=== PATIENT | female | born 1945 | race Caucasian/White ===

== ENCOUNTER 2023-02-01 14:14 | Inpatient (IN) | payer MEDICARE, SELFPAY ==
[2023-02-01] VITALS (37 sets, daily range): BP systolic 152–233; BP diastolic 52–159; PULSE 61–103; RESP 12–29; TEMP 36.6–37; O2SAT 90–100; BMI 25.2; BMI 25.1
--- NOTE | 2023-02-01 14:24 | CT_ITS ---
The [address] [address] Patient Name: ELIJAH WELCH MRN: [facility]:[id number] date: 1945 Sex: F Assigned Patient Location: ER Current Patient Location: ER Accession/Order Number: [id number] Exam Date: 02/01/2023 15:30 Report Date: 02/01/2023 16:12 At the request of: JANEEN PARKS Procedure: CT stroke head/brain wo con EXAM: CT stroke head/brain wo con HISTORY: Dizziness COMPARISON: None. TECHNIQUE: Axial CT images were obtained of the head without intravenous contrast. Multiplanar reconstructions were performed. FINDINGS: No acute intracranial hemorrhage. No acute loss of gold/white differentiation. Small chronic encephalomalacia noted in the right cerebellar lobe and the occipital lobe. There are mild patchy areas of deep white matter hypoattenuation, likely due to chronic ischemic microvascular disease. The ventricles and sulci are normal in appearance. The osseous structures are unremarkable. No soft tissue abnormality identified. The paranasal sinuses and mastoid air cells are clear. IMPRESSION: 1. No acute intracranial abnormality. 2. Small chronic areas of encephalomalacia in the right cerebellar and occipital lobes. 3. Mild patchy areas of chronic deep white matter disease, likely due to chronic ischemic microvascular disease. Findings were reported to Janeen Fernandez at 1610 hours on 02/01/2023. Electronically authenticated by: YE AARON Date: 02/01/2023 16:12
--- NOTE | 2023-02-01 14:24 | XR_ITS ---
The [address] [address] Patient Name: ELIJAH WELCH MRN: [id number] date: 1945 Sex: F Assigned Patient Location: ER Current Patient Location: ER Accession/Order Number: [id number] Exam Date: 02/01/2023 15:30 Report Date: 02/01/2023 16:11 At the request of: JANEEN PARKS Procedure: XR chest 1V EXAMINATION: XR chest 1V 02/01/2023 1:10 PM PDT HISTORY: Dizziness TECHNIQUE: Single frontal view of the chest acquired. COMPARISONS: Chest x-ray 09/10/2022. FINDINGS: Lines/tubes/other: Cardiac pulse generator overlies the left thorax with two leads terminating in the regions of the right atrium and right ventricle. Heart and mediastinum: Stable. Bones: No acute osseous abnormality. Lungs: Mild left basilar scarring, similar. No new pulmonary opacity. Pleura: There is no significant pleural effusion or pneumothorax. Other: None. IMPRESSION: No acute cardiopulmonary abnormality. Electronically authenticated by: CLARE SHAH Date: 02/01/2023 16:11
--- NOTE | 2023-02-01 14:26 | ED.DIZZY1 ---
HPI - Dizziness General Chief Complaint: Syncope Stated Complaint: syncope/ general weakness Time Seen by Provider: 02/01/23 14:24 Source: patient Mode of arrival: ambulance Limitations: no limitations History of Present Illness HPI Narrative: patient is a 77-year-old female with a history of CVA, myocardial infarction, chronic kidney disease who presents to the emergency department for the evaluation of dizziness that began after a shower. Patient states that she was in the shower when she began to feel very lightheaded, she denies a sensation of spinning but she states when she opens her eyes she feels lopsided. She denies pain. She has had no recent illness, fevers, chills, vomiting. She states she felt nauseous when the dizziness was more severe. She has not had any urinary symptoms. no medications given by EMS prior to arrival. She had no falls or injuries. She has had no peripheral paresthesias. Related Data Allergies Allergy/AdvReac Type Severity Reaction Status Date / Time meperidine [From Demerol] AdvReac Mild Verified 02/01/23 14:21 Review of Systems ROS Constitutional Denies: fever or chills Eyes Denies: change in vision or blurry vision Ears, nose, mouth, and throat Denies: throat pain or neck pain Cardiovascular Denies: chest pain Respiratory Denies: shortness of breath or cough Gastrointestinal Reports: nausea; Denies: vomiting Genitourinary Denies: painful urination Integumentary/Breast Denies: rash Neurological Reports: dizziness; Denies: headache, numbness in extremities, weakness in extremities, slurred speech or difficulty communicating thoughts Psychiatric Reports: anxiety Allergic/Immunologic Denies: hives [facility] Social History Smoking status: Never smoker Exam Narrative Exam Narrative: Gen.: Awake, alert, in no distress Head: Normocephalic, atraumatic ENT: Moist mucous membranes, resting with eyes closed Respiratory: No respiratory distress, lungs clear bilaterally Cardio: Regular rate and rhythm Extremities: Moves extremities equally, no injuries noted Psych: Normal mood and affect Neuro: No focal neuro deficit, clear speech Skin: Warm, dry, intact Constitutional Vital Signs - 24 hr 02/01/23 14:17 02/01/23 15:43 02/01/23 14:16 Temperature 97.8 F Pulse Rate 70 Pulse Rate [Monitor] 65 Respiratory Rate 24 29 H Blood Pressure 201/70 H Blood Pressure [Left Arm] 233/91 H Pulse Oximetry 100 99 Oxygen Delivery Method Room Air 02/01/23 14:20 02/01/23 14:21 02/01/23 14:32 Temperature Pulse Rate 68 69 63 Pulse Rate [Monitor] Respiratory Rate 22 20 17 Blood Pressure 233/91 H Blood Pressure [Left Arm] Pulse Oximetry 99 99 Oxygen Delivery Method 02/01/23 14:40 02/01/23 14:50 02/01/23 15:00 Temperature Pulse Rate 63 61 87 Pulse Rate [Monitor] Respiratory Rate 16 16 17 Blood Pressure Blood Pressure [Left Arm] Pulse Oximetry 97 100 100 Oxygen Delivery Method 02/01/23 15:10 02/01/23 15:15 02/01/23 15:16 Temperature Pulse Rate 63 68 64 Pulse Rate [Monitor] Respiratory Rate 17 23 14 Blood Pressure 207/132 H Blood Pressure [Left Arm] Pulse Oximetry 99 99 96 Oxygen Delivery Method 02/01/23 15:30 02/01/23 15:46 02/01/23 16:04 Temperature Pulse Rate 69 76 64 Pulse Rate [Monitor] Respiratory Rate 22 16 14 Blood Pressure 201/70 H 198/72 H 183/106 H Blood Pressure [Left Arm] Pulse Oximetry 96 97 95 Oxygen Delivery Method 02/01/23 16:15 02/01/23 16:30 02/01/23 16:45 Temperature Pulse Rate 69 61 79 Pulse Rate [Monitor] Respiratory Rate 12 13 13 Blood Pressure 187/81 H 185/75 H 181/68 H Blood Pressure [Left Arm] Pulse Oximetry 95 94 L 96 Oxygen Delivery Method 02/01/23 17:01 02/01/23 17:16 02/01/23 17:16 Temperature Pulse Rate 81 82 82 Pulse Rate [Monitor] Respiratory Rate 13 13 19 Blood Pressure 187/71 H 182/73 H 182/73 H Blood Pressure [Left Arm] Pulse Oximetry 95 94 L 94 L Oxygen Delivery Method 02/01/23 17:31 02/01/23 17:46 02/01/23 17:50 Temperature Pulse Rate 76 76 80 Pulse Rate [Monitor] Respiratory Rate 16 14 14 Blood Pressure 197/159 H 178/120 H 183/75 H Blood Pressure [Left Arm] Pulse Oximetry 92 L 91 L 91 L Oxygen Delivery Method Course Vital Signs Vital signs: Vital Signs Pulse Rate 70 02/01/23 14:16 Respiratory Rate 29 H 02/01/23 14:16 Pulse Oximetry 99 02/01/23 14:16 Temperature 97.8 F 02/01/23 14:17 Pulse Rate 80 02/01/23 17:50 Respiratory Rate 14 02/01/23 17:50 Blood Pressure 183/75 H 02/01/23 17:50 Pulse Oximetry 91 L 02/01/23 17:50 Oxygen Delivery Method Room Air 02/01/23 14:17 MDM - Dizziness MDM Narrative Medical decision making narrative: patient was sent for CT of the head with stroke protocol as well as a chest x-ray, these studies are unremarkable. Lab studies are stable for the patient also she was noted to have a significantly elevated troponin over two thousand. In the emergency department she did not complain of chest pain or shortness of breath, she had improvement with Antivert, Zofran. EKG was reviewed by attending physician. Patient sees cardiology at [facility], we contacted [facility] for transfer and they have a delay with obtaining a bed. Discussed the case with Dr. Wilks for cardiology, he recommended against a heparin drip but admission for blood pressure control. Patient was given hydralazine, Vasotec with improvement and was given additional labetalol for blood pressure improvement. At this time she is admitted pending admission and bed availability at [facility]. Medical Records Attestation: I reviewed the patient's medical records. Lab Data Attestation: I reviewed the patient's lab results. Labs: Lab Results 02/01/23 02/01/23 Range/Units 14:48 17:23 WBC 9.0 (4.0-11.0) 10^3/uL RBC 4.27 (4.20-5.40) 10^6/uL Hgb 12.4 (12.0-16.0) g/dL Hct 37.5 (36.0-48.0) % MCV 87.8 (81.0-99.0) fL MCH 29.0 (26.7-34.0) pg MCHC 33.1 (29.9-35.2) g/dL RDW 13.9 (11.0-15.0) % Plt Count 180 (150-450) 10^3/uL MPV 11.9 (9.5-13.5) fL Neut % (Auto) 81.0 H (43.0-75.0) % Lymph % (Auto) 10.1 L (20.5-60.0) % [place] % (Auto) 5.3 (1.7-12.0) % Eos % (Auto) 2.8 (0.9-7.0) % Baso % (Auto) 0.4 (0.2-2.0) % Neut # (Auto) 7.3 H (1.4-6.5) 10^3/uL Lymph # (Auto) 0.9 L (1.2-3.8) 10^3/uL [place] # (Auto) 0.5 (0.3-0.8) 10^3/uL Eos # (Auto) 0.3 (0.0-0.7) 10^3/uL Baso # (Auto) 0.0 (0.0-0.1) 10^3/uL Abs Immat Gran (auto) 0.04 H (0.00-0.03) 10^3/uL Imm/Tot Granulo (auto) 0.4 (0.0-0.5) % PT 11.9 H (9.0-11.6) sec INR 1.13 APTT 31.9 (22.3-36.2) sec Sodium 139 (136-145) mmol/L Potassium 4.1 (3.5-5.1) mmol/L Chloride 107 (98-107) mmol/L Carbon Dioxide 20.4 L (21.0-32.0) mmol/L Anion Gap 15.7 BUN 37.0 H (7.0-18.0) mg/dL Creatinine 1.54 H (0.55-1.02) mg/dL Est GFR ( Amer) 40 L (>=60) Est GFR (Non-Af Amer) 33 L (>=60) BUN/Creatinine Ratio 24.0 Glucose 170 H (74-106) mg/dL Lactate 1.8 (0.4-2.0) mmol/L Calcium 9.5 (8.5-10.1) mg/dL Total Bilirubin 1.1 H (0.2-1.0) mg/dL AST 22 (15-37) U/L ALT 21 (14-59) U/L Alkaline Phosphatase 127 H (46-116) U/L Troponin I High Sens 2409.2 H* 2327.1 H* (4.0-51.3) pg/mL Total Protein 7.9 (6.4-8.2) g/dL Albumin 3.8 (3.4-5.0) g/dL Globulin 4.1 g/dL Albumin/Globulin Ratio 0.9 ECG Data Attestation: I personally reviewed and interpreted this ECG as follows: (normal sinus rhythm at a rate of sixty-six with occasional PVC, no acute ST elevation. EKG reviewed by attending physician) ECG interpretation date: 02/01/23 ECG interpretation time: 14:30 Critical Care Time Critical Care Time Total Critical Care Time: 35 Discharge Plan Discharge Chief Complaint: Syncope Clinical Impression: Dizziness, Non-ST elevation LA (NSTEMI) Patient Disposition: Admitted as Observation Time of Disposition Decision: 17:18 Condition: Fair
[2023-02-01 15:01] LABS: Basophils Percent Auto 0.4 % (0.2-2.0); Eosinophils Absolute Auto 0.3 10^3/uL (0.0-0.7); Eosinophils Percent Auto 2.8 % (0.9-7.0); Hematocrit 37.5 % (36.0-48.0); Hemoglobin 12.4 g/dL (12.0-16.0); Immature Granulocytes Abs Auto 0.04 10^3/uL (0.00-0.03); Immature Granulocytes Pct Auto 0.4 % (0.0-0.5); Lymphocytes Absolute Auto 0.9 10^3/uL (1.2-3.8); Lymphocytes Percent Auto 10.1 % (20.5-60.0); Mean Corpuscular HGB Conc 33.1 g/dL (29.9-35.2); Mean Corpuscular Volume 87.8 fL (81.0-99.0); Mean Platelet Volume 11.9 fL (9.5-13.5); Monocytes Absolute Auto 0.5 10^3/uL (0.3-0.8); Monocytes Percent Auto 5.3 % (1.7-12.0); Neutrophils Absolute Auto 7.3 10^3/uL (1.4-6.5); Platelet Count 180 10^3/uL (150-450); Red Blood Count 4.27 10^6/uL (4.20-5.40); Red Cell Distribution Width 13.9 % (11.0-15.0)
[2023-02-01] MEDS: 0.9 % SODIUM CHLORIDE 1,000 ML 999 ML IV (15:12)
[2023-02-01] MEDS: ONDANSETRON PF 4 MG/2 ML VIAL IV (15:12)
[2023-02-01] MEDS: MECLIZINE HCL 12.5 MG TABLET 25 MG PO (15:12)
[2023-02-01 15:30] LABS: Lactate/Lactic Acid 1.8 mmol/L (0.4-2.0)
[2023-02-01 15:32] LABS: Alanine Aminotransferase 21 U/L (14-59); Albumin Globulin Ratio 0.9; Albumin Level 3.8 g/dL (3.4-5.0); Alkaline Phosphatase 127 U/L (46-116); Anion Gap 15.7; Aspartate Amino Transferase 22 U/L (15-37); Bilirubin Total 1.1 mg/dL (0.2-1.0); Calcium 9.5 mg/dL (8.5-10.1); Carbon Dioxide 20.4 mmol/L (21.0-32.0); Chloride 107 mmol/L (98-107); Estimated GFR (African America 40 (>=60); Estimated GFR (Non-African Ame 33 (>=60); Globulin 4.1 g/dL; Glucose 170 mg/dL (74-106); Potassium 4.1 mmol/L (3.5-5.1); Sodium 139 mmol/L (136-145); Total Protein 7.9 g/dL (6.4-8.2)
--- NOTE | 2023-02-01 15:39 | ECG_ITS ---
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
[2023-02-01] MEDS: HYDRALAZINE HCL 20 MG/ML VIAL 10 MG IVP ×2 (15:43→20:03)
--- NOTE | 2023-02-01 16:07 | ECG_ITS ---
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
[2023-02-01 16:11] LABS: INR 1.13; Partial Thromboplastin Time 31.9 sec (22.3-36.2); Prothrombin Time 11.9 sec (9.0-11.6)
--- NOTE | 2023-02-01 16:59 | CA_ITS ---
Patient: ELIJAH WELCH Exam Date: 02/02/2023 : 1945 Gender:F Ordering : SHAIKH Riri BEJARANO . Admission #: [id number] Family : DR TOÑO RED M.D. Order #: [id number] CLICK HERE TO VIEW EXAM ECHOCARDIOGRAM REPORT PROCEDURE: CA ECHO DOPPLER COMPLETE INDICATIONS: NSTEMI COMPARISON: None. DESCRIPTION: COMPLETE ECHOCARDIOGRAM Real-time transthoracic echocardiography with 2D, M-mode, spectral and color flow Doppler performed. QUALITY: Technical quality was good. LEFT VENTRICLE: Normal chamber size. Severe concentric left ventricular hypertrophy. Global left ventricular systolic function is normal. LV EF: Estimated left ventricular ejection fraction is 65%. DIASTOLIC: ATRIAL SEPTUM: LEFT ATRIUM: Severe dilatation. RIGHT ATRIUM: Moderate dilatation. RIGHT VENTRICLE: Normal chamber size. Normal right ventricular systolic function. Pacer wire present. TRICUSPID VALVE: Normal mobility and thickness. No stenosis with mild to moderate regurgitation. Severe pulmonary hypertension. RVSP 73 mmHg MITRAL VALVE: Normal mobility and thickness. No evidence of mitral valve stenosis. Moderate mitral annular calcification. Moderate mitral regurgitation. AORTIC VALVE: Normal trileaflet appearance. Severely calcified aortic valve. Severely diminished mobility. Doppler velocity suggest moderate to severe aortic valve stenosis. DVI 0.27, EILEEN 0.5 cm2, Vmax 3.44 m/s, Mean gradient 27 mmHg. Trivial aortic regurgitation. AORTIC ROOT: Normal diameter and appearance. Normal ascending aorta measuring 3.1 cm. PULMONIC VALVE: Normal thickness and mobility. No stenosis. Mild regurgitation. PERICARDIUM: No evidence of pericardial effusion. IVC: Normal size with partial collapse. PLEURA: CONCLUSION: 1. Severe concentric left ventricular hypertrophy with normal systolic function. LVEF is 65%. 2. Normal right ventricular size and systolic function. 3. Moderate to severe biatrial dilatation. 4. Moderate to severe aortic valve stenosis. 5. Moderate mitral regurgitation. 6. Mild to moderate tricuspid regurgitation. 7. Severely elevated right-sided pressures. 8. Doppler parameters are consistent with elevated filling pressures. Adult Echocardiography Procedure Report Left Ventricle LVEDD (3.7 - 5.6 cm): 4.09 cm LVESD (2.2 - 4.0 cm): 2.84 cm LVIVS thickness (0.6 - 1.2 cm): 1.61 cm LVPW thickness (0.5 - 1.0 cm): 1.39 cm e': 0.07 m/s E - e': 15.11 LVOT Max Gradient: 3.48 mm[Hg] LVOT Area (cm2): 0.93 m/s Peak Velocity (LVOT): 0.93 m/s Mean Velocity (LVOT): 0.73 m/s LVOT Diameter 1.60 cm Left Ventricular Ejection Fraction: 65 % Left Atrium LA Volume Index (2D A2C): 69.80 ml/m2 Left Atrium Systolic Dimension: 4.21 cm Mitral Valve MV E to A Ratio: 0.97 Mitral Valve A-Wave Peak Velocity: 1.15 m/s Mitral Valve E-Wave Peak Velocity: 1.12 m/s Right Ventricle RV Internal Diastolic Dimension: 3.97 cm Aorta AO Root Diam: 3.01 cm Ascending Ao Diam: 3.09 cm Aortic Valve AoV Area (Peak Ger): 0.55 cm2, 0.55 cm2 AoV Area (VTI): 0.60 cm2, 0.60 cm2 Peak Velocity(Antegrade Flow): 3.44 m/s Peak Gradient(Antegrade Flow): 47.24 mm[Hg] Mean Velocity(Antegrade Flow): 2.46 m/s Mean Gradient(Antegrade Flow): 27.41 mm[Hg] Velocity Time Integral: 89.95 cm Tricuspid Valve Peak Velocity (Regurgitant Flow): 3.51 m/s, 4.02 m/s, 3.49 m/s Pulmonic Valve Mean Gradient: 2.89 mm[Hg], 3.90 mm[Hg], 3.65 mm[Hg] Mean Velocity: 0.80 m/s, 0.96 m/s, 0.90 m/s Peak Velocity: 1.24 m/s Peak Gradient: 5.23 mm[Hg], 6.31 mm[Hg], 6.82 mm[Hg] Right Atrium Right Atrium Systolic Pressure: 68.30 ml, 68.30 ml Dictated by: Toño Red M.D. on 02/02/2023 at 18:31 Approved by: Toño Red M.D. on 02/02/2023 at 18:39
[2023-02-01] MEDS: LABETALOL HCL 20 MG/4 ML SYRINGE IVP (17:31)
[2023-02-01 17:57] LABS: Troponin I High Sensitivity 2327.1 pg/mL (4.0-51.3)
[2023-02-01 18:45] LABS: Cholesterol 131 mg/dL (<=200); HDL Cholesterol 44 mg/dL (40-60); LDL Cholesterol Calculated 60.8 mg/dL; Triglycerides 131 mg/dL (<=150); VLDL CHOLESTEROL 26.2 mg/dL
[2023-02-01] MEDS: LACTATED RINGER'S SOLUTION 1,000 ML 100 ML IV (19:57)
[2023-02-01] MEDS: ASPIRIN 81 MG TAB.CHEW PO (20:28)
[2023-02-01] MEDS: ENOXAPARIN SODIUM 40 MG/0.4 ML SYRINGE SUBQ (20:29)
[2023-02-01] MEDS: MORPHINE SULFATE 2 MG/ML SYRINGE IV (21:16)
[2023-02-01 22:37] LABS: Troponin I High Sensitivity 2109.7 pg/mL (4.0-51.3)
[2023-02-02] VITALS (27 sets, daily range): BP systolic 140–214; BP diastolic 64–112; PULSE 60–98; RESP 6–29; TEMP 36.2–36.7; O2SAT 94–100
[2023-02-02 04:40] LABS: Basophils Percent Auto 0.3 % (0.2-2.0); Eosinophils Absolute Auto 0.1 10^3/uL (0.0-0.7); Eosinophils Percent Auto 0.8 % (0.9-7.0); Hematocrit 34.6 % (36.0-48.0); Hemoglobin 11.1 g/dL (12.0-16.0); Immature Granulocytes Abs Auto 0.02 10^3/uL (0.00-0.03); Immature Granulocytes Pct Auto 0.3 % (0.0-0.5); Lymphocytes Absolute Auto 1.6 10^3/uL (1.2-3.8); Lymphocytes Percent Auto 20.6 % (20.5-60.0); Mean Corpuscular HGB Conc 32.1 g/dL (29.9-35.2); Mean Corpuscular Hemoglobin 28.8 pg (26.7-34.0); Mean Corpuscular Volume 89.9 fL (81.0-99.0); Mean Platelet Volume 12.2 fL (9.5-13.5); Monocytes Absolute Auto 0.5 10^3/uL (0.3-0.8); Monocytes Percent Auto 6.8 % (1.7-12.0); Neutrophils Absolute Auto 5.5 10^3/uL (1.4-6.5); Neutrophils Percent Auto 71.2 % (43.0-75.0); Platelet Count 180 10^3/uL (150-450); Red Blood Count 3.85 10^6/uL (4.20-5.40); Red Cell Distribution Width 14.2 % (11.0-15.0); White Blood Count 7.8 10^3/uL (4.0-11.0)
[2023-02-02 04:58] LABS: Alanine Aminotransferase 11 U/L (14-59); Albumin Globulin Ratio 0.8; Alkaline Phosphatase 103 U/L (46-116); Anion Gap 15.4; Aspartate Amino Transferase 20 U/L (15-37); BUN Creatinine Ratio 21.8; Bilirubin Total 0.7 mg/dL (0.2-1.0); Calcium 8.8 mg/dL (8.5-10.1); Carbon Dioxide 21.5 mmol/L (21.0-32.0); Chloride 107 mmol/L (98-107); Estimated GFR (African America 43 (>=60); Estimated GFR (Non-African Ame 36 (>=60); Globulin 3.7 g/dL; Glucose 130 mg/dL (74-106); Potassium 3.9 mmol/L (3.5-5.1); Sodium 140 mmol/L (136-145); Total Protein 6.7 g/dL (6.4-8.2)
[2023-02-02] MEDS: LACTATED RINGER'S SOLUTION 1,000 ML 100 ML IV ×2 (06:42→15:16)
[2023-02-02 11:25] LABS: Bilirubin Urine NEGATIVE (NEGATIVE); Blood Urine NEGATIVE (NEGATIVE); Clarity Urine CLEAR (CLEAR); Color Urine LT. YELLOW (YELLOW); Glucose Urine UA NEGATIVE (NEGATIVE); Ketones Urine 15 mg/dL (NEGATIVE); Leukocyte Esterase Urine NEGATIVE (NEGATIVE); Nitrite Urine NEGATIVE (NEGATIVE); Protein Urine 30 mg/dL (NEG/TRACE); Specific Gravity Urine 1.025 (1.005-1.025); Urobilinogen Urine 0.2 EU/dL (0.2-1.0); pH Urine 5.5 (5.0-9.0)
[2023-02-02 11:26] LABS: Urine Microscopic Indicated YES
[2023-02-02 11:34] LABS: Cast Seen? SEEN #/LPF (NONE SEEN); Crystals Seen? None Seen #/HPF (None Seen); Hyaline Casts Urine RARE; RBC Urine 0-2 #/HPF (0-2); Squamous Epithelial Cell Urine RARE #/LPF (NONE/RARE); Urine Culture Indicated NO; WBC Urine 0-2 #/HPF (NONE SEEN)
[2023-02-02 11:35] LABS: Bacteria Urine NONE SEEN #/HPF (NONE SEEN); Mucus Urine NONE SEEN (NONE SEEN)
--- NOTE | 2023-02-02 12:01 | CM.NOTE ---
Rounds made with Dr. Cloud, awaiting bed at [facility].
[2023-02-02] MEDS: CARVEDILOL 25 MG TABLET PO ×2 (12:07→17:57)
--- NOTE | 2023-02-02 12:09 | SWNOTE1 ---
Pt is being transferred to [facility].
--- NOTE | 2023-02-02 13:07 | PM.HP ---
H&P: HPI History of Present Illness Chief complaint: Dizziness Narrative: 77 y o female in her usual state of health felt sudden onset dizziness while trying to get out her bath along with nausea and diaphoresis. She felt like she was going to pass out but did not lose consciousness. Prior to this, she was in her usual state of health and denies any symptoms concerning for active cardiac ischemia. She also reports other than difficult to control HTN, she was doing well and fairly healthy. Her dizziness has now resolved. W/u in ED showed sig elevated Troponins along with accelerated HTN. Case was d/w [facility] cardiology and patient was accepted for transfer to [facility] for LHC but due to bed availability, she was admitted to ICU for close monitoring and medical management until bed becomes available for transfer Review of Systems ROS Status of ROS 10 or more systems reviewed and unremarkable except as noted in history and below PFSH PFS Medical History Surgical History Family History Mother Family history of diabetes mellitus Family history of hypertension Family history of myocardial infarction Social History Within the past year, how often did you have a drink containing alcohol: never Score interpretation: A score less than 3 is consistent with normal alcohol consumption. Smoking status: Never smoker Non-prescribed substance use: denies use Meds Home Medications and Allergies Home Medications Medication Instructions Recorded Confirmed Type atorvastatin 80 mg tablet 80 mg PO .qhs 02/02/23 02/02/23 History carvedilol 25 mg tablet 25 mg PO Q12H 02/02/23 02/02/23 History cholecalciferol (vitamin D3) PO DAILY 02/02/23 History clopidogrel 75 mg tablet 75 mg PO DAILY 02/02/23 02/02/23 History docusate sodium 100 mg capsule 100 mg PO .sunday and 02/02/23 02/02/23 History (Stool Softener) flash glucose scanning reader 02/02/23 02/02/23 History (FreeStyle Stephy 2 [place]) flash glucose sensor (FreeStyle 02/02/23 02/02/23 History Stephy 2 Sensor kit) hydralazine 25 mg tablet 25 mg PO Q12H 02/02/23 02/02/23 History lisinopril 20 mg tablet 20 mg PO DAILY hypertension 02/02/23 02/02/23 History melatonin PO BEDTIME PRN insomnia 02/02/23 History nifedipine 30 mg tablet,extended 30 mg PO DAILY 02/02/23 02/02/23 History release Allergies Allergy/AdvReac Type Severity Reaction Status Date / Time meperidine [From Demerol] AdvReac Mild Verified 02/01/23 14:21 Exam Constitutional Vital Signs - 24 hr 02/01/23 14:17 02/01/23 15:43 02/01/23 14:16 Temperature 97.8 F Pulse Rate 70 Pulse Rate [Monitor] 65 Respiratory Rate 24 29 H Blood Pressure 201/70 H Blood Pressure [Left Arm] 233/91 H Pulse Oximetry 100 99 Oxygen Delivery Method Room Air 02/01/23 14:20 02/01/23 14:21 02/01/23 14:32 Temperature Pulse Rate 68 69 63 Pulse Rate [Monitor] Respiratory Rate 22 20 17 Blood Pressure 233/91 H Blood Pressure [Left Arm] Pulse Oximetry 99 99 Oxygen Delivery Method 02/01/23 14:40 02/01/23 14:50 02/01/23 15:00 Temperature Pulse Rate 63 61 87 Pulse Rate [Monitor] Respiratory Rate 16 16 17 Blood Pressure Blood Pressure [Left Arm] Pulse Oximetry 97 100 100 Oxygen Delivery Method 02/01/23 15:10 02/01/23 15:15 02/01/23 15:16 Temperature Pulse Rate 63 68 64 Pulse Rate [Monitor] Respiratory Rate 17 23 14 Blood Pressure 207/132 H Blood Pressure [Left Arm] Pulse Oximetry 99 99 96 Oxygen Delivery Method 02/01/23 15:30 02/01/23 15:46 02/01/23 16:04 Temperature Pulse Rate 69 76 64 Pulse Rate [Monitor] Respiratory Rate 22 16 14 Blood Pressure 201/70 H 198/72 H 183/106 H Blood Pressure [Left Arm] Pulse Oximetry 96 97 95 Oxygen Delivery Method 02/01/23 16:15 02/01/23 16:30 02/01/23 16:45 Temperature Pulse Rate 69 61 79 Pulse Rate [Monitor] Respiratory Rate 12 13 13 Blood Pressure 187/81 H 185/75 H 181/68 H Blood Pressure [Left Arm] Pulse Oximetry 95 94 L 96 Oxygen Delivery Method 02/01/23 17:01 02/01/23 17:16 02/01/23 17:16 Temperature Pulse Rate 81 82 82 Pulse Rate [Monitor] Respiratory Rate 13 13 19 Blood Pressure 187/71 H 182/73 H 182/73 H Blood Pressure [Left Arm] Pulse Oximetry 95 94 L 94 L Oxygen Delivery Method 02/01/23 17:31 02/01/23 17:46 02/01/23 17:50 Temperature Pulse Rate 76 76 80 Pulse Rate [Monitor] Respiratory Rate 16 14 14 Blood Pressure 197/159 H 178/120 H 183/75 H Blood Pressure [Left Arm] Pulse Oximetry 92 L 91 L 91 L Oxygen Delivery Method 02/01/23 18:44 02/01/23 18:44 02/01/23 20:03 Temperature 98.6 F 98.6 F Pulse Rate 96 H 82 Pulse Rate [Monitor] Respiratory Rate 16 16 Blood Pressure 181/98 H Blood Pressure [Left Arm] 190/92 H 190/92 H Pulse Oximetry 95 92 L Oxygen Delivery Method Room Air Room Air 02/01/23 20:08 02/01/23 19:20 02/02/23 00:15 Temperature Pulse Rate Pulse Rate [Monitor] 84 84 Respiratory Rate 16 14 Blood Pressure Blood Pressure [Left Arm] Pulse Oximetry 93 L 99 Oxygen Delivery Method Room Air Room Air 02/01/23 17:50 02/01/23 18:00 02/01/23 18:16 Temperature Pulse Rate 78 78 81 Pulse Rate [Monitor] Respiratory Rate 14 12 15 Blood Pressure 183/75 H 191/76 H 185/78 H Blood Pressure [Left Arm] Pulse Oximetry 92 L 92 L 92 L Oxygen Delivery Method 02/01/23 18:30 02/01/23 18:37 02/01/23 18:37 Temperature Pulse Rate 75 103 H 81 Pulse Rate [Monitor] Respiratory Rate 15 16 16 Blood Pressure 190/92 H Blood Pressure [Left Arm] Pulse Oximetry 94 L 92 L 90 L Oxygen Delivery Method 02/01/23 18:37 02/01/23 19:35 02/01/23 20:11 Temperature Pulse Rate 82 92 H 84 Pulse Rate [Monitor] Respiratory Rate 15 15 16 Blood Pressure 190/92 H 181/98 H 152/77 H Blood Pressure [Left Arm] Pulse Oximetry 94 L 92 L 95 Oxygen Delivery Method 02/01/23 21:09 02/01/23 21:33 02/02/23 00:34 Temperature Pulse Rate 88 83 84 Pulse Rate [Monitor] Respiratory Rate 28 H 16 15 Blood Pressure 155/52 H 153/102 H 152/79 H Blood Pressure [Left Arm] Pulse Oximetry 97 95 Oxygen Delivery Method 02/01/23 20:00 02/01/23 22:00 02/02/23 00:00 Temperature Pulse Rate 88 88 90 Pulse Rate [Monitor] Respiratory Rate Blood Pressure Blood Pressure [Left Arm] Pulse Oximetry 99 96 Oxygen Delivery Method 02/02/23 00:34 02/02/23 04:15 02/02/23 04:00 Temperature Pulse Rate 75 77 Pulse Rate [Monitor] 84 Respiratory Rate 15 14 Blood Pressure 152/79 H Blood Pressure [Left Arm] Pulse Oximetry 94 L 96 Oxygen Delivery Method 02/02/23 00:34 02/02/23 04:32 02/02/23 06:00 Temperature Pulse Rate 77 76 78 Pulse Rate [Monitor] Respiratory Rate 16 17 Blood Pressure 152/79 H 156/70 H Blood Pressure [Left Arm] Pulse Oximetry 96 96 Oxygen Delivery Method 02/02/23 04:32 02/02/23 08:00 02/02/23 09:00 Temperature 98.1 F Pulse Rate 70 71 70 Pulse Rate [Monitor] Respiratory Rate 15 15 Blood Pressure 156/70 H Blood Pressure [Left Arm] 156/70 H Pulse Oximetry 96 95 Oxygen Delivery Method Room Air 02/02/23 09:00 Temperature 98.1 F Pulse Rate Pulse Rate [Monitor] Respiratory Rate Blood Pressure Blood Pressure [Left Arm] Pulse Oximetry Oxygen Delivery Method Documenting provider has reviewed patient's vital signs: yes Common normals: no apparent distress and well nourished General appearance: cooperative and comfortable HENNC Common normals: normocephalic and head/scalp atraumatic Tympanic membrane: other (Right ear exam c/w otitis media - cloudy colored fluid behind TM) Eye Common normals: PERRL, EOMs intact bilaterally, conjunctivae normal and no scleral icterus Respiratory Common normals: normal respiratory effort, no use of accessory muscles and clear to auscultation bilaterally Effort & inspection: able to speak in complete sentences Cardio Common normals: no JVD, regular rate, regular rhythm, S1 normal heart sound, S2 normal heart sound and no murmurs GI Common normals: Normal to inspection, nondistended, normoactive bowel sounds present, soft to palpation, non-tender and no hepatosplenomegaly Extremity Common normals: normal to inspection and full ROM Neuro Common normals: oriented x3, CN's II-XII intact bilaterally, moves all extremities and no focal motor deficits Coordination/balance: [id number] test normal Speech: speech normal Coordination: rapid alternating movement UE normal Psych Common normals: mental status grossly normal, thought process normal, cooperative, denies homicidal ideation and denies suicidal ideation Results Labs Labs: Short CBC 02/01/23 02/02/23 Range/Units 14:48 04:05 WBC 9.0 7.8 (4.0-11.0) 10^3/uL Hgb 12.4 11.1 L (12.0-16.0) g/dL Hct 37.5 34.6 L (36.0-48.0) % Plt Count 180 180 (150-450) 10^3/uL BMP 02/01/23 02/02/23 14:48 04:05 Sodium 139 140 Potassium 4.1 3.9 Chloride 107 107 Carbon Dioxide 20.4 L 21.5 BUN 37.0 H 31.0 H Creatinine 1.54 H 1.42 H Glucose 170 H 130 H Calcium 9.5 8.8 Liver Function 02/01/23 02/02/23 Range/Units 14:48 04:05 Total Bilirubin 1.1 H 0.7 (0.2-1.0) mg/dL AST 22 20 (15-37) U/L ALT 21 11 L (14-59) U/L Alkaline Phosphatase 127 H 103 (46-116) U/L Albumin 3.8 3.0 L (3.4-5.0) g/dL Urine 02/01/23 Range/Units 06:50 Urine Color Lt. yellow (YELLOW) Urine Clarity Clear (CLEAR) Urine pH 5.5 (5.0-9.0) Ur Specific [place] 1.025 (1.005-1.025) Urine Protein 30 A (NEG/TRACE) mg/dL Urine Glucose (UA) Negative (NEGATIVE) mg/dL Assessment and Plan Assessment and Plan (1) Hypertensive emergency: Assessment and Plan: Presented with BP above 200/100 and needed IV medications in ED. BP reasonably well controlled on her home BP meds. HTN emergency as symptomatic, NSTEMI. C/w home meds for now. Will adjust as needed. She was started on Lisinopril by her Distributor Sales Manager recently and told me that her blood pressure has been slowly creeping up ever since she had Pacemaker placement earlier this year (2) Non-ST elevation [place] (NSTEMI): Assessment and Plan: hx of CAD s/p CABG. She has not had any ischemic work up since then and no hospital admissions for CP/CAD She denies CP, SOB, palpitations or any symptoms concerning for underlying CAD and has been doing well. Suspect this could be T2 demand ischemia due to accelerated HTN. She did not receive anticoagulation for it after d/w field technical support consultant cardiology. Currently on ASA, Plavix and statin. Afib on tele. No sig PVCs, NSVT or malignant arhythmia noted on tele. 2D ECHO to assess cardiac structure. Awaiting bed availability. (3) Dizziness: Assessment and Plan: Vertigo along with nausea. Resolved now. No accompanying neurological symptoms. No cerebellar signs. CTH negative for acute intracranial pathology. No resp symptoms but evidence of otitis media on ear exam. Likely peripheral vertigo and will be treated with oral Augmentin x 7 days (4) CAD (coronary artery disease): Assessment and Plan: s/p CABG 2014. Admitted for NSTEMI. On ASA, plavix and statin. No AC as per cardiology. Qualifiers: Coronary Disease-Associated Artery/Lesion type: [place] artery [place] vs. 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 Monitor (6) Afib: Assessment and Plan: In and out of afib. s/p PPM earlier this year. Patient is unsure if it was inserted due to Afib. She is also not on AC for stroke px and I am not sure why thats the case. Qualifiers: Atrial fibrillation type: paroxysmal Qualified Code(s): I48.0 - Paroxysmal atrial fibrillation (7) Diabetes 1.5, managed as type 2: Assessment and Plan: Not on meds. Diet controlled. (8) Otitis media: Assessment and Plan: Right otitis media, likely responsible for her vertigo/dizziness. Started on Oral Augmentin Qualifiers: Otitis media type: suppurative Chronicity: acute Laterality: right Recurrence: non-recurrent Spontaneous tympanic membrane rupture: without spontaneous rupture Qualified Code(s): H66.001 - Acute suppurative otitis media without spontaneous rupture of ear drum, right ear (9) H/O TIA (transient ischemic attack) and stroke: Assessment and Plan: Prior hx of TIA. No residual deficit. On appropriate meds (10) HLD (hyperlipidemia): Assessment and Plan: on Lipitor. LDL at goal (11) History of breast cancer: Assessment and Plan: s/p mastectomy and chemo. In remission
--- NOTE | 2023-02-02 14:17 | CM.NOTE ---
Important Message From Medicare discussed with pt, pt verbalizes understanding. Original given to pt and copy placed on pt's chart.
[2023-02-02 14:35] LABS: Troponin I High Sensitivity 1923.6 pg/mL (4.0-51.3)
[2023-02-02] MEDS: NIFEdipine 30 MG TAB.ER.24 PO (15:14)
[2023-02-02] MEDS: LISINOPRIL 20 MG TABLET PO (15:15)
[2023-02-02] MEDS: HYDRALAZINE HCL 25 MG TABLET PO (15:15)
[2023-02-02] MEDS: ENOXAPARIN SODIUM 40 MG/0.4 ML SYRINGE SUBQ (17:04)
[2023-02-02] MEDS: HYDRALAZINE HCL 20 MG/ML VIAL 10 MG IVP (17:12)
[2023-02-02] MEDS: CLOPIDOGREL BISULFATE 75 MG TABLET PO (21:46)
[2023-02-02] MEDS: ATORVASTATIN CALCIUM 40 MG TABLET 80 MG PO (21:46)
[2023-02-02] MEDS: ASPIRIN 81 MG TAB.CHEW PO (21:47)
[2023-02-02 21:54] LABS: Glucometer 103 mg/dL (74-106)
[2023-02-03] VITALS (21 sets, daily range): BP systolic 154–169; BP diastolic 63–80; PULSE 62–81; RESP 7–18; TEMP 36.6–36.7; O2SAT 95–98
[2023-02-03] MEDS: HYDRALAZINE HCL 25 MG TABLET PO ×2 (01:25→13:45)
[2023-02-03] MEDS: LACTATED RINGER'S SOLUTION 1,000 ML 100 ML IV ×3 (01:26→21:28)
[2023-02-03 04:40] LABS: Basophils Percent Auto 0.6 % (0.2-2.0); Eosinophils Absolute Auto 0.5 10^3/uL (0.0-0.7); Eosinophils Percent Auto 7.3 % (0.9-7.0); Hematocrit 33.8 % (36.0-48.0); Hemoglobin 11.1 g/dL (12.0-16.0); Immature Granulocytes Abs Auto 0.01 10^3/uL (0.00-0.03); Immature Granulocytes Pct Auto 0.1 % (0.0-0.5); Lymphocytes Absolute Auto 1.6 10^3/uL (1.2-3.8); Lymphocytes Percent Auto 23.5 % (20.5-60.0); Mean Corpuscular HGB Conc 32.8 g/dL (29.9-35.2); Mean Corpuscular Hemoglobin 29.1 pg (26.7-34.0); Mean Corpuscular Volume 88.5 fL (81.0-99.0); Mean Platelet Volume 11.9 fL (9.5-13.5); Monocytes Absolute Auto 0.6 10^3/uL (0.3-0.8); Monocytes Percent Auto 8.2 % (1.7-12.0); Neutrophils Percent Auto 60.3 % (43.0-75.0); Platelet Count 164 10^3/uL (150-450); Red Blood Count 3.82 10^6/uL (4.20-5.40); Red Cell Distribution Width 14.3 % (11.0-15.0); White Blood Count 6.7 10^3/uL (4.0-11.0)
[2023-02-03 05:01] LABS: Alanine Aminotransferase 14 U/L (14-59); Albumin Globulin Ratio 0.9; Albumin Level 2.8 g/dL (3.4-5.0); Alkaline Phosphatase 91 U/L (46-116); Anion Gap 13.6; Aspartate Amino Transferase 18 U/L (15-37); BUN Creatinine Ratio 22.6; Bilirubin Total 0.9 mg/dL (0.2-1.0); Calcium 8.5 mg/dL (8.5-10.1); Carbon Dioxide 22.3 mmol/L (21.0-32.0); Chloride 108 mmol/L (98-107); Estimated GFR (African America 47 (>=60); Estimated GFR (Non-African Ame 39 (>=60); Globulin 3.1 g/dL; Glucose 82 mg/dL (74-106); Potassium 3.9 mmol/L (3.5-5.1); Sodium 140 mmol/L (136-145); Total Protein 5.9 g/dL (6.4-8.2)
[2023-02-03] MEDS: NIFEdipine 30 MG TAB.ER.24 PO (08:33)
[2023-02-03] MEDS: LISINOPRIL 20 MG TABLET PO (08:33)
[2023-02-03] MEDS: CLOPIDOGREL BISULFATE 75 MG TABLET PO (08:33)
[2023-02-03] MEDS: CARVEDILOL 25 MG TABLET PO ×2 (08:33→17:15)
--- NOTE | 2023-02-03 10:23 | PT.DAILY ---
Physical Therapy Daily Note PT Daily Note/Assess Start: 02/03/23 10:20 Freq: Status: Active Protocol: Document 02/03/23 08:25 NEOSHELLEYMANNY (Rec: 02/03/23 10:23 MARGARET [id number]) Physical Therapy Daily Note/Assessment Time In/Time Out Time In 08:26 Time Out 08:36 Pain In Pain N/A Pain Out Pain N/A Subjective Subjective Pt reports main complaint is dizziness/light headed feeling from ear infection. Agrees to PT. Wants to move around. Therapeutic Exercise Time Therapeutic Exercise Minutes (minutes) 5 Therapeutic Exercise Units 0 Therapeutic Exercise Treatment Therapeutic Exercise Treatment Seated ex complete while sitting in BS chair - AP, LAQ, marches, abd step outs, add squeezes 10x to improve strength. Therapeutic Activity Time Therapeutic Activity Minutes (minutes) 5 Therapeutic Activity Units 1 Therapeutic Activity Treatment Chair Transfer Ability Contact Guard Assist Therapeutic Activity Comments Pt sit>stand to IV pole CGA. Amb 200' with IV pole CGA for safety. Occ dizziness reported . Slow garima noticed. Min fatigue upon completion. Returned to BS chair with call light in reach and need met. Total Physical Therapy Time Total Therapy Minutes 10 Total Physical Therapy Units 1 Summary Daily Note Summary Cont to have dizziness. Improved gait endurance but used IV pole for stability today.
--- NOTE | 2023-02-03 13:16 | P.PN_ITS ---
Progress Note: Subjective Subjective Interval history: Patient slightly better this am. Continues to have mild chest tightness. No SOB. Feels lightheaded when up and moving. BP stable on home medication. Normal appetite and no emesis or diarrhea. Still awaiting a bet at [facility] for transfer Exam Constitutional Vital Signs - 24 hr 02/02/23 13:39 02/02/23 17:00 02/02/23 15:14 Temperature Pulse Rate 98 H 68 Pulse Rate [Monitor] Respiratory Rate 20 16 Blood Pressure 193/86 H Blood Pressure [Left Arm] 140/78 H Pulse Oximetry 100 Oxygen Delivery Method Room Air 02/02/23 15:15 02/02/23 14:06 02/02/23 15:14 Temperature Pulse Rate 69 60 Pulse Rate [Monitor] Respiratory Rate 18 14 Blood Pressure 193/86 H 187/84 H 193/86 H Blood Pressure [Left Arm] Pulse Oximetry Oxygen Delivery Method 02/02/23 17:12 02/02/23 15:14 02/02/23 16:58 Temperature Pulse Rate 66 67 Pulse Rate [Monitor] Respiratory Rate 18 16 Blood Pressure 209/88 H 193/86 H 187/112 H Blood Pressure [Left Arm] Pulse Oximetry Oxygen Delivery Method 02/02/23 17:06 02/02/23 21:40 02/02/23 20:00 Temperature Pulse Rate 63 81 Pulse Rate [Monitor] Respiratory Rate 6 L Blood Pressure 214/89 H Blood Pressure [Left Arm] Pulse Oximetry 94 L Oxygen Delivery Method Room Air 02/02/23 22:00 02/03/23 00:00 02/02/23 17:07 Temperature Pulse Rate 74 71 68 Pulse Rate [Monitor] Respiratory Rate 14 Blood Pressure 209/88 H Blood Pressure [Left Arm] Pulse Oximetry Oxygen Delivery Method 02/02/23 17:50 02/02/23 19:16 02/02/23 19:48 Temperature 97.2 F L Pulse Rate 66 64 Pulse Rate [Monitor] Respiratory Rate 29 H 17 Blood Pressure 197/89 H 180/84 H 176/64 H Blood Pressure [Left Arm] Pulse Oximetry 95 96 97 Oxygen Delivery Method 02/02/23 21:56 02/02/23 23:00 02/03/23 02:00 Temperature Pulse Rate 65 68 Pulse Rate [Monitor] 74 Respiratory Rate 9 L 14 Blood Pressure 170/82 H Blood Pressure [Left Arm] Pulse Oximetry 95 Oxygen Delivery Method 02/02/23 21:56 02/03/23 01:26 02/03/23 03:45 Temperature Pulse Rate 70 75 Pulse Rate [Monitor] Respiratory Rate 16 11 L Blood Pressure 170/82 H 169/68 H Blood Pressure [Left Arm] Pulse Oximetry 97 95 95 Oxygen Delivery Method Room Air 02/03/23 04:00 02/03/23 04:00 02/03/23 01:26 Temperature Pulse Rate 68 71 Pulse Rate [Monitor] 66 Respiratory Rate 14 14 Blood Pressure 169/68 H Blood Pressure [Left Arm] Pulse Oximetry 97 Oxygen Delivery Method 02/03/23 04:22 02/03/23 06:00 02/03/23 08:35 Temperature 98.1 F Pulse Rate 69 67 76 Pulse Rate [Monitor] Respiratory Rate 8 L 18 Blood Pressure 164/63 H 166/73 H Blood Pressure [Left Arm] Pulse Oximetry 95 96 Oxygen Delivery Method 02/03/23 12:12 02/03/23 12:20 Temperature 98.1 F Pulse Rate 77 Pulse Rate [Monitor] 63 Respiratory Rate 18 18 Blood Pressure 160/74 H Blood Pressure [Left Arm] Pulse Oximetry 97 Oxygen Delivery Method Documenting provider has reviewed patient's vital signs: yes Common normals: no apparent distress, oriented x3 and alert HENMT Common normals: normocephalic Eye Common normals: PERRL and EOMs intact bilaterally Respiratory Common normals: clear to auscultation bilaterally Cardio Common normals: regular rate and regular rhythm Heart sounds: murmur (IV/) systolic GI Common normals: Normal to inspection, nondistended, normoactive bowel sounds present and non-tender Extremity General: no edema Progress Note: Objective Labs Labs: Short CBC 02/03/23 Range/Units 04:15 WBC 6.7 (4.0-11.0) 10^3/uL Hgb 11.1 L (12.0-16.0) g/dL Hct 33.8 L (36.0-48.0) % Plt Count 164 (150-450) 10^3/uL BMP 02/03/23 04:15 Sodium 140 Potassium 3.9 Chloride 108 H Carbon Dioxide 22.3 BUN 30.0 H Creatinine 1.33 H Glucose 82 Calcium 8.5 Liver Function 02/03/23 Range/Units 04:15 Total Bilirubin 0.9 (0.2-1.0) mg/dL AST 18 (15-37) U/L ALT 14 (14-59) U/L Alkaline Phosphatase 91 (46-116) U/L Albumin 2.8 L (3.4-5.0) g/dL Progress Note: A&P Assessment and Plan (1) Hypertensive emergency: (2) Non-ST elevation [place] (NSTEMI): (3) Dizziness: (4) CAD (coronary artery disease): Qualifiers: Coronary Disease-Associated Artery/Lesion type: [place] artery [place] vs. transplanted heart: [place] heart Associated angina: without angina Qualified Code(s): I25.10 - Atherosclerotic heart disease of [place] coronary artery without angina pectoris (5) CKD stage 3 due to type 2 diabetes mellitus: (6) Afib: Qualifiers: Atrial fibrillation type: paroxysmal Qualified Code(s): I48.0 - Par oxysmal atrial fibrillation (7) Diabetes 1.5, managed as type 2: (8) Otitis media: Qualifiers: Otitis media type: suppurative Chronicity: acute Laterality: right Recurrence: non-recurrent Spontaneous tympanic membrane rupture: without spontaneous rupture Qualified Code(s): H66.001 - Acute suppurative otitis media without spontaneous rupture of ear drum, right ear (9) H/O TIA (transient ischemic attack) and stroke: (10) HLD (hyperlipidemia): (11) History of breast cancer: Plan 1. NSTEMI 2. Hypertensive emergency 3. CAD 4. Paroxysmal afib 5. DM2 with hyperglycemia 6. HTN 7. CKD 3a Patient stable this am. BP improved with home medication and monitor. Troponin improved. Labs normal. Still awaiting bed at [facility] for transfer.
[2023-02-03] MEDS: ENOXAPARIN SODIUM 40 MG/0.4 ML SYRINGE SUBQ (17:15)
[2023-02-03 17:17] LABS: Glucometer 87 mg/dL (74-106)
[2023-02-03] MEDS: ASPIRIN 81 MG TAB.CHEW PO (20:44)
[2023-02-03 20:45] LABS: Glucometer 219 mg/dL (74-106)
[2023-02-03] MEDS: ATORVASTATIN CALCIUM 40 MG TABLET 80 MG PO (21:29)
[2023-02-03 23:42] LABS: Glucometer 169 mg/dL (74-106)
[2023-02-04] VITALS (19 sets, daily range): BP systolic 126–178; BP diastolic 73–98; PULSE 61–84; RESP 12–18; TEMP 36.3–36.7; O2SAT 94–99
[2023-02-04] MEDS: HYDRALAZINE HCL 25 MG TABLET PO ×2 (01:35→14:33)
[2023-02-04 05:34] LABS: Basophils Percent Auto 0.5 % (0.2-2.0); Eosinophils Absolute Auto 0.6 10^3/uL (0.0-0.7); Eosinophils Percent Auto 9.3 % (0.9-7.0); Hematocrit 35.7 % (36.0-48.0); Hemoglobin 11.5 g/dL (12.0-16.0); Immature Granulocytes Abs Auto 0.01 10^3/uL (0.00-0.03); Immature Granulocytes Pct Auto 0.2 % (0.0-0.5); Lymphocytes Absolute Auto 1.3 10^3/uL (1.2-3.8); Lymphocytes Percent Auto 20.2 % (20.5-60.0); Mean Corpuscular HGB Conc 32.2 g/dL (29.9-35.2); Mean Corpuscular Volume 90.2 fL (81.0-99.0); Mean Platelet Volume 12.3 fL (9.5-13.5); Monocytes Absolute Auto 0.6 10^3/uL (0.3-0.8); Monocytes Percent Auto 8.4 % (1.7-12.0); Neutrophils Percent Auto 61.4 % (43.0-75.0); Platelet Count 176 10^3/uL (150-450); Red Blood Count 3.96 10^6/uL (4.20-5.40); Red Cell Distribution Width 13.8 % (11.0-15.0); White Blood Count 6.6 10^3/uL (4.0-11.0)
[2023-02-04 05:59] LABS: Alanine Aminotransferase 18 U/L (14-59); Albumin Globulin Ratio 0.8; Albumin Level 2.9 g/dL (3.4-5.0); Alkaline Phosphatase 106 U/L (46-116); Anion Gap 12.9; Aspartate Amino Transferase 19 U/L (15-37); BUN Creatinine Ratio 24.4; Bilirubin Total 0.7 mg/dL (0.2-1.0); Calcium 8.9 mg/dL (8.5-10.1); Carbon Dioxide 26.1 mmol/L (21.0-32.0); Chloride 106 mmol/L (98-107); Estimated GFR (African America 51 (>=60); Estimated GFR (Non-African Ame 42 (>=60); Globulin 3.5 g/dL; Glucose 102 mg/dL (74-106); Sodium 141 mmol/L (136-145); Total Protein 6.4 g/dL (6.4-8.2)
[2023-02-04] MEDS: CLOPIDOGREL BISULFATE 75 MG TABLET PO (08:28)
[2023-02-04] MEDS: LISINOPRIL 20 MG TABLET PO (08:28)
[2023-02-04] MEDS: NIFEdipine 30 MG TAB.ER.24 PO (08:28)
[2023-02-04] MEDS: CARVEDILOL 25 MG TABLET PO ×2 (08:29→18:11)
[2023-02-04] MEDS: LACTATED RINGER'S SOLUTION 1,000 ML 100 ML IV (08:29)
--- NOTE | 2023-02-04 09:01 | PT.DAILY ---
Physical Therapy Daily Note PT Daily Note/Assess Start: 02/03/23 10:20 Freq: Status: Active Protocol: Document 02/04/23 09:00 MARGARET (Rec: 02/04/23 09:01 MARGARET [id number]) Visit Not Completed Visit Not Completed Visit Not Completed Due to: Pt refusing,Other Other Reason Visit Not Completed Pt did not sleep well last night and would like to rest. Pt has been walking with nursing when available. Was just up to restroom before laying down. Follow up tomorrow. Physical Therapy Daily Note/Assessment Time In/Time Out Time In 08:20 Time Out 08:23 GG. Functional Abilities and Goals-Complete for Swing Bed Patients Only [id number]. Self-Care [id number]. Mobility
[2023-02-04 13:42] LABS: Glucometer 109 mg/dL (74-106)
--- NOTE | 2023-02-04 13:44 | P.PN_ITS ---
Progress Note: Subjective Subjective Interval history: Patient stable this am. Continues to have mild chest tightness. C/o pain in mid back and worse with movement or inspiration. No SOB. Feels lightheaded when up and moving. BP remains slightly elevated on home medication. Normal appetite and no emesis or diarrhea. Still awaiting a bet at [facility] for transfer Exam Constitutional Vital Signs - 24 hr 02/03/23 14:24 02/03/23 16:06 02/03/23 16:13 Temperature Pulse Rate 81 70 Pulse Rate [Monitor] 72 Respiratory Rate 18 Blood Pressure Pulse Oximetry Oxygen Delivery Method 02/03/23 16:33 02/03/23 17:31 02/03/23 20:11 Temperature Pulse Rate 72 78 67 Pulse Rate [Monitor] Respiratory Rate 15 Blood Pressure 164/80 H Pulse Oximetry Oxygen Delivery Method 02/03/23 20:11 02/03/23 20:11 02/03/23 22:00 Temperature 97.8 F Pulse Rate 67 69 Pulse Rate [Monitor] 67 Respiratory Rate 16 16 Blood Pressure 160/78 H Pulse Oximetry 98 Oxygen Delivery Method 02/04/23 00:00 02/04/23 00:00 02/04/23 00:00 Temperature 98.1 F Pulse Rate 63 64 Pulse Rate [Monitor] 63 Respiratory Rate 16 16 Blood Pressure 154/86 H Pulse Oximetry 98 Oxygen Delivery Method 02/04/23 08:00 02/04/23 08:00 02/04/23 02:00 Temperature Pulse Rate 68 68 67 Pulse Rate [Monitor] Respiratory Rate 18 Blood Pressure 174/85 H Pulse Oximetry 98 Oxygen Delivery Method 02/04/23 02:55 02/04/23 02:55 02/04/23 04:00 Temperature Pulse Rate 69 61 Pulse Rate [Monitor] 69 Respiratory Rate Blood Pressure Pulse Oximetry Oxygen Delivery Method 02/03/23 16:33 02/03/23 21:31 02/04/23 04:00 Temperature 97.4 F L Pulse Rate 78 62 65 Pulse Rate [Monitor] Respiratory Rate 14 7 L 12 Blood Pressure 164/80 H 154/72 H 165/82 H Pulse Oximetry 96 Oxygen Delivery Method Room Air 02/04/23 06:00 02/04/23 08:28 02/04/23 08:28 Temperature Pulse Rate 66 Pulse Rate [Monitor] Respiratory Rate Blood Pressure 174/85 H 174/85 H Pulse Oximetry Oxygen Delivery Method 02/04/23 10:00 02/04/23 10:00 02/04/23 12:00 Temperature Pulse Rate 78 73 Pulse Rate [Monitor] 78 Respiratory Rate 18 Blood Pressure Pulse Oximetry Oxygen Delivery Method 02/04/23 12:00 Temperature 97.8 F Pulse Rate 73 Pulse Rate [Monitor] Respiratory Rate 16 Blood Pressure 178/98 H Pulse Oximetry 98 Oxygen Delivery Method Documenting provider has reviewed patient's vital signs: yes Common normals: no apparent distress and alert HENID Common normals: normocephalic Eye Common normals: PERRL and EOMs intact bilaterally Respiratory Common normals: normal respiratory effort and clear to auscultation bilaterally Cardio Common normals: regular rate, regular rhythm, no gallops, no murmurs and no rub GI Common normals: Normal to inspection, nondistended, normoactive bowel sounds present and non-tender Extremity General: no edema Progress Note: Objective Labs Labs: Short CBC 02/04/23 Range/Units 04:13 WBC 6.6 (4.0-11.0) 10^3/uL Hgb 11.5 L (12.0-16.0) g/dL Hct 35.7 L (36.0-48.0) % Plt Count 176 (150-450) 10^3/uL BMP 02/04/23 04:13 Sodium 141 Potassium 4.0 Chloride 106 Carbon Dioxide 26.1 BUN 30.0 H Creatinine 1.23 H Glucose 102 Calcium 8.9 Liver Function 02/04/23 Range/Units 04:13 Total Bilirubin 0.7 (0.2-1.0) mg/dL AST 19 (15-37) U/L ALT 18 (14-59) U/L Alkaline Phosphatase 106 (46-116) U/L Albumin 2.9 L (3.4-5.0) g/dL Progress Note: A&P Assessment and Plan (1) Hypertensive emergency: (2) Non-ST elevation SC (NSTEMI): (3) Dizziness: (4) CAD (coronary artery disease): Qualifiers: Associated angina: without angina Coronary Disease-Associated Artery/Lesion type: [place] artery [place] vs. 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 NSTEMI? 2. Hypertensive emergency? 3. CAD? 4. Paroxysmal afib? 5. DM2 with hyperglycemia? 6. HTN? 7. CKD 3a Patient stable this am.? BP elevated and increase hydralazine to TID.? Labs normal.? Still awaiting bed at [facility] for transfer.
--- NOTE | 2023-02-04 16:57 | PM.DS1 ---
DS: Providers Provider Date of admission: 02/01/23 18:58 Primary care physician: Sudha Lubin MD Consults: 02/01/23 17:05 Consult to Cardiology Routine Consulting Provider: Andrew Kearney 02/02/23 11:47 Occupational Therapy Eval and Treat Routine Physical Therapy Eval and Treat Routine DS: Diagnosis Discharge Diagnosis (1) Hypertensive emergency: (2) Non-ST elevation [place] (NSTEMI): (3) Dizziness: (4) CAD (coronary artery disease): Qualifiers: Coronary Disease-Associated Artery/Lesion type: [place] artery [place] vs. transplanted heart: [place] heart Associated angina: without angina Qualified Code(s): I25.10 - Atherosclerotic heart disease of [place] coronary artery without angina pectoris (5) CKD stage 3 due to type 2 diabetes mellitus: (6) Afib: Qualifiers: Atrial fibrillation type: paroxysmal Qualified Code(s): I48.0 - Paroxysmal atrial fibrillation (7) Diabetes 1.5, managed as type 2: (8) Otitis media: Qualifiers: Otitis media type: suppurative Chronicity: acute Laterality: right Recurrence: non-recurrent Spontaneous tympanic membrane rupture: without spontaneous rupture Qualified Code(s): H66.001 - Acute suppurative otitis media without spontaneous rupture of ear drum, right ear (9) H/O TIA (transient ischemic attack) and stroke: (10) HLD (hyperlipidemia): (11) History of breast cancer: Plan Primary diagnosis: Hypertensive emergency Secondary diagnosis: 1. NSTEMI 2. CAD 3. Paroxyasmal afib 4. DM2 with hyperglycemia 5. HTN 6. CKD 3a DS: Summary Hospital Course Hospital Course: Reason for admission: See ER note and H&P for details. 77 y/o female to ER with lightheadedness. Patient in shower and felt off balance. Very lightheaded and felt like may pass out. To ER and BP 233/95. CT head negative. Troponin elevated at 2409. Contacted cardiology at [facility] and accepted for transfer but no beds available. Admitted for treatment. Hospital course: Resumed home medication. Repeat troponin improved. BP improved with home meds and IV medication. No chest pain but mild heaviness. Vitals stable. BP elevated but improved. Bed available and transferred to [facility] in stable condition. Time Spent with Patient Time attestation: Total time spent providing and/or coordinating discharge services: Quality: Stroke Symptom Onset Unknown: No Exam Constitutional Vital Signs - 24 hr 02/03/23 17:31 02/03/23 20:11 02/03/23 20:11 Temperature Pulse Rate 78 67 Pulse Rate [Monitor] 67 Respiratory Rate 16 Blood Pressure Pulse Oximetry Oxygen Delivery Method 02/03/23 20:11 02/03/23 22:00 02/04/23 00:00 Temperature 97.8 F Pulse Rate 67 69 Pulse Rate [Monitor] 63 Respiratory Rate 16 16 Blood Pressure 160/78 H Pulse Oximetry 98 Oxygen Delivery Method 02/04/23 00:00 02/04/23 00:00 02/04/23 08:00 Temperature 98.1 F Pulse Rate 63 64 68 Pulse Rate [Monitor] Respiratory Rate 16 Blood Pressure 154/86 H Pulse Oximetry 98 Oxygen Delivery Method 02/04/23 08:00 02/04/23 02:00 02/04/23 02:55 Temperature Pulse Rate 68 67 Pulse Rate [Monitor] 69 Respiratory Rate 18 Blood Pressure 174/85 H Pulse Oximetry 98 Oxygen Delivery Method 02/04/23 02:55 02/04/23 04:00 02/03/23 21:31 Temperature Pulse Rate 69 61 62 Pulse Rate [Monitor] Respiratory Rate 7 L Blood Pressure 154/72 H Pulse Oximetry Oxygen Delivery Method 02/04/23 04:00 02/04/23 06:00 02/04/23 08:28 Temperature 97.4 F L Pulse Rate 65 66 Pulse Rate [Monitor] Respiratory Rate 12 Blood Pressure 165/82 H 174/85 H Pulse Oximetry 96 Oxygen Delivery Method Room Air 02/04/23 08:28 02/04/23 10:00 02/04/23 10:00 Temperature Pulse Rate 78 Pulse Rate [Monitor] 78 Respiratory Rate 18 Blood Pressure 174/85 H Pulse Oximetry Oxygen Delivery Method 02/04/23 12:00 02/04/23 12:00 02/04/23 14:00 Temperature 97.8 F Pulse Rate 73 73 Pulse Rate [Monitor] 78 Respiratory Rate 16 16 Blood Pressure 178/98 H Pulse Oximetry 98 Oxygen Delivery Method 02/04/23 14:00 02/04/23 16:00 02/04/23 16:00 Temperature 97.8 F Pulse Rate 78 78 78 Pulse Rate [Monitor] Respiratory Rate 18 Blood Pressure 156/87 H Pulse Oximetry 94 L Oxygen Delivery Method 02/04/23 14:33 Temperature Pulse Rate Pulse Rate [Monitor] Respiratory Rate Blood Pressure 177/81 H Pulse Oximetry Oxygen Delivery Method Documenting provider has reviewed patient's vital signs: yes Common normals: no apparent distress, oriented x3 and alert HENMT Common normals: normocephalic Eye Common normals: PERRL and EOMs intact bilaterally Respiratory Common normals: clear to auscultation bilaterally Cardio Common normals: regular rate, regular rhythm, no gallops, no murmurs and no rub GI Common normals: Normal to inspection, nondistended, normoactive bowel sounds present and non-tender Extremity General: no edema DS: Data Data Completed and Pending Labs on day of discharge: Labs from last 24 hours 02/04/23 02/04/23 02/03/23 13:40 04:13 23:41 WBC 6.6 RBC 3.96 L Hgb 11.5 L Hct 35.7 L MCV 90.2 MCH 29.0 MCHC 32.2 RDW 13.8 Plt Count 176 MPV 12.3 Neut % (Auto) 61.4 Lymph % (Auto) 20.2 L [place] % (Auto) 8.4 Eos % (Auto) 9.3 H Baso % (Auto) 0.5 Neut # (Auto) 4.0 Lymph # (Auto) 1.3 [place] # (Auto) 0.6 Eos # (Auto) 0.6 Baso # (Auto) 0.0 Abs Immat Gran (auto) 0.01 Imm/Tot Granulo (auto) 0.2 Sodium 141 Potassium 4.0 Chloride 106 Carbon Dioxide 26.1 Anion Gap 12.9 BUN 30.0 H Creatinine 1.23 H Est GFR ( Amer) 51 L Est GFR (Non-Af Amer) 42 L BUN/Creatinine Ratio 24.4 Glucose 102 Calcium 8.9 Total Bilirubin 0.7 AST 19 ALT 18 Alkaline Phosphatase 106 Total Protein 6.4 Albumin 2.9 L Globulin 3.5 Albumin/Globulin Ratio 0.8 POC Glucose 109 H 169 H 02/03/23 02/03/23 20:44 17:16 WBC RBC Hgb Hct MCV MCH MCHC RDW Plt Count MPV Neut % (Auto) Lymph % (Auto) [place] % (Auto) Eos % (Auto) Baso % (Auto) Neut # (Auto) Lymph # (Auto) [place] # (Auto) Eos # (Auto) Baso # (Auto) Abs Immat Gran (auto) Imm/Tot Granulo (auto) Sodium Potassium Chloride Carbon Dioxide Anion Gap BUN Creatinine Est GFR ( Amer) Est GFR (Non-Af Amer) BUN/Creatinine Ratio Glucose Calcium Total Bilirubin AST ALT Alkaline Phosphatase Total Protein Albumin Globulin Albumin/Globulin Ratio POC Glucose 219 H 87 Discharge Plan Discharge Disposition: Xfer Acute Care Hospital Condition: Fair
== END 2023-02-04 21:16 | disposition short-term general hospital (02) | DRG 282 ==
LOC: ER 18:25 → ICU 18:42
PROVIDERS: Physician Assistant; Admitting Provider Family Medicine; Emergency Provider Emergency Medicine; PCP Family Medicine; Visit Provider Internal Medicine
DX: I16.1 Hypertensive emergency (principal); I21.4 Non-ST elevation (NSTEMI) myocardial infarction; R42 Dizziness and giddiness; I25.10 Atherosclerotic heart disease of native coronary artery without angina pectoris; I48.0 Paroxysmal atrial fibrillation; E13.22 Other specified diabetes mellitus with diabetic chronic kidney disease; N18.31 Chronic kidney disease, stage 3a; E13.65 Other specified diabetes mellitus with hyperglycemia; E78.5 Hyperlipidemia, unspecified; H66.001 Acute suppurative otitis media without spontaneous rupture of ear drum, right ear; Z86.73 Personal history of transient ischemic attack (TIA), and cerebral infarction without residual deficits; Z85.3 Personal history of malignant neoplasm of breast; I25.2 Old myocardial infarction; Z88.5 Allergy status to narcotic agent; Z83.3 Family history of diabetes mellitus; Z82.49 Family history of ischemic heart disease and other diseases of the circulatory system; Z79.02 Long term (current) use of antithrombotics/antiplatelets; Z79.82 Long term (current) use of aspirin; Z79.899 Other long term (current) drug therapy; Z95.0 Presence of cardiac pacemaker; Z95.1 Presence of aortocoronary bypass graft; Z92.21 Personal history of antineoplastic chemotherapy; Z90.10 Acquired absence of unspecified breast and nipple
CPT/HCPCS: 36415; 70450; 71045; 80053; 80061; 81003; 81015; 82948; 83605; 84484; 85025; 85610; 85730; 93005; 93306; 94761; 96361; 96372; 96374; 96375; 96376; 97161; 97165; 97530; 99285

== ENCOUNTER 2023-02-17 12:50 | Emergency (ER) | payer MEDICARE, SELFPAY ==
[2023-02-17] VITALS (32 sets, daily range): BP systolic 114–158; BP diastolic 50–73; PULSE 62–131; RESP 9–31; TEMP 37; O2SAT 95–98; BMI 24.0
--- NOTE | 2023-02-17 13:13 | ECG_ITS ---
The [facility] Test Date: 2023-02-17 Pat Name: ELIJAH WELCH Department: Room: - Gender: Female Psychologist Experimental: : 1945 Requested By: [id number] Order Number: [id number] Reading MD: CARLA SHANKAR Measurements Intervals [place] Rate: 62 P: 46 LA: 198 QRS: 16 QRSD: 140 T: 72 QT: 472 QTc: 478 Interpretive Statements 1100 Sinus rhythm 2550 Left bundle branch block 9150 abnormal ECG Compared to ECG 02/01/2023 15:39:29 Myocardial infarct finding no longer present Electronically Signed On 02-17-2023 14:37:09 EDT by CARLA SHANKAR
--- NOTE | 2023-02-17 13:13 | XR_ITS ---
[address] [address] Patient Name: ELIJAH WELCH MRN: [id number] date: 1945 Sex: F Assigned Patient Location: ER Current Patient Location: ER Accession/Order Number: [id number] Exam Date: 02/17/2023 13:27 Report Date: 02/17/2023 13:54 At the request of: JOVANNA ALEGRIA Procedure: XR chest 1V EXAM: XR chest 1V HISTORY: dizziness COMPARISON: 02/01/2023 TECHNIQUE: Single view of the chest FINDINGS: Heart size normal. No focal consolidation, pleural effusion, pulmonary congestion or pneumothorax. Left chest cardiac device and leads. Sternotomy wires. XR/XR chest 1V IMPRESSION: No acute findings. Electronically authenticated by: LONNIE MILLS Date: 02/17/2023 13:54
--- NOTE | 2023-02-17 13:15 | ED.DIZZY1 ---
HPI - Dizziness General Chief Complaint: Dizziness Stated Complaint: NAUSEA Time Seen by Provider: 02/17/23 13:13 Source: patient and family Mode of arrival: ambulance Limitations: no limitations History of Present Illness HPI Narrative: Presents to emergency department complaining of dizziness and weakness. Patient states 3 weeks ago she was hospitalized here and subsequently transferred to [facility] with an NSTEMI. Patient has a history of quadruple bypass years ago. She states she had a heart catheterization during her last hospitalization at [facility]. The patient had 2 graft occlusions that they were treating medically. Patient was also found to have aortic stenosis and she has an appointment next week for a ELENA. The patient had lisinopril dosage doubled from 20 mg to 40 mg daily and she was started on spironolactone. Patient denies any vomiting states she's been nauseated. She denies any abdominal pain. She denies any flank pain, hematuria, dysuria. She denies any shortness of breath. She states she has a lot of weakness and no chest pain. She denies any headache, paresthesias, or paralysis. She denies any visual disturbance, or speech difficulties.She denies any fever, chills, or cough. She denies any upper respiratory infection symptoms. Related Data Home Medications Medication Instructions Recorded Confirmed atorvastatin 80 mg tablet 80 mg PO .qhs 02/02/23 02/02/23 carvedilol 25 mg tablet 25 mg PO Q12H 02/02/23 02/02/23 cholecalciferol (vitamin D3) 2,000 unit PO DAILY 02/02/23 02/02/23 clopidogrel 75 mg tablet 75 mg PO DAILY 02/02/23 02/02/23 docusate sodium 100 mg capsule 100 mg PO .sunday and 02/02/23 02/02/23 (Stool Softener) flash glucose scanning reader 02/02/23 02/02/23 (FreeStyle Stephy 2 [place]) flash glucose sensor (FreeStyle 02/02/23 02/02/23 Stephy 2 Sensor kit) hydralazine 25 mg tablet 25 mg PO Q12H 02/02/23 02/02/23 lisinopril 20 mg tablet 20 mg PO DAILY hypertension 02/02/23 02/02/23 nifedipine 30 mg tablet,extended 30 mg PO DAILY 02/02/23 02/02/23 release calcitriol 0.25 mcg capsule mcg 02/17/23 lisinopril 40 mg tablet mg 02/17/23 nifedipine 60 mg tablet,extended mg PO 02/17/23 release spironolactone 25 mg tablet mg 02/17/23 Allergies Allergy/AdvReac Type Severity Reaction Status Date / Time meperidine [From Demerol] AdvReac Mild Verified 02/01/23 14:21 Review of Systems ROS Status of ROS 10 or more systems reviewed and unremarkable except as noted in history and below [facility] Medical History Surgical History Family History Mother Family history of diabetes mellitus Family history of hypertension Family history of myocardial infarction Social History Within the past year, how often did you have a drink containing alcohol: never Score interpretation: A score less than 3 is consistent with normal alcohol consumption. Smoking status: Never smoker Non-prescribed substance use: denies use Exam Narrative Exam Narrative: Nurses notes and vital signs reviewed and patient is not hypoxic. General: Nontoxic, Chronically ill and in no apparent distress. Skin: Warm, dry, mild pallor noted. No Rash Head: Normocephalic, atraumatic. Neck: Supple, non-tender. Eye: Pupils are equal, round and EOMI. No scleral icterus. Ears, Nose, Mouth, and Throat: TM clear, no posterior oropharynx erythema or nasal mucosal hypertrophy, uvula is mid-line Oral mucosa is moist Cardiovascular: Regular Rate and Rhythm, +3 systolic ejection murmur. Respiratory: No accessory muscle use or respiratory distress. Lungs are clear to auscultation, no wheezing, rales or rhonchi Chest Wall: no tenderness Back: No midline thoracic or lumbar vertebral tenderness. No CVA tenderness Musculoskeletal: normal ROM, no calf or popliteal tenderness, no lower extremity edema/swelling GI: Abdomen is soft, non-distended. Normal bowel sounds. No masses appreciated. No tenderness to palpation. No rebound, guarding, or rigidity noted. Neurological: A&O x4. No cranial nerve dysfunction observed. No truncal ataxia. Moves all extremities. Psychiatric: Cooperative and interactive. Normal mood and affect. Constitutional Vital Signs, click to edit/add: Last Vital Signs Temp 98.6 F 02/17/23 12:36 Pulse 70 02/17/23 18:45 Resp 24 02/17/23 18:45 BP 140/66 H 02/17/23 18:45 Pulse Ox 98 02/17/23 18:45 O2 Del Method Room Air 02/17/23 12:36 Course Vital Signs Vital signs: Vital Signs Temperature 98.6 F 02/17/23 12:36 Pulse Rate 62 02/17/23 12:36 Respiratory Rate 14 02/17/23 12:36 Blood Pressure 114/50 L 02/17/23 12:36 Pulse Oximetry 95 02/17/23 12:36 Oxygen Delivery Method Room Air 02/17/23 12:36 Temperature 98.6 F 02/17/23 12:36 Pulse Rate 70 02/17/23 18:45 Respiratory Rate 24 02/17/23 18:45 Blood Pressure 140/66 H 02/17/23 18:45 Pulse Oximetry 98 02/17/23 18:45 Oxygen Delivery Method Room Air 02/17/23 12:36 MDM - Dizziness MDM Narrative Medical decision making narrative: in were done which showed the patient to be hyperkalemic. her troponin was elevated. kidney function tests has worsened since her previous admission. Discussed the findings with the patient and with Dr. Allred who advised the patient does not need to be transferred at this point from cardiology standpoint to [facility]. He says the patient can be continued to obtain like dehydration monitor here and transfer her if there is any further need or if there is a Clinical change. The patient was discussed with Dr. Reyes who advised she does not feel comfortable admitting this patient here as the patient needs multiple specialties. [facility] was contacted and at this point they do not have a bed and could only place the patient on a waiting list. This was discussed with Dr. 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 At this point I have no other option than to transfer the patient to another higher level of care. Patient will be discussed with joshua and sign out at the end of my shift to Dr. Castillo, awaiting transfer. The patient is hemodynamically stable. Repeat troponin remained stable. Her potassium improved after insulin, dextrose, bicarbonate, and Kayexalate. The patient was discussed at the end of my shift with Dr. Hernandez from [facility] who has accepted the patient in transfer. Patient signed out to Dr. Castillo awaiting transfer. Differential Diagnosis Differential diagnosis: Likely adverse reaction to drug Medical Records Attestation: I reviewed the patient's medical records. Lab Data Attestation: I reviewed the patient's lab results. Labs: Lab Results 02/17/23 02/17/23 02/17/23 Range/Units 13:49 14:08 15:48 WBC 8.1 (4.0-11.0) 10^3/uL RBC 4.05 L (4.20-5.40) 10^6/uL Hgb 11.7 L (12.0-16.0) g/dL Hct 36.5 (36.0-48.0) % MCV 90.1 (81.0-99.0) fL MCH 28.9 (26.7-34.0) pg MCHC 32.1 (29.9-35.2) g/dL RDW 14.1 (11.0-15.0) % Plt Count 211 (150-450) 10^3/uL MPV 11.8 (9.5-13.5) fL Neut % (Auto) 73.3 (43.0-75.0) % Lymph % (Auto) 14.6 L (20.5-60.0) % [place] % (Auto) 5.6 (1.7-12.0) % Eos % (Auto) 5.7 (0.9-7.0) % Baso % (Auto) 0.6 (0.2-2.0) % Neut # (Auto) 5.9 (1.4-6.5) 10^3/uL Lymph # (Auto) 1.2 (1.2-3.8) 10^3/uL [place] # (Auto) 0.5 (0.3-0.8) 10^3/uL Eos # (Auto) 0.5 (0.0-0.7) 10^3/uL Baso # (Auto) 0.1 (0.0-0.1) 10^3/uL Abs Immat Gran (auto) 0.02 (0.00-0.03) 10^3/uL Imm/Tot Granulo (auto) 0.2 (0.0-0.5) % Sodium 136 (136-145) mmol/L Potassium 6.3 H* 5.3 H (3.5-5.1) mmol/L Chloride 104 (98-107) mmol/L Carbon Dioxide 22.6 (21.0-32.0) mmol/L Anion Gap 15.7 BUN 43.0 H (7.0-18.0) mg/dL Creatinine 2.14 H (0.55-1.02) mg/dL Est GFR ( Amer) 27 L (>=60) Est GFR (Non-Af Amer) 22 L (>=60) BUN/Creatinine Ratio 20.1 Glucose 164 H (74-106) mg/dL Lactate 0.7 (0.4-2.0) mmol/L Calcium 8.9 (8.5-10.1) mg/dL Magnesium 2.1 (1.8-2.4) mg/dL Total Bilirubin 0.8 (0.2-1.0) mg/dL AST 20 (15-37) U/L ALT 23 (14-59) U/L Alkaline Phosphatase 108 (46-116) U/L Troponin I High Sens 307.4 H* 279.4 H* (4.0-51.3) pg/mL Total Protein 7.1 (6.4-8.2) g/dL Albumin 3.4 (3.4-5.0) g/dL Globulin 3.7 g/dL Albumin/Globulin Ratio 0.9 Lipase 166.0 (73.0-393.0) U/L Urine Color Lt. yellow (YELLOW) Urine Clarity Clear (CLEAR) Urine pH 6.0 (5.0-9.0) Ur Specific [place] 1.015 (1.005-1.025) Urine Protein Negative (NEG/TRACE) mg/dL Urine Glucose (UA) Negative (NEGATIVE) mg/dL Urine Ketones Negative (NEGATIVE) mg/dL Urine Occult Blood Negative (NEGATIVE) Urine Nitrite Negative (NEGATIVE) Urine Bilirubin Negative (NEGATIVE) Urine Urobilinogen 0.2 (0.2-1.0) EU/dL Ur Leukocyte Esterase Trace A (NEGATIVE) ECG Data Attestation: I personally reviewed and interpreted this ECG as follows: Interpretation: Sinus rhythm 62 beats per minutes. Hyperacute T waves, no acute ischemic changes. Left bundle branch block. Critical Care Time Critical Care Time Critical Care Time: Yes Total Critical Care Time: 35 Attestation: Critical Care Time: 35 minutes, critical care time is separate from any procedures that are performed. The following was considered in the determination of critical care but not limited to the level medical decision-making, intensive cardiac and/or respiratory monitor, frequent vital sign monitoring, evaluation of laboratory studies, evaluation of a radiographic studies, oxygen monitoring and constant monitoring. Discharge Plan Discharge Chief Complaint: Dizziness Clinical Impression: Acute kidney injury, Elevated troponin I level, Dizziness, Acute hyperkalemia Patient Disposition: [facility] Time of Disposition Decision: 18:33 Discharge Location: [facility] Condition: Good Mode of Transportation: EMS
[2023-02-17 14:02] LABS: Basophils Absolute Auto 0.1 10^3/uL (0.0-0.1); Basophils Percent Auto 0.6 % (0.2-2.0); Eosinophils Absolute Auto 0.5 10^3/uL (0.0-0.7); Eosinophils Percent Auto 5.7 % (0.9-7.0); Hematocrit 36.5 % (36.0-48.0); Hemoglobin 11.7 g/dL (12.0-16.0); Immature Granulocytes Abs Auto 0.02 10^3/uL (0.00-0.03); Immature Granulocytes Pct Auto 0.2 % (0.0-0.5); Lymphocytes Absolute Auto 1.2 10^3/uL (1.2-3.8); Lymphocytes Percent Auto 14.6 % (20.5-60.0); Mean Corpuscular HGB Conc 32.1 g/dL (29.9-35.2); Mean Corpuscular Hemoglobin 28.9 pg (26.7-34.0); Mean Corpuscular Volume 90.1 fL (81.0-99.0); Mean Platelet Volume 11.8 fL (9.5-13.5); Monocytes Absolute Auto 0.5 10^3/uL (0.3-0.8); Monocytes Percent Auto 5.6 % (1.7-12.0); Neutrophils Absolute Auto 5.9 10^3/uL (1.4-6.5); Neutrophils Percent Auto 73.3 % (43.0-75.0); Platelet Count 211 10^3/uL (150-450); Red Blood Count 4.05 10^6/uL (4.20-5.40); Red Cell Distribution Width 14.1 % (11.0-15.0); White Blood Count 8.1 10^3/uL (4.0-11.0)
[2023-02-17 14:17] LABS: Lactate/Lactic Acid 0.7 mmol/L (0.4-2.0)
[2023-02-17 14:18] LABS: Alanine Aminotransferase 23 U/L (14-59); Albumin Globulin Ratio 0.9; Albumin Level 3.4 g/dL (3.4-5.0); Alkaline Phosphatase 108 U/L (46-116); Anion Gap 15.7; Aspartate Amino Transferase 20 U/L (15-37); BUN Creatinine Ratio 20.1; Bilirubin Total 0.8 mg/dL (0.2-1.0); Calcium 8.9 mg/dL (8.5-10.1); Carbon Dioxide 22.6 mmol/L (21.0-32.0); Chloride 104 mmol/L (98-107); Estimated GFR (African America 27 (>=60); Estimated GFR (Non-African Ame 22 (>=60); Globulin 3.7 g/dL; Glucose 164 mg/dL (74-106); Magnesium 2.1 mg/dL (1.8-2.4); Sodium 136 mmol/L (136-145); Total Protein 7.1 g/dL (6.4-8.2)
[2023-02-17 14:21] LABS: Potassium 6.3 mmol/L (3.5-5.1); Troponin I High Sensitivity 307.4 pg/mL (4.0-51.3)
[2023-02-17 14:23] LABS: Bilirubin Urine NEGATIVE (NEGATIVE); Blood Urine NEGATIVE (NEGATIVE); Clarity Urine CLEAR (CLEAR); Color Urine LT. YELLOW (YELLOW); Glucose Urine UA NEGATIVE (NEGATIVE); Ketones Urine NEGATIVE (NEGATIVE); Leukocyte Esterase Urine TRACE (NEGATIVE); Nitrite Urine NEGATIVE (NEGATIVE); Protein Urine NEGATIVE (NEG/TRACE); Specific Gravity Urine 1.015 (1.005-1.025); Urobilinogen Urine 0.2 EU/dL (0.2-1.0)
[2023-02-17] MEDS: DEXTROSE 50 %-WATER 25 GM/50 ML SYRINGE IV (15:00)
[2023-02-17] MEDS: SODIUM POLYSTYRENE SULFON 15 GM/60 ML ORAL.SUSP KAYEXALATE 30 GM PO (15:09)
[2023-02-17] MEDS: INSULIN REGULAR 300 UNITS/3 ML 10 UNIT INJ (15:10)
[2023-02-17 16:19] LABS: Potassium 5.3 mmol/L (3.5-5.1)
[2023-02-17 16:22] LABS: Troponin I High Sensitivity 279.4 pg/mL (4.0-51.3)
--- NOTE | 2023-02-17 16:25 | PC.NURSE ---
trop- 279.4; physician notified.
== END 2023-02-17 21:09 | disposition short-term general hospital (02) ==
PROVIDERS: Emergency Provider Emergency Medicine; PCP Family Medicine
DX: N17.9 Acute kidney failure, unspecified (principal); R77.8 Other specified abnormalities of plasma proteins; R42 Dizziness and giddiness; E87.5 Hyperkalemia; I44.7 Left bundle-branch block, unspecified; I21.4 Non-ST elevation (NSTEMI) myocardial infarction; I35.0 Nonrheumatic aortic (valve) stenosis; Z79.899 Other long term (current) drug therapy
CPT/HCPCS: 36415; 71045; 80053; 81003; 83605; 83690; 83735; 84132; 84484; 85025; 93005; 96374; 99285

== ENCOUNTER 2023-02-27 09:53 | Outpatient (OUT) | payer MEDICARE, SELFPAY ==
[2023-02-27 12:01] LABS: Creatinine Urine Random 46.36 mg/dL (20.00-300.00); Protein Creatinine Ratio Urine 0.32
[2023-02-27 12:08] LABS: Bilirubin Urine NEGATIVE (NEGATIVE); Blood Urine NEGATIVE (NEGATIVE); Clarity Urine CLEAR (CLEAR); Color Urine LT. YELLOW (YELLOW); Glucose Urine UA NEGATIVE (NEGATIVE); Ketones Urine NEGATIVE (NEGATIVE); Leukocyte Esterase Urine TRACE (NEGATIVE); Nitrite Urine NEGATIVE (NEGATIVE); Protein Urine NEGATIVE (NEG/TRACE); Urobilinogen Urine 0.2 EU/dL (0.2-1.0); pH Urine 5.5 (5.0-9.0)
[2023-02-27 12:10] LABS: Albumin Level 3.5 g/dL (3.4-5.0); Anion Gap 15.8; BUN Creatinine Ratio 22.1; Calcium 9.1 mg/dL (8.5-10.1); Carbon Dioxide 22.9 mmol/L (21.0-32.0); Chloride 107 mmol/L (98-107); Estimated GFR (African America 37 (>=60); Estimated GFR (Non-African Ame 31 (>=60); Glucose 140 mg/dL (74-106); Phosphorus 3.8 mg/dL (2.6-4.7); Potassium 4.7 mmol/L (3.5-5.1); Sodium 141 mmol/L (136-145)
[2023-02-28 12:14] LABS: PTH, Intact 27 pg/mL (15-65)
== END 2023-02-27 09:54 | disposition home or self-care (01) ==
LOC: LAB 09:59
PROVIDERS: PCP Family Medicine
DX: I13.10 Hypertensive heart and chronic kidney disease without heart failure, with stage 1 through stage 4 chronic kidney disease, or unspecified chronic kidney disease (principal); N18.32 Chronic kidney disease, stage 3b; N17.9 Acute kidney failure, unspecified
CPT/HCPCS: 36415; 80069; 81003; 82570; 83970; 84156

== ENCOUNTER 2023-03-14 11:44 | Outpatient (OUT) | payer MEDICARE, SELFPAY ==
[2023-03-14 12:15] LABS: Basophils Percent Auto 0.6 % (0.2-2.0); Eosinophils Absolute Auto 0.4 10^3/uL (0.0-0.7); Eosinophils Percent Auto 7.3 % (0.9-7.0); Hematocrit 35.4 % (36.0-48.0); Hemoglobin 11.5 g/dL (12.0-16.0); Immature Granulocytes Abs Auto 0.02 10^3/uL (0.00-0.03); Immature Granulocytes Pct Auto 0.4 % (0.0-0.5); Lymphocytes Absolute Auto 1.2 10^3/uL (1.2-3.8); Lymphocytes Percent Auto 22.5 % (20.5-60.0); Mean Corpuscular HGB Conc 32.5 g/dL (29.9-35.2); Mean Corpuscular Hemoglobin 29.3 pg (26.7-34.0); Mean Corpuscular Volume 90.3 fL (81.0-99.0); Mean Platelet Volume 12.3 fL (9.5-13.5); Monocytes Absolute Auto 0.4 10^3/uL (0.3-0.8); Monocytes Percent Auto 8.1 % (1.7-12.0); Neutrophils Absolute Auto 3.3 10^3/uL (1.4-6.5); Neutrophils Percent Auto 61.1 % (43.0-75.0); Platelet Count 134 10^3/uL (150-450); Red Blood Count 3.92 10^6/uL (4.20-5.40); Red Cell Distribution Width 14.5 % (11.0-15.0); White Blood Count 5.3 10^3/uL (4.0-11.0)
[2023-03-14 13:12] LABS: BUN Creatinine Ratio 21.1; Calcium 8.8 mg/dL (8.5-10.1); Carbon Dioxide 24.2 mmol/L (21.0-32.0); Chloride 106 mmol/L (98-107); Estimated GFR (African America 34 (>=60); Estimated GFR (Non-African Ame 28 (>=60); Glucose 131 mg/dL (74-106); Potassium 4.2 mmol/L (3.5-5.1); Sodium 139 mmol/L (136-145)
== END 2023-03-14 11:45 | disposition home or self-care (01) ==
LOC: LAB 11:46
PROVIDERS: PCP Family Medicine; Visit Provider Internal Medicine Interventional Cardiology
DX: I35.0 Nonrheumatic aortic (valve) stenosis (principal)
CPT/HCPCS: 36415; 80048; 85025

== ENCOUNTER 2023-04-06 10:34 | Emergency (ER) | payer MEDICARE, SELFPAY ==
[2023-04-06] VITALS (20 sets, daily range): BP systolic 113–126; BP diastolic 50–72; PULSE 60–67; RESP 11–23; TEMP 36.5; O2SAT 96–98; BMI 34.8
--- NOTE | 2023-04-06 10:53 | ED_ITS ---
HPI - General Adult General Chief complaint: Dizziness Stated complaint: SYNCOPE Time Seen by Provider: 04/06/23 10:40 Mode of arrival: Wheelchair Limitations: no limitations History of Present Illness HPI narrative: his patient's here complaining of feeling a little bit of weakness and lightheadedness today. She did not actually have vertigo or spinning sensation. She feels better now. At home her blood pressure was 99/48. She just went home from the hospital earlier this week where she had a percutaneous aortic valve procedure. She says she's been feeling really good. She already had a pacemaker. Earlier this year she had a non-STEMI. She said they've been having trouble with her potassium and her kidney function and has I believe stage IIIB kidney failure. She does not have any chest pain or shortness of breath. She's not had fever shakes or chills. She is scheduled to see her primary care doctor Amee today at 11:15. Actually she is doing very well after surgery just felt a little lightheaded for a while before she came to the hospital. Related Data Home Medications Medication Instructions Recorded Confirmed atorvastatin 80 mg tablet 80 mg PO .qhs 02/02/23 02/02/23 carvedilol 25 mg tablet 25 mg PO Q12H 02/02/23 02/02/23 cholecalciferol (vitamin D3) 2,000 unit PO DAILY 02/02/23 02/02/23 clopidogrel 75 mg tablet 75 mg PO DAILY 02/02/23 02/02/23 docusate sodium 100 mg capsule 100 mg PO .sunday and 02/02/23 02/02/23 (Stool Softener) flash glucose scanning reader 02/02/23 02/02/23 (FreeStyle Stephy 2 Randall) flash glucose sensor (FreeStyle 02/02/23 02/02/23 Stephy 2 Sensor kit) hydralazine 25 mg tablet 25 mg PO Q12H 02/02/23 02/02/23 lisinopril 20 mg tablet 20 mg PO DAILY hypertension 02/02/23 02/02/23 nifedipine 30 mg tablet,extended 30 mg PO DAILY 02/02/23 02/02/23 release calcitriol 0.25 mcg capsule mcg 02/17/23 lisinopril 40 mg tablet mg 02/17/23 nifedipine 60 mg tablet,extended mg PO 02/17/23 release spironolactone 25 mg tablet mg 02/17/23 Allergies Allergy/AdvReac Type Severity Reaction Status Date / Time meperidine [From Demerol] AdvReac Mild Verified 02/01/23 14:21 [facility] Medical History Surgical History Family History Mother Family history of diabetes mellitus Family history of hypertension Family history of myocardial infarction Social History Within the past year, how often did you have a drink containing alcohol: never Score interpretation: A score less than 3 is consistent with normal alcohol consumption. Smoking status: Current every day smoker Non-prescribed substance use: denies use Exam Narrative Exam Narrative: awake alert stable vital signs. No tachycardia or hypotension. She's modestly anxious. However her skin color is good mucous membranes are moist and pink is no diaphoresis or clamminess. Constitutional shows pulse oximetry be normal on room air and she has no increased respiratory rate. Moves about comfortably does not appear to be in distress. I examination shows no scleral icterus or edema or pallor. The chest examination lungs are completely clear with no wheezes rales or rhonchi. Her chest also shows a median sternotomy from previous quadruple bypass surgery. She also has a pacemaker in the left upper chest. All these areas appear well-healed and no acute findings. Her heart has no clicks rubs or murmur. Abdomen is soft and supple with no guarding rebound rigidity or tenderness. Extremities show no edema no venous cords and good peripheral perfusion. Her back appears normal with no bruises contusions or abrasions. Good breath sounds are noted. Constitutional Vital Signs, click to edit/add: Last Vital Signs Temp 97.7 F 04/06/23 10:37 Pulse 60 04/06/23 12:30 Resp 13 04/06/23 12:30 BP 119/52 04/06/23 12:30 Pulse Ox 96 04/06/23 12:30 O2 Del Method Room Air 04/06/23 10:37 Course Vital Signs Vital signs: Vital Signs Temperature 97.7 F 04/06/23 10:37 Pulse Rate 65 04/06/23 10:37 Respiratory Rate 18 04/06/23 10:37 Blood Pressure 115/72 04/06/23 10:37 Pulse Oximetry 98 04/06/23 10:37 Oxygen Delivery Method Room Air 04/06/23 10:37 Temperature 97.7 F 04/06/23 10:37 Pulse Rate 60 04/06/23 12:30 Respiratory Rate 13 04/06/23 12:30 Blood Pressure 119/52 04/06/23 12:30 Pulse Oximetry 96 04/06/23 12:30 Oxygen Delivery Method Room Air 04/06/23 10:37 Medical Decision Making MDM Narrative Medical decision making narrative: screening laboratory test shows modest elevation of her troponin. It was repeated and is going down. I believe both the d-dimer and the troponin are elevated from her recent cardiovascular procedure. Her kidney function potassium and overall clinical condition chest x-ray are actually very good when compared to previous studies. I will share this information with the on-call processing manager for Dr. Spencer Rodriguez. She was reassured she's continue taking the same medication and she scheduled to see her processing manager next Sunday. Lab Data Labs: Lab Results 04/06/23 04/06/23 Range/Units 11:00 12:17 WBC 6.9 (4.0-11.0) 10^3/uL RBC 3.77 L (4.20-5.40) 10^6/uL Hgb 11.1 L (12.0-16.0) g/dL Hct 33.6 L (36.0-48.0) % MCV 89.1 (81.0-99.0) fL MCH 29.4 (26.7-34.0) pg MCHC 33.0 (29.9-35.2) g/dL RDW 14.5 (11.0-15.0) % Plt Count 135 L (150-450) 10^3/uL MPV 12.5 (9.5-13.5) fL Neut % (Auto) 68.9 (43.0-75.0) % Lymph % (Auto) 15.7 L (20.5-60.0) % [place] % (Auto) 9.1 (1.7-12.0) % Eos % (Auto) 5.6 (0.9-7.0) % Baso % (Auto) 0.4 (0.2-2.0) % Neut # (Auto) 4.8 (1.4-6.5) 10^3/uL Lymph # (Auto) 1.1 L (1.2-3.8) 10^3/uL [place] # (Auto) 0.6 (0.3-0.8) 10^3/uL Eos # (Auto) 0.4 (0.0-0.7) 10^3/uL Baso # (Auto) 0.0 (0.0-0.1) 10^3/uL Abs Immat Gran (auto) 0.02 (0.00-0.03) 10^3/uL Imm/Tot Granulo (auto) 0.3 (0.0-0.5) % D-Dimer 1.34 H* (<=0.59) mg/L FEU Sodium 138 (136-145) mmol/L Potassium 4.5 (3.5-5.1) mmol/L Chloride 104 (98-107) mmol/L Carbon Dioxide 22.3 (21.0-32.0) mmol/L Anion Gap 16.2 BUN 35.0 H (7.0-18.0) mg/dL Creatinine 1.67 H (0.55-1.02) mg/dL Est GFR ( Amer) 36 L (>=60) Est GFR (Non-Af Amer) 30 L (>=60) BUN/Creatinine Ratio 21.0 Glucose 163 H (74-106) mg/dL Calcium 8.8 (8.5-10.1) mg/dL Total Bilirubin 0.8 (0.2-1.0) mg/dL AST 18 (15-37) U/L ALT 14 (14-59) U/L Alkaline Phosphatase 112 (46-116) U/L Troponin I High Sens 541.1 H* 502.4 H* (4.0-51.3) pg/mL Total Protein 7.2 (6.4-8.2) g/dL Albumin 3.4 (3.4-5.0) g/dL Globulin 3.8 g/dL Albumin/Globulin Ratio 0.9 Discharge Plan Discharge Chief Complaint: Dizziness Clinical Impression: Weakness generalized Patient Disposition: Home, Self-Care Time of Disposition Decision: 12:56 Prescriptions / Home Meds: No Action spironolactone 25 mg tablet nifedipine 60 mg tablet extended release PO lisinopril 40 mg tablet calcitriol 0.25 mcg capsule atorvastatin 80 mg tablet 80 mg PO .qhs carvedilol 25 mg tablet 25 mg PO Q12H lisinopril 20 mg tablet 20 mg PO DAILY hydralazine 25 mg tablet 25 mg PO Q12H nifedipine 30 mg tablet extended release 30 mg PO DAILY clopidogrel 75 mg tablet 75 mg PO DAILY (DME) FreeStyle Stephy 2 Sensor Kit MISCELLANEOUS (DME) FreeStyle Stephy 2 Randall Misc MISCELLANEOUS docusate sodium [Stool Softener] 100 mg capsule 100 mg PO .sunday and Rx Instructions: patient only takes on sunday and cholecalciferol (vitamin D3) [Vitamin D3] 2,000 unit PO DAILY Patient Comments: vitamin D deficiency Additional Instructions: resume get up from lying positions very slowly./See her processing manager next week as planned Stand Alone Forms: Portal Instructions Referrals: Sudha Lubin MD [Primary Care Provider] - 1 week
--- NOTE | 2023-04-06 11:28 | XR_ITS ---
The [address] [address] Patient Name: ELIJAH WELCH MRN: [id number] date: 1945 Sex: F Assigned Patient Location: ER Current Patient Location: ER Accession/Order Number: [id number] Exam Date: 04/06/2023 11:45 Report Date: 04/06/2023 12:06 At the request of: RADHA GASTON Procedure: XR chest 1V EXAM: XR chest 1V HISTORY: weakness status post aortic valve surgery COMPARISON: 02/17/2023 TECHNIQUE: Chest X-ray AP, 1 view FINDINGS: Support devices: Median sternotomy wires are in place. Status post aortic valve replacement. Left-sided pacemaker with distal leads overlying the right atrium and right ventricle. Lungs/pleura: No consolidation, effusion, or pneumothorax. Heart and mediastinum: Normal contours. Bones: No acute abnormality identified. XR/XR chest 1V Impression: No radiographic evidence of acute cardiopulmonary process. Electronically authenticated by: CON MONTEZ Date: 04/06/2023 12:06
[2023-04-06 11:59] LABS: Basophils Percent Auto 0.4 % (0.2-2.0); Eosinophils Absolute Auto 0.4 10^3/uL (0.0-0.7); Eosinophils Percent Auto 5.6 % (0.9-7.0); Hematocrit 33.6 % (36.0-48.0); Hemoglobin 11.1 g/dL (12.0-16.0); Immature Granulocytes Abs Auto 0.02 10^3/uL (0.00-0.03); Immature Granulocytes Pct Auto 0.3 % (0.0-0.5); Lymphocytes Absolute Auto 1.1 10^3/uL (1.2-3.8); Lymphocytes Percent Auto 15.7 % (20.5-60.0); Mean Corpuscular Hemoglobin 29.4 pg (26.7-34.0); Mean Corpuscular Volume 89.1 fL (81.0-99.0); Mean Platelet Volume 12.5 fL (9.5-13.5); Monocytes Absolute Auto 0.6 10^3/uL (0.3-0.8); Monocytes Percent Auto 9.1 % (1.7-12.0); Neutrophils Absolute Auto 4.8 10^3/uL (1.4-6.5); Neutrophils Percent Auto 68.9 % (43.0-75.0); Platelet Count 135 10^3/uL (150-450); Red Blood Count 3.77 10^6/uL (4.20-5.40); Red Cell Distribution Width 14.5 % (11.0-15.0); White Blood Count 6.9 10^3/uL (4.0-11.0)
[2023-04-06 12:00] LABS: Alanine Aminotransferase 14 U/L (14-59); Albumin Globulin Ratio 0.9; Albumin Level 3.4 g/dL (3.4-5.0); Alkaline Phosphatase 112 U/L (46-116); Anion Gap 16.2; Aspartate Amino Transferase 18 U/L (15-37); Bilirubin Total 0.8 mg/dL (0.2-1.0); Calcium 8.8 mg/dL (8.5-10.1); Carbon Dioxide 22.3 mmol/L (21.0-32.0); Chloride 104 mmol/L (98-107); Estimated GFR (African America 36 (>=60); Estimated GFR (Non-African Ame 30 (>=60); Globulin 3.8 g/dL; Glucose 163 mg/dL (74-106); Potassium 4.5 mmol/L (3.5-5.1); Sodium 138 mmol/L (136-145); Total Protein 7.2 g/dL (6.4-8.2)
[2023-04-06 12:02] LABS: Troponin I High Sensitivity 541.1 pg/mL (4.0-51.3)
[2023-04-06 12:38] LABS: D Dimer 1.34 mg/L FEU (<=0.59)
[2023-04-06 12:46] LABS: Troponin I High Sensitivity 502.4 pg/mL (4.0-51.3)
--- NOTE | 2023-04-06 13:22 | ECG_ITS ---
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
== END 2023-04-06 13:38 | disposition home or self-care (01) ==
PROVIDERS: Emergency Provider Emergency Medicine Emergency Medical Services; PCP Family Medicine
DX: R53.1 Weakness (principal); Z95.0 Presence of cardiac pacemaker; I25.2 Old myocardial infarction; Z79.899 Other long term (current) drug therapy; F17.210 Nicotine dependence, cigarettes, uncomplicated
CPT/HCPCS: 36415; 71045; 80053; 84484; 85025; 85378; 93005; 99285

== ENCOUNTER 2023-05-08 16:18 | Outpatient (OUT) | payer MEDICARE, SELFPAY ==
--- NOTE | 2023-05-08 16:40 | XR_ITS ---
The [address] [address] Patient Name: ELIJAH WELCH MRN: [id number] date: 1945 Sex: F Assigned Patient Location: [facility] Current Patient Location: [facility] Accession/Order Number: [id number] Exam Date: 05/08/2023 16:29 Report Date: 05/08/2023 16:59 At the request of: SANYA TINEO Procedure: XR chest 2V EXAM: XR chest 2V HISTORY: R05.9 COUGH, UNSPECIFIED TYPE for the past 4 days. COMPARISON: 04/06/2023 TECHNIQUE: Upright PA and lateral chest x-ray FINDINGS: The heart is not enlarged and the vasculature is not distended. No acute infiltrate, effusion or pneumothorax is identified. Multiple sternal wire sutures, a mesh cardiac valve and a left-sided transvenous pacemaker remains in place. XR/XR chest 2V IMPRESSION: No acute infiltrate or evidence of cardiac decompensation. The overall appearance of the chest is essentially unchanged. Electronically authenticated by: GENESIS PINEDA Date: 05/08/2023 16:59
== END 2023-05-08 16:19 | disposition home or self-care (01) ==
LOC: RAD 16:24
PROVIDERS: PCP Family Medicine; Visit Provider Family Medicine
DX: R05.9 Cough, unspecified (principal)
CPT/HCPCS: 71046

== ENCOUNTER 2023-06-01 07:04 | Outpatient (RCR) | payer MEDICARE, SELFPAY | END 2023-07-09 11:38 | disposition home or self-care (01) | LOC: CR 07:04 | PROVIDERS: PCP Family Medicine; Visit Provider Internal Medicine Interventional Cardiology | DX: Z95.2 Presence of prosthetic heart valve (principal) ==

== ENCOUNTER 2023-06-26 11:46 | Outpatient (OUT) | payer MEDICARE, SELFPAY ==
[2023-06-26 12:16] LABS: Hematocrit 34.1 % (36.0-48.0); Hemoglobin 10.8 g/dL (12.0-16.0)
[2023-06-26 14:31] LABS: Albumin Level 3.7 g/dL (3.4-5.0); Anion Gap 14.1; Carbon Dioxide 24.5 mmol/L (21.0-32.0); Chloride 108 mmol/L (98-107); Estimated GFR (African America 33 (>=60); Estimated GFR (Non-African Ame 27 (>=60); Glucose 143 mg/dL (74-106); Magnesium 2.2 mg/dL (1.8-2.4); Phosphorus 4.5 mg/dL (2.6-4.7); Potassium 4.6 mmol/L (3.5-5.1); Sodium 142 mmol/L (136-145)
[2023-06-26 15:30] LABS: Protein Creatinine Ratio Urine 1.02; Total Protein Urine Random 37.2 mg/dL (<=11.9)
== END 2023-06-26 11:47 | disposition home or self-care (01) ==
LOC: LAB 11:49
PROVIDERS: PCP Family Medicine
DX: I13.10 Hypertensive heart and chronic kidney disease without heart failure, with stage 1 through stage 4 chronic kidney disease, or unspecified chronic kidney disease (principal); N18.32 Chronic kidney disease, stage 3b; E55.9 Vitamin D deficiency, unspecified
CPT/HCPCS: 36415; 80069; 82306; 82570; 83735; 84156; 85014; 85018

== ENCOUNTER 2023-06-26 12:57 | Outpatient (OUT) | payer MEDICARE, SELFPAY ==
--- NOTE | 2023-06-26 12:59 | MM_ITS ---
Patient Name: ELIJAH WELCH MR#: [id number] : 1945 Exam Date: 06/26/2023 Ordering Doctor: DR Sudha Lubin M.D. RADIOLOGY REPORT PROCEDURE: MM TOMOSYNTHESIS SCREENING RT COMPARISON: MG MAMM SCREEN RT 3D CAD, 05/23/2022. MG MAMM SCREEN RT 3D CAD, 03/23/2021. MG MAMM RT DIAG W CAD, 05/16/2019. MG MAMM RT UNI W CAD DIG, 01/08/2013. INDICATIONS: Screening Calculator Name NCI Breast Cancer Risk Assessment Tool 5 Year Breast Cancer Risk n/a% Lifetime Breast Cancer Risk n/a% Personal Breast Cancer Yes, Left breast cancer 2009 Personal Ovarian Cancer No Treatments Left mastectomy and chemotherapy Family Cancers None LOCATION: [facility] BREAST COMPOSITION: Scattered areas fibroglandular density. FINDINGS: DIAGNOSTIC CATEGORY 2--BENIGN FINDING: RIGHT BREAST: No significant suspicious finding. Scattered benign-appearing calcifications are present. No significant change has occurred. RECOMMENDATIONS: ROUTINE MAMMOGRAM AND CLINICAL EVALUATION IN 12 MONTHS. PLEASE NOTE: A NORMAL MAMMOGRAM DOES NOT EXCLUDE THE POSSIBILITY OF BREAST CANCER. A CLINICALLY SUSPICIOUS PALPABLE LUMP SHOULD BE BIOPSIED. Dictated by: Eugene Serrano M.D. on 06/27/2023 at 13:48 Approved by: Eugene Serrano M.D. on 06/27/2023 at 13:50
== END 2023-06-26 12:58 | disposition home or self-care (01) ==
LOC: MAMMO 12:57
PROVIDERS: PCP Family Medicine; Visit Provider Family Medicine
DX: Z12.31 Encounter for screening mammogram for malignant neoplasm of breast (principal); Z85.3 Personal history of malignant neoplasm of breast
CPT/HCPCS: 77063; 77067

== ENCOUNTER 2023-09-04 12:48 | Outpatient (OUT) | payer MEDICARE, SELFPAY ==
--- OUTSIDE RECORDS SUMMARY | 2023-09-04 12:50 | XMS_ITS | CCD ---
Author Name Unknown Address [address] [place] [address] Organization [facility] Care Team Providers Care Production Editor Name Role Phone WALLACE, SADI P Unavailable Unavailable WALLACE, SADI P Unavailable Unavailable PHYSICIAN, DEFAULT Unavailable Unavailable PHYSICIAN, DEFAULT Unavailable Unavailable SANYA TINEO Unavailable Unavailable Sanya Tineo Unavailable DIAMOND HILARIO Consulting Unavailable RIVKA, DR SANYA De La Torre Primary Care Unavailable RIVKA, DR SANYA De La Torre Admitting Unavailable RIVKA, DR SANYA De La Torre Attending Unavailable RIVKA, DR SANYA De La Torre Consulting Unavailable RIVKA, DR SANYA De La Torre Primary Care Unavailable RIVKA, DR SANYA De La Torre Admitting Unavailable RIVKA, DR SANYA De La Torre Attending Unavailable TINEO, DR SANYA De La Torre Consulting Unavailable AKKINA, SHARITA Consulting Unavailable AKKINA, SHARITA Admitting Unavailable RIVKA, DR SANYA De La Torre Primary Care Unavailable AKKINA, SHARITA Attending Unavailable RIVKA, DR SANYA De La Torre Primary Care Unavailable RIVKA, DR SANYA De La Torre Admitting Unavailable RIVKA, DR SANYA De La Torre Attending Unavailable AKKINA, SHARITA Admitting Unavailable AKKINA, SHARITA Attending Unavailable RIVKA, DR SANYA De La Torre Primary Care Unavailable AKKINA, SHARITA Consulting Unavailable AKKINA, SHARITA Consulting Unavailable AKKINA, SHARITA Admitting Unavailable RIVKA, DR SANYA De La Torre Primary Care Unavailable AKKINA, SHARITA Attending Unavailable HAY .DR BAUTISTA Consulting Unavailable HAY ., DR BAUTISTA Admitting Unavailable RUPAL ., DR BAUTISTA Attending Unavailable RIVKA, DR SANYA De La Torre Primary Care Unavailable FLANNERY MONTEZ Consulting Unavailable DIAB ., PIERRE Consulting Unavailable RIVKA, DR SANYA De La Torre Admitting Unavailable IRVKA, DR SANYA De La Torre Primary Care Unavailable RIVKA, DR SANYA De La Torre Attending Unavailable RIVKA, DR SANYA De La Torre Consulting Unavailable Quesada, Jailene Admitting Unavailable Sanya Tineo Primary Care Unavailable Mikel Mir Attending Unavailable TOÑO BALBUENA Admitting Unavailable TOÑO BALBUENA Attending Unavailable MOUKARBEL, TOÑO Attending Unavailable PRECIOUS MONREAL Attending Unavailable MOUKARBEL, TOÑO Referring Unavailable GANGJACKSON, ANDREA WU Referring Unavailab MIKAYLA Salgado Attending Unavailable MOUKARBEL, TOÑO Referring Unavailable MOUKARBEL, TOÑO Referring Unavailable BRITTANYDOE Referring Unavailable MOUKARBEL, TOÑO Attending Unavailable MOUKARBEL, TOÑO Attending Unavailable MOUKARBEL, TOÑO Attending Unavailable TAYLOR PIÑA Attending Unavailable MOUKARBEL, TOÑO Referring Unavailable ALVAREZ, MARGARET Referring Unavailable ALVAREZ, MARGARET Referring Unavailable ALVAREZ, MARGARET Referring Unavailable DINORA, YOUNGSOOK Referring Unavailable TIEN, TU Referring Unavailable TIEN, TU Referring Unavailable GANGWANI, ANDREA WU Referring Unavailab le BRITTANY, DOE Attending Unavailable CORAL, MIKAYLA Referring Unavailable DINORA, YOUNGSOOK Referring Unavailable BRITTANY, DOE Referring Unavailable DINORA, YOUNGSOOK Referring Unavailable ALVAREZ, MARGARET Referring Unavailable TIEN, TU Referring Unavailable TIEN, TU Admitting Unavailable RAY, JOSR Referring Unavailable BEBO MCNULTY Attending Unavailable MICHELE GOLDSMITH Referring Unavailable DINORA, YOUNGSOOK Admitting Unavailable DINORA, YOUNGSOOK Attending Unavailable DIRK ONEILL Attending Unavailable ZOEY HERRING Referring Unavailable DIRK ONEILL Attending Unavailable JENNIFER MORALES Attending Unavailable SANYA TINEO Referring Unavailable Allergies Allergy Classification Reported Allergen(s) Allergy Type Date of Onset Reaction(s) Facility (2 sources) Meperidine Drug Allergy 06-16-2009 [facility] Repository (11 sources) Meperidine; Translations: [MEPERIDINE] Drug Allergy 09-10-2022 [facility] (1 source) Meperidine Drug Allergy 02-17-2023 [facility] Repository Medications Current Medications Medication Drug Class(es) Dates Sig (Normalized) Sig (Original) ALPRAZolam 0.25 mg oral tablet (10 sources) Benzodiazepine Start: 07-17-2023 take 1 tablet by mouth twice daily as needed ALPRAZolam 0.25 MG 1 tablet Orally Twice a day prn for 30 days Jul, Active take 1 tablet by kaleigh th every twelve hours ALPRAZolam 0.25 MG 1 tablet Orally Twice a day Active amoxicillin 500 mg oral capsule (3 sources) Penicillin-class Antibacterial Start: 05-09-2023 take 1 capsule by mouth every eight hours Amoxicillin 500 MG 1 capsule Orally every 8 hrs for 5 day(s) May, Active aspirin 81 mg delayed release oral tablet (5 sources) Platelet Aggregation Inhibitor, Nonsteroidal Anti-inflammatory Drug take 1 tablet by mouth every twenty-four hours Aspirin 81 81 MG 1 tablet Orally Once a day Active take 1 tablet by mouth once tyson y Aspirin 81 81 MG 1 tablet Orally Once a day Active atorvastatin 80 mg oral tablet (10 sources) HMG-CoA Reductase Inhibitor take 1 tablet by mouth every twenty-four hours Atorvastatin Calcium 80 MG 1 tablet Orally Once a day Active azithromycin 250 mg oral tablet (2 sources) Macrolide Antimicrobial Start: 023 Azithromycin 250 MG as directed Orally 2 tabs po today, then 1 tab daily x 4 more days for 5 May, Active calcitriol 0.44706 mg oral capsule (3 sources) Vitamin D3 Analog take 1 capsule by mouth three times weekly Calcitriol 0.25 MCG 1 capsule Orally Three times a Week Active carvedilol 25 mg oral tablet (10 sources) alpha-Adrenergic Martín, beta-Adrenergic Martín take 1 tablet by mouth twice daily Carvedilol 25 MG TAKE 1 TABLET BY MOUTH TWICE A DAY for 90 Active cholecalciferol 0.05 mg oral capsule (6 sources) Vitamin D take 1 capsule by mouth every twenty-four hours Vitamin D3 50 MCG (1999 UT) 1 capsule Orally Once a day Active clopidogrel 75 mg oral tablet (10 sources) P2Y12 Platelet Inhibitor take 1 tablet by mouth once daily Clopidogrel Bisulfate 75 MG TAKE 1 TABLET BY MOUTH EVERY DAY for 90 Active docusate sodium 100 mg oral capsule (6 sources) take 1 capsule by mouth every twenty-four hours Colace 100 MG 1 capsule as needed Orally Once a day Active FreeStyle Stephy 14 Day Dexter - (10 sources) FreeStyle Stephy 14 Day Dexter - as directed Active FreeStyle Stephy 14 Day Sensor - (1 source) FreeStyle Stephy 14 Day Sensor - as directed Active FreeStyle Stephy 2 Sensor - (9 sources) FreeStyle Stephy 2 Sensor - USE DIRECTED for 28 Active hydrALAZINE hydrochloride 25 mg oral tablet (10 sources) Arteriolar Vasodilator take 1 tablet by mouth every twelve hours hydrALAZINE HCl 25 MG 1 tablet with food Orally Twice a day Active lisinopril 10 mg oral tablet (10 sources) Angiotensin Converting Enzyme Inhibitor take 1 tablet by mouth every twenty-four hours Lisinopril 10 MG 1 tablet Orally Once a day Active take 1 tablet by kaleigh th every twenty-four hours Lisinopril 40 MG 1 tablet Orally Once a day Active take 1 tablet by kaleigh th every twenty-four hours Lisinopril 20 MG 1 tablet Orally Once a day Active melatonin 3 mg oral tablet (6 sources) take 1 tablet by mouth every twenty-four hours Melatonin 3 MG 1 tablet at bedtime as needed Orally Once a day Active 24 hr NIFEdipine 60 mg extended release oral tablet (13 sources) Dihydropyridine Calcium Channel Martín take 1 tablet by mouth every twenty-four hours NIFEdipine ER 60 MG 1 tablet on an empty stomach Orally Once a day Active take 1 tablet by kaleigh th every twenty-four hours NIFEdipine ER 30 MG 1 tablet on an empty stomach Orally Once a day Active take 1 tablet by kaleigh th every twenty-four hours NIFEdipine ER 90 MG 1 tablet on an empty stomach Orally Once a day Active predniSONE 20 mg oral tablet (2 sources) take 1 tablet by mouth every twenty-four hours predniSONE 20 MG 1 tablet Orally Once a day for 5 days Active spironolactone 25 mg oral tablet (1 source) Aldosterone Antagonist take 1 tablet by mouth every twenty-four hours Spironolactone 25 MG 1 tablet Orally Once a day Active Problems Active Problems Problem Classification Problem Date Documented Date Episodic/Chronic Abdominal pain (1 source) Unspecified abdominal pain Episodic Acute and unspecified renal failure (1 source) Acute kidney failure, unspecified; Translations: [Acute kidney failure, unspecified] Onset: 3 Episodic Acute myocardial infarction (4 sources) Acute myocardial infarction, unspecified; Translations: [Non-ST elevation (NSTEMI) myocardial infarction] Onset: 3 Chronic Anxiety disorders (12 sources) Generalized anxiety disorder; Translations: [Generalized anxiety disorder] Onset: 3 Chronic Cancer of breast (1 source) Malignant neoplasm of overlapping sites of unspecified female breast; Translations: [MAL RADHA OVERLAP SITE UNS FEM BREAST] Onset: 2 Chronic Cancer of breast (3 sources) Personal history of malignant neoplasm of breast; Translations: [History of malignant neoplasm of breast] Onset: 2 Episodic Cardiac dysrhythmias (3 sources) Unspecified atrial fibrillation; Translations: [Paroxysmal atrial fibrillation] Onset: 3 Chronic Cardiac dysrhythmias (1 source) Bradycardia, unspecified; Translations: [BRADYCARDIA UNSPECIFIED] Onset: 3 Episodic Chronic kidney disease (19 sources) Chronic kidney disease stage 3; Translations: [Chronic kidney disease, stage 3 unspecified] Onset: 3 Chronic Chronic kidney disease (6 sources) Chronic kidney disease; Translations: [Chronic kidney disease, stage 3 unspecified] Onset: 3 Chronic obstructive pulmonary disease and bronchiectasis (1 source) Bronchitis, not specified as acute or chronic Episodic Conduction disorders (7 sources) Atrioventricular block, second degree; Translations: [Presence of cardiac pacemaker] Onset: 3 Chronic Coronary atherosclerosis and other heart disease (15 sources) Atherosclerosis of coronary artery without angina pectoris; Translations: [Atherosclerotic heart disease of [place] coronary artery without angina pectoris] Onset: 3 Chronic Deficiency and other anemia (1 source) Anemia in chronic kidney disease; Translations: [ANEMIA IN CHRONIC KIDNEY DISEASE] Onset: 3 Chronic Diabetes mellitus with complications (15 sources) Hyperglycemia due to type 2 diabetes mellitus; Translations: [Type 2 diabetes mellitus with hyperglycemia] Onset: 2 Chronic Diabetes mellitus without complication (11 sources) Hyperglycemia; Translations: [Other abnormal glucose] Onset: 2 Episodic Essential hypertension (16 sources) Essential hypertension; Translations: [Essential (primary) hypertension] Onset: 3 Chronic Fluid and electrolyte disorders (1 source) Hyperkalemia; Translations: [Hyperkalemia] Onset: 3 Episodic Heart valve disorders (15 sources) Aortic stenosis, non-rheumatic ; Translations: [Nonrheumatic aortic (valve) stenosis] Onset: 3 Chronic Hypertension with complications and secondary hypertension (9 sources) Hypertensive heart and chronic kidney disease without heart failure, with stage 1 through stage 4 chronic kidney disease, or unspecified chronic kidney disease; Translations: [Hypertensive chronic kidney disease with stage 1 through stage 4 chronic kidney disease, or unspecified chronic kidney disease] Onset: 2 Chronic Lymphadenitis (1 source) Localized enlarged lymph nodes Episodic Malaise and fatigue (3 sources) Weakness; Translations: [WEAKNESS] Onset: 3 Episodic Occlusion or stenosis of precerebral arteries (2 sources) Occlusion and stenosis of bilateral carotid arteries; Translations: [Occlusion and stenosis of bilateral carotid arteries] Onset: 3 Chronic Osteoarthritis (1 source) Unspecified osteoarthritis, unspecified site; Translations: [UNSPECIFIED OSTEOARTHRITIS UNS SITE] Onset: 3 Chronic Other aftercare (1 source) Other assisted (current) drug therapy; Translations: [OTH [employer] CURRENT DRUG THERAPY] Onset: 3 Episodic Other circulatory disease (1 source) Personal history of transient ischemic attack (TIA), and cerebral infarction without residual deficits; Translations: [PERS HX TIA AND CI NO RESID DEFICIT] Onset: 3 Episodic Other circulatory disease (2 sources) Personal history of other diseases of the circulatory system Episodic Other diseases of kidney and ureters (1 source) Secondary hyperparathyroidism of renal origin; Translations: [SEC HYPERPARATHYROIDISM RENAL ORIGN] Onset: 3 Chronic Other lower respiratory disease (1 source) Shortness of breath; Translations: [SHORTNESS OF BREATH] Onset: 3 Episodic Other upper respiratory infections (1 source) Postnasal drip Episodic Residual codes; unclassified (11 sources) Asymptomatic menopausal state; Translations: [Menopause] Onset: 2 Episodic Residual codes; unclassified (1 source) Insomnia, unspecified; Translations: [INSOMNIA UNSPECIFIED] Onset: 3 Episodic Residual codes; unclassified (1 source) Acquired absence of other specified parts of digestive tract; Translations: [ACQ ABSENCE OTH PART DIGESTV TRACT] Onset: 3 Episodic Residual codes; unclassified (1 source) Acquired absence of both cervix and uterus; Translations: [ACQUIRED ABSENCE BOTH CERVIX AND UTERUS] Onset: 3 Episodic Residual codes; unclassified (1 source) Acquired absence of left breast and nipple; Translations: [ACQUIRED ABSENCE LT BREAST AND NIPPLE] Onset: 3 Episodic Residual codes; unclassified (2 sources) Other specified postprocedural states Episodic Thyroid disorders (20 sources) Goiter; 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 goiter, unspecified] Onset: 2 Chronic Unclassified (1 source) Unknown / UNK(Unknown) Onset: 8 Unclassified (1 source) CONTACT W/AND (SUSP) EXPOS COVID-19; Translations: [CONTACT W/AND (SUSP) EXPOS COVID-19] Onset: 3 Unclassified (1 source) CHRN KIDNEY DISEASE STG 3 UNSP; Translations: [CHRN KIDNEY DISEASE STG 3 UNSP] Onset: 2 Past or Other Problems Problem Classification Problem Date Documented Da te Episodic/Chronic Conditions associated with dizziness or vertigo (2 sources) Dizziness and giddiness; Translations: [Dizziness and giddiness] Onset: 02-05-2023 Episodic Coronary atherosclerosis and other heart disease (3 sources) Presence of aortocoronary bypass graft; Translations: [PRESENCE AORTOCORONARY BYPASS GRAFT] Onset: 09-12-2022 Episodic Other bone disease and musculoskeletal deformities (1 source) Other specified disorders of bone density and structure, unspecified site; Translations: [OTH D/O BONE DEN STRUCT UNS SITE] Onset: 05-26-2022 Episodic Other screening for suspected conditions (not mental disorders or infectious disease) (4 sources) Encounter for screening mammogram for malignant neoplasm of breast; Translations: [ENC SCR MAMMO MALIG NEOPLASM BREAST] Onset: 05-23-2022 Episodic Syncope (2 sources) Syncope and collapse; Translations: [Syncope and collapse] Onset: 02-05-2023 Episodic Unclassified (1 source) Cough, unspecified type R05.9 Results Test Name Value Interpretation Reference Range Facility Follow-Upon 05-18-2023 Follow-Up [id number] Trisha Parish 1945 Date Provider Department Center 05/18/2023 TOÑO SIMPSON HILTON [facility] No family history on file Level of Service:88696 [place] OFFICE/OUTPATIENT ESTABLISHED LOW MDM 20-29 MIN Reason for Visit and Comments: Post-op TAVR [730] [facility] Office Visiton 04-11-2023 Follow-up visit [id number] Trisha Parish 1945 Date Provider Department Center 04/11/2023 TOÑO SIMPSON No family history on file Level of Service:15647 [place] OFFICE/OUTPATIENT ESTABLISHED MOD MDM 30-39 MIN Reason for Visit and Comments: Follow-up [675839] - 1 week F/U [facility] Documentationon 04-05-2023 Documentation [id number] Trisha Parish 1945 F Date Provider Department Center 04/05/2023 389-LINA LAMAS [facility] No family history on file Reason for Visit and Comments: Post-op [483] [facility] 30on 04-04-2023 30 Daily Case Managemen t Update Multidisciplinary rounds have been completed. Barriers to Discharge: S/p TAVR. Patient is medically ready for discharge. Heart healthy diet and activity added to AVS. Patient discharging home with aspirin prescription, placed in patients chart. Diet: Dietary Orders (From admission, onward) Start Ordered 04/03/23 1635 Regular Diet Heart Healthy/HTN, CABG,Stroke, (2gNA, low fat, low cholesterol) Diet effective now Question Answer Comment Room Service? Yes Fat restriction: Heart Healthy/HTN, CABG,Stroke, (2gNA, low fat, low cholesterol) 04/03/23 1635 Physician Expected Discharge Date: 04/04/2023 Discharge Delays: PT Six Click Score: OT Six Click Score: PT Recommendations: OT Recommendations: New Consults: [facility] 30 The patient is Moder ately Stable - Low risk of patient condition declining or worsening The patient's goals for the shift include Rest The clinical goals for the shift include VSS Over the shift, the patient did make progress toward the following goals. Problem: Pain - Adult Goal: Verbalizes/displays adequate comfort level or baseline comfort level Outcome: Progressing Problem: Safety - Adult Goal: Free from fall injury Outcome: Progressing Problem: Discharge Planning Goal: Discharge to home or other facility with appropriate resources Outcome: Progressing Problem: Chronic Conditions and Co-morbidities Goal: Patient's chronic conditions and co-morbidity symptoms are monitored and maintained or improved Outcome: Progressing [facility] 30 The patient is Moder ately Stable - Low risk of patient condition declining or worsening The patient's goals for the shift include comfort The clinical goals for the shift include vss Problem: Safety - Adult Goal: Free from fall injury Outcome: Progressing Problem: Discharge Planning Goal: Discharge to home or other facility with appropriate resources Outcome: Progressing Problem: Chronic Conditions and Co-morbidities Goal: Patient's chronic conditions and co-morbidity symptoms are monitored and maintained or improved Outcome: Progressing [facility] B-TYPE NATRIURETIC PEPTIDEon 04-04-2023 Natriuretic peptide B (Bld) [Mass/Vol] 213 pg/mL High 0-100 [facility] Comment on above: Performed By: #### L [id number] ####[facility] ([facility])[address] [place] [address] BASIC METABOLIC PANELon 03-08 Anion gap [Moles/Vol] 11 mmol/L Normal 7-20 [facility] Comment on above: Performed By: #### L [id number] #### [facility] ([facility]) [address] [place] [address] Calcium [Mass/Vol] 8.7 mg/dL Normal 8.6-10.3 [facility] Comment on above: Performed By: #### L [id number] #### [facility] ([facility]) [address] [place] [address] Chloride [Moles/Vol] 109 mmol/L High 98-107 [facility] Comment on above: Performed By: #### L [id number] #### [facility] ([facility]) [address] [place] [address] CO2 [Moles/Vol] 20 mmol/L Low 21-31 [facility] Comment on above: Performed By: #### L [id number] #### [facility] ([facility]) [address] [place] [address] Creatinine [Mass/Vol] 1.58 mg/dL High 0.60-1.20 [facility] Comment on above: Performed By: #### L [id number] #### [facility] ([facility]) [address] [place] [address] GLOMERULAR FILTRATION RATE ML/MIN/1.73 SQ M.PREDICTED 33.3 mL/min/1.73m*2 Low >60.[address] [facility] Comment on above: Result Comment: [facility]???s estimated glomerular filtration rate (eGFR) will no longer include consideration of race in its calculation. The National Kidney Foundation???s eGFR Task Force developed new recommendations for the estimation of the glomerular filtration rate in the [place] They recommend immediate implementation of the new equation refit without the race variable in all laboratories because the calculation does not include race. In addition to not including race in the calculation and reporting, it included diversity in its development, and has acceptable performance characteristics and potential consequences that do not disproportionately affect any one group of individuals. Performed By: #### L [id number] #### [facility] ([facility]) [address] [place] [address] Glucose [Mass/Vol] 140 mg/dL High 70-100 [facility] Comment on above: Performed By: #### L [id number] #### [facility] ([facility]) [address] [place] [address] Potassium [Moles/Vol] 4.1 mmol/L Normal 3.5-5.1 [facility] Comment on above: Performed By: #### L [id number] #### [facility] ([facility]) [address] [place] [address] Sodium [Moles/Vol] 136 mmol/L Normal 136-145 [facility] Comment on above: Performed By: #### L [id number] #### [facility] [address] [place] [address] Urea nitrogen [Mass/Vol] 33 mg/dL High 7-25 [facility] Comment on above: Performed By: #### L [id number] #### [facility] ([facility]) [address] [place] [address] UREA NITROGEN/CREATININE (MASS RATIO) IN SER/PLAS 20.9 [facility] Comment on above: Performed By: #### L [id number] #### [facility] ([facility] [address] [place] [address] Anion gap [Moles/Vol] 13 mmol/L Normal 7-20 [facility] Comment on above: Performed By: #### L [id number] ####[facility] ([facility])[address] [place] [address] Calcium [Mass/Vol] 8.9 mg/dL Normal 8.6-10.3 [facility] Comment on above: Performed By: #### L [id number] ####[facility] ([facility])[address] [place] [address] Chloride [Moles/Vol] 110 mmol/L High 98-107 [facility] Comment on above: Performed By: #### L [id number] ####[facility] ([facility])[address] [place] [address] CO2 [Moles/Vol] 19 mmol/L Low 21-31 [facility] Comment on above: Performed By: #### L [id number] ####[facility] ([facility])[address] [place] [address] Creatinine [Mass/Vol] 1.61 mg/dL High 0.60-1.20 [facility] Comment on above: Performed By: #### L [id number] ####[facility] ([facility] [place] [address] GLOMERULAR FILTRATION RATE ML/MIN/1.73 SQ M.PREDICTED 32.6 mL/min/1.73m*2 Low >60.[address] [facility] Comment on above: Result Comment: [facility]???s estimated glomerular filtration rate (eGFR) will no longer include consideration of race in its calculation. The National Kidney Foundation???s eGFR Task Force developed new recommendations for the estimation of the glomerular filtration rate in the [place] They recommend immediate implementation of the new equation refit without the race variable in all laboratories because the calculation does not include race. In addition to not including race in the calculation and reporting, it included diversity in its development, and has acceptable performance characteristics and potential consequences that do not disproportionately affect any one group of individuals. Performed By: #### L [id number] ####[facility] ([facility])[address] [place] [address] Glucose [Mass/Vol] 95 mg/dL Normal 70-100 [facility] Comment on above: Performed By: #### L [id number] ####[facility] ([facility])[address] [place] [address] Potassium [Moles/Vol] 4.2 mmol/L Normal 3.5-5.1 [facility] Comment on above: Performed By: #### L [id number] ####[facility] ([facility])[address] [place] [address] Sodium [Moles/Vol] 138 mmol/L Normal 136-145 [facility] Comment on above: Performed By: #### L [id number] ####[facility] ([facility])[address] [place] [address] Urea nitrogen [Mass/Vol] 34 mg/dL High 7-25 [facility] Comment on above: Performed By: #### L [id number] ####[facility] ([facility])[address] [place] [address] UREA NITROGEN/CREATININE (MASS RATIO) IN SER/PLAS 21.1 [facility] Comment on above: Performed By: #### L [id number] ####[facility] ([facility])[address] [place] [address] CBCon 04-04-2023 Erythrocyte distribution width (RBC) [Ratio] 14.6 % Normal 11.5-15.0 [facility] Comment on above: Performed By: #### L [id number] #### [facility] ([facility]) [address] [place] [address] ERYTHROCYTE MEAN CORPUSCULAR HEMOGLOBIN CONCENTRATION (G/DL) BY AUTOMATED 32.8 g/dL Normal 32.0-35.[address] [facility] Comment on above: Performed By: #### L [id number] #### [facility] ([facility]) [address] [place] [address] Hematocrit (Bld) [Volume fraction] 30.8 % Low 36.0-48.0 [facility] Comment on above: Performed By: #### L [id number] #### [facility] ([facility]) [address] [place] [address] Hemoglobin (Bld) [Mass/Vol] 10.1 g/dL Low 12.0-15.0 [facility] Comment on above: Performed By: #### L [id number] #### [facility] ([facility]) [address] [place] [address] MCH (RBC) [Entitic mass] 29.3 pg Normal 27.0-33.0 [facility] Comment on above: Performed By: #### L [id number] #### [facility] ([facility]) [address] [place] [address] MCV (RBC) [Entitic vol] 89.3 fL Normal 82.0-98.0 [facility] Comment on above: Performed By: #### L [id number] #### [facility] ([facility]) [address] [place] [address] PLATELETS (10*3/UL) IN BLOOD AUTOMATED COUNT 126 10*3/uL Low 150-400 [facility] Comment on above: Performed By: #### L [id number] #### [facility] ([facility]) [address] [place] [address] RBC (Bld) [#/Vol] 3.45 10*6/uL Low 3.80-5.00 [facility] Comment on above: Performed By: #### L [id number] #### [facility] ([facility]) [address] [place] [address] WBC (Bld) [#/Vol] 5.60 10*3/uL Normal 4.00-10.60 [facility] Comment on above: Performed By: #### L [id number] #### [facility] ([facility]) [address] [place] [address] DSon 04-04-2023 DS ----- ----- Attestation signed by Herve Mayorga MD at 04/05/2023 2:10 PM I personally saw and examined the patient on the same date of service as resident/fellow Dr. Bagley. I discussed the findings and therapeutic plan with the resident/fellow . I agree with the documentation, except for any edits/updates below. Teaching Physician's Revisions: Recovering well after TAVR POD1 Stable for discharge I spent 25 min on discharge day services ----- Admission Admitted 04/03/2023 for Nonrheumatic aortic valve stenosis. Trisha Parish is a 78 y.o. year old female patient being seen for follow up ELENA and to discuss TAVR. Had labs last week after nephrology apt. Says she's feeling much better. Denies chest pain and SOB, he was discussed at the multidisciplinary team meeting on 03/27/2023 with interventional cardiology and cardiothoracic surgery and deemed to be appropriate for TAVR and high risk candidate for SAVR. Shared decision making was performed with the patient and she agreed to TAVR. she is brought today for the procedure. Discharge Diagnosis Nonrheumatic aortic valve stenosis s/p TAVR Discharge Disposition Home or Self Care Discharge Medications Your medication list START taking these medications Instructions Last Dose Given Next Dose Due acetaminophen 325 mg tablet Commonly known as: Tylenol Take 2 tablets (650 mg) by mouth every 6 (six) hours if needed for mild pain (1-3 pain score) or moderate pain (4-7 pain score). aspirin 81 mg chewable tablet Chew 1 tablet (81 mg) in the morning. CONTINUE taking these medications Instructions Last Dose Given Next Dose Due ALPRAZolam 0.25 mg tablet Commonly known as: Xanax atorvastatin 80 mg tablet Commonly known as: Lipitor carvedilol 25 mg tablet Commonly known as: Coreg cholecalciferol (vitamin D3) 50 mcg (2,000 unit) capsule clopidogrel 75 mg tablet Commonly known as: Plavix docusate sodium 100 mg capsule Commonly known as: Colace hydrALAZINE 25 mg tablet Commonly known as: Apresoline lisinopril 10 mg tablet Take 1 tablet (10 mg) by mouth once daily as directed. MELATONIN ORAL NIFEdipine CC 60 mg 24 hr tablet Commonly known as: Adalat CC Take 1 tablet (60 mg) by mouth before breakfast. Do not crush, chew, or split. Where to Get Your Medications These medications were sent to [facility] - [place], [place] - [address], [facility] [address] acetaminophen 325 mg tablet aspirin 81 mg chewable tablet Activity Patient currently has no discharge activity orders Diet Patient currently has no discharge diet orders Allergies Demerol [meperidine] Hospital Course Patient successfully underwent TAVR, please see the operative report for more details. However in brief patient tolerated the procedure well. On the day of discharge patient was tolerating PO diet, pain was controlled on PO pain medications and was able to ambulate on her own. TTE and EKG were reviewed. RECOMMENDATIONS: 1. Continue aspirin 81 mg daily and Plavix 75 mg daily. 2. Echocardiogram the next morning. 3. Endocarditis prophylaxis for life after transcatheter aortic valve replacement. 4. Follow up in Cardiology and Cardiothoracic Surgery Clinic in 1 month with echocardiogram. Pertinent Physical Exam At Time of Discharge Physical Exam Vitals reviewed. Constitutional: Appearance: Normal appearance. HENT: Head: Normocephalic. Eyes: Pupils: Pupils are equal, round, and reactive to light. Cardiovascular: Rate and Rhythm: Rhythm irregular. Heart sounds: Murmur heard. Pulmonary: Effort: Pulmonary effort is normal. Abdominal: Palpations: Abdomen is soft. Musculoskeletal: General: Normal range of motion. Cervical back: Normal range of motion. Neurological: General: No focal deficit present. Mental Status: She is alert. Lab Results Labs Reviewed CBC - Abnormal Result Value Auto WBC 5.60 RBC 3.45 (*) Hemoglobin 10.1 (*) Hematocrit 30.8 (*) MCV 89.3 MCH 29.3 MCHC 32.8 RDW 14.6 Platelets 126 (*) BASIC METABOLIC PANEL - Abnormal Sodium 138 Potassium 4.2 Chloride 110 (*) CO2 19 (*) BUN 34 (*) Creatinine 1.61 (*) Glucose 95 Calcium 8.9 Anion Gap 13 eGFR 32.6 (*) BUN/Creatinine Ratio 21.1 BASIC METABOLIC PANEL - Abnormal Sodium 136 Potassium 4.1 Chloride 109 (*) CO2 20 (*) BUN 33 (*) Creatinine 1.58 (*) Glucose 140 (*) Calcium 8.7 Anion Gap 11 eGFR 33.3 (*) BUN/Creatinine Ratio 20.9 B-TYPE NATRIURETIC PEPTIDE - Abnormal BNP 213 (*) MRSA/MSSA DNA NASAL - Normal MSSA DNA Negative MRSA DNA Negative Narrative: Testing methodology is an automated qualitative in vitro diagnostic test for the direct detection a (more content not included)... [facility] NURSNOTEon 04-04-2023 NURSNOTE Pt discharged home w ith by car [facility] 30on 04-03-2023 30 The patient is Moder ately Stable - Low risk of patient condition declining or worsening The patient's goals for the shift include The clinical goals for the shift include Over the shift, the patient did make progress toward the following goals. Problem: Pain - Adult Goal: Verbalizes/displays adequate comfort level or baseline comfort level Outcome: Progressing Problem: Safety - Adult Goal: Free from fall injury Outcome: Progressing Problem: Discharge Planning Goal: Discharge to home or other facility with appropriate resources Outcome: Progressing Problem: Chronic Conditions and Co-morbidities Goal: Patient's chronic conditions and co-morbidity symptoms are monitored and maintained or improved Outcome: Progressing [facility] HPon 04-03-2023 HP H&P reviewed. The jordon mendez was examined and there are no changes to the H&P. she was discussed at the multidisciplinary team meeting on 03/27/2023 with interventional cardiology and cardiothoracic surgery and deemed to be appropriate for TAVR and high risk candidate for SAVR. Shared decision making was performed with the patient and she agreed to TAVR. she is brought today for the procedure. [facility] MRSA/MSSA DNA NASALon 2022 MRSA DNA Negative Normal Negative [facility] Comment on above: Order Comment: Testi ng methodology is an automated qualitative in vitro diagnostic test for the directdetection and differentiation of Staphylococcus aureus (SA) DNA and methicillin-resistant Staphylococcus aureus (MRSA) DNA from nasal swabs in patients at risk for nasal colonization. The test utilizes real-time polymerase chain reaction (PCR) for the amplification of MRSA/SA DNA and fluorogenic target-specific hybridization probes for the detection of the amplified DNA. A negative result does not preclude nasal colonization. Performed By: #### L [id number] ####[facility] ([facility])[address] [place] [address] MSSA DNA Negative Normal Negative [facility] Comment on above: Order Comment: Testi ng methodology is an automated qualitative in vitro diagnostic test for the directdetection and differentiation of Staphylococcus aureus (SA) DNA and methicillin-resistant Staphylococcus aureus (MRSA) DNA from nasal swabs in patients at risk for nasal colonization. The test utilizes real-time polymerase chain reaction (PCR) for the amplification of MRSA/SA DNA and fluorogenic target-specific hybridization probes for the detection of the amplified DNA. A negative result does not preclude nasal colonization. Performed By: #### L [id number] ####[facility] ([facility])[address] [place] [address] NURSNOTEon 04-03-2023 NURSNOTE Report called to Kameron hay RN. He denies questions/concerns. Normal [facility] TYPE AND SCREENon 04-03-2023 AB SCREEN Negative Normal [facility] Comment on above: Performed By: #### L [id number] #### [facility] ([facility]) [address] [place] [address] ABO group Nom (Bld) B Normal [facility] Comment on above: Performed By: #### L [id number] #### [facility] ([facility]) [address] [place] [address] RH TYPE IN BLOOD Positive Normal [facility] Comment on above: Performed By: #### L [id number] #### [facility] ([facility]) [address] [place] [address] Orders Onlyon 03-22-2023 Orders Only [id number] Trisha Praish 1945 F Date Provider Department [place] 03/22/2023 MARGARET COLLINS [facility] No family history on file [facility] HPon 2023 [facility] Cardiology - [facility] Subjective Trisha Parish is a 78 y.o. year old female patient being seen for follow up ELENA and to discuss TAVR. Had labs last week after nephrology apt. Says she's feeling much better. Denies chest pain and SOB. 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 Social History Tobacco Use Smoking status: Never Smokeless tobacco: Never Substance Use Topics Alcohol use: Never Drug use: Never HPI Trisha is seen in follow up. She is a 78 yo lady with hypertension, CAD s/p bypass surgery and history of paroxysmal AF s/p MAZE and PARISH ligation and prior stroke. She has carotid stenosis, moderate by angiogram in 2014. She has CKD and sees nephrology (in October 2016 blood testing showed Cr 1.49, BUN 26 better than 2016). She has moderate mitral regurgitation by echocardiogram in 2014 She developed epistaxis and gum bleeding and stopped aspirin and they stopped. In September 2022 [facility] with weakness. She was found to have second-degree AV block. Echocardiogram showed moderate to severe aortic valve stenosis. She underwent dual-chamber pacemaker placement. In February 2023 she was admitted with presyncope, NSTEMI and evidence of progression of her aortic valve stenosis to severe by echocardiography. A stress test showed lateral ischemia. Cardiac catheterization showed patent 2 out of 4 bypass grafts with medical therapy being recommended for management of her coronary artery disease. She then underwent transesophageal echocardiogram that confirmed presence of severe aortic valve stenosis by area and DVI measurement. A CT scan of the chest showed a grade 3 aortic valve calcifications with a total calcium scoring of 2280 consistent with severe aortic valve stenosis. She developed hyperkalemia after starting spironolactone and this was stopped. Currently she has not been doing any of significant physical activity. She denies chest pain and shortness of breath at rest. She has not had recurrence of presyncopal episodes and dizzy spells Review of Systems Cardiovascular: Positive for palpitations (not often). Musculoskeletal: Positive for arthritis and joint pain. All other systems reviewed and are negative. Objective Visit Vitals BP 127/65 (BP Location: Right arm, Patient Position: Sitting) Pulse 67 Ht 1.626 m (5' 4 ) Wt 64.9 kg (143 lb) SpO2 99% BMI 24.55 kg/m??? OB Status Postmenopausal Smoking Status Never BSA 1.71 m??? Physical Exam Constitutional: Appearance: She is well-developed. She is not ill-appearing. HENT: Head: Normocephalic and atraumatic. Nose: Nose normal. Eyes: General: No scleral icterus. Pupils: Pupils are equal, round, and reactive to light. Neck: Thyroid: No thyromegaly. Vascular: No JVD. Cardiovascular: Rate and Rhythm: Normal rate and regular rhythm. Pulses: Radial pulses are 2+ on the right side and 2+ on the left side. Heart sounds: Murmur heard. Systolic (RUSB, LLSB) murmur is present with a grade of 4/6. No friction rub. No gallop. Pulmonary: Effort: Pulmonary effort is normal. No respiratory distress. Breath sounds: Normal breath sounds. No wheezing or rales. Chest: Chest wall: No tenderness. Abdominal: General: Bowel sounds are normal. There is no distension. Palpations: Abdomen is soft. Tenderness: There is no abdominal tenderness. Musculoskeletal: General: No swelling. Cervical back: Neck supple. Skin: General: Skin is warm and dry. Neurological: General: No focal deficit present. Mental Status: She is alert and oriented to person, place, and time. Psychiatric: Mood and Affect: Mood normal. Behavior: Behavior is cooperative. Judgment: Judgment normal. Allergies Allergies Allergen Reactions Demerol [Meperidine] Medications Current Outpatient Medications: ALPRAZolam (Xanax) 0.25 mg tablet, Take 0.25 mg by mouth if needed at bedtime for anxiety., Disp: , Rfl: atorvastatin (Lipitor) 80 mg tablet, Take 80 mg by mouth 1 (one) time each day., Disp: , Rfl: carvedilol (Co (more content not included)... [facility] Office Visiton 2023 Follow-up visit [id number] Trisha Parish 1945 F Date Provider Department Center 2023 [facility] No family history on file Level of Service:[address] [place] OFFICE/OUTPATIENT ESTABLISHED HIGH MDM 40-54 MIN [facility] ANESon 02-23-2023 ANES ----- ----- Attestation signed by Matilda Valentin MD at 02/23/2023 1:07 PM By using the attestations below, the signing clinician agrees that I have read and verify that the documentation has been personally reviewed by me and ensure that the documentation accurately reflects the encounter. GC: I personally saw this patient on the day of the encounter, performed the diaz portion(s) of the service and participated in the management and confirm the resident's documentation. Please note there may be an additional personal documentation from me. ----- Patient: Trisha Parish Procedure Information Date/Time: 02/23/23 1030 Procedure: TRANSESOPHAGEAL ECHO (ELENA) [facility] Clinical information reviewed: Allergies Meds OB Status Physical Exam Airway Mallampati: III Neck ROM: full Cardiovascular Rhythm: regular Rate: normal Dental Pulmonary Breath sounds clear to auscultation Abdominal Abdomen: soft Bowel sounds: normal Anesthesia Plan ASA 3 other (Moderate sedation ) Anesthetic plan and risks discussed with patient. Use of blood products discussed with patient who consented to blood products. Additional Equipment Requests [facility] HPon 02-23-2023 HP ----- ----- Attestation signed by Matilda Valentin MD at 02/23/2023 1:07 PM By using the attestations below, the signing clinician agrees that I have read and verify that the documentation has been personally reviewed by me and ensure that the documentation accurately reflects the encounter. GC: I personally saw this patient on the day of the encounter, performed the diaz portion(s) of the service and participated in the management and confirm the resident's documentation. Please note there may be an additional personal documentation from me. ----- H&P reviewed. The patient was examined and there are no changes to the H&P. [facility] NURSNOTEon 02-23-2023 NURSNOTE Pt performed and pas sed bedside swallow study test. RN educated pt on d/c instructions. RN encouraged pt to voice any questions or concerns. Pt verbalizes no questions or concerns at this time. Pt was wheeled off of unit with all of belongings. [facility] HPon 02-21-2023 Cardiology Clinic No te Subjective Trisha Parish is a 77 y.o. year old female patient with a complex past medical history including atrial fibrillation status post cryo maze and left atrial appendage clipping in 2015, coronary artery disease status post four-v[place] [address] German, hypertension, 2-1 AV block status post pacemaker on 09/11/2022, mitral valve regurgitation, breast cancer status post mastectomy and chemotherapy, syncope, and chronic kidney disease seen in follow-up. Patient Active Problem List Diagnosis Heart block Acute renal failure syndrome (CMS/HCC) Anemia Atrial fibrillation ([facility]/HCC) Benign hypertensive renal disease Carotid artery stenosis Cerebrovascular accident (CMS/HCC) Coronary arteriosclerosis Essential hypertension Hypertensive disorder Hyperparathyroidism due to renal insufficiency (CMS/HCC) Breast CA ([facility]/HCC) Malignant neoplasm of female breast ([facility]/HCC) Proteinuria Stage 3 chronic kidney disease ([facility]/HCC) Stage 4 chronic kidney disease ([facility]/HCC) Type 2 diabetes mellitus ([facility]/HCC) Vitamin D deficiency 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 Social History Tobacco Use Smoking status: Never Smokeless tobacco: Never Substance Use Topics Alcohol use: Never Drug use: Never Update: 02/21/2023 She was hospitalized at [facility] for 3 days after presenting with dizziness and treated for hyperkalemia and JASMIN thought to be prerenal related to diuretic use Potassium was 6.3, Spironolactone was discontinued, lisinopril was reduced from 40 mg to 10 mg, and hydralazine was increased to 25 mg 3 times daily She is still experiencing presyncopal symptoms but improving No significant dyspnea BP has been at times low and other elevated She was hospitalized 02/04-02/07/23 [facility] and underwent coronary angiography and right heart catheterization. She was evaluated by CTS and recommended TAVR She is scheduled for a ELENA in 2 days Review of Systems Cardiovascular: Positive for near-syncope. Negative for chest pain, dyspnea on exertion, irregular heartbeat, leg swelling, orthopnea, palpitations, paroxysmal nocturnal dyspnea and syncope. Neurological: Positive for dizziness. Objective Visit Vitals BP 90/55 (BP Location: Left arm, Patient Position: Sitting, BP Cuff Size: Adult) Pulse 69 Ht 1.626 m (5' 4 ) Wt 62.8 kg (138 lb 6.4 oz) SpO2 99% BMI 23.76 kg/m??? Smoking Status Never BSA 1.68 m??? Physical Exam General: Awake, alert, NAD Pulm: Breath sounds clear to ascultation bilaterally with no wheeze, crackles or rhonchi Cards: Regular rate and rhythm, S1, S2. No S3 or S4 gallop. Murmur: none Abd: Soft, Nontender, physiologic bowel sounds are present Extr: Lower extremity edema: None. Skin: warm, dry, well perfused Neuro: A&Ox3, No gross deficits Allergies Allergies Allergen Reactions Demerol [Meperidine] Medications Current Outpatient Medications: ALPRAZolam (Xanax) 0.25 mg tablet, Take 0.25 mg by mouth if needed at bedtime for anxiety., Disp: , Rfl: atorvastatin (Lipitor) 80 mg tablet, Take 80 mg by mouth 1 (one) time each day., Disp: , Rfl: carvedilol (Coreg) 25 mg tablet, Take 25 mg by mouth with breakfast and with evening meal., Disp: , Rfl: cholecalciferol, vitamin D3, 50 mcg (2,000 unit) capsule, Take by mouth., Disp: , Rfl: clopidogrel (Plavix) 75 mg tablet, Take by mouth in the morning., Disp: , Rfl: [employer] Stephy 2 Sensor kit, , Disp: , Rfl: hydrALAZINE (Apresoline) 25 mg tablet, Take 25 mg by mouth in the morning and at bedtime., Disp: , Rfl: MELATONIN ORAL, Take by mouth 4 (four) times a week. Sun,,Sun,Sun, Disp: , Rfl: NIFEdipine CC (Adalat CC) 60 mg 24 hr tablet, Take 1 tablet (60 mg) by mouth before breakfast. Do not crush, chew, or split., Disp: 30 tablet, Rfl: 0 sennosides-docusate sodium (Edna-Colace) 8.6-50 mg tablet, Take 1 tablet by mouth in the morning. Sun,,Sun,Sun, Disp: , Rfl: anastrozole (Arimidex) 1 mg chemo tablet, anastrozole 1 mg tablet, Disp: , Rfl: docusate sodium (Colace) 100 mg capsule, 1 capsule in the morning., Disp: , Rfl: famotidine (Pepcid) 20 mg tablet, in the morning., Disp: , Rfl: Recent Labs 02/20/2023 Sodium 138, potassium 4.4, chloride 109, CO2 22.7, BUN 34, serum creatinine 1.68, estimated GFR 31% 02/18/2023 WBC 7.2, hemoglobin 10.8, hematocrit 32.7, platelets 185 Lab Results Component Value Date NA 140 02/07/2023 K 3.9 02/07/2023 CL 109 (H) 02/07/2023 CO2 25 02/07/2023 BUN 32 (H) 02/07/2023 CREATININE 1.40 (H) 02/07/2023 GLUCOSE 115 (H) 02/07/2023 CALCIUM 8.6 02/07/2023 Lab Results Component Value Date WBC 6.44 02/06 (more content not included)... Normal [facility] Office Visiton 02-21-2023 Follow-up visit [id number] Trisha Parish 1945 F Date Provider Department Center 02/21/2023 [id number] PIÑA [facility] No family history on file Level of Service:07679 [place] OFFICE/OUTPATIENT ESTABLISHED MOD MDM 30-39 MIN Reason for Visit and Comments: Follow-up [542417] - Pt discharge from hospital 02/20/23 for high potassium , dizziness [facility] Basic Metabolic Panelon 02-03 Anion gap [Moles/Vol] 10.7 mmol/L Normal 6.0-15.0 [facility] Comment on above: Performed By: #### B MP ####[facility] [id number] Calcium [Mass/Vol] 8.4 mg/dL Low 8.6-10.3 [facility] Comment on above: Performed By: #### B MP ####[facility] [place] [id number] [facility] Chloride [Moles/Vol] 109 mmol/L High 98-107 [facility] Comment on above: Performed By: #### B MP ####[facility] [place] [id number] [facility] CO2 [Moles/Vol] 22.7 mmol/L Normal 21.0-31.0 [facility] Comment on above: Performed By: #### B MP ####[place] [id number] [facility] Creatinine [Mass/Vol] 1.68 mg/dL High 0.60-1.20 [facility] Comment on above: Performed By: #### B MP ####[place] [id number] [facility] Creatinine Clr Calc Pharmacy 24.22 Normal [facility] Comment on above: Result Comment: PERF ORMED BY: [facility] [address] [place] [id number] PATHOLOGIST PEN RULER OPERATOR MELISSA QUINN M.D. Performed By: #### B MP ####[address] GFR/1.73 sq M.predicted MDRD (S/P/Bld) [Vol rate/Area] 31.134 mL/min/{1.73_m2} Normal [facility] Comment on above: Performed By: #### B MP ####[place] [id number] [facility] Glucose [Mass/Vol] 94 mg/dL Normal 70-100 [facility] Comment on above: Result Comment: [place] Glucose Reference Range is dependent on time and content of last meal. Glucose of more than 200 mg/dL in a nonstressed, ambulatory subject supports the diagnosis of Diabetes Mellitus. ADA recommended reference range Performed By: #### B MP ####[place] [id number] [facility] Potassium [Moles/Vol] 4.4 mmol/L Normal 3.5-5.1 [facility] Comment on above: Performed By: #### B MP ####[place] [id number] [facility] Sodium [Moles/Vol] 138 mmol/L Normal 136-145 [facility] Comment on above: Performed By: #### B MP ####[address] [place] [address] [facility] Urea nitrogen [Mass/Vol] 34 mg/dL High 7-25 [facility] Comment on above: Performed By: #### B MP ####[facility] [id number] [address] Glucose Poct Glucometerson 0 02-20-2023 Glucose [Mass/Vol] 92 mg/dL Normal [facility] Comment on above: Result Comment: [place] Glucose Reference Range is dependent on time and content of last meal. Glucose of more than 200 mg/dL in a nonstressed, ambulatory subject supports the diagnosis of Diabetes Mellitus. PERFORMED BY: [place] [address] PATHOLOGIST PEN RULER OPERATOR MELISSA QUINN M.D. Performed By: #### G LORENZO ####Point of Care testing, Basic Metabolic Panelon 02-03 Anion gap [Moles/Vol] 9.8 mmol/L Normal 6.0-15.0 [facility] Comment on above: Performed By: #### B MP #### [facility] [address] [place] [address] Calcium [Mass/Vol] 8.4 mg/dL Low 8.6-10.3 [facility] Comment on above: Performed By: #### B MP #### [facility] [address] [place] [address] Chloride [Moles/Vol] 108 mmol/L High 98-107 [facility] Comment on above: Performed By: #### B MP #### [facility] [address] [place] [address] [place] CO2 [Moles/Vol] 25.3 mmol/L Normal 21.0-31.0 [facility] Comment on above: Performed By: #### B MP #### [facility] [address] Creatinine [Mass/Vol] 1.62 mg/dL High 0.60-1.20 [facility] Comment on above: Performed By: #### B MP #### [place] [address] [place] Creatinine Clr Calc Pharmacy 25.11 Normal [facility] Comment on above: Result Comment: PERF ORMED BY: [address] [place] [address] PATHOLOGIST PEN RULER OPERATOR MELISSA QUINN M.D. Performed By: #### B MP #### [place] [address] [place] GFR/1.73 sq M.predicted MDRD (S/P/Bld) [Vol rate/Area] 32.523 mL/min/{1.73_m2} Normal [facility] Comment on above: Performed By: #### B MP #### [address] Glucose [Mass/Vol] 91 mg/dL Normal 70-100 [facility] Comment on above: Result Comment: [place] om Glucose Reference Range is dependent on time and content of last meal. Glucose of more than 200 mg/dL in a nonstressed, ambulatory subject supports the diagnosis of Diabetes Mellitus. ADA recommended reference range Performed By: #### B MP #### [place] [address] [place] Potassium [Moles/Vol] 4.1 mmol/L Normal 3.5-5.1 [facility] Comment on above: Performed By: #### B MP #### [place] [address] [place] Sodium [Moles/Vol] 139 mmol/L Normal 136-145 [facility] Comment on above: Performed By: #### B MP #### [facility] [address] [place] [address] [place] Urea nitrogen [Mass/Vol] 34 mg/dL High 7-25 [facility] Comment on above: Performed By: #### B MP #### [facility] [address] [place] [address] [place] Glucose Poct Glucometerson 0 02-19-2023 Glucose [Mass/Vol] 143 mg/dL Normal [facility] Comment on above: Result Comment: [place] om Glucose Reference Range is dependent on time and content of last meal. Glucose of more than 200 mg/dL in a nonstressed, ambulatory subject supports the diagnosis of Diabetes Mellitus. PERFORMED BY: [address] [address] PATHOLOGIST PEN RULER OPERATOR MELISSA QUINN M.D. Performed By: #### G LULS #### Point of Care testing , Glucose [Mass/Vol] 101 mg/dL Normal [facility] Comment on above: Result Comment: [facility] Glucose Reference Range is dependent on time and content of last meal. Glucose of more than 200 mg/dL in a nonstressed, ambulatory subject supports the diagnosis of Diabetes Mellitus. PERFORMED BY: [address] [address] PATHOLOGIST PEN RULER OPERATOR MELISSA QUINN M.D. Performed By: #### G LULS #### Point of Care testing , US renal BIon 02-19-2023 US renal BI [facility] Main [place] [address] [place] [address] Ultrasound Report Signed Patient: Trisha Parish MR#: [id number] : 1945 Acct:[id number] Age/Sex: 77 / F ADM Date: 02/17/23 Loc: Room: [address] [place] [address] Type: ADM IN Attending Dr: Mikel Mir MD Ordering Provider: Mikel Mir MD Date of Service: 02/19/23 US/US renal BI: JASMIN r/o Ballinger or obstruction Copies to: Mikel Mir MD BILATERAL RENAL AND BLADDER ULTRASOUND CLINICAL HISTORY: Acute kidney injury COMPARISON: None Estimation of renal size is approximately 9.33 cm on the right and 7.57 cm on the left. No contour deforming mass, shadowing stone or hydronephrosis. Small cyst right kidney measuring 11 mm. Cortical thinning left kidney. The urinary bladder is partially distended with a volume of 8.46 ml. No shadowing stone or focal lesion. US/US renal BI IMPRESSION: No acute findings. Impression dictated by: Baldo Quintanilla Jr., D.O.02/19/2023 3:58 PM Dictation Location: [address]: Jenna Corado Transcribed By: LETITIA 02/19/231557 Dictated By: Baldo Quintanilla Jr, 02/19/231556 Signed By: 02/19/231557 Normal [facility] Coagulation Profileon 2022 aPTT Coag (Bld) [Time] 31.5 s Normal 25.1-36.5 [facility] Comment on above: Result Comment: PERF ORMED BY: [facility] [address] [place] [id number] PATHOLOGIST PEN RULER OPERATOR MELISSA QUINN M.D. Performed By: #### C MP, MG, PP, CBCNO ####[place] [id number] [facility] INR Coag (PPP) [Relative time] 1.3 {INR} [facility] Comment on above: Result Comment: INR Therapeutic Range A) Pre- and Peroperative OAT started two weeks before surgery. NOT HIP SURGERY: 1.5 - 2.5 HIP SURGERY: 2 - 3 B) Primary and secondary prevention of venous THROMBOSIS: 2 - 3 C) Active venous thrombosis, pulmonary embolism and prevention of recurrent venous thrombosis: 2 - 3 D) Prevention of arterial thromboembolism including patients with mechanical heart valves: 3 - 4.5 Performed By: #### C MP, MG, PP, CBCNO ####[place] [id number] [facility] PT Coag (PPP) [Time] 15.2 s High 9.0-12.9 [facility] Comment on above: Performed By: #### C MP, MG, PP, CBCNO ####[address] [address] [facility] Comprehensive Metabolic Pane otto 02-18-2023 Albumin [Mass/Vol] 3.5 g/dL Normal 3.5-5.7 [facility] Comment on above: Performed By: #### C MP, MG, PP, CBCNO ####[address] [address] [facility] Albumin/Globulin [Mass ratio] 1.3 {ratio} Normal [facility] Comment on above: Performed By: #### C MP, MG, PP, CBCNO ####[address] [address] [facility] ALP [Catalytic activity/Vol] 83 U/L Normal 34-104 [facility] Comment on above: Performed By: #### C MP, MG, PP, CBCNO ####[place] [id number] [facility] ALT [Catalytic activity/Vol] 13 U/L Normal 7-52 [facility] Comment on above: Performed By: #### C MP, MG, PP, CBCNO ####[place] [id number] [facility] Anion gap [Moles/Vol] 11.0 mmol/L Normal 6.0-15.0 [facility] Comment on above: Performed By: #### C MP, MG, PP, CBCNO ####[place] [id number] [facility] AST [Catalytic activity/Vol] 16 U/L Normal 13-39 [facility] Comment on above: Performed By: #### C MP, MG, PP, CBCNO ####[place] [id number] [facility] Bilirubin [Mass/Vol] 0.7 mg/dL Normal 0.3-1.0 [facility] Comment on above: Performed By: #### C MP, MG, PP, CBCNO ####[place] [id number] [facility] Calcium [Mass/Vol] 8.4 mg/dL Low 8.6-10.3 [facility] Comment on above: Performed By: #### C MP, MG, PP, CBCNO ####[place] [id number] [facility] Chloride [Moles/Vol] 108 mmol/L High 98-107 [facility] Comment on above: Performed By: #### C MP, MG, PP, CBCNO ####[place] [id number] [facility] CO2 [Moles/Vol] 24.4 mmol/L Normal 21.0-31.0 [facility] Comment on above: Performed By: #### C MP, MG, PP, CBCNO ####[address] Creatinine [Mass/Vol] 1.91 mg/dL High 0.60-1.20 [facility] Comment on above: Performed By: #### C MP, MG, PP, CBCNO ####[address] Creatinine Clr Calc Pharmacy 21.30 [facility] Comment on above: Performed By: #### C MP, MG, PP, CBCNO ####[place] [id number] [address] GFR/1.73 sq M.predicted MDRD (S/P/Bld) [Vol rate/Area] 26.691 mL/min/{1.73_m2} [facility] Comment on above: Performed By: #### C MP, MG, PP, CBCNO ####[address] Globulin (S) [Mass/Vol] 2.7 g/dL [facility] Comment on above: Performed By: #### C MP, MG, PP, CBCNO ####[address] Glucose [Mass/Vol] 92 mg/dL Normal 70-100 [facility] Comment on above: Result Comment: [place] Glucose Reference Range is dependent on time and content of last meal. Glucose of more than 200 mg/dL in a nonstressed, ambulatory subject supports the diagnosis of Diabetes Mellitus. ADA recommended reference range Performed By: #### C MP, MG, PP, CBCNO ####[address] Potassium [Moles/Vol] 4.4 mmol/L Normal 3.5-5.1 [facility] Comment on above: Performed By: #### C MP, MG, PP, CBCNO ####[address] [place] [address] [place] Protein [Mass/Vol] 6.2 g/dL Low 6.4-8.9 [facility] Comment on above: Performed By: #### C MP, MG, PP, CBCNO ####[facility] [id number] Sodium [Moles/Vol] 139 mmol/L Normal 136-145 [facility] Comment on above: Performed By: #### C MP, MG, PP, CBCNO ####[facility] [id number] [place] [address] Urea nitrogen [Mass/Vol] 35 mg/dL High 7- [facility] Comment on above: Performed By: #### C MP, MG, PP, CBCNO ####[facility] [id number] [place] [address] [place] Dipstick and Microscopicon 0 02-18-2023 Appearance (U) Clear Normal Clear [facility] Comment on above: Order Comment: Name Collection Type:: Clean-Voided Midstream Performed By: #### A DDONUAPLUS, CUU #### [facility] [address] [place] [address] [place] Bacteria,Urine None Seen Normal None Seen [facility] Comment on above: Order Comment: Name Collection Type:: Clean-Voided Midstream Performed By: #### A DDONUAPLUS, CUU #### [facility] [address] [place] [address] [place] Bilirubin,Urine Negative Normal Negative [facility] Comment on above: Order Comment: Name Collection Type:: Clean-Voided Midstream Performed By: #### A DDONUAPLUS, CUU #### [facility] [address] [place] [address] [place] Color (U) Yellow Normal Yellow [facility] Comment on above: Order Comment: Name Collection Type:: Clean-Voided Midstream Performed By: #### A DDONUAPLUS, CUU #### [facility] [address] [place] [address] [place] Glucose Ql (U) Normal Normal Normal [facility] Comment on above: Order Comment: Name Collection Type:: Clean-Voided Midstream Performed By: #### A DDONUAPLUS, CUU #### [address] Hyaline Casts,Urine None Seen Normal 0-8 [facility] Comment on above: Order Comment: Name Collection Type:: Clean-Voided Midstream Result Comment: PERF ORMED BY: [place] [address] PATHOLOGIST PEN RULER OPERATOR MELISSA QUINN M.D. Performed By: #### A DDONUAPLUS, CUU #### [address] Ketones Ql (U) Negative Normal Negative [facility] Comment on above: Order Comment: Name Collection Type:: Clean-Voided Midstream Performed By: #### A DDONUAPLUS, CUU #### [address] Leukocyte esterase Test strip Ql (U) 3+ High Negative [facility] Comment on above: Order Comment: Name Collection Type:: Clean-Voided Midstream Performed By: #### A DDONUAPLUS, CUU #### [place] [address] [place] Nitrite,Urine Negative Normal Negative [facility] Comment on above: Order Comment: Name Collection Type:: Clean-Voided Midstream Performed By: #### A DDONUAPLUS, CUU #### [place] [address] [place] Occult Blood,Urine Negative Normal Negative [facility] Comment on above: Order Comment: Name Collection Type:: Clean-Voided Midstream Result Comment: PERF ORMED BY: [place] [address] PATHOLOGIST PEN RULER OPERATOR MELISSA QUINN M.D. Performed By: #### A DDONUAPLUS, CUU #### [place] [address] [place] pH (U) 7.5 [pH] Normal 5.0-9.0 [facility] Comment on above: Order Comment: Name Collection Type:: Clean-Voided Midstream Performed By: #### A DDONUAPLUS, CUU #### [facility] [address] [place] [address] Protein,Urine Negative Normal Negative [facility] Comment on above: Order Comment: Name Collection Type:: Clean-Voided Midstream Performed By: #### A DDONUAPLUS, CUU #### [facility] [address] [place] [address] RBC LM.HPF (Urine sed) [#/Area] 0 /[HPF] Normal 0-4 [facility] Comment on above: Order Comment: Name Collection Type:: Clean-Voided Midstream Performed By: #### A DDONUAPLUS, CUU #### [address] Specificy [place],Urine 1.006 Normal 1.001-1.030 [facility] Comment on above: Order Comment: Name Collection Type:: Clean-Voided Midstream Performed By: #### A DDONUAPLUS, CUU #### [address] Squamous Epithelial Cell,Urine None Seen Normal 0-2 [facility] Comment on above: Order Comment: Name Collection Type:: Clean-Voided Midstream Performed By: #### A DDONUAPLUS, CUU #### [facility] [address] [place] [address] Urobilinogen,Urine Normal Normal Normal [facility] Comment on above: Order Comment: Name Collection Type:: Clean-Voided Midstream Performed By: #### A DDONUAPLUS, CUU #### [facility] [address] [place] [address] [place] WBC,Urine 5-9 High 0-4 [facility] Comment on above: Order Comment: Name Collection Type:: Clean-Voided Midstream Performed By: #### A DDONUAPLUS, CUU #### [address] ECG 12 lead ECGon 02-18-2023 ECG 12 lead ECG [facility] Main [place] [address] [place], [place] [id number] Electrocardiograph Report Signed Patient: Trisha Parish MR#: [id number] : 1945 Acct:[id number] Age/Sex: 77 / F ADM Date: 02/17/23 Loc: Room: [address] [place] [address] Type: ADM IN Attending Dr: Kevin Mejia MD Ordering Provider: Cate Humphrey MD Date of Service: 02/18/23 ECG/ECG 12 lead ECG: elevated troponin Copies to: Test Reason : Blood Pressure : / mmHG Vent. Rate : 067 BPM Atrial Rate : 067 BPM P-R Int : 160 ms QRS Dur : 162 ms QT Int : 482 ms P-R-T Axes : 062 -52 087 degrees QTc Int : 509 ms Normal sinus rhythm Left axis deviation Left bundle branch block Abnormal ECG No previous ECGs available Confirmed by NESSA ABDI MD ([id number]) on 02/18/2023 10:47:09 AM Referred By: Electronically Signed By:NESSA ABDI MD Transcribed By: MUS Signed By Nessa Abdi MD 0 02/18/23 1047 Normal [facility] Glucose Poct Glucometerson 0 02-18-2023 Glucose [Mass/Vol] 94 mg/dL Normal [facility] Comment on above: Result Comment: [facility] Glucose Reference Range is dependent on time and content of last meal. Glucose of more than 200 mg/dL in a nonstressed, ambulatory subject supports the diagnosis of Diabetes Mellitus. PERFORMED BY: [place] [address] PATHOLOGIST PEN RULER OPERATOR MELISSA QUINN M.D. Performed By: #### G LULS #### Point of Care testing , Glucose [Mass/Vol] 194 mg/dL Normal [facility] Comment on above: Result Comment: [facility] Glucose Reference Range is dependent on time and content of last meal. Glucose of more than 200 mg/dL in a nonstressed, ambulatory subject supports the diagnosis of Diabetes Mellitus. PERFORMED BY: [place] [address] PATHOLOGIST PEN RULER OPERATOR MELISSA QUINN M.D. Performed By: #### G LORENZO #### Point of Care testing , Hemogram CBC Without Diffon 02-18-2023 Erythrocyte distribution width (RBC) [Ratio] 14.4 % Normal 11.9-15.3 [facility] Comment on above: Performed By: #### C MP, MG, PP, CBCNO #### [address] Hematocrit (Bld) [Volume fraction] 32.7 % Low 34.0-46.4 [facility] Comment on above: Performed By: #### C MP, MG, PP, CBCNO #### [address] Hemoglobin (Bld) [Mass/Vol] 10.8 g/dL Low 11.8-15.4 [facility] Comment on above: Performed By: #### C MP, MG, PP, CBCNO #### [address] MCH (RBC) [Entitic mass] 28.8 pg Normal 24.7-34.3 [facility] Comment on above: Performed By: #### C MP, MG, PP, CBCNO #### [address] MCV (RBC) [Entitic vol] 87.0 fL Normal 80-100 [facility] Comment on above: Performed By: #### C MP, MG, PP, CBCNO #### [address] Mean Corpuscular HGB Conc 33.1 g/dL Normal 32.0-35.0 [facility] Comment on above: Performed By: #### C MP, MG, PP, CBCNO #### [address] Platelet mean volume (Bld) [Entitic vol] 10.2 fL Normal 6.3-10.7 [facility] Comment on above: Result Comment: PERF ORMED BY: [facility] [address] [place] [address] PATHOLOGIST PEN RULER OPERATOR MELISSA QUINN M.D. Performed By: #### C MP, MG, PP, CBCNO #### [facility] [address] Platelets (Bld) [#/Vol] 185 10*3/uL Normal 150-450 [facility] Comment on above: Performed By: #### C MP, MG, PP, CBCNO #### [facility] [address] RBC (Bld) [#/Vol] 3.76 10*6/uL Normal 3.60-5.00 [facility] Comment on above: Performed By: #### C MP, MG, PP, CBCNO #### [facility] [address] WBC (Bld) [#/Vol] 7.2 10*3/uL Normal 3.8-11.6 [facility] Comment on above: Performed By: #### C MP, MG, PP, CBCNO #### [facility] [address] Magnesiumon 02-18-2023 Magnesium [Mass/Vol] 1.9 mg/dL Normal 1.9-2.7 [facility] Comment on above: Result Comment: PERF ORMED BY: [facility] [address] [place] [address] PATHOLOGIST PEN RULER OPERATOR MELISSA QUINN M.D. Performed By: #### C MP, MG, PP, CBCNO ####[facility] [id number] [address] Troponin I High Sensitivityo n 02-18-2023 Troponin I High Sensitivity 55.0 pg/mL Off scale high 0.0-15.0 [facility] Comment on above: Result Comment: Crit ical Result : Called to and read back by: ROYAL DAILY at: 02/18/2023 07:39:39 by:[id number] PERFORMED BY: [place] [address] PATHOLOGIST PEN RULER OPERATOR MELISSA QUINN M.D. Performed By: #### H S TROP #### [facility] [address] [place], [place] [id number] [facility] Urine Cultureon 02-18-2023 Bacteria identified Cx Nom (U) >100,000 colonies/ml mixed bacterial skin contaminants 2 Days PERFORMED BY: [place] [address] PATHOLOGIST PEN RULER OPERATOR MELISSA QUINN M.D. Normal [facility] Comment on above: Performed By: #### A DDONLIZZY, CUU #### [facility] [address] [place] [address] Telephoneon 02-16-2023 Telephone [id number] Trisha Parish 1945 F Date Provider Department Center 02/16/2023 WILY ASHLEY [facility] No family history on file [facility] Orders Onlyon 02-09-2023 Orders Only [id number] Trisha Parish 1945 F Date Provider Department Center 02/09/2023 MARGARET COLLINS [facility] CARD CT [facility] No family history on file [facility] 30on 02-07-2023 30 The patient is Moder ately Stable - Low risk of patient condition declining or worsening The patient's goals for the shift include comfort The clinical goals for the shift include VSS Over the shift, the patient did not make progress toward the following goals. Barriers to progression include . Recommendations to address these barriers include . Normal [facility] 30 The patient is Moder ately Stable - Low risk of patient condition declining or worsening The patient's goals for the shift include comfort, rest The clinical goals for the shift include stable Over the shift, the patient did not make progress toward the following goals. Barriers to progression include . Recommendations to address these barriers include . Normal [facility] BASIC METABOLIC PANELon 070 Anion gap [Moles/Vol] 10 mmol/L Normal - [facility] Comment on above: Performed By: #### L AB15 ####[facility] ([facility])[address] [place] [address] Calcium [Mass/Vol] 8.6 mg/dL Normal 8.6-10.3 [facility] Comment on above: Performed By: #### L AB15 ####[facility] ([facility]AKER)[address] [place] [address] Chloride [Moles/Vol] 109 mmol/L High 98-107 [facility] Comment on above: Performed By: #### L [id number] ####[facility] ([facility] [place] [address] CO2 [Moles/Vol] 25 mmol/L Normal 21-31 [facility] Comment on above: Performed By: #### L [id number] ####[facility] ([facility] [place] [address] Creatinine [Mass/Vol] 1.40 mg/dL High 0.60-1.20 [facility] Comment on above: Performed By: #### L [id number] ####[facility] ([facility])[address] [place] [address] GLOMERULAR FILTRATION RATE ML/MIN/1.73 SQ M.PREDICTED 38.7 mL/min/1.73m*2 Low >60.[address] [facility] Comment on above: Result Comment: [facility]???s estimated glomerular filtration rate (eGFR) will no longer include consideration of race in its calculation. The National Kidney Foundation???s eGFR Task Force developed new recommendations for the estimation of the glomerular filtration rate in the [place] They recommend immediate implementation of the new equation refit without the race variable in all laboratories because the calculation does not include race. In addition to not including race in the calculation and reporting, it included diversity in its development, and has acceptable performance characteristics and potential consequences that do not disproportionately affect any one group of individuals. Performed By: #### L [id number] ####[facility] ([facility] [place] [address] Glucose [Mass/Vol] 115 mg/dL High 70-100 [facility] Comment on above: Performed By: #### L [id number] ####[facility] ([facility])[address] [place] [address] Potassium [Moles/Vol] 3.9 mmol/L Normal 3.5-5.1 [facility] Comment on above: Performed By: #### L [id number] ####[facility] ([facility])[address] [place] [address] Sodium [Moles/Vol] 140 mmol/L Normal 136-145 [facility] Comment on above: Performed By: #### L [id number] ####[facility] ([facility])[address] [place] [address] Urea nitrogen [Mass/Vol] 32 mg/dL High 7-25 [facility] Comment on above: Performed By: #### L [id number] ####[facility] ([facility])[address] [place] [address] UREA NITROGEN/CREATININE (MASS RATIO) IN SER/PLAS 22.9 Normal [facility] Comment on above: Performed By: #### L [id number] ####[facility] ([facility])[address] [place] [address] MAGNESIUMon 02-07-2023 Magnesium [Mass/Vol] 2.0 mg/dL Normal 1.9-2.7 [facility] Comment on above: Performed By: #### L [id number] #### [facility] ([facility]) [address] [place] [address] BASIC METABOLIC PANELon 07-0 Anion gap [Moles/Vol] 10 mmol/L Normal 7-20 [facility] Comment on above: Performed By: #### L [id number] #### [facility] ([facility]) [address] [place] [address] Calcium [Mass/Vol] 8.6 mg/dL Normal 8.6-10.3 [facility] Comment on above: Performed By: #### L [id number] #### [facility] ([facility] [address] [place] [address] Chloride [Moles/Vol] 109 mmol/L High 98-107 [facility] Comment on above: Performed By: #### L [id number] #### [facility] ([facility]) [address] [place] [address] CO2 [Moles/Vol] 25 mmol/L Normal 21-31 [facility] Comment on above: Performed By: #### L [id number] #### [facility] ([facility]) [address] [place] [address] Creatinine [Mass/Vol] 1.32 mg/dL High 0.60-1.20 [facility] Comment on above: Performed By: #### L [id number] #### [facility] ([facility]) [address] [place] [address] GLOMERULAR FILTRATION RATE ML/MIN/1.73 SQ M.PREDICTED 41.6 mL/min/1.73m*2 Low >60.[address] [facility] Comment on above: Result Comment: [facility]???s estimated glomerular filtration rate (eGFR) will no longer include consideration of race in its calculation. The National Kidney Foundation???s eGFR Task Force developed new recommendations for the estimation of the glomerular filtration rate in the [place] They recommend immediate implementation of the new equation refit without the race variable in all laboratories because the calculation does not include race. In addition to not including race in the calculation and reporting, it included diversity in its development, and has acceptable performance characteristics and potential consequences that do not disproportionately affect any one group of individuals. Performed By: #### L [id number] #### [facility] ([facility]) [address] [place] [address] Glucose [Mass/Vol] 142 mg/dL High 70-100 [facility] Comment on above: Performed By: #### L [id number] #### [facility] ([facility]) [address] [place] [address] Potassium [Moles/Vol] 3.8 mmol/L Normal 3.5-5.1 [facility] Comment on above: Performed By: #### L [id number] #### [facility] ([facility] [address] [place] [address] Sodium [Moles/Vol] 140 mmol/L Normal 136-145 [facility] Comment on above: Performed By: #### L [id number] #### [facility] ([facility]) [address] [address] Urea nitrogen [Mass/Vol] 31 mg/dL High 7-25 [facility] Comment on above: Performed By: #### L [id number] #### [facility] ([facility]) [address] [place] [address] UREA NITROGEN/CREATININE (MASS RATIO) IN SER/PLAS 23.5 Normal [facility] Comment on above: Performed By: #### L [id number] #### [facility] ([facility]) [address] [address] CBCon 02-06-2023 Erythrocyte distribution width (RBC) [Ratio] 14.1 % Normal 11.5-15.0 [facility] Comment on above: Performed By: #### L [id number] #### [facility] ([facility]) [address] [address] ERYTHROCYTE MEAN CORPUSCULAR HEMOGLOBIN CONCENTRATION (G/DL) BY AUTOMATED 33.6 g/dL Normal 32.0-35.[address] [facility] Comment on above: Performed By: #### L [id number] #### [facility] ([facility]) [address] [place] [address] Hematocrit (Bld) [Volume fraction] 33.3 % Low 36.0-48.0 [facility] Comment on above: Performed By: #### L [id number] #### [facility] ([facility]) [address] [address] Hemoglobin (Bld) [Mass/Vol] 11.2 g/dL Low 12.0-15.0 [facility] Comment on above: Performed By: #### L [id number] #### [facility] ([facility]) [address] [place] [address] MCH (RBC) [Entitic mass] 29.3 pg Normal 27.0-33.0 [facility] Comment on above: Performed By: #### L [id number] #### [facility] ([facility]) [address] [place] [address] MCV (RBC) [Entitic vol] 87.2 fL Normal 82.0-98.0 [facility] Comment on above: Performed By: #### L [id number] #### [facility] ([facility]) [address] [place] [address] PLATELETS (10*3/UL) IN BLOOD AUTOMATED COUNT 152 10*3/uL Normal 150-400 [facility] Comment on above: Performed By: #### L [id number] #### [facility] ([facility]) [address] [place] [address] RBC (Bld) [#/Vol] 3.82 10*6/uL Normal 3.80-5.00 [facility] Comment on above: Performed By: #### L [id number] #### [facility] ([facility]) [address] [place] [address] WBC (Bld) [#/Vol] 6.44 10*3/uL Normal 4.00-10.60 [facility] Comment on above: Performed By: #### L [id number] #### [facility] ([facility]) [address] [facility] [place] [address] CONSULTon 02-06-2023 CONSULT Inpatient consult to Cardiothoracic Surgery Consult performed by: Rudi Caruso NP Consult ordered by: Margaret Alvarez NP Reason for consult: TAVR History Of Present Illness Trisha Parish is a 77 y.o. female with PMH of A-Fib s/p CryoMaze and Left Atrial Appendage Clipping 2014, CAD s/p CABG x [address] 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 Described she was standing in the shower, felt dizzy and felt she was about to pass out. Denies fall, LOC or head injury, denies CP. Troponin from outside hospital was elevated (1999), troponin here 0.27>0.21>0.25. Her BP had been running on the higher side per patient for which she saw her beet worker Dr. Soto- medications were adjusted and pacemaker was interrogated at prior office visit. She underwent echocardiogram on 02/05 that showed EF 55%, Grade 1, mild diastolic dysfunction, Moderate-Severe Aortic Stenosis (Valve area 0.9 cm???, mean gradient 33.00 mmHg, max gradient 51.00 mmHg). Underwent perfusion stress test 02/05- Positive perfusion stress test for ischemia, Abnormal myocardial perfusion with soft tissue artifact, lateral reversible perfusion defect abnormalities consistent with ischemia. Cardiac Angiogram was performed 02/05- 2 out of 4 bypass grafts are patent (CHURCH-LAD, SVG-D2), she has normal filling pressures and CI and CO were preserved. CT Surgery was consulted for surgical evaluation and recommendations for Severe Aortic Valve Stenosis and evaluation for TAVR. Patient was see bedside by CT Surgery Team and Dr. Lamas. She was resting comfortably in her chair. Denied chest pain, palpitations, SOB. Oxygenating well on room air. Endorses her BP has been running high while being here and medications are being adjusted. Past Medical History She has a past medical history of A-fib ([facility]), Cancer ([facility]), Coronary artery disease, Hypertension, Myocardial infarct ([facility]), and Stroke ([facility]). Surgical History She has a past surgical history that includes Breast surgery; Hysterectomy; Cholecystectomy; and Coronary artery bypass graft. Social History She reports that she has never smoked. She has never used smokeless tobacco. She reports that she does not drink alcohol and does not use drugs. Allergies Demerol [meperidine] Medications Medications Prior to Admission Medication Sig Dispense Refill Last Dose ALPRAZolam (Xanax) 0.25 mg tablet Take 0.25 mg by mouth if needed at bedtime for anxiety. anastrozole (Arimidex) 1 mg chemo tablet anastrozole 1 mg tablet atorvastatin (Lipitor) 80 mg tablet Take 80 mg by mouth 1 (one) time each day. calcitriol (Rocaltrol) 0.25 mcg capsule calcitriol 0.25 mcg capsule TAKE 1 CAPSULE BY MOUTH ON SUNDAY, SUNDAY, AND SUNDAY carvedilol (Coreg) 25 mg tablet Take 25 mg by mouth with breakfast and with evening meal. cholecalciferol, vitamin D3, 50 mcg (2,000 unit) capsule Take by mouth. clopidogrel (Plavix) 75 mg tablet Take by mouth in the morning. docusate sodium (Colace) 100 mg capsule 1 capsule in the morning. famotidine (Pepcid) 20 mg tablet in the morning. FreeStyle Stephy 2 Sensor kit hydrALAZINE (Apresoline) 25 mg tablet Take 25 mg by mouth in the morning and at bedtime. lisinopril 20 mg tablet Take 20 mg by mouth in the morning. MELATONIN ORAL Take by mouth 4 (four) times a week. Sun,,Sun,Sun NIFEdipine CC (Adalat CC) 30 mg 24 hr tablet Take 30 mg by mouth before breakfast. Do not crush, chew, or split. sennosides-docusate sodium (Edna-Colace) 8.6-50 mg tablet Take 1 tablet by mouth in the morning. Sun,,Sun,Sun Review of Systems Review of Systems: All 14 Systems Reviewed and Negative unless otherwise indicated in the above HPI. Physical Exam Constitutional: General: She is not in acute distress. Appearance: Normal appearance. She is normal weight. She is not ill-appearing. HENT: Head: Normocephalic and atraumatic. Nose: Nose normal. Mouth/Throat: Mouth: Mucous membranes are moist. Pharynx: Oropharynx is clear. Eyes: Extraocular Movements: Extraocular movements intact. Conjunctiva/sclera: Conjunctivae normal. Pupils: Pupils are equal, round, and reactive to light. Cardiovascular: Rate and Rhythm: Regular rhythm. Pulses: Normal pulses. Heart sounds: Normal heart sounds. No murmur heard. Comments: Paced Pulmonary: Effort: Pulmonary effort is normal. No respiratory distress. Breath sounds: Normal breath sounds. Abdominal: General: Abdomen is flat. Bowel sounds are normal. There is no distension. Palpations: Abdomen is soft. Musculoskeletal: General: Normal range of motion. Right lower leg: No edema. Left lower leg: No edema. Skin: General: Skin is warm and dry. Capillary Refill: Capillary refill takes less than 2 seconds. Coloration: Skin is not (more content not included)... Normal [facility] MAGNESIUMon 02-06-2023 Magnesium [Mass/Vol] 1.7 mg/dL Low 1.9-2.7 [facility] Comment on above: Performed By: #### L [id number] #### [facility] [address] [place] [address] 30on 02-05-2023 30 The patient is Moder ately Stable - Low risk of patient condition declining or worsening The patient's goals for the shift include comfort, rest The clinical goals for the shift include stable vitals/hemodynamics Over the shift, the patient did not make progress toward the following goals. Barriers to progression include Problem: Pain - Adult Goal: Verbalizes/displays adequate comfort level or baseline comfort level Outcome: Progressing Problem: Safety - Adult Goal: Free from fall injury Outcome: Progressing Problem: Chronic Conditions and Co-morbidities Goal: Patient's chronic conditions and co-morbidity symptoms are monitored and maintained or improved Outcome: Progressing Normal [facility] 30 Daily Case Managemen t Update Multidisciplinary rounds have been completed. Barriers to Discharge: Stress test today. NPO. Cardiac cath ordered. Trend trops (currently 0.25). Diet: Dietary Orders (From admission, onward) Start Ordered 02/05/23344 Diet NPO Diet effective now Comments: Sips with medications Question: Reason for NPO: Answer: elevated trop, may need any repeat testing 02/05/23344 Physician Expected Discharge Date: 02/06/2023 Discharge Delays: PT Six Click Score: OT Six Click Score: PT Recommendations: OT Recommendations: New Consults: Normal [facility] 30 Problem: Pain - Adul t Goal: Verbalizes/displays adequate comfort level or baseline comfort level Outcome: Progressing Flowsheets (Taken 02/05/2023745) Verbalizes/displays adequate comfort level or baseline comfort level: Administer analgesics based on type and severity of pain and evaluate response Implement non-pharmacological measures as appropriate and evaluate response Problem: Safety - Adult Goal: Free from fall injury Outcome: Progressing Flowsheets (Taken 02/05/2023745) Free from fall injury: Morrow fall precautions as indicated by assessment Educate patient/family on patient safety, including physical limitations Problem: Discharge Planning Goal: Discharge to home or other facility with appropriate resources Outcome: Progressing Flowsheets (Taken 02/05/2023745) Discharge to home or other facility with appropriate resources: Identify discharge learning needs (meds, wound care, etc) Arrange for interpreters to assist at discharge as needed Problem: Chronic Conditions and Co-morbidities Goal: Patient's chronic conditions and co-morbidity symptoms are monitored and maintained or improved Outcome: Progressing Flowsheets (Taken 02/05/2023745) Care Plan - Patient's Chronic Conditions and Co-Morbidity Symptoms are Monitored and Maintained or Improved: Update acute care plan with appropriate goals if chronic or comorbid symptoms are exacerbated and prevent overall improvement and discharge Collaborate with multidisciplinary team to address chronic and comorbid conditions and prevent exacerbation or deterioration The patient is Moderately Unstable - Medium risk of patient condition declining or worsening The patient's goals for the shift include comfort The clinical goals for the shift include vss Normal [facility] 30 The patient is Moder ately Stable - Low risk of patient condition declining or worsening The patient's goals for the shift include comfort The clinical goals for the shift include vss Normal [facility] BASIC METABOLIC PANELon 07-0 Anion gap [Moles/Vol] 12 mmol/L Normal 7-20 [facility] Comment on above: Performed By: #### L [id number] #### [facility] ([facility]) [address] [place] [address] Calcium [Mass/Vol] 8.8 mg/dL Normal 8.6-10.3 [facility] Comment on above: Performed By: #### L [id number] #### [facility] ([facility]) [address] [place] [address] Chloride [Moles/Vol] 107 mmol/L Normal 98-107 [facility] Comment on above: Performed By: #### L [id number] #### [facility] ([facility]ER) [address] [place] [address] CO2 [Moles/Vol] 25 mmol/L Normal 21-31 [facility] Comment on above: Performed By: #### L [id number] #### [facility] ([facility]) [address] [place] [address] Creatinine [Mass/Vol] 1.18 mg/dL Normal 0.60-1.20 [facility] Comment on above: Performed By: #### L [id number] #### [facility] ([facility]) [address] [place] [address] GLOMERULAR FILTRATION RATE ML/MIN/1.73 SQ M.PREDICTED 47.6 mL/min/1.73m*2 Low >60.[address] [facility] Comment on above: Result Comment: [facility]???s estimated glomerular filtration rate (eGFR) will no longer include consideration of race in its calculation. The National Kidney Foundation???s eGFR Task Force developed new recommendations for the estimation of the glomerular filtration rate in the [place] They recommend immediate implementation of the new equation refit without the race variable in all laboratories because the calculation does not include race. In addition to not including race in the calculation and reporting, it included diversity in its development, and has acceptable performance characteristics and potential consequences that do not disproportionately affect any one group of individuals. Performed By: #### L [id number] #### [facility] ([facility]) [address] [place] [address] Glucose [Mass/Vol] 99 mg/dL Normal 70-100 [facility] Comment on above: Performed By: #### L [id number] #### [facility] ([facility]) [address] [place] [address] Potassium [Moles/Vol] 3.8 mmol/L Normal 3.5-5.1 [facility] Comment on above: Performed By: #### L [id number] #### [facility] ([facility]) [address] [place] [address] Sodium [Moles/Vol] 140 mmol/L Normal 136-145 [facility] Comment on above: Performed By: #### L [id number] #### [facility] ([facility]) [address] [facility] [place] [address] Urea nitrogen [Mass/Vol] 28 mg/dL High 7-25 [facility] Comment on above: Performed By: #### L [id number] #### [facility] [address] [place] [address] UREA NITROGEN/CREATININE (MASS RATIO) IN SER/PLAS 23.7 Normal [facility] Comment on above: Performed By: #### L [id number] #### [facility] [address] [place] [address] Anion gap [Moles/Vol] 12 mmol/L Normal 7-20 [facility] Comment on above: Performed By: #### L [id number] #### [facility] ([facility] [address] [place] [address] Calcium [Mass/Vol] 9.0 mg/dL Normal 8.6-10.3 [facility] Comment on above: Performed By: #### L [id number] #### [facility] [address] [place] [address] Chloride [Moles/Vol] 107 mmol/L Normal 98-107 [facility] Comment on above: Performed By: #### L [id number] #### [facility] ([facility] [address] [place] [address] CO2 [Moles/Vol] 23 mmol/L Normal 21-31 [facility] Comment on above: Performed By: #### L [id number] #### [facility] ([facility] [address] [place] [address] Creatinine [Mass/Vol] 1.12 mg/dL Normal 0.60-1.20 [facility] Comment on above: Performed By: #### L [id number] #### [facility] ([facility] [address] [place] [address] GLOMERULAR FILTRATION RATE ML/MIN/1.73 SQ M.PREDICTED 50.6 mL/min/1.73m*2 Low >60.[address] [facility] Comment on above: Result Comment: [facility]???s estimated glomerular filtration rate (eGFR) will no longer include consideration of race in its calculation. The National Kidney Foundation???s eGFR Task Force developed new recommendations for the estimation of the glomerular filtration rate in the [place] They recommend immediate implementation of the new equation refit without the race variable in all laboratories because the calculation does not include race. In addition to not including race in the calculation and reporting, it included diversity in its development, and has acceptable performance characteristics and potential consequences that do not disproportionately affect any one group of individuals. Performed By: #### L [id number] #### [facility] ([facility]) [address] [place] [address] Glucose [Mass/Vol] 121 mg/dL High 70-100 [facility] Comment on above: Performed By: #### L [id number] #### [facility] ([facility]) [address] [place] [address] Potassium [Moles/Vol] 3.8 mmol/L Normal 3.5-5.1 [facility] Comment on above: Performed By: #### L [id number] #### [facility] ([facility]) [address] [place] [address] Sodium [Moles/Vol] 138 mmol/L Normal 136-145 [facility] Comment on above: Performed By: #### L [id number] #### [facility] ([facility]) [address] [place] [address] Urea nitrogen [Mass/Vol] 28 mg/dL High 7-25 [facility] Comment on above: Performed By: #### L [id number] #### [facility] ([facility]) [address] [place] [address] UREA NITROGEN/CREATININE (MASS RATIO) IN SER/PLAS 25.0 Normal [facility] Comment on above: Performed By: #### L [id number] #### [facility] ([facility]) [address] [place] [address] CBC WITH AUTO DIFFERENTIALon 02-05-2023 Basophils (Bld) [#/Vol] 0.03 10*3/uL Normal 0.00-0.20 [facility] Comment on above: Performed By: #### L [id number] #### [facility] ([facility]) [address] [place] [address] Basophils/100 WBC (Bld) 0.4 % Normal 0.0-1.0 [facility] Comment on above: Performed By: #### L [id number] #### [facility] [address] [place] [address] Eosinophils (Bld) [#/Vol] 0.65 10*3/uL High 0.00-0.50 [facility] Comment on above: Performed By: #### L [id number] #### [facility] ([facility]) [address] [place] [address] Eosinophils/100 WBC (Bld) 8.6 % High 0.0-6.0 [facility] Comment on above: Performed By: #### L [id number] #### [facility] ([facility] [address] [place] [address] Erythrocyte distribution width (RBC) [Ratio] 14.1 % Normal 11.5-15.0 [facility] Comment on above: Performed By: #### L [id number] #### [facility] ([facility] [address] [place] [address] ERYTHROCYTE MEAN CORPUSCULAR HEMOGLOBIN CONCENTRATION (G/DL) BY AUTOMATED 33.1 g/dL Normal 32.0-35.[address] [facility] Comment on above: Performed By: #### L [id number] #### [facility] ([facility]) [address] [place] [address] Hematocrit (Bld) [Volume fraction] 37.5 % Normal 36.0-48.0 [facility] Comment on above: Performed By: #### L [id number] #### [facility] ([facility]) [address] [place] [address] Hemoglobin (Bld) [Mass/Vol] 12.4 g/dL Normal 12.0-15.0 [facility] Comment on above: Performed By: #### L [id number] #### [facility] ([facility]) [address] [place] [address] Immature granulocytes (Bld) [#/Vol] 0.02 10*3/uL Normal 0.00-0.20 [facility] Comment on above: Performed By: #### L [id number] #### [facility] ([facility]) [address] [place] [address] Immature granulocytes/100 WBC (Bld) 0.3 % Normal 0.0-1.0 [facility] Comment on above: Performed By: #### L [id number] #### [facility] ([facility]) [address] [place] [address] Lymphocytes (Bld) [#/Vol] 1.46 10*3/uL Normal 1.20-4.00 [facility] Comment on above: Performed By: #### L [id number] #### [facility] ([facility]) [address] [place] [address] Lymphocytes/100 WBC (Bld) 19.3 % Low 20.0-45.0 [facility] Comment on above: Performed By: #### L [id number] #### [facility] ([facility]) [address] [place] [address] MCH (RBC) [Entitic mass] 28.8 pg Normal 27.0-33.0 [facility] Comment on above: Performed By: #### L [id number] #### [facility] ([facility]) [address] [place] [address] MCV (RBC) [Entitic vol] 87.0 fL Normal 82.0-98.0 [facility] Comment on above: Performed By: #### L [id number] #### [facility] ([facility]) [address] [place] [address] Monocytes (Bld) [#/Vol] 0.69 10*3/uL Normal 0.10-1.00 [facility] Comment on above: Performed By: #### L [id number] #### [facility] ([facility]) [address] [place] [address] Monocytes/100 WBC (Bld) 9.1 % Normal 5.0-12.0 [facility] Comment on above: Performed By: #### L [id number] #### [facility] ([facility]) [address] [address] Neutrophils (Bld) [#/Vol] 4.73 10*3/uL Normal 1.60-7.60 [facility] Comment on above: Performed By: #### L [id number] #### [facility] ([facility]) [address] [address] Neutrophils/100 WBC (Bld) 62.3 % Normal 40.0-72.0 [facility] Comment on above: Performed By: #### L [id number] #### [facility] ([facility]) [address] [address] NRBC (PER 100 WBCS) BY AUTOMATED COUNT 0.0 % Normal 0 [facility] Comment on above: Performed By: #### L [id number] #### [facility] ([facility]) [address] [address] PLATELETS (10*3/UL) IN BLOOD AUTOMATED COUNT 175 10*3/uL Normal 150-400 [facility] Comment on above: Performed By: #### L [id number] #### [facility] ([facility]) [address] [address] RBC (Bld) [#/Vol] 4.31 10*6/uL Normal 3.80-5.00 [facility] Comment on above: Performed By: #### L [id number] #### [facility] ([facility]) [address] [address] WBC (Bld) [#/Vol] 7.58 10*3/uL Normal 4.00-10.60 [facility] Comment on above: Performed By: #### L [id number] #### [facility] [place]) [address] [address] CONSULTon 02-05-2023 CONSULT ----- ----- Attestation signed by Matilda Valentin MD at 02/05/2023 4:03 PM I personally saw and examined the patient on the same date of service as resident/fellow Dr. Galdamez. I discussed the findings and therapeutic plan with the resident/fellow Dr. Arriola. I agree with the documentation, except for any edits/updates below. Teaching Physician's Revisions: Patient had presyncope and chest pain. Her exam with borderline so we elected to proceed with stress test. The patient had significant history of syncope with exertion. She had also history moderate to severe stenosis. Patient had significant chest pain during the stress test, discussed the case with interventionalist and we are going to proceed with right, left cath and valvular study. Patient is very unstable and her syncope and chest pain might be due to her aortic stenosis. This stenosis is most likely due to low-flow low gradient severe aortic stenosis. The patient is very high risk. ----- CT Cardiology Consult Note Reason for visit: near-syncope HPI: Trisha Parish is a 77 y.o. 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 Presented with near syncope. Noted to have elevated troponin at OSH. Cardiology consulted, patient had an echo on 02/05 that showed EF 55%. Planned for stress testing on 02/05. Troponin 0.27. PMH: Past Medical History: Diagnosis Date A-fib (CMS/HCC) Cancer (CMS/HCC) Coronary artery disease Hypertension Myocardial infarct (CMS/HCC) Stroke (CMS/HCC) PSH: Past Surgical History: Procedure Laterality Date BREAST SURGERY CHOLECYSTECTOMY CORONARY ARTERY BYPASS GRAFT HYSTERECTOMY SH: Social Determinants of Health Tobacco Use: Low Risk (01/23/2023) Patient History Smoking Tobacco Use: Never Smokeless Tobacco Use: Never Passive Exposure: Not on file Alcohol Use: Not on file Financial Resource Strain: Low Risk (02/04/2023) Overall Financial Resource Strain (CARDIA) Difficulty of Paying Living Expenses: Not hard at all Food Insecurity: Unknown (02/04/2023) Hunger Vital Sign Worried About Running Out of Food in the Last Year: Never true Ran Out of Food in the Last Year: Not on file Transportation Needs: Unknown (02/04/2023) PRAPARE - Transportation Lack of Transportation (Medical): No Lack of Transportation (Non-Medical): Not on file Physical Activity: Not on file Stress: Not on file Social Connections: Not on file Intimate Partner Violence: Unknown (02/04/2023) Humiliation, Afraid, Rape, and Kick questionnaire Fear of Current or Ex-Partner: No Emotionally Abused: Not on file Physically Abused: Not on file Sexually Abused: Not on file Depression: Not on file Housing Stability: Unknown (02/04/2023) Housing Stability Vital Sign Unable to Pay for Housing in the Last Year: Not on file Number of Places Lived in the Last Year: Not on file Unstable Housing in the Last Year: No Allergies: Allergies Allergen Reactions Demerol [Meperidine] Weight: @WEIGHT@ Visit Vitals BP 136/65 Pulse 62 Temp 36.3 ???C (97.4 ???F) (Temporal) Resp 12 Ht 1.6 m (5' 2.99 ) Wt 67.1 kg (147 lb 14.9 oz) SpO2 97% BMI 26.21 kg/m??? Smoking Status Never BSA 1.73 m??? Meds: No current facility-administered medications on file prior to encounter. Current Outpatient Medications on File Prior to Encounter Medication Sig Dispense Refill ALPRAZolam (Xanax) 0.25 mg tablet Take 0.25 mg by mouth if needed at bedtime for anxiety. anastrozole (Arimidex) 1 mg chemo tablet anastrozole 1 mg tablet atorvastatin (Lipitor) 80 mg tablet Take 80 mg by mouth 1 (one) time each day. calcitriol (Rocaltrol) 0.25 mcg capsule calcitriol 0.25 mcg capsule TAKE 1 CAPSULE BY MOUTH ON SUNDAY, SUNDAY, AND SUNDAY carvedilol (Coreg) 25 mg tablet Take 25 mg by mouth with breakfast and with evening meal. cholecalciferol, vitamin D3, 50 mcg (2,000 unit) capsule Take by mouth. clopidogrel (Plavix) 75 mg tablet Take by mouth in the morning. docusate sodium (Colace) 100 mg capsule 1 capsule in the morning. famotidine (Pepcid) 20 mg tablet in the morning. FreeStyle Stephy 2 Sensor kit hydrALAZINE (Apresoline) 25 mg tablet Take 25 mg by mouth in the morning and at bedtime. lisinopril 20 mg tablet Take 20 mg by mouth in the morning. MELATONIN ORAL Take by mouth 4 (four) times a week. Sun,,Sun,Sun NIFEdipine CC (Adalat CC) 30 mg 24 hr tablet Take 30 mg by mouth before breakfast. Do not crush, chew, or split. sennosides-docusate sodium (Edna-Colace) 8.6-50 mg tablet Take 1 tablet by mouth in the morning. Sun,,Sun,Sun ROS: Cardio Basic Cardiovascular Symptoms: no lightheadedness, (more content not included)... Normal [facility] HEPATIC FUNCTION PANELon Albumin [Mass/Vol] 3.8 g/dL Normal 3.5-5.7 [facility] Comment on above: Performed By: #### L [id number] #### [facility] ([facility]) [address] [place] [address] ALP [Catalytic activity/Vol] 92 U/L Normal 34-104 [facility] Comment on above: Performed By: #### L [id number] #### [facility] ([facility]) [address] [place] [address] ALT [Catalytic activity/Vol] 11 U/L Normal 7-52 [facility] Comment on above: Performed By: #### L [id number] #### [facility] [address] [place] [address] AST [Catalytic activity/Vol] 23 U/L Normal 13-39 [facility] Comment on above: Performed By: #### L [id number] #### [facility] ([facility] [address] [place] [address] Bilirubin [Mass/Vol] 0.8 mg/dL Normal 0.3-1.0 [facility] Comment on above: Performed By: #### L [id number] #### [facility] ([facility]) [address] [place] [address] Magnesium [Mass/Vol] 0.1 mg/dL Normal 0-0.2 [facility] Comment on above: Performed By: #### L [id number] #### [facility] ([facility]) [address] [place] [address] Protein [Mass/Vol] 6.5 g/dL Normal 6.0-8.3 [facility] Comment on above: Performed By: #### L [id number] #### [facility] ([facility]) [address] [place] [address] HPon 02-05-2023 H&P reviewed. The pa tient was examined and there are no changes to the H&P. [facility] H&P reviewed. The pa tient was examined and there are no changes to the H&P. [facility] HP ----- ----- Attestation signed by Matilda Valentin MD at 02/05/2023 4:03 PM I personally saw and examined the patient on the same date of service as resident/fellow Dr. Galdamez. I discussed the findings and therapeutic plan with the resident/fellow Dr. Arriola. I agree with the documentation, except for any edits/updates below. Teaching Physician's Revisions: Patient had presyncope and chest pain. Her exam with borderline so we elected to proceed with stress test. The patient had significant history of syncope with exertion. She had also history moderate to severe stenosis. Patient had significant chest pain during the stress test, discussed the case with interventionalist and we are going to proceed with right, left cath and valvular study. Patient is very unstable and her syncope and chest pain might be due to her aortic stenosis. This stenosis is most likely due to low-flow low gradient severe aortic stenosis. The patient is very high risk. ----- CT Cardiology Consult Note Reason for visit: near-syncope HPI: Trisha Parish is a 77 y.o. 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 Presented with near syncope. Noted to have elevated troponin at OSH. Cardiology consulted, patient had an echo on 02/05 that showed EF 55%. Planned for stress testing on 02/05. Troponin 0.27. PMH: Past Medical History: Diagnosis Date A-fib (CMS/[facility]) Cancer ([facility]/HCC) Coronary artery disease Hypertension Myocardial infarct ([facility]/HCC) Stroke ([facility]) PSH: Past Surgical History: Procedure Laterality Date BREAST SURGERY CHOLECYSTECTOMY CORONARY ARTERY BYPASS GRAFT HYSTERECTOMY SH: Social Determinants of Health Tobacco Use: Low Risk (01/23/2023) Patient History Smoking Tobacco Use: Never Smokeless Tobacco Use: Never Passive Exposure: Not on file Alcohol Use: Not on file Financial Resource Strain: Low Risk (02/04/2023) Overall Financial Resource Strain (CARDIA) Difficulty of Paying Living Expenses: Not hard at all Food Insecurity: Unknown (02/04/2023) Hunger Vital Sign Worried About Running Out of Food in the Last Year: Never true Ran Out of Food in the Last Year: Not on file Transportation Needs: Unknown (02/04/2023) PRAPARE - Transportation Lack of Transportation (Medical): No Lack of Transportation (Non-Medical): Not on file Physical Activity: Not on file Stress: Not on file Social Connections: Not on file Intimate Partner Violence: Unknown (02/04/2023) Humiliation, Afraid, Rape, and Kick questionnaire Fear of Current or Ex-Partner: No Emotionally Abused: Not on file Physically Abused: Not on file Sexually Abused: Not on file Depression: Not on file Housing Stability: Unknown (02/04/2023) Housing Stability Vital Sign Unable to Pay for Housing in the Last Year: Not on file Number of Places Lived in the Last Year: Not on file Unstable Housing in the Last Year: No Allergies: Allergies Allergen Reactions Demerol [Meperidine] Weight: @WEIGHT@ Visit Vitals BP 136/65 Pulse 62 Temp 36.3 ???C (97.4 ???F) (Temporal) Resp 12 Ht 1.6 m (5' 2.99 ) Wt 67.1 kg (147 lb 14.9 oz) SpO2 97% BMI 26.21 kg/m??? Smoking Status Never BSA 1.73 m??? Meds: No current facility-administered medications on file prior to encounter. Current Outpatient Medications on File Prior to Encounter Medication Sig Dispense Refill ALPRAZolam (Xanax) 0.25 mg tablet Take 0.25 mg by mouth if needed at bedtime for anxiety. anastrozole (Arimidex) 1 mg chemo tablet anastrozole 1 mg tablet atorvastatin (Lipitor) 80 mg tablet Take 80 mg by mouth 1 (one) time each day. calcitriol (Rocaltrol) 0.25 mcg capsule calcitriol 0.25 mcg capsule TAKE 1 CAPSULE BY MOUTH ON SUNDAY, SUNDAY, AND SUNDAY carvedilol (Coreg) 25 mg tablet Take 25 mg by mouth with breakfast and with evening meal. cholecalciferol, vitamin D3, 50 mcg (2,000 unit) capsule Take by mouth. clopidogrel (Plavix) 75 mg tablet Take by mouth in the morning. docusate sodium (Colace) 100 mg capsule 1 capsule in the morning. famotidine (Pepcid) 20 mg tablet in the morning. FreeStyle Stephy 2 Sensor kit hydrALAZINE (Apresoline) 25 mg tablet Take 25 mg by mouth in the morning and at bedtime. lisinopril 20 mg tablet Take 20 mg by mouth in the morning. MELATONIN ORAL Take by mouth 4 (four) times a week. Sun,,Sun,Sun NIFEdipine CC (Adalat CC) 30 mg 24 hr tablet Take 30 mg by mouth before breakfast. Do not crush, chew, or split. sennosides-docusate sodium (Edna-Colace) 8.6-50 mg tablet Take 1 tablet by mouth in the morning. Sun,,Sun,Sun ROS: Cardio Basic Cardiovascular Symptoms: no lightheadedness, (more content not included)... Normal [facility] MAGNESIUMon 02-05-2023 Magnesium [Mass/Vol] 1.4 mg/dL Low 1.9-2.7 [facility] Comment on above: Performed By: #### L [id number] #### [facility] ([facility]) [address] [place] [address] TROPONIN Ion 02-05-2023 Troponin I.cardiac [Mass/Vol] 0.25 ng/mL Critically high 0.00-0.04 [facility] Comment on above: Result Comment: M-TN EVIOUS CRITICAL RESULT Previous result verified on 02/05/2023 0550 on specimen/case [id number] called with component Troponin I for procedure Troponin I with value 0.21 ng/mL. Performed By: #### L [id number] ####[facility] ([facility])[address] [place] [address] Troponin I.cardiac [Mass/Vol] 0.21 ng/mL Critically high 0.00-0.04 [facility] Comment on above: Result Comment: M-TN EVIOUS CRITICAL RESULT Previous result verified on 02/05/2023 0053 on specimen/case [id number] called with component Troponin I for procedure Troponin I with value 0.27 ng/mL. Performed By: #### L [id number] #### [facility] ([facility]) [address] [place] [address] Troponin I.cardiac [Mass/Vol] 0.27 ng/mL Critically high 0.00-0.04 [facility] Comment on above: Result Comment: ShreeRYDER ROSENTHAL INITIAL CRITICAL HIGH; RESPUN AND RETESTED Performed By: #### L [id number] #### [facility] ([facility]) [address] [place] [address] HPon 01-23-2023 [facility] Electrophysiology Consult Note Reason for visit: s/p PPM for AV block, AF s/p cryomaze HPI: Trisha Parish is a 77 y.o. 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 She was [facility] for [facility], suspected to have a stroke but was found to have second-degree AV block and underwent PPM implant. She had an echo done which was shown to have moderate to severe aortic stenosis, LV function grade 2 moderate diastolic dysfunction and moderately enlarged left atrium. Hospital Course 77 y.o. female with a past medical history significant for atrial fibrillation status post maze and left atrial appendage clip, coronary artery disease status post CABG, hypertension, stroke who presented with generalized weakness to [facility]. At [facility], EKG demonstarted a 2:1 AV block with prolonged TN interval 266. Chest x-ray demonstrated possible trace bilateral pleural effusions with interstitial prominence suggestive of edema. Labs were significant for creatinine 1.95, BUN 51, albumin 3.0, hemoglobin 11.2, MCV 92.8, proBNP 10,982, troponin 79.4, PT 12.6, INR 1.2. Patient was started on dopamine infusion. EKG after being started on dopamine infusion was significant for sthird-degree heart block with T wave inversions in lead III, aVR with heart rate 59. Patient was transferred [facility] for further evaluation by cardiology. She was started on dopamin gtt, she underwent Pacemaker placement by EP on 09/11, she tolerated the procedure very well. She was resumed on her home BP meds except nifedipine. Patient remained HD , afebrile. AICD was interrogated. Repeat CXR with no pneumothorax Carotid ultrasound 03/25/2021: 1. 0-49% flow stenosis within the right left carotid arteries. 2. Mild atherosclerotic disease. 3. Several nodules noted within the right thyroid lobe, largest is 2.3 cm. Ultrasound evaluation of the thyroid gland should be considered. Echocardiogram 03/25/2021: LV systolic function is hyperdynamic, EF 65 to 70%, no wall motion abnormalities, mild LVH, grade 2 diastolic dysfunction, biatrial enlargement, RV is normal in size and systolic function. Mild mitral regurgitation, mild to moderate aortic stenosis, mild to moderate aortic regurgitation. Prior testing: Blood testing 01/19/2021: Hemoglobin 12.7, hematocrit 39, platelets 173, potassium 4.2, BUN 30, creatinine 1.73, GFR 29, HDL 34, cholesterol 123, triglycerides 166, LDL 56, hemoglobin A1c 6%. Carotid u/s 07/2018: right 50-69%. left <50%. Her Echocardiogram on 12/31/2014: Left ventricular wall thickness is mildly increased. Concentric remodeling. There is nonspecific thickening of the mitral valve leaflet. Moderate mitral annular calcification. Moderate mitral regurgitation. Normal biventricular systolic function. ----- PMH: Past Medical History: Diagnosis Date A-fib (CMS/HCC) Cancer (CMS/HCC) Coronary artery disease Hypertension Myocardial infarct (CMS/HCC) Stroke (CMS/HCC) PSH: Past Surgical History: Procedure Laterality Date BREAST SURGERY CHOLECYSTECTOMY CORONARY ARTERY BYPASS GRAFT HYSTERECTOMY SH: Social Determinants of Health Tobacco Use: Low Risk Smoking Tobacco Use: Never Smokeless Tobacco Use: Never Passive Exposure: Not on file Alcohol Use: Not on file Financial Resource Strain: Low Risk Difficulty of Paying Living Expenses: Not hard at all Food Insecurity: Unknown Worried About Running Out of Food in the Last Year: Never true Ran Out of Food in the Last Year: Not on file Transportation Needs: Unknown Lack of Transportation (Medical): No Lack of Transportation (Non-Medical): Not on file Physical Activity: Not on file Stress: Not on file Social Connections: Not on file Intimate Partner Violence: Unknown Fear of Current or Ex-Partner: No Emotionally Abused: Not on file Physically Abused: Not on file Sexually Abused: Not on file Depression: Not on file Housing Stability: Unknown Unable to Pay for Housing in the Last Year: Not on file Number of Places Lived in the Last Year: Not on file Unstable Housing in the Last Year: No Allergies: Allergies Allergen Reactions Demerol [Meperidine] Weight: 66.7kg Visit Vitals BP 140/70 (BP Location: Right arm, Patient Position: Sitting, BP Cuff Size: Adult) Pulse 72 Ht 1.6 m (5' 3 ) Wt 66.7 kg (147 lb) SpO2 97% BMI 26.04 kg/m??? Smoking Status Never BSA 1.72 m??? Meds: Current Outpatient Medications on File Prior to Visit Medication Sig Dispense Refill ALPRAZolam (Xanax) 0.25 mg tablet Take 0.25 mg by mouth if needed at bedtime for anxiety. anastrozole (Arimidex) 1 mg chemo tablet anastrozole (more content not included)... [facility] Office Visiton 01-23-2023 Follow-up visit [id number] Trisha Parish E 1945 F Date Provider Department Center 01/23/2023 DOE FUENTES [facility] No family history on file Level of Service:94585 [place] OFFICE/OUTPATIENT NEW MODERATE MDM 45-59 MINUTES Reason for Visit and Comments: Follow-up [015128] - 3 month follow up [facility] Office Visiton 01-17-2023 Follow-up visit [id number] JemTrisha gary E 1945 F Date Provider Department Center 01/17/2023 TOÑO SIMPSON [facility] No family history on file Level of Service:10950 [place] OFFICE/OUTPATIENT ESTABLISHED MOD MDM 30-39 MIN Reason for Visit and Comments: Valve Disorder [3372] Atrial Fibrillation [80] Coronary Artery Disease [187] [facility] PTH INTACTon 10-07-2022 PTH, Intact 45 pg/mL Normal 15-65 [facility] Comment on above: Performed By: #### P T, PTT #### [facility] [address] [address] [address] Madisyn Bentley Office Visiton 10-06-2022 Follow-up visit [id number] Trisha Parish 1945 F Date Provider Department Center 10/06/2022 120-CORAL, MIKAYLA BH CARD [facility] No family history on file Level of Service:20722 [place] OFFICE/OUTPATIENT ESTABLISHED LOW MDM 20-29 MIN Reason for Visit and Comments: Hypertension [312221] [facility] RENAL FUNCTION PANELon 10-06 Albumin [Mass/Vol] 3.3 g/dL Critically low 3.4-5.0 [facility] Comment on above: Performed By: #### R ENAL #### [facility] [address] [place] [address] Dr. Madisyn Bentley Calcium [Mass/Vol] 8.2 mg/dL Critically low 8.5-10.1 [facility] Comment on above: Performed By: #### R ENAL #### [facility] [address] [address] [address] Madisyn Bentley Chloride [Moles/Vol] 110 mmol/L Critically high 98-107 [facility] Comment on above: Performed By: #### R ENAL #### [facility] [address] [address] [address] Madisyn Bentley CO2 [Moles/Vol] 22.2 mmol/L Normal 21.0-32.0 [facility] Comment on above: Performed By: #### R ENAL #### [facility] [address] [address] [address] Madisyn Bentley Creatinine [Mass/Vol] 1.36 mg/dL Critically high 0.55-1.02 [facility] Comment on above: Performed By: #### R ENAL #### [facility] [address] [address] [address] Madisyn Bentley EGFR-AF SWISS 46 mL/min/1.73m2 Critically low >=60 [facility] Comment on above: Performed By: #### R ENAL #### [facility] [address] [address] [address] Madisyn Bentley EGFR-NON AF SWISS 38 mL/min/1.73m2 Critically low >=60 [facility] Comment on above: Performed By: #### R ENAL #### [facility] [address] [address] [address] Madisyn Bentley Glucose [Mass/Vol] 145 mg/dL Critically high 74-106 [facility] Comment on above: Performed By: #### R ENAL #### [facility] [address] [address] [address] Madisyn Bentley Phosphate [Mass/Vol] 2.7 mg/dL Normal 2.6-4.7 [facility] Comment on above: Performed By: #### R ENAL #### [facility] [address] [address] [address] Madisyn Bentley Potassium [Moles/Vol] 3.9 mmol/L Normal 3.5-5.1 [facility] Comment on above: Performed By: #### R ENAL #### [facility] [address] [address] [address] Madisyn Bentley Sodium [Moles/Vol] 143 mmol/L Normal 136-145 [facility] Comment on above: Performed By: #### R ENAL #### [facility] [address] [address] [address] Madisyn Bentley Urea nitrogen [Mass/Vol] 24.0 mg/dL Critically high 7.0-18.0 [facility] Comment on above: Performed By: #### R ENAL #### [facility] [address] [address] [address] Madisyn Bentley UA RANDOMon 10-06-2022 Bilirubin Ql (U) Negative Normal NEGATIVE [facility] Comment on above: Performed By: #### R ENAL #### [facility] [address] [address] [address] Madisyn Bentley Clarity (U) CLEAR Normal CLEAR [facility] Comment on above: Performed By: #### R ENAL #### [facility] [address] [place] [address] Dr. Madisyn Bentley Color (U) LT. YELLOW Normal YELLOW [facility] Comment on above: Performed By: #### R ENAL #### [facility] [address] [place] [address] Dr. Madisyn Bentley Glucose Ql (U) Negative Normal NEGATIVE [facility] Comment on above: Performed By: #### R ENAL #### [facility] [address] [place] [address] Dr. Madisyn Bentley Hemoglobin Ql (U) Negative Normal NEGATIVE [facility] Comment on above: Performed By: #### R ENAL #### [facility] [address] [place] [address] Dr. Madisyn Bentley Ketones Ql (U) Negative Normal NEGATIVE [facility] Comment on above: Performed By: #### R ENAL #### [facility] [address] [place] [address] Dr. Madisyn Bentley LEUKOCYTES SMALL Abnormal NEGATIVE [facility] Comment on above: Performed By: #### R ENAL #### [facility] [address] [place] [address] Dr. Madisyn Bentley Nitrite Ql (U) Negative Normal NEGATIVE [facility] Comment on above: Performed By: #### R ENAL #### [facility] [address] [place] [address] Dr. Madisyn Bentley pH (U) 5.5 [pH] Normal 5-9 [facility] Comment on above: Performed By: #### R ENAL #### [facility] [address] [place] [address] Dr. Madisyn Bentley SPEC GRAVITY 1.020 Normal 1.005-<=1.02 5 [facility] Comment on above: Performed By: #### R ENAL #### [facility] [address] [place] [address] Dr. Madisyn Bentley UA PROTEIN TRACE Normal NEGATIVE/ TRACE [facility] Comment on above: Performed By: #### R ENAL #### [facility] [address] [place] [address] Dr. Madisyn Bentley Urobilinogen Qn (U) 0.2 {Luis Eduardo'U}/dL Normal 0.2 - 1. 0 [facility] Comment on above: Performed By: #### R ENAL #### [facility] [address] [address] [address] Madisyn Bentley URINE T PROTEIN CREAT RATIOo n 10-06-2022 Protein (U) [Mass/Vol] 47.8 mg/dL Critically high <=12.0 [facility] Comment on above: Performed By: #### U RTPCR #### [facility] [address] [address] [address] Madisyn Bentley UR PROT CREAT RAT 0.26 Normal [facility] Comment on above: Performed By: #### U RTPCR #### [facility] [address] [place] [address] Dr. Madisyn Bentley URINE CREAT 186.22 mg/dL Normal 20.00-300.00 [facility] Comment on above: Performed By: #### U RTPCR #### [facility] [address] [place] [address] Dr. Madisyn Bentley Office Visiton 09-20-2022 Follow-up visit [id number] Trisha Parish 1945 F Date Provider Department Center 09/20/2022 Khoi-PRECIOUS MONREAL [facility] No family history on file Level of Service:77935 [place] OFFICE/OUTPATIENT ESTABLISHED LOW MDM 20-29 MIN Normal [facility] CBC WITH AUTO DIFFERENTIALon 09-12-2022 Basophils (Bld) [#/Vol] 0.03 10*3/uL Normal 0.00-0.20 [facility] Comment on above: Performed By: #### L [id number] #### [facility] ([facility]) [address] [place] [address] Basophils/100 WBC (Bld) 0.3 % Normal 0.0-1.0 [facility] Comment on above: Performed By: #### L [id number] #### [facility] ([facility]) [address] [place] [address] Eosinophils (Bld) [#/Vol] 0.21 10*3/uL Normal 0.00-0.50 [facility] Comment on above: Performed By: #### L [id number] #### [facility] ([facility]AKER) [address] [place] [address] Eosinophils/100 WBC (Bld) 2.3 % Normal 0.0-6.0 [facility] Comment on above: Performed By: #### L [id number] #### [facility] [address] [place] [address] Erythrocyte distribution width (RBC) [Ratio] 13.3 % Normal 11.5-15.0 [facility] Comment on above: Performed By: #### L [id number] #### [facility] ([facility]) [address] [place] [address] ERYTHROCYTE MEAN CORPUSCULAR HEMOGLOBIN CONCENTRATION (G/DL) BY AUTOMATED 33.4 g/dL Normal 32.0-35.[address] [facility] Comment on above: Performed By: #### L [id number] #### [facility] ([facility]) [address] [place] [address] Hematocrit (Bld) [Volume fraction] 29.0 % Low 36.0-48.0 [facility] Comment on above: Performed By: #### L [id number] #### [facility] ([facility]) [address] [place] [address] Hemoglobin (Bld) [Mass/Vol] 9.7 g/dL Low 12.0-15.0 [facility] Comment on above: Performed By: #### L [id number] #### [facility] ([facility]) [address] [place] [address] Immature granulocytes (Bld) [#/Vol] 0.02 10*3/uL Normal 0.00-0.20 [facility] Comment on above: Performed By: #### L [id number] #### [facility] ([facility]) [address] [place] [address] Immature granulocytes/100 WBC (Bld) 0.2 % Normal 0.0-1.0 [facility] Comment on above: Performed By: #### L [id number] #### [facility] ([facility]) [address] [place] [address] Lymphocytes (Bld) [#/Vol] 1.24 10*3/uL Normal 1.20-4.00 [facility] Comment on above: Performed By: #### L [id number] #### [facility] ([facility]) [address] [place] [address] Lymphocytes/100 WBC (Bld) 13.6 % Low 20.0-45.0 [facility] Comment on above: Performed By: #### L [id number] #### [facility] ([facility]) [address] [place] [address] MCH (RBC) [Entitic mass] 30.4 pg Normal 27.0-33.0 [facility] Comment on above: Performed By: #### L [id number] #### [facility] ([facility]) [address] [place] [address] MCV (RBC) [Entitic vol] 90.9 fL Normal 82.0-98.0 [facility] Comment on above: Performed By: #### L [id number] #### [facility] ([facility]) [address] [place] [address] Monocytes (Bld) [#/Vol] 0.68 10*3/uL Normal 0.10-1.00 [facility] Comment on above: Performed By: #### L [id number] #### [facility] ([facility]) [address] [place] [address] Monocytes/100 WBC (Bld) 7.5 % Normal 5.0-12.0 [facility] Comment on above: Performed By: #### L [id number] #### [facility] ([facility]) [address] [place] [address] Neutrophils (Bld) [#/Vol] 6.93 10*3/uL Normal 1.60-7.60 [facility] Comment on above: Performed By: #### L [id number] #### [facility] ([facility]) [address] [place] [address] Neutrophils/100 WBC (Bld) 76.1 % High 40.0-72.0 [facility] Comment on above: Performed By: #### L [id number] #### [facility] ([facility]) [address] [place] [address] NRBC (PER 100 WBCS) BY AUTOMATED COUNT 0.0 % Normal 0.0-0.0 [facility] Comment on above: Performed By: #### L [id number] #### [facility] ([facility]) [address] [place] [address] PLATELETS (10*3/UL) IN BLOOD AUTOMATED COUNT 175 10*3/uL Normal 150-400 [facility] Comment on above: Performed By: #### L [id number] #### [facility] ([facility]) [address] [place] [address] RBC (Bld) [#/Vol] 3.19 10*6/uL Low 3.80-5.00 [facility] Comment on above: Performed By: #### L [id number] #### [facility] ([facility]) [address] [place] [address] WBC (Bld) [#/Vol] 9.11 10*3/uL Normal 4.00-10.60 [facility] Comment on above: Performed By: #### L [id number] #### [facility] ([facility]) [address] [place] [address] COMPREHENSIVE METABOLIC PANE Otto 09-12-2022 Albumin [Mass/Vol] 2.9 g/dL Low 3.5-5.7 [facility] Comment on above: Performed By: #### L [id number] ####[facility] [place] [address] ALP [Catalytic activity/Vol] 61 U/L Normal 34-104 [facility] Comment on above: Performed By: #### L [id number] ####[facility] (BEAKER)[address] [place] [address] ALT [Catalytic activity/Vol] 7 U/L Normal 7-52 [facility] Comment on above: Performed By: #### L [id number] ####[facility] ([facility]ER)[address] [place] [address] Anion gap [Moles/Vol] 5 mmol/L Low 7-20 [facility] Comment on above: Performed By: #### L [id number] ####[facility] (BEAKER)[address] [place] [address] AST [Catalytic activity/Vol] 12 U/L Low 13-39 [facility] Comment on above: Performed By: #### L [id number] ####[facility] ([facility]ER)[address] [place] [address] Bilirubin [Mass/Vol] 0.5 mg/dL Normal 0.3-1.0 [facility] Comment on above: Performed By: #### L [id number] ####[facility] ([facility]ER)[address] [place] [address] Calcium [Mass/Vol] 8.2 mg/dL Low 8.6-10.3 [facility] Comment on above: Performed By: #### L [id number] ####[facility] (BEAKER)[address] [place] [address] Chloride [Moles/Vol] 109 mmol/L High 98-107 [facility] Comment on above: Performed By: #### L [id number] ####[facility] ([facility] [place] [address] CO2 [Moles/Vol] 22 mmol/L Normal 21-31 [facility] Comment on above: Performed By: #### L [id number] ####[facility] ([facility])[address] [place] [address] Creatinine [Mass/Vol] 1.59 mg/dL High 0.60-1.20 [facility] Comment on above: Performed By: #### L [id number] ####[facility] ([facility] [place] [address] GLOMERULAR FILTRATION RATE ML/MIN/1.73 SQ M.PREDICTED 31.1 mL/min/1.73m*2 Low >60.[address] [facility] Comment on above: Result Comment: [facility]???s estimated glomerular filtration rate (eGFR) will no longer include consideration of race in its calculation. The National Kidney Foundation???s eGFR Task Force developed new recommendations for the estimation of the glomerular filtration rate in the [place] They recommend immediate implementation of the new equation refit without the race variable in all laboratories because the calculation does not include race. In addition to not including race in the calculation and reporting, it included diversity in its development, and has acceptable performance characteristics and potential consequences that do not disproportionately affect any one group of individuals. Performed By: #### L [id number] ####[facility] ([facility])[address] [place] [address] Glucose [Mass/Vol] 80 mg/dL Normal 70-100 [facility] Comment on above: Performed By: #### L [id number] ####[facility] ([facility])[address] [place] [address] Potassium [Moles/Vol] 3.9 mmol/L Normal 3.5-5.1 [facility] Comment on above: Performed By: #### L [id number] ####[facility] ([facility])[address] [place] [address] Protein [Mass/Vol] 5.3 g/dL Low 6.0-8.3 [facility] Comment on above: Performed By: #### L [id number] ####[facility] [place] [address] Sodium [Moles/Vol] 136 mmol/L Normal 136-145 [facility] Comment on above: Performed By: #### L [id number] ####[facility] ([facility])[address] [place] [address] Urea nitrogen [Mass/Vol] 37 mg/dL High 7-25 [facility] Comment on above: Performed By: #### L [id number] ####[facility] ([facility])[address] [place] [address] UREA NITROGEN/CREATININE (MASS RATIO) IN SER/PLAS 23.27 Normal [facility] Comment on above: Performed By: #### L [id number] ####[facility] ([facility])[address] [place] [address] DSon 09-12-2022 DS ----- ----- Attestation signed by Easton Boone MD at 09/18/2022 12:55 PM Patient was seen and examined with the resident, agree with assesment and plan as above Easton Boone MD Pulmonary and critical care ----- Admission Admitted 09/10/2022 for Bradycardia, SOB, Weakness Discharge Diagnosis Heart block Discharge Disposition Home or Self Care Discharge Medications Your medication list START taking these medications Instructions Last Dose Given Next Dose Due doxycycline 100 mg capsule Commonly known as: Vibramycin Take 1 capsule (100 mg) by mouth in the morning and at bedtime for 14 days. Take with at least 8 ounces (large glass) of water, do not lie down for 30 minutes after CONTINUE taking these medications Instructions Last Dose Given Next Dose Due ALPRAZolam 0.25 mg tablet Commonly known as: Xanax atorvastatin 80 mg tablet Commonly known as: Lipitor carvedilol 25 mg tablet Commonly known as: Coreg clopidogrel 75 mg tablet Commonly known as: Plavix hydrALAZINE 25 mg tablet Commonly known as: Apresoline lisinopril 20 mg tablet MELATONIN ORAL sennosides-docusate sodium 8.6-50 mg tablet Commonly known as: Edna-Colace Vitamin D3 50 mcg (2,000 unit) capsule Generic drug: cholecalciferol (vitamin D3) STOP taking these medications NIFEdipine CC 30 mg 24 hr tablet Commonly known as: Adalat CC NIFEdipine CC 90 mg 24 hr tablet Commonly known as: Adalat CC Where to Get Your Medications These medications were sent to [facility]/pharmacy #[id number] [place] [address] doxycycline 100 mg capsule Activity Patient currently has no discharge activity orders Do not wet the incision for 7 days. No lifting heavy weights using arm on the same side x 3weeks Do not lift elbow above the shoulder on the same side for 4-6 weeks. No driving for 1 month. Diet Patient currently has no discharge diet orders Allergies Demerol [meperidine] Hospital Course 77 y.o. female with a past medical history significant for atrial fibrillation status post maze and left atrial appendage clip, coronary artery disease status post CABG, hypertension, stroke who presented with generalized weakness to [facility]. She presented with 2-day history of exertional shortness of breath and weakness with intermittent palpitations. She stated that her legs felt heavy. She denied any recent changes of medication and illness. Patient states that she does take Plavix daily. She denies any use of anticoagulation. At [facility], EKG demonstarted a 2:1 AV block with prolonged TN interval 266. Chest x-ray demonstrated possible trace bilateral pleural effusions with interstitial prominence suggestive of edema. Labs were significant for creatinine 1.95, BUN 51, albumin 3.0, hemoglobin 11.2, MCV 92.8, proBNP 10,982, troponin 79.4, PT 12.6, INR 1.2. Patient was started on dopamine infusion. EKG after being started on dopamine infusion was significant for sthird-degree heart block with T wave inversions in lead III, aVR with heart rate 59. [facility] by [facility]. She was started on dopamin gtt, she underwent Pacemaker placement by EP on 09/11, she tolerated the procedure very well. She was resumed on her home BP meds except nifedipine. Patient remained HD , afebrile. AICD was interrogated. Repeat CXR with no pneumothorax Pertinent Physical Exam At Time of Discharge Physical Exam General: No acute distress HEENT: Normocephalic, atraumatic, EOMI, no scleral icterus or erythema Neck: Supple, trachea midline, no masses noted Cardiovascular: Regular rate and rhythm, normal S1-S2, no murmurs, no rubs, no peripheral edema. Pacemaker insertion site looks intact, no hematoma. Respiratory: No acute respiratory distress, clear to auscultation bilaterally, no wheezing, no rales Abdomen: Soft, nontender, nondistended, positive bowel sounds Extremities: No cyanosis, no edema Neuro: No focal deficits Skin: Warm, dry, no rashes Lab Results Labs Reviewed COMPREHENSIVE METABOLIC PANEL - Abnormal Result Value Sodium 133 (*) Potassium 4.0 Chloride 106 CO2 18 (*) Anion Gap 9 BUN 50 (*) Creatinine 1.83 (*) BUN/Creatinine Ratio 27.32 Glucose 144 (*) Calcium 8.3 (*) AST 11 (*) ALT (SGPT) 8 Alkaline Phosphatase 75 Total Protein 5.9 (*) Albumin 3.3 (*) Total Bilirubin 1.0 eGFR 26.2 (*) MAGNESIUM - Abnormal Magnesium 1.6 (*) PROTIME-INR - Abnormal Protime 16.6 (*) INR 1.36 (*) TSH3 REFLEX TO FT4 - Abnormal TSH 6.40 (*) CBC WITH AUTO DIFFERENTIAL - Abnormal Auto WBC 9.85 RBC 3.73 (*) Hemoglobin 10.6 (*) Hematocrit 33.5 (*) MCV 89.8 MCH 28.4 MCHC 31.6 (*) RDW 13. (more content not included)... [facility] MAGNESIUMon 09-12-2022 Magnesium [Mass/Vol] 1.9 mg/dL Normal 1.9-2.7 [facility] Comment on above: Performed By: #### L [id number] ####[facility] [place] [address] NURSNOTEon 09-12-2022 NURSNOTE Taught patient and h er discharge instructions, when to call doctor, follow up appointments, and medication changes. Normal [facility] PHOSPHORUSon 09-12-2022 Magnesium [Mass/Vol] 3.2 mg/dL Normal 2.5-5.0 [facility] Comment on above: Performed By: #### L [id number] ####[facility] ([facility])[address] [place] [address] POCT GLUCOSE METER UNSOLICIT ED RESULTSon 09-12-2022 Glucose [Mass/Vol] 96 mg/dL Normal 70-105 [facility] Comment on above: Result Comment: aide er2 Performed By: #### L [id number] #### [facility] ([facility]) [address] [place] [address] Glucose [Mass/Vol] 138 mg/dL High 70-105 [facility] Comment on above: Result Comment: chito es Performed By: #### L [id number] #### [facility] ([facility]) [address] [place] [address] APTTon 09-11-2022 ACTIVATED PARTIAL THROMBOPLASTIN TIME IN PPP BY COAGULATION ASSAY 48.0 Seconds High 25.0-35.0 [facility] Comment on above: Performed By: #### L [id number] #### [facility] ([facility]) [address] [address] CBC WITH AUTO DIFFERENTIALon 09-11-2022 Basophils (Bld) [#/Vol] 0.02 10*3/uL Normal 0.00-0.20 [facility] Comment on above: Performed By: #### L [id number] ####[facility] ([facility])[address] [place] [address] Basophils/100 WBC (Bld) 0.3 % Normal 0.0-1.0 [facility] Comment on above: Performed By: #### L [id number] ####[facility] ([facility])[address] [place] [address] Eosinophils (Bld) [#/Vol] 0.12 10*3/uL Normal 0.00-0.50 [facility] Comment on above: Performed By: #### L [id number] ####[facility] (BEAKER)[address] [place] [address] Eosinophils/100 WBC (Bld) 2.0 % Normal 0.0-6.0 [facility] Comment on above: Performed By: #### L [id number] ####[facility] (BEAKER)[address] [place] [address] Erythrocyte distribution width (RBC) [Ratio] 13.2 % Normal 11.5-15.0 [facility] Comment on above: Performed By: #### L [id number] ####[facility] (BEAKER)[address] [place] [address] ERYTHROCYTE MEAN CORPUSCULAR HEMOGLOBIN CONCENTRATION (G/DL) BY AUTOMATED 31.7 g/dL Low 32.0-35.[address] [facility] Comment on above: Performed By: #### L [id number] ####[facility] (BEAKER)[address] [place] [address] Hematocrit (Bld) [Volume fraction] 30.0 % Low 36.0-48.0 [facility] Comment on above: Performed By: #### L [id number] ####[facility] (BEAKER)[address] [place] [address] Hemoglobin (Bld) [Mass/Vol] 9.5 g/dL Low 12.0-15.0 [facility] Comment on above: Performed By: #### L [id number] ####[facility] (BEAKER)[address] [place] [address] Immature granulocytes (Bld) [#/Vol] 0.02 10*3/uL Normal 0.00-0.20 [facility] Comment on above: Performed By: #### L [id number] ####[facility] (BEAKER)[address] [place] [address] Immature granulocytes/100 WBC (Bld) 0.3 % Normal 0.0-1.0 [facility] Comment on above: Performed By: #### L [id number] ####[facility] (BEAKER)[address] [place] [address] Lymphocytes (Bld) [#/Vol] 1.23 10*3/uL Normal 1.20-4.00 [facility] Comment on above: Performed By: #### L [id number] ####[facility] (BEAKER)[address] [place] [address] Lymphocytes/100 WBC (Bld) 21.0 % Normal 20.0-45.0 [facility] Comment on above: Performed By: #### L [id number] ####[facility] (BEAKER)[address] [place] [address] MCH (RBC) [Entitic mass] 29.4 pg Normal 27.0-33.0 [facility] Comment on above: Performed By: #### L [id number] ####[facility] (BEAKER)[address] [place] [address] MCV (RBC) [Entitic vol] 92.9 fL Normal 82.0-98.0 [facility] Comment on above: Performed By: #### L [id number] ####[facility] (BEAKER)[address] [place] [address] Monocytes (Bld) [#/Vol] 0.62 10*3/uL Normal 0.10-1.00 [facility] Comment on above: Performed By: #### L [id number] ####[facility] (BEAKER)[address] [place] [address] Monocytes/100 WBC (Bld) 10.6 % Normal 5.0-12.0 [facility] Comment on above: Performed By: #### L [id number] ####[facility] (BEAKER)[address] [place] [address] Neutrophils (Bld) [#/Vol] 3.85 10*3/uL Normal 1.60-7.60 [facility] Comment on above: Performed By: #### L [id number] ####[facility] (BEAKER)[address] [place] [address] Neutrophils/100 WBC (Bld) 65.8 % Normal 40.0-72.0 [facility] Comment on above: Performed By: #### L [id number] ####[facility] ([facility])[address] [place] [address] NRBC (PER 100 WBCS) BY AUTOMATED COUNT 0.0 % Normal 0.0-0.0 [facility] Comment on above: Performed By: #### L [id number] ####[facility] ([facility])[address] [place] [address] PLATELETS (10*3/UL) IN BLOOD AUTOMATED COUNT 165 10*3/uL Normal 150-400 [facility] Comment on above: Performed By: #### L [id number] ####[facility] ([facility])[address] [place] [address] RBC (Bld) [#/Vol] 3.23 10*6/uL Low 3.80-5.00 [facility] Comment on above: Performed By: #### L [id number] ####[facility] ([facility])[address] [place] [address] WBC (Bld) [#/Vol] 5.86 10*3/uL Normal 4.00-10.60 [facility] Comment on above: Performed By: #### L [id number] ####[facility] ([facility])[address] [place] [address] COMPREHENSIVE METABOLIC PANE Otto 09-11-2022 Albumin [Mass/Vol] 3.1 g/dL Low 3.5-5.7 [facility] Comment on above: Performed By: #### L [id number] ####[facility] [place] [address] ALP [Catalytic activity/Vol] 65 U/L Normal 34-104 [facility] Comment on above: Performed By: #### L [id number] ####[facility] [place] [address] ALT [Catalytic activity/Vol] 7 U/L Normal 7-52 [facility] Comment on above: Performed By: #### L [id number] ####[facility])[address] [place] [address] Anion gap [Moles/Vol] 7 mmol/L Normal 7-20 [facility] Comment on above: Performed By: #### L [id number] ####[facility] ([facility])[address] [place] [address] AST [Catalytic activity/Vol] 10 U/L Low 13-39 [facility] Comment on above: Performed By: #### L [id number] ####[facility] ([facility])[address] [place] [address] Bilirubin [Mass/Vol] 0.7 mg/dL Normal 0.3-1.0 [facility] Comment on above: Performed By: #### L [id number] ####[facility] (BEAKER)[address] [place] [address] Calcium [Mass/Vol] 8.2 mg/dL Low 8.6-10.3 [facility] Comment on above: Performed By: #### L [id number] ####[facility])[address] [place] [address] Chloride [Moles/Vol] 112 mmol/L High 98-107 [facility] Comment on above: Performed By: #### L [id number] ####[facility])[address] [place] [address] CO2 [Moles/Vol] 19 mmol/L Low 21-31 [facility] Comment on above: Performed By: #### L [id number] ####[facility])[address] [place] [address] Creatinine [Mass/Vol] 1.69 mg/dL High 0.60-1.20 [facility] Comment on above: Performed By: #### L [id number] ####[facility])[address] [place] [address] GLOMERULAR FILTRATION RATE ML/MIN/1.73 SQ M.PREDICTED 28.9 mL/min/1.73m*2 Low >60.[address] [facility] Comment on above: Result Comment: [facility]???s estimated glomerular filtration rate (eGFR) will no longer include consideration of race in its calculation. The National Kidney Foundation???s eGFR Task Force developed new recommendations for the estimation of the glomerular filtration rate in the [place] They recommend immediate implementation of the new equation refit without the race variable in all laboratories because the calculation does not include race. In addition to not including race in the calculation and reporting, it included diversity in its development, and has acceptable performance characteristics and potential consequences that do not disproportionately affect any one group of individuals. Performed By: #### L [id number] ####[facility] ([facility])[address] [place] [address] Glucose [Mass/Vol] 106 mg/dL High 70-100 [facility] Comment on above: Performed By: #### L [id number] ####[facility] ([facility])[address] [place] [address] Potassium [Moles/Vol] 3.9 mmol/L Normal 3.5-5.1 [facility] Comment on above: Performed By: #### L [id number] ####[facility] ([facility])[address] [place] [address] Protein [Mass/Vol] 5.5 g/dL Low 6.0-8.3 [facility] Comment on above: Performed By: #### L [id number] ####[facility] ([facility])[address] [place] [address] Sodium [Moles/Vol] 138 mmol/L Normal 136-145 [facility] Comment on above: Performed By: #### L [id number] ####[facility] [place] [address] Urea nitrogen [Mass/Vol] 43 mg/dL High 7-25 [facility] Comment on above: Performed By: #### L [id number] ####[facility] ([facility])[address] [place] [address] UREA NITROGEN/CREATININE (MASS RATIO) IN SER/PLAS 25.44 [facility] Comment on above: Performed By: #### L [id number] ####[facility] ([facility])[address] [place] [address] HPon 09-11-2022 HP H&P reviewed. The jordon mendez was examined and there are no changes to the H&P. Normal [facility] MAGNESIUMon 09-11-2022 Magnesium [Mass/Vol] 2.3 mg/dL Normal 1.9-2.7 [facility] Comment on above: Performed By: #### L [id number] #### [facility] ([facility]) [address] [place] [address] PHOSPHORUSon 09-11-2022 Magnesium [Mass/Vol] 3.3 mg/dL Normal 2.5-5.0 [facility] Comment on above: Performed By: #### L [id number] #### [facility] ([facility]) [address] [place] [address] POCT GLUCOSE METER UNSOLICIT ED RESULTSon 09-11-2022 Glucose [Mass/Vol] 100 mg/dL Normal 70-105 [facility] Comment on above: Result Comment: [email or web address] [email or web address] Performed By: #### L [id number] #### [facility] ([facility]) [address] [place] [address] Glucose [Mass/Vol] 111 mg/dL High 70-105 [facility] Comment on above: Result Comment: [email or web address] [email or web address] Performed By: #### L [id number] #### [facility] ([facility]) [address] [place] [address] Glucose [Mass/Vol] 107 mg/dL High 70-105 [facility] Comment on above: Result Comment: [email or web address] Performed By: #### L [id number] #### [facility] ([facility]) [address] [place] [address] PROTIME-INRon 09-11-2022 INR IN PPP BY COAGULATION ASSAY 1.51 High 0.90-1.10 [facility] Comment on above: Result Comment: ACCC P RECOMMENDED INR FOR WARFARIN THERAPY CONDITION INR PROPHYLAXIS OF VENOUS THROMBOSIS 2-3 (HIGH-RISK SURGERY) TREATMENT OF VENOUS THROMBOSIS 2-3 TREATMENT OF PULMONARY EMBOLISM 2-3 PREVENTION OF SYSTEMIC EMBOLISM: 2-3 ACUTE MYOCARDIAL INFARCTION TISSUE HEART VALVES VALVULAR HEART DISEASE ATRIAL FIBRILLATION RECURRENT SYSTEMIC EMBOLISM MECHANICAL HEART VALVE 2.5-3.5 FROM: ORAL ANTICOAGULANTS. MECHANISM OF ACTION, CLINICAL EFFECTIVENESS, AND OPTIMAL THERAPEUTIC RANGE. CHEST 1995;108:231S-246S. Performed By: #### L [id number] ####[facility] [employer])[address] [place] [address] PROTHROMBIN TIME (PT) IN PPP BY COAGULATION ASSAY 18.1 Seconds High 12.3-14.8 [facility] Comment on above: Performed By: #### L [id number] ####[facility] [employer])[address] [place] [address] B-TYPE NATRIURETIC PEPTIDEon 09-10-2022 Natriuretic peptide B (Bld) [Mass/Vol] 1226 pg/mL High 0-100 [facility] Comment on above: Performed By: #### L [id number] #### [facility] ([employer]) [address] [place] [address] BNPon 09-10-2022 Natriuretic peptide B (Bld) [Mass/Vol] 67448.0 pg/mL Critically high <=1,800.0 [facility] Comment on above: Performed By: #### B PHILIPPE, HSTROPN #### [facility] [address] [place] [address] Dr. Madisyn Bentley CBC AUTO DIFFon 09-10-2022 BASO # 0.0 103/ul Normal 0.0-0.1 [facility] Comment on above: Performed By: #### R ENAL #### [facility] [address] [place] [address] Dr. Madisyn Bentley Basophils/100 WBC (Bld) 0.3 % Normal 0.2-2.0 [facility] Comment on above: Performed By: #### R ENAL #### [facility] [address] [place] [address] Dr. Madisyn Bentley EO # 0.3 103/ul Normal 0.0-0.7 [facility] Comment on above: Performed By: #### R ENAL #### [facility] [address] [place] [address] Dr. Madisyn Bentley Eosinophils/100 WBC (Bld) 2.4 % Normal 0.9-7.0 [facility] Comment on above: Performed By: #### R ENAL #### [facility] [address] [place] [address] Dr. Madisyn Bentley Erythrocyte distribution width (RBC) [Ratio] 13.3 % Normal 11.0-15.0 [facility] Comment on above: Performed By: #### R ENAL #### [facility] [address] [place] [address] Dr. Madisyn Bentley Hematocrit (Bld) [Volume fraction] 36.0 % Normal 36.0-48.0 [facility] Comment on above: Performed By: #### R ENAL #### [facility] [address] [place] [address] Dr. Madisyn Bentley Hemoglobin (Bld) [Mass/Vol] 11.2 g/dL Critically low 12.0-16.0 [facility] Comment on above: Performed By: #### R ENAL #### [facility] [address] [place] [address] Dr. Madisyn Bentley IG # 0.02 10e3/ul Normal 0.00-0.03 [facility] Comment on above: Performed By: #### R ENAL #### [facility] [address] [place] [address] Dr. Madisyn Bentley IG % 0.2 % Normal 0.0-0.5 [facility] Comment on above: Performed By: #### R ENAL #### [facility] [address] [place] [address] [address] Madisyn Bentley LYMPH # 1.4 103/ul Normal 1.2-3.8 [facility] Comment on above: Performed By: #### R ENAL #### [facility] [address] [place] [address] Dr. Madisyn Bentley Lymphocytes/100 WBC (Bld) 13.3 % Critically low 20.5-60.0 [facility] Comment on above: Performed By: #### R ENAL #### [facility] [address] [place] [address] Dr. Madisyn Bentley MANUAL DIFF REQ NO Normal [facility] Comment on above: Performed By: #### R ENAL #### [facility] [address] [place] [address] Dr. Madisyn Bentley MCH (RBC) [Entitic mass] 28.9 pg Normal 26.7-34.0 [facility] Comment on above: Performed By: #### R ENAL #### [facility] [address] [place] [address] Dr. Madisyn Bentley MCHC (RBC) [Mass/Vol] 31.1 g/dL Normal 29.9-35.2 [facility] Comment on above: Performed By: #### R ENAL #### [facility] [address] [place] [address] Dr. Madisyn Bentley MCV (RBC) [Entitic vol] 92.8 fL Normal 81.0-99.0 [facility] Comment on above: Performed By: #### R ENAL #### [facility] [address] [place] [address] Dr. Madisyn Bentley MONO # 0.9 103/ul Critically high 0.3-0.8 [facility] Comment on above: Performed By: #### R ENAL #### [facility] [address] [address] [address] Madisyn Bentley Monocytes/100 WBC (Bld) 8.4 % Normal 1.7-12.0 [facility] Comment on above: Performed By: #### R ENAL #### [facility] [address] [place] [address] [address] Madisyn Bentley NEUT # 8.1 103/ul Critically high 1.4-6.5 [facility] Comment on above: Performed By: #### R ENAL #### [facility] [address] [place] [address] Dr. Madisyn Bentley Neutrophils/100 WBC (Bld) 75.4 % Critically high 43.0-75.0 [facility] Comment on above: Performed By: #### R ENAL #### [facility] [address] [place] [address] Dr. Madisyn Bentley Platelet mean volume (Bld) [Entitic vol] 12.8 fL Normal 9.5-13.5 [facility] Comment on above: Performed By: #### R ENAL #### [facility] [address] [place] [address] Dr. Madisyn Bentley PLT 200 103/ul Normal 150-450 [facility] Comment on above: Performed By: #### R ENAL #### [facility] [address] [place] [address] Dr. Madisyn Bentley RBC 3.88 106/ul Critically low 4.20-5.40 [facility] Comment on above: Performed By: #### R ENAL #### [facility] [address] [place] [address] Dr. Madisyn Bentley WBC 10.8 103/ul Normal 4.0-11.0 [facility] Comment on above: Performed By: #### R ENAL #### [facility] [address] [place] [address] Dr. Madisyn Bentley CBC WITH AUTO DIFFERENTIALon 09-10-2022 Basophils (Bld) [#/Vol] 0.03 10*3/uL Normal 0.00-0.20 [facility] Comment on above: Performed By: #### L [id number] ####[facility] (BEAKER)[address] [place] [address] Basophils/100 WBC (Bld) 0.3 % Normal 0.0-1.0 [facility] Comment on above: Performed By: #### L [id number] ####[facility] (BEAKER)[address] [place] [address] Eosinophils (Bld) [#/Vol] 0.08 10*3/uL Normal 0.00-0.50 [facility] Comment on above: Performed By: #### L [id number] ####[facility] (BEAKER)[address] [place] [address] Eosinophils/100 WBC (Bld) 0.8 % Normal 0.0-6.0 [facility] Comment on above: Performed By: #### L [id number] ####[facility] [place] [address] Erythrocyte distribution width (RBC) [Ratio] 13.2 % Normal 11.5-15.0 [facility] Comment on above: Performed By: #### L [id number] ####[facility] (BEAKER)[address] [place] [address] ERYTHROCYTE MEAN CORPUSCULAR HEMOGLOBIN CONCENTRATION (G/DL) BY AUTOMATED 31.6 g/dL Low 32.0-35.[address] [facility] Comment on above: Performed By: #### L [id number] ####[facility] (BEAKER)[address] [place] [address] Hematocrit (Bld) [Volume fraction] 33.5 % Low 36.0-48.0 [facility] Comment on above: Performed By: #### L [id number] ####[facility] (BEAKER)[address] [place] [address] Hemoglobin (Bld) [Mass/Vol] 10.6 g/dL Low 12.0-15.0 [facility] Comment on above: Performed By: #### L [id number] ####[facility] (BEAKER)[address] [place] [address] Immature granulocytes (Bld) [#/Vol] 0.03 10*3/uL Normal 0.00-0.20 [facility] Comment on above: Performed By: #### L [id number] ####[facility] (BEAKER)[address] [place] [address] Immature granulocytes/100 WBC (Bld) 0.3 % Normal 0.0-1.0 [facility] Comment on above: Performed By: #### L [id number] ####[facility] (BEAKER)[address] [place] [address] Lymphocytes (Bld) [#/Vol] 1.12 10*3/uL Low 1.20-4.00 [facility] Comment on above: Performed By: #### L [id number] ####[facility] (BEAKER)[address] [place] [id number] Lymphocytes/100 WBC (Bld) 11.4 % Low 20.0-45.0 [facility] Comment on above: Performed By: #### L [id number] ####[facility] (BEAKER)[address] [place] [address] MCH (RBC) [Entitic mass] 28.4 pg Normal 27.0-33.0 [facility] Comment on above: Performed By: #### L [id number] ####[facility] (BEAKER)[address] [place] [address] MCV (RBC) [Entitic vol] 89.8 fL Normal 82.0-98.0 [facility] Comment on above: Performed By: #### L [id number] ####[facility] (BEAKER)[address] [place] [address] Monocytes (Bld) [#/Vol] 0.90 10*3/uL Normal 0.10-1.00 [facility] Comment on above: Performed By: #### L [id number] ####[facility] (BEAKER)[address] [place] [address] Monocytes/100 WBC (Bld) 9.1 % Normal 5.0-12.0 [facility] Comment on above: Performed By: #### L [id number] ####[facility] [place] [address] Neutrophils (Bld) [#/Vol] 7.69 10*3/uL High 1.60-7.60 [facility] Comment on above: Performed By: #### L [id number] ####[facility] ([facility])[address] [place] [address] Neutrophils/100 WBC (Bld) 78.1 % High 40.0-72.0 [facility] Comment on above: Performed By: #### L [id number] ####[facility] ([facility])[address] [place] [address] NRBC (PER 100 WBCS) BY AUTOMATED COUNT 0.0 % Normal 0.0-0.0 [facility] Comment on above: Performed By: #### L [id number] ####[facility] ([facility])[address] [place] [address] PLATELETS (10*3/UL) IN BLOOD AUTOMATED COUNT 204 10*3/uL Normal 150-400 [facility] Comment on above: Performed By: #### L [id number] ####[facility] ([facility] [place] [address] RBC (Bld) [#/Vol] 3.73 10*6/uL Low 3.80-5.00 [facility] Comment on above: Performed By: #### L [id number] ####[facility] (BEAKER)[address] [place] [address] WBC (Bld) [#/Vol] 9.85 10*3/uL Normal 4.00-10.60 [facility] Comment on above: Performed By: #### L [id number] ####[facility] (BEAKER)[address] [place] [address] COMPREHENSIVE METABOLIC PANE Otto 09-10-2022 Albumin [Mass/Vol] 3.3 g/dL Low 3.5-5.7 [facility] Comment on above: Performed By: #### L [id number] #### [facility] ([facility] [address] [place] [address] ALP [Catalytic activity/Vol] 75 U/L Normal 34-104 [facility] Comment on above: Performed By: #### L [id number] #### [facility] ([facility] [address] [place] [address] ALT [Catalytic activity/Vol] 8 U/L Normal 7-52 [facility] Comment on above: Performed By: #### L [id number] #### [facility] ([facility]) [address] [place] [address] Anion gap [Moles/Vol] 9 mmol/L Normal 7-20 [facility] Comment on above: Performed By: #### L [id number] #### [facility] ([facility] [address] [place] [address] AST [Catalytic activity/Vol] 11 U/L Low 13-39 [facility] Comment on above: Performed By: #### L [id number] #### [facility] ([facility] [address] [place] [address] Bilirubin [Mass/Vol] 1.0 mg/dL Normal 0.3-1.0 [facility] Comment on above: Performed By: #### L [id number] #### [facility] ([facility] [address] [place] [address] Calcium [Mass/Vol] 8.3 mg/dL Low 8.6-10.3 [facility] Comment on above: Performed By: #### L [id number] #### [facility] (BEAKER) [address] [place] [address] Chloride [Moles/Vol] 106 mmol/L Normal 98-107 [facility] Comment on above: Performed By: #### L [id number] #### [facility] ([facility] [address] [place] [address] CO2 [Moles/Vol] 18 mmol/L Low 21-31 [facility] Comment on above: Performed By: #### L [id number] #### [facility] ([facility]) [address] [place] [address] Creatinine [Mass/Vol] 1.83 mg/dL High 0.60-1.20 [facility] Comment on above: Performed By: #### L [id number] #### [facility] ([facility]) [address] [place] [address] GLOMERULAR FILTRATION RATE ML/MIN/1.73 SQ M.PREDICTED 26.2 mL/min/1.73m*2 Low >60.[address] [facility] Comment on above: Result Comment: [facility]???s estimated glomerular filtration rate (eGFR) will no longer include consideration of race in its calculation. The National Kidney Foundation???s eGFR Task Force developed new recommendations for the estimation of the glomerular filtration rate in the [place] They recommend immediate implementation of the new equation refit without the race variable in all laboratories because the calculation does not include race. In addition to not including race in the calculation and reporting, it included diversity in its development, and has acceptable performance characteristics and potential consequences that do not disproportionately affect any one group of individuals. Performed By: #### L [id number] #### [facility] ([facility]) [address] [place] [address] Glucose [Mass/Vol] 144 mg/dL High 70-100 [facility] Comment on above: Performed By: #### L [id number] #### [facility] ([facility]) [address] [place] [address] Potassium [Moles/Vol] 4.0 mmol/L Normal 3.5-5.1 [facility] Comment on above: Performed By: #### L [id number] #### [facility] ([facility] [address] [place] [address] Protein [Mass/Vol] 5.9 g/dL Low 6.0-8.3 [facility] Comment on above: Performed By: #### L [id number] #### [facility] (BEAKER) [address] [place] [address] Sodium [Moles/Vol] 133 mmol/L Low 136-145 [facility] Comment on above: Performed By: #### L [id number] #### [facility] ([facility] [address] [place] [address] Urea nitrogen [Mass/Vol] 50 mg/dL High 7-25 [facility] Comment on above: Performed By: #### L [id number] #### [facility] ([facility]) [address] [place] [address] UREA NITROGEN/CREATININE (MASS RATIO) IN SER/PLAS 27.32 Normal [facility] Comment on above: Performed By: #### L [id number] #### [facility] ([facility]) [address] [place] [address] CONSULTon 09-10-2022 CONSULT ----- ----- Attestation signed by Doe Soto MD at 09/10/2022 10:38 PM By using the attestations below, the signing clinician agrees that I have read and verify that the documentation has been personally reviewed by me and ensure that the documentation accurately reflects the encounter. GC: I personally saw this patient on the day of the encounter, performed the diaz portion(s) of the service and participated in the management and confirm the resident's documentation. Please note there may be an additional personal documentation from me. ----- Cardiology Consult Note Reason for Consult: AV block with HR in 30s. HPI: Trisha Parish is a 77 y.o. female w/ PMH of CAD s/p CABG (2014), pAF s/p MAZE and PARISH ligation, prior CVA, moderate Carotid Stenosis and CKD who is currently in Mobitz type II/Complete HB. She was transferred over from [facility] due to heart rate in the 30s. She denies any chest pain, shortness of breath, palpitations, lightheadedness/dizziness , syncope. It was advised to start her on a dopamine drip due to low heart rates in the 30s. Blood pressure is preserved at the moment. Cardiology ROS: GENERAL: Denies fever, chills, night sweats, weight loss. HEENT: Denies changes in vision, photophobia, changes in hearing, epistaxis, oral bleeding. CARDIOVASCULAR: Denies chest pain, exertional dyspnea, orthopnea/PND, lower extremity edema, palpitations, lightheadedness/dizziness , syncope. RESPIRATORY: Denies SOB, coughing, wheezing GI: Denies abdominal pain, nausea/vomiting, heartburn, melena/hematochezia. RENAL: Denies dysuria, hematuria, flank pain. MSK: Denies muscle weakness/pain, arthralgias/joint pain. NEUROLOGIC: Denies LOC, weakness, numbness, headaches. SKIN: Denies abnormal rashes or bleeding. PSYCH: Denies significant anxiety, depression, sleep disturbances. Past Medical History She has a past medical history of A-fib ([facility]), Cancer ([facility]), Coronary artery disease, Hypertension, Myocardial infarct ([facility]), and Stroke ([facility]). Surgical History She has a past surgical history that includes Breast surgery; Hysterectomy; Cholecystectomy; and Coronary artery bypass graft. Social History She reports that she has never smoked. She has never used smokeless tobacco. She reports that she does not drink alcohol and does not use drugs. Family History No family history on file. Allergies Demerol [meperidine] Medications Medications Prior to Admission Medication Sig Dispense Refill Last Dose ALPRAZolam (Xanax) 0.25 mg tablet Take 0.25 mg by mouth if needed at bedtime for anxiety. atorvastatin (Lipitor) 80 mg tablet Take 80 mg by mouth in the morning. carvedilol (Coreg) 25 mg tablet Take 25 mg by mouth with breakfast and with evening meal. cholecalciferol, vitamin D3, (Vitamin D3) 50 mcg (2,000 unit) capsule Take by mouth. clopidogrel (Plavix) 75 mg tablet Take by mouth in the morning. hydrALAZINE (Apresoline) 25 mg tablet Take 25 mg by mouth in the morning and at bedtime. lisinopril 20 mg tablet Take 20 mg by mouth in the morning. MELATONIN ORAL Take by mouth 4 (four) times a week. Sun,,Sun,Sun NIFEdipine CC (Adalat CC) 30 mg 24 hr tablet Take 30 mg by mouth at bedtime. Do not crush, chew, or split. NIFEdipine CC (Adalat CC) 90 mg 24 hr tablet Take 90 mg by mouth before breakfast. Do not crush, chew, or split. sennosides-docusate sodium (Edna-Colace) 8.6-50 mg tablet Take 1 tablet by mouth in the morning. Sun,,Sun,Sun Last Recorded Vitals Patient Vitals for the past 24 hrs: BP Temp Temp src Pulse Resp SpO2 Height Weight 09/10/22 1115 (!) 129/44 36.7 ???C (98.1 ???F) Temporal (!) 37 15 98 % 1.6 m (5' 3 ) 72.8 kg (160 lb 7.9 oz) Physical Examination: GENERAL: AOx3, overweight, in no acute distress. HEAD: Atraumatic, normocephalic. EYES: JUAN, EOMI. NECK: No JVD present, no carotid bruits present. CARDIAC: S1, S2 present. Sinus bradycardia with heart block. No murmur, rubs, or gallops. RESPIRATORY: CTAB, no increased effort of breathing. ABDOMEN: Soft, nontender, nondistended. EXTREMITIES: No lower extremity edema, peripheral pulses are 2+ bilaterally. NEURO: No focal deficits. PSYCH: appropriate mood, affect. Relevant Lab Results No results found for this or any previous visit (from the past 4464 hour(s)). No results found for: CKTOTAL, CKMB, CKMBINDEX, TROPONINI No echocardiogram results found for the past 12 months No nuclear medicine results found for the past 12 months Relevant Imaging Results No image results found. Assessment: Trisha Parish is a 77 y.o. female w/ PMH of CAD s/p CABG (2014), pAF s/p MAZE and PARISH ligation, prior CVA, moderate Carotid Stenosis and CKD who is currently in Mobitz type II/Complete HB. Last echo in 2020 showed preserved EF. (more content not included)... [facility] Covid-19 PCR (CVDTB)on SARS-CoV-2 (COVID-19) RNA SUSAN+probe Ql (Unsp spec) Not detected Normal NOT DETECTED [facility] Comment on above: Result Comment: When diagnostic testing is negative, the possibility of a false negative should be considered in the context of a patient's recent exposures and the presence of clinical signs and symptoms consistent with SARS-CoV-2. This test is not yet approved or cleared by the [place] FDA. When there are no FDA-approved or cleared tests available, and other criteria are met, FDA can make tests available under an emergency access mechanism called an Emergency Use Authorization (EUA). The EUA for this test is supported by the Program Analyst of Health and Human Service's declaration that circumstances exist to justify the emergency use of in vitro diagnostics for the detection and/or diagnosis of the virus that causes COVID-19. This EUA will remain in effect for the duration of the COVID-19 declaration justifying emergency of IVDs, unless it is terminated or revoked by the FDA (after which the test may no longer be used). Performed By: #### P T, PTT #### [facility] [address] [place], [place] [address] Dr. Madisyn Bentley FERRITINon 09-10-2022 FERRITIN (NG/ML) IN SER/PLAS 97.0 ng/mL Normal 11.0-307.0 [facility] Comment on above: Performed By: #### L [id number] #### [facility] (BEAKER) [address] [place] [address] FOLATEon 09-10-2022 FOLATE (NG/ML) IN SER/PLAS 9.99 ng/mL Normal 6.6-1000 [facility] Comment on above: Performed By: #### L [id number] ####[facility] (BEAKER)[address] [place] [place] [address] HEMOGLOBIN A1Con 09-10-2022 Glucose [Mass/Vol] 136.98 mg/dL Normal [facility] Comment on above: Performed By: #### L [id number] ####[facility] (BEAKER)[address] [place] [address] HbA1c (Bld) [Mass fraction] 6.4 % High 4.0-6.0 [facility] Comment on above: Performed By: #### L [id number] ####[facility] (BEAKER)[address] [place] [address] HPon 09-10-2022 HP ----- ----- Attestation signed by Doe Soto MD at 09/10/2022 10:38 PM By using the attestations below, the signing clinician agrees that I have read and verify that the documentation has been personally reviewed by me and ensure that the documentation accurately reflects the encounter. GC: I personally saw this patient on the day of the encounter, performed the diaz portion(s) of the service and participated in the management and confirm the resident's documentation. Please note there may be an additional personal documentation from me. ----- Cardiology Consult Note Reason for Consult: AV block with HR in 30s. HPI: Trisha Parish is a 77 y.o. female w/ PMH of CAD s/p CABG (2015), pAF s/p MAZE and PARISH ligation, prior CVA, moderate Carotid Stenosis and CKD who is currently in Mobitz type II/Complete HB. She was transferred over from [facility] due to heart rate in the 30s. She denies any chest pain, shortness of breath, palpitations, lightheadedness/dizziness , syncope. It was advised to start her on a dopamine drip due to low heart rates in the 30s. Blood pressure is preserved at the moment. Cardiology ROS: GENERAL: Denies fever, chills, night sweats, weight loss. HEENT: Denies changes in vision, photophobia, changes in hearing, epistaxis, oral bleeding. CARDIOVASCULAR: Denies chest pain, exertional dyspnea, orthopnea/PND, lower extremity edema, palpitations, lightheadedness/dizziness , syncope. RESPIRATORY: Denies SOB, coughing, wheezing GI: Denies abdominal pain, nausea/vomiting, heartburn, melena/hematochezia. RENAL: Denies dysuria, hematuria, flank pain. MSK: Denies muscle weakness/pain, arthralgias/joint pain. NEUROLOGIC: Denies LOC, weakness, numbness, headaches. SKIN: Denies abnormal rashes or bleeding. PSYCH: Denies significant anxiety, depression, sleep disturbances. Past Medical History She has a past medical history of A-fib ([facility]), Cancer ([facility]), Coronary artery disease, Hypertension, Myocardial infarct ([facility]), and Stroke ([facility]). Surgical History She has a past surgical history that includes Breast surgery; Hysterectomy; Cholecystectomy; and Coronary artery bypass graft. Social History She reports that she has never smoked. She has never used smokeless tobacco. She reports that she does not drink alcohol and does not use drugs. Family History No family history on file. Allergies Demerol [meperidine] Medications Medications Prior to Admission Medication Sig Dispense Refill Last Dose ALPRAZolam (Xanax) 0.25 mg tablet Take 0.25 mg by mouth if needed at bedtime for anxiety. atorvastatin (Lipitor) 80 mg tablet Take 80 mg by mouth in the morning. carvedilol (Coreg) 25 mg tablet Take 25 mg by mouth with breakfast and with evening meal. cholecalciferol, vitamin D3, (Vitamin D3) 50 mcg (2,000 unit) capsule Take by mouth. clopidogrel (Plavix) 75 mg tablet Take by mouth in the morning. hydrALAZINE (Apresoline) 25 mg tablet Take 25 mg by mouth in the morning and at bedtime. lisinopril 20 mg tablet Take 20 mg by mouth in the morning. MELATONIN ORAL Take by mouth 4 (four) times a week. Sun,,Sun,Sun NIFEdipine CC (Adalat CC) 30 mg 24 hr tablet Take 30 mg by mouth at bedtime. Do not crush, chew, or split. NIFEdipine CC (Adalat CC) 90 mg 24 hr tablet Take 90 mg by mouth before breakfast. Do not crush, chew, or split. sennosides-docusate sodium (Edna-Colace) 8.6-50 mg tablet Take 1 tablet by mouth in the morning. Sun,,Sun,Sun Last Recorded Vitals Patient Vitals for the past 24 hrs: BP Temp Temp src Pulse Resp SpO2 Height Weight 09/10/22 1115 (!) 129/44 36.7 ???C (98.1 ???F) Temporal (!) 37 15 98 % 1.6 m (5' 3 ) 72.8 kg (160 lb 7.9 oz) Physical Examination: GENERAL: AOx3, overweight, in no acute distress. HEAD: Atraumatic, normocephalic. EYES: JUAN, EOMI. NECK: No JVD present, no carotid bruits present. CARDIAC: S1, S2 present. Sinus bradycardia with heart block. No murmur, rubs, or gallops. RESPIRATORY: CTAB, no increased effort of breathing. ABDOMEN: Soft, nontender, nondistended. EXTREMITIES: No lower extremity edema, peripheral pulses are 2+ bilaterally. NEURO: No focal deficits. PSYCH: appropriate mood, affect. Relevant Lab Results No results found for this or any previous visit (from the past 4464 hour(s)). No results found for: CKTOTAL, CKMB, CKMBINDEX, TROPONINI No echocardiogram results found for the past 12 months No nuclear medicine results found for the past 12 months Relevant Imaging Results No image results found. Assessment: Trisha Parish is a 77 y.o. female w/ PMH of CAD s/p CABG (2014), pAF s/p MAZE and PARISH ligation, prior CVA, moderate Carotid Stenosis and CKD who is currently in Mobitz type II/Complete HB. Last echo in 2020 showed preserved EF. (more content not included)... [facility] HP ----- ----- Attestation signed by Suzi Daly MD at 09/10/2022 3:28 PM The patient was evaluated with the resident Jose Alejandro I agree with the findings as described with the following additions or corrections: Currently on Dopamine drip awaiting pacemaker placement tomorrow. Critical Care services were required for the patient due to critical condition: 1. Heart block: Mobitz type II/third-degree HB 2. CKD 3. Electrolytes imbalance: Hyponatremia, hypomagnesemia 4. History of diastolic heart dysfunction grade 2 in year 2020 I personally provided direct critical care services consisting of: 1. Heart rate control with dopamine 2. Correction of electrolytes abnormalities 3. Coordination of care with the cardiology service Critical Care minutes were 35, which excludes time performing separately billed procedures, updating family, and teaching. ----- Adult ICU History & Physical Patient - Trisha Parish Age - 77 y.o. - 1945 [id number] Date of Admission - 09/10/2022 11:01 AM Chief Complaint Generalized weakness History of Present Illness Trisha Parish is a 77 y.o. female with a past medical history significant for atrial fibrillation status post maze and left atrial appendage clip, coronary artery disease status post CABG, hypertension, stroke who presented with generalized weakness to [facility]. She presented with 2-day history of exertional shortness of breath and weakness with intermittent palpitations. She stated that her legs felt heavy. She denied any recent changes of medication and illness. Patient states that she does take Plavix daily. She denies any use of anticoagulation. At [facility], EKG demonstarted a 2:1 AV block with prolonged TN interval 266. Chest x-ray demonstrated possible trace bilateral pleural effusions with interstitial prominence suggestive of edema. Labs were significant for creatinine 1.95, BUN 51, albumin 3.0, hemoglobin 11.2, MCV 92.8, proBNP 10,982, troponin 79.4, PT 12.6, INR 1.2. Patient was started on dopamine infusion. EKG after being started on dopamine infusion was significant for sthird-degree heart block with T wave inversions in lead III, aVR with heart rate 59. [facility] by [facility]. On my evaluation, patient denied chest pain shortness of breath, lightheadedness, dizziness. She did state that she continued to feel weak. Patient arrived while on dopamine infusion. However, heart rate was noted to be in the 30s to 40s. PMH: Patient has a past medical history of A-fib ([facility]), Cancer ([facility]), Coronary artery disease, Hypertension, Myocardial infarct ([facility]), and Stroke ([facility]). PSH: Patient has a past surgical history that includes Breast surgery; Hysterectomy; Cholecystectomy; and Coronary artery bypass graft. SH: Patient reports that she has never smoked. She has never used smokeless tobacco. She reports that she does not drink alcohol and does not use drugs. Alc/Tobacco/Drug: Patient reports no history of alcohol use. reports that she has never smoked. She has never used smokeless tobacco. reports no history of drug use. Medications: Patient Current Facility-Administered Medications: Insert peripheral IV, , , Once AND Saline lock IV, , , Once AND sodium chloride flush 10 mL, 10 mL, intravenous, q8h PRN, Marcela Blount MD Allergies: Patient Demerol [meperidine] Family history: Patient family history is not on file. Review of Systems: Review of Systems Constitutional: Positive for fatigue. Negative for diaphoresis. Respiratory: Negative for shortness of breath. Cardiovascular: Positive for palpitations. Negative for chest pain. Gastrointestinal: Negative for diarrhea. Neurological: Negative for dizziness, facial asymmetry, speech difficulty and light-headedness. Psychiatric/Behavioral: Negative for behavioral problems and confusion. Physical Exam Ht Readings from Last 1 Encounters: 02/07/22 1.626 m (5' 4 ) Wt Readings from Last 1 Encounters: 02/07/22 84.8 kg (187 lb) pulse is 37 (abnormal). Her respiration is 15 and oxygen saturation is 98%. No intake or output data in the 24 hours ending 09/10/22 1116 Respiratory Source: @RESPSOURCE@ General: Patient is alert and oriented x3, not in acute distress. HEENT: Atraumatic, normocephalic Neck: Supple neck. Respiratory: Clear breathing sound bilaterally, no wheezing no crackles. Heart: Regular rhythm, murmur Neurology: Can move all extremities, no focal deficit. Abdomen: Soft, not distended Extremities: No cyanosis, no edema. Skin: Warm and dry. Labs/Imaging This SmartLink shows lab results for visits on the day of current visit & previous visits. It will accept two parameters, by commas, which specify (more content not included)... Normal [facility] IRON AND TIBCon 09-10-2022 IRON (UG/DL) IN SER/PLAS 27 ug/dL Low 50-212 [facility] Comment on above: Performed By: #### L [id number] #### [facility] ([facility]AKER) [address] [place] [address] IRON BINDING CAPACITY (UG/DL) IN SER/PLAS 203 ug/dL Low 250-450 [facility] Comment on above: Performed By: #### L [id number] #### [facility] ([facility]) [address] [place] [address] IRON BINDING CAPACITY.UNSATURATE D (UG/DL) IN SER/PLAS 176.0 ug/dL Normal 155.0-355.0 [facility] Comment on above: Performed By: #### L [id number] #### [facility] ([facility]) [address] [place] [address] IRON SATURATION (%) IN SER/PLAS 13 % Low 20-50 [facility] Comment on above: Performed By: #### L [id number] #### [facility] ([facility]AKER) [address] [place] [address] MAGNESIUMon 09-10-2022 Magnesium [Mass/Vol] 1.6 mg/dL Low 1.9-2.7 [facility] Comment on above: Performed By: #### L [id number] ####[facility] ([facility])[address] [place] [address] PHOSPHORUSon 09-10-2022 Magnesium [Mass/Vol] 3.1 mg/dL Normal 2.5-5.0 [facility] Comment on above: Performed By: #### L [id number] ####[facility] ([facility])[address] [place] [address] POCT GLUCOSE METER UNSOLICIT ED RESULTSon 09-10-2022 Glucose [Mass/Vol] 152 mg/dL High 70-105 [facility] Comment on above: Result Comment: chito mc Performed By: #### L [id number] #### [facility] ([facility]) [address] [place] [address] Glucose [Mass/Vol] 151 mg/dL High 70-105 [facility] Comment on above: Result Comment: kyleigh haider Performed By: #### L [id number] #### [facility] ([facility]) [address] [place] [address] PROF 14(COMP METB)on 023 Albumin [Mass/Vol] 3.0 g/dL Critically low 3.4-5.0 [facility] Comment on above: Performed By: #### R ENAL #### [facility] [address] [address] [address] Madisyn Bentley Albumin/Globulin [Mass ratio] 0.8 {ratio} Normal [facility] Comment on above: Performed By: #### R ENAL #### [facility] [address] [address] [address] Madisyn Bentley ALP [Catalytic activity/Vol] 113 U/L Normal 46-116 [facility] Comment on above: Performed By: #### R ENAL #### [facility] [address] [address] [address] Madisyn Bentley ALT [Catalytic activity/Vol] 15 U/L Normal 14-59 [facility] Comment on above: Performed By: #### R ENAL #### [facility] [address] [place] [address] Dr. Madisyn Bentley Anion gap [Moles/Vol] 16.4 mmol/L Normal [facility] Comment on above: Performed By: #### R ENAL #### [facility] [address] [address] [address] Madisyn Bentley AST [Catalytic activity/Vol] 15 U/L Normal 15-37 [facility] Comment on above: Performed By: #### R ENAL #### [facility] [address] [place] [address] Dr. Madisyn Bentley Bilirubin [Mass/Vol] 0.6 mg/dL Normal 0.2-1.0 [facility] Comment on above: Performed By: #### R ENAL #### [facility] [address] [place] [address] Dr. Madisyn Bentley Calcium [Mass/Vol] 8.6 mg/dL Normal 8.5-10.1 [facility] Comment on above: Performed By: #### R ENAL #### [facility] [address] [place] [address] Dr. Madisyn Bentley Chloride [Moles/Vol] 102 mmol/L Normal 98-107 [facility] Comment on above: Performed By: #### R ENAL #### [facility] [address] [place] [address] Dr. Madisyn Bentley CO2 [Moles/Vol] 18.9 mmol/L Critically low 21.0-32.0 [facility] Comment on above: Performed By: #### R ENAL #### [facility] [address] [place] [address] Dr. Madisyn Bentley Creatinine [Mass/Vol] 1.95 mg/dL Critically high 0.55-1.02 [facility] Comment on above: Performed By: #### R ENAL #### [facility] [address] [address] [address] Madisyn Bentley EGFR-AF SWISS 30 mL/min/1.73m2 Critically low >=60 [facility] Comment on above: Performed By: #### R ENAL #### [facility] [address] [address] [address] Madisyn Bentley EGFR-NON AF SWISS 25 mL/min/1.73m2 Critically low >=60 [facility] Comment on above: Performed By: #### R ENAL #### [facility] [address] [address] [address] Madisyn Bentley Globulin (S) [Mass/Vol] 3.7 g/dL Normal [facility] Comment on above: Performed By: #### R ENAL #### [facility] [address] [place] [address] Dr. Madisyn Bentley Glucose [Mass/Vol] 190 mg/dL Critically high 74-106 [facility] Comment on above: Performed By: #### R ENAL #### [facility] [address] [address] [address] Madisyn Bentley Potassium [Moles/Vol] 4.3 mmol/L Normal 3.5-5.1 [facility] Comment on above: Performed By: #### R ENAL #### [facility] [address] [place] [address] Dr. Madisyn Bentley Protein [Mass/Vol] 6.7 g/dL Normal 6.4-8.2 [facility] Comment on above: Performed By: #### R ENAL #### [facility] [address] [address] [address] Madisyn Bentley Sodium [Moles/Vol] 133 mmol/L Critically low 136-145 [facility] Comment on above: Performed By: #### R ENAL #### [facility] [address] [address] [address] Madisyn Bentley Urea nitrogen [Mass/Vol] 51.0 mg/dL Critically high 7.0-18.0 [facility] Comment on above: Performed By: #### R ENAL #### [facility] [address] [place] [address] Dr. Madisyn Bentley Urea nitrogen/Creatinine [Mass ratio] 26.2 mg/mg Normal [facility] Comment on above: Performed By: #### R ENAL #### [facility] [address] [place] [address] Dr. Madisyn Bentley PROTIMEon 09-10-2022 INR Coag (PPP) [Relative time] 1.20 {INR} Normal [facility] Comment on above: Performed By: #### P T, PTT #### [facility] [address] [place] [address] Dr. Madisyn Bentley INR GUIDELINES SEE BELOW Normal [facility] Comment on above: Result Comment: ROMY RED INR: 2.0 - 3.0 CONDITIONS NOT LISTED BELOW 2.5 - 3.5 FOR PROSTHETIC HEART VALVE REPLACEMENT 2.5 - 3.5 RECURRENT THROMBOSIS Performed By: #### P T, PTT #### [facility] [address] [place] [address] Dr. Madisyn Bentley PT Coag (PPP) [Time] 12.6 s Critically high 9.0-11.6 [facility] Comment on above: Performed By: #### P T, PTT #### [facility] [address] [place] [address] Dr. Madisyn Bentley PROTIME-INRon 09-10-2022 INR IN PPP BY COAGULATION ASSAY 1.36 High 0.90-1.10 [facility] Comment on above: Result Comment: ACCC P RECOMMENDED INR FOR WARFARIN THERAPY CONDITION INR PROPHYLAXIS OF VENOUS THROMBOSIS 2-3 (HIGH-RISK SURGERY) TREATMENT OF VENOUS THROMBOSIS 2-3 TREATMENT OF PULMONARY EMBOLISM 2-3 PREVENTION OF SYSTEMIC EMBOLISM: 2-3 ACUTE MYOCARDIAL INFARCTION TISSUE HEART VALVES VALVULAR HEART DISEASE ATRIAL FIBRILLATION RECURRENT SYSTEMIC EMBOLISM MECHANICAL HEART VALVE 2.5-3.5 FROM: ORAL ANTICOAGULANTS. MECHANISM OF ACTION, CLINICAL EFFECTIVENESS, AND OPTIMAL THERAPEUTIC RANGE. CHEST 1995;108:231S-246S. Performed By: #### L [id number] ####[facility] ([facility])[address] [place] [address] PROTHROMBIN TIME (PT) IN PPP BY COAGULATION ASSAY 16.6 Seconds High 12.3-14.8 [facility] Comment on above: Performed By: #### L [id number] ####[facility] ([facility])[address] [place] [address] PTTon 09-10-2022 aPTT Coag (Bld) [Time] 36.0 s Normal 22.3-36.2 [facility] Comment on above: Performed By: #### P T, PTT #### [facility] [address] [place] [address] Dr. Madisyn Bentley T4, FREEon 09-10-2022 THYROXINE (T4) FREE (NG/DL) IN SER/PLAS 1.36 ng/dL Normal 0.71-1.[address] [facility] Comment on above: Performed By: #### L [id number] ####[facility] ([facility])[address] [place] [address] TROPONIN Ion 09-10-2022 Troponin I.cardiac [Mass/Vol] 0.03 ng/mL Normal 0.00-0.04 [facility] Comment on above: Performed By: #### L [id number] #### [facility] ([facility]) [address] [place] [address] TROPONIN, HIGH SENSITIVITYon 09-10-2022 HSTROP 79.4 pg/mL Critically high 4.0-51.3 [facility] Comment on above: Result Comment: CUT- OFF POINTS HAVE BEEN ESTABLISHED BASED ON THE FOURTH UNIVERSAL DEFINITIONS OF MYOCARDIAL INFARCTION. THE UPPER REFERENCE LIMIT (URL) OF TROPONIN, DEFINED THE 99TH PERCENTILE OF cTnI DISTRIBUTION IN A REFERENCE POPULATION, HAS BEEN CONFIRMED THE DECISION THRESHOLD FOR CA DIAGNOSIS. Performed By: #### B PALEONTOLOGY TEACHER, HSTROPN #### [facility] [address] [address] [address] Madisyn Bentley TSH3 REFLEX TO FT4on 023 THYROTROPIN (MIU/L) IN SER/PLAS BY DETECTION LIMIT <= 0.05 MIU/L 6.40 mIU/L High 0.34-5.60 [facility] Comment on above: Performed By: #### L [id number] #### [facility] ([facility]) [address] [place] [address] VITAMIN B12on 09-10-2022 Cobalamin (Vitamin B12) [Mass/Vol] 177 pg/mL Low 180-914 [facility] Comment on above: Result Comment: REFE RENCE RANGES: 180-914 pg/mL Normal 145-179 pg/mL Indeterminate <145 pg/mL Deficient Performed By: #### L [id number] #### [facility] ([facility]) [address] [place] [address] XR CHEST 1 Von 09-10-2022 XR CHEST 1 V EXAM: XR CHEST 1 V HISTORY: SHORTNESS OF BREATH COMPARISON: None. TECHNIQUE: One view of the chest was obtained. FINDINGS: There are postsurgical changes of the chest with median sternotomy wires in place. The cardiac silhouette is normal in size. There is interstitial prominence with medial right basilar opacities. There is no significant pneumothorax. There are possible trace bilateral pleural effusions. No acute osseous abnormality is seen. IMPRESSION: 1. Medial right basilar opacities which could represent aspiration changes and/or pneumonia. 2. Possible trace bilateral pleural effusions with interstitial prominence suggestive of edema. Electronically authenticated by: Kelli FLANNERY Date: 2022-09-10 04:58 Normal [facility] GLYCOHEMOGLOBIN A1Con 2021 ADA RECOMMENDATION SEE BELOW Normal [facility] Comment on above: Result Comment: ADA RECOMMENDED LIMIT 4.0 - 6.0 ADA THERAPEUTIC TARGET < 7.0 ACTION SUGGESTED > 7.0 Performed By: #### P T, PTT #### [facility] [address] [address] [address] Madisyn Bentley Glucose [Mass/Vol] 186 mg/dL Normal [facility] Comment on above: Performed By: #### P T, PTT #### [facility] [address] [place], [place] [address] Dr. Madisyn Bentley HbA1c (Bld) [Mass fraction] 8.1 % Critically high 4.5-6.2 [facility] Comment on above: Performed By: #### P T, PTT #### [facility] [address] [place], [place] [address] Dr. Madisyn Bentley US THYROIDon 05-24-2022 US THYROID EXAMINATION: US THYR OID HISTORY: Non-toxic uninodular goiter COMPARISON: Ultrasound thyroid 04/20/2021 FINDINGS: RIGHT LOBE: Heterogeneous echotexture. Stable 0.7 cm TR 4 nodule within mid lobe. Stable 1.8 cm TR 3 and 1.9 cm TR 3 nodules within the right mid and inferior lobes respectively. Lobe size: 5.3 x 2.4 x 1.9 cm. LEFT LOBE: Heterogeneous echotexture. Stable 0.8 cm TR 3 within superior pole. Stable 0.2 mm TR 4 nodule within mid pole. Lobe size: 3.8 x 1.6 x 1.3 cm ISTHMUS: Heterogeneous echotexture. Thickness: 4 mm IMPRESSION: 1. Stable bilateral thyroid nodules. 2. Several hypoechoic masses, with some appearing lobulated within the lateral right neck the level of carotid artery bifurcation (level 2) which may represent reactive lymph nodes; largest is 2.0 x 0.9 x 0.7 cm. Consider follow-up ultrasound evaluation of suspected lymph nodes in 2 and 3 months. TR4 (moderately suspicious): If > 1.0 cm Follow-up ultrasound in 1, 2, 3, and 5 years. If > 1.5 cm fine needle aspiration (FNA). TR3 (mildly suspicious): > 1.5 cm, follow-up ultrasound in 1, 3, and 5 years. > 2.5 cm, fine needle aspiration. Electronically authenticated by: DIAMOND HILARIO Date: 2022-05-24 12:24 Normal [facility] MG MAMM SCREEN RT 3D CADon 1 MG MAMM SCREEN RT 3D CAD Patient: TRISHA PARISH Exam Date: 05/23/2022 : 1945 Gender:F Ordering : DR SANYA TINEO M.D. Admission #: [id number] Family : Order #: [id number] CLICK HERE TO VIEW EXAM RADIOLOGY REPORT PROCEDURE: MAMMOGRAM SCREENING RIGHT 3D CAD COMPARISON: MG MAMM SCREEN RT 3D CAD, 03/23/2021. MG MAMM RT DIAG W CAD, 05/16/2019. INDICATIONS: Screening mammography Calculator Name NCI Breast Cancer Risk Assessment Tool 5 Year Breast Cancer Risk n/a% Lifetime Breast Cancer Risk n/a% Personal Breast Cancer Yes, Left breast cancer 2009 Personal Ovarian Cancer No Treatments Left mastectomy and chemotherapy Family Cancers None LOCATION: [facility] BREAST COMPOSITION: Scattered areas fibroglandular density. FINDINGS: DIAGNOSTIC CATEGORY 2--BENIGN FINDING: RIGHT BREAST: No significant suspicious finding. Scattered benign-appearing calcifications are present. No significant change has occurred. RECOMMENDATIONS: ROUTINE MAMMOGRAM AND CLINICAL EVALUATION IN 12 MONTHS. PLEASE NOTE: A NORMAL MAMMOGRAM DOES NOT EXCLUDE THE POSSIBILITY OF BREAST CANCER. A CLINICALLY SUSPICIOUS PALPABLE LUMP SHOULD BE BIOPSIED. Dictated by: Diamond Hilario M.D. on 05/23/2022 at 10:35 Approved by: Diamond Hilario M.D. on 05/23/2022 at 10:38 Normal [facility] XR DEXA BONE DENSITYon 05-23 XR DEXA BONE DENSITY EXAMINATION: XR DEXA BONE DENSITY, 05/23/2022 8:54 AM EDT HISTORY: Menopause present COMPARISON: DEXA bone densitometry 07/09/2014 TECHNIQUE: Dual-energy X-ray absorptiometry (DEXA) bone density study performed for the axial skeleton. FINDINGS: SPINE ANALYSIS: Average bone mineral density is 1.446 g/cm2. T-score (standard deviation relative to young adult mean): 2.2 . -4.1% change since prior study. HIP ANALYSIS: Lowest bone mineral density is within the left femoral trochanter, 0.589 g/cm2. T-score (standard deviation relative to young adult mean): -2.3 . +5.5% change since prior study. IMPRESSION: World [employer] Organization Classification: Osteopenia - Moderate Fracture Risk Electronically authenticated by: DIAMOND HILARIO Date: 2022-05-23 19:25 Normal [facility] CBC AUTO DIFFon 05-16-2022 BASO # 0.0 103/ul Normal 0.0-0.1 [facility] Comment on above: Performed By: #### C BC #### [facility] [address] [place] [address] Dr. Madisyn Bentley Basophils/100 WBC (Bld) 0.4 % Normal 0.2-2.0 [facility] Comment on above: Performed By: #### C BC #### [facility] [address] [place] [address] Dr. Madisyn Bentley EO # 0.3 103/ul Normal 0.0-0.7 [facility] Comment on above: Performed By: #### C BC #### [facility] [address] [place] [address] Dr. Madisyn Bentley Eosinophils/100 WBC (Bld) 4.5 % Normal 0.9-7.0 [facility] Comment on above: Performed By: #### C BC #### [facility] [address] [place] [address] Dr. Madisyn Bentley Erythrocyte distribution width (RBC) [Ratio] 13.1 % Normal 11.0-15.0 [facility] Comment on above: Performed By: #### C BC #### [facility] [address] [place] [address] Dr. Madisyn Bentley Hematocrit (Bld) [Volume fraction] 37.9 % Normal 36.0-48.0 [facility] Comment on above: Performed By: #### C BC #### [facility] [address] [place] [address] Dr. Madisyn Bentley Hemoglobin (Bld) [Mass/Vol] 12.4 g/dL Normal 12.0-16.0 [facility] Comment on above: Performed By: #### C BC #### [facility] [address] [place] [address] Dr. Madisyn Bentley IG # 0.02 10e3/ul Normal 0.00-0.03 [facility] Comment on above: Performed By: #### C BC #### [facility] [address] [place] [address] Dr. Madisyn Bentley IG % 0.3 % Normal 0.0-0.5 [facility] Comment on above: Performed By: #### C BC #### [facility] [address] [place] [address] Dr. Madisyn Bentley LYMPH # 1.6 103/ul Normal 1.2-3.8 [facility] Comment on above: Performed By: #### C BC #### [facility] [address] [place] [address] Dr. Madisyn Bentley Lymphocytes/100 WBC (Bld) 22.0 % Normal 20.5-60.0 [facility] Comment on above: Performed By: #### C BC #### [facility] [address] [place] [address] Dr. Madisyn Bentley MANUAL DIFF REQ NO Normal [facility] Comment on above: Performed By: #### C BC #### [facility] [address] [place] [address] Dr. Madisyn Bentley MCH (RBC) [Entitic mass] 29.4 pg Normal 26.7-34.0 [facility] Comment on above: Performed By: #### C BC #### [facility] [address] [place] [address] Dr. Madisyn Bentley MCHC (RBC) [Mass/Vol] 32.7 g/dL Normal 29.9-35.2 [facility] Comment on above: Performed By: #### C BC #### [facility] [address] [place] [address] Dr. Madisyn Bentley MCV (RBC) [Entitic vol] 89.8 fL Normal 81.0-99.0 [facility] Comment on above: Performed By: #### C BC #### [facility] [address] [place] [address] Dr. Madisyn Bentley MONO # 0.5 103/ul Normal 0.3-0.8 [facility] Comment on above: Performed By: #### C BC #### [facility] [address] [place] [address] Dr. Madisyn Bentley Monocytes/100 WBC (Bld) 7.3 % Normal 1.7-12.0 [facility] Comment on above: Performed By: #### C BC #### [facility] [address] [place] [address] Dr. Madisyn Bentley NEUT # 4.9 103/ul Normal 1.4-6.5 [facility] Comment on above: Performed By: #### C BC #### [facility] [address] [place] [address] Dr. Madisyn Bentley Neutrophils/100 WBC (Bld) 65.5 % Normal 43.0-75.0 [facility] Comment on above: Performed By: #### C BC #### [facility] [address] [place] [address] Dr. Madisyn Bentley Platelet mean volume (Bld) [Entitic vol] 12.1 fL Normal 9.5-13.5 [facility] Comment on above: Performed By: #### C BC #### [facility] [address] [place] [address] Dr. Madisyn Bentley PLT 171 103/ul Normal 150-450 [facility] Comment on above: Performed By: #### C BC #### [facility] [address] [place] [address] Dr. Madisyn Bentley RBC 4.22 106/ul Normal 4.20-5.40 [facility] Comment on above: Performed By: #### C BC #### [facility] [address] [place] [address] Dr. Madisyn Bentley WBC 7.4 103/ul Normal 4.0-11.0 [facility] Comment on above: Performed By: #### C BC #### [facility] [address] [place] [address] Dr. Madisyn Bentley LIPID PROFILEon 05-16-2022 CHOL-HDL RATIO NORM SEE BELOW Normal [facility] Comment on above: Result Comment: 3.3 - 4.4 LOW RISK 4.4 - 7.1 AVERAGE RISK 7.1 - 11.0 MODERATE RISK >11.0 HIGH RISK Performed By: #### P T, PTT #### [facility] [address] [place] [address] Dr. Madisyn Bentley Cholesterol [Mass/Vol] 132 mg/dL Normal <=200 [facility] Comment on above: Performed By: #### P T, PTT #### [facility] [address] [address] [address] Madisyn Bentley Cholesterol in HDL [Mass/Vol] 44 mg/dL Normal 40-60 [facility] Comment on above: Performed By: #### P T, PTT #### [facility] [address] [address] [address] Madisyn Bentley Cholesterol in LDL [Mass/Vol] 59.6 mg/dL Normal [facility] Comment on above: Performed By: #### P T, PTT #### [facility] [address] [address] [address] Madisyn Bentley Cholesterol.total/C holesterol in HDL [Mass ratio] 3.0 {ratio} Normal [facility] Comment on above: Performed By: #### P T, PTT #### [facility] [address] [address] [address] Madisyn Bentley HDL NORMAL > or = 60 mg/dl - LO W CARDIOVASCULAR RISK <40 mg/dl - HIGH CARDIOVASCULAR RISK Normal [facility] Comment on above: Performed By: #### P T, PTT #### [facility] [address] [address] [address] Madisyn Bentley LDL CALC NORMAL SEE BELOW Normal [facility] Comment on above: Result Comment: <100 mg/dl OPTIMAL 100 - 129 mg/dl NEAR OR ABOVE OPTIMAL 130 - 159 mg/dl BORDERLINE HIGH 160 - 189 mg/dl HIGH >190 mg/dl VERY HIGH Performed By: #### P T, PTT #### [facility] [address] [address] [address] Madisyn Bentley Triglyceride [Mass/Vol] 142 mg/dL Normal <=150 [facility] Comment on above: Performed By: #### P T, PTT #### [facility] [address] [address] [address] Madisyn Bentley VLDL CALC 28.4 mg/dL Normal [facility] Comment on above: Performed By: #### P T, PTT #### [facility] [address] [address] [address] Madisyn Bentley PROF 14(COMP METB)on 022 Albumin [Mass/Vol] 3.8 g/dL Normal 3.4-5.0 [facility] Comment on above: Performed By: #### P T, PTT #### [facility] [address] [address] [address] Madisyn Bentley Albumin/Globulin [Mass ratio] 1.1 {ratio} Normal [facility] Comment on above: Performed By: #### P T, PTT #### [facility] [address] [address] [address] Madisyn Bentley ALP [Catalytic activity/Vol] 158 U/L Critically high 46-116 [facility] Comment on above: Performed By: #### P T, PTT #### [facility] [address] [place] [address] Dr. Madisyn Bentley ALT [Catalytic activity/Vol] 24 U/L Normal 14-59 [facility] Comment on above: Performed By: #### P T, PTT #### [facility] [address] [address] [address] Madisyn Bentley Anion gap [Moles/Vol] 14.1 mmol/L Normal [facility] Comment on above: Performed By: #### P T, PTT #### [facility] [address] [address] [address] Madisyn Bentley AST [Catalytic activity/Vol] 12 U/L Critically low 15-37 [facility] Comment on above: Performed By: #### P T, PTT #### [facility] [address] [address] [address] Madisyn Bentley Bilirubin [Mass/Vol] 0.7 mg/dL Normal 0.2-1.0 [facility] Comment on above: Performed By: #### P T, PTT #### [facility] [address] [address] [address] Madisyn Bentley Calcium [Mass/Vol] 8.9 mg/dL Normal 8.5-10.1 [facility] Comment on above: Performed By: #### P T, PTT #### [facility] [address] [address] [address] Madisyn Bentley Chloride [Moles/Vol] 105 mmol/L Normal 98-107 [facility] Comment on above: Performed By: #### P T, PTT #### [facility] [address] [address] [address] Madisyn Bentley CO2 [Moles/Vol] 23.4 mmol/L Normal 21.0-32.0 [facility] Comment on above: Performed By: #### P T, PTT #### [facility] [address] [address] [address] Madisyn Bentley Creatinine [Mass/Vol] 1.64 mg/dL Critically high 0.55-1.02 [facility] Comment on above: Performed By: #### P T, PTT #### [facility] [address] [address] [address] Madisyn Bentley EGFR-AF SWISS 37 mL/min/1.73m2 Critically low >=60 [facility] Comment on above: Performed By: #### P T, PTT #### [facility] [address] [address] [address] Madisyn Bentley EGFR-NON AF SWISS 30 mL/min/1.73m2 Critically low >=60 [facility] Comment on above: Performed By: #### P T, PTT #### [facility] [address] [address] [address] Madisyn Bentley Globulin (S) [Mass/Vol] 3.5 g/dL Normal [facility] Comment on above: Performed By: #### P T, PTT #### [facility] [address] [address] [address] Madisyn Bentley Glucose [Mass/Vol] 222 mg/dL Critically high 74-106 [facility] Comment on above: Performed By: #### P T, PTT #### [facility] [address] [address] [address] Madisyn Bentley Potassium [Moles/Vol] 4.5 mmol/L Normal 3.5-5.1 [facility] Comment on above: Performed By: #### P T, PTT #### [facility] [address] [place] [address] Dr. Madisyn Bentley Protein [Mass/Vol] 7.3 g/dL Normal 6.4-8.2 [facility] Comment on above: Performed By: #### P T, PTT #### [facility] [address] [place] [address] Dr. Madisyn Bentley Sodium [Moles/Vol] 138 mmol/L Normal 136-145 [facility] Comment on above: Performed By: #### P T, PTT #### [facility] [address] [place] [address] Dr. Madisyn Bentley Urea nitrogen [Mass/Vol] 35.0 mg/dL Critically high 7.0-18.0 [facility] Comment on above: Performed By: #### P T, PTT #### [facility] [address] [place] [address] Dr. Madisyn Bentley Urea nitrogen/Creatinine [Mass ratio] 21.3 mg/mg Normal [facility] Comment on above: Performed By: #### P T, PTT #### [facility] [address] [place] [address] Dr. Madisyn Bentley RENAL FUNCTION PANELon 04-07 Albumin [Mass/Vol] 3.5 g/dL Normal 3.4-5.0 [facility] Comment on above: Performed By: #### R ENAL #### [facility] [address] [place] [address] Dr. Madisyn Bentley Calcium [Mass/Vol] 8.1 mg/dL Critically low 8.5-10.1 [facility] Comment on above: Performed By: #### R ENAL #### [facility] [address] [place] [address] Dr. Madisyn Bentley Chloride [Moles/Vol] 110 mmol/L Critically high 98-107 [facility] Comment on above: Performed By: #### R ENAL #### [facility] [address] [place] [address] Dr. Madisyn Bentley CO2 [Moles/Vol] 20.2 mmol/L Critically low 21.0-32.0 [facility] Comment on above: Performed By: #### R ENAL #### [facility] [address] [address] [address] Madisyn Bentley Creatinine [Mass/Vol] 1.89 mg/dL Critically high 0.55-1.02 [facility] Comment on above: Performed By: #### R ENAL #### [facility] [address] [address] [address] Madisyn Bentley EGFR-AF SWISS 31 mL/min/1.73m2 Critically low >=60 [facility] Comment on above: Performed By: #### R ENAL #### [facility] [address] [place] [address] Dr. Madisyn Bentley EGFR-NON AF SWISS 26 mL/min/1.73m2 Critically low >=60 [facility] Comment on above: Performed By: #### R ENAL #### [facility] [address] [place] [address] Dr. Madisyn Bentley Glucose [Mass/Vol] 149 mg/dL Critically high 74-106 [facility] Comment on above: Performed By: #### R ENAL #### [facility] [address] [place] [address] Dr. Madisyn Bentley Phosphate [Mass/Vol] 3.4 mg/dL Normal 2.6-4.7 [facility] Comment on above: Performed By: #### R ENAL #### [facility] [address] [place] [address] Dr. Madisyn Bentley Potassium [Moles/Vol] 4.5 mmol/L Normal 3.5-5.1 [facility] Comment on above: Performed By: #### R ENAL #### [facility] [address] [place] [address] Dr. Madisyn Bentley Sodium [Moles/Vol] 141 mmol/L Normal 136-145 [facility] Comment on above: Performed By: #### R ENAL #### [facility] [address] [place] [address] Dr. Madisyn Bentley Urea nitrogen [Mass/Vol] 34.0 mg/dL Critically high 7.0-18.0 [facility] Comment on above: Performed By: #### R ENAL #### [facility] [address] [place] [address] Dr. Madisyn Bentley UA RANDOMon 04-07-2022 Bilirubin Ql (U) Negative Normal NEGATIVE [facility] Comment on above: Performed By: #### U A #### [facility] [address] [place] [address] Dr. Madisyn Bentley Clarity (U) CLEAR Normal CLEAR [facility] Comment on above: Performed By: #### U A #### [facility] [address] [place] [address] Dr. Madisyn Bentley Color (U) LT. YELLOW Normal YELLOW [facility] Comment on above: Performed By: #### U A #### [facility] [address] [place] [address] Dr. Madisyn Bentley Glucose Ql (U) Negative Normal NEGATIVE [facility] Comment on above: Performed By: #### U A #### [facility] [address] [place] [address] Dr. Madisyn Bentley Hemoglobin Ql (U) Negative Normal NEGATIVE [facility] Comment on above: Performed By: #### U A #### [facility] [address] [place] [address] Dr. Madisyn Bentley Ketones Ql (U) Negative Normal NEGATIVE [facility] Comment on above: Performed By: #### U A #### [facility] [address] [place] [address] Dr. Madisyn Bentley LEUKOCYTES TRACE Abnormal NEGATIVE [facility] Comment on above: Performed By: #### U A #### [facility] [address] [place] [address] Dr. Madisyn Bentley Nitrite Ql (U) Negative Normal NEGATIVE [facility] Comment on above: Performed By: #### U A #### [facility] [address] [place] [address] Dr. Madisyn Bentley pH (U) 5.5 [pH] Normal 5-9 [facility] Comment on above: Performed By: #### U A #### [facility] [address] [place] [address] Dr. Madisyn Bentley SPEC GRAVITY 1.020 Normal 1.005-<=1.[address] [place] [address] Comment on above: Performed By: #### U A #### [facility] [address] [place] [address] Dr. Madisyn Bentley UA PROTEIN Negative Normal NEGATIVE/ TRACE [facility] Comment on above: Performed By: #### U A #### [facility] [address] [place] [address] Dr. Madisyn Bentley Urobilinogen Qn (U) 0.2 {Luis Eduardo'U}/dL Normal 0.2 - 1. 0 [facility] Comment on above: Performed By: #### U A #### [facility] [address] [place] [address] Dr. Madisyn Bentley URINE T PROTEIN CREAT RATIOo n 04-07-2022 Protein (U) [Mass/Vol] 25.7 mg/dL Critically high <=12.0 [facility] Comment on above: Performed By: #### P T, PTT #### [facility] [address] [place] [address] Dr. Madisyn Bentley UR PROT CREAT RAT 0.29 Normal [facility] Comment on above: Performed By: #### P T, PTT #### [facility] [address] [place] [address] Dr. Madisyn Bentley URINE CREAT 89.48 mg/dL Normal 20.00-300.00 [facility] Comment on above: Performed By: #### P T, PTT #### [facility] [address] [place] [address] Dr. Madisyn Bentley RENAL FUNCTION PANELon 11-25 Albumin [Mass/Vol] 3.7 g/dL Normal 3.4-5.0 [facility] Comment on above: Performed By: #### R ENAL #### [facility] [address] [place] [address] Dr. Madisyn Bentley Calcium [Mass/Vol] 8.6 mg/dL Normal 8.5-10.1 [facility] Comment on above: Performed By: #### R ENAL #### [facility] [address] [address] [address] Madisyn Bentley Chloride [Moles/Vol] 107 mmol/L Normal 98-107 [facility] Comment on above: Performed By: #### R ENAL #### [facility] [address] [address] [address] Madisyn Bentley CO2 [Moles/Vol] 23.3 mmol/L Normal 22.0-30.0 [facility] Comment on above: Performed By: #### R ENAL #### [facility] [address] [place] [address] Dr. Madisyn Bentley Creatinine [Mass/Vol] 1.56 mg/dL Critically high 0.55-1.02 [facility] Comment on above: Performed By: #### R ENAL #### [facility] [address] [address] [address] Madisyn Bentley EGFR-AF SWISS 39 mL/min/1.73m2 Critically low >=60 [facility] Comment on above: Performed By: #### R ENAL #### [facility] [address] [place] [address] Dr. Madisyn Bentley EGFR-NON AF SWISS 32 mL/min/1.73m2 Critically low >=60 [facility] Comment on above: Performed By: #### R ENAL #### [facility] [address] [address] [address] Madisyn Bentley Glucose [Mass/Vol] 106 mg/dL Normal 74-106 [facility] Comment on above: Performed By: #### R ENAL #### [facility] [address] [place] [address] Dr. Madisyn Bentley Phosphate [Mass/Vol] 3.8 mg/dL Normal 2.5-4.5 [facility] Comment on above: Performed By: #### R ENAL #### [facility] [address] [place] [address] Dr. Madisyn Bentley Potassium [Moles/Vol] 4.5 mmol/L Normal 3.4-5.0 [facility] Comment on above: Performed By: #### R ENAL #### [facility] [address] [address] [address] Madisyn Bentley Sodium [Moles/Vol] 141 mmol/L Normal 137-145 [facility] Comment on above: Performed By: #### R ENAL #### [facility] [address] [address] [address] Madisyn Bentley Urea nitrogen [Mass/Vol] 27.0 mg/dL Critically high 7.0-18.0 [facility] Comment on above: Performed By: #### R ENAL #### [facility] [address] [place] [address] Dr. Madisyn Bentley UA RANDOMon 11-25-2021 Bilirubin Ql (U) Negative Normal NEGATIVE [facility] Comment on above: Performed By: #### P T, PTT #### [facility] [address] [place] [address] Dr. Madisyn Bentley Clarity (U) CLEAR Normal CLEAR [facility] Comment on above: Performed By: #### P T, PTT #### [facility] [address] [place] [address] Dr. Madisyn Bentley Color (U) LT. YELLOW Normal YELLOW [facility] Comment on above: Performed By: #### P T, PTT #### [facility] [address] [place] [address] Dr. Madisyn Bentley Glucose Ql (U) Negative Normal NEGATIVE [facility] Comment on above: Performed By: #### P T, PTT #### [facility] [address] [place] [address] Dr. Madisyn Bentley Hemoglobin Ql (U) Negative Normal NEGATIVE [facility] Comment on above: Performed By: #### P T, PTT #### [facility] [address] [place] [address] Dr. Madisyn Bentley Ketones Ql (U) Negative Normal NEGATIVE [facility] Comment on above: Performed By: #### P T, PTT #### [facility] [address] [place] [address] Dr. Madisyn Bentley LEUKOCYTES Negative Normal NEGATIVE [facility] Comment on above: Performed By: #### P T, PTT #### [facility] [address] [place] [address] Dr. Madisyn Bentley Nitrite Ql (U) Negative Normal NEGATIVE [facility] Comment on above: Performed By: #### P T, PTT #### [facility] [address] [place] [address] Dr. Madisyn Bentley pH (U) 5.5 [pH] Normal 5-9 [facility] Comment on above: Performed By: #### P T, PTT #### [facility] [address] [place] [address] Dr. Madisyn Bentley SPEC GRAVITY 1.015 Normal 1.005-<=1.02 5 [facility] Comment on above: Performed By: #### P T, PTT #### [facility] [address] [place] [address] Dr. Madisyn Bentley UA PROTEIN Negative Normal NEGATIVE/ TRACE [facility] Comment on above: Performed By: #### P T, PTT #### [facility] [address] [place] [address] Dr. Madisyn Bentley Urobilinogen Qn (U) 0.2 {Luis Eduardo'U}/dL Normal 0.2 - 1. 0 [facility] Comment on above: Performed By: #### P T, PTT #### [facility] [address] [place] [address] Dr. Madisyn Bentley URINE T PROTEIN CREAT RATIOo n 11-25-2021 Protein (U) [Mass/Vol] 20.5 mg/dL Critically high <=12.0 [facility] Comment on above: Performed By: #### U RTPCR #### [facility] [address] [place] [address] Dr. Madisyn Bentley UR PROT CREAT RAT 0.25 Normal [facility] Comment on above: Performed By: #### U RTPCR #### [facility] [address] [place] [address] Dr. Madisyn Bentley URINE CREAT 81.12 mg/dL Normal 20.00-300.00 [facility] Comment on above: Performed By: #### U RTPCR #### [facility] [address] [place] [address] Dr. Madisyn Bentley CYTOLOGYon 06-21-2021 CYTOLOGY Specimen #: [id number] Submitting Physician: ABNER WHEELER MD SPECIMEN SUBMITTED A: DILUTED LEFT EYE, VITREOUS FINE NEEDLE ASPIRATE FINAL DIAGNOSIS A. DILUTED LEFT EYE, VITREOUS FINE NEEDLE ASPIRATE: Negative for malignant cells. Rare mature appearing lymphocytes and macrophages. Tracie Celis M.D. 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, [address] [place] [address]. CLIA Number: [id number] Normal [facility] Comment on above: Performed By: #### C #### See report for performing lab information. KACEYOVSPon 04-15-2018 CNOVS Visit (SP) Office (HEMACL) TRISHA PARISH ([id number]) 1945 FDate Time Provider Department04/15/18 2:15 PM ROXANN ONEAL During your visit today, we recorded the following information about you: Temperature Pulse Respiration Blood pressure 98.2 degrees 66/minute 16/minute 147/69 Weight Height 80.9 kg 1.626 mMINDY OLIVE ONEAL PA-C 04/15/2018 3:44 PM SignedPatient: Trisha Parish [facility] 1945 Attending Physician: Dr. Sadi Sotoate: April 15, 2018 Note Type: Progress NoteChief Complaint:History of left Breast cancer.HPI:This is a 73- year-old woman with a history of carcinoma of the left breastinitially diagnosed 12-02-08. She was treated with lumpectomy. This was aT1c, N1 tumor with margins less than 1 mm. One of four lymph nodes werepositive at the time of lymph node dissection. The tumor was ER/TN positive,HER-2 positve. Ultimately the patient had to move forward with left mastectomy? this was done in December 2008. A residual 3 mm tumor was found. Further lymphnode examination noted no further nodes. Ultimately her staging was T1c, N1mi. Her adjuvant therapy was Taxotere, carboplatin and Herceptin followed byHerceptin for one year completed in January of 2010. Her adjuvant hormonaltherapy was Arimidex, which she tolerated fairly well. She completed 5 years ofadjuvant hormonal therapy.Patient returns today in follow up. Had mammogram 03/2018 -BIRADS 2. No othernew complaints today. Denies changes on self breast examination.Past Medical History:Breast cancer as above, diabetes, hypertension, hyperlipidemia, history ofatrial fibrillation, anxiety, history of fibroids with hysterectomy andbilateral salpingo oophorectomy as above, history of cholecystectomy, historyof lipoma removed, chronic kidney disease, strokeCurrent Outpatient Prescriptions:atorvastati n (LIPITOR) 80 mg tablet Take 80 mg by mouth once daily. Disp: Rfl:carvedilol (COREG) 25 mg tablet Disp: Rfl:lisinopril (ZESTRIL, PRINIVIL) 20 mg tablet Take 20 mg by mouth once daily.Disp: Rfl:NIFEdipine XL (ADALAT CC, PROCARDIA XL) 60 mg 24 hr tablet Take 60 mg by mouthonce daily. Disp: Rfl:aspirin, enteric coated (ASPIRIN, ENTERIC COATED) 81 mg EC tablet Take 81 mg bymouth once daily. Disp: Rfl:ALPRAZolam (XANAX) 0.25 mg tablet Take 0.25 mg by mouth at bedtime as needed.Disp: Rfl:Cholecalciferol, Vitamin D3, (VITAMIN D-3) 2,000 unit cap Take 1 tablet bymouth once daily. Disp: Rfl:CLOPIDOGREL 75 mg tablet Take 75 mg by mouth once daily. Disp: Rfl:No current facility-administered medications for this visit.Allergies: LIPITORREVIEW OF SYSTEMS:CONSTITUTIONAL: Energy Stable no fevers chills sweats or unexplained weightlossHEENT:no recurrent sinus infections or feversCARDIOVASCULAR: No chest pain, no leg swellingPULM: No dyspnea, unexplained cough.GI: No dysphagia/odynophagia, problematic reflux, constipation, diarrhea,changes in stool habits, hematochezia, melena.: No new urinary complaints, including dysuria, gross hematuria or pyuria.Breast: No changes on self breast examinationSocial History:The patient is . She has two daughters, alive and well. She does notuse tobacco or alcohol.Family History:Negative. The closest relative that she has is a cousin who had breast cancer. She has no information however on her paternal side.PHYSICAL EXAMINATIONGeneral: Alert and oriented, no distress, pleasant and cooperative.Heart: Regular, normal S1 and S2, no murmurs, rubs, or gallopsLungs: Clear to auscultation bilaterally, no crackles or wheezesAbdomen: NT,ND no organomegalyExtremities: Feet/ankles without edema, posterior tibial pulses full andsymmetricalBreast left chest wall without nodules or masses, right breast without anytender areas or discrete nodules or massesLmyph: no cervical supraclavicular or axillary adenopathyNeuro: 2-12 intact, normal gaitBP 147/69 Pulse 66 Temp (Src) 98.2 (Oral) Resp 16 Ht 5' 4.016 (1.63m) Wt 178 lb 6.4 oz (80.9kg) SpO2 98% BMI 30.61 kg/(m2).03/2018 mammogram: negative, BIRADS 2Impression:This is a 73 year-old woman with a history of breast cancer, stage II (T1c,N1). She is status post adjuvant therapy with TCH followed by one year ofHerceptin. Adjuvant hormonal therapy was Arimidex. Has completed 5 years oftherapy. Would continue observation.Plan:History of Left Breast Cancer-continue observation-RV one year-repeat mammogram at one year--03/2019-patient to contact the office with questions or concernsJORDON SHAY-CReferring Provider: SADI WALLACE [[id number]]Allergies As of Date: 04/15/2018(No Known Allergies)Date Reviewed: 04/15/2018Reviewed by: Roxann Oneal - Fully AssessedReason for Visit: Breast Cancer [519] Cmt: follow upPrimary Visit Diagnosis:Malignant neoplasm of left breast in female, estrogen receptor positive, unspecified site of breast (HCC) [C50.912, Z17.0]Order(s):[facility] [[id number]] Order #: [id number] FUTUREDisposition: Return in about 1 year (around 04/15/2019).Follow-up and Disposition History RecordedPrescriptions as of 04/15/2018 Sig: ATORVASTATIN 80 MG TABLET Take 80 mg by mouth once tyson* CARVEDILOL 25 MG TABLET LISINOPRIL 20 MG TABLET Take 20 mg by mouth once tyson* NIFEDIPINE ER 60 MG TABLET,EX* Take 60 mg by mouth once tyson* ASPIRIN 81 MG TABLET,DELAYED * Take 81 mg by mouth once tyson* ALPRAZOLAM 0.25 MG TABLET Take 0.25 mg by mouth at bedt* CHOLECALCIFEROL (VITAMIN D3) * Take 1 tablet by mouth once d* CLOPIDOGREL 75 MG TABLET Take 75 mg by mouth once tyson*Problem List As Of Date 04/15/2018 Noted Resolved Breast CA [C50.919] INVALID FOR*Encounter Status:Closed by ROXANN ONEAL on 04/15/18 Normal [facility] PROGRESSon 04-15-2018 Protein mass conc HNO ID: [id number] thor: Roxann Smithervice: (none)Author Type: Physician AssistantType: Progress NotesFiled: 04/15/2018 3:44 PMNote Text:Patient: Trisha Parish Location: [facility]: 1945 Attending Physician: Dr. Sadi Nolan: April 15, 2018 Note Type: Progress NoteChief Complaint:History of left Breast cancer.HPI:This is a 73- year-old woman with a history of carcinoma of the leftbreast initially diagnosed 12-02-08. She was treated with lumpectomy.This was a T1c, N1 tumor with margins less than 1 mm. One of four lymphnodes were positive at the time of lymph node dissection. The tumor wasER/TN positive, HER-2 positve. Ultimately the patient had to move forwardwith left mastectomy ? this was done in December 2008. A residual 3 mm tumorwas found. Further lymph node examination noted no further nodes.Ultimately her staging was T1c, N1mi. Her adjuvant therapy was Taxotere,carboplatin and Herceptin followed by Herceptin for one year completed inJ of 2009. Her adjuvant hormonal therapy was Arimidex, which shetolerated fairly well. She completed 5 years of adjuvant hormonal therapy.Patient returns today in follow up. Had mammogram 03/2018 -BIRADS 2. Noother new complaints today. Denies changes on self breast examination.Past Medical History:Breast cancer as above, diabetes, hypertension, hyperlipidemia, history ofatrial fibrillation, anxiety, history of fibroids with hysterectomy andbilateral salpingo oophorectomy as above, history of cholecystectomy,history of lipoma removed, chronic kidney disease, strokeCurrent Outpatient Prescriptions:atorvastati n (LIPITOR) 80 mg tablet Take 80 mg by mouth once daily. Disp:Rfl:carvedilol (COREG) 25 mg tablet Disp: Rfl:lisinopril (ZESTRIL, PRINIVIL) 20 mg tablet Take 20 mg by mouth oncedaily. Disp: Rfl:NIFEdipine XL (ADALAT CC, PROCARDIA XL) 60 mg 24 hr tablet Take 60 mg bymouth once daily. Disp: Rfl:aspirin, enteric coated (ASPIRIN, ENTERIC COATED) 81 mg EC tablet Take 81mg by mouth once daily. Disp: Rfl:ALPRAZolam (XANAX) 0.25 mg tablet Take 0.25 mg by mouth at bedtime asneeded. Disp: Rfl:Cholecalciferol, Vitamin D3, (VITAMIN D-3) 2,000 unit cap Take 1 tablet bymouth once daily. Disp: Rfl:CLOPIDOGREL 75 mg tablet Take 75 mg by mouth once daily. Disp: Rfl:No current facility-administered medications for this visit.Allergies: LIPITORREVIEW OF SYSTEMS:CONSTITUTIONAL: Energy Stable no fevers chills sweats or unexplainedweight lossHEENT:no recurrent sinus infections or feversCARDIOVASCULAR: No chest pain, no leg swellingPULM: No dyspnea, unexplained cough.GI: No dysphagia/odynophagia, problematic reflux, constipation, diarrhea,changes in stool habits, hematochezia, melena.: No new urinary complaints, including dysuria, gross hematuria orpyuria.Breast: No changes on self breast examinationSocial History:The patient is . She has two daughters, alive and well. She doesnot use tobacco or alcohol.Family History:Negative. The closest relative that she has is a cousin who had breastcancer. She has no information however on her paternal side.PHYSICAL EXAMINATIONGeneral: Alert and oriented, no distress, pleasant and cooperative.Heart: Regular, normal S1 and S2, no murmurs, rubs, or gallopsLungs: Clear to auscultation bilaterally, no crackles or wheezesAbdomen: NT,ND no organomegalyExtremities: Feet/ankles without edema, posterior tibial pulses full andsymmetricalBreast left chest wall without nodules or masses, right breast without anytender areas or discrete nodules or massesLmyph: no cervical supraclavicular or axillary adenopathyNeuro: 2-12 intact, normal gaitBP 147/69 Pulse 66 Temp (Src) 98.2 (Oral) Resp 16 Ht 5' 4.016 (1.63m) Wt 178 lb 6.4 oz (80.9kg) SpO2 98% BMI 30.61 kg/(m2).03/2018 mammogram: negative, BIRADS 2Impression:This is a 73 year-old woman with a history of breast cancer, stage II(T1c, N1). She is status post adjuvant therapy with TCH followed by oneyear of Herceptin. Adjuvant hormonal therapy was Arimidex. Has completed5 years of therapy. Would continue observation.Plan:History of Left Breast Cancer-continue observation-RV one year-repeat mammogram at one year--03/2019-patient to contact the office with questions or concernsROXANN ONEAL PA-C Normal [facility] MAMM OUTSIDE DICOM IMPORT -N BNRon 04-05-2018 MAMM OUTSIDE DICOM IMPORT -NBNR Images were obtained outside of [facility] [id number] Normal [facility] Vital Signs Date Time Vital Sign Value Performing Clinician Facility 07-17-2023 11:00-0500 Body height 153.67 cm Sanya Tineo Other [facility] Other 07-17-2023 11:00-0500 Body mass index (BMI) [Ratio] 28.5 kg/m2 Sanya Tineo Other [facility] 07-17-2023 11:00-0500 Body weight 67.31 kg Sanya Tineo Other [facility] Other 07-17-2023 11:00-0500 Diastolic blood pressure 65 mm[Hg] Sanya Tineo Other [facility] Other 07-17-2023 11:00-0500 Systolic blood pressure 121 mm[Hg] Sanya Tineo Other [facility] Other 05-11-2023 11:30-0400 Body height 153.67 cm Sanya Tineo Other [facility] Other 05-11-2023 11:30-0400 Body mass index (BMI) [Ratio] 27.27 kg/m2 Sanya Tineo Other [facility] Other 05-11-2023 11:30-0400 Body weight 64.41 kg Sanya Tineo Other [facility] Other 05-11-2023 11:30-0400 Diastolic blood pressure 61 mm[Hg] Sanya Tineo Other [facility] Other 05-11-2023 11:30-0400 SaO2% (BldA) [Mass fraction] 97 % Sanya Tineo Other [facility] Other 05-11-2023 11:30-0400 Systolic blood pressure 107 mm[Hg] Sanya Tineo Other [facility] Other 04-17-2023 10:45-0400 Body height 153.67 cm Sanya Tineo Other [facility] Other 04-17-2023 10:45-0400 Body mass index (BMI) [Ratio] 27.89 kg/m2 Sanya Tineo Other [facility] Other 04-17-2023 10:45-0400 Body weight 65.86 kg Sanya Tineo Other [facility] Other 04-17-2023 10:45-0400 Diastolic blood pressure 72 mm[Hg] Sanya Tineo Other [facility] Other 04-17-2023 10:45-0400 Respiratory rate 12 /min Sanya Tineo Other [facility] Other 04-17-2023 10:45-0400 Systolic blood pressure 133 mm[Hg] Sanya Tineo Other [facility] Other 02-09-2023 11:00-0400 Body height 153.67 cm Sanya Tineo Other [facility] Other 02-09-2023 11:00-0400 Body mass index (BMI) [Ratio] 27.47 kg/m2 Sanya Tineo Other [facility] Other 02-09-2023 11:00-0400 Body weight 64.86 kg Sanya Tineo Other [facility] Other 02-09-2023 11:00-0400 Diastolic blood pressure 62 mm[Hg] Sanya Tineo Other [facility] Other 02-09-2023 11:00-0400 SaO2% (BldA) [Mass fraction] 98 % Sanya Tineo Other [facility] Other 02-09-2023 11:00-0400 Systolic blood pressure 125 mm[Hg] Sanya Tineo Other [facility] Other 09-08-2022 11:30-0500 Body height 153.67 cm Sanya Tineo Other [facility] Other 09-08-2022 11:30-0500 Body mass index (BMI) [Ratio] 29.77 kg/m2 Sanya Tineo Other [facility] Other 09-08-2022 11:30-0500 Body weight 70.31 kg Sanya Tineo Other [facility] Other 09-08-2022 11:30-0500 Diastolic blood pressure 58 mm[Hg] Sanya Tineo Other [facility] Other 09-08-2022 11:30-0500 SaO2% (BldA) [Mass fraction] 97 % Sanya Tineo Other [facility] Other 09-08-2022 11:30-0500 Systolic blood pressure 110 mm[Hg] Sanya Tineo Other [facility] Other Encounters Encounter Date Encounter Type Care Provider Facility Start: 08-28-2023 End: 08-28-2023 ambulatory DIRK ONEILL Not Available Start: 08-21-2023 End: 08-21-2023 ambulatory DIRK ONEILL Not Available Start: 07-24-2023 End: 07-24-2023 ambulatory JENNIFER MORALES Not Available Start: 07-17-2023 End: 07-17-2023 ambulatory Sanya Tineo Other [facility] Other Start: 07-17-2023 Patient encounter procedure Sanyakyle Tineo [facility] Start: 07-10-2023 End: 07-10-2023 ambulatory [facility] Start: 05-18-2023 End: 05-18-2023 ambulatory [facility] Start: 05-11-2023 End: 05-11-2023 ambulatory Sanya Tineo Other [facility] Other Start: 05-11-2023 Office outpatient vi sit 15 minutes Sanya Tineo [facility] Start: 05-09-2023 Telephone encounter Sanya Rivka [facility] Start: 05-09-2023 End: 05-10-2023 ambulatory MARGARET ALVAREZ [facility] Start: 05-08-2023 End: 05-08-2023 ambulatory Sanya Rivka Other [facility] Other Start: 05-08-2023 Telephone encounter Sanya Rivka [facility] Start: 04-17-2023 End: 04-17-2023 ambulatory Sanya Rivka Other [facility] Other Start: 04-17-2023 Office outpatient vi sit 15 minutes Sanya Tineo [facility] Start: 04-11-2023 End: 04-11-2023 ambulatory [facility] Start: 04-04-2023 Evaluation and manag ement of inpatient [facility] Start: 04-03-2023 End: 04-04-2023 Encounter for preprocedural cardiovascular examination [facility] Start: 04-03-2023 End: 04-04-2023 Evaluation and management of inpatient [facility] Start: 2023 End: 2023 ambulatory [facility] Start: 02-23-2023 End: 02-24-2023 ambulatory MARGARET ALVAREZ [facility] Start: 02-21-2023 End: 02-21-2023 ambulatory TAYLOR AVILESFERNANDO [facility] Start: 02-18-2023 End: 02-20-2023 Evaluation and management of inpatient Jailene Quesada Facility:[facility] Start: 02-09-2023 End: 02-09-2023 ambulatory Sanya Tineo Other [facility] Other Start: 02-09-2023 Office outpatient vi sit 25 minutes Sanya Tineo [facility] Start: 02-07-2023 Evaluation and manag ement of inpatient MARGARET ALVAREZ [facility] Start: 02-05-2023 Evaluation and manag ement of inpatient [facility] Start: 02-05-2023 Evaluation and manag ement of inpatient ANDREA JAZMIN [facility] Start: 02-05-2023 End: 02-07-2023 Evaluation and management of inpatient [facility] Start: 01-23-2023 End: 01-23-2023 ambulatory DOE SOTO [facility] Start: 01-17-2023 End: 01-17-2023 ambulatory [facility] Start: 12-05-2022 End: 12-05-2022 ambulatory Sanya Tineo Other [facility] Other Start: 12-05-2022 Telephone encounter Sanya Tineo [facility] Start: 12-04-2022 End: 12-04-2022 ambulatory Sanya Tineo Other [facility] Other Start: 12-04-2022 Telephone encounter Sanya Tineo [facility] Start: 10-24-2022 End: 10-24-2022 ambulatory DOE SOTO [facility] Start: 10-06-2022 End: 10-07-2022 ambulatory SHARITA AKDALTONA Facility:[facility] Start: 10-06-2022 [facility] Start: 09-20-2022 End: 09-20-2022 ambulatory PRECIOUS MONREAL [facility] Start: 09-12-2022 Evaluation and manag ement of inpatient MIKAYLA [facility] Start: 09-12-[address] SANYA TINEO Facil ity:[facility] Start: 09-11-2022 Evaluation and manag ement of inpatient [facility] Start: 09-10-2022 Evaluation and manag ement of inpatient [facility] Start: 09-10-2022 End: 09-12-2022 Evaluation and management of inpatient MICHELE GOLDSMITH [facility] Start: 09-10-2022 End: 09-10-[address] MICHELE GOLDSMITH . Facility:[facility] Start: 09-08-2022 End: 09-08-2022 ambulatory Sanya Tineo Other [facility] Other Start: 09-08-2022 Office outpatient vi sit 25 minutes Sanya Tineo [facility] Start: 06-03-2022 End: 06-04-[address] SANYA TINEO Facility:[facility] Start: 05-23-2022 End: 05-24-2022 ambulatory DIAMOND HILARIO Facility:[facility] Start: 05-16-2022 End: 05-17-[address] SANYA TINEO Facility:[facility] Start: 04-07-2022 End: 04-08-2022 ambulatory SHARITA AKRAJNEET Facility:[facility] Start: 11-25-2021 End: 11-26-2021 ambulatory SHARITA AKKINA Facility:[facility] Start: 07-08-2018 End: 07-09-2018 Patient encounter procedure DEFAULT PHYSICIAN [facility] Start: 04-15-2018 End: 04-16-2018 Patient encounter [facility]AD[facility]oner [facility] Procedures Date Procedure Procedure Detail Performing Clinician Start: 01-23-2023 Follow-up visit Follow-up DOE VELAZQUEZ Immunizations Immunization Date Immunization Notes Care Provider Fa cility 06-28-2022 COVID-19 Pfizer (Pediatric) Sanya Tineo Other [facility] Other 06-16-2022 influenza virus vaccine, split virus (incl. purified surface antigen) Sanya Tineo Other [facility] Other 09-03-2020 COVID-19 Vaccine Moderna - Documentation Purposes Only Sanya Tineo Other [facility] Other 04-26-2020 influenza virus vaccine, split virus (incl. purified surface antigen) Sanya Tineo Other [facility] Other 06-20-2015 influenza virus vaccine, split virus (incl. purified surface antigen) Sanya Tineo Other [facility] Other 06-01-2015 pneumococcal conjuga te vaccine, 13 valent Sanya Tineo Other [facility] Other Payers Date Payer Category Payer Medicare [id number] 2023 Self-pay 1959 Medicare [id number] 2. [id number] 1945 Unknown [id number] 2.16.8 [id number] 1945 Unknown [id number] 2.16.84 [id number] 1945 Unknown [id number] 2.16.84 [id number] 1945 Unknown [id number] 2.16.84 [id number] 1945 Unknown [id number] 2.16.84 0.1.201403.3.579.2.593 1945 Unknown [id number] 2.16.84 0.1.468023.3.579.2.593 1945 Unknown [id number] 2.16.84 [id number] 1945 Unknown [id number] 2.16.84 [id number] 1945 Unknown [id number] 2.16.84 [id number] 1945 Unknown [id number] 2.16.84 [id number] 1945 Unknown [id number] 2.16.84 0.1.382578.3.579.2.1259 1945 Unknown [id number] 2.16.840 .[id number] Unknown Unknown [id number] 2.16.8 [id number] Social History Date Type Detail Facility Unknown if ever smoked [facility] Other Sex Assigned At Sex Assigned At Bir th [facility] Other Clinical Notes 06-21-2021 to 07-17-2023 Note Date & Type Note Facility 07-17-2023 Evaluation note Encounter Date Diagnosis Assessment Notes Jul, Medicare annual wellness visit, subsequent (ICD-10 - Z00.00) Personalized health advice was given to the beneficiary including a written plan for screenings discussed and provided. Advanced care planning reviewed and/or information given as requested. Jul, Post-nasal drip (ICD-10 - R09.82) has had drainage for 3-4 months. She is extra concerned due to her cancer (breast) history - agrees to ENT referral for probable direct laryngoscopy and assessment. Jul, Anxiety, generalized (ICD-10 - F41.1) #30 tabs last more than a year, pt requests refill for intermittent and infrequent problem. Jul, HX: breast cancer (ICD-10 - Z85.3) Handwrote rx for prothesis bra #3 [facility] Other 10-13-2023 [facility] Subjective Trisha Parish is a 78 y.o. year old female patient being seen for Post-op TAVR Patient Active Problem List Diagnosis Heart block Acute renal failure syndrome (CMS/HCC) Anemia Atrial fibrillation (CMS/HCC) Benign hypertensive renal disease Carotid artery stenosis Cerebrovascular accident (CMS/HCC) Coronary arteriosclerosis Essential hypertension Hypertensive disorder Hyperparathyroidism due to renal insufficiency (CMS/HCC) Breast CA (CMS/HCC) Malignant neoplasm of female breast (CMS/HCC) Proteinuria Stage 3 chronic kidney disease (CMS/HCC) Stage 4 chronic kidney disease (CMS/HCC) Type 2 diabetes mellitus (CMS/HCC) Vitamin D deficiency 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 Social History Tobacco Use Smoking status: Never Smokeless tobacco: Never Substance Use Topics Alcohol use: Never Drug use: Never HPI Trisha is seen in follow up. She is a 78 yo lady with hypertension, CAD s/p bypass surgery and history of paroxysmal AF s/p MAZE and PARISH ligation and prior stroke. She has carotid stenosis, moderate by angiogram in 2014. She has CKD and sees nephrology (in October 2016 blood testing showed Cr 1.49, BUN 26 better than 2016). She has moderate mitral regurgitation by echocardiogram in 2014 She developed epistaxis and gum bleeding and stopped aspirin and they stopped. In September 2022 she was [facility] with weakness. She was found to have second-degree AV block. Echocardiogram showed moderate to severe aortic valve stenosis. She underwent dual-chamber pacemaker placement. In February 2023 she was admitted with presyncope, NSTEMI and evidence of progression of her aortic valve stenosis to severe by echocardiography. A stress test showed lateral ischemia. Cardiac catheterization showed patent 2 out of 4 bypass grafts with medical therapy being recommended for management of her coronary artery disease. She then underwent transesophageal echocardiogram that confirmed presence of severe aortic valve stenosis by area and DVI measurement. A CT scan of the chest showed a grade 3 aortic valve calcifications with a total calcium scoring of 2280 consistent with severe aortic valve stenosis. She developed hyperkalemia after starting spironolactone and this was stopped. She then underwent TAVR on 04/03/2023. She did well with that. On 04/06/2023 she presented to the emergency room at the [facility] with dizziness and low blood pressure. She was evaluated in the emergency room. Her work-up was essentially significant for mildly elevated troponin and mildly elevated D-dimer. Her blood pressure was improved to normal. She had no symptoms of chest pain or shortness of breath. Her creatinine was at baseline. She was discharged from the emergency room. I had seen her in follow-up on 04/11/2023 and she was doing well at that time. Today she reports that she has been doing well. She has had no recurrence of dizziness or hypotension. She has no angina and no shortness of breath. No lower extremity edema. She is currently taking aspirin in addition to her longtime clopidogrel therapy. she does complain of cough that has been happening over the past couple weeks. She has had upper respiratory infection along with her . Review of Systems Respiratory: Positive for cough. Objective Visit Vitals BP 128/70 (BP Location: Right arm, Patient Position: Sitting) Pulse 83 Wt 62.6 kg (138 lb) SpO2 98% BMI 23.68 kg/m??? OB Status Postmenopausal Smoking Status Never BSA 1.68 m??? Physical Exam Constitutional: Appearance: She is well-developed. She is not ill-appearing. HENT: Head: Normocephalic and atraumatic. Nose: Nose normal. Eyes: General: No scleral icterus. Pupils: Pupils are equal, round, and reactive to light. Neck: Thyroid: No thyromegaly. Vascular: No JVD. Cardiovascular: Rate and Rhythm: Normal rate and regular rhythm. Pulses: Radial pulses are 2+ on the right side and 2+ on the left side. Heart sounds: Murmur heard. Systolic (RUSB) murmur is present with a grade of 2/6. No friction rub. No gallop. Pulmonary: Effort: Pulmonary effort is normal. No respiratory distress. Breath sounds: Normal breath sounds. No wheezing or rales. Chest: Chest wall: No tenderness. Abdominal: General: Bowel sounds are normal. There is no distension. Palpations: Abdomen is soft. Tenderness: There is no abdominal tenderness. Musculoskeletal: General: No swelling. Cervical back: Neck supple. Skin: General: Skin is warm and dry. Neurological: General (more content not included)...[facility] 05-11-2023 Evaluation note* Encounter Date Diagnosis Assessment Notes Treatment Notes Treatment Clinical Notes May, Bronchitis (ICD-10 - J40) Complete course of antibiotics. Discussed steroids for dyspnea. was recently ill as well. ER if symptoms worsen or fevers begin over weekend. [facility] Other 10-03-2023 Evaluation note* Encounter Date Diagnosis Assessment Notes Treatment Notes Treatment Clinical Notes May, Cough, unspecified type (ICD-10 - R05.9) [facility] Other 09-12-2023 Evaluation note* Encounter Date Diagnosis Assessment Notes Treatment Notes Treatment Clinical Notes Apr, Other specified postprocedural states (ICD-10 - Z98.890) s/p Aortic valve repair - doing very well. Energy is improving. 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 Denies cardiac symptoms. Shows no signs or symptoms or poor control. Patient to continue with above medication and we will continue to monitor. Advised to pay attention to body and symptoms. Any developing patterns. Stay well hydrated. Apr, Chronic kidney disease, stage 3 unspecified (ICD-10 - N18.30) Stable and chronic; keep followup appts w Nephrology [facility] Other 09-06-2023 [facility] Subjective Trisha Parish is a 78 y.o. year old female patient being seen for Follow-up (1 week F/U) Patient Active Problem List Diagnosis Heart block Acute renal failure syndrome (CMS/HCC) Anemia Atrial fibrillation (CMS/HCC) Benign hypertensive renal disease Carotid artery stenosis Cerebrovascular accident (CMS/HCC) Coronary arteriosclerosis Essential hypertension Hypertensive disorder Hyperparathyroidism due to renal insufficiency (CMS/HCC) Breast CA (CMS/HCC) Malignant neoplasm of female breast (CMS/HCC) Proteinuria Stage 3 chronic kidney disease (CMS/HCC) Stage 4 chronic kidney disease (CMS/HCC) Type 2 diabetes mellitus (CMS/HCC) Vitamin D deficiency 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 Social History Tobacco Use Smoking status: Never Smokeless tobacco: Never Substance Use Topics Alcohol use: Never Drug use: Never HPI Trisha is seen in follow up. She is a 78 yo lady with hypertension, CAD s/p bypass surgery and history of paroxysmal AF s/p MAZE and PARISH ligation and prior stroke. She has carotid stenosis, moderate by angiogram in 2014. She has CKD and sees nephrology (in October 2016 blood testing showed Cr 1.49, BUN 26 better than 2016). She has moderate mitral regurgitation by echocardiogram in 2014 She developed epistaxis and gum bleeding and stopped aspirin and they stopped. In September 2022 she was [facility] with weakness. She was found to have second-degree AV block. Echocardiogram showed moderate to severe aortic valve stenosis. She underwent dual-chamber pacemaker placement. In February 2023 she was admitted with presyncope, NSTEMI and evidence of progression of her aortic valve stenosis to severe by echocardiography. A stress test showed lateral ischemia. Cardiac catheterization showed patent 2 out of 4 bypass grafts with medical therapy being recommended for management of her coronary artery disease. She then underwent transesophageal echocardiogram that confirmed presence of severe aortic valve stenosis by area and DVI measurement. A CT scan of the chest showed a grade 3 aortic valve calcifications with a total calcium scoring of 2280 consistent with severe aortic valve stenosis. She developed hyperkalemia after starting spironolactone and this was stopped. She then underwent TAVR on 04/03/2023. She did well with that. On 04/06/2023 she presented to the emergency room at the [facility] with dizziness and low blood pressure. She was evaluated in the emergency room. Her work-up was essentially significant for mildly elevated troponin and mildly elevated D-dimer. Her blood pressure was improved to normal. She had no symptoms of chest pain or shortness of breath. Her creatinine was at baseline. She was discharged from the emergency room. Today she reports that she has been doing well. She has had no recurrence of dizziness or hypotension. She has no angina and no shortness of breath. No lower extremity edema. She is currently taking aspirin in addition to her longtime clopidogrel therapy. Review of Systems All other systems reviewed and are negative. Objective Visit Vitals BP 129/66 (BP Location: Right arm, Patient Position: Sitting, BP Cuff Size: Adult) Pulse 70 Wt 66.2 kg (146 lb) SpO2 97% BMI 25.05 kg/m??? OB Status Postmenopausal Smoking Status Never BSA 1.73 m??? Physical Exam Constitutional: Appearance: She is well-developed. She is not ill-appearing. HENT: Head: Normocephalic and atraumatic. Nose: Nose normal. Eyes: General: No scleral icterus. Pupils: Pupils are equal, round, and reactive to light. Neck: Thyroid: No thyromegaly. Vascular: No JVD. Cardiovascular: Rate and Rhythm: Normal rate and regular rhythm. Pulses: Radial pulses are 2+ on the right side and 2+ on the left side. Heart sounds: Murmur heard. Systolic (RUSB) murmur is present with a grade of 2/6. No friction rub. No gallop. Pulmonary: Effort: Pulmonary effort is normal. No respiratory distress. Breath sounds: Normal breath sounds. No wheezing or rales. Chest: Chest wall: No tenderness. Abdominal: General: Bowel sounds are normal. There is no distension. Palpations: Abdomen is soft. Tenderness: There is no abdominal tenderness. Musculoskeletal: General: No swelling. Cervical back: Neck supple. Skin: General: Skin is warm and dry. Neurological: General: No focal deficit present. Mental Status: She is alert and oriented to person, place, and time. Psychiatric: Mood and Affect: Mood normal. Behavior: Behavior is cooperati (more content not included)...[facility] NoteSubjective Patient lying in bed without complaints. Denies chest pain or palpitations. V pacing on ECG monitor. Denies shortness of breath. No supplemental oxygen requirements. Denies numbness, tingling, and weakness to bilateral upper and lower extremities. Afebrile. Objective Patient Vitals for the past 24 hrs: BP Temp Temp src Pulse Resp SpO2 Height Weight 04/04/23 1337 151/58 36.4 ???C (97.5 ???F) [facility] 60 12 -- 1.626 m (5' 4.02 ) 64.3 kg (141 lb 12.1 oz) 04/04/23 0800 151/58 36.4 ???C (97.6 ???F) 60 12 98 % -- -- 04/04/23 0600 -- -- -- -- -- -- -- 64.3 kg (141 lb 12.1 oz) 04/04/23 0400 137/57 -- -- 64 12 96 % -- -- 04/04/23 0000 124/55 -- -- 66 16 96 % -- -- 04/03/23 2000 151/59 36.6 ???C (97.9 ???F) -- 66 11 97 % -- -- 04/03/23 1615 120/51 36.4 ???C (97.5 ???F) 60 16 98 % -- -- Physical Exam Constitutional: Appearance: Normal appearance. Cardiovascular: Rate and Rhythm: Normal rate. Pulmonary: Effort: No respiratory distress. Breath sounds: No wheezing or rales. Abdominal: General: There is no distension. Palpations: Abdomen is soft. Musculoskeletal: General: No swelling or deformity. Comments: Bilateral groin sites are soft. Small, quarter sized palpable, superficial hematoma to the right groin site. There is no ecchymosis, warmth, or redness. The groin site dressings are clean and dry without drainage. Skin: General: Skin is warm and dry. Coloration: Skin is not jaundiced or pale. Neurological: Mental Status: She is alert. Lab Results Component Value Date NA 136 04/04/2023 K 4.1 04/04/2023 CL 109 (H) 04/04/2023 ANIONGAP 11 04/04/2023 BUN 33 (H) 04/04/2023 CREATININE 1.58 (H) 04/04/2023 CALCIUM 8.7 04/04/2023 MG 2.0 02/07/2023 PHOS 3.2 09/12/2022 Lab Results Component Value Date BILITOT 0.8 02/04/2023 BILIDIR 0.1 02/04/2023 ALKPHOS 92 02/04/2023 AST 23 02/04/2023 ALT 11 02/04/2023 PROT 6.5 02/04/2023 ALBUMIN 3.8 02/04/2023 Lab Results Component Value Date WBC 5.60 04/04/2023 RBC 3.45 (L) 04/04/2023 HGB 10.1 (L) 04/04/2023 HCT 30.8 (L) 04/04/2023 MCV 89.3 04/04/2023 MCH 29.3 04/04/2023 MCHC 32.8 04/04/2023 RDW 14.6 04/04/2023 NEUTOPHILPCT 62.3 02/04/2023 LYMPHOPCT 19.3 (L) 02/04/2023 MONOPCT 9.1 02/04/2023 EOSPCT 8.6 (H) 02/04/2023 BASOPCT 0.4 02/04/2023 NEUTROABS 4.73 02/04/2023 LYMPHSABS 1.46 02/04/2023 MONOSABS 0.69 02/04/2023 EOSABS 0.65 (H) 02/04/2023 BASOSABS 0.03 02/04/2023 PLT 126 (L) 04/04/2023 NRBC 0.0 02/04/2023 No results found for this or any previous visit from the past 1 day. Nutrition Screen Assessment/Plan Principal Problem: Nonrheumatic aortic valve stenosis Plan: - Continue current medications. Patient is doing well. - Echocardiogram performed. The aortic valve is seated in good position with no perivalvular leak or prosthetic regurgitation. - Nothing to add from CT surgery standpoint. Medical management per cardiology team.[facility]08[facility]30[facility]23 Note04/04/23 1035 Admission Assessment Questions Verify insurance with patient Yes Do you understand medical disease or what brought you into the hospital? Yes Who is your current PCP? Sanya Tineo MD Can I schedule a follow up appointment for you at the time of discharge? No (patient prefers to make appt) Do you understand why you are taking your current medications? Yes Are you taking your medications as prescribed? Yes Did patient provide teach back? Yes Would you like use our pharmacy [facility] to fill your new medications at the time of Discharge? Yes Does the patient have a field nurse case manager assigned to them through their insurance? No Living Arrangement (Current/Prior to Hospitalization) Private residence (3 steps to enter) Does the patient have history of HHC or SNF? Yes (Hx of rehab placement in [place]) Assistive Device Grab bars Patient's goal for discharge Discharge home with Was patient reminded that goal for discharge is 11am? Yes Does the patient have transportation at discharge? Yes Type of Residence/Post Acute Needs Private residence Is PT/OT appropriate? No Is PT/OT ordered? No Is SW consult appropriate? No Is SW consult ordered? No Do you understand the benefits of MyChart? Yes Were you able to send link and activate MyChart? [facility]Chart already active [facility]08[facility] NoteIndications; Mrs. Robbins is a 78-year-old female with severe symptomatic stage D3 aortic valve stenosis. She was evaluated by cardiology and cardiothoracic surgery clinics and was deemed appropriate for TAVR as treatment for aortic valve stenosis. She had shared decision-making agreed to the procedure. She was brought in today for that purpose. Procedure; 1. Successful transcatheter aortic valve replacement heel using a 29 mm Medtronic fracture valve via percutaneous transfemoral access. 2. Aortic root angiography 3. Placement of temporary pacing wire #4 Access into the left common femoral, right and left common femoral arteries under ultrasound guidance 5. Preclosure in the right common femoral Utilizing 2 6 Mosotho ProGlide devices 6. Angio-Seal vascular closure in the right femoral, artery Float Builder; interventional tank house operator helper; Toño Balbuena MD Cardiac surgery tank house operator helper; Lina Lamas MD ; sample taker operator Herve Mayorga MD ; Methods; Procedure was explained to the patient with risks and benefits. She signed informed consent. She was brought to the [facility] in a fasting state. The procedure was performed the [facility] under conscious sedation. Both groin areas were prepped and draped in usual fashion. Micropuncture technique and ultrasound guidance was used to access the right common femoral artery and inner cannula angiography was performed following by upsizing to a 6 Mosotho by 11 cm sheath. The same was done for for access in the left common femoral artery. Ultrasound guidance was used for micropuncture access in left common femoral vein and 6 Mosotho by 11 cm introducer sheath was secured in place. This time we proceeded with preclosure in the right common femoral artery using 2 crossing perclosure devices and the access was then upsized over wire to the 10 Mosotho sheath. Heparin was given intravenously and therapeutic ACT was confirmed during the rest of the procedure and additional heparin was given as needed. A 5 Mosotho balloontipped pacemaker wire was advanced through the femoral sheath into the right ventricular apex and adequate capture was confirmed. Right common femoral artery was accessed and upsized over an Amplatz extra-stiff wire to the 14 Mosotho Medtronic sheath. Through the left common femoral sheath an angled 6 Mosotho pigtail catheter was then advanced to the ascending aorta into the 9 coronary cusp. Aortic root angiography was performed and the cause overlap view as determined by prior CT scan measurements. A 6 Mosotho AL diagnostic catheter was advanced via the right femoral sheath and using a stiff Glidewire the aortic valve was crossed and the catheter was advanced into the left ventricular cavity and using exchange length J-wire a 6 Mosotho angled pigtail catheter was advanced to make sure no entanglement under the mitral valve apparatus. Pigtail catheter was used then placed an exchange length Lunderquist double curve wire. Based on prior CTs CT measurements we proceeded with a Medtronic evolute fracture 29 mm valve. This was prepped using standard technique and checked under fluoroscopy for satisfactory preparation. Access sheath was retracted and you using the Medtronic evolute FX valve inline sheath we advanced the valve over the wire across the aortic cowlitz aortic valve and under pacing at 120 bpm the valve was deployed using the cusp overlap view technique. Angiography at the root showed that the valve was in good level compared to the aortic annulus. Therefore we continued deployed to the point of the rumble strips on the pacing 20 bpm. Angiography was performed that showed the valve was deeper than desired. The valve was recaptured and redeployed at a slightly higher position. This was performed under rapid pacing 120 bpm and angiography in the close overview showed adequate position. Angiography in the left anterior oblique view was performed showing adequate position. Therefore with full deployment was performed. The tabs were released. Pacing was stopped. The delivery system was retracted and removed outside the body. The 14 Mosotho access sheath was placed across the right femoral and 6 Mosotho angled pigtail catheter was advanced across the valve into the left ventricular cavity and used to perform left heart catheterization and valve gradient. There was a 3.7 mm transvalvular gradient. Echocardiography was performed which showed no paravalvular leak and a 6 mm mean gradient across the valve and no pericardial effusion. Root angiography was then performed with a power injection of contrast showed no paravalvular leak and adequate position of the valve. The proximal edge was 3 mm below the annulus. The pigtail catheters were removed. At this stage the procedure was concluded. Electrocardiography showed there was no new changes compared to baseline. Therefore the temporary pacing wire was retracted and removed. The previous placed per (more content not included)... [facility] NotePatient: Trisha Parish Procedure Information Date/Time: 04/03/23 1100 Procedure: TAVR [facility] / [facility] (Cath) Providers: Toño Balbuena MD Clinical information reviewed: Allergies Meds OB Status Physical Exam Airway Mallampati: II TM distance: >3 FB Neck ROM: full Cardiovascular Rhythm: regular Rate: normal Dental Pulmonary Abdominal Anesthesia Plan ASA 3 other (Moderate sedation) Anesthetic plan and risks discussed with patient. Use of blood products discussed with patient who consented to blood products. [facility] [facility] - [facility] Subjective Trisha Parish is a 78 y.o. year old female patient being seen for follow up ELENA and to discuss TAVR. Had labs last week after nephrology apt. Says she's feeling much better. Denies chest pain and SOB. 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 Social History Tobacco Use Smoking status: Never Smokeless tobacco: Never Substance Use Topics Alcohol use: Never Drug use: Never HPI Trisha is seen in follow up. She is a 78 yo lady with hypertension, CAD s/p bypass surgery and history of paroxysmal AF s/p MAZE and PARISH ligation and prior stroke. She has carotid stenosis, moderate by angiogram in 2014. She has CKD and sees nephrology (in October 2016 blood testing showed Cr 1.49, BUN 26 better than 2016). She has moderate mitral regurgitation by echocardiogram in 2014 She developed epistaxis and gum bleeding and stopped aspirin and they stopped. In September 2022 she was [facility] with weakness. She was found to have second-degree AV block. Echocardiogram showed moderate to severe aortic valve stenosis. She underwent dual-chamber pacemaker placement. In February 2023 she was admitted with presyncope, NSTEMI and evidence of progression of her aortic valve stenosis to severe by echocardiography. A stress test showed lateral ischemia. Cardiac catheterization showed patent 2 out of 4 bypass grafts with medical therapy being recommended for management of her coronary artery disease. She then underwent transesophageal echocardiogram that confirmed presence of severe aortic valve stenosis by area and DVI measurement. A CT scan of the chest showed a grade 3 aortic valve calcifications with a total calcium scoring of 2280 consistent with severe aortic valve stenosis. She developed hyperkalemia after starting spironolactone and this was stopped. Currently she has not been doing any of significant physical activity. She denies chest pain and shortness of breath at rest. She has not had recurrence of presyncopal episodes and dizzy spells Review of Systems Cardiovascular: Positive for palpitations (not often). Musculoskeletal: Positive for arthritis and joint pain. All other systems reviewed and are negative. Objective Visit Vitals BP 127/65 (BP Location: Right arm, Patient Position: Sitting) Pulse 67 Ht 1.626 m (5' 4 ) Wt 64.9 kg (143 lb) SpO2 99% BMI 24.55 kg/m??? OB Status Postmenopausal Smoking Status Never BSA 1.71 m??? Physical Exam Constitutional: Appearance: She is well-developed. She is not ill-appearing. HENT: Head: Normocephalic and atraumatic. Nose: Nose normal. Eyes: General: No scleral icterus. Pupils: Pupils are equal, round, and reactive to light. Neck: Thyroid: No thyromegaly. Vascular: No JVD. Cardiovascular: Rate and Rhythm: Normal rate and regular rhythm. Pulses: Radial pulses are 2+ on the right side and 2+ on the left side. Heart sounds: Murmur heard. Systolic (RUSB, LLSB) murmur is present with a grade of 4/6. No friction rub. No gallop. Pulmonary: Effort: Pulmonary effort is normal. No respiratory distress. Breath sounds: Normal breath sounds. No wheezing or rales. Chest: Chest wall: No tenderness. Abdominal: General: Bowel sounds are normal. There is no distension. Palpations: Abdomen is soft. Tenderness: There is no abdominal tenderness. Musculoskeletal: General: No swelling. Cervical back: Neck supple. Skin: General: Skin is warm and dry. Neurological: General: No focal deficit present. Mental Status: She is alert and oriented to person, place, and time. Psychiatric: Mood and Affect: Mood normal. Behavior: Behavior is cooperative. Judgment: Judgment normal. Allergies Allergies Allergen Reactions Demerol [Meperidine] Medications Current Outpatient Medications: ALPRAZolam (Xanax) 0.25 mg tablet, Take 0.25 mg by mouth if needed at bedtime for anxiety., Disp: , Rfl: atorvastatin (Lipitor) 80 mg tablet, Take 80 mg by mouth 1 (one) time each day., Disp: , Rfl: carvedilol (Co (more content not included)...[facility] 02-21-[facility] NoteCardiology Clinic Note Subjective Trisha Parish is a 77 y.o. year old female patient with a complex past medical history including atrial fibrillation status post cryo maze and left atrial appendage clipping in 2014, coronary artery disease status post four-vessel CAB[place] [address] German, hypertension, 2-1 AV block status post pacemaker on 09/11/2022, mitral valve regurgitation, breast cancer status post mastectomy and chemotherapy, syncope, and chronic kidney disease seen in follow-up. Patient Active Problem List Diagnosis Heart block Acute renal failure syndrome (CMS/HCC) Anemia Atrial fibrillation ([facility]/HCC) Benign hypertensive renal disease Carotid artery stenosis Cerebrovascular accident (CMS/HCC) Coronary arteriosclerosis Essential hypertension Hypertensive disorder Hyperparathyroidism due to renal insufficiency (CMS/HCC) Breast CA ([facility]/HCC) Malignant neoplasm of female breast (CMS/HCC) Proteinuria Stage 3 chronic kidney disease (CMS/HCC) Stage 4 chronic kidney disease ([facility]/HCC) Type 2 diabetes mellitus ([facility]/HCC) Vitamin D deficiency 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 Social History Tobacco Use Smoking status: Never Smokeless tobacco: Never Substance Use Topics Alcohol use: Never Drug use: Never Update: 02/21/2023 She was hospitalized at [facility] for 3 days after presenting with dizziness and treated for hyperkalemia and JASMIN thought to be prerenal related to diuretic use Potassium was 6.3, Spironolactone was discontinued, lisinopril was reduced from 40 mg to 10 mg, and hydralazine was increased to 25 mg 3 times daily She is still experiencing presyncopal symptoms but improving No significant dyspnea BP has been at times low and other elevated She was hospitalized 02/04-02/07/23 at [facility] and underwent coronary angiography and right heart catheterization. She was evaluated by CTS and recommended TAVR She is scheduled for a ELENA in 2 days Review of Systems Cardiovascular: Positive for near-syncope. Negative for chest pain, dyspnea on exertion, irregular heartbeat, leg swelling, orthopnea, palpitations, paroxysmal nocturnal dyspnea and syncope. Neurological: Positive for dizziness. Objective Visit Vitals BP 90/55 (BP Location: Left arm, Patient Position: Sitting, BP Cuff Size: Adult) Pulse 69 Ht 1.626 m (5' 4 ) Wt 62.8 kg (138 lb 6.4 oz) SpO2 99% BMI 23.76 kg/m??? Smoking Status Never BSA 1.68 m??? Physical Exam General: Awake, alert, NAD Pulm: Breath sounds clear to ascultation bilaterally with no wheeze, crackles or rhonchi Cards: Regular rate and rhythm, S1, S2. No S3 or S4 gallop. Murmur: none Abd: Soft, Nontender, physiologic bowel sounds are present Extr: Lower extremity edema: None. Skin: warm, dry, well perfused Neuro: A&Ox3, No gross deficits Allergies Allergies Allergen Reactions Demerol [Meperidine] Medications Current Outpatient Medications: ALPRAZolam (Xanax) 0.25 mg tablet, Take 0.25 mg by mouth if needed at bedtime for anxiety., Disp: , Rfl: atorvastatin (Lipitor) 80 mg tablet, Take 80 mg by mouth 1 (one) time each day., Disp: , Rfl: carvedilol (Coreg) 25 mg tablet, Take 25 mg by mouth with breakfast and with evening meal., Disp: , Rfl: cholecalciferol, vitamin D3, 50 mcg (2,000 unit) capsule, Take by mouth., Disp: , Rfl: clopidogrel (Plavix) 75 mg tablet, Take by mouth in the morning., Disp: , Rfl: [employer] Stephy 2 Sensor kit, , Disp: , Rfl: hydrALAZINE (Apresoline) 25 mg tablet, Take 25 mg by mouth in the morning and at bedtime., Disp: , Rfl: MELATONIN ORAL, Take by mouth 4 (four) times a week. Sun,,Sun,Sun, Disp: , Rfl: NIFEdipine CC (Adalat CC) 60 mg 24 hr tablet, Take 1 tablet (60 mg) by mouth before breakfast. Do not crush, chew, or split., Disp: 30 tablet, Rfl: 0 sennosides-docusate sodium (Edna-Colace) 8.6-50 mg tablet, Take 1 tablet by mouth in the morning. Sun,,Sun,Sun, Disp: , Rfl: anastrozole (Arimidex) 1 mg chemo tablet, anastrozole 1 mg tablet, Disp: , Rfl: docusate sodium (Colace) 100 mg capsule, 1 capsule in the morning., Disp: , Rfl: famotidine (Pepcid) 20 mg tablet, in the morning., Disp: , Rfl: Recent Labs 02/20/2023 Sodium 138, potassium 4.4, chloride 109, CO2 22.7, BUN 34, serum creatinine 1.68, estimated GFR 31% 02/18/2023 WBC 7.2, hemoglobin 10.8, hematocrit 32.7, platelets 185 Lab Results Component Value Date NA 140 02/07/2023 K 3.9 02/07/2023 CL 109 (H) 02/07/2023 CO2 25 02/07/2023 BUN 32 (H) 02/07/2023 CREATININE 1.40 (H) 02/07/2023 GLUCOSE 115 (H) 02/07/2023 CALCIUM 8.6 02/07/2023 Lab Results Component Value Date WBC 6.44 02/06 (more content not included)...[facility] 02-09-[facility] Evaluation note* Encounter Date Diagnosis Assessment Notes Treatment Notes Treatment Clinical Notes Feb, Nonrheumatic aortic valve stenosis (ICD-10 - I35.0) Discussed followup testing and likely procedure coming [facility] at length w pt and Feb, Chronic kidney disease, stage 3 unspecified (ICD-10 - N18.30) Reviewed labs - condition stable Feb, 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 Magin Other 07-05-2023 NotePhysical Therapy Physical Therapy Evaluation Patient Name: Trisha Parish : 1945 Today's Date: 02/07/2023 Trisha Parish is a 77 y.o. 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 Presented with near syncope. Noted to have elevated troponin at OSH. Cardiology consulted, patient had an echo on 02/05 that showed EF 55%. Planned for stress testing on 02/05. Troponin 0.27. General Subjective: RN and pt agreeable to OOB eval at this date. Patient found in supine upon initiation of session, upon conclusion of session, patient in chair with call light in reach and tray table in front. During session, patient confided in teletypewriter operator that they felt as though their balance had decreased during this admission and that they were worried about walking due to occasional and unpredictable losses of balance. Patient reported that they thought it could be related to neuropathy at their feet, but were unsure. Patient told teletypewriter operator that they wished to address loss of balance issues sooner rather than later and they felt less confident walking. Patient Active Problem List Diagnosis Heart block Acute renal failure syndrome ([facility]) Anemia Atrial fibrillation ([facility]) Benign hypertensive renal disease Carotid artery stenosis Cerebrovascular accident ([facility]) Coronary arteriosclerosis Essential hypertension Hypertensive disorder Hyperparathyroidism due to renal insufficiency ([facility]) Breast CA ([facility]) Malignant neoplasm of female breast ([facility]) Proteinuria Stage 3 chronic kidney disease ([facility]) Stage 4 chronic kidney disease ([facility]) Type 2 diabetes mellitus ([facility]) Vitamin D deficiency 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 ([facility]) Pre-operative cardiovascular examination, recent myocardial infarction ([facility]) Cardiac pacemaker in situ Postural dizziness with presyncope NSTEMI (non-ST elevated myocardial infarction) ([facility]) Hx of CABG Severe aortic stenosis Past Medical History: Diagnosis Date A-fib ([facility]) Cancer ([facility] [facility]) Coronary artery disease Hypertension Myocardial infarct ([facility]) Stroke ([facility]) Past Surgical History: Procedure Laterality Date BREAST SURGERY CHOLECYSTECTOMY CORONARY ARTERY BYPASS GRAFT HYSTERECTOMY Precautions Precautions Medical Precautions: telemetry Pain Pain Assessment Pain Assessment: 0-10 Pain Score: Not given for pain Pain Location: Other (Comment) (L arm and L flank, reported it to be from sleeping on that side) Pain Orientation: Left Cognition Cognition Overall Cognitive Status: Within Functional Limits Arousal/Alertness: Appropriate responses to stimuli Orientation Level: Oriented X4 Following Commands: Follows all commands and directions without difficulty Safety Judgment: Good awareness of safety precautions Awareness of Errors: Good awareness of errors made Deficits: Fully aware of deficits Attention Span: Appears intact Memory: Appears intact Problem Solving: Able to problem solve independently Communication: Intact General Assessment Home Living Home Living Type of Home: House Lives With: Spouse Home Adaptive Equipment: None Home Living Comments: stays on first floor. 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.) Vision Basic Assessment Activity Tolerance Activity Tolerance Endurance: Stage V Stage V (METs 3.5-4.0) - Standin-20 mins General Assessments Activity Tolerance Endurance: Stage V Stage V (METs 3.5-4.0) - Standin-20 mins Sensation Light Touch: No apparent deficits (Assessed kelton foot sensation d/t patient reporting a lack of feedback thru feet making them feel unsteady) Coordination Movements are Fluid and Coordinated: Yes Static Sitting Balance Static Sitting-Balance Support: Feet supported Static Sitting-Level of Assistance: Independent Static Standing Balance Static Standing-Balance Support: No upper extremity supported, Right upper extremity supported, Left upper extremity supported, With device (trialed w/ and w/o RW) Static Standing-Level of Assistance: Close supervision Dynamic Standing Balance Dynamic [place] (more content not included)...[facility] 02-07-2023 NoteHospital Medicine Discharge Summary Final Discharge Diagnosis: Severe aortic stenosis Near-Syncope NSTEMI type 2 Admission Diagnosis: Postural dizziness with presyncope [R42, R55] Hospital course: Trisha Parish is an 77 y.o. female who came from home with PMH of A-fib status post cryo maze and left atrial appendage clipping, CAD status post CABG, hypertension, recently placed PPM for 2-1 AV block, mitral valve regurgitation, carotid artery stenosis, CKD presents to hospital today as a direct admission from OSH for near-syncope like event. Patient describes she was standing in the shower, felt dizzy and felt was about to pass out. Denies fall, LOC or head injury, denies CP, recent medication changes or otherwise. Denies similar events in the near past. Denies room spinning. Denies hx of seizure disorder. She was seen by EP team last week and PPM interrogation was wnl. Patient acknowledges challenges with optimizing her BP as she says remains on the higher side. For her symptoms she presented to OSH. Patient had elevated troponin at 2000 but down trending. Patient also had HTN urgency which improved. Case was discussed by [facility] with Dr. Wilks and patient was subsequently transferred here. # Near-syncope: # Severe : - Patient will be scheduled for TAVR outpatient. # Positive stress test; # CAD s/p CABG: - Cardiac cath done and showed 2 out of 4 grafts are patent. radial to OM 2 and SVG to right PDA could not be engaged and are likely to be occluded. - Continue medical therapy with Plavix, Lipitor and Coreg. # Paroxysmal A.fib, s/p left atrial appendage clipping, currently paced rhythm: - Continue Coreg. # HTN, uncontrolled: - Continue hydralazine 25 mg tid. Lisinopril increased to 40 mg. Nifedipine increased to 60 mg. Discharged on spironolactone. - Monitor BP closely. # Hx of SSS s/p pacemaker. # Hx of breast cancer, on anastrozole. Dear Dr. Rivka MD, Trisha is advised to follow up with you within 1-2 weeks. Follow-up with: Cardiology Scheduled appointments: No future appointments. Your medication list START taking these medications Instructions Last Dose Given Next Dose Due spironolactone 25 mg tablet Commonly known as: Aldactone Take 1 tablet (25 mg) by mouth 1 (one) time each day at the same time for 30 doses. CHANGE how you take these medications Instructions Last Dose Given Next Dose Due lisinopril 40 mg tablet What changed: medication strength how much to take Take 1 tablet (40 mg) by mouth in the morning. NIFEdipine CC 60 mg 24 hr tablet Commonly known as: Adalat CC What changed: medication strength how much to take Take 1 tablet (60 mg) by mouth before breakfast. Do not crush, chew, or split. CONTINUE taking these medications Instructions Last Dose Given Next Dose Due ALPRAZolam 0.25 mg tablet Commonly known as: Xanax anastrozole 1 mg chemo tablet Commonly known as: Arimidex atorvastatin 80 mg tablet Commonly known as: Lipitor carvedilol 25 mg tablet Commonly known as: Coreg cholecalciferol (vitamin D3) 50 mcg (2,000 unit) capsule clopidogrel 75 mg tablet Commonly known as: Plavix docusate sodium 100 mg capsule Commonly known as: Colace famotidine 20 mg tablet Commonly known as: Pepcid FreeStyle Stephy 2 Sensor kit Generic drug: FreeStyle Stephy sensor system hydrALAZINE 25 mg tablet Commonly known as: Apresoline MELATONIN ORAL sennosides-docusate sodium 8.6-50 mg tablet Commonly known as: Edna-Colace STOP taking these medications calcitriol 0.25 mcg capsule Commonly known as: Rocaltrol Where to Get Your Medications These medications were sent to [facility] - [place], [place] - [address], [facility] [address] lisinopril 40 mg tablet NIFEdipine CC 60 mg 24 hr tablet spironolactone 25 mg tablet Trisha is allergic to demerol [meperidine]. Disposition: Home or Self Care Discharge Condition: Stable Code Status: Full Code Diagnostic Results Hematology: Results from last 7 days Lab Units 02/06/23 0531 02/04/23 2327 WBC AUTO 10*3/uL 6.44 7.58 HEMOGLOBIN g/dL 11.2* 12.4 HEMATOCRIT % 33.3* 37.5 MCV fL 87.2 87.0 PLATELETS AUTO 10*3/uL 152 175 Chemistry: Results from last 7 days Lab Units 02/07/23 0507 02/06/23 0531 02/05/23 0437 SODIUM mmol/L 140 140 140 POTASSIUM mmol/L 3.9 3.8 3.8 CHLORIDE mmol/L 109* 109* 107 CO2 mmol/L 25 25 25 BUN mg/dL 32* 31* 28* CREATININE mg/dL 1.40* 1.32* 1.18 GLUCOSE mg/dL 115* 142* 99 MAGNESIUM mg/dL 2.0 1.7* -- CALCIUM mg/dL 8.6 8.6 8.8 Results from last 7 days Lab Units 02/04/23 2327 AST U/L 23 ALT U/L 11 ALK PHOS U/L 92 BILIRUBIN TOTAL mg/dL 0.8 BILIRUBIN DIRECT mg/dL 0.1 Test Results Pending At Discharge: Diet at the time of discharge: cardiac diet Nutrition Screen Activity: Normal activity as tolerate (more content not included)...[facility] NoteHospital Medicine Daily Progress Note - 02/06/2023 1:29 PM; Room: [address] [place] [address] Admission: 02/04/2023 10:47 PM; Length of stay: 2 days THE HOSPITALIST TEAM PREFERS TO USE EPIC CHAT FOR COMMUNICATION 7AM-7PM. IF I DO NOT RESPOND WITHIN 15 MINUTES, PLEASE PAGE ME/CALL THROUGH THE CLIENT CARE SPECIALIST. FROM 7PM-7AM, PLEASE PAGE [phone](COVR) Code Status: Full Code Discharge Destination: home Discharge planning: Cardiology optimized her antihypertensive medications today if blood pressure improves and she is asymptomatic then likely discharge tomorrow. Overview Patient is seen for evaluation and management of near syncope. Subjective Patient is seen and examined at bedside for follow-up. No acute events overnight. She underwent cardiac catheterization yesterday. Her blood pressure is still on controlled cardiology added Procardia 60 mg once daily today. She denies any chest pain, shortness of breath, dizziness or diaphoresis. She also denies any fever, chills, nausea, vomiting or diarrhea. She has no other complaints at this time. Physical Exam Visit Vitals BP 155/87 (BP Location: Right leg, Patient Position: Lying) Pulse 65 Temp 36.6 ???C (97.8 ???F) (Temporal) Resp 12 Intake/Output Summary (Last 24 hours) at 02/06/2023 1329 Last data filed at 02/06/2023 0859 Gross per 24 hour Intake 520.67 ml Output 810 ml Net -289.33 ml Physical Exam General: alert, no acute distress Head: normocephalic, nontraumatic Neck: supple, no JVD Lungs: clear to auscultation bilateral, no wheezing, nonlabored CV: regular rate and rhythm, no murmur Abdomen: soft, nontender, nondistended, bowel sounds are positive Extremities: No edema, pulses are palpable, equal and bilateral Neuro: no acute focal deficit. Skin: no lesions. Psych: Stable mood Estimated body mass index is 26.33 kg/m??? as calculated from the following: Height as of this encounter: 1.6 m (5' 2.99 ). Weight as of this encounter: 67.4 kg (148 lb 9.4 oz). Active Inpatient Problems Principal Problem: Severe aortic stenosis Active Problems: Cardiac pacemaker in situ Anemia Atrial fibrillation (CMS/HCC) Carotid artery stenosis Essential hypertension Hypertensive disorder Breast CA (CMS/HCC) Type 2 diabetes mellitus (CMS/HCC) Vitamin D deficiency Postural dizziness with presyncope Hx of CABG NSTEMI (non-ST elevated myocardial infarction) ([facility]) Assessment and Plan #Near-syncope #NSTEMI type I versus type II #History of atrial fibrillation s/p cryo maze and left atrial appendage clipping. #Coronary artery disease s/p CABG in 2014 #Primary hypertension #History of second-degreeAV block s/p dual-chamber PPM #Moderate-severe aortic stenosis #Chronic kidney disease stage II # History of breast cancer - Echocardiogram revealed EF 55% and grade 1 diastolic dysfunction. - Lexiscan stress test was positive for reversible ischemia. - cardiology on board And she underwent cardiac cath done yesterday recommended medical management. - troponins are trending down. - CT surgery was consulted and recommended TAVR for severe aortic stenosis and cardiology is planning to bring patient back to hospital in 6 weeks to perform the procedure. - CT angiogram of chest, abdomen and pelvis and carotid Doppler ordered. - continue Plavix 75, Lipitor 80. -Optimize hypertensive therapy -continue Coreg 25 twice daily, lisinopril 40 daily, Procardia 60 daily, Aldactone 25 daily. Appreciate cardiology recommendations. VTE Prophylaxis: Heparin subcutaneous Scheduled Meds atorvastatin, 80 mg, oral, Nightly calcitriol, 0.25 mcg, oral, Every other day carvedilol, 25 mg, oral, BID with meals clopidogrel, 75 mg, oral, Daily famotidine, 20 mg, oral, Daily heparin (porcine), 5,000 Units, subcutaneous, q12h DAHLIA kit prep Tc 99m-sestamibi no.1, 10 millicurie, intravenous, Once in imaging kit prep Tc 99m-sestamibi no.1, 30 millicurie, intravenous, Once in imaging lisinopril, 40 mg, oral, Daily [START ON 02/07/2023] NIFEdipine XL, 60 mg, oral, Daily spironolactone, 25 mg, oral, q24h Pertinent Investigations Hematology: Results from last 7 days Lab Units 02/06/23 0531 02/04/237 WBC AUTO 10*3/uL 6.44 7.58 HEMOGLOBIN g/dL 11.2* 12.4 HEMATOCRIT % 33.3* 37.5 MCV fL 87.2 87.0 PLATELETS AUTO 10*3/uL 152 175 Chemistry: Results from last 7 days Lab Units 02/06/23 0531 02/05/23 0437 02/04/23 2327 SODIUM mmol/L 140 140 138 POTASSIUM mmol/L 3.8 3.8 3.8 CHLORIDE mmol/L 109* 107 107 CO2 mmol/L 25 25 23 BUN mg/dL 31* 28* 28* CREATININE mg/dL 1.32* 1.18 1.12 GLUCOSE mg/dL 142* 99 121* MAGNESIUM mg/dL 1.7* -- 1.4* CALCIUM mg/dL 8.6 8.8 9.0 Results from last 7 days Lab Units 02/04/23 2327 AST U/L 23 ALT U/L 11 ALK PHOS U/L 92 BILIRUBIN TOTAL mg/dL 0.8 BILIRUBIN DIRECT mg/dL 0.1 Historical Values: (Includes values prior to this admission) Lab Results Component Value D (more content not included)...[facility]04[facility]23 Note Attestation signed by Matilda Valentin MD at 02/06/2023 12:56 PM I personally saw and examined the patient on the same date of service as resident/fellow Dr. Jauregui. I discussed the findings and therapeutic plan with the resident/fellow Dr. Jauregui. I agree with the documentation, except for any edits/updates below. Teaching Physician's Revisions: None Cardiology Progress Note Subjective Subjective: Trisha Parish is a 77 y.o. female who was seen and evaluated at bedside this morning. There were no significant events overnight. Patient has no acute complaints at the moment Objective Objective: Patient Vitals for the past 24 hrs: BP Temp Temp src Pulse Resp SpO2 Weight 02/06/23 0900 155/87 36.6 ???C (97.8 ???F) Temporal 65 12 -- -- 02/06/23 0550 157/71 36.6 ???C (97.8 ???F) Temporal 63 11 98 % 67.4 kg (148 lb 9.4 oz) 02/06/23 0300 -- -- -- 63 10 97 % -- 02/06/23 0200 -- -- -- 63 14 98 % -- 02/06/23 0100 156/72 -- -- 64 15 98 % -- 02/06/23 0000 154/76 36.1 ???C (96.9 ???F) Temporal 63 13 98 % -- 02/05/23 2300 142/83 -- -- 66 11 97 % -- 02/05/23 2200 143/81 -- -- 66 15 98 % -- 02/05/23 2100 155/89 -- -- 74 13 99 % -- 02/05/232014 -- -- -- 75 15 99 % -- 02/05/231999 171/82 36.6 ???C (97.8 ???F) Temporal 77 16 98 % -- 02/05/23 1945 (!) 175/91 -- -- 83 22 99 % -- 02/05/23 1930 164/85 -- -- 74 13 98 % -- 02/05/23 1915 159/76 -- -- 76 13 98 % -- 02/05/23 1900 -- -- -- 77 14 98 % -- 02/05/23 1847 153/70 -- -- 80 14 99 % -- 02/05/23 1724 -- -- -- -- -- 98 % -- 02/05/23 1724 (!) 181/89 -- -- 82 14 98 % -- Physical Examination: GENERAL: AOx3, in no acute distress. HEAD: Atraumatic, normocephalic. EYES: JUAN, EOMI. NECK: No JVD present. CARDIAC: RRR. Systolic murmur present at the RUSB RESPIRATORY: CTAB, no increased effort of breathing. ABDOMEN: Soft, nontender, nondistended. EXTREMITIES: No lower extremity edema, peripheral pulses are 2+ bilaterally. NEURO: No focal deficits Relevant Lab Results Encounter Date: 02/04/23 ECG 12 lead Result Value Ventricular Rate 72 Atrial Rate 72 TN Interval 162 QRS DURATION 150 QT Interval 464 QTC CALCULATION(BAZETT) 508 P [place] 70 R-[place] -40 T Wave [place] 103 Impression Atrial-sensed ventricular-paced rhythm Abnormal ECG When compared with ECG of 10-SEP-2022 13:04, Electronic ventricular pacemaker has replaced Sinus rhythm Confirmed by Cheryl VALENTIN, MATILDA Robles ([id number]) on 02/05/2023 8:39:37 AM Lab Results Component Value Date TROPONINI 0.25 (HH) 02/05/2023 Complete Echo (TTE) w/wo Imaging Agent, Strain, 3D, Bubble Study Result Date: 02/05/[address] [facility] [address] [place] [address] [phone] (fax) [facility] Name: TRISHA PARISH Study Date: 02/05/2023 09:59 AM B/P: 136 mmHg/65 mmHg HR: 61 bpm Date of : 1945 [facility] Height: 63 in. Age: 77 year(s) Patient Room: 3122 Weight: 147 lb. Gender: Female Patient Status: InPt BSA: 1.7 m2 Indication: Syncope, Pacemaker, CABG, h/o breast CA Examination: Echocardiogram (Complete) Image Quality: Fair Patient Consent: Procedure explained to patient Conclusions Left Ventricle: The left ventricle is normal size. Global left ventricular systolic function is normal. The EF is 55 %visually. Left ventricular wall thickness is moderately increased. No regional wall motion abnormality. Grade 1, mild diastolic dysfunction (abnormal relaxation). Concentric left ventricular hypertrophy. Right Ventricle: The right ventricle is normal in size. Normal right ventricular systolic function. Doppler studies suggest normal right sided pressures. Left Atrium: The left atrium appears enlarged. Mitral Valve: Mild mitral regurgitation. Aortic Valve: Mild-moderate aortic valve regurgitation. Moderate to severe aortic stenosis. Overall Conclusions: Low-flow low-gradient moderate to severe aortic stenosis Doppler data (E/E') is consistent with volume overload. Cardiac phenotype is suggestive of amyloidosis, clinical correlation is needed. Measurements Left Ventricle Label Value Normal Value LVOTd 2.1 cm (18cm - 20cm) LVOT VTI 28.4 cm (18cm - 22cm) LVOT PGmax 4 mmHg LVEF visual 55 % LVDd, 2D 3.57 cm (3.9cm - 5.3cm) LVDs, 2D 2.68 cm (2.1cm - 4cm) IVSd, 2D 1.52 cm (0.6cm - 1.1cm) LVPWd, 2D 1.48 cm (0.6cm - 0.9cm) LV Mass, 2D ASE 198.69 g LV Mass Index, 2D ASE 116.9 g/m?? (44g/m?? - 88.4g/m??) RWT, MM 0.83 (0 - 0.42) LVSVI, 2D 15.9 ml/m2 LVOT PGmean 2 mmHg LVSV_LVOT 98 ml Right Ventricle Label Value Normal Value RVDd, 2D 3.56 cm (1.9cm - 3.8cm) TAPSE 1.7 cm Left Atrium Label Value Normal Value LA Volume, BP 97 ml (22ml - 52ml) LAESV index, BP 57.1 ml/m?? Right Atrium Label Value Normal Value RA Area 18 cm?? Aortic Va (more content not included)... [facility] NoteCTA CHEST W AND/OR WO IV CONTRAST 02/07/2023 10:18 AM CLINICAL INDICATIONS: Preoperative evaluation prior to T aVR PROTOCOL: Cardiac CTA examination CONTRAST: 100 mL Omnipaque 350 TECHNIQUE: Multidetector CT axial slices of the chest were obtained with IV contrast. Multiplanar reformats were performed and viewed on a separate workstation and reviewed to further define anatomy and possible pathology. Measurements of the aortic valve cusps and valve for replacement as well as 3-D volume rendered images are obtained and saved on the PACS. All CT scans at this facility use dose modulation, iterative reconstruction, and/or weight based dosing when appropriate to reduce radiation dose to as low as reasonably achievable. COMPARISON: Chest x-ray from 09/12/2022. FINDINGS: Lower neck: Thyroid gland with heterogeneous attenuation and enhancement and low-attenuation nodules seen in the right more than left thyroid lobes for ultrasound correlation, no supraclavicle adenopathy. Left subclavian pacer in place Vessels: Pulmonary arteries are within normal limits. No filling defects are appreciated. Mild atherosclerotic changes in the aorta. and coronary arteries. Evidence of prior CABG. Mediastinum and Bertha: Within normal limits. Heart: Normal size. No pericardial effusion. Airways: Within normal limits Lungs: Mild centrilobular emphysematous changes in the upper lobes and bibasal dependent atelectasis. Pleura: Within normal limits. Chest Wall: Within normal limits. Upper Abdomen: Please refer to abdomen CT report from the same day. Bones: T4 sclerotic small rounded area likely small bone island. Lower cervical spondylosis and lower thoracic spondylosis with bony spurring seen. Sternotomy from prior CABG. No acute bony pathology. Gated none chest calcium scoring part of the study revealed grade 3 aortic cusp calcifications with total calcium scoring of 2280 T aVR measurements: 3-D volume rendered image of the aortic root and proximal ascending aorta as well as coronal reconstruction of the aortic valve, annulus and proximal ascending aorta. Localization of the left coronary cusp, right coronary cusp and noncoronary cusp in axial image as well as embolization of the esophagus. Localization was also performed in 3-D volume rendered image 3 cusped view, anterior view and no CLINICAL INFORMATICIST-CAU view are obtained in 3-D volume rendered images. The annulus demonstrates measurements of 26.1 x 18.5 mm and surface area of 3.49 cm Square. The parameter is 72.1 mm. Embedded geometric suggests a valve size of 23 mm superimposed on the 3-D volume rendered image. The height of the left coronary artery is 17.2 mm from the annulus and the height of the right coronary artery is 22.8 mm from the annulus. Diameter of the left coronary sinus is 28.2 mm, right sinus 28.6 mm and noncoronary sinus 27.3 mm. Sinotubular junction diameter is 26 mm and proximal ascending aorta diameter is 30.1 mm. Descending abdominal aorta in the infrarenal region is 15.2 mm in diameter with vascular calcification and atherosclerotic plaquing seen. Diameter of the right common iliac artery is 8.15 mm with significant vascular calcification seen. Diameter of the right external iliac artery is 7.7 mm and diameter of the right femoral artery is 6.8 mm with vascular calcification visualized. Diameter of the left common iliac artery is 7.2 mm, left external iliac artery is 7.2 mm and left femoral artery is 6.1 mm with vascular calcification seen. Significant tortuosity is seen in the common and external iliac arteries bilaterally. IMPRESSION: Evidence of prior CABG and left subclavian pacer in place. Low-attenuation thyroid nodules more prominent in the right thyroid lobe. Clinical correlation and ultrasound evaluation is suggested. Grade 3 aortic cusp valvular calcifications with total calcium scoring of 2280. T aVR measurements as described above. Embedded geometric suggests a valve diameter of 23 mm. Electronically signed: Fely Carrington.[facility] Comment on above:Order Comment: TAVR [id number] NoteCTA ABDOMEN PELVIS W AND/OR WO IV CONTRAST 02/07/2023 10:18 AM CLINICAL INDICATIONS: Preoperative evaluation prior to T aVR. PROTOCOL: Abdomen and pelvis CTA CONTRAST: 100 mL Omnipaque 350 TECHNIQUE: Multidetector CT angiography axial slices of the abdomen and pelvis were obtained with IV contrast. Multiplanar reformats, MIP, and volume rendered 3-D images were generated on a separate workstation and reviewed to further define anatomy and possible pathology. 3-D volume rendered images and maximum intensity projection images are acquired in various projections. All CT scans at this facility use dose modulation, iterative reconstruction, and/or weight based dosing when appropriate to reduce radiation dose to as low as reasonably achievable. COMPARISON: 02/10/2015 FINDINGS: Lower Chest: Refer to chest CT report from the same day for full details ABDOMEN: Liver: Within normal limits. Bile Ducts: Normal caliber. Gallbladder: Absent gallbladder with multiple metallic clips seen from prior cholecystectomy. Pancreas: Markedly atrophic pancreas with dilated pancreatic duct with no focal masses. Spleen: Within normal limits. Adrenals: Within normal limits. Kidneys: Markedly atrophic and nonfunctional left kidney. Right kidney with nephrogram and small cysts seen. Pelvis: Reproductive Organs: No pelvic masses. Absent uterus likely from prior hysterectomy. Ureters: Within normal limits. Bladder: Within normal limits. Bowel: Normal caliber. Mesenteric Lymph Nodes: No enlarged mesenteric lymph nodes. Peritoneum: No ascites or free air, no fluid collection. Vessels: Atherosclerotic changes with moderate vascular calcification seen as well as atherosclerotic plaques in the abdominal aorta and iliac vessels. Retroperitoneum: Within normal limits. Abdominal Wall: Within normal limits. Bones: Within normal limits. Lower lumbar spondylosis with facet joint disease and mild levoconvex scoliosis. IMPRESSION: Evidence of prior cholecystectomy and hysterectomy. Vascular calcifications and atherosclerotic plaques in the aorta and branches. Atrophic and nonfunctional left kidney. Marked atrophy of the pancreas with limited pancreatic duct but no focal lesions. Lumbar spondylosis and levoconvex scoliosis. Electronically signed: Fely Carrington.[facility] 02-05-2023 NotePatient: Trisha Parish Procedure Information Date/Time: 02/05/23 1800 Procedures: Coronary angiography Right heart cath Valve assessment - Aortic valve [facility] 3 / [facility] (Cath) Providers: Herve Mayorga MD Clinical information reviewed: Allergies Meds Physical Exam Airway Mallampati: III Cardiovascular Rhythm: regular Dental Pulmonary Abdominal Anesthesia Plan ASA 3 other (Conscious sedation ) intravenous induction Anesthetic plan and risks discussed with patient. Use of blood products discussed with patient who. [facility] Note Clinical Nutrition Assessment Name: Trisha Parish Date: 1945 Date of Visit: 02/05/23 Reason for assessment: high risk Information obtained from: patient, medical record, and nursing Medical History No chief complaint on file. Past Medical History: Diagnosis Date A-fib (CMS/HCC) Cancer (CMS/HCC) Coronary artery disease Hypertension Myocardial infarct (CMS/HCC) Stroke (CMS/HCC) Past Surgical History: Procedure Laterality Date BREAST SURGERY CHOLECYSTECTOMY CORONARY ARTERY BYPASS GRAFT HYSTERECTOMY Current Outpatient Medications Medication Instructions ALPRAZolam (XANAX) 0.25 mg, oral, Nightly PRN anastrozole (Arimidex) 1 mg chemo tablet anastrozole 1 mg tablet atorvastatin (LIPITOR) 80 mg, oral, Daily calcitriol (Rocaltrol) 0.25 mcg capsule calcitriol 0.25 mcg capsule TAKE 1 CAPSULE BY MOUTH ON SUNDAY, SUNDAY, AND SUNDAY carvedilol (COREG) 25 mg, oral, 2 times daily with meals cholecalciferol, vitamin D3, 50 mcg (2,000 unit) capsule oral clopidogrel (Plavix) 75 mg tablet oral, Daily docusate sodium (Colace) 100 mg capsule 1 capsule, Daily RT famotidine (Pepcid) 20 mg tablet Daily RT FreeStyle Stephy 2 Sensor kit No dose, route, or frequency recorded. hydrALAZINE (APRESOLINE) 25 mg, oral, 2 times daily lisinopril 20 mg, oral, Daily MELATONIN ORAL oral, 4 times weekly, Sun,Tu,Wed,Fri NIFEdipine CC (ADALAT CC) 30 mg, oral, Daily before breakfast, Do not crush, chew, or split. sennosides-docusate sodium (Edna-Colace) 8.6-50 mg tablet 1 tablet, oral, Daily, Sun,,Sun,Sun Allergies Allergen Reactions Demerol [Meperidine] Nutrition Problems: Appetite: good Cognition: A&Ox4 Geriatric feeding skills: Ability to feed oneself Skin Integrity: skin intact Results from last 7 days Lab Units 02/05/23 0437 02/04/23 2327 GLUCOSE mg/dL 99 121* BUN mg/dL 28* 28* CREATININE mg/dL 1.18 1.12 SODIUM mmol/L 140 138 POTASSIUM mmol/L 3.8 3.8 MAGNESIUM mg/dL -- 1.4* HEMOGLOBIN g/dL -- 12.4 WBC AUTO 10*3/uL -- 7.58 I/O: Intake/Output Summary (Last 24 hours) at 02/05/2023 1539 Last data filed at 02/05/2023 1200 Gross per 24 hour Intake 711.67 ml Output 900 ml Net -188.33 ml Current Medications: atorvastatin, 80 mg, oral, Nightly calcitriol, 0.25 mcg, oral, Every other day carvedilol, 25 mg, oral, BID with meals clopidogrel, 75 mg, oral, Daily famotidine, 20 mg, oral, Daily heparin (porcine), 5,000 Units, subcutaneous, q12h DAHLIA kit prep Tc 99m-sestamibi no.1, 10 millicurie, intravenous, Once in imaging kit prep Tc 99m-sestamibi no.1, 30 millicurie, intravenous, Once in imaging lisinopril, 20 mg, oral, Daily NIFEdipine XL, 30 mg, oral, Daily Anthropometrics: Height: 160 cm (5' 2.99 ) Weight: 67.1 kg (147 lb 14.9 oz) Body mass index is 26.21 kg/m???. Wt history: 69 kg 09/10/22 IBW: 52.3 kg Nutrition Assessment: Diet History: Reports that appetite comes and goes, but generally eats pretty well. Had lost weight in the past with getting COVID and breast cancer treatment. But denies significant issues with appetite or intakes lately. Dietary Orders (From admission, onward) Start Ordered 02/05/23344 Diet NPO Diet effective now Comments: Sips with medications Question: Reason for NPO: Answer: elevated trop, may need any repeat testing 02/05/23344 Nutrition Risk: Low Nutrition Recommendations: Recommend HH diet as medically feasible. No nutrition risk at this time. Monitor intakes and nutritional status. Goals: Nutrition Goals: intake > 75% meals Alexander Chowdhury [facility]07-03-2023 NoteHospital Medicine Daily Progress Note - 02/05/2023 12:08 PM; Room: [address] [place] [address] Admission: 02/04/2023 10:47 PM; Length of stay: 1 days THE HOSPITALIST TEAM PREFERS TO USE Rapid Mobile CHAT FOR COMMUNICATION 7AM-7PM. IF I DO NOT RESPOND WITHIN 15 MINUTES, PLEASE PAGE ME/CALL THROUGH THE CLIENT CARE SPECIALIST. FROM 7PM-7AM, PLEASE PAGE [phone](COVR) Code Status: Full Code Discharge Destination: home Discharge planning: Lexiscan stress test and echogram today pending cardiology recommendations. Overview Patient is seen for evaluation and management of near syncope. Subjective Patient is seen and examined at bedside for follow-up. No acute events overnight. She denies any chest pain, shortness of breath, dizziness or diaphoresis. She also denies any fever, chills, nausea, vomiting or diarrhea. She has no other complaints at this time. Physical Exam Visit Vitals BP 144/68 Pulse 62 Temp 36.8 ???C (98.2 ???F) (Temporal) Resp 12 Intake/Output Summary (Last 24 hours) at 02/05/2023 1208 Last data filed at 02/05/2023 1043 Gross per 24 hour Intake 711.67 ml Output 700 ml Net 11.67 ml Physical Exam General: alert, no acute distress Head: normocephalic, nontraumatic Neck: supple, no JVD Lungs: clear to auscultation bilateral, no wheezing, nonlabored CV: regular rate and rhythm, no murmur Abdomen: soft, nontender, nondistended, bowel sounds are positive Extremities: No edema, pulses are palpable, equal and bilateral Neuro: no acute focal deficit. Skin: no lesions. Psych: Stable mood Estimated body mass index is 26.21 kg/m??? as calculated from the following: Height as of this encounter: 1.6 m (5' 2.99 ). Weight as of this encounter: 67.1 kg (147 lb 14.9 oz). Active Inpatient Problems Principal Problem: Postural dizziness with presyncope Assessment and Plan #Near-syncope #NSTEMI type I versus type II #History of atrial fibrillation s/p cryo maze and left atrial appendage clipping. #Coronary artery disease s/p CABG in 2014 #Primary hypertension #History of second-degreeAV block s/p dual-chamber PPM #Moderate-severe aortic stenosis #Chronic kidney disease stage II # History of breast cancer - Echocardiogram revealed EF 55% and grade 1 diastolic dysfunction. - Lexiscan stress test was positive for reversible ischemia. - cardiology on board Planning for cardiac catheterization. - troponins are trending down - device interrogation, appreciate cardiology input. - continue Plavix, Coreg, lisinopril, Procardia and Lipitor - currently n.p.o. VTE Prophylaxis: Heparin subcutaneous Scheduled Meds atorvastatin, 80 mg, oral, Nightly calcitriol, 0.25 mcg, oral, Every other day carvedilol, 25 mg, oral, BID with meals clopidogrel, 75 mg, oral, Daily famotidine, 20 mg, oral, Daily heparin (porcine), 5,000 Units, subcutaneous, q12h DAHLIA kit prep Tc 99m-sestamibi no.1, 10 millicurie, intravenous, Once in imaging kit prep Tc 99m-sestamibi no.1, 30 millicurie, intravenous, Once in imaging lisinopril, 20 mg, oral, Daily NIFEdipine XL, 30 mg, oral, Daily sodium chloride, 50 mL/hr, Last Rate: 50 mL/hr (02/05/23 0029) Pertinent Investigations Hematology: Results from last 7 days Lab Units 02/04/23 2327 WBC AUTO 10*3/uL 7.58 HEMOGLOBIN g/dL 12.4 HEMATOCRIT % 37.5 MCV fL 87.0 PLATELETS AUTO 10*3/uL 175 Chemistry: Results from last 7 days Lab Units 02/05/23 0437 02/04/23 2327 SODIUM mmol/L 140 138 POTASSIUM mmol/L 3.8 3.8 CHLORIDE mmol/L 107 107 CO2 mmol/L 25 23 BUN mg/dL 28* 28* CREATININE mg/dL 1.18 1.12 GLUCOSE mg/dL 99 121* MAGNESIUM mg/dL -- 1.4* CALCIUM mg/dL 8.8 9.0 Results from last 7 days Lab Units 02/04/23 2327 AST U/L 23 ALT U/L 11 ALK PHOS U/L 92 BILIRUBIN TOTAL mg/dL 0.8 BILIRUBIN DIRECT mg/dL 0.1 Historical Values: (Includes values prior to this admission) Lab Results Component Value Date TSH 6.40 (H) 09/10/2022 FREET4 1.36 09/10/2022 Lab Results Component Value Date [id number] 177 (L) 09/10/2022 IRON 27 (L) 09/10/2022 TIBC 203 (L) 09/10/2022 Imaging ECG 12 lead Atrial-sensed ventricular-paced rhythm Abnormal ECG When compared with ECG of 10-SEP-2022 13:04, Electronic ventricular pacemaker has replaced Sinus rhythm Confirmed by Cheryl VALENTIN, MATILDA Robles ([id number]) on 02/05/2023 8:39:37 AM Discharge Planning Discharge Planning Has discharge transport been arranged?: No Signed Josr Ray NP [facility] 02/05/2023 12:08 [facility] NoteHospital Medicine History and Physical 02/05/2023 12:23 AM THE HOSPITALIST TEAM PREFERS TO USE [employer] Mobile CHAT FOR COMMUNICATION 7AM-7PM. IF I DO NOT RESPOND WITHIN 15 MINUTES, PLEASE PAGE ME/CALL THROUGH THE CLIENT CARE SPECIALIST. FROM 7PM-7AM, PLEASE PAGE [phone](COVR) Chief Complaint Direct transfer History of Present Illness Trisha Parish is an 77 y.o. female who came from home with PMH of A-fib status post cryo maze and left atrial appendage clipping, CAD status post CABG, hypertension, recently placed PPM for 2-1 AV block, mitral valve regurgitation, carotid artery stenosis, CKD presents to hospital today as a direct admission from OSH for near-syncope like event. Patient describes she was standing in the shower, felt dizzy and felt was about to pass out. Denies fall, LOC or head injury, denies CP, recent medication changes or otherwise. Denies similar events in the near past. Denies room spinning. Denies hx of seizure disorder. She was seen by EP team last week and PPM interrogation was wnl. Patient acknowledges challenges with optimizing her BP as she says remains on the higher side. For her symptoms she presented to [facility]. Patient had elevated troponin at 2000 but down trending. Patient also had HTN urgency which improved. Case was discussed by [facility] hospital with Dr. Wilks and patient was subsequently transferred here. Review of System and Physical Exam Temp: [36.6 ???C (97.9 ???F)-36.7 ???C (98 ???F)] 36.6 ???C (97.9 ???F) Heart Rate: [70-82] 70 Resp: [10-13] 12 BP: (160-171)/(47-78) 160/70 Physical Exam Constitutional: Appearance: Normal appearance. HENT: Head: Atraumatic. Mouth/Throat: Pharynx: Oropharynx is clear. Eyes: Extraocular Movements: Extraocular movements intact. Abdominal: General: Bowel sounds are normal. Palpations: Abdomen is soft. Musculoskeletal: General: Normal range of motion. Skin: General: Skin is warm. Neurological: Mental Status: Mental status is at baseline. Psychiatric: Mood and Affect: Mood normal. Review of Systems Respiratory: Positive for shortness of breath. Gastrointestinal: Positive for nausea. Musculoskeletal: Negative for arthralgias. Skin: Negative for color change. Problem List Patient Active Problem List Diagnosis Date Noted Cardiac pacemaker in situ 10/06/2022 Postural dizziness with presyncope 02/05/2023 Pre-operative cardiovascular examination, recent myocardial infarction ([facility]/HCC) 10/06/2022 Atrial fibrillation (CMS/HCC) 09/20/2022 Carotid artery stenosis 09/20/2022 Cerebrovascular accident (CMS/HCC) 09/20/2022 Coronary arteriosclerosis 09/20/2022 Hypertensive disorder 09/20/2022 Heart block 09/10/2022 Hyperparathyroidism due to renal insufficiency ([facility]) 04/02/2019 Stage 4 chronic kidney disease ([facility]) 04/02/2019 Anemia 02/19/2017 Essential hypertension 02/19/2017 Malignant neoplasm of female breast ([facility]) 02/19/2017 Proteinuria 02/19/2017 Vitamin D deficiency 02/19/2017 Type 2 diabetes mellitus ([facility]) 07/09/2014 Acute renal failure syndrome ([facility]) 11/06/2013 Benign hypertensive renal disease 11/06/2013 Stage 3 chronic kidney disease ([facility]) 11/06/2013 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 Hx of Mod-severe aortic stenosis, could be contributing. Interrogate PPM in AM Optimize lytes Repeat surface echo, tele monitoring Cardiology consultation Elevated troponin-trend, noted down trend at OSH, anticoag was not advised per cards, will monitor. Second degree AV block- S/p dual chamber PPM Essential HTN- Noted to be in HTN urgency at OSH, currently wnl. Afib- on Plavix s/p MAZE and PARISH ligation and prior stroke CAD Hx of Breast CA-resume when once able to bring in. Not on formulary. VTE Prophylaxis: Heparin subcutaneous ----- Focus of this inpatient stay will remain on problems that need acute care setting for care. We will review available studies and will order additional labs, imaging and other studies as appropriate. As needed medicines are ordered as appropriate. VTE Prophylaxis will be ordered as appropriate. Please see above for management plan for individual hospital problems. Home medications are reviewed and will be continued as appropriate. Patient will be continued to be followed during this hospital stay by a member of [facility]. Past Medical History Past Medical History: Diagnosis Date A-fib ([facility]) Cancer ([facility]) Coronary artery disease Hypertension Myocardial infarct ([facility]) Stroke ([facility]) Past Surgical History Past Surgical History: Procedure Laterality Date BREAST SURGERY CHOLECYSTECTOMY CORONARY ARTERY BYPASS GRAFT HYSTERECTOMY Social History Social History Socioeconomic Histor (more content not included)...[facility] NoteUT Electrophysiology Consult Note Reason for visit: s/p PPM for AV block, AF s/p cryomaze HPI: Trisha Parish is a 77 y.o. 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 She was [facility] for weakness, suspected to have a stroke but was found to have second-degree AV block and underwent PPM implant. She had an echo done which was shown to have moderate to severe aortic stenosis, LV function grade 2 moderate diastolic dysfunction and moderately enlarged left atrium. Hospital Course 77 y.o. female with a past medical history significant for atrial fibrillation status post maze and left atrial appendage clip, coronary artery disease status post CABG, hypertension, stroke who presented with generalized weakness to [facility]. At [facility], EKG demonstarted a 2:1 AV block with prolonged TN interval 266. Chest x-ray demonstrated possible trace bilateral pleural effusions with interstitial prominence suggestive of edema. Labs were significant for creatinine 1.95, BUN 51, albumin 3.0, hemoglobin 11.2, MCV 92.8, proBNP 10,982, troponin 79.4, PT 12.6, INR 1.2. Patient was started on dopamine infusion. EKG after being started on dopamine infusion was significant for sthird-degree heart block with T wave inversions in lead III, aVR with heart rate 59. Patient was transferred to [facility] for further evaluation by cardiology. She was started on dopamin gtt, she underwent Pacemaker placement by EP on 09/11, she tolerated the procedure very well. She was resumed on her home BP meds except nifedipine. Patient remained HD , afebrile. AICD was interrogated. Repeat CXR with no pneumothorax Carotid ultrasound 03/25/2021: 1. 0-49% flow stenosis within the right left carotid arteries. 2. Mild atherosclerotic disease. 3. Several nodules noted within the right thyroid lobe, largest is 2.3 cm. Ultrasound evaluation of the thyroid gland should be considered. Echocardiogram 03/25/2021: LV systolic function is hyperdynamic, EF 65 to 70%, no wall motion abnormalities, mild LVH, grade 2 diastolic dysfunction, biatrial enlargement, RV is normal in size and systolic function. Mild mitral regurgitation, mild to moderate aortic stenosis, mild to moderate aortic regurgitation. Prior testing: Blood testing 01/19/2021: Hemoglobin 12.7, hematocrit 39, platelets 173, potassium 4.2, BUN 30, creatinine 1.73, GFR 29, HDL 34, cholesterol 123, triglycerides 166, LDL 56, hemoglobin A1c 6%. Carotid u/s 07/2018: right 50-69%. left <50%. Her Echocardiogram on 12/31/2014: Left ventricular wall thickness is mildly increased. Concentric remodeling. There is nonspecific thickening of the mitral valve leaflet. Moderate mitral annular calcification. Moderate mitral regurgitation. Normal biventricular systolic function. PMH: Past Medical History: Diagnosis Date A-fib (CMS/HCC) Cancer (CMS/HCC) Coronary artery disease Hypertension Myocardial infarct ([facility]/HCC) Stroke ([facility]/HCC) PSH: Past Surgical History: Procedure Laterality Date BREAST SURGERY CHOLECYSTECTOMY CORONARY ARTERY BYPASS GRAFT HYSTERECTOMY SH: Social Determinants of Health Tobacco Use: Low Risk Smoking Tobacco Use: Never Smokeless Tobacco Use: Never Passive Exposure: Not on file Alcohol Use: Not on file Financial Resource Strain: Low Risk Difficulty of Paying Living Expenses: Not hard at all Food Insecurity: Unknown Worried About Running Out of Food in the Last Year: Never true Ran Out of Food in the Last Year: Not on file Transportation Needs: Unknown Lack of Transportation (Medical): No Lack of Transportation (Non-Medical): Not on file Physical Activity: Not on file Stress: Not on file Social Connections: Not on file Intimate Partner Violence: Unknown Fear of Current or Ex-Partner: No Emotionally Abused: Not on file Physically Abused: Not on file Sexually Abused: Not on file Depression: Not on file Housing Stability: Unknown Unable to Pay for Housing in the Last Year: Not on file Number of Places Lived in the Last Year: Not on file Unstable Housing in the Last Year: No Allergies: Allergies Allergen Reactions Demerol [Meperidine] Weight: 66.7kg Visit Vitals BP 140/70 (BP Location: Right arm, Patient Position: Sitting, BP Cuff Size: Adult) Pulse 72 Ht 1.6 m (5' 3 ) Wt 66.7 kg (147 lb) SpO2 97% BMI 26.04 kg/m??? Smoking Status Never BSA 1.72 m??? Meds: Current Outpatient Medications on File Prior to Visit Medication Sig Dispense Refill ALPRAZolam (Xanax) 0.25 mg tablet Take 0.25 mg by mouth if needed at bedtime for anxiety. anastrozole (Arimidex) 1 mg chemo tablet anastrozole (more content not included)...[facility] NoteUT Cardiology - [facility] Subjective Trisha Parish is a 77 y.o. year old female patient being seen for aortic stenosis Valve Disorder, Atrial Fibrillation, and Coronary Artery Disease Patient Active Problem List Diagnosis Heart block Acute renal failure syndrome (CMS/HCC) Anemia Atrial fibrillation (CMS/HCC) Benign hypertensive renal disease Carotid artery stenosis Cerebrovascular accident (CMS/HCC) Coronary arteriosclerosis Essential hypertension Hypertensive disorder Hyperparathyroidism due to renal insufficiency (CMS/HCC) Breast CA (CMS/HCC) Malignant neoplasm of female breast (CMS/HCC) Proteinuria Stage 3 chronic kidney disease (CMS/HCC) Stage 4 chronic kidney disease (CMS/HCC) Type 2 diabetes mellitus (CMS/HCC) Vitamin D deficiency 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 Social History Tobacco Use Smoking status: Never Smokeless tobacco: Never Substance Use Topics Alcohol use: Never Drug use: Never HPI Trisha is seen in follow up. I last saw her on 06/21/2018. She is a 76 yo lady with hypertension, CAD s/p bypass surgery and history of paroxysmal AF s/p MAZE and PARISH ligation and prior stroke. She has carotid stenosis, moderate by angiogram in 2014. She has CKD and sees nephrology (in October 2016 blood testing showed Cr 1.49, BUN 26 better than 2016). She has moderate mitral regurgitation by echocardiogram in 2014 She developed epistaxis and gum bleeding and stopped aspirin and they stopped. In September 2022 she was admitted to [facility] with weakness. She was found to have second-degree AV block. Echocardiogram showed moderate to severe aortic valve stenosis. She underwent dual-chamber pacemaker placement. Nifedipine had been stopped we resumed it. She has been well with no angina pain and no shortness of breath on exertion. She has no claudications. She has no palpitations. Her blood pressure has been well controlled at home, systolic 130's - 140's. She has no stroke symptoms. Review of Systems All other systems reviewed and are negative. Objective Visit Vitals BP 151/74 (BP Location: Right arm) Pulse 78 Wt 66.2 kg (146 lb) SpO2 98% BMI 25.86 kg/m??? Smoking Status Never BSA 1.72 m??? Physical Exam Constitutional: Appearance: She is well-developed. She is not ill-appearing. HENT: Head: Normocephalic and atraumatic. Nose: Nose normal. Eyes: General: No scleral icterus. Pupils: Pupils are equal, round, and reactive to light. Neck: Thyroid: No thyromegaly. Vascular: No JVD. Cardiovascular: Rate and Rhythm: Normal rate and regular rhythm. Pulses: Radial pulses are 2+ on the right side and 2+ on the left side. Heart sounds: Murmur heard. Systolic (RUSB, LLSB) murmur is present with a grade of 4/6. No friction rub. No gallop. Pulmonary: Effort: Pulmonary effort is normal. No respiratory distress. Breath sounds: Normal breath sounds. No wheezing or rales. Chest: Chest wall: No tenderness. Abdominal: General: Bowel sounds are normal. There is no distension. Palpations: Abdomen is soft. Tenderness: There is no abdominal tenderness. Musculoskeletal: General: No swelling. Cervical back: Neck supple. Skin: General: Skin is warm and dry. Neurological: General: No focal deficit present. Mental Status: She is alert and oriented to person, place, and time. Psychiatric: Mood and Affect: Mood normal. Behavior: Behavior is cooperative. Judgment: Judgment normal. Allergies Allergies Allergen Reactions Demerol [Meperidine] Medications Current Outpatient Medications: atorvastatin (Lipitor) 80 mg tablet, Take 80 mg by mouth 1 (one) time each day., Disp: , Rfl: carvedilol (Coreg) 25 mg tablet, Take 25 mg by mouth with breakfast and with evening meal., Disp: , Rfl: clopidogrel (Plavix) 75 mg tablet, Take by mouth in the morning., Disp: , Rfl: docusate sodium (Colace) 100 mg capsule, 1 capsule in the morning., Disp: , Rfl: FreeAbundance Generationyle Stephy 2 Sensor kit, , Disp: , Rfl: hydrALAZINE (Apresoline) 25 mg tablet, Take 25 mg by mouth in the morning and at bedtime., Disp: , Rfl: lisinopril 20 mg tablet, Take 20 mg by mouth in the morning., Disp: , Rfl: NIFEdipine CC (Adalat CC) 30 mg 24 hr tablet, Take 30 mg by mouth before breakfast. Do not crush, chew, or split., Disp: , Rfl: ALPRAZolam (Xanax) 0.25 mg tablet, Take 0.25 mg by mouth if needed at bedtime for anxiety., Disp: , Rfl: anastrozole (Arimidex) 1 mg chemo tablet, anastrozole 1 mg tablet, Disp: , Rfl: calcitriol (Rocaltrol) 0.25 mcg capsule, calcitriol 0.25 mcg capsule TAKE 1 CAPSULE BY MOUTH ON SUNDAY, SUNDAY, AND SUNDAY, Disp: , Rfl: cholecalciferol, vitamin D3, 50 mcg (2,000 unit) capsule, Take by mouth., Disp: , Rfl: famotidine (Pepcid) 20 mg tablet (more content not included)...[facility] NoteDressing removed and incision is healing well without any s/s of infection.[facility]03-03-2023 NoteHypertension is currently well controlled with addition of nifedipine, continue current med regime.[facility]03-03-2023 NoteUTP CARDIOLOGY PROGRESS NOTE HPI: Trisha Parish is a 77 y.o. female here for Hypertension Re check after resuming nifedipine. States at home b/p has been well controlled after resuming nifedipine- has been 120-130/60-70 Denied lightheadedness, dizziness or syncope Review of Systems Cardiovascular: Positive for irregular heartbeat. Gastrointestinal: Positive for constipation. All other systems reviewed and are negative. Visit Vitals BP 114/64 Pulse 79 Ht 1.6 m (5' 3 ) Wt 65.5 kg (144 lb 6.4 oz) SpO2 97% BMI 25.58 kg/m??? Smoking Status Never BSA 1.71 m??? Allergies Allergen Reactions Demerol [Meperidine] Medications: Current Outpatient Medications on File Prior to Visit Medication Sig Dispense Refill ALPRAZolam (Xanax) 0.25 mg tablet Take 0.25 mg by mouth if needed at bedtime for anxiety. amLODIPine (Norvasc) 10 mg tablet amlodipine 10 mg tablet anastrozole (Arimidex) 1 mg chemo tablet anastrozole 1 mg tablet atorvastatin (Lipitor) 80 mg tablet Take 80 mg by mouth 1 (one) time each day. bisoproloL-hydrochlorothiazide (Ziac) 10-6.25 mg tablet bisoprolol 10 mg-hydrochlorothiazide 6.25 mg tablet calcitriol (Rocaltrol) 0.25 mcg capsule calcitriol 0.25 mcg capsule TAKE 1 CAPSULE BY MOUTH ON SUNDAY, SUNDAY, AND SUNDAY carvedilol (Coreg) 25 mg tablet Take 25 mg by mouth with breakfast and with evening meal. cholecalciferol, vitamin D3, 50 mcg (2,000 unit) capsule Take by mouth. clopidogrel (Plavix) 75 mg tablet Take by mouth in the morning. docusate sodium (Colace) 100 mg capsule 1 capsule in the morning. famotidine (Pepcid) 20 mg tablet in the morning. FreeStyle Stephy 2 Sensor kit furosemide (Lasix) 40 mg tablet in the morning. hydrALAZINE (Apresoline) 25 mg tablet Take 25 mg by mouth in the morning and at bedtime. lisinopril 20 mg tablet Take 20 mg by mouth in the morning. MELATONIN ORAL Take by mouth 4 (four) times a week. Sun,,Sun,Sun metoprolol tartrate (Lopressor) 25 mg tablet every 12 (twelve) hours. metoprolol tartrate (Lopressor) 50 mg tablet metoprolol tartrate 50 mg tablet NIFEdipine XL (Procardia XL) 90 mg 24 hr tablet pantoprazole (ProtoNix) 40 mg EC tablet in the morning. potassium chloride CR (Klor-Con M20) 20 mEq ER tablet in the morning. sennosides-docusate sodium (Edna-Colace) 8.6-50 mg tablet Take 1 tablet by mouth in the morning. Sun,,Sun,Sun sertraline (Zoloft) 25 mg tablet sertraline 25 mg tablet traMADol (Ultram) 50 mg tablet tramadol 50 mg tablet No current facility-administered medications on file prior to visit. Physical Exam: Constitutional: Appearance: Normal appearance. Without apparent distress HENT: Head: Normocephalic and atraumatic. Nose: Nose normal. Mouth/Throat: Mouth: Mucous membranes are moist. Eyes: Extraocular Movements: Extraocular movements intact. Conjunctiva/sclera: Conjunctivae normal. Neck: Vascular: No JVD. Cardiovascular: Rate and Rhythm: Normal rate and regular rhythm. Heart sounds: Normal heart sounds, S1 normal and S2 normal. Pulmonary: Effort: Pulmonary effort is normal. Breath sounds: Normal breath sounds. Musculoskeletal: General: Normal range of motion. Cervical back: Normal range of motion. Right lower leg: No edema. Left lower leg: No edema. Skin: General: Skin is warm and dry. Lt upper chest incision is C/D/I, well approximated, no erythema or calor. Capillary Refill: Capillary refill takes less than 2 seconds. Neurological: General: No focal deficit present. Mental Status: She is alert and oriented to person, place, and time. Psychiatric: Mood and Affect: Mood normal. Behavior: Behavior normal. Thought Content: Thought content normal. Judgment: Judgment normal. Labs: Last lab values have been reviewed CV Testing: Complete Echo (TTE) w/wo Imaging Agent, Strain, 3D, Bubble Study Result Date: 09/11/[address] [facility] [address] [id number] [phone] (fax) [facility] Name: TRISHA PARISH Study Date: 09/11/2022 10:26 AM B/P: 125 mmHg/69 mmHg HR: 68 bpm Date of : 1945 [facility] Height: 63 in. Age: 77 year(s) Patient Room: 3219 Weight: 153 lb. Gender: Female Patient Status: InPt BSA: 1.73 m2 Indication: Heart Block, CABG, h/o breast CA / left mastectomy Examination: Echocardiogram (Complete) Image Quality: Fair Patient Consent: Procedure explained to patient Conclusions Left Ventricle: The left ventricle is normal size. Global left ventricular systolic function is normal. The EF is 65 % visually. Left ventricular wall thickness is mildly increased. Grade 2, moderate diastolic dysfunction (pseudonormalized LV filling pattern). Concentric cardiac remodeling. Right Ventricle: The right ventricle is at upper normal limits in size. Normal right ventricular systolic function. Doppler studies suggest mildly elevated right (more content not included)...[facility]03-03[facility]23 NotePatient is here today for hypertension. Review of Systems Cardiovascular: Positive for irregular heartbeat. Gastrointestinal: Positive for constipation. All other systems reviewed and are negative.[facility] 09-20-2022 Note-s/p dual-chamber PPM -Follow-up with device clinic within the next 2 to 3 weeksUnReg[facility] Center02-15-2023 Note- He is hypertensive today but also has not had nifedipine -Currently takes 60 mg in the morning and 30 mg at night -We will have her start with 30 mg daily and return to clinic in 1 to 2 weeks for hypertension checkUnRegional Medical Center02-15-2023 NoteCoronary artery disease is stable -Continue current medicationsUnRegional Medical Center02-15-2023 Note- [id number] (age, gender, history of CVA) -s/p PARISH clipping, she is on Plavix -Follow-up with device check for concerns of arrhythmiaUnRegional Medical Center02-15-2023 Note- Follow-up with double end sewer regarding calcitriol [facility]02-15-2023 NoteUT Electrophysiology Consult Note Reason for visit: hospital follow up, wound check, hypertension HPI: Trisha Parish is a 77 y.o. 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 She was [facility] for weakness, suspected to have a stroke but was found to have second-degree AV block. She had an echo done which was shown to have moderate to severe aortic stenosis, LV function grade 2 moderate diastolic dysfunction and moderately enlarged left atrium. For some reason she was not given her nifedipine and was discharged without it. The discharge medication list instructed her not to resume nifedipine. Patient was then referred to come in today for hypertension per Dr. Balbuena; was found to be hypertensive 172/73. He is concerned about her blood pressure. She states she is also been feeling some fluttering feelings and has history of paroxysmal A-fib s/p cryo maze and PARISH clipping. I discussed with her she needs to have a device check since she has not had one since she left the hospital and this device check will tell us if she has had any concerns for A-fib. I spoke with Dr. Balbuena stated he would like her to resume her nifedipine. I will start her on 30 mg daily and have her come back in 1 to 2 weeks for hypertension. Patient also had question regarding calcitriol as this was not even mentioned on her discharge paperwork. I instructed her to continue the medication and follow-up with PCP/double end sewer Her device dressing is clean dry and intact. The wound looks clean, mildly erythemic, nontender, no drainage, no hematoma. No concerns for infection Denies chest pain, shortness of breath, lightheadedness, dizziness, cough, chills, fever. Discharge summary 09/10/22: Hospital Course 77 y.o. female with a past medical history significant for atrial fibrillation status post maze and left atrial appendage clip, coronary artery disease status post CABG, hypertension, stroke who presented with generalized weakness to [facility]. She presented with 2-day history of exertional shortness of breath and weakness with intermittent palpitations. She stated that her legs felt heavy. She denied any recent changes of medication and illness. Patient states that she does take Plavix daily. She denies any use of anticoagulation. At [facility], EKG demonstarted a 2:1 AV block with prolonged TN interval 266. Chest x-ray demonstrated possible trace bilateral pleural effusions with interstitial prominence suggestive of edema. Labs were significant for creatinine 1.95, BUN 51, albumin 3.0, hemoglobin 11.2, MCV 92.8, proBNP 10,982, troponin 79.4, PT 12.6, INR 1.2. Patient was started on dopamine infusion. EKG after being started on dopamine infusion was significant for sthird-degree heart block with T wave inversions in lead III, aVR with heart rate 59. Patient was [facility] for further evaluation by cardiology. She was started on dopamin gtt, she underwent Pacemaker placement by EP on 09/11, she tolerated the procedure very well. She was resumed on her home BP meds except nifedipine. Patient remained HD , afebrile. AICD was interrogated. Repeat CXR with no pneumothorax Per Sree 02/2022: Trisha is seen in follow up. I last saw her on 06/21/2018. She is a 76 yo lady with hypertension, CAD s/p bypass surgery and history of paroxysmal AF s/p MAZE and PARISH ligation and prior stroke. She has carotid stenosis, moderate by angiogram in 2014. She has CKD and sees nephrology (in October 2016 blood testing showed Cr 1.49, BUN 26 better than 2016). She has moderate mitral regurgitation by echocardiogram in 2014 She has been well with no angina pain and no shortness of breath on exertion. She has no claudications. She has no palpitations. Her blood pressure has been well controlled at home, systolic 130's. She has no stroke symptoms. She developed epistaxis and gum bleeding and stopped aspirin and they stopped. Blood testing 11/25/2021: BUN 27, creatinine 1.56, potassium 4.5, GFR 32. Carotid ultrasound 03/25/2021: 1. 0-49% flow stenosis within the right left carotid arteries. 2. Mild atherosclerotic disease. 3. Several nodules noted within the right thyroid lobe, largest is 2.3 cm. Ultrasound evaluation of the thyroid gland should be considered. Echocardiogram 03/25/2021: LV systolic function is hyperdynamic, EF 65 to 70%, no wall motion abnormalities, mild LVH, grade 2 diastolic dysfunction, biatrial enlargement, RV is normal in size and systolic function. Mild mitral regurgitation, mild to (more content not included)...[facility]02-15-2023 NotePatient here for wound check s/p device placement with Dr. Soto on 09/11/2022. She called the office yesterday to make us aware her BP has been running in the 170's-180's systolic since nifedipine was discontinued [facility]. Still feels palpitations. She sees nephrology out of [place]. Review of Systems Constitutional: Positive for malaise/fatigue. Cardiovascular: Positive for palpitations. All other systems reviewed and are negative.[facility] 09-12-2022 NoteCardiology Progress Note Subjective Subjective: Assessed at bedside. No acute events overnight Currently she is up sitting in chair without complaints. Denied chest pain, shortness of breath, orthopnea, palpitations. Objective Objective: BP 147/53 Pulse 64 Temp 37.3 ???C (99.1 ???F) Resp 15 Ht 1.6 m (5' 3 ) Wt 69 kg (152 lb 1.9 oz) SpO2 97% BMI 26.95 kg/m??? Physical Examination: GENERAL: AOx3, overweight, in no acute distress. HEAD: Atraumatic, normocephalic. EYES: JUAN, EOMI. NECK: No JVD present, no carotid bruits present. CARDIAC: AV paced, S1, S2 present. RUSB 2/3 systolic murmur, rubs, or gallops. RESPIRATORY: CTAB, no increased effort of breathing. ABDOMEN: Soft, nontender, nondistended. EXTREMITIES: No lower extremity edema, peripheral pulses are 2+ bilaterally. NEURO: No focal deficits. PSYCH: appropriate mood, affect. Relevant Lab Results Lab Results Component Value Date TROPONINI 0.03 09/10/2022 Echo- No nuclear medicine results found for the past 12 months Relevant Imaging Results XR CHEST 2 VIEWS 09/12/2022 2:15 PM Clinical: Pacemaker placement Comparison: 09/10/2022 Views: 2 Findings: Left pacemaker placement with tip of leads in region of right atrium and right ventricle. Stable right central line. Heart size is unchanged. Improved congestion and pulmonary edematous changes. Bilateral pleural effusions present. IMPRESSION: Impression: 1. No pneumothorax after pacemaker placement. 2. Bilateral pleural effusions with improvement in congestion and resolved edema 09/11/22 Echo Left Ventricle: The left ventricle is normal size. Global left ventricular systolic function is normal. The EF is 65 % visually. Left ventricular wall thickness is mildly increased. Grade 2, moderate diastolic dysfunction (pseudonormalized LV filling pattern). Concentric cardiac remodeling. Right Ventricle: The right ventricle is at upper normal limits in size. Normal right ventricular systolic function. Doppler studies suggest mildly elevated right sided pressures. Left Atrium: The left atrium is moderately enlarged. Mitral Valve: Moderate mitral regurgitation. Aortic Valve: Mild aortic valve regurgitation. Moderate to severe aortic stenosis. Tricuspid Valve: Mild tricuspid regurgitation. Pericardium: No pericardial effusion. Overall Conclusions: Doppler data (E/E') is consistent with volume overload DATE OF PROCEDURE: 09/11/2022 PERFORMING PHYSICIAN: Dr. Doe Soto CONSENT: Patient LOCATION: EP Lab PROCEDURE PERFORMED: 1. Implantation of pacemaker ([employer]) 2. Ultrasound guided venous access INDICATIONS: 1. AV block, type II, 2nd degree 2. Syncope. Assessment: Trisha Parish is a 77 y.o. female w/ PMH of CAD s/p CABG (2014), pAF s/p MAZE and PARISH ligation, prior CVA, moderate Carotid Stenosis and CKD who is currently in Mobitz type II with blocked PACs. Last echo in 2020 showed preserved EF. 2:1 Mobitz type II/Blocked PACs CAD s/p CABG (2014) Paroxysmal AF s/p MAZE and PARISH ligation Moderate bilateral carotid stenosis CKD Prior CVA Mod to severe /AI Dual chamber PPM implanted Plan: Dual chamber PPM- [employer] implanted yesterday, awaiting device interrogation and CXR- completed and no pneumothorax noted. If Device interrogation shows no acute concerns and device working appropriately pt may be discharged to home F/U with cardiology outpt in 1 week for wound check RTC 1 month (09/19/22) for device interrogation and 3 months with [employer] Development Engineer. Mikayla Duvall PALEONTOLOGY TEACHER Division of Cardiology, [facility]- [phone] Pager- [phone] Email- [email or web address]02-06-2023 NoteDUAL CHAMBER PACEMAKER IMPLANT PROCEDURE NOTE DATE OF PROCEDURE: 09/11/2022 PERFORMING PHYSICIAN: Dr. Doe Soto CONSENT: Patient LOCATION: EP Lab PROCEDURE PERFORMED: 1. Implantation of pacemaker ([employer]) 2. Ultrasound guided venous access INDICATIONS: 1. AV block, type II, 2nd degree 2. Syncope. PROCEDURAL SEDATION: Versed and Fentanyl. Moderate sedation was administered by the sedation nurse under my supervision and noted in the CVL log. Intraprocedural face to face sedation time: 39min. Monitoring: Cardiac telemetry, Blood pressure, continuous pulse oxymetry. FLUOROSCOPY TIME: 1min 25sec/ 5mGray. EBL: 15cc SPECIMEN REMOVED: None PREPARATION: 77 y.o. female w/ PMH of CAD s/p CABG (2015), pAF s/p MAZE and PARISH ligation, prior CVA, moderate Carotid Stenosis and CKD who is currently in Mobitz type II and experienced syncope and had to be placed on Dopamine for improvemnent of HR. She was brought for dual chamber PPM. PROCEDURAL DETAILS: Patient was placed in trendelenberg position and ultrasound was used to evaluate the patency of left axillary vein and for venous access. Left axillary venous access was obtained using modified seldinger technique using a 5 Mosotho micro-puncture needle on two occasions and 0.35 wires were placed. Local infiltration of 1% Lidocaine was performed, and an incision was created in the left upper chest. Dissection was then performed using cautery down to the fascial plane above the muscle. The belly of the pectoralis was identified and with gentle blunt dissection a small pocket was created for the device above the muscle. 6 Mosotho Safesheaths were placed over the wire. An active fixation [employer] pacing lead was then delivered through the 6Fsheath to the right ventricle. After confirmation of lead position on orthogonal views (CASILLAS and DREW) to confirm septal position, the screw was activated, and the lead was placed in the right ventricular mid cavity towards the septum. After confirmation of good sensing parameters, injury pattern and pacing thresholds, 10V pacing was done and no diaphragmatic stimulation was noted. It was then secured in the pocket using three 1-0 Silk sutures. Then an active fixation [employer] lead was delivered through the 6Fsheath to the right atrial appendage. After confirmation of lead position on orthogonal views (CASILLAS and DREW), the screw was activated. Good sensing parameters, injury pattern and pacing thresholds, the lead was then tested using Lambert's maneuver. 10V pacing was done and no diaphragmatic stimulation was noted. It was then secured in the pocket using three 1-0 Silk sutures. Pocket hemostasis was secured, and it was then copiously and vigorously irrigated with antibiotic solution. The leads were attached to the generator and then wrapped under the device and the device was tacked to underlying muscle and placed in the pocket. The pocket was closed in layers: subcutaneous layer using 2-0 Vicryl; skin using 2-0 absorbable suture. Glue was applied and Tegaderm dressing was placed on top. Lead parameters were then rechecked through the device as noted below. The patient was returned to the short stay room for post procedural observation. No immediate procedural complications were noted. POST PROCEDURE EXAM: Patient was hemodynamically stable. COMPLICATIONS: None. IMPRESSION: 1. Successful dual chamber pacemaker with excellent pacing and sensing parameters. RECOMMENDATIONS: 1. Occlusive dressing to be removed after 2 weeks. 2. Do not wet the incision for 7 days. 3. No lifting heavy weights using arm on the same side x 3weeks 4. Do not lift elbow above the shoulder on the same side for 4-6 weeks. 5. No driving for 1 month. 6. F/u in device clinic 1 week from discharge or sooner for any concerns. 7. Doxycycline 100mg bid x 2 weeks Doe Soto MD Cardiac ElectrophysiologyUnRegional Medical Center02-06-2023 Note Patient: Trisha Parish Procedure Information Date/Time: 09/11/22 1459 Procedure: Pacemaker DC new [facility] M[facility]INE WEDGER 1 / [facility] (Cath) Providers: Doe Soto MD Clinical information reviewed: Tobacco Allergies Meds Med Hx Surg Hx Fam Hx Soc Hx Physical Exam Airway Mallampati: II TM distance: >3 FB Neck ROM: full Cardiovascular Dental Pulmonary Abdominal Anesthesia Plan ASA 2 CSE Anesthetic plan and risks discussed with patient. Use of blood products discussed with patient who. Additional Equipment RequestsUnRegional Medical Center02-06-2023 Note Attestation signed by Matilda Valentin MD at 09/11/2022 5:16 PM I personally saw and examined the patient on the same date of service as resident/fellow Dr. Jauregui. I discussed the findings and therapeutic plan with the resident/fellow Dr. Jauregui. I agree with the documentation, except for any edits/updates below. Teaching Physician's Revisions: None. Cardiology Progress Note Subjective Subjective: Trisha Parish is a 77 y.o. female who presented with generalized weakness. Today she is afebrile and hemodynamically stable on a dopamine drip with heart rate in the 50s to 60s. EKG shows 2:1 AV block. She denies any complaints at the moment. Plan will be for a dual-chamber pacemaker today Objective Objective: Patient Vitals for the past 24 hrs: BP Temp Temp src Pulse Resp SpO2 Height Weight 09/11/22 0904 125/69 -- -- 59 16 95 % -- -- 09/11/22 0800 127/52 36.8 ???C (98.3 ???F) Temporal 61 14 96 % -- -- 09/11/22 0700 (!) 119/49 -- -- 59 15 94 % -- -- 09/11/22 0600 121/50 36.9 ???C (98.5 ???F) -- 65 17 94 % -- -- 09/11/22 0500 (!) 121/45 -- -- 62 14 93 % -- -- 09/11/22 0400 129/59 -- -- 62 14 93 % -- -- 09/11/22 0300 128/55 -- -- 64 15 93 % -- -- 09/11/22 0200 114/51 -- -- 69 15 95 % -- -- 09/11/22 0100 112/52 -- -- 68 15 94 % -- -- 09/11/22 0000 129/60 37.2 ???C (98.9 ???F) Temporal 72 12 93 % -- 69.8 kg (153 lb 14.1 oz) 09/10/22 2300 124/52 -- -- 73 16 92 % -- -- 09/10/22 2200 (!) 107/43 -- -- 77 18 92 % -- -- 09/10/22 2113 -- 38.2 ???C (100.7 ???F) -- -- -- -- -- -- 09/10/22 2100 (!) 121/49 -- -- 81 17 93 % -- -- 09/10/221999 131/53 -- -- 69 20 97 % -- -- 09/10/22 1946 -- 38.6 ???C (101.4 ???F) Temporal -- -- -- -- -- 09/10/22 1900 147/62 -- -- 83 21 93 % -- -- 09/10/22 1800 141/68 -- -- 60 20 92 % -- -- 09/10/22 1700 147/50 -- -- 64 19 94 % -- -- 09/10/22 1600 (!) 148/42 -- -- 66 19 92 % -- -- 09/10/22 1500 125/51 -- -- 60 20 94 % -- -- 09/10/22 1415 -- -- -- 57 21 94 % -- -- 09/10/22 1400 129/51 -- -- 56 17 93 % -- -- 09/10/22 1345 -- -- -- 55 18 96 % -- -- 09/10/22 1330 -- -- -- 58 14 95 % -- -- 09/10/22 1315 -- -- -- 63 13 95 % -- -- 09/10/22 1300 (!) 118/36 -- -- 54 22 92 % -- -- 09/10/22 1200 (!) 130/45 -- -- (!) 40 17 95 % -- -- 09/10/22 1115 (!) 129/44 36.7 ???C (98.1 ???F) Temporal (!) 37 15 98 % 1.6 m (5' 3 ) 72.8 kg (160 lb 7.9 oz) Physical Examination: GENERAL: AOx3, overweight, in no acute distress. HEAD: Atraumatic, normocephalic. EYES: JUAN, EOMI. NECK: No JVD present, no carotid bruits present. CARDIAC: S1, S2 present. Sinus bradycardia with heart block. No murmur, rubs, or gallops. RESPIRATORY: CTAB, no increased effort of breathing. ABDOMEN: Soft, nontender, nondistended. EXTREMITIES: No lower extremity edema, peripheral pulses are 2+ bilaterally. NEURO: No focal deficits. PSYCH: appropriate mood, affect. Relevant Lab Results Encounter Date: 09/10/22 ECG 12 lead Result Value Ventricular Rate 58 Atrial Rate 78 QRS DURATION 98 QT Interval 464 QTC CALCULATION(BAZETT) 455 R-Annada 20 T Wave [place] 14 Impression Sinus rhythm with 2nd degree A-V block (Mobitz I) Moderate voltage criteria for LVH, may be normal variant ( Sokolow-Lord , Shaun product ) Nonspecific ST abnormality Abnormal ECG When compared with ECG of 10-FEB-2015 08:40, Sinus rhythm is now with 2nd degree A-V block (Mobitz I) T wave inversion now evident in Inferior lead Confirmed by Doe Soto (80) on 09/10/2022 10:15:29 PM Lab Results Component Value Date TROPONINI 0.03 09/10/2022 No echocardiogram results found for the past 12 months No nuclear medicine results found for the past 12 months Relevant Imaging Results ECG 12 lead Sinus rhythm with 2nd degree A-V block (Mobitz I) Moderate voltage criteria for LVH, may be normal variant ( Sokolow-Lord , Shaun product ) Nonspecific ST abnormality Abnormal ECG When compared with ECG of 10-FEB-2015 08:40, Sinus rhythm is now with 2nd degree A-V block (Mobitz I) T wave inversion now evident in Inferior lead Confirmed by Doe Soto (80) on 09/10/2022 10:15:29 PM XR chest 1 view Narrative: History: Central line placement. Portable upright chest: 09/10/2022 Comparison: 02/10/2015 Findings: A single portable upright image of the chest was obtained. Patient is status post sternotomy. A left IJ catheter terminates at the right atrial SVC junction. There is vascular prominence with indistinct vascular margins centrally. There is no peripheral infiltrate. No pneumothorax or pleural effusion is present Impression: Basilar congestion with interstitial opacities compatible with edema. Electronically signed: Lior Pearl Assessment: Trisha Parish is a 77 y.o. female w/ PMH of CAD s/p CABG (2014 (more content not included)...[facility]23 Note Attestation signed by Easton Boone MD at 09/12/2022 10:23 AM The patient was evaluated with the resident/fellow I agree with the findings as described with the following additions or corrections: See below Critical Care services were required for the patient due to critical condition: #Severe Bradycardia with Mobitz type 2 #Chronic kidney disease 4 near baseline Cr 1.8 11/2021 #Atrial Fibrillation s/p MAZE and PARISH ligation not on anticoagulation #CAD s/p CABG #Aortic stenosis #Aortic regurgitation #Hypertension #Subclinical hypothyroidism I personally provided direct critical care services consisting of: Dopamine drip to keep Heart rate > 60, cutanuous opacing if needed, plan for Pacemaker placement later in the afternoon Follow-up echocardiogram Plan for pacemaker implantation today. Patient may receive Plavix prior to procedure. Hold home coreg IV iron Daily BMP, CBC, mag, Phos Continuous cardiac monitoring Critical Care minutes were 33, which excludes time performing separately billed procedures, updating family, and teaching. Medical ICU Progress Note Patient - Trisha Parish Age - 77 y.o. - 1945 [facility] # - [id number] Date of Admission - 09/10/2022 11:01 AM HPI/Hospital Course Subjective Trisha Parish is a 77 y.o. female with a past medical history significant for atrial fibrillation status post maze and left atrial appendage clip, coronary artery disease status post CABG, hypertension, stroke who presented with generalized weakness to [facility]. She presented with 2-day history of exertional shortness of breath and weakness with intermittent palpitations. She stated that her legs felt heavy. She denied any recent changes of medication and illness. Patient states that she does take Plavix daily. She denies any use of anticoagulation. At [facility], EKG demonstarted a 2:1 AV block with prolonged TN interval 266. Chest x-ray demonstrated possible trace bilateral pleural effusions with interstitial prominence suggestive of edema. Labs were significant for creatinine 1.95, BUN 51, albumin 3.0, hemoglobin 11.2, MCV 92.8, proBNP 10,982, troponin 79.4, PT 12.6, INR 1.2. Patient was started on dopamine infusion. EKG after being started on dopamine infusion was significant for sthird-degree heart block with T wave inversions in lead III, aVR with heart rate 59. Patient was transferred to [facility] for further evaluation by cardiology. On my evaluation, patient denied chest pain shortness of breath, lightheadedness, dizziness. She did state that she continued to feel weak. Patient arrived while on dopamine infusion. However, heart rate was noted to be in the 30s to 40s. Labs at [facility] suggestive of subclinical hypothyroidism, prediabetes and iron deficiency anemia. She was started on IV iron. SUBJECTIVE No acute events overnight. Patient denies chest pain and shortness of breath. OBJECTIVE Vitals height is 1.6 m (5' 3 ) and weight is 69.8 kg (153 lb 14.1 oz). Her temperature is 36.9 ???C (98.5 ???F). Her blood pressure is 119/49 (abnormal) and her pulse is 59. Her respiration is 15 and oxygen saturation is 94%. Temp: [36.7 ???C (98.1 ???F)-38.6 ???C (101.4 ???F)] 36.9 ???C (98.5 ???F) Heart Rate: [37-83] 59 Resp: [12-22] 15 BP: (107-148)/(36-68) 119/49 Physical Exam: General: No acute distress HEENT: Normocephalic, atraumatic, EOMI, no scleral icterus or erythema Neck: Supple, trachea midline, no masses noted Cardiovascular: Regular rate and rhythm, normal S1-S2, no murmurs, no rubs, no peripheral edema Respiratory: No acute respiratory distress, clear to auscultation bilaterally, no wheezing, no rales Abdomen: Soft, nontender, nondistended, positive bowel sounds Extremities: No cyanosis, no edema Neuro: No focal deficits Skin: Warm, dry, no rashes Weight: Admission weight: 72.8 kg (160 lb 7.9 oz) Wt Readings from Last 1 Encounters: 09/11/22 69.8 kg (153 lb 14.1 oz) Input/Output: Intake/Output Summary (Last 24 hours) at 09/11/2022 0907 Last data filed at 09/11/2022 0700 Gross per 24 hour Intake 747.53 ml Output 700 ml Net 47.53 ml Ventilator: Lab Results ABG: No results found for: PHART, EMA3BXO, PO2ART, FZR3GKZ, IONCALART No results found for: PHVEN, CBQ2MWW, PO2VEN, KND0XTW, IONCALVEN CBC: Results from last 7 days Lab Units 09/11/22 0616 09/10/22 1253 WBC AUTO 10*3/uL 5.86 9.85 HEMOGLOBIN g/dL 9.5* 10.6* HEMATOCRIT % 30.0* 33.5* PLATELETS AUTO 10*3/uL 165 204 Coagulation: Results from last 7 days Lab Units 09/11/22 0616 09/10/22 1253 APTT Seconds 48.0* -- INR 1.51* 1.36* Metabolic Panel: Results from last 7 days Lab Units 09/11/22 0616 09/10/22 1253 SODIUM mmol/L 138 133* POTASSIUM mmol/L 3.9 4.0 CHLORIDE mm (more content not included)...[facility] 09-10-2022 Note Attestation signed by Suzi Daly MD at 09/10/2022 3:24 PM I was present for the entire procedure. US guided Central line placement Pre-op Diagnosis: Bradycardia Post-op Diagnosis: Same Attending physician: Dr. Daly was present during the entire procedure Fellow:Camille Millard Consent: Was obtained from patient Time-out: A time-out was completed verifying correct patient, site, and procedure. Procedure summary: The patient was placed in Supine position. The patient's left neck region was prepped and draped in sterile fashion using chlorohexidine scrub. Anesthesia was achieved with 1% lidocaine as local anesthetic. The left IJ vein was accessed under ultrasound guidance using an introducer needle. Venous, non-pulsatile blood was withdrawn. The syringe was removed and a guidewire was advanced into the introducer needle. A small incision was made at the skin surface with a scalpel and the introducer needle was exchanged for a dilator over the guidewire. After appropriate dilation, the central venous catheter was inserted. The wire was removed and the catheter was sutured in place. Area was cleaned and Tegaderm applied. The patient tolerated the procedure without any hemodynamic compromise. At time of procedure completion, all ports aspirated and flushed properly. COMPLICATIONS: None ESTIMATED BLOOD LOSS: 5 ml Camille Millard [facility] Fellow [facility]02-03-2023 Evaluation note* Encounter Date Diagnosis Assessment Notes Treatment Notes Treatment Clinical Notes Sep, Cervical lymphadenopathy (ICD-10 - R59.0) sent order for recheck of masses on the thyroid ultrasound from Sep, Diabetes mellitus ty pe 2, uncontrolled, without complications (ICD-10 - E11.65) We will check her A1c at her next labs. Sep, Chronic kidney disease, stage 3 unspecified (ICD-10 - N18.30) Stable on present labs. Reviewed notes from nephrology. We will continue to factor this problem into medications and dosages. Sep, Left flank pain (ICD-10 - R10.9) Patient complains of this area, suspects pleurisy. She requests a chest x-ray to ensure everything is clear in her lung saba. Sep, Right thyroid nodule (ICD-10 - E04.1) History of thyroid nodules. Reviewed ultrasound thyroid from May 2022 with Trisha. Magin Other 11-16-2021 NotePROCEDURE REPORT Specimen #: [id number] Submitting Physician: Abner Wheeler MD SPECIMEN SUBMITTED A: LEFT EYE VITREOUS FLUID PROCEDURE(S) FLOW CYTOMETRIC ANALYSIS Date Ordered: 06/22/2021 Date Reported: 06/22/2021 Procedure Results and Interpretation Specimen type: Vitreous fluid Differential (%): Too few cells for accurate differential count. Viability: 100% (Trypan) Morphology comments: Sparsely cellular specimen predominantly composed of degenerating erythrocytes and small, irregular lymphocytes and macrophages containing hemophagocytic pigment and red blood cell fragments. Results and Interpretation: A limited flow cytometric analysis was performed on the vitreous fluid due to low cell yield. Antibodies to CD5, CD19, CD20, CD45, kappa and lambda immunoglobulin light chains were used. This shows that 6% of total events have the CD45 and side scatter properties of lymphocytes. The lymphocytes are T-cells (82%), and rare B-cells which are too few for confident assessment of clonality. Final Impression: There is no immunophenotypic evidence of a lymphoproliferative disorder in this limited sample. Correlation with the clinical findings is suggested. ANALYTE SPECIFIC REAGENT (ASR) DISCLAIMER This test was developed and its performance characteristics determined by [facility]'s [facility] [place] ([facility]). It has not been cleared or approved by the FDA. [facility] is regulated under CLIA as qualified to perform high-complexity testing. This test is used for clinical purposes. It should not be regarded as investigational or for research. 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 ENTIRELY SUBMITTED FOR FLOW CYTOMETRY. Date of Report: Date of Procedure: 06/21/2021 Date of Receipt: 06/22/2021 Submitted: Abner Wheeler MD Diagnostic interpretation performed at [facility], [address] [place] [address].[facility] Reference LabComment on above:Performed By: #### COPATH #### See report for performing lab information.Evaluation noteNo InformationNort AF83 Other History general Narrative - Reported* Type Description Date Medical History CAD in cowlitz artery Medical History Diabetes mellitus ty pe 2, uncontrolled, without complications Medical History Chronic kidney disease, stage 3 unspecified Medical History Elevated glucose Medical History Right thyroid nodule Medical History Menopause Medical History Enlarged thyroid gland Medical History Anxiety, generalized Medical History Essential hypertension Surgical History CHOLECYSTECTOMY 2014 Surgical History LEFT BREAST MASTECTOMY Hospitalization History SEE SURGICAL HX Magin Other History general Narrative - Reported* Type Description Date Medical History CAD in cowlitz artery Medical History Diabetes mellitus ty pe 2, uncontrolled, without complications Medical History Chronic kidney disease, stage 3 unspecified Medical History Elevated glucose Medical History Right thyroid nodule Medical History Menopause Medical History Enlarged thyroid gland Medical History Anxiety, generalized Medical History Essential hypertension Medical History Heart attack Surgical History CHOLECYSTECTOMY 2014 Surgical History LEFT BREAST MASTECTOMY Hospitalization History SEE SURGICAL HX Magin Other Summary Purpose Family History No Family History Records FoundNo Family History Records FoundNo Family History Records FoundNo Family History Records FoundNo Family History Records FoundNo Family History Records FoundNo Family History Records FoundNo Family History Records Found Advance Directives No Advanced Directives Records FoundNo Advanced Directives Records FoundNo Advanced Directives Records FoundNo Advanced Directives Records FoundNo Advanced Directives Records FoundNo Advanced Directives Records FoundNo Advanced Directives Records FoundNo Advanced Directives Records Found Reason for Referral Reason Dr. Morales in [place] - chronic PND Diagnosis 1 Post-nasal drip (R09 .82) Referral Organization [facility] Referring Provider First Name Snaya Referring Provider Last Name Rivka Referring Provider Specialty Family Medi cine Referred Organization [facility] Referred Address ,[place], [place],[address] Referred Provider Specialty Ear, Nose an d Throat Referral Priority Routine Additional Source Comments INFORMATION SOURCE (unrecogn ized section and content) DATE CREATED AUTHOR 05/01/2018 [facility] DATE CREATED AUTHOR AUTHOR'S ORGANIZ ATION 07/16/2018 [facility] DATE CREATED AUTHOR AUTHOR'S ORGANIZ ATION 06/23/[address] [facility] DATE CREATED AUTHOR AUTHOR'S ORGANIZ ATION 10/10/2022 [facility] DATE CREATED AUTHOR AUTHOR'S ORGANIZ ATION 03/09/[address] [facility] DATE CREATED AUTHOR AUTHOR'S ORGANIZ ATION 07/12/2023 [facility] DATE CREATED AUTHOR AUTHOR'S ORGANIZ ATION 08/29/2023 [facility] EPIC REASON FOR VISIT (unrecogniz ed section and content) sleeping troubles/ 3 month f ollow upmessagecovidUTMCUTMCCXRLung soundswheezingUTMCwellness FOR RECORDS PERTAINING TO PATIENTS WHO ARE OR HAVE BEEN ENROLLED IN A CHEMICAL DEPENDENCY/SUBSTANCEABUSE PROGRAM, SOME INFORMATION MAY BE OMITTED. This clinical summary was aggregated from multiple sources. Caution should be exercised in using it in the provision of clinical care. This summary normalizes information from multiple sources, and as a consequence, information in this document may materially change the coding, format and clinical context of patient data. In addition, data may be omitted in some cases. CLINICAL DECISIONS SHOULD BE BASED ON THE PRIMARY CLINICAL RECORDS. [facility] [employer] provides no warranty or guarantee of the accuracy or completeness of information in this document.
== END 2023-09-04 12:49 | disposition home or self-care (01) ==
LOC: PST 12:48
PROVIDERS: PCP Family Medicine; Visit Provider Ophthalmology
DX: Z01.818 Encounter for other preprocedural examination (principal); H25.812 Combined forms of age-related cataract, left eye

== ENCOUNTER 2023-09-06 07:25 | Day surgery (SDC) | payer MEDICARE, SELFPAY ==
--- NOTE | 2023-09-06 | HP_ITS ---
Date: 09/06/2023 HISTORY: The patient is a 78-year-old white female with complaints of declining vision out of her left eye. She has had difficulty from this eye and gradually worsening over the last 1-2 years. She is having difficulty with daily activities such as reading or working on the computer. She also states having difficulty driving and night time driving has become more treacherous because of glare and halos. 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 PAST MEDICAL HISTORY: 1. Anxiety. 2. Breast cancer. 3. Cardiac dysrhythmia. 4. Hypertension. 5. Proteinuria. 6. History of cholecystectomy. 7. Hysterectomy. 8. Mastectomy. SOCIAL HISTORY: Denies tobacco, alcohol, or recreational drug abuse. SYSTEMIC MEDICATIONS: Include colecalciferol, hydralazine, docusate sodium, clopidogrel, Alprazolam, carvedilol, atorvastatin, lisinopril, nifedipine, cimetidine, omeprazole. ALLERGIES TO MEDICATIONS: Include meperidine. REVIEW OF SYSTEMS: No pertinent positives. PHYSICAL EXAM: GENERAL: In general, she is awake, alert and oriented x3, well developed, well nourished, in no acute distress. HEART: Regular rate and rhythm. LUNGS: Clear bilaterally. ABDOMEN: Soft, non-tender, non-distended. EXTREMITIES: No pitting edema. OPHTHALMIC EXAM: Revealed a visual acuity of 20/30 -1 in the right eye and 20/100 in the left eye. Pupils motility, muscle balance, confrontational visual saba within normal limits bilaterally. Pressures measured at 15 bilaterally. Slit lamp exam revealed blepharitis with a severe decrease in tear film bilaterally. Conjunctiva, cornea, anterior chamber and iris were within normal limits bilaterally. Lens status demonstrated 2+ nuclear sclerosis in the right eye, 4+ nuclear sclerosis in the left. FUNDUS EXAM: Revealed a good view in the right, poor view in the left. Optic discs, vessels, periphery and vitreous were within normal limits bilaterally. Macula was within normal limits in the right and demonstrated some macular edema in the left eye. ASSESSMENT AND PLAN: Visually significant cataract, left eye. After risks, benefits, alternatives, as well as expectations were delivered to the patient, she elected to go forward with cataract removal. She understands the risks include but not limited to infection, bleeding, loss of vision, loss of the eye itself. Secondly, she understands postoperatively she is likely to require spectacle correction for her best visual acuity. Finally, a complete ophthalmic exam was performed and it is felt that while she does have an underlying condition in the back of the eye of the left eye, she had a significant cataract that was leading to the predominance of her vision decline. After understanding all risks as well as expectations, she elected to go forward with the procedure as listed above and will be doing so in the near future. KE
--- NOTE | 2023-09-06 | OP_ITS ---
OPERATION DATE: 09/06/2023 SURGEON: Erickson Schwab M.D. PREOPERATIVE DIAGNOSIS: Nuclear sclerotic cataract left eye. POSTOPERATIVE DIAGNOSIS: Nuclear sclerotic cataract left eye. PROCEDURE NAME: Cataract extraction with intraocular lens placement for the left eye. ANESTHESIA: Topical ESTIMATED BLOOD LOSS: Zero. COMPLICATIONS: None. PROCEDURE: The patient was brought to the Operating Room in supine position. After proper identification, the left eye was prepped and draped in a sterile ophthalmic fashion. A paracentesis created at the 5 o'clock position. Approximately 1 cc of unpreserved Xylocaine was injected into the anterior chamber followed by Amvisc Plus. Using a 2.6 mm Keratome blade, a clear corneal incision was created at the 3 o'clock limbus. A cystotome was then used to begin a curvilinear capsulorrhexis that was continued for 360 degrees with the Utrata forceps. BSS on a 26 gauge cannula was injected beneath the anterior capsule to hydrodissect as well as hydrodelineate the lens. After ensuring mobility, phacoemulsification was performed in a [id number]-type fashion. After all nuclear material had been removed from the eye, IA was introduced and all residual cortical material was cleaned up. Additional Amvisc Plus was injected into the posterior bag and a lens model MX60, 22.5 diopters was injected and dialed into position. After ensuring centration, IA was reintroduced into the anterior chamber and all residual Amvisc Plus was removed from the eye. BSS on a 30 gauge cannula was injected into the stroma of both the clear corneal incision as well as paracentesis to hydrate the wounds. Additional BSS was injected into the anterior chamber to pressurize the eye at approximately 20 to 22 mmHg by finger tension. 0.1 cc of antibiotics was injected the anterior chamber. Weck-Le sponges were used to check the wounds to be watertight. One drop of apraclonidine and one drop of prednisolone acetate placed into the eye and a shield was placed over top. The patient was sent to the postoperative area in satisfactory condition to follow up the following day for postoperative care. KE
--- OUTSIDE RECORDS SUMMARY | 2023-09-06 07:28 | XMS_ITS | CCD ---
Author Name Unknown Address [address] [place] [address] Organization [facility] Care Team Providers Care Overlock Sleeve Setter Name Role Phone WALLACE, SADI P Unavailable [...] sources) Meperidine Drug Allergy 06-16-2009 AOF [facility] Repository (11 sources) Meperidine; Translations: [MEPERIDINE] Drug Allergy 09-10-2022 Unknown [facility] Repository (1 source) Meperidine Drug Allergy 02-17-2023 [facility] Repository Medications Current Medications Medication Drug Class(es) [...] more days for 5 May, Active calcitriol 0.50850 mg oral capsule (3 sources) Vitamin D3 [...] a day Active FreeStyle Stephy 14 Day [place] - (10 sources) FreeStyle Stephy 14 Day [place] - as directed Active FreeStyle Stephy 14 [...] angina pectoris; Translations: [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] Onset: 3 [...] 3 Chronic Other aftercare (1 source) Other senior living (current) drug therapy; Translations: [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] Onset: 3 Episodic Other [...] Interpretation Reference Range Facility Follow-Upon 05-18-2023 Follow-Up [id number] Trisha Parish 1945 Date Provider Department Center 05/18/2023 TOÑO SIMPSON HILTON Gallego [facility] No family history on file Level of Service:98818 OR OFFICE/OUTPATIENT ESTABLISHED LOW MDM 20-29 MIN Reason for Visit and Comments: Post-op TAVR [730] Normal [facility] Office Visiton 04-11-2023 Follow-up visit [id number] Trisha Parish 1945 Date Provider Department Center 04/11/2023 TOÑO SIMPSON No family history on file Level of Service:60367 OR OFFICE/OUTPATIENT ESTABLISHED MOD MDM 30-39 MIN Reason for Visit and Comments: Follow-up [432094] - 1 week F/U [facility] Documentationon 04-05-2023 Documentation [id number] Trisha Parish 1945 F Date Provider Department Center 04/05/2023 389-LINA LAMAS HVCVASENDO [facility] No family history on file Reason for Visit and Comments: Post-op [483] [facility] 30on 04-04-2023 30 Daily Case Managemen t [...] Score: PT Recommendations: OT Recommendations: New Consults: [facility] 30 The patient is Moder ately Stable [...] monitored and maintained or improved Outcome: Progressing [facility] 30 The patient is Moder ately Stable [...] and maintained or improved Outcome: Progressing Normal [facility] B-TYPE NATRIURETIC PEPTIDEon 04-04-2023 Natriuretic peptide B (Bld) [Mass/Vol] 213 pg/mL High 0-100 [facility] Comment on above: Performed By: #### L [id number] ####[facility] ([facility])[address] [place] [address] BASIC METABOLIC PANELon 03-08 Anion gap [Moles/Vol] 11 mmol/L Normal 7-20 [facility] Comment on above: Performed By: #### L [id number] #### [facility] ([facility]) [address] [place] [address] Calcium [Mass/Vol] 8.7 mg/dL Normal 8.6-10.3 [facility] Comment on above: Performed By: #### L [id number] #### [facility] ([facility]) [address] [place] [address] Chloride [Moles/Vol] 109 mmol/L High 98-107 [facility] Comment on above: Performed By: #### L [id number] #### [facility] ([facility]) [address] [place] [address] CO2 [Moles/Vol] 20 mmol/L Low 21-31 [facility] Comment on above: Performed By: #### L [id number] #### [facility] ([facility]) [address] [place] [address] Creatinine [Mass/Vol] 1.58 mg/dL High 0.60-1.20 [facility] Comment on above: Performed By: #### L [id number] #### [facility] ([facility]) [address] [place] [address] GLOMERULAR FILTRATION RATE ML/MIN/1.73 SQ M.PREDICTED 33.3 mL/min/1.73m*2 Low >60.0 [facility] Comment on above: Result Comment: [facility]???s estimated glomerular filtration rate (eGFR) [...] group of individuals. Performed By: #### L [id number] #### [facility] ([facility]) [address] [place] [address] Glucose [Mass/Vol] 140 mg/dL High 70-100 [facility] Comment on above: Performed By: #### L [id number] #### [facility] ([facility]) [address] [place] [address] Potassium [Moles/Vol] 4.1 mmol/L Normal 3.5-5.1 [facility] Comment on above: Performed By: #### L [id number] #### [facility] ([facility]) [address] [place] [address] Sodium [Moles/Vol] 136 mmol/L Normal 136-145 [facility] Comment on above: Performed By: #### L [id number] #### [facility] [address] [place] [address] Urea nitrogen [Mass/Vol] 33 mg/dL High 7-25 [facility] Comment on above: Performed By: #### L [id number] #### [facility] ([facility]) [address] [place] [address] UREA NITROGEN/CREATININE (MASS RATIO) IN SER/PLAS 20.9 Normal [facility] Comment on above: Performed By: #### L [id number] #### [facility] [address] [place] [address] Anion gap [Moles/Vol] 13 mmol/L Normal 7-20 [facility] Comment on above: Performed By: #### L [id number] ####[facility] ([facility])[address] [place] [address] Calcium [Mass/Vol] 8.9 mg/dL Normal 8.6-10.3 [facility] Comment on above: Performed By: #### L [id number] ####[facility] ([facility])[address] [place] [address] Chloride [Moles/Vol] 110 mmol/L High 98-107 [facility] Comment on above: Performed By: #### L [id number] ####[facility] ([facility])[address] [place] [address] CO2 [Moles/Vol] 19 mmol/L Low 21-31 [facility] Comment on above: Performed By: #### L [id number] ####[facility] ([facility])[address] [place] [address] Creatinine [Mass/Vol] 1.61 mg/dL High 0.60-1.20 [facility] Comment on above: Performed By: #### L [id number] ####[facility] [place] [address] GLOMERULAR FILTRATION RATE ML/MIN/1.73 SQ M.PREDICTED 32.6 mL/min/1.73m*2 Low >60.0 [facility] Comment on above: Result Comment: [facility]???s estimated glomerular filtration rate (eGFR) [...] of individuals. Performed By: #### L [id number] ####[facility] ([facility])[address] [place] [address] Glucose [Mass/Vol] 95 mg/dL Normal 70-100 [facility] Comment on above: Performed By: #### L [id number] ####[facility] ([facility])[address] [place] [address] Potassium [Moles/Vol] 4.2 mmol/L Normal 3.5-5.1 [facility] Comment on above: Performed By: #### L [id number] ####[facility] ([facility])[address] [place] [address] Sodium [Moles/Vol] 138 mmol/L Normal 136-145 [facility] Comment on above: Performed By: #### L [id number] ####[facility] ([facility])[address] [place] [address] Urea nitrogen [Mass/Vol] 34 mg/dL High 7-25 [facility] Comment on above: Performed By: #### L [id number] ####[facility] ([facility])[address] [place] [address] UREA NITROGEN/CREATININE (MASS RATIO) IN SER/PLAS 21.1 Normal [facility] Comment on above: Performed By: #### L [id number] ####[facility] ([facility])[address] [place] [address] CBCon 04-04-2023 Erythrocyte distribution width (RBC) [Ratio] 14.6 % Normal 11.5-15.0 [facility] Comment on above: Performed By: #### L [id number] #### [facility] ([facility]) [address] [place] [address] ERYTHROCYTE MEAN CORPUSCULAR HEMOGLOBIN CONCENTRATION (G/DL) BY AUTOMATED 32.8 g/dL Normal 32.0-35.0 [facility] Comment on above: Performed By: #### L [id number] #### [facility] ([facility]) [address] [place] [address] Hematocrit (Bld) [Volume fraction] 30.8 % Low 36.0-48.0 [facility] Comment on above: Performed By: #### L [id number] #### [facility] ([facility]) [address] [place] [address] Hemoglobin (Bld) [Mass/Vol] 10.1 g/dL Low 12.0-15.0 [facility] Comment on above: Performed By: #### L [id number] #### [facility] ([facility]) [address] [place] [address] MCH (RBC) [Entitic mass] 29.3 pg Normal 27.0-33.0 [facility] Comment on above: Performed By: #### L [id number] #### [facility] ([facility]) [address] [place] [address] MCV (RBC) [Entitic vol] 89.3 fL Normal 82.0-98.0 [facility] Comment on above: Performed By: #### L [id number] #### [facility] ([facility]) [address] [place] [address] PLATELETS (10*3/UL) IN BLOOD AUTOMATED COUNT 126 10*3/uL Low 150-400 [facility] Comment on above: Performed By: #### L [id number] #### [facility] ([facility]) [address] [place] [address] RBC (Bld) [#/Vol] 3.45 10*6/uL Low 3.80-5.00 [facility] Comment on above: Performed By: #### L [id number] #### [facility] ([facility]) [address] [place] [address] WBC (Bld) [#/Vol] 5.60 10*3/uL Normal 4.00-10.60 [facility] Comment on above: Performed By: #### L [id number] #### [facility] ([facility]) [address] [place] [address] DSon 04-04-2023 DS ----- ----- Attestation signed [...] Medications These medications were sent to [facility] - [place], [place] - [address] [facility] [place] [address] [facility] [place] [address], [facility] [address] acetaminophen 325 mg tablet aspirin 81 mg [...] direct detection a (more content not included)... [facility] NURSNOTEon 04-04-2023 NURSNOTE Pt discharged home w ith by car [facility] 30on 04-03-2023 30 The patient is Moder [...] monitored and maintained or improved Outcome: Progressing [facility] HPon 04-03-2023 HP H&P reviewed. The jordon [...] she is brought today for the procedure. [facility] MRSA/MSSA DNA NASALon 2022 MRSA DNA Negative Normal Negative [facility] Comment on above: Order Comment: [...] preclude nasal colonization. Performed By: #### L [id number] ####[facility] ([facility])[address] [place] [address] MSSA DNA Negative Normal Negative [facility] Comment on above: Order Comment: [...] preclude nasal colonization. Performed By: #### L [id number] ####[facility] ([facility])[address] [place] [address] NURSNOTEon 04-03-2023 NURSNOTE Report called to Kameron hay RN. He denies questions/concerns. Normal [facility] TYPE AND SCREENon 04-03-2023 AB SCREEN Negative Normal [facility] Comment on above: Performed By: #### L [id number] #### [facility] ([facility]) [address] [place] [address] ABO group Nom (Bld) B Normal [facility] Comment on above: Performed By: #### L [id number] #### [facility] ([facility]) [address] [place] [address] RH TYPE IN BLOOD Positive Normal [facility] Comment on above: Performed By: #### L [id number] #### [facility] ([facility]) [address] [place] [address] Orders Onlyon 03-22-2023 Orders Only [id number] Trisha Parish 1945 F Date Provider Department [place] 03/22/2023 MARGARET COLLINS [facility] No family history on file Normal [facility] HPon 2023 [facility] Cardiology - [facility] Subjective Trisha Parish is a 78 [...] In September 2022 she was admitted to [facility] with weakness. She was found to have [...] carvedilol (Co (more content not included)... Normal [facility] Office Visiton 2023 Follow-up visit [id number] Trisha Parish 1945 F Date Provider Department Center 2023 Carla-TOÑO [facility] No family history on file Level of Service:13470 OR OFFICE/OUTPATIENT ESTABLISHED HIGH MDM 40-54 MIN [facility] ANESon 02-23-2023 ANES ----- ----- Attestation signed [...] 02/23/23 1030 Procedure: TRANSESOPHAGEAL ECHO (ELENA) Location: [facility] Heart and Vascular Center Vascular Lab Clinical [...] consented to blood products. Additional Equipment Requests [facility] HPon 02-23-2023 HP ----- ----- Attestation signed [...] there are no changes to the H&P. [facility] NURSNOTEon 02-23-2023 NURSNOTE Pt performed and pas sed bedside swallow study test. RN educated pt on d/c instructions. RN encouraged pt to voice any questions or concerns. Pt verbalizes no questions or concerns at this time. Pt was wheeled off of unit with all of belongings. [facility] HPon 02-21-2023 Cardiology Clinic No te Subjective [...] renal failure syndrome (CMS/HCC) Anemia Atrial fibrillation ([facility]/HCC) Benign hypertensive renal disease Carotid artery stenosis Cerebrovascular accident (CMS/HCC) Coronary arteriosclerosis Essential hypertension Hypertensive disorder Hyperparathyroidism due to renal insufficiency (CMS/HCC) Breast CA ([facility]/HCC) Malignant neoplasm of female breast ([facility]/HCC) Proteinuria Stage 3 chronic kidney disease ([facility]/HCC) Stage 4 chronic kidney disease ([facility]/HCC) Type 2 diabetes mellitus ([facility]/HCC) Vitamin D deficiency 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 Social History Tobacco Use Smoking status: Never Smokeless tobacco: Never Substance Use Topics Alcohol use: Never Drug use: Never Update: 02/21/2023 She was hospitalized at [facility] for 3 days after presenting with [...] other elevated She was hospitalized 02/04-02/07/23 at [facility] and underwent coronary angiography and right heart [...] mouth in the morning., Disp: , Rfl: [employer] Stephy 2 Sensor kit, , Disp: , [...] 6.44 02/06 (more content not included)... Normal [facility] Office Visiton 02-21-2023 Follow-up visit [id number] Trisha Parish 1945 F Date Provider Department Center 02/21/2023 [id number] PIÑA [facility] No family history on file Level of Service:96726 OR OFFICE/OUTPATIENT ESTABLISHED MOD MDM 30-39 MIN Reason for Visit and Comments: Follow-up [166772] - Pt discharge from hospital 02/20/23 for high potassium , dizziness [facility] Basic Metabolic Panelon 02-03 Anion gap [Moles/Vol] 10.7 mmol/L Normal 6.0-15.0 [facility] Comment on above: Performed By: #### B MP ####[facility] [address] Calcium [Mass/Vol] 8.4 mg/dL Low 8.6-10.3 [facility] Comment on above: Performed By: #### B MP ####[facility] [place] [id number] [facility] Chloride [Moles/Vol] 109 mmol/L High 98-107 [facility] Comment on above: Performed By: #### B MP ####[facility] [place] [id number] [facility] CO2 [Moles/Vol] 22.7 mmol/L Normal 21.0-31.0 [facility] Comment on above: Performed By: #### B MP ####[place] [id number] [facility] Creatinine [Mass/Vol] 1.68 mg/dL High 0.60-1.20 [facility] Comment on above: Performed By: #### B MP ####[place] [id number] [facility] Creatinine Clr Calc Pharmacy 24.22 Normal [facility] Comment on above: Result Comment: PERF ORMED BY: [facility] [address] [place] [id number] PATHOLOGIST SHEAR SCRAPMAN MELISSA QUINN M.D. Performed By: #### B MP ####[address] GFR/1.73 sq M.predicted MDRD (S/P/Bld) [Vol rate/Area] 31.134 mL/min/{1.73_m2} Normal [facility] Comment on above: Performed By: #### B MP ####[place] [id number] [facility] Glucose [Mass/Vol] 94 mg/dL Normal 70-100 [facility] Comment on above: Result Comment: [place] Glucose Reference Range is dependent on time and content of last meal. Glucose of more than 200 mg/dL in a nonstressed, ambulatory subject supports the diagnosis of Diabetes Mellitus. ADA recommended reference range Performed By: #### B MP ####[place] [id number] [facility] Potassium [Moles/Vol] 4.4 mmol/L Normal 3.5-5.1 [facility] Comment on above: Performed By: #### B MP ####[place] [id number] [facility] Sodium [Moles/Vol] 138 mmol/L Normal 136-145 [facility] Comment on above: Performed By: #### B MP ####[address] [place] [address] [facility] Urea nitrogen [Mass/Vol] 34 mg/dL High 7-25 [facility] Comment on above: Performed By: #### B MP ####[facility] Nuh[address] Glucose Poct Glucometerson 0 02-20-2023 Glucose [Mass/Vol] 92 mg/dL Normal [facility] Comment on above: Result Comment: [place] Glucose Reference Range is dependent on time and content of last meal. Glucose of more than 200 mg/dL in a nonstressed, ambulatory subject supports the diagnosis of Diabetes Mellitus. PERFORMED BY: [place] [address] PATHOLOGIST SHEAR SCRAPMAN MELISSA QUINN M.D. Performed By: #### G LORENZO ####Point of Care testing, Basic Metabolic Panelon 02-03 Anion gap [Moles/Vol] 9.8 mmol/L Normal 6.0-15.0 [facility] Comment on above: Performed By: #### B MP #### [facility] Ctr [address] [place] [address] Calcium [Mass/Vol] 8.4 mg/dL Low 8.6-10.3 [facility] Comment on above: Performed By: #### B MP #### [facility] Ctr [address] [place] [address] Chloride [Moles/Vol] 108 mmol/L High 98-107 [facility] Comment on above: Performed By: #### B MP #### [facility] Ctr [address] [place] [address] [place] CO2 [Moles/Vol] 25.3 mmol/L Normal 21.0-31.0 [facility] Comment on above: Performed By: #### B MP #### [facility] [address] Creatinine [Mass/Vol] 1.62 mg/dL High 0.60-1.20 [facility] Comment on above: Performed By: #### B MP #### [place] [address] [place] Creatinine Clr Calc Pharmacy 25.11 Normal [facility] Comment on above: Result Comment: PERF ORMED BY: [address] [place] [address] PATHOLOGIST SHEAR SCRAPMAN MELISSA QUINN M.D. Performed By: #### B MP #### [place] [address] [place] GFR/1.73 sq M.predicted MDRD (S/P/Bld) [Vol rate/Area] 32.523 mL/min/{1.73_m2} Normal [facility] Comment on above: Performed By: #### B MP #### [address] Glucose [Mass/Vol] 91 mg/dL Normal 70-100 [facility] Comment on above: Result Comment: [place] om Glucose Reference Range is dependent on time and content of last meal. Glucose of more than 200 mg/dL in a nonstressed, ambulatory subject supports the diagnosis of Diabetes Mellitus. ADA recommended reference range Performed By: #### B MP #### [place] [address] [place] Potassium [Moles/Vol] 4.1 mmol/L Normal 3.5-5.1 [facility] Comment on above: Performed By: #### B MP #### [place] [address] [place] Sodium [Moles/Vol] 139 mmol/L Normal 136-145 [facility] Comment on above: Performed By: #### B MP #### [facility] Ctr [address] [place] [address] [place] Urea nitrogen [Mass/Vol] 34 mg/dL High 7-25 [facility] Comment on above: Performed By: #### B MP #### [facility] Ctr [address] [place] [address] [place] Glucose Poct Glucometerson 0 02-19-2023 Glucose [Mass/Vol] 143 mg/dL Normal [facility] Comment on above: Result Comment: [place] om Glucose Reference Range is dependent on time and content of last meal. Glucose of more than 200 mg/dL in a nonstressed, ambulatory subject supports the diagnosis of Diabetes Mellitus. PERFORMED BY: [address] [address] PATHOLOGIST SHEAR SCRAPMAN MELISSA QUINN M.D. Performed By: #### G LULS #### Point of Care testing , Glucose [Mass/Vol] 101 mg/dL Normal [facility] Comment on above: Result Comment: [facility] Glucose Reference Range is dependent on time and content of last meal. Glucose of more than 200 mg/dL in a nonstressed, ambulatory subject supports the diagnosis of Diabetes Mellitus. PERFORMED BY: [address] [address] PATHOLOGIST SHEAR SCRAPMAN MELISSA QUINN M.D. Performed By: #### G LULS #### Point of Care testing , US renal BIon 02-19-2023 US renal BI [facility] Main [place] [address] [place] [address] Ultrasound Report Signed Patient: Trisha Parish MR#: [id number] : 1945 Acct:[id number] Age/Sex: 77 / F ADM Date: 02/17/23 Loc: Room: [address] [place] [address] Type: ADM IN Attending Dr: Mikel Mir MD Ordering Provider: Mikel Mir MD Date of Service: 02/19/23 US/US renal BI: JASMIN r/o [place] or obstruction Copies to: Mikel Mir MD [...] Quintanilla Jr., D.O.02/19/2023 3:58 PM Dictation Location: [address]: Jenna Corado Transcribed By: LETITIA 02/19/231557 Dictated By: Baldo Quintanilla Jr, 02/19/231556 Signed By: 02/19/231557 Normal [facility] Coagulation Profileon 2022 aPTT Coag (Bld) [Time] 31.5 s Normal 25.1-36.5 [facility] Comment on above: Result Comment: PERF ORMED BY: [facility] [address] [place] [id number] PATHOLOGIST SHEAR SCRAPMAN MELISSA QUINN M.D. Performed By: #### C MP, MG, PP, CBCNO ####[place] [id number] [facility] INR Coag (PPP) [Relative time] 1.3 {INR} [facility] Comment on above: Result Comment: INR Therapeutic [...] By: #### C MP, MG, PP, CBCNO ####[place] [id number] [facility] PT Coag (PPP) [Time] 15.2 s High 9.0-12.9 [facility] Comment on above: Performed By: #### C MP, MG, PP, CBCNO ####[address] [address] [facility] Comprehensive Metabolic Pane otto 02-18-2023 Albumin [Mass/Vol] 3.5 g/dL Normal 3.5-5.7 [facility] Comment on above: Performed By: #### C MP, MG, PP, CBCNO ####[address] [address] [facility] Albumin/Globulin [Mass ratio] 1.3 {ratio} Normal [facility] Comment on above: Performed By: #### C MP, MG, PP, CBCNO ####[address] [address] [facility] ALP [Catalytic activity/Vol] 83 U/L Normal 34-104 [facility] Comment on above: Performed By: #### C MP, MG, PP, CBCNO ####[place] [id number] [facility] ALT [Catalytic activity/Vol] 13 U/L Normal 7-52 [facility] Comment on above: Performed By: #### C MP, MG, PP, CBCNO ####[place] [id number] [facility] Anion gap [Moles/Vol] 11.0 mmol/L Normal 6.0-15.0 [facility] Comment on above: Performed By: #### C MP, MG, PP, CBCNO ####[place] [phone] [facility] AST [Catalytic activity/Vol] 16 U/L Normal 13-39 [facility] Comment on above: Performed By: #### C MP, MG, PP, CBCNO ####[place] [id number] [facility] Bilirubin [Mass/Vol] 0.7 mg/dL Normal 0.3-1.0 [facility] Comment on above: Performed By: #### C MP, MG, PP, CBCNO ####[place] [phone] [facility] Calcium [Mass/Vol] 8.4 mg/dL Low 8.6-10.3 [facility] Comment on above: Performed By: #### C MP, MG, PP, CBCNO ####[place] [phone] [facility] Chloride [Moles/Vol] 108 mmol/L High 98-107 [facility] Comment on above: Performed By: #### C MP, MG, PP, CBCNO ####[place] [phone] [facility] CO2 [Moles/Vol] 24.4 mmol/L Normal 21.0-31.0 [facility] Comment on above: Performed By: #### C MP, MG, PP, CBCNO ####[address] Creatinine [Mass/Vol] 1.91 mg/dL High 0.60-1.20 [facility] Comment on above: Performed By: #### C MP, MG, PP, CBCNO ####[address] Creatinine Clr Calc Pharmacy 21.30 [facility] Comment on above: Performed By: #### C MP, MG, PP, CBCNO ####[place] [id number] [address] GFR/1.73 sq M.predicted MDRD (S/P/Bld) [Vol rate/Area] 26.691 mL/min/{1.73_m2} [facility] Comment on above: Performed By: #### C MP, MG, PP, CBCNO ####[address] Globulin (S) [Mass/Vol] 2.7 g/dL [facility] Comment on above: Performed By: #### C MP, MG, PP, CBCNO ####[address] Glucose [Mass/Vol] 92 mg/dL Normal 70-100 [facility] Comment on above: Result Comment: [place] Glucose Reference Range is dependent on time and content of last meal. Glucose of more than 200 mg/dL in a nonstressed, ambulatory subject supports the diagnosis of Diabetes Mellitus. ADA recommended reference range Performed By: #### C MP, MG, PP, CBCNO ####[address] Potassium [Moles/Vol] 4.4 mmol/L Normal 3.5-5.1 [facility] Comment on above: Performed By: #### C MP, MG, PP, CBCNO ####[address] [place] [address] [place] Protein [Mass/Vol] 6.2 g/dL Low 6.4-8.9 [facility] Comment on above: Performed By: #### C MP, MG, PP, CBCNO ####[facility] [id number] Sodium [Moles/Vol] 139 mmol/L Normal 136-145 [facility] Comment on above: Performed By: #### C MP, MG, PP, CBCNO ####[facility] [address] [place] [address] Urea nitrogen [Mass/Vol] 35 mg/dL High 7- [facility] Comment on above: Performed By: #### C MP, MG, PP, CBCNO ####[facility] [address] [place] [address] [place] Dipstick and Microscopicon 0 02-18-2023 Appearance (U) Clear Normal Clear [facility] Comment on above: Order Comment: Name Collection Type:: Clean-Voided Midstream Performed By: #### A DDONUAPLUS, CUU #### [facility] Ctr [address] [place] [address] [place] Bacteria,Urine None Seen Normal None Seen [facility] Comment on above: Order Comment: Name Collection Type:: Clean-Voided Midstream Performed By: #### A DDONUAPLUS, CUU #### [facility] Ctr [address] [place] [address] [place] Bilirubin,Urine Negative Normal Negative [facility] Comment on above: Order Comment: Name Collection Type:: Clean-Voided Midstream Performed By: #### A DDONUAPLUS, CUU #### [facility] Ctr [address] [place] [address] [place] Color (U) Yellow Normal Yellow [facility] Comment on above: Order Comment: Name Collection Type:: Clean-Voided Midstream Performed By: #### A DDONUAPLUS, CUU #### [facility] Ctr [address] [place] [address] [place] Glucose Ql (U) Normal Normal Normal [facility] Comment on above: Order Comment: Name Collection Type:: Clean-Voided Midstream Performed By: #### A DDONUAPLUS, CUU #### [address] Hyaline Casts,Urine None Seen Normal 0-8 [facility] Comment on above: Order Comment: Name Collection Type:: Clean-Voided Midstream Result Comment: PERF ORMED BY: [place] [address] PATHOLOGIST SHEAR SCRAPMAN MELISSA QUINN M.D. Performed By: #### A DDONUAPLUS, CUU #### [address] Ketones Ql (U) Negative Normal Negative [facility] Comment on above: Order Comment: Name Collection Type:: Clean-Voided Midstream Performed By: #### A DDONUAPLUS, CUU #### [address] Leukocyte esterase Test strip Ql (U) 3+ High Negative [facility] Comment on above: Order Comment: Name Collection Type:: Clean-Voided Midstream Performed By: #### A DDONUAPLUS, CUU #### [place] [address] [place] Nitrite,Urine Negative Normal Negative [facility] Comment on above: Order Comment: Name Collection Type:: Clean-Voided Midstream Performed By: #### A DDONUAPLUS, CUU #### [place] [address] [place] Occult Blood,Urine Negative Normal Negative [facility] Comment on above: Order Comment: Name Collection Type:: Clean-Voided Midstream Result Comment: PERF ORMED BY: [place] [address] PATHOLOGIST SHEAR SCRAPMAN MELISSA QUINN M.D. Performed By: #### A DDONUAPLUS, CUU #### [place] [address] [place] pH (U) 7.5 [pH] Normal 5.0-9.0 [facility] Comment on above: Order Comment: Name Collection Type:: Clean-Voided Midstream Performed By: #### A DDONUAPLUS, CUU #### [facility] Ctr [address] [place] [address] Protein,Urine Negative Normal Negative [facility] Comment on above: Order Comment: Name Collection Type:: Clean-Voided Midstream Performed By: #### A DDONUAPLUS, CUU #### [facility] Ctr [address] [place] [address] RBC LM.HPF (Urine sed) [#/Area] 0 /[HPF] Normal 0-4 [facility] Comment on above: Order Comment: Name Collection Type:: Clean-Voided Midstream Performed By: #### A DDONUAPLUS, CUU #### [address] Specificy [place],Urine 1.006 Normal 1.001-1.030 [facility] Comment on above: Order Comment: Name Collection Type:: Clean-Voided Midstream Performed By: #### A DDONUAPLUS, CUU #### [address] Squamous Epithelial Cell,Urine None Seen Normal 0-2 [facility] Comment on above: Order Comment: Name Collection Type:: Clean-Voided Midstream Performed By: #### A DDONUAPLUS, CUU #### [facility] Ctr [address] [place] [address] Urobilinogen,Urine Normal Normal Normal [facility] Comment on above: Order Comment: Name Collection Type:: Clean-Voided Midstream Performed By: #### A DDONUAPLUS, CUU #### [facility] Ctr [address] [place] [address] [place] WBC,Urine 5-9 High 0-4 [facility] Comment on above: Order Comment: Name Collection Type:: Clean-Voided Midstream Performed By: #### A DDONUAPLUS, CUU #### [address] ECG 12 lead ECGon 02-18-2023 ECG 12 lead ECG [facility] [place] [address] [place], [place] [id number] Electrocardiograph Report Signed Patient: Trisha Parish MR#: [id number] : 1945 Acct:[id number] Age/Sex: 77 / F ADM Date: 02/17/23 Loc: Room: [address] [place] [address] Type: ADM IN Attending Dr: Kevin Mejia [...] Nessa Abdi MD 0 02/18/23 1047 Normal [facility] Glucose Poct Glucometerson 0 02-18-2023 Glucose [Mass/Vol] 94 mg/dL Normal [facility] Comment on above: Result Comment: [facility] Glucose Reference Range is dependent on time and content of last meal. Glucose of more than 200 mg/dL in a nonstressed, ambulatory subject supports the diagnosis of Diabetes Mellitus. PERFORMED BY: [place] [address] PATHOLOGIST SHEAR SCRAPMAN MELISSA QUINN M.D. Performed By: #### G LULS #### Point of Care testing , Glucose [Mass/Vol] 194 mg/dL Normal [facility] Comment on above: Result Comment: [facility] Glucose Reference Range is dependent on time and content of last meal. Glucose of more than 200 mg/dL in a nonstressed, ambulatory subject supports the diagnosis of Diabetes Mellitus. PERFORMED BY: [place] [address] PATHOLOGIST SHEAR SCRAPMAN MELISSA QUINN M.D. Performed By: #### G LORENZO #### Point of Care testing , Hemogram CBC Without Diffon 02-18-2023 Erythrocyte distribution width (RBC) [Ratio] 14.4 % Normal 11.9-15.3 [facility] Comment on above: Performed By: #### C MP, MG, PP, CBCNO #### [address] Hematocrit (Bld) [Volume fraction] 32.7 % Low 34.0-46.4 [facility] Comment on above: Performed By: #### C MP, MG, PP, CBCNO #### [address] Hemoglobin (Bld) [Mass/Vol] 10.8 g/dL Low 11.8-15.4 [facility] Comment on above: Performed By: #### C MP, MG, PP, CBCNO #### [address] MCH (RBC) [Entitic mass] 28.8 pg Normal 24.7-34.3 [facility] Comment on above: Performed By: #### C MP, MG, PP, CBCNO #### [address] MCV (RBC) [Entitic vol] 87.0 fL Normal 80-100 [facility] Comment on above: Performed By: #### C MP, MG, PP, CBCNO #### [address] Mean Corpuscular HGB Conc 33.1 g/dL Normal 32.0-35.0 [facility] Comment on above: Performed By: #### C MP, MG, PP, CBCNO #### [address] Platelet mean volume (Bld) [Entitic vol] 10.2 fL Normal 6.3-10.7 [facility] Comment on above: Result Comment: PERF ORMED BY: [facility] [address] [place] [address] PATHOLOGIST SHEAR SCRAPMAN MELISSA QUINN M.D. Performed By: #### C MP, MG, PP, CBCNO #### [facility] Ctr [address] Platelets (Bld) [#/Vol] 185 10*3/uL Normal 150-450 [facility] Comment on above: Performed By: #### C MP, MG, PP, CBCNO #### [facility] C[facility] [address] RBC (Bld) [#/Vol] 3.76 10*6/uL Normal 3.60-5.00 [facility] Comment on above: Performed By: #### C MP, MG, PP, CBCNO #### [facility] C[facility] [address] WBC (Bld) [#/Vol] 7.2 10*3/uL Normal 3.8-11.6 [facility] Comment on above: Performed By: #### C MP, MG, PP, CBCNO #### [facility] C[facility] [address] Magnesiumon 02-18-2023 Magnesium [Mass/Vol] 1.9 mg/dL Normal 1.9-2.7 [facility] Comment on above: Result Comment: PERF ORMED BY: [facility] [address] [place] [address] PATHOLOGIST SHEAR SCRAPMAN MELISSA QUINN M.D. Performed By: #### C MP, MG, PP, CBCNO ####[facility] [id number] [address] Troponin I High Sensitivityo n 02-18-2023 Troponin I High Sensitivity 55.0 pg/mL Off scale high 0.0-15.0 [facility] Comment on above: Result Comment: Crit ical Result : Called to and read back by: ROYAL DAILY at: 02/18/2023 07:39:39 by:[id number] PERFORMED BY: [place] [address] PATHOLOGIST SHEAR SCRAPMAN MELISSA QUINN M.D. Performed By: #### H S TROP #### [facility] Ctr [address] [place], [place] [id number] [facility] Urine Cultureon 02-18-2023 Bacteria identified Cx Nom (U) >100,000 colonies/ml mixed bacterial skin contaminants 2 Days PERFORMED BY: [place] [address] PATHOLOGIST SHEAR SCRAPMAN MELISSA QUINN M.D. Normal [facility] Comment on above: Performed By: #### A DDONLIZZY, CUU #### [facility] Ctr [address] [place] [address] Telephoneon 02-16-2023 Telephone [id number] Trisha Parish 1945 F Date Provider Department Center 02/16/2023 WILY ASHLEY [facility] No family history on file [facility] Orders Onlyon 02-09-2023 Orders Only [id number] Trisha Parish 1945 F Date Provider Department Center 02/09/2023 MARGARET COLLINS [facility] No family history on file [facility] 30on 02-07-2023 30 The patient is Moder ately Stable - Low risk of patient condition declining or worsening The patient's goals for the shift include comfort The clinical goals for the shift include VSS Over the shift, the patient did not make progress toward the following goals. Barriers to progression include . Recommendations to address these barriers include . Normal [facility] 30 The patient is Moder ately Stable - Low risk of patient condition declining or worsening The patient's goals for the shift include comfort, rest The clinical goals for the shift include stable Over the shift, the patient did not make progress toward the following goals. Barriers to progression include . Recommendations to address these barriers include . Normal [facility] BASIC METABOLIC PANELon 070 Anion gap [Moles/Vol] 10 mmol/L Normal - [facility] Comment on above: Performed By: #### L [id number] ####[facility] ([facility])[address] [place] [address] Calcium [Mass/Vol] 8.6 mg/dL Normal 8.6-10.3 [facility] Comment on above: Performed By: #### L [id number] ####[facility] ([facility])[address] [place] [address] Chloride [Moles/Vol] 109 mmol/L High 98-107 [facility] Comment on above: Performed By: #### L [id number] ####[facility] [place] [address] CO2 [Moles/Vol] 25 mmol/L Normal 21-31 [facility] Comment on above: Performed By: #### L [id number] ####[facility] [place] [address] Creatinine [Mass/Vol] 1.40 mg/dL High 0.60-1.20 [facility] Comment on above: Performed By: #### L [id number] ####[facility] ([facility])[address] [place] [address] GLOMERULAR FILTRATION RATE ML/MIN/1.73 SQ M.PREDICTED 38.7 mL/min/1.73m*2 Low >60.0 [facility] Comment on above: Result Comment: The [facility]???s estimated glomerular filtration rate (eGFR) [...] of individuals. Performed By: #### L [id number] ####[facility] [place] [address] Glucose [Mass/Vol] 115 mg/dL High 70-100 [facility] Comment on above: Performed By: #### L [id number] ####[facility] ([facility])[address] [place] [address] Potassium [Moles/Vol] 3.9 mmol/L Normal 3.5-5.1 [facility] Comment on above: Performed By: #### L [id number] ####[facility] ([facility])[address] [place] [address] Sodium [Moles/Vol] 140 mmol/L Normal 136-145 [facility] Comment on above: Performed By: #### L [id number] ####[facility] ([facility])[address] [place] [address] Urea nitrogen [Mass/Vol] 32 mg/dL High 7-25 [facility] Comment on above: Performed By: #### L [id number] ####[facility] ([facility])[address] [place] [address] UREA NITROGEN/CREATININE (MASS RATIO) IN SER/PLAS 22.9 Normal [facility] Comment on above: Performed By: #### L [id number] ####[facility] ([facility])[address] [place] [address] MAGNESIUMon 02-07-2023 Magnesium [Mass/Vol] 2.0 mg/dL Normal 1.9-2.7 [facility] Comment on above: Performed By: #### L [id number] #### [facility] ([facility]) [address] [place] [address] BASIC METABOLIC PANELon 07-0 Anion gap [Moles/Vol] 10 mmol/L Normal 7-20 [facility] Comment on above: Performed By: #### L [id number] #### [facility] ([facility]) [address] [place] [address] Calcium [Mass/Vol] 8.6 mg/dL Normal 8.6-10.3 [facility] Comment on above: Performed By: #### L [id number] #### [facility] [address] [place] [address] Chloride [Moles/Vol] 109 mmol/L High 98-107 [facility] Comment on above: Performed By: #### L [id number] #### [facility] ([facility]) [address] [place] [address] CO2 [Moles/Vol] 25 mmol/L Normal 21-31 [facility] Comment on above: Performed By: #### L [id number] #### [facility] ([facility]) [address] [place] [address] Creatinine [Mass/Vol] 1.32 mg/dL High 0.60-1.20 [facility] Comment on above: Performed By: #### L [id number] #### [facility] ([facility]) [address] [place] [address] GLOMERULAR FILTRATION RATE ML/MIN/1.73 SQ M.PREDICTED 41.6 mL/min/1.73m*2 Low >60.0 [facility] Comment on above: Result Comment: The [facility]???s estimated glomerular filtration rate (eGFR) [...] group of individuals. Performed By: #### L [id number] #### [facility] ([facility]) [address] [place] [address] Glucose [Mass/Vol] 142 mg/dL High 70-100 [facility] Comment on above: Performed By: #### L [id number] #### [facility] ([facility]) [address] [place] [address] Potassium [Moles/Vol] 3.8 mmol/L Normal 3.5-5.1 [facility] Comment on above: Performed By: #### L [id number] #### [facility] [address] [place] [address] Sodium [Moles/Vol] 140 mmol/L Normal 136-145 [facility] Comment on above: Performed By: #### L [id number] #### [facility] [address] [place] [address] Urea nitrogen [Mass/Vol] 31 mg/dL High 7-25 [facility] Comment on above: Performed By: #### L [id number] #### [facility] ([facility]) [address] [place] [address] UREA NITROGEN/CREATININE (MASS RATIO) IN SER/PLAS 23.5 Normal [facility] Comment on above: Performed By: #### L [id number] #### [facility] ([facility]) [address] [place] [address] CBCon 02-06-2023 Erythrocyte distribution width (RBC) [Ratio] 14.1 % Normal 11.5-15.0 [facility] Comment on above: Performed By: #### L [id number] #### [facility] ([facility]) [address] [place] [address] ERYTHROCYTE MEAN CORPUSCULAR HEMOGLOBIN CONCENTRATION (G/DL) BY AUTOMATED 33.6 g/dL Normal 32.0-35.0 [facility] Comment on above: Performed By: #### L [id number] #### [facility] ([facility]) [address] [place] [address] Hematocrit (Bld) [Volume fraction] 33.3 % Low 36.0-48.0 [facility] Comment on above: Performed By: #### L [id number] #### [facility] [address] [place] [address] Hemoglobin (Bld) [Mass/Vol] 11.2 g/dL Low 12.0-15.0 [facility] Comment on above: Performed By: #### L [id number] #### [facility] ([facility]) [address] [place] [address] MCH (RBC) [Entitic mass] 29.3 pg Normal 27.0-33.0 [facility] Comment on above: Performed By: #### L [id number] #### [facility] ([facility]) [address] [place] [address] MCV (RBC) [Entitic vol] 87.2 fL Normal 82.0-98.0 [facility] Comment on above: Performed By: #### L [id number] #### [facility] ([facility]) [address] [place] [address] PLATELETS (10*3/UL) IN BLOOD AUTOMATED COUNT 152 10*3/uL Normal 150-400 [facility] Comment on above: Performed By: #### L [id number] #### [facility] ([facility]) [address] [place] [address] RBC (Bld) [#/Vol] 3.82 10*6/uL Normal 3.80-5.00 [facility] Comment on above: Performed By: #### L [id number] #### [facility] ([facility]) [address] [place] [address] WBC (Bld) [#/Vol] 6.44 10*3/uL Normal 4.00-10.60 [facility] Comment on above: Performed By: #### L [id number] #### [facility] ([facility]) [address] [facility] [address] CONSULTon 02-06-2023 CONSULT Inpatient consult to Cardiothoracic [...] per patient for which she saw her dispatcher bus and trolley Dr. Soto- medications were adjusted and pacemaker [...] has a past medical history of A-fib ([facility]), Cancer ([facility]), Coronary artery disease, Hypertension, Myocardial infarct ([facility]), and Stroke ([facility]). Surgical History She has a past [...] is not (more content not included)... Normal [facility] MAGNESIUMon 02-06-2023 Magnesium [Mass/Vol] 1.7 mg/dL Low 1.9-2.7 [facility] Comment on above: Performed By: #### L [id number] #### [facility] ([facility]) [address] [place] [address] 30on 02-05-2023 30 The patient is Moder [...] and maintained or improved Outcome: Progressing Normal [facility] 30 Daily Case Managemen t [...] PT Recommendations: OT Recommendations: New Consults: Normal [facility] 30 Problem: Pain - Adul [...] Flowsheets (Taken 02/05/2023745) Free from fall injury: [place] fall precautions as indicated by assessment Educate [...] goals for the shift include vss Normal [facility] 30 The patient is Moder ately Stable - Low risk of patient condition declining or worsening The patient's goals for the shift include comfort The clinical goals for the shift include vss Normal [facility] BASIC METABOLIC PANELon 07-0 Anion gap [Moles/Vol] 12 mmol/L Normal 7-20 [facility] Comment on above: Performed By: #### L [id number] #### [facility] ([facility]) [address] [place] [address] Calcium [Mass/Vol] 8.8 mg/dL Normal 8.6-10.3 [facility] Comment on above: Performed By: #### L [id number] #### [facility] (BEAKER) [address] [place] [address] Chloride [Moles/Vol] 107 mmol/L Normal 98-107 [facility] Comment on above: Performed By: #### L [id number] #### [facility] (BEAKER) [address] [place] [address] CO2 [Moles/Vol] 25 mmol/L Normal 21-31 [facility] Comment on above: Performed By: #### L [id number] #### [facility] ([facility]) [address] [place] [address] Creatinine [Mass/Vol] 1.18 mg/dL Normal 0.60-1.20 [facility] Comment on above: Performed By: #### L [id number] #### [facility] ([facility]) [address] [place] [address] GLOMERULAR FILTRATION RATE ML/MIN/1.73 SQ M.PREDICTED 47.6 mL/min/1.73m*2 Low >60.0 [facility] Comment on above: Result Comment: The [facility]???s estimated glomerular filtration rate (eGFR) [...] individuals. Performed By: #### L [id number] #### [facility] ([facility]) [address] [place] [address] Glucose [Mass/Vol] 99 mg/dL Normal 70-100 [facility] Comment on above: Performed By: #### L [id number] #### [facility] ([facility]) [address] [place] [address] Potassium [Moles/Vol] 3.8 mmol/L Normal 3.5-5.1 [facility] Comment on above: Performed By: #### L [id number] #### [facility] ([facility]) [address] [place] [address] Sodium [Moles/Vol] 140 mmol/L Normal 136-145 [facility] Comment on above: Performed By: #### L [id number] #### [facility] ([facility]) [address] [place] [address] Urea nitrogen [Mass/Vol] 28 mg/dL High 7-25 [facility] Comment on above: Performed By: #### L [id number] #### [facility] [address] [place] [address] UREA NITROGEN/CREATININE (MASS RATIO) IN SER/PLAS 23.7 Normal [facility] Comment on above: Performed By: #### L [id number] #### [facility] [address] [place] [address] Anion gap [Moles/Vol] 12 mmol/L Normal 7-20 [facility] Comment on above: Performed By: #### L [id number] #### [facility] [address] [place] [address] Calcium [Mass/Vol] 9.0 mg/dL Normal 8.6-10.3 [facility] Comment on above: Performed By: #### L [id number] #### [facility] [address] [place] [address] Chloride [Moles/Vol] 107 mmol/L Normal 98-107 [facility] Comment on above: Performed By: #### L [id number] #### [facility] [address] [place] [address] CO2 [Moles/Vol] 23 mmol/L Normal 21-31 [facility] Comment on above: Performed By: #### L [id number] #### [facility] [address] [place] [address] Creatinine [Mass/Vol] 1.12 mg/dL Normal 0.60-1.20 [facility] Comment on above: Performed By: #### L [id number] #### [facility] [address] [place] [address] GLOMERULAR FILTRATION RATE ML/MIN/1.73 SQ M.PREDICTED 50.6 mL/min/1.73m*2 Low >60.0 [facility] Comment on above: Result Comment: The [facility]???s estimated glomerular filtration rate (eGFR) [...] individuals. Performed By: #### L [id number] #### [facility] ([facility]) [address] [place] [address] Glucose [Mass/Vol] 121 mg/dL High 70-100 [facility] Comment on above: Performed By: #### L [id number] #### [facility] ([facility]) [address] [place] [address] Potassium [Moles/Vol] 3.8 mmol/L Normal 3.5-5.1 [facility] Comment on above: Performed By: #### L [id number] #### [facility] ([facility]) [address] [place] [address] Sodium [Moles/Vol] 138 mmol/L Normal 136-145 [facility] Comment on above: Performed By: #### L [id number] #### [facility] ([facility]) [address] [place] [address] Urea nitrogen [Mass/Vol] 28 mg/dL High 7-25 [facility] Comment on above: Performed By: #### L [id number] #### [facility] ([facility]) [address] [place] [address] UREA NITROGEN/CREATININE (MASS RATIO) IN SER/PLAS 25.0 Normal [facility] Comment on above: Performed By: #### L [id number] #### [facility] ([facility]) [address] [place] [address] CBC WITH AUTO DIFFERENTIALon 02-05-2023 Basophils (Bld) [#/Vol] 0.03 10*3/uL Normal 0.00-0.20 [facility] Comment on above: Performed By: #### L [id number] #### [facility] (BEAKER) [address] [place] [address] Basophils/100 WBC (Bld) 0.4 % Normal 0.0-1.0 [facility] Comment on above: Performed By: #### L [id number] #### [facility] [address] [place] [address] Eosinophils (Bld) [#/Vol] 0.65 10*3/uL High 0.00-0.50 [facility] Comment on above: Performed By: #### L [id number] #### [facility] ([facility]) [address] [place] [address] Eosinophils/100 WBC (Bld) 8.6 % High 0.0-6.0 [facility] Comment on above: Performed By: #### L [id number] #### [facility] ([facility] [address] [place] [address] Erythrocyte distribution width (RBC) [Ratio] 14.1 % Normal 11.5-15.0 [facility] Comment on above: Performed By: #### L [id number] #### [facility] [address] [place] [address] ERYTHROCYTE MEAN CORPUSCULAR HEMOGLOBIN CONCENTRATION (G/DL) BY AUTOMATED 33.1 g/dL Normal 32.0-35.0 [facility] Comment on above: Performed By: #### L [id number] #### [facility] [address] [place] [address] Hematocrit (Bld) [Volume fraction] 37.5 % Normal 36.0-48.0 [facility] Comment on above: Performed By: #### L [id number] #### [facility] (BEAKER) [address] [place] [address] Hemoglobin (Bld) [Mass/Vol] 12.4 g/dL Normal 12.0-15.0 [facility] Comment on above: Performed By: #### L [id number] #### [facility] ([facility]) [address] [place] [address] Immature granulocytes (Bld) [#/Vol] 0.02 10*3/uL Normal 0.00-0.20 [facility] Comment on above: Performed By: #### L [id number] #### [facility] ([facility]) [address] [place] [address] Immature granulocytes/100 WBC (Bld) 0.3 % Normal 0.0-1.0 [facility] Comment on above: Performed By: #### L [id number] #### [facility] ([facility]) [address] [place] [address] Lymphocytes (Bld) [#/Vol] 1.46 10*3/uL Normal 1.20-4.00 [facility] Comment on above: Performed By: #### L [id number] #### [facility] ([facility]) [address] [place] [address] Lymphocytes/100 WBC (Bld) 19.3 % Low 20.0-45.0 [facility] Comment on above: Performed By: #### L [id number] #### [facility] ([facility]) [address] [place] [address] MCH (RBC) [Entitic mass] 28.8 pg Normal 27.0-33.0 [facility] Comment on above: Performed By: #### L [id number] #### [facility] ([facility]) [address] [place] [address] MCV (RBC) [Entitic vol] 87.0 fL Normal 82.0-98.0 [facility] Comment on above: Performed By: #### L [id number] #### [facility] ([facility]) [address] [place] [address] Monocytes (Bld) [#/Vol] 0.69 10*3/uL Normal 0.10-1.00 [facility] Comment on above: Performed By: #### L [id number] #### [facility] ([facility]) [address] [address] Monocytes/100 WBC (Bld) 9.1 % Normal 5.0-12.0 [facility] Comment on above: Performed By: #### L [id number] #### [facility] ([facility]) [address] [address] Neutrophils (Bld) [#/Vol] 4.73 10*3/uL Normal 1.60-7.60 [facility] Comment on above: Performed By: #### L [id number] #### [facility] ([facility]) [address] [address] Neutrophils/100 WBC (Bld) 62.3 % Normal 40.0-72.0 [facility] Comment on above: Performed By: #### L [id number] #### [facility] ([facility]) [address] [address] NRBC (PER 100 WBCS) BY AUTOMATED COUNT 0.0 % Normal 0 [facility] Comment on above: Performed By: #### L [id number] #### [facility] ([facility]) [address] [address] PLATELETS (10*3/UL) IN BLOOD AUTOMATED COUNT 175 10*3/uL Normal 150-400 [facility] Comment on above: Performed By: #### L [id number] #### [facility] ([facility]) [address] [address] RBC (Bld) [#/Vol] 4.31 10*6/uL Normal 3.80-5.00 [facility] Comment on above: Performed By: #### L [id number] #### [facility] ([facility]) [address] [address] WBC (Bld) [#/Vol] 7.58 10*3/uL Normal 4.00-10.60 [facility] Comment on above: Performed By: #### L [id number] #### [facility] MARIELENA) [address] [address] CONSULTon 02-05-2023 CONSULT ----- ----- Attestation signed [...] The patient is very high risk. ----- [place] [facility] Consult Note Reason for visit: near-syncope [...] no lightheadedness, (more content not included)... Normal [facility] HEPATIC FUNCTION PANELon Albumin [Mass/Vol] 3.8 g/dL Normal 3.5-5.7 [facility] Comment on above: Performed By: #### L [id number] #### [facility] (BEAKER) [address] [place] [address] ALP [Catalytic activity/Vol] 92 U/L Normal 34-104 [facility] Comment on above: Performed By: #### L [id number] #### [facility] (BEAKER) [address] [place] [address] ALT [Catalytic activity/Vol] 11 U/L Normal 7-52 [facility] Comment on above: Performed By: #### L [id number] #### [facility] [address] [place] [address] AST [Catalytic activity/Vol] 23 U/L Normal 13-39 [facility] Comment on above: Performed By: #### L [id number] #### [facility] [address] [place] [address] Bilirubin [Mass/Vol] 0.8 mg/dL Normal 0.3-1.0 [facility] Comment on above: Performed By: #### L [id number] #### [facility] ([facility]) [address] [place] [address] Magnesium [Mass/Vol] 0.1 mg/dL Normal 0-0.2 [facility] Comment on above: Performed By: #### L [id number] #### [facility] ([facility]) [address] [place] [address] Protein [Mass/Vol] 6.5 g/dL Normal 6.0-8.3 [facility] Comment on above: Performed By: #### L [id number] #### [facility] ([facility]) [address] [place] [address] HPon 02-05-2023 H&P reviewed. The pa tient was examined and there are no changes to the H&P. [facility] H&P reviewed. The pa tient was examined and there are no changes to the H&P. [facility] HP ----- ----- Attestation signed by Matilda [...] The patient is very high risk. ----- [place] [facility] Consult Note Reason for visit: near-syncope [...] PMH: Past Medical History: Diagnosis Date A-fib ([facility]) Cancer ([facility]) Coronary artery disease Hypertension Myocardial infarct ([facility]) Stroke ([facility]) PSH: Past Surgical History: Procedure Laterality [...] no lightheadedness, (more content not included)... Normal [facility] MAGNESIUMon 02-05-2023 Magnesium [Mass/Vol] 1.4 mg/dL Low 1.9-2.7 [facility] Comment on above: Performed By: #### L [id number] #### [facility] (BEAKER) [address] [place] [address] TROPONIN Ion 02-05-2023 Troponin I.cardiac [Mass/Vol] 0.25 ng/mL Critically high 0.00-0.04 [facility] Comment on above: Result Comment: M-OR EVIOUS CRITICAL RESULT Previous result verified on 02/05/2023 0550 on specimen/case [id number] called with component Troponin I for procedure Troponin I with value 0.21 ng/mL. Performed By: #### L [id number] ####[facility] (BEAKER)[address] [place] [address] Troponin I.cardiac [Mass/Vol] 0.21 ng/mL Critically high 0.00-0.04 [facility] Comment on above: Result Comment: M-OR EVIOUS CRITICAL RESULT Previous result verified on 02/05/2023 0053 on specimen/case [id number] called with component Troponin I for procedure Troponin I with value 0.27 ng/mL. Performed By: #### L [id number] #### [facility] (BETiggly) [address] [place] [address] Troponin I.cardiac [Mass/Vol] 0.27 ng/mL Critically high 0.00-0.04 [facility] Comment on above: Result Comment: ShreeRYDER ROSENTHAL INITIAL CRITICAL HIGH; RESPUN AND RETESTED Performed By: #### L [id number] #### [facility] ([facility]) [address] [place] [address] HPon 01-23-2023 [facility] Electrophysiology Consult Note Reason for visit: s/p PPM for AV block, AF s/p cryomaze HPI: Trisha Parish is a 77 y.o. 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 She was recently admitted to [facility] for weakness, suspected to have a stroke [...] stroke who presented with generalized weakness to [facility]. At [facility], EKG demonstarted a 2:1 AV block with prolonged OR interval 266. Chest x-ray demonstrated possible trace [...] heart rate 59. Patient was transferred to [facility] for further evaluation by cardiology. She was [...] tablet anastrozole (more content not included)... Normal [facility] Office Visiton 01-23-2023 Follow-up visit [id number] Trisha Parish E 1945 F Date Provider Department Center 01/23/2023 DOE FUENTES [facility] No family history on file Level of Service:51306 OR OFFICE/OUTPATIENT NEW MODERATE MDM 45-59 MINUTES Reason for Visit and Comments: Follow-up [847881] - 3 month follow up [facility] Office Visiton 01-17-2023 Follow-up visit [id number] JemTrisha gary E 1945 F Date Provider Department Center 01/17/2023 TOÑO SIMPSON [facility] No family history on file Level of Service:97434 OR OFFICE/OUTPATIENT ESTABLISHED MOD MDM 30-39 MIN Reason for Visit and Comments: Valve Disorder [3372] Atrial Fibrillation [80] Coronary Artery Disease [187] Normal [facility] PTH INTACTon 10-07-2022 PTH, Intact 45 pg/mL Normal 15-65 [facility] Comment on above: Performed By: #### P T, PTT #### [facility] [address] [address] [address] Madisyn Bentley Office Visiton 10-06-2022 Follow-up visit [id number] Trisha Parish 1945 F Date Provider Department Center 10/06/2022 120-CORAL, MIKAYLA [facility] No family history on file Level of Service:48720 OR OFFICE/OUTPATIENT ESTABLISHED LOW MDM 20-29 MIN Reason for Visit and Comments: Hypertension [398178] Normal [facility] RENAL FUNCTION PANELon 10-06 Albumin [Mass/Vol] 3.3 g/dL Critically low 3.4-5.0 [facility] Comment on above: Performed By: #### R ENAL #### [facility] [address] [place] [address] Dr. Madisyn Bentley Calcium [Mass/Vol] 8.2 mg/dL Critically low 8.5-10.1 [facility] Comment on above: Performed By: #### R ENAL #### [facility] [address] [address] [address] Madisyn Bentley Chloride [Moles/Vol] 110 mmol/L Critically high 98-107 [facility] Comment on above: Performed By: #### R ENAL #### [facility] [address] [address] [address] Madisyn Bentley CO2 [Moles/Vol] 22.2 mmol/L Normal 21.0-32.0 [facility] Comment on above: Performed By: #### R ENAL #### [facility] [address] [address] [address] Madisyn Bentley Creatinine [Mass/Vol] 1.36 mg/dL Critically high 0.55-1.02 [facility] Comment on above: Performed By: #### R ENAL #### [facility] [address] [address] [address] Madisyn Bentley EGFR-AF MALDIVIAN 46 mL/min/1.73m2 Critically low >=60 [facility] Comment on above: Performed By: #### R ENAL #### [facility] [address] [address] [address] Madisyn Bentley EGFR-NON AF MALDIVIAN 38 mL/min/1.73m2 Critically low >=60 [facility] Comment on above: Performed By: #### R ENAL #### [facility] [address] [address] [address] Madisyn Bentley Glucose [Mass/Vol] 145 mg/dL Critically high 74-106 [facility] Comment on above: Performed By: #### R ENAL #### [facility] [address] [address] [address] Madisyn Bentley Phosphate [Mass/Vol] 2.7 mg/dL Normal 2.6-4.7 [facility] Comment on above: Performed By: #### R ENAL #### [facility] [address] [address] [address] Madisyn Bentley Potassium [Moles/Vol] 3.9 mmol/L Normal 3.5-5.1 [facility] Comment on above: Performed By: #### R ENAL #### [facility] [address] [address] [address] Madisyn Bentley Sodium [Moles/Vol] 143 mmol/L Normal 136-145 [facility] Comment on above: Performed By: #### R ENAL #### [facility] [address] [address] [address] Madisyn Bentley Urea nitrogen [Mass/Vol] 24.0 mg/dL Critically high 7.0-18.0 [facility] Comment on above: Performed By: #### R ENAL #### [facility] [address] [address] [address] Madisyn Bentley UA RANDOMon 10-06-2022 Bilirubin Ql (U) Negative Normal NEGATIVE [facility] Comment on above: Performed By: #### R ENAL #### [facility] [address] [address] [address] Madisyn Bentley Clarity (U) CLEAR Normal CLEAR [facility] Comment on above: Performed By: #### R ENAL #### [facility] [address] [place] [address] Dr. Madisyn Bentley Color (U) LT. YELLOW Normal YELLOW [facility] Comment on above: Performed By: #### R ENAL #### [facility] [address] [place] [address] Dr. Madisyn Bentley Glucose Ql (U) Negative Normal NEGATIVE [facility] Comment on above: Performed By: #### R ENAL #### [facility] [address] [place] [address] Dr. Madisyn Bentley Hemoglobin Ql (U) Negative Normal NEGATIVE [facility] Comment on above: Performed By: #### R ENAL #### [facility] [address] [place] [address] Dr. Madisyn Bentley Ketones Ql (U) Negative Normal NEGATIVE [facility] Comment on above: Performed By: #### R ENAL #### [facility] [address] [place] [address] Dr. Madisyn Bentley LEUKOCYTES SMALL Abnormal NEGATIVE [facility] Comment on above: Performed By: #### R ENAL #### [facility] [address] [place] [address] Dr. Madisyn Bentley Nitrite Ql (U) Negative Normal NEGATIVE [facility] Comment on above: Performed By: #### R ENAL #### [facility] [address] [place] [address] Dr. Madisyn Bentley pH (U) 5.5 [pH] Normal 5-9 [facility] Comment on above: Performed By: #### R ENAL #### [facility] [address] [place] [address] Dr. Madisyn Bentley SPEC GRAVITY 1.020 Normal 1.005-<=1.02 5 [facility] Comment on above: Performed By: #### R ENAL #### [facility] [address] [place] [address] Dr. Madisyn Bentley UA PROTEIN TRACE Normal NEGATIVE/ TRACE [facility] Comment on above: Performed By: #### R ENAL #### [facility] [address] [place] [address] Dr. Madisyn Bentley Urobilinogen Qn (U) 0.2 {Luis Eduardo'U}/dL Normal 0.2 - 1. 0 [facility] Comment on above: Performed By: #### R ENAL #### [facility] [address] [address] [address] Madisyn Bentley URINE T PROTEIN CREAT RATIOo n 10-06-2022 Protein (U) [Mass/Vol] 47.8 mg/dL Critically high <=12.0 [facility] Comment on above: Performed By: #### U [id number] #### [facility] [address] [address] [address] Madisyn Bentley UR PROT CREAT RAT 0.26 Normal [facility] Comment on above: Performed By: #### U RTPCR #### [facility] [address] [place] [address] Dr. Madisyn Bentley URINE CREAT 186.22 mg/dL Normal 20.00-300.00 [facility] Comment on above: Performed By: #### U RTPCR #### [facility] [address] [place] [address] Dr. Madisyn Bentley Office Visiton 09-20-2022 Follow-up visit [id number] Trisha Parish 1945 F Date Provider Department Center 09/20/2022 Khoi-PRECIOUS MONREAL [facility] No family history on file Level of Service:88287 OR OFFICE/OUTPATIENT ESTABLISHED LOW MDM 20-29 MIN Normal [facility] CBC WITH AUTO DIFFERENTIALon 09-12-2022 Basophils (Bld) [#/Vol] 0.03 10*3/uL Normal 0.00-0.20 [facility] Comment on above: Performed By: #### L [id number] #### [facility] ([facility]) [address] [place] [address] Basophils/100 WBC (Bld) 0.3 % Normal 0.0-1.0 [facility] Comment on above: Performed By: #### L [id number] #### [facility] ([facility]) [address] [place] [address] Eosinophils (Bld) [#/Vol] 0.21 10*3/uL Normal 0.00-0.50 [facility] Comment on above: Performed By: #### L [id number] #### [facility] ([facility]) [address] [place] [address] Eosinophils/100 WBC (Bld) 2.3 % Normal 0.0-6.0 [facility] Comment on above: Performed By: #### L [id number] #### [facility] [address] [place] [address] Erythrocyte distribution width (RBC) [Ratio] 13.3 % Normal 11.5-15.0 [facility] Comment on above: Performed By: #### L [id number] #### [facility] ([facility]) [address] [place] [address] ERYTHROCYTE MEAN CORPUSCULAR HEMOGLOBIN CONCENTRATION (G/DL) BY AUTOMATED 33.4 g/dL Normal 32.0-35.0 [facility] Comment on above: Performed By: #### L [id number] #### [facility] ([facility]) [address] [place] [address] Hematocrit (Bld) [Volume fraction] 29.0 % Low 36.0-48.0 [facility] Comment on above: Performed By: #### L [id number] #### [facility] ([facility]) [address] [place] [address] Hemoglobin (Bld) [Mass/Vol] 9.7 g/dL Low 12.0-15.0 [facility] Comment on above: Performed By: #### L [id number] #### [facility] ([facility]) [address] [place] [address] Immature granulocytes (Bld) [#/Vol] 0.02 10*3/uL Normal 0.00-0.20 [facility] Comment on above: Performed By: #### L [id number] #### [facility] ([facility]) [address] [place] [address] Immature granulocytes/100 WBC (Bld) 0.2 % Normal 0.0-1.0 [facility] Comment on above: Performed By: #### L [id number] #### [facility] ([facility]) [address] [place] [address] Lymphocytes (Bld) [#/Vol] 1.24 10*3/uL Normal 1.20-4.00 [facility] Comment on above: Performed By: #### L [id number] #### [facility] ([facility]) [address] [place] [address] Lymphocytes/100 WBC (Bld) 13.6 % Low 20.0-45.0 [facility] Comment on above: Performed By: #### L [id number] #### [facility] ([facility]) [address] [place] [address] MCH (RBC) [Entitic mass] 30.4 pg Normal 27.0-33.0 [facility] Comment on above: Performed By: #### L [id number] #### [facility] ([facility]) [address] [place] [address] MCV (RBC) [Entitic vol] 90.9 fL Normal 82.0-98.0 [facility] Comment on above: Performed By: #### L [id number] #### [facility] ([facility]) [address] [place] [address] Monocytes (Bld) [#/Vol] 0.68 10*3/uL Normal 0.10-1.00 [facility] Comment on above: Performed By: #### L [id number] #### [facility] ([facility]) [address] [place] [address] Monocytes/100 WBC (Bld) 7.5 % Normal 5.0-12.0 [facility] Comment on above: Performed By: #### L [id number] #### [facility] ([facility]) [address] [place] [address] Neutrophils (Bld) [#/Vol] 6.93 10*3/uL Normal 1.60-7.60 [facility] Comment on above: Performed By: #### L [id number] #### [facility] ([facility]) [address] [place] [address] Neutrophils/100 WBC (Bld) 76.1 % High 40.0-72.0 [facility] Comment on above: Performed By: #### L [id number] #### [facility] ([facility]) [address] [place] [address] NRBC (PER 100 WBCS) BY AUTOMATED COUNT 0.0 % Normal 0.0-0.0 [facility] Comment on above: Performed By: #### L [id number] #### [facility] ([facility]) [address] [place] [address] PLATELETS (10*3/UL) IN BLOOD AUTOMATED COUNT 175 10*3/uL Normal 150-400 [facility] Comment on above: Performed By: #### L [id number] #### [facility] ([facility]) [address] [place] [address] RBC (Bld) [#/Vol] 3.19 10*6/uL Low 3.80-5.00 [facility] Comment on above: Performed By: #### L [id number] #### [facility] ([facility]) [address] [place] [address] WBC (Bld) [#/Vol] 9.11 10*3/uL Normal 4.00-10.60 [facility] Comment on above: Performed By: #### L [id number] #### [facility] ([facility]) [address] [place] [address] COMPREHENSIVE METABOLIC PANE Otto 09-12-2022 Albumin [Mass/Vol] 2.9 g/dL Low 3.5-5.7 [facility] Comment on above: Performed By: #### L [id number] ####[facility] [place] [address] ALP [Catalytic activity/Vol] 61 U/L Normal 34-104 [facility] Comment on above: Performed By: #### L [id number] ####[facility] (BEAKER)[address] [place] [address] ALT [Catalytic activity/Vol] 7 U/L Normal 7-52 [facility] Comment on above: Performed By: #### L [id number] ####[facility] ([facility]ER)[address] [place] [address] Anion gap [Moles/Vol] 5 mmol/L Low 7-20 [facility] Comment on above: Performed By: #### L [id number] ####[facility] ([facility]ER)[address] [place] [address] AST [Catalytic activity/Vol] 12 U/L Low 13-39 [facility] Comment on above: Performed By: #### L [id number] ####[facility] ([facility]ER)[address] [place] [address] Bilirubin [Mass/Vol] 0.5 mg/dL Normal 0.3-1.0 [facility] Comment on above: Performed By: #### L [id number] ####[facility] ([facility]ER)[address] [place] [address] Calcium [Mass/Vol] 8.2 mg/dL Low 8.6-10.3 [facility] Comment on above: Performed By: #### L [id number] ####[facility] ([facility]ER)[address] [place] [address] Chloride [Moles/Vol] 109 mmol/L High 98-107 [facility] Comment on above: Performed By: #### L [id number] ####[facility] ([facility])[address] [place] [address] CO2 [Moles/Vol] 22 mmol/L Normal 21-31 [facility] Comment on above: Performed By: #### L [id number] ####[facility] ([facility])[address] [place] [address] Creatinine [Mass/Vol] 1.59 mg/dL High 0.60-1.20 [facility] Comment on above: Performed By: #### L [id number] ####[facility] ([facility] [place] [address] GLOMERULAR FILTRATION RATE ML/MIN/1.73 SQ M.PREDICTED 31.1 mL/min/1.73m*2 Low >60.0 [facility] Comment on above: Result Comment: The [facility]???s estimated glomerular filtration rate (eGFR) [...] of individuals. Performed By: #### L [id number] ####[facility] ([facility])[address] [place] [address] Glucose [Mass/Vol] 80 mg/dL Normal 70-100 [facility] Comment on above: Performed By: #### L [id number] ####[facility] ([facility])[address] [place] [address] Potassium [Moles/Vol] 3.9 mmol/L Normal 3.5-5.1 [facility] Comment on above: Performed By: #### L [id number] ####[facility] ([facility])[address] [place] [address] Protein [Mass/Vol] 5.3 g/dL Low 6.0-8.3 [facility] Comment on above: Performed By: #### L [id number] ####[facility] ([facility] [place] [address] Sodium [Moles/Vol] 136 mmol/L Normal 136-145 [facility] Comment on above: Performed By: #### L [id number] ####[facility] ([facility])[address] [place] [address] Urea nitrogen [Mass/Vol] 37 mg/dL High 7-25 [facility] Comment on above: Performed By: #### L [id number] ####[facility] ([facility])[address] [place] [address] UREA NITROGEN/CREATININE (MASS RATIO) IN SER/PLAS 23.27 Normal [facility] Comment on above: Performed By: #### L [id number] ####[facility] ([facility])[address] [place] [address] DSon 09-12-2022 DS ----- ----- Attestation signed [...] Your Medications These medications were sent to [facility]/pharmacy #[id number] [place] [address] doxycycline 100 mg capsule Activity Patient currently [...] stroke who presented with generalized weakness to [facility]. She presented with 2-day history of exertional shortness of breath and weakness with intermittent palpitations. She stated that her legs felt heavy. She denied any recent changes of medication and illness. Patient states that she does take Plavix daily. She denies any use of anticoagulation. At [facility], EKG demonstarted a 2:1 AV block with prolonged OR interval 266. Chest x-ray demonstrated possible trace [...] heart rate 59. Patient was transferred to [facility] for further evaluation by cardiology. She was [...] RDW 13. (more content not included)... Normal [facility] MAGNESIUMon 09-12-2022 Magnesium [Mass/Vol] 1.9 mg/dL Normal 1.9-2.7 [facility] Comment on above: Performed By: #### L [id number] ####[facility] ([facility]ER)[address] [place] [address] NURSNOTEon 09-12-2022 NURSNOTE Taught patient and h er discharge instructions, when to call doctor, follow up appointments, and medication changes. Normal [facility] PHOSPHORUSon 09-12-2022 Magnesium [Mass/Vol] 3.2 mg/dL Normal 2.5-5.0 [facility] Comment on above: Performed By: #### L [id number] ####[facility] ([facility])[address] [place] [address] POCT GLUCOSE METER UNSOLICIT ED RESULTSon 09-12-2022 Glucose [Mass/Vol] 96 mg/dL Normal 70-105 [facility] Comment on above: Result Comment: aide er2 Performed By: #### L [id number] #### [facility] ([facility]) [address] [place] [address] Glucose [Mass/Vol] 138 mg/dL High 70-105 [facility] Comment on above: Result Comment: chito es Performed By: #### L [id number] #### [facility] ([facility]) [address] [place] [address] APTTon 09-11-2022 ACTIVATED PARTIAL THROMBOPLASTIN TIME IN PPP BY COAGULATION ASSAY 48.0 Seconds High 25.0-35.0 [facility] Comment on above: Performed By: #### L [id number] #### [facility] ([facility]) [address] [place] [address] CBC WITH AUTO DIFFERENTIALon 09-11-2022 Basophils (Bld) [#/Vol] 0.02 10*3/uL Normal 0.00-0.20 [facility] Comment on above: Performed By: #### L [id number] ####[facility] ([facility])[address] [place] [address] Basophils/100 WBC (Bld) 0.3 % Normal 0.0-1.0 [facility] Comment on above: Performed By: #### L [id number] ####[facility] ([facility])[address] [place] [address] Eosinophils (Bld) [#/Vol] 0.12 10*3/uL Normal 0.00-0.50 [facility] Comment on above: Performed By: #### L [id number] ####[facility] ([facility]ER)[address] [place] [address] Eosinophils/100 WBC (Bld) 2.0 % Normal 0.0-6.0 [facility] Comment on above: Performed By: #### L [id number] ####[facility] ([facility]ER)[address] [place] [address] Erythrocyte distribution width (RBC) [Ratio] 13.2 % Normal 11.5-15.0 [facility] Comment on above: Performed By: #### L [id number] ####[facility] ([facility])[address] [place] [address] ERYTHROCYTE MEAN CORPUSCULAR HEMOGLOBIN CONCENTRATION (G/DL) BY AUTOMATED 31.7 g/dL Low 32.0-35.0 [facility] Comment on above: Performed By: #### L [id number] ####[facility] ([facility]ER)[address] [place] [address] Hematocrit (Bld) [Volume fraction] 30.0 % Low 36.0-48.0 [facility] Comment on above: Performed By: #### L [id number] ####[facility] ([facility])[address] [place] [address] Hemoglobin (Bld) [Mass/Vol] 9.5 g/dL Low 12.0-15.0 [facility] Comment on above: Performed By: #### L [id number] ####[facility] ([facility])[address] [place] [address] Immature granulocytes (Bld) [#/Vol] 0.02 10*3/uL Normal 0.00-0.20 [facility] Comment on above: Performed By: #### L [id number] ####[facility] ([facility])[address] [place] [address] Immature granulocytes/100 WBC (Bld) 0.3 % Normal 0.0-1.0 [facility] Comment on above: Performed By: #### L [id number] ####[facility] ([facility])[address] [place] [address] Lymphocytes (Bld) [#/Vol] 1.23 10*3/uL Normal 1.20-4.00 [facility] Comment on above: Performed By: #### L [id number] ####[facility] ([facility]ER)[address] [place] [address] Lymphocytes/100 WBC (Bld) 21.0 % Normal 20.0-45.0 [facility] Comment on above: Performed By: #### L [id number] ####[facility] ([facility])[address] [place] [address] MCH (RBC) [Entitic mass] 29.4 pg Normal 27.0-33.0 [facility] Comment on above: Performed By: #### L [id number] ####[facility] ([facility])[address] [place] [address] MCV (RBC) [Entitic vol] 92.9 fL Normal 82.0-98.0 [facility] Comment on above: Performed By: #### L [id number] ####[facility] ([facility])[address] [place] [address] Monocytes (Bld) [#/Vol] 0.62 10*3/uL Normal 0.10-1.00 [facility] Comment on above: Performed By: #### L [id number] ####[facility] ([facility])[address] [place] [address] Monocytes/100 WBC (Bld) 10.6 % Normal 5.0-12.0 [facility] Comment on above: Performed By: #### L [id number] ####[facility] ([facility])[address] [place] [address] Neutrophils (Bld) [#/Vol] 3.85 10*3/uL Normal 1.60-7.60 [facility] Comment on above: Performed By: #### L [id number] ####[facility] ([facility])[address] [place] [address] Neutrophils/100 WBC (Bld) 65.8 % Normal 40.0-72.0 [facility] Comment on above: Performed By: #### L [id number] ####[facility] ([facility])[address] [place] [address] NRBC (PER 100 WBCS) BY AUTOMATED COUNT 0.0 % Normal 0.0-0.0 [facility] Comment on above: Performed By: #### L [id number] ####[facility] ([facility])[address] [place] [address] PLATELETS (10*3/UL) IN BLOOD AUTOMATED COUNT 165 10*3/uL Normal 150-400 [facility] Comment on above: Performed By: #### L [id number] ####[facility] ([facility])[address] [place] [address] RBC (Bld) [#/Vol] 3.23 10*6/uL Low 3.80-5.00 [facility] Comment on above: Performed By: #### L [id number] ####[facility] ([facility])[address] [place] [address] WBC (Bld) [#/Vol] 5.86 10*3/uL Normal 4.00-10.60 [facility] Comment on above: Performed By: #### L [id number] ####[facility] ([facility])[address] [place] [address] COMPREHENSIVE METABOLIC PANE Otto 09-11-2022 Albumin [Mass/Vol] 3.1 g/dL Low 3.5-5.7 [facility] Comment on above: Performed By: #### L [id number] ####[facility] [place] [address] ALP [Catalytic activity/Vol] 65 U/L Normal 34-104 [facility] Comment on above: Performed By: #### L [id number] ####[facility] [place] [address] ALT [Catalytic activity/Vol] 7 U/L Normal 7-52 [facility] Comment on above: Performed By: #### L [id number] ####[facility] ([facility]ER)[address] [place] [address] Anion gap [Moles/Vol] 7 mmol/L Normal 7-20 [facility] Comment on above: Performed By: #### L [id number] ####[facility] ([facility]ER)[address] [place] [address] AST [Catalytic activity/Vol] 10 U/L Low 13-39 [facility] Comment on above: Performed By: #### L [id number] ####[facility] ([facility]ER)[address] [place] [address] Bilirubin [Mass/Vol] 0.7 mg/dL Normal 0.3-1.0 [facility] Comment on above: Performed By: #### L [id number] ####[facility] (BE[facility]ER)[address] [place] [address] Calcium [Mass/Vol] 8.2 mg/dL Low 8.6-10.3 [facility] Comment on above: Performed By: #### L [id number] ####[facility] ([facility]ER)[address] [place] [address] Chloride [Moles/Vol] 112 mmol/L High 98-107 [facility] Comment on above: Performed By: #### L [id number] ####[facility] ([facility]ER)[address] [place] [address] CO2 [Moles/Vol] 19 mmol/L Low 21-31 [facility] Comment on above: Performed By: #### L [id number] ####[facility] ([facility]ER)[address] [place] [address] Creatinine [Mass/Vol] 1.69 mg/dL High 0.60-1.20 [facility] Comment on above: Performed By: #### L [id number] ####[facility] ([facility]ER)[address] [place] [address] GLOMERULAR FILTRATION RATE ML/MIN/1.73 SQ M.PREDICTED 28.9 mL/min/1.73m*2 Low >60.0 [facility] Comment on above: Result Comment: The [facility]???s estimated glomerular filtration rate (eGFR) [...] of individuals. Performed By: #### L [id number] ####[facility] ([facility])[address] [place] [address] Glucose [Mass/Vol] 106 mg/dL High 70-100 [facility] Comment on above: Performed By: #### L [id number] ####[facility] ([facility])[address] [place] [address] Potassium [Moles/Vol] 3.9 mmol/L Normal 3.5-5.1 [facility] Comment on above: Performed By: #### L [id number] ####[facility] ([facility])[address] [place] [address] Protein [Mass/Vol] 5.5 g/dL Low 6.0-8.3 [facility] Comment on above: Performed By: #### L [id number] ####[facility] ([facility])[address] [address] Sodium [Moles/Vol] 138 mmol/L Normal 136-145 [facility] Comment on above: Performed By: #### L [id number] ####[facility] [place] [address] Urea nitrogen [Mass/Vol] 43 mg/dL High 7-25 [facility] Comment on above: Performed By: #### L [id number] ####[facility] ([facility])[address] [place] [address] UREA NITROGEN/CREATININE (MASS RATIO) IN SER/PLAS 25.44 Normal [facility] Comment on above: Performed By: #### L [id number] ####[facility] ([facility])[address] [place] [address] HPon 09-11-2022 HP H&P reviewed. The jordon mendez was examined and there are no changes to the H&P. Normal [facility] MAGNESIUMon 09-11-2022 Magnesium [Mass/Vol] 2.3 mg/dL Normal 1.9-2.7 [facility] Comment on above: Performed By: #### L [id number] #### [facility] ([facility]) [address] [place] [address] PHOSPHORUSon 09-11-2022 Magnesium [Mass/Vol] 3.3 mg/dL Normal 2.5-5.0 [facility] Comment on above: Performed By: #### L [id number] #### [facility] ([facility]) [address] [place] [address] POCT GLUCOSE METER UNSOLICIT ED RESULTSon 09-11-2022 Glucose [Mass/Vol] 100 mg/dL Normal 70-105 [facility] Comment on above: Result Comment: [email or web address] Performed By: #### L [id number] #### [facility] ([facility]) [address] [place] [address] Glucose [Mass/Vol] 111 mg/dL High 70-105 [facility] Comment on above: Result Comment: [email or web address] Performed By: #### L [id number] #### [facility] ([facility]) [address] [place] [address] Glucose [Mass/Vol] 107 mg/dL High 70-105 [facility] Comment on above: Result Comment: [email or web address] Performed By: #### L [id number] #### [facility] ([facility]) [address] [place] [address] PROTIME-INRon 09-11-2022 INR IN PPP BY COAGULATION ASSAY 1.51 High 0.90-1.10 [facility] Comment on above: Result Comment: [...] CHEST 1995;[id number]. Performed By: #### L [id number] ####[facility] [employer])[address] [place] [address] PROTHROMBIN TIME (PT) IN PPP BY COAGULATION ASSAY 18.1 Seconds High 12.3-14.8 [facility] Comment on above: Performed By: #### L [id number] ####[facility] [employer])[address] [place] [address] B-TYPE NATRIURETIC PEPTIDEon 09-10-2022 Natriuretic peptide B (Bld) [Mass/Vol] 1226 pg/mL High 0-100 [facility] Comment on above: Performed By: #### L [id number] #### [facility] ([employer]) [address] [place] [address] BNPon 09-10-2022 Natriuretic peptide B (Bld) [Mass/Vol] 76942.0 pg/mL Critically high <=1,800.0 [facility] Comment on above: Performed By: #### B PHILIPPE, HSTROPN #### [facility] [address] [place] [address] Dr. Madisyn Bentley CBC AUTO DIFFon 09-10-2022 BASO # 0.0 103/ul Normal 0.0-0.1 [facility] Comment on above: Performed By: #### R ENAL #### [facility] [address] [place] [address] Dr. Madisyn Bentley Basophils/100 WBC (Bld) 0.3 % Normal 0.2-2.0 [facility] Comment on above: Performed By: #### R ENAL #### [facility] [address] [place] [address] Dr. Madisyn Bentley EO # 0.3 103/ul Normal 0.0-0.7 [facility] Comment on above: Performed By: #### R ENAL #### [facility] [address] [place] [address] Dr. Madisyn Bentley Eosinophils/100 WBC (Bld) 2.4 % Normal 0.9-7.0 [facility] Comment on above: Performed By: #### R ENAL #### [facility] [address] [place] [address] Dr. Madisyn Bentley Erythrocyte distribution width (RBC) [Ratio] 13.3 % Normal 11.0-15.0 [facility] Comment on above: Performed By: #### R ENAL #### [facility] [address] [place] [address] Dr. Madisyn Bentley Hematocrit (Bld) [Volume fraction] 36.0 % Normal 36.0-48.0 [facility] Comment on above: Performed By: #### R ENAL #### [facility] [address] [place] [address] Dr. Madisyn Bentley Hemoglobin (Bld) [Mass/Vol] 11.2 g/dL Critically low 12.0-16.0 [facility] Comment on above: Performed By: #### R ENAL #### [facility] [address] [place] [address] Dr. Madisyn Bentley IG # 0.02 10e3/ul Normal 0.00-0.03 [facility] Comment on above: Performed By: #### R ENAL #### [facility] [address] [place] [address] Dr. Madisyn Bentley IG % 0.2 % Normal 0.0-0.5 [facility] Comment on above: Performed By: #### R ENAL #### [facility] [address] [address] [address] Madisyn Bentley LYMPH # 1.4 103/ul Normal 1.2-3.8 [facility] Comment on above: Performed By: #### R ENAL #### [facility] [address] [place] [address] Dr. Madisyn Bentley Lymphocytes/100 WBC (Bld) 13.3 % Critically low 20.5-60.0 [facility] Comment on above: Performed By: #### R ENAL #### [facility] [address] [place] [address] Dr. Madisyn Bentley MANUAL DIFF REQ NO Normal [facility] Comment on above: Performed By: #### R ENAL #### [facility] [address] [place] [address] Dr. Madisyn Bentley MCH (RBC) [Entitic mass] 28.9 pg Normal 26.7-34.0 [facility] Comment on above: Performed By: #### R ENAL #### [facility] [address] [place] [address] Dr. Madisyn Bentley MCHC (RBC) [Mass/Vol] 31.1 g/dL Normal 29.9-35.2 [facility] Comment on above: Performed By: #### R ENAL #### [facility] [address] [place] [address] Dr. Madisyn Bentley MCV (RBC) [Entitic vol] 92.8 fL Normal 81.0-99.0 [facility] Comment on above: Performed By: #### R ENAL #### [facility] [address] [place] [address] Dr. Madisyn Bentley MONO # 0.9 103/ul Critically high 0.3-0.8 [facility] Comment on above: Performed By: #### R ENAL #### [facility] [address] [address] [address] Madisyn Bentley Monocytes/100 WBC (Bld) 8.4 % Normal 1.7-12.0 [facility] Comment on above: Performed By: #### R ENAL #### [facility] [address] [address] [address] Madisyn Bentley NEUT # 8.1 103/ul Critically high 1.4-6.5 [facility] Comment on above: Performed By: #### R ENAL #### [facility] [address] [place] [address] Dr. Madisyn Bentley Neutrophils/100 WBC (Bld) 75.4 % Critically high 43.0-75.0 [facility] Comment on above: Performed By: #### R ENAL #### [facility] [address] [place] [address] Dr. Madisyn Bentley Platelet mean volume (Bld) [Entitic vol] 12.8 fL Normal 9.5-13.5 [facility] Comment on above: Performed By: #### R ENAL #### [facility] [address] [place] [address] Dr. Madisyn Bentley PLT 200 103/ul Normal 150-450 [facility] Comment on above: Performed By: #### R ENAL #### [facility] [address] [place] [address] Dr. Madisyn Bentley RBC 3.88 106/ul Critically low 4.20-5.40 [facility] Comment on above: Performed By: #### R ENAL #### [facility] [address] [place] [address] Dr. Madisyn Bentley WBC 10.8 103/ul Normal 4.0-11.0 [facility] Comment on above: Performed By: #### R ENAL #### [facility] [address] [place] [address] Dr. Madisyn Bentley CBC WITH AUTO DIFFERENTIALon 09-10-2022 Basophils (Bld) [#/Vol] 0.03 10*3/uL Normal 0.00-0.20 [facility] Comment on above: Performed By: #### L [id number] ####[facility] ([facility]AK[facility])[address] [place] [address] Basophils/100 WBC (Bld) 0.3 % Normal 0.0-1.0 [facility] Comment on above: Performed By: #### L [id number] ####[facility] ([facility])[address] [place] [address] Eosinophils (Bld) [#/Vol] 0.08 10*3/uL Normal 0.00-0.50 [facility] Comment on above: Performed By: #### L [id number] ####[facility] ([facility])[address] [place] [address] Eosinophils/100 WBC (Bld) 0.8 % Normal 0.0-6.0 [facility] Comment on above: Performed By: #### L [id number] ####[facility] [place] [address] Erythrocyte distribution width (RBC) [Ratio] 13.2 % Normal 11.5-15.0 [facility] Comment on above: Performed By: #### L [id number] ####[facility] ([facility])[address] [place] [address] ERYTHROCYTE MEAN CORPUSCULAR HEMOGLOBIN CONCENTRATION (G/DL) BY AUTOMATED 31.6 g/dL Low 32.0-35.0 [facility] Comment on above: Performed By: #### L [id number] ####[facility] ([facility]AK[facility])[address] [place] [address] Hematocrit (Bld) [Volume fraction] 33.5 % Low 36.0-48.0 [facility] Comment on above: Performed By: #### L [id number] ####[facility] ([facility]AKER)[address] [place] [address] Hemoglobin (Bld) [Mass/Vol] 10.6 g/dL Low 12.0-15.0 [facility] Comment on above: Performed By: #### L [id number] ####[facility] ([facility])[address] [place] [address] Immature granulocytes (Bld) [#/Vol] 0.03 10*3/uL Normal 0.00-0.20 [facility] Comment on above: Performed By: #### L [id number] ####[facility] ([facility])[address] [place] [address] Immature granulocytes/100 WBC (Bld) 0.3 % Normal 0.0-1.0 [facility] Comment on above: Performed By: #### L [id number] ####[facility] ([facility])[address] [place] [address] Lymphocytes (Bld) [#/Vol] 1.12 10*3/uL Low 1.20-4.00 [facility] Comment on above: Performed By: #### L [id number] ####[facility] ([facility]AKER)[address] [place] [address] Lymphocytes/100 WBC (Bld) 11.4 % Low 20.0-45.0 [facility] Comment on above: Performed By: #### L [id number] ####[facility] ([facility]ER)[address] [place] [address] MCH (RBC) [Entitic mass] 28.4 pg Normal 27.0-33.0 [facility] Comment on above: Performed By: #### L [id number] ####[facility] ([facility]AKER)[address] [place] [address] MCV (RBC) [Entitic vol] 89.8 fL Normal 82.0-98.0 [facility] Comment on above: Performed By: #### L [id number] ####[facility] ([facility]AKER)[address] [place] [address] Monocytes (Bld) [#/Vol] 0.90 10*3/uL Normal 0.10-1.00 [facility] Comment on above: Performed By: #### L [id number] ####[facility] ([facility]AKER)[address] [place] [address] Monocytes/100 WBC (Bld) 9.1 % Normal 5.0-12.0 [facility] Comment on above: Performed By: #### L [id number] ####[facility] [place] [address] Neutrophils (Bld) [#/Vol] 7.69 10*3/uL High 1.60-7.60 [facility] Comment on above: Performed By: #### L [id number] ####[facility] ([facility])[address] [place] [address] Neutrophils/100 WBC (Bld) 78.1 % High 40.0-72.0 [facility] Comment on above: Performed By: #### L [id number] ####[facility] ([facility])[address] [place] [address] NRBC (PER 100 WBCS) BY AUTOMATED COUNT 0.0 % Normal 0.0-0.0 [facility] Comment on above: Performed By: #### L [id number] ####[facility] ([facility])[address] [place] [address] PLATELETS (10*3/UL) IN BLOOD AUTOMATED COUNT 204 10*3/uL Normal 150-400 [facility] Comment on above: Performed By: #### L [id number] ####[facility] [place] [address] RBC (Bld) [#/Vol] 3.73 10*6/uL Low 3.80-5.00 [facility] Comment on above: Performed By: #### L [id number] ####[facility] (BEAKER)[address] [place] [address] WBC (Bld) [#/Vol] 9.85 10*3/uL Normal 4.00-10.60 [facility] Comment on above: Performed By: #### L [id number] ####[facility] (BEAKER)[address] [place] [address] COMPREHENSIVE METABOLIC PANE Otto 09-10-2022 Albumin [Mass/Vol] 3.3 g/dL Low 3.5-5.7 [facility] Comment on above: Performed By: #### L [id number] #### [facility] [address] [place] [address] ALP [Catalytic activity/Vol] 75 U/L Normal 34-104 [facility] Comment on above: Performed By: #### L [id number] #### [facility] [address] [place] [address] ALT [Catalytic activity/Vol] 8 U/L Normal 7-52 [facility] Comment on above: Performed By: #### L [id number] #### [facility] ([facility]) [address] [place] [address] Anion gap [Moles/Vol] 9 mmol/L Normal 7-20 [facility] Comment on above: Performed By: #### L [id number] #### [facility] [address] [place] [address] AST [Catalytic activity/Vol] 11 U/L Low 13-39 [facility] Comment on above: Performed By: #### L [id number] #### [facility] [address] [place] [address] Bilirubin [Mass/Vol] 1.0 mg/dL Normal 0.3-1.0 [facility] Comment on above: Performed By: #### L [id number] #### [facility] [address] [place] [address] Calcium [Mass/Vol] 8.3 mg/dL Low 8.6-10.3 [facility] Comment on above: Performed By: #### L [id number] #### [facility] ([facility]) [address] [place] [address] Chloride [Moles/Vol] 106 mmol/L Normal 98-107 [facility] Comment on above: Performed By: #### L [id number] #### [facility] [address] [place] [address] CO2 [Moles/Vol] 18 mmol/L Low 21-31 [facility] Comment on above: Performed By: #### L [id number] #### [facility] ([facility]) [address] [place] [address] Creatinine [Mass/Vol] 1.83 mg/dL High 0.60-1.20 [facility] Comment on above: Performed By: #### L [id number] #### [facility] ([facility]) [address] [place] [address] GLOMERULAR FILTRATION RATE ML/MIN/1.73 SQ M.PREDICTED 26.2 mL/min/1.73m*2 Low >60.0 [facility] Comment on above: Result Comment: The [facility]???s estimated glomerular filtration rate (eGFR) [...] individuals. Performed By: #### L [id number] #### [facility] ([facility]) [address] [place] [address] Glucose [Mass/Vol] 144 mg/dL High 70-100 [facility] Comment on above: Performed By: #### L [id number] #### [facility] ([facility]) [address] [place] [address] Potassium [Moles/Vol] 4.0 mmol/L Normal 3.5-5.1 [facility] Comment on above: Performed By: #### L [id number] #### [facility] [address] [place] [address] Protein [Mass/Vol] 5.9 g/dL Low 6.0-8.3 [facility] Comment on above: Performed By: #### L [id number] #### [facility] ([facility]ER) [address] [place] [address] Sodium [Moles/Vol] 133 mmol/L Low 136-145 [facility] Comment on above: Performed By: #### L [id number] #### [facility] [address] [place] [address] Urea nitrogen [Mass/Vol] 50 mg/dL High 7-25 [facility] Comment on above: Performed By: #### L [id number] #### [facility] ([facility]) [address] [place] [address] UREA NITROGEN/CREATININE (MASS RATIO) IN SER/PLAS 27.32 Normal [facility] Comment on above: Performed By: #### L [id number] #### [facility] ([facility]) [address] [place] [address] CONSULTon 09-10-2022 CONSULT ----- ----- Attestation signed [...] II/Complete HB. She was transferred over from [facility] due to heart rate in the [...] has a past medical history of A-fib ([facility]), Cancer ([facility]), Coronary artery disease, Hypertension, Myocardial infarct ([facility]), and Stroke ([facility]). Surgical History She has a past [...] preserved EF. (more content not included)... Normal [facility] Covid-19 PCR (CVDTB)on SARS-CoV-2 (COVID-19) RNA SUSAN+probe Ql (Unsp spec) Not detected Normal NOT DETECTED [facility] Comment on above: Result Comment: When [...] for this test is supported by the [place] [employer] of [employer] and Human Service's declaration that [...] Performed By: #### P T, PTT #### [facility] [address] [place], [place] [address] Dr. Madisyn Bentley FERRITINon 09-10-2022 FERRITIN (NG/ML) IN SER/PLAS 97.0 ng/mL Normal 11.0-307.0 [facility] Comment on above: Performed By: #### L [id number] #### [facility] ([facility]) [address] [place] [address] FOLATEon 09-10-2022 FOLATE (NG/ML) IN SER/PLAS 9.99 ng/mL Normal 6.6-1000 [facility] Comment on above: Performed By: #### L [id number] ####[facility] (BEAKER)[address] , [place] [address] HEMOGLOBIN A1Con 09-10-2022 Glucose [Mass/Vol] 136.98 mg/dL Normal [facility] Comment on above: Performed By: #### L [id number] ####[facility] (BEAKER)[address] , [place] [address] HbA1c (Bld) [Mass fraction] 6.4 % High 4.0-6.0 [facility] Comment on above: Performed By: #### L [id number] ####[facility] (BEAKER)[address] , [place] [address] HPon 09-10-2022 HP ----- ----- Attestation signed [...] II/Complete HB. She was transferred over from [facility] due to heart rate in the [...] has a past medical history of A-fib ([facility]), Cancer ([facility]), Coronary artery disease, Hypertension, Myocardial infarct ([facility]), and Stroke ([facility]). Surgical History She has a past [...] preserved EF. (more content not included)... Normal [facility] HP ----- ----- Attestation signed [...] - 77 y.o. - 1945 [id number] Date of Admission - 09/10/2022 11:01 AM Chief Complaint Generalized weakness History of Present Illness Trisha Parish is a 77 y.o. female with a past medical history significant for atrial fibrillation status post maze and left atrial appendage clip, coronary artery disease status post CABG, hypertension, stroke who presented with generalized weakness to [facility]. She presented with 2-day history of exertional shortness of breath and weakness with intermittent palpitations. She stated that her legs felt heavy. She denied any recent changes of medication and illness. Patient states that she does take Plavix daily. She denies any use of anticoagulation. At [facility], EKG demonstarted a 2:1 AV block with prolonged OR interval 266. Chest x-ray demonstrated possible trace [...] heart rate 59. Patient was transferred to [facility] for further evaluation by cardiology. On my evaluation, patient denied chest pain shortness of breath, lightheadedness, dizziness. She did state that she continued to feel weak. Patient arrived while on dopamine infusion. However, heart rate was noted to be in the 30s to 40s. PMH: Patient has a past medical history of A-fib ([facility]), Cancer ([facility]), Coronary artery disease, Hypertension, Myocardial infarct ([facility]), and Stroke ([facility]). PSH: Patient has a past surgical [...] which specify (more content not included)... Normal [facility] IRON AND TIBCon 09-10-2022 IRON (UG/DL) IN SER/PLAS 27 ug/dL Low 50-212 [facility] Comment on above: Performed By: #### L [id number] #### [facility] ([facility]ER) [address] [place] [address] IRON BINDING CAPACITY (UG/DL) IN SER/PLAS 203 ug/dL Low 250-450 [facility] Comment on above: Performed By: #### L [id number] #### [facility] ([facility]) [address] [place] [address] IRON BINDING CAPACITY.UNSATURATE D (UG/DL) IN SER/PLAS 176.0 ug/dL Normal 155.0-355.0 [facility] Comment on above: Performed By: #### L [id number] #### [facility] ([facility]ER) [address] [place] [address] IRON SATURATION (%) IN SER/PLAS 13 % Low 20-50 [facility] Comment on above: Performed By: #### L [id number] #### [facility] ([facility]) [address] [place] [address] MAGNESIUMon 09-10-2022 Magnesium [Mass/Vol] 1.6 mg/dL Low 1.9-2.7 [facility] Comment on above: Performed By: #### L [id number] ####[facility] ([facility])[address] [place] [address] PHOSPHORUSon 09-10-2022 Magnesium [Mass/Vol] 3.1 mg/dL Normal 2.5-5.0 [facility] Comment on above: Performed By: #### L [id number] ####[facility] ([facility])[address] [place] [address] POCT GLUCOSE METER UNSOLICIT ED RESULTSon 09-10-2022 Glucose [Mass/Vol] 152 mg/dL High 70-105 [facility] Comment on above: Result Comment: chito mc Performed By: #### L [id number] #### [facility] ([facility]) [address] [place] [address] Glucose [Mass/Vol] 151 mg/dL High 70-105 [facility] Comment on above: Result Comment: kyleigh haider Performed By: #### L [id number] #### [facility] ([facility]) [address] [place] [address] PROF 14(COMP METB)on 023 Albumin [Mass/Vol] 3.0 g/dL Critically low 3.4-5.0 [facility] Comment on above: Performed By: #### R ENAL #### [facility] [address] [address] [address] Madisyn Bentley Albumin/Globulin [Mass ratio] 0.8 {ratio} Normal [facility] Comment on above: Performed By: #### R ENAL #### [facility] [address] [place] [address] [address] Madisyn Bentley ALP [Catalytic activity/Vol] 113 U/L Normal 46-116 [facility] Comment on above: Performed By: #### R ENAL #### [facility] [address] [address] [address] Madisyn Bentley ALT [Catalytic activity/Vol] 15 U/L Normal 14-59 [facility] Comment on above: Performed By: #### R ENAL #### [facility] [address] [place] [address] Dr. Madisyn Bentley Anion gap [Moles/Vol] 16.4 mmol/L Normal [facility] Comment on above: Performed By: #### R ENAL #### [facility] [address] [address] [address] Madisyn Bentley AST [Catalytic activity/Vol] 15 U/L Normal 15-37 [facility] Comment on above: Performed By: #### R ENAL #### [facility] [address] [place] [address] Dr. Madisyn Bentley Bilirubin [Mass/Vol] 0.6 mg/dL Normal 0.2-1.0 [facility] Comment on above: Performed By: #### R ENAL #### [facility] [address] [place] [address] Dr. Madisyn Bentley Calcium [Mass/Vol] 8.6 mg/dL Normal 8.5-10.1 [facility] Comment on above: Performed By: #### R ENAL #### [facility] [address] [place] [address] Dr. Madisyn Bentley Chloride [Moles/Vol] 102 mmol/L Normal 98-107 [facility] Comment on above: Performed By: #### R ENAL #### [facility] Laboratory [address] [place] [address] Dr. Madisyn Bentley CO2 [Moles/Vol] 18.9 mmol/L Critically low 21.0-32.0 [facility] Comment on above: Performed By: #### R ENAL #### [facility] [address] [place] [address] Dr. Madisyn Bentley Creatinine [Mass/Vol] 1.95 mg/dL Critically high 0.55-1.02 [facility] Comment on above: Performed By: #### R ENAL #### [facility] [address] [address] [address] Madisyn Bentley EGFR-AF MALDIVIAN 30 mL/min/1.73m2 Critically low >=60 [facility] Comment on above: Performed By: #### R ENAL #### [facility] [address] [address] [address] Madisyn Bentley EGFR-NON AF MALDIVIAN 25 mL/min/1.73m2 Critically low >=60 [facility] Comment on above: Performed By: #### R ENAL #### [facility] [address] [address] [address] Madisyn Bentley Globulin (S) [Mass/Vol] 3.7 g/dL Normal [facility] Comment on above: Performed By: #### R ENAL #### [facility] [address] [place] [address] Dr. Madisyn Bentley Glucose [Mass/Vol] 190 mg/dL Critically high 74-106 T [facility] Comment on above: Performed By: #### R ENAL #### [facility] [address] [address] [address] Madisyn Bentley Potassium [Moles/Vol] 4.3 mmol/L Normal 3.5-5.1 [facility] Comment on above: Performed By: #### R ENAL #### [facility] [address] [place] [address] Dr. Madisyn Bentley Protein [Mass/Vol] 6.7 g/dL Normal 6.4-8.2 [facility] Comment on above: Performed By: #### R ENAL #### [facility] [address] [address] [address] Madisyn Bentley Sodium [Moles/Vol] 133 mmol/L Critically low 136-145 Th [facility] Comment on above: Performed By: #### R ENAL #### [facility] [address] [address] [address] Madisyn Bentley Urea nitrogen [Mass/Vol] 51.0 mg/dL Critically high 7.0-18.0 [facility] Comment on above: Performed By: #### R ENAL #### [facility] [address] [place] [address] Dr. Madisyn Bentley Urea nitrogen/Creatinine [Mass ratio] 26.2 mg/mg Normal [facility] Comment on above: Performed By: #### R ENAL #### [facility] [address] [place] [address] Dr. Madisyn Bentley PROTIMEon 09-10-2022 INR Coag (PPP) [Relative time] 1.20 {INR} Normal [facility] Comment on above: Performed By: #### P T, PTT #### [facility] [address] [place] [address] Dr. Madisyn Bentley INR GUIDELINES SEE BELOW Normal [facility] Comment on above: Result Comment: ROMY RED INR: 2.0 - 3.0 CONDITIONS NOT LISTED BELOW 2.5 - 3.5 FOR PROSTHETIC HEART VALVE REPLACEMENT 2.5 - 3.5 RECURRENT THROMBOSIS Performed By: #### P T, PTT #### [facility] [address] [place] [address] Dr. Madisyn Bentley PT Coag (PPP) [Time] 12.6 s Critically high 9.0-11.6 [facility] Comment on above: Performed By: #### P T, PTT #### [facility] [address] [place] [address] Dr. Madisyn Bentley PROTIME-INRon 09-10-2022 INR IN PPP BY COAGULATION ASSAY 1.36 High 0.90-1.10 [facility] Comment on above: Result Comment: [...] CHEST 1995;[id number]. Performed By: #### L [id number] ####[facility] ([facility])[address] [place] [address] PROTHROMBIN TIME (PT) IN PPP BY COAGULATION ASSAY 16.6 Seconds High 12.3-14.8 [facility] Comment on above: Performed By: #### L [id number] ####[facility] ([facility])[address] [place] [address] PTTon 09-10-2022 aPTT Coag (Bld) [Time] 36.0 s Normal 22.3-36.2 [facility] Comment on above: Performed By: #### P T, PTT #### [facility] [address] [place] [address] Dr. Madisyn Bentley T4, FREEon 09-10-2022 THYROXINE (T4) FREE (NG/DL) IN SER/PLAS 1.36 ng/dL Normal 0.71-1.85 [facility] Comment on above: Performed By: #### L [id number] ####[facility] ([facility])[address] [place] [address] TROPONIN Ion 09-10-2022 Troponin I.cardiac [Mass/Vol] 0.03 ng/mL Normal 0.00-0.04 [facility] Comment on above: Performed By: #### L [id number] #### [facility] ([facility]) [address] [place] [address] TROPONIN, HIGH SENSITIVITYon 09-10-2022 HSTROP 79.4 pg/mL Critically high 4.0-51.3 [facility] Comment on above: Result Comment: CUT- OFF POINTS HAVE BEEN ESTABLISHED BASED ON THE FOURTH UNIVERSAL DEFINITIONS OF MYOCARDIAL INFARCTION. THE UPPER REFERENCE LIMIT (URL) OF TROPONIN, DEFINED THE 99TH PERCENTILE OF cTnI DISTRIBUTION IN A REFERENCE POPULATION, HAS BEEN CONFIRMED THE DECISION THRESHOLD FOR [place] DIAGNOSIS. Performed By: #### B ARTIFICIAL TEETH INSPECTOR, HSTROPN #### [facility] [address] [address] [address] Madisyn Bentley TSH3 REFLEX TO FT4on 023 THYROTROPIN (MIU/L) IN SER/PLAS BY DETECTION LIMIT <= 0.05 MIU/L 6.40 mIU/L High 0.34-5.60 [facility] Comment on above: Performed By: #### L [id number] #### [facility] ([facility]) [address] [place] [address] VITAMIN B12on 09-10-2022 Cobalamin (Vitamin B12) [Mass/Vol] 177 pg/mL Low 180-914 [facility] Comment on above: Result Comment: REFE RENCE RANGES: 180-914 pg/mL Normal 145-179 pg/mL Indeterminate <145 pg/mL Deficient Performed By: #### L [id number] #### [facility] ([facility]) [address] [place] [address] XR CHEST 1 Von 09-10-2022 XR CHEST [...] Kelli FLANNERY Date: 2022-09-10 04:58 Normal [facility] GLYCOHEMOGLOBIN A1Con 2021 ADA RECOMMENDATION SEE BELOW Normal [facility] Comment on above: Result Comment: ADA RECOMMENDED LIMIT 4.0 - 6.0 ADA THERAPEUTIC TARGET < 7.0 ACTION SUGGESTED > 7.0 Performed By: #### P T, PTT #### [facility] [address] [address] [address] Madisyn Bentley Glucose [Mass/Vol] 186 mg/dL Normal [facility] Comment on above: Performed By: #### P T, PTT #### [facility] [address] [place], [place] [address] Dr. Madisyn Bentley HbA1c (Bld) [Mass fraction] 8.1 % Critically high 4.5-6.2 [facility] Comment on above: Performed By: #### P T, PTT #### [facility] [address] [place], [place] [address] Dr. Madisyn Bentley US THYROIDon 05-24-2022 US [...] by: DIAMOND HILARIO Date: 2022-05-24 12:24 Normal [facility] MG MAMM SCREEN RT 3D CADon 1 MG MAMM SCREEN RT 3D CAD Patient: TRISHA PARISH Exam Date: 05/23/2022 : 1945 Gender:F Ordering : DR SANYA TINEO M.D. Admission #: [id number] Family : Order #: [id number] CLICK HERE TO VIEW EXAM RADIOLOGY REPORT [...] and chemotherapy Family Cancers None LOCATION: [facility] BREAST COMPOSITION: Scattered areas fibroglandular density. [...] Hilario M.D. on 05/23/2022 at 10:38 Normal [facility] XR DEXA BONE DENSITYon 05-23 XR DEXA [...] by: DIAMOND HILARIO Date: 2022-05-23 19:25 Normal [facility] CBC AUTO DIFFon 05-16-2022 BASO # 0.0 103/ul Normal 0.0-0.1 [facility] Comment on above: Performed By: #### C BC #### [facility] [address] [place] [address] Dr. Madisyn Bentley Basophils/100 WBC (Bld) 0.4 % Normal 0.2-2.0 [facility] Comment on above: Performed By: #### C BC #### [facility] [address] [place] [address] Dr. Madisyn Bentley EO # 0.3 103/ul Normal 0.0-0.7 [facility] Comment on above: Performed By: #### C BC #### [facility] [address] [place] [address] Dr. Madisyn Bentley Eosinophils/100 WBC (Bld) 4.5 % Normal 0.9-7.0 [facility] Comment on above: Performed By: #### C BC #### [facility] [address] [place] [address] Dr. Madisyn Bentley Erythrocyte distribution width (RBC) [Ratio] 13.1 % Normal 11.0-15.0 [facility] Comment on above: Performed By: #### C BC #### [facility] [address] [place] [address] Dr. Madisyn Bentley Hematocrit (Bld) [Volume fraction] 37.9 % Normal 36.0-48.0 [facility] Comment on above: Performed By: #### C BC #### [facility] [address] [place] [address] Dr. Madisyn Bentley Hemoglobin (Bld) [Mass/Vol] 12.4 g/dL Normal 12.0-16.0 [facility] Comment on above: Performed By: #### C BC #### [facility] [address] [place] [address] Dr. Madisyn Bentley IG # 0.02 10e3/ul Normal 0.00-0.03 [facility] Comment on above: Performed By: #### C BC #### [facility] [address] [place] [address] Dr. Madisyn Bentley IG % 0.3 % Normal 0.0-0.5 [facility] Comment on above: Performed By: #### C BC #### [facility] [address] [place] [address] Dr. Madisyn Bentley LYMPH # 1.6 103/ul Normal 1.2-3.8 [facility] Comment on above: Performed By: #### C BC #### [facility] [address] [place] [address] Dr. Madisyn Bentley Lymphocytes/100 WBC (Bld) 22.0 % Normal 20.5-60.0 [facility] Comment on above: Performed By: #### C BC #### [facility] [address] [place] [address] Dr. Madisyn Bentley MANUAL DIFF REQ NO Normal [facility] Comment on above: Performed By: #### C BC #### [facility] [address] [place] [address] Dr. Madisyn Bentley MCH (RBC) [Entitic mass] 29.4 pg Normal 26.7-34.0 [facility] Comment on above: Performed By: #### C BC #### [facility] [address] [place] [address] Dr. Madisyn Bentley MCHC (RBC) [Mass/Vol] 32.7 g/dL Normal 29.9-35.2 [facility] Comment on above: Performed By: #### C BC #### [facility] [address] [place] [address] Dr. Madisyn Bentley MCV (RBC) [Entitic vol] 89.8 fL Normal 81.0-99.0 [facility] Comment on above: Performed By: #### C BC #### [facility] [address] [place] [address] Dr. Madisyn Bentley MONO # 0.5 103/ul Normal 0.3-0.8 [facility] Comment on above: Performed By: #### C BC #### [facility] [address] [place] [address] Dr. Madisyn Bentley Monocytes/100 WBC (Bld) 7.3 % Normal 1.7-12.0 [facility] Comment on above: Performed By: #### C BC #### [facility] [address] [place] [address] Dr. Madisyn Bentley NEUT # 4.9 103/ul Normal 1.4-6.5 [facility] Comment on above: Performed By: #### C BC #### [facility] [address] [place] [address] Dr. Madisyn Bentley Neutrophils/100 WBC (Bld) 65.5 % Normal 43.0-75.0 [facility] Comment on above: Performed By: #### C BC #### [facility] [address] [place] [address] Dr. Madisyn Bentley Platelet mean volume (Bld) [Entitic vol] 12.1 fL Normal 9.5-13.5 [facility] Comment on above: Performed By: #### C BC #### [facility] [address] [place] [address] Dr. Madisyn Bentley PLT 171 103/ul Normal 150-450 [facility] Comment on above: Performed By: #### C BC #### [facility] [address] [place] [address] Dr. Madisyn Bentley RBC 4.22 106/ul Normal 4.20-5.40 [facility] Comment on above: Performed By: #### C BC #### [facility] [address] [place] [address] Dr. Madisyn Bentley WBC 7.4 103/ul Normal 4.0-11.0 [facility] Comment on above: Performed By: #### C BC #### [facility] [address] [place] [address] Dr. Madisyn Bentley LIPID PROFILEon 05-16-2022 CHOL-HDL RATIO NORM SEE BELOW Normal [facility] Comment on above: Result Comment: 3.3 - 4.4 LOW RISK 4.4 - 7.1 AVERAGE RISK 7.1 - 11.0 MODERATE RISK >11.0 HIGH RISK Performed By: #### P T, PTT #### [facility] [address] [place] [address] Dr. Madisyn Bentley Cholesterol [Mass/Vol] 132 mg/dL Normal <=200 [facility] Comment on above: Performed By: #### P T, PTT #### [facility] [address] [address] [address] Madisyn eBntley Cholesterol in HDL [Mass/Vol] 44 mg/dL Normal 40-60 [facility] Comment on above: Performed By: #### P T, PTT #### [facility] [address] [address] [address] Madisyn Bentley Cholesterol in LDL [Mass/Vol] 59.6 mg/dL Normal [facility] Comment on above: Performed By: #### P T, PTT #### [facility] [address] [address] [address] Madisyn Bentley Cholesterol.total/C holesterol in HDL [Mass ratio] 3.0 {ratio} Normal [facility] Comment on above: Performed By: #### P T, PTT #### [facility] [address] [address] [address] Madisyn Bentley HDL NORMAL > or = 60 mg/dl - LO W CARDIOVASCULAR RISK <40 mg/dl - HIGH CARDIOVASCULAR RISK Normal [facility] Comment on above: Performed By: #### P T, PTT #### [facility] [address] [address] [address] Madisyn Bentley LDL CALC NORMAL SEE BELOW Normal [facility] Comment on above: Result Comment: <100 mg/dl OPTIMAL 100 - 129 mg/dl NEAR OR ABOVE OPTIMAL 130 - 159 mg/dl BORDERLINE HIGH 160 - 189 mg/dl HIGH >190 mg/dl VERY HIGH Performed By: #### P T, PTT #### [facility] [address] [address] [address] Madisyn Bentley Triglyceride [Mass/Vol] 142 mg/dL Normal <=150 [facility] Comment on above: Performed By: #### P T, PTT #### [facility] [address] [address] [address] Madisyn Bentley VLDL CALC 28.4 mg/dL Normal [facility] Comment on above: Performed By: #### P T, PTT #### [facility] [address] [address] [address] Madisyn Bentley PROF 14(COMP METB)on 022 Albumin [Mass/Vol] 3.8 g/dL Normal 3.4-5.0 [facility] Comment on above: Performed By: #### P T, PTT #### [facility] [address] [address] [address] Madisyn Bentley Albumin/Globulin [Mass ratio] 1.1 {ratio} Normal [facility] Comment on above: Performed By: #### P T, PTT #### [facility] [address] [address] [address] Madisyn Bentley ALP [Catalytic activity/Vol] 158 U/L Critically high 46-116 [facility] Comment on above: Performed By: #### P T, PTT #### [facility] [address] [place] [address] Dr. Madisyn Bentley ALT [Catalytic activity/Vol] 24 U/L Normal 14-59 [facility] Comment on above: Performed By: #### P T, PTT #### [facility] [address] [address] [address] Madisyn Bentley Anion gap [Moles/Vol] 14.1 mmol/L Normal [facility] Comment on above: Performed By: #### P T, PTT #### [facility] [address] [address] [address] Madisyn Bentley AST [Catalytic activity/Vol] 12 U/L Critically low 15-37 [facility] Comment on above: Performed By: #### P T, PTT #### [facility] [address] [address] [address] Madisyn Bentley Bilirubin [Mass/Vol] 0.7 mg/dL Normal 0.2-1.0 [facility] Comment on above: Performed By: #### P T, PTT #### [facility] [address] [address] [address] Madisyn Bentley Calcium [Mass/Vol] 8.9 mg/dL Normal 8.5-10.1 [facility] Comment on above: Performed By: #### P T, PTT #### [facility] [address] [address] [address] Madisyn Bentley Chloride [Moles/Vol] 105 mmol/L Normal 98-107 [facility] Comment on above: Performed By: #### P T, PTT #### [facility] [address] [address] [address] Madisyn Bentley CO2 [Moles/Vol] 23.4 mmol/L Normal 21.0-32.0 [facility] Comment on above: Performed By: #### P T, PTT #### [facility] [address] [address] [address] Madisyn Bentley Creatinine [Mass/Vol] 1.64 mg/dL Critically high 0.55-1.02 [facility] Comment on above: Performed By: #### P T, PTT #### [facility] [address] [address] [address] Madisyn Bentley EGFR-AF MALDIVIAN 37 mL/min/1.73m2 Critically low >=60 [facility] Comment on above: Performed By: #### P T, PTT #### [facility] [address] [address] [address] Madisyn Bentley EGFR-NON AF MALDIVIAN 30 mL/min/1.73m2 Critically low >=60 [facility] Comment on above: Performed By: #### P T, PTT #### [facility] [address] [address] [address] Madisyn Bentley Globulin (S) [Mass/Vol] 3.5 g/dL Normal [facility] Comment on above: Performed By: #### P T, PTT #### [facility] [address] [address] [address] Madisyn Bentley Glucose [Mass/Vol] 222 mg/dL Critically high 74-106 [facility] Comment on above: Performed By: #### P T, PTT #### [facility] [address] [address] [address] Madisyn Bentley Potassium [Moles/Vol] 4.5 mmol/L Normal 3.5-5.1 [facility] Comment on above: Performed By: #### P T, PTT #### [facility] [address] [place] [address] Dr. Madisyn Bentley Protein [Mass/Vol] 7.3 g/dL Normal 6.4-8.2 [facility] Comment on above: Performed By: #### P T, PTT #### [facility] [address] [place] [address] Dr. Madisyn Bentley Sodium [Moles/Vol] 138 mmol/L Normal 136-145 [facility] Comment on above: Performed By: #### P T, PTT #### [facility] [address] [place] [address] Dr. Madisyn Bentley Urea nitrogen [Mass/Vol] 35.0 mg/dL Critically high 7.0-18.0 [facility] Comment on above: Performed By: #### P T, PTT #### [facility] [address] [place] [address] Dr. Madisyn Bentley Urea nitrogen/Creatinine [Mass ratio] 21.3 mg/mg Normal [facility] Comment on above: Performed By: #### P T, PTT #### [facility] [address] [place] [address] Dr. Madisyn Bentley RENAL FUNCTION PANELon 04-07 Albumin [Mass/Vol] 3.5 g/dL Normal 3.4-5.0 [facility] Comment on above: Performed By: #### R ENAL #### [facility] [address] [place] [address] Dr. Madisyn Bentley Calcium [Mass/Vol] 8.1 mg/dL Critically low 8.5-10.1 [facility] Comment on above: Performed By: #### R ENAL #### [facility] [address] [place] [address] Dr. Madisyn Bentley Chloride [Moles/Vol] 110 mmol/L Critically high 98-107 [facility] Comment on above: Performed By: #### R ENAL #### [facility] [address] [place] [address] Dr. Madisyn Bentley CO2 [Moles/Vol] 20.2 mmol/L Critically low 21.0-32.0 [facility] Comment on above: Performed By: #### R ENAL #### [facility] [address] [address] [address] Madisyn Bentley Creatinine [Mass/Vol] 1.89 mg/dL Critically high 0.55-1.02 [facility] Comment on above: Performed By: #### R ENAL #### [facility] [address] [address] [address] Madisyn Bentley EGFR-AF MALDIVIAN 31 mL/min/1.73m2 Critically low >=60 [facility] Comment on above: Performed By: #### R ENAL #### [facility] [address] [place] [address] Dr. Madisyn Bentley EGFR-NON AF MALDIVIAN 26 mL/min/1.73m2 Critically low >=60 [facility] Comment on above: Performed By: #### R ENAL #### [facility] [address] [place] [address] Dr. Madisyn Bentley Glucose [Mass/Vol] 149 mg/dL Critically high 74-106 [facility] Comment on above: Performed By: #### R ENAL #### [facility] [address] [place] [address] Dr. Madisyn Bentley Phosphate [Mass/Vol] 3.4 mg/dL Normal 2.6-4.7 [facility] Comment on above: Performed By: #### R ENAL #### [facility] [address] [place] [address] Dr. Madisyn Bentley Potassium [Moles/Vol] 4.5 mmol/L Normal 3.5-5.1 [facility] Comment on above: Performed By: #### R ENAL #### [facility] [address] [place] [address] Dr. Madisyn Bentley Sodium [Moles/Vol] 141 mmol/L Normal 136-145 [facility] Comment on above: Performed By: #### R ENAL #### [facility] [address] [place] [address] Dr. Madisyn Bentley Urea nitrogen [Mass/Vol] 34.0 mg/dL Critically high 7.0-18.0 [facility] Comment on above: Performed By: #### R ENAL #### [facility] [address] [place] [address] Dr. Madisyn Bentley UA RANDOMon 04-07-2022 Bilirubin Ql (U) Negative Normal NEGATIVE [facility] Comment on above: Performed By: #### U A #### [facility] [address] [place] [address] Dr. Madisyn Bentley Clarity (U) CLEAR Normal CLEAR [facility] Comment on above: Performed By: #### U A #### [facility] [address] [place] [address] Dr. Madisyn Bentley Color (U) LT. YELLOW Normal YELLOW [facility] Comment on above: Performed By: #### U A #### [facility] [address] [place] [address] Dr. Madisyn Bentley Glucose Ql (U) Negative Normal NEGATIVE [facility] Comment on above: Performed By: #### U A #### [facility] [address] [place] [address] Dr. Madisyn Bentley Hemoglobin Ql (U) Negative Normal NEGATIVE [facility] Comment on above: Performed By: #### U A #### [facility] [address] [place] [address] Dr. Madisyn Bentley Ketones Ql (U) Negative Normal NEGATIVE [facility] Comment on above: Performed By: #### U A #### [facility] [address] [place] [address] Dr. Madisyn Bentley LEUKOCYTES TRACE Abnormal NEGATIVE [facility] Comment on above: Performed By: #### U A #### [facility] [address] [place] [address] Dr. Madisyn Bentley Nitrite Ql (U) Negative Normal NEGATIVE [facility] Comment on above: Performed By: #### U A #### [facility] [address] [place] [address] Dr. Madisyn Bentley pH (U) 5.5 [pH] Normal 5-9 [facility] Comment on above: Performed By: #### U A #### [facility] [address] [place] [address] Dr. Madisyn Bentley SPEC GRAVITY 1.020 Normal 1.005-<=1.[address] [place] [address] Comment on above: Performed By: #### U A #### [facility] [address] [place] [address] Dr. Madisyn Bentley UA PROTEIN Negative Normal NEGATIVE/ TRACE [facility] Comment on above: Performed By: #### U A #### [facility] [address] [place] [address] Dr. Madisyn Bentley Urobilinogen Qn (U) 0.2 {Luis Eduardo'U}/dL Normal 0.2 - 1. 0 [facility] Comment on above: Performed By: #### U A #### [facility] [address] [place] [address] Dr. Madisyn Bentley URINE T PROTEIN CREAT RATIOo n 04-07-2022 Protein (U) [Mass/Vol] 25.7 mg/dL Critically high <=12.0 [facility] Comment on above: Performed By: #### P T, PTT #### [facility] [address] [place] [address] Dr. Madisyn Bentley UR PROT CREAT RAT 0.29 Normal [facility] Comment on above: Performed By: #### P T, PTT #### [facility] [address] [place] [address] Dr. Madisyn Bentley URINE CREAT 89.48 mg/dL Normal 20.00-300.00 [facility] Comment on above: Performed By: #### P T, PTT #### [facility] [address] [place] [address] Dr. Madisyn Bentley RENAL FUNCTION PANELon 11-25 Albumin [Mass/Vol] 3.7 g/dL Normal 3.4-5.0 [facility] Comment on above: Performed By: #### R ENAL #### [facility] [address] [place] [address] Dr. Madisyn Bentley Calcium [Mass/Vol] 8.6 mg/dL Normal 8.5-10.1 [facility] Comment on above: Performed By: #### R ENAL #### [facility] [address] [address] [address] Madisyn Bentley Chloride [Moles/Vol] 107 mmol/L Normal 98-107 [facility] Comment on above: Performed By: #### R ENAL #### [facility] [address] [address] [address] Madisyn Bentley CO2 [Moles/Vol] 23.3 mmol/L Normal 22.0-30.0 [facility] Comment on above: Performed By: #### R ENAL #### [facility] [address] [place] [address] Dr. Madisyn Bentley Creatinine [Mass/Vol] 1.56 mg/dL Critically high 0.55-1.02 [facility] Comment on above: Performed By: #### R ENAL #### [facility] [address] [address] [address] Madisyn Bentley EGFR-AF MALDIVIAN 39 mL/min/1.73m2 Critically low >=60 [facility] Comment on above: Performed By: #### R ENAL #### [facility] [address] [place] [address] Dr. Madisyn Bentley EGFR-NON AF MALDIVIAN 32 mL/min/1.73m2 Critically low >=60 [facility] Comment on above: Performed By: #### R ENAL #### [facility] [address] [address] [address] Madisyn Bentley Glucose [Mass/Vol] 106 mg/dL Normal 74-106 [facility] Comment on above: Performed By: #### R ENAL #### [facility] [address] [place] [address] Dr. Madisyn Bentley Phosphate [Mass/Vol] 3.8 mg/dL Normal 2.5-4.5 [facility] Comment on above: Performed By: #### R ENAL #### [facility] [address] [place] [address] Dr. Madisyn Bentley Potassium [Moles/Vol] 4.5 mmol/L Normal 3.4-5.0 [facility] Comment on above: Performed By: #### R ENAL #### [facility] [address] [address] [address] Madisyn Bentley Sodium [Moles/Vol] 141 mmol/L Normal 137-145 [facility] Comment on above: Performed By: #### R ENAL #### [facility] [address] [address] [address] Madisyn Bentley Urea nitrogen [Mass/Vol] 27.0 mg/dL Critically high 7.0-18.0 [facility] Comment on above: Performed By: #### R ENAL #### [facility] [address] [place] [address] Dr. Madisyn Bentley UA RANDOMon 11-25-2021 Bilirubin Ql (U) Negative Normal NEGATIVE [facility] Comment on above: Performed By: #### P T, PTT #### [facility] [address] [place] [address] Dr. Madisyn Bentley Clarity (U) CLEAR Normal CLEAR [facility] Comment on above: Performed By: #### P T, PTT #### [facility] [address] [place] [address] Dr. Madisyn Bentley Color (U) LT. YELLOW Normal YELLOW [facility] Comment on above: Performed By: #### P T, PTT #### [facility] [address] [place] [address] Dr. Madisyn Bentley Glucose Ql (U) Negative Normal NEGATIVE [facility] Comment on above: Performed By: #### P T, PTT #### [facility] [address] [place] [address] Dr. Madisyn Bentley Hemoglobin Ql (U) Negative Normal NEGATIVE [facility] Comment on above: Performed By: #### P T, PTT #### [facility] [address] [place] [address] Dr. Madisyn Bentley Ketones Ql (U) Negative Normal NEGATIVE [facility] Comment on above: Performed By: #### P T, PTT #### [facility] [address] [place] [address] Dr. Madisyn Bentley LEUKOCYTES Negative Normal NEGATIVE [facility] Comment on above: Performed By: #### P T, PTT #### [facility] [address] [place] [address] Dr. aMdisyn Bentley Nitrite Ql (U) Negative Normal NEGATIVE [facility] Comment on above: Performed By: #### P T, PTT #### [facility] [address] [place] [address] Dr. Madisyn Bentley pH (U) 5.5 [pH] Normal 5-9 [facility] Comment on above: Performed By: #### P T, PTT #### [facility] [address] [place] [address] Dr. Madisyn Bentley SPEC GRAVITY 1.015 Normal 1.005-<=1.02 5 [facility] Comment on above: Performed By: #### P T, PTT #### [facility] [address] [place] [address] Dr. Madisyn Bentley UA PROTEIN Negative Normal NEGATIVE/ TRACE [facility] Comment on above: Performed By: #### P T, PTT #### [facility] [address] [place] [address] Dr. Madisyn Bentley Urobilinogen Qn (U) 0.2 {Luis Eduardo'U}/dL Normal 0.2 - 1. 0 [facility] Comment on above: Performed By: #### P T, PTT #### [facility] [address] [place] [address] Dr. Madisyn Bentley URINE T PROTEIN CREAT RATIOo n 11-25-2021 Protein (U) [Mass/Vol] 20.5 mg/dL Critically high <=12.0 [facility] Comment on above: Performed By: #### U RTPCR #### [facility] [address] [place] [address] Dr. Madisyn Bentley UR PROT CREAT RAT 0.25 Normal [facility] Comment on above: Performed By: #### U RTPCR #### [facility] [address] [place] [address] Dr. Madisyn Bentley URINE CREAT 81.12 mg/dL Normal 20.00-300.00 [facility] Comment on above: Performed By: #### U RTPCR #### [facility] [address] [place] [address] Dr. Madisyn Bentley CYTOLOGYon 06-21-2021 CYTOLOGY Specimen #: [id number] Submitting Physician: ABNER WHEELER MD SPECIMEN [...] EYE, VITREOUS FINE NEEDLE ASPIRATE THIN PREP Non-Integrity Director Date of Report: 06/22/2021 Date of Procedure: 06/21/2021 Date of Receipt: 06/22/2021 Submitted by: ABNER WHEELER MD Location: Diagnostic interpretation performed at [facility], [address] [place] [address]. CLIA Number: [id number] Normal [facility] Comment on above: Performed By: #### C #### See report for performing lab information. KACEYOVSPon 04-15-2018 CNOVS Visit (SP) Office (HEMAC[facility]) TRISHA PARISH ([id number]) 1945 FDate Time Provider Department04/15/18 2:15 PM ROXANN ONEAL During your visit today, we recorded the following information about you: Temperature Pulse Respiration Blood pressure 98.2 degrees 66/minute 16/minute 147/69 Weight Height 80.9 kg 1.626 mMINDY OLIVE ONEAL PA-C 04/15/2018 3:44 PM SignedPatient: Trisha Parish [facility] 1945 Attending Physician: Dr. Sadi Sotoate: April [...] of lymph node dissection. The tumor was ER/OR positive,HER-2 positve. Ultimately the patient had to [...] questions or concernsJORDON SHAY-CReferring Provider: SADI WALLACE [[id number]]Allergies As of Date: 04/15/2018(No Known Allergies)Date Reviewed: 04/15/2018Reviewed by: Roxann Oneal - Fully AssessedReason for Visit: Breast Cancer [519] Cmt: follow upPrimary Visit Diagnosis:Malignant neoplasm of left breast in female, estrogen receptor positive, unspecified site of breast (HCC) [C50.912, Z17.0]Order(s):[facility] [[id number]] Order #: [id number] FUTUREDisposition: Return in about 1 year (around [...] Status:Closed by ROXANN ONEAL on 04/15/18 [facility] PROGRESSon 04-15-2018 Protein mass conc HNO ID: [id number] thor: Roxann Smithervice: (none)Author Type: Physician AssistantType: Progress NotesFiled: 04/15/2018 3:44 PMNote Text:Patient: Trisha Parish Location: [facility]: 1945 Attending Physician: Dr. Sadi Nolan: April [...] time of lymph node dissection. The tumor wasER/OR positive, HER-2 positve. Ultimately the patient had [...] with questions or concernsROXANN ONEAL PA-C [facility] MAMM OUTSIDE DICOM IMPORT -N BNRon 04-05-2018 MAMM OUTSIDE DICOM IMPORT -NBNR Images were obtained outside of [facility] [id number] [facility] Vital Signs Date Time Vital Sign Value Performing Clinician Facility 07-17-2023 11:00-0500 Body height 153.67 cm Sanya Tineo Other [email or web address] Other 07-17-2023 11:00-0500 Body mass index (BMI) [Ratio] 28.5 kg/m2 Sanya Tineo Other [email or web address] Other 07-17-2023 11:00-0500 Body weight 67.31 kg Sanya Tineo Other [email or web address] Other 07-17-2023 11:00-0500 Diastolic blood pressure 65 mm[Hg] Sanya Tineo Other [email or web address] Other 07-17-2023 11:00-0500 Systolic blood pressure 121 mm[Hg] Sanya Tineo Other [email or web address] Other 05-11-2023 11:30-0400 Body height 153.67 cm Sanya Tineo Other [email or web address] Other 05-11-2023 11:30-0400 Body mass index (BMI) [Ratio] 27.27 kg/m2 Sanya Tineo Other [email or web address] Other 05-11-2023 11:30-0400 Body weight 64.41 kg Sanya Tineo Other [email or web address] Other 05-11-2023 11:30-0400 Diastolic blood pressure 61 mm[Hg] Sanya Tineo Other [email or web address] Other 05-11-2023 11:30-0400 SaO2% (BldA) [Mass fraction] 97 % Sanya Tineo Other [email or web address] Other 05-11-2023 11:30-0400 Systolic blood pressure 107 mm[Hg] Sanya Tineo Other [email or web address] Other 04-17-2023 10:45-0400 Body height 153.67 cm Sanya Tineo Other [email or web address] Other 04-17-2023 10:45-0400 Body mass index (BMI) [Ratio] 27.89 kg/m2 Sanya Tineo Other [email or web address] Other 04-17-2023 10:45-0400 Body weight 65.86 kg Sanya Tineo Other [email or web address] Other 04-17-2023 10:45-0400 Diastolic blood pressure 72 mm[Hg] Sanya Tineo Other [email or web address] Other 04-17-2023 10:45-0400 Respiratory rate 12 /min Sanya Tineo Other [email or web address] Other 04-17-2023 10:45-0400 Systolic blood pressure 133 mm[Hg] Sanya Tineo Other [email or web address] Other 02-09-2023 11:00-0400 Body height 153.67 cm Sanya Tineo Other [email or web address] Other 02-09-2023 11:00-0400 Body mass index (BMI) [Ratio] 27.47 kg/m2 Sanya Tineo Other [email or web address] Other 02-09-2023 11:00-0400 Body weight 64.86 kg Sanya Tineo Other [email or web address] Other 02-09-2023 11:00-0400 Diastolic blood pressure 62 mm[Hg] Sanya Tineo Other [email or web address] Other 02-09-2023 11:00-0400 SaO2% (BldA) [Mass fraction] 98 % Sanya Tineo Other [email or web address] Other 02-09-2023 11:00-0400 Systolic blood pressure 125 mm[Hg] Sanya Tineo Other [email or web address] Other 09-08-2022 11:30-0500 Body height 153.67 cm Sanya Tineo Other [email or web address] Other 09-08-2022 11:30-0500 Body mass index (BMI) [Ratio] 29.77 kg/m2 Sanya Tineo Other [email or web address] Other 09-08-2022 11:30-0500 Body weight 70.31 kg Sanya Tineo Other [email or web address] Other 09-08-2022 11:30-0500 Diastolic blood pressure 58 mm[Hg] Sanya Tineo Other [email or web address] Other 09-08-2022 11:30-0500 SaO2% (BldA) [Mass fraction] 97 % Sanya Tineo Other [email or web address] Other 09-08-2022 11:30-0500 Systolic blood pressure 110 mm[Hg] Sanya Tineo Other [email or web address] Other Encounters Encounter Date Encounter Type Care Provider Facility Start: 08-28-2023 End: 08-28-2023 ambulatory DIRK ONEILL Not Available Start: 08-21-2023 End: 08-21-2023 ambulatory DIRK ONEILL Not Available Start: 07-24-2023 End: 07-24-2023 ambulatory JENNIFER MORALES Not Available Start: 07-17-2023 End: 07-17-2023 ambulatory Sanya Tineo Other [email or web address] Other Start: 07-17-2023 Patient encounter procedure Sanyakyle Tineo [facility] Start: 07-10-2023 End: 07-10-2023 ambulatory [facility] Start: 05-18-2023 End: 05-18-2023 ambulatory [facility] Start: 05-11-2023 End: 05-11-2023 ambulatory Sanya Tineo Other [email or web address] Other Start: 05-11-2023 Office outpatient vi sit 15 minutes Sanya Tineo [facility] Start: 05-09-2023 Telephone encounter Sanya Rivka [facility] Start: 05-09-2023 End: 05-10-2023 ambulatory MARGARET ALVAREZ [email or web address] Other Start: 05-08-2023 End: 05-08-2023 ambulatory Sanya Rivka Other [email or web address] Other Start: 05-08-2023 Telephone encounter Sanya Rivka [facility] Start: 04-17-2023 End: 04-17-2023 ambulatory Sanya Rivka Other [email or web address] Other Start: 04-17-2023 Office outpatient vi sit 15 minutes Sanya Tineo [facility] Start: 04-11-2023 End: 04-11-2023 ambulatory [facility] Start: 04-04-2023 Evaluation and manag ement of inpatient [facility] Start: 04-03-2023 End: 04-04-2023 Encounter for preprocedural cardiovascular examination [facility] Start: 04-03-2023 End: 04-04-2023 Evaluation and management of inpatient [facility] Start: 2023 End: 2023 ambulatory [facility] Start: 02-23-2023 End: 02-24-2023 ambulatory MARGARET ALVAREZ [facility] Start: 02-21-2023 End: 02-21-2023 ambulatory TAYLOR AVILESFERNANDO [facility] Start: 02-18-2023 End: 02-20-2023 Evaluation and management of inpatient Jailene Quesada Facility:[facility] Start: 02-09-2023 End: 02-09-2023 ambulatory Sanya Tineo Other [email or web address] Other Start: 02-09-2023 Office outpatient vi sit 25 minutes Sanya Tineo [facility] Start: 02-07-2023 Evaluation and manag ement of inpatient MARGARET ALVAREZ [facility] Start: 02-05-2023 Evaluation and manag ement of inpatient [facility] Start: 02-05-2023 Evaluation and manag ement of inpatient ANDREA JAZMIN [facility] Start: 02-05-2023 End: 02-07-2023 Evaluation and management of inpatient [facility] Start: 01-23-2023 End: 01-23-2023 ambulatory DOE SOTO [facility] Start: 01-17-2023 End: 01-17-2023 ambulatory [facility] Start: 12-05-2022 End: 12-05-2022 ambulatory Sanya Tineo Other [email or web address] Other Start: 12-05-2022 Telephone encounter Sanya Tineo [facility] Start: 12-04-2022 End: 12-04-2022 ambulatory Sanya Tineo Other [email or web address] Other Start: 12-04-2022 Telephone encounter Sanya Tineo [facility] Start: 10-24-2022 End: 10-24-2022 ambulatory DOE SOTO [facility] Start: 10-06-2022 End: 10-07-2022 ambulatory SHARITA AKDALTONA Facility:[facility] Start: 10-06-2022 [facility]: 09-20-2022 End: 09-20-2022 ambulatory PRECIOUS MONREAL [facility] Start: 09-12-2022 Evaluation and manag ement of inpatient MIKAYLA [facility] Start: 09-12-[address] SANYA TINEO Facil ity:[facility] Start: 09-11-2022 Evaluation and manag ement of inpatient [facility] Start: 09-10-2022 Evaluation and manag ement of inpatient [facility] Start: 09-10-2022 End: 09-12-2022 Evaluation and management of inpatient MICHELE GOLDSMITH [facility] Start: 09-10-2022 End: 09-10-[address] MICHELE GOLDSMITH . Facility:[facility] Start: 09-08-2022 End: 09-08-2022 ambulatory Sanya Tineo Other [email or web address] Other Start: 09-08-2022 Office outpatient vi sit 25 minutes Sanya Tineo [facility] Start: 06-03-2022 End: 06-04-[address] SANYA TINEO Facility:[facility] Start: 05-23-2022 End: 05-24-2022 ambulatory DIAMOND HILARIO Facility:[facility] Start: 05-16-2022 End: 05-17-[address] SANYA TINEO Facility:[facility] Start: 04-07-2022 End: 04-08-2022 ambulatory SHARITA AKRANJEET Facility:[facility] Start: 11-25-2021 End: 11-26-2021 ambulatory SHARITA AKKINA Facility:[facility] Start: 07-08-2018 End: 07-09-2018 Patient encounter procedure DEFAULT PHYSICIAN Facility:[facility] Start: 04-15-2018 End: 04-16-2018 Patient [facility] Procedures Date Procedure Procedure Detail Performing Clinician Start: 01-23-2023 Follow-up visit Follow-up DOE VELAZQUEZ Immunizations Immunization Date Immunization Notes Care Provider Fa cility 06-28-2022 COVID-19 Pfizer (Pediatric) Sanya Tineo Other [email or web address] Other 06-16-2022 influenza virus vaccine, split virus (incl. purified surface antigen) Sanya Tineo Other [email or web address] Other 09-03-2020 COVID-19 Vaccine Moderna - Documentation Purposes Only Sanya Tineo Other [email or web address] Other 04-26-2020 influenza virus vaccine, split virus (incl. purified surface antigen) Sanya Tineo Other [email or web address] Other 06-20-2015 influenza virus vaccine, split virus (incl. purified surface antigen) Sanya Tineo Other [email or web address] Other 06-01-2015 pneumococcal conjuga te vaccine, 13 valent Sanya Tineo Other [email or web address] Other Payers Date Payer Category Payer Medicare [id number] 2023 Self-pay 1959 Medicare [id number] 2. [id number] 1945 Unknown [id number] 2.16.8 [id number] 1945 Unknown [id number] 2.16.84 0.1.245630.3.579.2.593 1945 Unknown [id number] 2.16.84 0.1.415895.3.579.2.593 1945 Unknown [id number] 2.16.84 0.1.729301.3.579.2.593 1945 Unknown [id number] 2.16.84 0.1.160234.3.579.2.593 1945 Unknown [id number] 2.16.84 0.1.769060.3.579.2.593 1945 Unknown [id number] 2.16.84 0.1.987930.3.579.2.593 1945 Unknown [id number] 2.16.84 0.1.347795.3.579.2.593 1945 Unknown [id number] 2.16.84 0.1.181653.3.579.2.593 1945 Unknown [id number] 2.16.84 0.1.972978.3.579.2.1259 1945 Unknown [id number] 2.16.84 0.1.294597.3.579.2.1259 1945 Unknown [id number] 2.16.840 .1.402786.3.579.2.1259 Unknown Unknown [id number] 2.16.8 40.1.730814.3.579.2.531 Social History Date Type Detail Facility Unknown if ever smoked [email or web address] Other Sex Assigned At Sex Assigned At Bir th [email or web address] Other Clinical Notes 06-21-2021 to 07-17-2023 Note [...] Z85.3) Handwrote rx for prothesis bra #3 [email or web address] Other 10-13-2023 [facility] Subjective Trisha Parish is a [...] with presyncope NSTEMI (non-ST elevated myocardial infarction) ([facility]/HCC) Hx of CABG Severe aortic stenosis Nonrheumatic [...] In September 2022 she was admitted to [facility] with weakness. She was found to have [...] presented [facility]iness and low blood pressure. [...] and dry. Neurological: General (more content not included)...[facility] 05-11-2023 Evaluation note* Encounter Date Diagnosis Assessment Notes Treatment Notes Treatment Clinical Notes May, Bronchitis (ICD-10 - J40) Complete course of antibiotics. Discussed steroids for dyspnea. was recently ill as well. ER if symptoms worsen or fevers begin over weekend. [email or web address] Other 10-03-2023 Evaluation note* Encounter Date Diagnosis Assessment Notes Treatment Notes Treatment Clinical Notes May, Cough, unspecified type (ICD-10 - R05.9) [email or web address] Other 09-12-2023 Evaluation note* Encounter Date Diagnosis Assessment Notes Treatment Notes Treatment Clinical Notes Apr, Other specified postprocedural states (ICD-10 - Z98.890) s/p Aortic valve repair - doing very well. Energy is improving. 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 Apr, Personal history of other diseases of [...] and chronic; keep followup appts w Nephrology [email or web address] Other 09-06-2023 [facility] Subjective Trisha Parish is a [...] In September 2022 she was admitted to [facility] with weakness. She was found to have [...] presented to [facility] with dizziness and low blood pressure. [...] Behavior: Behavior is cooperati (more content not included)...[facility]08-30-2023 NoteSubjective Patient lying in bed without complaints. Denies chest pain or palpitations. V pacing on ECG monitor. Denies shortness of breath. No supplemental oxygen requirements. Denies numbness, tingling, and weakness to bilateral upper and lower extremities. Afebrile. Objective Patient Vitals for the past 24 hrs: BP Temp Temp src Pulse Resp SpO2 Height Weight 04/04/23 1337 151/58 36.4 ???C (97.5 ???F) [facility] 60 12 -- 1.626 m (5' [...] CT surgery standpoint. Medical management per cardiology team.[facility]08-30-2023 Note04/04/23 1035 Admission Assessment Questions [...] Discharge? Yes Does the patient have a human services case manager assigned to them through their insurance? No Living Arrangement (Current/Prior to Hospitalization) Private residence (3 steps to enter) Does the patient have history of HHC or SNF? Yes (Hx of rehab placement in [place]) Assistive Device Grab bars Patient's goal for [...] link and activate MyChart? MyChart already active [facility]08-29-2023 NoteIndications; Mrs. Robbins is a [...] the right common femoral Utilizing 2 6 Kazakh ProGlide devices 6. Angio-Seal vascular closure in the right femoral, artery Tugboat Pilot; interventional gettering operator; Toño Balbuena MD Cardiac surgery gettering operator; Lina Lamas MD ; refinery operator vapor recovery unit Herve Mayorga MD ; Methods; Procedure was explained to the patient with risks and benefits. She signed informed consent. She was brought to the [facility] in a fasting state. The procedure was performed the [employer] [facility] under conscious sedation. Both groin areas were prepped and draped in usual fashion. Micropuncture technique and ultrasound guidance was used to access the right common femoral artery and inner cannula angiography was performed following by upsizing to a 6 Kazakh by 11 cm sheath. The same was done for for access in the left common femoral artery. Ultrasound guidance was used for micropuncture access in left common femoral vein and 6 Kazakh by 11 cm introducer sheath was secured in place. This time we proceeded with preclosure in the right common femoral artery using 2 crossing perclosure devices and the access was then upsized over wire to the 10 Kazakh sheath. Heparin was given intravenously and therapeutic ACT was confirmed during the rest of the procedure and additional heparin was given as needed. A 5 Kazakh balloontipped pacemaker wire was advanced through the femoral sheath into the right ventricular apex and adequate capture was confirmed. Right common femoral artery was accessed and upsized over an Amplatz extra-stiff wire to the 14 Kazakh Medtronic sheath. Through the left common femoral sheath an angled 6 Kazakh pigtail catheter was then advanced to the ascending aorta into the 9 coronary cusp. Aortic root angiography was performed and the cause overlap view as determined by prior CT scan measurements. A 6 Kazakh AL diagnostic catheter was advanced via the right femoral sheath and using a stiff Glidewire the aortic valve was crossed and the catheter was advanced into the left ventricular cavity and using exchange length J-wire a 6 Kazakh angled pigtail catheter was advanced to make [...] valve over the wire across the aortic marshall aortic valve and under pacing at 120 [...] and removed outside the body. The 14 Kazakh access sheath was placed across the right femoral and 6 Kazakh angled pigtail catheter was advanced across the [...] previous placed per (more content not included)... [facility]08-29-2023 NotePatient: Trisha Parish Procedure Information Date/Time: 04/03/23 1100 Procedure: TAVR Location: [facility] DISULFURIZER TENDER 3 / [facility] (Cath) Providers: Tñoo Balbuena MD Clinical information reviewed: Allergies Meds OB Status Physical Exam Airway Mallampati: II TM distance: >3 FB Neck ROM: full Cardiovascular Rhythm: regular Rate: normal Dental Pulmonary Abdominal Anesthesia Plan ASA 3 other (Moderate sedation) Anesthetic plan and risks discussed with patient. Use of blood products discussed with patient who consented to blood products. 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 She was found to have [...] , Rfl: carvedilol (Co (more content not included)...[facility] 02-21-2023 NoteCardiology Clinic Note Subjective [...] renal failure syndrome (CMS/HCC) Anemia Atrial fibrillation ([facility]/HCC) Benign hypertensive renal disease Carotid artery stenosis Cerebrovascular accident (CMS/HCC) Coronary arteriosclerosis Essential hypertension Hypertensive disorder Hyperparathyroidism due to renal insufficiency (CMS/HCC) Breast CA ([facility]/HCC) Malignant neoplasm of female breast (CMS/HCC) Proteinuria Stage 3 chronic kidney disease (CMS/HCC) Stage 4 chronic kidney disease ([facility]/HCC) Type 2 diabetes mellitus ([facility]/HCC) Vitamin D deficiency 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 Social History Tobacco Use Smoking status: Never Smokeless tobacco: Never Substance Use Topics Alcohol use: Never Drug use: Never Update: 02/21/2023 She was hospitalized at [facility] for 3 days after presenting with [...] other elevated She was hospitalized 02/04-02/07/23 at [facility] and underwent coronary angiography and right heart [...] mouth in the morning., Disp: , Rfl: FreeAvitide Stephy 2 Sensor kit, , Disp: , [...] Date WBC 6.44 02/06 (more content not included)...[facility] 02-09-2023 Evaluation note* Encounter Date Diagnosis Assessment Notes Treatment Notes Treatment Clinical Notes Feb, Nonrheumatic aortic valve stenosis (ICD-10 - I35.0) Discussed followup testing and likely procedure coming up at [facility] at length w pt and Feb, Chronic kidney disease, stage 3 unspecified (ICD-10 - N18.30) Reviewed labs - condition stable Feb, CAD in marshall artery (ICD-10 - I25.10) Further f/u w [facility] Cardiology Feb, Essential hypertension (ICD-10 - I10) Improved on present meds. [email or web address] Other 07-05-2023 NotePhysical Therapy Physical Therapy Evaluation [...] in front. During session, patient confided in creative writer that they felt as though their balance had decreased during this admission and that they were worried about walking due to occasional and unpredictable losses of balance. Patient reported that they thought it could be related to neuropathy at their feet, but were unsure. Patient told creative writer that they wished to address loss of balance issues sooner rather than later and they felt less confident walking. Patient Active Problem List Diagnosis Heart block Acute renal failure syndrome ([facility]) Anemia Atrial fibrillation ([facility]) Benign hypertensive renal disease Carotid artery stenosis Cerebrovascular accident ([facility]) Coronary arteriosclerosis Essential hypertension Hypertensive disorder Hyperparathyroidism due to renal insufficiency ([facility]) Breast CA ([facility]) Malignant neoplasm of female breast ([facility]) Proteinuria Stage 3 chronic kidney disease ([facility]) Stage 4 chronic kidney disease ([facility]) Type 2 diabetes mellitus ([facility]) Vitamin D deficiency 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 ([facility]) Pre-operative cardiovascular examination, recent myocardial infarction ([facility]) Cardiac pacemaker in situ Postural dizziness with presyncope NSTEMI (non-ST elevated myocardial infarction) ([facility]) Hx of CABG Severe aortic stenosis Past Medical History: Diagnosis Date A-fib ([facility]) Cancer ([facility] Coronary artery disease Hypertension Myocardial infarct ([facility]) Stroke ([facility]) Past Surgical History: Procedure Laterality Date [...] Level of Function Prior Function Level of [place]: Independent with ADLs and functional transfers Prior [...] Standing Balance Dynamic Darwin (more content not included)...[facility] 02-07-2023 NoteHospital Medicine Discharge Summary [...] urgency which improved. Case was discussed by [facility] hospital with Dr. iWlks and patient was subsequently transferred here. # [...] Medications These medications were sent to [facility] - [place], [place] - [address], [facility] [address] lisinopril 40 mg tablet NIFEdipine CC 60 [...] Normal activity as tolerate (more content not included)...[facility]07-04-2023 NoteHospital Medicine Daily Progress Note - 02/06/2023 1:29 PM; Room: [address] [place] [address] Admission: 02/04/2023 10:47 PM; Length of stay: 2 days THE HOSPITALIST TEAM PREFERS TO USE EPIC CHAT FOR COMMUNICATION 7AM-7PM. IF I DO NOT RESPOND WITHIN 15 MINUTES, PLEASE PAGE ME/CALL THROUGH THE APRON OPERATOR. FROM 7PM-7AM, PLEASE PAGE [phone](COVR) Code Status: Full Code Discharge Destination: home [...] of CABG NSTEMI (non-ST elevated myocardial infarction) (CMS/[facility]) Assessment and Plan #Near-syncope #NSTEMI type [...] Results Component Value D (more content not included)...[facility]07-04-2023 Note Attestation signed by Matilda [...] Value Ventricular Rate 72 Atrial Rate 72 OR Interval 162 QRS DURATION 150 QT Interval 464 QTC CALCULATION(BAZETT) 508 P Evening Shade 70 R-Evening Shade -40 T Wave Evening Shade 103 Impression Atrial-sensed ventricular-paced rhythm Abnormal ECG When compared with ECG of 10-SEP-2022 13:04, Electronic ventricular pacemaker has replaced Sinus rhythm Confirmed by Cheryl VALENTIN, MATILDA Robles ([id number]) on 02/05/2023 8:39:37 AM Lab Results Component Value Date TROPONINI 0.25 (HH) 02/05/2023 Complete Echo (TTE) w/wo Imaging Agent, Strain, 3D, Bubble Study Result Date: 02/05/2023 1 [facility] Heart Station [address] [place] [address] [phone] (fax) Echocardiogram-[facility] Name: TRISHA PARISH Study Date: 02/05/2023 09:59 AM B/P: 136 mmHg/65 mmHg HR: 61 bpm Date of : 1945 Location: [facility] Height: 63 in. Age: 77 year(s) Patient [...] cm?? Aortic Va (more content not included)... [facility]07-04-2023 NoteCTA CHEST W AND/OR WO [...] 3 cusped view, anterior view and no PICTURE HANGER-CAU view are obtained in 3-D volume rendered [...] diameter of 23 mm. Electronically signed: Fely Carrington.[facility] Comment on above:Order Comment: TAVR [id number] NoteCTA ABDOMEN PELVIS W AND/OR WO IV [...] spondylosis and levoconvex scoliosis. Electronically signed: Fely Carrington.[facility] 02-05-2023 NotePatient: Trisha Parish Procedure Information Date/Time: 02/05/23 1800 Procedures: Coronary angiography Right heart cath Valve assessment - Aortic valve Location: [facility] DISULFURIZER TENDER 3 / [facility] (Cath) Providers: Herve Mayorga MD Clinical information reviewed: Allergies Meds Physical Exam Airway Mallampati: III Cardiovascular Rhythm: regular Dental Pulmonary Abdominal Anesthesia Plan ASA 3 other (Conscious sedation ) intravenous induction Anesthetic plan and risks discussed with patient. Use of blood products discussed with patient who. [facility]Gal[facility]07-[facility]-2023 Note Clinical Nutrition Assessment Name: Trisha Parish [...] Goals: intake > 75% meals Alexander Chowdhury [facility]07-03-2023 NoteHospital Medicine Daily Progress Note - 02/05/2023 12:08 PM; Room: [address] [place] [address] Admission: 02/04/2023 10:47 PM; Length of stay: 1 days THE HOSPITALIST TEAM PREFERS TO USE [email or web address] CHAT FOR COMMUNICATION 7AM-7PM. IF I DO NOT RESPOND WITHIN 15 MINUTES, PLEASE PAGE ME/CALL THROUGH THE APRON OPERATOR. FROM 7PM-7AM, PLEASE PAGE [phone](COVR) Code Status: Full Code Discharge Destination: home [...] 1.36 09/10/2022 Lab Results Component Value Date [id number] 177 (L) 09/10/2022 IRON 27 (L) 09/10/2022 TIBC 203 (L) 09/10/2022 Imaging ECG 12 lead Atrial-sensed ventricular-paced rhythm Abnormal ECG When compared with ECG of 10-SEP-2022 13:04, Electronic ventricular pacemaker has replaced Sinus rhythm Confirmed by Cheryl VALENTIN, MATILDA Robles ([id number]) on 02/05/2023 8:39:37 AM Discharge Planning Discharge Planning Has discharge transport been arranged?: No Signed Josr Ray NP [facility] Medicine 02/05/2023 12:08 PMSumma [facility]07-03-2023 NoteHospital Medicine History and Physical 02/05/2023 12:23 AM THE HOSPITALIST TEAM PREFERS TO USE [email or web address] CHAT FOR COMMUNICATION 7AM-7PM. IF I DO NOT RESPOND WITHIN 15 MINUTES, PLEASE PAGE ME/CALL THROUGH THE APRON OPERATOR. FROM 7PM-7AM, PLEASE PAGE [phone](COVR) Chief Complaint Direct transfer History of Present [...] side. For her symptoms she presented to [facility]. Patient had elevated troponin at 2000 but down trending. Patient also had HTN urgency which improved. Case was discussed by [facility] hospital with Dr. Wilks and patient was [...] 02/05/2023 Pre-operative cardiovascular examination, recent myocardial infarction ([facility]/HCC) 10/06/2022 Atrial fibrillation (CMS/HCC) 09/20/2022 Carotid artery stenosis 09/20/2022 Cerebrovascular accident (CMS/HCC) 09/20/2022 Coronary arteriosclerosis 09/20/2022 Hypertensive disorder 09/20/2022 Heart block 09/10/2022 Hyperparathyroidism due to renal insufficiency ([facility]) 04/02/2019 Stage 4 chronic kidney disease ([facility]) 04/02/2019 Anemia 02/19/2017 Essential hypertension 02/19/2017 Malignant neoplasm of female breast ([facility]) 02/19/2017 Proteinuria 02/19/2017 Vitamin D deficiency 02/19/2017 Type 2 diabetes mellitus ([facility]) 07/09/2014 Acute renal failure syndrome ([facility]) 11/06/2013 Benign hypertensive renal disease 11/06/2013 Stage 3 chronic kidney disease ([facility]) 11/06/2013 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 Past Medical History Past Medical History: Diagnosis Date A-fib ([facility]) Cancer ([facility]) Coronary artery disease Hypertension Myocardial infarct ([facility]) Stroke ([facility]) Past Surgical History Past Surgical History: Procedure Laterality Date BREAST SURGERY CHOLECYSTECTOMY CORONARY ARTERY BYPASS GRAFT HYSTERECTOMY Social History Social History Socioeconomic Histor (more content not included)...[facility]06-20-2023 NoteUT Electrophysiology Consult Note Reason [...] stenosis, CKD. She was recently admitted to [facility] for weakness, suspected to have a stroke [...] stroke who presented with generalized weakness to [facility]. At [facility], EKG demonstarted a 2:1 AV block with prolonged OR interval 266. Chest x-ray demonstrated possible trace [...] heart rate 59. Patient was transferred to [facility] for further evaluation by cardiology. She was [...] (CMS/HCC) Coronary artery disease Hypertension Myocardial infarct ([facility]/HCC) Stroke ([facility]/HCC) PSH: Past Surgical History: Procedure Laterality Date [...] mg chemo tablet anastrozole (more content not included)...[facility]06-14-2023 NoteUT Cardiology - [facility] Subjective Trisha Parish is a [...] In September 2022 she was admitted to [facility] with weakness. She was found to have [...] capsule in the morning., Disp: , Rfl: FreeTubular Labsyle Stephy 2 Sensor kit, , Disp: , [...] (Pepcid) 20 mg tablet (more content not included)...[facility]03-03-2023 NoteDressing removed and incision is healing well without any s/s of infection.[facility]03-03-2023 NoteHypertension is currently well controlled with addition of nifedipine, continue current med regime.[facility]03-03-2023 NoteUTP CARDIOLOGY PROGRESS NOTE HPI: [...] Bubble Study Result Date: 09/11/2022 1 1 [facility] Heart Station [address] [id number] [phone] (fax) Echocardiogram-[facility] Name: TRISHA PARISH Study Date: 09/11/2022 10:26 AM B/P: 125 mmHg/69 mmHg HR: 68 bpm Date of : 1945 Location: [facility] Height: 63 in. Age: 77 year(s) Patient [...] suggest mildly elevated right (more content not included)...[facility]03-03-2023 NotePatient is here today for hypertension. Review of Systems Cardiovascular: Positive for irregular heartbeat. Gastrointestinal: Positive for constipation. All other systems reviewed and are negative.[facility] 09-20-2022 Note-s/p dual-chamber PPM -Follow-up with device clinic within the next 2 to 3 weeksUnGalion [facility] Hospital02-15-2023 Note- He is hypertensive today but also has not had nifedipine -Currently takes 60 mg in the morning and 30 mg at night -We will have her start with 30 mg daily and return to clinic in 1 to 2 weeks for hypertension checkUnGalion Community Hospital02-15-2023 NoteCoronary artery disease is stable -Continue current medicationsUnGalion Community Hospital02-15-2023 Note- [id number] 5 (age, gender, history of CVA) -s/p PARISH clipping, she is on Plavix -Follow-up with device check for concerns of arrhythmiaUnGalion Community Hospital02-15-2023 Note- Follow-up with manager presentation regarding calcitriol [facility]02-15-2023 NoteUT Electrophysiology Consult Note Reason for visit: hospital follow up, wound check, hypertension HPI: Trisha Parish is a 77 y.o. 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 She was recently admitted to [facility] for weakness, suspected to have a stroke [...] to continue the medication and follow-up with PCP/manager presentation Her device dressing is clean dry and [...] stroke who presented with generalized weakness to [facility]. She presented with 2-day history of exertional shortness of breath and weakness with intermittent palpitations. She stated that her legs felt heavy. She denied any recent changes of medication and illness. Patient states that she does take Plavix daily. She denies any use of anticoagulation. At [facility], EKG demonstarted a 2:1 AV block with prolonged OR interval 266. Chest x-ray demonstrated possible trace [...] heart rate 59. Patient was transferred to [facility] for further evaluation by cardiology. She was [...] mitral regurgitation, mild to (more content not included)...[facility]02-15-2023 NotePatient here for wound check s/p device placement with Dr. Soto on 09/11/2022. She called the office yesterday to make us aware her BP has been running in the 170's-180's systolic since nifedipine was discontinued while at [facility]. Still feels palpitations. She sees nephrology out of [place]. Review of Systems Constitutional: Positive for malaise/fatigue. Cardiovascular: Positive for palpitations. All other systems reviewed and are negative.[facility] 09-12-2022 NoteCardiology Progress Note Subjective [...] Lab PROCEDURE PERFORMED: 1. Implantation of pacemaker ([employer]) 2. Ultrasound guided venous access INDICATIONS: [...] for device interrogation and 3 months with [employer]. Mikayla Duvall ARTIFICIAL TEETH INSPECTOR Division of Cardiology, [facility]- [phone] Pager- [phone] Email- [email or web address] NoteDUAL CHAMBER PACEMAKER IMPLANT PROCEDURE NOTE DATE OF PROCEDURE: 09/11/2022 PERFORMING PHYSICIAN: Dr. Doe Soto CONSENT: Patient LOCATION: EP Lab PROCEDURE PERFORMED: 1. Implantation of pacemaker ([employer]) 2. Ultrasound guided venous access INDICATIONS: [...] using modified seldinger technique using a 5 Kazakh micro-puncture needle on two occasions and 0.35 [...] for the device above the muscle. 6 Kazakh Safesheaths were placed over the wire. An active fixation [employer] pacing lead was then delivered through [...] 1-0 Silk sutures. Then an active fixation [employer] lead was delivered through the 6Fsheath [...] x 2 weeks Doe Soto MD Cardiac ElectrophysiologyUnGalion Community Hospital02-06-2023 Note Patient: Trisha Parish Procedure Information Date/Time: 09/11/22 1459 Procedure: Pacemaker DC new Location: [facility] DISULFURIZER TENDER 1 / [facility] (Cath) Providers: Doe Soto MD Clinical information reviewed: Tobacco Allergies Meds Med Hx Surg Hx Fam Hx Soc Hx Physical Exam Airway Mallampati: II TM distance: >3 FB Neck ROM: full Cardiovascular Dental Pulmonary Abdominal Anesthesia Plan ASA 2 CSE Anesthetic plan and risks discussed with patient. Use of blood products discussed with patient who. Additional Equipment RequestsUnGalion Community Hospital02-06-2023 Note Attestation signed by Matilda Valentin MD [...] 98 QT Interval 464 QTC CALCULATION(BAZETT) 455 R-Evening Shade 20 T Wave Evening Shade 14 Impression Sinus rhythm with 2nd degree [...] CAD s/p CABG (2014 (more content not included)...[facility]02-06-2023 Note Attestation signed by Easton [...] Parish Age - 77 y.o. - 1945 [facility] # - [id number] Date of Admission - 09/10/2022 11:01 AM HPI/Hospital Course Subjective Trisha Parish is a 77 y.o. female with a past medical history significant for atrial fibrillation status post maze and left atrial appendage clip, coronary artery disease status post CABG, hypertension, stroke who presented with generalized weakness to [facility]. She presented with 2-day history of exertional shortness of breath and weakness with intermittent palpitations. She stated that her legs felt heavy. She denied any recent changes of medication and illness. Patient states that she does take Plavix daily. She denies any use of anticoagulation. At [facility], EKG demonstarted a 2:1 AV block with prolonged OR interval 266. Chest x-ray demonstrated possible trace [...] heart rate 59. Patient was transferred to [facility] for further evaluation by cardiology. On my evaluation, patient denied chest pain shortness of breath, lightheadedness, dizziness. She did state that she continued to feel weak. Patient arrived while on dopamine infusion. However, heart rate was noted to be in the 30s to 40s. Labs at [facility] suggestive of subclinical hypothyroidism, prediabetes and iron [...] Results ABG: No results found for: PHART, IYC8NIJ, PO2ART, PAM2NLK, IONCALART No results found for: PHVEN, PMB4FUP, PO2VEN, CPZ2UJW, IONCALVEN CBC: Results from last 7 days [...] 3.9 4.0 CHLORIDE mm (more content not included)...[facility] 09-10-2022 Note Attestation signed by [...] ESTIMATED BLOOD LOSS: 5 ml Camille Millard [facility] Fellow [facility]02-03-2023 Evaluation note* Encounter Date Diagnosis Assessment Notes [...] ultrasound thyroid from May 2022 with Trisha. [email or web address] Other 11-16-2021 NotePROCEDURE REPORT Specimen #: [id number] Submitting Physician: Abner Wheeler MD SPECIMEN SUBMITTED [...] developed and its performance characteristics determined by [facility]'s [facility] Pathology and Laboratory Medicine [place] ([facility]). It has not been cleared or approved by the FDA. [facility] is regulated under CLIA as qualified [...] Abner Wheeler MD Diagnostic interpretation performed at [facility], [address] [place] [address].[facility] Reference LabComment on above:Performed By: #### COPATH #### See report for performing lab information.Evaluation noteNo InformationNort [employer] Other History general Narrative - Reported* Type Description Date Medical History CAD in marshall artery Medical History Diabetes mellitus ty pe 2, uncontrolled, without complications Medical History Chronic kidney disease, stage 3 unspecified Medical History Elevated glucose Medical History Right thyroid nodule Medical History Menopause Medical History Enlarged thyroid gland Medical History Anxiety, generalized Medical History Essential hypertension Surgical History CHOLECYSTECTOMY 2014 Surgical History LEFT BREAST MASTECTOMY Hospitalization History SEE SURGICAL HX [email or web address] Other History general Narrative - Reported* Type Description Date Medical History CAD in marshall artery Medical History Diabetes mellitus ty pe 2, uncontrolled, without complications Medical History Chronic kidney disease, stage 3 unspecified Medical History Elevated glucose Medical History Right thyroid nodule Medical History Menopause Medical History Enlarged thyroid gland Medical History Anxiety, generalized Medical History Essential hypertension Medical History Heart attack Surgical History CHOLECYSTECTOMY 2014 Surgical History LEFT BREAST MASTECTOMY Hospitalization History SEE SURGICAL HX [email or web address] Other Summary Purpose Family History No Family [...] 1 Post-nasal drip (R09 .82) Referral Organization [facility] Referring Provider First Name Sanya Referring Provider Last Name Rivka Referring Provider Specialty Family Medi cine Referred Organization [facility] Referred Address ,[place], [place],[address] Referred Provider Specialty Ear, Nose an d Throat Referral Priority Routine Additional Source Comments INFORMATION SOURCE (unrecogn ized section and content) DATE CREATED AUTHOR 05/01/2018 [facility] DATE CREATED AUTHOR AUTHOR'S ORGANIZ ATION 07/16/2018 [facility] DATE CREATED AUTHOR AUTHOR'S ORGANIZ ATION 06/23/2021 [facility] DATE CREATED AUTHOR AUTHOR'S ORGANIZ ATION 10/10/2022 [facility] DATE CREATED AUTHOR AUTHOR'S ORGANIZ ATION 03/09/2023 [facility] DATE CREATED AUTHOR AUTHOR'S ORGANIZ ATION 07/12/2023 [facility] DATE CREATED AUTHOR AUTHOR'S ORGANIZ ATION 08/29/2023 [facility] EPIC REASON FOR VISIT [...] BE BASED ON THE PRIMARY CLINICAL RECORDS. [facility] [employer] provides no warranty or guarantee of the accuracy or completeness of information in this document.
[2023-09-06 07:40] VITALS: BP 134/56; PULSE 665; RESP 16; O2SAT 98; BMI 23.2
[2023-09-06] MEDS: TROPICAMIDE 1% OP SOL 300 DROP/15 ML BOTTLE OP ×4 (07:44→08:15)
[2023-09-06] MEDS: BESIFLOXACIN HCL 100 DROP DROPS.SUSP OP ×4 (07:44→08:15)
[2023-09-06] MEDS: PHENYLEPHRINE HCL 2.5% OP SOL 40 DROP/2 ML BOTTLE OP ×4 (07:44→08:15)
[2023-09-06] MEDS: DIAZEPAM 5 MG TABLET PO (07:57)
[2023-09-06 09:35] VITALS: BP 112/53; PULSE 62; RESP 18; O2SAT 100
[2023-09-06] MEDS: APRACLONIDINE HCL 100 DROP/5 ML BOTTLE OP (09:37)
[2023-09-06] MEDS: HYALURONATE SODIUM 16 MG/ML SYRINGE OP (09:37)
[2023-09-06] MEDS: LIDOCAINE 2% JELLY 10 ML TOPICAL (09:37)
[2023-09-06] MEDS: PHENYLEPHRINE/KETOROLAC 1-0.3% ML VIAL 4 ML IRR (09:38)
[2023-09-06] MEDS: BETADINE POVIDONE-IODINE 5% OP SOL 30 ML BOTTLE OP (09:38)
[2023-09-06] MEDS: LIDOCAINE HCL 1% PF 20 MG/2 ML VIAL INJ (09:38)
[2023-09-06] MEDS: PROPARACAINE HCL 0.5% 300 DROP/15 ML BOTTLE OP (09:39)
[2023-09-06] MEDS: PREDNISOLONE ACETATE OP 1% SUSP 100 DROPS/5 ML 1 DROP OP (09:39)
[2023-09-06] MEDS: CEFUROXIME SODIUM 750 MG, 0.9 % SODIUM CHLORIDE 16.3 ML OP (09:39)
[2023-09-06] MEDS: TETRACAINE HCL 0.5% OP SOL 80 DROP/4 ML BOTTLE OP (09:39)
[2023-09-06 09:51] VITALS: BP 120/55; PULSE 62; RESP 18; O2SAT 100
== END 2023-09-06 10:02 | disposition home or self-care (01) ==
LOC: SURGOUT 07:26
PROVIDERS: PCP Family Medicine; Visit Provider Ophthalmology
PROC: (CPT 66984; principal; 2023-09-06 08:50)
DX: H25.12 Age-related nuclear cataract, left eye (principal); I10 Essential (primary) hypertension; Z90.49 Acquired absence of other specified parts of digestive tract; Z85.3 Personal history of malignant neoplasm of breast; Z90.10 Acquired absence of unspecified breast and nipple; F41.9 Anxiety disorder, unspecified; Z79.899 Other long term (current) drug therapy
CPT/HCPCS: 66984; J0697; V2630

== ENCOUNTER 2023-10-05 12:15 | Outpatient (OUT) | payer MEDICARE, SELFPAY ==
--- OUTSIDE RECORDS SUMMARY | 2023-10-05 12:21 | XMS_ITS | CCD ---
Author Name Unknown Address [address] [place] [address] Organization [facility] Care Team Providers Care Corporate Executive Chef Name Role Phone WALLACE, SADI P Unavailable [...] Torre Consulting Unavailable RIVKA, DR SANYA De LaT orre Primary Care Unavailable RIVKA, DR SANYA De [...] SHARITA Admitting Unavailable AKKINA, SHARITA Attending Unavailable DR SANYA TINEO Primary Care Unavailable AKKINA, SHARITA Consulting Unavailable AKKINA, SHARITA Consulting Unavailable AKKINA, SHARITA Admitting Unavailable RIVKA, DR SANYA De La Torre Primary Care Unavailable AKKINA, SHARITA Attending Unavailable RUPAL .DR BAUTISTA Consulting Unavailable HAY ., DR BAUTISTA Admitting Unavailable RUPAL ., DR BAUTISTA Attending Unavailable RIVKA, DR SANYA De La Torre Primary Care Unavailable ALMA DELIA MONTEZ Consulting Unavailable DIAB ., PIERRE Consulting Unavailable RIVKA, DR SANYA De La Torre Admitting Unavailable RIVKA, DR SANYA De La Torre Primary Care Unavailable RIVKA, DR SANYA De La Torre Attending Unavailable RIVKA, DR SANYA De La Torre Consulting Unavailable Jailene Quesada Admitting Unavailable Sanya Tineo Primary Care Unavailable Mikel Mir Attending Unavailable TOÑO BALBUENA Admitting Unavailable MOUKARBEL, TOÑO Attending Unavailable MOUKARBEL, TOÑO Attending Unavailable PRECIOUS MONREAL Attending Unavailable MOUKARBEL, TOÑO Referring Unavailable GANGJACKSON, ANDREA WU Referring Unavailab MIKAYLA Salgado Attending Unavailable MOUKARBEL, TOÑO Referring Unavailable MOUKARBEL, TOÑO Referring Unavailable BRITTANYDOE You Referring Unavailable MOUKARBEL, TOÑO Attending Unavailable MOUKARBEL, [...] TU Admitting Unavailable RAY, JOSR Referring Unavailable HORANIBEBO Attending Unavailable HAYMICHELE Referring Unavailable DINORA, YOUNGSOOK Admitting Unavailable DINORA, YOUNGSOOK Attending Unavailable DIRK ONEILL Attending Unavailable ZOEY HERRING Referring Unavailable DIRK ONEILL Attending Unavailable JENNIFER MORALES Attending Unavailable SANYA TINEO Referring Unavailable Sanya Tineo MD Primary Care Provider Allergies Allergy Classification Reported Allergen(s) Allergy Type Date of Onset Reaction(s) Facility (2 sources) Meperidine Drug Allergy 06-16-2009 [facility] Repository (12 sources) Meperidine; Translations: [MEPERIDINE] Drug Allergy 09-10-2022 Unknown [facility] Repository (1 source) Meperidine Drug Allergy 02-17-2023 [facility] Repository (1 source) Meperidine Drug Allergy 08-28-2023 [facility] Medications Current Medications Medication Drug Class(es) Dates Sig (Normalized) Sig (Original) ALPRAZolam 0.25 mg oral tablet (11 sources) Benzodiazepine Start: 07-17-2023 take 1 tablet by mouth twice daily as needed ALPRAZolam 0.25 MG 1 tablet Orally Twice a day prn for 30 days Jul, Active amoxicillin 500 mg oral capsule (3 [...] day Active atorvastatin 80 mg oral tablet (11 sources) HMG-CoA Reductase Inhibitor take 1 tablet by mouth in the morning atorvastatin (Lipitor) 80 MG tablet Take 80 mg by mouth in the morning. 0 Active azithromycin 250 mg oral tablet (2 sources) Macrolide Antimicrobial Start: 023 Azithromycin 250 MG as directed Orally 2 tabs po today, then 1 tab daily x 4 more days for 5 May, Active calcitriol 0.93966 mg oral capsule (3 sources) Vitamin D3 Analog take 1 capsule by mouth three times weekly Calcitriol 0.25 MCG 1 capsule Orally Three times a Week Active carvedilol 25 mg oral tablet (11 sources) alpha-Adrenergic Martín, beta-Adrenergic Martín take 1 tablet by mouth in the morning carvedilol (Coreg) 25 MG tablet Take 25 mg by mouth in the morning and 25 mg in the evening. Take with meals. 0 Active cholecalciferol 0.05 mg oral capsule (7 sources) Vitamin D take 1 capsule by mouth in the morning cholecalciferol (Vitamin D-3) 50 MCG (2000 UT) capsule Take 2,000 Units by mouth in the morning. 0 Active take 1 capsule by mo ut every twenty-four hours Vitamin D3 50 MCG (2000 UT) 1 capsule Orally Once a day Active clopidogrel 75 mg oral tablet (11 sources) P2Y12 Platelet Inhibitor take 1 tablet by mouth in the morning clopidogrel (Plavix) 75 MG tablet Take 75 mg by mouth in the morning. 0 Active Continuous Blood Gluc Sensor (FreeStyle Stephy 2 Sensor) misc (1 source) Continuous Blood Gluc Sensor (FreeStyle Stephy 2 Sensor) misc docusate sodium 100 mg oral capsule (7 sources) take 1 capsule by mouth in the morning Docusate Sodium (DSS) 100 MG capsule Take 1 capsule by mouth in the morning. 0 Active famotidine 20 mg oral tablet (1 source) Histamine-2 Receptor Antagonist Start: 07-24-20 End: 10-22-19 24 take 1 tablet by mouth at bedtime famotidine (Pepcid) 20 MG tablet Indications: LPRD (laryngopharyngeal reflux disease) Take 1 tablet (20 mg) by mouth at bedtime 90 tablet 0 07/24/2023 10/22/2023 Active FreeStyle Stephy 14 Day Hayti - (10 sources) FreeStyle Stephy 14 Day [place]ti - as directed Active FreeStyle Stephy 14 Day Sensor - (1 source) FreeStyle Stephy 14 Day Sensor - as directed Active FreeStyle Stephy 2 Sensor - (9 sources) FreeStyle Stephy 2 Sensor - USE DIRECTED for 28 Active hydrALAZINE hydrochloride 25 mg oral tablet (11 sources) Arteriolar Vasodilator take 1 tablet by mouth in the morning hydrALAZINE (Apresoline) 25 MG tablet Take 25 mg by mouth in the morning and 25 mg in the evening. 0 Active ketorolac tromethamine 5 mg/ml ophthalmic solution (1 source) Nonsteroidal Anti-inflammatory Drug, Cyclooxygenase Inhibitor Start: 08-21-19 End: 09-20-19 24 take 1 drop(s) into the eye(s) in the morning ketorolac (Acular) 0.5 % ophthalmic solution Indications: Age-related nuclear cataract of both eyes Administer 1 drop into affected eye(s) in the morning and 1 drop before bedtime. 5 mL 1 08/21/2023 09/20/2023 Active lisinopril 10 mg oral tablet (11 sources) Angiotensin Converting Enzyme Inhibitor Start: 03-07-20 take 1 tablet by mouth in the morning lisinopril 10 MG tablet Take 10 mg by mouth in the morning. 0 2023 Active take 1 tablet by kaleigh th [...] NIFEdipine 60 mg extended release oral tablet (14 sources) Dihydropyridine Calcium Channel Martín Start: 03-07-20 End: 03-01-20 take 1 tablet by mouth before mealtime, then take 1 tablet by mouth every twenty-four hours NIFEdipine CC (Adalat CC) 60 MG 24 hr tablet Take 60 mg by mouth in the morning. Take before meals. 0 2023 03/01/2024 Active take 1 tablet by kaleigh th every twenty-four hours NIFEdipine ER 30 MG 1 tablet on an empty stomach Orally Once a day Active take 1 tablet by kaleigh th every twenty-four hours NIFEdipine ER 90 MG 1 tablet on an empty stomach Orally Once a day Active omeprazole 40 mg delayed release oral capsule (1 source) Proton Pump Inhibitor Start: 07-24-2023 End: 10-22-2023 take 1 capsule by mouth before mealtime omeprazole (PriLOSEC) [address] capsule Indications: LPRD (laryngopharyngeal reflux disease) Take 1 capsule (40 mg) by mouth in the morning. Take before meals. Do not crush or chew.. 90 capsule 0 07/24/2023 10/22/2023 Active predniSONE 20 mg oral tablet (2 sources) take 1 tablet by mouth every twenty-four hours predniSONE 20 MG 1 tablet Orally Once a day for 5 days Active spironolactone 25 mg oral tablet (1 source) Aldosterone Antagonist take 1 tablet by mouth every twenty-four hours Spironolactone 25 MG 1 tablet Orally Once a day Active Completed/Discontinued Medications Medication Drug Class(es) Dates Sig (Normalized) Sig (Original) 4 ml bevacizumab 25 mg/ml injection (2 sources) Vascular Endothelial Growth Factor Inhibitor Start: 08-28-2023 End: 08-28-2023 bevacizumab (Avastin) intravitreal chemo injection 1.25 mg Problems Active Problems Problem Classification Problem Date Documented Date Episodic/Chronic Abdominal pain (1 source) Unspecified abdominal pain Episodic Acute cerebrovascular disease (1 source) Cerebrovascular accident; Translations: [Cerebral infarction, unspecified] Onset: 3 07-19-2023 Chronic Acute myocardial infarction (5 sources) Acute myocardial infarction, unspecified; Translations: [Non-ST elevation (NSTEMI) myocardial infarction] Onset: 3 Chronic Anxiety disorders (13 sources) Generalized anxiety disorder; Translations: [Generalized anxiety disorder] Onset: 3 Chronic Cancer of breast (3 sources) Malignant neoplasm of overlapping sites of unspecified female breast; Translations: [Malignant tumor of breast ] Onset: 2 07-19-2023 Chronic Cancer of breast (3 sources) Personal history of malignant neoplasm of breast; Translations: [History of malignant neoplasm of breast] Onset: 2 Episodic Cardiac dysrhythmias (4 sources) Unspecified atrial fibrillation; Translations: [Paroxysmal atrial fibrillation] Onset: 3 Chronic Cardiac dysrhythmias (1 source) Bradycardia, unspecified; Translations: [BRADYCARDIA UNSPECIFIED] Onset: 3 Episodic Cataract (1 source) Bilateral age-related nuclear cataracts; Translations: [Age-related nuclear cataract, bilateral] Onset: 4 08-21-2023 Chronic Chronic kidney disease (20 sources) Chronic kidney disease stage 3; Translations: [Chronic kidney disease, stage 3 unspecified] Onset: 9 07-19-2023 Chronic Chronic kidney disease (6 sources) Chronic kidney disease; Translations: [Chronic kidney disease, stage 3 unspecified] Onset: 3 Chronic obstructive pulmonary disease and bronchiectasis (1 source) Bronchitis, not specified as acute or chronic Episodic Conduction disorders (9 sources) Atrioventricular block, second degree; Translations: [Presence of cardiac pacemaker] Onset: 3 Chronic Coronary atherosclerosis and other heart disease (16 sources) Atherosclerosis of coronary artery without angina pectoris; Translations: [Atherosclerotic heart disease of [place] coronary artery without angina pectoris] Onset: 3 Chronic Deficiency and other anemia (1 source) Anemia in chronic kidney disease; Translations: [ANEMIA IN CHRONIC KIDNEY DISEASE] Onset: 3 Chronic Diabetes mellitus with complications (16 sources) Hyperglycemia due to type 2 diabetes mellitus; Translations: [Type 2 diabetes mellitus with hyperglycemia] Onset: 4 Chronic Diabetes mellitus without complication (1 source) Type 2 diabetes mellitus; Translations: [Type 2 diabetes mellitus without complications] Onset: 3 07-19-2023 Chronic Diabetes mellitus without complication (11 sources) Hyperglycemia; Translations: [Other abnormal glucose] Onset: 2 Episodic Disorders of lipid metabolism (1 source) Pure hypercholesterolemia; Translations: [Pure hypercholesterolemia, unspecified] Onset: 3 07-19-2023 Chronic Esophageal disorders (1 source) Laryngopharyngeal reflux; Translations: [Gastro-esophageal reflux disease without esophagitis] Onset: 3 07-24-2023 Chronic Essential hypertension (17 sources) Essential hypertension; Translations: [Essential (primary) hypertension] Onset: 3 Chronic Fluid and electrolyte disorders (1 source) Hyperkalemia; Translations: [Hyperkalemia] Onset: 3 Episodic Heart valve disorders (17 sources) Aortic stenosis, non-rheumatic ; Translations: [Nonrheumatic aortic (valve) stenosis] Onset: 3 Chronic Hypertension with complications and secondary hypertension (10 sources) Hypertensive heart and chronic kidney disease without heart failure, with stage 1 through stage 4 chronic kidney disease, or unspecified chronic kidney disease; Translations: [Hypertensive chronic kidney disease with stage 1 through stage 4 chronic kidney disease, or unspecified chronic kidney disease] Onset: 4 Chronic Lymphadenitis (1 source) Localized enlarged lymph nodes Episodic Malaise and fatigue (3 sources) Weakness; Translations: [WEAKNESS] Onset: 3 Episodic Nutritional deficiencies (1 source) Vitamin D deficiency; Translations: [Vitamin D deficiency, unspecified] Onset: 7 07-19-2023 Chronic Occlusion or stenosis of precerebral arteries (3 sources) Occlusion and stenosis of bilateral carotid arteries; Translations: [Carotid artery stenosis] Onset: 3 Chronic Osteoarthritis (1 source) Unspecified osteoarthritis, unspecified site; Translations: [UNSPECIFIED OSTEOARTHRITIS UNS SITE] Onset: 3 Chronic Other aftercare (1 source) Other buttermaker (current) drug therapy; Translations: [OTH 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 CURRENT DRUG THERAPY] Onset: 3 Episodic Other [...] HYPERPARATHYROIDISM RENAL ORIGN] Onset: 3 Chronic Other diseases of kidney and ureters (1 source) Hyperparathyroidism due to renal insufficiency; Translations: [Secondary hyperparathyroidism of renal origin] Onset: 9 07-19-2023 Chronic Other eye disorders (1 source) Hemorrhage of left vitreous body; Translations: [Vitreous hemorrhage, left eye] Onset: 4 08-21-2023 Chronic Other lower respiratory disease (1 source) Shortness of breath; Translations: [SHORTNESS OF BREATH] Onset: 3 Episodic Other lower respiratory disease (1 source) Chronic cough; Translations: [Chronic cough] Onset: 3 07-24-2023 Episodic Other upper respiratory disease (1 source) Hoarse; Translations: [Dysphonia] Onset: 3 07-24-2023 Episodic Other upper respiratory infections (1 source) [...] (2 sources) Other specified postprocedural states Episodic Retinal detachments; defects; vascular occlusion; and retinopathy (2 sources) Central retinal vein occlusion with neovascularization; Translations: [Central retinal vein occlusion, left eye, with retinal neovascularization] Onset: 4 08-28-2023 Chronic Thyroid disorders (20 sources) Goiter; 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 [...] Classification Problem Date Documented Da te Episodic/Chronic Acute and unspecified renal failure (2 sources) Acute kidney failure, unspecified; Translations: [Acute renal failure syndrome] Onset: 11-06-2013 07-19-2023 Episodic Conditions associated with dizziness or vertigo (3 sources) Dizziness and giddiness; Translations: [Postural dizziness] Onset: 02-05-2023 Episodic Coronary atherosclerosis and other heart disease (3 sources) Presence of aortocoronary bypass graft; Translations: [PRESENCE AORTOCORONARY BYPASS GRAFT] Onset: 09-12-2022 Episodic Deficiency and other anemia (1 source) Anemia; Translations: [Anemia, unspecified] Onset: 02-19-2017 07-19-2023 Episodic Genitourinary symptoms and ill-defined conditions (1 source) Proteinuria; Translations: [Proteinuria, unspecified] Onset: 02-19-2017 Resolved: 07-19-2023 07-19-2023 Episodic Other bone disease and musculoskeletal deformities (1 source) Other specified disorders of bone density and structure, unspecified site; Translations: [OTH D/O BONE DEN STRUCT UNS SITE] Onset: 05-26-2022 Episodic Other screening for suspected conditions (not mental disorders or infectious disease) (4 sources) Encounter for screening mammogram for malignant neoplasm of breast; Translations: [ENC SCR MAMMO MALIG NEOPLASM BREAST] Onset: 05-23-2022 Episodic Residual codes; unclassified (1 source) Insomnia; Translations: [Insomnia, unspecified] Onset: 02-17-2013 07-19-2023 Episodic Syncope (2 sources) Syncope and collapse; Translations: [Syncope and collapse] Onset: 02-05-2023 Episodic Unclassified (1 source) Cough, unspecified type R05.9 Results Test Name Value Interpretation Reference Range Facility Left eye Ophthalmologic moira tmejoanaon 08-28-2023 [facility] Radiology Study observation (narrative) [facility] Follow-Upon 05-18-2023 Follow-Up [id number] Trisha Parish 1945 F Date Provider Department Center 05/18/2023 TOÑO SIMPSON HILTON Gal[facility] No family history on file Level of Service:55429 [place] OFFICE/OUTPATIENT ESTABLISHED LOW MDM 20-29 MIN Reason for Visit and Comments: Post-op TAVR [730] [facility] Office Visiton 04-11-2023 Follow-up visit [id number] Trisha Parish 1945 F Date Provider Department Center 04/11/2023 TOÑO SIMPSON [facility] L[facility] No family history on file Level of Service:82244 SC OFFICE/OUTPATIENT ESTABLISHED MOD MDM 30-39 MIN Reason for Visit and Comments: Follow-up [127961] - 1 week F/U [facility] Documentationon 04-05-2023 Documentation [id number] Trisha Parish 1945 F Date Provider Department [place] 04/05/2023 389-LINA LAMAS HV[facility] No family history on file Reason for Visit and Comments: Post-op [483] [facility] 30on 04-04-2023 30 Daily Case Managemen [...] Score: PT Recommendations: OT Recommendations: New Consults: [facility] 30 The patient is Moder ately [...] and maintained or improved Outcome: Progressing Normal [facility] 30 The patient is Moder ately [...] and maintained or improved Outcome: Progressing Normal [facility] B-TYPE NATRIURETIC PEPTIDEon 04-04-2022 Natriuretic peptide B (Bld) [Mass/Vol] 213 pg/mL High 0-100 [facility] Comment on above: Performed By: #### L [id number] ####[facility] ([facility] [place] [address] BASIC METABOLIC PANELon 03-08 Anion gap [Moles/Vol] 11 mmol/L Normal 7-20 [facility] Comment on above: Performed By: #### L [id number] #### [facility] (BEAKER) [address] [place] [address] Calcium [Mass/Vol] 8.7 mg/dL Normal 8.6-10.3 [facility] Comment on above: Performed By: #### L [id number] #### [facility] ([facility]) [address] [place] [address] Chloride [Moles/Vol] 109 mmol/L High 98-107 [facility] Comment on above: Performed By: #### L [id number] #### [facility] ([facility]) [address] [place] [address] CO2 [Moles/Vol] 20 mmol/L Low 21-31 [facility] Comment on above: Performed By: #### L [id number] #### [facility] [address] [place] [address] Creatinine [Mass/Vol] 1.58 mg/dL High 0.60-1.20 [facility] Comment on above: Performed By: #### L [id number] #### [facility] ([facility]) [address] [place] [address] GLOMERULAR FILTRATION RATE ML/MIN/1.73 SQ M.PREDICTED 33.3 mL/min/1.73m*2 Low >60.0 [facility] Comment on above: Result Comment: [facility]???s estimated glomerular filtration rate (eGFR) will no [...] group of individuals. Performed By: #### L [id number] #### [facility] ([facility]) [address] [place] [address] Glucose [Mass/Vol] 140 mg/dL High 70-100 [facility] Comment on above: Performed By: #### L [id number] #### [facility] ([facility]) [address] [place] [address] Potassium [Moles/Vol] 4.1 mmol/L Normal 3.5-5.1 [facility] Comment on above: Performed By: #### L [id number] #### [facility] ([facility]) [address] [place] [address] Sodium [Moles/Vol] 136 mmol/L Normal 136-145 [facility] Comment on above: Performed By: #### L [id number] #### [facility] ([facility]) [address] [place] [address] Urea nitrogen [Mass/Vol] 33 mg/dL High 7-25 [facility] Comment on above: Performed By: #### L [id number] #### [facility] ([facility]) [address] [place] [address] UREA NITROGEN/CREATININE (MASS RATIO) IN SER/PLAS 20.9 Normal [facility] Comment on above: Performed By: #### L [id number] #### [facility] ([facility]) [address] [place] [address] Anion gap [Moles/Vol] 13 mmol/L Normal 7-20 [facility] Comment on above: Performed By: #### L [id number] ####[facility] ([facility])[address] [place] [address] Calcium [Mass/Vol] 8.9 mg/dL Normal 8.6-10.3 [facility] Comment on above: Performed By: #### L [id number] ####[facility] ([facility])[address] [place] [address] Chloride [Moles/Vol] 110 mmol/L High 98-107 [facility] Comment on above: Performed By: #### L [id number] ####[facility] ([facility])[address] [place] [address] CO2 [Moles/Vol] 19 mmol/L Low 21-31 [facility] Comment on above: Performed By: #### L [id number] ####[facility] [place] [address] Creatinine [Mass/Vol] 1.61 mg/dL High 0.60-1.20 [facility] Comment on above: Performed By: #### L [id number] ####[facility] ([facility])[address] [place] [address] GLOMERULAR FILTRATION RATE ML/MIN/1.73 SQ M.PREDICTED 32.6 mL/min/1.73m*2 Low >60.0 [facility] Comment on above: Result Comment: [facility]???s estimated glomerular filtration rate (eGFR) will no [...] of individuals. Performed By: #### L [id number] ####[facility] ([facility])[address] [place] [address] Glucose [Mass/Vol] 95 mg/dL Normal 70-100 [facility] Comment on above: Performed By: #### L [id number] ####[facility] ([facility])[address] [place] [address] Potassium [Moles/Vol] 4.2 mmol/L Normal 3.5-5.1 [facility] Comment on above: Performed By: #### L [id number] ####[facility] ([facility])[address] [place] [address] Sodium [Moles/Vol] 138 mmol/L Normal 136-145 [facility] Comment on above: Performed By: #### L [id number] ####[facility] ([facility])[address] [place] [address] Urea nitrogen [Mass/Vol] 34 mg/dL High 7-25 [facility] Comment on above: Performed By: #### L [id number] ####[facility] ([facility])[address] [place] [address] UREA NITROGEN/CREATININE (MASS RATIO) IN SER/PLAS 21.1 Normal [facility] Comment on above: Performed By: #### L [id number] ####[facility] ([facility])[address] [place] [address] CBCon 04-04-2023 Erythrocyte distribution width (RBC) [Ratio] 14.6 % Normal 11.5-15.0 [facility] Comment on above: Performed By: #### L [id number] #### [facility] ([facility]) [address] [place] [address] ERYTHROCYTE MEAN CORPUSCULAR HEMOGLOBIN CONCENTRATION (G/DL) BY AUTOMATED 32.8 g/dL Normal 32.0-35.0 [facility] Comment on above: Performed By: #### L [id number] #### [facility] ([facility]) [address] [place] [address] Hematocrit (Bld) [Volume fraction] 30.8 % Low 36.0-48.0 [facility] Comment on above: Performed By: #### L [id number] #### [facility] ([facility]) [address] [place] [address] Hemoglobin (Bld) [Mass/Vol] 10.1 g/dL Low 12.0-15.0 [facility] Comment on above: Performed By: #### L [id number] #### [facility] ([facility]) [address] [place] [address] MCH (RBC) [Entitic mass] 29.3 pg Normal 27.0-33.0 [facility] Comment on above: Performed By: #### L [id number] #### [facility] ([facility]) [address] [place] [address] MCV (RBC) [Entitic vol] 89.3 fL Normal 82.0-98.0 [facility] Comment on above: Performed By: #### L [id number] #### [facility] ([facility]) [address] [place] [address] PLATELETS (10*3/UL) IN BLOOD AUTOMATED COUNT 126 10*3/uL Low 150-400 [facility] Comment on above: Performed By: #### L [id number] #### [facility] ([facility]) [address] [place] [address] RBC (Bld) [#/Vol] 3.45 10*6/uL Low 3.80-5.00 [facility] Comment on above: Performed By: #### L [id number] #### [facility] (BEAKER) [address] [place] [address] WBC (Bld) [#/Vol] 5.60 10*3/uL Normal 4.00-10.60 [facility] Comment on above: Performed By: #### L [id number] #### [facility] ([facility]) [address] [place] [address] DSon 04-04-2023 DS ----- ----- Attestation signed [...] Medications These medications were sent to [facility] [place] [address] [place] [address], [facility] [address] acetaminophen 325 mg tablet aspirin 81 mg [...] direct detection a (more content not included)... [facility] NURSNOTEon 04-04-2023 NURSNOTE Pt discharged home w ith by car [facility] 04-03-2023 30 The patient is Moder ately [...] monitored and maintained or improved Outcome: Progressing [facility] 04-03-2023 HP H&P reviewed. The pa vanessa was examined and there are no changes to the H&P. she was discussed at the multidisciplinary team meeting on 03/27/2023 with interventional cardiology and cardiothoracic surgery and deemed to be appropriate for TAVR and high risk candidate for SAVR. Shared decision making was performed with the patient and she agreed to TAVR. she is brought today for the procedure. [facility] MRSA/MSSA DNA NASALon 2022 MRSA DNA Negative Normal Negative [facility] Comment on above: Order Comment: Testi ng [...] preclude nasal colonization. Performed By: #### L [id number] ####[facility] ([facility])[address] [place] [address] MSSA DNA Negative Normal Negative [facility] Comment on above: Order Comment: Testi ng [...] preclude nasal colonization. Performed By: #### L [id number] ####[facility] ([facility] [place] [address] NURSNOTEon 04-03-2023 NURSNOTE Report called to Kameron hay RN. He denies questions/concerns. [facility] TYPE AND SCREENon 04-03-2023 AB SCREEN Negative Normal [facility] Comment on above: Performed By: #### L [id number] #### [facility] ([facility]) [address] [place] [address] ABO group Nom (Bld) B Normal [facility] Comment on above: Performed By: #### L [id number] #### [facility] ([facility]) [address] [place] [address] RH TYPE IN BLOOD Positive Normal [facility] Comment on above: Performed By: #### L [id number] #### [facility] (BEAKER) [address] [place] [address] Orders Onlyon 03-22-2023 Orders Only [id number] Trisha Parish 1945 F Date Provider Department Center 03/22/2023 MARGARET COLLINS [facility] [place] [facility] No family history on file Normal [facility] HPon 2023 HP [place] [facility]iology - [facility] Subjective Trisha Parish is a [...] In September 2022 she was admitted to [facility] with weakness. She was found to have [...] carvedilol (Co (more content not included)... Normal [facility] Office Visiton 2023 Follow-up visit [id number] Trisha Parish 1945 F Date Provider Department Center 2023 TOÑO SIMPSON [facility] No family history on file Level of Service:26820 SC OFFICE/OUTPATIENT ESTABLISHED HIGH MDM 40-54 MIN [facility] ANESon 02-23-2023 ANES ----- ----- Attestation [...] 02/23/23 1030 Procedure: TRANSESOPHAGEAL ECHO (ELENA) Location: [facility] V[facility] Vascular Lab Clinical [...] consented to blood products. Additional Equipment Requests Normal [facility] HPon 02-23-2023 ----- ----- Attestation signed by Matilda Valentin [...] there are no changes to the H&P. [facility] NURSNOTEon 02-23-2023 NURSNOTE Pt performed and pas sed bedside swallow study test. RN educated pt on d/c instructions. RN encouraged pt to voice any questions or concerns. Pt verbalizes no questions or concerns at this time. Pt was wheeled off of unit with all of belongings. [facility] HPon 02-21-2023 Cardiology Clinic No te [...] with presyncope NSTEMI (non-ST elevated myocardial infarction) ([facility]/HCC) Hx of CABG Severe aortic stenosis No family history on file. Social History Tobacco Use Smoking status: Never Smokeless tobacco: Never Substance Use Topics Alcohol use: Never Drug use: Never Update: 02/21/2023 She was hospitalized at [facility] for 3 days after presenting with dizziness [...] other elevated She was hospitalized 02/04-02/07/23 at [facility] and underwent coronary angiography and right heart [...] mouth in the morning., Disp: , Rfl: FreeStyle Stephy 2 Sensor kit, , Disp: , Rfl: hydrALAZINE (Apresoline) 25 mg tablet, Take 25 mg by mouth in the morning and at bedtime., Disp: , Rfl: MELATONIN ORAL, Take by mouth 4 (four) times a week. Sun,Tues,Wed,Fri, Disp: , Rfl: NIFEdipine CC (Adalat CC) 60 mg 24 hr tablet, Take 1 tablet (60 mg) by mouth before breakfast. Do not crush, chew, or split., Disp: 30 tablet, Rfl: 0 sennosides-docusate sodium (Edna-Colace) 8.6-50 mg tablet, Take 1 tablet by mouth in the morning. Wed,Thur,Sat,Sun, Disp: , Rfl: anastrozole (Arimidex) 1 mg [...] 6.44 02/06 (more content not included)... Normal [facility] Office Visiton 02-21-2023 Follow-up visit [id number] Trisha Parish 1945 F Date Provider Department Center 02/21/2023 [id number] [facility] C[facility] No family history on file Level of Service:78222 SC OFFICE/OUTPATIENT ESTABLISHED MOD MDM 30-39 MIN Reason for Visit and Comments: Follow-up [174838] - Pt discharge from hospital 02/20/23 for high potassium , dizziness Normal [facility] Basic Metabolic Panelon 07- Anion gap [Moles/Vol] 10.7 mmol/L Normal 6.0-15.0 [facility] Comment on above: Performed By: #### B MP ####[place] [address] [place] [id number] [facility] Calcium [Mass/Vol] 8.4 mg/dL Low 8.6-10.3 [facility] Comment on above: Performed By: #### B MP ####[place] [address] [place] [id number] [facility] Chloride [Moles/Vol] 109 mmol/L High 98-107 [facility] Comment on above: Performed By: #### B MP ####[place] [address] [place] [id number] [facility] CO2 [Moles/Vol] 22.7 mmol/L Normal 21.0-31.0 [facility] Comment on above: Performed By: #### B MP ####[place] [address] [place] [id number] [facility] Creatinine [Mass/Vol] 1.68 mg/dL High 0.60-1.20 [facility] Comment on above: Performed By: #### B MP ####[place] [id number] [facility] Creatinine Clr Calc Pharmacy 24.22 Normal [facility] Comment on above: Result Comment: PERF ORMED BY: [facility] [address] [place] [id number] PATHOLOGIST CHIEF MEDIA OFFICER MELISSA QUINN M.D. Performed By: #### B MP ####[place] [id number] [facility] GFR/1.73 sq M.predicted MDRD (S/P/Bld) [Vol rate/Area] 31.134 mL/min/{1.73_m2} Normal [facility] Comment on above: Performed By: #### B MP ####[place] [id number] [facility] Glucose [Mass/Vol] 94 mg/dL Normal 70-100 [facility] Comment on above: Result Comment: [place] Glucose Reference Range is dependent on time and content of last meal. Glucose of more than 200 mg/dL in a nonstressed, ambulatory subject supports the diagnosis of Diabetes Mellitus. ADA recommended reference range Performed By: #### B MP ####[facility] [place] [address] [facility] Potassium [Moles/Vol] 4.4 mmol/L Normal 3.5-5.1 [facility] Comment on above: Performed By: #### B MP ####[facility] [place] [address] [place] Sodium [Moles/Vol] 138 mmol/L Normal 136-145 [facility] Comment on above: Performed By: #### B MP ####[facility] [place] [address] [place] Urea nitrogen [Mass/Vol] 34 mg/dL High 7-25 [facility] Comment on above: Performed By: #### B MP ####[place] [address] [place] [id number] [facility] Glucose Poct Glucometerson 0 02-20-2023 Glucose [Mass/Vol] 92 mg/dL Normal [facility] Comment on above: Result Comment: [facility] Glucose Reference Range is dependent on time and content of last meal. Glucose of more than 200 mg/dL in a nonstressed, ambulatory subject supports the diagnosis of Diabetes Mellitus. PERFORMED BY: [place] [address] PATHOLOGIST CHIEF MEDIA OFFICER MELISSA QUINN M.D. Performed By: #### G LORENZO ####Point of Care testing, Basic Metabolic Panelon 02-03 Anion gap [Moles/Vol] 9.8 mmol/L Normal 6.0-15.0 [facility] Comment on above: Performed By: #### B MP #### [facility] [address] [place] [id number] [place] Calcium [Mass/Vol] 8.4 mg/dL Low 8.6-10.3 [facility] Comment on above: Performed By: #### B MP #### [facility] [address] [place] [id number] [place] Chloride [Moles/Vol] 108 mmol/L High 98-107 [facility] Comment on above: Performed By: #### B MP #### [facility] [address] [place] [address] [place] CO2 [Moles/Vol] 25.3 mmol/L Normal 21.0-31.0 [facility] Comment on above: Performed By: #### B MP #### [facility] [address] [place] [address] [place] Creatinine [Mass/Vol] 1.62 mg/dL High 0.60-1.20 [facility] Comment on above: Performed By: #### B MP #### [place] [address] [place] Creatinine Clr Calc Pharmacy 25.11 Normal [facility] Comment on above: Result Comment: PERF ORMED BY: [place] [address] PATHOLOGIST CHIEF MEDIA OFFICER MELISSA QUINN M.D. Performed By: #### B MP #### [address] GFR/1.73 sq M.predicted MDRD (S/P/Bld) [Vol rate/Area] 32.523 mL/min/{1.73_m2} Normal [facility] Comment on above: Performed By: #### B MP #### [address] Glucose [Mass/Vol] 91 mg/dL Normal 70-100 [facility] Comment on above: Result Comment: [place] Glucose Reference Range is dependent on time and content of last meal. Glucose of more than 200 mg/dL in a nonstressed, ambulatory subject supports the diagnosis of Diabetes Mellitus. ADA recommended reference range Performed By: #### B MP #### [place] [address] [place] Potassium [Moles/Vol] 4.1 mmol/L Normal 3.5-5.1 [facility] Comment on above: Performed By: #### B MP #### [place] [address] [place] Sodium [Moles/Vol] 139 mmol/L Normal 136-145 [facility] Comment on above: Performed By: #### B MP #### [facility] [address] [place] [address] [place] Urea nitrogen [Mass/Vol] 34 mg/dL High 02-27 [facility] Comment on above: Performed By: #### B MP #### [facility] [address] [place] [address] [place] Glucose Poct Glucometerson 0 02-19-2023 Glucose [Mass/Vol] 143 mg/dL Normal [facility] Comment on above: Result Comment: [facility] Glucose Reference Range is dependent on time and content of last meal. Glucose of more than 200 mg/dL in a nonstressed, ambulatory subject supports the diagnosis of Diabetes Mellitus. PERFORMED BY: [place] [address] PATHOLOGIST CHIEF MEDIA OFFICER MELISSA QUINN M.D. Performed By: #### G LULS #### Point of Care testing , Glucose [Mass/Vol] 101 mg/dL Normal [facility] Comment on above: Result Comment: [facility] Glucose Reference Range is dependent on time and content of last meal. Glucose of more than 200 mg/dL in a nonstressed, ambulatory subject supports the diagnosis of Diabetes Mellitus. PERFORMED BY: [place] [address] PATHOLOGIST CHIEF MEDIA OFFICER MELISSA QUINN M.D. Performed By: #### G LULS #### Point of Care testing , US renal BIon 02-19-2023 US renal BI [facility] Main [place] [id number] Ultrasound Report Signed Patient: Trisha Parish MR#: [id number] : 1945 Acct:[id number] Age/Sex: 77 / F ADM Date: 02/17/23 Loc: Room: [address] [place] [address] Type: ADM IN Attending Dr: Mikel Mir MD Ordering Provider: Mikel Mir MD Date of Service: 02/19/23 US/US renal BI: JASMIN r/o [place] or obstruction Copies to: Mikel Mir MD [...] findings. Impression dictated by: Baldo Quintanilla Jr., DMilton02/19/2023 3:58 PM Dictation Location: [place] [address] Tech: Jenna Corado Transcribed By: [facility] 02/19/231557 Dictated By: Baldo Quintanilla Jr, DO 02/19/231556 Signed By: 02/19/231557 Normal [facility] Coagulation Profileon 2022 aPTT Coag (Bld) [Time] 31.5 s Normal 25.1-36.5 [facility] Comment on above: Result Comment: PERF ORMED BY: [facility] [address] [facility] [address] [place] [address] PATHOLOGIST CHIEF MEDIA OFFICER MELISSA QUINN M.D. Performed By: #### C MP, MG, PP, CBCNO ####[place] [address] [place] [address] [facility] INR Coag (PPP) [Relative time] 1.3 {INR} Normal [facility] Comment on above: Result Comment: INR [...] By: #### C MP, MG, PP, CBCNO ####[place] [address] [place] [address] [facility] PT Coag (PPP) [Time] 15.2 s High 9.0-12.9 [facility] Comment on above: Performed By: #### C MP, MG, PP, CBCNO ####[address] Comprehensive Metabolic Pane otto 02-18-2023 Albumin [Mass/Vol] 3.5 g/dL Normal 3.5-5.7 [facility] Comment on above: Performed By: #### C MP, MG, PP, CBCNO ####[address] Albumin/Globulin [Mass ratio] 1.3 {ratio} Normal [facility] Comment on above: Performed By: #### C MP, MG, PP, CBCNO ####[address] ALP [Catalytic activity/Vol] 83 U/L Normal 34-104 [facility] Comment on above: Performed By: #### C MP, MG, PP, CBCNO ####[address] ALT [Catalytic activity/Vol] 13 U/L Normal 7-52 [facility] Comment on above: Performed By: #### C MP, MG, PP, CBCNO ####[address] Anion gap [Moles/Vol] 11.0 mmol/L Normal 6.0-15.0 [facility] Comment on above: Performed By: #### C MP, MG, PP, CBCNO ####[address] AST [Catalytic activity/Vol] 16 U/L Normal 13-39 [facility] Comment on above: Performed By: #### C MP, MG, PP, CBCNO ####[address] Bilirubin [Mass/Vol] 0.7 mg/dL Normal 0.3-1.0 [facility] Comment on above: Performed By: #### C MP, MG, PP, CBCNO ####[place] [id number] [place] Calcium [Mass/Vol] 8.4 mg/dL Low 8.6-10.3 [facility] Comment on above: Performed By: #### C MP, MG, PP, CBCNO ####[address] Chloride [Moles/Vol] 108 mmol/L High 98-107 [facility] Comment on above: Performed By: #### C MP, MG, PP, CBCNO ####[address] CO2 [Moles/Vol] 24.4 mmol/L Normal 21.0-31.0 [facility] Comment on above: Performed By: #### C MP, MG, PP, CBCNO ####[address] Creatinine [Mass/Vol] 1.91 mg/dL High 0.60-1.20 [facility] Comment on above: Performed By: #### C MP, MG, PP, CBCNO ####[address] Creatinine Clr Calc Pharmacy 21.30 [facility] Comment on above: Performed By: #### C MP, MG, PP, CBCNO ####[address] GFR/1.73 sq M.predicted MDRD (S/P/Bld) [Vol rate/Area] 26.691 mL/min/{1.73_m2} [facility] Comment on above: Performed By: #### C MP, MG, PP, CBCNO ####[address] Globulin (S) [Mass/Vol] 2.7 g/dL [facility] Comment on above: Performed By: #### C MP, MG, PP, CBCNO ####[address] Glucose [Mass/Vol] 92 mg/dL Normal 70-100 [facility] Comment on above: Result Comment: [place] Glucose Reference Range is dependent on time and content of last meal. Glucose of more than 200 mg/dL in a nonstressed, ambulatory subject supports the diagnosis of Diabetes Mellitus. ADA recommended reference range Performed By: #### C MP, MG, PP, CBCNO ####[facility] Potassium [Moles/Vol] 4.4 mmol/L Normal 3.5-5.1 [facility] Comment on above: Performed By: #### C MP, MG, PP, CBCNO ####[address] Protein [Mass/Vol] 6.2 g/dL Low 6.4-8.9 [facility] Comment on above: Performed By: #### C MP, MG, PP, CBCNO ####[address] Sodium [Moles/Vol] 139 mmol/L Normal 136-145 [facility] Comment on above: Performed By: #### C MP, MG, PP, CBCNO ####[address] Urea nitrogen [Mass/Vol] 35 mg/dL High 7-25 [facility] Comment on above: Performed By: #### C MP, MG, PP, CBCNO ####[address] Dipstick and Microscopicon 0 02-18-2023 Appearance (U) Clear Normal Clear [facility] Comment on above: Order Comment: Name Collection Type:: Clean-Voided Midstream Performed By: #### A DDONUAPLUS, CUU #### [facility] [address] [place] [address] [place] Bacteria,Urine None Seen Normal None Seen [facility] Comment on above: Order Comment: Name Collection Type:: Clean-Voided Midstream Performed By: #### A DDONUAPLUS, CUU #### [place] [address] [place] Bilirubin,Urine Negative Normal Negative [facility] Comment on above: Order Comment: Name Collection Type:: Clean-Voided Midstream Performed By: #### A DDONUAPLUS, CUU #### [facility] [address] [place] [address] Color (U) Yellow Normal Yellow [facility] Comment on above: Order Comment: Name Collection Type:: Clean-Voided Midstream Performed By: #### A DDONUAPLUS, CUU #### [address] Glucose Ql (U) Normal Normal Normal [facility] Comment on above: Order Comment: Name Collection Type:: Clean-Voided Midstream Performed By: #### A DDONUAPLUS, CUU #### [address] Hyaline Casts,Urine None Seen Normal 0-8 [facility] Comment on above: Order Comment: Name Collection Type:: Clean-Voided Midstream Result Comment: PERF ORMED BY: [place] [address] PATHOLOGIST CHIEF MEDIA OFFICER MELISSA QUINN M.D. Performed By: #### A DDONUAPLUS, CUU #### [address] Ketones Ql (U) Negative Normal Negative [facility] Comment on above: Order Comment: Name Collection Type:: Clean-Voided Midstream Performed By: #### A DDONUAPLUS, CUU #### [address] Leukocyte esterase Test strip Ql (U) 3+ High Negative [facility] Comment on above: Order Comment: Name Collection Type:: Clean-Voided Midstream Performed By: #### A DDONUAPLUS, CUU #### [place] [address] [place] Nitrite,Urine Negative Normal Negative [facility] Comment on above: Order Comment: Name Collection Type:: Clean-Voided Midstream Performed By: #### A DDONUAPLUS, CUU #### [address] Occult Blood,Urine Negative Normal Negative [facility] Comment on above: Order Comment: Name Collection Type:: Clean-Voided Midstream Result Comment: PERF ORMED BY: [place] [address] PATHOLOGIST CHIEF MEDIA OFFICER MELISSA QUINN M.D. Performed By: #### A DDONUAPLUS, CUU #### [address] pH (U) 7.5 [pH] Normal 5.0-9.0 [facility] Comment on above: Order Comment: Name Collection Type:: Clean-Voided Midstream Performed By: #### A DDONUAPLUS, CUU #### [address] Protein,Urine Negative Normal Negative [facility] Comment on above: Order Comment: Name Collection Type:: Clean-Voided Midstream Performed By: #### A DDONUAPLUS, CUU #### [address] RBC LM.HPF (Urine sed) [#/Area] 0 /[HPF] Normal 0-4 [facility] Comment on above: Order Comment: Name Collection Type:: Clean-Voided Midstream Performed By: #### A DDONUAPLUS, CUU #### [address] Specificy [place],Urine 1.006 Normal 1.001-1.030 [facility] Comment on above: Order Comment: Name Collection Type:: Clean-Voided Midstream Performed By: #### A DDONUAPLUS, CUU #### [address] Squamous Epithelial Cell,Urine None Seen Normal 0-2 [facility] Comment on above: Order Comment: Name Collection Type:: Clean-Voided Midstream Performed By: #### A DDONUAPLUS, CUU #### [address] Urobilinogen,Urine Normal Normal Normal [facility] Comment on above: Order Comment: Name Collection Type:: Clean-Voided Midstream Performed By: #### A DDONUAPLUS, CUU #### [facility] [address] WBC,Urine 5-9 High 0-4 [facility] Comment on above: Order Comment: Name Collection Type:: Clean-Voided Midstream Performed By: #### A DDONUAPLUS, CUU #### [facility] [address] ECG 12 lead ECGon 02-18-2023 ECG 12 lead ECG [facility] Main [place] [address] [place] [address] Electrocardiograph Report Signed Patient: Trisha Parish MR#: [id number] : 1945 Acct:[id number] Age/Sex: 77 / F ADM Date: 02/17/23 Loc: Room: [address] [place] [address] Type: ADM IN Attending Dr: Kevin Mejia [...] By Nessa Abdi MD 0 02/18/23 1047 [facility] Glucose Poct Glucometerson 0 02-18-2023 Glucose [Mass/Vol] 94 mg/dL Normal [facility] Comment on above: Result Comment: [place] Glucose Reference Range is dependent on time and content of last meal. Glucose of more than 200 mg/dL in a nonstressed, ambulatory subject supports the diagnosis of Diabetes Mellitus. PERFORMED BY: [place] [address] PATHOLOGIST CHIEF MEDIA OFFICER MELISSA QUINN M.D. Performed By: #### G LULS #### Point of Care testing , Glucose [Mass/Vol] 194 mg/dL Normal [facility] Comment on above: Result Comment: [facility] Glucose Reference Range is dependent on time and content of last meal. Glucose of more than 200 mg/dL in a nonstressed, ambulatory subject supports the diagnosis of Diabetes Mellitus. PERFORMED BY: [place] [address] PATHOLOGIST CHIEF MEDIA OFFICER MELISSA QUINN M.D. Performed By: #### G LULS #### Point of Care testing , Hemogram CBC Without Diffon 02-18-2023 Erythrocyte distribution width (RBC) [Ratio] 14.4 % Normal 11.9-15.3 [facility] Comment on above: Performed By: #### C MP, MG, PP, CBCNO #### [facility] [address] [place] [address] Hematocrit (Bld) [Volume fraction] 32.7 % Low 34.0-46.4 [facility] Comment on above: Performed By: #### C MP, MG, PP, CBCNO #### [facility] [address] Hemoglobin (Bld) [Mass/Vol] 10.8 g/dL Low 11.8-15.4 [facility] Comment on above: Performed By: #### C MP, MG, PP, CBCNO #### [facility] [address] [place] [address] [place] MCH (RBC) [Entitic mass] 28.8 pg Normal 24.7-34.3 [facility] Comment on above: Performed By: #### C MP, MG, PP, CBCNO #### [facility] [address] [place] [address] [place] MCV (RBC) [Entitic vol] 87.0 fL Normal 80-100 [facility] Comment on above: Performed By: #### C MP, MG, PP, CBCNO #### [address] Mean Corpuscular HGB Conc 33.1 g/dL Normal 32.0-35.0 [facility] Comment on above: Performed By: #### C MP, MG, PP, CBCNO #### [address] Platelet mean volume (Bld) [Entitic vol] 10.2 fL Normal 6.3-10.7 [facility] Comment on above: Result Comment: PERF ORMED BY: [place] [address] PATHOLOGIST CHIEF MEDIA OFFICER MELISSA QUINN M.D. Performed By: #### C MP, MG, PP, CBCNO #### [address] Platelets (Bld) [#/Vol] 185 10*3/uL Normal 150-450 [facility] Comment on above: Performed By: #### C MP, MG, PP, CBCNO #### [address] RBC (Bld) [#/Vol] 3.76 10*6/uL Normal 3.60-5.00 [facility] Comment on above: Performed By: #### C MP, MG, PP, CBCNO #### [address] WBC (Bld) [#/Vol] 7.2 10*3/uL Normal 3.8-11.6 [facility] Comment on above: Performed By: #### C MP, MG, PP, CBCNO #### [address] Magnesiumon 02-18-2023 Magnesium [Mass/Vol] 1.9 mg/dL Normal 1.9-2.7 [facility] Comment on above: Result Comment: PERF ORMED BY: [address] [place] [address] PATHOLOGIST CHIEF MEDIA OFFICER MELISSA QUINN M.D. Performed By: #### C MP, MG, PP, CBCNO ####[facility] [id number] Troponin I High Sensitivityo n 02-18-2023 Troponin I High Sensitivity 55.0 pg/mL Off scale high 0.0-15.0 [facility] Comment on above: Result Comment: Crit ical Result : Called to and read back by: ROYAL DAILY at: 02/18/2023 07:39:39 by:[id number] PERFORMED BY: [place] [address] PATHOLOGIST CHIEF MEDIA OFFICER MELISSA QUINN M.D. Performed By: #### H S TROP #### [facility] [address] [place] [address] Urine Cultureon 02-18-2023 Bacteria identified Cx Nom (U) >100,000 colonies/ml mixed bacterial skin contaminants 2 Days PERFORMED BY: [place] [address] PATHOLOGIST CHIEF MEDIA OFFICER MELISSA QUINN M.D. Normal [facility] Comment on above: Performed By: #### A DDONUADINAH, CUU #### [facility] [address] [place], [place] [id number] [facility] Telephoneon 02-16-2023 Telephone [id number] Trisha Parish E 1945 F Date Provider Department Center 02/16/2023 WILY ASHLEY [facility] [place] [facility] No family history on file Normal [facility] Orders Onlyon 02-09-2023 Orders Only [id number] Trisha Parish E 1945 Date Provider Department Center 02/09/2023 MARGARET COLLINS [facility] [place] [facility] No family history on file Normal [facility] 30on 02-07-2023 30 The patient is Moder ately Stable - Low risk of patient condition declining or worsening The patient's goals for the shift include comfort The clinical goals for the shift include VSS Over the shift, the patient did not make progress toward the following goals. Barriers to progression include . Recommendations to address these barriers include . Normal [facility] 30 The patient is Moder ately Stable - Low risk of patient condition declining or worsening The patient's goals for the shift include comfort, rest The clinical goals for the shift include stable Over the shift, the patient did not make progress toward the following goals. Barriers to progression include . Recommendations to address these barriers include . Normal [facility] BASIC METABOLIC PANELon 07-0 Anion gap [Moles/Vol] 10 mmol/L Normal 7-20 [facility] Comment on above: Performed By: #### L [id number] ####[facility] ([facility])[address] [place] [address] Calcium [Mass/Vol] 8.6 mg/dL Normal 8.6-10.3 [facility] Comment on above: Performed By: #### L [id number] ####[facility] ([facility] [place] [address] Chloride [Moles/Vol] 109 mmol/L High 98-107 [facility] Comment on above: Performed By: #### L [id number] ####[facility] [place] [address] CO2 [Moles/Vol] 25 mmol/L Normal 21- [facility] Comment on above: Performed By: #### L [id number] ####[facility] ([facility] [employer] [place] [address] Creatinine [Mass/Vol] 1.40 mg/dL High 0.60-1.20 [facility] Comment on above: Performed By: #### L [id number] ####[facility] ([facility])[address] [employer] [facility] [place] [address] GLOMERULAR FILTRATION RATE ML/MIN/1.73 SQ M.PREDICTED 38.7 mL/min/1.73m*2 Low >60.0 [facility] Comment on above: Result Comment: [facility]???s estimated glomerular filtration rate (eGFR) will no [...] of individuals. Performed By: #### L [id number] ####[facility] ([facility])[address] [place] [address] Glucose [Mass/Vol] 115 mg/dL High 70-100 [facility] Comment on above: Performed By: #### L [id number] ####[facility] ([facility])[address] [place] [address] Potassium [Moles/Vol] 3.9 mmol/L Normal 3.5-5.1 [facility] Comment on above: Performed By: #### L [id number] ####[facility] ([facility])[address] [place] [address] Sodium [Moles/Vol] 140 mmol/L Normal 136-145 [facility] Comment on above: Performed By: #### L [id number] ####[facility] ([facility])[address] [place] [address] Urea nitrogen [Mass/Vol] 32 mg/dL High 7-25 [facility] Comment on above: Performed By: #### L [id number] ####[facility] ([facility])[address] [place] [address] UREA NITROGEN/CREATININE (MASS RATIO) IN SER/PLAS 22.9 Normal [facility] Comment on above: Performed By: #### L [id number] ####[facility] ([facility])[address] [place] [address] MAGNESIUMon 02-07-2023 Magnesium [Mass/Vol] 2.0 mg/dL Normal 1.9-2.7 [facility] Comment on above: Performed By: #### L [id number] #### [facility] ([facility]) [address] [place] [address] BASIC METABOLIC PANELon 07-0 Anion gap [Moles/Vol] 10 mmol/L Normal 7-20 [facility] Comment on above: Performed By: #### L [id number] #### [facility] ([facility] [address] [place] [address] Calcium [Mass/Vol] 8.6 mg/dL Normal 8.6-10.3 [facility] Comment on above: Performed By: #### L [id number] #### [facility] ([facility] [address] [place] [address] Chloride [Moles/Vol] 109 mmol/L High 98-107 [facility] Comment on above: Performed By: #### L [id number] #### [facility] ([facility]) [address] [place] [address] CO2 [Moles/Vol] 25 mmol/L Normal 21-31 [facility] Comment on above: Performed By: #### L [id number] #### [facility] ([facility]) [address] [place] [address] Creatinine [Mass/Vol] 1.32 mg/dL High 0.60-1.20 [facility] Comment on above: Performed By: #### L [id number] #### [facility] ([facility]) [address] [place] [address] GLOMERULAR FILTRATION RATE ML/MIN/1.73 SQ M.PREDICTED 41.6 mL/min/1.73m*2 Low >60.0 [facility] Comment on above: Result Comment: [facility]???s estimated glomerular filtration rate (eGFR) will no [...] group of individuals. Performed By: #### L [id number] #### [facility] ([facility]) [address] [place] [address] Glucose [Mass/Vol] 142 mg/dL High 70-100 [facility] Comment on above: Performed By: #### L [id number] #### [facility] ([facility]) [address] [place] [address] Potassium [Moles/Vol] 3.8 mmol/L Normal 3.5-5.1 [facility] Comment on above: Performed By: #### L [id number] #### [facility] ([facility]) [address] [place] [address] Sodium [Moles/Vol] 140 mmol/L Normal 136-145 [facility] Comment on above: Performed By: #### L [id number] #### [facility] ([facility]) [address] [place] [address] Urea nitrogen [Mass/Vol] 31 mg/dL High 7-25 [facility] Comment on above: Performed By: #### L [id number] #### [facility] ([facility]) [address] [place] [address] UREA NITROGEN/CREATININE (MASS RATIO) IN SER/PLAS 23.5 Normal [facility] Comment on above: Performed By: #### L [id number] #### [facility] ([facility]) [address] [place] [address] CBCon 02-06-2023 Erythrocyte distribution width (RBC) [Ratio] 14.1 % Normal 11.5-15.0 [facility] Comment on above: Performed By: #### L [id number] #### [facility] ([facility]) [address] [place] [address] ERYTHROCYTE MEAN CORPUSCULAR HEMOGLOBIN CONCENTRATION (G/DL) BY AUTOMATED 33.6 g/dL Normal 32.0-35.0 [facility] Comment on above: Performed By: #### L [id number] #### [facility] ([facility]) [address] [place] [address] Hematocrit (Bld) [Volume fraction] 33.3 % Low 36.0-48.0 [facility] Comment on above: Performed By: #### L [id number] #### [facility] ([facility]) [address] [place] [address] Hemoglobin (Bld) [Mass/Vol] 11.2 g/dL Low 12.0-15.0 [facility] Comment on above: Performed By: #### L [id number] #### [facility] ([facility]) [address] [place] [address] MCH (RBC) [Entitic mass] 29.3 pg Normal 27.0-33.0 [facility] Comment on above: Performed By: #### L [id number] #### [facility] ([facility]) [address] [place] [address] MCV (RBC) [Entitic vol] 87.2 fL Normal 82.0-98.0 [facility] Comment on above: Performed By: #### L [id number] #### [facility] ([facility]) [address] [place] [address] PLATELETS (10*3/UL) IN BLOOD AUTOMATED COUNT 152 10*3/uL Normal 150-400 [facility] Comment on above: Performed By: #### L [id number] #### [facility] ([facility]) [address] [place] [address] RBC (Bld) [#/Vol] 3.82 10*6/uL Normal 3.80-5.00 [facility] Comment on above: Performed By: #### L [id number] #### [facility] ([facility]) [address] [place] [address] WBC (Bld) [#/Vol] 6.44 10*3/uL Normal 4.00-10.60 [facility] Comment on above: Performed By: #### L [id number] #### [facility] ([facility]) [address] [place] [address] CONSULTon 02-06-2023 CONSULT Inpatient consult to Cardiothoracic [...] per patient for which she saw her clinical quality rn Dr. Soto- medications were adjusted and pacemaker [...] has a past medical history of A-fib ([facility]), Cancer ([facility]), Coronary artery disease, Hypertension, Myocardial infarct (CMS/HCC), and Stroke (CMS/HCC). Surgical History She has a past surgical [...] is not (more content not included)... Normal [facility] MAGNESIUMon 02-06-2023 Magnesium [Mass/Vol] 1.7 mg/dL Low 1.9-2.7 [facility] Comment on above: Performed By: #### L [id number] #### [facility] ([facility]) [address] [place] [address] 30on 02-05-2023 30 The patient is Moder [...] and maintained or improved Outcome: Progressing Normal [facility] 30 Daily Case Managemen t Update Multidisciplinary rounds have been completed. Barriers to Discharge: Stress test today. NPO. Cardiac cath ordered. Trend trops (currently 0.25). Diet: Dietary Orders (From admission, onward) Start Ordered 02/05/23 034 Diet NPO Diet effective now Comments: Sips with medications Question: Reason for NPO: Answer: elevated trop, may need any repeat testing 02/05/23 0345 Physician Expected Discharge Date: 02/06/2023 Discharge Delays: PT Six Click Score: OT Six Click Score: PT Recommendations: OT Recommendations: New Consults: Normal [facility] 30 Problem: Pain - Adul t Goal: [...] Flowsheets (Taken 02/05/2023745) Free from fall injury: [place] fall precautions as indicated by assessment Educate [...] goals for the shift include vss Normal [facility] 30 The patient is Moder ately Stable - Low risk of patient condition declining or worsening The patient's goals for the shift include comfort The clinical goals for the shift include vss Normal [facility] BASIC METABOLIC PANELon 07- Anion gap [Moles/Vol] 12 mmol/L Normal - [facility] Comment on above: Performed By: #### L [id number] #### [facility] ([facility]) [address] [place] [place] [address] Calcium [Mass/Vol] 8.8 mg/dL Normal 8.6-10.3 [facility] Comment on above: Performed By: #### L [id number] #### [facility] ([facility]) [address] [place] [address] Chloride [Moles/Vol] 107 mmol/L Normal 98-107 [facility] Comment on above: Performed By: #### L [id number] #### [facility] ([facility]) [address] [place] [address] CO2 [Moles/Vol] 25 mmol/L Normal 21-31 [facility] Comment on above: Performed By: #### L [id number] #### [facility] ([facility]) [address] [place] [address] Creatinine [Mass/Vol] 1.18 mg/dL Normal 0.60-1.20 [facility] Comment on above: Performed By: #### L [id number] #### [facility] ([facility]) [address] [place] [address] GLOMERULAR FILTRATION RATE ML/MIN/1.73 SQ M.PREDICTED 47.6 mL/min/1.73m*2 Low >60.0 [facility] Comment on above: Result Comment: [facility]???s estimated glomerular filtration rate (eGFR) will no [...] individuals. Performed By: #### L [id number] #### [facility] ([facility]) [address] [place] [address] Glucose [Mass/Vol] 99 mg/dL Normal 70-100 [facility] Comment on above: Performed By: #### L [id number] #### [facility] ([facility] [address] [place] [address] Potassium [Moles/Vol] 3.8 mmol/L Normal 3.5-5.1 [facility] Comment on above: Performed By: #### L [id number] #### [facility] ([facility] [address] [place] [address] Sodium [Moles/Vol] 140 mmol/L Normal 136-145 [facility] Comment on above: Performed By: #### L [id number] #### [facility] ([facility] [address] [place] [address] Urea nitrogen [Mass/Vol] 28 mg/dL High 7-25 [facility] Comment on above: Performed By: #### L [id number] #### [facility] ([facility]) [address] [place] [address] UREA NITROGEN/CREATININE (MASS RATIO) IN SER/PLAS 23.7 Normal [facility] Comment on above: Performed By: #### L [id number] #### [facility] ([facility]) [address] [place] [address] Anion gap [Moles/Vol] 12 mmol/L Normal 7-20 [facility] Comment on above: Performed By: #### L [id number] #### [facility] ([facility]) [address] [place] [address] Calcium [Mass/Vol] 9.0 mg/dL Normal 8.6-10.3 [facility] Comment on above: Performed By: #### L [id number] #### [facility] ([facility] [address] [place] [address] Chloride [Moles/Vol] 107 mmol/L Normal 98-107 [facility] Comment on above: Performed By: #### L [id number] #### [facility] ([facility]) [address] [place] [address] CO2 [Moles/Vol] 23 mmol/L Normal 21-31 [facility] Comment on above: Performed By: #### L [id number] #### [facility] ([facility] [address] [place] [address] Creatinine [Mass/Vol] 1.12 mg/dL Normal 0.60-1.20 [facility] Comment on above: Performed By: #### L [id number] #### [facility] ([facility]) [address] [place] [address] GLOMERULAR FILTRATION RATE ML/MIN/1.73 SQ M.PREDICTED 50.6 mL/min/1.73m*2 Low >60.0 [facility] Comment on above: Result Comment: [facility]???s estimated glomerular filtration rate (eGFR) will no [...] individuals. Performed By: #### L [id number] #### [facility] ([facility]) [address] [place] [address] Glucose [Mass/Vol] 121 mg/dL High 70-100 [facility] Comment on above: Performed By: #### L [id number] #### [facility] ([facility]) [address] [place] [address] Potassium [Moles/Vol] 3.8 mmol/L Normal 3.5-5.1 [facility] Comment on above: Performed By: #### L [id number] #### [facility] ([facility]) [address] [place] [place] [address] Sodium [Moles/Vol] 138 mmol/L Normal 136-145 [facility] Comment on above: Performed By: #### L [id number] #### [facility] ([facility] [address] [place] [place] [address] Urea nitrogen [Mass/Vol] 28 mg/dL High 7-25 [facility] Comment on above: Performed By: #### L [id number] #### [facility] ([facility]) [address] [place] [address] UREA NITROGEN/CREATININE (MASS RATIO) IN SER/PLAS 25.0 Normal [facility] Comment on above: Performed By: #### L [id number] #### [facility] ([facility]) [address] [place] CBC WITH AUTO DIFFERENTIALon 02-05-2023 Basophils (Bld) [#/Vol] 0.03 10*3/uL Normal 0.00-0.20 [facility] Comment on above: Performed By: #### L [id number] #### [facility] ([facility]) [address] [place] [address] Basophils/100 WBC (Bld) 0.4 % Normal 0.0-1.0 [facility] Comment on above: Performed By: #### L [id number] #### [facility] ([facility]) [address] [place] [address] Eosinophils (Bld) [#/Vol] 0.65 10*3/uL High 0.00-0.50 [facility] Comment on above: Performed By: #### L [id number] #### [facility] ([facility]) [address] [place] [address] Eosinophils/100 WBC (Bld) 8.6 % High 0.0-6.0 [facility] Comment on above: Performed By: #### L [id number] #### [facility] ([facility]) [address] [place] [address] Erythrocyte distribution width (RBC) [Ratio] 14.1 % Normal 11.5-15.0 [facility] Comment on above: Performed By: #### L [id number] #### [facility] ([facility]) [address] [place] [place] [address] ERYTHROCYTE MEAN CORPUSCULAR HEMOGLOBIN CONCENTRATION (G/DL) BY AUTOMATED 33.1 g/dL Normal 32.0-35.0 [facility] Comment on above: Performed By: #### L [id number] #### [facility] ([facility] [address] [place] [address] Hematocrit (Bld) [Volume fraction] 37.5 % Normal 36.0-48.0 [facility] Comment on above: Performed By: #### L [id number] #### [facility] ([facility]) [address] [place] [address] Hemoglobin (Bld) [Mass/Vol] 12.4 g/dL Normal 12.0-15.0 [facility] Comment on above: Performed By: #### L [id number] #### [facility] ([facility]) [address] [place] [address] Immature granulocytes (Bld) [#/Vol] 0.02 10*3/uL Normal 0.00-0.20 [facility] Comment on above: Performed By: #### L [id number] #### [facility] ([facility] [address] [place] [address] Immature granulocytes/100 WBC (Bld) 0.3 % Normal 0.0-1.0 [facility] Comment on above: Performed By: #### L [id number] #### [facility] ([facility] [address] [place] [address] Lymphocytes (Bld) [#/Vol] 1.46 10*3/uL Normal 1.20-4.00 [facility] Comment on above: Performed By: #### L [id number] #### [facility] ([facility] [address] [place] [address] Lymphocytes/100 WBC (Bld) 19.3 % Low 20.0-45.0 [facility] Comment on above: Performed By: #### L [id number] #### [facility] ([facility]) [address] [place] [address] MCH (RBC) [Entitic mass] 28.8 pg Normal 27.0-33.0 [facility] Comment on above: Performed By: #### L [id number] #### [facility] [address] [place] [address] MCV (RBC) [Entitic vol] 87.0 fL Normal 82.0-98.0 [facility] Comment on above: Performed By: #### L [id number] #### [facility] ([facility]) [address] [place] [address] Monocytes (Bld) [#/Vol] 0.69 10*3/uL Normal 0.10-1.00 [facility] Comment on above: Performed By: #### L [id number] #### [facility] ([facility]) [address] [place] [address] Monocytes/100 WBC (Bld) 9.1 % Normal 5.0-12.0 [facility] Comment on above: Performed By: #### L [id number] #### [facility] ([facility]) [address] [place] [address] Neutrophils (Bld) [#/Vol] 4.73 10*3/uL Normal 1.60-7.60 [facility] Comment on above: Performed By: #### L [id number] #### [facility] ([facility]) [address] [place] [address] Neutrophils/100 WBC (Bld) 62.3 % Normal 40.0-72.0 [facility] Comment on above: Performed By: #### L [id number] #### [facility] ([facility]) [address] [place] [address] NRBC (PER 100 WBCS) BY AUTOMATED COUNT 0.0 % Normal 0 [facility] Comment on above: Performed By: #### L [id number] #### [facility] ([facility]) [address] [place] [address] PLATELETS (10*3/UL) IN BLOOD AUTOMATED COUNT 175 10*3/uL Normal 150-400 [facility] Comment on above: Performed By: #### L [id number] #### [facility] ([facility]) [address] [place] [address] RBC (Bld) [#/Vol] 4.31 10*6/uL Normal 3.80-5.00 [facility] Comment on above: Performed By: #### L [id number] #### [facility] ([facility]) [address] [place] [address] WBC (Bld) [#/Vol] 7.58 10*3/uL Normal 4.00-10.60 [facility] Comment on above: Performed By: #### L [id number] #### [facility] ([facility]) [address] [place] [address] CONSULTon 02-05-2023 CONSULT ----- ----- Attestation signed [...] The patient is very high risk. ----- [place] [facility] Consult Note Reason for visit: near-syncope [...] PMH: Past Medical History: Diagnosis Date A-fib ([facility]/HCC) Cancer ([facility]/HCC) Coronary artery disease Hypertension Myocardial infarct ([facility]/HCC) Stroke ([facility]/HCC) PSH: Past Surgical History: Procedure Laterality [...] 1 tablet by mouth in the morning. Wed,,Sun,Sun ROS: Cardio Basic Cardiovascular Symptoms: no lightheadedness, (more content not included)... Normal [facility] HEPATIC FUNCTION PANELon 07- 03-2023 Albumin [Mass/Vol] 3.8 g/dL Normal 3.5-5.7 [facility] Comment on above: Performed By: #### L [id number] #### [facility] ([facility]) [address] [place] [address] ALP [Catalytic activity/Vol] 92 U/L Normal 34-104 [facility] Comment on above: Performed By: #### L [id number] #### [facility] ([facility]) [address] [place] [address] ALT [Catalytic activity/Vol] 11 U/L Normal 7-52 [facility] Comment on above: Performed By: #### L [id number] #### [facility] ([facility]) [address] [place] [address] AST [Catalytic activity/Vol] 23 U/L Normal 13-39 [facility] Comment on above: Performed By: #### L [id number] #### [facility] ([facility]) [address] [place] [address] Bilirubin [Mass/Vol] 0.8 mg/dL Normal 0.3-1.0 [facility] Comment on above: Performed By: #### L [id number] #### [facility] ([facility]) [address] [place] [address] Magnesium [Mass/Vol] 0.1 mg/dL Normal 0-0.2 [facility] Comment on above: Performed By: #### L [id number] #### [facility] ([facility]) [address] [place] [address] Protein [Mass/Vol] 6.5 g/dL Normal 6.0-8.3 [facility] Comment on above: Performed By: #### L [id number] #### [facility] ([facility]) [address] [place] [place] [address] HPon 02-05-2023 HP H&P reviewed. The pa tient was examined and there are no changes to the H&P. Normal [facility] HP H&P reviewed. The pa tient was examined and there are no changes to the H&P. Normal [facility] HP ----- ----- Attestation signed by [...] The patient is very high risk. ----- [place] [facility] Consult Note Reason for visit: near-syncope [...] no lightheadedness, (more content not included)... Normal [facility] MAGNESIUMon 02-05-2023 Magnesium [Mass/Vol] 1.4 mg/dL Low 1.9-2.7 [facility] Comment on above: Performed By: #### L [id number] #### [facility] ([facility]) [address] [place] [address] TROPONIN Ion 02-05-2023 Troponin I.cardiac [Mass/Vol] 0.25 ng/mL Critically high 0.00-0.04 [facility] Comment on above: Result Comment: M-SC EVIOUS CRITICAL RESULT Previous result verified on 02/05/2023 0550 on specimen/case [id number] called with component Troponin I for procedure Troponin I with value 0.21 ng/mL. Performed By: #### L [id number] ####[facility] ([facility])[address] [place] [address] Troponin I.cardiac [Mass/Vol] 0.21 ng/mL Critically high 0.00-0.04 [facility] Comment on above: Result Comment: M-SC EVIOUS CRITICAL RESULT Previous result verified on 02/05/2023 0053 on specimen/case [id number] called with component Troponin I for procedure Troponin I with value 0.27 ng/mL. Performed By: #### L [id number] #### [facility] ([facility]) [address] [place] [address] Troponin I.cardiac [Mass/Vol] 0.27 ng/mL Critically high 0.00-0.04 [facility] Comment on above: Result Comment: M-TR OPONIN INITIAL CRITICAL HIGH; RESPUN AND RETESTED Performed By: #### L [id number] #### [facility] ([facility]) [address] [place] [address] HPon 01-23-2023 [facility] Electrophysiology Consult Note Reason for visit: s/p PPM for AV block, AF s/p cryomaze HPI: Trisha Parish is a 77 y.o. 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 She was recently admitted to [facility] for weakness, suspected to have a stroke [...] stroke who presented with generalized weakness to [facility]. At [facility], EKG demonstarted a 2:1 AV block with prolonged SC interval 266. Chest x-ray demonstrated possible trace [...] heart rate 59. Patient was transferred to [facility] for further evaluation by cardiology. She was [...] tablet anastrozole (more content not included)... Normal [facility] Office Visiton 01-23-2023 Follow-up visit [id number] Trisha Parish 1945 F Date Provider Department Center 01/23/2023 Jason-DOE SOTO CARD [facility] No family history on file Level of Service:19134 [place] OFFICE/OUTPATIENT NEW MODERATE MDM 45-59 MINUTES Reason for Visit and Comments: Follow-up [246338] - 3 month follow up Normal [facility] Office Visiton 01-17-2023 Follow-up visit [id number] Trisha Parish 1945 F Date Provider Department Center 01/17/2023 TOÑO SIMPSON [facility] No family history on file Level of Service:67657 [place] OFFICE/OUTPATIENT ESTABLISHED MOD MDM 30-39 MIN Reason for Visit and Comments: Valve Disorder [3372] Atrial Fibrillation [80] Coronary Artery Disease [187] Normal [facility] PTH INTACTon 10-07-2022 PTH, Intact 45 pg/mL Normal 15-65 [facility] Comment on above: Performed By: #### P T, PTT #### [facility] [address] [place] [address] Dr. Madisyn Bentley Office Visiton 10-06-2022 Follow-up visit [id number] Trisha Parish 1945 F Date Provider Department Center 10/06/2022 MIKAYLA AUSTIN [facility] No family history on file Level of Service:16029 [place] OFFICE/OUTPATIENT ESTABLISHED LOW MDM 20-29 MIN Reason for Visit and Comments: Hypertension [511737] Normal [facility] RENAL FUNCTION PANELon 10-06 Albumin [Mass/Vol] 3.3 g/dL Critically low 3.4-5.0 [facility] Comment on above: Performed By: #### R ENAL #### [facility] [address] [address] [address] Madisyn Bentley Calcium [Mass/Vol] 8.2 mg/dL Critically low 8.5-10.1 [facility] Comment on above: Performed By: #### R ENAL #### [facility] [address] [address] [address] Madisyn Bentley Chloride [Moles/Vol] 110 mmol/L Critically high 98-107 [facility] Comment on above: Performed By: #### R ENAL #### [facility] [address] [address] [address] Madisyn Bentley CO2 [Moles/Vol] 22.2 mmol/L Normal 21.0-32.0 [facility] Comment on above: Performed By: #### R ENAL #### [facility] [address] [address] [address] Madisyn Bentley Creatinine [Mass/Vol] 1.36 mg/dL Critically high 0.55-1.02 [facility] Comment on above: Performed By: #### R ENAL #### [facility] [address] [address] [address] Madisyn Bentley EGFR-AF BELGIAN 46 mL/min/1.73m2 Critically low >=60 [facility] Comment on above: Performed By: #### R ENAL #### [facility] [address] [address] [address] Madisyn Bentley EGFR-NON AF BELGIAN 38 mL/min/1.73m2 Critically low >=60 [facility] Comment on above: Performed By: #### R ENAL #### [facility] [address] [address] [address] Madisyn Bentley Glucose [Mass/Vol] 145 mg/dL Critically high 74-106 [facility] Comment on above: Performed By: #### R ENAL #### [facility] [address] [address] [address] Madisyn Bentley Phosphate [Mass/Vol] 2.7 mg/dL Normal 2.6-4.7 [facility] Comment on above: Performed By: #### R ENAL #### [facility] [address] [address] [address] Madisyn Bentley Potassium [Moles/Vol] 3.9 mmol/L Normal 3.5-5.1 [facility] Comment on above: Performed By: #### R ENAL #### [facility] [address] [address] [address] Madisyn Bentley Sodium [Moles/Vol] 143 mmol/L Normal 136-145 [facility] Comment on above: Performed By: #### R ENAL #### [facility] [address] [address] [address] Madisyn Bentley Urea nitrogen [Mass/Vol] 24.0 mg/dL Critically high 7.0-18.0 [facility] Comment on above: Performed By: #### R ENAL #### [facility] [address] [place] [address] Dr. Madisyn Bentley UA RANDOMon 10-06-2022 Bilirubin Ql (U) Negative Normal NEGATIVE [facility] Comment on above: Performed By: #### R ENAL #### [facility] [address] [place] [address] Dr. Madisyn Bentley Clarity (U) CLEAR Normal CLEAR [facility] Comment on above: Performed By: #### R ENAL #### [facility] [address] [place] [address] Dr. Madisyn Bentley Color (U) LT. YELLOW Normal YELLOW [facility] Comment on above: Performed By: #### R ENAL #### [facility] [address] [place] [address] Dr. Madisyn Bentley Glucose Ql (U) Negative Normal NEGATIVE [facility] Comment on above: Performed By: #### R ENAL #### [facility] [address] [place] [address] Dr. Madisyn Bentley Hemoglobin Ql (U) Negative Normal NEGATIVE [facility] Comment on above: Performed By: #### R ENAL #### [facility] [address] [place] [address] Dr. Madisyn Bentley Ketones Ql (U) Negative Normal NEGATIVE [facility] Comment on above: Performed By: #### R ENAL #### [facility] [address] [place] [address] Dr. Madisyn Bentley LEUKOCYTES SMALL Abnormal NEGATIVE [facility] Comment on above: Performed By: #### R ENAL #### [facility] [address] [place] [address] Dr. Madisyn Bentley Nitrite Ql (U) Negative Normal NEGATIVE [facility] Comment on above: Performed By: #### R ENAL #### [facility] [address] [place] [address] Dr. Madisyn Bentley pH (U) 5.5 [pH] Normal 5-9 [facility] Comment on above: Performed By: #### R ENAL #### [facility] [address] [place] [address] Dr. Madisyn Bentley SPEC GRAVITY 1.020 Normal 1.005-<=1.[address] [place] [address] Comment on above: Performed By: #### R ENAL #### [facility] [address] [place] [address] Dr. Madisyn Bentley UA PROTEIN TRACE Normal NEGATIVE/ TRACE [facility] Comment on above: Performed By: #### R ENAL #### [facility] [address] [place] [address] Dr. Madisyn Bentley Urobilinogen Qn (U) 0.2 {Luis Eduardo'U}/dL Normal 0.2 - 1. 0 [facility] Comment on above: Performed By: #### R ENAL #### [facility] [address] [place] [address] Dr. Madisyn Bentley URINE T PROTEIN CREAT RATIOo n 10-06-2022 Protein (U) [Mass/Vol] 47.8 mg/dL Critically high <=12.0 [facility] Comment on above: Performed By: #### U RTPCR #### [facility] [address] [place] [address] Dr. Madisyn Bentley UR PROT CREAT RAT 0.26 Normal [facility] Comment on above: Performed By: #### U RTPCR #### [facility] [address] [place] [address] Dr. Madisyn Bentley URINE CREAT 186.22 mg/dL Normal 20.00-300.00 [facility] Comment on above: Performed By: #### U RTPCR #### [facility] [address] [place] [address] Dr. Madisyn Bnetley Office Visiton 09-20-2022 Follow-up visit [id number] Trisha Parish 1945 F Date Provider Department Center 09/20/2022 Yovany6-PRECIOUS MONREAL [facility] No family history on file Level of Service:59345 [place] OFFICE/OUTPATIENT ESTABLISHED LOW MDM 20-29 MIN Normal [facility] CBC WITH AUTO DIFFERENTIALon 09-12-2022 Basophils (Bld) [#/Vol] 0.03 10*3/uL Normal 0.00-0.20 [facility] Comment on above: Performed By: #### L [id number] #### [facility] ([facility]) [address] [place] [address] Basophils/100 WBC (Bld) 0.3 % Normal 0.0-1.0 [facility] Comment on above: Performed By: #### L [id number] #### [facility] ([facility]) [address] [place] [address] Eosinophils (Bld) [#/Vol] 0.21 10*3/uL Normal 0.00-0.50 [facility] Comment on above: Performed By: #### L [id number] #### [facility] [address] [place] [address] Eosinophils/100 WBC (Bld) 2.3 % Normal 0.0-6.0 [facility] Comment on above: Performed By: #### L [id number] #### [facility] [address] [place] [address] Erythrocyte distribution width (RBC) [Ratio] 13.3 % Normal 11.5-15.0 [facility] Comment on above: Performed By: #### L [id number] #### [facility] ([facility]) [address] [place] [address] ERYTHROCYTE MEAN CORPUSCULAR HEMOGLOBIN CONCENTRATION (G/DL) BY AUTOMATED 33.4 g/dL Normal 32.0-35.0 [facility] Comment on above: Performed By: #### L [id number] #### [facility] ([facility]) [address] [place] [address] Hematocrit (Bld) [Volume fraction] 29.0 % Low 36.0-48.0 [facility] Comment on above: Performed By: #### L [id number] #### [facility] ([facility]) [address] [place] [address] Hemoglobin (Bld) [Mass/Vol] 9.7 g/dL Low 12.0-15.0 [facility] Comment on above: Performed By: #### L [id number] #### [facility] ([facility]) [address] [place] [address] Immature granulocytes (Bld) [#/Vol] 0.02 10*3/uL Normal 0.00-0.20 [facility] Comment on above: Performed By: #### L [id number] #### [facility] ([facility]) [address] [place] [address] Immature granulocytes/100 WBC (Bld) 0.2 % Normal 0.0-1.0 [facility] Comment on above: Performed By: #### L [id number] #### [facility] ([facility]) [address] [place] [address] Lymphocytes (Bld) [#/Vol] 1.24 10*3/uL Normal 1.20-4.00 [facility] Comment on above: Performed By: #### L [id number] #### [facility] ([facility]) [address] [place] [address] Lymphocytes/100 WBC (Bld) 13.6 % Low 20.0-45.0 [facility] Comment on above: Performed By: #### L [id number] #### [facility] ([facility]) [address] [place] [address] MCH (RBC) [Entitic mass] 30.4 pg Normal 27.0-33.0 [facility] Comment on above: Performed By: #### L [id number] #### [facility] [address] [place] [address] MCV (RBC) [Entitic vol] 90.9 fL Normal 82.0-98.0 [facility] Comment on above: Performed By: #### L [id number] #### [facility] [address] [place] [address] Monocytes (Bld) [#/Vol] 0.68 10*3/uL Normal 0.10-1.00 [facility] Comment on above: Performed By: #### L [id number] #### [facility] ([facility]) [address] [place] [address] Monocytes/100 WBC (Bld) 7.5 % Normal 5.0-12.0 [facility] Comment on above: Performed By: #### L [id number] #### [facility] ([facility]) [address] [place] [address] Neutrophils (Bld) [#/Vol] 6.93 10*3/uL Normal 1.60-7.60 [facility] Comment on above: Performed By: #### L [id number] #### [facility] ([facility]) [address] [place] [address] Neutrophils/100 WBC (Bld) 76.1 % High 40.0-72.0 [facility] Comment on above: Performed By: #### L [id number] #### [facility] ([facility]) [address] [place] [address] NRBC (PER 100 WBCS) BY AUTOMATED COUNT 0.0 % Normal 0.0-0.0 [facility] Comment on above: Performed By: #### L [id number] #### [facility] ([facility]) [address] [place] [address] PLATELETS (10*3/UL) IN BLOOD AUTOMATED COUNT 175 10*3/uL Normal 150-400 [facility] Comment on above: Performed By: #### L [id number] #### [facility] ([facility]) [address] [place] [address] RBC (Bld) [#/Vol] 3.19 10*6/uL Low 3.80-5.00 [facility] Comment on above: Performed By: #### L [id number] #### [facility] ([facility]) [address] [place] [address] WBC (Bld) [#/Vol] 9.11 10*3/uL Normal 4.00-10.60 [facility] Comment on above: Performed By: #### L [id number] #### [facility] [address] [place] [address] COMPREHENSIVE METABOLIC PANE [place] 09-12-2022 Albumin [Mass/Vol] 2.9 g/dL Low 3.5-5.7 [facility] Comment on above: Performed By: #### L [id number] ####[facility] ([facility])[address] [place] [address] ALP [Catalytic activity/Vol] 61 U/L Normal 34-104 [facility] Comment on above: Performed By: #### L [id number] ####[facility] ([facility])[address] [place] [address] ALT [Catalytic activity/Vol] 7 U/L Normal 7-52 [facility] Comment on above: Performed By: #### L [id number] ####[facility] ([facility])[address] [place] [address] Anion gap [Moles/Vol] 5 mmol/L Low 7-20 [facility] Comment on above: Performed By: #### L [id number] ####[facility] ([facility])[address] [place] [address] AST [Catalytic activity/Vol] 12 U/L Low 13-39 [facility] Comment on above: Performed By: #### L [id number] ####[facility] ([facility])[address] [place] [address] Bilirubin [Mass/Vol] 0.5 mg/dL Normal 0.3-1.0 [facility] Comment on above: Performed By: #### L [id number] ####[facility] ([facility])[address] [place] [address] Calcium [Mass/Vol] 8.2 mg/dL Low 8.6-10.3 [facility] Comment on above: Performed By: #### L [id number] ####[facility] [place] [address] Chloride [Moles/Vol] 109 mmol/L High 98-107 [facility] Comment on above: Performed By: #### L [id number] ####[facility] ([facility])[address] [place] [address] CO2 [Moles/Vol] 22 mmol/L Normal 21-31 [facility] Comment on above: Performed By: #### L [id number] ####[facility] ([facility])[address] [facility] [address] Creatinine [Mass/Vol] 1.59 mg/dL High 0.60-1.20 [facility] Comment on above: Performed By: #### L [id number] ####[facility] ([facility])[address] [place] [address] GLOMERULAR FILTRATION RATE ML/MIN/1.73 SQ M.PREDICTED 31.1 mL/min/1.73m*2 Low >60.0 [facility] Comment on above: Result Comment: [facility]???s estimated glomerular filtration rate (eGFR) will no [...] of individuals. Performed By: #### L [id number] ####[facility] ([facility])[address] [place] [address] Glucose [Mass/Vol] 80 mg/dL Normal 70-100 [facility] Comment on above: Performed By: #### L [id number] ####[facility] [place] [address] Potassium [Moles/Vol] 3.9 mmol/L Normal 3.5-5.1 [facility] Comment on above: Performed By: #### L [id number] ####[facility] [place] [address] Protein [Mass/Vol] 5.3 g/dL Low 6.0-8.3 [facility] Comment on above: Performed By: #### L [id number] ####[facility] ([facility])[address] [place] [address] Sodium [Moles/Vol] 136 mmol/L Normal 136-145 [facility] Comment on above: Performed By: #### L [id number] ####[facility] ([facility])[address] [place] [address] Urea nitrogen [Mass/Vol] 37 mg/dL High 7-25 [facility] Comment on above: Performed By: #### L [id number] ####[facility] ([facility])[address] [place] [address] UREA NITROGEN/CREATININE (MASS RATIO) IN SER/PLAS 23.27 Normal [facility] Comment on above: Performed By: #### L [id number] ####[facility] ([facility])[address] [place] [address] DSon 09-12-2022 DS ----- ----- Attestation signed [...] Your Medications These medications were sent to [facility]/pharmacy #[id number] - [address] [place] [place] [address] doxycycline 100 mg capsule Activity Patient currently [...] stroke who presented with generalized weakness to [facility]. She presented with 2-day history of exertional shortness of breath and weakness with intermittent palpitations. She stated that her legs felt heavy. She denied any recent changes of medication and illness. Patient states that she does take Plavix daily. She denies any use of anticoagulation. At [facility], EKG demonstarted a 2:1 AV block with prolonged SC interval 266. Chest x-ray demonstrated possible trace [...] heart rate 59. Patient was transferred to [facility] for further evaluation by cardiology. She was [...] RDW 13. (more content not included)... Normal [facility] MAGNESIUMon 09-12-2022 Magnesium [Mass/Vol] 1.9 mg/dL Normal 1.9-2.7 [facility] Comment on above: Performed By: #### L [id number] ####[facility] ([facility])[address] [facility] [place] [address] NURSNOTEon 09-12-2022 NURSNOTE Taught patient and h er discharge instructions, when to call doctor, follow up appointments, and medication changes. Normal [facility] PHOSPHORUSon 09-12-2022 Magnesium [Mass/Vol] 3.2 mg/dL Normal 2.5-5.0 [facility] Comment on above: Performed By: #### L [id number] ####[facility] ([facility])[address] [place] [address] POCT GLUCOSE METER UNSOLICIT ED RESULTSon 09-12-2022 Glucose [Mass/Vol] 96 mg/dL Normal 70-105 [facility] Comment on above: Result Comment: aide er2 Performed By: #### L [id number] #### [facility] ([facility]) [address] [place] [address] Glucose [Mass/Vol] 138 mg/dL High 70-105 [facility] Comment on above: Result Comment: chito es Performed By: #### L [id number] #### [facility] ([facility]) [address] [place] [address] APTTon 09-11-2022 ACTIVATED PARTIAL THROMBOPLASTIN TIME IN PPP BY COAGULATION ASSAY 48.0 Seconds High 25.0-35.0 [facility] Comment on above: Performed By: #### L [id number] #### [facility] ([facility]) [address] [place] [address] CBC WITH AUTO DIFFERENTIALon 09-11-2022 Basophils (Bld) [#/Vol] 0.02 10*3/uL Normal 0.00-0.20 [facility] Comment on above: Performed By: #### L [id number] ####[facility] ([facility])[address] [place] [address] Basophils/100 WBC (Bld) 0.3 % Normal 0.0-1.0 [facility] Comment on above: Performed By: #### L [id number] ####[facility] ([facility]ER)[address] [place], [place] [address] Eosinophils (Bld) [#/Vol] 0.12 10*3/uL Normal 0.00-0.50 [facility] Comment on above: Performed By: #### L [id number] ####[facility] ([facility])[address] [place] [address] Eosinophils/100 WBC (Bld) 2.0 % Normal 0.0-6.0 [facility] Comment on above: Performed By: #### L [id number] ####[facility] ([facility]ER)[address] [place] [address] Erythrocyte distribution width (RBC) [Ratio] 13.2 % Normal 11.5-15.0 [facility] Comment on above: Performed By: #### L [id number] ####[facility] (BE[facility]ER)[address] [place] [address] ERYTHROCYTE MEAN CORPUSCULAR HEMOGLOBIN CONCENTRATION (G/DL) BY AUTOMATED 31.7 g/dL Low 32.0-35.0 [facility] Comment on above: Performed By: #### L [id number] ####[facility] (BEAKER)[address] [place] [address] Hematocrit (Bld) [Volume fraction] 30.0 % Low 36.0-48.0 [facility] Comment on above: Performed By: #### L [id number] ####[facility] (BE[facility]ER)[address] [place] [address] Hemoglobin (Bld) [Mass/Vol] 9.5 g/dL Low 12.0-15.0 [facility] Comment on above: Performed By: #### L [id number] ####[facility] ([facility])[address] [place] [address] Immature granulocytes (Bld) [#/Vol] 0.02 10*3/uL Normal 0.00-0.20 [facility] Comment on above: Performed By: #### L [id number] ####[facility] (BEAKER)[address] [place] [address] Immature granulocytes/100 WBC (Bld) 0.3 % Normal 0.0-1.0 [facility] Comment on above: Performed By: #### L [id number] ####[facility] [place] [address] Lymphocytes (Bld) [#/Vol] 1.23 10*3/uL Normal 1.20-4.00 [facility] Comment on above: Performed By: #### L [id number] ####[facility] ([facility] [place] [address] Lymphocytes/100 WBC (Bld) 21.0 % Normal 20.0-45.0 [facility] Comment on above: Performed By: #### L [id number] ####[facility] ([facility] [place] [address] MCH (RBC) [Entitic mass] 29.4 pg Normal 27.0-33.0 [facility] Comment on above: Performed By: #### L [id number] ####[facility] (BEAKER)[address] [place] [address] MCV (RBC) [Entitic vol] 92.9 fL Normal 82.0-98.0 [facility] Comment on above: Performed By: #### L [id number] ####[facility] ([facility]ER)[address] [address] Monocytes (Bld) [#/Vol] 0.62 10*3/uL Normal 0.10-1.00 [facility] Comment on above: Performed By: #### L [id number] ####[facility] ([facility]ER)[address] [place] [address] Monocytes/100 WBC (Bld) 10.6 % Normal 5.0-12.0 [facility] Comment on above: Performed By: #### L [id number] ####[facility] ([facility] [place] [address] Neutrophils (Bld) [#/Vol] 3.85 10*3/uL Normal 1.60-7.60 [facility] Comment on above: Performed By: #### L [id number] ####[facility] ([facility])[address] [place] [address] Neutrophils/100 WBC (Bld) 65.8 % Normal 40.0-72.0 [facility] Comment on above: Performed By: #### L [id number] ####[facility] ([facility])[address] [place] [address] NRBC (PER 100 WBCS) BY AUTOMATED COUNT 0.0 % Normal 0.0-0.0 [facility] Comment on above: Performed By: #### L [id number] ####[facility] ([facility])[address] [place] [address] PLATELETS (10*3/UL) IN BLOOD AUTOMATED COUNT 165 10*3/uL Normal 150-400 [facility] Comment on above: Performed By: #### L [id number] ####[facility] ([facility] [place] [address] RBC (Bld) [#/Vol] 3.23 10*6/uL Low 3.80-5.00 [facility] Comment on above: Performed By: #### L [id number] ####[facility] (BEAKER)[address] [place] [address] WBC (Bld) [#/Vol] 5.86 10*3/uL Normal 4.00-10.60 [facility] Comment on above: Performed By: #### L [id number] ####[facility] (BEAKER)[address] [place] [address] COMPREHENSIVE METABOLIC PANE Otto 09-11-2022 Albumin [Mass/Vol] 3.1 g/dL Low 3.5-5.7 [facility] Comment on above: Performed By: #### L [id number] ####[facility] ([facility])[address] [place] [address] ALP [Catalytic activity/Vol] 65 U/L Normal 34-104 [facility] Comment on above: Performed By: #### L [id number] ####[facility] ([facility])[address] [place] [address] ALT [Catalytic activity/Vol] 7 U/L Normal 7-52 [facility] Comment on above: Performed By: #### L [id number] ####[facility] ([facility])[address] [place] [address] Anion gap [Moles/Vol] 7 mmol/L Normal 7-20 [facility] Comment on above: Performed By: #### L [id number] ####[facility] ([facility])[address] [place] [address] AST [Catalytic activity/Vol] 10 U/L Low 13-39 [facility] Comment on above: Performed By: #### L [id number] ####[facility] ([facility])[address] [place] [address] Bilirubin [Mass/Vol] 0.7 mg/dL Normal 0.3-1.0 [facility] Comment on above: Performed By: #### L [id number] ####[facility] ([facility])[address] [place] [address] Calcium [Mass/Vol] 8.2 mg/dL Low 8.6-10.3 [facility] Comment on above: Performed By: #### L [id number] ####[facility] ([facility])[address] [place] [address] Chloride [Moles/Vol] 112 mmol/L High 98-107 [facility] Comment on above: Performed By: #### L [id number] ####[facility] ([facility])[address] [place] [address] CO2 [Moles/Vol] 19 mmol/L Low 21-31 [facility] Comment on above: Performed By: #### L [id number] ####[facility] ([facility])[address] [place] [address] Creatinine [Mass/Vol] 1.69 mg/dL High 0.60-1.20 [facility] Comment on above: Performed By: #### L [id number] ####[facility] ([facility])[address] [place] [address] GLOMERULAR FILTRATION RATE ML/MIN/1.73 SQ M.PREDICTED 28.9 mL/min/1.73m*2 Low >60.0 [facility] Comment on above: Result Comment: [facility]???s estimated glomerular filtration rate (eGFR) will no [...] of individuals. Performed By: #### L [id number] ####[facility] ([facility])[address] [place] [address] Glucose [Mass/Vol] 106 mg/dL High 70-100 [facility] Comment on above: Performed By: #### L [id number] ####[facility] ([facility])[address] [place] [address] Potassium [Moles/Vol] 3.9 mmol/L Normal 3.5-5.1 [facility] Comment on above: Performed By: #### L [id number] ####[facility] ([facility])[address] [place] [address] Protein [Mass/Vol] 5.5 g/dL Low 6.0-8.3 [facility] Comment on above: Performed By: #### L [id number] ####[facility] ([facility])[address] [place] [address] Sodium [Moles/Vol] 138 mmol/L Normal 136-145 [facility] Comment on above: Performed By: #### L [id number] ####[facility] ([facility])[address] [place] [address] Urea nitrogen [Mass/Vol] 43 mg/dL High 7-25 [facility] Comment on above: Performed By: #### L [id number] ####[facility] ([facility])[address] [place] [address] UREA NITROGEN/CREATININE (MASS RATIO) IN SER/PLAS 25.44 Normal [facility] Comment on above: Performed By: #### L [id number] ####[facility] ([facility])[address] [place] [address] HPon 09-11-2022 HP H&P reviewed. The jordon mendez was examined and there are no changes to the H&P. [facility] MAGNESIUMon 09-11-2022 Magnesium [Mass/Vol] 2.3 mg/dL Normal 1.9-2.7 [facility] Comment on above: Performed By: #### L [id number] #### [facility] ([facility]) [address] [place] [address] PHOSPHORUSon 09-11-2022 Magnesium [Mass/Vol] 3.3 mg/dL Normal 2.5-5.0 [facility] Comment on above: Performed By: #### L [id number] #### [facility] ([facility]) [address] [place] [address] POCT GLUCOSE METER UNSOLICIT ED RESULTSon 09-11-2022 Glucose [Mass/Vol] 100 mg/dL Normal 70-105 [facility] Comment on above: Result Comment: [email or web address] [email or web address] Performed By: #### L [id number] #### [facility] ([facility]) [address] [place] [address] Glucose [Mass/Vol] 111 mg/dL High 70-105 [facility] Comment on above: Result Comment: abi mou2 Performed By: #### L [id number] #### [facility] ([employer]) [address] [place] [address] Glucose [Mass/Vol] 107 mg/dL High 70-105 [facility] Comment on above: Result Comment: [email or web address] [email or web address] Performed By: #### L [id number] #### [facility] ([employer]) [address] [place] [address] PROTIME-INRon 09-11-2022 INR IN PPP BY COAGULATION ASSAY 1.51 High 0.90-1.10 [facility] Comment on above: Result Comment: ACCC P [...] CHEST 1995;[id number]. Performed By: #### L [id number] ####[facility] [employer])[address] [place] [address] PROTHROMBIN TIME (PT) IN PPP BY COAGULATION ASSAY 18.1 Seconds High 12.3-14.8 [facility] Comment on above: Performed By: #### L [id number] ####[facility] [employer])[address] [place] [address] B-TYPE NATRIURETIC PEPTIDEon 09-10-2022 Natriuretic peptide B (Bld) [Mass/Vol] 1226 pg/mL High 0-100 [facility] Comment on above: Performed By: #### L [id number] #### [facility] ([facility]) [address] [place] [address] BNPon 09-10-2022 Natriuretic peptide B (Bld) [Mass/Vol] 43572.0 pg/mL Critically high <=1,800.0 [facility] Comment on above: Performed By: #### B HORIZONTAL BORING MILL OPERATOR, HSTROPN #### [facility] [address] [place] [address] Dr. Madisyn Bentley CBC AUTO DIFFon 09-10-2022 BASO # 0.0 103/ul Normal 0.0-0.1 [facility] Comment on above: Performed By: #### R ENAL #### [facility] [address] [place] [address] Dr. Madisyn Bentley Basophils/100 WBC (Bld) 0.3 % Normal 0.2-2.0 [facility] Comment on above: Performed By: #### R ENAL #### [facility] [address] [place] [address] Dr. Madisyn Bentley EO # 0.3 103/ul Normal 0.0-0.7 [facility] Comment on above: Performed By: #### R ENAL #### [facility] [address] [place] [address] Dr. Madisyn Bentley Eosinophils/100 WBC (Bld) 2.4 % Normal 0.9-7.0 [facility] Comment on above: Performed By: #### R ENAL #### [facility] [address] [place] [address] Dr. Madisyn Bentley Erythrocyte distribution width (RBC) [Ratio] 13.3 % Normal 11.0-15.0 [facility] Comment on above: Performed By: #### R ENAL #### [facility] [address] [place] [address] Dr. Madisyn Bentley Hematocrit (Bld) [Volume fraction] 36.0 % Normal 36.0-48.0 [facility] Comment on above: Performed By: #### R ENAL #### [facility] [address] [place] [address] Dr. Madisyn Bentley Hemoglobin (Bld) [Mass/Vol] 11.2 g/dL Critically low 12.0-16.0 [facility] Comment on above: Performed By: #### R ENAL #### [facility] [address] [place] [address] Dr. Madisyn Bentley IG # 0.02 10e3/ul Normal 0.00-0.03 [facility] Comment on above: Performed By: #### R ENAL #### [facility] [address] [place] [address] Dr. Madisyn Bentley IG % 0.2 % Normal 0.0-0.5 [facility] Comment on above: Performed By: #### R ENAL #### [facility] [address] [place] [address] Dr. Madisyn Bentley LYMPH # 1.4 103/ul Normal 1.2-3.8 [facility] Comment on above: Performed By: #### R ENAL #### [facility] [address] [place] [address] Dr. Madisyn Bentley Lymphocytes/100 WBC (Bld) 13.3 % Critically low 20.5-60.0 [facility] Comment on above: Performed By: #### R ENAL #### [facility] [address] [place] [address] Dr. Madisyn Bentley MANUAL DIFF REQ NO Normal [facility] Comment on above: Performed By: #### R ENAL #### [facility] [address] [place] [address] Dr. Madisyn Bentley MCH (RBC) [Entitic mass] 28.9 pg Normal 26.7-34.0 [facility] Comment on above: Performed By: #### R ENAL #### [facility] [address] [place] [address] Dr. Madisyn Bentley MCHC (RBC) [Mass/Vol] 31.1 g/dL Normal 29.9-35.2 [facility] Comment on above: Performed By: #### R ENAL #### [facility] [address] [place] [address] Dr. Madisyn Bentley MCV (RBC) [Entitic vol] 92.8 fL Normal 81.0-99.0 [facility] Comment on above: Performed By: #### R ENAL #### [facility] [address] [place] [address] Dr. Madisyn Bentley MONO # 0.9 103/ul Critically high 0.3-0.[address] [facility] Comment on above: Performed By: #### R ENAL #### [facility] [address] [place] [address] Dr. Madisyn Bentley Monocytes/100 WBC (Bld) 8.4 % Normal 1.7-12.0 [facility] Comment on above: Performed By: #### R ENAL #### [facility] [address] [place] [address] Dr. Madisyn Bentley NEUT # 8.1 103/ul Critically high 1.4-6.[address] [facility] Comment on above: Performed By: #### R ENAL #### [facility] [address] [place] [address] Dr. Madisyn Bentley Neutrophils/100 WBC (Bld) 75.4 % Critically high 43.0-75.0 [facility] Comment on above: Performed By: #### R ENAL #### [facility] [address] [place] [address] Dr. Madisyn Bentley Platelet mean volume (Bld) [Entitic vol] 12.8 fL Normal 9.5-13.5 [facility] Comment on above: Performed By: #### R ENAL #### [facility] [address] [place] [address] Dr. Madisyn Bentley PLT 200 103/ul Normal 150-450 [facility] Comment on above: Performed By: #### R ENAL #### [facility] [address] [place] [address] Dr. Madisyn Bentley RBC 3.88 106/ul Critically low 4.20-5.40 [facility] Comment on above: Performed By: #### R ENAL #### [facility] [address] [place], [place] [address] Dr. Madisyn Bentley WBC 10.8 103/ul Normal 4.0-11.0 [facility] Comment on above: Performed By: #### R ENAL #### [facility] [address] [place] [address] [address] Madisyn Bentley CBC WITH AUTO DIFFERENTIALon 09-10-2022 Basophils (Bld) [#/Vol] 0.03 10*3/uL Normal 0.00-0.20 [facility] Comment on above: Performed By: #### L [id number] ####[facility] (BEAKER)[address] [facility] [place] [address] Basophils/100 WBC (Bld) 0.3 % Normal 0.0-1.0 [facility] Comment on above: Performed By: #### L [id number] ####[facility] (BEAKER)[address] [facility] [place] [address] Eosinophils (Bld) [#/Vol] 0.08 10*3/uL Normal 0.00-0.50 [facility] Comment on above: Performed By: #### L [id number] ####[facility] (BEAKER)[address] [place] [address] Eosinophils/100 WBC (Bld) 0.8 % Normal 0.0-6.0 [facility] Comment on above: Performed By: #### L [id number] ####[facility] (BEAKER)[address] [place] [address] Erythrocyte distribution width (RBC) [Ratio] 13.2 % Normal 11.5-15.0 [facility] Comment on above: Performed By: #### L [id number] ####[facility] (BEAKER)[address] [place] [address] ERYTHROCYTE MEAN CORPUSCULAR HEMOGLOBIN CONCENTRATION (G/DL) BY AUTOMATED 31.6 g/dL Low 32.0-35.0 [facility] Comment on above: Performed By: #### L [id number] ####[facility] (BEAKER)[address] [place] [address] Hematocrit (Bld) [Volume fraction] 33.5 % Low 36.0-48.0 [facility] Comment on above: Performed By: #### L [id number] ####[facility] [place] [address] Hemoglobin (Bld) [Mass/Vol] 10.6 g/dL Low 12.0-15.0 [facility] Comment on above: Performed By: #### L [id number] ####[facility] ([facility])[address] [place] [address] Immature granulocytes (Bld) [#/Vol] 0.03 10*3/uL Normal 0.00-0.20 [facility] Comment on above: Performed By: #### L [id number] ####[facility] ([facility])[address] [place] [address] Immature granulocytes/100 WBC (Bld) 0.3 % Normal 0.0-1.0 [facility] Comment on above: Performed By: #### L [id number] ####[facility] ([facility] [place] [address] Lymphocytes (Bld) [#/Vol] 1.12 10*3/uL Low 1.20-4.00 [facility] Comment on above: Performed By: #### L [id number] ####[facility] (BEAKER)[address] [place] [address] Lymphocytes/100 WBC (Bld) 11.4 % Low 20.0-45.0 [facility] Comment on above: Performed By: #### L [id number] ####[facility] (BEAKER)[address] [place] [address] MCH (RBC) [Entitic mass] 28.4 pg Normal 27.0-33.0 [facility] Comment on above: Performed By: #### L [id number] ####[facility] (BEAKER)[address] [place] [address] MCV (RBC) [Entitic vol] 89.8 fL Normal 82.0-98.0 [facility] Comment on above: Performed By: #### L [id number] ####[facility] (BEAKER)[address] [place] [address] Monocytes (Bld) [#/Vol] 0.90 10*3/uL Normal 0.10-1.00 [facility] Comment on above: Performed By: #### L [id number] ####[facility] (BEAKER)[address] [place] [address] Monocytes/100 WBC (Bld) 9.1 % Normal 5.0-12.0 [facility] Comment on above: Performed By: #### L [id number] ####[facility] (BEAKER)[address] [place] [address] Neutrophils (Bld) [#/Vol] 7.69 10*3/uL High 1.60-7.60 [facility] Comment on above: Performed By: #### L [id number] ####[facility] (AKER)[address] [place] [address] Neutrophils/100 WBC (Bld) 78.1 % High 40.0-72.0 [facility] Comment on above: Performed By: #### L [id number] ####[facility] (BEAKER)[address] [place] [address] NRBC (PER 100 WBCS) BY AUTOMATED COUNT 0.0 % Normal 0.0-0.0 [facility] Comment on above: Performed By: #### L [id number] ####[facility] (BEAKER)[address] [place] [address] PLATELETS (10*3/UL) IN BLOOD AUTOMATED COUNT 204 10*3/uL Normal 150-400 [facility] Comment on above: Performed By: #### L [id number] ####[facility] (BEAKER)[address] [place] [address] RBC (Bld) [#/Vol] 3.73 10*6/uL Low 3.80-5.00 [facility] Comment on above: Performed By: #### L [id number] ####[facility] ([facility])[address] [place] [address] WBC (Bld) [#/Vol] 9.85 10*3/uL Normal 4.00-10.60 [facility] Comment on above: Performed By: #### L [id number] ####[facility] ([facility])[address] [place] [address] COMPREHENSIVE METABOLIC PANE [place] 09-10-2022 Albumin [Mass/Vol] 3.3 g/dL Low 3.5-5.7 [facility] Comment on above: Performed By: #### L [id number] #### [facility] ([facility] [place]) [address] [place] [address] ALP [Catalytic activity/Vol] 75 U/L Normal 34-104 [facility] Comment on above: Performed By: #### L [id number] #### [facility] ([facility]) [address] [place] [address] ALT [Catalytic activity/Vol] 8 U/L Normal 7-52 [facility] Comment on above: Performed By: #### L [id number] #### [facility] ([facility]) [address] [place] [address] Anion gap [Moles/Vol] 9 mmol/L Normal 7-20 [facility] Comment on above: Performed By: #### L [id number] #### [facility] ([facility]) [address] [place] [address] AST [Catalytic activity/Vol] 11 U/L Low 13-39 [facility] Comment on above: Performed By: #### L [id number] #### [facility] ([facility]) [address] [place] [address] Bilirubin [Mass/Vol] 1.0 mg/dL Normal 0.3-1.0 [facility] Comment on above: Performed By: #### L [id number] #### [facility] ([facility]) [address] [place] [address] Calcium [Mass/Vol] 8.3 mg/dL Low 8.6-10.3 [facility] Comment on above: Performed By: #### L [id number] #### [facility] ([facility]) [address] [place] [address] Chloride [Moles/Vol] 106 mmol/L Normal 98-107 [facility] Comment on above: Performed By: #### L [id number] #### [facility] ([facility]) [address] [place] [address] CO2 [Moles/Vol] 18 mmol/L Low 21-31 [facility] Comment on above: Performed By: #### L [id number] #### [facility] ([facility]) [address] [place] [address] Creatinine [Mass/Vol] 1.83 mg/dL High 0.60-1.20 [facility] Comment on above: Performed By: #### L [id number] #### [facility] ([facility]) [address] [place] [address] GLOMERULAR FILTRATION RATE ML/MIN/1.73 SQ M.PREDICTED 26.2 mL/min/1.73m*2 Low >60.0 [facility] Comment on above: Result Comment: [facility]???s estimated glomerular filtration rate (eGFR) will no [...] individuals. Performed By: #### L [id number] #### [facility] ([facility]) [address] [place] [address] Glucose [Mass/Vol] 144 mg/dL High 70-100 [facility] Comment on above: Performed By: #### L [id number] #### [facility] ([facility]) [address] [place] [address] Potassium [Moles/Vol] 4.0 mmol/L Normal 3.5-5.1 [facility] Comment on above: Performed By: #### L [id number] #### [facility] ([facility]) [address] [place] [address] Protein [Mass/Vol] 5.9 g/dL Low 6.0-8.3 [facility] Comment on above: Performed By: #### L [id number] #### [facility] ([facility]) [address] [place] [address] Sodium [Moles/Vol] 133 mmol/L Low 136-145 [facility] Comment on above: Performed By: #### L [id number] #### [facility] ([facility]) [address] [place] [address] Urea nitrogen [Mass/Vol] 50 mg/dL High 7-25 [facility] Comment on above: Performed By: #### L [id number] #### [facility] ([facility]) [address] [place] [address] UREA NITROGEN/CREATININE (MASS RATIO) IN SER/PLAS 27.32 Normal [facility] Comment on above: Performed By: #### L [id number] #### [facility] ([facility]) [address] [place] [address] CONSULTon 09-10-2022 CONSULT ----- ----- Attestation signed [...] II/Complete HB. She was transferred over from [facility] due to heart rate in the 30s. [...] has a past medical history of A-fib (CMS/HCC), Cancer (CMS/HCC), Coronary artery disease, Hypertension, Myocardial infarct (CMS/HCC), and Stroke (CMS/HCC). Surgical History She has a past surgical [...] preserved EF. (more content not included)... Normal [facility] Covid-19 PCR (CVDTB)on SARS-CoV-2 (COVID-19) RNA SUSAN+probe Ql (Unsp spec) Not detected Normal NOT DETECTED [facility] Comment on above: Result Comment: When diagnostic [...] for this test is supported by the [employer] [place] of Health and Human Service's declaration that [...] Performed By: #### P T, PTT #### [facility] [address] [place], [place] [address] Dr. Madisyn Bentley FERRITINon 09-10-2022 FERRITIN (NG/ML) IN SER/PLAS 97.0 ng/mL Normal 11.0-307.0 [facility] Comment on above: Performed By: #### L [id number] #### [facility] ([facility]) [address] [place] [address] FOLATEon 09-10-2022 FOLATE (NG/ML) IN SER/PLAS 9.99 ng/mL Normal 6.6-1000 [facility] Comment on above: Performed By: #### L [id number] ####[facility] ([facility])[address] [place] [address] HEMOGLOBIN A1Con 09-10-2022 Glucose [Mass/Vol] 136.98 mg/dL Normal [facility] Comment on above: Performed By: #### L [id number] ####[facility] ([facility])[address] [place] [address] HbA1c (Bld) [Mass fraction] 6.4 % High 4.0-6.0 [facility] Comment on above: Performed By: #### L [id number] ####[facility] ([facility])[address] [place] [address] HPon 09-10-2022 HP ----- ----- Attestation signed [...] II/Complete HB. She was transferred over from [facility] due to heart rate in the 30s. [...] has a past medical history of A-fib ([facility]), Cancer ([facility]), Coronary artery disease, Hypertension, Myocardial infarct ([facility]/HCC), and Stroke ([facility]/HCC). Surgical History She has a past surgical [...] by mouth 4 (four) times a week. Sun,,Sun,Fri NIFEdipine CC (Adalat CC) 30 mg 24 [...] preserved EF. (more content not included)... Normal [facility] ----- ----- Attestation signed by Suzi Daly [...] Parish Age - 77 [facility] 1945 [id number] Date of Admission - 09/10/2022 11:01 AM Chief Complaint Generalized weakness History of Present Illness Trisha Parish is a 77 y.o. female with a past medical history significant for atrial fibrillation status post maze and left atrial appendage clip, coronary artery disease status post CABG, hypertension, stroke who presented with generalized weakness to [facility]. She presented with 2-day history of exertional shortness of breath and weakness with intermittent palpitations. She stated that her legs felt heavy. She denied any recent changes of medication and illness. Patient states that she does take Plavix daily. She denies any use of anticoagulation. At [facility], EKG demonstarted a 2:1 AV block with prolonged SC interval 266. Chest x-ray demonstrated possible trace [...] heart rate 59. Patient was transferred to [facility] for further evaluation by cardiology. On my evaluation, patient denied chest pain shortness of breath, lightheadedness, dizziness. She did state that she continued to feel weak. Patient arrived while on dopamine infusion. However, heart rate was noted to be in the 30s to 40s. PMH: Patient has a past medical history of A-fib (CMS/HCC), Cancer (CMS/HCC), Coronary artery disease, Hypertension, Myocardial infarct (CMS/HCC), and Stroke (CMS/HCC). PSH: Patient has a past surgical history [...] which specify (more content not included)... Normal [facility] IRON AND TIBCon 09-10-2022 IRON (UG/DL) IN SER/PLAS 27 ug/dL Low 50-212 [facility] Comment on above: Performed By: #### L [id number] #### [facility] ([facility]) [address] [place] [address] IRON BINDING CAPACITY (UG/DL) IN SER/PLAS 203 ug/dL Low 250-450 [facility] Comment on above: Performed By: #### L [id number] #### [facility] ([facility]) [address] [place] [address] IRON BINDING CAPACITY.UNSATURATE D (UG/DL) IN SER/PLAS 176.0 ug/dL Normal 155.0-355.0 [facility] Comment on above: Performed By: #### L [id number] #### [facility] ([facility]) [address] [place] [address] IRON SATURATION (%) IN SER/PLAS 13 % Low 20-50 [facility] Comment on above: Performed By: #### L [id number] #### [facility] ([facility]) [address] [place] [address] MAGNESIUMon 09-10-2022 Magnesium [Mass/Vol] 1.6 mg/dL Low 1.9-2.7 [facility] Comment on above: Performed By: #### L [id number] ####[facility] ([facility])[address] [place] [address] PHOSPHORUSon 09-10-2022 Magnesium [Mass/Vol] 3.1 mg/dL Normal 2.5-5.0 [facility] Comment on above: Performed By: #### L [id number] ####[facility] ([facility])[address] [place] [address] POCT GLUCOSE METER UNSOLICIT ED RESULTSon 09-10-2022 Glucose [Mass/Vol] 152 mg/dL High 70-105 [facility] Comment on above: Result Comment: chito mc Performed By: #### L [id number] #### [facility] ([facility]) [address] [place] [address] Glucose [Mass/Vol] 151 mg/dL High 70-105 [facility] Comment on above: Result Comment: kyleigh haider Performed By: #### L [id number] #### [facility] ([facility]) [address] [place] [address] PROF 14(COMP METB)on 023 Albumin [Mass/Vol] 3.0 g/dL Critically low 3.4-5.0 [facility] Comment on above: Performed By: #### R ENAL #### [facility] [address] [place] [address] [address] Madisyn Bentley Albumin/Globulin [Mass ratio] 0.8 {ratio} Normal [facility] Comment on above: Performed By: #### R ENAL #### [facility] [address] [address] [address] Madisyn Bentley ALP [Catalytic activity/Vol] 113 U/L Normal 46-116 [facility] Comment on above: Performed By: #### R ENAL #### [facility] [address] [place] [address] Dr. Madisyn Bentley ALT [Catalytic activity/Vol] 15 U/L Normal 14-59 [facility] Comment on above: Performed By: #### R ENAL #### [facility] [address] [place] [address] Dr. Madisyn Bentley Anion gap [Moles/Vol] 16.4 mmol/L Normal [facility] Comment on above: Performed By: #### R ENAL #### [facility] [address] [place] [address] Dr. Madisyn Bentley AST [Catalytic activity/Vol] 15 U/L Normal 15-37 [facility] Comment on above: Performed By: #### R ENAL #### [facility] [address] [place] [address] Dr. Madisyn Bentley Bilirubin [Mass/Vol] 0.6 mg/dL Normal 0.2-1.0 [facility] Comment on above: Performed By: #### R ENAL #### [facility] [address] [place] [address] Dr. Madisyn Bentley Calcium [Mass/Vol] 8.6 mg/dL Normal 8.5-10.1 [facility] Comment on above: Performed By: #### R ENAL #### [facility] [address] [place] [address] Dr. Madisyn Bentley Chloride [Moles/Vol] 102 mmol/L Normal 98-107 [facility] Comment on above: Performed By: #### R ENAL #### [facility] [address] [address] [address] Madisyn Bentley CO2 [Moles/Vol] 18.9 mmol/L Critically low 21.0-32.0 [facility] Comment on above: Performed By: #### R ENAL #### [facility] [address] [address] [address] Madisyn Bentley Creatinine [Mass/Vol] 1.95 mg/dL Critically high 0.55-1.02 [facility] Comment on above: Performed By: #### R ENAL #### [facility] [address] [address] [address] Madisyn Bentley EGFR-AF BELGIAN 30 mL/min/1.73m2 Critically low >=60 [facility] Comment on above: Performed By: #### R ENAL #### [facility] [address] [address] [address] Madisyn Bentley EGFR-NON AF BELGIAN 25 mL/min/1.73m2 Critically low >=60 [facility] Comment on above: Performed By: #### R ENAL #### [facility] [address] [address] [address] Madisyn Bentley Globulin (S) [Mass/Vol] 3.7 g/dL Normal [facility] Comment on above: Performed By: #### R ENAL #### [facility] [address] [address] [address] Madisyn Bentley Glucose [Mass/Vol] 190 mg/dL Critically high 74-106 [facility] Comment on above: Performed By: #### R ENAL #### [facility] [address] [address] [address] Madisyn Bentley Potassium [Moles/Vol] 4.3 mmol/L Normal 3.5-5.1 [facility] Comment on above: Performed By: #### R ENAL #### [facility] [address] [address] [address] Madisyn Bentley Protein [Mass/Vol] 6.7 g/dL Normal 6.4-8.2 [facility] Comment on above: Performed By: #### R ENAL #### [facility] [address] [address] [address] Madisyn Bentley Sodium [Moles/Vol] 133 mmol/L Critically low 136-145 Th e [facility] Comment on above: Performed By: #### R ENAL #### [facility] [address] [address] [address] Madisyn Bentley Urea nitrogen [Mass/Vol] 51.0 mg/dL Critically high 7.0-18.0 [facility] Comment on above: Performed By: #### R ENAL #### [facility] [address] [place] [address] Dr. Madisyn Bentley Urea nitrogen/Creatinine [Mass ratio] 26.2 mg/mg Normal [facility] Comment on above: Performed By: #### R ENAL #### [facility] [address] [place] [address] Dr. Madisyn Bentley PROTIMEon 09-10-2022 INR Coag (PPP) [Relative time] 1.20 {INR} Normal [facility] Comment on above: Performed By: #### P T, PTT #### [facility] [address] [place] [address] Dr. Madisyn Bentley INR GUIDELINES SEE BELOW Normal [facility] Comment on above: Result Comment: ROMY RED INR: 2.0 - 3.0 CONDITIONS NOT LISTED BELOW 2.5 - 3.5 FOR PROSTHETIC HEART VALVE REPLACEMENT 2.5 - 3.5 RECURRENT THROMBOSIS Performed By: #### P T, PTT #### [facility] [address] [place] [address] Dr. Madisyn Bentley PT Coag (PPP) [Time] 12.6 s Critically high 9.0-11.6 [facility] Comment on above: Performed By: #### P T, PTT #### [facility] [address] [place] [address] Dr. Madisyn Bentley PROTIME-INRon 09-10-2022 INR IN PPP BY COAGULATION ASSAY 1.36 High 0.90-1.10 [facility] Comment on above: Result Comment: ACCC P [...] CHEST 1995;[id number]. Performed By: #### L [id number] ####[facility] ([facility])[address] [place] [address] PROTHROMBIN TIME (PT) IN PPP BY COAGULATION ASSAY 16.6 Seconds High 12.3-14.8 [facility] Comment on above: Performed By: #### L [id number] ####[facility] ([facility])[address] [place] [address] PTTon 09-10-2022 aPTT Coag (Bld) [Time] 36.0 s Normal 22.3-36.2 [facility] Comment on above: Performed By: #### P T, PTT #### [facility] [address] [address] [address] Madisyn Bentley T4, FREEon 09-10-2022 THYROXINE (T4) FREE (NG/DL) IN SER/PLAS 1.36 ng/dL Normal 0.71-1.85 [facility] Comment on above: Performed By: #### L [id number] ####[facility] ([facility])[address] [place] [address] TROPONIN Ion 09-10-2022 Troponin I.cardiac [Mass/Vol] 0.03 ng/mL Normal 0.00-0.04 [facility] Comment on above: Performed By: #### L [id number] #### [facility] ([facility]) [address] [place] [address] TROPONIN, HIGH SENSITIVITYon 09-10-2022 HSTROP 79.4 pg/mL Critically high 4.0-51.[address] [facility] Comment on above: Result Comment: CUT- OFF POINTS HAVE BEEN ESTABLISHED BASED ON THE FOURTH UNIVERSAL DEFINITIONS OF MYOCARDIAL INFARCTION. THE UPPER REFERENCE LIMIT (URL) OF TROPONIN, DEFINED THE 99TH PERCENTILE OF cTnI DISTRIBUTION IN A REFERENCE POPULATION, HAS BEEN CONFIRMED THE DECISION THRESHOLD FOR SC DIAGNOSIS. Performed By: #### B HORIZONTAL BORING MILL OPERATOR, HSTROPN #### [facility] [address] [place] [address] Dr. Madisyn Bentley TSH3 REFLEX TO FT4on 023 THYROTROPIN (MIU/L) IN SER/PLAS BY DETECTION LIMIT <= 0.05 MIU/L 6.40 mIU/L High 0.34-5.60 [facility] Comment on above: Performed By: #### L [id number] #### [facility] ([facility]) [address] [place] [address] VITAMIN B12on 09-10-2022 Cobalamin (Vitamin B12) [Mass/Vol] 177 pg/mL Low 180-914 [facility] Comment on above: Result Comment: REFE RENCE RANGES: 180-914 pg/mL Normal 145-179 pg/mL Indeterminate <145 pg/mL Deficient Performed By: #### L [id number] #### [facility] ([facility]) [address] [place] [address] XR CHEST 1 Von 09-10-2022 XR CHEST [...] Kelli FLANNERY Date: 2022-09-10 04:58 Normal [facility] GLYCOHEMOGLOBIN A1Con 2021 ADA RECOMMENDATION SEE BELOW Normal [facility] Comment on above: Result Comment: ADA RECOMMENDED LIMIT 4.0 - 6.0 ADA THERAPEUTIC TARGET < 7.0 ACTION SUGGESTED > 7.0 Performed By: #### P T, PTT #### [facility] [address], [place] [address] Dr. Madisyn Bentley Glucose [Mass/Vol] 186 mg/dL Normal [facility] Comment on above: Performed By: #### P T, PTT #### [facility] [address] [address] [address] Madisyn Bentley HbA1c (Bld) [Mass fraction] 8.1 % Critically high 4.5-6.2 [facility] Comment on above: Performed By: #### P T, PTT #### [facility] [address], [place] [address] Dr. Madisyn Bentley US THYROIDon 05-24-2022 US [...] by: DIAMOND HILARIO Date: 2022-05-24 12:24 Normal [facility] MAMM SCREEN RT 3D CADon 1 MG MAMM SCREEN RT 3D CAD Patient: TRISHA PARISH Exam Date: 05/23/2022 : 1945 Gender:F Ordering : DR SANYA TINEO M.D. Admission #: [id number] Family : Order #: [id number] CLICK HERE TO VIEW EXAM RADIOLOGY REPORT [...] and chemotherapy Family Cancers None LOCATION: [facility] BREAST COMPOSITION: Scattered areas fibroglandular density. FINDINGS: [...] by: DIAMOND HILARIO Date: 2022-05-23 19:25 Normal [facility] CBC AUTO DIFFon 05-16-2022 BASO # 0.0 103/ul Normal 0.0-0.1 [facility] Comment on above: Performed By: #### C BC #### [facility] [address] [place] [address] Dr. Madisyn Bentley Basophils/100 WBC (Bld) 0.4 % Normal 0.2-2.0 [facility] Comment on above: Performed By: #### C BC #### [facility] [address] [address] [address] Madisyn Bentley EO # 0.3 103/ul Normal 0.0-0.7 [facility] Comment on above: Performed By: #### C BC #### [facility] [address] [place] [address] Dr. Madisyn Bentley Eosinophils/100 WBC (Bld) 4.5 % Normal 0.9-7.0 [facility] Comment on above: Performed By: #### C BC #### [facility] [address] [place] [address] Dr. Madisyn Bentley Erythrocyte distribution width (RBC) [Ratio] 13.1 % Normal 11.0-15.0 [facility] Comment on above: Performed By: #### C BC #### [facility] [address] [place] [address] Dr. Madisyn Bentley Hematocrit (Bld) [Volume fraction] 37.9 % Normal 36.0-48.0 [facility] Comment on above: Performed By: #### C BC #### [facility] [address] [place] [address] Dr. Madisyn Bentley Hemoglobin (Bld) [Mass/Vol] 12.4 g/dL Normal 12.0-16.0 [facility] Comment on above: Performed By: #### C BC #### [facility] [address] [place] [address] Dr. Madisyn Bentley IG # 0.02 10e3/ul Normal 0.00-0.03 [facility] Comment on above: Performed By: #### C BC #### [facility] [address] [place] [address] Dr. Madisyn Bentley IG % 0.3 % Normal 0.0-0.5 [facility] Comment on above: Performed By: #### C BC #### [facility] [address] [place] [address] Dr. Madisyn Bentley LYMPH # 1.6 103/ul Normal 1.2-3.8 [facility] Comment on above: Performed By: #### C BC #### [facility] [address] [place] [address] Dr. Madisyn Bentley Lymphocytes/100 WBC (Bld) 22.0 % Normal 20.5-60.0 [facility] Comment on above: Performed By: #### C BC #### [facility] [address] [place] [address] Dr. Madisyn Bentley MANUAL DIFF REQ NO Normal [facility] Comment on above: Performed By: #### C BC #### [facility] [address] [place] [address] Dr. Madisyn Bentley MCH (RBC) [Entitic mass] 29.4 pg Normal 26.7-34.0 [facility] Comment on above: Performed By: #### C BC #### [facility] [address] [place] [address] Dr. Madisyn Bentley MCHC (RBC) [Mass/Vol] 32.7 g/dL Normal 29.9-35.2 [facility] Comment on above: Performed By: #### C BC #### [facility] [address] [address] [address] Madisyn Bentley MCV (RBC) [Entitic vol] 89.8 fL Normal 81.0-99.0 [facility] Comment on above: Performed By: #### C BC #### [facility] [address] [place] [address] Dr. Madisyn Bentley MONO # 0.5 103/ul Normal 0.3-0.8 [facility] Comment on above: Performed By: #### C BC #### [facility] [address] [place] [address] Dr. Madisyn Bentley Monocytes/100 WBC (Bld) 7.3 % Normal 1.7-12.0 [facility] Comment on above: Performed By: #### C BC #### [facility] [address] [place] [address] Dr. Madisyn Bentley NEUT # 4.9 103/ul Normal 1.4-6.5 [facility] Comment on above: Performed By: #### C BC #### [facility] [address] [place] [address] Dr. Madisyn Bentley Neutrophils/100 WBC (Bld) 65.5 % Normal 43.0-75.0 [facility] Comment on above: Performed By: #### C BC #### [facility] [address] [place] [address] Dr. Madisyn Bentley Platelet mean volume (Bld) [Entitic vol] 12.1 fL Normal 9.5-13.5 [facility] Comment on above: Performed By: #### C BC #### [facility] [address] [place] [address] Dr. Madisyn Bentley PLT 171 103/ul Normal 150-450 [facility] Comment on above: Performed By: #### C BC #### [facility] [address] [place] [address] Dr. Madisyn Bentley RBC 4.22 106/ul Normal 4.20-5.40 [facility] Comment on above: Performed By: #### C BC #### [facility] [address] [place] [address] Dr. Madisyn Bentley WBC 7.4 103/ul Normal 4.0-11.0 [facility] Comment on above: Performed By: #### C BC #### [facility] [address] [address] [address] Madisyn Bentley LIPID PROFILEon 05-16-2022 CHOL-HDL RATIO NORM SEE BELOW Normal [facility] Comment on above: Result Comment: 3.3 - 4.4 LOW RISK 4.4 - 7.1 AVERAGE RISK 7.1 - 11.0 MODERATE RISK >11.0 HIGH RISK Performed By: #### P T, PTT #### [facility] [address], [place] [address] Dr. Madisyn Bentley Cholesterol [Mass/Vol] 132 mg/dL Normal <=200 [facility] Comment on above: Performed By: #### P T, PTT #### [facility] [address] [address] [address] Madisyn Bentley Cholesterol in HDL [Mass/Vol] 44 mg/dL Normal 40-60 [facility] Comment on above: Performed By: #### P T, PTT #### [facility] [address], [place] [address] Dr. Madisyn Bentley Cholesterol in LDL [Mass/Vol] 59.6 mg/dL Normal [facility] Comment on above: Performed By: #### P T, PTT #### [facility] [address], [place] [address] Dr. Madisyn Bentley Cholesterol.total/C holesterol in HDL [Mass ratio] 3.0 {ratio} Normal [facility] Comment on above: Performed By: #### P T, PTT #### [facility] [address], [place] [address] Dr. Madisyn Bentley HDL NORMAL > or = 60 mg/dl - LO W CARDIOVASCULAR RISK <40 mg/dl - HIGH CARDIOVASCULAR RISK Normal [facility] Comment on above: Performed By: #### P T, PTT #### [facility] [address], [place] [address] Dr. Madisyn Bentley LDL CALC NORMAL SEE BELOW Normal [facility] Comment on above: Result Comment: <100 mg/dl OPTIMAL 100 - 129 mg/dl NEAR OR ABOVE OPTIMAL 130 - 159 mg/dl BORDERLINE HIGH 160 - 189 mg/dl HIGH >190 mg/dl VERY HIGH Performed By: #### P T, PTT #### [facility] [address] [place] [address] Dr. Madisyn Bentley Triglyceride [Mass/Vol] 142 mg/dL Normal <=150 [facility] Comment on above: Performed By: #### P T, PTT #### [facility] [address] [place] [address] Dr. Madisyn Bentley VLDL CALC 28.4 mg/dL Normal [facility] Comment on above: Performed By: #### P T, PTT #### [facility] [address] [place] [address] Dr. Madisyn Bentley PROF 14(COMP METB)on 022 Albumin [Mass/Vol] 3.8 g/dL Normal 3.4-5.0 [facility] Comment on above: Performed By: #### P T, PTT #### [facility] [address] [place] [address] Dr. Madisyn Bentley Albumin/Globulin [Mass ratio] 1.1 {ratio} Normal [facility] Comment on above: Performed By: #### P T, PTT #### [facility] [address] [place] [address] Dr. Madisyn Bentley ALP [Catalytic activity/Vol] 158 U/L Critically high 46-116 [facility] Comment on above: Performed By: #### P T, PTT #### [facility] [address] [place] [address] Dr. Madisyn Bentley ALT [Catalytic activity/Vol] 24 U/L Normal 14-59 [facility] Comment on above: Performed By: #### P T, PTT #### [facility] [address] [place] [address] Dr. Madisyn Bentley Anion gap [Moles/Vol] 14.1 mmol/L Normal [facility] Comment on above: Performed By: #### P T, PTT #### [facility] [address] [place] [address] Dr. Madisyn Bentley AST [Catalytic activity/Vol] 12 U/L Critically low 15-37 [facility] Comment on above: Performed By: #### P T, PTT #### [facility] [address] [place] [address] Dr. Madisyn Bentley Bilirubin [Mass/Vol] 0.7 mg/dL Normal 0.2-1.0 [facility] Comment on above: Performed By: #### P T, PTT #### [facility] [address] [place] [address] Dr. Madisyn Bentley Calcium [Mass/Vol] 8.9 mg/dL Normal 8.5-10.1 [facility] Comment on above: Performed By: #### P T, PTT #### [facility] [address] [place] [address] Dr. Madisyn Bentley Chloride [Moles/Vol] 105 mmol/L Normal 98-107 [facility] Comment on above: Performed By: #### P T, PTT #### [facility] [address] [place] [address] Dr. Madisyn Bentley CO2 [Moles/Vol] 23.4 mmol/L Normal 21.0-32.0 [facility] Comment on above: Performed By: #### P T, PTT #### [facility] [address] [place] [address] Dr. Madisyn Bentley Creatinine [Mass/Vol] 1.64 mg/dL Critically high 0.55-1.02 [facility] Comment on above: Performed By: #### P T, PTT #### [facility] [address] [place] [address] Dr. Madisyn Bentley EGFR-AF BELGIAN 37 mL/min/1.73m2 Critically low >=60 [facility] Comment on above: Performed By: #### P T, PTT #### [facility] [address] [place] [address] Dr. Madisyn Bentley EGFR-NON AF BELGIAN 30 mL/min/1.73m2 Critically low >=60 [facility] Comment on above: Performed By: #### P T, PTT #### [facility] [address] [place] [address] Dr. Madisyn Bentley Globulin (S) [Mass/Vol] 3.5 g/dL Normal [facility] Comment on above: Performed By: #### P T, PTT #### [facility] [address] [address] [address] Madisyn Bentley Glucose [Mass/Vol] 222 mg/dL Critically high 74-106 [facility] Comment on above: Performed By: #### P T, PTT #### [facility] [address] [address] [address] Madisyn Bentley Potassium [Moles/Vol] 4.5 mmol/L Normal 3.5-5.1 [facility] Comment on above: Performed By: #### P T, PTT #### [facility] [address] [place] [address] Dr. Madisyn Bentley Protein [Mass/Vol] 7.3 g/dL Normal 6.4-8.2 [facility] Comment on above: Performed By: #### P T, PTT #### [facility] [address] [place] [address] Dr. Madisyn Bentley Sodium [Moles/Vol] 138 mmol/L Normal 136-145 [facility] Comment on above: Performed By: #### P T, PTT #### [facility] [address] [place] [address] Dr. Madisyn Bentley Urea nitrogen [Mass/Vol] 35.0 mg/dL Critically high 7.0-18.0 [facility] Comment on above: Performed By: #### P T, PTT #### [facility] [address] [place] [address] Dr. Madisyn Bentley Urea nitrogen/Creatinine [Mass ratio] 21.3 mg/mg Normal [facility] Comment on above: Performed By: #### P T, PTT #### [facility] [address] [place] [address] Dr. Madisyn Bentley RENAL FUNCTION PANELon 04-07 Albumin [Mass/Vol] 3.5 g/dL Normal 3.4-5.0 [facility] Comment on above: Performed By: #### R ENAL #### [facility] [address] [address] [address] Madisyn Bentley Calcium [Mass/Vol] 8.1 mg/dL Critically low 8.5-10.1 [facility] Comment on above: Performed By: #### R ENAL #### [facility] [address] [address] [address] Madisyn Bentley Chloride [Moles/Vol] 110 mmol/L Critically high 98-107 [facility] Comment on above: Performed By: #### R ENAL #### [facility] [address] [address] [address] Madisyn Bentley CO2 [Moles/Vol] 20.2 mmol/L Critically low 21.0-32.0 [facility] Comment on above: Performed By: #### R ENAL #### [facility] [address] [place] [address] Dr. Madisyn Bentley Creatinine [Mass/Vol] 1.89 mg/dL Critically high 0.55-1.02 [facility] Comment on above: Performed By: #### R ENAL #### [facility] [address] [address] [address] Madisyn Bentley EGFR-AF BELGIAN 31 mL/min/1.73m2 Critically low >=60 [facility] Comment on above: Performed By: #### R ENAL #### [facility] [address] [place] [address] Dr. Madisyn Bentley EGFR-NON AF BELGIAN 26 mL/min/1.73m2 Critically low >=60 [facility] Comment on above: Performed By: #### R ENAL #### [facility] [address] [address] [address] Madisyn Bentley Glucose [Mass/Vol] 149 mg/dL Critically high 74-106 [facility] Comment on above: Performed By: #### R ENAL #### [facility] [address] [address] [address] Madisyn Bentley Phosphate [Mass/Vol] 3.4 mg/dL Normal 2.6-4.7 [facility] Comment on above: Performed By: #### R ENAL #### [facility] [address] [address] [address] Madisyn Bentley Potassium [Moles/Vol] 4.5 mmol/L Normal 3.5-5.1 [facility] Comment on above: Performed By: #### R ENAL #### [facility] [address] [place] [address] Dr. Madisyn Bentley Sodium [Moles/Vol] 141 mmol/L Normal 136-145 [facility] Comment on above: Performed By: #### R ENAL #### [facility] [address] [place] [address] Dr. Madisyn Bentley Urea nitrogen [Mass/Vol] 34.0 mg/dL Critically high 7.0-18.0 [facility] Comment on above: Performed By: #### R ENAL #### [facility] [address] [place] [address] Dr. Madisyn Bentley UA RANDOMon 04-07-2022 Bilirubin Ql (U) Negative Normal NEGATIVE [facility] Comment on above: Performed By: #### U A #### [facility] [address] [place] [address] Dr. Madisyn Bentley Clarity (U) CLEAR Normal CLEAR [facility] Comment on above: Performed By: #### U A #### [facility] [address] [place] [address] Dr. Madisyn Bentley Color (U) LT. YELLOW Normal YELLOW [facility] Comment on above: Performed By: #### U A #### [facility] [address] [place] [address] Dr. Madisyn Bentley Glucose Ql (U) Negative Normal NEGATIVE [facility] Comment on above: Performed By: #### U A #### [facility] [address] [place] [address] Dr. Madisyn Bentley Hemoglobin Ql (U) Negative Normal NEGATIVE [facility] Comment on above: Performed By: #### U A #### [facility] [address] [place] [address] Dr. Madisyn Bentley Ketones Ql (U) Negative Normal NEGATIVE [facility] Comment on above: Performed By: #### U A #### [facility] [address] [place] [address] Dr. Madisyn Bentley LEUKOCYTES TRACE Abnormal NEGATIVE [facility] Comment on above: Performed By: #### U A #### [facility] [address] [place] [address] Dr. Madisyn Bentley Nitrite Ql (U) Negative Normal NEGATIVE [facility] Comment on above: Performed By: #### U A #### [facility] [address] [place] [address] Dr. Madisyn Bentley pH (U) 5.5 [pH] Normal 5-9 [facility] Comment on above: Performed By: #### U A #### [facility] [address] [place] [address] Dr. Madisyn Bentley SPEC GRAVITY 1.020 Normal 1.005-<=1.02 5 [facility] Comment on above: Performed By: #### U A #### [facility] [address] [place] [address] Dr. Madisyn Bentley UA PROTEIN Negative Normal NEGATIVE/ TRACE [facility] Comment on above: Performed By: #### U A #### [facility] [address] [place] [address] Dr. Madisyn Bentley Urobilinogen Qn (U) 0.2 {Luis Eduardo'U}/dL Normal 0.2 - 1. 0 [facility] Comment on above: Performed By: #### U A #### [facility] [address] [place] [address] Dr. Madisyn Bentley URINE T PROTEIN CREAT RATIOo n 04-07-2022 Protein (U) [Mass/Vol] 25.7 mg/dL Critically high <=12.0 [facility] Comment on above: Performed By: #### P T, PTT #### [facility] [address] [place] [address] Dr. Madisyn Bentley UR PROT CREAT RAT 0.29 Normal [facility] Comment on above: Performed By: #### P T, PTT #### [facility] [address] [place] [address] Dr. Madisyn Bentley URINE CREAT 89.48 mg/dL Normal 20.00-300.00 [facility] Comment on above: Performed By: #### P T, PTT #### [facility] [address] [address] [address] Madisyn Bentley RENAL FUNCTION PANELon 11-25 Albumin [Mass/Vol] 3.7 g/dL Normal 3.4-5.0 [facility] Comment on above: Performed By: #### R ENAL #### [facility] [address] [place] [address] Dr. Madisyn Bentley Calcium [Mass/Vol] 8.6 mg/dL Normal 8.5-10.1 [facility] Comment on above: Performed By: #### R ENAL #### [facility] [address] [place] [address] Dr. Madisyn Bentley Chloride [Moles/Vol] 107 mmol/L Normal 98-107 [facility] Comment on above: Performed By: #### R ENAL #### [facility] [address] [place] [address] Dr. Madisyn Bentley CO2 [Moles/Vol] 23.3 mmol/L Normal 22.0-30.0 [facility] Comment on above: Performed By: #### R ENAL #### [facility] [address] [place] [address] Dr. Madisyn Bentley Creatinine [Mass/Vol] 1.56 mg/dL Critically high 0.55-1.02 [facility] Comment on above: Performed By: #### R ENAL #### [facility] [address] [place] [address] Dr. Madisyn Bentley EGFR-AF BELGIAN 39 mL/min/1.73m2 Critically low >=60 [facility] Comment on above: Performed By: #### R ENAL #### [facility] [address] [place] [address] Dr. Madisyn Bentley EGFR-NON AF BELGIAN 32 mL/min/1.73m2 Critically low >=60 [facility] Comment on above: Performed By: #### R ENAL #### [facility] [address] [address] [address] Madisyn Bentley Glucose [Mass/Vol] 106 mg/dL Normal 74-106 [facility] Comment on above: Performed By: #### R ENAL #### [facility] [address] [address] [address] Madisyn Bentley Phosphate [Mass/Vol] 3.8 mg/dL Normal 2.5-4.5 [facility] Comment on above: Performed By: #### R ENAL #### [facility] [address] [place] [address] Dr. Madisyn Bentley Potassium [Moles/Vol] 4.5 mmol/L Normal 3.4-5.0 [facility] Comment on above: Performed By: #### R ENAL #### [facility] [address] [place] [address] Dr. Madisyn Bentley Sodium [Moles/Vol] 141 mmol/L Normal 137-145 [facility] Comment on above: Performed By: #### R ENAL #### [facility] [address] [place] [address] Dr. Madisyn Bentley Urea nitrogen [Mass/Vol] 27.0 mg/dL Critically high 7.0-18.0 [facility] Comment on above: Performed By: #### R ENAL #### [facility] [address] [place] [address] Dr. Madisyn Bentley UA RANDOMon 11-25-2021 Bilirubin Ql (U) Negative Normal NEGATIVE [facility] Comment on above: Performed By: #### P T, PTT #### [facility] [address] [place] [address] Dr. Madisyn Bentley Clarity (U) CLEAR Normal CLEAR [facility] Comment on above: Performed By: #### P T, PTT #### [facility] [address] [place] [address] Dr. Madisyn Bentley Color (U) LT. YELLOW Normal YELLOW [facility] Comment on above: Performed By: #### P T, PTT #### [facility] [address] [place] [address] Dr. Madisyn Bentley Glucose Ql (U) Negative Normal NEGATIVE [facility] Comment on above: Performed By: #### P T, PTT #### [facility] [address] [place] [address] Dr. Madisyn Bentley Hemoglobin Ql (U) Negative Normal NEGATIVE [facility] Comment on above: Performed By: #### P T, PTT #### [facility] [address] [place] [address] Dr. Madisyn Bentley Ketones Ql (U) Negative Normal NEGATIVE [facility] Comment on above: Performed By: #### P T, PTT #### [facility] [address] [place] [address] Dr. Madisyn Bentley LEUKOCYTES Negative Normal NEGATIVE [facility] Comment on above: Performed By: #### P T, PTT #### [facility] [address] [place] [address] Dr. Madisyn Bentley Nitrite Ql (U) Negative Normal NEGATIVE [facility] Comment on above: Performed By: #### P T, PTT #### [facility] [address] [place] [address] Dr. Madisyn Bentley pH (U) 5.5 [pH] Normal 5-9 [facility] Comment on above: Performed By: #### P T, PTT #### [facility] [address] [place] [address] Dr. Madisyn Bentley SPEC GRAVITY 1.015 Normal 1.005-<=1.[address] [place] [address] Comment on above: Performed By: #### P T, PTT #### [facility] [address] [place] [address] Dr. Madisyn Bentley UA PROTEIN Negative Normal NEGATIVE/ TRACE [facility] Comment on above: Performed By: #### P T, PTT #### [facility] [address] [place] [address] Dr. Madisyn Bentley Urobilinogen Qn (U) 0.2 {Luis Eduardo'U}/dL Normal 0.2 - 1. 0 [facility] Comment on above: Performed By: #### P T, PTT #### [facility] [address] [address] [address] Madisyn Bentley URINE T PROTEIN CREAT RATIOo n 11-25-2021 Protein (U) [Mass/Vol] 20.5 mg/dL Critically high <=12.0 [facility] Comment on above: Performed By: #### U RTPCR #### [facility] [address] [place] [address] Dr. Madisyn Bentley UR PROT CREAT RAT 0.25 Normal [facility] Comment on above: Performed By: #### U RTPCR #### [facility] [address] [place] [address] Dr. Madisyn Bentley URINE CREAT 81.12 mg/dL Normal 20.00-300.00 [facility] Comment on above: Performed By: #### U RTPCR #### [facility] [address] [place] [address] Dr. 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 [place] Number: [id number] Normal [facility] Comment on above: Performed By: #### C #### See report for performing lab information. CNOVSPon 04-15-2018 CNOVSP Visit (SP) Office (HEMAC[facility]) TRISHA PARISH ([id number]) 1945 FDate Time Provider Department04/15/18 2:15 PM ROXANN ONEAL HEMACL During your visit today, we recorded the following information about you: Temperature Pulse Respiration Blood pressure 98.2 degrees 66/minute 16/minute 147/69 Weight Height 80.9 kg 1.626 mMINDY OLIVE ONEAL PA-C 04/15/2018 3:44 PM SignedPatient: Trisha Parish Location[facility] 1945 Attending Physician: Dr. Sadi Nolan: April [...] of lymph node dissection. The tumor was ER/SC positive,HER-2 positve. Ultimately the patient had to [...] to contact the office with questions or concernsMINJORDON TRIPP-CReferring Provider: SADI WALLACE [[id number]]Allergies As of Date: 04/15/2018(No Known Allergies)Date Reviewed: 04/15/2018Reviewed by: Roxann Oneal - Fully AssessedReason for Visit: Breast Cancer [519] Cmt: follow upPrimary Visit Diagnosis:Malignant neoplasm of left breast in female, estrogen receptor positive, unspecified site of breast (HCC) [C50.912, Z17.0]Order(s):[facility] [[id number]] Order #: [id number] FUTUREDisposition: Return in about 1 year (around [...] Status:Closed by ROXANN ONEAL on 04/15/18 Normal [facility] PROGRESSon 04-15-2018 Protein mass conc HNO ID: [id number] thor: Roxann Smithervice: (none)Author Type: Physician AssistantType: Progress NotesFiled: 04/15/2018 3:44 PMNote Text:Patient: Trisha Parish [facility] 1945 Attending Physician: Dr. Sadi Sotoate: April [...] time of lymph node dissection. The tumor wasER/SC positive, HER-2 positve. Ultimately the patient had [...] with questions or concernsROXANN ONEAL PA-C Normal [facility] MAMM OUTSIDE DICOM IMPORT -N BNRon 04-05-2018 MAMM OUTSIDE DICOM IMPORT -NBNR Images were obtained outside of [facility] [id number] Normal [facility] Vital Signs Date Time Vital Sign Value Performing Clinician Facility 07-17-2023 11:00-0500 Body height 153.67 cm Sanya Tineo Other [facility] Other 07-17-2023 11:00-0500 Body mass index (BMI) [Ratio] 28.5 kg/m2 Sanya Tineo Other [facility] Other 07-17-2023 11:00-0500 Body weight 67.31 kg Sanya Tineo Other [facility] Other 07-17-2023 11:00-0500 Diastolic blood pressure 65 mm[Hg] Sanya Tineo Other [facility] Other 07-17-2023 11:00-0500 Systolic blood pressure 121 mm[Hg] Sanya Tineo Other [facility] Other 05-11-2023 11:30-0400 Body height 153.67 cm Sanya Tineo Other [facility] Other 05-11-2023 11:30-0400 Body mass index (BMI) [Ratio] 27.27 kg/m2 Sanya Tineo Other [facility] Other 05-11-2023 11:30-0400 Body weight 64.41 kg Sanya Tineo Other [facility] Other 05-11-2023 11:30-0400 Diastolic blood pressure 61 mm[Hg] Sanya Tineo Other [facility] Other 05-11-2023 11:30-0400 SaO2% (BldA) [Mass fraction] 97 % Sanya Tineo Other [facility] Other 05-11-2023 11:30-0400 Systolic blood pressure 107 mm[Hg] Sanya Tineo Other [facility] Other 04-17-2023 10:45-0400 Body height 153.67 cm Sanya Tineo Other [employer] Other 04-17-2023 10:45-0400 Body mass index (BMI) [Ratio] 27.89 kg/m2 Sanya Tineo Other [employer] Other 04-17-2023 10:45-0400 Body weight 65.86 kg Sanya Tineo Other [employer] Other 04-17-2023 10:45-0400 Diastolic blood pressure 72 mm[Hg] Sanya Tineo Other [employer] Other 04-17-2023 10:45-0400 Respiratory rate 12 /min Sanya Tineo Other [employer] Other 04-17-2023 10:45-0400 Systolic blood pressure 133 mm[Hg] Sanya Tineo Other [employer] Other 02-09-2023 11:00-0400 Body height 153.67 cm Sanya Tineo Other [employer] Other 02-09-2023 11:00-0400 Body mass index (BMI) [Ratio] 27.47 kg/m2 Sanya Tineo Other [employer] Other 02-09-2023 11:00-0400 Body weight 64.86 kg Sanya Tineo Other [employer] Other 02-09-2023 11:00-0400 Diastolic blood pressure 62 mm[Hg] Sanya Tineo Other [employer] Other 02-09-2023 11:00-0400 SaO2% (BldA) [Mass fraction] 98 % Sanya Tineo Other [employer] Other 02-09-2023 11:00-0400 Systolic blood pressure 125 mm[Hg] Sanya Tineo Other [employer] Other 09-08-2022 11:30-0500 Body height 153.67 cm Sanya Tineo Other [employer] Other 09-08-2022 11:30-0500 Body mass index (BMI) [Ratio] 29.77 kg/m2 Sanya Tineo Other [employer] Other 09-08-2022 11:30-0500 Body weight 70.31 kg Sanya Tineo Other [employer] Other 09-08-2022 11:30-0500 Diastolic blood pressure 58 mm[Hg] Sanya Tineo Other [employer] Other 09-08-2022 11:30-0500 SaO2% (BldA) [Mass fraction] 97 % Sanya Tineo Other [employer] Other 09-08-2022 11:30-0500 Systolic blood pressure 110 mm[Hg] Sanya Tineo Other [employer] Other Encounters Encounter Date Encounter Type Care Provider Facility Start: 08-28-2023 End: 08-28-2023 ambulatory DIRK ONEILL Not Available Start: 08-28-2023 End: 08-28-2023 Patient encounter procedure Dirk Oneill DO Work Phone: [facility] Comment on above: 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) Start: 08-21-2023 End: 08-21-2023 ambulatory DIRK ONEILL Not Available Start: 07-24-2023 End: 07-24-2023 ambulatory JENNIFER Ferreira BABATUNDES Not Available Start: 07-17-2023 End: 07-17-2023 ambulatory Sanya Tineo Other [employer] Other Start: 07-17-2023 Patient encounter procedure Sanya wadsworth [facility] Start: 07-10-2023 End: [facility] Start: 05-18-2023 End: 05-18-2023 ambulatory [facility] Start: 05-11-2023 End: 05-11-2023 ambulatory Sanya Tineo Other [employer] Other Start: 05-11-2023 Office outpatient vi sit 15 minutes Sanya Tineo [facility] Start: 05-09-2023 Telephone encounter Sanya Tineo [facility] Start: 05-09-2023 End: 05-10-2023 ambulatory MARGARET ALVAREZ [facility] Other Start: 05-08-2023 End: 05-08-2023 ambulatory Sanya Rivka Other [employer] Other Start: 05-08-2023 Telephone encounter Sanya Rivka [facility] Start: 04-17-2023 End: 04-17-2023 ambulatory Sanya Tineo Other [employer] Other Start: 04-17-2023 Office outpatient vi sit 15 minutes Sanya Tineo [facility] Start: 04-11-2023 End: 04-11-2023 ambulatory [facility] Start: 04-04-2023 Evaluation and manag ement of inpatient [facility] Start: 04-03-2023 End: 04-04-2023 Encounter for preprocedural cardiovascular examination [facility] Start: 04-03-2023 End: 04-04-2023 Evaluation and management of inpatient [facility] Start: 2023 End: 2023 ambulatory [facility] Start: 02-23-2023 End: 02-24-[address] [facility] Start: 02-21-2023 End: 02-21-2023 ambulatory TAYLOR PIÑA [facility] Start: 02-18-2023 End: 02-20-2023 Evaluation and management of inpatient Jailene Quesada Facility:[facility] Start: 02-09-2023 End: 02-09-2023 ambulatory Sanya Tineo Other [facility] [facility] Other Start: 02-09-2023 Office outpatient vi sit 25 minutes Sanya Tineo [facility] Start: 02-07-2023 Evaluation and manag ement of inpatient MARGARET [facility] Start: 02-05-2023 Evaluation and manag ement of inpatient [facility] Start: 02-05-2023 Evaluation and manag ement of inpatient [facility] Start: 02-05-2023 End: 02-07-2023 Evaluation and management of inpatient [facility] Start: 01-23-2023 End: 01-23-2023 ambulatory DOE [facility] Start: 01-17-2023 End: 01-17-2023 ambulatory [facility] Start: 12-05-2022 End: 12-05-2022 ambulatory Sanya Tineo Other [employer] Other Start: 12-05-2022 Telephone encounter Sanya Tineo [facility] Start: 12-04-2022 End: 12-04-2022 ambulatory Sanya Tineo Other [employer] Other Start: 12-04-2022 Telephone encounter Sanya Tineo [facility] Start: 10-24-2022 End: 10-24-2022 ambulatory DOE [facility] Start: 10-06-2022 End: 10-07-2022 ambulatory SHARITA KHAN Facility:[facility] Start: 10-06-2022 Encounter for prepro cedural cardiovascular examination [facility] Start: 09-20-2022 End: 09-20-2022 ambulatory PRECIOUS LOPEZSDRose [facility] Start: 09-12-2022 Evaluation and manag ement of inpatient MIKAYLA MONCADA [facility] Start: 09-12-[address] SANYA TINEO Facil ity:[facility] Start: 09-11-2022 Evaluation and manag ement of inpatient [facility] Start: 09-10-2022 Evaluation and manag ement of inpatient [facility] Start: 09-10-2022 End: 09-12-2022 Evaluation and management of inpatient MICHELE RUPAL [facility] Start: 09-10-2022 End: 09-10-[address] MICHELE GOLDSMITH . Facility:[facility] Start: 09-08-2022 End: 09-08-2022 ambulatory Sanya Tineo Other [employer] Other Start: 09-08-2022 Office outpatient vi sit 25 minutes Sanya Tineo [facility] Start: 06-03-2022 End: 06-04-[address] SANYA TINEO Facility:[facility] Start: 05-23-2022 End: 05-24-2022 ambulatory DIAMOND HILARIO Facility:[facility] Start: 05-16-2022 End: 05-17-[address] SANYA TINEO Facility:[facility] Start: 04-07-2022 End: 04-08-2022 ambulatory SHARITA AKRANJEET Facility:[facility] Start: 11-25-2021 End: 11-26-2021 ambulatory SHARITA AKKINA Facility:[facility] Start: 07-08-2018 End: 07-09-2018 Patient encounter procedure DEFAULT PHYSICIAN Facility:[facility] Start: 04-15-2018 End: 04-16-2018 Patient encounter SADI WALLACE [facility] Procedures Date Procedure Procedure Detail Performing Clinician Start: 08-28-2023 Intravitreal njx pharmacologic agt spx Dirk Oneill DO Work Phone: Start: 02-06-2023 End: 07-19-2023 History of coronary artery bypass grafting Hx of CABG Dirk Oneill DO Work Phone: Start: 01-23-2023 Follow-up visit Follow-up DOE VELAZQUEZ Plan of Treatment Date Care Activity Detail Author Start: 10-03-2023 End: 10-03-2023 Patient encounter procedure 10/03/2023 11:10 AM EST Office Visit [facility] [address] [facility] [address] [place] [id number] Jennifer Morales MD [address] [facility] [address] [place], [place] [id number] [facility] Start: 06-01-2021 Pneumococcal Vaccine : 65+ Years (2 - PPSV23 or PCV20) Pneumococcal Vaccine: 65+ Years (2 - PPSV23 or PCV20) [facility] Immunizations Immunization Date Immunization Notes Care Provider Fa cility 06-28-2022 COVID-19 Pfizer (Pediatric) Sanya Tineo Other [employer] Other 06-16-2022 influenza virus vaccine, split virus (incl. purified surface antigen) Sanya Tineo Other [employer] Other 09-03-2020 COVID-19 Vaccine Moderna - Documentation Purposes Only Sanya Tineo Other [employer] Other 04-26-2020 influenza virus vaccine, split virus (incl. purified surface antigen) Sanya Tineo Other [employer] Other 06-20-2015 influenza virus vaccine, split virus (incl. purified surface antigen) Sanya Tineo Other [employer] Other 06-01-2015 pneumococcal conjuga te vaccine, 13 valent Sanya Tineo Other [employer] Other Payers Date Payer Category Payer Medicare [id number] 2023 Self-pay 2017 Medicare ANTHEM MEDICARE ADVANTAGE ANTHEM MEDICARE ADVANTAGE [id number] 2017-Present [address] [place] [address] [id number] 1959 Medicare [id number] 1945 Unknown [id number] 1945 Unknown [id number] 1945 Unknown [id number] 1945 Unknown [id number] [id number] 1945 Unknown [id number] 2.16.840.1.083541.3.579.2.593 1945 Unknown [id number] [id number] 1945 Unknown [id number] [id number] 1945 Unknown [id number] 2.16.840.1.161506.3.579.2.593 1945 Unknown [id number] 2.16.840.1.542989.3.579.2.593 1945 Unknown [id number] 2.16.840.1.327586.3.579.2.125 9 1945 Unknown [id number] 2.16.840.1.838210.3.579.2.125 9 1945 Unknown [id number] [id number] 9 Unknown Unknown [id number] Social History Date Type Detail Facility Unknown if ever smoked [facility] Other Start: 07-24-2023 Sex Assigned At N [facility] Other Start: 07-24-2023 Tobacco smoking status NHIS Never smoked tobacco [facility] Start: 07-24-2023 Tobacco use and exposure Smokeless tobacco non-user [facility] Start: 08-28-2023 Alcohol intake Ex-drinker (finding) [facility] Start: 07-24-2023 History of Social function [facility] Start: 1945 Sex Assigned At Not on file [facility] Clinical Notes 06-21-2021 to 08-28-2023 Dirk Oneill, DO - 08/28/2023 2:30 PM EST Note Date & Type Note Facility 08-28-2023 Note Time Out 08/28/2023. 2:47 PM. Confirmed correct patient, procedure, site, and patient consented. Anesthesia Topical anesthesia was used. Anesthetic medications included Lidocaine 2%, Proparacaine 0.5%. Procedure Preparation included 5% betadine to ocular surface, eyelid speculum. Injection: 1.25 mg bevacizumab 100 MG/4ML Route: Intravitreal, Site: Left Eye [facility]: [id number], Lot: [id number], Expiration date: 10/24/2023, Waste: 0 mL Post-op Post injection exam found visual acuity of at least counting fingers, no retinal detachment, perfused optic nerve. The patient tolerated the procedure well. There were no complications. The patient received written and verbal post procedure care education. Post injection medications were not given. Notes Intravitreal antiVEGF Treatment: Risks, benefits and alternatives were discussed for Intravitreal injection with the prescribed antiVEGF agent. With intraocular surgery, there is potential for direct retinal damage through retinal or RPE tear, or infection, with subsequent vision loss. Informative Intravitreal pamphlet provided as well as an OMIC consent. Of course, the treatment may fail to accomplish the overall therapeutic objectives, which is to stall or decrease the amount of retinal edema / bleeding, and therefore stall or improve vision loss. Intravitreal Anti-VEGF: Consent was obtained and questions answered. Operative eye was identified, receiving topical proparacaine, 5% betadine, and 2% xylocaine jelly. A lid speculum was placed and the inferotemp. injection site received additional anesthetic with a proparacaine soaked cotton swab. Using calipers (set at 3.5mm for pseudo and 4mm for phakic), the inferotemp. limbus was measured, sclera marked and 2 additional drops of betadine placed. Avoiding any talking to avoid contamination, intravitreal injection was carried out without difficulty. Any residual amount of medication was discarded appropriately. The patient tolerated the procedure well and instructed to call with increased pain, redness, decreased vision or concerns. [facility] 08-28-2023 History of Presen t illness Narrative Images from the original note were not included. 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 2:47 PM. Confirmed correct patient, procedure, site, and patient consented. Anesthesia Topical anesthesia was used. Anesthetic medications included Lidocaine 2%, Proparacaine 0.5%. Procedure Preparation included 5% betadine to ocular surface, eyelid speculum. Injection: 1.25 mg bevacizumab 100 MG/4ML Route: Intravitreal, Site: Left Eye [facility]: [id number], Lot: [id number], Expiration date: 10/24/2023, Waste: 0 mL Post-op Post injection exam found visual acuity of at least counting fingers, no retinal detachment, perfused optic nerve. The patient tolerated the procedure well. There were no complications. The patient received written and verbal post procedure care education. Post injection medications were not given. Notes Intravitreal antiVEGF Treatment: Risks, benefits and alternatives were discussed for Intravitreal injection with the prescribed antiVEGF agent. With intraocular surgery, there is potential for direct retinal damage through retinal or RPE tear, or infection, with subsequent vision loss. Informative Intravitreal pamphlet provided as well as an OMIC consent. Of course, the treatment may fail to accomplish the overall therapeutic objectives, which is to stall or decrease the amount of retinal edema / bleeding, and therefore stall or improve vision loss. Intravitreal Anti-VEGF: Consent was obtained and questions answered. Operative eye was identified, receiving topical proparacaine, 5% betadine, and 2% xylocaine jelly. A lid speculum was placed and the inferotemp. injection site received additional anesthetic with a proparacaine soaked cotton swab. Using calipers (set at 3.5mm for pseudo and 4mm for phakic), the inferotemp. limbus was measured, sclera marked and 2 additional drops of betadine placed. Avoiding any talking to avoid contamination, intravitreal injection was carried out without difficulty. Any residual amount of medication was discarded appropriately. The patient tolerated the procedure well and instructed to call with increased pain, redness, decreased vision or concerns. documented in this encounter [facility] 07-17-2023 Evaluation note Encounter Date Diagnosis Assessment [...] Z85.3) Handwrote rx for prothesis bra #3 [employer] Other 10-13-2023 NoteUT Cardiology - [facility] Subjective Trisha Parish is [...] In September 2022 she was admitted to [facility] with weakness. She was found to have [...] presented to the emergency room at the [facility] with dizziness and low blood pressure. She [...] and dry. Neurological: General (more content not included)...[facility] 05-11-2023 Evaluation note* Encounter Date Diagnosis Assessment Notes Treatment Notes Treatment Clinical Notes May, Bronchitis (ICD-10 - J40) Complete course of antibiotics. Discussed steroids for dyspnea. was recently ill as well. ER if symptoms worsen or fevers begin over weekend. [facility] Other 10-03-2023 Evaluation note* Encounter Date Diagnosis Assessment Notes Treatment Notes Treatment Clinical Notes May, Cough, unspecified type (ICD-10 - R05.9) [facility] Other 09-12-2023 Evaluation note* Encounter Date Diagnosis Assessment Notes Treatment Notes Treatment Clinical Notes Apr, Other specified postprocedural states (ICD-10 - Z98.890) s/p Aortic valve repair - doing very well. Energy is improving. 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 Other 09-06-2023 NoteUT Cardiology - [facility] Subjective Trisha Parish is [...] In September 2022 she was admitted to [facility] with weakness. She was found to have [...] presented to the emergency room at the [facility] with dizziness and low blood pressure. She [...] Behavior: Behavior is cooperati (more content not included)...[facility]08-30-2023 NoteSubjective Patient lying in bed without complaints. Denies chest pain or palpitations. V pacing on ECG monitor. Denies shortness of breath. No supplemental oxygen requirements. Denies numbness, tingling, and weakness to bilateral upper and lower extremities. Afebrile. Objective Patient Vitals for the past 24 hrs: BP Temp Temp src Pulse Resp SpO2 Height Weight 04/04/23 1337 151/58 36.4 ???C (97.5 ???F) [facility] 60 12 -- 1.626 m (5' 4.02 [...] CT surgery standpoint. Medical management per cardiology team.[facility]08-30-2023 Note04/04/23 1035 Admission Assessment Questions Verify insurance [...] Discharge? Yes Does the patient have a case mgr assigned to them through their insurance? No Living Arrangement (Current/Prior to Hospitalization) Private residence (3 steps to enter) Does the patient have history of HHC or SNF? Yes (Hx of rehab placement in [place]) Assistive Device Grab bars Patient's goal for [...] you able to send link and activate [employer]? MyChart already active [facility]08-29-2023 NoteIndications; Mrs. Robbins is a 78-year-old female [...] the right common femoral Utilizing 2 6 [place]ian ProGlide devices 6. Angio-Seal vascular closure in the right femoral, artery Director Clinical Applications; interventional canal structure operator; Toño Balbuena MD Cardiac surgery canal structure operator; Lina Lamas MD ; potable water treatment operator Herve Mayorga MD ; Methods; Procedure was explained to the patient with risks and benefits. She signed informed consent. She was brought to the Credit Administration Manager in a fasting state. The procedure was performed the Credit Administration Manager under conscious sedation. Both groin areas were prepped and draped in usual fashion. Micropuncture technique and ultrasound guidance was used to access the right common femoral artery and inner cannula angiography was performed following by upsizing to a 6 Zambian by 11 cm sheath. The same was done for for access in the left common femoral artery. Ultrasound guidance was used for micropuncture access in left common femoral vein and 6 Z[place]ian by 11 cm introducer sheath was secured in place. This time we proceeded with preclosure in the right common femoral artery using 2 crossing perclosure devices and the access was then upsized over wire to the 10 Zambian sheath. Heparin was given intravenously and therapeutic ACT was confirmed during the rest of the procedure and additional heparin was given as needed. A 5 Zambian balloontipped pacemaker wire was advanced through the femoral sheath into the right ventricular apex and adequate capture was confirmed. Right common femoral artery was accessed and upsized over an Amplatz extra-stiff wire to the 14 [place] Medtronic sheath. Through the left common femoral sheath an angled 6 Zambian pigtail catheter was then advanced to the ascending aorta into the 9 coronary cusp. Aortic root angiography was performed and the cause overlap view as determined by prior CT scan measurements. A 6 Zambian AL diagnostic catheter was advanced via the right femoral sheath and using a stiff Glidewire the aortic valve was crossed and the catheter was advanced into the left ventricular cavity and using exchange length J-wire a 6 [place]ambian angled pigtail catheter was advanced to make [...] valve over the wire across the aortic tulalip aortic valve and under pacing at 120 [...] and removed outside the body. The 14 Zambian access sheath was placed across the right femoral and 6 Zambian angled pigtail catheter was advanced across the [...] previous placed per (more content not included)... [facility]08-29-2023 NotePatient: Trisha Parish Procedure Information Date/Time: 04/03/23 1100 Procedure: TAVR Location: [facility] 3 / [facility] (Cath) Providers: Toño Balbuena MD Clinical information reviewed: Allergies Meds OB Status Physical Exam Airway Mallampati: II TM distance: >3 FB Neck ROM: full Cardiovascular Rhythm: regular Rate: normal Dental Pulmonary Abdominal Anesthesia Plan ASA 3 other (Moderate sedation) Anesthetic plan and risks discussed with patient. Use of blood products discussed with patient who consented to blood products. [facility] Note [place] [facility] - [facility] Subjective Trisha Parish is a 78 y.o. year old female patient being seen for follow up ELENA and to discuss TAVR. Had labs last week after nephrology apt. Says she's feeling much better. Denies chest pain and SOB. Patient Active Problem List Diagnosis Heart block Acute renal failure syndrome (CMS/HCC) Anemia Atrial fibrillation ([facility]/HCC) Benign hypertensive renal disease Carotid artery stenosis Cerebrovascular accident (CMS/HCC) Coronary arteriosclerosis Essential hypertension Hypertensive disorder Hyperparathyroidism due to renal insufficiency (CMS/HCC) Breast CA ([facility]/HCC) Malignant neoplasm of female breast (CMS/HCC) Proteinuria Stage 3 chronic kidney disease ([facility]/HCC) Stage 4 chronic kidney disease ([facility]/HCC) Type 2 diabetes mellitus ([facility]/HCC) Vitamin D deficiency 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 Social History Tobacco Use Smoking status: Never Smokeless tobacco: Never Substance Use Topics Alcohol use: Never Drug use: Never Update: 02/21/2023 She was hospitalized at [facility] for 3 days after presenting with dizziness [...] other elevated She was hospitalized 02/04-02/07/23 at [facility] and underwent coronary angiography and right heart [...] mouth in the morning., Disp: , Rfl: FreeStyle Stephy 2 Sensor kit, , Disp: , [...] Date WBC 6.44 02/06 (more content not included)...[facility] 02-09-2023 Evaluation note* Encounter Date Diagnosis Assessment Notes Treatment Notes Treatment Clinical Notes Feb, Nonrheumatic aortic valve stenosis (ICD-10 - I35.0) Discussed followup testing and likely procedure coming up at [facility] at length w pt and Feb, Chronic kidney disease, stage 3 unspecified (ICD-10 - N18.30) Reviewed labs - condition stable Feb, CAD in tulalip artery (ICD-10 - I25.10) Further f/u w [facility] Cardiology Feb, Essential hypertension (ICD-10 - I10) Improved on present meds. [employer] Other 07-05-2023 NotePhysical Therapy Physical Therapy Evaluation [...] General Subjective: RN and pt agreeable to EDMUNDO jamil at this date. Patient found in supine upon initiation of session, upon conclusion of session, patient in chair with call light in reach and tray table in front. During session, patient confided in keno writer / runner that they felt as though their balance had decreased during this admission and that they were worried about walking due to occasional and unpredictable losses of balance. Patient reported that they thought it could be related to neuropathy at their feet, but were unsure. Patient told keno writer / runner that they wished to address loss of balance issues sooner rather than later and they felt less confident walking. Patient Active Problem List Diagnosis Heart block Acute renal failure syndrome ([facility]/HCC) Anemia Atrial fibrillation ([facility]) Benign hypertensive renal disease Carotid artery stenosis Cerebrovascular accident ([facility]/HCC) Coronary arteriosclerosis Essential hypertension Hypertensive disorder Hyperparathyroidism due to renal insufficiency ([facility]/HCC) Breast CA ([facility]) Malignant neoplasm of female breast ([facility]) Proteinuria Stage 3 chronic kidney disease ([facility]/HCC) Stage 4 chronic kidney disease ([facility]/HCC) Type 2 diabetes mellitus ([facility]/HCC) Vitamin D deficiency 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 ([facility]) Pre-operative cardiovascular examination, recent myocardial infarction ([facility]) Cardiac pacemaker in situ Postural dizziness with presyncope NSTEMI (non-ST elevated myocardial infarction) ([facility]) Hx of CABG Severe aortic stenosis Past Medical History: Diagnosis Date A-fib ([facility]) Cancer ([facility]) Coronary artery disease Hypertension Myocardial infarct ([facility]) Stroke ([facility]) Past Surgical History: Procedure Laterality Date [...] Level of Function Prior Function Level of Rapides: Independent with ADLs and functional transfers Prior [...] Standing Balance Dynamic Darwin (more content not included)...[facility] 02-07-2023 NoteHospital Medicine Discharge Summary Final Discharge [...] side. For her symptoms she presented to [facility]. Patient had elevated troponin at 2000 but down trending. Patient also had HTN urgency which improved. Case was discussed by [facility] hospital with Dr. Wilks and patient was [...] Medications These medications were sent to [facility] - [place], [place] - [address] [place] [address] [place] [address], [facility] [address] lisinopril 40 mg tablet NIFEdipine CC 60 mg 24 hr tablet spironolactone 25 mg tablet Trisha is allergic to demerol [meperidine]. Disposition: Home or Self Care Discharge Condition: Stable Code Status: Full Code Diagnostic Results Hematology: Results from last 7 days Lab Units 02/06/2331 02/04/23 2327 WBC AUTO 10*3/uL 6.44 7.58 [...] Normal activity as tolerate (more content not included)...[facility]07-04-2023 NoteHospital Medicine Daily Progress Note - 02/06/2023 1:29 PM; Room: [address] [place] [address] Admission: 02/04/2023 10:47 PM; Length of stay: 2 days THE HOSPITALIST TEAM PREFERS TO USE Vertra CHAT FOR COMMUNICATION 7AM-7PM. IF I DO NOT RESPOND WITHIN 15 MINUTES, PLEASE PAGE ME/CALL THROUGH THE ASSET RECOVERY SPECIALIST. FROM 7PM-7AM, PLEASE PAGE [phone](COVR) Code Status: Full Code Discharge Destination: home [...] Cardiac pacemaker in situ Anemia Atrial fibrillation ([facility]) Carotid artery stenosis Essential hypertension Hypertensive disorder Breast CA ([facility]) Type 2 diabetes mellitus ([facility]) Vitamin D deficiency Postural dizziness with presyncope Hx of CABG NSTEMI (non-ST elevated myocardial infarction) ([facility]) Assessment and Plan #Near-syncope #NSTEMI type I [...] Results Component Value D (more content not included)...[facility]07-04-2023 Note Attestation signed by Matilda Valentin MD [...] Temporal 77 16 98 % -- 02/05/23 194 (!) 175/91 -- -- 83 22 99 [...] Value Ventricular Rate 72 Atrial Rate 72 SC Interval 162 QRS DURATION 150 QT Interval 464 QTC CALCULATION(BAZETT) 508 P Brothers 70 R-Brothers -40 T Wave Brothers 103 Impression Atrial-sensed ventricular-paced rhythm Abnormal ECG When compared with ECG of 10-SEP-2022 13:04, Electronic ventricular pacemaker has replaced Sinus rhythm Confirmed by Cheryl VALENTIN, MATILDA Robles ([id number]) on 02/05/2023 8:39:37 AM Lab Results Component Value Date TROPONINI 0.25 (HH) 02/05/2023 Complete Echo (TTE) w/wo Imaging Agent, Strain, 3D, Bubble Study Result Date: 02/05/2023 1 1 [place] [facility] Heart Station [address] [place] [address] [phone] (fax) Echocardiogram-[facility] Name: TRISHA PARISH Study Date: 02/05/2023 09:59 AM B/P: 136 mmHg/65 mmHg HR: 61 bpm Date of : 1945 Location: [facility] Height: 63 in. Age: 77 year(s) Patient [...] cm?? Aortic Va (more content not included)... [facility]07-04-2023 NoteCTA CHEST W AND/OR WO IV CONTRAST [...] 3 cusped view, anterior view and no VENUE MANAGER-CAU view are obtained in 3-D volume rendered [...] diameter of 23 mm. Electronically signed: Fely Carrington.[facility] Comment on above:Order Comment: TAVR [id number] NoteCTA ABDOMEN PELVIS W AND/OR WO IV [...] spondylosis and levoconvex scoliosis. Electronically signed: Fely Carrington.[facility] 02-05-2023 NotePatient: Trisha Parish Procedure Information Date/Time: 02/05/23 1800 Procedures: Coronary angiography Right heart cath Valve assessment - Aortic valve Location: [facility] / [facility] (Cath) Providers: Herve Mayorga MD Clinical information reviewed: Allergies Meds Physical Exam Airway Mallampati: III Cardiovascular Rhythm: regular Dental Pulmonary Abdominal Anesthesia Plan ASA 3 other (Conscious sedation ) intravenous induction Anesthetic plan and risks discussed with patient. Use of blood products discussed with patient who. Additional Equipment RequestsOhioHealth [facility]07-03-2023 Note Clinical Nutrition Assessment Name: Trisha [...] Daily MELATONIN ORAL oral, 4 times weekly, Sun,,Sun,Sun NIFEdipine CC (ADALAT CC) 30 mg, oral, [...] Goals: intake > 75% meals Alexander Chowdhury RDOhioHealth Van Wert Hospital07-03-2023 NoteHospital Medicine Daily Progress Note - 02/05/2023 12:08 PM; Room: [address] [place] [address] Admission: 02/04/2023 10:47 PM; Length of stay: 1 days THE HOSPITALIST TEAM PREFERS TO USE Vertra CHAT FOR COMMUNICATION 7AM-7PM. IF I DO NOT RESPOND WITHIN 15 MINUTES, PLEASE PAGE ME/CALL THROUGH THE ASSET RECOVERY SPECIALIST. FROM 7PM-7AM, PLEASE PAGE [phone](COVR) Code Status: Full Code Discharge Destination: home [...] 1.36 09/10/2022 Lab Results Component Value Date OFOQVTQC32 177 (L) 09/10/2022 IRON 27 (L) 09/10/2022 TIBC 203 (L) 09/10/2022 Imaging ECG 12 lead Atrial-sensed ventricular-paced rhythm Abnormal ECG When compared with ECG of 10-SEP-2022 13:04, Electronic ventricular pacemaker has replaced Sinus rhythm Confirmed by Cheryl VALENTIN, MATILDA Robles ([id number]) on 02/05/2023 8:39:37 AM Discharge Planning Discharge Planning Has discharge transport been arranged?: No Signed Josr Ray NP Hospital Medicine 02/05/2023 12:08 PMOhioHealth [facility]07-03-2023 NoteHospital Medicine History and Physical 02/05/2023 12:23 AM THE HOSPITALIST TEAM PREFERS TO USE Vertra CHAT FOR COMMUNICATION 7AM-7PM. IF I DO NOT RESPOND WITHIN 15 MINUTES, PLEASE PAGE ME/CALL THROUGH THE ASSET RECOVERY SPECIALIST. FROM 7PM-7AM, PLEASE PAGE [phone](COVR) Chief Complaint Direct transfer History of Present [...] urgency which improved. Case was discussed by [facility] with Dr. Wilks and patient was [...] 02/05/2023 Pre-operative cardiovascular examination, recent myocardial infarction (CMS/HCC) 10/06/2022 Atrial fibrillation (CMS/HCC) 09/20/2022 Carotid artery stenosis 09/20/2022 Cerebrovascular accident ([facility]) 09/20/2022 Coronary arteriosclerosis 09/20/2022 Hypertensive disorder 09/20/2022 Heart block 09/10/2022 Hyperparathyroidism due to renal insufficiency ([facility]) 04/02/2019 Stage 4 chronic kidney disease ([facility]) 04/02/2019 Anemia 02/19/2017 Essential hypertension 02/19/2017 Malignant neoplasm of female breast ([facility]) 02/19/2017 Proteinuria 02/19/2017 Vitamin D deficiency 02/19/2017 Type 2 diabetes mellitus ([facility]) 07/09/2014 Acute renal failure syndrome ([facility]) 11/06/2013 Benign hypertensive renal disease 11/06/2013 Stage 3 chronic kidney disease ([facility]) 11/06/2013 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 Past Medical History Past Medical History: Diagnosis Date A-fib ([facility]) Cancer ([facility]) Coronary artery disease Hypertension Myocardial infarct ([facility]) Stroke ([facility]) Past Surgical History Past Surgical History: Procedure Laterality Date BREAST SURGERY CHOLECYSTECTOMY CORONARY ARTERY BYPASS GRAFT HYSTERECTOMY Social History Social History Socioeconomic Histor (more content not included)...[facility]06-20-2023 NoteUT Electrophysiology Consult Note Reason for visit: s/p PPM for AV block, AF s/p cryomaze HPI: Trisha Parish is a 77 y.o. 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 She was recently admitted to [facility] for weakness, suspected to have a stroke [...] stroke who presented with generalized weakness to [facility]. At [facility], EKG demonstarted a 2:1 AV block with prolonged SC interval 266. Chest x-ray demonstrated possible trace [...] heart rate 59. Patient was transferred to [facility] for further evaluation by cardiology. She was [...] PMH: Past Medical History: Diagnosis Date A-fib ([facility]) Cancer ([facility]) Coronary artery disease Hypertension Myocardial infarct ([facility]) Stroke ([facility]) PSH: Past Surgical History: Procedure Laterality [...] mg chemo tablet anastrozole (more content not included)...[facility]06-14-2023 NoteUT Cardiology - [facility] Subjective Trisha Parish is a 77 [...] In September 2022 she was admitted to [facility] with weakness. She was found to have [...] capsule in the morning., Disp: , Rfl: FreeStyle Stephy 2 Sensor kit, , Disp: , [...] (Pepcid) 20 mg tablet (more content not included)...[facility]03-03-2023 NoteDressing removed and incision is healing well without any s/s of infection.[facility]03-03-2023 NoteHypertension is currently well controlled with addition of nifedipine, continue current med regime.[facility]03-03-2023 NoteUTP CARDIOLOGY PROGRESS NOTE HPI: Trisha Parish [...] 1 tablet by mouth in the morning. Wed,,Sat,Sun sertraline (Zoloft) 25 mg tablet sertraline 25 [...] Bubble Study Result Date: 09/11/2022 1 1 [place] [facility] Heart Station [address] [facility] [place] [address] [phone] (fax) Echocardiogram-[facility] Name: TRISHA PARISH Study Date: 09/11/2022 10:26 AM B/P: 125 mmHg/69 mmHg HR: 68 bpm Date of : 1945 Location: [facility] Height: 63 in. Age: 77 year(s) Patient [...] suggest mildly elevated right (more content not included)...[facility]03-03-2023 NotePatient is here today for hypertension. Review of Systems Cardiovascular: Positive for irregular heartbeat. Gastrointestinal: Positive for constipation. All other systems reviewed and are negative.[facility] 09-20-2022 Note-s/p dual-chamber PPM -Follow-up with device clinic within the next 2 to 3 weeksUnTr[facility]02-15-2023 Note- He is hypertensive today but also has not had nifedipine -Currently takes 60 mg in the morning and 30 mg at night -We will have her start with 30 mg daily and return to clinic in 1 to 2 weeks for hypertension checkUnTrinity Health System02-15-2023 NoteCoronary artery disease is stable -Continue current medicationsUnTrinity Health System02-15-2023 Note- [id number] (age, gender, history of CVA) -s/p PARISH clipping, she is on Plavix -Follow-up with device check for concerns of arrhythmiaUnTrinity Health System02-15-2023 Note- Follow-up with manager knowledge regarding calcitriol [facility]02-15-2023 NoteUT Electrophysiology Consult Note Reason for visit: hospital follow up, wound check, hypertension HPI: Trisha Parish is a 77 y.o. 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 She was recently admitted to [facility] for weakness, suspected to have a stroke [...] continue the medication and follow-up with PCP/manager knowledge Her device dressing is clean dry and [...] stroke who presented with generalized weakness to [facility]. She presented with 2-day history of exertional shortness of breath and weakness with intermittent palpitations. She stated that her legs felt heavy. She denied any recent changes of medication and illness. Patient states that she does take Plavix daily. She denies any use of anticoagulation. At [facility], EKG demonstarted a 2:1 AV block with prolonged SC interval 266. Chest x-ray demonstrated possible trace [...] heart rate 59. Patient was transferred to [facility] for further evaluation by cardiology. She was [...] mitral regurgitation, mild to (more content not included)...[facility]02-15-2023 NotePatient here for wound check s/p device placement with Dr. Soto on 09/11/2022. She called the office yesterday to make us aware her BP has been running in the 170's-180's systolic since nifedipine was discontinued while at [facility]. Still feels palpitations. She sees nephrology out of [place]. Review of Systems Constitutional: Positive for malaise/fatigue. Cardiovascular: Positive for palpitations. All other systems reviewed and are negative.[facility] 09-12-2022 NoteCardiology Progress Note Subjective Subjective: Assessed [...] Lab PROCEDURE PERFORMED: 1. Implantation of pacemaker ([employer]) 2. Ultrasound guided venous access INDICATIONS: [...] for device interrogation and 3 months with [employer] Objects Salesperson. Mikayla Moncada HORIZONTAL BORING MILL OPERATOR Division of Cardiology, [facility]- [phone] Pager- [phone] Email- [email or web address]02-06-2023 NoteDUAL CHAMBER PACEMAKER IMPLANT PROCEDURE NOTE DATE OF PROCEDURE: 09/11/2022 PERFORMING PHYSICIAN: Dr. Doe Soto CONSENT: Patient LOCATION: EP Lab PROCEDURE PERFORMED: 1. Implantation of pacemaker ([employer]) 2. Ultrasound guided venous access INDICATIONS: [...] using modified seldinger technique using a 5 Zambian micro-puncture needle on two occasions and 0.35 [...] for the device above the muscle. 6 Zambian Safesheaths were placed over the wire. An active fixation [employer] pacing lead was then delivered through [...] 1-0 Silk sutures. Then an active fixation [employer] lead was delivered through the 6Fsheath [...] x 2 weeks Doe Soto MD Cardiac ElectrophysiologyUnTrinity Health System02-06-2023 Note Patient: Trisha Parish Procedure Information Date/Time: 09/11/22 1459 Procedure: Pacemaker DC new Location: [facility] 1 / [facility] (Cath) Providers: Doe Soto MD Clinical information reviewed: Tobacco Allergies Meds Med Hx Surg Hx Fam Hx Soc Hx Physical Exam Airway Mallampati: II TM distance: >3 FB Neck ROM: full Cardiovascular Dental Pulmonary Abdominal Anesthesia Plan ASA 2 CSE Anesthetic plan and risks discussed with patient. Use of blood products discussed with patient who. Additional Equipment RequestsUnTrinity Health System02-06-2023 Note Attestation signed by Matilda Valentin MD [...] -- 77 18 92 % -- -- 09/10/222112 -- 38.2 ???C (100.7 ???F) -- -- -- -- -- -- 09/10/22 2100 (!) 121/49 -- -- 81 17 93 % -- -- 09/10/22 2000 131/53 -- -- 69 20 97 % [...] 98 QT Interval 464 QTC CALCULATION(BAZETT) 455 R-Brothers 20 T Wave Brothers 14 Impression Sinus rhythm with 2nd degree A-V block (Mobitz I) Moderate voltage criteria for LVH, may be normal variant ( Sokolow-Lord , [place] product ) Nonspecific ST abnormality Abnormal ECG [...] CAD s/p CABG (2014 (more content not included)...[facility]02-06-2023 Note Attestation signed by Easton Boone MD [...] Parish Age - 77 [facility]. [facility] 1945 [id number] Date of Admission - 09/10/2022 11:01 AM HPI/Hospital Course Subjective Trisha Parish is a 77 y.o. female with a past medical history significant for atrial fibrillation status post maze and left atrial appendage clip, coronary artery disease status post CABG, hypertension, stroke who presented with generalized weakness to [facility]. She presented with 2-day history of exertional shortness of breath and weakness with intermittent palpitations. She stated that her legs felt heavy. She denied any recent changes of medication and illness. Patient states that she does take Plavix daily. She denies any use of anticoagulation. At [facility], EKG demonstarted a 2:1 AV block with prolonged SC interval 266. Chest x-ray demonstrated possible trace [...] heart rate 59. Patient was transferred to [facility] for further evaluation by cardiology. On my evaluation, patient denied chest pain shortness of breath, lightheadedness, dizziness. She did state that she continued to feel weak. Patient arrived while on dopamine infusion. However, heart rate was noted to be in the 30s to 40s. Labs at [facility] suggestive of subclinical hypothyroidism, prediabetes and iron [...] Results ABG: No results found for: PHART, ZUB0FXS, PO2ART, JAS6PEO, IONCALART No results found for: PHVEN, VEQ6APT, PO2VEN, BCO7DWD, IONCALVEN CBC: Results from last 7 days [...] 3.9 4.0 CHLORIDE mm (more content not included)...[facility] 09-10-2022 Note Attestation signed by Suzi Daly [...] ESTIMATED BLOOD LOSS: 5 ml Camille Millard [facility] Fellow [facility]02-03-2023 Evaluation note* Encounter Date Diagnosis Assessment [...] ultrasound thyroid from May 2022 with Trisha. [employer] Other 11-16-2021 NotePROCEDURE REPORT Specimen #: [id number] Submitting Physician: Abner Wheeler MD SPECIMEN SUBMITTED [...] developed and its performance characteristics determined by [facility]'s Carlo Robles [facility] Pathology and Laboratory Medicine [place] (RT[facility]). It has not been cleared or approved by the FDA. 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- Primary documented in this encounter [facility] HealthcareHistory general Narrative - Reported* Type Description Date Medical History CAD in tul[place]ip artery Medical History Diabetes mellitus ty pe 2, uncontrolled, without complications Medical History Chronic kidney disease, stage 3 unspecified Medical History Elevated glucose Medical History Right thyroid nodule Medical History Menopause Medical History Enlarged thyroid gland Medical History Anxiety, generalized Medical History Essential hypertension Surgical History CHOLECYSTECTOMY 2014 Surgical History LEFT BREAST MASTECTOMY Hospitalization History SEE SURGICAL HX [employer] Other History general Narrative - Reported* Type Description Date Medical History CAD in t[place] artery Medical History Diabetes mellitus ty pe 2, uncontrolled, without complications Medical History Chronic kidney disease, stage 3 unspecified Medical History Elevated glucose Medical History Right thyroid nodule Medical History Menopause Medical History Enlarged thyroid gland Medical History Anxiety, generalized Medical History Essential hypertension Medical History Heart attack Surgical History CHOLECYSTECTOMY 2014 Surgical History LEFT BREAST MASTECTOMY Hospitalization History SEE SURGICAL HX [employer] Other Summary Purpose Family History No Family [...] 1 Post-nasal drip (R09 .82) Referral Organization [facility] Referring Provider First Name Sanya Referring Provider Last Name Rivka Referring Provider Specialty Family Medi cine Referred Organization [facility] Referred Address ,[place], [place],[address] Referred Provider Specialty Ear, Nose an d Throat Referral Priority Routine Additional Source Comments INFORMATION SOURCE (unrecogn ized section and content) DATE CREATED AUTHOR 05/01/2018 [facility] DATE CREATED AUTHOR AUTHOR'S ORGANIZ ATION 07/16/2018 [facility] DATE CREATED AUTHOR AUTHOR'S ORGANIZ ATION 06/23/2021 [facility] DATE CREATED AUTHOR AUTHOR'S ORGANIZ ATION 10/10/2022 [facility] pital DATE CREATED AUTHOR AUTHOR'S ORGANIZ ATION 03/09/2023 [facility] DATE CREATED AUTHOR AUTHOR'S ORGANIZ ATION 07/12/2023 [facility] DATE CREATED AUTHOR AUTHOR'S ORGANIZ ATION 08/29/[address] [facility] dical Specialists EPIC REASON FOR VISIT (unrecogniz ed section and content) Reason Comments Retinal Injection Care Teams (unrecognized sec tion and content) Corporate Executive Chef Relationship Specialty Start Date End Date Sanya Tineo MD [address] [place] [address] [id number] PCP - General Family Medicine 02/20/23 FOR RECORDS PERTAINING TO PATIENTS WHO ARE [...] BE BASED ON THE PRIMARY CLINICAL RECORDS. [facility] [employer] [facility]. provides no warranty or guarantee of the accuracy or completeness of information in this [id number]
[2023-10-05 13:32] LABS: Albumin Level 3.5 g/dL (3.4-5.0); Anion Gap 15.6; BUN Creatinine Ratio 22.7; Calcium 8.8 mg/dL (8.5-10.1); Carbon Dioxide 21.7 mmol/L (21.0-32.0); Chloride 109 mmol/L (98-107); Estimated GFR (African America 39 (>=60); Estimated GFR (Non-African Ame 33 (>=60); Glucose 168 mg/dL (74-106); Phosphorus 3.8 mg/dL (2.6-4.7); Potassium 4.3 mmol/L (3.5-5.1); Sodium 142 mmol/L (136-145)
== END 2023-10-05 12:16 | disposition home or self-care (01) ==
LOC: LAB 12:17
PROVIDERS: PCP Family Medicine
DX: I13.10 Hypertensive heart and chronic kidney disease without heart failure, with stage 1 through stage 4 chronic kidney disease, or unspecified chronic kidney disease (principal); N18.32 Chronic kidney disease, stage 3b; C50.819 Malignant neoplasm of overlapping sites of unspecified female breast
CPT/HCPCS: 36415; 80069

== ENCOUNTER 2023-11-05 11:19 | Outpatient (OUT) | payer MEDICARE, SELFPAY ==
--- OUTSIDE RECORDS SUMMARY | 2023-11-05 11:32 | XMS_ITS | CCD ---
Author Organization [facility] Care Team Providers Care Head Buyer Tobacco Name Role Phone WALLACE, SADI P Unavailable Unavailable WALLACE, SADI P Unavailable Unavailable PHYSICIAN, DEFAULT Unavailable Unavailable PHYSICIAN, DEFAULT Unavailable Unavailable SANYA TINEO Unavailable Unavailable Sanya Tineo Unavailable DIAMOND HILARIO Consulting Unavailable RIVKA, DR SANYA De La Torre Primary Care Unavailable RIVKA, DR SANYA De La Torre Admitting Unavailable TINEO, DR SANYA De La Torre Attending Unavailable [...] Care Unavailable AKKINA, SHARITA Attending Unavailable HAY ., DR BAUTISTA Consulting Unavailable HAY ., DR BAUTISTA Admitting Unavailable HAY ., DR BAUTISTA Attending Unavailable RIVKA, DR [...] BALBUENA Admitting Unavailable TOÑO BALBUENA Attending Unavailable TOÑO BALBUENA Attending Unavailable PRECIOUS MONREAL Attending Unavailable MOUKARBELTOÑO Referring Unavailable GANGWANI, ANDREA WU Referring Unavailab sal CORALMIKAYLA Lane Attending Unavailable MOUKARBEL, TOÑO Referring Unavailable MOUKARBEL, TOÑO Referring Unavailable BRITTANYDOE Referring Unavailable MOUKARBEL, TOÑO Attending Unavailable MOUKARBEL, TOOÑ Attending Unavailable MOUKARBEL, TOÑO Attending Unavailable TAYLOR PIÑA Attending Unavailable MOUKARBEL, TOÑO Referring Unavailable ALVAREZ, MARGARET Referring Unavailable ALVAREZ, MARGARET Referring Unavailable ALVAREZ, MARGARET Referring Unavailable DINORA, YOUNGSOOK Referring Unavailable TIEN, TU Referring Unavailable TIEN, TU Referring Unavailable GANGWANI, ANDREA WU Referring Unavailab le BRITTANY, DOE Attending Unavailable CORAL, MIKAYLA Referring Unavailable DINORA, SUZI Referring Unavailable BRITTANY, DOE Referring Unavailable DINORA, YOUNGSOOK Referring Unavailable ALVAREZ, MARGARET Referring Unavailable TIEN, TU Referring Unavailable TIEN, TU Admitting Unavailable RAY, JOSR Referring Unavailable HORBEBO TOLEDO Attending Unavailable MICHELE GOLDSMITH Referring Unavailable DINORA, YOUNGSOOK Admitting Unavailable DINORA, YOUNGSOOK Attending Unavailable Sanya Tineo MD Primary Care Provider [phone] DIRK ONEILL Attending Unavailable NIMA, ZOEY Referring Unavailable DIRK ONEILL Attending Unavailable JENNIFER MORALES Attending Unavailable SANYA TINEO Referring Unavailable JENNIFER MORALES Attending Unavailable DIRK ONEILL Attending Unavailable Allergies Allergy Classification Reported Allergen(s) Allergy Type Date of Onset Reaction(s) Facility (2 sources) Meperidine Drug Allergy 06-16-2009 [facility] Repository (12 sources) Meperidine; Translations: [MEPERIDINE] Drug Allergy 09-10-2022 Unknown [facility] Repository (1 source) Meperidine Drug Allergy 02-17-2023 [facility] Repository (1 source) Meperidine Drug Allergy 08-28-2023 [...] more days for 5 May, Active calcitriol 0.72405 mg oral capsule (3 sources) Vitamin D3 [...] the morning cholecalciferol (Vitamin D-3) 50 MCG (1999 UT) capsule Take 2,000 Units by mouth in the morning. 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] Onset: 3 [...] 3 Chronic Other aftercare (1 source) Other fdc (current) drug therapy; Translations: [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 CURRENT DRUG THERAPY] Onset: 3 Episodic Other [...] Reference Range Facility Left eye Ophthalmologic moira tmenton 08-28-2023 [facility] Radiology Study observation (narrative) [facility] Follow-Upon 05-18-2023 Follow-Up [id number] Trisha Parish 1945 F Date Provider Department Center 05/18/2023 TOÑO SIMPSON HILTON [facility] No family history on file Level of Service:40735 HI OFFICE/OUTPATIENT ESTABLISHED LOW MDM 20-29 MIN Reason for Visit and Comments: Post-op TAVR [730] [facility] Office Visiton 04-11-2023 Follow-up visit [id number] Trisha Parish 1945 F Date Provider Department Center 04/11/2023 TOÑO SIMPSON HILTON [facility] No family history on file Level of Service:05699 HI OFFICE/OUTPATIENT ESTABLISHED MOD MDM 30-39 MIN Reason for Visit and Comments: Follow-up [164696] - 1 week F/U [facility] Documentationon 04-05-2023 Documentation [id number] Trisha Parish 1945 Provider Department Ashley 04/05/2023 Karlo-LINA LAMAS HVCVASENDO [facility] No family history on file Reason for Visit and Comments: Post-op [483] [facility] 30on 04-04-2023 30 Daily Case Managemen [...] Score: PT Recommendations: OT Recommendations: New Consults: [facility] 30 The patient is Moder ately [...] and maintained or improved Outcome: Progressing Normal [facility] 30 The patient is Moder ately [...] and maintained or improved Outcome: Progressing Normal [facility] B-TYPE NATRIURETIC PEPTIDEon 04-04-2022 Natriuretic peptide B (Bld) [Mass/Vol] 213 pg/mL High 0-100 [facility] Comment on above: Performed By: #### L [id number] ####[facility] ([facility] [place] [address] BASIC METABOLIC PANELon 03-08 Anion gap [Moles/Vol] 11 mmol/L Normal 7-20 [facility] Comment on above: Performed By: #### L [id number] #### [facility] [address] [place] [address] Calcium [Mass/Vol] 8.7 mg/dL Normal 8.6-10.3 [facility] Comment on above: Performed By: #### L [id number] #### [facility] [address] [place] [address] Chloride [Moles/Vol] 109 mmol/L High 98-107 [facility] Comment on above: Performed By: #### L [id number] #### [facility] [address] [place] [address] CO2 [Moles/Vol] 20 mmol/L Low 21-31 [facility] Comment on above: Performed By: #### L [id number] #### [facility] [address] [place] [address] Creatinine [Mass/Vol] 1.58 mg/dL High 0.60-1.20 [facility] Comment on above: Performed By: #### L [id number] #### [facility] [address] [place] [address] GLOMERULAR FILTRATION RATE ML/MIN/1.73 SQ M.PREDICTED 33.3 mL/min/1.73m*2 Low >60.0 [facility] Comment on above: Result Comment: [facility]???s estimated glomerular filtration rate (eGFR) will [...] group of individuals. Performed By: #### L [id number] #### [facility] [address] [place] [address] Glucose [Mass/Vol] 140 mg/dL High 70-100 [facility] Comment on above: Performed By: #### L [id number] #### [facility] [address] [place] [address] Potassium [Moles/Vol] 4.1 mmol/L Normal 3.5-5.1 [facility] Comment on above: Performed By: #### L [id number] #### [facility] [address] [place] [address] Sodium [Moles/Vol] 136 mmol/L Normal 136-145 [facility] Comment on above: Performed By: #### L [id number] #### [facility] [address] [place] [address] Urea nitrogen [Mass/Vol] 33 mg/dL High 7-25 [facility] Comment on above: Performed By: #### L [id number] #### [facility] [address] [place] [address] UREA NITROGEN/CREATININE (MASS RATIO) IN SER/PLAS 20.9 Normal [facility] Comment on above: Performed By: #### L [id number] #### [facility] [address] [place] [address] Anion gap [Moles/Vol] 13 mmol/L Normal 7-20 [facility] Comment on above: Performed By: #### L [id number] ####[facility] ([facility])[address] [place] [address] Calcium [Mass/Vol] 8.9 mg/dL Normal 8.6-10.3 [facility] Comment on above: Performed By: #### L [id number] ####[facility] ([facility])[address] [place] [address] Chloride [Moles/Vol] 110 mmol/L High 98-107 [facility] Comment on above: Performed By: #### L [id number] ####[facility] ([facility])[address] [place] [address] CO2 [Moles/Vol] 19 mmol/L Low 21-31 [facility] Comment on above: Performed By: #### L [id number] ####[facility] ([facility])[address] [place] [address] Creatinine [Mass/Vol] 1.61 mg/dL High 0.60-1.20 [facility] Comment on above: Performed By: #### L [id number] ####[facility] ([facility])[address] [place] [address] GLOMERULAR FILTRATION RATE ML/MIN/1.73 SQ M.PREDICTED 32.6 mL/min/1.73m*2 Low >60.0 [facility] Comment on above: Result Comment: [facility]???s estimated glomerular filtration rate (eGFR) will [...] of individuals. Performed By: #### L [id number] ####[facility])[address] [facility] [place] [address] Glucose [Mass/Vol] 95 mg/dL Normal 70-100 [facility] Comment on above: Performed By: #### L [id number] ####[facility])[address] [facility] [place] [address] Potassium [Moles/Vol] 4.2 mmol/L Normal 3.5-5.1 [facility] Comment on above: Performed By: #### L [id number] ####[facility])[address] [facility] [place] [address] Sodium [Moles/Vol] 138 mmol/L Normal 136-145 [facility] Comment on above: Performed By: #### L [id number] ####[facility])[address] [facility] [place] [address] Urea nitrogen [Mass/Vol] 34 mg/dL High 7-25 [facility] Comment on above: Performed By: #### L [id number] ####[facility])[address] [facility] [place] [address] UREA NITROGEN/CREATININE (MASS RATIO) IN SER/PLAS 21.1 Normal [facility] Comment on above: Performed By: #### L [id number] ####[facility])[address] [place] [address] CBCon 04-04-2023 Erythrocyte distribution width (RBC) [Ratio] 14.6 % Normal 11.5-15.0 [facility] Comment on above: Performed By: #### L [id number] #### [facility] ([facility]) [address] [place] [address] ERYTHROCYTE MEAN CORPUSCULAR HEMOGLOBIN CONCENTRATION (G/DL) BY AUTOMATED 32.8 g/dL Normal 32.0-35.0 [facility] Comment on above: Performed By: #### L [id number] #### [facility] [address] [place] [address] Hematocrit (Bld) [Volume fraction] 30.8 % Low 36.0-48.0 [facility] Comment on above: Performed By: #### L [id number] #### [facility] [address] [place] [address] Hemoglobin (Bld) [Mass/Vol] 10.1 g/dL Low 12.0-15.0 [facility] Comment on above: Performed By: #### L [id number] #### [facility] [address] [place] [address] MCH (RBC) [Entitic mass] 29.3 pg Normal 27.0-33.0 [facility] Comment on above: Performed By: #### L [id number] #### [facility] [address] [place] [address] MCV (RBC) [Entitic vol] 89.3 fL Normal 82.0-98.0 [facility] Comment on above: Performed By: #### L [id number] #### [facility] [address] [place] [address] PLATELETS (10*3/UL) IN BLOOD AUTOMATED COUNT 126 10*3/uL Low 150-400 [facility] Comment on above: Performed By: #### L [id number] #### [facility] [address] [place] [address] RBC (Bld) [#/Vol] 3.45 10*6/uL Low 3.80-5.00 [facility] Comment on above: Performed By: #### L [id number] #### [facility]) [address] [place] [address] WBC (Bld) [#/Vol] 5.60 10*3/uL Normal 4.00-10.60 [facility] Comment on above: Performed By: #### L [id number] #### [facility]) [address] [place] [address] DSon 04-04-2023 DS ----- ----- Attestation signed [...] Medications These medications were sent to [facility] [place] [address] [place] [address] [place] [address], [facility] [address] acetaminophen 325 mg tablet aspirin 81 mg [...] direct detection a (more content not included)... [facility] NURSNOTEon 04-04-2023 NURSNOTE Pt discharged home w ith by car [facility] 04-03-2023 30 The patient is Moder [...] monitored and maintained or improved Outcome: Progressing [facility] 04-03-2023 HP H&P reviewed. The jordon mendez [...] she is brought today for the procedure. Normal [facility] MRSA/MSSA DNA NASALon 2022 MRSA DNA Negative Normal Negative [facility] Comment on above: Order Comment: Testi [...] preclude nasal colonization. Performed By: #### L [id number] ####[facility])[address] [place] [address] MSSA DNA Negative Normal Negative [facility] Comment on above: Order Comment: Testi [...] preclude nasal colonization. Performed By: #### L [id number] ####[facility] [place] [address] NURSNOTEon 04-03-2023 NURSNOTE Report called to Kameron hay RN. He denies questions/concerns. Normal [facility] TYPE AND SCREENon 04-03-2023 AB SCREEN Negative Normal [facility] Comment on above: Performed By: #### L [id number] #### [facility] [address] [place] [address] ABO group Nom (Bld) B Normal [facility] Comment on above: Performed By: #### L [id number] #### [facility]) [address] [place] [address] RH TYPE IN BLOOD Positive Normal [facility] Comment on above: Performed By: #### L [id number] #### [facility]) [address] [place] [address] Orders Onlyon 03-22-2023 Orders Only [id number] Trisha Parish 1945 F Date Provider Department Center 03/22/2023 MARGARET COLLINS [facility] No family history on file Normal [facility] HPon 2023 HP ME Cardiology - [facility] Subjective Trisha Parish is [...] In September 2022 she was admitted to [facility] with weakness. She was found to have [...] carvedilol (Co (more content not included)... Normal [facility] Office Visiton 2023 Follow-up visit [id number] Trisha Parish E 1945 F Date Provider Department Center 2023 Carla-TOÑO BALBUENA [facility] No family history on file Level of Service:99846 HI OFFICE/OUTPATIENT ESTABLISHED HIGH MDM 40-54 MIN [facility] ANEDale 02-23-2023 ANES ----- ----- Attestation signed by [...] 02/23/23 1030 Procedure: TRANSESOPHAGEAL ECHO (ELENA) Location: [facility] Vascular Lab Clinical [...] to blood products. Additional Equipment Requests Normal [facility] HPon 02-23-2023 ----- ----- Attestation signed [...] there are no changes to the H&P. [facility] NURSNOTEon 02-23-2023 NURSNOTE Pt performed and pas sed bedside swallow study test. RN educated pt on d/c instructions. RN encouraged pt to voice any questions or concerns. Pt verbalizes no questions or concerns at this time. Pt was wheeled off of unit with all of belongings. [facility] HPon 02-21-2023 Cardiology Clinic No te [...] Never Update: 02/21/2023 She was hospitalized at [facility] for 3 days after presenting with [...] other elevated She was hospitalized 02/04-02/07/23 at [facility] and underwent coronary angiography and right heart [...] by mouth 4 (four) times a week. Sun,Tu,Wed,Fri, Disp: , Rfl: NIFEdipine CC (Adalat CC) [...] 6.44 02/06 (more content not included)... Normal [facility] Office Visiton 02-21-2023 Follow-up visit [id number] Trisha Praish 1945 F Date Provider Department Center 02/21/2023 [id number] PIÑA CARD [facility] No family history on file Level of Service:21716 HI OFFICE/OUTPATIENT ESTABLISHED MOD MDM 30-39 MIN Reason for Visit and Comments: Follow-up [833971] - Pt discharge from hospital 02/20/23 for high potassium , dizziness [facility] Basic Metabolic Panelon - Anion gap [Moles/Vol] 10.7 mmol/L Normal 6.0-15.0 [facility] Comment on above: Performed By: #### B MP ####[facility] [place] [address] [facility] Calcium [Mass/Vol] 8.4 mg/dL Low 8.6-10.3 [facility] Comment on above: Performed By: #### B MP ####[place] [address] [place] [id number] [facility] Chloride [Moles/Vol] 109 mmol/L High 98-107 [facility] Comment on above: Performed By: #### B MP ####[place] [address] [place] [id number] [facility] CO2 [Moles/Vol] 22.7 mmol/L Normal 21.0-31.[address] [facility] Comment on above: Performed By: #### B MP ####[place] [address] [place] [id number] [facility] Creatinine [Mass/Vol] 1.68 mg/dL High 0.60-1.20 [facility] Comment on above: Performed By: #### B MP ####[place] [id number] [facility] Creatinine Clr Calc Pharmacy 24.22 Normal [facility] Comment on above: Result Comment: PERF ORMED BY: [facility] [address] [place] [id number] PATHOLOGIST GRAVITY FLOW IRRIGATOR MELISSA QUINN M.D. Performed By: #### B MP ####[place] [id number] [facility] GFR/1.73 sq M.predicted MDRD (S/P/Bld) [Vol rate/Area] 31.134 mL/min/{1.73_m2} Normal [facility] Comment on above: Performed By: #### B MP ####[place] [id number] [facility] Glucose [Mass/Vol] 94 mg/dL Normal 70-100 [facility] Comment on above: Result Comment: [place] Glucose Reference Range is dependent on time and content of last meal. Glucose of more than 200 mg/dL in a nonstressed, ambulatory subject supports the diagnosis of Diabetes Mellitus. ADA recommended reference range Performed By: #### B MP ####[facility] [id number] [place] [address] [facility] Potassium [Moles/Vol] 4.4 mmol/L Normal 3.5-5.1 [facility] Comment on above: Performed By: #### B MP ####[facility] [place] [address] [facility] Sodium [Moles/Vol] 138 mmol/L Normal 136-145 [facility] Comment on above: Performed By: #### B MP ####[facility] [address] [place] [address] [facility] Urea nitrogen [Mass/Vol] 34 mg/dL High 7-25 [facility] Comment on above: Performed By: #### B MP ####[facility] [place] [id number] [facility] Glucose Poct Glucometerson 0 02-20-2023 Glucose [Mass/Vol] 92 mg/dL Normal [facility] Comment on above: Result Comment: [facility] Glucose Reference Range is dependent on time and content of last meal. Glucose of more than 200 mg/dL in a nonstressed, ambulatory subject supports the diagnosis of Diabetes Mellitus. PERFORMED BY: [place] [address] PATHOLOGIST GRAVITY FLOW IRRIGATOR MELISSA QUINN M.D. Performed By: #### G LORENZO ####Point of Care testing, Basic Metabolic Panelon 07- Anion gap [Moles/Vol] 9.8 mmol/L Normal 6.0-15.0 [facility] Comment on above: Performed By: #### B MP #### [facility] [address] [place] [id number] [place] Calcium [Mass/Vol] 8.4 mg/dL Low 8.6-10.3 [facility] Comment on above: Performed By: #### B MP #### [facility] [address] [place] [id number] [place] Chloride [Moles/Vol] 108 mmol/L High 98-107 [facility] Comment on above: Performed By: #### B MP #### [facility] [address] CO2 [Moles/Vol] 25.3 mmol/L Normal 21.0-31.[address] [facility] Comment on above: Performed By: #### B MP #### [facility] [address] Creatinine [Mass/Vol] 1.62 mg/dL High 0.60-1.20 [facility] Comment on above: Performed By: #### B MP #### [facility] [address] [place] [address] [place] Creatinine Clr Calc Pharmacy 25.11 Normal [facility] Comment on above: Result Comment: PERF ORMED BY: [place] [address] PATHOLOGIST GRAVITY FLOW IRRIGATOR MELISSA QUINN M.D. Performed By: #### B MP #### [address] GFR/1.73 sq M.predicted MDRD (S/P/Bld) [Vol rate/Area] 32.523 mL/min/{1.73_m2} Normal [facility] Comment on above: Performed By: #### B MP #### [address] Glucose [Mass/Vol] 91 mg/dL Normal 70-100 [facility] Comment on above: Result Comment: [place] Glucose Reference Range is dependent on time and content of last meal. Glucose of more than 200 mg/dL in a nonstressed, ambulatory subject supports the diagnosis of Diabetes Mellitus. ADA recommended reference range Performed By: #### B MP #### [place] [address] [place] Potassium [Moles/Vol] 4.1 mmol/L Normal 3.5-5.1 [facility] Comment on above: Performed By: #### B MP #### [place] [address] [place] Sodium [Moles/Vol] 139 mmol/L Normal 136-145 [facility] Comment on above: Performed By: #### B MP #### [facility] [address] [place] [address] [place] Urea nitrogen [Mass/Vol] 34 mg/dL High 02-27 [facility] Comment on above: Performed By: #### B MP #### [facility] [address] [place] [address] [place] Glucose Poct Glucometerson 0 02-19-2023 Glucose [Mass/Vol] 143 mg/dL Normal [facility] Comment on above: Result Comment: [place] om Glucose Reference Range is dependent on time and content of last meal. Glucose of more than 200 mg/dL in a nonstressed, ambulatory subject supports the diagnosis of Diabetes Mellitus. PERFORMED BY: [place] [address] PATHOLOGIST GRAVITY FLOW IRRIGATOR MELISSA QUINN M.D. Performed By: #### G LULS #### Point of Care testing , Glucose [Mass/Vol] 101 mg/dL Normal [facility] Comment on above: Result Comment: [place] Glucose Reference Range is dependent on time and content of last meal. Glucose of more than 200 mg/dL in a nonstressed, ambulatory subject supports the diagnosis of Diabetes Mellitus. PERFORMED BY: [place] [address] PATHOLOGIST GRAVITY FLOW IRRIGATOR MELISSA QUINN M.D. Performed By: #### G LULS #### Point of Care testing , US renal BIon 02-19-2023 US renal BI [facility] Main [place] [address] [place] [address] Ultrasound Report Signed Patient: Trisha Parish MR#: [id number] : 1945 Acct:[id number] Age/Sex: 77 / F ADM Date: 02/17/23 Loc: Room: [address] [place] [address] Type: ADM IN Attending Dr: Mikel Mir MD Ordering Provider: Mikel Mir MD Date of Service: 02/19/23 US/US renal BI: JASMIN r/o [place] or obstruction Copies to: Mikel Mir MD [...] Quintanilla Jr., D.O.02/19/2023 3:58 PM Dictation Location: [place] [address] Tech: Jenna Corado Transcribed By: [facility] 02/19/23 155 Dictated By: Baldo Quintanilla Jr, DO 02/19/23 155 Signed By: 02/19/231557 Normal [facility] Coagulation Profileon 2022 aPTT Coag (Bld) [Time] 31.5 s Normal 25.1-36.5 [facility] Comment on above: Result Comment: PERF ORMED BY: [facility] [address] [facility] [place] [address] PATHOLOGIST GRAVITY FLOW IRRIGATOR MELISSA QUINN M.D. Performed By: #### C MP, MG, PP, CBCNO ####[place] [address] [place] [id number] [facility] INR Coag (PPP) [Relative time] 1.3 {INR} Normal [facility] Comment on above: Result [...] By: #### C MP, MG, PP, CBCNO ####[facility] [id number] [place] [id number] [facility] PT Coag (PPP) [Time] 15.2 s High 9.0-12.9 [facility] Comment on above: Performed By: #### C MP, MG, PP, CBCNO ####[place] [address] [place] [address] [facility] Comprehensive Metabolic Pane otto 02-18-2023 Albumin [Mass/Vol] 3.5 g/dL Normal 3.5-5.7 [facility] Comment on above: Performed By: #### C MP, MG, PP, CBCNO ####[address] Albumin/Globulin [Mass ratio] 1.3 {ratio} Normal [facility] Comment on above: Performed By: #### C MP, MG, PP, CBCNO ####[address] ALP [Catalytic activity/Vol] 83 U/L Normal 34-104 [facility] Comment on above: Performed By: #### C MP, MG, PP, CBCNO ####[address] ALT [Catalytic activity/Vol] 13 U/L Normal 7-52 [facility] Comment on above: Performed By: #### C MP, MG, PP, CBCNO ####[address] Anion gap [Moles/Vol] 11.0 mmol/L Normal 6.0-15.0 [facility] Comment on above: Performed By: #### C MP, MG, PP, CBCNO ####[address] AST [Catalytic activity/Vol] 16 U/L Normal 13-39 [facility] Comment on above: Performed By: #### C MP, MG, PP, CBCNO ####[address] Bilirubin [Mass/Vol] 0.7 mg/dL Normal 0.3-1.0 [facility] Comment on above: Performed By: #### C MP, MG, PP, CBCNO ####[address] Calcium [Mass/Vol] 8.4 mg/dL Low 8.6-10.3 [facility] Comment on above: Performed By: #### C MP, MG, PP, CBCNO ####[place] [address] [place] [id number] [facility] Chloride [Moles/Vol] 108 mmol/L High 98-107 [facility] Comment on above: Performed By: #### C MP, MG, PP, CBCNO ####[place] [id number] [facility] CO2 [Moles/Vol] 24.4 mmol/L Normal 21.0-31.[address] [facility] Comment on above: Performed By: #### C MP, MG, PP, CBCNO ####[place] [id number] [facility] Creatinine [Mass/Vol] 1.91 mg/dL High 0.60-1.20 [facility] Comment on above: Performed By: #### C MP, MG, PP, CBCNO ####[address] Creatinine Clr Calc Pharmacy 21.30 [facility] Comment on above: Performed By: #### C MP, MG, PP, CBCNO ####[place] [id number] [facility] GFR/1.73 sq M.predicted MDRD (S/P/Bld) [Vol rate/Area] 26.691 mL/min/{1.73_m2} [facility] Comment on above: Performed By: #### C MP, MG, PP, CBCNO ####[place] [id number] [facility] Globulin (S) [Mass/Vol] 2.7 g/dL [facility] Comment on above: Performed By: #### C MP, MG, PP, CBCNO ####[place] [id number] [facility] Glucose [Mass/Vol] 92 mg/dL Normal 70-100 [facility] Comment on above: Result Comment: [place] om Glucose Reference Range is dependent on time and content of last meal. Glucose of more than 200 mg/dL in a nonstressed, ambulatory subject supports the diagnosis of Diabetes Mellitus. ADA recommended reference range Performed By: #### C MP, MG, PP, CBCNO ####[facility] [id number] Potassium [Moles/Vol] 4.4 mmol/L Normal 3.5-5.1 [facility] Comment on above: Performed By: #### C MP, MG, PP, CBCNO ####[place] [id number] Protein [Mass/Vol] 6.2 g/dL Low 6.4-8.9 [facility] Comment on above: Performed By: #### C MP, MG, PP, CBCNO ####[address] Sodium [Moles/Vol] 139 mmol/L Normal 136-145 [facility] Comment on above: Performed By: #### C MP, MG, PP, CBCNO ####[place] [id number] Urea nitrogen [Mass/Vol] 35 mg/dL High 7-25 [facility] Comment on above: Performed By: #### C MP, MG, PP, CBCNO ####[place] [id number] Dipstick and Microscopicon 0 02-18-2023 Appearance (U) Clear Normal Clear [facility] Comment on above: Order Comment: Name Collection Type:: Clean-Voided Midstream Performed By: #### A DDONUAPLUS, CUU #### [facility] [address] [place] [address] [place] Bacteria,Urine None Seen Normal None Seen [facility] Comment on above: Order Comment: Name Collection Type:: Clean-Voided Midstream Performed By: #### A DDONUAPLUS, CUU #### [facility] [address] [place] [address] [place] Bilirubin,Urine Negative Normal Negative [facility] Comment on above: Order Comment: Name Collection Type:: Clean-Voided Midstream Performed By: #### A DDONUAPLUS, CUU #### [facility] [address] [place] [address] [place] Color (U) Yellow Normal Yellow [facility] Comment on above: Order Comment: Name Collection Type:: Clean-Voided Midstream Performed By: #### A DDONUAPLUS, CUU #### [address] Glucose Ql (U) Normal Normal Normal [facility] Comment on above: Order Comment: Name Collection Type:: Clean-Voided Midstream Performed By: #### A DDONUAPLUS, CUU #### [address] Hyaline Casts,Urine None Seen Normal 0-8 [facility] Comment on above: Order Comment: Name Collection Type:: Clean-Voided Midstream Result Comment: PERF ORMED BY: [place] [address] PATHOLOGIST GRAVITY FLOW IRRIGATOR MELISSA QUINN M.D. Performed By: #### A DDONUAPLUS, CUU #### [address] Ketones Ql (U) Negative Normal Negative [facility] Comment on above: Order Comment: Name Collection Type:: Clean-Voided Midstream Performed By: #### A DDONUAPLUS, CUU #### [address] Leukocyte esterase Test strip Ql (U) 3+ High Negative [facility] Comment on above: Order Comment: Name Collection Type:: Clean-Voided Midstream Performed By: #### A DDONUAPLUS, CUU #### [place] [address] [place] Nitrite,Urine Negative Normal Negative [facility] Comment on above: Order Comment: Name Collection Type:: Clean-Voided Midstream Performed By: #### A DDONUAPLUS, CUU #### [address] Occult Blood,Urine Negative Normal Negative [facility] Comment on above: Order Comment: Name Collection Type:: Clean-Voided Midstream Result Comment: PERF ORMED BY: [place] [address] PATHOLOGIST GRAVITY FLOW IRRIGATOR MELISSA QUINN M.D. Performed By: #### A DDONUAPLUS, CUU #### [address] pH (U) 7.5 [pH] Normal 5.0-9.0 [facility] Comment on above: Order Comment: Name Collection Type:: Clean-Voided Midstream Performed By: #### A DDONUAPLUS, CUU #### [address] Protein,Urine Negative Normal Negative [facility] Comment on above: Order Comment: Name Collection Type:: Clean-Voided Midstream Performed By: #### A DDONUAPLUS, CUU #### [address] RBC LM.HPF (Urine sed) [#/Area] 0 /[HPF] Normal 0-4 [facility] Comment on above: Order Comment: Name Collection Type:: Clean-Voided Midstream Performed By: #### A DDONUAPLUS, CUU #### [address] Specificy [place],Urine 1.006 Normal 1.001-1.030 [facility] Comment on above: Order Comment: Name Collection Type:: Clean-Voided Midstream Performed By: #### A DDONUAPLUS, CUU #### [place] [address] [place] Squamous Epithelial Cell,Urine None Seen Normal 0-2 [facility] Comment on above: Order Comment: Name Collection Type:: Clean-Voided Midstream Performed By: #### A DDONUAPLUS, CUU #### [address] Urobilinogen,Urine Normal Normal Normal [facility] Comment on above: Order Comment: Name Collection Type:: Clean-Voided Midstream Performed By: #### A DDONUAPLUS, CUU #### [facility] [address] WBC,Urine 5-9 High 0-4 [facility] Comment on above: Order Comment: Name Collection Type:: Clean-Voided Midstream Performed By: #### A DDONUAPLUS, CUU #### [facility] [address] [place] [address] ECG 12 lead ECGon 02-18-2023 ECG 12 lead ECG [facility] Main [place] [address] [place] [address] Electrocardiograph Report Signed Patient: Trisha Parish MR#: [id number] : 1945 Acct:[id number] Age/Sex: 77 / F ADM Date: 02/17/23 Loc: Room: [address] [place] [address] Type: ADM IN Attending Dr: Kevin Mejia [...] Nessa Abdi MD 0 02/18/23 1047 Normal [facility] Glucose Poct Glucometerson 0 02-18-2023 Glucose [Mass/Vol] 94 mg/dL Normal [facility] Comment on above: Result Comment: [place] Glucose Reference Range is dependent on time and content of last meal. Glucose of more than 200 mg/dL in a nonstressed, ambulatory subject supports the diagnosis of Diabetes Mellitus. PERFORMED BY: [facility] [address] [place] [address] PATHOLOGIST GRAVITY FLOW IRRIGATOR MELISSA QUINN M.D. Performed By: #### G LULS #### Point of Care testing , Glucose [Mass/Vol] 194 mg/dL Normal [facility] Comment on above: Result Comment: [facility] Glucose Reference Range is dependent on time and content of last meal. Glucose of more than 200 mg/dL in a nonstressed, ambulatory subject supports the diagnosis of Diabetes Mellitus. PERFORMED BY: [place] [address] PATHOLOGIST GRAVITY FLOW IRRIGATOR MELISSA QUINN M.D. Performed By: #### G LULS #### Point of Care testing , Hemogram CBC Without Diffon 02-18-2023 Erythrocyte distribution width (RBC) [Ratio] 14.4 % Normal 11.9-15.3 [facility] Comment on above: Performed By: #### C MP, MG, PP, CBCNO #### [facility] [address] [place] [address] Hematocrit (Bld) [Volume fraction] 32.7 % Low 34.0-46.4 [facility] Comment on above: Performed By: #### C MP, MG, PP, CBCNO #### [facility] [address] [place] [address] [place] Hemoglobin (Bld) [Mass/Vol] 10.8 g/dL Low 11.8-15.4 [facility] Comment on above: Performed By: #### C MP, MG, PP, CBCNO #### [facility] [address] [place] [address] [place] MCH (RBC) [Entitic mass] 28.8 pg Normal 24.7-34.3 [facility] Comment on above: Performed By: #### C MP, MG, PP, CBCNO #### [facility] [address] [place] [address] [place] MCV (RBC) [Entitic vol] 87.0 fL Normal 80-100 [facility] Comment on above: Performed By: #### C MP, MG, PP, CBCNO #### [address] Mean Corpuscular HGB Conc 33.1 g/dL Normal 32.0-35.0 [facility] Comment on above: Performed By: #### C MP, MG, PP, CBCNO #### [address] Platelet mean volume (Bld) [Entitic vol] 10.2 fL Normal 6.3-10.7 [facility] Comment on above: Result Comment: PERF ORMED BY: [place] [address] PATHOLOGIST GRAVITY FLOW IRRIGATOR MELISSA QUINN M.D. Performed By: #### C MP, MG, PP, CBCNO #### [address] Platelets (Bld) [#/Vol] 185 10*3/uL Normal 150-450 [facility] Comment on above: Performed By: #### C MP, MG, PP, CBCNO #### [address] RBC (Bld) [#/Vol] 3.76 10*6/uL Normal 3.60-5.00 [facility] Comment on above: Performed By: #### C MP, MG, PP, CBCNO #### [address] WBC (Bld) [#/Vol] 7.2 10*3/uL Normal 3.8-11.6 [facility] Comment on above: Performed By: #### C MP, MG, PP, CBCNO #### [address] Magnesiumon 02-18-2023 Magnesium [Mass/Vol] 1.9 mg/dL Normal 1.9-2.7 [facility] Comment on above: Result Comment: PERF ORMED BY: [place] [address] PATHOLOGIST GRAVITY FLOW IRRIGATOR MELISSA QUINN M.D. Performed By: #### C MP, MG, PP, CBCNO ####[facility] [id number] Troponin I High Sensitivityo n 02-18-2023 Troponin I High Sensitivity 55.0 pg/mL Off scale high 0.0-15.0 [facility] Comment on above: Result Comment: Crit ical Result : Called to and read back by: ROYAL DAILY at: 02/18/2023 07:39:39 by:[id number] PERFORMED BY: [place] [address] PATHOLOGIST GRAVITY FLOW IRRIGATOR MELISSA QUINN M.D. Performed By: #### H S TROP #### [facility] [address] [place] [address] Urine Cultureon 02-18-2023 Bacteria identified Cx Nom (U) >100,000 colonies/ml mixed bacterial skin contaminants 2 Days PERFORMED BY: [place] [address] PATHOLOGIST GRAVITY FLOW IRRIGATOR MELISSA QUINN M.D. Normal [facility] Comment on above: Performed By: #### A DDONUAPLUS, CUU #### [place] [id number] [facility] Telephoneon 02-16-2023 Telephone [id number] Trisha Parish 1945 F Date Provider Department Center 02/16/2023 WILY ASHLEY [facility] No family history on file Normal [facility] Orders Onlyon 02-09-2023 Orders Only [id number] Trisha Parish 1945 F Date Provider Department [place] 02/09/2023 MARGARET COLLINS [facility] No family history on file Normal [facility] 30on 02-07-2023 30 The patient is Moder ately Stable - Low risk of patient condition declining or worsening The patient's goals for the shift include comfort The clinical goals for the shift include VSS Over the shift, the patient did not make progress toward the following goals. Barriers to progression include . Recommendations to address these barriers include . Normal [facility] 30 The patient is Moder ately Stable - Low risk of patient condition declining or worsening The patient's goals for the shift include comfort, rest The clinical goals for the shift include stable Over the shift, the patient did not make progress toward the following goals. Barriers to progression include . Recommendations to address these barriers include . Normal [facility] BASIC METABOLIC PANELon 07-0 Anion gap [Moles/Vol] 10 mmol/L Normal 7-20 [facility] Comment on above: Performed By: #### L [id number] ####[facility] ([facility])[address] [place] [address] Calcium [Mass/Vol] 8.6 mg/dL Normal 8.6-10.3 [facility] Comment on above: Performed By: #### L [id number] ####[facility] ([facility])[address] [facility] [place] [address] Chloride [Moles/Vol] 109 mmol/L High 98-107 [facility] Comment on above: Performed By: #### L [id number] ####[facility] ([facility])[address] [facility] [place] [address] CO2 [Moles/Vol] 25 mmol/L Normal 21- [facility] Comment on above: Performed By: #### L [id number] ####[facility] ([facility])[address] [facility] [place] [address] Creatinine [Mass/Vol] 1.40 mg/dL High 0.60-1.20 [facility] Comment on above: Performed By: #### L [id number] ####[facility] ([facility])[address] [place] [address] GLOMERULAR FILTRATION RATE ML/MIN/1.73 SQ M.PREDICTED 38.7 mL/min/1.73m*2 Low >60.0 [facility] Comment on above: Result Comment: [facility]???s estimated glomerular filtration rate (eGFR) will [...] of individuals. Performed By: #### L [id number] ####[facility] ([facility])[address] [place] [address] Glucose [Mass/Vol] 115 mg/dL High 70-100 [facility] Comment on above: Performed By: #### L [id number] ####[facility] ([facility])[address] [place] [address] Potassium [Moles/Vol] 3.9 mmol/L Normal 3.5-5.1 [facility] Comment on above: Performed By: #### L [id number] ####[facility] ([facility])[address] [place] [address] Sodium [Moles/Vol] 140 mmol/L Normal 136-145 [facility] Comment on above: Performed By: #### L [id number] ####[facility] ([facility])[address] [place] [address] Urea nitrogen [Mass/Vol] 32 mg/dL High 7-25 [facility] Comment on above: Performed By: #### L [id number] ####[facility] ([facility])[address] [place] [address] UREA NITROGEN/CREATININE (MASS RATIO) IN SER/PLAS 22.9 Normal [facility] Comment on above: Performed By: #### L [id number] ####[facility] ([facility])[address] [place] [address] MAGNESIUMon 02-07-2023 Magnesium [Mass/Vol] 2.0 mg/dL Normal 1.9-2.7 [facility] Comment on above: Performed By: #### L [id number] #### [facility] [address] [place] [address] BASIC METABOLIC PANELon 07-0 Anion gap [Moles/Vol] 10 mmol/L Normal 7-20 [facility] Comment on above: Performed By: #### L [id number] #### [facility] ([facility]) [address] [place] [address] Calcium [Mass/Vol] 8.6 mg/dL Normal 8.6-10.3 [facility] Comment on above: Performed By: #### L [id number] #### [facility] [address] [place] [address] Chloride [Moles/Vol] 109 mmol/L High 98-107 [facility] Comment on above: Performed By: #### L [id number] #### [facility] [address] [place] [address] CO2 [Moles/Vol] 25 mmol/L Normal 21-31 [facility] Comment on above: Performed By: #### L [id number] #### [facility] ([facility] [address] [place] [address] Creatinine [Mass/Vol] 1.32 mg/dL High 0.60-1.20 [facility] Comment on above: Performed By: #### L [id number] #### [facility] ([facility]) [address] [place] [address] GLOMERULAR FILTRATION RATE ML/MIN/1.73 SQ M.PREDICTED 41.6 mL/min/1.73m*2 Low >60.0 [facility] Comment on above: Result Comment: [facility]???s estimated glomerular filtration rate (eGFR) will [...] group of individuals. Performed By: #### L [id number] #### [facility] ([facility] [address] [place] [address] Glucose [Mass/Vol] 142 mg/dL High 70-100 [facility] Comment on above: Performed By: #### L [id number] #### [facility] ([facility] [address] [place] [address] Potassium [Moles/Vol] 3.8 mmol/L Normal 3.5-5.1 [facility] Comment on above: Performed By: #### L [id number] #### [facility] ([facility] [address] [place] [address] Sodium [Moles/Vol] 140 mmol/L Normal 136-145 [facility] Comment on above: Performed By: #### L [id number] #### [facility] ([facility] [address] [place] [address] Urea nitrogen [Mass/Vol] 31 mg/dL High 7-25 [facility] Comment on above: Performed By: #### L [id number] #### [facility] [address] [place] [address] UREA NITROGEN/CREATININE (MASS RATIO) IN SER/PLAS 23.5 Normal [facility] Comment on above: Performed By: #### L [id number] #### [facility] ([facility]) [address] [place] [address] CBCon 02-06-2023 Erythrocyte distribution width (RBC) [Ratio] 14.1 % Normal 11.5-15.0 [facility] Comment on above: Performed By: #### L [id number] #### [facility] ([facility] [address] [facility] [place] [address] ERYTHROCYTE MEAN CORPUSCULAR HEMOGLOBIN CONCENTRATION (G/DL) BY AUTOMATED 33.6 g/dL Normal 32.0-35.0 [facility] Comment on above: Performed By: #### L [id number] #### [facility] ([facility]) [address] [place] [address] Hematocrit (Bld) [Volume fraction] 33.3 % Low 36.0-48.0 [facility] Comment on above: Performed By: #### L [id number] #### [facility] ([facility] [address] [place] [address] Hemoglobin (Bld) [Mass/Vol] 11.2 g/dL Low 12.0-15.0 [facility] Comment on above: Performed By: #### L [id number] #### [facility] ([facility] [address] [place] [address] MCH (RBC) [Entitic mass] 29.3 pg Normal 27.0-33.0 [facility] Comment on above: Performed By: #### L [id number] #### [facility] ([facility] [address] [place] [address] MCV (RBC) [Entitic vol] 87.2 fL Normal 82.0-98.0 [facility] Comment on above: Performed By: #### L [id number] #### [facility] ([facility] [address] [place] [address] PLATELETS (10*3/UL) IN BLOOD AUTOMATED COUNT 152 10*3/uL Normal 150-400 [facility] Comment on above: Performed By: #### L [id number] #### [facility] [address] [place] [address] RBC (Bld) [#/Vol] 3.82 10*6/uL Normal 3.80-5.00 [facility] Comment on above: Performed By: #### L [id number] #### [facility] ([facility] [address] [place] [address] WBC (Bld) [#/Vol] 6.44 10*3/uL Normal 4.00-10.60 [facility] Comment on above: Performed By: #### L [id number] #### [facility] ([facility]) [address] [place] [address] CONSULTon 02-06-2023 CONSULT Inpatient consult to Cardiothoracic [...] per patient for which she saw her otolaryngology teacher Dr. Soto- medications were adjusted and pacemaker [...] is not (more content not included)... Normal [facility] MAGNESIUMon 02-06-2023 Magnesium [Mass/Vol] 1.7 mg/dL Low 1.9-2.7 [facility] Comment on above: Performed By: #### L [id number] #### [facility] ([facility]) [address] [place] [address] 30on 02-05-2023 30 The patient is Moder [...] and maintained or improved Outcome: Progressing Normal [facility] 30 Daily Case Managemen t Update [...] PT Recommendations: OT Recommendations: New Consults: Normal [facility] 30 Problem: Pain - Adul t [...] Flowsheets (Taken 02/05/2023745) Free from fall injury: [place] fall precautions as indicated by assessment Educate [...] goals for the shift include vss Normal [facility] 30 The patient is Moder ately Stable - Low risk of patient condition declining or worsening The patient's goals for the shift include comfort The clinical goals for the shift include vss Normal [facility] BASIC METABOLIC PANELon 07-0 Anion gap [Moles/Vol] 12 mmol/L Normal - [facility] Comment on above: Performed By: #### L [id number] #### [facility] ([facility]) [address] [place] [address] Calcium [Mass/Vol] 8.8 mg/dL Normal 8.6-10.3 [facility] Comment on above: Performed By: #### L [id number] #### [facility] ([facility]) [address] [place] [address] Chloride [Moles/Vol] 107 mmol/L Normal 98-107 [facility] Comment on above: Performed By: #### L [id number] #### [facility] ([facility]) [address] [place] [address] CO2 [Moles/Vol] 25 mmol/L Normal 21-31 [facility] Comment on above: Performed By: #### L [id number] #### [facility] ([facility]) [address] [place] [address] Creatinine [Mass/Vol] 1.18 mg/dL Normal 0.60-1.20 [facility] Comment on above: Performed By: #### L [id number] #### [facility] ([facility]) [address] [place] [address] GLOMERULAR FILTRATION RATE ML/MIN/1.73 SQ M.PREDICTED 47.6 mL/min/1.73m*2 Low >60.0 [facility] Comment on above: Result Comment: [facility]???s estimated glomerular filtration rate (eGFR) will [...] individuals. Performed By: #### L [id number] #### [facility] ([facility]) [address] [place] [address] Glucose [Mass/Vol] 99 mg/dL Normal 70-100 [facility] Comment on above: Performed By: #### L [id number] #### [facility] ([facility]) [address] [place] [address] Potassium [Moles/Vol] 3.8 mmol/L Normal 3.5-5.1 [facility] [facility] Comment on above: Performed By: #### L [id number] #### [facility] ([facility]) [address] [place] [address] Sodium [Moles/Vol] 140 mmol/L Normal 136-145 [facility] Comment on above: Performed By: #### L [id number] #### [facility] ([facility]) [address] [place] [address] Urea nitrogen [Mass/Vol] 28 mg/dL High 7-25 [facility] Comment on above: Performed By: #### L [id number] #### [facility] ([facility] [address] [place] [address] UREA NITROGEN/CREATININE (MASS RATIO) IN SER/PLAS 23.7 Normal [facility] Comment on above: Performed By: #### L [id number] #### [facility] ([facility]) [address] [place] [address] Anion gap [Moles/Vol] 12 mmol/L Normal 7-20 [facility] Comment on above: Performed By: #### L [id number] #### [facility] ([facility]) [address] [place] [address] Calcium [Mass/Vol] 9.0 mg/dL Normal 8.6-10.3 [facility] Comment on above: Performed By: #### L [id number] #### [facility] [address] [place] [address] Chloride [Moles/Vol] 107 mmol/L Normal 98-107 [facility] Comment on above: Performed By: #### L [id number] #### [facility] [address] [place] [address] CO2 [Moles/Vol] 23 mmol/L Normal 21-31 [facility] Comment on above: Performed By: #### L [id number] #### [facility] [address] [place] [address] Creatinine [Mass/Vol] 1.12 mg/dL Normal 0.60-1.20 [facility] Comment on above: Performed By: #### L [id number] #### [facility] ([facility]) [address] [place] [address] GLOMERULAR FILTRATION RATE ML/MIN/1.73 SQ M.PREDICTED 50.6 mL/min/1.73m*2 Low >60.0 [facility] Comment on above: Result Comment: [facility]???s estimated glomerular filtration rate (eGFR) will [...] individuals. Performed By: #### L [id number] #### [facility] ([facility]) [address] [place] [address] Glucose [Mass/Vol] 121 mg/dL High 70-100 [facility] Comment on above: Performed By: #### L [id number] #### [facility] ([facility]) [address] [place] [address] Potassium [Moles/Vol] 3.8 mmol/L Normal 3.5-5.1 [facility] Comment on above: Performed By: #### L [id number] #### [facility] ([facility]) [address] [place] [address] Sodium [Moles/Vol] 138 mmol/L Normal 136-145 [facility] Comment on above: Performed By: #### L [id number] #### [facility] ([facility]) [address] [place] [address] Urea nitrogen [Mass/Vol] 28 mg/dL High 7-25 [facility] Comment on above: Performed By: #### L [id number] #### [facility] ([facility]) [address] [place] [address] UREA NITROGEN/CREATININE (MASS RATIO) IN SER/PLAS 25.0 Normal [facility] Comment on above: Performed By: #### L [id number] #### [facility] ([facility]) [address] [place] [address] CBC WITH AUTO DIFFERENTIALon 02-05-2023 Basophils (Bld) [#/Vol] 0.03 10*3/uL Normal 0.00-0.20 [facility] Comment on above: Performed By: #### L [id number] #### [facility] ([facility]) [address] [place] [address] Basophils/100 WBC (Bld) 0.4 % Normal 0.0-1.0 [facility] Comment on above: Performed By: #### L [id number] #### [facility] ([facility]) [address] [place] [address] Eosinophils (Bld) [#/Vol] 0.65 10*3/uL High 0.00-0.50 [facility] Comment on above: Performed By: #### L [id number] #### [facility] ([facility]) [address] [place] [address] Eosinophils/100 WBC (Bld) 8.6 % High 0.0-6.0 [facility] Comment on above: Performed By: #### L [id number] #### [facility] ([facility]) [address] [place] [address] Erythrocyte distribution width (RBC) [Ratio] 14.1 % Normal 11.5-15.0 [facility] Comment on above: Performed By: #### L [id number] #### [facility] [address] [place] [address] ERYTHROCYTE MEAN CORPUSCULAR HEMOGLOBIN CONCENTRATION (G/DL) BY AUTOMATED 33.1 g/dL Normal 32.0-35.0 [facility] Comment on above: Performed By: #### L [id number] #### [facility] [address] [place] [address] Hematocrit (Bld) [Volume fraction] 37.5 % Normal 36.0-48.0 [facility] Comment on above: Performed By: #### L [id number] #### [facility] ([facility]) [address] [place] [address] Hemoglobin (Bld) [Mass/Vol] 12.4 g/dL Normal 12.0-15.0 [facility] Comment on above: Performed By: #### L [id number] #### [facility] ([facility]) [address] [place] [address] Immature granulocytes (Bld) [#/Vol] 0.02 10*3/uL Normal 0.00-0.20 [facility] Comment on above: Performed By: #### L [id number] #### [facility] ([facility]) [address] [place] [address] Immature granulocytes/100 WBC (Bld) 0.3 % Normal 0.0-1.0 [facility] Comment on above: Performed By: #### L [id number] #### [facility] ([facility]) [address] [place] [address] Lymphocytes (Bld) [#/Vol] 1.46 10*3/uL Normal 1.20-4.00 [facility] Comment on above: Performed By: #### L [id number] #### [facility] [address] [place] [address] Lymphocytes/100 WBC (Bld) 19.3 % Low 20.0-45.0 [facility] Comment on above: Performed By: #### L [id number] #### [facility] ([facility]) [address] [place] [address] MCH (RBC) [Entitic mass] 28.8 pg Normal 27.0-33.0 [facility] Comment on above: Performed By: #### L [id number] #### [facility] ([facility]) [address] [place] [address] MCV (RBC) [Entitic vol] 87.0 fL Normal 82.0-98.0 [facility] Comment on above: Performed By: #### L [id number] #### [facility] ([facility]) [address] [place] [address] Monocytes (Bld) [#/Vol] 0.69 10*3/uL Normal 0.10-1.00 [facility] Comment on above: Performed By: #### L [id number] #### [facility] ([facility]) [address] [place] [address] Monocytes/100 WBC (Bld) 9.1 % Normal 5.0-12.0 [facility] Comment on above: Performed By: #### L [id number] #### [facility] ([facility]) [address] [place] [address] Neutrophils (Bld) [#/Vol] 4.73 10*3/uL Normal 1.60-7.60 [facility] Comment on above: Performed By: #### L [id number] #### [facility] ([facility]) [address] [place] [address] Neutrophils/100 WBC (Bld) 62.3 % Normal 40.0-72.0 [facility] Comment on above: Performed By: #### L [id number] #### [facility] ([facility]) [address] [place] [address] NRBC (PER 100 WBCS) BY AUTOMATED COUNT 0.0 % Normal 0 [facility] Comment on above: Performed By: #### L [id number] #### [facility] ([facility]) [address] [place] [address] PLATELETS (10*3/UL) IN BLOOD AUTOMATED COUNT 175 10*3/uL Normal 150-400 [facility] Comment on above: Performed By: #### L [id number] #### [facility] ([facility]) [address] [place] [address] RBC (Bld) [#/Vol] 4.31 10*6/uL Normal 3.80-5.00 [facility] Comment on above: Performed By: #### L [id number] #### [facility] ([facility]) [address] [place] [address] WBC (Bld) [#/Vol] 7.58 10*3/uL Normal 4.00-10.60 [facility] Comment on above: Performed By: #### L [id number] #### [facility] ([facility]) [address] [place] [address] CONSULTon 02-05-2023 CONSULT ----- ----- Attestation signed [...] The patient is very high risk. ----- [place] Cardiology Consult Note Reason for visit: near-syncope [...] PMH: Past Medical History: Diagnosis Date A-fib ([facility]) Cancer ([facility]) Coronary artery disease Hypertension Myocardial infarct ([facility]) Stroke ([facility]) PSH: Past Surgical History: Procedure Laterality [...] no lightheadedness, (more content not included)... Normal [facility] HEPATIC FUNCTION PANELon Albumin [Mass/Vol] 3.8 g/dL Normal 3.5-5.7 [facility] Comment on above: Performed By: #### L [id number] #### [facility] ([facility]) [address] [place] [address] ALP [Catalytic activity/Vol] 92 U/L Normal 34-104 [facility] Comment on above: Performed By: #### L [id number] #### [facility] ([facility]) [address] [place] [address] ALT [Catalytic activity/Vol] 11 U/L Normal 7-52 [facility] Comment on above: Performed By: #### L [id number] #### [facility] ([facility]) [address] [place] [address] AST [Catalytic activity/Vol] 23 U/L Normal 13-39 [facility] Comment on above: Performed By: #### L [id number] #### [facility] ([facility]) [address] [place] [address] Bilirubin [Mass/Vol] 0.8 mg/dL Normal 0.3-1.0 [facility] Comment on above: Performed By: #### L [id number] #### [facility] ([facility]) [address] [place] [address] Magnesium [Mass/Vol] 0.1 mg/dL Normal 0-0.2 [facility] Comment on above: Performed By: #### L [id number] #### [facility] ([facility]) [address] [place] [address] Protein [Mass/Vol] 6.5 g/dL Normal 6.0-8.3 [facility] Comment on above: Performed By: #### L [id number] #### [facility] ([facility]) [address] [place] [address] HPon 02-05-2023 HP H&P reviewed. The pa tient was examined and there are no changes to the H&P. Normal [facility] HP H&P reviewed. The pa tient was examined and there are no changes to the H&P. Normal [facility] HP ----- ----- Attestation signed by [...] The patient is very high risk. ----- [place] Cardiology Consult Note Reason for visit: near-syncope [...] no lightheadedness, (more content not included)... Normal [facility] MAGNESIUMon 02-05-2023 Magnesium [Mass/Vol] 1.4 mg/dL Low 1.9-2.7 [facility] Comment on above: Performed By: #### L [id number] #### [facility] ([facility]) [address] [place] [address] TROPONIN Ion 02-05-2023 Troponin I.cardiac [Mass/Vol] 0.25 ng/mL Critically high 0.00-0.04 [facility] Comment on above: Result Comment: M-HI EVIOUS CRITICAL RESULT Previous result verified on 02/05/2023 0550 on specimen/case [id number] called with component Troponin I for procedure Troponin I with value 0.21 ng/mL. Performed By: #### L [id number] ####[facility] ([facility])[address] [place] [address] Troponin I.cardiac [Mass/Vol] 0.21 ng/mL Critically high 0.00-0.04 [facility] Comment on above: Result Comment: M-HI EVIOUS CRITICAL RESULT Previous result verified on 02/05/2023 0053 on specimen/case [id number] called with component Troponin I for procedure Troponin I with value 0.27 ng/mL. Performed By: #### L [id number] #### [facility] ([facility]) [address] [place] [address] Troponin I.cardiac [Mass/Vol] 0.27 ng/mL Critically high 0.00-0.04 [facility] Comment on above: Result Comment: M-TR OPONIN INITIAL CRITICAL HIGH; RESPUN AND RETESTED Performed By: #### L [id number] #### [facility] ([facility]) [address] [place] [address] HPon 01-23-2023 [facility] Electrophysiology Consult Note Reason for visit: s/p PPM for AV block, AF s/p cryomaze HPI: Trisha Parish is a 77 y.o. 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 She was recently admitted to [facility] for weakness, suspected to have a stroke [...] stroke who presented with generalized weakness to [facility]. At [facility], EKG demonstarted a 2:1 AV block with prolonged HI interval 266. Chest x-ray demonstrated possible trace [...] heart rate 59. Patient was transferred to [facility] for further evaluation by cardiology. She was [...] tablet anastrozole (more content not included)... Normal [facility] Office Visiton 01-23-2023 Follow-up visit [id number] Trisha Parish 1945 F Date Provider Department Center 01/23/2023 241-DOE SOTO C[facility] No family history on file Level of Service:93160 HI OFFICE/OUTPATIENT NEW MODERATE MDM 45-59 MINUTES Reason for Visit and Comments: Follow-up [748513] - 3 month follow up Normal [facility] Office Visiton 01-17-2023 Follow-up visit [id number] Trisha Parish 1945 F Date Provider Department Center 01/17/2023 TOÑO SIMPSON [facility] No family history on file Level of Service:88774 HI OFFICE/OUTPATIENT ESTABLISHED MOD MDM 30-39 MIN Reason for Visit and Comments: Valve Disorder [3372] Atrial Fibrillation [80] Coronary Artery Disease [187] Normal [facility] PTH INTACTon 10-07-2022 PTH, Intact 45 pg/mL Normal 15-65 [facility] Comment on above: Performed By: #### P T, PTT #### [facility] [address] [place] [address] Dr. Madisyn Bentley Office Visiton 10-06-2022 Follow-up visit [id number] Trisha Parish 1945 F Date Provider Department Center 10/06/2022 MIKAYLA AUSTIN [facility] No family history on file Level of Service:25493 HI OFFICE/OUTPATIENT ESTABLISHED LOW MDM 20-29 MIN Reason for Visit and Comments: Hypertension [073329] Normal [facility] RENAL FUNCTION PANELon 10-06 Albumin [Mass/Vol] 3.3 g/dL Critically low 3.4-5.0 [facility] Comment on above: Performed By: #### R ENAL #### [facility] [address] [address] [address] Madisyn Bentley Calcium [Mass/Vol] 8.2 mg/dL Critically low 8.5-10.1 [facility] Comment on above: Performed By: #### R ENAL #### [facility] [address] [address] [address] Madisyn Bentley Chloride [Moles/Vol] 110 mmol/L Critically high 98-107 [facility] Comment on above: Performed By: #### R ENAL #### [facility] [address] [address] [address] Madisyn Bentley CO2 [Moles/Vol] 22.2 mmol/L Normal 21.0-32.0 [place] Comment on above: Performed By: #### R ENAL #### [facility] [address] [address] [address] Madisyn Bentley Creatinine [Mass/Vol] 1.36 mg/dL Critically high 0.55-1.02 [facility] Comment on above: Performed By: #### R ENAL #### [facility] [address] [address] [address] Madisyn Bentley EGFR-AF CUBAN 46 mL/min/1.73m2 Critically low >=60 [facility] Comment on above: Performed By: #### R ENAL #### [facility] [address] [address] [address] Madisyn Bentley EGFR-NON AF CUBAN 38 mL/min/1.73m2 Critically low >=60 [facility] Comment on above: Performed By: #### R ENAL #### [facility] [address] [address] [address] Madisyn Bentley Glucose [Mass/Vol] 145 mg/dL Critically high 74-106 [facility] Comment on above: Performed By: #### R ENAL #### [facility] [address] [address] [address] Madisyn Bentley Phosphate [Mass/Vol] 2.7 mg/dL Normal 2.6-4.7 [facility] Comment on above: Performed By: #### R ENAL #### [facility] [address] [address] [address] Madisyn Bentley Potassium [Moles/Vol] 3.9 mmol/L Normal 3.5-5.1 [facility] Comment on above: Performed By: #### R ENAL #### [facility] [address] [address] [address] Madisyn Bentley Sodium [Moles/Vol] 143 mmol/L Normal 136-145 [facility] Comment on above: Performed By: #### R ENAL #### [facility] [address] [address] [address] Madisyn Bentley Urea nitrogen [Mass/Vol] 24.0 mg/dL Critically high 7.0-18.0 [facility] Comment on above: Performed By: #### R ENAL #### [facility] [address] [place] [address] Dr. Madisyn Bentley UA RANDOMon 10-06-2022 Bilirubin Ql (U) Negative Normal NEGATIVE [place] Comment on above: Performed By: #### R ENAL #### [facility] [address] [place] [address] Dr. Madisyn Bentley Clarity (U) CLEAR Normal CLEAR [facility] Comment on above: Performed By: #### R ENAL #### [facility] [address] [place] [address] Dr. Madisyn Bentley Color (U) LT. YELLOW Normal YELLOW [facility] Comment on above: Performed By: #### R ENAL #### [facility] [address] [place] [address] Dr. Madisyn Bentley Glucose Ql (U) Negative Normal NEGATIVE [facility] Comment on above: Performed By: #### R ENAL #### [facility] [address] [place] [address] Dr. Madisyn Bentley Hemoglobin Ql (U) Negative Normal NEGATIVE [facility] Comment on above: Performed By: #### R ENAL #### [facility] [address] [place] [address] Dr. Madisyn Bentley Ketones Ql (U) Negative Normal NEGATIVE [facility] Comment on above: Performed By: #### R ENAL #### [facility] [address] [place] [address] Dr. Madisyn Bentley LEUKOCYTES SMALL Abnormal NEGATIVE [facility] Comment on above: Performed By: #### R ENAL #### [facility] [address] [place] [address] Dr. Madisyn Bentley Nitrite Ql (U) Negative Normal NEGATIVE [facility] Comment on above: Performed By: #### R ENAL #### [facility] [address] [place] [address] Dr. Madisyn Bentley pH (U) 5.5 [pH] Normal 5-9 [facility] Comment on above: Performed By: #### R ENAL #### [facility] [address] [place] [address] Dr. Madisyn Bentley SPEC GRAVITY 1.020 Normal 1.005-<=1.[address] [place] [address] Comment on above: Performed By: #### R ENAL #### [facility] [address] [place] [address] Dr. Madisyn Bentley UA PROTEIN TRACE Normal NEGATIVE/ TRACE [facility] Comment on above: Performed By: #### R ENAL #### [facility] [address] [place] [address] Dr. Madisyn Bentley Urobilinogen Qn (U) 0.2 {Luis Eduardo'U}/dL Normal 0.2 - 1. 0 [facility] Comment on above: Performed By: #### R ENAL #### [facility] [address] [place] [address] Dr. Madisyn Bentley URINE T PROTEIN CREAT RATIOo n 10-06-2022 Protein (U) [Mass/Vol] 47.8 mg/dL Critically high <=12.0 [facility] Comment on above: Performed By: #### U RTPCR #### [facility] [address] [place] [address] Dr. Madisyn Bentley UR PROT CREAT RAT 0.26 Normal [facility] Comment on above: Performed By: #### U RTPCR #### [facility] [address] [place] [address] Dr. Madisyn Bentley URINE CREAT 186.22 mg/dL Normal 20.00-300.00 [facility] Comment on above: Performed By: #### U RTPCR #### [facility] [address] [place] [address] Dr. Madisyn Bentley Office Visiton 09-20-2022 Follow-up visit [id number] Trisha Parish 1945 F Date Provider Department Center 09/20/2022 Yovany6-PRECIOUS MONREAL [facility] No family history on file Level of Service:49696 HI OFFICE/OUTPATIENT ESTABLISHED LOW MDM 20-29 MIN Normal [facility] CBC WITH AUTO DIFFERENTIALon 09-12-2022 Basophils (Bld) [#/Vol] 0.03 10*3/uL Normal 0.00-0.20 [facility] Comment on above: Performed By: #### L [id number] #### [facility] ([facility]) [address] [place] [address] Basophils/100 WBC (Bld) 0.3 % Normal 0.0-1.0 [facility] Comment on above: Performed By: #### L [id number] #### [facility] ([facility]) [address] [place] [address] Eosinophils (Bld) [#/Vol] 0.21 10*3/uL Normal 0.00-0.50 [facility] Comment on above: Performed By: #### L [id number] #### [facility] ([facility]) [address] [place] [address] Eosinophils/100 WBC (Bld) 2.3 % Normal 0.0-6.0 [facility] Comment on above: Performed By: #### L [id number] #### [facility] ([facility]) [address] [place] [address] Erythrocyte distribution width (RBC) [Ratio] 13.3 % Normal 11.5-15.0 [facility] Comment on above: Performed By: #### L [id number] #### [facility] ([facility]) [address] [place] [address] ERYTHROCYTE MEAN CORPUSCULAR HEMOGLOBIN CONCENTRATION (G/DL) BY AUTOMATED 33.4 g/dL Normal 32.0-35.0 [facility] Comment on above: Performed By: #### L [id number] #### [facility] ([facility]) [address] [place] [address] Hematocrit (Bld) [Volume fraction] 29.0 % Low 36.0-48.0 [facility] Comment on above: Performed By: #### L [id number] #### [facility] ([facility]) [address] [place] [address] Hemoglobin (Bld) [Mass/Vol] 9.7 g/dL Low 12.0-15.0 [facility] Comment on above: Performed By: #### L [id number] #### [facility] [address] [place] [address] Immature granulocytes (Bld) [#/Vol] 0.02 10*3/uL Normal 0.00-0.20 [facility] Comment on above: Performed By: #### L [id number] #### [facility] ([facility]) [address] [place] [address] Immature granulocytes/100 WBC (Bld) 0.2 % Normal 0.0-1.0 [facility] Comment on above: Performed By: #### L [id number] #### [facility] ([facility]) [address] [place] [address] Lymphocytes (Bld) [#/Vol] 1.24 10*3/uL Normal 1.20-4.00 [facility] Comment on above: Performed By: #### L [id number] #### [facility] ([facility]) [address] [place] [address] Lymphocytes/100 WBC (Bld) 13.6 % Low 20.0-45.0 [facility] Comment on above: Performed By: #### L [id number] #### [facility] ([facility]) [address] [place] [address] MCH (RBC) [Entitic mass] 30.4 pg Normal 27.0-33.0 [facility] Comment on above: Performed By: #### L [id number] #### [facility] [address] [facility] [place] [address] MCV (RBC) [Entitic vol] 90.9 fL Normal 82.0-98.0 [facility] Comment on above: Performed By: #### L [id number] #### [facility] ([facility]) [address] [place] [address] Monocytes (Bld) [#/Vol] 0.68 10*3/uL Normal 0.10-1.00 [facility] Comment on above: Performed By: #### L [id number] #### [facility] ([facility]) [address] [place] [address] Monocytes/100 WBC (Bld) 7.5 % Normal 5.0-12.0 [facility] Comment on above: Performed By: #### L [id number] #### [facility] ([facility]) [address] [place] [address] Neutrophils (Bld) [#/Vol] 6.93 10*3/uL Normal 1.60-7.60 [facility] Comment on above: Performed By: #### L [id number] #### [facility] ([facility]) [address] [place] [address] Neutrophils/100 WBC (Bld) 76.1 % High 40.0-72.0 [facility] Comment on above: Performed By: #### L [id number] #### [facility] ([facility]) [address] [place] [address] NRBC (PER 100 WBCS) BY AUTOMATED COUNT 0.0 % Normal 0.0-0.0 [facility] Comment on above: Performed By: #### L [id number] #### [facility] ([facility]) [address] [place] [address] PLATELETS (10*3/UL) IN BLOOD AUTOMATED COUNT 175 10*3/uL Normal 150-400 [facility] Comment on above: Performed By: #### L [id number] #### [facility] ([facility]) [address] [place] [address] RBC (Bld) [#/Vol] 3.19 10*6/uL Low 3.80-5.00 [facility] Comment on above: Performed By: #### L [id number] #### [facility] ([facility]) [address] [place] [address] WBC (Bld) [#/Vol] 9.11 10*3/uL Normal 4.00-10.60 [facility] Comment on above: Performed By: #### L [id number] #### [facility] ([facility]ER) [address] [place] [address] COMPREHENSIVE METABOLIC PANE Otto 09-12-2022 Albumin [Mass/Vol] 2.9 g/dL Low 3.5-5.7 [facility] Comment on above: Performed By: #### L [id number] ####[facility] ([facility] [place] [address] ALP [Catalytic activity/Vol] 61 U/L Normal 34-104 [facility] Comment on above: Performed By: #### L [id number] ####[facility] ([facility])[address] [place] [address] ALT [Catalytic activity/Vol] 7 U/L Normal 7-52 [facility] Comment on above: Performed By: #### L [id number] ####[facility] ([facility])[address] [place] [address] Anion gap [Moles/Vol] 5 mmol/L Low 7-20 [facility] Comment on above: Performed By: #### L [id number] ####[facility] ([facility])[address] [place] [address] AST [Catalytic activity/Vol] 12 U/L Low 13-39 [facility] Comment on above: Performed By: #### L [id number] ####[facility] ([facility])[address] [place] [address] Bilirubin [Mass/Vol] 0.5 mg/dL Normal 0.3-1.0 [facility] Comment on above: Performed By: #### L [id number] ####[facility] ([facility] [place] [address] Calcium [Mass/Vol] 8.2 mg/dL Low 8.6-10.3 [facility] Comment on above: Performed By: #### L [id number] ####[facility] ([facility] [place] [address] Chloride [Moles/Vol] 109 mmol/L High 98-107 [facility] Comment on above: Performed By: #### L [id number] ####[facility] ([facility] [place] [address] CO2 [Moles/Vol] 22 mmol/L Normal 21-31 [facility] Comment on above: Performed By: #### L [id number] ####[facility] ([facility] [place] [address] Creatinine [Mass/Vol] 1.59 mg/dL High 0.60-1.20 [facility] Comment on above: Performed By: #### L [id number] ####[facility] ([facility])[address] [place] [address] GLOMERULAR FILTRATION RATE ML/MIN/1.73 SQ M.PREDICTED 31.1 mL/min/1.73m*2 Low >60.0 [facility] Comment on above: Result Comment: [facility]???s estimated glomerular filtration rate (eGFR) will [...] of individuals. Performed By: #### L [id number] ####[facility] ([facility] [place] [address] Glucose [Mass/Vol] 80 mg/dL Normal 70-100 [facility] Comment on above: Performed By: #### L [id number] ####[facility] ([facility] [place] [address] Potassium [Moles/Vol] 3.9 mmol/L Normal 3.5-5.1 [facility] Comment on above: Performed By: #### L [id number] ####[facility] ([facility] [place] [address] Protein [Mass/Vol] 5.3 g/dL Low 6.0-8.3 [facility] Comment on above: Performed By: #### L [id number] ####[facility] (BEAKER)[address] [place] [address] Sodium [Moles/Vol] 136 mmol/L Normal 136-145 [facility] Comment on above: Performed By: #### L [id number] ####[facility] ([facility])[address] [place] [address] Urea nitrogen [Mass/Vol] 37 mg/dL High 7-25 [facility] Comment on above: Performed By: #### L [id number] ####[facility] ([facility])[address] [place] [address] UREA NITROGEN/CREATININE (MASS RATIO) IN SER/PLAS 23.27 Normal [facility] Comment on above: Performed By: #### L [id number] ####[facility] ([facility])[address] [place] [address] DSon 09-12-2022 DS ----- ----- Attestation signed [...] Your Medications These medications were sent to [facility]/pharmacy #[id number] [place] [address] doxycycline 100 mg capsule Activity Patient currently [...] stroke who presented with generalized weakness to [facility]. She presented with 2-day history of exertional shortness of breath and weakness with intermittent palpitations. She stated that her legs felt heavy. She denied any recent changes of medication and illness. Patient states that she does take Plavix daily. She denies any use of anticoagulation. At [facility], EKG demonstarted a 2:1 AV block with prolonged HI interval 266. Chest x-ray demonstrated possible trace [...] heart rate 59. Patient was transferred to [facility] for further evaluation by cardiology. She was [...] RDW 13. (more content not included)... Normal [facility] MAGNESIUMon 09-12-2022 Magnesium [Mass/Vol] 1.9 mg/dL Normal 1.9-2.7 [facility] Comment on above: Performed By: #### L [id number] ####[facility] ([facility])[address] [place] [address] NURSNOTEon 09-12-2022 NURSNOTE Taught patient and h er discharge instructions, when to call doctor, follow up appointments, and medication changes. Normal [facility] PHOSPHORUSon 09-12-2022 Magnesium [Mass/Vol] 3.2 mg/dL Normal 2.5-5.0 [facility] Comment on above: Performed By: #### L [id number] ####[facility] ([facility])[address] [place] [address] POCT GLUCOSE METER UNSOLICIT ED RESULTSon 09-12-2022 Glucose [Mass/Vol] 96 mg/dL Normal 70-105 [facility] Comment on above: Result Comment: aide er2 Performed By: #### L [id number] #### [facility] ([facility]) [address] [place] [address] Glucose [Mass/Vol] 138 mg/dL High 70-105 [facility] Comment on above: Result Comment: chito es Performed By: #### L [id number] #### [facility] ([facility]) [address] [facility] [place] [address] APTTon 09-11-2022 ACTIVATED PARTIAL THROMBOPLASTIN TIME IN PPP BY COAGULATION ASSAY 48.0 Seconds High 25.0-35.0 [facility] Comment on above: Performed By: #### L [id number] #### [facility] ([facility]) [address] [place] [address] CBC WITH AUTO DIFFERENTIALon 09-11-2022 Basophils (Bld) [#/Vol] 0.02 10*3/uL Normal 0.00-0.20 [facility] Comment on above: Performed By: #### L [id number] ####[facility] ([facility])[address] [place] [address] Basophils/100 WBC (Bld) 0.3 % Normal 0.0-1.0 [facility] Comment on above: Performed By: #### L [id number] ####[facility] ([facility])[address] [place] [address] Eosinophils (Bld) [#/Vol] 0.12 10*3/uL Normal 0.00-0.50 [facility] Comment on above: Performed By: #### L [id number] ####[facility] ([facility])[address] [place] [address] Eosinophils/100 WBC (Bld) 2.0 % Normal 0.0-6.0 [facility] Comment on above: Performed By: #### L [id number] ####[facility] ([facility])[address] [place] [address] Erythrocyte distribution width (RBC) [Ratio] 13.2 % Normal 11.5-15.0 [facility] Comment on above: Performed By: #### L [id number] ####[facility] ([facility])[address] [place] [address] ERYTHROCYTE MEAN CORPUSCULAR HEMOGLOBIN CONCENTRATION (G/DL) BY AUTOMATED 31.7 g/dL Low 32.0-35.0 [facility] Comment on above: Performed By: #### L [id number] ####[facility] ([facility])[address] [place] [address] Hematocrit (Bld) [Volume fraction] 30.0 % Low 36.0-48.0 [facility] Comment on above: Performed By: #### L [id number] ####[facility] ([facility])[address] [place] [address] Hemoglobin (Bld) [Mass/Vol] 9.5 g/dL Low 12.0-15.0 [facility] Comment on above: Performed By: #### L [id number] ####[facility] ([facility])[address] [place] [address] Immature granulocytes (Bld) [#/Vol] 0.02 10*3/uL Normal 0.00-0.20 [facility] Comment on above: Performed By: #### L [id number] ####[facility] ([facility])[address] [place] [address] Immature granulocytes/100 WBC (Bld) 0.3 % Normal 0.0-1.0 [facility] Comment on above: Performed By: #### L [id number] ####[facility] ([facility])[address] [place] [address] Lymphocytes (Bld) [#/Vol] 1.23 10*3/uL Normal 1.20-4.00 [facility] Comment on above: Performed By: #### L [id number] ####[facility] ([facility])[address] [place] [address] Lymphocytes/100 WBC (Bld) 21.0 % Normal 20.0-45.0 [facility] Comment on above: Performed By: #### L [id number] ####[facility] ([facility])[address] [place] [address] MCH (RBC) [Entitic mass] 29.4 pg Normal 27.0-33.0 [facility] Comment on above: Performed By: #### L [id number] ####[facility] ([facility])[address] [place] [address] MCV (RBC) [Entitic vol] 92.9 fL Normal 82.0-98.0 [facility] Comment on above: Performed By: #### L [id number] ####[facility] ([facility])[address] [place] [address] Monocytes (Bld) [#/Vol] 0.62 10*3/uL Normal 0.10-1.00 [facility] Comment on above: Performed By: #### L [id number] ####[facility] ([facility])[address] [place] [address] Monocytes/100 WBC (Bld) 10.6 % Normal 5.0-12.0 [facility] Comment on above: Performed By: #### L [id number] ####[facility] [place] [address] Neutrophils (Bld) [#/Vol] 3.85 10*3/uL Normal 1.60-7.60 [facility] Comment on above: Performed By: #### L [id number] ####[facility] ([facility])[address] [place] [address] Neutrophils/100 WBC (Bld) 65.8 % Normal 40.0-72.0 [facility] Comment on above: Performed By: #### L [id number] ####[facility] ([facility])[address] [place] [address] NRBC (PER 100 WBCS) BY AUTOMATED COUNT 0.0 % Normal 0.0-0.0 [facility] Comment on above: Performed By: #### L [id number] ####[facility] ([facility])[address] [place] [address] PLATELETS (10*3/UL) IN BLOOD AUTOMATED COUNT 165 10*3/uL Normal 150-400 [facility] Comment on above: Performed By: #### L [id number] ####[facility] ([facility])[address] [place] [address] RBC (Bld) [#/Vol] 3.23 10*6/uL Low 3.80-5.00 [facility] Comment on above: Performed By: #### L [id number] ####[facility] ([facility] [place] [address] WBC (Bld) [#/Vol] 5.86 10*3/uL Normal 4.00-10.60 [facility] Comment on above: Performed By: #### L [id number] ####[facility] ([facility])[address] [place] [address] COMPREHENSIVE METABOLIC PANE Otto 09-11-2022 Albumin [Mass/Vol] 3.1 g/dL Low 3.5-5.7 [facility] Comment on above: Performed By: #### L [id number] ####[facility] ([facility])[address] [place] [address] ALP [Catalytic activity/Vol] 65 U/L Normal 34-104 [facility] Comment on above: Performed By: #### L [id number] ####[facility] ([facility])[address] [place] [address] ALT [Catalytic activity/Vol] 7 U/L Normal 7-52 [facility] Comment on above: Performed By: #### L [id number] ####[facility] ([facility])[address] [place] [address] Anion gap [Moles/Vol] 7 mmol/L Normal 7-20 [facility] Comment on above: Performed By: #### L [id number] ####[facility] ([facility])[address] [place] [address] AST [Catalytic activity/Vol] 10 U/L Low 13-39 [facility] Comment on above: Performed By: #### L [id number] ####[facility] ([facility])[address] [place] [address] Bilirubin [Mass/Vol] 0.7 mg/dL Normal 0.3-1.0 [facility] Comment on above: Performed By: #### L [id number] ####[facility] ([facility])[address] [place] [address] Calcium [Mass/Vol] 8.2 mg/dL Low 8.6-10.3 [facility] Comment on above: Performed By: #### L [id number] ####[facility] ([facility])[address] [place] [address] Chloride [Moles/Vol] 112 mmol/L High 98-107 [facility] Comment on above: Performed By: #### L [id number] ####[facility] ([facility])[address] [place] [address] CO2 [Moles/Vol] 19 mmol/L Low 21-31 [facility] Comment on above: Performed By: #### L [id number] ####[facility] ([facility])[address] [place] [address] Creatinine [Mass/Vol] 1.69 mg/dL High 0.60-1.20 [facility] Comment on above: Performed By: #### L [id number] ####[facility] ([facility])[address] [place] [address] GLOMERULAR FILTRATION RATE ML/MIN/1.73 SQ M.PREDICTED 28.9 mL/min/1.73m*2 Low >60.0 [facility] Comment on above: Result Comment: [facility]???s estimated glomerular filtration rate (eGFR) will [...] of individuals. Performed By: #### L [id number] ####[facility] ([facility])[address] [place] [address] Glucose [Mass/Vol] 106 mg/dL High 70-100 [facility] Comment on above: Performed By: #### L [id number] ####[facility] ([facility])[address] [place] [address] Potassium [Moles/Vol] 3.9 mmol/L Normal 3.5-5.1 [facility] Comment on above: Performed By: #### L [id number] ####[facility] ([facility])[address] [place] [address] Protein [Mass/Vol] 5.5 g/dL Low 6.0-8.3 [facility] Comment on above: Performed By: #### L [id number] ####[facility] ([facility])[address] [place] [address] Sodium [Moles/Vol] 138 mmol/L Normal 136-145 [facility] Comment on above: Performed By: #### L [id number] ####[facility] ([facility])[address] [place] [address] Urea nitrogen [Mass/Vol] 43 mg/dL High 7-25 [facility] Comment on above: Performed By: #### L [id number] ####[facility] ([facility])[address] [place] [address] UREA NITROGEN/CREATININE (MASS RATIO) IN SER/PLAS 25.44 Normal [facility] Comment on above: Performed By: #### L [id number] ####[facility] ([facility])[address] [place] [address] HPon 09-11-2022 HP H&P reviewed. The pa marlenent was examined and there are no changes to the H&P. Normal [facility] MAGNESIUMon 09-11-2022 Magnesium [Mass/Vol] 2.3 mg/dL Normal 1.9-2.7 [facility] Comment on above: Performed By: #### L [id number] #### [facility] ([facility]) [address] [place] [address] PHOSPHORUSon 09-11-2022 Magnesium [Mass/Vol] 3.3 mg/dL Normal 2.5-5.0 [facility] Comment on above: Performed By: #### L [id number] #### [facility] ([facility]) [address] [place] [address] POCT GLUCOSE METER UNSOLICIT ED RESULTSon 09-11-2022 Glucose [Mass/Vol] 100 mg/dL Normal 70-105 [facility] Comment on above: Result Comment: [email or web address] Performed By: #### L [id number] #### [facility] ([facility]) [address] [place] [address] Glucose [Mass/Vol] 111 mg/dL High 70-105 [facility] Comment on above: Result Comment: [email or web address] [email or web address] Performed By: #### L [id number] #### [facility] (Graspr) [address] [place] [address] Glucose [Mass/Vol] 107 mg/dL High 70-105 [facility] Comment on above: Result Comment: [email or web address] [email or web address] Performed By: #### L [id number] #### [facility] ([facility] [address] [place] [address] PROTIME-INRon 09-11-2022 INR IN PPP BY COAGULATION ASSAY 1.51 High 0.90-1.10 [facility] Comment on above: Result Comment: ACCC [...] CHEST 1995;[id number]. Performed By: #### L [id number] ####[facility] (Graspr)[address] [place] [address] PROTHROMBIN TIME (PT) IN PPP BY COAGULATION ASSAY 18.1 Seconds High 12.3-14.8 [facility] Comment on above: Performed By: #### L [id number] ####[facility] (Graspr)[address] [place] [address] B-TYPE NATRIURETIC PEPTIDEon 09-10-2022 Natriuretic peptide B (Bld) [Mass/Vol] 1226 pg/mL High 0-100 [facility] Comment on above: Performed By: #### L [id number] #### [facility] ([facility]) [address] [place] [place] [address] BNPon 09-10-2022 Natriuretic peptide B (Bld) [Mass/Vol] 71699.0 pg/mL Critically high <=1,800.0 [facility] Comment on above: Performed By: #### B REFINING ENGINEER, HSTROPN #### [facility] [address] [place] [address] Dr. Madisyn Bentley CBC AUTO DIFFon 09-10-2022 BASO # 0.0 103/ul Normal 0.0-0.1 [facility] Comment on above: Performed By: #### R ENAL #### [facility] [address] [place] [address] Dr. Madisyn Bentley Basophils/100 WBC (Bld) 0.3 % Normal 0.2-2.0 [facility] Comment on above: Performed By: #### R ENAL #### [facility] [address] [place] [address] Dr. Madisyn Bentley EO # 0.3 103/ul Normal 0.0-0.7 [facility] Comment on above: Performed By: #### R ENAL #### [facility] [address] [place] [address] Dr. Madisyn Bentley Eosinophils/100 WBC (Bld) 2.4 % Normal 0.9-7.0 [facility] Comment on above: Performed By: #### R ENAL #### [facility] [address] [place] [address] Dr. Madisyn Bentley Erythrocyte distribution width (RBC) [Ratio] 13.3 % Normal 11.0-15.0 [facility] Comment on above: Performed By: #### R ENAL #### [facility] [address] [place] [address] Dr. Madisyn Bentley Hematocrit (Bld) [Volume fraction] 36.0 % Normal 36.0-48.0 [facility] Comment on above: Performed By: #### R ENAL #### [facility] [address] [place] [address] [address] Madisyn Bentley Hemoglobin (Bld) [Mass/Vol] 11.2 g/dL Critically low 12.0-16.0 [facility] Comment on above: Performed By: #### R ENAL #### [facility] [address] [place] [address] [address] Madisyn Bentley IG # 0.02 10e3/ul Normal 0.00-0.03 [facility] Comment on above: Performed By: #### R ENAL #### [facility] [address] [place] [address] Dr. Madisyn Bentley IG % 0.2 % Normal 0.0-0.5 [facility] Comment on above: Performed By: #### R ENAL #### [facility] [address] [place] [address] Dr. Madisyn Bentley LYMPH # 1.4 103/ul Normal 1.2-3.8 [facility] Comment on above: Performed By: #### R ENAL #### [facility] [address] [place] [address] Dr. Madisyn Bentley Lymphocytes/100 WBC (Bld) 13.3 % Critically low 20.5-60.0 [facility] Comment on above: Performed By: #### R ENAL #### [facility] [address] [place] [address] Dr. Madisyn Bentley MANUAL DIFF REQ NO Normal [facility] Comment on above: Performed By: #### R ENAL #### [facility] [address] [place] [address] Dr. Madisyn Bentley MCH (RBC) [Entitic mass] 28.9 pg Normal 26.7-34.0 [facility] Comment on above: Performed By: #### R ENAL #### [facility] [address] [place] [address] Dr. Madisyn Bentley MCHC (RBC) [Mass/Vol] 31.1 g/dL Normal 29.9-35.2 [facility] Comment on above: Performed By: #### R ENAL #### [facility] [address] [place] [address] [address] Madisyn Bentley MCV (RBC) [Entitic vol] 92.8 fL Normal 81.0-99.0 [facility] Comment on above: Performed By: #### R ENAL #### [facility] [address] [place] [address] [address] Madisyn Bentley MONO # 0.9 103/ul Critically high 0.3-0.8 [facility] Comment on above: Performed By: #### R ENAL #### [facility] [address] [place] [address] Dr. Madisyn Bentley Monocytes/100 WBC (Bld) 8.4 % Normal 1.7-12.0 [facility] Comment on above: Performed By: #### R ENAL #### [facility] [address] [place] [address] Dr. Madisyn Bentley NEUT # 8.1 103/ul Critically high 1.4-6.5 [facility] Comment on above: Performed By: #### R ENAL #### [facility] [address] [place] [address] Dr. Madisyn Bentley Neutrophils/100 WBC (Bld) 75.4 % Critically high 43.0-75.0 [facility] Comment on above: Performed By: #### R ENAL #### [facility] [address] [place] [address] Dr. Madisyn Bentley Platelet mean volume (Bld) [Entitic vol] 12.8 fL Normal 9.5-13.5 [facility] Comment on above: Performed By: #### R ENAL #### [facility] [address] [place] [address] Dr. Madisyn Bentley PLT 200 103/ul Normal 150-450 [facility] Comment on above: Performed By: #### R ENAL #### [facility] [address] [place] [address] Dr. Madisyn Bentley RBC 3.88 106/ul Critically low 4.20-5.40 [facility] Comment on above: Performed By: #### R ENAL #### [facility] [address] [place], [place] [address] Dr. Madisyn Bentley WBC 10.8 103/ul Normal 4.0-11.0 [facility] Comment on above: Performed By: #### R ENAL #### [facility] [address] [place], [place] [address] Dr. Madisyn Bentley CBC WITH AUTO DIFFERENTIALon 09-10-2022 Basophils (Bld) [#/Vol] 0.03 10*3/uL Normal 0.00-0.20 [facility] Comment on above: Performed By: #### L [id number] ####[facility] [facility] [place] [address] Basophils/100 WBC (Bld) 0.3 % Normal 0.0-1.0 [facility] Comment on above: Performed By: #### L [id number] ####[facility] [facility] [place] [address] Eosinophils (Bld) [#/Vol] 0.08 10*3/uL Normal 0.00-0.50 [facility] Comment on above: Performed By: #### L [id number] ####[facility] (BEAKER)[address] [facility] [place] [address] Eosinophils/100 WBC (Bld) 0.8 % Normal 0.0-6.0 [facility] Comment on above: Performed By: #### L [id number] ####[facility] ([facility])[address] [facility] [place] [address] Erythrocyte distribution width (RBC) [Ratio] 13.2 % Normal 11.5-15.0 [facility] Comment on above: Performed By: #### L [id number] ####[facility] (BE[facility]ER)[address] [place] [address] ERYTHROCYTE MEAN CORPUSCULAR HEMOGLOBIN CONCENTRATION (G/DL) BY AUTOMATED 31.6 g/dL Low 32.0-35.0 [facility] Comment on above: Performed By: #### L [id number] ####[facility] ([facility])[address] [place] [address] Hematocrit (Bld) [Volume fraction] 33.5 % Low 36.0-48.0 [facility] Comment on above: Performed By: #### L [id number] ####[facility] ([facility])[address] [place] [address] Hemoglobin (Bld) [Mass/Vol] 10.6 g/dL Low 12.0-15.0 [facility] Comment on above: Performed By: #### L [id number] ####[facility] ([facility])[address] [place] [address] Immature granulocytes (Bld) [#/Vol] 0.03 10*3/uL Normal 0.00-0.20 [facility] Comment on above: Performed By: #### L [id number] ####[facility] ([facility])[address] [place] [address] Immature granulocytes/100 WBC (Bld) 0.3 % Normal 0.0-1.0 [facility] Comment on above: Performed By: #### L [id number] ####[facility] ([facility])[address] [place] [address] Lymphocytes (Bld) [#/Vol] 1.12 10*3/uL Low 1.20-4.00 [facility] Comment on above: Performed By: #### L [id number] ####[facility] ([facility])[address] [place] [address] Lymphocytes/100 WBC (Bld) 11.4 % Low 20.0-45.0 [facility] Comment on above: Performed By: #### L [id number] ####[facility] ([facility])[address] [place] [address] MCH (RBC) [Entitic mass] 28.4 pg Normal 27.0-33.0 [facility] Comment on above: Performed By: #### L [id number] ####[facility] ([facility])[address] [place] [address] MCV (RBC) [Entitic vol] 89.8 fL Normal 82.0-98.0 [facility] Comment on above: Performed By: #### L [id number] ####[facility] ([facility])[address] [place] [address] Monocytes (Bld) [#/Vol] 0.90 10*3/uL Normal 0.10-1.00 [facility] Comment on above: Performed By: #### L [id number] ####[facility] ([facility])[address] [place] [address] Monocytes/100 WBC (Bld) 9.1 % Normal 5.0-12.0 [facility] Comment on above: Performed By: #### L [id number] ####[facility] ([facility])[address] [place] [address] Neutrophils (Bld) [#/Vol] 7.69 10*3/uL High 1.60-7.60 [facility] Comment on above: Performed By: #### L [id number] ####[facility] ([facility])[address] [place] [address] Neutrophils/100 WBC (Bld) 78.1 % High 40.0-72.0 [facility] Comment on above: Performed By: #### L [id number] ####[facility] ([facility])[address] [place] [address] NRBC (PER 100 WBCS) BY AUTOMATED COUNT 0.0 % Normal 0.0-0.0 [facility] Comment on above: Performed By: #### L [id number] ####[facility] ([facility])[address] [place] [address] PLATELETS (10*3/UL) IN BLOOD AUTOMATED COUNT 204 10*3/uL Normal 150-400 [facility] Comment on above: Performed By: #### L [id number] ####[facility] ([facility])[address] [place] [address] RBC (Bld) [#/Vol] 3.73 10*6/uL Low 3.80-5.00 [facility] Comment on above: Performed By: #### L [id number] ####[facility] ([facility])[address] [place] [address] WBC (Bld) [#/Vol] 9.85 10*3/uL Normal 4.00-10.60 [facility] Comment on above: Performed By: #### L [id number] ####[facility] ([facility])[address] [place] [address] COMPREHENSIVE METABOLIC PANE Otto 09-10-2022 Albumin [Mass/Vol] 3.3 g/dL Low 3.5-5.7 [facility] Comment on above: Performed By: #### L [id number] #### [facility] ([facility]) [address] [place] [address] ALP [Catalytic activity/Vol] 75 U/L Normal 34-104 [facility] Comment on above: Performed By: #### L [id number] #### [facility] ([facility]) [address] [place] [address] ALT [Catalytic activity/Vol] 8 U/L Normal 7-52 [facility] Comment on above: Performed By: #### L [id number] #### [facility] ([facility]) [address] [place] [address] Anion gap [Moles/Vol] 9 mmol/L Normal 7-20 [facility] Comment on above: Performed By: #### L [id number] #### [facility] ([facility]) [address] [place] [address] AST [Catalytic activity/Vol] 11 U/L Low 13-39 [facility] Comment on above: Performed By: #### L [id number] #### [facility] ([facility]) [address] [place] [address] Bilirubin [Mass/Vol] 1.0 mg/dL Normal 0.3-1.0 [facility] Comment on above: Performed By: #### L [id number] #### [facility] (BEAKER) [address] [place] [address] Calcium [Mass/Vol] 8.3 mg/dL Low 8.6-10.3 [facility] Comment on above: Performed By: #### L [id number] #### [facility] ([facility]) [address] [place] [address] Chloride [Moles/Vol] 106 mmol/L Normal 98-107 [facility] Comment on above: Performed By: #### L [id number] #### [facility] ([facility] [address] [place] [address] CO2 [Moles/Vol] 18 mmol/L Low 21-31 [facility] Comment on above: Performed By: #### L [id number] #### [facility] ([facility]) [address] [place] [address] Creatinine [Mass/Vol] 1.83 mg/dL High 0.60-1.20 [facility] Comment on above: Performed By: #### L [id number] #### [facility] ([facility]) [address] [place] [address] GLOMERULAR FILTRATION RATE ML/MIN/1.73 SQ M.PREDICTED 26.2 mL/min/1.73m*2 Low >60.0 [facility] Comment on above: Result Comment: [facility]???s estimated glomerular filtration rate (eGFR) will [...] individuals. Performed By: #### L [id number] #### [facility] ([facility] [address] [place] [address] Glucose [Mass/Vol] 144 mg/dL High 70-100 [facility] Comment on above: Performed By: #### L [id number] #### [facility] ([facility]) [address] [place] [address] Potassium [Moles/Vol] 4.0 mmol/L Normal 3.5-5.1 [facility] Comment on above: Performed By: #### L [id number] #### [facility] ([facility]) [address] [place] [address] Protein [Mass/Vol] 5.9 g/dL Low 6.0-8.3 [facility] Comment on above: Performed By: #### L [id number] #### [facility] ([facility]) [address] [place] [address] Sodium [Moles/Vol] 133 mmol/L Low 136-145 [facility] Comment on above: Performed By: #### L [id number] #### [facility] ([facility]) [address] [place] [address] Urea nitrogen [Mass/Vol] 50 mg/dL High 7-25 [facility] Comment on above: Performed By: #### L [id number] #### [facility] ([facility]) [address] [place] [address] UREA NITROGEN/CREATININE (MASS RATIO) IN SER/PLAS 27.32 Normal [facility] Comment on above: Performed By: #### L [id number] #### [facility] ([facility]) [address] [place] [address] CONSULTon 09-10-2022 CONSULT ----- ----- Attestation signed [...] II/Complete HB. She was transferred over from [facility] due to heart rate in [...] has a past medical history of A-fib ([facility]), Cancer (CMS/HCC), Coronary artery disease, Hypertension, Myocardial infarct (CMS/HCC), and Stroke (CMS/[facility]). Surgical History She has a past surgical [...] preserved EF. (more content not included)... Normal [facility] Covid-19 PCR (CVDTB)on SARS-CoV-2 (COVID-19) RNA SUSAN+probe Ql (Unsp spec) Not detected Normal NOT DETECTED [facility] Comment on above: Result Comment: [...] for this test is supported by the [employer] Monitor of Health and Human Service's declaration that [...] Performed By: #### P T, PTT #### [facility] [address] [place], [place] [address] Dr. Madisyn Bentley FERRITINon 09-10-2022 FERRITIN (NG/ML) IN SER/PLAS 97.0 ng/mL Normal 11.0-307.0 [facility] Comment on above: Performed By: #### L [id number] #### [facility] ([facility] [address] [place] [address] FOLATEon 09-10-2022 FOLATE (NG/ML) IN SER/PLAS 9.99 ng/mL Normal 6.6-1000 [facility] Comment on above: Performed By: #### L [id number] ####[facility] ([facility])[address] [place] [address] HEMOGLOBIN A1Con 09-10-2022 Glucose [Mass/Vol] 136.98 mg/dL Normal [facility] Comment on above: Performed By: #### L [id number] ####[facility] ([facility])[address] [place] [address] HbA1c (Bld) [Mass fraction] 6.4 % High 4.0-6.0 [facility] Comment on above: Performed By: #### L [id number] ####[facility] ([facility])[address] [place] [address] HPon 09-10-2022 HP ----- ----- Attestation signed [...] II/Complete HB. She was transferred over from [facility] due to heart rate in [...] has a past medical history of A-fib ([facility]), Cancer ([facility]/HCC), Coronary artery disease, Hypertension, Myocardial infarct ([facility]/HCC), and Stroke ([facility]/HCC). Surgical History She has a past [...] preserved EF. (more content not included)... Normal [facility] HP ----- ----- Attestation signed by Suzi [...] Parish Age - 77 y.o. - 1945 [id number] Date of Admission - 09/10/2022 11:01 AM Chief Complaint Generalized weakness History of Present Illness Trisha Parish is a 77 y.o. female with a past medical history significant for atrial fibrillation status post maze and left atrial appendage clip, coronary artery disease status post CABG, hypertension, stroke who presented with generalized weakness to [facility]. She presented with 2-day history of exertional shortness of breath and weakness with intermittent palpitations. She stated that her legs felt heavy. She denied any recent changes of medication and illness. Patient states that she does take Plavix daily. She denies any use of anticoagulation. At [facility], EKG demonstarted a 2:1 AV block with prolonged HI interval 266. Chest x-ray demonstrated possible trace [...] heart rate 59. Patient was transferred to [facility] for further evaluation by cardiology. On my evaluation, patient denied chest pain shortness of breath, lightheadedness, dizziness. She did state that she continued to feel weak. Patient arrived while on dopamine infusion. However, heart rate was noted to be in the 30s to 40s. PMH: Patient has a past medical history of A-fib ([facility]), Cancer ([facility]), Coronary artery disease, Hypertension, Myocardial infarct ([facility]), and Stroke ([facility]). PSH: Patient has a past surgical history [...] which specify (more content not included)... Normal [facility] IRON AND TIBCon 09-10-2022 IRON (UG/DL) IN SER/PLAS 27 ug/dL Low 50-212 [facility] Comment on above: Performed By: #### L [id number] #### [facility] ([facility]) [address] [place] [address] IRON BINDING CAPACITY (UG/DL) IN SER/PLAS 203 ug/dL Low 250-450 [facility] Comment on above: Performed By: #### L [id number] #### [facility] ([facility]) [address] [place] [address] IRON BINDING CAPACITY.UNSATURATE D (UG/DL) IN SER/PLAS 176.0 ug/dL Normal 155.0-355.0 [facility] Comment on above: Performed By: #### L [id number] #### [facility] ([facility]) [address] [place] [address] IRON SATURATION (%) IN SER/PLAS 13 % Low 20-50 [facility] Comment on above: Performed By: #### L [id number] #### [facility] ([facility]) [address] [place] [address] MAGNESIUMon 09-10-2022 Magnesium [Mass/Vol] 1.6 mg/dL Low 1.9-2.7 [facility] Comment on above: Performed By: #### L [id number] ####[facility] ([facility])[address] [place] [address] PHOSPHORUSon 09-10-2022 Magnesium [Mass/Vol] 3.1 mg/dL Normal 2.5-5.0 [facility] Comment on above: Performed By: #### L [id number] ####[facility] ([facility])[address] [place] [address] POCT GLUCOSE METER UNSOLICIT ED RESULTSon 09-10-2022 Glucose [Mass/Vol] 152 mg/dL High 70-105 [facility] Comment on above: Result Comment: chito mc Performed By: #### L [id number] #### [facility] [address] [place] [address] Glucose [Mass/Vol] 151 mg/dL High 70-105 [facility] Comment on above: Result Comment: kyleigh haider Performed By: #### L [id number] #### [facility] [address] [place] [address] PROF 14(COMP METB)on 023 Albumin [Mass/Vol] 3.0 g/dL Critically low 3.4-5.0 [facility] Comment on above: Performed By: #### R ENAL #### [facility] [address] [place] [address] [address] Madisyn Bentley Albumin/Globulin [Mass ratio] 0.8 {ratio} Normal [facility] Comment on above: Performed By: #### R ENAL #### [facility] [address] [place] [address] [address] Madisyn Bentley ALP [Catalytic activity/Vol] 113 U/L Normal 46-116 [facility] Comment on above: Performed By: #### R ENAL #### [facility] [address] [place] [address] [address] Madisyn Bentley ALT [Catalytic activity/Vol] 15 U/L Normal 14-59 [facility] Comment on above: Performed By: #### R ENAL #### [facility] [address] [place] [address] Dr. Madisyn Bentley Anion gap [Moles/Vol] 16.4 mmol/L Normal [facility] Comment on above: Performed By: #### R ENAL #### [facility] [address] [place] [address] Dr. Madisyn Bentley AST [Catalytic activity/Vol] 15 U/L Normal 15-37 [facility] Comment on above: Performed By: #### R ENAL #### [facility] [address] [place] [address] Dr. Madisyn Bentley Bilirubin [Mass/Vol] 0.6 mg/dL Normal 0.2-1.0 [facility] Comment on above: Performed By: #### R ENAL #### [facility] [address] [place] [address] Dr. Madisyn Bentley Calcium [Mass/Vol] 8.6 mg/dL Normal 8.5-10.1 [facility] Comment on above: Performed By: #### R ENAL #### [facility] [address] [place] [address] [address] Madisyn Bentley Chloride [Moles/Vol] 102 mmol/L Normal 98-107 [facility] Comment on above: Performed By: #### R ENAL #### [facility] [address] [place] [address] [address] Madisyn Bentley CO2 [Moles/Vol] 18.9 mmol/L Critically low 21.0-32.0 [facility] Comment on above: Performed By: #### R ENAL #### [facility] [address] [place] [address] [address] Madisyn Bentley Creatinine [Mass/Vol] 1.95 mg/dL Critically high 0.55-1.02 [facility] Comment on above: Performed By: #### R ENAL #### [facility] [address] [place] [address] [address] Madisyn Bentley EGFR-AF CUBAN 30 mL/min/1.73m2 Critically low >=60 [facility] Comment on above: Performed By: #### R ENAL #### [facility] [address] [place] [address] Dr. Madisyn Bentley EGFR-NON AF CUBAN 25 mL/min/1.73m2 Critically low >=60 [facility] Comment on above: Performed By: #### R ENAL #### [facility] [address] [place] [address] [address] Madisyn Bentley Globulin (S) [Mass/Vol] 3.7 g/dL Normal [facility] Comment on above: Performed By: #### R ENAL #### [facility] [address] [place] [address] Dr. Madisyn Bentley Glucose [Mass/Vol] 190 mg/dL Critically high 74-106 [facility] Comment on above: Performed By: #### R ENAL #### [facility] [address] [place] [address] [address] Madisyn Bentley Potassium [Moles/Vol] 4.3 mmol/L Normal 3.5-5.1 [facility] Comment on above: Performed By: #### R ENAL #### [facility] [address] [place] [address] [address] Madisyn Bentley Protein [Mass/Vol] 6.7 g/dL Normal 6.4-8.2 [facility] Comment on above: Performed By: #### R ENAL #### [facility] [address] [place] [address] Dr. Madisyn Bentley Sodium [Moles/Vol] 133 mmol/L Critically low 136-145 Th [facility] Comment on above: Performed By: #### R ENAL #### [facility] [address] [place] [address] Dr. Madisyn Bentley Urea nitrogen [Mass/Vol] 51.0 mg/dL Critically high 7.0-18.0 [facility] Comment on above: Performed By: #### R ENAL #### [facility] [address] [place] [address] Dr. Madisyn Bentley Urea nitrogen/Creatinine [Mass ratio] 26.2 mg/mg Normal [facility] Comment on above: Performed By: #### R ENAL #### [facility] [address] [place] [address] Dr. Madisyn Bentley PROTIMEon 09-10-2022 INR Coag (PPP) [Relative time] 1.20 {INR} Normal [facility] Comment on above: Performed By: #### P T, PTT #### [facility] [address] [place] [address] Dr. Madisyn Bentley INR GUIDELINES SEE BELOW Normal [facility] Comment on above: Result Comment: ROMY RED INR: 2.0 - 3.0 CONDITIONS NOT LISTED BELOW 2.5 - 3.5 FOR PROSTHETIC HEART VALVE REPLACEMENT 2.5 - 3.5 RECURRENT THROMBOSIS Performed By: #### P T, PTT #### [facility] [address] [place] [address] Dr. Madisyn Bentley PT Coag (PPP) [Time] 12.6 s Critically high 9.0-11.6 [facility] Comment on above: Performed By: #### P T, PTT #### [facility] [address] [place] [address] Dr. Madisyn Bentley PROTIME-INRon 09-10-2022 INR IN PPP BY COAGULATION ASSAY 1.36 High 0.90-1.10 [facility] Comment on above: Result Comment: ACCC [...] CHEST 1995;108:[id number]. Performed By: #### L [id number] ####[facility] ([facility])[address] [place] [address] PROTHROMBIN TIME (PT) IN PPP BY COAGULATION ASSAY 16.6 Seconds High 12.3-14.8 [facility] Comment on above: Performed By: #### L [id number] ####[facility] ([facility])[address] [place] [address] PTTon 09-10-2022 aPTT Coag (Bld) [Time] 36.0 s Normal 22.3-36.2 [facility] Comment on above: Performed By: #### P T, PTT #### [facility] [address] [place] [address] Dr. Madisyn Bentley T4, FREEon 09-10-2022 THYROXINE (T4) FREE (NG/DL) IN SER/PLAS 1.36 ng/dL Normal 0.71-1.85 [facility] Comment on above: Performed By: #### L [id number] ####[facility] ([facility])[address] [place] [address] TROPONIN Ion 09-10-2022 Troponin I.cardiac [Mass/Vol] 0.03 ng/mL Normal 0.00-0.04 [facility] Comment on above: Performed By: #### L [id number] #### [facility] ([facility]) [address] [place] [address] TROPONIN, HIGH SENSITIVITYon 09-10-2022 HSTROP 79.4 pg/mL Critically high 4.0-51.3 [facility] Comment on above: Result Comment: CUT- OFF POINTS HAVE BEEN ESTABLISHED BASED ON THE FOURTH UNIVERSAL DEFINITIONS OF MYOCARDIAL INFARCTION. THE UPPER REFERENCE LIMIT (URL) OF TROPONIN, DEFINED THE 99TH PERCENTILE OF cTnI DISTRIBUTION IN A REFERENCE POPULATION, HAS BEEN CONFIRMED THE DECISION THRESHOLD FOR CO DIAGNOSIS. Performed By: #### B REFINING ENGINEER, HSTROPN #### [facility] [address] [place] [address] Dr. Madisyn Bentley TSH3 REFLEX TO FT4on 023 THYROTROPIN (MIU/L) IN SER/PLAS BY DETECTION LIMIT <= 0.05 MIU/L 6.40 mIU/L High 0.34-5.60 [facility] Comment on above: Performed By: #### L [id number] #### [facility] ([facility]) [address] [place] [address] VITAMIN B12on 09-10-2022 Cobalamin (Vitamin B12) [Mass/Vol] 177 pg/mL Low 180-914 [facility] Comment on above: Result Comment: REFE RENCE RANGES: 180-914 pg/mL Normal 145-179 pg/mL Indeterminate <145 pg/mL Deficient Performed By: #### L [id number] #### [facility] ([facility]) [address] [place] [address] XR CHEST 1 Von 09-10-2022 XR CHEST [...] Kelli FLANNERY Date: 2022-09-10 04:58 Normal [facility] GLYCOHEMOGLOBIN A1Con 2021 ADA RECOMMENDATION SEE BELOW Normal [facility] Comment on above: Result Comment: ADA RECOMMENDED LIMIT 4.0 - 6.0 ADA THERAPEUTIC TARGET < 7.0 ACTION SUGGESTED > 7.0 Performed By: #### P T, PTT #### [facility] [address] [place], [place] [address] Dr. Madisyn Bentley Glucose [Mass/Vol] 186 mg/dL Normal [facility] Comment on above: Performed By: #### P T, PTT #### [facility] [address] [place], [place] [address] Dr. Madisyn Bentley HbA1c (Bld) [Mass fraction] 8.1 % Critically high 4.5-6.2 [facility] Comment on above: Performed By: #### P T, PTT #### [facility] [address] [place], [place] [address] Dr. Madisyn Bentley US THYROIDon 05-24-2022 US [...] Date: 2022-05-24 12:24 Normal [facility] MAMM SCREEN RT 3D CADon 1 MG MAMM SCREEN RT 3D CAD Patient: TRISHA PARISH Exam Date: 05/23/2022 : 1945 Gender:F Ordering : DR SANYA TINEO M.D. Admission #: [id number] Family : Order #: [id number] CLICK HERE TO VIEW EXAM RADIOLOGY REPORT [...] and chemotherapy Family Cancers None LOCATION: [facility] BREAST COMPOSITION: Scattered areas fibroglandular [...] Hilario M.D. on 05/23/2022 at 10:38 Normal [facility] XR DEXA BONE DENSITYon 05-23 XR DEXA [...] DIAMOND HILARIO Date: 2022-05-23 19:25 Normal [facility] CBC AUTO DIFFon 05-16-2022 BASO # 0.0 103/ul Normal 0.0-0.1 [facility] Comment on above: Performed By: #### C BC #### [facility] [address] [place] [address] [address] Madisyn Bentley Basophils/100 WBC (Bld) 0.4 % Normal 0.2-2.0 [facility] Comment on above: Performed By: #### C BC #### [facility] [address] [address] [address] Madisyn Bentley EO # 0.3 103/ul Normal 0.0-0.7 [facility] Comment on above: Performed By: #### C BC #### [facility] [address] [address] [address] Madisyn Bentley Eosinophils/100 WBC (Bld) 4.5 % Normal 0.9-7.0 [facility] Comment on above: Performed By: #### C BC #### [facility] [address] [address] [address] Madisyn Bentley Erythrocyte distribution width (RBC) [Ratio] 13.1 % Normal 11.0-15.0 [facility] Comment on above: Performed By: #### C BC #### [facility] [address] [address] [address] Madisyn Bentley Hematocrit (Bld) [Volume fraction] 37.9 % Normal 36.0-48.0 [facility] Comment on above: Performed By: #### C BC #### [facility] [address] [place] [address] Dr. Madisyn Bentley Hemoglobin (Bld) [Mass/Vol] 12.4 g/dL Normal 12.0-16.0 [facility] Comment on above: Performed By: #### C BC #### [facility] [address] [place] [address] Dr. Madisyn Bentley IG # 0.02 10e3/ul Normal 0.00-0.03 [facility] Comment on above: Performed By: #### C BC #### [facility] [address] [place] [address] Dr. Madisyn Bentley IG % 0.3 % Normal 0.0-0.5 [facility] Comment on above: Performed By: #### C BC #### [facility] [address] [place] [address] Dr. Madisyn Bentley LYMPH # 1.6 103/ul Normal 1.2-3.8 [facility] Comment on above: Performed By: #### C BC #### [facility] [address] [place] [address] Dr. Madisyn Bentley Lymphocytes/100 WBC (Bld) 22.0 % Normal 20.5-60.0 [facility] Comment on above: Performed By: #### C BC #### [facility] [address] [place] [address] Dr. Madisyn Bentley MANUAL DIFF REQ NO Normal [facility] Comment on above: Performed By: #### C BC #### [facility] [address] [place] [address] Dr. Madisyn Bentley MCH (RBC) [Entitic mass] 29.4 pg Normal 26.7-34.0 [facility] Comment on above: Performed By: #### C BC #### [facility] [address] [place] [address] Dr. Madisyn Bentley MCHC (RBC) [Mass/Vol] 32.7 g/dL Normal 29.9-35.2 [facility] Comment on above: Performed By: #### C BC #### [facility] [address] [place] [address] Dr. Madisyn Bentley MCV (RBC) [Entitic vol] 89.8 fL Normal 81.0-99.0 [facility] Comment on above: Performed By: #### C BC #### [facility] [address] [place] [address] Dr. Madisyn Bentley MONO # 0.5 103/ul Normal 0.3-0.8 [facility] Comment on above: Performed By: #### C BC #### [facility] [address] [place] [address] Dr. Madisyn Bentley Monocytes/100 WBC (Bld) 7.3 % Normal 1.7-12.0 [facility] Comment on above: Performed By: #### C BC #### [facility] [address] [place] [address] Dr. Madisyn Bentley NEUT # 4.9 103/ul Normal 1.4-6.5 [facility] Comment on above: Performed By: #### C BC #### [facility] [address] [place] [address] Dr. Madisyn Bentley Neutrophils/100 WBC (Bld) 65.5 % Normal 43.0-75.0 [facility] Comment on above: Performed By: #### C BC #### [facility] [address] [place] [address] Dr. Madisyn Bentley Platelet mean volume (Bld) [Entitic vol] 12.1 fL Normal 9.5-13.5 [facility] Comment on above: Performed By: #### C BC #### [facility] [address] [place] [address] Dr. Madisyn Bentley PLT 171 103/ul Normal 150-450 [facility] Comment on above: Performed By: #### C BC #### [facility] [address] [place] [address] Dr. Madisyn Bentley RBC 4.22 106/ul Normal 4.20-5.40 [facility] Comment on above: Performed By: #### C BC #### [facility] [address] [place] [address] Dr. Madisyn Bentley WBC 7.4 103/ul Normal 4.0-11.0 [facility] Comment on above: Performed By: #### C BC #### [facility] [address] [place], [place] [address] Dr. Madisyn Bentley LIPID PROFILEon 05-16-2022 CHOL-HDL RATIO NORM SEE BELOW Normal [facility] Comment on above: Result Comment: 3.3 - 4.4 LOW RISK 4.4 - 7.1 AVERAGE RISK 7.1 - 11.0 MODERATE RISK >11.0 HIGH RISK Performed By: #### P T, PTT #### [facility] [address] [place], [place] [address] Dr. Madisyn Bentley Cholesterol [Mass/Vol] 132 mg/dL Normal <=200 [facility] Comment on above: Performed By: #### P T, PTT #### [facility] [address] [address] [address] Madisyn Bentley Cholesterol in HDL [Mass/Vol] 44 mg/dL Normal 40-60 [facility] Comment on above: Performed By: #### P T, PTT #### [facility] [address] [place], [place] [address] Dr. Madisyn Bentley Cholesterol in LDL [Mass/Vol] 59.6 mg/dL Normal [facility] Comment on above: Performed By: #### P T, PTT #### [facility] [address] [place], [place] [address] Dr. Madisyn Bentley Cholesterol.total/C holesterol in HDL [Mass ratio] 3.0 {ratio} Normal [facility] Comment on above: Performed By: #### P T, PTT #### [facility] [address] [place], [place] [address] Dr. Madisyn Bentley HDL NORMAL > or = 60 mg/dl - LO W CARDIOVASCULAR RISK <40 mg/dl - HIGH CARDIOVASCULAR RISK Normal [facility] Comment on above: Performed By: #### P T, PTT #### [facility] [address] [place], [place] [address] Dr. Madisyn Bentley LDL CALC NORMAL SEE BELOW Normal [facility] Comment on above: Result Comment: <100 mg/dl OPTIMAL 100 - 129 mg/dl NEAR OR ABOVE OPTIMAL 130 - 159 mg/dl BORDERLINE HIGH 160 - 189 mg/dl HIGH >190 mg/dl VERY HIGH Performed By: #### P T, PTT #### [facility] [address] [place] [address] Dr. Madisyn Bentley Triglyceride [Mass/Vol] 142 mg/dL Normal <=150 [facility] Comment on above: Performed By: #### P T, PTT #### [facility] [address] [place] [address] Dr. Madisyn Bentley VLDL CALC 28.4 mg/dL Normal [facility] Comment on above: Performed By: #### P T, PTT #### [facility] [address] [place] [address] Dr. Madisyn Bentley PROF 14(COMP METB)on 022 Albumin [Mass/Vol] 3.8 g/dL Normal 3.4-5.0 [facility] Comment on above: Performed By: #### P T, PTT #### [facility] [address] [place] [address] Dr. Madisyn Bentley Albumin/Globulin [Mass ratio] 1.1 {ratio} Normal [facility] Comment on above: Performed By: #### P T, PTT #### [facility] [address] [place] [address] Dr. Madisyn Bentley ALP [Catalytic activity/Vol] 158 U/L Critically high 46-116 [facility] Comment on above: Performed By: #### P T, PTT #### [facility] [address] [place] [address] Dr. Madisyn Bentley ALT [Catalytic activity/Vol] 24 U/L Normal 14-59 [facility] Comment on above: Performed By: #### P T, PTT #### [facility] [address] [place] [address] Dr. Madisyn Bentley Anion gap [Moles/Vol] 14.1 mmol/L Normal [facility] Comment on above: Performed By: #### P T, PTT #### [facility] [address] [place] [address] Dr. Madisyn Bentley AST [Catalytic activity/Vol] 12 U/L Critically low 15-37 [facility] Comment on above: Performed By: #### P T, PTT #### [facility] [address] [address] [address] Madisyn Bentley Bilirubin [Mass/Vol] 0.7 mg/dL Normal 0.2-1.0 [facility] Comment on above: Performed By: #### P T, PTT #### [facility] [address] [place] [address] Dr. Madisyn Bentley Calcium [Mass/Vol] 8.9 mg/dL Normal 8.5-10.1 [facility] Comment on above: Performed By: #### P T, PTT #### [facility] [address] [place] [address] Dr. Madisyn Bentley Chloride [Moles/Vol] 105 mmol/L Normal 98-107 [facility] Comment on above: Performed By: #### P T, PTT #### [facility] [address] [place] [address] Dr. Madisyn Bentley CO2 [Moles/Vol] 23.4 mmol/L Normal 21.0-32.0 [place] Comment on above: Performed By: #### P T, PTT #### [facility] [address] [place] [address] Dr. Madisyn Bentley Creatinine [Mass/Vol] 1.64 mg/dL Critically high 0.55-1.02 [facility] Comment on above: Performed By: #### P T, PTT #### [facility] [address] [place] [address] Dr. Madisyn Bentley EGFR-AF CUBAN 37 mL/min/1.73m2 Critically low >=60 [facility] Comment on above: Performed By: #### P T, PTT #### [facility] [address] [place] [address] Dr. Madisyn Bentley EGFR-NON AF CUBAN 30 mL/min/1.73m2 Critically low >=60 [facility] Comment on above: Performed By: #### P T, PTT #### [facility] [address] [place] [address] Dr. Madisyn Bentley Globulin (S) [Mass/Vol] 3.5 g/dL Normal [facility] Comment on above: Performed By: #### P T, PTT #### [facility] [address] [place] [address] Dr. Madisyn Bentley Glucose [Mass/Vol] 222 mg/dL Critically high 74-106 [facility] Comment on above: Performed By: #### P T, PTT #### [facility] [address] [place] [address] Dr. Madisyn Bentley Potassium [Moles/Vol] 4.5 mmol/L Normal 3.5-5.1 [facility] Comment on above: Performed By: #### P T, PTT #### [facility] [address] [place] [address] Dr. Madisyn Bentley Protein [Mass/Vol] 7.3 g/dL Normal 6.4-8.2 [facility] Comment on above: Performed By: #### P T, PTT #### [facility] [address] [place] [address] Dr. Madisyn Bentley Sodium [Moles/Vol] 138 mmol/L Normal 136-145 [facility] Comment on above: Performed By: #### P T, PTT #### [facility] [address] [place] [address] Dr. Madisyn Bentley Urea nitrogen [Mass/Vol] 35.0 mg/dL Critically high 7.0-18.0 [facility] Comment on above: Performed By: #### P T, PTT #### [facility] [address] [place] [address] Dr. Madisyn Bentley Urea nitrogen/Creatinine [Mass ratio] 21.3 mg/mg Normal [facility] Comment on above: Performed By: #### P T, PTT #### [facility] [address] [place] [address] Dr. Madisyn Bentley RENAL FUNCTION PANELon 04-07 Albumin [Mass/Vol] 3.5 g/dL Normal 3.4-5.0 [facility] Comment on above: Performed By: #### R ENAL #### [facility] [address] [address] [address] Madisyn Bentley Calcium [Mass/Vol] 8.1 mg/dL Critically low 8.5-10.1 [facility] Comment on above: Performed By: #### R ENAL #### [facility] [address] [address] [address] Madisyn Bentley Chloride [Moles/Vol] 110 mmol/L Critically high 98-107 [facility] Comment on above: Performed By: #### R ENAL #### [facility] [address] [address] [address] Madisyn Bentley CO2 [Moles/Vol] 20.2 mmol/L Critically low 21.0-32.0 [facility] Comment on above: Performed By: #### R ENAL #### [facility] [address] [place] [address] Dr. Madisyn Bentley Creatinine [Mass/Vol] 1.89 mg/dL Critically high 0.55-1.02 [facility] Comment on above: Performed By: #### R ENAL #### [facility] [address] [address] [address] Madisyn Bentley EGFR-AF CUBAN 31 mL/min/1.73m2 Critically low >=60 [facility] Comment on above: Performed By: #### R ENAL #### [facility] [address] [place] [address] Dr. Madisyn Bentley EGFR-NON AF CUBAN 26 mL/min/1.73m2 Critically low >=60 [facility] Comment on above: Performed By: #### R ENAL #### [facility] [address] [address] [address] Madisyn Bentley Glucose [Mass/Vol] 149 mg/dL Critically high 74-106 [facility] Comment on above: Performed By: #### R ENAL #### [facility] [address] [place] [address] Dr. Madisyn Bentley Phosphate [Mass/Vol] 3.4 mg/dL Normal 2.6-4.7 [facility] Comment on above: Performed By: #### R ENAL #### [facility] [address] [place] [address] Dr. Madisyn Bentley Potassium [Moles/Vol] 4.5 mmol/L Normal 3.5-5.1 [facility] Comment on above: Performed By: #### R ENAL #### [facility] [address] [place] [address] Dr. Madisyn Bentley Sodium [Moles/Vol] 141 mmol/L Normal 136-145 [facility] Comment on above: Performed By: #### R ENAL #### [facility] [address] [place] [address] Dr. Madisyn Bentley Urea nitrogen [Mass/Vol] 34.0 mg/dL Critically high 7.0-18.0 [facility] Comment on above: Performed By: #### R ENAL #### [facility] [address] [place] [address] Dr. Madisyn Bentley UA RANDOMon 04-07-2022 Bilirubin Ql (U) Negative Normal NEGATIVE [place] Comment on above: Performed By: #### U A #### [facility] [address] [place] [address] Dr. Madisyn Bentley Clarity (U) CLEAR Normal CLEAR [facility] Comment on above: Performed By: #### U A #### [facility] [address] [place] [address] Dr. Madisyn Bentley Color (U) LT. YELLOW Normal YELLOW [facility] Comment on above: Performed By: #### U A #### [facility] [address] [place] [address] Dr. Madisyn Bentley Glucose Ql (U) Negative Normal NEGATIVE [facility] Comment on above: Performed By: #### U A #### [facility] [address] [place] [address] Dr. Madisyn Bentley Hemoglobin Ql (U) Negative Normal NEGATIVE [facility] Comment on above: Performed By: #### U A #### [facility] [address] [place] [address] Dr. Madisyn Bentley Ketones Ql (U) Negative Normal NEGATIVE [facility] Comment on above: Performed By: #### U A #### [facility] [address] [place] [address] Dr. Madisyn Bentley LEUKOCYTES TRACE Abnormal NEGATIVE [facility] Comment on above: Performed By: #### U A #### [facility] [address] [place] [address] Dr. Madisyn Bentley Nitrite Ql (U) Negative Normal NEGATIVE [facility] Comment on above: Performed By: #### U A #### [facility] [address] [place] [address] Dr. Madisyn Bentley pH (U) 5.5 [pH] Normal 5-9 [facility] Comment on above: Performed By: #### U A #### [facility] [address] [place] [address] Dr. Madisyn Bentley SPEC GRAVITY 1.020 Normal 1.005-<=1.[address] [place] [address] Comment on above: Performed By: #### U A #### [facility] [address] [place] [address] Dr. Madisyn Bentley UA PROTEIN Negative Normal NEGATIVE/ TRACE [facility] Comment on above: Performed By: #### U A #### [facility] [address] [place] [address] Dr. Madisyn Bentley Urobilinogen Qn (U) 0.2 {Luis Eduardo'U}/dL Normal 0.2 - 1. 0 [facility] Comment on above: Performed By: #### U A #### [facility] [address] [place] [address] Dr. Madisyn Bentley URINE T PROTEIN CREAT RATIOo n 04-07-2022 Protein (U) [Mass/Vol] 25.7 mg/dL Critically high <=12.0 [facility] Comment on above: Performed By: #### P T, PTT #### [facility] [address] [place] [address] Dr. Madisyn Bentley UR PROT CREAT RAT 0.29 Normal [facility] Comment on above: Performed By: #### P T, PTT #### [facility] [address] [place] [address] Dr. Madisyn Bentley URINE CREAT 89.48 mg/dL Normal 20.00-300.00 [facility] Comment on above: Performed By: #### P T, PTT #### [facility] [address] [address] [address] Madisyn Bentley RENAL FUNCTION PANELon 11-25 Albumin [Mass/Vol] 3.7 g/dL Normal 3.4-5.0 [facility] Comment on above: Performed By: #### R ENAL #### [facility] [address] [address] [address] Madisyn Bentley Calcium [Mass/Vol] 8.6 mg/dL Normal 8.5-10.1 [facility] Comment on above: Performed By: #### R ENAL #### [facility] [address] [address] [address] Madisyn Bentley Chloride [Moles/Vol] 107 mmol/L Normal 98-107 [facility] Comment on above: Performed By: #### R ENAL #### [facility] [address] [place] [address] Dr. Madisyn Bentley CO2 [Moles/Vol] 23.3 mmol/L Normal 22.0-30.0 [place] Comment on above: Performed By: #### R ENAL #### [facility] [address] [address] [address] Madisyn Bentley Creatinine [Mass/Vol] 1.56 mg/dL Critically high 0.55-1.02 [facility] Comment on above: Performed By: #### R ENAL #### [facility] [address] [address] [address] Madisyn Bentley EGFR-AF CUBAN 39 mL/min/1.73m2 Critically low >=60 [facility] Comment on above: Performed By: #### R ENAL #### [facility] [address] [address] [address] Madisyn Bentley EGFR-NON AF CUBAN 32 mL/min/1.73m2 Critically low >=60 [facility] Comment on above: Performed By: #### R ENAL #### [facility] [address] [address] [address] Madisyn Bentley Glucose [Mass/Vol] 106 mg/dL Normal 74-106 [facility] Comment on above: Performed By: #### R ENAL #### [facility] [address] [place] [address] Dr. Madisyn Bentley Phosphate [Mass/Vol] 3.8 mg/dL Normal 2.5-4.5 [facility] Comment on above: Performed By: #### R ENAL #### [facility] [address] [place] [address] Dr. Madisyn Bentley Potassium [Moles/Vol] 4.5 mmol/L Normal 3.4-5.0 [facility] Comment on above: Performed By: #### R ENAL #### [facility] [address] [place] [address] Dr. Madisyn Bentley Sodium [Moles/Vol] 141 mmol/L Normal 137-145 [facility] Comment on above: Performed By: #### R ENAL #### [facility] [address] [place] [address] Dr. Madisyn Bentley Urea nitrogen [Mass/Vol] 27.0 mg/dL Critically high 7.0-18.0 [facility] Comment on above: Performed By: #### R ENAL #### [facility] [address] [place] [address] Dr. Madisyn Bentley UA RANDOMon 11-25-2021 Bilirubin Ql (U) Negative Normal NEGATIVE [facility] Comment on above: Performed By: #### P T, PTT #### [facility] [address] [place] [address] Dr. Madisyn Bentley Clarity (U) CLEAR Normal CLEAR [facility] Comment on above: Performed By: #### P T, PTT #### [facility] [address] [place] [address] Dr. Madisyn Bentley Color (U) LT. YELLOW Normal YELLOW [facility] Comment on above: Performed By: #### P T, PTT #### [facility] [address] [place] [address] Dr. Madisyn Bentley Glucose Ql (U) Negative Normal NEGATIVE [facility] Comment on above: Performed By: #### P T, PTT #### [facility] [address] [place] [address] Dr. Madisyn Bentley Hemoglobin Ql (U) Negative Normal NEGATIVE [facility] Comment on above: Performed By: #### P T, PTT #### [facility] [address] [address] [address] Maidsyn Bentley Ketones Ql (U) Negative Normal NEGATIVE [facility] Comment on above: Performed By: #### P T, PTT #### [facility] [address] [place] [address] Dr. Madisyn Bentley LEUKOCYTES Negative Normal NEGATIVE [facility] Comment on above: Performed By: #### P T, PTT #### [facility] [address] [place] [address] Dr. Madisyn Bentley Nitrite Ql (U) Negative Normal NEGATIVE [facility] Comment on above: Performed By: #### P T, PTT #### [facility] [address] [place] [address] Dr. Madisyn Bentley pH (U) 5.5 [pH] Normal 5-9 [facility] Comment on above: Performed By: #### P T, PTT #### [facility] [address] [place] [address] Dr. Madisyn Bentley SPEC GRAVITY 1.015 Normal 1.005-<=1.02 5 [facility] Comment on above: Performed By: #### P T, PTT #### [facility] [address] [place] [address] Dr. Madisyn Bentley UA PROTEIN Negative Normal NEGATIVE/ TRACE [facility] Comment on above: Performed By: #### P T, PTT #### [facility] [address] [place] [address] Dr. Madisyn Bentley Urobilinogen Qn (U) 0.2 {Luis Eduardo'U}/dL Normal 0.2 - 1. 0 [facility] Comment on above: Performed By: #### P T, PTT #### [facility] [address] [place] [address] Dr. Madisyn Bentley URINE T PROTEIN CREAT RATIOo n 11-25-2021 Protein (U) [Mass/Vol] 20.5 mg/dL Critically high <=12.0 [facility] Comment on above: Performed By: #### U RTPCR #### [facility] [address] [place] [address] Dr. Madisyn Bentley UR PROT CREAT RAT 0.25 Normal [facility] Comment on above: Performed By: #### U RTPCR #### [facility] [address] [place] [address] Dr. Madisyn Bentley URINE CREAT 81.12 mg/dL Normal 20.00-300.00 [facility] Comment on above: Performed By: #### U RTPCR #### [facility] [address] [place] [address] Dr. 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 CLIA Number: [id number] Normal [facility] Comment on above: Performed By: #### C #### See report for performing lab information. CNOVSPon 04-15-2018 CNOVSP Visit (SP) Office (HEMACL) JEMTRISHA ([id number]) 1945 FDate Time Provider Department04/15/18 2:15 PM ROXANN ONEAL HEMACL During your visit today, we recorded the following information about you: Temperature Pulse Respiration Blood pressure 98.2 degrees 66/minute 16/minute 147/69 Weight Height 80.9 kg 1.626 mMINDY OLIVE ONEAL PA-C 04/15/2018 3:44 PM SignedPatient: Trisha Jem [facility] 1945 [facility]: Dr. Sadi Nolan: April [...] of lymph node dissection. 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 Ultimately the patient had to [...] questions or concernsJORDON SHAY-CReferring Provider: SADI WALLACE [[id number]]Allergies As of Date: 04/15/2018(No Known Allergies)Date Reviewed: 04/15/2018Reviewed by: Roxann Oneal - Fully AssessedReason for Visit: Breast Cancer [519] Cmt: follow upPrimary Visit Diagnosis:Malignant neoplasm of left breast in female, estrogen receptor positive, unspecified site of breast (HCC) [C50.912, Z17.0]Order(s):[facility] DIAGNOSTIC RT [[id number]] Order #: [id number] FUTUREDisposition: Return in about 1 year (around [...] FOR*Encounter Status:Closed by ROXANN ONEAL on 04/15/18 [facility] PROGRESSon 04-15-2018 Protein mass conc HNO ID: [id number] thor: Roxann Puenteice: (none)Author Type: Physician AssistantType: Progress NotesFiled: 04/15/2018 3:44 PMNote Text:Patient: Trisha Parish Location: [facility]: 1945 Attending Physician: Dr. Sadi Sotoate: April [...] time of lymph node dissection. The tumor wasER/HI positive, HER-2 positve. Ultimately the patient had [...] with questions or concernsROXANN ONEAL PA-C Normal [facility] MAMM OUTSIDE DICOM IMPORT -N BNRon 04-05-2018 MAMM OUTSIDE DICOM IMPORT -NBNR Images were obtained outside of [facility] [id number] Normal [facility] Vital Signs Date Time Vital Sign Value Performing Clinician Facility 07-17-2023 11:00-0500 Body height 153.67 cm Sanya Tinoe Other [facility] [employer] Other 07-17-2023 11:00-0500 Body mass index (BMI) [Ratio] 28.5 kg/m2 Sanya Tineo Other [facility] Other 07-17-2023 11:00-0500 Body weight 67.31 kg Sanya Tineo Other [facility] [employer] Other 07-17-2023 11:00-0500 Diastolic blood pressure 65 mm[Hg] Sanya Tineo Other [facility] Other 07-17-2023 11:00-0500 Systolic blood pressure 121 mm[Hg] Sanya Tineo Other [facility] Other 05-11-2023 11:30-0400 Body height 153.67 cm Sanya Tineo Other [facility] Other 05-11-2023 11:30-0400 Body mass index (BMI) [Ratio] 27.27 kg/m2 Sanya Tineo Other [facility] [employer] Other 05-11-2023 11:30-0400 Body weight 64.41 kg Sanya Tineo Other [facility] Other 05-11-2023 11:30-0400 Diastolic blood pressure 61 mm[Hg] Sanya Tineo Other [facility] [employer] Other 05-11-2023 11:30-0400 SaO2% (BldA) [Mass fraction] 97 % Sanya Tineo Other [facility] [employer] Other 05-11-2023 11:30-0400 Systolic blood pressure 107 mm[Hg] Sanya Tineo Other [facility] Other 04-17-2023 10:45-0400 Body height 153.67 cm Sanya Tineo Other [facility] [employer] Other 04-17-2023 10:45-0400 Body mass index (BMI) [Ratio] 27.89 kg/m2 Sanya Tineo Other [facility] [employer] Other 04-17-2023 10:45-0400 Body weight 65.86 kg Sanya Tineo Other [facility] [employer] Other 04-17-2023 10:45-0400 Diastolic blood pressure 72 mm[Hg] Sanya Tineo Other [facility] [employer] Other 04-17-2023 10:45-0400 Respiratory rate 12 /min Sanya Tineo Other [facility] [employer] Other 04-17-2023 10:45-0400 Systolic blood pressure 133 mm[Hg] Sanya Tineo Other [facility] [employer] Other 02-09-2023 11:00-0400 Body height 153.67 cm Sanya Tineo Other [facility] [employer] Other 02-09-2023 11:00-0400 Body mass index (BMI) [Ratio] 27.47 kg/m2 Sanya Tineo Other [facility] [employer] Other 02-09-2023 11:00-0400 Body weight 64.86 kg Sanya Tineo Other [facility] [employer] Other 02-09-2023 11:00-0400 Diastolic blood pressure 62 mm[Hg] Sayna Tineo Other [facility] [employer] Other 02-09-2023 11:00-0400 SaO2% (BldA) [Mass fraction] 98 % Sanya Tineo Other [facility] [employer] Other 02-09-2023 11:00-0400 Systolic blood pressure 125 mm[Hg] Sanya Tineo Other [facility] [employer] Other 09-08-2022 11:30-0500 Body height 153.67 cm Sanya Tineo Other [facility] [employer] Other 09-08-2022 11:30-0500 Body mass index (BMI) [Ratio] 29.77 kg/m2 Sanya Tineo Other [facility] [employer] Other 09-08-2022 11:30-0500 Body weight 70.31 kg Sanya Tineo Other [facility] Other 02-03-2023 11:30-0500 Diastolic blood pressure 58 mm[Hg] Sanya Tineo Other [facility] Other 09-08-2022 11:30-0500 SaO2% (BldA) [Mass fraction] 97 % Sanya Tineo Other [facility] [employer] Other 09-08-2022 11:30-0500 Systolic blood pressure 110 mm[Hg] Sanya Tineo Other [facility] Other Encounters Encounter Date Encounter Type Care Provider Facility Start: 10-19-2023 End: 10-19-2023 ambulatory DIRK ONEILL Not Available Start: 10-03-2023 End: 10-03-2023 ambulatory JENNIFER H TIMMIS Not Available Start: 08-28-2023 End: 08-28-2023 ambulatory DIRK ONEILL Not Available Start: 08-28-2023 End: 08-28-2023 Patient encounter procedure Dirk Oneill DO Work Phone: [facility] Comment on above: 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) Start: 08-21-2023 End: 08-21-2023 ambulatory DIRK ONEILL Not Available Start: 07-24-2023 End: 07-24-2023 ambulatory JENNIFER H TIMMIS Not Available Start: 07-17-2023 End: 07-17-2023 ambulatory Sanya Tineo Other [employer] Other Start: 07-17-2023 Patient encounter procedure Sanya wadsworth [facility] Start: 07-10-2023 End: 07-10-2023 ambulatory DOE SOTO [facility] Start: 05-18-2023 End: 05-18-2023 ambulatory [facility] Start: 05-11-2023 End: 05-11-2023 ambulatory Sanya Tineo Other [employer] Other Start: 05-11-2023 Office outpatient vi sit 15 minutes Sanya Tineo [facility] Start: 05-09-2023 Telephone encounter Sanya Rivka [facility] Start: 05-09-2023 End: 05-10-2023 ambulatory MARGARET ALVAREZ [employer] Other Start: 05-08-2023 End: 05-08-2023 ambulatory Sanya Tineo Other [employer] Other Start: 05-08-2023 Telephone encounter Sanya Rivka [facility] Start: 04-17-2023 End: 04-17-2023 ambulatory Sanya Tineo Other [employer] Other Start: 04-17-2023 Office outpatient vi sit 15 minutes Sanya Tineo [facility] Start: 04-11-2023 End: 04-11-2023 ambulatory [facility] Start: 04-04-2023 Evaluation and manag ement of inpatient [facility] Start: 04-03-2023 End: 04-04-2023 Encounter for preprocedural cardiovascular examination [facility] Start: 04-03-2023 End: 04-04-2023 Evaluation and management of inpatient [facility] Start: 2023 End: 2023 ambulatory [facility] Start: 02-23-2023 End: 02-24-2023 ambulatory MARGARET ALVAREZ [facility] Start: 02-21-2023 End: 02-21-2023 [facility] Start: 02-18-2023 End: 02-20-2023 Evaluation and management of inpatient Jailene Quesada Facility:[facility] Start: 02-09-2023 End: 02-09-2023 ambulatory Sanya Tineo Other [employer] Other Start: 02-09-2023 Office outpatient vi sit 25 minutes Sanya Tineo [facility] Start: 02-07-2023 Evaluation and manag ement of inpatient MARGARET ALVAREZ [facility] Start: 02-05-2023 Evaluation and manag ement of inpatient [facility] Start: 02-05-2023 Evaluation and manag ement of inpatient [facility] Start: 02-05-2023 End: 02-07-2023 Evaluation and management of inpatient [facility] Start: 01-23-2023 End: 01-23-2023 ambulatory [facility] Start: 01-17-2023 End: 01-17-2023 ambulatory [facility] Start: 12-05-2022 End: 12-05-2022 ambulatory Sanya Tineo Other [employer] Other Start: 12-05-2022 Telephone encounter Sanya Tineo [facility] Start: 12-04-2022 End: 12-04-2022 ambulatory Sanya Tineo Other [employer] Other Start: 12-04-2022 Telephone encounter Sanya Tineo [facility] Start: 10-24-2022 End: 10-24-2022 ambulatory DOE [facility] Start: 10-06-2022 End: 10-07-2022 ambulatory SHARITA KHAN Facility:[facility] Start: 10-06-2022 Encounter for prepro cedural cardiovascular examination [facility] Start: 09-20-2022 End: 09-20-2022 [facility] Start: 09-12-2022 Evaluation and manag ement of inpatient MIKAYLA MONCADA [facility] Start: 09-12-[address] SANYA TINEO Facil ity:[facility] Start: 09-11-2022 Evaluation and manag ement of inpatient [facility] Start: 09-10-2022 Evaluation and manag ement of inpatient YOUNGSOOK DINORA [facility] Start: 09-10-2022 End: 09-12-2022 Evaluation and management of inpatient MICHELE GOLDSMITH [facility] Start: 09-10-2022 End: 09-10-[address] MICHELE GOLDSMITH . Facility:[facility] Start: 09-08-2022 End: 09-08-2022 ambulatory Sanya Tineo Other [employer] Other Start: 09-08-2022 Office outpatient vi sit 25 minutes Sanya Tineo [facility] Start: 06-03-2022 End: 06-04-[address] SANYA TINEO Facility:[facility] Start: 05-23-2022 End: 05-24-2022 ambulatory DIAMOND HILARIO Facility:[facility] Start: 05-16-2022 End: 05-17-[address] SANYA TINEO Facility:[facility] Start: 04-07-2022 End: 04-08-2022 ambulatory SHARITA KHAN Facility:[facility] Start: 11-25-2021 End: 11-26-2021 ambulatory SHARITA AKRANJEET Facility:[facility] Start: 07-08-2018 End: 07-09-2018 Patient encounter procedure DEFAULT PHYSICIAN Facility:[facility] Start: 04-15-2018 End: 04-16-2018 Patient encounter SADI WALLACE [facility] Procedures Date Procedure Procedure Detail Performing [...] EST Office Visit [facility] [address] [facility] [address] [place] [id number] Jennifer Morales MD [address] [facility] [address] [place] [address] [facility] Start: 06-01-2021 Pneumococcal Vaccine : 65+ Years (2 - PPSV23 or PCV20) Pneumococcal Vaccine: 65+ Years (2 - PPSV23 or PCV20) [facility] Immunizations Immunization Date Immunization Notes Care Provider Fa cility 06-28-2022 COVID-19 Pfizer (Pediatric) Sanya Tineo Other [employer] Other 06-16-2022 influenza virus vaccine, split virus (incl. purified surface antigen) Sanya Tineo Other [employer] Other 09-03-2020 COVID-19 Vaccine Moderna - Documentation Purposes Only Sanya Tineo Other [employer] Other 04-26-2020 influenza virus vaccine, split virus (incl. purified surface antigen) Sanya Tineo Other [employer] Other 06-20-2015 influenza virus vaccine, split virus (incl. purified surface antigen) Sanya Tineo Other [employer] Other 06-01-2015 pneumococcal conjuga te vaccine, 13 valent Sanya Tineo Other [employer] Other Payers Date Payer Category Payer Medicare [id number] 2023 Self-pay 2017 Medicare [employer] MEDICARE ADVANTAGE [facility] MEDICARE ADVANTAGE [id number] 2017-Present [address] [place] [address] [id number] 1959 Medicare [id number] 1945 Unknown [id number] 2.16.840.1.797515.3.579.2.647 1945 Unknown [id number] 2.16.840.1.378369.3.579.2.593 1945 Unknown [id number] 2.16.840.1.227184.3.579.2.593 1945 Unknown [id number] 2.16.840.1.270472.3.579.2.593 1945 Unknown [id number] 2.16.840.1.957924.3.579.2.593 1945 Unknown [id number] 2.16.840.1.458867.3.579.2.593 1945 Unknown [id number] 2.16.840.1.164308.3.579.2.593 1945 Unknown [id number] 2.16.840.1.187133.3.579.2.593 1945 Unknown [id number] 2.16.840.1.426125.3.579.2.593 1945 Unknown [id number] 2.16.840.1.812683.3.579.2.125 9 1945 Unknown [id number] 2.16.840.1.835059.3.579.2.125 9 1945 Unknown [id number] 2.16.840.1.087588.3.579.2.125 9 1945 Unknown [id number] 2.16.840.1.998682.3.579.2.125 9 1945 Unknown [id number] 2.16.840.1.051665.3.579.2.125 9 Unknown Unknown [id number] 2.16.840.1.298950.3.579.2.531 Social History Date Type Detail Facility Unknown if ever smoked [facility] Other Start: 07-24-2023 Sex Assigned At N [facility] Other Start: 07-24-2023 Tobacco smoking status NHIS Never smoked tobacco [facility] Start: 07-24-2023 Tobacco use and exposure Smokeless tobacco non-user [facility] Start: 08-28-2023 Alcohol intake Ex-drinker (finding) [facility] Start: 07-24-2023 History of Social function [facility] Start: 1945 Sex Assigned At Not on file N [facility] Clinical Notes 06-21-2021 to 08-28-2023 Dirk Oneill, [...] 100 MG/4ML Route: Intravitreal, Site: Left Eye [facility]: 25456-915-31, Lot: [id number], Expiration date: 10/24/2023, Waste: 0 mL Post-op [...] increased pain, redness, decreased vision or concerns. [facility] 08-28-2023 History of Presen t illness Narrative [...] 100 MG/4ML Route: Intravitreal, Site: Left Eye [facility]: 23787-410-24, Lot: [id number], Expiration date: 10/24/2023, Waste: 0 mL Post-op [...] vision or concerns. documented in this encounter [facility] 07-17-2023 Evaluation note Encounter Date Diagnosis Assessment [...] Z85.3) Handwrote rx for prothesis bra #3 [employer] Other 10-13-2023 NoteUT Cardiology - [facility] Subjective Trisha Parish is [...] with presyncope NSTEMI (non-ST elevated myocardial infarction) (CMS/[facility]) Hx of CABG Severe aortic stenosis Nonrheumatic [...] In September 2022 she was admitted to [facility] with weakness. She was found to have [...] presented to the emergency room at the [facility] with dizziness and low blood [...] and dry. Neurological: General (more content not included)...[facility] 05-11-2023 Evaluation note* Encounter Date Diagnosis Assessment Notes Treatment Notes Treatment Clinical Notes May, Bronchitis (ICD-10 - J40) Complete course of antibiotics. Discussed steroids for dyspnea. was recently ill as well. ER if symptoms worsen or fevers begin over weekend. [employer] Other 10-03-2023 Evaluation note* Encounter Date Diagnosis Assessment Notes Treatment Notes Treatment Clinical Notes May, Cough, unspecified type (ICD-10 - R05.9) [employer] Other 09-12-2023 Evaluation note* Encounter Date Diagnosis Assessment Notes Treatment Notes Treatment Clinical Notes Apr, Other specified postprocedural states (ICD-10 - Z98.890) s/p Aortic valve repair - doing very well. Energy is improving. 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 She was found to have [...] presented to the emergency room at the [facility] with dizziness and low blood [...] Behavior: Behavior is cooperati (more content not included)...[facility]08-30-2023 NoteSubjective Patient lying in bed without complaints. Denies chest pain or palpitations. V pacing on ECG monitor. Denies shortness of breath. No supplemental oxygen requirements. Denies numbness, tingling, and weakness to bilateral upper and lower extremities. Afebrile. Objective Patient Vitals for the past 24 hrs: BP Temp Temp src Pulse Resp SpO2 Height Weight 04/04/23 1337 151/58 36.4 ???C (97.5 ???F) Temporal 60 12 -- 1.626 m (5' 4.02 ) 64.3 kg (141 lb 12.1 oz) 04/04/23 0800 151/58 36.4 ???C (97.6 ???F) Temporal 60 12 98 % -- -- 04/04/23 [...] 04/03/23 1615 120/51 36.4 ???C (97.5 ???F) Temporal 60 16 98 % -- -- Physical [...] CT surgery standpoint. Medical management per cardiology team.[facility]08-30-2023 Note04/04/23 1035 Admission Assessment Questions Verify [...] Discharge? Yes Does the patient have a adult protective caseworker assigned to them through their insurance? No Living Arrangement (Current/Prior to Hospitalization) Private residence (3 steps to enter) Does the patient have history of HHC or SNF? Yes (Hx of rehab placement in [place]) Assistive Device Grab bars Patient's goal for [...] link and activate MyChart? MyChart already active [facility]08-29-2023 NoteIndications; Mrs. Robbins is a 78-year-old [...] the right common femoral Utilizing 2 6 Colombian ProGlide devices 6. Angio-Seal vascular closure in the right femoral, artery Tire Maker; interventional heavy equipment operator/paver; Toño Balbuena MD Cardiac surgery heavy equipment operator/paver; Lina Lamas MD ; lap machine operator Herve Mayorga MD ; Methods; Procedure was explained to the patient with risks and benefits. She signed informed consent. She was brought to the Photo Engra[facility] in a fasting state. The procedure was performed the [employer] under conscious sedation. Both groin areas were prepped and draped in usual fashion. Micropuncture technique and ultrasound guidance was used to access the right common femoral artery and inner cannula angiography was performed following by upsizing to a 6 Colombian by 11 cm sheath. The same was done for for access in the left common femoral artery. Ultrasound guidance was used for micropuncture access in left common femoral vein and 6 Colombian by 11 cm introducer sheath was secured in place. This time we proceeded with preclosure in the right common femoral artery using 2 crossing perclosure devices and the access was then upsized over wire to the 10 Colombian sheath. Heparin was given intravenously and therapeutic ACT was confirmed during the rest of the procedure and additional heparin was given as needed. A 5 Colombian balloontipped pacemaker wire was advanced through the femoral sheath into the right ventricular apex and adequate capture was confirmed. Right common femoral artery was accessed and upsized over an Amplatz extra-stiff wire to the 14 Colombian Medtronic sheath. Through the left common femoral sheath an angled 6 Colombian pigtail catheter was then advanced to the ascending aorta into the 9 coronary cusp. Aortic root angiography was performed and the cause overlap view as determined by prior CT scan measurements. A 6 Colombian AL diagnostic catheter was advanced via the right femoral sheath and using a stiff Glidewire the aortic valve was crossed and the catheter was advanced into the left ventricular cavity and using exchange length J-wire a 6 Colombian angled pigtail catheter was advanced to make [...] valve over the wire across the aortic viejas aortic valve and under pacing at 120 [...] and removed outside the body. The 14 Colombian access sheath was placed across the right femoral and 6 Colombian angled pigtail catheter was advanced across the [...] previous placed per (more content not included)... [facility]20[facility] NotePatient: Trisha Parish Procedure Information Date/Time: 04/03/23 1100 Procedure: TAVR Location: [facility] NEUROLOGY PHYSICIAN 3 / [facility] (Cath) Providers: Toño Balbuena MD Clinical information reviewed: Allergies Meds OB Status Physical Exam Airway Mallampati: II TM distance: >3 FB Neck ROM: full Cardiovascular Rhythm: regular Rate: normal Dental Pulmonary Abdominal Anesthesia Plan ASA 3 other (Moderate sedation) Anesthetic plan and risks discussed with patient. Use of blood products discussed with patient who consented to blood products. Additional Equipment [facility]08-02-2023 Note [place] Cardiology - [facility] Subjective Trisha Parish is [...] In September 2022 she was admitted to [facility] with weakness. She was found to have [...] , Rfl: carvedilol (Co (more content not included)...[facility] 02-21-2023 NoteCardiology Clinic Note Subjective Trisha [...] Never Update: 02/21/2023 She was hospitalized at [facility] for 3 days after presenting with [...] other elevated She was hospitalized 02/04-02/07/23 at [facility] and underwent coronary angiography and right heart [...] Date WBC 6.44 02/06 (more content not included)...[facility] 02-09-2023 Evaluation note* Encounter Date Diagnosis Assessment Notes Treatment Notes Treatment Clinical Notes Feb, Nonrheumatic aortic valve stenosis (ICD-10 - I35.0) Discussed followup testing and likely procedure coming up at [facility] at length w pt and Feb, Chronic kidney disease, stage 3 unspecified (ICD-10 - N18.30) Reviewed labs - condition stable Feb, CAD in viejas artery (ICD-10 - I25.10) Further f/u w [facility] Cardiology Feb, Essential hypertension (ICD-10 - I10) Improved on present meds. [employer] Other 07-05-2023 NotePhysical Therapy Physical Therapy Evaluation [...] in front. During session, patient confided in principal technical writer that they felt as though their balance had decreased during this admission and that they were worried about walking due to occasional and unpredictable losses of balance. Patient reported that they thought it could be related to neuropathy at their feet, but were unsure. Patient told principal technical writer that they wished to address loss of balance issues sooner rather than later and they felt less confident walking. Patient Active Problem List Diagnosis Heart block Acute renal failure syndrome (CMS/HCC) Anemia Atrial fibrillation ([facility]/HCC) Benign hypertensive renal disease Carotid artery stenosis Cerebrovascular accident ([facility]/HCC) Coronary arteriosclerosis Essential hypertension Hypertensive disorder Hyperparathyroidism due to renal insufficiency ([facility]/HCC) Breast CA ([facility]/HCC) Malignant neoplasm of female breast ([facility]/HCC) Proteinuria Stage 3 chronic kidney disease ([facility]/HCC) Stage 4 chronic kidney disease ([facility]/HCC) Type 2 diabetes mellitus ([facility]/HCC) Vitamin D deficiency 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 ([facility]/HCC) Pre-operative cardiovascular examination, recent myocardial infarction (CMS/HCC) Cardiac pacemaker in situ Postural dizziness with presyncope NSTEMI (non-ST elevated myocardial infarction) ([facility]/HCC) Hx of CABG Severe aortic stenosis Past Medical History: Diagnosis Date A-fib ([facility]/HCC) Cancer (CMS/HCC) Coronary artery disease Hypertension Myocardial infarct ([facility]/HCC) Stroke ([facility]/HCC) Past Surgical History: Procedure Laterality Date BREAST [...] Level of Function Prior Function Level of Nicholas: Independent with ADLs and functional transfers Prior [...] Standing Balance Dynamic Darwin (more content not included)...[facility] 02-07-2023 NoteHospital Medicine Discharge Summary Final [...] Medications These medications were sent to [facility] [place] [address] [address] [place] [address] [place] [address] [facility] [id number] lisinopril 40 mg tablet NIFEdipine CC 60 [...] Normal activity as tolerate (more content not included)...[facility]07-04-2023 NoteHospital Medicine Daily Progress Note - 02/06/2023 1:29 PM; Room: [address] [place] [address] Admission: 02/04/2023 10:47 PM; Length of stay: 2 days THE HOSPITALIST TEAM PREFERS TO USE [employer] CHAT FOR COMMUNICATION 7AM-7PM. IF I DO NOT RESPOND WITHIN 15 MINUTES, PLEASE PAGE ME/CALL THROUGH THE HYDROGRAPHICAL TECHNICAL OFFICER. FROM 7PM-7AM, PLEASE PAGE [phone](COVR) Code Status: Full Code Discharge Destination: home [...] Cardiac pacemaker in situ Anemia Atrial fibrillation ([facility]) Carotid artery stenosis Essential hypertension Hypertensive disorder Breast CA ([facility]) Type 2 diabetes mellitus ([facility]) Vitamin D deficiency Postural dizziness with presyncope Hx of CABG NSTEMI (non-ST elevated myocardial infarction) ([facility]) Assessment and Plan #Near-syncope #NSTEMI type I [...] Results Component Value D (more content not included)...[facility]07-04-2023 Note Attestation signed by Matilda Valentin [...] -- -- 75 15 99 % -- 02/05/23 2000 171/82 36.6 ???C (97.8 ???F) Temporal 77 16 98 % -- 02/05/231944 (!) 175/91 -- -- 83 22 99 % -- 02/05/23 1930 164/85 -- -- 74 13 98 % -- 02/05/23 1915 159/76 -- -- 76 13 98 % -- 02/05/23 1900 -- -- -- 77 14 98 % -- 02/05/23 1847 153/70 -- -- 80 14 99 % -- 02/05/23 1724 -- -- -- -- -- 98 % -- 02/05/23 172 (!) 181/89 -- -- 82 14 98 [...] Value Ventricular Rate 72 Atrial Rate 72 HI Interval 162 QRS DURATION 150 QT Interval 464 QTC CALCULATION(BAZETT) 508 P Ashland 70 R-Ashland -40 T Wave Ashland 103 Impression Atrial-sensed ventricular-paced rhythm Abnormal ECG When compared with ECG of 10-SEP-2022 13:04, Electronic ventricular pacemaker has replaced Sinus rhythm Confirmed by Cheryl VALENTIN, MATILDA Robles ([id number]) on 02/05/2023 8:39:37 AM Lab Results Component Value Date TROPONINI 0.25 (HH) 02/05/2023 Complete Echo (TTE) w/wo Imaging Agent, Strain, 3D, Bubble Study Result Date: 02/05/2023 1 [facility] Heart Station [address] [place], [place] [address] (fax) Echocardiogram-[facility] Name: TRISHA PARISH Study Date: 02/05/2023 09:59 AM B/P: 136 mmHg/65 mmHg HR: 61 bpm Date of : 1945 Location: [facility] Height: 63 in. Age: 77 year(s) Patient [...] cm?? Aortic Va (more content not included)... [facility]07-04-2023 NoteCTA CHEST W AND/OR WO IV [...] 3 cusped view, anterior view and no THROUGH OPERATOR-CAU view are obtained in 3-D volume rendered [...] diameter of 23 mm. Electronically signed: Fely Carrington.[facility] Comment on above:Order Comment: TAVR [id number] NoteCTA ABDOMEN PELVIS W AND/OR WO IV [...] spondylosis and levoconvex scoliosis. Electronically signed: Fely Carrington.[facility] 02-05-2023 NotePatient: Trisha Parish Procedure Information Date/Time: 02/05/23 1800 Procedures: Coronary angiography Right heart cath Valve assessment - Aortic valve Location: [facility] NEUROLOGY PHYSICIAN 3 / [facility] (Cath) Providers: Herve Mayorga MD Clinical information reviewed: Allergies Meds Physical Exam Airway Mallampati: III Cardiovascular Rhythm: regular Dental Pulmonary Abdominal Anesthesia Plan ASA 3 other (Conscious sedation ) intravenous induction Anesthetic plan and risks discussed with patient. Use of blood products discussed with patient who. [facility] Note Clinical Nutrition Assessment Name: Trisha [...] Goals: intake > 75% meals Alexander Chowdhury RDMercy [facility] Hospital07-03-2023 NoteHospital Medicine Daily Progress Note - 02/05/2023 12:08 PM; Room: 3122/3122-01 Admission: 02/04/2023 10:47 PM; Length of stay: 1 days THE HOSPITALIST TEAM PREFERS TO USE [employer] CHAT FOR COMMUNICATION 7AM-7PM. IF I DO NOT RESPOND WITHIN 15 MINUTES, PLEASE PAGE ME/CALL THROUGH THE HYDROGRAPHICAL TECHNICAL OFFICER. FROM 7PM-7AM, PLEASE PAGE [phone](COVR) Code Status: Full Code Discharge Destination: home [...] 1.36 09/10/2022 Lab Results Component Value Date [id number] 177 (L) 09/10/2022 IRON 27 (L) 09/10/2022 TIBC 203 (L) 09/10/2022 Imaging ECG 12 lead Atrial-sensed ventricular-paced rhythm Abnormal ECG When compared with ECG of 10-SEP-2022 13:04, Electronic ventricular pacemaker has replaced Sinus rhythm Confirmed by Cheryl VALENTIN, MATILDA Robles ([id number]) on 02/05/2023 8:39:37 AM Discharge Planning Discharge Planning Has discharge transport been arranged?: No Signed Josr Ray NP Hospital Medicine 02/05/2023 12:08 PMMer[facility]07-[facility] NoteHospital Medicine History and Physical 02/05/2023 12:23 AM THE HOSPITALIST TEAM PREFERS TO USE [employer] CHAT FOR COMMUNICATION 7AM-7PM. IF I DO NOT RESPOND WITHIN 15 MINUTES, PLEASE PAGE ME/CALL THROUGH THE HYDROGRAPHICAL TECHNICAL OFFICER. FROM 7PM-7AM, PLEASE PAGE [phone](COVR) Chief Complaint Direct transfer History of Present [...] 02/05/2023 Pre-operative cardiovascular examination, recent myocardial infarction ([facility] 10/06/2022 Atrial fibrillation ([facility]) 09/20/2022 Carotid artery stenosis 09/20/2022 Cerebrovascular accident ([facility] 09/20/2022 Coronary arteriosclerosis 09/20/2022 Hypertensive disorder 09/20/2022 Heart block 09/10/2022 Hyperparathyroidism due to renal insufficiency ([facility]) 04/02/2019 Stage 4 chronic kidney disease ([facility]) 04/02/2019 Anemia 02/19/2017 Essential hypertension 02/19/2017 Malignant neoplasm of female breast ([facility]) 02/19/2017 Proteinuria 02/19/2017 Vitamin D deficiency 02/19/2017 Type 2 diabetes mellitus ([facility]) 07/09/2014 Acute renal failure syndrome ([facility]) 11/06/2013 Benign hypertensive renal disease 11/06/2013 Stage 3 chronic kidney disease ([facility]) 11/06/2013 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 Past Medical History Past Medical History: Diagnosis Date A-fib (CMS/HCC) Cancer (CMS/HCC) Coronary artery disease Hypertension Myocardial infarct (CMS/HCC) Stroke ([facility]/HCC) Past Surgical History Past Surgical History: Procedure Laterality Date BREAST SURGERY CHOLECYSTECTOMY CORONARY ARTERY BYPASS GRAFT HYSTERECTOMY Social History Social History Socioeconomic Histor (more content not included)...[facility]06-20-2023 NoteUT Electrophysiology Consult Note Reason for [...] stenosis, CKD. She was recently admitted to [facility] for weakness, suspected to have a stroke [...] stroke who presented with generalized weakness to [facility]. At [facility], EKG demonstarted a 2:1 AV block with prolonged HI interval 266. Chest x-ray demonstrated possible trace [...] heart rate 59. Patient was transferred to [facility] for further evaluation by cardiology. She was [...] PMH: Past Medical History: Diagnosis Date A-fib ([facility]) Cancer ([facility]/HCC) Coronary artery disease Hypertension Myocardial infarct ([facility]) Stroke ([facility]) PSH: Past Surgical History: Procedure Laterality Date [...] mg chemo tablet anastrozole (more content not included)...[facility]06-14-2023 NoteUT Cardiology - [facility] Subjective Trisha Parish is [...] In September 2022 she was admitted to [facility] with weakness. She was found to have [...] capsule in the morning., Disp: , Rfl: Markit Stephy 2 Sensor kit, , Disp: , [...] (Pepcid) 20 mg tablet (more content not included)...[facility]03-03-2023 NoteDressing removed and incision is healing well without any s/s of infection.[facility]03-03-2023 NoteHypertension is currently well controlled with addition of nifedipine, continue current med regime.[facility]03-03-2023 NoteUTP CARDIOLOGY PROGRESS NOTE HPI: Trisha [...] Bubble Study Result Date: 09/11/2022 1 1 [facility] Heart Station [address] [place] [address] [phone] (fax) Echocardiogram-[facility] Name: TRISHA PARISH Study Date: 09/11/2022 10:26 AM B/P: 125 mmHg/69 mmHg HR: 68 bpm Date of : 1945 Location: [facility] Height: 63 in. Age: 77 year(s) Patient [...] suggest mildly elevated right (more content not included)...[facility]03-03-2023 NotePatient is here today for hypertension. Review of Systems Cardiovascular: Positive for irregular heartbeat. Gastrointestinal: Positive for constipation. All other systems reviewed and are negative.[facility] 09-20-2022 Note-s/p dual-chamber PPM -Follow-up with device clinic within the next 2 to 3 weeksUn[facility]02-15-2023 Note- He is hypertensive today but also has not had nifedipine -Currently takes 60 mg in the morning and 30 mg at night -We will have her start with 30 mg daily and return to clinic in 1 to 2 weeks for hypertension checkUnMemorial Hospital02-15-2023 NoteCoronary artery disease is stable -Continue current medicationsUnMemorial Hospital02-15-2023 Note- [id number] 5 (age, gender, history of CVA) -s/p PARISH clipping, she is on Plavix -Follow-up with device check for concerns of arrhythmiaUnMemorial Hospital02-15-2023 Note- Follow-up with electrical drafter regarding calcitriol [facility]02-15-2023 NoteUT Electrophysiology Consult Note Reason for visit: hospital follow up, wound check, hypertension HPI: Trisha Parish is a 77 y.o. 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 She was recently admitted to [facility] for weakness, suspected to have a stroke [...] to continue the medication and follow-up with PCP/electrical drafter Her device dressing is clean dry and [...] stroke who presented with generalized weakness to [facility]. She presented with 2-day history of exertional shortness of breath and weakness with intermittent palpitations. She stated that her legs felt heavy. She denied any recent changes of medication and illness. Patient states that she does take Plavix daily. She denies any use of anticoagulation. At [facility], EKG demonstarted a 2:1 AV block with prolonged HI interval 266. Chest x-ray demonstrated possible trace [...] heart rate 59. Patient was transferred to [facility] for further evaluation by cardiology. She was [...] has moderate mitral regurgitation by echocardiogram in 2015 She has been well with no angina [...] mitral regurgitation, mild to (more content not included)...[facility]02-15-2023 NotePatient here for wound check s/p device placement with Dr. Soto on 09/11/2022. She called the office yesterday to make us aware her BP has been running in the 170's-180's systolic since nifedipine was discontinued while at [facility]. Still feels palpitations. She sees nephrology out of [place]. Review of Systems Constitutional: Positive for malaise/fatigue. Cardiovascular: Positive for palpitations. All other systems reviewed and are negative.[facility] 09-12-2022 NoteCardiology Progress Note Subjective Subjective: [...] Lab PROCEDURE PERFORMED: 1. Implantation of pacemaker ([employer]ne [employer]) 2. Ultrasound guided venous access INDICATIONS: 1. [...] for device interrogation and 3 months with [employer]. Mikayla Moncada REFINING ENGINEER Division of Cardiology, [facility]- [phone] Pager- [phone] Email- [email or web address]02-06-2023 NoteDUAL CHAMBER PACEMAKER IMPLANT PROCEDURE NOTE DATE OF PROCEDURE: 09/11/2022 PERFORMING PHYSICIAN: Dr. Doe Soto CONSENT: Patient LOCATION: EP Lab PROCEDURE PERFORMED: 1. Implantation of pacemaker ([employer]) 2. Ultrasound guided venous access INDICATIONS: [...] using modified seldinger technique using a 5 Colombian micro-puncture needle on two occasions and 0.35 [...] for the device above the muscle. 6 Colombian Safesheaths were placed over the wire. An active fixation [employer] pacing lead was then delivered through the 6Fsheath to the right ventricle. After confirmation of lead position on orthogonal views (CASILLAS and POLISH) to confirm septal position, the screw was activated, and the lead was placed in the right ventricular mid cavity towards the septum. After confirmation of good sensing parameters, injury pattern and pacing thresholds, 10V pacing was done and no diaphragmatic stimulation was noted. It was then secured in the pocket using three 1-0 Silk sutures. Then an active fixation [employer] lead was delivered through the 6Fsheath to the right atrial appendage. After confirmation of lead position on orthogonal views (CASILLAS and POLISH), the screw was activated. Good sensing parameters, [...] x 2 weeks Doe Soto MD Cardiac ElectrophysiologyMercy [facility] Hospital02-06-2023 Note Patient: Trisha Parish Procedure Information Date/Time: 09/11/22 1459 Procedure: Pacemaker DC new Location: [facility] NEUROLOGY PHYSICIAN 1 EP / [facility] (Cath) Providers: Doe Soto MD Clinical information reviewed: Tobacco Allergies Meds Med Hx Surg Hx Fam Hx Soc Hx Physical Exam Airway Mallampati: II TM distance: >3 FB Neck ROM: full Cardiovascular Dental Pulmonary Abdominal Anesthesia Plan ASA 2 CSE Anesthetic plan and risks discussed with patient. Use of blood products discussed with patient who. Additional Equipment RequestsMercy [facility] Hospital02-06-2023 Note Attestation signed by Matilda Valentin [...] 98 QT Interval 464 QTC CALCULATION(BAZETT) 455 R-Ashland 20 T Wave Ashland 14 Impression Sinus rhythm with 2nd degree A-V block (Mobitz I) Moderate voltage criteria for LVH, may be normal variant ( Sokolow-Lord , [place] product ) Nonspecific ST abnormality Abnormal ECG [...] opacities compatible with edema. Electronically signed: Lior Randle. Assessment: Trisha Parish is a 77 y.o. female w/ PMH of CAD s/p CABG (2014 (more content not included)...[facility]02-06-2023 Note Attestation signed by Easton Boone [...] Parish Age - 77 y.o. - 1945 [id number] Date of Admission - 09/10/2022 11:01 AM HPI/Hospital Course Subjective Trisha Parish is a 77 y.o. female with a past medical history significant for atrial fibrillation status post maze and left atrial appendage clip, coronary artery disease status post CABG, hypertension, stroke who presented with generalized weakness to [facility]. She presented with 2-day history of exertional shortness of breath and weakness with intermittent palpitations. She stated that her legs felt heavy. She denied any recent changes of medication and illness. Patient states that she does take Plavix daily. She denies any use of anticoagulation. At [facility], EKG demonstarted a 2:1 AV block with prolonged HI interval 266. Chest x-ray demonstrated possible trace [...] heart rate 59. Patient was transferred to [facility] for further evaluation by cardiology. On my evaluation, patient denied chest pain shortness of breath, lightheadedness, dizziness. She did state that she continued to feel weak. Patient arrived while on dopamine infusion. However, heart rate was noted to be in the 30s to 40s. Labs at [facility] suggestive of subclinical hypothyroidism, prediabetes and iron [...] Results ABG: No results found for: PHART, BFN4WZJ, PO2ART, BJW5YCH, IONCALART No results found for: PHVEN, EJZ7KII, PO2VEN, YGI8RGM, IONCALVEN CBC: Results from last 7 days [...] 3.9 4.0 CHLORIDE mm (more content not included)...[facility] 09-10-2022 Note Attestation signed by Suzi [...] ESTIMATED BLOOD LOSS: 5 ml Camille Millard [facility] Fellow [facility]02-03-2023 Evaluation note* Encounter Date Diagnosis Assessment [...] ultrasound thyroid from May 2022 with Trisha. [employer] Other 11-16-2021 NotePROCEDURE REPORT Specimen #: [id number] Submitting Physician: Abner Wheeler MD SPECIMEN SUBMITTED [...] developed and its performance characteristics determined by [facility] Pathology and Laboratory Medicine [place] ([facility]). It has not been cleared or approved by the FDA. 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- Primary documented in this encounter [facility] HealthcareHistory general Narrative - Reported* Type Description Date Medical History CAD in viejas artery Medical History Diabetes mellitus ty pe 2, uncontrolled, without complications Medical History Chronic kidney disease, stage 3 unspecified Medical History Elevated glucose Medical History Right thyroid nodule Medical History Menopause Medical History Enlarged thyroid gland Medical History Anxiety, generalized Medical History Essential hypertension Surgical History CHOLECYSTECTOMY 2014 Surgical History LEFT BREAST MASTECTOMY Hospitalization History SEE SURGICAL HX [place] [employer] Other History general Narrative - Reported* Type Description Date Medical History CAD in viejas artery Medical History Diabetes mellitus ty pe 2, uncontrolled, without complications Medical History Chronic kidney disease, stage 3 unspecified Medical History Elevated glucose Medical History Right thyroid nodule Medical History Menopause Medical History Enlarged thyroid gland Medical History Anxiety, generalized Medical History Essential hypertension Medical History Heart attack Surgical History CHOLECYSTECTOMY 2014 Surgical History LEFT BREAST MASTECTOMY Hospitalization History SEE SURGICAL HX [employer] Other Summary Purpose Family History No Family [...] 1 Post-nasal drip (R09 .82) [facility] Referring Provider First Name Sanya Referring Provider Last Name Rivka Referring Provider Specialty Family [facility] cine Referred Organization [facility] Referred Address ,[place], [place],[address] Referred Provider Specialty Ear, Nose an d Throat Referral Priority Routine Additional Source Comments INFORMATION SOURCE (unrecogn ized section and content) DATE CREATED AUTHOR 05/01/2018 [facility] DATE CREATED AUTHOR AUTHOR'S ORGANIZ ATION 07/16/2018 [facility] DATE CREATED AUTHOR AUTHOR'S ORGANIZ ATION 06/23/2021 [facility] DATE CREATED AUTHOR AUTHOR'S ORGANIZ ATION 10/10/2022 [facility] DATE CREATED AUTHOR AUTHOR'S ORGANIZ ATION 03/09/2023 [facility] DATE CREATED AUTHOR AUTHOR'S ORGANIZ ATION 07/12/2023 [facility] DATE CREATED AUTHOR AUTHOR'S ORGANIZ ATION 10/20/2023 [facility] dical Specialists EPIC REASON FOR VISIT (unrecogniz ed section and content) Reason Comments Retinal Injection Care Teams (unrecognized sec tion and content) Head Buyer Tobacco Relationship Specialty Start Date End Date Sanya Tineo MD [address] [place] [address] PCP - General Family Medicine 02/20/23 FOR [...] BE BASED ON THE PRIMARY CLINICAL RECORDS. [employer] [facility]. provides no warranty or guarantee of the accuracy or completeness of information in this document.
== END 2023-11-05 11:20 | disposition home or self-care (01) ==
LOC: PST 11:19
PROVIDERS: PCP Family Medicine; Visit Provider Ophthalmology
DX: Z01.818 Encounter for other preprocedural examination (principal); H25.11 Age-related nuclear cataract, right eye

== ENCOUNTER 2023-11-08 07:09 | Day surgery (SDC) | payer MEDICARE, SELFPAY ==
--- NOTE | 2023-11-08 | OP_ITS ---
OPERATION DATE: 11/08/2023 SURGEON: Erickson Schwab M.D. PREOPERATIVE DIAGNOSIS: Nuclear sclerotic cataract right eye. POSTOPERATIVE DIAGNOSIS: Nuclear sclerotic cataract right eye. PROCEDURE NAME: Cataract extraction with intraocular lens placement for the right eye. ANESTHESIA: Topical. ESTIMATED BLOOD LOSS: Zero. COMPLICATIONS: None. PROCEDURE: The patient was brought to the Operating Room in supine position. After proper identification, the right eye was prepped and draped in a sterile ophthalmic fashion. A paracentesis created at the 11 o'clock position. Approximately 1 cc of unpreserved Xylocaine was injected into the anterior chamber followed by Amvisc Plus. Using a 2.6 mm Keratome blade, a clear corneal incision was created at the 9 o'clock limbus. A cystotome was then used to begin a curvilinear capsulorrhexis that was continued for 360 degrees with the Utrata forceps. BSS on a 26 gauge cannula was injected beneath the anterior capsule to hydrodissect as well as hydrodelineate the lens. After ensuring mobility, phacoemulsification was performed in a qfoqpyr-[id number]-eqagtn-type fashion. After all nuclear material had been removed from the eye, IA was introduced and all residual cortical material was cleaned up. Additional Amvisc Plus was injected into the posterior bag and a lens model MX60, 22.5 diopters was injected and dialed into position. After ensuring centration, IA was reintroduced into the anterior chamber and all residual Amvisc Plus removed from the eye. BSS on a 30 gauge cannula was injected into the stroma of both the clear corneal incision as well as paracentesis to hydrate the wounds. Additional BSS was injected into the anterior chamber to pressurize the eye at approximately 20 to 22 mmHg by finger tension. 0.1 cc of antibiotic was injected into the anterior chamber. Weck-Le sponges were used to check the wounds to be watertight. One drop of apraclonidine and one drop of prednisolone acetate were placed into the eye and a shield was placed over top. The patient was sent to the postoperative area in satisfactory condition to follow up the following day for postoperative care. KE
--- NOTE | 2023-11-08 07:09 | HP_ITS ---
PREOPERATIVE HISTORY AND PHYSICAL Date:? 11/07/2023 HISTORY:? Patient is a 78-year-old female with complaints of declining vision out of her right eye.? This has gradually been worsening over the time frame of 1-2 years in a constant fashion.? She states having difficulty seeing road signs at a distance.? She also states having difficulty at night time while driving with the headlights creating glare and halos.? Finally, she states having difficulty reading the television and the scrolling at the bottom. PAST OCULAR HISTORY / PAST MEDICAL HISTORY / SOCIAL HISTORY / MEDICATIONS / ALLERGIES TO MEDICATIONS / REVIEW OF SYSTEMS / PHYSICAL EXAMINATION:? Unchanged from previously dictated. ASSESSMENT/PLAN:? Visually significant cataract, right eye.? After the risks, benefits, and alternatives as well as expectations were delivered to the patient, she elected to go forward with cataract removal.? She understands those risks to include but not limited to infection, bleeding, loss of vision or loss of the eye itself.? Secondly, she understands that postoperatively she is likely to require spectacle correction for her best visual acuity.? Finally, a complete ophthalmic exam was performed and there was not determined to be any other source of vision decline other than that of cataract.? After understanding all risks as well as expectations, she elected to go forward with the procedures as listed above and will be doing so in the near future. KE
--- OUTSIDE RECORDS SUMMARY | 2023-11-08 07:12 | XMS_ITS | CCD ---
Author Organization [facility] Care Team Providers Care Intelligence Applications Name Role Phone WALLACE, SADI P Unavailable [...] Unavailable Sanya Tineo MD Primary Care Provider [phone] DIRK ONEILL Attending Unavailable NIMA, ZOEY Referring Unavailable DIRK ONEILL Attending Unavailable JENNIFER MORALES Attending Unavailable SANYA TINEO Referring Unavailable JENNIFER MORALES Attending Unavailable DIRK ONEILL Attending Unavailable Allergies Allergy Classification Reported Allergen(s) Allergy Type Date of Onset Reaction(s) Facility (2 sources) Meperidine Drug Allergy 06-16-2009 AOF [facility] Repository (12 sources) Meperidine; Translations: [MEPERIDINE] Drug Allergy 09-10-2022 Unknown [facility] Repository (1 source) Meperidine Drug Allergy 02-17-2023 [facility] Repository (1 source) Meperidine Drug [...] more days for 5 May, Active calcitriol 0.73308 mg oral capsule (3 sources) Vitamin D3 [...] 07/24/2023 10/22/2023 Active FreeStyle Stephy 14 Day [place] - (10 sources) FreeStyle Stephy 14 Day [place] - as directed Active FreeStyle Stephy 14 [...] angina pectoris; Translations: [Atherosclerotic heart disease of [place] coronary artery without angina pectoris] Onset: 3 [...] 3 Chronic Other aftercare (1 source) Other alf (current) drug therapy; Translations: [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] Onset: 3 Episodic [...] Facility Left eye Ophthalmologic moira tmenton 08-28-2023 [facility] Radiology Study observation (narrative) [facility] Follow-Upon 05-18-2023 Follow-Up [id number] Trisha Parish 1945 F Date Provider Department Center 05/18/2023 TOÑO SIMPSON HILTON Gallego [facility] No family history on file Level of Service:71707 [place] OFFICE/OUTPATIENT ESTABLISHED LOW MDM 20-29 MIN Reason for Visit and Comments: Post-op TAVR [730] [facility] Office Visiton 04-11-2023 Follow-up visit [id number] Trisha Parish 1945 F Date Provider Department Center 04/11/2023 TOÑO SIMPSON HILTON [facility] No family history on file Level of Service:41148 [place] OFFICE/OUTPATIENT ESTABLISHED MOD MDM 30-39 MIN Reason for Visit and Comments: Follow-up [742406] - 1 week F/U [facility] Documentationon 04-05-2023 Documentation [id number] Trisha Parish 1945 Provider Department [place] 04/05/2023 Karlo-LINA LAMAS HVCVASENDO [facility] No family history on file Reason for Visit and Comments: Post-op [483] [facility] 30on 04-04-2023 30 Daily Case Managemen [...] Score: PT Recommendations: OT Recommendations: New Consults: [facility] 30 The patient is Moder ately [...] and maintained or improved Outcome: Progressing Normal [facility] 30 The patient is Moder ately Stable [...] and maintained or improved Outcome: Progressing Normal [facility] B-TYPE NATRIURETIC PEPTIDEon 04-04-2022 Natriuretic peptide B (Bld) [Mass/Vol] 213 pg/mL High 0-100 [facility] Comment on above: Performed By: #### L [id number] ####[facility] ([facility])[address] [address] BASIC METABOLIC PANELon 03-08 Anion gap [Moles/Vol] 11 mmol/L Normal 7-20 [facility] Comment on above: Performed By: #### L [id number] #### [facility] ([facility]) [address] [place] [address] Calcium [Mass/Vol] 8.7 mg/dL Normal 8.6-10.3 [facility] Comment on above: Performed By: #### L [id number] #### [facility] ([facility]) [address] [place] [address] Chloride [Moles/Vol] 109 mmol/L High 98-107 [facility] Comment on above: Performed By: #### L [id number] #### [facility] ([facility]) [address] [place] [address] CO2 [Moles/Vol] 20 mmol/L Low 21-31 [facility] Comment on above: Performed By: #### L [id number] #### [facility] ([facility]) [address] [place] [address] Creatinine [Mass/Vol] 1.58 mg/dL High 0.60-1.20 [facility] Comment on above: Performed By: #### L [id number] #### [facility] ([facility]) [address] [place] [address] GLOMERULAR FILTRATION RATE ML/MIN/1.73 SQ M.PREDICTED 33.3 mL/min/1.73m*2 Low >60.0 [facility] Comment on above: Result Comment: [facility]???s estimated glomerular filtration rate (eGFR) will no [...] group of individuals. Performed By: #### L [id number] #### [facility] ([facility]) [address] [place] [address] Glucose [Mass/Vol] 140 mg/dL High 70-100 [facility] Comment on above: Performed By: #### L [id number] #### [facility] ([facility]) [address] [place] [address] Potassium [Moles/Vol] 4.1 mmol/L Normal 3.5-5.1 [facility] Comment on above: Performed By: #### L [id number] #### [facility] ([facility]) [address] [place] [address] Sodium [Moles/Vol] 136 mmol/L Normal 136-145 [facility] Comment on above: Performed By: #### L [id number] #### [facility] ([facility]) [address] [place] [address] Urea nitrogen [Mass/Vol] 33 mg/dL High 7-25 [facility] Comment on above: Performed By: #### L [id number] #### [facility] ([facility]) [address] [place] [address] UREA NITROGEN/CREATININE (MASS RATIO) IN SER/PLAS 20.9 Normal [facility] Comment on above: Performed By: #### L [id number] #### [facility] ([facility]) [address] [place] [address] Anion gap [Moles/Vol] 13 mmol/L Normal 7-20 [facility] Comment on above: Performed By: #### L [id number] ####[facility] ([facility])[address] [place] [address] Calcium [Mass/Vol] 8.9 mg/dL Normal 8.6-10.3 [facility] Comment on above: Performed By: #### L [id number] ####[facility] ([facility])[address] [place] [address] Chloride [Moles/Vol] 110 mmol/L High 98-107 [facility] Comment on above: Performed By: #### L [id number] ####[facility] ([facility])[address] [place] [address] CO2 [Moles/Vol] 19 mmol/L Low 21-31 [facility] Comment on above: Performed By: #### L [id number] ####[facility] ([facility])[address] [place] [address] Creatinine [Mass/Vol] 1.61 mg/dL High 0.60-1.20 [facility] Comment on above: Performed By: #### L [id number] ####[facility] ([facility])[address] [place] [address] GLOMERULAR FILTRATION RATE ML/MIN/1.73 SQ M.PREDICTED 32.6 mL/min/1.73m*2 Low >60.0 [facility] Comment on above: Result Comment: [facility]???s estimated glomerular filtration rate (eGFR) will no [...] of individuals. Performed By: #### L [id number] ####[facility] ([facility])[address] [place] [address] Glucose [Mass/Vol] 95 mg/dL Normal 70-100 [facility] Comment on above: Performed By: #### L [id number] ####[facility] ([facility])[address] [place] [address] Potassium [Moles/Vol] 4.2 mmol/L Normal 3.5-5.1 [facility] Comment on above: Performed By: #### L [id number] ####[facility] ([facility])[address] [place] [address] Sodium [Moles/Vol] 138 mmol/L Normal 136-145 [facility] Comment on above: Performed By: #### L [id number] ####[facility] ([facility])[address] [place] [address] Urea nitrogen [Mass/Vol] 34 mg/dL High 7-25 [facility] Comment on above: Performed By: #### L [id number] ####[facility] ([facility])[address] [place] [address] UREA NITROGEN/CREATININE (MASS RATIO) IN SER/PLAS 21.1 Normal [facility] Comment on above: Performed By: #### L [id number] ####[facility] ([facility])[address] [facility] [address] CBCon 04-04-2023 Erythrocyte distribution width (RBC) [Ratio] 14.6 % Normal 11.5-15.0 [facility] Comment on above: Performed By: #### L [id number] #### [facility] ([facility]) [address] [place] [address] ERYTHROCYTE MEAN CORPUSCULAR HEMOGLOBIN CONCENTRATION (G/DL) BY AUTOMATED 32.8 g/dL Normal 32.0-35.0 [facility] Comment on above: Performed By: #### L [id number] #### [facility] [address] [place] [address] Hematocrit (Bld) [Volume fraction] 30.8 % Low 36.0-48.0 [facility] Comment on above: Performed By: #### L [id number] #### [facility] [address] [place] [address] Hemoglobin (Bld) [Mass/Vol] 10.1 g/dL Low 12.0-15.0 [facility] Comment on above: Performed By: #### L [id number] #### [facility] ([facility]) [address] [place] [address] MCH (RBC) [Entitic mass] 29.3 pg Normal 27.0-33.0 [facility] Comment on above: Performed By: #### L [id number] #### [facility] ([facility]) [address] [place] [address] MCV (RBC) [Entitic vol] 89.3 fL Normal 82.0-98.0 [facility] Comment on above: Performed By: #### L [id number] #### [facility] [address] [place] [address] PLATELETS (10*3/UL) IN BLOOD AUTOMATED COUNT 126 10*3/uL Low 150-400 [facility] Comment on above: Performed By: #### L [id number] #### [facility] [address] [place] [address] RBC (Bld) [#/Vol] 3.45 10*6/uL Low 3.80-5.00 [facility] Comment on above: Performed By: #### L [id number] #### [facility] ([facility]) [address] [place] [address] WBC (Bld) [#/Vol] 5.60 10*3/uL Normal 4.00-10.60 [facility] Comment on above: Performed By: #### L [id number] #### [facility] ([facility]) [address] [place] [address] DSon 04-04-2023 DS ----- ----- Attestation signed [...] Medications These medications were sent to [facility] [place] [address] [place] [address] [place] [address], [facility] [address] acetaminophen 325 mg tablet aspirin 81 mg [...] direct detection a (more content not included)... [facility] NURSNOTEon 04-04-2023 NURSNOTE Pt discharged home w ith by car [facility] 04-03-2023 30 The patient is Moder [...] monitored and maintained or improved Outcome: Progressing [facility] 04-03-2023 HP H&P reviewed. The [...] is brought today for the procedure. Normal [facility] MRSA/MSSA DNA NASALon 2022 MRSA DNA Negative Normal Negative [facility] Comment on above: Order Comment: Testi ng [...] preclude nasal colonization. Performed By: #### L [id number] ####[facility] ([facility])[address] [place] [address] MSSA DNA Negative Normal Negative [facility] Comment on above: Order Comment: Testi ng [...] preclude nasal colonization. Performed By: #### L [id number] ####[facility] [place] [address] NURSNOTEon 04-03-2023 NURSNOTE Report called to Kameron hay RN. He denies questions/concerns. Normal [facility] TYPE AND SCREENon 04-03-2023 AB SCREEN Negative Normal [facility] Comment on above: Performed By: #### L [id number] #### [facility] ([facility]) [address] [place] [address] ABO group Nom (Bld) B Normal [facility] Comment on above: Performed By: #### L [id number] #### [facility] ([facility]) [address] [place] [address] RH TYPE IN BLOOD Positive Normal [facility] Comment on above: Performed By: #### L [id number] #### [facility] ([facility]) [address] [place] [address] Orders Onlyon 03-22-2023 Orders Only [id number] Trisha Parish 1945 F Date Provider Department Center 03/22/2023 MARGARET COLLINS [facility] [place] [facility] No family history on file Normal [facility] HPon 2023 HP [place] [facility] Subjective Trisha Parish is a [...] In September 2022 she was admitted to [facility] with weakness. She was [...] carvedilol (Co (more content not included)... Normal [facility] Office Visiton 2023 Follow-up visit [id number] Trisha Parish E 1945 F Date Provider Department Center 2023 Carla-TOÑO BALBUENA [facility] No family history on file Level of Service:24811 [place] OFFICE/OUTPATIENT ESTABLISHED HIGH MDM 40-54 MIN [facility] ANEDale 02-23-2023 ANES ----- ----- Attestation [...] 02/23/23 1030 Procedure: TRANSESOPHAGEAL ECHO (ELENA) Location: [facility] Heart and Vascular Center [...] to blood products. Additional Equipment Requests Normal [facility] HPon 02-23-2023 ----- ----- Attestation signed by [...] no changes to the H&P. [facility] NURSNOTEon 02-23-2023 NURSNOTE Pt performed and pas sed bedside swallow study test. RN educated pt on d/c instructions. RN encouraged pt to voice any questions or concerns. Pt verbalizes no questions or concerns at this time. Pt was wheeled off of unit with all of belongings. [facility] HPon 02-21-2023 Cardiology Clinic No te [...] Never Update: 02/21/2023 She was hospitalized at [facility] for 3 days after presenting with dizziness [...] other elevated She was hospitalized 02/04-02/07/23 at [facility] and underwent coronary angiography [...] 6.44 02/06 (more content not included)... Normal [facility] Office Visiton 02-21-2023 Follow-up visit [id number] Trisha Parish 1945 F Date Provider Department Center 02/21/2023 483[facility]YL[facility] No family history on file Level of Service:03894 [place] OFFICE/OUTPATIENT ESTABLISHED MOD MDM 30-39 MIN Reason for Visit and Comments: Follow-up [[id number]] - Pt discharge from hospital 02/20/23 for high potassium , dizziness [facility] Basic Metabolic Panelon - Anion gap [Moles/Vol] 10.7 mmol/L Normal 6.0-15.0 [facility] Comment on above: Performed By: #### B MP ####[facility] [place] [address] [facility] Calcium [Mass/Vol] 8.4 mg/dL Low 8.6-10.3 [facility] Comment on above: Performed By: #### B MP ####[place] [address] [place] [id number] [facility] Chloride [Moles/Vol] 109 mmol/L High 98-107 [facility] Comment on above: Performed By: #### B MP ####[place] [address] [place] [phone] [facility] CO2 [Moles/Vol] 22.7 mmol/L Normal 21.0-31.0 [facility] Comment on above: Performed By: #### B MP ####[place] [address] [place] [phone] [facility] Creatinine [Mass/Vol] 1.68 mg/dL High 0.60-1.20 [facility] Comment on above: Performed By: #### B MP ####[place] [id number] [facility] Creatinine Clr Calc Pharmacy 24.22 Normal [facility] Comment on above: Result Comment: PERF ORMED BY: [facility] [address] [place] [id number] PATHOLOGIST GUM ROLLING MACHINE TENDER MELISSA QUINN M.D. Performed By: #### B MP ####[place] [id number] [facility] GFR/1.73 sq M.predicted MDRD (S/P/Bld) [Vol rate/Area] 31.134 mL/min/{1.73_m2} Normal [facility] Comment on above: Performed By: #### B MP ####[place] [id number] [facility] Glucose [Mass/Vol] 94 mg/dL Normal 70-100 [facility] Comment on above: Result Comment: [place] Glucose Reference Range is dependent on time and content of last meal. Glucose of more than 200 mg/dL in a nonstressed, ambulatory subject supports the diagnosis of Diabetes Mellitus. ADA recommended reference range Performed By: #### B MP ####[facility] [address] [place] [address] [facility] Potassium [Moles/Vol] 4.4 mmol/L Normal 3.5-5.1 [facility] Comment on above: Performed By: #### B MP ####[facility] [place] [address] [facility] Sodium [Moles/Vol] 138 mmol/L Normal 136-145 [facility] Comment on above: Performed By: #### B MP ####[facility] [address] [place] [address] [facility] Urea nitrogen [Mass/Vol] 34 mg/dL High 7-25 [facility] Comment on above: Performed By: #### B MP ####[facility] [place] [phone] [facility] Glucose Poct Glucometerson 0 02-20-2023 Glucose [Mass/Vol] 92 mg/dL Normal [facility] Comment on above: Result Comment: [facility] Glucose Reference Range is dependent on time and content of last meal. Glucose of more than 200 mg/dL in a nonstressed, ambulatory subject supports the diagnosis of Diabetes Mellitus. PERFORMED BY: [place] [address] PATHOLOGIST GUM ROLLING MACHINE TENDER MELISSA QUINN M.D. Performed By: #### G LORENZO ####Point of Care testing, Basic Metabolic Panelon 07- Anion gap [Moles/Vol] 9.8 mmol/L Normal 6.0-15.0 [facility] Comment on above: Performed By: #### B MP #### [facility] [address] [place] [id number] [place] Calcium [Mass/Vol] 8.4 mg/dL Low 8.6-10.3 [facility] Comment on above: Performed By: #### B MP #### [facility] [address] [place] [id number] [place] Chloride [Moles/Vol] 108 mmol/L High 98-107 [facility] Comment on above: Performed By: #### B MP #### [facility] [address] CO2 [Moles/Vol] 25.3 mmol/L Normal 21.0-31.0 [facility] Comment on above: Performed By: #### B MP #### [facility] [address] Creatinine [Mass/Vol] 1.62 mg/dL High 0.60-1.20 [facility] Comment on above: Performed By: #### B MP #### [facility] [address] [place] [address] [place] Creatinine Clr Calc Pharmacy 25.11 Normal [facility] Comment on above: Result Comment: PERF ORMED BY: [place] [address] PATHOLOGIST GUM ROLLING MACHINE TENDER MELISSA QUINN M.D. Performed By: #### B MP #### [address] GFR/1.73 sq M.predicted MDRD (S/P/Bld) [Vol rate/Area] 32.523 mL/min/{1.73_m2} Normal [facility] Comment on above: Performed By: #### B MP #### [address] Glucose [Mass/Vol] 91 mg/dL Normal 70-100 [facility] Comment on above: Result Comment: [place] Glucose Reference Range is dependent on time and content of last meal. Glucose of more than 200 mg/dL in a nonstressed, ambulatory subject supports the diagnosis of Diabetes Mellitus. ADA recommended reference range Performed By: #### B MP #### [place] [address] [place] Potassium [Moles/Vol] 4.1 mmol/L Normal 3.5-5.1 [facility] Comment on above: Performed By: #### B MP #### [place] [address] [place] Sodium [Moles/Vol] 139 mmol/L Normal 136-145 [facility] Comment on above: Performed By: #### B MP #### [facility] [address] [place] [address] [place] Urea nitrogen [Mass/Vol] 34 mg/dL High 02-27 [facility] Comment on above: Performed By: #### B MP #### [facility] [address] [place] [address] [place] Glucose Poct Glucometerson 0 02-19-2023 Glucose [Mass/Vol] 143 mg/dL Normal [facility] Comment on above: Result Comment: [place] Glucose Reference Range is dependent on time and content of last meal. Glucose of more than 200 mg/dL in a nonstressed, ambulatory subject supports the diagnosis of Diabetes Mellitus. PERFORMED BY: [place] [address] PATHOLOGIST GUM ROLLING MACHINE TENDER MELISSA QUINN M.D. Performed By: #### G LULS #### Point of Care testing , Glucose [Mass/Vol] 101 mg/dL Normal [facility] Comment on above: Result Comment: [place] Glucose Reference Range is dependent on time and content of last meal. Glucose of more than 200 mg/dL in a nonstressed, ambulatory subject supports the diagnosis of Diabetes Mellitus. PERFORMED BY: [place] [address] PATHOLOGIST GUM ROLLING MACHINE TENDER MELISSA QUINN M.D. Performed By: #### G LULS #### Point of Care testing , US renal BIon 02-19-2023 US renal BI [facility] Main [place] [address] [place] [address] Ultrasound Report Signed Patient: Trisha Parish MR#: [id number] : 1945 Acct:[id number] Age/Sex: 77 / F ADM Date: 02/17/23 Loc: Room: [address] [place] [address] Type: ADM IN Attending Dr: Mikel Mir MD Ordering Provider: Mikel Mir MD Date of Service: 02/19/23 US/US renal BI: JASMIN r/o [place] or obstruction Copies to: Mikel Mir MD [...] Quintanilla Jr., D.O.02/19/2023 3:58 PM Dictation Location: [place] [address] Tech: Jenna Corado Transcribed By: [facility] 02/19/23 155 Dictated By: Baldo Quintanilla Jr, DO 02/19/23 155 Signed By: 02/19/231557 Normal [facility] Coagulation Profileon 2022 aPTT Coag (Bld) [Time] 31.5 s Normal 25.1-36.5 [facility] Comment on above: Result Comment: PERF ORMED BY: [facility] [address] [facility] [place] [address] PATHOLOGIST GUM ROLLING MACHINE TENDER MELISSA QUINN M.D. Performed By: #### C MP, MG, PP, CBCNO ####[place] [address] [place] [phone] [facility] INR Coag (PPP) [Relative time] 1.3 {INR} Normal [facility] Comment on above: Result Comment: [...] By: #### C MP, MG, PP, CBCNO ####[facility] [address] [place] [phone] [facility] PT Coag (PPP) [Time] 15.2 s High 9.0-12.9 [facility] Comment on above: Performed By: #### C MP, MG, PP, CBCNO ####[place] [address] [place] [address] [facility] Comprehensive Metabolic Pane otto 02-18-2023 Albumin [Mass/Vol] 3.5 g/dL Normal 3.5-5.7 [facility] Comment on above: Performed By: #### C MP, MG, PP, CBCNO ####[address] Albumin/Globulin [Mass ratio] 1.3 {ratio} Normal [facility] Comment on above: Performed By: #### C MP, MG, PP, CBCNO ####[address] ALP [Catalytic activity/Vol] 83 U/L Normal 34-104 [facility] Comment on above: Performed By: #### C MP, MG, PP, CBCNO ####[address] ALT [Catalytic activity/Vol] 13 U/L Normal 7-52 [facility] Comment on above: Performed By: #### C MP, MG, PP, CBCNO ####[address] Anion gap [Moles/Vol] 11.0 mmol/L Normal 6.0-15.0 [facility] Comment on above: Performed By: #### C MP, MG, PP, CBCNO ####[address] AST [Catalytic activity/Vol] 16 U/L Normal 13-39 [facility] Comment on above: Performed By: #### C MP, MG, PP, CBCNO ####[address] Bilirubin [Mass/Vol] 0.7 mg/dL Normal 0.3-1.0 [facility] Comment on above: Performed By: #### C MP, MG, PP, CBCNO ####[address] Calcium [Mass/Vol] 8.4 mg/dL Low 8.6-10.3 [facility] [facility] Comment on above: Performed By: #### C MP, MG, PP, CBCNO ####[place] [id number] [place] [id number] [facility] Chloride [Moles/Vol] 108 mmol/L High 98-107 [facility] Comment on above: Performed By: #### C MP, MG, PP, CBCNO ####[place] [id number] [facility] CO2 [Moles/Vol] 24.4 mmol/L Normal 21.0-31.0 [facility] Comment on above: Performed By: #### C MP, MG, PP, CBCNO ####[place] [phone] [facility] Creatinine [Mass/Vol] 1.91 mg/dL High 0.60-1.20 [facility] Comment on above: Performed By: #### C MP, MG, PP, CBCNO ####[address] Creatinine Clr Calc Pharmacy 21.30 [facility] Comment on above: Performed By: #### C MP, MG, PP, CBCNO ####[place] [id number] [facility] GFR/1.73 sq M.predicted MDRD (S/P/Bld) [Vol rate/Area] 26.691 mL/min/{1.73_m2} [facility] Comment on above: Performed By: #### C MP, MG, PP, CBCNO ####[place] [phone] [facility] Globulin (S) [Mass/Vol] 2.7 g/dL [facility] Comment on above: Performed By: #### C MP, MG, PP, CBCNO ####[place] [phone] [facility] Glucose [Mass/Vol] 92 mg/dL Normal 70-100 [facility] Comment on above: Result Comment: [place] Gl[place] Reference Range is dependent on time and content of last meal. Glucose of more than 200 mg/dL in a nonstressed, ambulatory subject supports the diagnosis of Diabetes Mellitus. ADA recommended reference range Performed By: #### C MP, MG, PP, CBCNO ####[facility] [id number] Potassium [Moles/Vol] 4.4 mmol/L Normal 3.5-5.1 [facility] Comment on above: Performed By: #### C MP, MG, PP, CBCNO ####[place] [id number] Protein [Mass/Vol] 6.2 g/dL Low 6.4-8.9 [facility] Comment on above: Performed By: #### C MP, MG, PP, CBCNO ####[address] Sodium [Moles/Vol] 139 mmol/L Normal 136-145 [facility] Comment on above: Performed By: #### C MP, MG, PP, CBCNO ####[place] [id number] Urea nitrogen [Mass/Vol] 35 mg/dL High 7-25 [facility] Comment on above: Performed By: #### C MP, MG, PP, CBCNO ####[place] [id number] Dipstick and Microscopicon 0 02-18-2023 Appearance (U) Clear Normal Clear [facility] Comment on above: Order Comment: Name Collection Type:: Clean-Voided Midstream Performed By: #### A DDONUAPLUS, CUU #### [facility] [address] [place] [address] [place] Bacteria,Urine None Seen Normal None Seen [facility] Comment on above: Order Comment: Name Collection Type:: Clean-Voided Midstream Performed By: #### A DDONUAPLUS, CUU #### [facility] [address] [place] [address] [place] Bilirubin,Urine Negative Normal Negative [facility] Comment on above: Order Comment: Name Collection Type:: Clean-Voided Midstream Performed By: #### A DDONUAPLUS, CUU #### [facility] [address] [place] [address] [place] Color (U) Yellow Normal Yellow [facility] Comment on above: Order Comment: Name Collection Type:: Clean-Voided Midstream Performed By: #### A DDONUAPLUS, CUU #### [address] Glucose Ql (U) Normal Normal Normal [facility] Comment on above: Order Comment: Name Collection Type:: Clean-Voided Midstream Performed By: #### A DDONUAPLUS, CUU #### [address] Hyaline Casts,Urine None Seen Normal 0-8 [place] Comment on above: Order Comment: Name Collection Type:: Clean-Voided Midstream Result Comment: PERF ORMED BY: [place] [address] PATHOLOGIST GUM ROLLING MACHINE TENDER MELISSA QUINN M.D. Performed By: #### A DDONUAPLUS, CUU #### [address] Ketones Ql (U) Negative Normal Negative [facility] Comment on above: Order Comment: Name Collection Type:: Clean-Voided Midstream Performed By: #### A DDONUAPLUS, CUU #### [address] Leukocyte esterase Test strip Ql (U) 3+ High Negative [facility] Comment on above: Order Comment: Name Collection Type:: Clean-Voided Midstream Performed By: #### A DDONUAPLUS, CUU #### [place] [address] [place] Nitrite,Urine Negative Normal Negative [facility] Comment on above: Order Comment: Name Collection Type:: Clean-Voided Midstream Performed By: #### A DDONUAPLUS, CUU #### [address] Occult Blood,Urine Negative Normal Negative [facility] Comment on above: Order Comment: Name Collection Type:: Clean-Voided Midstream Result Comment: PERF ORMED BY: [place] [address] PATHOLOGIST GUM ROLLING MACHINE TENDER MELISSA QUINN M.D. Performed By: #### A DDONUAPLUS, CUU #### [address] pH (U) 7.5 [pH] Normal 5.0-9.0 [facility] Comment on above: Order Comment: Name Collection Type:: Clean-Voided Midstream Performed By: #### A DDONUAPLUS, CUU #### [address] Protein,Urine Negative Normal Negative [facility] Comment on above: Order Comment: Name Collection Type:: Clean-Voided Midstream Performed By: #### A DDONUAPLUS, CUU #### [address] RBC LM.HPF (Urine sed) [#/Area] 0 /[HPF] Normal 0-4 [facility] Comment on above: Order Comment: Name Collection Type:: Clean-Voided Midstream Performed By: #### A DDONUAPLUS, CUU #### [address] Specificy [place],Urine 1.006 Normal 1.001-1.030 [facility] Comment on above: Order Comment: Name Collection Type:: Clean-Voided Midstream Performed By: #### A DDONUAPLUS, CUU #### [place] [address] [place] Squamous Epithelial Cell,Urine None Seen Normal 0-2 [facility] Comment on above: Order Comment: Name Collection Type:: Clean-Voided Midstream Performed By: #### A DDONUAPLUS, CUU #### [address] Urobilinogen,Urine Normal Normal Normal [facility] Comment on above: Order Comment: Name Collection Type:: Clean-Voided Midstream Performed By: #### A DDONUAPLUS, CUU #### [facility] [address] WBC,Urine 5-9 High 0-4 [facility] Comment on above: Order Comment: Name Collection Type:: Clean-Voided Midstream Performed By: #### A DDONUAPLUS, CUU #### [facility] [address] [place] [address] ECG 12 lead ECGon 02-18-2023 ECG 12 lead ECG [facility] Main [place] [address] [place] [address] Electrocardiograph Report Signed Patient: Trisha Parish MR#: [id number] : 1945 Acct:[id number] Age/Sex: 77 / F ADM Date: 02/17/23 Loc: Room: [address] [place] [address] Type: ADM IN Attending Dr: Kevin Mejia [...] Nessa Abdi MD 0 02/18/23 1047 Normal [facility] Glucose Poct Glucometerson 0 02-18-2023 Glucose [Mass/Vol] 94 mg/dL Normal [facility] Comment on above: Result Comment: [place] Glucose Reference Range is dependent on time and content of last meal. Glucose of more than 200 mg/dL in a nonstressed, ambulatory subject supports the diagnosis of Diabetes Mellitus. PERFORMED BY: [facility] [address] [place] [address] PATHOLOGIST GUM ROLLING MACHINE TENDER MELISSA QUINN M.D. Performed By: #### G LULS #### Point of Care testing , Glucose [Mass/Vol] 194 mg/dL Normal [facility] Comment on above: Result Comment: [facility] Glucose Reference Range is dependent on time and content of last meal. Glucose of more than 200 mg/dL in a nonstressed, ambulatory subject supports the diagnosis of Diabetes Mellitus. PERFORMED BY: [place] [address] PATHOLOGIST GUM ROLLING MACHINE TENDER MELISSA QUINN M.D. Performed By: #### G LULS #### Point of Care testing , Hemogram CBC Without Diffon 02-18-2023 Erythrocyte distribution width (RBC) [Ratio] 14.4 % Normal 11.9-15.3 [facility] Comment on above: Performed By: #### C MP, MG, PP, CBCNO #### [facility] [address] [place] [address] Hematocrit (Bld) [Volume fraction] 32.7 % Low 34.0-46.4 [facility] Comment on above: Performed By: #### C MP, MG, PP, CBCNO #### [facility] [address] [place] [address] [place] Hemoglobin (Bld) [Mass/Vol] 10.8 g/dL Low 11.8-15.4 [facility] Comment on above: Performed By: #### C MP, MG, PP, CBCNO #### [facility] [address] [place] [address] [place] MCH (RBC) [Entitic mass] 28.8 pg Normal 24.7-34.3 [facility] Comment on above: Performed By: #### C MP, MG, PP, CBCNO #### [facility] [address] [place] [address] [place] MCV (RBC) [Entitic vol] 87.0 fL Normal 80-100 [facility] Comment on above: Performed By: #### C MP, MG, PP, CBCNO #### [address] Mean Corpuscular HGB Conc 33.1 g/dL Normal 32.0-35.0 [facility] Comment on above: Performed By: #### C MP, MG, PP, CBCNO #### [address] Platelet mean volume (Bld) [Entitic vol] 10.2 fL Normal 6.3-10.7 [facility] Comment on above: Result Comment: PERF ORMED BY: [place] [address] PATHOLOGIST GUM ROLLING MACHINE TENDER MELISSA QUINN M.D. Performed By: #### C MP, MG, PP, CBCNO #### [address] Platelets (Bld) [#/Vol] 185 10*3/uL Normal 150-450 [facility] Comment on above: Performed By: #### C MP, MG, PP, CBCNO #### [address] RBC (Bld) [#/Vol] 3.76 10*6/uL Normal 3.60-5.00 [place] Comment on above: Performed By: #### C MP, MG, PP, CBCNO #### [address] WBC (Bld) [#/Vol] 7.2 10*3/uL Normal 3.8-11.6 [facility] Comment on above: Performed By: #### C MP, MG, PP, CBCNO #### [address] Magnesiumon 02-18-2023 Magnesium [Mass/Vol] 1.9 mg/dL Normal 1.9-2.7 [facility] Comment on above: Result Comment: PERF ORMED BY: [place] [address] PATHOLOGIST GUM ROLLING MACHINE TENDER MELISSA QUINN M.D. Performed By: #### C MP, MG, PP, CBCNO ####[facility] [id number] Troponin I High Sensitivityo n 02-18-2023 Troponin I High Sensitivity 55.0 pg/mL Off scale high 0.0-15.0 [facility] Comment on above: Result Comment: Crit ical Result : Called to and read back by: ROYAL DAILY at: 02/18/2023 07:39:39 by:[id number] PERFORMED BY: [place] [address] PATHOLOGIST GUM ROLLING MACHINE TENDER MELISSA QUINN M.D. Performed By: #### H S TROP #### [facility] [address] [place] [address] Urine Cultureon 02-18-2023 Bacteria identified Cx Nom (U) >100,000 colonies/ml mixed bacterial skin contaminants 2 Days PERFORMED BY: [place] [address] PATHOLOGIST GUM ROLLING MACHINE TENDER MELISSA QUINN M.D. Normal [facility] Comment on above: Performed By: #### A DDONUAPLUS, CUU #### [place] [id number] [facility] Telephoneon 02-16-2023 Telephone [phone] Trisha Parish 1945 F Date Provider Department Center 02/16/2023 WILY ASHLEY [facility] [place] [facility] No family history on file Normal [facility] Orders Onlyon 02-09-2023 Orders Only [id number] Trisha Parish 1945 F Date Provider Department [place] 02/09/2023 MARGARET COLLINS [facility] [place] [facility] No family history on file Normal [facility] 30on 02-07-2023 30 The patient is Moder ately Stable - Low risk of patient condition declining or worsening The patient's goals for the shift include comfort The clinical goals for the shift include VSS Over the shift, the patient did not make progress toward the following goals. Barriers to progression include . Recommendations to address these barriers include . Normal [facility] 30 The patient is Moder ately Stable - Low risk of patient condition declining or worsening The patient's goals for the shift include comfort, rest The clinical goals for the shift include stable Over the shift, the patient did not make progress toward the following goals. Barriers to progression include . Recommendations to address these barriers include . Normal [facility] BASIC METABOLIC PANELon 07-0 Anion gap [Moles/Vol] 10 mmol/L Normal 7-20 [facility] Comment on above: Performed By: #### L [id number] ####[facility] ([facility])[address] [place] [address] Calcium [Mass/Vol] 8.6 mg/dL Normal 8.6-10.3 [facility] Comment on above: Performed By: #### L [id number] ####[facility] ([facility])[address] [place] [address] Chloride [Moles/Vol] 109 mmol/L High 98-107 [facility] Comment on above: Performed By: #### L [id number] ####[facility] ([facility])[address] [place] [address] CO2 [Moles/Vol] 25 mmol/L Normal 21- [facility] Comment on above: Performed By: #### L [id number] ####[facility] ([facility])[address] [place] [address] Creatinine [Mass/Vol] 1.40 mg/dL High 0.60-1.20 [facility] Comment on above: Performed By: #### L [id number] ####[facility] ([facility])[address] [place] [address] GLOMERULAR FILTRATION RATE ML/MIN/1.73 SQ M.PREDICTED 38.7 mL/min/1.73m*2 Low >60.0 [facility] Comment on above: Result Comment: The [facility]???s estimated glomerular filtration rate (eGFR) will no [...] of individuals. Performed By: #### L [id number] ####[facility] ([facility])[address] [place] [address] Glucose [Mass/Vol] 115 mg/dL High 70-100 [facility] Comment on above: Performed By: #### L [id number] ####[facility] ([facility])[address] [place] [address] Potassium [Moles/Vol] 3.9 mmol/L Normal 3.5-5.1 [facility] Comment on above: Performed By: #### L [id number] ####[facility] ([facility])[address] [place] [address] Sodium [Moles/Vol] 140 mmol/L Normal 136-145 [facility] Comment on above: Performed By: #### L [id number] ####[facility] ([facility])[address] [place] [address] Urea nitrogen [Mass/Vol] 32 mg/dL High 7-25 [facility] Comment on above: Performed By: #### L [id number] ####[facility] ([facility])[address] [place] [address] UREA NITROGEN/CREATININE (MASS RATIO) IN SER/PLAS 22.9 Normal [facility] Comment on above: Performed By: #### L [id number] ####[facility] ([facility])[address] [place] [address] MAGNESIUMon 02-07-2023 Magnesium [Mass/Vol] 2.0 mg/dL Normal 1.9-2.7 [facility] Comment on above: Performed By: #### L [id number] #### [facility] [address] [place] [address] BASIC METABOLIC PANELon 07-0 Anion gap [Moles/Vol] 10 mmol/L Normal 7-20 [facility] Comment on above: Performed By: #### L [id number] #### [facility] ([facility]) [address] [place] [address] Calcium [Mass/Vol] 8.6 mg/dL Normal 8.6-10.3 [facility] Comment on above: Performed By: #### L [id number] #### [facility] [address] [place] [address] Chloride [Moles/Vol] 109 mmol/L High 98-107 [facility] Comment on above: Performed By: #### L [id number] #### [facility] [address] [place] [address] CO2 [Moles/Vol] 25 mmol/L Normal 21-31 [facility] Comment on above: Performed By: #### L [id number] #### [facility] ([facility]) [address] [place] [address] Creatinine [Mass/Vol] 1.32 mg/dL High 0.60-1.20 [facility] Comment on above: Performed By: #### L [id number] #### [facility] ([facility]) [address] [place] [address] GLOMERULAR FILTRATION RATE ML/MIN/1.73 SQ M.PREDICTED 41.6 mL/min/1.73m*2 Low >60.0 [facility] Comment on above: Result Comment: The [facility]???s estimated glomerular filtration rate (eGFR) will no [...] group of individuals. Performed By: #### L [id number] #### [facility] ([facility]) [address] [place] [address] Glucose [Mass/Vol] 142 mg/dL High 70-100 [facility] Comment on above: Performed By: #### L [id number] #### [facility] ([facility]) [address] [place] [address] Potassium [Moles/Vol] 3.8 mmol/L Normal 3.5-5.1 [facility] Comment on above: Performed By: #### L [id number] #### [facility] ([facility] [address] [place] [address] Sodium [Moles/Vol] 140 mmol/L Normal 136-145 [facility] Comment on above: Performed By: #### L [id number] #### [facility] ([facility]) [address] [place] [address] Urea nitrogen [Mass/Vol] 31 mg/dL High 7-25 [facility] Comment on above: Performed By: #### L [id number] #### [facility] [address] [place] [address] UREA NITROGEN/CREATININE (MASS RATIO) IN SER/PLAS 23.5 Normal [facility] Comment on above: Performed By: #### L [id number] #### [facility] [address] [place] [address] CBCon 02-06-2023 Erythrocyte distribution width (RBC) [Ratio] 14.1 % Normal 11.5-15.0 [facility] Comment on above: Performed By: #### L [id number] #### [facility] [address] [place] [address] ERYTHROCYTE MEAN CORPUSCULAR HEMOGLOBIN CONCENTRATION (G/DL) BY AUTOMATED 33.6 g/dL Normal 32.0-35.0 [facility] Comment on above: Performed By: #### L [id number] #### [facility] [address] [place] [address] Hematocrit (Bld) [Volume fraction] 33.3 % Low 36.0-48.0 [facility] Comment on above: Performed By: #### L [id number] #### [facility] [address] [place] [address] Hemoglobin (Bld) [Mass/Vol] 11.2 g/dL Low 12.0-15.0 [facility] Comment on above: Performed By: #### L [id number] #### [facility] ([facility]) [address] [place] [address] MCH (RBC) [Entitic mass] 29.3 pg Normal 27.0-33.0 [facility] Comment on above: Performed By: #### L [id number] #### [facility]) [address] [place] [address] MCV (RBC) [Entitic vol] 87.2 fL Normal 82.0-98.0 [facility] Comment on above: Performed By: #### L [id number] #### [facility] [address] [place] [address] PLATELETS (10*3/UL) IN BLOOD AUTOMATED COUNT 152 10*3/uL Normal 150-400 [facility] Comment on above: Performed By: #### L [id number] #### [facility] [address] [place] [address] RBC (Bld) [#/Vol] 3.82 10*6/uL Normal 3.80-5.00 [facility] Comment on above: Performed By: #### L [id number] #### [facility] [address] [place] [address] WBC (Bld) [#/Vol] 6.44 10*3/uL Normal 4.00-10.60 [facility] Comment on above: Performed By: #### L [id number] #### [facility] ([facility]) [address] [place] [address] CONSULTon 02-06-2023 CONSULT Inpatient consult to Cardiothoracic [...] per patient for which she saw her barking machine feeder Dr. Soto- medications were adjusted and pacemaker [...] is not (more content not included)... Normal [facility] MAGNESIUMon 02-06-2023 Magnesium [Mass/Vol] 1.7 mg/dL Low 1.9-2.7 [facility] Comment on above: Performed By: #### L [id number] #### [facility] ([facility]) [address] [place] [address] 30on 02-05-2023 30 The patient is Moder [...] and maintained or improved Outcome: Progressing Normal [facility] 30 Daily Case Managemen t Update Multidisciplinary [...] PT Recommendations: OT Recommendations: New Consults: Normal [facility] 30 Problem: Pain - Adul t Goal: [...] Flowsheets (Taken 02/05/2023745) Free from fall injury: [place] fall precautions as indicated by assessment Educate [...] goals for the shift include vss Normal [facility] 30 The patient is Moder ately Stable - Low risk of patient condition declining or worsening The patient's goals for the shift include comfort The clinical goals for the shift include vss Normal [facility] BASIC METABOLIC PANELon 07-0 Anion gap [Moles/Vol] 12 mmol/L Normal - [facility] Comment on above: Performed By: #### L [id number] #### [facility] ([facility]) [address] [place] [address] Calcium [Mass/Vol] 8.8 mg/dL Normal 8.6-10.3 [facility] Comment on above: Performed By: #### L [id number] #### [facility] ([facility]) [address] [place] [address] Chloride [Moles/Vol] 107 mmol/L Normal 98-107 [facility] Comment on above: Performed By: #### L [id number] #### [facility] ([facility]) [address] [place] [address] CO2 [Moles/Vol] 25 mmol/L Normal 21-31 [facility] Comment on above: Performed By: #### L [id number] #### [facility] ([facility]) [address] [place] [address] Creatinine [Mass/Vol] 1.18 mg/dL Normal 0.60-1.20 [facility] Comment on above: Performed By: #### L [id number] #### [facility] ([facility]) [address] [place] [address] GLOMERULAR FILTRATION RATE ML/MIN/1.73 SQ M.PREDICTED 47.6 mL/min/1.73m*2 Low >60.0 [facility] Comment on above: Result Comment: The [facility]???s estimated glomerular filtration rate (eGFR) will no [...] individuals. Performed By: #### L [id number] #### [facility] ([facility]) [address] [place] [address] Glucose [Mass/Vol] 99 mg/dL Normal 70-100 [facility] Comment on above: Performed By: #### L [id number] #### [facility] ([facility]) [address] [place] [address] Potassium [Moles/Vol] 3.8 mmol/L Normal 3.5-5.1 [facility] Comment on above: Performed By: #### L [id number] #### [facility] ([facility]) [address] [place] [address] Sodium [Moles/Vol] 140 mmol/L Normal 136-145 [facility] Comment on above: Performed By: #### L [id number] #### [facility] ([facility]) [address] [place] [address] Urea nitrogen [Mass/Vol] 28 mg/dL High 7-25 [facility] Comment on above: Performed By: #### L [id number] #### [facility] ([facility]) [address] [place] [address] UREA NITROGEN/CREATININE (MASS RATIO) IN SER/PLAS 23.7 Normal [facility] Comment on above: Performed By: #### L [id number] #### [facility] ([facility]) [address] [place] [address] Anion gap [Moles/Vol] 12 mmol/L Normal 7-20 [facility] Comment on above: Performed By: #### L [id number] #### [facility] ([facility]) [address] [place] [address] Calcium [Mass/Vol] 9.0 mg/dL Normal 8.6-10.3 [facility] Comment on above: Performed By: #### L [id number] #### [facility] ([facility] [address] [place] [address] Chloride [Moles/Vol] 107 mmol/L Normal 98-107 [facility] Comment on above: Performed By: #### L [id number] #### [facility] [facility]) [address] [place] [address] CO2 [Moles/Vol] 23 mmol/L Normal 21-31 [facility] Comment on above: Performed By: #### L [id number] #### [facility] ([facility] [address] [place] [address] Creatinine [Mass/Vol] 1.12 mg/dL Normal 0.60-1.20 [facility] Comment on above: Performed By: #### L [id number] #### [facility] ([facility]) [address] [place] [address] GLOMERULAR FILTRATION RATE ML/MIN/1.73 SQ M.PREDICTED 50.6 mL/min/1.73m*2 Low >60.0 [facility] Comment on above: Result Comment: The [facility]???s estimated glomerular filtration rate (eGFR) will no [...] individuals. Performed By: #### L [id number] #### [facility] ([facility]) [address] [place] [address] Glucose [Mass/Vol] 121 mg/dL High 70-100 [facility] Comment on above: Performed By: #### L [id number] #### [facility] ([facility]) [address] [place] [address] Potassium [Moles/Vol] 3.8 mmol/L Normal 3.5-5.1 [facility] Comment on above: Performed By: #### L [id number] #### [facility] ([facility]) [address] [place] [address] Sodium [Moles/Vol] 138 mmol/L Normal 136-145 [facility] Comment on above: Performed By: #### L [id number] #### [facility] ([facility]) [address] [place] [address] Urea nitrogen [Mass/Vol] 28 mg/dL High 7-25 [facility] Comment on above: Performed By: #### L [id number] #### [facility] ([facility]) [address] [place] [address] UREA NITROGEN/CREATININE (MASS RATIO) IN SER/PLAS 25.0 Normal [facility] Comment on above: Performed By: #### L [id number] #### [facility] ([facility]) [address] [place] [address] CBC WITH AUTO DIFFERENTIALon 02-05-2023 Basophils (Bld) [#/Vol] 0.03 10*3/uL Normal 0.00-0.20 [facility] Comment on above: Performed By: #### L [id number] #### [facility] ([facility]) [address] [place] [address] Basophils/100 WBC (Bld) 0.4 % Normal 0.0-1.0 [facility] Comment on above: Performed By: #### L [id number] #### [facility] ([facility]) [address] [place] [address] Eosinophils (Bld) [#/Vol] 0.65 10*3/uL High 0.00-0.50 [facility] Comment on above: Performed By: #### L [id number] #### [facility] ([facility]) [address] [place] [address] Eosinophils/100 WBC (Bld) 8.6 % High 0.0-6.0 [facility] Comment on above: Performed By: #### L [id number] #### [facility] ([facility]) [address] [place] [address] Erythrocyte distribution width (RBC) [Ratio] 14.1 % Normal 11.5-15.0 [facility] Comment on above: Performed By: #### L [id number] #### [facility] ([facility] [address] [place] [address] ERYTHROCYTE MEAN CORPUSCULAR HEMOGLOBIN CONCENTRATION (G/DL) BY AUTOMATED 33.1 g/dL Normal 32.0-35.0 [facility] Comment on above: Performed By: #### L [id number] #### [facility] ([facility] [address] [place] [address] Hematocrit (Bld) [Volume fraction] 37.5 % Normal 36.0-48.0 [facility] Comment on above: Performed By: #### L [id number] #### [facility] ([facility]) [address] [place] [address] Hemoglobin (Bld) [Mass/Vol] 12.4 g/dL Normal 12.0-15.0 [facility] Comment on above: Performed By: #### L [id number] #### [facility] ([facility]) [address] [place] [address] Immature granulocytes (Bld) [#/Vol] 0.02 10*3/uL Normal 0.00-0.20 [facility] Comment on above: Performed By: #### L [id number] #### [facility] ([facility]) [address] [place] [address] Immature granulocytes/100 WBC (Bld) 0.3 % Normal 0.0-1.0 [facility] Comment on above: Performed By: #### L [id number] #### [facility] ([facility]) [address] [place] [address] Lymphocytes (Bld) [#/Vol] 1.46 10*3/uL Normal 1.20-4.00 [facility] Comment on above: Performed By: #### L [id number] #### [facility] ([facility] [address] [place] [address] Lymphocytes/100 WBC (Bld) 19.3 % Low 20.0-45.0 [facility] Comment on above: Performed By: #### L [id number] #### [facility] ([facility]) [address] [place] [address] MCH (RBC) [Entitic mass] 28.8 pg Normal 27.0-33.0 [facility] Comment on above: Performed By: #### L [id number] #### [facility] ([facility]) [address] [place] [address] MCV (RBC) [Entitic vol] 87.0 fL Normal 82.0-98.0 [facility] Comment on above: Performed By: #### L [id number] #### [facility] ([facility]) [address] [place] [address] Monocytes (Bld) [#/Vol] 0.69 10*3/uL Normal 0.10-1.00 [facility] Comment on above: Performed By: #### L [id number] #### [facility] ([facility]) [address] [place] [address] Monocytes/100 WBC (Bld) 9.1 % Normal 5.0-12.0 [facility] Comment on above: Performed By: #### L [id number] #### [facility] ([facility]) [address] [place] [address] Neutrophils (Bld) [#/Vol] 4.73 10*3/uL Normal 1.60-7.60 [facility] Comment on above: Performed By: #### L [id number] #### [facility] ([facility]) [address] [place] [address] Neutrophils/100 WBC (Bld) 62.3 % Normal 40.0-72.0 [facility] Comment on above: Performed By: #### L [id number] #### [facility] ([facility]) [address] [place] [address] NRBC (PER 100 WBCS) BY AUTOMATED COUNT 0.0 % Normal 0 [facility] Comment on above: Performed By: #### L [id number] #### [facility] ([facility]) [address] [place] [address] PLATELETS (10*3/UL) IN BLOOD AUTOMATED COUNT 175 10*3/uL Normal 150-400 [facility] Comment on above: Performed By: #### L [id number] #### [facility] ([facility]) [address] [place] [address] RBC (Bld) [#/Vol] 4.31 10*6/uL Normal 3.80-5.00 [facility] Comment on above: Performed By: #### L [id number] #### [facility] ([facility]) [address] [place] [address] WBC (Bld) [#/Vol] 7.58 10*3/uL Normal 4.00-10.60 [facility] Comment on above: Performed By: #### L [id number] #### [facility] ([facility]) [address] [place] [address] CONSULTon 02-05-2023 CONSULT ----- ----- Attestation signed [...] The patient is very high risk. ----- [facility] [facility] Consult Note Reason for visit: near-syncope [...] PMH: Past Medical History: Diagnosis Date A-fib ([facility]) Cancer ([facility]) Coronary artery disease Hypertension Myocardial infarct ([facility]) Stroke ([facility]) PSH: Past Surgical History: Procedure Laterality Date [...] no lightheadedness, (more content not included)... Normal [facility] HEPATIC FUNCTION PANELon Albumin [Mass/Vol] 3.8 g/dL Normal 3.5-5.7 [facility] Comment on above: Performed By: #### L [id number] #### [facility] ([facility]) [address] [place] [address] ALP [Catalytic activity/Vol] 92 U/L Normal 34-104 [facility] Comment on above: Performed By: #### L [id number] #### [facility] ([facility]) [address] [place] [address] ALT [Catalytic activity/Vol] 11 U/L Normal 7-52 [facility] Comment on above: Performed By: #### L [id number] #### [facility] ([facility]) [address] [place] [address] AST [Catalytic activity/Vol] 23 U/L Normal 13-39 [facility] Comment on above: Performed By: #### L [id number] #### [facility] ([facility]) [address] [place] [address] Bilirubin [Mass/Vol] 0.8 mg/dL Normal 0.3-1.0 [facility] Comment on above: Performed By: #### L [id number] #### [facility] ([facility]) [address] [place] [address] Magnesium [Mass/Vol] 0.1 mg/dL Normal 0-0.2 [facility] Comment on above: Performed By: #### L [id number] #### [facility] ([facility]) [address] [place] [address] Protein [Mass/Vol] 6.5 g/dL Normal 6.0-8.3 [facility] Comment on above: Performed By: #### L [id number] #### [facility] ([facility]) [address] [place] [address] HPon 02-05-2023 HP H&P reviewed. The pa tient was examined and there are no changes to the H&P. Normal [facility] HP H&P reviewed. The pa tient was examined and there are no changes to the H&P. Normal [facility] HP ----- ----- Attestation signed by Matilda [...] The patient is very high risk. ----- [facility] Consult [facility] Reason for visit: near-syncope [...] no lightheadedness, (more content not included)... Normal [facility] MAGNESIUMon 02-05-2023 Magnesium [Mass/Vol] 1.4 mg/dL Low 1.9-2.7 [facility] Comment on above: Performed By: #### L [id number] #### [facility] ([facility]) [address] [place] [address] TROPONIN Ion 02-05-2023 Troponin I.cardiac [Mass/Vol] 0.25 ng/mL Critically high 0.00-0.04 [facility] Comment on above: Result Comment: [place] EVIOUS CRITICAL RESULT Previous result verified on 02/05/2023 0550 on specimen/case [id number] called with component Troponin I for procedure Troponin I with value 0.21 ng/mL. Performed By: #### L [id number] ####[facility] ([facility])[address] [place] [address] Troponin I.cardiac [Mass/Vol] 0.21 ng/mL Critically high 0.00-0.04 [facility] Comment on above: Result Comment: [place] EVIOUS CRITICAL RESULT Previous result verified on 02/05/2023 0053 on specimen/case [id number] called with component Troponin I for procedure Troponin I with value 0.27 ng/mL. Performed By: #### L [id number] #### [facility] ([facility]) [address] [place] [address] Troponin I.cardiac [Mass/Vol] 0.27 ng/mL Critically high 0.00-0.04 [facility] Comment on above: Result Comment: M-TR OPONIN INITIAL CRITICAL HIGH; RESPUN AND RETESTED Performed By: #### L [id number] #### [facility] ([facility]) [address] [place] [address] HPon 01-23-2023 [facility] Electrophysiology Consult [...] stenosis, CKD. She was recently admitted to [facility] for weakness, suspected to [...] stroke who presented with generalized weakness to [facility]. At [facility], EKG demonstarted a 2:1 AV block with prolonged FL interval 266. Chest x-ray demonstrated possible trace [...] heart rate 59. Patient was transferred to [facility] for further evaluation by [...] tablet anastrozole (more content not included)... Normal [facility] Office Visiton 01-23-2023 Follow-up visit [id number] Trisha Parish 1945 F Date Provider Department Center 01/23/2023 241-DOE SOTO CARD [facility] No family history on file Level of Service:87029 [place] OFFICE/OUTPATIENT NEW MODERATE MDM 45-59 MINUTES Reason for Visit and Comments: Follow-up [346803] - 3 month follow up Normal [facility] Office Visiton 01-17-2023 Follow-up visit [id number] Trisha Parish 1945 F Date Provider Department Center 01/17/2023 TOÑO SIMPSON [facility] No family history on file Level of Service:62274 [place] OFFICE/OUTPATIENT ESTABLISHED MOD MDM 30-39 MIN Reason for Visit and Comments: Valve Disorder [3372] Atrial Fibrillation [80] Coronary Artery Disease [187] Normal [facility] PTH INTACTon 10-07-2022 PTH, Intact 45 pg/mL Normal 15-65 [facility] Comment on above: Performed By: #### P T, PTT #### [facility] [address] [place] [address] Dr. Madisyn Bentley Office Visiton 10-06-2022 Follow-up visit [id number] Trisha Parish 1945 F Date Provider Department Center 10/06/2022 MIKAYLA AUSTIN [facility] No family history on file Level of Service:83720 [place] OFFICE/OUTPATIENT ESTABLISHED LOW MDM 20-29 MIN Reason for Visit and Comments: Hypertension [807070] Normal [facility] RENAL FUNCTION PANELon 10-06 Albumin [Mass/Vol] 3.3 g/dL Critically low 3.4-5.0 [facility] Comment on above: Performed By: #### R ENAL #### [facility] [address] [address] [address] Madisyn Bentley Calcium [Mass/Vol] 8.2 mg/dL Critically low 8.5-10.1 [facility] Comment on above: Performed By: #### R ENAL #### [facility] [address] [address] [address] Madisyn Bentley Chloride [Moles/Vol] 110 mmol/L Critically high 98-107 [facility] Comment on above: Performed By: #### R ENAL #### [facility] [address] [address] [address] Madisyn Bentley CO2 [Moles/Vol] 22.2 mmol/L Normal 21.0-32.0 [facility] Comment on above: Performed By: #### R ENAL #### [facility] [address] [address] [address] Madisyn Bentley Creatinine [Mass/Vol] 1.36 mg/dL Critically high 0.55-1.02 [facility] Comment on above: Performed By: #### R ENAL #### [facility] [address] [address] [address] Madisyn Bentley EGFR-AF GHANAIAN 46 mL/min/1.73m2 Critically low >=60 [facility] Comment on above: Performed By: #### R ENAL #### [facility] [address] [address] [address] Madisyn Bentley EGFR-NON AF GHANAIAN 38 mL/min/1.73m2 Critically low >=60 [facility] Comment on above: Performed By: #### R ENAL #### [facility] [address] [address] [address] Madisyn Bentley Glucose [Mass/Vol] 145 mg/dL Critically high 74-106 [facility] Comment on above: Performed By: #### R ENAL #### [facility] [address] [address] [address] Madisyn Bentley Phosphate [Mass/Vol] 2.7 mg/dL Normal 2.6-4.7 [facility] Comment on above: Performed By: #### R ENAL #### [facility] [address] [address] [address] Madisyn Bentley Potassium [Moles/Vol] 3.9 mmol/L Normal 3.5-5.1 [facility] Comment on above: Performed By: #### R ENAL #### [facility] [address] [address] [address] Madisyn Bentley Sodium [Moles/Vol] 143 mmol/L Normal 136-145 [facility] Comment on above: Performed By: #### R ENAL #### [facility] [address] [address] [address] Madisyn Bentley Urea nitrogen [Mass/Vol] 24.0 mg/dL Critically high 7.0-18.0 [facility] Comment on above: Performed By: #### R ENAL #### [facility] [address] [place] [address] Dr. Madisyn Bentley UA RANDOMon 10-06-2022 Bilirubin Ql (U) Negative Normal NEGATIVE [facility] Comment on above: Performed By: #### R ENAL #### [facility] [address] [place] [address] Dr. Madisyn Bentley Clarity (U) CLEAR Normal CLEAR [facility] Comment on above: Performed By: #### R ENAL #### [facility] [address] [place] [address] Dr. Madisyn Bentley Color (U) LT. YELLOW Normal YELLOW [facility] Comment on above: Performed By: #### R ENAL #### [facility] [address] [place] [address] Dr. Madisyn Bentley Glucose Ql (U) Negative Normal NEGATIVE [facility] Comment on above: Performed By: #### R ENAL #### [facility] [address] [place] [address] Dr. Madisyn Bentley Hemoglobin Ql (U) Negative Normal NEGATIVE [facility] Comment on above: Performed By: #### R ENAL #### [facility] [address] [place] [address] Dr. Madisyn Bentley Ketones Ql (U) Negative Normal NEGATIVE [facility] Comment on above: Performed By: #### R ENAL #### [facility] [address] [place] [address] Dr. Madisyn Bentley LEUKOCYTES SMALL Abnormal NEGATIVE [facility] Comment on above: Performed By: #### R ENAL #### [facility] [address] [place] [address] Dr. Madisyn Bentley Nitrite Ql (U) Negative Normal NEGATIVE [facility] Comment on above: Performed By: #### R ENAL #### [facility] [address] [place] [address] Dr. Madisyn Bentley pH (U) 5.5 [pH] Normal 5-9 [facility] Comment on above: Performed By: #### R ENAL #### [facility] [address] [place] [address] Dr. Madisyn Bentley SPEC GRAVITY 1.020 Normal 1.005-<=1.[address] [place] [address] Comment on above: Performed By: #### R ENAL #### [facility] [address] [place] [address] Dr. Madisyn Bentley UA PROTEIN TRACE Normal NEGATIVE/ TRACE [facility] Comment on above: Performed By: #### R ENAL #### [facility] [address] [place] [address] Dr. Madisyn Bentley Urobilinogen Qn (U) 0.2 {Luis Eduardo'U}/dL Normal 0.2 - 1. 0 [facility] Comment on above: Performed By: #### R ENAL #### [facility] [address] [place] [address] Dr. Madisyn Bentley URINE T PROTEIN CREAT RATIOo n 10-06-2022 Protein (U) [Mass/Vol] 47.8 mg/dL Critically high <=12.0 [facility] Comment on above: Performed By: #### U RTPCR #### [facility] [address] [place] [address] Dr. Madisyn Bentley UR PROT CREAT RAT 0.26 Normal [facility] Comment on above: Performed By: #### U RTPCR #### [facility] [address] [place] [address] Dr. Madisyn Bentley URINE CREAT 186.22 mg/dL Normal 20.00-300.00 [facility] Comment on above: Performed By: #### U RTPCR #### [facility] [address] [place] [address] Dr. Madisyn Bentley Office Visiton 09-20-2022 Follow-up visit [id number] Trisha Parish 1945 F Date Provider Department Center 09/20/2022 Yovany6-PRECIOUS MONREAL [facility] No family history on file Level of Service:22037 [place] OFFICE/OUTPATIENT ESTABLISHED LOW MDM 20-29 MIN Normal [facility] CBC WITH AUTO DIFFERENTIALon 09-12-2022 Basophils (Bld) [#/Vol] 0.03 10*3/uL Normal 0.00-0.20 [facility] Comment on above: Performed By: #### L [id number] #### [facility] ([facility]) [address] [place] [address] Basophils/100 WBC (Bld) 0.3 % Normal 0.0-1.0 [facility] Comment on above: Performed By: #### L [id number] #### [facility] ([facility]) [address] [place] [address] Eosinophils (Bld) [#/Vol] 0.21 10*3/uL Normal 0.00-0.50 [facility] Comment on above: Performed By: #### L [id number] #### [facility] ([facility]) [address] [place] [address] Eosinophils/100 WBC (Bld) 2.3 % Normal 0.0-6.0 [facility] Comment on above: Performed By: #### L [id number] #### [facility] ([facility]) [address] [place] [address] Erythrocyte distribution width (RBC) [Ratio] 13.3 % Normal 11.5-15.0 [facility] Comment on above: Performed By: #### L [id number] #### [facility] ([facility]) [address] [place] [address] ERYTHROCYTE MEAN CORPUSCULAR HEMOGLOBIN CONCENTRATION (G/DL) BY AUTOMATED 33.4 g/dL Normal 32.0-35.0 [facility] Comment on above: Performed By: #### L [id number] #### [facility] ([facility]) [address] [place] [address] Hematocrit (Bld) [Volume fraction] 29.0 % Low 36.0-48.0 [facility] Comment on above: Performed By: #### L [id number] #### [facility] ([facility]) [address] [place] [address] Hemoglobin (Bld) [Mass/Vol] 9.7 g/dL Low 12.0-15.0 [facility] Comment on above: Performed By: #### L [id number] #### [facility] ([facility] [address] [place] [address] Immature granulocytes (Bld) [#/Vol] 0.02 10*3/uL Normal 0.00-0.20 [facility] Comment on above: Performed By: #### L [id number] #### [facility] ([facility]) [address] [place] [address] Immature granulocytes/100 WBC (Bld) 0.2 % Normal 0.0-1.0 [facility] Comment on above: Performed By: #### L [id number] #### [facility] ([facility]) [address] [place] [address] Lymphocytes (Bld) [#/Vol] 1.24 10*3/uL Normal 1.20-4.00 [facility] Comment on above: Performed By: #### L [id number] #### [facility] ([facility]) [address] [place] [address] Lymphocytes/100 WBC (Bld) 13.6 % Low 20.0-45.0 [facility] Comment on above: Performed By: #### L [id number] #### [facility] ([facility]) [address] [place] [address] MCH (RBC) [Entitic mass] 30.4 pg Normal 27.0-33.0 [facility] Comment on above: Performed By: #### L [id number] #### [facility] ([facility] [address] [place] [address] MCV (RBC) [Entitic vol] 90.9 fL Normal 82.0-98.0 [facility] Comment on above: Performed By: #### L [id number] #### [facility] ([facility]) [address] [place] [address] Monocytes (Bld) [#/Vol] 0.68 10*3/uL Normal 0.10-1.00 [facility] Comment on above: Performed By: #### L [id number] #### [facility] ([facility]) [address] [place] [address] Monocytes/100 WBC (Bld) 7.5 % Normal 5.0-12.0 [facility] Comment on above: Performed By: #### L [id number] #### [facility] ([facility]) [address] [place] [address] Neutrophils (Bld) [#/Vol] 6.93 10*3/uL Normal 1.60-7.60 [facility] Comment on above: Performed By: #### L [id number] #### [facility] ([facility]) [address] [place] [address] Neutrophils/100 WBC (Bld) 76.1 % High 40.0-72.0 [facility] Comment on above: Performed By: #### L [id number] #### [facility] ([facility]) [address] [place] [address] NRBC (PER 100 WBCS) BY AUTOMATED COUNT 0.0 % Normal 0.0-0.0 [facility] Comment on above: Performed By: #### L [id number] #### [facility] ([facility]) [address] [place] [address] PLATELETS (10*3/UL) IN BLOOD AUTOMATED COUNT 175 10*3/uL Normal 150-400 [facility] Comment on above: Performed By: #### L [id number] #### [facility] ([facility]) [address] [place] [address] RBC (Bld) [#/Vol] 3.19 10*6/uL Low 3.80-5.00 [facility] Comment on above: Performed By: #### L [id number] #### [facility] ([facility]) [address] [place] [address] WBC (Bld) [#/Vol] 9.11 10*3/uL Normal 4.00-10.60 [facility] Comment on above: Performed By: #### L [id number] #### [facility] ([facility]) [address] [place] [address] COMPREHENSIVE METABOLIC PANE Otto 09-12-2022 Albumin [Mass/Vol] 2.9 g/dL Low 3.5-5.7 [facility] Comment on above: Performed By: #### L [id number] ####[facility] ([facility] [place] [address] ALP [Catalytic activity/Vol] 61 U/L Normal 34-104 [facility] Comment on above: Performed By: #### L [id number] ####[facility] ([facility])[address] [place] [address] ALT [Catalytic activity/Vol] 7 U/L Normal 7-52 [facility] Comment on above: Performed By: #### L [id number] ####[facility] ([facility])[address] [place] [address] Anion gap [Moles/Vol] 5 mmol/L Low 7-20 [facility] Comment on above: Performed By: #### L [id number] ####[facility] ([facility])[address] [place] [address] AST [Catalytic activity/Vol] 12 U/L Low 13-39 [facility] Comment on above: Performed By: #### L [id number] ####[facility] ([facility])[address] [place] [address] Bilirubin [Mass/Vol] 0.5 mg/dL Normal 0.3-1.0 [facility] Comment on above: Performed By: #### L [id number] ####[facility] ([facility] [place] [address] Calcium [Mass/Vol] 8.2 mg/dL Low 8.6-10.3 [facility] Comment on above: Performed By: #### L [id number] ####[facility] ([facility])[address] [place] [address] Chloride [Moles/Vol] 109 mmol/L High 98-107 [facility] Comment on above: Performed By: #### L [id number] ####[facility] ([facility] [place] [address] CO2 [Moles/Vol] 22 mmol/L Normal 21-31 [facility] Comment on above: Performed By: #### L [id number] ####[facility] ([facility])[address] [place] [address] Creatinine [Mass/Vol] 1.59 mg/dL High 0.60-1.20 [facility] Comment on above: Performed By: #### L [id number] ####[facility] ([facility])[address] [place] [address] GLOMERULAR FILTRATION RATE ML/MIN/1.73 SQ M.PREDICTED 31.1 mL/min/1.73m*2 Low >60.0 [facility] Comment on above: Result Comment: The [facility]???s estimated glomerular filtration rate (eGFR) will no [...] of individuals. Performed By: #### L [id number] ####[facility] ([facility])[address] [place] [address] Glucose [Mass/Vol] 80 mg/dL Normal 70-100 [facility] Comment on above: Performed By: #### L [id number] ####[facility] ([facility])[address] [place] [address] Potassium [Moles/Vol] 3.9 mmol/L Normal 3.5-5.1 [facility] Comment on above: Performed By: #### L [id number] ####[facility] ([facility])[address] [place] [address] Protein [Mass/Vol] 5.3 g/dL Low 6.0-8.3 [facility] Comment on above: Performed By: #### L [id number] ####[facility] ([facility])[address] [place] [address] Sodium [Moles/Vol] 136 mmol/L Normal 136-145 [facility] Comment on above: Performed By: #### L [id number] ####[facility] ([facility])[address] [place] [address] Urea nitrogen [Mass/Vol] 37 mg/dL High 7-25 [facility] Comment on above: Performed By: #### L [id number] ####[facility] ([facility])[address] [place] [address] UREA NITROGEN/CREATININE (MASS RATIO) IN SER/PLAS 23.27 Normal [facility] Comment on above: Performed By: #### L [id number] ####[facility] ([facility])[address] [place] [address] DSon 09-12-2022 DS ----- ----- Attestation signed [...] Medications These medications were sent to [facility]/pharmacy #[id number] [place] [address] doxycycline 100 mg capsule Activity Patient currently [...] stroke who presented with generalized weakness to [facility]. She presented with 2-day history of exertional shortness of breath and weakness with intermittent palpitations. She stated that her legs felt heavy. She denied any recent changes of medication and illness. Patient states that she does take Plavix daily. She denies any use of anticoagulation. At [facility], EKG demonstarted a 2:1 AV block with prolonged FL interval 266. Chest x-ray demonstrated possible trace [...] heart rate 59. Patient was transferred to [facility] for further evaluation by [...] RDW 13. (more content not included)... Normal [facility] MAGNESIUMon 09-12-2022 Magnesium [Mass/Vol] 1.9 mg/dL Normal 1.9-2.7 [facility] Comment on above: Performed By: #### L [id number] ####[facility] ([facility])[address] [facility] [address] NURSNOTEon 09-12-2022 NURSNOTE Taught patient and h er discharge instructions, when to call doctor, follow up appointments, and medication changes. Normal [facility] PHOSPHORUSon 09-12-2022 Magnesium [Mass/Vol] 3.2 mg/dL Normal 2.5-5.0 [facility] Comment on above: Performed By: #### L [id number] ####[facility] ([facility])[address] [place] [address] POCT GLUCOSE METER UNSOLICIT ED RESULTSon 09-12-2022 Glucose [Mass/Vol] 96 mg/dL Normal 70-105 [facility] Comment on above: Result Comment: aide er2 Performed By: #### L [id number] #### [facility] ([facility]) [address] [place] [address] Glucose [Mass/Vol] 138 mg/dL High 70-105 [facility] Comment on above: Result Comment: chito es Performed By: #### L [id number] #### [facility] ([facility]) [address] [place] [address] APTTon 09-11-2022 ACTIVATED PARTIAL THROMBOPLASTIN TIME IN PPP BY COAGULATION ASSAY 48.0 Seconds High 25.0-35.0 [facility] Comment on above: Performed By: #### L [id number] #### [facility] ([facility]) [address] [address] CBC WITH AUTO DIFFERENTIALon 09-11-2022 Basophils (Bld) [#/Vol] 0.02 10*3/uL Normal 0.00-0.20 [facility] Comment on above: Performed By: #### L [id number] ####[facility] ([facility])[address] [place] [address] Basophils/100 WBC (Bld) 0.3 % Normal 0.0-1.0 [facility] Comment on above: Performed By: #### L [id number] ####[facility] ([facility])[address] [place] [address] Eosinophils (Bld) [#/Vol] 0.12 10*3/uL Normal 0.00-0.50 [facility] Comment on above: Performed By: #### L [id number] ####[facility] ([facility])[address] [place] [address] Eosinophils/100 WBC (Bld) 2.0 % Normal 0.0-6.0 [facility] Comment on above: Performed By: #### L [id number] ####[facility] ([facility])[address] [place] [address] Erythrocyte distribution width (RBC) [Ratio] 13.2 % Normal 11.5-15.0 [facility] Comment on above: Performed By: #### L [id number] ####[facility] ([facility])[address] [place] [address] ERYTHROCYTE MEAN CORPUSCULAR HEMOGLOBIN CONCENTRATION (G/DL) BY AUTOMATED 31.7 g/dL Low 32.0-35.0 [facility] Comment on above: Performed By: #### L [id number] ####[facility] ([facility])[address] [place] [address] Hematocrit (Bld) [Volume fraction] 30.0 % Low 36.0-48.0 [facility] Comment on above: Performed By: #### L [id number] ####[facility] ([facility])[address] [place] [address] Hemoglobin (Bld) [Mass/Vol] 9.5 g/dL Low 12.0-15.0 [facility] Comment on above: Performed By: #### L [id number] ####[facility] ([facility])[address] [place] [address] Immature granulocytes (Bld) [#/Vol] 0.02 10*3/uL Normal 0.00-0.20 [facility] Comment on above: Performed By: #### L [id number] ####[facility] ([facility])[address] [place] [address] Immature granulocytes/100 WBC (Bld) 0.3 % Normal 0.0-1.0 [facility] Comment on above: Performed By: #### L [id number] ####[facility] ([facility])[address] [place] [address] Lymphocytes (Bld) [#/Vol] 1.23 10*3/uL Normal 1.20-4.00 [facility] Comment on above: Performed By: #### L [id number] ####[facility] ([facility])[address] [place] [address] Lymphocytes/100 WBC (Bld) 21.0 % Normal 20.0-45.0 [facility] Comment on above: Performed By: #### L [id number] ####[facility] ([facility])[address] [place] [address] MCH (RBC) [Entitic mass] 29.4 pg Normal 27.0-33.0 [facility] Comment on above: Performed By: #### L [id number] ####[facility] ([facility])[address] [place] [address] MCV (RBC) [Entitic vol] 92.9 fL Normal 82.0-98.0 [facility] Comment on above: Performed By: #### L [id number] ####[facility] ([facility])[address] [place] [address] Monocytes (Bld) [#/Vol] 0.62 10*3/uL Normal 0.10-1.00 [facility] Comment on above: Performed By: #### L [id number] ####[facility] ([facility])[address] [place] [address] Monocytes/100 WBC (Bld) 10.6 % Normal 5.0-12.0 [facility] Comment on above: Performed By: #### L [id number] ####[facility] ([facility] [place] [address] Neutrophils (Bld) [#/Vol] 3.85 10*3/uL Normal 1.60-7.60 [facility] Comment on above: Performed By: #### L [id number] ####[facility] ([facility])[address] [place] [address] Neutrophils/100 WBC (Bld) 65.8 % Normal 40.0-72.0 [facility] Comment on above: Performed By: #### L [id number] ####[facility] ([facility])[address] [place] [address] NRBC (PER 100 WBCS) BY AUTOMATED COUNT 0.0 % Normal 0.0-0.0 [facility] Comment on above: Performed By: #### L [id number] ####[facility] ([facility])[address] [place] [address] PLATELETS (10*3/UL) IN BLOOD AUTOMATED COUNT 165 10*3/uL Normal 150-400 [facility] Comment on above: Performed By: #### L [id number] ####[facility] ([facility])[address] [place] [address] RBC (Bld) [#/Vol] 3.23 10*6/uL Low 3.80-5.00 [facility] Comment on above: Performed By: #### L [id number] ####[facility] ([facility] [place] [address] WBC (Bld) [#/Vol] 5.86 10*3/uL Normal 4.00-10.60 [facility] Comment on above: Performed By: #### L [id number] ####[facility] ([facility])[address] [place] [address] COMPREHENSIVE METABOLIC PANE Otto 09-11-2022 Albumin [Mass/Vol] 3.1 g/dL Low 3.5-5.7 [facility] Comment on above: Performed By: #### L [id number] ####[facility] ([facility])[address] [place] [address] ALP [Catalytic activity/Vol] 65 U/L Normal 34-104 [facility] Comment on above: Performed By: #### L [id number] ####[facility] ([facility])[address] [place] [address] ALT [Catalytic activity/Vol] 7 U/L Normal 7-52 [facility] Comment on above: Performed By: #### L [id number] ####[facility] ([facility])[address] [place] [address] Anion gap [Moles/Vol] 7 mmol/L Normal 7-20 [facility] Comment on above: Performed By: #### L [id number] ####[facility] ([facility])[address] [place] [address] AST [Catalytic activity/Vol] 10 U/L Low 13-39 [facility] Comment on above: Performed By: #### L [id number] ####[facility] ([facility])[address] [place] [address] Bilirubin [Mass/Vol] 0.7 mg/dL Normal 0.3-1.0 [facility] Comment on above: Performed By: #### L [id number] ####[facility] ([facility])[address] [place] [address] Calcium [Mass/Vol] 8.2 mg/dL Low 8.6-10.3 [facility] Comment on above: Performed By: #### L [id number] ####[facility] ([facility])[address] [place] [address] Chloride [Moles/Vol] 112 mmol/L High 98-107 [facility] Comment on above: Performed By: #### L [id number] ####[facility] ([facility])[address] [place] [address] CO2 [Moles/Vol] 19 mmol/L Low 21-31 [facility] Comment on above: Performed By: #### L [id number] ####[facility] ([facility])[address] [place] [address] Creatinine [Mass/Vol] 1.69 mg/dL High 0.60-1.20 [facility] Comment on above: Performed By: #### L [id number] ####[facility] ([facility])[address] [place] [address] GLOMERULAR FILTRATION RATE ML/MIN/1.73 SQ M.PREDICTED 28.9 mL/min/1.73m*2 Low >60.0 [facility] Comment on above: Result Comment: The [facility]???s estimated glomerular filtration rate (eGFR) will no [...] of individuals. Performed By: #### L [id number] ####[facility] ([facility])[address] [place] [address] Glucose [Mass/Vol] 106 mg/dL High 70-100 [facility] Comment on above: Performed By: #### L [id number] ####[facility] ([facility])[address] [place] [address] Potassium [Moles/Vol] 3.9 mmol/L Normal 3.5-5.1 [facility] Comment on above: Performed By: #### L [id number] ####[facility] ([facility])[address] [place] [address] Protein [Mass/Vol] 5.5 g/dL Low 6.0-8.3 [facility] Comment on above: Performed By: #### L [id number] ####[facility] ([facility])[address] [place] [address] Sodium [Moles/Vol] 138 mmol/L Normal 136-145 [facility] Comment on above: Performed By: #### L [id number] ####[facility] ([facility])[address] [place] [address] Urea nitrogen [Mass/Vol] 43 mg/dL High 7-25 [facility] Comment on above: Performed By: #### L [id number] ####[facility] ([facility])[address] [place] [address] UREA NITROGEN/CREATININE (MASS RATIO) IN SER/PLAS 25.44 Normal [facility] Comment on above: Performed By: #### L [id number] ####[facility] ([facility])[address] [place] [address] HPon 09-11-2022 HP H&P reviewed. The pa marlenent was examined and there are no changes to the H&P. Normal [facility] MAGNESIUMon 09-11-2022 Magnesium [Mass/Vol] 2.3 mg/dL Normal 1.9-2.7 [facility] Comment on above: Performed By: #### L [id number] #### [facility] ([facility]) [address] [place] [address] PHOSPHORUSon 09-11-2022 Magnesium [Mass/Vol] 3.3 mg/dL Normal 2.5-5.0 [facility] Comment on above: Performed By: #### L [id number] #### [facility] ([facility]) [address] [place] [address] POCT GLUCOSE METER UNSOLICIT ED RESULTSon 09-11-2022 Glucose [Mass/Vol] 100 mg/dL Normal 70-105 [facility] Comment on above: Result Comment: [email or web address] Performed By: #### L [id number] #### [facility] ([facility]) [address] [place] [address] Glucose [Mass/Vol] 111 mg/dL High 70-105 [facility] Comment on above: Result Comment: [email or web address] [email or web address] Performed By: #### L [id number] #### [facility] ([employer]) [address] [place] [address] Glucose [Mass/Vol] 107 mg/dL High 70-105 [facility] Comment on above: Result Comment: [email or web address] [email or web address] Performed By: #### L [id number] #### [facility] ([facility] [address] [place] [address] PROTIME-INRon 09-11-2022 INR IN PPP BY COAGULATION ASSAY 1.51 High 0.90-1.10 [facility] Comment on above: Result Comment: ACCC P [...] CHEST 1995;[id number]. Performed By: #### L [id number] ####[facility] ([employer])[address] [place] [address] PROTHROMBIN TIME (PT) IN PPP BY COAGULATION ASSAY 18.1 Seconds High 12.3-14.8 [facility] Comment on above: Performed By: #### L [id number] ####[facility] ([employer])[address] [place] [address] B-TYPE NATRIURETIC PEPTIDEon 09-10-2022 Natriuretic peptide B (Bld) [Mass/Vol] 1226 pg/mL High 0-100 [facility] Comment on above: Performed By: #### L [id number] #### [facility] ([facility]) [address] [place] [address] BNPon 09-10-2022 Natriuretic peptide B (Bld) [Mass/Vol] 39171.0 pg/mL Critically high <=1,800.0 [facility] Comment on above: Performed By: #### B CENTRIFUGAL STATION OPERATOR, HSTROPN #### [facility] [address] [place] [address] Dr. Madisyn Bentley CBC AUTO DIFFon 09-10-2022 BASO # 0.0 103/ul Normal 0.0-0.1 [facility] Comment on above: Performed By: #### R ENAL #### [facility] [address] [place] [address] Dr. Madisyn Bentley Basophils/100 WBC (Bld) 0.3 % Normal 0.2-2.0 [facility] Comment on above: Performed By: #### R ENAL #### [facility] [address] [place] [address] Dr. Madisyn Bentley EO # 0.3 103/ul Normal 0.0-0.7 [facility] Comment on above: Performed By: #### R ENAL #### [facility] [address] [place] [address] Dr. Madisyn Bentley Eosinophils/100 WBC (Bld) 2.4 % Normal 0.9-7.0 [facility] Comment on above: Performed By: #### R ENAL #### [facility] [address] [place] [address] Dr. Madisyn Bentley Erythrocyte distribution width (RBC) [Ratio] 13.3 % Normal 11.0-15.0 [facility] Comment on above: Performed By: #### R ENAL #### [facility] [address] [place] [address] Dr. Madisyn Bentley Hematocrit (Bld) [Volume fraction] 36.0 % Normal 36.0-48.0 [facility] Comment on above: Performed By: #### R ENAL #### [facility] [address] [place] [address] [address] Madisyn Bentley Hemoglobin (Bld) [Mass/Vol] 11.2 g/dL Critically low 12.0-16.0 [facility] Comment on above: Performed By: #### R ENAL #### [facility] [address] [place] [address] [address] Madisyn Bentley IG # 0.02 10e3/ul Normal 0.00-0.03 [facility] Comment on above: Performed By: #### R ENAL #### [facility] [address] [place] [address] Dr. Madisyn Bentley IG % 0.2 % Normal 0.0-0.5 [facility] Comment on above: Performed By: #### R ENAL #### [facility] [address] [place] [address] Dr. Madisyn Bentley LYMPH # 1.4 103/ul Normal 1.2-3.8 [facility] Comment on above: Performed By: #### R ENAL #### [facility] [address] [place] [address] Dr. Madisyn Bentley Lymphocytes/100 WBC (Bld) 13.3 % Critically low 20.5-60.0 [facility] Comment on above: Performed By: #### R ENAL #### [facility] [address] [place] [address] Dr. Madisyn Bentley MANUAL DIFF REQ NO Normal [facility] Comment on above: Performed By: #### R ENAL #### [facility] [address] [place] [address] Dr. Madisyn Bentley MCH (RBC) [Entitic mass] 28.9 pg Normal 26.7-34.0 [facility] Comment on above: Performed By: #### R ENAL #### [facility] [address] [place] [address] Dr. Madisyn Bentley MCHC (RBC) [Mass/Vol] 31.1 g/dL Normal 29.9-35.2 [facility] Comment on above: Performed By: #### R ENAL #### [facility] [address] [place] [address] [address] Madisyn Bentley MCV (RBC) [Entitic vol] 92.8 fL Normal 81.0-99.0 [facility] Comment on above: Performed By: #### R ENAL #### [facility] [address] [place] [address] [address] Madisyn Bentley MONO # 0.9 103/ul Critically high 0.3-0.8 [facility] Comment on above: Performed By: #### R ENAL #### [facility] [address] [place] [address] Dr. Madisyn Bentley Monocytes/100 WBC (Bld) 8.4 % Normal 1.7-12.0 [facility] Comment on above: Performed By: #### R ENAL #### [facility] [address] [place] [address] Dr. Madisyn Bentley NEUT # 8.1 103/ul Critically high 1.4-6.5 [facility] Comment on above: Performed By: #### R ENAL #### [facility] [address] [place] [address] Dr. Madisyn Bentley Neutrophils/100 WBC (Bld) 75.4 % Critically high 43.0-75.0 [facility] Comment on above: Performed By: #### R ENAL #### [facility] [address] [place] [address] Dr. Madisyn Bentley Platelet mean volume (Bld) [Entitic vol] 12.8 fL Normal 9.5-13.5 [facility] Comment on above: Performed By: #### R ENAL #### [facility] [address] [place] [address] Dr. Madisyn Bentley PLT 200 103/ul Normal 150-450 [facility] Comment on above: Performed By: #### R ENAL #### [facility] [address] [place] [address] Dr. Madisyn Bentley RBC 3.88 106/ul Critically low 4.20-5.40 [facility] Comment on above: Performed By: #### R ENAL #### [facility] [address] [place], [place] [address] Dr. Madisyn Bentley WBC 10.8 103/ul Normal 4.0-11.0 [facility] Comment on above: Performed By: #### R ENAL #### [facility] [address] [place], [place] [address] Dr. Madisyn Bentley CBC WITH AUTO DIFFERENTIALon 09-10-2022 Basophils (Bld) [#/Vol] 0.03 10*3/uL Normal 0.00-0.20 [facility] Comment on above: Performed By: #### L [id number] ####[facility] ([facility] [place] [address] Basophils/100 WBC (Bld) 0.3 % Normal 0.0-1.0 [facility] Comment on above: Performed By: #### L [id number] ####[facility] ([facility] [place] [address] Eosinophils (Bld) [#/Vol] 0.08 10*3/uL Normal 0.00-0.50 [facility] Comment on above: Performed By: #### L [id number] ####[facility] (BEAKER)[address] [place] [address] Eosinophils/100 WBC (Bld) 0.8 % Normal 0.0-6.0 [facility] Comment on above: Performed By: #### L [id number] ####[facility] ([facility]AKER)[address] [place] [address] Erythrocyte distribution width (RBC) [Ratio] 13.2 % Normal 11.5-15.0 [facility] Comment on above: Performed By: #### L [id number] ####[facility] (BEAKER)[address] [place] [address] ERYTHROCYTE MEAN CORPUSCULAR HEMOGLOBIN CONCENTRATION (G/DL) BY AUTOMATED 31.6 g/dL Low 32.0-35.0 [facility] Comment on above: Performed By: #### L [id number] ####[facility] (BEAKER)[address] [place] [address] Hematocrit (Bld) [Volume fraction] 33.5 % Low 36.0-48.0 [facility] Comment on above: Performed By: #### L [id number] ####[facility] (BEAKER)[address] [place] [address] Hemoglobin (Bld) [Mass/Vol] 10.6 g/dL Low 12.0-15.0 [facility] Comment on above: Performed By: #### L [id number] ####[facility] (BEAKER)[address] [place] [address] Immature granulocytes (Bld) [#/Vol] 0.03 10*3/uL Normal 0.00-0.20 [facility] Comment on above: Performed By: #### L [id number] ####[facility] (BEAKER)[address] [place] [address] Immature granulocytes/100 WBC (Bld) 0.3 % Normal 0.0-1.0 [facility] Comment on above: Performed By: #### L [id number] ####[facility] (BEAKER)[address] [place] [address] Lymphocytes (Bld) [#/Vol] 1.12 10*3/uL Low 1.20-4.00 [facility] Comment on above: Performed By: #### L [id number] ####[facility] (BEAKER)[address] [place] [address] Lymphocytes/100 WBC (Bld) 11.4 % Low 20.0-45.0 [facility] Comment on above: Performed By: #### L [id number] ####[facility] (BEAKER)[address] [place] [address] MCH (RBC) [Entitic mass] 28.4 pg Normal 27.0-33.0 [facility] Comment on above: Performed By: #### L [id number] ####[facility] (BEAKER)[address] [place] [address] MCV (RBC) [Entitic vol] 89.8 fL Normal 82.0-98.0 [facility] Comment on above: Performed By: #### L [id number] ####[facility] (BANNER)[address] [place] [address] Monocytes (Bld) [#/Vol] 0.90 10*3/uL Normal 0.10-1.00 [facility] Comment on above: Performed By: #### L [id number] ####[facility] ([facility]NER)[address] [place] [address] Monocytes/100 WBC (Bld) 9.1 % Normal 5.0-12.0 [facility] Comment on above: Performed By: #### L [id number] ####[facility] ([facility]ANNER)[address] [place] [address] Neutrophils (Bld) [#/Vol] 7.69 10*3/uL High 1.60-7.60 [facility] Comment on above: Performed By: #### L [id number] ####[facility] ([facility]ANNER)[address] [place] [address] Neutrophils/100 WBC (Bld) 78.1 % High 40.0-72.0 [facility] Comment on above: Performed By: #### L [id number] ####[facility] ([facility]ANNER)[address] [place] [address] NRBC (PER 100 WBCS) BY AUTOMATED COUNT 0.0 % Normal 0.0-0.0 [facility] Comment on above: Performed By: #### L [id number] ####[facility] ([facility]ANNER)[address] [place] [address] PLATELETS (10*3/UL) IN BLOOD AUTOMATED COUNT 204 10*3/uL Normal 150-400 [facility] Comment on above: Performed By: #### L [id number] ####[facility] ([facility]NER)[address] [place] [address] RBC (Bld) [#/Vol] 3.73 10*6/uL Low 3.80-5.00 [facility] Comment on above: Performed By: #### L [id number] ####[facility] ([facility]NER)[address] [place] [address] WBC (Bld) [#/Vol] 9.85 10*3/uL Normal 4.00-10.60 [facility] Comment on above: Performed By: #### L [id number] ####[facility] ([facility]NER)[address] [place] [address] COMPREHENSIVE METABOLIC PANE Otto 09-10-2022 Albumin [Mass/Vol] 3.3 g/dL Low 3.5-5.7 [facility] Comment on above: Performed By: #### L [id number] #### [facility] ([facility]) [address] [place] [address] ALP [Catalytic activity/Vol] 75 U/L Normal 34-104 [facility] Comment on above: Performed By: #### L [id number] #### [facility] ([facility]) [address] [place] [address] ALT [Catalytic activity/Vol] 8 U/L Normal 7-52 [facility] Comment on above: Performed By: #### L [id number] #### [facility] ([facility]) [address] [place] [address] Anion gap [Moles/Vol] 9 mmol/L Normal 7-20 [facility] Comment on above: Performed By: #### L [id number] #### [facility] ([facility]) [address] [place] [address] AST [Catalytic activity/Vol] 11 U/L Low 13-39 [facility] Comment on above: Performed By: #### L [id number] #### [facility] ([facility]) [address] [place] [address] Bilirubin [Mass/Vol] 1.0 mg/dL Normal 0.3-1.0 [facility] Comment on above: Performed By: #### L [id number] #### [facility] (BEAKER) [address] [place] [address] Calcium [Mass/Vol] 8.3 mg/dL Low 8.6-10.3 [facility] Comment on above: Performed By: #### L [id number] #### [facility] (BEAKER) [address] [place] [address] Chloride [Moles/Vol] 106 mmol/L Normal 98-107 [facility] Comment on above: Performed By: #### L [id number] #### [facility] [address] [place] [address] CO2 [Moles/Vol] 18 mmol/L Low 21-31 [facility] Comment on above: Performed By: #### L [id number] #### [facility] ([facility]) [address] [place] [address] Creatinine [Mass/Vol] 1.83 mg/dL High 0.60-1.20 [facility] Comment on above: Performed By: #### L [id number] #### [facility] ([facility]) [address] [place] [address] GLOMERULAR FILTRATION RATE ML/MIN/1.73 SQ M.PREDICTED 26.2 mL/min/1.73m*2 Low >60.0 [facility] Comment on above: Result Comment: The [facility]???s estimated glomerular filtration rate (eGFR) will no [...] individuals. Performed By: #### L [id number] #### [facility] ([facility] [address] [place] [address] Glucose [Mass/Vol] 144 mg/dL High 70-100 [facility] Comment on above: Performed By: #### L [id number] #### [facility] ([facility]) [address] [place] [address] Potassium [Moles/Vol] 4.0 mmol/L Normal 3.5-5.1 [facility] Comment on above: Performed By: #### L [id number] #### [facility] ([facility]) [address] [place] [address] Protein [Mass/Vol] 5.9 g/dL Low 6.0-8.3 [facility] Comment on above: Performed By: #### L [id number] #### [facility] ([facility]) [address] [place] [address] Sodium [Moles/Vol] 133 mmol/L Low 136-145 [facility] Comment on above: Performed By: #### L [id number] #### [facility] ([facility]) [address] [place] [address] Urea nitrogen [Mass/Vol] 50 mg/dL High 7-25 [facility] Comment on above: Performed By: #### L [id number] #### [facility] ([facility]) [address] [place] [address] UREA NITROGEN/CREATININE (MASS RATIO) IN SER/PLAS 27.32 Normal [facility] Comment on above: Performed By: #### L [id number] #### [facility] ([facility]) [address] [place] [address] CONSULTon 09-10-2022 CONSULT ----- ----- Attestation signed [...] II/Complete HB. She was transferred over from [facility] due to heart rate in the [...] has a past medical history of A-fib ([facility]), Cancer (CMS/HCC), Coronary artery disease, Hypertension, Myocardial infarct (CMS/HCC), and Stroke (CMS/[facility]). Surgical History She has a past surgical [...] preserved EF. (more content not included)... Normal [facility] Covid-19 PCR (CVDTB)on SARS-CoV-2 (COVID-19) RNA SUSAN+probe Ql (Unsp spec) Not detected Normal NOT DETECTED [facility] Comment on above: Result Comment: When [...] for this test is supported by the Matrix Repairer of Health and Human Service's declaration that [...] Performed By: #### P T, PTT #### [facility] [address] [place], [place] [address] Dr. Madisyn Bentley FERRITINon 09-10-2022 FERRITIN (NG/ML) IN SER/PLAS 97.0 ng/mL Normal 11.0-307.0 [facility] Comment on above: Performed By: #### L [id number] #### [facility] ([facility] [address] [place] [address] FOLATEon 09-10-2022 FOLATE (NG/ML) IN SER/PLAS 9.99 ng/mL Normal 6.6-1000 [facility] Comment on above: Performed By: #### L [id number] ####[facility] ([facility])[address] [place] [address] HEMOGLOBIN A1Con 09-10-2022 Glucose [Mass/Vol] 136.98 mg/dL Normal [facility] Comment on above: Performed By: #### L [id number] ####[facility] ([facility])[address] [place] [address] HbA1c (Bld) [Mass fraction] 6.4 % High 4.0-6.0 [facility] Comment on above: Performed By: #### L [id number] ####[facility] ([facility])[address] [place] [address] HPon 09-10-2022 HP ----- ----- Attestation signed [...] II/Complete HB. She was transferred over from [facility] due to heart rate in the [...] has a past medical history of A-fib ([facility]), Cancer ([facility]/HCC), Coronary artery disease, Hypertension, Myocardial infarct ([facility]/HCC), and Stroke ([facility]/HCC). Surgical History She has a past surgical [...] preserved EF. (more content not included)... Normal [facility] HP ----- ----- Attestation signed by Suzi [...] Parish Age - 77 [facility] 1945 [id number] Date of Admission - 09/10/2022 11:01 AM Chief Complaint Generalized weakness History of Present Illness Trisha Parish is a 77 y.o. female with a past medical history significant for atrial fibrillation status post maze and left atrial appendage clip, coronary artery disease status post CABG, hypertension, stroke who presented with generalized weakness to [facility]. She presented with 2-day history of exertional shortness of breath and weakness with intermittent palpitations. She stated that her legs felt heavy. She denied any recent changes of medication and illness. Patient states that she does take Plavix daily. She denies any use of anticoagulation. At [facility], EKG demonstarted a 2:1 AV block with prolonged FL interval 266. Chest x-ray demonstrated possible trace [...] heart rate 59. Patient was transferred to [facility] for further evaluation by cardiology. On my evaluation, patient denied chest pain shortness of breath, lightheadedness, dizziness. She did state that she continued to feel weak. Patient arrived while on dopamine infusion. However, heart rate was noted to be in the 30s to 40s. PMH: Patient has a past medical history of A-fib ([facility]), Cancer ([facility]), Coronary artery disease, Hypertension, Myocardial infarct ([facility]), and Stroke ([facility]). PSH: Patient has a past surgical history [...] which specify (more content not included)... Normal [facility] IRON AND TIBCon 09-10-2022 IRON (UG/DL) IN SER/PLAS 27 ug/dL Low 50-212 [facility] Comment on above: Performed By: #### L [id number] #### [facility] (BEAKER) [address] [place] [address] IRON BINDING CAPACITY (UG/DL) IN SER/PLAS 203 ug/dL Low 250-450 [facility] Comment on above: Performed By: #### L [id number] #### [facility] ([facility]) [address] [place] [address] IRON BINDING CAPACITY.UNSATURATE D (UG/DL) IN SER/PLAS 176.0 ug/dL Normal 155.0-355.0 [facility] Comment on above: Performed By: #### L [id number] #### [facility] ([facility]) [address] [place] [address] IRON SATURATION (%) IN SER/PLAS 13 % Low 20-50 [facility] Comment on above: Performed By: #### L [id number] #### [facility] ([facility]) [address] [place] [address] MAGNESIUMon 09-10-2022 Magnesium [Mass/Vol] 1.6 mg/dL Low 1.9-2.7 [facility] Comment on above: Performed By: #### L [id number] ####[facility] ([facility])[address] [place] [address] PHOSPHORUSon 09-10-2022 Magnesium [Mass/Vol] 3.1 mg/dL Normal 2.5-5.0 [facility] Comment on above: Performed By: #### L [id number] ####[facility] ([facility])[address] [place] [address] POCT GLUCOSE METER UNSOLICIT ED RESULTSon 09-10-2022 Glucose [Mass/Vol] 152 mg/dL High 70-105 [facility] Comment on above: Result Comment: chito mc Performed By: #### L [id number] #### [facility] ([facility] [address] [place] [address] Glucose [Mass/Vol] 151 mg/dL High 70-105 [facility] Comment on above: Result Comment: kyleigh haider Performed By: #### L [id number] #### [facility] ([facility] [address] [place] [address] PROF 14(COMP METB)on 023 Albumin [Mass/Vol] 3.0 g/dL Critically low 3.4-5.0 [facility] Comment on above: Performed By: #### R ENAL #### [facility] [address] [place] [address] [address] Madisyn Bentley Albumin/Globulin [Mass ratio] 0.8 {ratio} Normal [facility] Comment on above: Performed By: #### R ENAL #### [facility] [address] [address] [address] Madisyn Bentley ALP [Catalytic activity/Vol] 113 U/L Normal 46-116 [facility] Comment on above: Performed By: #### R ENAL #### [facility] [address] [address] [address] Madisyn Bentley ALT [Catalytic activity/Vol] 15 U/L Normal 14-59 [facility] Comment on above: Performed By: #### R ENAL #### [facility] [address] [place] [address] Dr. Madisyn Bentley Anion gap [Moles/Vol] 16.4 mmol/L Normal [facility] Comment on above: Performed By: #### R ENAL #### [facility] [address] [place] [address] Dr. Madisyn Bentley AST [Catalytic activity/Vol] 15 U/L Normal 15-37 [facility] Comment on above: Performed By: #### R ENAL #### [facility] [address] [place] [address] Dr. Madisyn Bentley Bilirubin [Mass/Vol] 0.6 mg/dL Normal 0.2-1.0 [facility] Comment on above: Performed By: #### R ENAL #### [facility] [address] [place] [address] Dr. Madisyn Bentley Calcium [Mass/Vol] 8.6 mg/dL Normal 8.5-10.1 [facility] Comment on above: Performed By: #### R ENAL #### [facility] [address] [address] [address] Madisyn Bentley Chloride [Moles/Vol] 102 mmol/L Normal 98-107 [facility] Comment on above: Performed By: #### R ENAL #### [facility] [address] [address] [address] Madisyn Bentley CO2 [Moles/Vol] 18.9 mmol/L Critically low 21.0-32.0 [facility] Comment on above: Performed By: #### R ENAL #### [facility] [address] [address] [address] Madisyn Bentley Creatinine [Mass/Vol] 1.95 mg/dL Critically high 0.55-1.02 [facility] Comment on above: Performed By: #### R ENAL #### [facility] [address] [address] [address] Madisyn Bentley EGFR-AF GHANAIAN 30 mL/min/1.73m2 Critically low >=60 [facility] Comment on above: Performed By: #### R ENAL #### [facility] [address] [place] [address] Dr. Madisyn Bentley EGFR-NON AF GHANAIAN 25 mL/min/1.73m2 Critically low >=60 [facility] Comment on above: Performed By: #### R ENAL #### [facility] [address] [address] [address] Madisyn Bentley Globulin (S) [Mass/Vol] 3.7 g/dL Normal [facility] Comment on above: Performed By: #### R ENAL #### [facility] [address] [place] [address] Dr. Madisyn Bentley Glucose [Mass/Vol] 190 mg/dL Critically high 74-106 [facility] Comment on above: Performed By: #### R ENAL #### [facility] [address] [address] [address] Madisyn Bentley Potassium [Moles/Vol] 4.3 mmol/L Normal 3.5-5.1 [facility] Comment on above: Performed By: #### R ENAL #### [facility] [address] [address] [address] Madisyn Bentley Protein [Mass/Vol] 6.7 g/dL Normal 6.4-8.2 [facility] Comment on above: Performed By: #### R ENAL #### [facility] [address] [place] [address] Dr. Madisyn Bentley Sodium [Moles/Vol] 133 mmol/L Critically low 136-145 Th e [facility] Comment on above: Performed By: #### R ENAL #### [facility] [address] [place] [address] Dr. Madisyn Bentley Urea nitrogen [Mass/Vol] 51.0 mg/dL Critically high 7.0-18.0 [facility] Comment on above: Performed By: #### R ENAL #### [facility] [address] [place] [address] Dr. Madisyn Bentley Urea nitrogen/Creatinine [Mass ratio] 26.2 mg/mg Normal [facility] Comment on above: Performed By: #### R ENAL #### [facility] [address] [place] [address] Dr. Madisyn Bentley PROTIMEon 09-10-2022 INR Coag (PPP) [Relative time] 1.20 {INR} Normal [facility] Comment on above: Performed By: #### P T, PTT #### [facility] [address] [place] [address] Dr. Madisyn Bentley INR GUIDELINES SEE BELOW Normal [facility] Comment on above: Result Comment: ROMY RED INR: 2.0 - 3.0 CONDITIONS NOT LISTED BELOW 2.5 - 3.5 FOR PROSTHETIC HEART VALVE REPLACEMENT 2.5 - 3.5 RECURRENT THROMBOSIS Performed By: #### P T, PTT #### [facility] [address] [place] [address] Dr. Madisyn Bentley PT Coag (PPP) [Time] 12.6 s Critically high 9.0-11.6 [facility] Comment on above: Performed By: #### P T, PTT #### [facility] [address] [place] [address] Dr. Madisyn Bentley PROTIME-INRon 09-10-2022 INR IN PPP BY COAGULATION ASSAY 1.36 High 0.90-1.10 [facility] Comment on above: Result Comment: ACCC P [...] CHEST 1995;108:[id number]. Performed By: #### L [id number] ####[facility] ([employer])[address] [place] [address] PROTHROMBIN TIME (PT) IN PPP BY COAGULATION ASSAY 16.6 Seconds High 12.3-14.8 [facility] Comment on above: Performed By: #### L [id number] ####[facility] ([employer])[address] [place] [address] PTTon 09-10-2022 aPTT Coag (Bld) [Time] 36.0 s Normal 22.3-36.2 [facility] Comment on above: Performed By: #### P T, PTT #### [facility] [address] [place] [address] Dr. Madisyn Bentley T4, FREEon 09-10-2022 THYROXINE (T4) FREE (NG/DL) IN SER/PLAS 1.36 ng/dL Normal 0.71-1.85 [facility] Comment on above: Performed By: #### L [id number] ####[facility] ([facility])[address] [place] [address] TROPONIN Ion 09-10-2022 Troponin I.cardiac [Mass/Vol] 0.03 ng/mL Normal 0.00-0.04 [facility] Comment on above: Performed By: #### L [id number] #### [facility] ([facility]) [address] [place] [address] TROPONIN, HIGH SENSITIVITYon 09-10-2022 HSTROP 79.4 pg/mL Critically high 4.0-51.3 [facility] Comment on above: Result Comment: CUT- OFF POINTS HAVE BEEN ESTABLISHED BASED ON THE FOURTH UNIVERSAL DEFINITIONS OF MYOCARDIAL INFARCTION. THE UPPER REFERENCE LIMIT (URL) OF TROPONIN, DEFINED THE 99TH PERCENTILE OF cTnI DISTRIBUTION IN A REFERENCE POPULATION, HAS BEEN CONFIRMED THE DECISION THRESHOLD FOR [place] DIAGNOSIS. Performed By: #### B CENTRIFUGAL STATION OPERATOR, HSTROPN #### [facility] [address] [place] [address] Dr. Madisyn Bentley TSH3 REFLEX TO FT4on 023 THYROTROPIN (MIU/L) IN SER/PLAS BY DETECTION LIMIT <= 0.05 MIU/L 6.40 mIU/L High 0.34-5.60 [facility] Comment on above: Performed By: #### L [id number] #### [facility] ([facility]) [address] [place] [address] VITAMIN B12on 09-10-2022 Cobalamin (Vitamin B12) [Mass/Vol] 177 pg/mL Low 180-914 [facility] Comment on above: Result Comment: REFE RENCE RANGES: 180-914 pg/mL Normal 145-179 pg/mL Indeterminate <145 pg/mL Deficient Performed By: #### L [id number] #### [facility] ([facility]) [address] [place] [address] XR CHEST 1 Von 09-10-2022 XR CHEST [...] Kelli FLANNERY Date: 2022-09-10 04:58 Normal [facility] GLYCOHEMOGLOBIN A1Con 2021 ADA RECOMMENDATION SEE BELOW Normal [facility] Comment on above: Result Comment: ADA RECOMMENDED LIMIT 4.0 - 6.0 ADA THERAPEUTIC TARGET < 7.0 ACTION SUGGESTED > 7.0 Performed By: #### P T, PTT #### [facility] [address] [place], [place] [address] Dr. Madisyn Bentley Glucose [Mass/Vol] 186 mg/dL Normal [facility] Comment on above: Performed By: #### P T, PTT #### [facility] [address] [place], [place] [address] Dr. Madisyn Bentley HbA1c (Bld) [Mass fraction] 8.1 % Critically high 4.5-6.2 [facility] Comment on above: Performed By: #### P T, PTT #### [facility] [address] [place], [place] [address] Dr. Madisyn Bentley US THYROIDon 05-24-2022 US [...] by: DIAMOND HILARIO Date: 2022-05-24 12:24 Normal [facility] MAMM SCREEN RT 3D CADon 1 MG MAMM SCREEN RT 3D CAD Patient: TRISHA PARISH Exam Date: 05/23/2022 : 1945 Gender:F Ordering : DR SANYA TINEO M.D. Admission #: [id number] Family : Order #: [id number] CLICK HERE TO VIEW EXAM RADIOLOGY REPORT [...] and chemotherapy Family Cancers None LOCATION: [facility] BREAST COMPOSITION: Scattered areas fibroglandular density. [...] Hilario M.D. on 05/23/2022 at 10:38 Normal [facility] XR DEXA BONE DENSITYon 05-23 XR DEXA [...] DIAMOND HILARIO Date: 2022-05-23 19:25 Normal [facility] CBC AUTO DIFFon 05-16-2022 BASO # 0.0 103/ul Normal 0.0-0.1 [facility] Comment on above: Performed By: #### C BC #### [facility] [address] [place] [address] [address] Madisyn Bentley Basophils/100 WBC (Bld) 0.4 % Normal 0.2-2.0 [facility] Comment on above: Performed By: #### C BC #### [facility] [address] [address] [address] Madisyn Bentley EO # 0.3 103/ul Normal 0.0-0.7 [facility] Comment on above: Performed By: #### C BC #### [facility] [address] [place] [address] [address] Madisyn Bentley Eosinophils/100 WBC (Bld) 4.5 % Normal 0.9-7.0 [facility] Comment on above: Performed By: #### C BC #### [facility] [address] [address] [address] Madisyn Bentley Erythrocyte distribution width (RBC) [Ratio] 13.1 % Normal 11.0-15.0 [facility] Comment on above: Performed By: #### C BC #### [facility] Laboratory [address] [address] [address] Madisyn Bentley Hematocrit (Bld) [Volume fraction] 37.9 % Normal 36.0-48.0 [facility] Comment on above: Performed By: #### C BC #### [facility] [address] [place] [address] Dr. Madisyn Bentley Hemoglobin (Bld) [Mass/Vol] 12.4 g/dL Normal 12.0-16.0 [facility] Comment on above: Performed By: #### C BC #### [facility] [address] [place] [address] Dr. Madisyn Bentley IG # 0.02 10e3/ul Normal 0.00-0.03 [facility] Comment on above: Performed By: #### C BC #### [facility] [address] [place] [address] Dr. Madisyn Bentley IG % 0.3 % Normal 0.0-0.5 [facility] Comment on above: Performed By: #### C BC #### [facility] [address] [place] [address] Dr. Madisyn Bentley LYMPH # 1.6 103/ul Normal 1.2-3.8 [facility] Comment on above: Performed By: #### C BC #### [facility] [address] [place] [address] Dr. Madisyn Bentley Lymphocytes/100 WBC (Bld) 22.0 % Normal 20.5-60.0 [facility] Comment on above: Performed By: #### C BC #### [facility] [address] [place] [address] Dr. Madisyn Bentley MANUAL DIFF REQ NO Normal [facility] Comment on above: Performed By: #### C BC #### [facility] [address] [place] [address] Dr. Madisyn Bentley MCH (RBC) [Entitic mass] 29.4 pg Normal 26.7-34.0 [facility] Comment on above: Performed By: #### C BC #### [facility] [address] [place] [address] Dr. Madisyn Bentley MCHC (RBC) [Mass/Vol] 32.7 g/dL Normal 29.9-35.2 [facility] Comment on above: Performed By: #### C BC #### [facility] [address] [place] [address] Dr. Madisyn Bentley MCV (RBC) [Entitic vol] 89.8 fL Normal 81.0-99.0 [facility] Comment on above: Performed By: #### C BC #### [facility] [address] [place] [address] Dr. Madisyn Bentley MONO # 0.5 103/ul Normal 0.3-0.8 [facility] Comment on above: Performed By: #### C BC #### [facility] [address] [place] [address] Dr. Madisyn Bentley Monocytes/100 WBC (Bld) 7.3 % Normal 1.7-12.0 [facility] Comment on above: Performed By: #### C BC #### [facility] [address] [place] [address] Dr. Madisyn Bentley NEUT # 4.9 103/ul Normal 1.4-6.5 [facility] Comment on above: Performed By: #### C BC #### [facility] [address] [place] [address] Dr. Madisyn Bentley Neutrophils/100 WBC (Bld) 65.5 % Normal 43.0-75.0 [facility] Comment on above: Performed By: #### C BC #### [facility] [address] [place] [address] Dr. Madisyn Bentley Platelet mean volume (Bld) [Entitic vol] 12.1 fL Normal 9.5-13.5 [facility] Comment on above: Performed By: #### C BC #### [facility] [address] [place] [address] Dr. Madisyn Bentley PLT 171 103/ul Normal 150-450 [facility] Comment on above: Performed By: #### C BC #### [facility] [address] [place] [address] Dr. Madisyn Bentley RBC 4.22 106/ul Normal 4.20-5.40 [facility] Comment on above: Performed By: #### C BC #### [facility] [address] [place] [address] Dr. Maidsyn Bentley WBC 7.4 103/ul Normal 4.0-11.0 [facility] Comment on above: Performed By: #### C BC #### [facility] [address], [place] [address] Dr. Madisyn Bentley LIPID PROFILEon 05-16-2022 CHOL-HDL RATIO NORM SEE BELOW Normal [facility] Comment on above: Result Comment: 3.3 - 4.4 LOW RISK 4.4 - 7.1 AVERAGE RISK 7.1 - 11.0 MODERATE RISK >11.0 HIGH RISK Performed By: #### P T, PTT #### [facility] [address], [place] [address] Dr. Madisyn Bentley Cholesterol [Mass/Vol] 132 mg/dL Normal <=200 [facility] Comment on above: Performed By: #### P T, PTT #### [facility] [address] [address] [address] Madisyn Bentley Cholesterol in HDL [Mass/Vol] 44 mg/dL Normal 40-60 [facility] Comment on above: Performed By: #### P T, PTT #### [facility] [address], [place] [address] Dr. Madisyn Bentley Cholesterol in LDL [Mass/Vol] 59.6 mg/dL Normal [facility] Comment on above: Performed By: #### P T, PTT #### [facility] [address], [place] [address] Dr. Madisyn Bentley Cholesterol.total/C holesterol in HDL [Mass ratio] 3.0 {ratio} Normal [facility] Comment on above: Performed By: #### P T, PTT #### [facility] [address], [place] [address] Dr. Madisyn Bentley HDL NORMAL > or = 60 mg/dl - LO W CARDIOVASCULAR RISK <40 mg/dl - HIGH CARDIOVASCULAR RISK Normal [facility] Comment on above: Performed By: #### P T, PTT #### [facility] [address], [place] [address] Dr. Madisyn Bentley LDL CALC NORMAL SEE BELOW Normal [facility] Comment on above: Result Comment: <100 mg/dl OPTIMAL 100 - 129 mg/dl NEAR OR ABOVE OPTIMAL 130 - 159 mg/dl BORDERLINE HIGH 160 - 189 mg/dl HIGH >190 mg/dl VERY HIGH Performed By: #### P T, PTT #### [facility] [address] [place] [address] Dr. Madisyn Bentley Triglyceride [Mass/Vol] 142 mg/dL Normal <=150 [facility] Comment on above: Performed By: #### P T, PTT #### [facility] [address] [place] [address] Dr. Madisyn Bentley VLDL CALC 28.4 mg/dL Normal [facility] Comment on above: Performed By: #### P T, PTT #### [facility] [address] [place] [address] Dr. Madisyn Bentley PROF 14(COMP METB)on 022 Albumin [Mass/Vol] 3.8 g/dL Normal 3.4-5.0 [facility] Comment on above: Performed By: #### P T, PTT #### [facility] [address] [place] [address] Dr. Madisyn Bentley Albumin/Globulin [Mass ratio] 1.1 {ratio} Normal [facility] Comment on above: Performed By: #### P T, PTT #### [facility] [address] [place] [address] Dr. Madisyn Bentley ALP [Catalytic activity/Vol] 158 U/L Critically high 46-116 [facility] Comment on above: Performed By: #### P T, PTT #### [facility] [address] [place] [address] Dr. Madisyn Bentley ALT [Catalytic activity/Vol] 24 U/L Normal 14-59 [facility] Comment on above: Performed By: #### P T, PTT #### [facility] [address] [place] [address] Dr. Madisyn Bentley Anion gap [Moles/Vol] 14.1 mmol/L Normal [facility] Comment on above: Performed By: #### P T, PTT #### [facility] [address] [place] [address] Dr. Madisyn Bentley AST [Catalytic activity/Vol] 12 U/L Critically low 15-37 [facility] Comment on above: Performed By: #### P T, PTT #### [facility] [address] [address] [address] Madisyn Bentley Bilirubin [Mass/Vol] 0.7 mg/dL Normal 0.2-1.0 [facility] Comment on above: Performed By: #### P T, PTT #### [facility] [address] [place] [address] Dr. Madisyn Bentley Calcium [Mass/Vol] 8.9 mg/dL Normal 8.5-10.1 [facility] Comment on above: Performed By: #### P T, PTT #### [facility] [address] [place] [address] Dr. Madisyn Bentley Chloride [Moles/Vol] 105 mmol/L Normal 98-107 [facility] Comment on above: Performed By: #### P T, PTT #### [facility] [address] [place] [address] Dr. Madisyn Bentley CO2 [Moles/Vol] 23.4 mmol/L Normal 21.0-32.0 [facility] Comment on above: Performed By: #### P T, PTT #### [facility] [address] [place] [address] Dr. Madisyn Bentley Creatinine [Mass/Vol] 1.64 mg/dL Critically high 0.55-1.02 [facility] Comment on above: Performed By: #### P T, PTT #### [facility] [address] [place] [address] Dr. Madisyn Bentley EGFR-AF GHANAIAN 37 mL/min/1.73m2 Critically low >=60 [facility] Comment on above: Performed By: #### P T, PTT #### [facility] [address] [place] [address] Dr. Madisyn Bentley EGFR-NON AF GHANAIAN 30 mL/min/1.73m2 Critically low >=60 [facility] Comment on above: Performed By: #### P T, PTT #### [facility] [address] [place] [address] Dr. Madisyn Bentley Globulin (S) [Mass/Vol] 3.5 g/dL Normal [facility] Comment on above: Performed By: #### P T, PTT #### [facility] [address] [place] [address] Dr. Madisyn Bentley Glucose [Mass/Vol] 222 mg/dL Critically high 74-106 [facility] Comment on above: Performed By: #### P T, PTT #### [facility] [address] [place] [address] Dr. Madisyn Bentley Potassium [Moles/Vol] 4.5 mmol/L Normal 3.5-5.1 [facility] Comment on above: Performed By: #### P T, PTT #### [facility] [address] [place] [address] Dr. Madisyn Bentley Protein [Mass/Vol] 7.3 g/dL Normal 6.4-8.2 [facility] Comment on above: Performed By: #### P T, PTT #### [facility] [address] [place] [address] Dr. Madisyn Bentley Sodium [Moles/Vol] 138 mmol/L Normal 136-145 [facility] Comment on above: Performed By: #### P T, PTT #### [facility] [address] [place] [address] Dr. Madisyn Bentley Urea nitrogen [Mass/Vol] 35.0 mg/dL Critically high 7.0-18.0 [facility] Comment on above: Performed By: #### P T, PTT #### [facility] [address] [place] [address] Dr. Madisyn Bentley Urea nitrogen/Creatinine [Mass ratio] 21.3 mg/mg Normal [facility] Comment on above: Performed By: #### P T, PTT #### [facility] [address] [place] [address] Dr. Madisyn Bentley RENAL FUNCTION PANELon 04-07 Albumin [Mass/Vol] 3.5 g/dL Normal 3.4-5.0 [facility] Comment on above: Performed By: #### R ENAL #### [facility] [address] [address] [address] Madisyn Bentley Calcium [Mass/Vol] 8.1 mg/dL Critically low 8.5-10.1 [facility] Comment on above: Performed By: #### R ENAL #### [facility] [address] [address] [address] Madisyn Bentley Chloride [Moles/Vol] 110 mmol/L Critically high 98-107 [facility] Comment on above: Performed By: #### R ENAL #### [facility] [address] [address] [address] Madisyn Bentley CO2 [Moles/Vol] 20.2 mmol/L Critically low 21.0-32.0 [facility] Comment on above: Performed By: #### R ENAL #### [facility] [address] [place] [address] Dr. Madisyn Bentley Creatinine [Mass/Vol] 1.89 mg/dL Critically high 0.55-1.02 [facility] Comment on above: Performed By: #### R ENAL #### [facility] [address] [address] [address] Madisyn Bentley EGFR-AF GHANAIAN 31 mL/min/1.73m2 Critically low >=60 [facility] Comment on above: Performed By: #### R ENAL #### [facility] [address] [place] [address] Dr. Madisyn Bentley EGFR-NON AF GHANAIAN 26 mL/min/1.73m2 Critically low >=60 [facility] Comment on above: Performed By: #### R ENAL #### [facility] [address] [address] [address] Madisyn Bentley Glucose [Mass/Vol] 149 mg/dL Critically high 74-106 [facility] Comment on above: Performed By: #### R ENAL #### [facility] [address] [place] [address] Dr. Madisyn Bentley Phosphate [Mass/Vol] 3.4 mg/dL Normal 2.6-4.7 [facility] Comment on above: Performed By: #### R ENAL #### [facility] [address] [place] [address] Dr. Madisyn Bentley Potassium [Moles/Vol] 4.5 mmol/L Normal 3.5-5.1 [facility] Comment on above: Performed By: #### R ENAL #### [facility] [address] [place] [address] Dr. Madisyn Bentley Sodium [Moles/Vol] 141 mmol/L Normal 136-145 [facility] Comment on above: Performed By: #### R ENAL #### [facility] [address] [place] [address] Dr. Madisyn Bentley Urea nitrogen [Mass/Vol] 34.0 mg/dL Critically high 7.0-18.0 [facility] Comment on above: Performed By: #### R ENAL #### [facility] [address] [place] [address] Dr. Madisyn Bentley UA RANDOMon 04-07-2022 Bilirubin Ql (U) Negative Normal NEGATIVE [facility] Comment on above: Performed By: #### U A #### [facility] [address] [place] [address] Dr. Madisyn Bentley Clarity (U) CLEAR Normal CLEAR [facility] Comment on above: Performed By: #### U A #### [facility] [address] [place] [address] Dr. Madisyn Bentley Color (U) LT. YELLOW Normal YELLOW [facility] Comment on above: Performed By: #### U A #### [facility] [address] [place] [address] Dr. Madisyn Bentley Glucose Ql (U) Negative Normal NEGATIVE [facility] Comment on above: Performed By: #### U A #### [facility] [address] [place] [address] Dr. Madisyn Bentley Hemoglobin Ql (U) Negative Normal NEGATIVE [facility] Comment on above: Performed By: #### U A #### [facility] [address] [place] [address] Dr. Madisyn Bentley Ketones Ql (U) Negative Normal NEGATIVE [facility] Comment on above: Performed By: #### U A #### [facility] [address] [place] [address] Dr. Madisyn Bentley LEUKOCYTES TRACE Abnormal NEGATIVE [facility] Comment on above: Performed By: #### U A #### [facility] [address] [place] [address] Dr. Madisyn Bentley Nitrite Ql (U) Negative Normal NEGATIVE [facility] Comment on above: Performed By: #### U A #### [facility] [address] [place] [address] Dr. Madisyn Bentley pH (U) 5.5 [pH] Normal 5-9 [facility] Comment on above: Performed By: #### U A #### [facility] [address] [place] [address] Dr. Madisyn Bentley SPEC GRAVITY 1.020 Normal 1.005-<=1.[address] [place] [address] Comment on above: Performed By: #### U A #### [facility] [address] [place] [address] Dr. Madisyn Bentley UA PROTEIN Negative Normal NEGATIVE/ TRACE [facility] Comment on above: Performed By: #### U A #### [facility] [address] [place] [address] Dr. Madisyn Bentley Urobilinogen Qn (U) 0.2 {Luis Eduardo'U}/dL Normal 0.2 - 1. 0 [facility] Comment on above: Performed By: #### U A #### [facility] [address] [place] [address] Dr. Madisyn Bentley URINE T PROTEIN CREAT RATIOo n 04-07-2022 Protein (U) [Mass/Vol] 25.7 mg/dL Critically high <=12.0 [facility] Comment on above: Performed By: #### P T, PTT #### [facility] [address] [place] [address] Dr. Madisyn Bentley UR PROT CREAT RAT 0.29 Normal [facility] Comment on above: Performed By: #### P T, PTT #### [facility] [address] [place] [address] Dr. Madisyn Bentley URINE CREAT 89.48 mg/dL Normal 20.00-300.00 [facility] Comment on above: Performed By: #### P T, PTT #### [facility] [address] [address] [address] Madisyn Bentley RENAL FUNCTION PANELon 11-25 Albumin [Mass/Vol] 3.7 g/dL Normal 3.4-5.0 [facility] Comment on above: Performed By: #### R ENAL #### [facility] [address] [address] [address] Madisyn Bentley Calcium [Mass/Vol] 8.6 mg/dL Normal 8.5-10.1 [facility] Comment on above: Performed By: #### R ENAL #### [facility] [address] [address] [address] Madisyn Bentley Chloride [Moles/Vol] 107 mmol/L Normal 98-107 [facility] Comment on above: Performed By: #### R ENAL #### [facility] [address] [place] [address] Dr. Madisyn Bentley CO2 [Moles/Vol] 23.3 mmol/L Normal 22.0-30.0 [facility] Comment on above: Performed By: #### R ENAL #### [facility] [address] [address] [address] Madisyn Bentley Creatinine [Mass/Vol] 1.56 mg/dL Critically high 0.55-1.02 [facility] Comment on above: Performed By: #### R ENAL #### [facility] [address] [address] [address] Madisyn Bentley EGFR-AF GHANAIAN 39 mL/min/1.73m2 Critically low >=60 [facility] Comment on above: Performed By: #### R ENAL #### [facility] [address] [address] [address] Madisyn Bentley EGFR-NON AF GHANAIAN 32 mL/min/1.73m2 Critically low >=60 [facility] Comment on above: Performed By: #### R ENAL #### [facility] [address] [address] [address] Madisyn Bentley Glucose [Mass/Vol] 106 mg/dL Normal 74-106 [facility] Comment on above: Performed By: #### R ENAL #### [facility] [address] [place] [address] Dr. Madisyn Bentley Phosphate [Mass/Vol] 3.8 mg/dL Normal 2.5-4.5 [facility] Comment on above: Performed By: #### R ENAL #### [facility] [address] [place] [address] Dr. Madisyn Bentley Potassium [Moles/Vol] 4.5 mmol/L Normal 3.4-5.0 [facility] Comment on above: Performed By: #### R ENAL #### [facility] [address] [place] [address] Dr. Madisyn Bentley Sodium [Moles/Vol] 141 mmol/L Normal 137-145 [facility] Comment on above: Performed By: #### R ENAL #### [facility] [address] [place] [address] Dr. Madisyn Bentley Urea nitrogen [Mass/Vol] 27.0 mg/dL Critically high 7.0-18.0 [facility] Comment on above: Performed By: #### R ENAL #### [facility] [address] [place] [address] Dr. Madisyn Bentley UA RANDOMon 11-25-2021 Bilirubin Ql (U) Negative Normal NEGATIVE [facility] Comment on above: Performed By: #### P T, PTT #### [facility] [address] [place] [address] Dr. Madisyn Bentley Clarity (U) CLEAR Normal CLEAR [facility] Comment on above: Performed By: #### P T, PTT #### [facility] [address] [place] [address] Dr. Madisyn Bentley Color (U) LT. YELLOW Normal YELLOW [facility] Comment on above: Performed By: #### P T, PTT #### [facility] [address] [place] [address] Dr. Madisyn Bentley Glucose Ql (U) Negative Normal NEGATIVE [facility] Comment on above: Performed By: #### P T, PTT #### [facility] [address] [place] [address] Dr. Madisyn Bentley Hemoglobin Ql (U) Negative Normal NEGATIVE [facility] Comment on above: Performed By: #### P T, PTT #### [facility] [address] [address] [address] Madisyn Bentley Ketones Ql (U) Negative Normal NEGATIVE [facility] Comment on above: Performed By: #### P T, PTT #### [facility] [address] [place] [address] Dr. Madisyn Bentley LEUKOCYTES Negative Normal NEGATIVE [facility] Comment on above: Performed By: #### P T, PTT #### [facility] [address] [place] [address] Dr. Madisyn Bentley Nitrite Ql (U) Negative Normal NEGATIVE [facility] Comment on above: Performed By: #### P T, PTT #### [facility] [address] [place] [address] Dr. Madisyn Bentley pH (U) 5.5 [pH] Normal 5-9 [facility] Comment on above: Performed By: #### P T, PTT #### [facility] [address] [place] [address] Dr. Madisyn Bentley SPEC GRAVITY 1.015 Normal 1.005-<=1.02 5 [facility] Comment on above: Performed By: #### P T, PTT #### [facility] [address] [place] [address] Dr. Madisyn Bentley UA PROTEIN Negative Normal NEGATIVE/ TRACE [facility] Comment on above: Performed By: #### P T, PTT #### [facility] [address] [place] [address] Dr. Madisyn Bentley Urobilinogen Qn (U) 0.2 {Luis Eduardo'U}/dL Normal 0.2 - 1. 0 [facility] Comment on above: Performed By: #### P T, PTT #### [facility] [address] [place] [address] Dr. Madisyn Bentley URINE T PROTEIN CREAT RATIOo n 11-25-2021 Protein (U) [Mass/Vol] 20.5 mg/dL Critically high <=12.0 [facility] Comment on above: Performed By: #### U RTPCR #### [facility] [address] [place] [address] Dr. Madisyn Bentley UR PROT CREAT RAT 0.25 Normal [facility] Comment on above: Performed By: #### U RTPCR #### [facility] [address] [place] [address] Dr. Madisyn Bentley URINE CREAT 81.12 mg/dL Normal 20.00-300.00 [facility] Comment on above: Performed By: #### U RTPCR #### [facility] [address] [place] [address] Dr. Madisyn Bentley CYTOLOGYon 06-21-2021 CYTOLOGY Specimen #: [id number] Submitting Physician: ABNER WHEELER MD SPECIMEN [...] EYE, VITREOUS FINE NEEDLE ASPIRATE THIN PREP Non-Orderly Date of Report: 06/22/2021 Date of Procedure: 06/21/2021 Date of Receipt: 06/22/2021 Submitted by: ABNER WHEELER MD Location: Diagnostic interpretation performed at [facility], [facility], [place] [id number]. CLIA Number: [id number] Normal [facility] Comment on above: Performed By: #### C #### See report for performing lab information. CNOVSPon 04-15-2018 CNOVSP Visit (SP) Office ([facility]) JEMTRISHA ([id number]) 1945 FDate Time Provider Department04/15/18 2:15 PM ROXANN ONEAL HEMACL During your visit today, we recorded the following information about you: Temperature Pulse Respiration Blood pressure 98.2 degrees 66/minute 16/minute 147/69 Weight Height 80.9 kg 1.626 mMINDY OLIVE ONEAL PA-C 04/15/2018 3:44 PM SignedPatient: Trisha Jem [facility] 1945 Attending [facility]ician: Dr. Sadi Nolan: April [...] of lymph node dissection. The tumor was ER/FL positive,HER-2 positve. Ultimately the patient had to [...] questions or concernsJORDON SHAY-CReferring Provider: SADI WALLACE [[id number]]Allergies As of Date: 04/15/2018(No Known Allergies)Date Reviewed: 04/15/2018Reviewed by: Roxann Oneal - Fully AssessedReason for Visit: Breast Cancer [519] Cmt: follow upPrimary Visit Diagnosis:Malignant neoplasm of left breast in female, estrogen receptor positive, unspecified site of breast (HCC) [C50.912, Z17.0]Order(s):[facility] DIAGNOSTIC RT [[id number]] Order #: [id number] FUTUREDisposition: Return in about 1 year (around [...] FOR*Encounter Status:Closed by ROXANN ONEAL on 04/15/18 [facility] PROGRESSon 04-15-2018 Protein mass conc HNO ID: [id number] thor: Roxann Puenteice: (none)Author Type: Physician AssistantType: Progress NotesFiled: 04/15/2018 3:44 PMNote Text:Patient: Trisha Parish [facility] 1945 Attending Physician: Dr. Sadi Sotoate: April [...] time of lymph node dissection. The tumor wasER/FL positive, HER-2 positve. Ultimately the patient had [...] with questions or concernsROXANN ONEAL PA-C [facility] MAMM OUTSIDE DICOM IMPORT -N BNRon 04-05-2018 MAMM OUTSIDE DICOM IMPORT -NBNR Images were obtained outside of [facility] [id number] [facility] Vital Signs Date Time Vital Sign Value Performing Clinician Facility 07-17-2023 11:00-0500 Body height 153.67 cm Sanya Tineo Other [facility] Other 07-17-2023 11:00-0500 Body mass index (BMI) [Ratio] 28.5 kg/m2 Snaya Tineo Other [facility] Other 07-17-2023 11:00-0500 Body weight 67.31 kg Sanya Tineo Other [facility] Other 07-17-2023 11:00-0500 Diastolic blood pressure 65 mm[Hg] Sanya Tineo Other [facility] Other 07-17-2023 11:00-0500 Systolic blood pressure 121 mm[Hg] Sanya Tineo Other [facility] Other 05-11-2023 11:30-0400 Body height 153.67 cm Sanya Tineo Other [facility] Other 05-11-2023 11:30-0400 Body mass index (BMI) [Ratio] 27.27 kg/m2 Sanya Tineo Other [facility] Other 05-11-2023 11:30-0400 Body weight 64.41 kg Sanya Tineo Other [facility] Other 05-11-2023 11:30-0400 Diastolic blood pressure 61 mm[Hg] Sanya Tineo Other [facility] Other 05-11-2023 11:30-0400 SaO2% (BldA) [Mass fraction] 97 % Sanya Tineo Other [facility] Other 05-11-2023 11:30-0400 Systolic blood pressure 107 mm[Hg] Sanya Tineo Other [facility] Other 04-17-2023 10:45-0400 Body height 153.67 cm Sanya Tineo Other [facility] Other 04-17-2023 10:45-0400 Body mass index (BMI) [Ratio] 27.89 kg/m2 Sanya Tineo Other [facility] Other 04-17-2023 10:45-0400 Body weight 65.86 kg Sanya Tineo Other [facility] Other 04-17-2023 10:45-0400 Diastolic blood pressure 72 mm[Hg] Sanya Tineo Other [facility] Other 04-17-2023 10:45-0400 Respiratory rate 12 /min Sanya Tineo Other [facility] Other 04-17-2023 10:45-0400 Systolic blood pressure 133 mm[Hg] Sanya Tineo Other [facility] Other 02-09-2023 11:00-0400 Body height 153.67 cm Sanya Tineo Other [facility] Other 02-09-2023 11:00-0400 Body mass index (BMI) [Ratio] 27.47 kg/m2 Sanya Tineo Other [facility] Other 02-09-2023 11:00-0400 Body weight 64.86 kg Sanya Tineo Other [facility] Other 02-09-2023 11:00-0400 Diastolic blood pressure 62 mm[Hg] Sanya Tineo Other [facility] Other 02-09-2023 11:00-0400 SaO2% (BldA) [Mass fraction] 98 % Sanya Tineo Other [facility] Other 02-09-2023 11:00-0400 Systolic blood pressure 125 mm[Hg] Sanya Tineo Other [facility] Other 09-08-2022 11:30-0500 Body height 153.67 cm Sanya Tineo Other [facility] Other 09-08-2022 11:30-0500 Body mass index (BMI) [Ratio] 29.77 kg/m2 Sanya Tineo Other [facility] Other 09-08-2022 11:30-0500 Body weight 70.31 kg Sanya Tineo Other [facility] Other 02-03-2023 11:30-0500 Diastolic blood pressure 58 mm[Hg] Sanya Tineo Other [facility] Other 09-08-2022 11:30-0500 SaO2% (BldA) [Mass fraction] 97 % Sanya Tineo Other [facility] Other 09-08-2022 11:30-0500 Systolic blood pressure 110 mm[Hg] Sanya Tineo Other [facility] Other Encounters Encounter Date Encounter Type Care Provider Facility Start: 10-19-2023 End: 10-19-2023 ambulatory DIRK ONEILL Not Available Start: 10-03-2023 End: 10-03-2023 ambulatory JENNIFER H TIMMIS Not Available Start: 08-28-2023 End: 08-28-2023 ambulatory DIRK ONEILL Not Available Start: 08-28-2023 End: 08-28-2023 Patient encounter procedure Dirk Oneill DO Work Phone: [facility] Comment on above: 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 Start: 05-11-2023 End: 05-11-2023 ambulatory Sanya Tineo Other [facility] Other Start: 05-11-2023 Office outpatient vi sit 15 minutes Sanya Tineo [facility] Start: 05-09-2023 Telephone encounter Sanya Rivka [facility] Start: 05-09-2023 End: 05-10-2023 ambulatory MARGARET ALVAREZ [facility] Other Start: 05-08-2023 End: 05-08-2023 ambulatory Sanya Tineo Other [facility] Other Start: 05-08-2023 Telephone encounter Sanya Rivka [facility] Start: 04-17-2023 End: 04-17-2023 ambulatory Sanya Tineo Other [facility] Other Start: 04-17-2023 Office outpatient vi sit 15 minutes Sanya Tineo [facility] Start: 04-11-2023 End: 04-11-[address] [facility] Start: 04-04-2023 Evaluation and manag ement of inpatient [facility] Start: 04-03-2023 End: 04-04-2023 Encounter for preprocedural cardiovascular examination [facility] Start: 04-03-2023 End: 04-04-2023 Evaluation and management of inpatient [facility] Start: 2023 End: [address] [facility] Start: 02-23-2023 End: 02-24-2023 ambulatory MARGARET ALVAREZ [facility] Start: 02-21-2023 End: 02-21-2023 [facility] Start: 02-18-2023 End: 02-20-2023 Evaluation and management of inpatient Jailene Quesada Facility:[facility] Start: 02-09-2023 End: 02-09-2023 ambulatory Sanya Tineo Other [facility] Other Start: 02-09-2023 Office outpatient vi sit 25 minutes Sanya Tineo [facility] Start: 02-07-2023 Evaluation and manag ement of inpatient MARGARET ALVAREZ [facility] Start: 02-05-2023 Evaluation and manag ement of inpatient TU [facility] Start: 02-05-2023 Evaluation and manag ement of inpatient [facility] Start: 02-05-2023 End: 02-07-2023 Evaluation and management of inpatient TU [facility] Start: 01-23-2023 End: 01-23-2023 ambulatory [facility] Start: 01-17-2023 End: 01-17-[address] [facility] Start: 12-05-2022 End: 12-05-2022 ambulatory Sanya Tineo Other [facility] Other Start: 12-05-2022 Telephone encounter Sanya Tineo [facility] Start: 12-04-2022 End: 12-04-2022 ambulatory Sanya Tineo Other [facility] Other Start: 12-04-2022 Telephone encounter Sanya Tineo [facility] Start: 10-24-2022 End: 10-24-2022 ambulatory DOE [facility] Start: 10-06-2022 End: 10-07-2022 ambulatory SHARITA KHAN Facility:[facility] Start: 10-06-2022 Encounter for prepro cedural cardiovascular examination [facility] Start: 09-20-2022 End: 09-20-2022 ambulatory [facility] Start: 09-12-2022 Evaluation and manag ement of inpatient MIKAYLA MONCADA [facility] Start: 09-12-[address] SANYA TINEO Facil ity:[facility] Start: 09-11-2022 Evaluation and manag ement of inpatient [facility] Start: 09-10-2022 Evaluation and manag ement of inpatient YOUNGSOOK DINORA [facility] Start: 09-10-2022 End: 09-12-2022 Evaluation and management of inpatient MICHELE GOLDSMITH [facility] Start: 09-10-2022 End: 09-10-[address] MICHELE GOLDSMITH . Facility:[facility] Start: 09-08-2022 End: 09-08-2022 ambulatory Sanya Tineo Other [facility] Other Start: 09-08-2022 Office outpatient vi sit 25 minutes Sanya Tineo [facility] Start: 06-03-2022 End: 06-04-[address] SANYA TINEO Facility:[facility] Start: 05-23-2022 End: 05-24-2022 ambulatory DIAMOND HILARIO Facility:[facility] Start: 05-16-2022 End: 05-17-[address] SANYA TINEO Facility:[facility] Start: 04-07-2022 End: 04-08-2022 ambulatory SHARITA KHAN Facility:[facility] Start: 11-25-2021 End: 11-26-2021 ambulatory SHARITA AKRANJEET Facility:[facility] Start: 07-08-2018 End: 07-09-2018 Patient encounter procedure DEFAULT PHYSICIAN Facility:[facility] Start: 04-15-2018 End: 04-16-2018 Patient encounter SADI WALLACE [facility] Procedures Date Procedure Procedure Detail Performing [...] Office Visit [facility] [address] [facility] [address] [place] [id number] Jennifer Morales MD [address] [facility] [address] [place] [address] [facility] Start: 06-01-2021 Pneumococcal Vaccine : 65+ Years (2 - PPSV23 or PCV20) Pneumococcal Vaccine: 65+ Years (2 - PPSV23 or PCV20) [facility] Immunizations Immunization Date Immunization Notes Care Provider Fa cility 06-28-2022 COVID-19 Pfizer (Pediatric) Sanya Tineo Other [facility] Other 06-16-2022 influenza virus vaccine, split virus (incl. purified surface antigen) Sanya Tineo Other [facility] Other 09-03-2020 COVID-19 Vaccine Moderna - Documentation Purposes Only Sanya Tineo Other [facility] Other 04-26-2020 influenza virus vaccine, split virus (incl. purified surface antigen) Sanya Tineo Other [facility] Other 06-20-2015 influenza virus vaccine, split virus (incl. purified surface antigen) Sanya Tineo Other [facility] Other 06-01-2015 pneumococcal conjuga te vaccine, 13 valent Sanya Tineo Other [facility] Other Payers Date Payer Category Payer Medicare [id number] 2023 Self-pay 2017 Medicare [employer]M MEDICARE ADVANTAGE [facility] MEDICARE ADVANTAGE [id number] 2017-Present [address] [place] [address] [id number] 1959 Medicare [id number] 1945 Unknown [id number] [id number] 1945 Unknown [id number] 2.16.840.1.598533.3.579.2.593 1945 Unknown [id number] 2.16.840.1.874480.3.579.2.593 1945 Unknown [id number] 2.16.840.1.871646.3.579.2.593 1945 Unknown [id number] 2.16.840.1.224177.3.579.2.593 1945 Unknown [id number] 2.16.840.1.173255.3.579.2.593 1945 Unknown [id number] 2.16.840.1.680576.3.579.2.593 1945 Unknown [id number] 2.16.840.1.959889.3.579.2.593 1945 Unknown [id number] 2.16.840.1.818649.3.579.2.593 1945 Unknown [id number] 2.16.840.1.085117.3.579.2.125 9 1945 Unknown [id number] 2.16.840.1.876003.3.579.2.125 9 1945 Unknown [id number] 2.16.840.1.100151.3.579.2.125 9 1945 Unknown [id number] 2.16.840.1.254002.3.579.2.125 9 1945 Unknown [id number] 2.16.840.1.241931.3.579.2.125 9 Unknown Unknown [id number] 2.16.840.1.305206.3.579.2.531 Social History Date Type Detail Facility Unknown if ever smoked [facility]erged [facility] Other Start: 07-24-2023 Sex Assigned At N [facility] Other Start: 07-24-2023 Tobacco smoking status NHIS Never smoked tobacco [facility] Start: 07-24-2023 Tobacco use and exposure Smokeless tobacco non-user [facility] Start: 08-28-2023 Alcohol intake Ex-drinker (finding) [facility] Start: 07-24-2023 History of Social function [facility] Start: 1945 Sex Assigned At Not on file N [facility] Clinical Notes 06-21-2021 to 08-28-2023 Dirk [...] 100 MG/4ML Route: Intravitreal, Site: Left Eye [facility]: 87290-747-91, Lot: [id number], Expiration date: 10/24/2023, Waste: 0 mL Post-op [...] increased pain, redness, decreased vision or concerns. [facility] 08-28-2023 History of Presen t illness Narrative [...] 100 MG/4ML Route: Intravitreal, Site: Left Eye [facility]: 87812-423-97, Lot: [id number], Expiration date: 10/24/2023, Waste: 0 mL Post-op [...] vision or concerns. documented in this encounter [facility] 07-17-2023 Evaluation note Encounter Date Diagnosis Assessment [...] Z85.3) Handwrote rx for prothesis bra #3 [facility] Other 10-13-2023 Note[place] Cardiology - [facility] Subjective Trisha Parish is a [...] NSTEMI (non-ST elevated myocardial infarction) (CMS/[facility]) Hx of CABG Severe aortic stenosis Nonrheumatic [...] In September 2022 she was admitted to [facility] with weakness. She was [...] presented to the emergency room at the [facility] with dizziness and low blood pressure. [...] and dry. Neurological: General (more content not included)...[facility] 05-11-2023 Evaluation note* Encounter Date Diagnosis Assessment Notes Treatment Notes Treatment Clinical Notes May, Bronchitis (ICD-10 - J40) Complete course of antibiotics. Discussed steroids for dyspnea. was recently ill as well. ER if symptoms worsen or fevers begin over weekend. [facility] Other 10-03-2023 Evaluation note* Encounter Date Diagnosis Assessment Notes Treatment Notes Treatment Clinical Notes May, Cough, unspecified type (ICD-10 - R05.9) [facility] Other 09-12-2023 Evaluation note* Encounter Date Diagnosis Assessment Notes Treatment Notes Treatment Clinical Notes Apr, Other specified postprocedural states (ICD-10 - Z98.890) s/p Aortic valve repair - doing very well. Energy is improving. 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 She was [...] presented to the emergency room at the [facility] with dizziness and low blood pressure. [...] Behavior: Behavior is cooperati (more content not included)...[facility]08-30-2023 NoteSubjective Patient lying in bed without complaints. [...] CT surgery standpoint. Medical management per cardiology team.[facility]2023 Note04/04/23 1035 Admission Assessment Questions Verify insurance [...] Discharge? Yes Does the patient have a corrections caseworker assigned to them through their insurance? No Living Arrangement (Current/Prior to Hospitalization) Private residence (3 steps to enter) Does the patient have history of HHC or SNF? Yes (Hx of rehab placement in [place]) Assistive Device Grab bars Patient's goal for [...] link and activate MyChart? MyChart already active [facility]08-29-2023 NoteIndications; Mrs. Robbins is a 78-year-old female [...] the right common femoral Utilizing 2 6 Macedonian ProGlide devices 6. Angio-Seal vascular closure in the right femoral, artery Farm Field Manager; interventional matching machine operator; Toño Balbuena MD Cardiac surgery matching machine operator; Lina Lamas MD ; tapping machine operator automatic Herve Mayorga MD ; Methods; Procedure was explained to the patient with risks and benefits. She signed informed consent. She was brought to the Music Instructor in a fasting state. The procedure was performed the Music Instructor under conscious sedation. Both groin areas were prepped and draped in usual fashion. Micropuncture technique and ultrasound guidance was used to access the right common femoral artery and inner cannula angiography was performed following by upsizing to a 6 Macedonian by 11 cm sheath. The same was done for for access in the left common femoral artery. Ultrasound guidance was used for micropuncture access in left common femoral vein and 6 Macedonian by 11 cm introducer sheath was secured in place. This time we proceeded with preclosure in the right common femoral artery using 2 crossing perclosure devices and the access was then upsized over wire to the 10 Macedonian sheath. Heparin was given intravenously and therapeutic ACT was confirmed during the rest of the procedure and additional heparin was given as needed. A 5 Macedonian balloontipped pacemaker wire was advanced through the femoral sheath into the right ventricular apex and adequate capture was confirmed. Right common femoral artery was accessed and upsized over an Amplatz extra-stiff wire to the 14 Macedonian Medtronic sheath. Through the left common femoral sheath an angled 6 Macedonian pigtail catheter was then advanced to the ascending aorta into the 9 coronary cusp. Aortic root angiography was performed and the cause overlap view as determined by prior CT scan measurements. A 6 Macedonian AL diagnostic catheter was advanced via the right femoral sheath and using a stiff Glidewire the aortic valve was crossed and the catheter was advanced into the left ventricular cavity and using exchange length J-wire a 6 Macedonian angled pigtail catheter was advanced to make [...] valve over the wire across the aortic levelock aortic valve and under pacing at 120 [...] and removed outside the body. The 14 Macedonian access sheath was placed across the right femoral and 6 Macedonian angled pigtail catheter was advanced across the [...] previous placed per (more content not included)... [facility]08-29-2023 NotePatient: Trisha Parish Procedure Information Date/Time: 04/03/23 1100 Procedure: TAVR Location: [facility] SECURITY AND COMPLIANCE PROJECT MANAGER 3 / [facility] (Cath) Providers: Toño Balbuena MD Clinical information reviewed: Allergies Meds OB Status Physical Exam Airway Mallampati: II TM distance: >3 FB Neck ROM: full Cardiovascular Rhythm: regular Rate: normal Dental Pulmonary Abdominal Anesthesia Plan ASA 3 other (Moderate sedation) Anesthetic plan and risks discussed with patient. Use of blood products discussed with patient who consented to blood products. Additional Equipment [facility]sPrem[facility]-2023 Note [place] [facility] - [facility] Subjective Trisha Parish is a [...] In September 2022 she was admitted to [facility] with weakness. She was [...] , Rfl: carvedilol (Co (more content not included)...[facility] 02-21-2023 NoteCardiology Clinic Note Subjective Trisha Parish [...] Never Update: 02/21/2023 She was hospitalized at [facility] for 3 days after presenting with dizziness [...] other elevated She was hospitalized 02/04-02/07/23 at [facility] and underwent coronary angiography [...] Date WBC 6.44 02/06 (more content not included)...[facility] 02-09-2023 Evaluation note* Encounter Date Diagnosis Assessment Notes Treatment Notes Treatment Clinical Notes Feb, Nonrheumatic aortic valve stenosis (ICD-10 - I35.0) Discussed followup testing and likely procedure coming up at [facility] at length w pt and Feb, Chronic kidney disease, stage 3 unspecified (ICD-10 - N18.30) Reviewed labs - condition stable Feb, CAD in levelock artery (ICD-10 - I25.10) Further f/u w [facility] Cardiology Feb, Essential hypertension (ICD-10 - I10) Improved on present meds. [facility] Other 07-05-2023 NotePhysical Therapy Physical Therapy Evaluation [...] in front. During session, patient confided in engineering writer that they felt as though their balance had decreased during this admission and that they were worried about walking due to occasional and unpredictable losses of balance. Patient reported that they thought it could be related to neuropathy at their feet, but were unsure. Patient told engineering writer that they wished to address loss of balance issues sooner rather than later and they felt less confident walking. Patient Active Problem List Diagnosis Heart block Acute renal failure syndrome (CMS/HCC) Anemia Atrial fibrillation ([facility]/HCC) Benign hypertensive renal disease Carotid artery stenosis Cerebrovascular accident ([facility]/HCC) Coronary arteriosclerosis Essential hypertension Hypertensive disorder Hyperparathyroidism due to renal insufficiency ([facility]/HCC) Breast CA ([facility]/HCC) Malignant neoplasm of female breast ([facility]/HCC) Proteinuria Stage 3 chronic kidney disease ([facility]/HCC) Stage 4 chronic kidney disease ([facility]/HCC) Type 2 diabetes mellitus ([facility]/HCC) Vitamin D deficiency 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 ([facility]/HCC) Pre-operative cardiovascular examination, recent myocardial infarction (CMS/HCC) Cardiac pacemaker in situ Postural dizziness with presyncope NSTEMI (non-ST elevated myocardial infarction) ([facility]/HCC) Hx of CABG Severe aortic stenosis Past Medical History: Diagnosis Date A-fib ([facility]/HCC) Cancer (CMS/HCC) Coronary artery disease Hypertension Myocardial infarct ([facility]/HCC) Stroke ([facility]/HCC) Past Surgical History: Procedure Laterality Date BREAST [...] Level of Function Prior Function Level of Cook: Independent with ADLs and functional transfers Prior [...] Standing Balance Dynamic Darwin (more content not included)...[facility] 02-07-2023 NoteHospital Medicine Discharge Summary Final Discharge [...] Medications These medications were sent to [facility] [place] [address] [address] [place] [address] [place] [address], [facility] [address] lisinopril 40 mg tablet NIFEdipine CC 60 [...] Normal activity as tolerate (more content not included)...[facility]07-04-2023 NoteHospital Medicine Daily Progress Note - 02/06/2023 1:29 PM; Room: [address] [place] [address] Admission: 02/04/2023 10:47 PM; Length of stay: 2 days THE HOSPITALIST TEAM PREFERS TO USE [employer] CHAT FOR COMMUNICATION 7AM-7PM. IF I DO NOT RESPOND WITHIN 15 MINUTES, PLEASE PAGE ME/CALL THROUGH THE [facility]ET [facility]IER. FROM 7PM-7AM, PLEASE PAGE [phone](COVR) Code Status: Full Code Discharge Destination: home [...] Cardiac pacemaker in situ Anemia Atrial fibrillation ([facility]) Carotid artery stenosis Essential hypertension Hypertensive disorder Breast CA ([facility]) Type 2 diabetes mellitus ([facility]) Vitamin D deficiency Postural dizziness with presyncope Hx of CABG NSTEMI (non-ST elevated myocardial infarction) ([facility]) Assessment and Plan #Near-syncope #NSTEMI type I [...] Results Component Value D (more content not included)...[facility]07-04-2023 Note Attestation signed by Matilda Valentin MD [...] Value Ventricular Rate 72 Atrial Rate 72 FL Interval 162 QRS DURATION 150 QT Interval 464 QTC CALCULATION(BAZETT) 508 P [place] 70 R-[place] -40 T Wave [place] 103 Impression Atrial-sensed ventricular-paced rhythm Abnormal ECG When compared with ECG of 10-SEP-2022 13:04, Electronic ventricular pacemaker has replaced Sinus rhythm Confirmed by Cheryl VALENTIN, MATILDA Robles ([id number]) on 02/05/2023 8:39:37 AM Lab Results Component Value Date TROPONINI 0.25 (HH) 02/05/2023 Complete Echo (TTE) w/wo Imaging Agent, Strain, 3D, Bubble Study Result Date: 02/05/2023 1 1 [facility] Heart Station [address], [place] [phone] (fax) Echocardiogram-[facility] Name: TRISHA PARISH Study Date: 02/05/2023 09:59 AM B/P: 136 mmHg/65 mmHg HR: 61 bpm Date of : 1945 Location: [facility] Height: 63 in. Age: [...] cm?? Aortic Va (more content not included)... [facility]07-04-2023 NoteCTA CHEST W AND/OR WO IV CONTRAST [...] 3 cusped view, anterior view and no JUKE BOX MECHANIC-CAU view are obtained in 3-D volume rendered [...] diameter of 23 mm. Electronically signed: Fely Carrington.[facility] Comment on above:Order Comment: TAVR [id number] NoteCTA ABDOMEN PELVIS W AND/OR WO IV [...] spondylosis and levoconvex scoliosis. Electronically signed: Fely Carrington.[facility] 02-05-2023 NotePatient: Trisha Parish Procedure Information Date/Time: 02/05/23 1800 Procedures: Coronary angiography Right heart cath Valve assessment - Aortic valve Location: [facility] SECURITY AND COMPLIANCE PROJECT MANAGER 3 / [facility] (Cath) Providers: Herve Mayorga MD Clinical information reviewed: Allergies Meds Physical Exam Airway Mallampati: III Cardiovascular Rhythm: regular Dental Pulmonary Abdominal Anesthesia Plan ASA 3 other (Conscious sedation ) intravenous induction Anesthetic plan and risks discussed with patient. Use of blood products discussed with patient who. Additional Equipment RequestsPrem[facility] Health [facility]-03-2023 Note Clinical Nutrition Assessment Name: Trisha Parish [...] Goals: intake > 75% meals Alexander Chowdhury RDPremier Health Miami Valley [facility]07-03-2023 NoteHospital Medicine Daily Progress Note - 02/05/2023 12:08 PM; Room: 3122/3122-01 Admission: 02/04/2023 10:47 PM; Length of stay: 1 days THE HOSPITALIST TEAM PREFERS TO USE [employer] CHAT FOR COMMUNICATION 7AM-7PM. IF I DO NOT RESPOND WITHIN 15 MINUTES, PLEASE PAGE ME/CALL THROUGH THE VALET CASHIER. FROM 7PM-7AM, PLEASE PAGE [phone](COVR) Code Status: Full Code Discharge Destination: home [...] 1.36 09/10/2022 Lab Results Component Value Date [id number] 177 (L) 09/10/2022 IRON 27 (L) 09/10/2022 TIBC 203 (L) 09/10/2022 Imaging ECG 12 lead Atrial-sensed ventricular-paced rhythm Abnormal ECG When compared with ECG of 10-SEP-2022 13:04, Electronic ventricular pacemaker has replaced Sinus rhythm Confirmed by Cheryl VALENTIN, MATILDA Robles ([id number]) on 02/05/2023 8:39:37 AM Discharge Planning Discharge Planning Has discharge transport been arranged?: No Signed Josr Ray NP Hospital Medicine 02/05/2023 12:08 PMPremier Health [facility]07-03-2023 NoteHospital Medicine History and Physical 02/05/2023 12:23 AM THE HOSPITALIST TEAM PREFERS TO USE [employer] CH[employer] FOR COMMUNICATION 7AM-7PM. IF I DO NOT RESPOND WITHIN 15 MINUTES, PLEASE PAGE ME/CALL THROUGH THE VALET CASHIER. FROM 7PM-7AM, PLEASE PAGE [phone](COVR) Chief Complaint Direct transfer History of Present [...] 02/05/2023 Pre-operative cardiovascular examination, recent myocardial infarction ([facility]) 10/06/2022 Atrial fibrillation ([facility]) 09/20/2022 Carotid artery stenosis 09/20/2022 Cerebrovascular accident ([facility]) 09/20/2022 Coronary arteriosclerosis 09/20/2022 Hypertensive disorder 09/20/2022 Heart block 09/10/2022 Hyperparathyroidism due to renal insufficiency ([facility]) 04/02/2019 Stage 4 chronic kidney disease ([facility]) 04/02/2019 Anemia 02/19/2017 Essential hypertension 02/19/2017 Malignant neoplasm of female breast ([facility]) 02/19/2017 Proteinuria 02/19/2017 Vitamin D deficiency 02/19/2017 Type 2 diabetes mellitus ([facility]) 07/09/2014 Acute renal failure syndrome ([facility]) 11/06/2013 Benign hypertensive renal disease 11/06/2013 Stage 3 chronic kidney disease ([facility]) 11/06/2013 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 Past Medical History Past Medical History: Diagnosis Date A-fib (CMS/HCC) Cancer (CMS/HCC) Coronary artery disease Hypertension Myocardial infarct (CMS/HCC) Stroke ([facility]/HCC) Past Surgical History Past Surgical History: Procedure Laterality Date BREAST SURGERY CHOLECYSTECTOMY CORONARY ARTERY BYPASS GRAFT HYSTERECTOMY Social History Social History Socioeconomic Histor (more content not included)...[facility]06-20-2023 NoteUT Electrophysiology Consult Note Reason for visit: s/p PPM for AV block, AF s/p cryomaze HPI: Trisha Parish is a 77 y.o. 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 She was recently admitted to [facility] for weakness, suspected to [...] stroke who presented with generalized weakness to [facility]. At [facility], EKG demonstarted a 2:1 AV block with prolonged FL interval 266. Chest x-ray demonstrated possible trace [...] heart rate 59. Patient was transferred to [facility] for further evaluation by [...] PMH: Past Medical History: Diagnosis Date A-fib ([facility]) Cancer ([facility]/HCC) Coronary artery disease Hypertension Myocardial infarct ([facility]) Stroke ([facility]) PSH: Past Surgical History: Procedure Laterality Date [...] mg chemo tablet anastrozole (more content not included)...[facility]06-14-2023 NoteUT Cardiology - [facility] Clinic Subjective Trisha Parish is a [...] In September 2022 she was admitted to [facility] with weakness. She was [...] capsule in the morning., Disp: , Rfl: [employer] Stephy 2 Sensor kit, , Disp: , [...] (Pepcid) 20 mg tablet (more content not included)...[facility]03-03-2023 NoteDressing removed and incision is healing well without any s/s of infection.[facility]03-03-2023 NoteHypertension is currently well controlled with addition of nifedipine, continue current med regime.[facility]03-03-2023 NoteUTP CARDIOLOGY PROGRESS NOTE HPI: Trisha Parish [...] Bubble Study Result Date: 09/11/2022 1 1 [facility] Heart Station [address] [place] [address] [phone] (fax) Echocardiogram-[facility] Name: TRISHA PARISH Study Date: 09/11/2022 10:26 AM B/P: 125 mmHg/69 mmHg HR: 68 bpm Date of : 1945 Location: [facility] Height: 63 in. Age: [...] suggest mildly elevated right (more content not included)...[facility]03-03-2023 NotePatient is here today for hypertension. Review of Systems Cardiovascular: Positive for irregular heartbeat. Gastrointestinal: Positive for constipation. All other systems reviewed and are negative.[facility] 09-20-2022 Note-s/p dual-chamber PPM -Follow-up with device clinic within the next 2 to 3 [facility]Un[facility]- He is hypertensive today but also has not had nifedipine -Currently takes 60 mg in the morning and 30 mg at night -We will have her start with 30 mg daily and return to clinic in 1 to 2 weeks for hypertension checkUnSumma Health [facility]02-15-2023 NoteCoronary artery disease is stable -Continue current medicationsUnSumma Health [facility]02-15-2023 Note- [id number] (age, gender, history of CVA) -s/p PARISH clipping, she is on Plavix -Follow-up with device check for concerns of arrhythmiaUnSumma Health [facility]02-15-2023 Note- Follow-up with barrel repairer regarding calcitriol [facility]02-15-2023 NoteUT Electrophysiology Consult Note Reason for visit: hospital follow up, wound check, hypertension HPI: Trisha Parish is a 77 y.o. 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 She was recently admitted to [facility] for weakness, suspected to [...] to continue the medication and follow-up with PCP/barrel repairer Her device dressing is clean dry and [...] stroke who presented with generalized weakness to [facility]. She presented with 2-day history of exertional shortness of breath and weakness with intermittent palpitations. She stated that her legs felt heavy. She denied any recent changes of medication and illness. Patient states that she does take Plavix daily. She denies any use of anticoagulation. At [facility], EKG demonstarted a 2:1 AV block with prolonged FL interval 266. Chest x-ray demonstrated possible trace [...] heart rate 59. Patient was transferred to [facility] for further evaluation by [...] mitral regurgitation, mild to (more content not included)...[facility]02-15-2023 NotePatient here for wound check s/p device placement with Dr. Soto on 09/11/2022. She called the office yesterday to make us aware her BP has been running in the 170's-180's systolic since nifedipine was discontinued while at [facility]. Still feels palpitations. She sees nephrology out of [place]. Review of Systems Constitutional: Positive for malaise/fatigue. Cardiovascular: Positive for palpitations. All other systems reviewed and are negative.[facility] 09-12-2022 NoteCardiology Progress Note Subjective Subjective: Assessed [...] Lab PROCEDURE PERFORMED: 1. Implantation of pacemaker ([place] [employer]) 2. Ultrasound guided venous access INDICATIONS: 1. [...] for device interrogation and 3 months with [employer]. Mikayla Moncada CENTRIFUGAL STATION OPERATOR Division of Cardiology, [facility]- [phone] Pager- [phone] Email- [email or web address]02-06-2023 NoteDUAL CHAMBER PACEMAKER IMPLANT PROCEDURE NOTE DATE OF PROCEDURE: 09/11/2022 PERFORMING PHYSICIAN: Dr. Doe Soto CONSENT: Patient LOCATION: EP Lab PROCEDURE PERFORMED: 1. Implantation of pacemaker ([place] [employer]) 2. Ultrasound guided venous access INDICATIONS: [...] using modified seldinger technique using a 5 Macedonian micro-puncture needle on two occasions and 0.35 [...] for the device above the muscle. 6 [place]onian Safesheaths were placed over the wire. An active fixation [employer] pacing lead was then delivered through the 6Fsheath to the right ventricle. After confirmation of lead position on orthogonal views (CASILLAS and BURUNDIAN) to confirm septal position, the screw was activated, and the lead was placed in the right ventricular mid cavity towards the septum. After confirmation of good sensing parameters, injury pattern and pacing thresholds, 10V pacing was done and no diaphragmatic stimulation was noted. It was then secured in the pocket using three 1-0 Silk sutures. Then an active fixation [place] [employer] lead was delivered through the 6Fsheath to the right atrial appendage. After confirmation of lead position on orthogonal views (CASILLAS and BURUNDIAN), the screw was activated. 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 Use of blood products discussed with patient who. Additional Equipment RequestsPremier Health [facility]02-06-2023 Note Attestation signed by Matilda Valentin MD [...] 98 QT Interval 464 QTC CALCULATION(BAZETT) 455 R-[place] 20 T Wave [place] 14 Impression Sinus rhythm with 2nd degree A-V block (Mobitz I) Moderate voltage criteria for LVH, may be normal variant ( Sokolow-Lord , [place] product ) Nonspecific ST abnormality Abnormal ECG [...] CAD s/p CABG (2014 (more content not included)...[facility]02-06-2023 Note Attestation signed by Easton Boone MD [...] Parish Age - 77 [facility]. [facility] 1945 [id number] Date of Admission - 09/10/2022 11:01 AM HPI/Hospital Course Subjective Trisha Parish is a 77 y.o. female with a past medical history significant for atrial fibrillation status post maze and left atrial appendage clip, coronary artery disease status post CABG, hypertension, stroke who presented with generalized weakness to [facility]. She presented with 2-day history of exertional shortness of breath and weakness with intermittent palpitations. She stated that her legs felt heavy. She denied any recent changes of medication and illness. Patient states that she does take Plavix daily. She denies any use of anticoagulation. At [facility], EKG demonstarted a 2:1 AV block with prolonged FL interval 266. Chest x-ray demonstrated possible trace [...] heart rate 59. Patient was transferred to [facility] for further evaluation by cardiology. On my evaluation, patient denied chest pain shortness of breath, lightheadedness, dizziness. She did state that she continued to feel weak. Patient arrived while on dopamine infusion. However, heart rate was noted to be in the 30s to 40s. Labs at [facility] suggestive of subclinical hypothyroidism, [...] Results ABG: No results found for: PHART, DLL0ZZR, PO2ART, DKS8VAE, IONCALART No results found for: PHVEN, KSE6GPI, PO2VEN, GFS5OFU, IONCALVEN CBC: Results from last 7 days [...] 3.9 4.0 CHLORIDE mm (more content not included)...[facility] 09-10-2022 Note Attestation signed by Suzi Daly [...] ESTIMATED BLOOD LOSS: 5 ml Camille Millard [facility]02-03-2023 Evaluation note* Encounter Date Diagnosis Assessment [...] ultrasound thyroid from May 2022 with Trisha. [facility] Other 11-16-2021 NotePROCEDURE REPORT Specimen #: [id number] Submitting Physician: Abner Wheeler MD SPECIMEN SUBMITTED [...] developed and its performance characteristics determined by [facility]'s [facility] Pathology and Laboratory Medicine [place] ([facility]). It has not been cleared or approved by the FDA. 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- Primary documented in this encounter [facility] HealthcareHistory general Narrative - Reported* Type Description Date Medical History CAD in [place] artery Medical History Diabetes mellitus ty pe 2, uncontrolled, without complications Medical History Chronic kidney disease, stage 3 unspecified Medical History Elevated glucose Medical History Right thyroid nodule Medical History Menopause Medical History Enlarged thyroid gland Medical History Anxiety, generalized Medical History Essential hypertension Surgical History CHOLECYSTECTOMY 2014 Surgical History LEFT BREAST MASTECTOMY Hospitalization History SEE SURGICAL HX [place] [facility] Other History general Narrative - Reported* Type Description Date Medical History CAD in level[place] artery Medical History Diabetes mellitus ty pe 2, uncontrolled, without complications Medical History Chronic kidney disease, stage 3 unspecified Medical History Elevated glucose Medical History Right thyroid nodule Medical History Menopause Medical History Enlarged thyroid gland Medical History Anxiety, generalized Medical History Essential hypertension Medical History Heart attack Surgical History CHOLECYSTECTOMY 2014 Surgical History LEFT BREAST MASTECTOMY Hospitalization History SEE SURGICAL HX [facility] [facility] [employer] Other Summary Purpose Family History No Family [...] 1 Post-nasal drip (R09 .82) [facility] Provider First Name Sanya Referring Provider Last Name Rivka Referring Provider Specialty Family [facility] cine Referred Organization [facility] Referred Address ,[place], [place],[address] Referred Provider Specialty Ear, Nose an d Throat Referral Priority Routine Additional Source Comments INFORMATION SOURCE (unrecogn ized section and content) DATE CREATED AUTHOR 05/01/2018 [facility] DATE CREATED AUTHOR AUTHOR'S ORGANIZ ATION 07/16/2018 [facility] DATE CREATED AUTHOR AUTHOR'S ORGANIZ ATION 06/23/2021 [facility] DATE CREATED AUTHOR AUTHOR'S ORGANIZ ATION 10/10/2022 [facility] DATE CREATED AUTHOR AUTHOR'S ORGANIZ ATION 03/09/2023 [facility] DATE CREATED AUTHOR AUTHOR'S ORGANIZ ATION 07/12/2023 [facility] DATE CREATED AUTHOR AUTHOR'S ORGANIZ ATION 10/20/2023 [facility] EPIC REASON FOR VISIT (unrecogniz ed section and content) Reason Comments Retinal Injection Care Teams (unrecognized sec tion and content) Intelligence Applications Relationship Specialty Start Date End Date Sanya Tineo MD [address] [place] [address] PCP - General Family Medicine [...] BE BASED ON THE PRIMARY CLINICAL RECORDS. [employer] [facility]. provides no warranty or guarantee of the accuracy or completeness of information in this document.
[2023-11-08] MEDS: DIAZEPAM 5 MG TABLET PO (07:20)
[2023-11-08] MEDS: PHENYLEPHRINE HCL 2.5% OP SOL 40 DROP/2 ML BOTTLE EYE-LEFT ×4 (07:21→07:43)
[2023-11-08] MEDS: TROPICAMIDE 1% OP SOL 300 DROP/15 ML BOTTLE EYE-LEFT ×4 (07:22→07:43)
[2023-11-08] MEDS: BESIFLOXACIN HCL 100 DROP DROPS.SUSP OP ×4 (07:23→07:43)
[2023-11-08 07:28] VITALS: BP 107/56; PULSE 64; TEMP 36.3; O2SAT 98
[2023-11-08] MEDS: APRACLONIDINE HCL 100 DROP/5 ML BOTTLE EYE-LEFT (08:43)
[2023-11-08] MEDS: HYALURONATE SODIUM 16 MG/ML SYRINGE OP (08:43)
[2023-11-08] MEDS: LIDOCAINE 2% JELLY 10 ML TOPICAL (08:44)
[2023-11-08] MEDS: PHENYLEPHRINE/KETOROLAC 1-0.3% ML VIAL 4 ML IRR (08:44)
[2023-11-08] MEDS: LIDOCAINE HCL 1% PF 20 MG/2 ML VIAL INJ (08:44)
[2023-11-08] MEDS: PROPARACAINE HCL 0.5% 300 DROP/15 ML BOTTLE EYE-LEFT (08:45)
[2023-11-08] MEDS: TETRACAINE HCL 0.5% OP SOL 80 DROP/4 ML BOTTLE EYE-LEFT (08:45)
[2023-11-08] MEDS: BETADINE POVIDONE-IODINE 5% OP SOL 30 ML BOTTLE EYE-LEFT (08:45)
[2023-11-08] MEDS: PREDNISOLONE ACETATE OP 1% SUSP 100 DROPS/5 ML 1 DROP EYE-LEFT (08:45)
[2023-11-08 08:46] VITALS: BP 122/59; PULSE 62; O2SAT 96
[2023-11-08] MEDS: CEFUROXIME SODIUM 750 MG, 0.9 % SODIUM CHLORIDE 16.3 ML OP (08:46)
[2023-11-08 08:47] VITALS: BP 118/52; PULSE 60; O2SAT 97
== END 2023-11-08 09:02 | disposition home or self-care (01) ==
LOC: SURGOUT 07:09
PROVIDERS: PCP Family Medicine; Visit Provider Ophthalmology
PROC: (CPT 66984; principal; 2023-11-08 08:10)
DX: H25.11 Age-related nuclear cataract, right eye (principal)
CPT/HCPCS: 66984; V2630

== ENCOUNTER 2023-12-02 14:37 | Emergency (ER) | payer MEDICARE, SELFPAY ==
[2023-12-02] VITALS (20 sets, daily range): BP systolic 125–130; BP diastolic 49–72; PULSE 61–87; TEMP 36.6–36.7; O2SAT 96–99; BMI 24.0
--- OUTSIDE RECORDS SUMMARY | 2023-12-02 14:44 | XMS_ITS | CCD ---
Author Organization [facility] Care Team Providers Care Band Attacher Name Role Phone WALLACE, SADI P Unavailable [...] Unavailable Sanya Tineo MD Primary Care Provider DIRK ONEILL Attending Unavailable NIMA, ZOEY Referring Unavailable DIRK ONEILL Attending Unavailable JENNIFER MORALES Attending Unavailable SANYA TINEO Referring Unavailable JENNIFER MORALES Attending Unavailable DIRK ONEILL Attending Unavailable Allergies Allergy Classification Reported Allergen(s) Allergy Type Date of Onset Reaction(s) Facility (2 sources) Meperidine Drug Allergy 06-16-2009 [facility] Repository (12 sources) Meperidine; Translations: [MEPERIDINE] Drug Allergy 09-10-2022 Unknown [facility] Repository (1 source) Meperidine Drug Allergy 02-17-2023 [facility] Repository (1 source) Meperidine Drug Allergy 08-28-2023 [...] more days for 5 May, Active calcitriol 0.67815 mg oral capsule (3 sources) Vitamin D3 [...] 07/24/2023 10/22/2023 Active FreeStyle Stephy 14 Day [place] - (10 sources) FreeStyle Stephy 14 Day [place] - as directed Active FreeStyle Stephy 14 [...] angina pectoris; 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] Onset: 3 [...] 3 Chronic Other aftercare (1 source) 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; Translations: [OTH RESIDENTIAL CURRENT DRUG THERAPY] Onset: 3 Episodic Other [...] Facility Left eye Ophthalmologic moira tmenton 08-28-2023 [facility] Radiology Study observation (narrative) [facility] Follow-Upon 05-18-2023 Follow-Up [id number] Trisha Parish 1945 F Date Provider Department Center 05/18/2023 TOÑ[facility]ON [facility] No family history on file Level of Service:66047 IN OFFICE/OUTPATIENT ESTABLISHED LOW MDM 20-29 MIN Reason for Visit and Comments: Post-op TAVR [730] [facility] Office Visiton 04-11-2023 Follow-up visit [id number] Trisha Parish 1945 F Date Provider Department Center 04/11/2023 TOÑ[facility]ON [facility] No family history on file Level of Service:74483 IN OFFICE/OUTPATIENT ESTABLISHED MOD MDM 30-39 MIN Reason for Visit and Comments: Follow-up [553225] - 1 week F/U [facility] Documentationon 04-05-2023 Documentation [id number] Trisha Parish 1945 Provider Department [place] 04/05/2023 Karlo-LINA LAMAS HVCVASENDO [facility] No family history on file Reason for Visit and Comments: Post-op [483] [facility] 30on 04-04-2023 30 Daily Case Managemen [...] PT Recommendations: OT Recommendations: New Consults: [facility] 30 The patient is Moder [...] maintained or improved Outcome: Progressing Normal [facility] 30 The patient is Moder [...] maintained or improved Outcome: Progressing Normal [facility] B-TYPE NATRIURETIC PEPTIDEon 04-04-2022 Natriuretic peptide B (Bld) [Mass/Vol] 213 pg/mL High 0-100 [facility] Comment on above: Performed By: #### L [id number] ####[facility] ([facility])[address] [place] [address] BASIC METABOLIC PANELon 03-08 Anion gap [Moles/Vol] 11 mmol/L Normal 7-20 [facility] Comment on above: Performed By: #### L [id number] #### [facility] ([facility]) [address] [place] [address] Calcium [Mass/Vol] 8.7 mg/dL Normal 8.6-10.3 [facility] Comment on above: Performed By: #### L [id number] #### [facility] ([facility]) [address] [place] [address] Chloride [Moles/Vol] 109 mmol/L High 98-107 [facility] Comment on above: Performed By: #### L [id number] #### [facility] ([facility]) [address] [place] [address] CO2 [Moles/Vol] 20 mmol/L Low 21-31 [facility] Comment on above: Performed By: #### L [id number] #### [facility] ([facility]) [address] [place] [address] Creatinine [Mass/Vol] 1.58 mg/dL High 0.60-1.20 [facility] Comment on above: Performed By: #### L [id number] #### [facility] ([facility]) [address] [place] [address] GLOMERULAR FILTRATION RATE ML/MIN/1.73 SQ M.PREDICTED 33.3 mL/min/1.73m*2 Low >60.0 [facility] Comment on above: Result Comment: [facility]???s estimated glomerular filtration rate (eGFR) [...] group of individuals. Performed By: #### L [id number] #### [facility] ([facility]) [address] [place] [address] Glucose [Mass/Vol] 140 mg/dL High 70-100 [facility] Comment on above: Performed By: #### L [id number] #### [facility] ([facility]) [address] [place] [address] Potassium [Moles/Vol] 4.1 mmol/L Normal 3.5-5.1 [facility] Comment on above: Performed By: #### L [id number] #### [facility] ([facility]) [address] [place] [address] Sodium [Moles/Vol] 136 mmol/L Normal 136-145 [facility] Comment on above: Performed By: #### L [id number] #### [facility] ([facility]) [address] [place] [address] Urea nitrogen [Mass/Vol] 33 mg/dL High 7-25 [facility] Comment on above: Performed By: #### L [id number] #### [facility] ([facility]) [address] [place] [address] UREA NITROGEN/CREATININE (MASS RATIO) IN SER/PLAS 20.9 Normal [facility] Comment on above: Performed By: #### L [id number] #### [facility] ([facility]) [address] [place] [address] Anion gap [Moles/Vol] 13 mmol/L Normal 7-20 [facility] Comment on above: Performed By: #### L [id number] ####[facility] ([facility])[address] [place] [address] Calcium [Mass/Vol] 8.9 mg/dL Normal 8.6-10.3 [facility] Comment on above: Performed By: #### L [id number] ####[facility] ([facility]ER)[address] [place] [address] Chloride [Moles/Vol] 110 mmol/L High 98-107 [facility] Comment on above: Performed By: #### L [id number] ####[facility] ([facility])[address] [place] [address] CO2 [Moles/Vol] 19 mmol/L Low 21-31 [facility] Comment on above: Performed By: #### L [id number] ####[facility] ([facility])[address] [place] [address] Creatinine [Mass/Vol] 1.61 mg/dL High 0.60-1.20 [facility] Comment on above: Performed By: #### L [id number] ####[facility] ([facility])[address] [place] [address] GLOMERULAR FILTRATION RATE ML/MIN/1.73 SQ M.PREDICTED 32.6 mL/min/1.73m*2 Low >60.0 [facility] Comment on above: Result Comment: [facility]???s estimated glomerular filtration rate (eGFR) [...] individuals. Performed By: #### L [id number] ####[facility] ([facility])[address] [place] [address] Glucose [Mass/Vol] 95 mg/dL Normal 70-100 [facility] Comment on above: Performed By: #### L [id number] ####[facility] ([facility])[address] [place] [address] Potassium [Moles/Vol] 4.2 mmol/L Normal 3.5-5.1 [facility] Comment on above: Performed By: #### L [id number] ####[facility] ([facility])[address] [place] [address] Sodium [Moles/Vol] 138 mmol/L Normal 136-145 [facility] Comment on above: Performed By: #### L [id number] ####[facility] ([facility])[address] [place] [address] Urea nitrogen [Mass/Vol] 34 mg/dL High 7-25 [facility] Comment on above: Performed By: #### L [id number] ####[facility] ([facility])[address] [place] [address] UREA NITROGEN/CREATININE (MASS RATIO) IN SER/PLAS 21.1 Normal [facility] Comment on above: Performed By: #### L [id number] ####[facility] ([facility])[address] [place] [address] CBCon 04-04-2023 Erythrocyte distribution width (RBC) [Ratio] 14.6 % Normal 11.5-15.0 [facility] Comment on above: Performed By: #### L [id number] #### [facility] ([facility]) [address] [place] [address] ERYTHROCYTE MEAN CORPUSCULAR HEMOGLOBIN CONCENTRATION (G/DL) BY AUTOMATED 32.8 g/dL Normal 32.0-35.0 [facility] Comment on above: Performed By: #### L [id number] #### [facility] [address] [place] [address] Hematocrit (Bld) [Volume fraction] 30.8 % Low 36.0-48.0 [facility] Comment on above: Performed By: #### L [id number] #### [facility] [address] [place] [address] Hemoglobin (Bld) [Mass/Vol] 10.1 g/dL Low 12.0-15.0 [facility] Comment on above: Performed By: #### L [id number] #### [facility] ([facility]) [address] [place] [address] MCH (RBC) [Entitic mass] 29.3 pg Normal 27.0-33.0 [facility] Comment on above: Performed By: #### L [id number] #### [facility] ([facility]) [address] [place] [address] MCV (RBC) [Entitic vol] 89.3 fL Normal 82.0-98.0 [facility] Comment on above: Performed By: #### L [id number] #### [facility] [address] [place] [address] PLATELETS (10*3/UL) IN BLOOD AUTOMATED COUNT 126 10*3/uL Low 150-400 [facility] Comment on above: Performed By: #### L [id number] #### [facility] [address] [place] [address] RBC (Bld) [#/Vol] 3.45 10*6/uL Low 3.80-5.00 [facility] Comment on above: Performed By: #### L [id number] #### [facility] ([facility]) [address] [place] [address] WBC (Bld) [#/Vol] 5.60 10*3/uL Normal 4.00-10.60 [facility] Comment on above: Performed By: #### L [id number] #### [facility] ([facility]ER) [address] [place] [address] DSon 04-04-2023 DS ----- ----- Attestation signed [...] Medications These medications were sent to [facility] [place] [address] [place] [address] [place] [address], [facility] [address] acetaminophen 325 mg tablet aspirin 81 mg [...] detection a (more content not included)... [facility] NURSNOTEon 04-04-2023 NURSNOTE Pt discharged home w ith by car [facility] 04-03-2023 30 The patient is Moder [...] monitored and maintained or improved Outcome: Progressing [facility] 04-03-2023 HP H&P reviewed. The [...] is brought today for the procedure. Normal [facility] MRSA/MSSA DNA NASALon 2022 MRSA DNA Negative Normal Negative [facility] Comment on above: Order Comment: [...] preclude nasal colonization. Performed By: #### L [id number] ####[facility] ([facility])[address] [place] [address] MSSA DNA Negative Normal Negative [facility] Comment on above: Order Comment: [...] preclude nasal colonization. Performed By: #### L [id number] ####[facility] [place] [address] NURSNOTEon 04-03-2023 NURSNOTE Report called to Kameron hay RN. He denies questions/concerns. Normal [facility] TYPE AND SCREENon 04-03-2023 AB SCREEN Negative Normal [facility] Comment on above: Performed By: #### L [id number] #### [facility] ([facility]) [address] [place] [address] ABO group Nom (Bld) B Normal [facility] Comment on above: Performed By: #### L [id number] #### [facility] ([facility]AKER) [address] [place] [address] RH TYPE IN BLOOD Positive Normal [facility] Comment on above: Performed By: #### L [id number] #### [facility] ([facility]ER) [address] [place] [address] Orders Onlyon 03-22-2023 Orders Only [id number] Trisha Parish 1945 F Date Provider Department Center 03/22/2023 [facility] C[facility] No family history on file Normal [facility] HPon [address] Cardiology - [facility] Subjective Trisha Parish is a 78 [...] September 2022 she was admitted to [facility] with weakness. She was found to [...] (Co (more content not included)... Normal [facility] Office Visiton 2023 Follow-up visit [id number] Trisha Parish E 1945 F Date Provider Department Center 2023 Carla-TOÑO BALBUENA [facility] No family history on file Level of Service:32813 IN OFFICE/OUTPATIENT ESTABLISHED HIGH MDM 40-54 MIN [facility] ANEDale 02-23-2023 ANES ----- ----- Attestation [...] 1030 Procedure: TRANSESOPHAGEAL ECHO (ELENA) Location: [facility] Vascular Lab [...] blood products. Additional Equipment Requests Normal [facility] HPon 02-23-2023 ----- ----- Attestation signed by [...] are no changes to the H&P. [facility] NURSNOTEon 02-23-2023 NURSNOTE Pt performed and pas sed bedside swallow study test. RN educated pt on d/c instructions. RN encouraged pt to voice any questions or concerns. Pt verbalizes no questions or concerns at this time. Pt was wheeled off of unit with all of belongings. [facility] HPon 02-21-2023 Cardiology Clinic No te [...] Never Update: 02/21/2023 She was hospitalized at [facility] for 3 days after presenting with dizziness [...] elevated She was hospitalized 02/04-02/07/23 at [facility] and underwent coronary angiography and right [...] 02/06 (more content not included)... Normal [facility] Office Visiton 02-21-2023 Follow-up visit [id number] Trisha Parish 1945 F Date Provider Department Center 02/21/2023 [address]808-EIVGBJMOPTAYLOR PIÑA CARD [facility] No family history on file Level of Service:51971 IN OFFICE/OUTPATIENT ESTABLISHED MOD MDM 30-39 MIN Reason for Visit and Comments: Follow-up [059877] - Pt discharge from hospital 02/20/23 for high potassium , dizziness [facility] Basic Metabolic Panelon - Anion gap [Moles/Vol] 10.7 mmol/L Normal 6.0-15.0 [facility] Comment on above: Performed By: #### B MP ####[facility] [place] [address] [facility] Calcium [Mass/Vol] 8.4 mg/dL Low 8.6-10.3 [facility] Comment on above: Performed By: #### B MP ####[place] [address] [place] [id number] [facility] Chloride [Moles/Vol] 109 mmol/L High 98-107 [facility] Comment on above: Performed By: #### B MP ####[place] [address] [place] [id number] [facility] CO2 [Moles/Vol] 22.7 mmol/L Normal 21.0-31.0 [facility] Comment on above: Performed By: #### B MP ####[place] [address] [place] [id number] [facility] Creatinine [Mass/Vol] 1.68 mg/dL High 0.60-1.20 [facility] Comment on above: Performed By: #### B MP ####[place] [id number] [facility] Creatinine Clr Calc Pharmacy 24.22 Normal [facility] Comment on above: Result Comment: PERF ORMED BY: [facility] [address] [place] [id number] PATHOLOGIST CELL TOWER CLIMBER MELISSA QUINN M.D. Performed By: #### B MP ####[place] [id number] [facility] GFR/1.73 sq M.predicted MDRD (S/P/Bld) [Vol rate/Area] 31.134 mL/min/{1.73_m2} Normal [facility] Comment on above: Performed By: #### B MP ####[place] [id number] [facility] Glucose [Mass/Vol] 94 mg/dL Normal 70-100 [facility] Comment on above: Result Comment: [place] Glucose Reference Range is dependent on time and content of last meal. Glucose of more than 200 mg/dL in a nonstressed, ambulatory subject supports the diagnosis of Diabetes Mellitus. ADA recommended reference range Performed By: #### B MP ####[facility] [id number] [place] [address] [facility] Potassium [Moles/Vol] 4.4 mmol/L Normal 3.5-5.1 [facility] Comment on above: Performed By: #### B MP ####[facility] [place] [address] [facility] Sodium [Moles/Vol] 138 mmol/L Normal 136-145 [facility] Comment on above: Performed By: #### B MP ####[facility] [id number] [place] [address] [facility] Urea nitrogen [Mass/Vol] 34 mg/dL High 7-25 [facility] Comment on above: Performed By: #### B MP ####[facility] [place] [id number] [facility] Glucose Poct Glucometerson 0 02-20-2023 Glucose [Mass/Vol] 92 mg/dL Normal [facility] Comment on above: Result Comment: [facility] Glucose Reference Range is dependent on time and content of last meal. Glucose of more than 200 mg/dL in a nonstressed, ambulatory subject supports the diagnosis of Diabetes Mellitus. PERFORMED BY: [place] [address] PATHOLOGIST CELL TOWER CLIMBER MELISSA QUINN M.D. Performed By: #### G LORENZO ####Point of Care testing, Basic Metabolic Panelon 07- Anion gap [Moles/Vol] 9.8 mmol/L Normal 6.0-15.0 [facility] Comment on above: Performed By: #### B MP #### [facility] [address] [place] [id number] [place] Calcium [Mass/Vol] 8.4 mg/dL Low 8.6-10.3 [facility] Comment on above: Performed By: #### B MP #### [facility] [address] [place] [id number] [place] Chloride [Moles/Vol] 108 mmol/L High 98-107 [facility] Comment on above: Performed By: #### B MP #### [facility] [address] CO2 [Moles/Vol] 25.3 mmol/L Normal 21.0-31.0 [facility] Comment on above: Performed By: #### B MP #### [facility] [address] Creatinine [Mass/Vol] 1.62 mg/dL High 0.60-1.20 [facility] Comment on above: Performed By: #### B MP #### [facility] [address] [place] [address] [place] Creatinine Clr Calc Pharmacy 25.11 Normal [facility] Comment on above: Result Comment: PERF ORMED BY: [place] [address] PATHOLOGIST CELL TOWER CLIMBER MELISSA QUINN M.D. Performed By: #### B MP #### [address] GFR/1.73 sq M.predicted MDRD (S/P/Bld) [Vol rate/Area] 32.523 mL/min/{1.73_m2} Normal [facility] Comment on above: Performed By: #### B MP #### [address] Glucose [Mass/Vol] 91 mg/dL Normal 70-100 [facility] Comment on above: Result Comment: [place] Glucose Reference Range is dependent on time and content of last meal. Glucose of more than 200 mg/dL in a nonstressed, ambulatory subject supports the diagnosis of Diabetes Mellitus. ADA recommended reference range Performed By: #### B MP #### [place] [address] [place] Potassium [Moles/Vol] 4.1 mmol/L Normal 3.5-5.1 [facility] Comment on above: Performed By: #### B MP #### [place] [address] [place] Sodium [Moles/Vol] 139 mmol/L Normal 136-145 [facility] Comment on above: Performed By: #### B MP #### [facility] [address] [place] [address] [place] Urea nitrogen [Mass/Vol] 34 mg/dL High 02-27 [facility] Comment on above: Performed By: #### B MP #### [facility] [address] [place] [address] [place] Glucose Poct Glucometerson 0 02-19-2023 Glucose [Mass/Vol] 143 mg/dL Normal [facility] Comment on above: Result Comment: [place] om Glucose Reference Range is dependent on time and content of last meal. Glucose of more than 200 mg/dL in a nonstressed, ambulatory subject supports the diagnosis of Diabetes Mellitus. PERFORMED BY: [place] [address] PATHOLOGIST CELL TOWER CLIMBER MELISSA QUINN M.D. Performed By: #### G LULS #### Point of Care testing , Glucose [Mass/Vol] 101 mg/dL Normal [facility] Comment on above: Result Comment: [place] Glucose Reference Range is dependent on time and content of last meal. Glucose of more than 200 mg/dL in a nonstressed, ambulatory subject supports the diagnosis of Diabetes Mellitus. PERFORMED BY: [place] [address] PATHOLOGIST CELL TOWER CLIMBER MELISSA QUINN M.D. Performed By: #### G LULS #### Point of Care testing , US renal BIon 02-19-2023 US renal BI [facility] [place] [address] [place] [address] Ultrasound Report Signed Patient: Trisha Parish MR#: [id number] : 1945 Acct:[id number] Age/Sex: 77 / F ADM Date: 02/17/23 Loc: Room: [address] [place] [address] Type: ADM IN Attending Dr: Mikel Mir MD Ordering Provider: Mikel Mir MD Date of Service: 02/19/23 US/US renal BI: JASMIN r/o Ambia or obstruction Copies to: Mikel Mir MD [...] Quintanilla Jr., D.O.02/19/2023 3:58 PM Dictation Location: [place] [address] Tech: Jenna Corado Transcribed By: [facility] 02/19/23 155 Dictated By: Baldo Quintanilla Jr, DO 02/19/23 155 Signed By: 02/19/231557 Normal [facility] Coagulation Profileon 2022 aPTT Coag (Bld) [Time] 31.5 s Normal 25.1-36.5 [facility] Comment on above: Result Comment: PERF ORMED BY: [facility] [address] [facility] [address] PATHOLOGIST CELL TOWER CLIMBER MELISSA QUINN M.D. Performed By: #### C MP, MG, PP, CBCNO ####[place] [address] [place] [id number] [facility] INR Coag (PPP) [Relative time] 1.3 {INR} Normal [facility] Comment on above: Result Comment: INR Therapeutic [...] By: #### C MP, MG, PP, CBCNO ####[facility] [address] [place] [id number] [facility] PT Coag (PPP) [Time] 15.2 s High 9.0-12.9 [facility] Comment on above: Performed By: #### C MP, MG, PP, CBCNO ####[place] [address] [place] [address] [facility] Comprehensive Metabolic Pane otto 02-18-2023 Albumin [Mass/Vol] 3.5 g/dL Normal 3.5-5.7 [facility] Comment on above: Performed By: #### C MP, MG, PP, CBCNO ####[address] Albumin/Globulin [Mass ratio] 1.3 {ratio} Normal [facility] Comment on above: Performed By: #### C MP, MG, PP, CBCNO ####[address] ALP [Catalytic activity/Vol] 83 U/L Normal 34-104 [facility] Comment on above: Performed By: #### C MP, MG, PP, CBCNO ####[address] ALT [Catalytic activity/Vol] 13 U/L Normal 7-52 [facility] Comment on above: Performed By: #### C MP, MG, PP, CBCNO ####[address] Anion gap [Moles/Vol] 11.0 mmol/L Normal 6.0-15.0 [facility] Comment on above: Performed By: #### C MP, MG, PP, CBCNO ####[address] AST [Catalytic activity/Vol] 16 U/L Normal 13-39 [facility] Comment on above: Performed By: #### C MP, MG, PP, CBCNO ####[address] Bilirubin [Mass/Vol] 0.7 mg/dL Normal 0.3-1.0 [facility] Comment on above: Performed By: #### C MP, MG, PP, CBCNO ####[address] Calcium [Mass/Vol] 8.4 mg/dL Low 8.6-10.3 [facility] Comment on above: Performed By: #### C MP, MG, PP, CBCNO ####[place] [id number] [place] [id number] [facility] Chloride [Moles/Vol] 108 mmol/L High 98-107 [facility] Comment on above: Performed By: #### C MP, MG, PP, CBCNO ####[place] [id number] [facility] CO2 [Moles/Vol] 24.4 mmol/L Normal 21.0-31.0 [facility] Comment on above: Performed By: #### C MP, MG, PP, CBCNO ####[place] [id number] [facility] Creatinine [Mass/Vol] 1.91 mg/dL High 0.60-1.20 [facility] Comment on above: Performed By: #### C MP, MG, PP, CBCNO ####[address] Creatinine Clr Calc Pharmacy 21.30 [facility] Comment on above: Performed By: #### C MP, MG, PP, CBCNO ####[place] [id number] [facility] GFR/1.73 sq M.predicted MDRD (S/P/Bld) [Vol rate/Area] 26.691 mL/min/{1.73_m2} [facility] Comment on above: Performed By: #### C MP, MG, PP, CBCNO ####[place] [id number] [facility] Globulin (S) [Mass/Vol] 2.7 g/dL [facility] Comment on above: Performed By: #### C MP, MG, PP, CBCNO ####[place] [id number] [facility] Glucose [Mass/Vol] 92 mg/dL Normal 70-100 [facility] Comment on above: Result Comment: [place] om Glucose Reference Range is dependent on time and content of last meal. Glucose of more than 200 mg/dL in a nonstressed, ambulatory subject supports the diagnosis of Diabetes Mellitus. ADA recommended reference range Performed By: #### C MP, MG, PP, CBCNO ####[facility] [id number] Potassium [Moles/Vol] 4.4 mmol/L Normal 3.5-5.1 [facility] Comment on above: Performed By: #### C MP, MG, PP, CBCNO ####[place] [id number] Protein [Mass/Vol] 6.2 g/dL Low 6.4-8.9 [facility] Comment on above: Performed By: #### C MP, MG, PP, CBCNO ####[address] Sodium [Moles/Vol] 139 mmol/L Normal 136-145 [facility] Comment on above: Performed By: #### C MP, MG, PP, CBCNO ####[place] [id number] Urea nitrogen [Mass/Vol] 35 mg/dL High 7-25 [facility] Comment on above: Performed By: #### C MP, MG, PP, CBCNO ####[place] [id number] Dipstick and Microscopicon 0 02-18-2023 Appearance (U) Clear Normal Clear [facility] Comment on above: Order Comment: Name Collection Type:: Clean-Voided Midstream Performed By: #### A DDONUAPLUS, CUU #### [facility] [address] [place] [address] [place] Bacteria,Urine None Seen Normal None Seen [facility] Comment on above: Order Comment: Name Collection Type:: Clean-Voided Midstream Performed By: #### A DDONUAPLUS, CUU #### [facility] [address] [place] [address] [place] Bilirubin,Urine Negative Normal Negative [facility] Comment on above: Order Comment: Name Collection Type:: Clean-Voided Midstream Performed By: #### A DDONUAPLUS, CUU #### [facility] [address] [place] [address] [place] Color (U) Yellow Normal Yellow [facility] Comment on above: Order Comment: Name Collection Type:: Clean-Voided Midstream Performed By: #### A DDONUAPLUS, CUU #### [address] Glucose Ql (U) Normal Normal Normal [facility] Comment on above: Order Comment: Name Collection Type:: Clean-Voided Midstream Performed By: #### A DDONUAPLUS, CUU #### [address] Hyaline Casts,Urine None Seen Normal 0-8 [facility] Comment on above: Order Comment: Name Collection Type:: Clean-Voided Midstream Result Comment: PERF ORMED BY: [place] [address] PATHOLOGIST CELL TOWER CLIMBER MELISSA QUINN M.D. Performed By: #### A DDONUAPLUS, CUU #### [address] Ketones Ql (U) Negative Normal Negative [facility] Comment on above: Order Comment: Name Collection Type:: Clean-Voided Midstream Performed By: #### A DDONUAPLUS, CUU #### [address] Leukocyte esterase Test strip Ql (U) 3+ High Negative [facility] Comment on above: Order Comment: Name Collection Type:: Clean-Voided Midstream Performed By: #### A DDONUAPLUS, CUU #### [place] [address] [place] Nitrite,Urine Negative Normal Negative [facility] Comment on above: Order Comment: Name Collection Type:: Clean-Voided Midstream Performed By: #### A DDONUAPLUS, CUU #### [address] Occult Blood,Urine Negative Normal Negative [facility] Comment on above: Order Comment: Name Collection Type:: Clean-Voided Midstream Result Comment: PERF ORMED BY: [place] [address] PATHOLOGIST CELL TOWER CLIMBER MELISSA QUINN M.D. Performed By: #### A DDONUAPLUS, CUU #### [address] pH (U) 7.5 [pH] Normal 5.0-9.0 [facility] Comment on above: Order Comment: Name Collection Type:: Clean-Voided Midstream Performed By: #### A DDONUAPLUS, CUU #### [address] Protein,Urine Negative Normal Negative [facility] Comment on above: Order Comment: Name Collection Type:: Clean-Voided Midstream Performed By: #### A DDONUAPLUS, CUU #### [address] RBC LM.HPF (Urine sed) [#/Area] 0 /[HPF] Normal 0-4 [facility] Comment on above: Order Comment: Name Collection Type:: Clean-Voided Midstream Performed By: #### A DDONUAPLUS, CUU #### [address] Specificy [place],Urine 1.006 Normal 1.001-1.030 [facility] Comment on above: Order Comment: Name Collection Type:: Clean-Voided Midstream Performed By: #### A DDONUAPLUS, CUU #### [place] [address] [place] Squamous Epithelial Cell,Urine None Seen Normal 0-2 [facility] Comment on above: Order Comment: Name Collection Type:: Clean-Voided Midstream Performed By: #### A DDONUAPLUS, CUU #### [address] Urobilinogen,Urine Normal Normal Normal [facility] Comment on above: Order Comment: Name Collection Type:: Clean-Voided Midstream Performed By: #### A DDONUAPLUS, CUU #### [facility] [address] WBC,Urine 5-9 High 0-4 [facility] Comment on above: Order Comment: Name Collection Type:: Clean-Voided Midstream Performed By: #### A DDONUAPLUS, CUU #### [facility] [address] [place] [address] ECG 12 lead ECGon 02-18-2023 ECG 12 lead ECG [facility] [place] [address] [place] [address] Electrocardiograph Report Signed Patient: Trisha Parish MR#: [id number] : 1945 Acct:[id number] Age/Sex: 77 / F ADM Date: 02/17/23 Loc: Room: [address] [place] [address] Type: ADM IN Attending Dr: Kevin Mejia [...] Nessa Abdi MD 0 02/18/23 1047 Normal [facility] Glucose Poct Glucometerson 0 02-18-2023 Glucose [Mass/Vol] 94 mg/dL Normal [facility] Comment on above: Result Comment: [place] Glucose Reference Range is dependent on time and content of last meal. Glucose of more than 200 mg/dL in a nonstressed, ambulatory subject supports the diagnosis of Diabetes Mellitus. PERFORMED BY: [facility] [address] [place] [address] PATHOLOGIST CELL TOWER CLIMBER MELISSA QUINN M.D. Performed By: #### G LULS #### Point of Care testing , Glucose [Mass/Vol] 194 mg/dL Normal [facility] Comment on above: Result Comment: [facility] Glucose Reference Range is dependent on time and content of last meal. Glucose of more than 200 mg/dL in a nonstressed, ambulatory subject supports the diagnosis of Diabetes Mellitus. PERFORMED BY: [place] [address] PATHOLOGIST CELL TOWER CLIMBER MELISSA QUINN M.D. Performed By: #### G LULS #### Point of Care testing , Hemogram CBC Without Diffon 02-18-2023 Erythrocyte distribution width (RBC) [Ratio] 14.4 % Normal 11.9-15.3 [facility] Comment on above: Performed By: #### C MP, MG, PP, CBCNO #### [facility] [address] [place] [address] Hematocrit (Bld) [Volume fraction] 32.7 % Low 34.0-46.4 [facility] Comment on above: Performed By: #### C MP, MG, PP, CBCNO #### [facility] [address] [place] [address] [place] Hemoglobin (Bld) [Mass/Vol] 10.8 g/dL Low 11.8-15.4 [facility] Comment on above: Performed By: #### C MP, MG, PP, CBCNO #### [facility] [address] [place] [address] [place] MCH (RBC) [Entitic mass] 28.8 pg Normal 24.7-34.3 [facility] Comment on above: Performed By: #### C MP, MG, PP, CBCNO #### [facility] [address] [place] [address] [place] MCV (RBC) [Entitic vol] 87.0 fL Normal 80-100 [facility] Comment on above: Performed By: #### C MP, MG, PP, CBCNO #### [address] Mean Corpuscular HGB Conc 33.1 g/dL Normal 32.0-35.0 [facility] Comment on above: Performed By: #### C MP, MG, PP, CBCNO #### [address] Platelet mean volume (Bld) [Entitic vol] 10.2 fL Normal 6.3-10.7 [facility] Comment on above: Result Comment: PERF ORMED BY: [place] [address] PATHOLOGIST CELL TOWER CLIMBER MELISSA QUINN M.D. Performed By: #### C MP, MG, PP, CBCNO #### [address] Platelets (Bld) [#/Vol] 185 10*3/uL Normal 150-450 [facility] Comment on above: Performed By: #### C MP, MG, PP, CBCNO #### [address] RBC (Bld) [#/Vol] 3.76 10*6/uL Normal 3.60-5.00 [facility] Comment on above: Performed By: #### C MP, MG, PP, CBCNO #### [address] WBC (Bld) [#/Vol] 7.2 10*3/uL Normal 3.8-11.6 [facility] Comment on above: Performed By: #### C MP, MG, PP, CBCNO #### [address] Magnesiumon 02-18-2023 Magnesium [Mass/Vol] 1.9 mg/dL Normal 1.9-2.7 [facility] Comment on above: Result Comment: PERF ORMED BY: [place] [address] PATHOLOGIST CELL TOWER CLIMBER MELISSA QUINN M.D. Performed By: #### C MP, MG, PP, CBCNO ####[facility] [id number] Troponin I High Sensitivityo n 02-18-2023 Troponin I High Sensitivity 55.0 pg/mL Off scale high 0.0-15.0 [facility] Comment on above: Result Comment: Crit ical Result : Called to and read back by: ROYAL DAILY at: 02/18/2023 07:39:39 by:[id number] PERFORMED BY: [place] [address] PATHOLOGIST CELL TOWER CLIMBER MELISSA QUINN M.D. Performed By: #### H S TROP #### [facility] [address] [place] [address] Urine Cultureon 02-18-2023 Bacteria identified Cx Nom (U) >100,000 colonies/ml mixed bacterial skin contaminants 2 Days PERFORMED BY: [place] [address] PATHOLOGIST CELL TOWER CLIMBER MELISSA QUINN M.D. Normal [facility] Comment on above: Performed By: #### A DDONUAPLUS, CUU #### [place] [id number] [facility] Telephoneon 02-16-2023 Telephone [phone] Trisha Parish 1945 F Date Provider Department Center 02/16/2023 [facility] VAS LAB CT Heart[facility]AS No family history on file Normal [facility] Orders Onlyon 02-09-2023 Orders Only [id number] Trisha Parish 1945 F Date Provider Department [place] 02/09/2023 [facility] CARD [facility] No family history on file Normal [facility] 30on 02-07-2023 30 The patient is Moder ately Stable - Low risk of patient condition declining or worsening The patient's goals for the shift include comfort The clinical goals for the shift include VSS Over the shift, the patient did not make progress toward the following goals. Barriers to progression include . Recommendations to address these barriers include . Normal [facility] 30 The patient is Moder ately Stable - Low risk of patient condition declining or worsening The patient's goals for the shift include comfort, rest The clinical goals for the shift include stable Over the shift, the patient did not make progress toward the following goals. Barriers to progression include . Recommendations to address these barriers include . Normal [facility] BASIC METABOLIC PANELon 07-0 Anion gap [Moles/Vol] 10 mmol/L Normal 7-20 [facility] Comment on above: Performed By: #### L [id number] ####[facility] ([facility]AKER)[address] [place] [address] Calcium [Mass/Vol] 8.6 mg/dL Normal 8.6-10.3 [facility] Comment on above: Performed By: #### L [id number] ####[facility] (BEAKER)[address] [place] [address] Chloride [Moles/Vol] 109 mmol/L High 98-107 [facility] Comment on above: Performed By: #### L [id number] ####[facility] (BEAKER)[address] [place] [address] CO2 [Moles/Vol] 25 mmol/L Normal 21- [facility] Comment on above: Performed By: #### L [id number] ####[facility] ([facility]ER)[address] [place] [address] Creatinine [Mass/Vol] 1.40 mg/dL High 0.60-1.20 [facility] Comment on above: Performed By: #### L [id number] ####[facility] ([facility]ER)[address] [place] [address] GLOMERULAR FILTRATION RATE ML/MIN/1.73 SQ M.PREDICTED 38.7 mL/min/1.73m*2 Low >60.0 [facility] Comment on above: Result Comment: [facility]???s estimated glomerular filtration rate (eGFR) [...] individuals. Performed By: #### L [id number] ####[facility] ([facility])[address] [place] [address] Glucose [Mass/Vol] 115 mg/dL High 70-100 [facility] Comment on above: Performed By: #### L [id number] ####[facility] ([facility])[address] [place] [address] Potassium [Moles/Vol] 3.9 mmol/L Normal 3.5-5.1 [facility] Comment on above: Performed By: #### L [id number] ####[facility] ([facility])[address] [place] [address] Sodium [Moles/Vol] 140 mmol/L Normal 136-145 [facility] Comment on above: Performed By: #### L [id number] ####[facility] ([facility])[address] [place] [address] Urea nitrogen [Mass/Vol] 32 mg/dL High 7-25 [facility] Comment on above: Performed By: #### L [id number] ####[facility] ([facility])[address] [place] [address] UREA NITROGEN/CREATININE (MASS RATIO) IN SER/PLAS 22.9 Normal [facility] Comment on above: Performed By: #### L [id number] ####[facility] ([facility])[address] [place] [address] MAGNESIUMon 02-07-2023 Magnesium [Mass/Vol] 2.0 mg/dL Normal 1.9-2.7 [facility] Comment on above: Performed By: #### L [id number] #### [facility] [address] [place] [address] BASIC METABOLIC PANELon 07-0 Anion gap [Moles/Vol] 10 mmol/L Normal 7-20 [facility] Comment on above: Performed By: #### L [id number] #### [facility] ([facility]) [address] [place] [address] Calcium [Mass/Vol] 8.6 mg/dL Normal 8.6-10.3 [facility] Comment on above: Performed By: #### L [id number] #### [facility] ([facility] [address] [place] [address] Chloride [Moles/Vol] 109 mmol/L High 98-107 [facility] Comment on above: Performed By: #### L [id number] #### [facility] ([facility] [address] [place] [address] CO2 [Moles/Vol] 25 mmol/L Normal 21-31 [facility] Comment on above: Performed By: #### L [id number] #### [facility] ([facility]) [address] [place] [address] Creatinine [Mass/Vol] 1.32 mg/dL High 0.60-1.20 [facility] Comment on above: Performed By: #### L [id number] #### [facility] ([facility]) [address] [place] [address] GLOMERULAR FILTRATION RATE ML/MIN/1.73 SQ M.PREDICTED 41.6 mL/min/1.73m*2 Low >60.0 [facility] Comment on above: Result Comment: [facility]???s estimated glomerular filtration rate (eGFR) [...] group of individuals. Performed By: #### L [id number] #### [facility] ([facility]) [address] [place] [address] Glucose [Mass/Vol] 142 mg/dL High 70-100 [facility] Comment on above: Performed By: #### L [id number] #### [facility] ([facility]) [address] [place] [address] Potassium [Moles/Vol] 3.8 mmol/L Normal 3.5-5.1 [facility] Comment on above: Performed By: #### L [id number] #### [facility] ([facility]) [address] [place] [address] Sodium [Moles/Vol] 140 mmol/L Normal 136-145 [facility] Comment on above: Performed By: #### L [id number] #### [facility] ([facility]) [address] [place] [address] Urea nitrogen [Mass/Vol] 31 mg/dL High 7-25 [facility] Comment on above: Performed By: #### L [id number] #### [facility] ([facility]) [address] [place] [address] UREA NITROGEN/CREATININE (MASS RATIO) IN SER/PLAS 23.5 Normal [facility] Comment on above: Performed By: #### L [id number] #### [facility] ([facility]) [address] [place] [address] CBCon 02-06-2023 Erythrocyte distribution width (RBC) [Ratio] 14.1 % Normal 11.5-15.0 [facility] Comment on above: Performed By: #### L [id number] #### [facility] ([facility]) [address] [facility] [place] [address] ERYTHROCYTE MEAN CORPUSCULAR HEMOGLOBIN CONCENTRATION (G/DL) BY AUTOMATED 33.6 g/dL Normal 32.0-35.0 [facility] Comment on above: Performed By: #### L [id number] #### [facility] ([facility]) [address] [place] [address] Hematocrit (Bld) [Volume fraction] 33.3 % Low 36.0-48.0 [facility] Comment on above: Performed By: #### L [id number] #### [facility] ([facility]) [address] [place] [address] Hemoglobin (Bld) [Mass/Vol] 11.2 g/dL Low 12.0-15.0 [facility] Comment on above: Performed By: #### L [id number] #### [facility] ([facility]) [address] [place] [address] MCH (RBC) [Entitic mass] 29.3 pg Normal 27.0-33.0 [facility] Comment on above: Performed By: #### L [id number] #### [facility] ([facility]) [address] [place] [address] MCV (RBC) [Entitic vol] 87.2 fL Normal 82.0-98.0 [facility] Comment on above: Performed By: #### L [id number] #### [facility] ([facility]) [address] [place] [address] PLATELETS (10*3/UL) IN BLOOD AUTOMATED COUNT 152 10*3/uL Normal 150-400 [facility] Comment on above: Performed By: #### L [id number] #### [facility] ([facility]) [address] [place] [address] RBC (Bld) [#/Vol] 3.82 10*6/uL Normal 3.80-5.00 [facility] Comment on above: Performed By: #### L [id number] #### [facility] ([facility]) [address] [place] [address] WBC (Bld) [#/Vol] 6.44 10*3/uL Normal 4.00-10.60 [facility] Comment on above: Performed By: #### L [id number] #### [facility] ([facility]) [address] [place] [address] CONSULTon 02-06-2023 CONSULT Inpatient consult to Cardiothoracic [...] per patient for which 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 Soto- medications were adjusted and pacemaker [...] not (more content not included)... Normal [facility] MAGNESIUMon 02-06-2023 Magnesium [Mass/Vol] 1.7 mg/dL Low 1.9-2.7 [facility] Comment on above: Performed By: #### L [id number] #### [facility] ([facility]) [address] [place] [address] 30on 02-05-2023 30 The patient is Moder [...] maintained or improved Outcome: Progressing Normal [facility] 30 Daily Case Managemen t [...] Recommendations: OT Recommendations: New Consults: Normal [facility] 30 Problem: Pain - Adul [...] Flowsheets (Taken 02/05/2023745) Free from fall injury: [place] fall precautions as indicated by assessment Educate [...] for the shift include vss Normal [facility] 30 The patient is Moder ately Stable - Low risk of patient condition declining or worsening The patient's goals for the shift include comfort The clinical goals for the shift include vss Normal [facility] BASIC METABOLIC PANELon 07-0 Anion gap [Moles/Vol] 12 mmol/L Normal - [facility] Comment on above: Performed By: #### L [id number] #### [facility] ([facility]) [address] [place] [address] Calcium [Mass/Vol] 8.8 mg/dL Normal 8.6-10.3 [facility] Comment on above: Performed By: #### L [id number] #### [facility] ([facility]) [address] [place] [address] Chloride [Moles/Vol] 107 mmol/L Normal 98-107 [facility] Comment on above: Performed By: #### L [id number] #### [facility] ([facility]) [address] [place] [address] CO2 [Moles/Vol] 25 mmol/L Normal 21-31 [facility] Comment on above: Performed By: #### L [id number] #### [facility] ([facility]) [address] [place] [address] Creatinine [Mass/Vol] 1.18 mg/dL Normal 0.60-1.20 [facility] Comment on above: Performed By: #### L [id number] #### [facility] ([facility]) [address] [place] [address] GLOMERULAR FILTRATION RATE ML/MIN/1.73 SQ M.PREDICTED 47.6 mL/min/1.73m*2 Low >60.0 [facility] Comment on above: Result Comment: [facility]???s estimated glomerular filtration rate (eGFR) [...] Performed By: #### L [id number] #### [facility] ([facility]) [address] [place] [address] Glucose [Mass/Vol] 99 mg/dL Normal 70-100 [facility] Comment on above: Performed By: #### L [id number] #### [facility] (BEAKER) [address] [place] [address] Potassium [Moles/Vol] 3.8 mmol/L Normal 3.5-5.1 [facility] Comment on above: Performed By: #### L [id number] #### [facility] ([facility]) [address] [place] [address] Sodium [Moles/Vol] 140 mmol/L Normal 136-145 [facility] Comment on above: Performed By: #### L [id number] #### [facility] ([facility]) [address] [place] [address] Urea nitrogen [Mass/Vol] 28 mg/dL High 7-25 [facility] Comment on above: Performed By: #### L [id number] #### [facility] ([facility]) [address] [place] [address] UREA NITROGEN/CREATININE (MASS RATIO) IN SER/PLAS 23.7 Normal [facility] Comment on above: Performed By: #### L [id number] #### [facility] ([facility]) [address] [place] [address] Anion gap [Moles/Vol] 12 mmol/L Normal 7-20 [facility] Comment on above: Performed By: #### L [id number] #### [facility] ([facility]) [address] [place] [address] Calcium [Mass/Vol] 9.0 mg/dL Normal 8.6-10.3 [facility] Comment on above: Performed By: #### L [id number] #### [facility] [address] [place] [address] Chloride [Moles/Vol] 107 mmol/L Normal 98-107 [facility] Comment on above: Performed By: #### L [id number] #### [facility] [address] [place], [place] [address] CO2 [Moles/Vol] 23 mmol/L Normal 21-31 [facility] Comment on above: Performed By: #### L [id number] #### [facility] [address] [place] [address] Creatinine [Mass/Vol] 1.12 mg/dL Normal 0.60-1.20 [facility] Comment on above: Performed By: #### L [id number] #### [facility] ([facility]) [address] [place] [address] GLOMERULAR FILTRATION RATE ML/MIN/1.73 SQ M.PREDICTED 50.6 mL/min/1.73m*2 Low >60.0 [facility] Comment on above: Result Comment: [facility]???s estimated glomerular filtration rate (eGFR) [...] Performed By: #### L [id number] #### [facility] ([facility]) [address] [place] [address] Glucose [Mass/Vol] 121 mg/dL High 70-100 [facility] Comment on above: Performed By: #### L [id number] #### [facility] ([facility]) [address] [place] [address] Potassium [Moles/Vol] 3.8 mmol/L Normal 3.5-5.1 [facility] Comment on above: Performed By: #### L [id number] #### [facility] ([facility]) [address] [place] [address] Sodium [Moles/Vol] 138 mmol/L Normal 136-145 [facility] Comment on above: Performed By: #### L [id number] #### [facility] ([facility]) [address] [place] [address] Urea nitrogen [Mass/Vol] 28 mg/dL High 7-25 [facility] Comment on above: Performed By: #### L [id number] #### [facility] ([facility]) [address] [place] [address] UREA NITROGEN/CREATININE (MASS RATIO) IN SER/PLAS 25.0 Normal [facility] Comment on above: Performed By: #### L [id number] #### [facility] ([facility]) [address] [place] [address] CBC WITH AUTO DIFFERENTIALon 02-05-2023 Basophils (Bld) [#/Vol] 0.03 10*3/uL Normal 0.00-0.20 [facility] Comment on above: Performed By: #### L [id number] #### [facility] ([facility]) [address] [place] [address] Basophils/100 WBC (Bld) 0.4 % Normal 0.0-1.0 [facility] Comment on above: Performed By: #### L [id number] #### [facility] ([facility]) [address] [place] [address] Eosinophils (Bld) [#/Vol] 0.65 10*3/uL High 0.00-0.50 [facility] Comment on above: Performed By: #### L [id number] #### [facility] ([facility]) [address] [place] [address] Eosinophils/100 WBC (Bld) 8.6 % High 0.0-6.0 [facility] Comment on above: Performed By: #### L [id number] #### [facility] ([facility]) [address] [place] [address] Erythrocyte distribution width (RBC) [Ratio] 14.1 % Normal 11.5-15.0 [facility] Comment on above: Performed By: #### L [id number] #### [facility] ([facility] [address] [facility] [place] [address] ERYTHROCYTE MEAN CORPUSCULAR HEMOGLOBIN CONCENTRATION (G/DL) BY AUTOMATED 33.1 g/dL Normal 32.0-35.0 [facility] Comment on above: Performed By: #### L [id number] #### [facility] ([facility]) [address] [place] [address] Hematocrit (Bld) [Volume fraction] 37.5 % Normal 36.0-48.0 [facility] Comment on above: Performed By: #### L [id number] #### [facility] ([facility]) [address] [place] [address] Hemoglobin (Bld) [Mass/Vol] 12.4 g/dL Normal 12.0-15.0 [facility] Comment on above: Performed By: #### L [id number] #### [facility] ([facility]) [address] [place] [address] Immature granulocytes (Bld) [#/Vol] 0.02 10*3/uL Normal 0.00-0.20 [facility] Comment on above: Performed By: #### L [id number] #### [facility] ([facility]) [address] [place] [address] Immature granulocytes/100 WBC (Bld) 0.3 % Normal 0.0-1.0 [facility] Comment on above: Performed By: #### L [id number] #### [facility] ([facility]) [address] [place] [address] Lymphocytes (Bld) [#/Vol] 1.46 10*3/uL Normal 1.20-4.00 [facility] Comment on above: Performed By: #### L [id number] #### [facility] ([facility]) [address] [place] [address] Lymphocytes/100 WBC (Bld) 19.3 % Low 20.0-45.0 [facility] Comment on above: Performed By: #### L [id number] #### [facility] ([facility]) [address] [place] [address] MCH (RBC) [Entitic mass] 28.8 pg Normal 27.0-33.0 [facility] Comment on above: Performed By: #### L [id number] #### [facility] ([facility]) [address] [place] [address] MCV (RBC) [Entitic vol] 87.0 fL Normal 82.0-98.0 [facility] Comment on above: Performed By: #### L [id number] #### [facility] ([facility]) [address] [place] [address] Monocytes (Bld) [#/Vol] 0.69 10*3/uL Normal 0.10-1.00 [facility] Comment on above: Performed By: #### L [id number] #### [facility] ([facility]) [address] [place] [address] Monocytes/100 WBC (Bld) 9.1 % Normal 5.0-12.0 [facility] Comment on above: Performed By: #### L [id number] #### [facility] ([facility]) [address] [place] [address] Neutrophils (Bld) [#/Vol] 4.73 10*3/uL Normal 1.60-7.60 [facility] Comment on above: Performed By: #### L [id number] #### [facility] ([facility]) [address] [place] [address] Neutrophils/100 WBC (Bld) 62.3 % Normal 40.0-72.0 [facility] Comment on above: Performed By: #### L [id number] #### [facility] ([facility]) [address] [place] [address] NRBC (PER 100 WBCS) BY AUTOMATED COUNT 0.0 % Normal 0 [facility] Comment on above: Performed By: #### L [id number] #### [facility] ([facility]) [address] [place] [address] PLATELETS (10*3/UL) IN BLOOD AUTOMATED COUNT 175 10*3/uL Normal 150-400 [facility] Comment on above: Performed By: #### L [id number] #### [facility] ([facility]) [address] [place] [address] RBC (Bld) [#/Vol] 4.31 10*6/uL Normal 3.80-5.00 [facility] Comment on above: Performed By: #### L [id number] #### [facility] ([facility]) [address] [place] [address] WBC (Bld) [#/Vol] 7.58 10*3/uL Normal 4.00-10.60 [facility] Comment on above: Performed By: #### L [id number] #### [facility] ([facility]) [address] [place] [address] CONSULTon 02-05-2023 CONSULT ----- ----- Attestation signed [...] PMH: Past Medical History: Diagnosis Date A-fib ([facility]) Cancer ([facility]) Coronary artery disease Hypertension Myocardial infarct ([facility]) Stroke ([facility]) PSH: Past Surgical History: Procedure Laterality [...] lightheadedness, (more content not included)... Normal [facility] HEPATIC FUNCTION PANELon Albumin [Mass/Vol] 3.8 g/dL Normal 3.5-5.7 [facility] Comment on above: Performed By: #### L [id number] #### [facility] ([facility]) [address] [place] [address] ALP [Catalytic activity/Vol] 92 U/L Normal 34-104 [facility] Comment on above: Performed By: #### L [id number] #### [facility] ([facility]) [address] [place] [address] ALT [Catalytic activity/Vol] 11 U/L Normal 7-52 [facility] Comment on above: Performed By: #### L [id number] #### [facility] ([facility]) [address] [place] [address] AST [Catalytic activity/Vol] 23 U/L Normal 13-39 [facility] Comment on above: Performed By: #### L [id number] #### [facility] ([facility]) [address] [place] [address] Bilirubin [Mass/Vol] 0.8 mg/dL Normal 0.3-1.0 [facility] Comment on above: Performed By: #### L [id number] #### [facility] ([facility]) [address] [place] [address] Magnesium [Mass/Vol] 0.1 mg/dL Normal 0-0.2 [facility] Comment on above: Performed By: #### L [id number] #### [facility] ([facility]) [address] [place] [address] Protein [Mass/Vol] 6.5 g/dL Normal 6.0-8.3 [facility] Comment on above: Performed By: #### L [id number] #### [facility] ([facility]) [address] [place] [address] HPon 02-05-2023 HP H&P reviewed. The pa tient was examined and there are no changes to the H&P. Normal [facility] HP H&P reviewed. The pa tient was examined and there are no changes to the H&P. Normal [facility] HP ----- ----- Attestation signed by Matilda [...] lightheadedness, (more content not included)... Normal [facility] MAGNESIUMon 02-05-2023 Magnesium [Mass/Vol] 1.4 mg/dL Low 1.9-2.7 [facility] Comment on above: Performed By: #### L [id number] #### [facility] ([facility]) [address] [place] [address] TROPONIN Ion 02-05-2023 Troponin I.cardiac [Mass/Vol] 0.25 ng/mL Critically high 0.00-0.04 [facility] Comment on above: Result Comment: M-IN EVIOUS CRITICAL RESULT Previous result verified on 02/05/2023 0550 on specimen/case [id number] called with component Troponin I for procedure Troponin I with value 0.21 ng/mL. Performed By: #### L [id number] ####[facility] ([facility])[address] [place] [address] Troponin I.cardiac [Mass/Vol] 0.21 ng/mL Critically high 0.00-0.04 [facility] Comment on above: Result Comment: M-IN EVIOUS CRITICAL RESULT Previous result verified on 02/05/2023 0053 on specimen/case [id number] called with component Troponin I for procedure Troponin I with value 0.27 ng/mL. Performed By: #### L [id number] #### [facility] ([facility]) [address] [place] [address] Troponin I.cardiac [Mass/Vol] 0.27 ng/mL Critically high 0.00-0.04 [facility] Comment on above: Result Comment: M-TR OPONIN INITIAL CRITICAL HIGH; RESPUN AND RETESTED Performed By: #### L [id number] #### [facility] ([facility]) [address] [place] [address] HPon 01-23-2023 [facility] Electrophysiology Consult Note Reason for visit: [...] CKD. She was recently admitted to [facility] for weakness, suspected to have a [...] stroke who presented with generalized weakness to [facility]. At [facility], EKG demonstarted a 2:1 AV block with prolonged IN interval 266. Chest x-ray demonstrated possible trace [...] rate 59. Patient was transferred to [facility] for further evaluation by cardiology. She [...] anastrozole (more content not included)... Normal [facility] Office Visiton 01-23-2023 Follow-up visit [id number] Trisha Parish 1945 F Date Provider Department Center 01/23/2023 241-DOE SOTO CARD [facility] No family history on file Level of Service:94404 IN OFFICE/OUTPATIENT NEW MODERATE MDM 45-59 MINUTES Reason for Visit and Comments: Follow-up [503894] - 3 month follow up Normal [facility] Office Visiton 01-17-2023 Follow-up visit [id number] Trisha Parish 1945 F Date Provider Department Center 01/17/2023 TOÑO SIMPSON [facility] No family history on file Level of Service:20945 IN OFFICE/OUTPATIENT ESTABLISHED MOD MDM 30-39 MIN Reason for Visit and Comments: Valve Disorder [3372] Atrial Fibrillation [80] Coronary Artery Disease [187] Normal [facility] PTH INTACTon 10-07-2022 PTH, Intact 45 pg/mL Normal 15-65 [facility] Comment on above: Performed By: #### P T, PTT #### [facility] [address] [place] [address] Dr. Madisyn Bentley Office Visiton 10-06-2022 Follow-up visit [id number] Trisha Parish 1945 F Date Provider Department Center 10/06/2022 MIKAYLA AUSTIN [facility] No family history on file Level of Service:99411 IN OFFICE/OUTPATIENT ESTABLISHED LOW MDM 20-29 MIN Reason for Visit and Comments: Hypertension [493239] Normal [facility] RENAL FUNCTION PANELon 10-06 Albumin [Mass/Vol] 3.3 g/dL Critically low 3.4-5.0 [facility] Comment on above: Performed By: #### R ENAL #### [facility] [address] [address] [address] Madisyn Bentley Calcium [Mass/Vol] 8.2 mg/dL Critically low 8.5-10.1 [facility] Comment on above: Performed By: #### R ENAL #### [facility] [address] [address] [address] Madisyn Bentlye Chloride [Moles/Vol] 110 mmol/L Critically high 98-107 [facility] Comment on above: Performed By: #### R ENAL #### [facility] [address] [address] [address] Madisyn Bentley CO2 [Moles/Vol] 22.2 mmol/L Normal 21.0-32.0 [facility] Comment on above: Performed By: #### R ENAL #### [facility] [address] [address] [address] Madisyn Bentley Creatinine [Mass/Vol] 1.36 mg/dL Critically high 0.55-1.02 [facility] Comment on above: Performed By: #### R ENAL #### [facility] [address] [address] [address] Madisyn Bentley EGFR-AF MONEGASQUE 46 mL/min/1.73m2 Critically low >=60 [facility] Comment on above: Performed By: #### R ENAL #### [facility] [address] [address] [address] Maidsyn Bentley EGFR-NON AF MONEGASQUE 38 mL/min/1.73m2 Critically low >=60 [facility] Comment on above: Performed By: #### R ENAL #### [facility] [address] [address] [address] Madisyn Bentley Glucose [Mass/Vol] 145 mg/dL Critically high 74-106 [facility] Comment on above: Performed By: #### R ENAL #### [facility] [address] [address] [address] Madisyn Bentley Phosphate [Mass/Vol] 2.7 mg/dL Normal 2.6-4.7 [facility] Comment on above: Performed By: #### R ENAL #### [facility] [address] [address] [address] Madisyn Bentley Potassium [Moles/Vol] 3.9 mmol/L Normal 3.5-5.1 [facility] Comment on above: Performed By: #### R ENAL #### [facility] [address] [address] [address] Madisyn Bentley Sodium [Moles/Vol] 143 mmol/L Normal 136-145 [facility] Comment on above: Performed By: #### R ENAL #### [facility] [address] [address] [address] Madisyn Bentley Urea nitrogen [Mass/Vol] 24.0 mg/dL Critically high 7.0-18.0 [facility] Comment on above: Performed By: #### R ENAL #### [facility] [address] [place] [address] Dr. Madisyn Bentley UA RANDOMon 10-06-2022 Bilirubin Ql (U) Negative Normal NEGATIVE [facility] Comment on above: Performed By: #### R ENAL #### [facility] [address] [place] [address] Dr. Madisyn Bentley Clarity (U) CLEAR Normal CLEAR [facility] Comment on above: Performed By: #### R ENAL #### [facility] [address] [place] [address] Dr. Madisyn Bentley Color (U) LT. YELLOW Normal YELLOW [facility] Comment on above: Performed By: #### R ENAL #### [facility] [address] [place] [address] Dr. Madisyn Bentley Glucose Ql (U) Negative Normal NEGATIVE [facility] Comment on above: Performed By: #### R ENAL #### [facility] [address] [place] [address] Dr. Madisyn Bentley Hemoglobin Ql (U) Negative Normal NEGATIVE [facility] Comment on above: Performed By: #### R ENAL #### [facility] [address] [place] [address] Dr. Madisyn Bentley Ketones Ql (U) Negative Normal NEGATIVE [facility] Comment on above: Performed By: #### R ENAL #### [facility] [address] [place] [address] Dr. Madisyn Bentley LEUKOCYTES SMALL Abnormal NEGATIVE [facility] Comment on above: Performed By: #### R ENAL #### [facility] [address] [place] [address] Dr. Madisyn Bentley Nitrite Ql (U) Negative Normal NEGATIVE [facility] Comment on above: Performed By: #### R ENAL #### [facility] [address] [place] [address] Dr. Madisyn Bentley pH (U) 5.5 [pH] Normal 5-9 [facility] Comment on above: Performed By: #### R ENAL #### [facility] [address] [place] [address] Dr. Madisyn Bentley SPEC GRAVITY 1.020 Normal 1.005-<=1.[address] [place] [address] Comment on above: Performed By: #### R ENAL #### [facility] [address] [place] [address] Dr. Madisyn Bentley UA PROTEIN TRACE Normal NEGATIVE/ TRACE [facility] Comment on above: Performed By: #### R ENAL #### [facility] [address] [place] [address] Dr. Madisyn Bentley Urobilinogen Qn (U) 0.2 {Luis Eduardo'U}/dL Normal 0.2 - 1. 0 [facility] Comment on above: Performed By: #### R ENAL #### [facility] [address] [place] [address] Dr. Madisyn Bentley URINE T PROTEIN CREAT RATIOo n 10-06-2022 Protein (U) [Mass/Vol] 47.8 mg/dL Critically high <=12.0 [facility] Comment on above: Performed By: #### U RTPCR #### [facility] [address] [place] [address] Dr. Madisyn Bentley UR PROT CREAT RAT 0.26 Normal [facility] Comment on above: Performed By: #### U RTPCR #### [facility] [address] [place] [address] Dr. Madisyn Bentley URINE CREAT 186.22 mg/dL Normal 20.00-300.00 [facility] Comment on above: Performed By: #### U RTPCR #### [facility] [address] [place] [address] Dr. Madisyn Bentley Office Visiton 09-20-2022 Follow-up visit [id number] Trisha Parish 1945 F Date Provider Department Center 09/20/2022 Yovany6-PRECIOUS MONREAL [facility] No family history on file Level of Service:97579 IN OFFICE/OUTPATIENT ESTABLISHED LOW MDM 20-29 MIN Normal [facility] CBC WITH AUTO DIFFERENTIALon 09-12-2022 Basophils (Bld) [#/Vol] 0.03 10*3/uL Normal 0.00-0.20 [facility] Comment on above: Performed By: #### L [id number] #### [facility] ([facility]) [address] [place] [address] Basophils/100 WBC (Bld) 0.3 % Normal 0.0-1.0 [facility] Comment on above: Performed By: #### L [id number] #### [facility] ([facility]) [address] [place] [address] Eosinophils (Bld) [#/Vol] 0.21 10*3/uL Normal 0.00-0.50 [facility] Comment on above: Performed By: #### L [id number] #### [facility] ([facility]) [address] [place] [address] Eosinophils/100 WBC (Bld) 2.3 % Normal 0.0-6.0 [facility] Comment on above: Performed By: #### L [id number] #### [facility] ([facility]) [address] [place] [address] Erythrocyte distribution width (RBC) [Ratio] 13.3 % Normal 11.5-15.0 [facility] Comment on above: Performed By: #### L [id number] #### [facility] ([facility]) [address] [place] [address] ERYTHROCYTE MEAN CORPUSCULAR HEMOGLOBIN CONCENTRATION (G/DL) BY AUTOMATED 33.4 g/dL Normal 32.0-35.0 [facility] Comment on above: Performed By: #### L [id number] #### [facility] ([facility]) [address] [place] [address] Hematocrit (Bld) [Volume fraction] 29.0 % Low 36.0-48.0 [facility] Comment on above: Performed By: #### L [id number] #### [facility] ([facility]) [address] [place] [address] Hemoglobin (Bld) [Mass/Vol] 9.7 g/dL Low 12.0-15.0 [facility] Comment on above: Performed By: #### L [id number] #### [facility] [address] [place] [address] Immature granulocytes (Bld) [#/Vol] 0.02 10*3/uL Normal 0.00-0.20 [facility] Comment on above: Performed By: #### L [id number] #### [facility] ([facility]) [address] [place] [address] Immature granulocytes/100 WBC (Bld) 0.2 % Normal 0.0-1.0 [facility] Comment on above: Performed By: #### L [id number] #### [facility] ([facility]) [address] [place] [address] Lymphocytes (Bld) [#/Vol] 1.24 10*3/uL Normal 1.20-4.00 [facility] Comment on above: Performed By: #### L [id number] #### [facility] ([facility]) [address] [place] [address] Lymphocytes/100 WBC (Bld) 13.6 % Low 20.0-45.0 [facility] Comment on above: Performed By: #### L [id number] #### [facility] ([facility]) [address] [place] [address] MCH (RBC) [Entitic mass] 30.4 pg Normal 27.0-33.0 [facility] Comment on above: Performed By: #### L [id number] #### [facility] [address] [facility] [facility] [address] MCV (RBC) [Entitic vol] 90.9 fL Normal 82.0-98.0 [facility] Comment on above: Performed By: #### L [id number] #### [facility] ([facility]) [address] [place] [address] Monocytes (Bld) [#/Vol] 0.68 10*3/uL Normal 0.10-1.00 [facility] Comment on above: Performed By: #### L [id number] #### [facility] ([facility]) [address] [place] [address] Monocytes/100 WBC (Bld) 7.5 % Normal 5.0-12.0 [facility] Comment on above: Performed By: #### L [id number] #### [facility] ([facility]) [address] [place] [address] Neutrophils (Bld) [#/Vol] 6.93 10*3/uL Normal 1.60-7.60 [facility] Comment on above: Performed By: #### L [id number] #### [facility] ([facility]) [address] [place] [address] Neutrophils/100 WBC (Bld) 76.1 % High 40.0-72.0 [facility] Comment on above: Performed By: #### L [id number] #### [facility] ([facility]) [address] [place] [address] NRBC (PER 100 WBCS) BY AUTOMATED COUNT 0.0 % Normal 0.0-0.0 [facility] Center Comment on above: Performed By: #### L [id number] #### [facility] ([facility]) [address] [place] [address] PLATELETS (10*3/UL) IN BLOOD AUTOMATED COUNT 175 10*3/uL Normal 150-400 [facility] Comment on above: Performed By: #### L [id number] #### [facility] ([facility]) [address] [place] [address] RBC (Bld) [#/Vol] 3.19 10*6/uL Low 3.80-5.00 [facility] Comment on above: Performed By: #### L [id number] #### [facility] ([facility]) [address] [place] [address] WBC (Bld) [#/Vol] 9.11 10*3/uL Normal 4.00-10.60 [facility] Comment on above: Performed By: #### L [id number] #### [facility] ([facility]) [address] [place] [address] COMPREHENSIVE METABOLIC PANE Otto 09-12-2022 Albumin [Mass/Vol] 2.9 g/dL Low 3.5-5.7 [facility] Comment on above: Performed By: #### L [id number] ####[facility] ([facility] [place] [address] ALP [Catalytic activity/Vol] 61 U/L Normal 34-104 [facility] Comment on above: Performed By: #### L [id number] ####[facility] ([facility])[address] [place] [address] ALT [Catalytic activity/Vol] 7 U/L Normal 7-52 [facility] Comment on above: Performed By: #### L [id number] ####[facility] ([facility])[address] [place] [address] Anion gap [Moles/Vol] 5 mmol/L Low 7-20 [facility] Comment on above: Performed By: #### L [id number] ####[facility] ([facility])[address] [place] [address] AST [Catalytic activity/Vol] 12 U/L Low 13-39 [facility] Comment on above: Performed By: #### L [id number] ####[facility] ([facility])[address] [place] [address] Bilirubin [Mass/Vol] 0.5 mg/dL Normal 0.3-1.0 [facility] Comment on above: Performed By: #### L [id number] ####[facility] [place] [address] Calcium [Mass/Vol] 8.2 mg/dL Low 8.6-10.3 [facility] Comment on above: Performed By: #### L [id number] ####[facility] ([facility] [place] [address] Chloride [Moles/Vol] 109 mmol/L High 98-107 [facility] Comment on above: Performed By: #### L [id number] ####[facility] ([facility] [place] [address] CO2 [Moles/Vol] 22 mmol/L Normal 21-31 [facility] Comment on above: Performed By: #### L [id number] ####[facility] ([facility] [place] [address] Creatinine [Mass/Vol] 1.59 mg/dL High 0.60-1.20 [facility] Comment on above: Performed By: #### L [id number] ####[facility] ([facility])[address] [place] [address] GLOMERULAR FILTRATION RATE ML/MIN/1.73 SQ M.PREDICTED 31.1 mL/min/1.73m*2 Low >60.0 [facility] Comment on above: Result Comment: [facility]???s estimated glomerular filtration rate (eGFR) [...] individuals. Performed By: #### L [id number] ####[facility] ([facility] [place] [address] Glucose [Mass/Vol] 80 mg/dL Normal 70-100 [facility] Comment on above: Performed By: #### L [id number] ####[facility] ([facility] [place] [address] Potassium [Moles/Vol] 3.9 mmol/L Normal 3.5-5.1 [facility] Comment on above: Performed By: #### L [id number] ####[facility] ([facility] [place] [address] Protein [Mass/Vol] 5.3 g/dL Low 6.0-8.3 [facility] Comment on above: Performed By: #### L [id number] ####[facility] ([facility]AKER)[address] [place] [address] Sodium [Moles/Vol] 136 mmol/L Normal 136-145 [facility] Comment on above: Performed By: #### L [id number] ####[facility] ([facility]ER)[address] [place] [address] Urea nitrogen [Mass/Vol] 37 mg/dL High 7-25 [facility] Comment on above: Performed By: #### L [id number] ####[facility] ([facility])[address] [place] [address] UREA NITROGEN/CREATININE (MASS RATIO) IN SER/PLAS 23.27 Normal [facility] Comment on above: Performed By: #### L [id number] ####[facility] ([facility])[address] [place] [address] DSon 09-12-2022 DS ----- ----- Attestation signed [...] Your Medications These medications were sent to [facility]/pharmacy #[id number] [place] [address] doxycycline 100 mg capsule Activity Patient currently [...] stroke who presented with generalized weakness to [facility]. She presented with 2-day history of exertional shortness of breath and weakness with intermittent palpitations. She stated that her legs felt heavy. She denied any recent changes of medication and illness. Patient states that she does take Plavix daily. She denies any use of anticoagulation. At [facility], EKG demonstarted a 2:1 AV block with prolonged IN interval 266. Chest x-ray demonstrated possible trace [...] rate 59. Patient was transferred to [facility] for further evaluation by cardiology. She [...] 13. (more content not included)... Normal [facility] MAGNESIUMon 09-12-2022 Magnesium [Mass/Vol] 1.9 mg/dL Normal 1.9-2.7 [facility] Comment on above: Performed By: #### L [id number] ####[facility] ([facility])[address] [place] [address] NURSNOTEon 09-12-2022 NURSNOTE Taught patient and h er discharge instructions, when to call doctor, follow up appointments, and medication changes. Normal [facility] PHOSPHORUSon 09-12-2022 Magnesium [Mass/Vol] 3.2 mg/dL Normal 2.5-5.0 [facility] Comment on above: Performed By: #### L [id number] ####[facility] ([facility])[address] [place] [address] POCT GLUCOSE METER UNSOLICIT ED RESULTSon 09-12-2022 Glucose [Mass/Vol] 96 mg/dL Normal 70-105 [facility] Comment on above: Result Comment: aide er2 Performed By: #### L [id number] #### [facility] ([facility]) [address] [place] [address] Glucose [Mass/Vol] 138 mg/dL High 70-105 [facility] Comment on above: Result Comment: chito es Performed By: #### L [id number] #### [facility] ([facility]) [address] [facility] [place] [address] APTTon 09-11-2022 ACTIVATED PARTIAL THROMBOPLASTIN TIME IN PPP BY COAGULATION ASSAY 48.0 Seconds High 25.0-35.0 [facility] Comment on above: Performed By: #### L [id number] #### [facility] ([facility]) [address] [facility] [facility] [place] [address] CBC WITH AUTO DIFFERENTIALon 09-11-2022 Basophils (Bld) [#/Vol] 0.02 10*3/uL Normal 0.00-0.20 [facility] Comment on above: Performed By: #### L [id number] ####[facility] ([facility])[address] [place] [address] Basophils/100 WBC (Bld) 0.3 % Normal 0.0-1.0 [facility] Comment on above: Performed By: #### L [id number] ####[facility] ([facility])[address] [place] [address] Eosinophils (Bld) [#/Vol] 0.12 10*3/uL Normal 0.00-0.50 [facility] Comment on above: Performed By: #### L [id number] ####[facility] ([facility])[address] [place] [address] Eosinophils/100 WBC (Bld) 2.0 % Normal 0.0-6.0 [facility] Comment on above: Performed By: #### L [id number] ####[facility] ([facility]ER)[address] [place] [address] Erythrocyte distribution width (RBC) [Ratio] 13.2 % Normal 11.5-15.0 [facility] Comment on above: Performed By: #### L [id number] ####[facility] ([facility])[address] [place] [address] ERYTHROCYTE MEAN CORPUSCULAR HEMOGLOBIN CONCENTRATION (G/DL) BY AUTOMATED 31.7 g/dL Low 32.0-35.0 [facility] Comment on above: Performed By: #### L [id number] ####[facility] ([facility])[address] [place] [address] Hematocrit (Bld) [Volume fraction] 30.0 % Low 36.0-48.0 [facility] Comment on above: Performed By: #### L [id number] ####[facility] ([facility])[address] [place] [address] Hemoglobin (Bld) [Mass/Vol] 9.5 g/dL Low 12.0-15.0 [facility] Comment on above: Performed By: #### L [id number] ####[facility] ([facility]ER)[address] [place] [address] Immature granulocytes (Bld) [#/Vol] 0.02 10*3/uL Normal 0.00-0.20 [facility] Comment on above: Performed By: #### L [id number] ####[facility] ([facility]ER)[address] [place] [address] Immature granulocytes/100 WBC (Bld) 0.3 % Normal 0.0-1.0 [facility] Comment on above: Performed By: #### L [id number] ####[facility] ([facility]ER)[address] [place] [address] Lymphocytes (Bld) [#/Vol] 1.23 10*3/uL Normal 1.20-4.00 [facility] Comment on above: Performed By: #### L [id number] ####[facility] ([facility])[address] [place] [address] Lymphocytes/100 WBC (Bld) 21.0 % Normal 20.0-45.0 [facility] Comment on above: Performed By: #### L [id number] ####[facility] ([facility])[address] [place] [address] MCH (RBC) [Entitic mass] 29.4 pg Normal 27.0-33.0 [facility] Comment on above: Performed By: #### L [id number] ####[facility] ([facility]ER)[address] [place] [address] MCV (RBC) [Entitic vol] 92.9 fL Normal 82.0-98.0 [facility] Comment on above: Performed By: #### L [id number] ####[facility] ([facility]ER)[address] [place] [address] Monocytes (Bld) [#/Vol] 0.62 10*3/uL Normal 0.10-1.00 [facility] Comment on above: Performed By: #### L [id number] ####[facility] ([facility]ER)[address] [place] [address] Monocytes/100 WBC (Bld) 10.6 % Normal 5.0-12.0 [facility] Comment on above: Performed By: #### L [id number] ####[facility] ([facility] [place] [address] Neutrophils (Bld) [#/Vol] 3.85 10*3/uL Normal 1.60-7.60 [facility] Comment on above: Performed By: #### L [id number] ####[facility] ([facility])[address] [place] [address] Neutrophils/100 WBC (Bld) 65.8 % Normal 40.0-72.0 [facility] Comment on above: Performed By: #### L [id number] ####[facility] ([facility])[address] [place] [address] NRBC (PER 100 WBCS) BY AUTOMATED COUNT 0.0 % Normal 0.0-0.0 [facility] Comment on above: Performed By: #### L [id number] ####[facility] ([facility])[address] [place] [address] PLATELETS (10*3/UL) IN BLOOD AUTOMATED COUNT 165 10*3/uL Normal 150-400 [facility] Comment on above: Performed By: #### L [id number] ####[facility] ([facility])[address] [place] [address] RBC (Bld) [#/Vol] 3.23 10*6/uL Low 3.80-5.00 [facility] Comment on above: Performed By: #### L [id number] ####[facility] ([facility] [place] [address] WBC (Bld) [#/Vol] 5.86 10*3/uL Normal 4.00-10.60 [facility] Comment on above: Performed By: #### L [id number] ####[facility] ([facility]ER)[address] [place] [address] COMPREHENSIVE METABOLIC PANE Otto 09-11-2022 Albumin [Mass/Vol] 3.1 g/dL Low 3.5-5.7 [facility] Comment on above: Performed By: #### L [id number] ####[facility] ([facility])[address] [place] [address] ALP [Catalytic activity/Vol] 65 U/L Normal 34-104 [facility] Comment on above: Performed By: #### L [id number] ####[facility] ([facility])[address] [place] [address] ALT [Catalytic activity/Vol] 7 U/L Normal 7-52 [facility] Comment on above: Performed By: #### L [id number] ####[facility] ([facility])[address] [place] [address] Anion gap [Moles/Vol] 7 mmol/L Normal 7-20 [facility] Comment on above: Performed By: #### L [id number] ####[facility] ([facility])[address] [place] [address] AST [Catalytic activity/Vol] 10 U/L Low 13-39 [facility] Comment on above: Performed By: #### L [id number] ####[facility] ([facility])[address] [place] [address] Bilirubin [Mass/Vol] 0.7 mg/dL Normal 0.3-1.0 [facility] Comment on above: Performed By: #### L [id number] ####[facility] ([facility])[address] [place] [address] Calcium [Mass/Vol] 8.2 mg/dL Low 8.6-10.3 [facility] Comment on above: Performed By: #### L [id number] ####[facility] ([facility])[address] [place] [address] Chloride [Moles/Vol] 112 mmol/L High 98-107 [facility] Comment on above: Performed By: #### L [id number] ####[facility] ([facility])[address] [place] [address] CO2 [Moles/Vol] 19 mmol/L Low 21-31 [facility] Comment on above: Performed By: #### L [id number] ####[facility] ([facility])[address] [place] [address] Creatinine [Mass/Vol] 1.69 mg/dL High 0.60-1.20 [facility] Comment on above: Performed By: #### L [id number] ####[facility] ([facility])[address] [place] [address] GLOMERULAR FILTRATION RATE ML/MIN/1.73 SQ M.PREDICTED 28.9 mL/min/1.73m*2 Low >60.0 [facility] Comment on above: Result Comment: [facility]???s estimated glomerular filtration rate (eGFR) [...] individuals. Performed By: #### L [id number] ####[facility] ([facility])[address] [place] [address] Glucose [Mass/Vol] 106 mg/dL High 70-100 [facility] Comment on above: Performed By: #### L [id number] ####[facility] ([facility])[address] [place] [address] Potassium [Moles/Vol] 3.9 mmol/L Normal 3.5-5.1 [facility] Comment on above: Performed By: #### L [id number] ####[facility] ([facility])[address] [place] [address] Protein [Mass/Vol] 5.5 g/dL Low 6.0-8.3 [facility] Comment on above: Performed By: #### L [id number] ####[facility] ([facility])[address] [place] [address] Sodium [Moles/Vol] 138 mmol/L Normal 136-145 [facility] Comment on above: Performed By: #### L [id number] ####[facility] ([facility])[address] [place] [address] Urea nitrogen [Mass/Vol] 43 mg/dL High 7-25 [facility] Comment on above: Performed By: #### L [id number] ####[facility] ([facility])[address] [place] [address] UREA NITROGEN/CREATININE (MASS RATIO) IN SER/PLAS 25.44 Normal [facility] Comment on above: Performed By: #### L [id number] ####[facility] ([facility])[address] [place] [address] HPon 09-11-2022 HP H&P reviewed. The pa marlenent was examined and there are no changes to the H&P. Normal [facility] MAGNESIUMon 09-11-2022 Magnesium [Mass/Vol] 2.3 mg/dL Normal 1.9-2.7 [facility] Comment on above: Performed By: #### L [id number] #### [facility] ([facility]) [address] [place] [address] PHOSPHORUSon 09-11-2022 Magnesium [Mass/Vol] 3.3 mg/dL Normal 2.5-5.0 [facility] Comment on above: Performed By: #### L [id number] #### [facility] ([facility]) [address] [place] [address] POCT GLUCOSE METER UNSOLICIT ED RESULTSon 09-11-2022 Glucose [Mass/Vol] 100 mg/dL Normal 70-105 [facility] Comment on above: Result Comment: [email or web address] Performed By: #### L [id number] #### [facility] ([facility]) [address] [place] [address] Glucose [Mass/Vol] 111 mg/dL High 70-105 [facility] Comment on above: Result Comment: [email or web address] [email or web address] Performed By: #### L [id number] #### [facility] ([employer]) [address] [place] [address] Glucose [Mass/Vol] 107 mg/dL High 70-105 [facility] Comment on above: Result Comment: [email or web address] Performed By: #### L [id number] #### [facility] [address] [place] [address] PROTIME-INRon 09-11-2022 INR IN PPP BY COAGULATION ASSAY 1.51 High 0.90-1.10 [facility] Comment on above: Result Comment: [...] 1995;[id number]. Performed By: #### L [id number] ####[facility] ([employer])[address] [place] [address] PROTHROMBIN TIME (PT) IN PPP BY COAGULATION ASSAY 18.1 Seconds High 12.3-14.8 [facility] Comment on above: Performed By: #### L [id number] ####[facility] ([employer])[address] [place] [address] B-TYPE NATRIURETIC PEPTIDEon 09-10-2022 Natriuretic peptide B (Bld) [Mass/Vol] 1226 pg/mL High 0-100 [facility] Comment on above: Performed By: #### L [id number] #### [facility] ([facility]) [address] [place] [address] BNPon 09-10-2022 Natriuretic peptide B (Bld) [Mass/Vol] 88698.0 pg/mL Critically high <=1,800.0 [facility] Comment on above: Performed By: #### B LIVE TRUCK TECHNICIAN, HSTROPN #### [facility] [address] [place] [address] Dr. Madisyn Bentley CBC AUTO DIFFon 09-10-2022 BASO # 0.0 103/ul Normal 0.0-0.1 [facility] Comment on above: Performed By: #### R ENAL #### [facility] [address] [place] [address] Dr. Madisyn Bentley Basophils/100 WBC (Bld) 0.3 % Normal 0.2-2.0 [facility] Comment on above: Performed By: #### R ENAL #### [facility] [address] [place] [address] Dr. Madisyn Bentley EO # 0.3 103/ul Normal 0.0-0.7 [facility] Comment on above: Performed By: #### R ENAL #### [facility] [address] [place] [address] Dr. Madisyn Bentley Eosinophils/100 WBC (Bld) 2.4 % Normal 0.9-7.0 [facility] Comment on above: Performed By: #### R ENAL #### [facility] [address] [place] [address] Dr. Madisyn Bentley Erythrocyte distribution width (RBC) [Ratio] 13.3 % Normal 11.0-15.0 [facility] Comment on above: Performed By: #### R ENAL #### [facility] [address] [place] [address] Dr. Madisyn Bentley Hematocrit (Bld) [Volume fraction] 36.0 % Normal 36.0-48.0 [facility] Comment on above: Performed By: #### R ENAL #### [facility] [address] [place] [address] [address] Madisyn Bentley Hemoglobin (Bld) [Mass/Vol] 11.2 g/dL Critically low 12.0-16.0 [facility] Comment on above: Performed By: #### R ENAL #### [facility] [address] [place] [address] [address] Madisyn Bentley IG # 0.02 10e3/ul Normal 0.00-0.03 [facility] Comment on above: Performed By: #### R ENAL #### [facility] [address] [place] [address] Dr. Madisyn Bentley IG % 0.2 % Normal 0.0-0.5 [facility] Comment on above: Performed By: #### R ENAL #### [facility] [address] [place] [address] Dr. Madisyn Bentley LYMPH # 1.4 103/ul Normal 1.2-3.8 [facility] Comment on above: Performed By: #### R ENAL #### [facility] [address] [place] [address] Dr. Madisyn Bentley Lymphocytes/100 WBC (Bld) 13.3 % Critically low 20.5-60.0 [facility] Comment on above: Performed By: #### R ENAL #### [facility] [address] [place] [address] Dr. Madisyn Bentley MANUAL DIFF REQ NO Normal [facility] Comment on above: Performed By: #### R ENAL #### [facility] [address] [place] [address] Dr. Madisyn Bentley MCH (RBC) [Entitic mass] 28.9 pg Normal 26.7-34.0 [facility] Comment on above: Performed By: #### R ENAL #### [facility] [address] [place] [address] Dr. Madisyn Bentley MCHC (RBC) [Mass/Vol] 31.1 g/dL Normal 29.9-35.2 [facility] Comment on above: Performed By: #### R ENAL #### [facility] [address] [place] [address] [address] Madisyn Bentley MCV (RBC) [Entitic vol] 92.8 fL Normal 81.0-99.0 [facility] Comment on above: Performed By: #### R ENAL #### [facility] [address] [place] [address] [address] Madisyn Bentley MONO # 0.9 103/ul Critically high 0.3-0.8 [facility] Comment on above: Performed By: #### R ENAL #### [facility] [address] [place] [address] Dr. Madisyn Bentley Monocytes/100 WBC (Bld) 8.4 % Normal 1.7-12.0 [facility] Comment on above: Performed By: #### R ENAL #### [facility] [address] [place] [address] Dr. Madisyn Bentley NEUT # 8.1 103/ul Critically high 1.4-6.5 [facility] Comment on above: Performed By: #### R ENAL #### [facility] [address] [place] [address] Dr. Madisyn Bentley Neutrophils/100 WBC (Bld) 75.4 % Critically high 43.0-75.0 [facility] Comment on above: Performed By: #### R ENAL #### [facility] [address] [place] [address] Dr. Madisyn Bentley Platelet mean volume (Bld) [Entitic vol] 12.8 fL Normal 9.5-13.5 [facility] Comment on above: Performed By: #### R ENAL #### [facility] [address] [place] [address] Dr. Madisyn Bentley PLT 200 103/ul Normal 150-450 [facility] Comment on above: Performed By: #### R ENAL #### [facility] [address] [place] [address] Dr. Madisyn Bentley RBC 3.88 106/ul Critically low 4.20-5.40 [facility] Comment on above: Performed By: #### R ENAL #### [facility] [address] [place], [place] [address] Dr. Madisyn Bentley WBC 10.8 103/ul Normal 4.0-11.0 [facility] Comment on above: Performed By: #### R ENAL #### [facility] [address] [place], [place] [address] Dr. Madisyn Bentley CBC WITH AUTO DIFFERENTIALon 09-10-2022 Basophils (Bld) [#/Vol] 0.03 10*3/uL Normal 0.00-0.20 [facility] Comment on above: Performed By: #### L [id number] ####[facility] [place] [address] Basophils/100 WBC (Bld) 0.3 % Normal 0.0-1.0 [facility] Comment on above: Performed By: #### L [id number] ####[facility] ([facility] [place] [address] Eosinophils (Bld) [#/Vol] 0.08 10*3/uL Normal 0.00-0.50 [facility] [facility] Comment on above: Performed By: #### L [id number] ####[facility] (BEAKER)[address] [place] [address] Eosinophils/100 WBC (Bld) 0.8 % Normal 0.0-6.0 [facility] Comment on above: Performed By: #### L [id number] ####[facility] ([facility])[address] [place] [address] Erythrocyte distribution width (RBC) [Ratio] 13.2 % Normal 11.5-15.0 [facility] Comment on above: Performed By: #### L [id number] ####[facility] (BEAKER)[address] [place] [address] ERYTHROCYTE MEAN CORPUSCULAR HEMOGLOBIN CONCENTRATION (G/DL) BY AUTOMATED 31.6 g/dL Low 32.0-35.0 [facility] Comment on above: Performed By: #### L [id number] ####[facility] (BEAKER)[address] [place] [address] Hematocrit (Bld) [Volume fraction] 33.5 % Low 36.0-48.0 [facility] Comment on above: Performed By: #### L [id number] ####[facility] (BEAKER)[address] [place] [address] Hemoglobin (Bld) [Mass/Vol] 10.6 g/dL Low 12.0-15.0 [facility] Comment on above: Performed By: #### L [id number] ####[facility] (BEAKER)[address] [place] [address] Immature granulocytes (Bld) [#/Vol] 0.03 10*3/uL Normal 0.00-0.20 [facility] Comment on above: Performed By: #### L [id number] ####[facility] (BEAKER)[address] [place] [address] Immature granulocytes/100 WBC (Bld) 0.3 % Normal 0.0-1.0 [facility] Comment on above: Performed By: #### L [id number] ####[facility] (BE[facility]ER)[address] [place] [address] Lymphocytes (Bld) [#/Vol] 1.12 10*3/uL Low 1.20-4.00 [facility] Comment on above: Performed By: #### L [id number] ####[facility] (BEAKER)[address] [place] [address] Lymphocytes/100 WBC (Bld) 11.4 % Low 20.0-45.0 [facility] Comment on above: Performed By: #### L [id number] ####[facility] (BEAKER)[address] [place] [address] MCH (RBC) [Entitic mass] 28.4 pg Normal 27.0-33.0 [facility] Comment on above: Performed By: #### L [id number] ####[facility] (BEAKER)[address] [place] [address] MCV (RBC) [Entitic vol] 89.8 fL Normal 82.0-98.0 [facility] Comment on above: Performed By: #### L [id number] ####[facility] ([facility])[address] [place] [address] Monocytes (Bld) [#/Vol] 0.90 10*3/uL Normal 0.10-1.00 [facility] Comment on above: Performed By: #### L [id number] ####[facility] ([facility])[address] [place] [address] Monocytes/100 WBC (Bld) 9.1 % Normal 5.0-12.0 [facility] Comment on above: Performed By: #### L [id number] ####[facility] ([facility])[address] [place] [address] Neutrophils (Bld) [#/Vol] 7.69 10*3/uL High 1.60-7.60 [facility] Comment on above: Performed By: #### L [id number] ####[facility] ([facility])[address] [place] [address] Neutrophils/100 WBC (Bld) 78.1 % High 40.0-72.0 [facility] Comment on above: Performed By: #### L [id number] ####[facility] ([facility])[address] [place] [address] NRBC (PER 100 WBCS) BY AUTOMATED COUNT 0.0 % Normal 0.0-0.0 [facility] Comment on above: Performed By: #### L [id number] ####[facility] ([facility])[address] [place] [address] PLATELETS (10*3/UL) IN BLOOD AUTOMATED COUNT 204 10*3/uL Normal 150-400 [facility] Comment on above: Performed By: #### L [id number] ####[facility] ([facility])[address] [place] [address] RBC (Bld) [#/Vol] 3.73 10*6/uL Low 3.80-5.00 [facility] Comment on above: Performed By: #### L [id number] ####[facility] ([facility])[address] [place] [address] WBC (Bld) [#/Vol] 9.85 10*3/uL Normal 4.00-10.60 [facility] Comment on above: Performed By: #### L [id number] ####[facility] ([facility])[address] [place] [address] COMPREHENSIVE METABOLIC PANE Otto 09-10-2022 Albumin [Mass/Vol] 3.3 g/dL Low 3.5-5.7 [facility] Comment on above: Performed By: #### L [id number] #### [facility] ([facility]) [address] [place] [address] ALP [Catalytic activity/Vol] 75 U/L Normal 34-104 [facility] Comment on above: Performed By: #### L [id number] #### [facility] ([facility]) [address] [place] [address] ALT [Catalytic activity/Vol] 8 U/L Normal 7-52 [facility] Comment on above: Performed By: #### L [id number] #### [facility] ([facility]) [address] [place] [address] Anion gap [Moles/Vol] 9 mmol/L Normal 7-20 [facility] Comment on above: Performed By: #### L [id number] #### [facility] ([facility]) [address] [place] [address] AST [Catalytic activity/Vol] 11 U/L Low 13-39 [facility] Comment on above: Performed By: #### L [id number] #### [facility] ([facility]) [address] [place] [address] Bilirubin [Mass/Vol] 1.0 mg/dL Normal 0.3-1.0 [facility] Comment on above: Performed By: #### L [id number] #### [facility] (BEAKER) [address] [place] [address] Calcium [Mass/Vol] 8.3 mg/dL Low 8.6-10.3 [facility] Comment on above: Performed By: #### L [id number] #### [facility] ([facility]ER) [address] [place] [address] Chloride [Moles/Vol] 106 mmol/L Normal 98-107 [facility] Comment on above: Performed By: #### L [id number] #### [facility] [address] [place] [address] CO2 [Moles/Vol] 18 mmol/L Low 21-31 [facility] Comment on above: Performed By: #### L [id number] #### [facility] ([facility]) [address] [place] [address] Creatinine [Mass/Vol] 1.83 mg/dL High 0.60-1.20 [facility] Comment on above: Performed By: #### L [id number] #### [facility] ([facility]) [address] [place] [address] GLOMERULAR FILTRATION RATE ML/MIN/1.73 SQ M.PREDICTED 26.2 mL/min/1.73m*2 Low >60.0 [facility] Comment on above: Result Comment: [facility]???s estimated glomerular filtration rate (eGFR) [...] Performed By: #### L [id number] #### [facility] [address] [place] [address] Glucose [Mass/Vol] 144 mg/dL High 70-100 [facility] Comment on above: Performed By: #### L [id number] #### [facility] ([facility]) [address] [place] [address] Potassium [Moles/Vol] 4.0 mmol/L Normal 3.5-5.1 [facility] Comment on above: Performed By: #### L [id number] #### [facility] ([facility]) [address] [place] [address] Protein [Mass/Vol] 5.9 g/dL Low 6.0-8.3 [facility] Comment on above: Performed By: #### L [id number] #### [facility] ([facility]) [address] [place] [address] Sodium [Moles/Vol] 133 mmol/L Low 136-145 [facility] Comment on above: Performed By: #### L [id number] #### [facility] ([facility]) [address] [place] [address] Urea nitrogen [Mass/Vol] 50 mg/dL High 7-25 [facility] Comment on above: Performed By: #### L [id number] #### [facility] ([facility]) [address] [place] [address] UREA NITROGEN/CREATININE (MASS RATIO) IN SER/PLAS 27.32 Normal [facility] Comment on above: Performed By: #### L [id number] #### [facility] ([facility]) [address] [place] [address] CONSULTon 09-10-2022 CONSULT ----- ----- Attestation signed [...] II/Complete HB. She was transferred over from [facility] due to heart rate in the [...] a past medical history of A-fib ([facility]), Cancer (CMS/HCC), Coronary artery disease, Hypertension, Myocardial infarct (CMS/HCC), and Stroke (CMS/[facility]). Surgical History She has a past [...] no acute distress. HEAD: Atraumatic, normocephalic. EYES: JAUN, EOMI. NECK: No JVD present, no carotid [...] EF. (more content not included)... Normal [facility] Covid-19 PCR (CVDTB)on SARS-CoV-2 (COVID-19) RNA SUSAN+probe Ql (Unsp spec) Not detected Normal NOT DETECTED [facility] Comment on above: Result Comment: When [...] for this test is supported by the [place] of Health and Human Service's declaration that [...] Performed By: #### P T, PTT #### [facility] [address] [place], [place] [address] Dr. Madisyn Bentley FERRITINon 09-10-2022 FERRITIN (NG/ML) IN SER/PLAS 97.0 ng/mL Normal 11.0-307.0 [facility] Comment on above: Performed By: #### L [id number] #### [facility] [address] [place] [address] FOLATEon 09-10-2022 FOLATE (NG/ML) IN SER/PLAS 9.99 ng/mL Normal 6.6-1000 [facility] Comment on above: Performed By: #### L [id number] ####[facility] ([facility])[address] [place] [address] HEMOGLOBIN A1Con 09-10-2022 Glucose [Mass/Vol] 136.98 mg/dL Normal [facility] Comment on above: Performed By: #### L [id number] ####[facility] ([facility])[address] [place] [address] HbA1c (Bld) [Mass fraction] 6.4 % High 4.0-6.0 [facility] Comment on above: Performed By: #### L [id number] ####[facility] ([facility])[address] [place] [address] HPon 09-10-2022 HP ----- ----- Attestation signed [...] II/Complete HB. She was transferred over from [facility] due to heart rate in the [...] a past medical history of A-fib ([facility]), Cancer ([facility]/HCC), Coronary artery disease, Hypertension, Myocardial infarct ([facility]/HCC), and Stroke ([facility]/HCC). Surgical History She has a past [...] EF. (more content not included)... Normal [facility] HP ----- ----- Attestation signed [...] Parish Age - 77 y.o. - 1945 [id number] Date of Admission - 09/10/2022 11:01 AM Chief Complaint Generalized weakness History of Present Illness Trisha Parish is a 77 y.o. female with a past medical history significant for atrial fibrillation status post maze and left atrial appendage clip, coronary artery disease status post CABG, hypertension, stroke who presented with generalized weakness to [facility]. She presented with 2-day history of exertional shortness of breath and weakness with intermittent palpitations. She stated that her legs felt heavy. She denied any recent changes of medication and illness. Patient states that she does take Plavix daily. She denies any use of anticoagulation. At [facility], EKG demonstarted a 2:1 AV block with prolonged IN interval 266. Chest x-ray demonstrated possible trace [...] rate 59. Patient was transferred to [facility] for further evaluation by cardiology. On my evaluation, patient denied chest pain shortness of breath, lightheadedness, dizziness. She did state that she continued to feel weak. Patient arrived while on dopamine infusion. However, heart rate was noted to be in the 30s to 40s. PMH: Patient has a past medical history of A-fib ([facility]), Cancer ([facility]), Coronary artery disease, Hypertension, Myocardial infarct ([facility]), and Stroke ([facility]). PSH: Patient has a past surgical [...] specify (more content not included)... Normal [facility] IRON AND TIBCon 09-10-2022 IRON (UG/DL) IN SER/PLAS 27 ug/dL Low 50-212 [facility] Comment on above: Performed By: #### L [id number] #### [facility] ([facility]AKER) [address] [place] [address] IRON BINDING CAPACITY (UG/DL) IN SER/PLAS 203 ug/dL Low 250-450 [facility] Comment on above: Performed By: #### L [id number] #### [facility] ([facility]) [address] [place] [address] IRON BINDING CAPACITY.UNSATURATE D (UG/DL) IN SER/PLAS 176.0 ug/dL Normal 155.0-355.0 [facility] Comment on above: Performed By: #### L [id number] #### [facility] ([facility]) [address] [place] [address] IRON SATURATION (%) IN SER/PLAS 13 % Low 20-50 [facility] Comment on above: Performed By: #### L [id number] #### [facility] ([facility]) [address] [place] [address] MAGNESIUMon 09-10-2022 Magnesium [Mass/Vol] 1.6 mg/dL Low 1.9-2.7 [facility] Comment on above: Performed By: #### L [id number] ####[facility] ([facility])[address] [place] [address] PHOSPHORUSon 09-10-2022 Magnesium [Mass/Vol] 3.1 mg/dL Normal 2.5-5.0 [facility] Comment on above: Performed By: #### L [id number] ####[facility] ([facility])[address] [place] [address] POCT GLUCOSE METER UNSOLICIT ED RESULTSon 09-10-2022 Glucose [Mass/Vol] 152 mg/dL High 70-105 [facility] Comment on above: Result Comment: chito mc Performed By: #### L [id number] #### [facility] [address] [place] [address] Glucose [Mass/Vol] 151 mg/dL High 70-105 [facility] Comment on above: Result Comment: kyleigh haider Performed By: #### L [id number] #### [facility] [address] [place] [address] PROF 14(COMP METB)on 023 Albumin [Mass/Vol] 3.0 g/dL Critically low 3.4-5.0 [facility] Comment on above: Performed By: #### R ENAL #### [facility] [address] [place] [address] [address] Madisyn Bentley Albumin/Globulin [Mass ratio] 0.8 {ratio} Normal [facility] Comment on above: Performed By: #### R ENAL #### [facility] [address] [address] [address] Madisyn Bentley ALP [Catalytic activity/Vol] 113 U/L Normal 46-116 [facility] Comment on above: Performed By: #### R ENAL #### [facility] [address] [address] [address] Madisyn Bentley ALT [Catalytic activity/Vol] 15 U/L Normal 14-59 [facility] Comment on above: Performed By: #### R ENAL #### [facility] [address] [place] [address] Dr. Madisyn Bentley Anion gap [Moles/Vol] 16.4 mmol/L Normal [facility] Comment on above: Performed By: #### R ENAL #### [facility] [address] [place] [address] Dr. Madisyn Bentley AST [Catalytic activity/Vol] 15 U/L Normal 15-37 [facility] Comment on above: Performed By: #### R ENAL #### [facility] [address] [place] [address] Dr. Madisyn Bentley Bilirubin [Mass/Vol] 0.6 mg/dL Normal 0.2-1.0 [facility] Comment on above: Performed By: #### R ENAL #### [facility] [address] [place] [address] Dr. Madisyn Bentley Calcium [Mass/Vol] 8.6 mg/dL Normal 8.5-10.1 [facility] Comment on above: Performed By: #### R ENAL #### [facility] [address] [address] [address] Madisyn Bentley Chloride [Moles/Vol] 102 mmol/L Normal 98-107 [facility] Comment on above: Performed By: #### R ENAL #### [facility] [address] [address] [address] Madisyn Bentley CO2 [Moles/Vol] 18.9 mmol/L Critically low 21.0-32.0 [facility] Comment on above: Performed By: #### R ENAL #### [facility] [address] [address] [address] Madisyn Bentley Creatinine [Mass/Vol] 1.95 mg/dL Critically high 0.55-1.02 [facility] Comment on above: Performed By: #### R ENAL #### [facility] [address] [address] [address] Madisyn Bentley EGFR-AF MONEGASQUE 30 mL/min/1.73m2 Critically low >=60 [facility] Comment on above: Performed By: #### R ENAL #### [facility] [address] [place] [address] Dr. Madisyn Bentley EGFR-NON AF MONEGASQUE 25 mL/min/1.73m2 Critically low >=60 [facility] Comment on above: Performed By: #### R ENAL #### [facility] [address] [address] [address] Madisyn Bentley Globulin (S) [Mass/Vol] 3.7 g/dL Normal [facility] Comment on above: Performed By: #### R ENAL #### [facility] [address] [place] [address] Dr. Madisyn Bentley Glucose [Mass/Vol] 190 mg/dL Critically high 74-106 [facility] Comment on above: Performed By: #### R ENAL #### [facility] [address] [address] [address] Madisyn Bentley Potassium [Moles/Vol] 4.3 mmol/L Normal 3.5-5.1 [facility] Comment on above: Performed By: #### R ENAL #### [facility] [address] [address] [address] Madisyn Bentley Protein [Mass/Vol] 6.7 g/dL Normal 6.4-8.2 [facility] Comment on above: Performed By: #### R ENAL #### [facility] [address] [place] [address] Dr. Madisyn Bentley Sodium [Moles/Vol] 133 mmol/L Critically low 136-145 [facility] Comment on above: Performed By: #### R ENAL #### [facility] [address] [place] [address] Dr. Madisyn Bentley Urea nitrogen [Mass/Vol] 51.0 mg/dL Critically high 7.0-18.0 [facility] Comment on above: Performed By: #### R ENAL #### [facility] [address] [place] [address] Dr. Madisyn Bentley Urea nitrogen/Creatinine [Mass ratio] 26.2 mg/mg Normal [facility] Comment on above: Performed By: #### R ENAL #### [facility] [address] [place] [address] Dr. Madisyn Bentley PROTIMEon 09-10-2022 INR Coag (PPP) [Relative time] 1.20 {INR} Normal [facility] Comment on above: Performed By: #### P T, PTT #### [facility] [address] [place] [address] Dr. Madisyn Bentley INR GUIDELINES SEE BELOW Normal [facility] Comment on above: Result Comment: ROMY RED INR: 2.0 - 3.0 CONDITIONS NOT LISTED BELOW 2.5 - 3.5 FOR PROSTHETIC HEART VALVE REPLACEMENT 2.5 - 3.5 RECURRENT THROMBOSIS Performed By: #### P T, PTT #### [facility] [address] [place] [address] Dr. Madisyn Bentley PT Coag (PPP) [Time] 12.6 s Critically high 9.0-11.6 [facility] Comment on above: Performed By: #### P T, PTT #### [facility] [address] [place] [address] Dr. Madisyn Bentley PROTIME-INRon 09-10-2022 INR IN PPP BY COAGULATION ASSAY 1.36 High 0.90-1.10 [facility] Comment on above: Result Comment: [...] 1995;[id number]. Performed By: #### L [id number] ####[facility] ([place])[address] [place] [address] PROTHROMBIN TIME (PT) IN PPP BY COAGULATION ASSAY 16.6 Seconds High 12.3-14.8 [facility] Comment on above: Performed By: #### L [id number] ####[facility] ([place])[address] [place] [address] PTTon 09-10-2022 aPTT Coag (Bld) [Time] 36.0 s Normal 22.3-36.2 [facility] Comment on above: Performed By: #### P T, PTT #### [facility] [address] [place] [address] Dr. Madisyn Bentley T4, FREEon 09-10-2022 THYROXINE (T4) FREE (NG/DL) IN SER/PLAS 1.36 ng/dL Normal 0.71-1.85 [facility] Comment on above: Performed By: #### L [id number] ####[facility] ([facility])[address] [place] [address] TROPONIN Ion 09-10-2022 Troponin I.cardiac [Mass/Vol] 0.03 ng/mL Normal 0.00-0.04 [facility] Comment on above: Performed By: #### L [id number] #### [facility] ([facility]) [address] [place] [address] TROPONIN, HIGH SENSITIVITYon 09-10-2022 HSTROP 79.4 pg/mL Critically high 4.0-51.3 [facility] Comment on above: Result Comment: CUT- OFF POINTS HAVE BEEN ESTABLISHED BASED ON THE FOURTH UNIVERSAL DEFINITIONS OF MYOCARDIAL INFARCTION. THE UPPER REFERENCE LIMIT (URL) OF TROPONIN, DEFINED THE 99TH PERCENTILE OF cTnI DISTRIBUTION IN A REFERENCE POPULATION, HAS BEEN CONFIRMED THE DECISION THRESHOLD FOR WI DIAGNOSIS. Performed By: #### B LIVE TRUCK TECHNICIAN, HSTROPN #### [facility] [address] [place] [address] Dr. Madisyn Bentley TSH3 REFLEX TO FT4on 023 THYROTROPIN (MIU/L) IN SER/PLAS BY DETECTION LIMIT <= 0.05 MIU/L 6.40 mIU/L High 0.34-5.60 [facility] Comment on above: Performed By: #### L [id number] #### [facility] ([facility]) [address] [place] [address] VITAMIN B12on 09-10-2022 Cobalamin (Vitamin B12) [Mass/Vol] 177 pg/mL Low 180-914 [facility] Comment on above: Result Comment: REFE RENCE RANGES: 180-914 pg/mL Normal 145-179 pg/mL Indeterminate <145 pg/mL Deficient Performed By: #### L [id number] #### [facility] ([facility]) [address] [place] [address] XR CHEST 1 Von 09-10-2022 XR CHEST [...] Kelli FLANNERY Date: 2022-09-10 04:58 Normal [facility] GLYCOHEMOGLOBIN A1Con 2021 ADA RECOMMENDATION SEE BELOW Normal [facility] Comment on above: Result Comment: ADA RECOMMENDED LIMIT 4.0 - 6.0 ADA THERAPEUTIC TARGET < 7.0 ACTION SUGGESTED > 7.0 Performed By: #### P T, PTT #### [facility] [address] [place], [place] [address] Dr. Madisyn Bentley Glucose [Mass/Vol] 186 mg/dL Normal [facility] Comment on above: Performed By: #### P T, PTT #### [facility] [address] [place], [place] [address] Dr. Madisyn Bentley HbA1c (Bld) [Mass fraction] 8.1 % Critically high 4.5-6.2 [facility] Comment on above: Performed By: #### P T, PTT #### [facility] [address] [place], [place] [address] Dr. Madisyn Bentley US THYROIDon 05-24-2022 US [...] by: DIAMOND HILARIO Date: 2022-05-24 12:24 Normal [facility] MAMM SCREEN RT 3D CADon 1 MG MAMM SCREEN RT 3D CAD Patient: TRISHA PARISH Exam Date: 05/23/2022 : 1945 Gender:F Ordering : DR SANYA TINEO M.D. Admission #: [id number] Family : Order #: [id number] CLICK HERE TO VIEW EXAM RADIOLOGY REPORT [...] and chemotherapy Family Cancers None LOCATION: [facility] BREAST COMPOSITION: Scattered areas fibroglandular density. [...] Hilario M.D. on 05/23/2022 at 10:38 Normal [facility] XR DEXA BONE DENSITYon 05-23 XR [...] DIAMOND HILARIO Date: 2022-05-23 19:25 Normal [facility] CBC AUTO DIFFon 05-16-2022 BASO # 0.0 103/ul Normal 0.0-0.1 [facility] Comment on above: Performed By: #### C BC #### [facility] [address] [address] [address] Madisyn Bentley Basophils/100 WBC (Bld) 0.4 % Normal 0.2-2.0 [facility] Comment on above: Performed By: #### C BC #### [facility] [address] [address] [address] Madisyn Bentley EO # 0.3 103/ul Normal 0.0-0.7 [facility] Comment on above: Performed By: #### C BC #### [facility] [address] [address] [address] Madisyn Bentley Eosinophils/100 WBC (Bld) 4.5 % Normal 0.9-7.0 [facility] Comment on above: Performed By: #### C BC #### [facility] [address] [address] [address] Madisyn Bentley Erythrocyte distribution width (RBC) [Ratio] 13.1 % Normal 11.0-15.0 [facility] Comment on above: Performed By: #### C BC #### [facility] [address] [address] [address] Madisyn Bentley Hematocrit (Bld) [Volume fraction] 37.9 % Normal 36.0-48.0 [facility] Comment on above: Performed By: #### C BC #### [facility] [address] [place] [address] Dr. Madisyn Bentley Hemoglobin (Bld) [Mass/Vol] 12.4 g/dL Normal 12.0-16.0 [facility] Comment on above: Performed By: #### C BC #### [facility] [address] [place] [address] Dr. Madisyn Bentley IG # 0.02 10e3/ul Normal 0.00-0.03 [facility] Comment on above: Performed By: #### C BC #### [facility] [address] [place] [address] Dr. Madisyn Bentley IG % 0.3 % Normal 0.0-0.5 [facility] Comment on above: Performed By: #### C BC #### [facility] [address] [place] [address] Dr. Madisyn Bentley LYMPH # 1.6 103/ul Normal 1.2-3.8 [facility] Comment on above: Performed By: #### C BC #### [facility] [address] [place] [address] Dr. Madisyn Bentley Lymphocytes/100 WBC (Bld) 22.0 % Normal 20.5-60.0 [facility] Comment on above: Performed By: #### C BC #### [facility] [address] [place] [address] Dr. Madisyn Bentley MANUAL DIFF REQ NO Normal [facility] Comment on above: Performed By: #### C BC #### [facility] [address] [place] [address] Dr. Madisyn Bentley MCH (RBC) [Entitic mass] 29.4 pg Normal 26.7-34.0 [facility] Comment on above: Performed By: #### C BC #### [facility] [address] [place] [address] Dr. Madisyn Bentley MCHC (RBC) [Mass/Vol] 32.7 g/dL Normal 29.9-35.2 [facility] Comment on above: Performed By: #### C BC #### [facility] [address] [place] [address] Dr. Madisyn Bentley MCV (RBC) [Entitic vol] 89.8 fL Normal 81.0-99.0 [facility] Comment on above: Performed By: #### C BC #### [facility] [address] [place] [address] Dr. Madisyn Bentley MONO # 0.5 103/ul Normal 0.3-0.8 [facility] Comment on above: Performed By: #### C BC #### [facility] [address] [place] [address] Dr. Madisyn Bentley Monocytes/100 WBC (Bld) 7.3 % Normal 1.7-12.0 [facility] Comment on above: Performed By: #### C BC #### [facility] [address] [place] [address] Dr. Madisyn Bentley NEUT # 4.9 103/ul Normal 1.4-6.5 [facility] Comment on above: Performed By: #### C BC #### [facility] [address] [place] [address] Dr. Madisyn Bentley Neutrophils/100 WBC (Bld) 65.5 % Normal 43.0-75.0 [facility] Comment on above: Performed By: #### C BC #### [facility] [address] [place] [address] Dr. Madisyn Bentley Platelet mean volume (Bld) [Entitic vol] 12.1 fL Normal 9.5-13.5 [facility] Comment on above: Performed By: #### C BC #### [facility] [address] [place] [address] Dr. Madisyn Bentley PLT 171 103/ul Normal 150-450 [facility] Comment on above: Performed By: #### C BC #### [facility] [address] [place] [address] Dr. Madisyn Bentley RBC 4.22 106/ul Normal 4.20-5.40 [facility] Comment on above: Performed By: #### C BC #### [facility] [address] [place] [address] Dr. Madisyn Bentley WBC 7.4 103/ul Normal 4.0-11.0 [facility] Comment on above: Performed By: #### C BC #### [facility] [address] [place], [place] [address] Dr. Madisyn Bentley LIPID PROFILEon 05-16-2022 CHOL-HDL RATIO NORM SEE BELOW Normal [facility] Comment on above: Result Comment: 3.3 - 4.4 LOW RISK 4.4 - 7.1 AVERAGE RISK 7.1 - 11.0 MODERATE RISK >11.0 HIGH RISK Performed By: #### P T, PTT #### [facility] [address] [place], [place] [address] Dr. Madisyn Bentley Cholesterol [Mass/Vol] 132 mg/dL Normal <=200 [facility] Comment on above: Performed By: #### P T, PTT #### [facility] [address] [address] [address] Madisyn Bentley Cholesterol in HDL [Mass/Vol] 44 mg/dL Normal 40-60 [facility] Comment on above: Performed By: #### P T, PTT #### [facility] [address] [place], [place] [address] Dr. Madisyn Bentley Cholesterol in LDL [Mass/Vol] 59.6 mg/dL Normal [facility] Comment on above: Performed By: #### P T, PTT #### [facility] [address] [place], [place] [address] Dr. Madisyn Bentley Cholesterol.total/C holesterol in HDL [Mass ratio] 3.0 {ratio} Normal [facility] Comment on above: Performed By: #### P T, PTT #### [facility] [address] [place], [place] [address] Dr. Madisyn Bentley HDL NORMAL > or = 60 mg/dl - LO W CARDIOVASCULAR RISK <40 mg/dl - HIGH CARDIOVASCULAR RISK Normal [facility] Comment on above: Performed By: #### P T, PTT #### [facility] [address] [place], [place] [address] Dr. Madisyn Bentley LDL CALC NORMAL SEE BELOW Normal [facility] Comment on above: Result Comment: <100 mg/dl OPTIMAL 100 - 129 mg/dl NEAR OR ABOVE OPTIMAL 130 - 159 mg/dl BORDERLINE HIGH 160 - 189 mg/dl HIGH >190 mg/dl VERY HIGH Performed By: #### P T, PTT #### [facility] [address] [place] [address] Dr. Madisyn Bentley Triglyceride [Mass/Vol] 142 mg/dL Normal <=150 [facility] Comment on above: Performed By: #### P T, PTT #### [facility] [address] [place] [address] Dr. Madisyn Bentley VLDL CALC 28.4 mg/dL Normal [facility] Comment on above: Performed By: #### P T, PTT #### [facility] [address] [place] [address] Dr. Madisyn Bentley PROF 14(COMP METB)on 022 Albumin [Mass/Vol] 3.8 g/dL Normal 3.4-5.0 [facility] Comment on above: Performed By: #### P T, PTT #### [facility] [address] [place] [address] Dr. Madisyn Bentley Albumin/Globulin [Mass ratio] 1.1 {ratio} Normal [facility] Comment on above: Performed By: #### P T, PTT #### [facility] [address] [place] [address] Dr. Madisyn Bentley ALP [Catalytic activity/Vol] 158 U/L Critically high 46-116 [facility] Comment on above: Performed By: #### P T, PTT #### [facility] [address] [place] [address] Dr. Madisyn Bentley ALT [Catalytic activity/Vol] 24 U/L Normal 14-59 [facility] Comment on above: Performed By: #### P T, PTT #### [facility] [address] [place] [address] Dr. Madisyn Bentley Anion gap [Moles/Vol] 14.1 mmol/L Normal [facility] Comment on above: Performed By: #### P T, PTT #### [facility] [address] [place] [address] Dr. Madisyn Bentley AST [Catalytic activity/Vol] 12 U/L Critically low 15-37 [facility] Comment on above: Performed By: #### P T, PTT #### [facility] [address] [address] [address] Madisyn Bentley Bilirubin [Mass/Vol] 0.7 mg/dL Normal 0.2-1.0 [facility] Comment on above: Performed By: #### P T, PTT #### [facility] [address] [place] [address] Dr. Madisyn Bentley Calcium [Mass/Vol] 8.9 mg/dL Normal 8.5-10.1 [facility] Comment on above: Performed By: #### P T, PTT #### [facility] [address] [place] [address] Dr. Madisyn Bentley Chloride [Moles/Vol] 105 mmol/L Normal 98-107 [facility] Comment on above: Performed By: #### P T, PTT #### [facility] [address] [place] [address] Dr. Madisyn Bentley CO2 [Moles/Vol] 23.4 mmol/L Normal 21.0-32.0 [facility] Comment on above: Performed By: #### P T, PTT #### [facility] [address] [place] [address] Dr. Madisyn Bentley Creatinine [Mass/Vol] 1.64 mg/dL Critically high 0.55-1.02 [facility] Comment on above: Performed By: #### P T, PTT #### [facility] [address] [place] [address] Dr. Madisyn Bentley EGFR-AF MONEGASQUE 37 mL/min/1.73m2 Critically low >=60 [facility] Comment on above: Performed By: #### P T, PTT #### [facility] [address] [place] [address] Dr. Madisyn Bentley EGFR-NON AF MONEGASQUE 30 mL/min/1.73m2 Critically low >=60 [facility] Comment on above: Performed By: #### P T, PTT #### [facility] [address] [place] [address] Dr. Madisyn Bentley Globulin (S) [Mass/Vol] 3.5 g/dL Normal [facility] Comment on above: Performed By: #### P T, PTT #### [facility] [address] [place] [address] Dr. Madisyn Bentley Glucose [Mass/Vol] 222 mg/dL Critically high 74-106 [facility] Comment on above: Performed By: #### P T, PTT #### [facility] [address] [place] [address] Dr. Madisyn Bentley Potassium [Moles/Vol] 4.5 mmol/L Normal 3.5-5.1 [facility] Comment on above: Performed By: #### P T, PTT #### [facility] [address] [place] [address] Dr. Madisyn Bentley Protein [Mass/Vol] 7.3 g/dL Normal 6.4-8.2 [facility] Comment on above: Performed By: #### P T, PTT #### [facility] [address] [place] [address] Dr. Madisyn Bentley Sodium [Moles/Vol] 138 mmol/L Normal 136-145 [facility] Comment on above: Performed By: #### P T, PTT #### [facility] [address] [place] [address] Dr. Madisyn Bentley Urea nitrogen [Mass/Vol] 35.0 mg/dL Critically high 7.0-18.0 [facility] Comment on above: Performed By: #### P T, PTT #### [facility] [address] [place] [address] Dr. Madisyn Bentley Urea nitrogen/Creatinine [Mass ratio] 21.3 mg/mg Normal [facility] Comment on above: Performed By: #### P T, PTT #### [facility] [address] [place] [address] Dr. Madisyn Bentley RENAL FUNCTION PANELon 04-07 Albumin [Mass/Vol] 3.5 g/dL Normal 3.4-5.0 [facility] Comment on above: Performed By: #### R ENAL #### [facility] [address] [address] [address] Madisyn Bentley Calcium [Mass/Vol] 8.1 mg/dL Critically low 8.5-10.1 [facility] Comment on above: Performed By: #### R ENAL #### [facility] [address] [address] [address] Madisyn Bentley Chloride [Moles/Vol] 110 mmol/L Critically high 98-107 [facility] Comment on above: Performed By: #### R ENAL #### [facility] [address] [address] [address] Madisyn Bentley CO2 [Moles/Vol] 20.2 mmol/L Critically low 21.0-32.0 [facility] Comment on above: Performed By: #### R ENAL #### [facility] [address] [place] [address] Dr. Madisyn Bentley Creatinine [Mass/Vol] 1.89 mg/dL Critically high 0.55-1.02 [facility] Comment on above: Performed By: #### R ENAL #### [facility] [address] [address] [address] Madisyn Bentley EGFR-AF MONEGASQUE 31 mL/min/1.73m2 Critically low >=60 [facility] Comment on above: Performed By: #### R ENAL #### [facility] [address] [place] [address] Dr. Madisyn Bentley EGFR-NON AF MONEGASQUE 26 mL/min/1.73m2 Critically low >=60 [facility] Comment on above: Performed By: #### R ENAL #### [facility] [address] [address] [address] Madisyn Bentley Glucose [Mass/Vol] 149 mg/dL Critically high 74-106 [facility] Comment on above: Performed By: #### R ENAL #### [facility] [address] [place] [address] Dr. Madisyn Bentley Phosphate [Mass/Vol] 3.4 mg/dL Normal 2.6-4.7 [facility] Comment on above: Performed By: #### R ENAL #### [facility] [address] [place] [address] Dr. Madisyn Bentley Potassium [Moles/Vol] 4.5 mmol/L Normal 3.5-5.1 [facility] Comment on above: Performed By: #### R ENAL #### [facility] [address] [place] [address] Dr. Madisyn Bentley Sodium [Moles/Vol] 141 mmol/L Normal 136-145 [facility] Comment on above: Performed By: #### R ENAL #### [facility] [address] [place] [address] Dr. Madisyn Bentley Urea nitrogen [Mass/Vol] 34.0 mg/dL Critically high 7.0-18.0 [facility] Comment on above: Performed By: #### R ENAL #### [facility] [address] [place] [address] Dr. Madisyn Bentley UA RANDOMon 04-07-2022 Bilirubin Ql (U) Negative Normal NEGATIVE [facility] Comment on above: Performed By: #### U A #### [facility] [address] [place] [address] Dr. Madisyn Bentley Clarity (U) CLEAR Normal CLEAR [facility] Comment on above: Performed By: #### U A #### [facility] [address] [place] [address] Dr. Madisyn Bentley Color (U) LT. YELLOW Normal YELLOW [facility] Comment on above: Performed By: #### U A #### [facility] [address] [place] [address] Dr. Madisyn Bentley Glucose Ql (U) Negative Normal NEGATIVE [facility] Comment on above: Performed By: #### U A #### [facility] [address] [place] [address] Dr. Madisyn Bentley Hemoglobin Ql (U) Negative Normal NEGATIVE [facility] Comment on above: Performed By: #### U A #### [facility] [address] [place] [address] Dr. Madisyn Bentley Ketones Ql (U) Negative Normal NEGATIVE [facility] Comment on above: Performed By: #### U A #### [facility] [address] [place] [address] Dr. Madisyn Bentley LEUKOCYTES TRACE Abnormal NEGATIVE [facility] Comment on above: Performed By: #### U A #### [facility] [address] [place] [address] Dr. Madisyn Bentley Nitrite Ql (U) Negative Normal NEGATIVE [facility] Comment on above: Performed By: #### U A #### [facility] [address] [place] [address] Dr. Madisyn Bentley pH (U) 5.5 [pH] Normal 5-9 [facility] Comment on above: Performed By: #### U A #### [facility] [address] [place] [address] Dr. Madisyn Bentley SPEC GRAVITY 1.020 Normal 1.005-<=1.[address] [place] [address] Comment on above: Performed By: #### U A #### [facility] [address] [place] [address] Dr. Madisyn Bentley UA PROTEIN Negative Normal NEGATIVE/ TRACE [facility] Comment on above: Performed By: #### U A #### [facility] [address] [place] [address] Dr. Madisyn Bentley Urobilinogen Qn (U) 0.2 {Luis Eduardo'U}/dL Normal 0.2 - 1. 0 [facility] Comment on above: Performed By: #### U A #### [facility] [address] [place] [address] Dr. Madisyn Bentley URINE T PROTEIN CREAT RATIOo n 04-07-2022 Protein (U) [Mass/Vol] 25.7 mg/dL Critically high <=12.0 [facility] Comment on above: Performed By: #### P T, PTT #### [facility] [address] [place] [address] Dr. Madisyn Bentley UR PROT CREAT RAT 0.29 Normal [facility] Comment on above: Performed By: #### P T, PTT #### [facility] [address] [place] [address] Dr. Madisyn Bentley URINE CREAT 89.48 mg/dL Normal 20.00-300.00 [facility] Comment on above: Performed By: #### P T, PTT #### [facility] [address] [address] [address] Madisyn Bentley RENAL FUNCTION PANELon 11-25 Albumin [Mass/Vol] 3.7 g/dL Normal 3.4-5.0 [facility] Comment on above: Performed By: #### R ENAL #### [facility] [address] [address] [address] Madisyn Bentley Calcium [Mass/Vol] 8.6 mg/dL Normal 8.5-10.1 [facility] Comment on above: Performed By: #### R ENAL #### [facility] [address] [address] [address] Madisyn Bentley Chloride [Moles/Vol] 107 mmol/L Normal 98-107 [facility] Comment on above: Performed By: #### R ENAL #### [facility] [address] [place] [address] Dr. Madisyn Bentley CO2 [Moles/Vol] 23.3 mmol/L Normal 22.0-30.0 [facility] Comment on above: Performed By: #### R ENAL #### [facility] [address] [address] [address] Madisyn Bentley Creatinine [Mass/Vol] 1.56 mg/dL Critically high 0.55-1.02 [facility] Comment on above: Performed By: #### R ENAL #### [facility] [address] [address] [address] Madisyn Bentley EGFR-AF MONEGASQUE 39 mL/min/1.73m2 Critically low >=60 [facility] Comment on above: Performed By: #### R ENAL #### [facility] [address] [address] [address] Madisyn Bentley EGFR-NON AF MONEGASQUE 32 mL/min/1.73m2 Critically low >=60 [facility] Comment on above: Performed By: #### R ENAL #### [facility] [address] [address] [address] Madisyn Bentley Glucose [Mass/Vol] 106 mg/dL Normal 74-106 [facility] Comment on above: Performed By: #### R ENAL #### [facility] [address] [place] [address] Dr. Madisyn Bentley Phosphate [Mass/Vol] 3.8 mg/dL Normal 2.5-4.5 [facility] Comment on above: Performed By: #### R ENAL #### [facility] [address] [place] [address] Dr. Madisyn Bentley Potassium [Moles/Vol] 4.5 mmol/L Normal 3.4-5.0 [facility] Comment on above: Performed By: #### R ENAL #### [facility] [address] [place] [address] Dr. Madisyn Bentley Sodium [Moles/Vol] 141 mmol/L Normal 137-145 [facility] Comment on above: Performed By: #### R ENAL #### [facility] [address] [place] [address] Dr. Madisyn Bentley Urea nitrogen [Mass/Vol] 27.0 mg/dL Critically high 7.0-18.0 [facility] Comment on above: Performed By: #### R ENAL #### [facility] [address] [place] [address] Dr. Madisyn Bentley UA RANDOMon 11-25-2021 Bilirubin Ql (U) Negative Normal NEGATIVE [facility] Comment on above: Performed By: #### P T, PTT #### [facility] [address] [place] [address] Dr. Madisyn Bentley Clarity (U) CLEAR Normal CLEAR [facility] Comment on above: Performed By: #### P T, PTT #### [facility] [address] [place] [address] Dr. Madisyn Bentley Color (U) LT. YELLOW Normal YELLOW [facility] Comment on above: Performed By: #### P T, PTT #### [facility] [address] [place] [address] Dr. Madisyn Bentley Glucose Ql (U) Negative Normal NEGATIVE [facility] Comment on above: Performed By: #### P T, PTT #### [facility] [address] [place] [address] Dr. Madisyn Bentley Hemoglobin Ql (U) Negative Normal NEGATIVE [facility] Comment on above: Performed By: #### P T, PTT #### [facility] [address] [address] [address] Madisyn Bentley Ketones Ql (U) Negative Normal NEGATIVE [facility] Comment on above: Performed By: #### P T, PTT #### [facility] [address] [place] [address] Dr. Madisyn Bentley LEUKOCYTES Negative Normal NEGATIVE [facility] Comment on above: Performed By: #### P T, PTT #### [facility] [address] [place] [address] Dr. Madisyn Bentley Nitrite Ql (U) Negative Normal NEGATIVE [facility] Comment on above: Performed By: #### P T, PTT #### [facility] [address] [place] [address] Dr. Madisyn Bentley pH (U) 5.5 [pH] Normal 5-9 [facility] Comment on above: Performed By: #### P T, PTT #### [facility] [address] [place] [address] Dr. Madisyn Bentley SPEC GRAVITY 1.015 Normal 1.005-<=1.02 5 [facility] Comment on above: Performed By: #### P T, PTT #### [facility] [address] [place] [address] Dr. Madisyn Bentley UA PROTEIN Negative Normal NEGATIVE/ TRACE [facility] Comment on above: Performed By: #### P T, PTT #### [facility] [address] [place] [address] Dr. Madisyn Bentley Urobilinogen Qn (U) 0.2 {Luis Eduardo'U}/dL Normal 0.2 - 1. 0 [facility] Comment on above: Performed By: #### P T, PTT #### [facility] [address] [place] [address] Dr. Madisyn Bentley URINE T PROTEIN CREAT RATIOo n 11-25-2021 Protein (U) [Mass/Vol] 20.5 mg/dL Critically high <=12.0 [facility] Comment on above: Performed By: #### U RTPCR #### [facility] [address] [place] [address] Dr. Madisyn Bentley UR PROT CREAT RAT 0.25 Normal [facility] Comment on above: Performed By: #### U RTPCR #### [facility] [address] [place] [address] Dr. Madisny Bentley URINE CREAT 81.12 mg/dL Normal 20.00-300.00 [facility] Comment on above: Performed By: #### U RTPCR #### [facility] [address] [place] [address] Dr. Madisyn Bentley CYTOLOGYon 06-21-2021 CYTOLOGY Specimen #: [id number] Submitting Physician: ABNER WHEELER MD SPECIMEN [...] EYE, VITREOUS FINE NEEDLE ASPIRATE THIN PREP Non-Pumper Helper Date of Report: 06/22/2021 Date of Procedure: 06/21/2021 Date of Receipt: 06/22/2021 Submitted by: ABNER WHEELER MD Location: Diagnostic interpretation performed at [facility], [facility], [place] [id number]. CLIA Number: [id number] Normal [facility] Comment on above: Performed By: #### C #### See report for performing lab information. CNOVSPon 04-15-2018 CNOVSP Visit (SP) Office ([facility]) JEMTRISHA ([id number]) 1945 FDate Time Provider Department04/15/18 2:15 PM ROXANN ONEAL HEMACL During your visit today, we recorded the following information about you: Temperature Pulse Respiration Blood pressure 98.2 degrees 66/minute 16/minute 147/69 Weight Height 80.9 kg 1.626 mMINDY OLIVE ONEAL PA-C 04/15/2018 3:44 PM SignedPatient: Trisha Jem [facility] 1945 Attending Physician: Dr. Sadi Nolan: April [...] of lymph node dissection. 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 Ultimately the patient had to [...] questions or concernsJORDON SHAY-CReferring Provider: SADI WALLACE [[id number]]Allergies As of Date: 04/15/2018(No Known Allergies)Date Reviewed: 04/15/2018Reviewed by: Roxann Oneal - Fully AssessedReason for Visit: Breast Cancer [519] Cmt: follow upPrimary Visit Diagnosis:Malignant neoplasm of left breast in female, estrogen receptor positive, unspecified site of breast (HCC) [C50.912, Z17.0]Order(s):[facility] DI[facility]NOSTIC RT [[id number]] Order #: [id number] FUTUREDisposition: Return in about 1 year (around [...] FOR*Encounter Status:Closed by ROXANN ONEAL on 04/15/18 [facility] PROGRESSon 04-15-2018 Protein mass conc HNO ID: [id number] thor: Roxann Puenteice: (none)Author Type: Physician AssistantType: Progress NotesFiled: 04/15/2018 3:44 PMNote Text:Patient: Trisha Parish Location: [facility]: 1945 Attending Physician: Dr. Sadi Sotoate: [...] time of lymph node dissection. The tumor wasER/IN positive, HER-2 positve. Ultimately the patient had [...] with questions or concernsROXANN ONEAL PA-C Normal [facility] MAMM OUTSIDE DICOM IMPORT -N BNRon 04-05-2018 MAMM OUTSIDE DICOM IMPORT -NBNR Images were obtained outside of [facility] [id number] Normal [facility] Vital Signs Date Time Vital Sign Value Performing Clinician Facility 07-17-2023 11:00-0500 Body height 153.67 cm Sanya Tineo Other [facility] Other 07-17-2023 11:00-0500 Body mass index (BMI) [Ratio] 28.5 kg/m2 Sanya Tineo Other [facility] Other 07-17-2023 11:00-0500 Body weight 67.31 kg Sanya Tineo Other [facility] Other 07-17-2023 11:00-0500 Diastolic blood pressure 65 mm[Hg] Sanya Tineo Other [facility] Other 07-17-2023 11:00-0500 Systolic blood pressure 121 mm[Hg] Sanya Tineo Other [facility] Other 05-11-2023 11:30-0400 Body height 153.67 cm Sanya Tineo Other [facility] Other 05-11-2023 11:30-0400 Body mass index (BMI) [Ratio] 27.27 kg/m2 Sanya Tineo Other [facility] Other 05-11-2023 11:30-0400 Body weight 64.41 kg Sanya Tineo Other [facility] Other 05-11-2023 11:30-0400 Diastolic blood pressure 61 mm[Hg] Sanya Tineo Other [facility] Other 05-11-2023 11:30-0400 SaO2% (BldA) [Mass fraction] 97 % Sanya Tineo Other [facility] Other 05-11-2023 11:30-0400 Systolic blood pressure 107 mm[Hg] Sanya Tineo Other [facility] Other 04-17-2023 10:45-0400 Body height 153.67 cm Sanya Tineo Other [facility] Other 04-17-2023 10:45-0400 Body mass index (BMI) [Ratio] 27.89 kg/m2 Sanya Tineo Other [facility] Other 04-17-2023 10:45-0400 Body weight 65.86 kg Sanya Tineo Other [facility] Other 04-17-2023 10:45-0400 Diastolic blood pressure 72 mm[Hg] Sanya Tineo Other [facility] Other 04-17-2023 10:45-0400 Respiratory rate 12 /min Sanya Tineo Other [facility] Other 04-17-2023 10:45-0400 Systolic blood pressure 133 mm[Hg] Sanya Tineo Other [facility] Other 02-09-2023 11:00-0400 Body height 153.67 cm Sanya Tineo Other [facility] Other 02-09-2023 11:00-0400 Body mass index (BMI) [Ratio] 27.47 kg/m2 Sanya Tineo Other [facility] Other 02-09-2023 11:00-0400 Body weight 64.86 kg Sanya Tineo Other [facility] Other 02-09-2023 11:00-0400 Diastolic blood pressure 62 mm[Hg] Sanya Tineo Other [facility] Other 02-09-2023 11:00-0400 SaO2% (BldA) [Mass fraction] 98 % Sanya Tineo Other [facility] Other 02-09-2023 11:00-0400 Systolic blood pressure 125 mm[Hg] Sanya Tineo Other [facility] Other 09-08-2022 11:30-0500 Body height 153.67 cm Sanya Tineo Other [facility] Other 09-08-2022 11:30-0500 Body mass index (BMI) [Ratio] 29.77 kg/m2 Sanya Tineo Other [facility] Other 09-08-2022 11:30-0500 Body weight 70.31 kg Sanya Tineo Other [facility] Other 02-03-2023 11:30-0500 Diastolic blood pressure 58 mm[Hg] Sanya Tineo Other [facility] Other 09-08-2022 11:30-0500 SaO2% (BldA) [Mass fraction] 97 % Sanya Tineo Other [facility] Other 09-08-2022 11:30-0500 Systolic blood pressure 110 mm[Hg] Sanya Tineo Other [facility] Other Encounters Encounter Date Encounter Type Care Provider Facility Start: 10-19-2023 End: 10-19-2023 ambulatory DIRK ONEILL Not Available Start: 10-03-2023 End: 10-03-2023 ambulatory JENNIFER H TIMMIS Not Available Start: 08-28-2023 End: 08-28-2023 ambulatory DIRK ONEILL Not Available Start: 08-28-2023 End: 08-28-2023 Patient encounter procedure Dirk Oneill DO Work Phone: 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) Start: 08-21-2023 End: 08-21-2023 ambulatory DIRK ONEILL Not Available Start: 07-24-2023 End: 07-24-2023 ambulatory JENNIFER H TIMMIS Not Available Start: 07-17-2023 End: 07-17-2023 ambulatory Sanya Tineo Other [facility] Other Start: 07-17-2023 Patient encounter procedure Sanya wadsworth [facility] Start: 07-10-2023 End: 07-10-2023 ambulatory DOE SOTO [facility] Start: 05-18-2023 End: 05-18-2023 ambulatory [facility] Start: 05-11-2023 End: 05-11-2023 ambulatory Sanya Tineo Other [facility] Other Start: 05-11-2023 Office outpatient vi sit 15 minutes Sanya Tineo [facility] Start: 05-09-2023 Telephone encounter Sanya Rivka [facility] Start: 05-09-2023 End: 05-10-2023 ambulatory MARGARET ALVAREZ [facility] Other Start: 05-08-2023 End: 05-08-2023 ambulatory Sanya Tineo Other [facility] Other Start: 05-08-2023 Telephone encounter Sanya Rivka [facility] Start: 04-17-2023 End: 04-17-2023 ambulatory Sanya Tineo Other [facility] Other Start: 04-17-2023 Office outpatient vi sit 15 minutes Sanya Tineo [facility] Start: 04-11-2023 End: 04-11-2023 ambulatory [facility] Start: 04-04-2023 Evaluation and manag ement of inpatient [facility] Start: 04-03-2023 End: 04-04-2023 Encounter for preprocedural cardiovascular examination [facility] Start: 04-03-2023 End: 04-04-2023 Evaluation and management of inpatient [facility] Start: 2023 End: 2023 ambulatory [facility] Start: 02-23-2023 End: 02-24-2023 ambulatory MARGARET ALVAREZ [facility] Start: 02-21-2023 End: 02-21-2023 [facility] Start: 02-18-2023 End: 02-20-2023 Evaluation and management of inpatient Jailene Quesada Facility:[facility] Start: 02-09-2023 End: 02-09-2023 ambulatory Sanya Tineo Other [facility] Other Start: 02-09-2023 Office outpatient vi sit 25 minutes Sanya Tineo [facility] Start: 02-07-2023 Evaluation and manag ement of inpatient MARGARET ALVAREZ [facility] Start: 02-05-2023 Evaluation and manag ement of inpatient [facility] Start: 02-05-2023 Evaluation and manag ement of inpatient [facility] Start: 02-05-2023 End: 02-07-2023 Evaluation and management of inpatient [facility] Start: 01-23-2023 End: 01-23-2023 ambulatory [facility] Start: 01-17-2023 End: 01-17-2023 ambulatory [facility] Start: 12-05-2022 End: 12-05-2022 ambulatory Sanya Tineo Other [facility] Other Start: 12-05-2022 Telephone encounter Sanya Tineo [facility] Start: 12-04-2022 End: 12-04-2022 ambulatory Sanya Tineo Other [facility] Other Start: 12-04-2022 Telephone encounter Sanya Tineo [facility] Start: 10-24-2022 End: 10-24-2022 ambulatory DOE [facility] Start: 10-06-2022 End: 10-07-2022 ambulatory SHARITA KHAN Facility:[facility] Start: 10-06-2022 Encounter for prepro cedural cardiovascular examination [facility] Start: 09-20-2022 End: 09-20-2022 [facility] Start: 09-12-2022 Evaluation and manag ement of inpatient MIKAYLA MONCADA [facility] Start: 09-12-[address] SANYA TINEO Facil ity:[facility] Start: 09-11-2022 Evaluation and manag ement of inpatient [facility] Start: 09-10-2022 Evaluation and manag ement of inpatient YOUNGSOOK DINORA [facility] Start: 09-10-2022 End: 09-12-2022 Evaluation and management of inpatient MICHELE GOLDSMITH [facility] Start: 09-10-2022 End: 09-10-[address] MICHELE GOLDSMITH . Facility:[facility] Start: 09-08-2022 End: 09-08-2022 ambulatory Sanya Tineo Other [facility] Other Start: 09-08-2022 Office outpatient vi sit 25 minutes Sanya Tineo [facility] Start: 06-03-2022 End: 06-04-[address] SANYA TINEO Facility:[facility] Start: 05-23-2022 End: 05-24-2022 ambulatory DIAMOND HILARIO Facility:[facility] Start: 05-16-2022 End: 05-17-[address] SANYA TINEO Facility:[facility] Start: 04-07-2022 End: 04-08-2022 ambulatory SHARITA KHAN Facility:[facility] Start: 11-25-2021 End: 11-26-2021 ambulatory SHARITA AKRANJEET Facility:[facility] Start: 07-08-2018 End: 07-09-2018 Patient encounter procedure DEFAULT PHYSICIAN [facility] Start: 04-15-2018 End: 04-16-2018 Patient encounter SADI WALLACE [facility] Procedures Date Procedure Procedure Detail Performing [...] Office Visit [facility] [address] [facility] [address] [place] [id number] Jennifer Morales MD [address] [facility] [address] [place] [address] [facility] Start: 06-01-2021 Pneumococcal Vaccine : 65+ Years (2 - PPSV23 or PCV20) Pneumococcal Vaccine: 65+ Years (2 - PPSV23 or PCV20) [facility] Immunizations Immunization Date Immunization Notes Care Provider Fa cility 06-28-2022 COVID-19 Pfizer (Pediatric) Sanya Tineo Other [facility] Other 06-16-2022 influenza virus vaccine, split virus (incl. purified surface antigen) Sanya Tineo Other [facility] Other 09-03-2020 COVID-19 Vaccine Moderna - Documentation Purposes Only Sanya Tineo Other [facility] Other 04-26-2020 influenza virus vaccine, split virus (incl. purified surface antigen) Sanya Tineo Other [facility] Other 06-20-2015 influenza virus vaccine, split virus (incl. purified surface antigen) Sanya Tineo Other [facility] Other 06-01-2015 pneumococcal conjuga te vaccine, 13 valent Sanya Tineo Other [facility] Other Payers Date Payer Category Payer Medicare [id number] 2023 Self-pay 2017 Medicare [employer] MEDICARE ADVANTAGE FOR[facility]LY [facility] MEDICARE ADVANTAGE [id number] 2017-Present [address] [place] [address] [id number] 1959 Medicare [id number] 1945 Unknown [id number] [id number]7 1945 Unknown [id number] 2.16.840.1.199333.3.579.2.593 1945 Unknown [id number] 2.16.840.1.530527.3.579.2.593 1945 Unknown [id number] 2.16.840.1.332587.3.579.2.593 1945 Unknown [id number] 2.16.840.1.718741.3.579.2.593 1945 Unknown [id number] 2.16.840.1.504153.3.579.2.593 1945 Unknown [id number] 2.16.840.1.817681.3.579.2.593 1945 Unknown [id number] 2.16.840.1.116550.3.579.2.593 1945 Unknown [id number] 2.16.840.1.365710.3.579.2.593 1945 Unknown [id number] 2.16.840.1.487370.3.579.2.125 9 1945 Unknown [id number] 2.16.840.1.209736.3.579.2.125 9 1945 Unknown [id number] 2.16.840.1.832137.3.579.2.125 9 1945 Unknown [id number] 2.16.840.1.594915.3.579.2.125 9 1945 Unknown [id number] 2.16.840.1.267580.3.579.2.125 9 Unknown Unknown [id number] 2.16.840.1.084390.3.579.2.531 Social History Date Type Detail Facility Unknown if ever smoked [facility] Other Start: 07-24-2023 Sex Assigned At N [facility] Other Start: 07-24-2023 Tobacco smoking status NHIS Never smoked tobacco [facility] Start: 07-24-2023 Tobacco use and exposure Smokeless tobacco non-user [facility] Start: 08-28-2023 Alcohol intake Ex-drinker (finding) [facility] Start: 07-24-2023 History of Social function [facility] Start: 1945 Sex Assigned At Not on file [facility] Clinical Notes 06-21-2021 to 08-28-2023 Dirk [...] 100 MG/4ML Route: Intravitreal, Site: Left Eye [facility]: 47710-298-64, Lot: [id number], Expiration date: 10/24/2023, Waste: 0 mL Post-op [...] increased pain, redness, decreased vision or concerns. [facility] 08-28-2023 History of Presen t illness Narrative [...] 100 MG/4ML Route: Intravitreal, Site: Left Eye [facility]: 98641-807-20, Lot: [id number], Expiration date: 10/24/2023, Waste: 0 mL Post-op [...] vision or concerns. documented in this encounter [facility] 07-17-2023 Evaluation note Encounter Date Diagnosis Assessment [...] Z85.3) Handwrote rx for prothesis bra #3 [facility] Other 10-13-2023 NoteUT Cardiology - [facility] Subjective Trisha Parish is a [...] with presyncope NSTEMI (non-ST elevated myocardial infarction) (CMS/[facility]) Hx of CABG Severe aortic stenosis Nonrheumatic [...] September 2022 she was admitted to [facility] with weakness. She was found to [...] presented to the emergency room at the [facility] with dizziness and low blood pressure. [...] dry. Neurological: General (more content not included)...[facility] 05-11-2023 Evaluation note* Encounter Date Diagnosis Assessment Notes Treatment Notes Treatment Clinical Notes May, Bronchitis (ICD-10 - J40) Complete course of antibiotics. Discussed steroids for dyspnea. was recently ill as well. ER if symptoms worsen or fevers begin over weekend. [facility] Other 10-03-2023 Evaluation note* Encounter Date Diagnosis Assessment Notes Treatment Notes Treatment Clinical Notes May, Cough, unspecified type (ICD-10 - R05.9) [facility] Other 09-12-2023 Evaluation note* Encounter Date Diagnosis Assessment Notes Treatment Notes Treatment Clinical Notes Apr, Other specified postprocedural states (ICD-10 - Z98.890) s/p Aortic valve repair - doing very well. Energy is improving. 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 She was found to [...] presented to the emergency room at the [facility] with dizziness and low blood pressure. [...] Behavior is cooperati (more content not included)...[facility]08-30-2023 NoteSubjective Patient lying in bed [...] surgery standpoint. Medical management per cardiology team.[facility]08-30-2023 Note04/04/23 1035 Admission Assessment Questions [...] Discharge? Yes Does the patient have a correctional casework specialist assigned to them through their insurance? No Living Arrangement (Current/Prior to Hospitalization) Private residence (3 steps to enter) Does the patient have history of HHC or SNF? Yes (Hx of rehab placement in [place]) Assistive Device Grab bars Patient's goal for [...] link and activate MyChart? MyChart already active [facility]08-29-2023 NoteIndications; Mrs. Robbins is a [...] the right common femoral Utilizing 2 6 Liberian ProGlide devices 6. Angio-Seal vascular closure in the right femoral, artery Kiln Tender; interventional bliss press operator; Toño Balbuena MD Cardiac surgery bliss press operator; Lina Lamas MD ; washer and capper machine operator Herve Mayorga MD ; Methods; Procedure was explained to the patient with risks and benefits. She signed informed consent. She was brought to the Digital Project Manager in a fasting state. The procedure was performed the Digital Project Manager under conscious sedation. Both groin areas were prepped and draped in usual fashion. Micropuncture technique and ultrasound guidance was used to access the right common femoral artery and inner cannula angiography was performed following by upsizing to a 6 Liberian by 11 cm sheath. The same was done for for access in the left common femoral artery. Ultrasound guidance was used for micropuncture access in left common femoral vein and 6 Liberian by 11 cm introducer sheath was secured in place. This time we proceeded with preclosure in the right common femoral artery using 2 crossing perclosure devices and the access was then upsized over wire to the 10 Liberian sheath. Heparin was given intravenously and therapeutic ACT was confirmed during the rest of the procedure and additional heparin was given as needed. A 5 Liberian balloontipped pacemaker wire was advanced through the femoral sheath into the right ventricular apex and adequate capture was confirmed. Right common femoral artery was accessed and upsized over an Amplatz extra-stiff wire to the 14 Liberian Medtronic sheath. Through the left common femoral sheath an angled 6 Liberian pigtail catheter was then advanced to the ascending aorta into the 9 coronary cusp. Aortic root angiography was performed and the cause overlap view as determined by prior CT scan measurements. A 6 Liberian AL diagnostic catheter was advanced via the right femoral sheath and using a stiff Glidewire the aortic valve was crossed and the catheter was advanced into the left ventricular cavity and using exchange length J-wire a 6 Liberian angled pigtail catheter was advanced to make [...] valve over the wire across the aortic wiyot aortic valve and under pacing at 120 [...] and removed outside the body. The 14 Liberian access sheath was placed across the right femoral and 6 Liberian angled pigtail catheter was advanced across the [...] placed per (more content not included)... [facility]08-29-2023 NotePatient: Trisha Parish Procedure Information Date/Time: 04/03/23 1100 Procedure: TAVR Location: [facility] CORD MAKER 3 / [facility] (Cath) Providers: Toño Balbuena MD Clinical information reviewed: Allergies Meds OB Status Physical Exam Airway Mallampati: II TM distance: >3 FB Neck ROM: full Cardiovascular Rhythm: regular Rate: normal Dental Pulmonary Abdominal Anesthesia Plan ASA 3 other (Moderate sedation) Anesthetic plan and risks discussed with patient. Use of blood products discussed with patient who consented to blood products. Additional Equipment [facility]-02-[address] [facility] - [facility] Subjective Trisha Parish is a [...] September 2022 she was admitted to [facility] with weakness. She was found to [...] Rfl: carvedilol (Co (more content not included)...[facility] 02-21-2023 NoteCardiology Clinic Note Subjective [...] Never Update: 02/21/2023 She was hospitalized at [facility] for 3 days after presenting with dizziness [...] elevated She was hospitalized 02/04-02/07/23 at [facility] and underwent coronary angiography and right [...] WBC 6.44 02/06 (more content not included)...[facility] 02-09-2023 Evaluation note* Encounter Date Diagnosis Assessment Notes Treatment Notes Treatment Clinical Notes Feb, Nonrheumatic aortic valve stenosis (ICD-10 - I35.0) Discussed followup testing and likely procedure coming up at [facility] at length w pt and Feb, Chronic kidney disease, stage 3 unspecified (ICD-10 - N18.30) Reviewed labs - condition stable Feb, CAD in wiyot artery (ICD-10 - I25.10) Further f/u w [facility] Cardiology Feb, Essential hypertension (ICD-10 - I10) Improved on present meds. [facility] Other 07-05-2023 NotePhysical Therapy Physical Therapy Evaluation [...] in front. During session, patient confided in clinical writer that they felt as though their balance had decreased during this admission and that they were worried about walking due to occasional and unpredictable losses of balance. Patient reported that they thought it could be related to neuropathy at their feet, but were unsure. Patient told clinical writer that they wished to address loss of balance issues sooner rather than later and they felt less confident walking. Patient Active Problem List Diagnosis Heart block Acute renal failure syndrome (CMS/HCC) Anemia Atrial fibrillation ([facility]/HCC) Benign hypertensive renal disease Carotid artery stenosis Cerebrovascular accident ([facility]/HCC) Coronary arteriosclerosis Essential hypertension Hypertensive disorder Hyperparathyroidism due to renal insufficiency ([facility]/HCC) Breast CA ([facility]/HCC) Malignant neoplasm of female breast ([facility]/HCC) Proteinuria Stage 3 chronic kidney disease ([facility]/HCC) Stage 4 chronic kidney disease ([facility]/HCC) Type 2 diabetes mellitus ([facility]/HCC) Vitamin D deficiency 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 ([facility]/HCC) Pre-operative cardiovascular examination, recent myocardial infarction (CMS/HCC) Cardiac pacemaker in situ Postural dizziness with presyncope NSTEMI (non-ST elevated myocardial infarction) ([facility]/HCC) Hx of CABG Severe aortic stenosis Past Medical History: Diagnosis Date A-fib ([facility]/HCC) Cancer (CMS/HCC) Coronary artery disease Hypertension Myocardial infarct ([facility]/HCC) Stroke ([facility]/HCC) Past Surgical History: Procedure Laterality Date [...] Level of Function Prior Function Level of [place]: Independent with ADLs and functional transfers Prior [...] Balance Dynamic Darwin (more content not included)...[facility] 02-07-2023 NoteHospital Medicine Discharge Summary [...] Medications These medications were sent to [facility] [place] [address] [place] [address] [place] [address], [facility] [address] lisinopril 40 mg tablet NIFEdipine CC 60 [...] activity as tolerate (more content not included)...[facility]07-04-[facility]23 NoteHospital Medicine Daily Progress Note - 02/06/2023 1:29 PM; Room: [address] [place] [address] Admission: 02/04/2023 10:47 PM; Length of stay: 2 days THE HOSPITALIST TEAM PREFERS TO USE [employer] CHAT FOR COMMUNICATION 7AM-7PM. IF I DO NOT RESPOND WITHIN 15 MINUTES, PLEASE PAGE ME/CALL THROUGH THE RUM PROCESSING OPERATOR. FROM 7PM-7AM, PLEASE PAGE [phone](COVR) Code Status: Full Code Discharge Destination: home [...] Cardiac pacemaker in situ Anemia Atrial fibrillation ([facility]) Carotid artery stenosis Essential hypertension Hypertensive disorder Breast CA ([facility]) Type 2 diabetes mellitus ([facility]) Vitamin D deficiency Postural dizziness with presyncope Hx of CABG NSTEMI (non-ST elevated myocardial infarction) ([facility]) Assessment and Plan #Near-syncope #NSTEMI type [...] Component Value D (more content not included)...[facility]07-04-2023 Note Attestation signed by Matilda [...] Value Ventricular Rate 72 Atrial Rate 72 IN Interval 162 QRS DURATION 150 QT Interval 464 QTC CALCULATION(BAZETT) 508 P [place] 70 R-[place] -40 T Wave [place] 103 Impression Atrial-sensed ventricular-paced rhythm Abnormal ECG When compared with ECG of 10-SEP-2022 13:04, Electronic ventricular pacemaker has replaced Sinus rhythm Confirmed by Cheryl VALENTIN, MATILDA Robles ([id number]) on 02/05/2023 8:39:37 AM Lab Results Component Value Date TROPONINI 0.25 (HH) 02/05/2023 Complete Echo (TTE) w/wo Imaging Agent, Strain, 3D, Bubble Study Result Date: 02/05/[address] [facility] Heart Station [address] [place], [place] [id number] (fax) Echocardiogram-[facility] Name: TRISHA PARISH Study Date: 02/05/2023 09:59 AM B/P: 136 mmHg/65 mmHg HR: 61 bpm Date of : 1945 Location: [facility] Height: 63 in. Age: 77 year(s) [...] Aortic Va (more content not included)... [facility]07-04-2023 NoteCTA CHEST W AND/OR WO [...] 3 cusped view, anterior view and no AQUARIST-CAU view are obtained in 3-D volume rendered [...] of 23 mm. Electronically signed: Fely Carrington.[facility] Comment on above:Order Comment: TAVR [id number] NoteCTA ABDOMEN PELVIS W AND/OR WO IV [...] and levoconvex scoliosis. Electronically signed: Fely Carrington.[facility] 02-05-2023 NotePatient: Trisha Parish Procedure Information Date/Time: 02/05/23 1800 Procedures: Coronary angiography Right heart cath Valve assessment - Aortic valve Location: [facility] CORD MAKER 3 / [facility] (Cath) Providers: Herve Mayorga MD Clinical information reviewed: Allergies Meds Physical Exam Airway Mallampati: III Cardiovascular Rhythm: regular Dental Pulmonary Abdominal Anesthesia Plan ASA 3 other (Conscious sedation ) intravenous induction Anesthetic plan and risks discussed with patient. Use of blood products discussed with patient who. Additional Equipment RequestsOhio[facility]07-03-2023 Note Clinical Nutrition Assessment Name: [...] intake > 75% meals Alexander Chowdhury RDOhioHealth Southeastern Medical Center07-03-2023 NoteHospital Medicine Daily Progress Note - 02/05/2023 12:08 PM; Room: 3122/3122-01 Admission: 02/04/2023 10:47 PM; Length of stay: 1 days THE HOSPITALIST TEAM PREFERS TO USE gDecide CHAT FOR COMMUNICATION 7AM-7PM. IF I DO NOT RESPOND WITHIN 15 MINUTES, PLEASE PAGE ME/CALL THROUGH THE RUM PROCESSING OPERATOR. FROM 7PM-7AM, PLEASE PAGE [phone](COVR) Code Status: Full Code Discharge Destination: home [...] 1.36 09/10/2022 Lab Results Component Value Date [id number] 177 (L) 09/10/2022 IRON 27 (L) 09/10/2022 [...] Ray NP Hospital Medicine 02/05/2023 12:08 PMOhio[facility]-03-[facility] NoteHospital Medicine History and Physical 02/05/2023 12:23 AM THE HOSPITALIST TEAM PREFERS TO USE gDecide CHAT FOR COMMUNICATION 7AM-7PM. IF I DO NOT RESPOND WITHIN 15 MINUTES, PLEASE PAGE ME/CALL THROUGH THE RUM PROCESSING OPERATOR. FROM 7PM-7AM, PLEASE PAGE [phone](COVR) Chief Complaint Direct transfer History of Present [...] 02/05/2023 Pre-operative cardiovascular examination, [place] [place] 10/06/2022 Atrial fibrillation ([facility]) 09/20/2022 Carotid artery stenosis 09/20/2022 Cerebrovascular accident [place] [place] 09/20/2022 Coronary arteriosclerosis 09/20/2022 Hypertensive disorder 09/20/2022 Heart block 09/10/2022 Hyperparathyroidism due to renal insufficiency [place] [place] 04/02/2019 Stage 4 chronic kidney disease [place] [place] 04/02/2019 Anemia 02/19/2017 Essential hypertension 02/19/2017 Malignant neoplasm of female breast [place] [place] 02/19/2017 Proteinuria 02/19/2017 Vitamin D deficiency 02/19/2017 Type 2 diabetes mellitus [place] [place] 07/09/2014 Acute renal failure syndrome [place] [place] [place] 11/06/2013 Benign hypertensive renal disease 11/06/2013 Stage 3 chronic kidney disease [place] [place] 11/06/2013 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 Past Medical History Past Medical History: Diagnosis Date A-fib (CMS/HCC) Cancer (CMS/HCC) Coronary artery disease Hypertension Myocardial infarct (CMS/HCC) Stroke ([facility]/HCC) Past Surgical History Past Surgical History: Procedure Laterality Date BREAST SURGERY CHOLECYSTECTOMY CORONARY ARTERY BYPASS GRAFT HYSTERECTOMY Social History Social History Socioeconomic Histor (more content not included)...[facility]06-20-2023 NoteUT Electrophysiology Consult Note Reason [...] CKD. She was recently admitted to [facility] for weakness, suspected to have a [...] stroke who presented with generalized weakness to [facility]. At [facility], EKG demonstarted a 2:1 AV block with prolonged IN interval 266. Chest x-ray demonstrated possible trace [...] rate 59. Patient was transferred to [facility] for further evaluation by cardiology. She [...] PMH: Past Medical History: Diagnosis Date A-fib ([facility]) Cancer ([facility]/HCC) Coronary artery disease Hypertension Myocardial infarct ([facility]) Stroke ([facility]) PSH: Past Surgical History: Procedure Laterality [...] chemo tablet anastrozole (more content not included)...[facility]06-14-2023 NoteUT Cardiology - [facility] Subjective Trisha Parish is a [...] September 2022 she was admitted to [facility] with weakness. She was found to [...] capsule in the morning., Disp: , Rfl: Inaura Stephy 2 Sensor kit, , Disp: , [...] 20 mg tablet (more content not included)...[facility]03-03-2023 NoteDressing removed and incision is healing well without any s/s of infection.[facility]03-03-2023 NoteHypertension is currently well controlled with addition of nifedipine, continue current med regime.[facility]03-03-2023 NoteUTP CARDIOLOGY PROGRESS NOTE HPI: [...] [address] [facility] Heart Station [address] [place] [address] [phone] (fax) Echocardiogram-[facility] Name: TRISHA PARISH Study Date: 09/11/2022 10:26 AM B/P: 125 mmHg/69 mmHg HR: 68 bpm Date of : 1945 Location: [facility] Height: 63 in. Age: 77 year(s) [...] mildly elevated right (more content not included)...[facility]03-03-2023 NotePatient is here today for hypertension. Review of Systems Cardiovascular: Positive for irregular heartbeat. Gastrointestinal: Positive for constipation. All other systems reviewed and are negative.[facility] 09-20-2022 Note-s/p dual-chamber PPM -Follow-up with device clinic within the next 2 to 3 weeksUnTri[facility]02-15-[facility]- He is hypertensive today but also has not had nifedipine -Currently takes 60 mg in the morning and 30 mg at night -We will have her start with 30 mg daily and return to clinic in 1 to 2 weeks for hypertension checkUnTriHealth [facility]02-15-2023 NoteCoronary artery disease is stable -Continue current medicationsUnTriHealth [facility]02-15-2023 Note- [id number] 5 (age, gender, history of CVA) -s/p PARISH clipping, she is on Plavix -Follow-up with device check for concerns of arrhythmiaUnTriHealth [facility]02-15-2023 Note- Follow-up with retail sales vitamin consultant regarding calcitriol [facility]02-15-2023 NoteUT Electrophysiology Consult Note Reason [...] CKD. She was recently admitted to [facility] for weakness, suspected to have a [...] to continue the medication and follow-up with PCP/retail sales vitamin consultant Her device dressing is clean dry and [...] stroke who presented with generalized weakness to [facility]. She presented with 2-day history of exertional shortness of breath and weakness with intermittent palpitations. She stated that her legs felt heavy. She denied any recent changes of medication and illness. Patient states that she does take Plavix daily. She denies any use of anticoagulation. At [facility], EKG demonstarted a 2:1 AV block with prolonged IN interval 266. Chest x-ray demonstrated possible trace [...] rate 59. Patient was transferred to [facility] for further evaluation by cardiology. She [...] regurgitation, mild to (more content not included)...[facility]02-15-2023 NotePatient here for wound check s/p device placement with Dr. Soto on 09/11/2022. She called the office yesterday to make us aware her BP has been running in the 170's-180's systolic since nifedipine was discontinued while at [facility]. Still feels palpitations. She sees nephrology out of [place]. Review of Systems Constitutional: Positive for malaise/fatigue. Cardiovascular: Positive for palpitations. All other systems reviewed and are negative.[facility] 09-12-2022 NoteCardiology Progress Note Subjective [...] Lab PROCEDURE PERFORMED: 1. Implantation of pacemaker ([email or web address]) 2. Ultrasound guided venous access INDICATIONS: 1. [...] for device interrogation and 3 months with Talent Acquisition Sourcer. Mikayla Mnocada LIVE TRUCK TECHNICIAN Division of Cardiology, [facility]- [phone] Pager- [phone] Email- [email or web address]02-06-2023 NoteDUAL CHAMBER PACEMAKER IMPLANT PROCEDURE NOTE DATE OF PROCEDURE: 09/11/2022 PERFORMING PHYSICIAN: Dr. Doe Soto CONSENT: Patient LOCATION: EP Lab PROCEDURE PERFORMED: 1. Implantation of pacemaker ([employer]) 2. Ultrasound guided venous access INDICATIONS: [...] using modified seldinger technique using a 5 Liberian micro-puncture needle on two occasions and 0.35 [...] for the device above the muscle. 6 [place]ian Safesheaths were placed over the wire. An active fixation [employer] pacing lead was then delivered through the 6Fsheath to the right ventricle. After confirmation of lead position on orthogonal views (CASILLAS and KAZAKH) to confirm septal position, the screw was activated, and the lead was placed in the right ventricular mid cavity towards the septum. After confirmation of good sensing parameters, injury pattern and pacing thresholds, 10V pacing was done and no diaphragmatic stimulation was noted. It was then secured in the pocket using three 1-0 Silk sutures. Then an active fixation [employer] lead was delivered through the 6Fsheath to the right atrial appendage. After confirmation of lead position on orthogonal views (CASILLAS and KAZAKH), the screw was activated. Good sensing parameters, [...] x 2 weeks Doe Soto MD Cardiac ElectrophysiologyOhioHealth [facility] Medical Center02-06-2023 Note Patient: Trisha Parish Procedure Information Date/Time: 09/11/22 1459 Procedure: Pacemaker DC new Location: [facility] CORD MAKER 1 EP / [facility] (Cath) Providers: Doe Soto MD Clinical information reviewed: Tobacco Allergies Meds Med Hx Surg Hx Fam Hx Soc Hx Physical Exam Airway Mallampati: II TM distance: >3 FB Neck ROM: full Cardiovascular Dental Pulmonary Abdominal Anesthesia Plan ASA 2 CSE Anesthetic plan and risks discussed with patient. Use of blood products discussed with patient who. Additional Equipment RequestsOhioHealth [facility]heastern Medical Center02-06-2023 Note Attestation signed by Matilda [...] 98 QT Interval 464 QTC CALCULATION(BAZETT) 455 R-[place] 20 T Wave [place] 14 Impression Sinus rhythm with 2nd degree A-V block (Mobitz I) Moderate voltage criteria for LVH, may be normal variant ( Sokolow-Lord , Lolo product ) Nonspecific ST abnormality Abnormal ECG [...] may be normal variant ( Sokolow-Lord , Lolo product ) Nonspecific ST abnormality Abnormal ECG [...] s/p CABG (2014 (more content not included)...[facility]02-06-2023 Note Attestation signed by [place]on [...] Parish Age - 77 y.o. - 1945 [id number] Date of Admission - 09/10/2022 11:01 AM HPI/Hospital Course Subjective Trisha Parish is a 77 y.o. female with a past medical history significant for atrial fibrillation status post maze and left atrial appendage clip, coronary artery disease status post CABG, hypertension, stroke who presented with generalized weakness to [facility]. She presented with 2-day history of exertional shortness of breath and weakness with intermittent palpitations. She stated that her legs felt heavy. She denied any recent changes of medication and illness. Patient states that she does take Plavix daily. She denies any use of anticoagulation. At [facility], EKG demonstarted a 2:1 AV block with prolonged IN interval 266. Chest x-ray demonstrated possible trace [...] rate 59. Patient was transferred to [facility] for further evaluation by cardiology. On my evaluation, patient denied chest pain shortness of breath, lightheadedness, dizziness. She did state that she continued to feel weak. Patient arrived while on dopamine infusion. However, heart rate was noted to be in the 30s to 40s. Labs at [facility] suggestive of subclinical hypothyroidism, prediabetes and [...] Results ABG: No results found for: PHART, ORD6SBI, PO2ART, CCN9WOL, IONCALART No results found for: PHVEN, CLC0FFR, PO2VEN, WKW8VKM, IONCALVEN CBC: Results from last 7 days [...] 4.0 CHLORIDE mm (more content not included)...[facility] 09-10-2022 Note Attestation signed by [...] LOSS: 5 ml Camille Millard [facility] Fellow [facility]02-03-2023 Evaluation note* Encounter Date Diagnosis [...] ultrasound thyroid from May 2022 with Trisha. [facility] Other 11-16-2021 NotePROCEDURE REPORT Specimen #: [id number] Submitting Physician: Abner Wheeler MD SPECIMEN SUBMITTED [...] determined by [facility]'s [facility] Pathology and Laboratory Medicine [place] ([facility]). It has not been cleared or approved by the FDA. 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- Primary documented in this encounter [facility] HealthcareHistory general Narrative - Reported* Type Description Date Medical History CAD in wiyot artery Medical History Diabetes mellitus ty pe 2, uncontrolled, without complications Medical History Chronic kidney disease, stage 3 unspecified Medical History Elevated glucose Medical History Right thyroid nodule Medical History Menopause Medical History Enlarged thyroid gland Medical History Anxiety, generalized Medical History Essential hypertension Surgical History CHOLECYSTECTOMY 2014 Surgical History LEFT BREAST MASTECTOMY Hospitalization History SEE SURGICAL HX [facility] Other History general Narrative - Reported* Type Description Date Medical History CAD in wiyot artery Medical History Diabetes mellitus ty pe 2, uncontrolled, without complications Medical History Chronic kidney disease, stage 3 unspecified Medical History Elevated glucose Medical History Right thyroid nodule Medical History Menopause Medical History Enlarged thyroid gland Medical History Anxiety, generalized Medical History Essential hypertension Medical History Heart attack Surgical History CHOLECYSTECTOMY 2014 Surgical History LEFT BREAST MASTECTOMY Hospitalization History SEE SURGICAL HX [facility] Other Summary Purpose Family History No Family [...] 1 Post-nasal drip (R09 .82) [facility] Referring Provider First Name Sanya Referring Provider Last Name Rivka Referring Provider Specialty Family [facility] cine Referred Organization [facility] Referred Address ,[place], [place],[address] Referred Provider Specialty Ear, Nose an d Throat Referral Priority Routine Additional Source Comments INFORMATION SOURCE (unrecogn ized section and content) DATE CREATED AUTHOR 05/01/2018 [facility] DATE CREATED AUTHOR AUTHOR'S ORGANIZ ATION 07/16/2018 [facility] DATE CREATED AUTHOR AUTHOR'S ORGANIZ ATION 06/23/2021 [facility] DATE CREATED AUTHOR AUTHOR'S ORGANIZ ATION 10/10/2022 [facility] DATE CREATED AUTHOR AUTHOR'S ORGANIZ ATION 03/09/2023 [facility] DATE CREATED AUTHOR AUTHOR'S ORGANIZ ATION 07/12/2023 [facility] DATE CREATED AUTHOR AUTHOR'S ORGANIZ ATION 10/20/2023 [facility] Special[facility] EPIC REASON FOR VISIT (unrecogniz ed section and content) Reason Comments Retinal Injection Care Teams (unrecognized sec tion and content) 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 [facility]. provides no warranty or guarantee of the accuracy or completeness of information in this document.
--- NOTE | 2023-12-02 15:21 | XR_ITS ---
The [address] [address] Patient Name: ELIJAH WELCH MRN: [id number] date: 1945 Sex: F Assigned Patient Location: ER Current Patient Location: ER Accession/Order Number: [id number] Exam Date: 12/02/2023 15:48 Report Date: 12/02/2023 16:13 At the request of: CHEN ROSAS Procedure: XR chest 2V EXAM: XR chest 2V HISTORY: epigastric abdominal pain COMPARISON: Chest x-ray 05/08/2023 and earlier. TECHNIQUE: PA, lateral chest x-ray. FINDINGS: Lungs appear clear without infiltrate or edema or other acute process. Normal heart size unchanged. Sternotomy wires and prosthetic aortic valve again noted. Mitral annular calcification. Pacemaker leads without significant change. No pleural effusion or pneumothorax. XR/XR chest 2V IMPRESSION: Stable chest x-ray, no acute findings. Electronically authenticated by: ABBEY LADD Date: 12/02/2023 16:13
--- NOTE | 2023-12-02 15:23 | ECG_ITS ---
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
--- NOTE | 2023-12-02 15:24 | ED_ITS ---
HPI HPI - General Adult General Chief complaint: Abdominal Pain Stated complaint: Abdominal Pain Time Seen by Provider: 12/02/23 15:09 Source: patient Mode of arrival: walk-in History of Present Illness HPI narrative: Patient is a 78-year-old female presents to the ER with concerns of epigastric pain, black stools. Patient states she has had epigastric discomfort for several months, had been on Pepcid from ENT for concerns of acid reflux relating to a chronic cough from a prior illness. Patient states she feels like her symptoms have worsened over the last 3 months and noting black tarry stools yesterday and today. She denies any bright red blood per rectum. She denies any chest pain, she notes some discomfort in the epigastric area and going into her back. She takes plavix per cardiology and had pig vallve placed last fall.. Patient notes that the symptoms have bothered her for some time but the dark stools prompted evaluation today in the ER. Spouse is present at bedside.Patient does not take any NSAID medication. She reports having a history of anemia in the past but has not yet had a referral to GI. Onset (ago): day(s) (2) Location: Reports abdomen (epigastric); Denies head or face Radiation: Reports back Severity: moderate Quality: Reports aching; Denies burning Pain Consistency: Reports intermittent Relieving factors: Reports none Exacerbating factors: Reports eating Associated symptoms: Denies denies other symptoms Related Data Home Medications ?Medication ?Instructions ?Recorded ?Confirmed atorvastatin 80 mg tablet 80 mg PO .qhs 02/02/23 11/05/23 carvedilol 25 mg tablet 25 mg PO Q12H 02/02/23 11/05/23 cholecalciferol (vitamin D3) 2,000 unit PO DAILY 02/02/23 11/05/23 clopidogrel 75 mg tablet 75 mg PO DAILY 02/02/23 11/05/23 docusate sodium 100 mg capsule 100 mg PO .sunday and 02/02/23 11/05/23 (Stool Softener) flash glucose scanning reader 02/02/23 11/05/23 (FreeStyle Stephy 2 Brooks) flash glucose sensor (FreeStyle 02/02/23 11/05/23 Stephy 2 Sensor kit) hydralazine 25 mg tablet 25 mg PO Q12H 02/02/23 11/05/23 lisinopril 20 mg tablet 20 mg PO DAILY hypertension 02/02/23 11/05/23 nifedipine 30 mg tablet,extended 60 mg PO DAILY 02/02/23 11/05/23 release calcitriol 0.25 mcg capsule 0.25 mcg PO Q12H 02/17/23 11/05/23 famotidine 20 mg tablet (Acid 20 mg PO DAILY 11/05/23 11/05/23 Controller) Allergies Allergy/AdvReac Type Severity Reaction Status Date / Time meperidine [From Demerol] AdvReac Mild Verified 02/01/23 14:21 Opioid HPI Opioid Management Most Recent Opioid Data: Last Pain Scale 3 02/01/23 22:30 Review of Systems ROS Constitutional Denies: fever or chills Eyes Denies: change in vision or blurry vision Ears, nose, mouth, and throat Denies: throat pain or neck pain Cardiovascular Denies: chest pain, palpitations, edema or swelling of feet/ankles Respiratory Denies: shortness of breath Gastrointestinal Reports: abdominal pain, heartburn, bloating and blood in stool ( black stools. x 2 days); Denies: nausea, vomiting, coffee grounds in vomit or diarrhea Genitourinary Denies: painful urination Musculoskeletal Reports: back pain; Denies: neck pain Integumentary/Breast Denies: rash or non-healing lesion Neurological Denies: headache Psychiatric Denies: anxiety Hematologic/Lymphatic Denies: easy bruising Allergic/Immunologic Denies: hives [facility] Medical History (Updated 12/02/23 @ 17:57 by JORDON Mar) Retinal vascular occlusion, left eye ?H34.9 - Unspecified retinal vascular occlusion (ICD-10) Cataracts, bilateral ?H26.9 - Unspecified cataract (ICD-10) H/O TIA (transient ischemic attack) and stroke ?Z86.73 - Personal history of transient ischemic attack (TIA), and cerebral infarction without residual deficits (ICD-10) Afib ?I48.91 - Unspecified atrial fibrillation (ICD-10) HLD (hyperlipidemia) ?E78.5 - Hyperlipidemia, unspecified (ICD-10) CKD stage 3 due to type 2 diabetes mellitus ?E11.22 - Type 2 diabetes mellitus with diabetic chronic kidney disease (ICD- 10) ?N18.30 - Chronic kidney disease, stage 3 unspecified (ICD-10) CAD (coronary artery disease) ?I25.10 - Atherosclerotic heart disease of [place] coronary artery without angina pectoris (ICD-10) FH: mastectomy ?Z84.89 - Family history of other specified conditions (ICD-10) Pacemaker ?Z95.0 - Presence of cardiac pacemaker (ICD-10) History of breast cancer ?Z85.3 - Personal history of malignant neoplasm of breast (ICD-10) Hypertension ?I10 - Essential (primary) hypertension (ICD-10) Diabetes 1.5, managed as type 2 ?E13.9 - Other specified diabetes mellitus without complications (ICD-10) Surgical History (Updated 09/04/23 @ 13:08 by Sirisha Macias, PASTORA) Hx of cholecystectomy ?Z90.49 - Acquired absence of other specified parts of digestive tract (ICD- 10) H/O: hysterectomy ?Z90.710 - Acquired absence of both cervix and uterus (ICD-10) History of open heart surgery ?Z98.890 - Other specified postprocedural states (ICD-10) Family History Mother Family history of diabetes mellitus Family history of hypertension Family history of myocardial infarction Social History (Updated 09/04/23 @ 12:24 by Sirisha Macias, PASTORA) Within the past year, how often did you have a drink containing alcohol: never Score interpretation: A score less than 3 is consistent with normal alcohol consumption. Smoking status: Never smoker Second hand tobacco smoke exposure: Yes Non-prescribed substance use: denies use Previous occupational history: Retired- [employer] Known occupational exposures/hazards: No Highest level of school completed/degree received: Bachelor's degree Do you want help with school or training: No Exam Narrative Exam Narrative: Nurses notes and vital signs reviewed and patient is not hypoxic. General: The patient appears well and in no apparent distress. Patient is resting comfortably on cart. Skin: Warm, dry, no pallor noted. No evidence of rash Head: Normocephalic, atraumatic Neck: Supple, trachea mid-line, no tenderness, no lymphadenopathy Eye: Pupils are equal, round and reactive to light, EOMI, no subconjunctival pallor Ears, Nose, Mouth, and Throat: TM are clear, normal light reflex, oral mucosa is moist, no posterior oropharynx erythema or hypertrophy, uvula is mid-line Cardiovascular: Regular Rate and Rhythm Respiratory: Patient is in no distress, no accessory muscle use, lungs are clear to auscultation, no wheezing, rales or rhonchi. Chest Wall: no tenderness Back: non-tender, no CVA tenderness Musculoskeletal: normal ROM, no tenderness, no swelling GI: Normal bowel sounds, + tenderness to epigastric region, minimal soreness in other quadrants. no masses appreciated. No rebound, guarding, or rigidity noted. Rectal: PASTORA Melo at bedside. Hemeoccult obtained. (neg for blood) + large noninflammed hemmroids. no gross blood, + increased rectal tone with dark green alka to brown stool. Neurological: A&O x4 Psychiatric: Cooperative Constitutional Vital Signs, click to edit/add: Last Vital Signs Temp 98 F 12/02/23 14:44 Pulse 70 12/02/23 17:26 Resp 34 H 12/02/23 17:26 BP 129/49 12/02/23 17:26 Pulse Ox 98 12/02/23 16:30 O2 Del Method Room Air 12/02/23 14:44 Course Vital Signs Vital signs: Vital Signs Temperature 98 F 12/02/23 14:44 Pulse Rate 87 12/02/23 14:44 Respiratory Rate 18 12/02/23 14:44 Blood Pressure 125/72 12/02/23 14:44 Pulse Oximetry 99 12/02/23 14:44 Oxygen Delivery Method Room Air 12/02/23 14:44 Temperature 98 F 12/02/23 14:44 Pulse Rate 70 12/02/23 17:26 Respiratory Rate 34 H 12/02/23 17:26 Blood Pressure 129/49 12/02/23 17:26 Pulse Oximetry 98 12/02/23 16:30 Oxygen Delivery Method Room Air 12/02/23 14:44 Medical Decision Making MDM Narrative Medical decision making narrative: Medicated with Protonix, Maalox and Zofran, rectal exam without evidence of bright red blood, greenish- brown stool noted dark but not black, Hemoccult was negative for stool, patient has chronic anemia. We discussed her Plavix use. She will need to have her blood work repeated or return to the ER if symptoms worsen or new symptoms develop. Patient had elevation in her lipase, she has been elevated in the past. Suspect possible acute on chronic pancreatitis. She does not use alcohol. CT of the abdomen performed without contrast due to her kidney function. Noted inflammation around her pancreas, ultrasound suggested but patient will likely need further imaging such as MRI with GI specialist. We have paged her PCP to discuss the nature of her symptoms and need for ongoing follow-up and likely referral to subspecialist. Patient thankful. She will practice a clear liquid diet, n.p.o. 6 hours before outpatient ultrasound tomorrow morning. Patient is aware she may return to the ER at any time if symptoms worsen or new symptoms develop but admits symptoms have been ongoing since August. The patient is to followup with primary care physician Sunday. or to return to the emergency department should any of the signs or symptoms worsen or new symptoms develop. Patient had questions answered. The patient agrees with the following Diagnosis and Treatment plan and the patient will be discharged home. Lab Data Lab results reviewed: Yes I reviewed the patient's lab results Labs: Lab Results 12/02/23 12/02/23 12/02/23 Range/Units 14:55 15:30 15:37 WBC 7.6 (4.0-11.0) 10^3/uL RBC 3.27 L (4.20-5.40) 10^6/uL Hgb 9.7 L (12.0-16.0) g/dL Hct 29.4 L (36.0-48.0) % MCV 89.9 (81.0-99.0) fL MCH 29.7 (26.7-34.0) pg MCHC 33.0 (29.9-35.2) g/dL RDW 14.0 (11.0-15.0) % Plt Count 124 L (150-450) 10^3/uL MPV 12.9 (9.5-13.5) fL Neut % (Auto) 77.5 H (43.0-75.0) % Lymph % (Auto) 11.7 L (20.5-60.0) % Boyd % (Auto) 6.5 (1.7-12.0) % Eos % (Auto) 3.7 (0.9-7.0) % Baso % (Auto) 0.3 (0.2-2.0) % Neut # (Auto) 5.9 (1.4-6.5) 10^3/uL Lymph # (Auto) 0.9 L (1.2-3.8) 10^3/uL Boyd # (Auto) 0.5 (0.3-0.8) 10^3/uL Eos # (Auto) 0.3 (0.0-0.7) 10^3/uL Baso # (Auto) 0.0 (0.0-0.1) 10^3/uL Abs Immat Gran (auto) 0.02 (0.00-0.03) 10^3/uL Imm/Tot Granulo (auto) 0.3 (0.0-0.5) % PT 12.0 H (9.0-11.6) sec INR 1.14 APTT 30.9 (22.3-36.2) sec Sodium 140 (136-145) mmol/L Potassium 4.2 (3.5-5.1) mmol/L Chloride 107 (98-107) mmol/L Carbon Dioxide 22.6 (21.0-32.0) mmol/L Anion Gap 14.6 BUN 53.0 H (7.0-18.0) mg/dL Creatinine 1.85 H (0.55-1.02) mg/dL Est GFR ( Amer) 32 L (>=60) Est GFR (Non-Af Amer) 26 L (>=60) BUN/Creatinine Ratio 28.6 Glucose 206 H (74-106) mg/dL Lactate 1.2 (0.4-2.0) mmol/L Calcium 9.1 (8.5-10.1) mg/dL Total Bilirubin 0.9 (0.2-1.0) mg/dL AST 31 (15-37) U/L ALT 34 (14-59) U/L Alkaline Phosphatase 119 H (46-116) U/L Troponin I High Sens 83.4 H* (4.0-51.3) pg/mL Total Protein 6.9 (6.4-8.2) g/dL Albumin 3.4 (3.4-5.0) g/dL Globulin 3.5 g/dL Albumin/Globulin Ratio 1.0 Amylase 91 (25-115) U/L Lipase 179.0 H (16.0-77.0) U/L Stool Occult Blood Negative Blood Type B Positive Antibody Screen Negative 12/02/23 Range/Units 17:12 WBC (4.0-11.0) 10^3/uL RBC (4.20-5.40) 10^6/uL Hgb (12.0-16.0) g/dL Hct (36.0-48.0) % MCV (81.0-99.0) fL MCH (26.7-34.0) pg MCHC (29.9-35.2) g/dL RDW (11.0-15.0) % Plt Count (150-450) 10^3/uL MPV (9.5-13.5) fL Neut % (Auto) (43.0-75.0) % Lymph % (Auto) (20.5-60.0) % Boyd % (Auto) (1.7-12.0) % Eos % (Auto) (0.9-7.0) % Baso % (Auto) (0.2-2.0) % Neut # (Auto) (1.4-6.5) 10^3/uL Lymph # (Auto) (1.2-3.8) 10^3/uL Boyd # (Auto) (0.3-0.8) 10^3/uL Eos # (Auto) (0.0-0.7) 10^3/uL Baso # (Auto) (0.0-0.1) 10^3/uL Abs Immat Gran (auto) (0.00-0.03) 10^3/uL Imm/Tot Granulo (auto) (0.0-0.5) % PT (9.0-11.6) sec INR APTT (22.3-36.2) sec Sodium (136-145) mmol/L Potassium (3.5-5.1) mmol/L Chloride (98-107) mmol/L Carbon Dioxide (21.0-32.0) mmol/L Anion Gap BUN (7.0-18.0) mg/dL Creatinine (0.55-1.02) mg/dL Est GFR ( Amer) (>=60) Est GFR (Non-Af Amer) (>=60) BUN/Creatinine Ratio Glucose (74-106) mg/dL Lactate (0.4-2.0) mmol/L Calcium (8.5-10.1) mg/dL Total Bilirubin (0.2-1.0) mg/dL AST (15-37) U/L ALT (14-59) U/L Alkaline Phosphatase (46-116) U/L Troponin I High Sens 79.2 H* (4.0-51.3) pg/mL Total Protein (6.4-8.2) g/dL Albumin (3.4-5.0) g/dL Globulin g/dL Albumin/Globulin Ratio Amylase (25-115) U/L Lipase (16.0-77.0) U/L Stool Occult Blood Blood Type Antibody Screen ECG Data Attestation: I personally reviewed and interpreted this ECG as follows: Interpretation: EKG interpretation: Emergency Department physician interpretation, normal sinus rhythm 1st degree av block 65 bpm, no ectopy, no ST segment elevation, normal axis. Discharge Plan Discharge Stand Alone Forms: Portal Instructions Chief Complaint: Abdominal Pain Clinical Impression: Anemia, Chronic kidney disease (CKD), Pancreatitis Patient Disposition: Home, Self-Care Time of Disposition Decision: 17:57 Condition: Good Prescriptions / Home Meds: No Action calcitriol 0.25 mcg capsule 0.25 mcg PO Q12H famotidine [Acid Controller] 20 mg tablet 20 mg PO DAILY atorvastatin 80 mg tablet 80 mg PO .qhs carvedilol 25 mg tablet 25 mg PO Q12H lisinopril 20 mg tablet 20 mg PO DAILY hydralazine 25 mg tablet 25 mg PO Q12H nifedipine 30 mg tablet extended release 60 mg PO DAILY clopidogrel 75 mg tablet 75 mg PO DAILY (DME) FreeStyle Stephy 2 Sensor Kit MISCELLANEOUS (DME) FreeStyle Stephy 2 Brooks Misc MISCELLANEOUS docusate sodium [Stool Softener] 100 mg capsule 100 mg PO .sunday and Rx Instructions: patient only takes on sunday and cholecalciferol (vitamin D3) [Vitamin D3] 2,000 unit PO DAILY Patient Comments: vitamin D deficiency Print Language: Togolese Instructions: Pancreatitis (ED) Additional Instructions: Nothing to eat for 6 hours before Ultrasound Study: [facility] ( by ER entrance) at 8:00am arrive at 7:45am Referrals: Sudha Lubin MD [Primary Care Provider] - 12/03/23
[2023-12-02 15:36] LABS: Basophils Percent Auto 0.3 % (0.2-2.0); Eosinophils Absolute Auto 0.3 10^3/uL (0.0-0.7); Eosinophils Percent Auto 3.7 % (0.9-7.0); Hematocrit 29.4 % (36.0-48.0); Hemoglobin 9.7 g/dL (12.0-16.0); Immature Granulocytes Abs Auto 0.02 10^3/uL (0.00-0.03); Immature Granulocytes Pct Auto 0.3 % (0.0-0.5); Lymphocytes Absolute Auto 0.9 10^3/uL (1.2-3.8); Lymphocytes Percent Auto 11.7 % (20.5-60.0); Mean Corpuscular Hemoglobin 29.7 pg (26.7-34.0); Mean Corpuscular Volume 89.9 fL (81.0-99.0); Mean Platelet Volume 12.9 fL (9.5-13.5); Monocytes Absolute Auto 0.5 10^3/uL (0.3-0.8); Monocytes Percent Auto 6.5 % (1.7-12.0); Neutrophils Absolute Auto 5.9 10^3/uL (1.4-6.5); Neutrophils Percent Auto 77.5 % (43.0-75.0); Platelet Count 124 10^3/uL (150-450); Red Blood Count 3.27 10^6/uL (4.20-5.40); White Blood Count 7.6 10^3/uL (4.0-11.0)
[2023-12-02 15:46] LABS: INR 1.14; Partial Thromboplastin Time 30.9 sec (22.3-36.2)
[2023-12-02 15:48] LABS: Alanine Aminotransferase 34 U/L (14-59); Albumin Level 3.4 g/dL (3.4-5.0); Alkaline Phosphatase 119 U/L (46-116); Amylase 91 U/L (25-115); Anion Gap 14.6; Aspartate Amino Transferase 31 U/L (15-37); BUN Creatinine Ratio 28.6; Bilirubin Total 0.9 mg/dL (0.2-1.0); Calcium 9.1 mg/dL (8.5-10.1); Carbon Dioxide 22.6 mmol/L (21.0-32.0); Chloride 107 mmol/L (98-107); Estimated GFR (African America 32 (>=60); Estimated GFR (Non-African Ame 26 (>=60); Globulin 3.5 g/dL; Glucose 206 mg/dL (74-106); Lactate/Lactic Acid 1.2 mmol/L (0.4-2.0); Potassium 4.2 mmol/L (3.5-5.1); Sodium 140 mmol/L (136-145); Total Protein 6.9 g/dL (6.4-8.2)
[2023-12-02 15:50] LABS: Occult Blood Negative
[2023-12-02 15:52] LABS: Troponin I High Sensitivity 83.4 pg/mL (4.0-51.3)
[2023-12-02] MEDS: 0.9 % SODIUM CHLORIDE 1,000 ML 999 ML IV (15:55)
[2023-12-02] MEDS: PANTOPRAZOLE SODIUM 40 MG VIAL IV (15:55)
[2023-12-02] MEDS: ONDANSETRON PF 4 MG/2 ML VIAL IV (15:55)
[2023-12-02] MEDS: MAALOX (MAG HYDROX/ALUMINUM HYD/SIMETH) 30 ML ORAL.SUSP PO (15:55)
--- NOTE | 2023-12-02 16:12 | CT_ITS ---
The [address] [address] Patient Name: ELIJAH WELCH MRN: [id number] date: 1945 Sex: F Assigned Patient Location: ER Current Patient Location: ER Accession/Order Number: [id number] Exam Date: 12/02/2023 16:38 Report Date: 12/02/2023 17:15 At the request of: CHEN ROSAS Procedure: CT abdomen pelvis wo con EXAM: CT abdomen pelvis wo con HISTORY: abdominal pain epigastric History breast cancer post mastectomy. COMPARISON: No prior CT. Chest x-ray 11/24/2023. TECHNIQUE: CT abdomen pelvis without contrast. FINDINGS: Lower chest: Unremarkable, no acute process. No suspicious lung lesion or pleural effusion. Pacemaker leads, which are annular calcification. ABDOMEN: Solid organ assessment limited without IV contrast, no definite liver lesion seen although areas of low attenuation noted most of which appear to be vascular. Previous cholecystectomy. The pancreas is prominent poorly defined difficult to separate from bowel. May be secondary pancreatitis or mass. Pancreatic duct appears mildly prominent the body, tail is somewhat atrophic. There is stranding and increased attenuation of the adjacent mesentery with small nodular densities which appear to be a combination of vessels and lymph nodes. Adrenal glands, spleen unremarkable. No ascites. Normal caliber aorta with moderate calcified plaque. No retroperitoneal periaortic adenopathy. Moderate gas and fluid in the stomach. No small bowel distention. Moderate gas and stool is seen in transverse colon. Decreased caliber distal descending colon pelvic colon with questionable wall thickening in the pelvic colon. Soft tissue prominence wall thickening involving the rectum number rectal lesion not excluded. Pelvis: No adenopathy or free fluid normal fluid in the bladder. MUSCULOSKELETAL: Diffuse degenerative changes lower thoracic lumbar spine without suspicious focal bone lesion. Scoliosis. Atrophic kidneys, small cystic area upper pole left. Right kidney 8.2 cm length, left 5.8 cm. No hydronephrosis, normal ureters. CT/CT abdomen pelvis wo con IMPRESSION: 1. Abnormal soft tissue prominence of the pancreas poorly defined on this noncontrast study. Cannot exclude area due to pancreatitis or pancreatic malignancy although discrete definite mass seen. Consider evaluation with ultrasound although pancreatic visualization may be limited due to adjacent bowel. Patient's kidneys are atrophic and IV contrast may be contraindicated in this patient. 2. Mildly prominent mesenteric lymph nodes and mild stranding of mesentery mid abdomen which could be secondary to pancreatitis or an unrelated finding. Can be seen with sclerosing mesenteritis. 3. Rectal wall thickening and prominent wall of sigmoid colon in the pelvis. Correlate clinically to exclude rectal mass. Electronically authenticated by: ABBEY LADD Date: 12/02/2023 17:15
[2023-12-02 17:43] LABS: Troponin I High Sensitivity 79.2 pg/mL (4.0-51.3)
== END 2023-12-02 18:29 | disposition home or self-care (01) ==
PROVIDERS: Personal Emergency Response Attendant; Emergency Provider Emergency Medicine Emergency Medical Services; PCP Family Medicine
DX: K85.90 Acute pancreatitis without necrosis or infection, unspecified (principal); D64.9 Anemia, unspecified; Z79.899 Other long term (current) drug therapy; Z79.02 Long term (current) use of antithrombotics/antiplatelets; Z86.73 Personal history of transient ischemic attack (TIA), and cerebral infarction without residual deficits; I48.91 Unspecified atrial fibrillation; E78.5 Hyperlipidemia, unspecified; E11.22 Type 2 diabetes mellitus with diabetic chronic kidney disease; N18.30 Chronic kidney disease, stage 3 unspecified; I25.10 Atherosclerotic heart disease of native coronary artery without angina pectoris; Z95.0 Presence of cardiac pacemaker; Z85.3 Personal history of malignant neoplasm of breast; I12.9 Hypertensive chronic kidney disease with stage 1 through stage 4 chronic kidney disease, or unspecified chronic kidney disease; Z90.49 Acquired absence of other specified parts of digestive tract; Z90.710 Acquired absence of both cervix and uterus; Z98.890 Other specified postprocedural states; Z95.4 Presence of other heart-valve replacement
CPT/HCPCS: 36415; 71046; 74176; 80053; 82150; 83605; 83690; 84484; 85025; 85610; 85730; 86850; 86900; 86901; 93005; 96374; 96375; 99285; G0328

== ENCOUNTER 2023-12-03 07:39 | Outpatient (OUT) | payer MEDICARE, SELFPAY ==
--- OUTSIDE RECORDS SUMMARY | 2023-12-03 07:41 | XMS_ITS | CCD ---
Author Organization [facility] Care Team Providers Care River Captain Name Role Phone WALLACE, SADI P Unavailable [...] SANYA De La Torre Primary Care Unavailable FLANNERY, MONTEZ Consulting Unavailable DIAB ., PIERRE Consulting Unavailable RIVKA, DR SANYA De La Torre Admitting Unavailable RIVKA, DR SANYA De La Torre Primary Care Unavailable RIVKA, DR SANYA De La Torre Attending Unavailable RIVKA, DR SANYA De La Torre Consulting Unavailable Jailene Quesada Admitting Unavailable Sanya Tineo Primary Care Unavailable Mikel Mir Attending Unavailable Sanya Tineo MD Primary Care Provider DIRK ONEILL Attending Unavailable ZOEY HERRING Referring Unavailable DIRK ONEILL Attending Unavailable JENNIFER MORALES Attending Unavailable SANYA TINEO Referring Unavailable JENNIFER MORALES Attending Unavailable DIRK ONEILL Attending Unavailable MARGARET ALVAREZ Referring Unavailable ALVAREZ, MARGARET Referring Unavailable TIEN, TU Referring Unavailable GANGWAERNESTO, ANDREA WU Referring Unavailab le ALVAREZ, MARGARET Referring Unavailable MOUKARBEL, TOÑO Referring Unavailable BRITTANY, MANDI Attending Unavailable MOUKARBEL, TOÑO Admitting Unavailable MOUKARBEL, TOÑO Attending Unavailable TIEN, TU Admitting Unavailable RAYJOSR Referring Unavailable HORANIBEBO Attending Unavailable ALVAREZ, MARGARET Referring Unavailable MOUKARBEL, TOÑO Referring Unavailable BRITTANY, MANDI Referring Unavailable MOUKARBEL, TOÑO Attending Unavailable WITHERETAYLOR KING Attending Unavailable MOUKARBEL, TOÑO Attending Unavailable MOUKARBEL, TOÑO Attending Unavailable GANGWANI, ANDREA WU Referring Unavailab le MOUKARBEL, TOÑO Attending Unavailable TIEN, TU Referring Unavailable MOUKARBEL, TOÑO Referring Unavailable MOUKARBEL, TOÑO Attending Unavailable MOUKARBEL, TOÑO Referring Unavailable TIEN, TU Referring Unavailable Allergies Allergy Classification Reported Allergen(s) Allergy Type Date of Onset Reaction(s) Facility (2 sources) Meperidine Drug Allergy 06-16-2009 [facility] Repository (12 sources) Meperidine; Translations: [MEPERIDINE] Drug Allergy 09-10-2022 Unknown [facility] Work Phone: (1 source) Meperidine Drug Allergy 02-17-2023 [facility] Repository (1 source) Meperidine Drug Allergy 08-28-2023 [...] more days for 5 May, Active calcitriol 0.82123 mg oral capsule (3 sources) Vitamin D3 [...] 07/24/2023 10/22/2023 Active FreeStyle Stephy 14 Day Pedro - (10 sources) FreeStyle Stephy 14 Day Pedro - as directed Active FreeStyle Stephy 14 [...] sources) Angiotensin Converting Enzyme Inhibitor Start: 03-07-20 23 take 1 tablet by mouth in the [...] Calcium Channel Martín Start: 03-07-20 End: 03-01-20 24 take 1 tablet by mouth before mealtime, [...] 07-19-2023 Chronic Acute myocardial infarction (5 sources) Myocardial infarction; Translations: [Non-ST elevation (NSTEMI) myocardial infarction] Onset: 3 07-19-2023 Chronic Anxiety disorders (13 sources) Generalized anxiety [...] dysrhythmias (4 sources) Unspecified atrial fibrillation; Translations: [Atrial fibrillation] Onset: 3 07-19-2023 Chronic Cardiac dysrhythmias (1 source) Bradycardia, unspecified; Translations: [BRADYCARDIA UNSPECIFIED] Onset: 3 Episodic Cataract (1 source) Bilateral age-related nuclear cataracts; Translations: [Age-related nuclear cataract, bilateral] Onset: 4 08-21-2023 Chronic Chronic kidney disease (20 sources) Chronic kidney disease stage 3; Translations: [Chronic kidney disease, stage 3 unspecified] Onset: 9 07-19-2023 Chronic Chronic kidney disease (8 sources) Chronic kidney disease; Translations: [Chronic kidney disease, stage 3b] Onset: 3 Chronic obstructive pulmonary disease and bronchiectasis (1 source) Bronchitis, not specified as acute or chronic Episodic Conduction disorders (7 sources) Atrioventricular block, second degree; Translations: [Cardiac pacemaker in situ] Onset: 3 07-19-2023 Chronic Coronary atherosclerosis and other heart disease (16 sources) Atherosclerosis of coronary artery without angina pectoris; Translations: [Atherosclerotic heart disease of tejon coronary artery without angina pectoris] Onset: 3 [...] or stenosis of precerebral arteries (3 sources) Carotid artery stenosis; Translations: [Occlusion and stenosis of unspecified carotid artery] Onset: 3 07-19-2023 Chronic Osteoarthritis (1 source) Unspecified osteoarthritis, unspecified site; Translations: [UNSPECIFIED OSTEOARTHRITIS UNS SITE] Onset: 3 Chronic Other aftercare (1 source) Other half-way (current) drug therapy; Translations: [OTH USP CURRENT DRUG THERAPY] Onset: 3 Episodic Other [...] associated with dizziness or vertigo (3 sources) Postural dizziness; Translations: [Dizziness and giddiness] Onset: 02-05-2023 07-19-2023 Episodic Coronary atherosclerosis and other heart disease [...] Test Name Value Interpretation Reference Range Facility Office Visiton 11-30-2023 Follow-up visit [id number] Trisha Parish 1945 F Date Provider Department Center 11/30/2023 Carla-TOÑO BALBUENA [facility] No family history on file Level of Service:36660 [place] OFFICE/OUTPATIENT ESTABLISHED LOW MDM 20 MIN Reason for Visit and Comments: Follow-up [391682] - 6 months [facility] Left eye Ophthalmologic moira tmenton 08-28-2023 [facility] Radiology Study observation (narrative) [facility] Healthcare Follow-Upon 05-18-2023 Follow-Up [id number] Trisha Parish 1945 F Date Provider Department Center 05/18/2023 TOÑO SIMPSON [facility] No family history on file Level of Service:89811 [place] OFFICE/OUTPATIENT ESTABLISHED LOW MDM 20-29 MIN Reason for Visit and Comments: Post-op TAVR [730] [facility] Office Visiton 04-11-2023 Follow-up visit [id number] Trisha Parish 1945 F Date Provider Department Center 04/11/[address] [facility] No family history on file Level of Service:56284 [place] OFFICE/OUTPATIENT ESTABLISHED MOD MDM 30-39 MIN Reason for Visit and Comments: Follow-up [375234] - 1 week F/U [facility] Documentationon 04-05-2023 Documentation [id number] Trisha Parish 1945 F Date Provider Department Center 04/05/2023 389-LINA LAMAS [facility] No family history on file Reason for Visit and Comments: Post-op [483] [facility] 30on 04-04-2023 30 Daily Case Managemen [...] Score: PT Recommendations: OT Recommendations: New Consults: [facility] 30 The patient is Moder ately [...] and maintained or improved Outcome: Progressing Normal [facility] 30 The patient is Moder [...] and maintained or improved Outcome: Progressing Normal [facility] B-TYPE NATRIURETIC PEPTIDEon 04-04-2022 Natriuretic peptide B (Bld) [Mass/Vol] 213 pg/mL High 0-100 [facility] Comment on above: Performed By: #### L [id number] #### [facility] ([facility]) [address] [place] [address] BASIC METABOLIC PANELon 03-08 Anion gap [Moles/Vol] 11 mmol/L Normal 7-20 [facility] Comment on above: Performed By: #### L [id number] #### [facility] ([facility]) [address] [place] [address] Calcium [Mass/Vol] 8.7 mg/dL Normal 8.6-10.3 [facility] Comment on above: Performed By: #### L [id number] #### [facility] ([facility]) [address] [place] [address] Chloride [Moles/Vol] 109 mmol/L High 98-107 [facility] Comment on above: Performed By: #### L [id number] #### [facility] ([facility]) [address] [place] [address] CO2 [Moles/Vol] 20 mmol/L Low 21-31 [facility] Comment on above: Performed By: #### L [id number] #### [facility] [address] [place] [address] Creatinine [Mass/Vol] 1.58 mg/dL High 0.60-1.20 [facility] Comment on above: Performed By: #### L [id number] #### [facility] [address] [place] [address] GLOMERULAR FILTRATION RATE ML/MIN/1.73 SQ M.PREDICTED 33.3 mL/min/1.73m*2 Low >60.[address] [facility] Comment on above: Result Comment: [facility]???s estimated glomerular filtration rate (eGFR) [...] group of individuals. Performed By: #### L [id number] #### [facility] ([facility]) [address] [place] [address] Glucose [Mass/Vol] 140 mg/dL High 70-100 [facility] Comment on above: Performed By: #### L [id number] #### [facility] [address] [place] [address] Potassium [Moles/Vol] 4.1 mmol/L Normal 3.5-5.1 [facility] Comment on above: Performed By: #### L [id number] #### [facility] [address] [place] [address] Sodium [Moles/Vol] 136 mmol/L Normal 136-145 [facility] Comment on above: Performed By: #### L [id number] #### [facility] [address] [place] [address] Urea nitrogen [Mass/Vol] 33 mg/dL High 7-25 [facility] Comment on above: Performed By: #### L [id number] #### [facility] ([facility]) [address] [place] [address] UREA NITROGEN/CREATININE (MASS RATIO) IN SER/PLAS 20.9 Normal [facility] Comment on above: Performed By: #### L [id number] #### [facility] ([facility]) [address] [place] [address] Anion gap [Moles/Vol] 13 mmol/L Normal 7-20 [facility] Comment on above: Performed By: #### L [id number] #### [facility] ([facility]) [address] [place] [address] Calcium [Mass/Vol] 8.9 mg/dL Normal 8.6-10.3 [facility] Comment on above: Performed By: #### L [id number] #### [facility] [address] [place] [address] Chloride [Moles/Vol] 110 mmol/L High 98-107 [facility] Comment on above: Performed By: #### L [id number] #### [facility] ([facility]) [address] [place] [address] CO2 [Moles/Vol] 19 mmol/L Low 21-31 [facility] Comment on above: Performed By: #### L [id number] #### [facility] ([facility]) [address] [place] [address] Creatinine [Mass/Vol] 1.61 mg/dL High 0.60-1.20 [facility] Comment on above: Performed By: #### L [id number] #### [facility] ([facility]) [address] [place] [address] GLOMERULAR FILTRATION RATE ML/MIN/1.73 SQ M.PREDICTED 32.6 mL/min/1.73m*2 Low >60.[address] [facility] Comment on above: Result Comment: [facility]???s estimated glomerular filtration rate (eGFR) [...] of individuals. Performed By: #### L [id number] #### [facility] ([facility]) [address] [place] [address] Glucose [Mass/Vol] 95 mg/dL Normal 70-100 [facility] Comment on above: Performed By: #### L [id number] #### [facility] ([facility]) [address] [place] [address] Potassium [Moles/Vol] 4.2 mmol/L Normal 3.5-5.1 [facility] Comment on above: Performed By: #### L [id number] #### [facility] ([facility]) [address] [place] [address] Sodium [Moles/Vol] 138 mmol/L Normal 136-145 [facility] Comment on above: Performed By: #### L [id number] #### [facility] [address] [place] [address] Urea nitrogen [Mass/Vol] 34 mg/dL High 7-25 [facility] Comment on above: Performed By: #### L [id number] #### [facility] ([facility]) [address] [place] [address] UREA NITROGEN/CREATININE (MASS RATIO) IN SER/PLAS 21.1 Normal [facility] Comment on above: Performed By: #### L [id number] #### [facility] [address] [place] [address] CBCon 04-04-2023 Erythrocyte distribution width (RBC) [Ratio] 14.6 % Normal 11.5-15.0 [facility] Comment on above: Performed By: #### L [id number] #### [facility] ([facility]) [address] [place] [address] ERYTHROCYTE MEAN CORPUSCULAR HEMOGLOBIN CONCENTRATION (G/DL) BY AUTOMATED 32.8 g/dL Normal 32.0-35.[address] [facility] Comment on above: Performed By: #### L [id number] #### [facility] ([facility]) [address] [place] [address] Hematocrit (Bld) [Volume fraction] 30.8 % Low 36.0-48.0 [facility] Comment on above: Performed By: #### L [id number] #### [facility] ([facility]) [address] [place] [address] Hemoglobin (Bld) [Mass/Vol] 10.1 g/dL Low 12.0-15.0 [facility] Comment on above: Performed By: #### L [id number] #### [facility] ([facility]) [address] [place] [address] MCH (RBC) [Entitic mass] 29.3 pg Normal 27.0-33.0 [facility] Comment on above: Performed By: #### L [id number] #### [facility] ([facility]) [address] [place] [address] MCV (RBC) [Entitic vol] 89.3 fL Normal 82.0-98.0 [facility] Comment on above: Performed By: #### L [id number] #### [facility] ([facility]) [address] [place] [address] PLATELETS (10*3/UL) IN BLOOD AUTOMATED COUNT 126 10*3/uL Low 150-400 [facility] Comment on above: Performed By: #### L [id number] #### [facility] ([facility]) [address] [place] [address] RBC (Bld) [#/Vol] 3.45 10*6/uL Low 3.80-5.00 [facility] Comment on above: Performed By: #### L [id number] #### [facility] ([facility]) [address] [place] [address] WBC (Bld) [#/Vol] 5.60 10*3/uL Normal 4.00-10.60 [facility] Comment on above: Performed By: #### L [id number] #### [facility] ([facility]) [address] [place] [address] DSon 04-04-2023 DS ----- ----- Attestation signed [...] Medications These [facility] [address] [place] [address] [facility] [place] [address], [facility] [address] acetaminophen 325 mg tablet aspirin 81 mg [...] direct detection a (more content not included)... Normal [facility] NURSNOTEon 04-04-2023 NURSNOTE Pt discharged home w ith by car [facility] 3004-03-2023 30 The patient is Moder ately Stable [...] and maintained or improved Outcome: Progressing Normal [facility] HPon 04-03-2023 HP H&P reviewed. The pa vanessa [...] she is brought today for the procedure. [facility] MRSA/MSSA DNA NASALon 2022 MRSA DNA Negative Normal Negative [facility] Comment on above: Order Comment: [...] preclude nasal colonization. Performed By: #### L [id number] ####[facility] ([facility])[address] [place] [address] MSSA DNA Negative Normal Negative [facility] Comment on above: Order Comment: [...] preclude nasal colonization. Performed By: #### L [id number] ####[facility] ([facility])[address] [place] [address] NURSNOTEon 04-03-2023 NURSNOTE Report called to Kameron hay RN. He denies questions/concerns. Normal [facility] TYPE AND SCREENon 04-03-2023 AB SCREEN Negative Normal [facility] Comment on above: Performed By: #### L [id number] #### [facility] ([facility]) [address] [place] [address] ABO group Nom (Bld) B Normal [facility] Comment on above: Performed By: #### L [id number] #### [facility] ([facility]) [address] [place] [address] RH TYPE IN BLOOD Positive Normal [facility] Comment on above: Performed By: #### L [id number] #### [facility] ([facility]) [address] [place] [address] Orders Onlyon 03-22-2023 Orders Only [id number] Trisha Parish 1945 F Date Provider Department Center 03/22/2023 MARGARET COLLINS [facility] C[facility] No family history on file Normal [facility] HPon 2023 [facility] Cardiology - [facility] Subjective Trisha Parish is a [...] with presyncope NSTEMI (non-ST elevated myocardial infarction) ([facility]) Hx of CABG Severe aortic stenosis [...] In September 2022 she was admitted to [facility] with weakness. She was found to have [...] carvedilol (Co (more content not included)... Normal [facility] Office Visiton 2023 Follow-up visit [id number] Trisha Parish E 1945 F Date Provider Department Center 2023 TOÑO SIMPSON [facility] No family history on file Level of Service:22529 [place] OFFICE/OUTPATIENT ESTABLISHED HIGH MDM 40-54 MIN Normal [facility] ANEDale 02-23-2023 ANES ----- ----- Attestation signed [...] 02/23/23 1030 Procedure: TRANSESOPHAGEAL ECHO (ELENA) Location: [facility] Heart and Vascular Center Vascular Lab Clinical [...] to blood products. Additional Equipment Requests Normal [facility] 02-23-2023 ----- ----- Attestation signed by Matilda [...] there are no changes to the H&P. [facility] NURSNOTEon 02-23-2023 NURSNOTE Pt performed and pas sed bedside swallow study test. RN educated pt on d/c instructions. RN encouraged pt to voice any questions or concerns. Pt verbalizes no questions or concerns at this time. Pt was wheeled off of unit with all of belongings. [facility] HPon 02-21-2023 Cardiology Clinic No te [...] renal failure syndrome (CMS/HCC) Anemia Atrial fibrillation ([facility]/HCC) Benign hypertensive renal disease Carotid artery [...] (CMS/HCC) Pre-operative cardiovascular examination, recent myocardial infarction ([facility]/HCC) Cardiac pacemaker in situ Postural dizziness with presyncope NSTEMI (non-ST elevated myocardial infarction) ([facility]/HCC) Hx of CABG Severe aortic stenosis No family history on file. Social History Tobacco Use Smoking status: Never Smokeless tobacco: Never Substance Use Topics Alcohol use: Never Drug use: Never Update: 02/21/2023 She was hospitalized at [facility] for 3 days after presenting with dizziness [...] other elevated She was hospitalized 02/04-02/07/23 at [facility] and underwent coronary angiography and right heart [...] 6.44 02/06 (more content not included)... Normal [facility] Office Visiton 02-21-2023 Follow-up visit [id number] Trisha Parish 1945 F Date Provider Department Center 02/21/2023 [id number] [facility] No family history on file Level of Service:23017 NC OFFICE/OUTPATIENT ESTABLISHED MOD MDM 30-39 MIN Reason for Visit and Comments: Follow-up [[id number]] - Pt discharge from hospital 02/20/23 for high potassium , dizziness Normal [facility] Basic Metabolic Panelon 02-03 Anion gap [Moles/Vol] 10.7 mmol/L Normal 6.0-15.0 [facility] Comment on above: Performed By: #### B MP ####[address] [place] [address] [facility] Calcium [Mass/Vol] 8.4 mg/dL Low 8.6-10.3 [facility] Comment on above: Performed By: #### B MP ####[address] [place] [address] [place] Chloride [Moles/Vol] 109 mmol/L High 98-107 [facility] Comment on above: Performed By: #### B MP ####[address] [address] [facility] CO2 [Moles/Vol] 22.7 mmol/L Normal 21.0-31.[address] [facility] Comment on above: Performed By: #### B MP ####[address] [address] [place] Creatinine [Mass/Vol] 1.68 mg/dL High 0.60-1.20 [facility] Comment on above: Performed By: #### B MP ####[address] [address] [facility] Creatinine Clr Calc Pharmacy 24.22 Normal [facility] Comment on above: Result Comment: PERF ORMED BY: [facility] [address] [place] [address] PATHOLOGIST SOLUTION MAKER MELISSA QUINN M.D. Performed By: #### B MP ####[address] [address] [place] GFR/1.73 sq M.predicted MDRD (S/P/Bld) [Vol rate/Area] 31.134 mL/min/{1.73_m2} Normal [facility] Comment on above: Performed By: #### B MP ####[address] [place] [address] [facility] Glucose [Mass/Vol] 94 mg/dL Normal 70-100 [facility] Comment on above: Result Comment: [place] Glucose Reference Range is dependent on time and content of last meal. Glucose of more than 200 mg/dL in a nonstressed, ambulatory subject supports the diagnosis of Diabetes Mellitus. ADA recommended reference range Performed By: #### B MP ####[id number] [facility] Potassium [Moles/Vol] 4.4 mmol/L Normal 3.5-5.1 [facility] Comment on above: Performed By: #### B MP ####[place] [id number] [facility] Sodium [Moles/Vol] 138 mmol/L Normal 136-145 [facility] Comment on above: Performed By: #### B MP ####[id number] [facility] Urea nitrogen [Mass/Vol] 34 mg/dL High 7- [facility] Comment on above: Performed By: #### B MP ####[address] [place] [id number] [facility] Glucose Poct Glucometerson 0 02-20-2023 Glucose [Mass/Vol] 92 mg/dL Normal [facility] Comment on above: Result Comment: [facility] Glucose Reference Range is dependent on time and content of last meal. Glucose of more than 200 mg/dL in a nonstressed, ambulatory subject supports the diagnosis of Diabetes Mellitus. PERFORMED BY: [facility] [address] [id number] PATHOLOGIST SOLUTION MAKER MELISSA QUINN M.D. Performed By: #### G LORENZO ####Point of Care testing, Basic Metabolic Panelon - Anion gap [Moles/Vol] 9.8 mmol/L Normal 6.0-15.0 [facility] Comment on above: Performed By: #### B MP #### [facility] [id number] [facility] Calcium [Mass/Vol] 8.4 mg/dL Low 8.6-10.3 [facility] Comment on above: Performed By: #### B MP #### [facility] [address] [place] [address] [place] Chloride [Moles/Vol] 108 mmol/L High 98-107 [facility] Comment on above: Performed By: #### B MP #### [facility] [address] CO2 [Moles/Vol] 25.3 mmol/L Normal 21.0-31.[address] [facility] Comment on above: Performed By: #### B MP #### [address] Creatinine [Mass/Vol] 1.62 mg/dL High 0.60-1.20 [facility] Comment on above: Performed By: #### B MP #### [place] [address] [place] Creatinine Clr Calc Pharmacy 25.11 Normal [facility] Comment on above: Result Comment: PERF ORMED BY: [place] [address] PATHOLOGIST SOLUTION MAKER MELISSA QUINN M.D. Performed By: #### B MP #### [place] [address] [place] GFR/1.73 sq M.predicted MDRD (S/P/Bld) [Vol rate/Area] 32.523 mL/min/{1.73_m2} Normal [facility] Comment on above: Performed By: #### B MP #### [place] [address] [place] Glucose [Mass/Vol] 91 mg/dL Normal 70-100 [facility] Comment on above: Result Comment: [place] Glucose Reference Range is dependent on time and content of last meal. Glucose of more than 200 mg/dL in a nonstressed, ambulatory subject supports the diagnosis of Diabetes Mellitus. ADA recommended reference range Performed By: #### B MP #### [facility] [address] [place] [address] [place] Potassium [Moles/Vol] 4.1 mmol/L Normal 3.5-5.1 [facility] Comment on above: Performed By: #### B MP #### [facility] [address] Sodium [Moles/Vol] 139 mmol/L Normal 136-145 [facility] Comment on above: Performed By: #### B MP #### [facility] [address] Urea nitrogen [Mass/Vol] 34 mg/dL High 7-25 [facility] Comment on above: Performed By: #### B MP #### [facility] [address] [place] [address] Glucose Poct Glucometerson 0 02-19-2023 Glucose [Mass/Vol] 143 mg/dL Normal [facility] Comment on above: Result Comment: [facility] Glucose Reference Range is dependent on time and content of last meal. Glucose of more than 200 mg/dL in a nonstressed, ambulatory subject supports the diagnosis of Diabetes Mellitus. PERFORMED BY: [place] [address] PATHOLOGIST SOLUTION MAKER MELISSA QUINN M.D. Performed By: #### G LULS #### Point of Care testing , Glucose [Mass/Vol] 101 mg/dL Normal [facility] Comment on above: Result Comment: [facility] Glucose Reference Range is dependent on time and content of last meal. Glucose of more than 200 mg/dL in a nonstressed, ambulatory subject supports the diagnosis of Diabetes Mellitus. PERFORMED BY: [place] [address] PATHOLOGIST SOLUTION MAKER MELISSA QUINN M.D. Performed By: #### G LULS #### Point of Care testing , US renal BIon 02-19-2023 US renal BI [facility] [place] [address] [place], [place] [id number] Ultrasound Report Signed Patient: Trisha Parish MR#: [id number] : 1945 Acct:[id number] Age/Sex: 77 / F ADM Date: 02/17/23 Loc: Room: [address] [place] [address] Type: ADM IN Attending Dr: Mikel Mir MD Ordering Provider: Mikel Mir MD Date of Service: 02/19/23 US/US renal BI: JASMIN r/o Mason or obstruction Copies to: Mikel Mir MD [...] findings. Impression dictated by: Baldo Quintanilla Jr., D.ORobert02/19/2023 3:58 PM Dictation Location: [place] [address] Tech: Jenna Corado Transcribed By: LETITIA 02/19/23 1558 Dictated By: Baldo Quintanilla Jr, DO 02/19/23 1557 Signed By: 02/19/23 1558 Normal [facility] Coagulation Profileon 2022 aPTT Coag (Bld) [Time] 31.5 s Normal 25.1-36.5 [facility] Comment on above: Result Comment: PERF ORMED BY: [facility] [address] [place] [address] PATHOLOGIST SOLUTION MAKER MELISSA QUINN M.D. Performed By: #### C MP, MG, PP, CBCNO ####[facility] [id number] [place] [address] [facility] INR Coag (PPP) [Relative time] 1.3 {INR} Normal [facility] Comment on above: Result Comment: INR Therapeutic [...] By: #### C MP, MG, PP, CBCNO ####[address] PT Coag (PPP) [Time] 15.2 s High 9.0-12.9 [facility] Comment on above: Performed By: #### C MP, MG, PP, CBCNO ####[address] Comprehensive Metabolic Pane shima 02-18-2023 Albumin [Mass/Vol] 3.5 g/dL Normal 3.5-5.7 [facility] Comment on above: Performed By: #### C MP, MG, PP, CBCNO ####[address] Albumin/Globulin [Mass ratio] 1.3 {ratio} Normal [facility] Comment on above: Performed By: #### C MP, MG, PP, CBCNO ####[address] ALP [Catalytic activity/Vol] 83 U/L Normal 34-104 [facility] Comment on above: Performed By: #### C MP, MG, PP, CBCNO ####[address] ALT [Catalytic activity/Vol] 13 U/L Normal 7-52 [facility] Comment on above: Performed By: #### C MP, MG, PP, CBCNO ####[address] Anion gap [Moles/Vol] 11.0 mmol/L Normal 6.0-15.0 [facility] Comment on above: Performed By: #### C MP, MG, PP, CBCNO ####[address] AST [Catalytic activity/Vol] 16 U/L Normal 13-39 [facility] Comment on above: Performed By: #### C MP, MG, PP, CBCNO ####[address] Bilirubin [Mass/Vol] 0.7 mg/dL Normal 0.3-1.0 [facility] Comment on above: Performed By: #### C MP, MG, PP, CBCNO ####[address] Calcium [Mass/Vol] 8.4 mg/dL Low 8.6-10.3 [facility] Comment on above: Performed By: #### C MP, MG, PP, CBCNO ####[address] Chloride [Moles/Vol] 108 mmol/L High 98-107 [facility] Comment on above: Performed By: #### C MP, MG, PP, CBCNO ####[address] CO2 [Moles/Vol] 24.4 mmol/L Normal 21.0-31.[address] [facility] Comment on above: Performed By: #### C MP, MG, PP, CBCNO ####[address] Creatinine [Mass/Vol] 1.91 mg/dL High 0.60-1.20 [facility] Comment on above: Performed By: #### C MP, MG, PP, CBCNO ####[address] Creatinine Clr Calc Pharmacy 21.30 [facility] Comment on above: Performed By: #### C MP, MG, PP, CBCNO ####[address] GFR/1.73 sq M.predicted MDRD (S/P/Bld) [Vol rate/Area] 26.691 mL/min/{1.73_m2} [facility] Comment on above: Performed By: #### C MP, MG, PP, CBCNO ####[address] Globulin (S) [Mass/Vol] 2.7 g/dL Normal [facility] Comment on above: Performed By: #### C MP, MG, PP, CBCNO ####[place] [id number] [address] Glucose [Mass/Vol] 92 mg/dL Normal 70-100 [facility] Comment on above: Result Comment: [place] Glucose Reference Range is dependent on time and content of last meal. Glucose of more than 200 mg/dL in a nonstressed, ambulatory subject supports the diagnosis of Diabetes Mellitus. ADA recommended reference range Performed By: #### C MP, MG, PP, CBCNO ####[place] [id number] [address] Potassium [Moles/Vol] 4.4 mmol/L Normal 3.5-5.1 [facility] Comment on above: Performed By: #### C MP, MG, PP, CBCNO ####[address] Protein [Mass/Vol] 6.2 g/dL Low 6.4-8.9 [facility] Comment on above: Performed By: #### C MP, MG, PP, CBCNO ####[place] [id number] [address] Sodium [Moles/Vol] 139 mmol/L Normal 136-145 [facility] Comment on above: Performed By: #### C MP, MG, PP, CBCNO ####[address] Urea nitrogen [Mass/Vol] 35 mg/dL High 7-25 [facility] Comment on above: Performed By: #### C MP, MG, PP, CBCNO ####[place] [id number] [address] Dipstick and Microscopicon 0 02-18-2023 Appearance (U) Clear Normal Clear [facility] Comment on above: Order Comment: Name Collection Type:: Clean-Voided Midstream Performed By: #### A DDONUAPLUS, CUU #### [facility] [address] [place] [address] [place] Bacteria,Urine None Seen Normal None Seen [facility] Comment on above: Order Comment: Name Collection Type:: Clean-Voided Midstream Performed By: #### A DDONUAPLUS, CUU #### [facility] [address] [place] [address] [place] Bilirubin,Urine Negative Normal Negative [facility] Comment on above: Order Comment: Name Collection Type:: Clean-Voided Midstream Performed By: #### A DDONUAPLUS, CUU #### [place] [address] [place] Color (U) Yellow Normal Yellow [facility] Comment on above: Order Comment: Name Collection Type:: Clean-Voided Midstream Performed By: #### A DDONUAPLUS, CUU #### [place] [address] [place] Glucose Ql (U) Normal Normal Normal [facility] Comment on above: Order Comment: Name Collection Type:: Clean-Voided Midstream Performed By: #### A DDONUAPLUS, CUU #### [place] [address] [place] Hyaline Casts,Urine None Seen Normal 0-8 [facility] Comment on above: Order Comment: Name Collection Type:: Clean-Voided Midstream Result Comment: PERF ORMED BY: [place] [address] PATHOLOGIST SOLUTION MAKER MELISSA QUINN M.D. Performed By: #### A DDONUAPLUS, CUU #### [facility] [address] [place] [address] [place] Ketones Ql (U) Negative Normal Negative [facility] Comment on above: Order Comment: Name Collection Type:: Clean-Voided Midstream Performed By: #### A DDONUAPLUS, CUU #### [facility] [address] [place] [address] [place] Leukocyte esterase Test strip Ql (U) 3+ High Negative [facility] Comment on above: Order Comment: Name Collection Type:: Clean-Voided Midstream Performed By: #### A DDONUAPLUS, CUU #### [place] [address] [place] Nitrite,Urine Negative Normal Negative [facility] Comment on above: Order Comment: Name Collection Type:: Clean-Voided Midstream Performed By: #### A DDONUAPLUS, CUU #### [address] Occult Blood,Urine Negative Normal Negative [facility] Comment on above: Order Comment: Name Collection Type:: Clean-Voided Midstream Result Comment: PERF ORMED BY: [place] [address] PATHOLOGIST SOLUTION MAKER MELISSA QUINN M.D. Performed By: #### A DDONUAPLUS, CUU #### [address] pH (U) 7.5 [pH] Normal 5.0-9.0 [facility] Comment on above: Order Comment: Name Collection Type:: Clean-Voided Midstream Performed By: #### A DDONUAPLUS, CUU #### [place] [address] [place] Protein,Urine Negative Normal Negative [facility] Comment on above: Order Comment: Name Collection Type:: Clean-Voided Midstream Performed By: #### A DDONUAPLUS, CUU #### [address] RBC LM.HPF (Urine sed) [#/Area] 0 /[HPF] Normal 0-4 [facility] Comment on above: Order Comment: Name Collection Type:: Clean-Voided Midstream Performed By: #### A DDONUAPLUS, CUU #### [place] [address] [place] Specificy [place],Urine 1.006 Normal 1.001-1.030 [facility] Comment on above: Order Comment: Name Collection Type:: Clean-Voided Midstream Performed By: #### A DDONUAPLUS, CUU #### [place] [address] [place] Squamous Epithelial Cell,Urine None Seen Normal 0-2 [facility] Comment on above: Order Comment: Name Collection Type:: Clean-Voided Midstream Performed By: #### A DDONUAPLUS, CUU #### [facility] [address] [place] [id number] [facility] Urobilinogen,Urine Normal Normal Normal [facility] Comment on above: Order Comment: Name Collection Type:: Clean-Voided Midstream Performed By: #### A DDONUAPLUS, CUU #### [facility] [address] [place], [place] [address] [facility] WBC,Urine 5-9 High 0-4 [facility] Comment on above: Order Comment: Name Collection Type:: Clean-Voided Midstream Performed By: #### A DDONUAPLUS, CUU #### [facility] [address] [place], [place] [address] [facility] ECG 12 lead ECGon 02-18-2023 ECG 12 lead ECG [facility] [place] [address] [place] [address] Electrocardiograph Report Signed Patient: Trisha Parish MR#: [id number] : 1945 Acct:[id number] Age/Sex: 77 / F ADM Date: 02/17/23 Loc: Room: [address] [place] [address] Type: ADM IN Attending Dr: Kevin Mejia [...] Nessa Abdi MD 0 02/18/23 1047 Normal [facility] Glucose Poct Glucometerson 0 02-18-2023 Glucose [Mass/Vol] 94 mg/dL Normal [facility] Comment on above: Result Comment: [place] Glucose Reference Range is dependent on time and content of last meal. Glucose of more than 200 mg/dL in a nonstressed, ambulatory subject supports the diagnosis of Diabetes Mellitus. PERFORMED BY: [facility] [address] [place] [address] PATHOLOGIST SOLUTION MAKER MELISSA QUINN M.D. Performed By: #### G LULS #### Point of Care testing , Glucose [Mass/Vol] 194 mg/dL Normal [facility] Comment on above: Result Comment: [facility] Glucose Reference Range is dependent on time and content of last meal. Glucose of more than 200 mg/dL in a nonstressed, ambulatory subject supports the diagnosis of Diabetes Mellitus. PERFORMED BY: [place] [address] PATHOLOGIST SOLUTION MAKER MELISSA QUINN M.D. Performed By: #### G LULS #### Point of Care testing , Hemogram CBC Without Diffon 02-18-2023 Erythrocyte distribution width (RBC) [Ratio] 14.4 % Normal 11.9-15.3 [facility] Comment on above: Performed By: #### C MP, MG, PP, CBCNO #### [facility] [address] [place] [address] Hematocrit (Bld) [Volume fraction] 32.7 % Low 34.0-46.4 [facility] Comment on above: Performed By: #### C MP, MG, PP, CBCNO #### [facility] [address] [place] [address] Hemoglobin (Bld) [Mass/Vol] 10.8 g/dL Low 11.8-15.4 [facility] Comment on above: Performed By: #### C MP, MG, PP, CBCNO #### [place] [address] [place] MCH (RBC) [Entitic mass] 28.8 pg Normal 24.7-34.3 [facility] Comment on above: Performed By: #### C MP, MG, PP, CBCNO #### [address] MCV (RBC) [Entitic vol] 87.0 fL Normal 80-100 [facility] Comment on above: Performed By: #### C MP, MG, PP, CBCNO #### [address] Mean Corpuscular HGB Conc 33.1 g/dL Normal 32.0-35.0 [facility] Comment on above: Performed By: #### C MP, MG, PP, CBCNO #### [address] Platelet mean volume (Bld) [Entitic vol] 10.2 fL Normal 6.3-10.7 [facility] Comment on above: Result Comment: PERF ORMED BY: [place] [address] PATHOLOGIST SOLUTION MAKER MELISSA QUINN M.D. Performed By: #### C MP, MG, PP, CBCNO #### [address] Platelets (Bld) [#/Vol] 185 10*3/uL Normal 150-450 [facility] Comment on above: Performed By: #### C MP, MG, PP, CBCNO #### [address] RBC (Bld) [#/Vol] 3.76 10*6/uL Normal 3.60-5.00 [facility] Comment on above: Performed By: #### C MP, MG, PP, CBCNO #### [address] WBC (Bld) [#/Vol] 7.2 10*3/uL Normal 3.8-11.6 [facility] Comment on above: Performed By: #### C MP, MG, PP, CBCNO #### [facility] [address] [place] [id number] [facility] Magnesiumon 02-18-2023 Magnesium [Mass/Vol] 1.9 mg/dL Normal 1.9-2.7 [facility] Comment on above: Result Comment: PERF ORMED BY: [place] [address] PATHOLOGIST SOLUTION MAKER MELISSA QUINN M.D. Performed By: #### C MP, MG, PP, CBCNO ####[facility] [id number] [place] [id number] [facility] Troponin I High Sensitivityo n 02-18-2023 Troponin I High Sensitivity 55.0 pg/mL Off scale high 0.0-15.0 [facility] Comment on above: Result Comment: Crit ical Result : Called to and read back by: ROYAL DAILY at: 02/18/2023 07:39:39 by:[id number] PERFORMED BY: [place] [address] PATHOLOGIST SOLUTION MAKER MELISSA QUINN M.D. Performed By: #### H S TROP #### [facility] [address] [place], [place] [id number] [facility] Urine Cultureon 02-18-2023 Bacteria identified Cx Nom (U) >100,000 colonies/ml mixed bacterial skin contaminants 2 Days PERFORMED BY: [place] [address] PATHOLOGIST SOLUTION MAKER MELISSA QUINN M.D. Normal [facility] Comment on above: Performed By: #### A DDONUADINAH, CUU #### [facility] [address] [place] [id number] [place] Telephoneon 02-16-2023 Telephone [phone] Trisha Parish 1945 F Date Provider Department Center 02/16/2023 WILY ASHLEY [facility] VAS LAB [facility] No family history on file Normal [facility] Orders Onlyon 02-09-2023 Orders Only [id number] Trisha Parish 1945 F Date Provider Department Center 02/09/2023 MARGARET COLLINS [facility] CARD DE Heart[facility]AS No family history on file Normal [facility] 30on 02-07-2023 30 The patient is Moder ately Stable - Low risk of patient condition declining or worsening The patient's goals for the shift include comfort The clinical goals for the shift include VSS Over the shift, the patient did not make progress toward the following goals. Barriers to progression include . Recommendations to address these barriers include . Normal [facility] 30 The patient is Moder ately Stable - Low risk of patient condition declining or worsening The patient's goals for the shift include comfort, rest The clinical goals for the shift include stable Over the shift, the patient did not make progress toward the following goals. Barriers to progression include . Recommendations to address these barriers include . Normal [facility] BASIC METABOLIC PANELon 07 Anion gap [Moles/Vol] 10 mmol/L Normal 7-20 [facility] Comment on above: Performed By: #### L [id number] #### [facility] ([facility]) [address] [place] [address] Calcium [Mass/Vol] 8.6 mg/dL Normal 8.6-10.3 [facility] Comment on above: Performed By: #### L [id number] #### [facility] ([facility]) [address] [place] [address] Chloride [Moles/Vol] 109 mmol/L High 98-107 [facility] Comment on above: Performed By: #### L [id number] #### [facility] ([facility]) [address] [place] [address] CO2 [Moles/Vol] 25 mmol/L Normal 21-31 [facility] Comment on above: Performed By: #### L [id number] #### [facility] ([facility]) [address] [place] [address] Creatinine [Mass/Vol] 1.40 mg/dL High 0.60-1.20 [facility] Comment on above: Performed By: #### L [id number] #### [facility] ([facility]) [address] [place] [address] GLOMERULAR FILTRATION RATE ML/MIN/1.73 SQ M.PREDICTED 38.7 mL/min/1.73m*2 Low >60.[address] [facility] Comment on above: Result Comment: [facility]???s estimated glomerular filtration rate (eGFR) [...] of individuals. Performed By: #### L [id number] #### [facility] ([facility]) [address] [place] [address] Glucose [Mass/Vol] 115 mg/dL High 70-100 [facility] Comment on above: Performed By: #### L [id number] #### [facility] ([facility]) [address] [place] [address] Potassium [Moles/Vol] 3.9 mmol/L Normal 3.5-5.1 [facility] Comment on above: Performed By: #### L [id number] #### [facility] ([facility]) [address] [place] [address] Sodium [Moles/Vol] 140 mmol/L Normal 136-145 [facility] Comment on above: Performed By: #### L [id number] #### [facility] [address] [place] [address] Urea nitrogen [Mass/Vol] 32 mg/dL High 7-25 [facility] Comment on above: Performed By: #### L [id number] #### [facility] ([facility]) [address] [place] [address] UREA NITROGEN/CREATININE (MASS RATIO) IN SER/PLAS 22.9 Normal [facility] Comment on above: Performed By: #### L [id number] #### [facility] [address] [place] [address] MAGNESIUMon 02-07-2023 Magnesium [Mass/Vol] 2.0 mg/dL Normal 1.9-2.7 [facility] Comment on above: Performed By: #### L [id number] #### [facility] [address] [place] [address] BASIC METABOLIC PANELon Anion gap [Moles/Vol] 10 mmol/L Normal 7-20 [facility] Comment on above: Performed By: #### L [id number] #### [facility] ([facility]) [address] [place] [address] Calcium [Mass/Vol] 8.6 mg/dL Normal 8.6-10.3 [facility] Comment on above: Performed By: #### L [id number] #### [facility] ([facility]) [address] [place] [address] Chloride [Moles/Vol] 109 mmol/L High 98-107 [facility] Comment on above: Performed By: #### L [id number] #### [facility] ([facility]) [address] [place] [address] CO2 [Moles/Vol] 25 mmol/L Normal 21-31 [facility] Comment on above: Performed By: #### L [id number] #### [facility] ([facility]) [address] [place] [address] Creatinine [Mass/Vol] 1.32 mg/dL High 0.60-1.20 [facility] Comment on above: Performed By: #### L [id number] #### [facility] ([facility]) [address] [place] [address] GLOMERULAR FILTRATION RATE ML/MIN/1.73 SQ M.PREDICTED 41.6 mL/min/1.73m*2 Low >60.[address] [facility] Comment on above: Result Comment: [facility]???s estimated glomerular filtration rate (eGFR) [...] group of individuals. Performed By: #### L [id number] #### [facility] ([facility]) [address] [place] [address] Glucose [Mass/Vol] 142 mg/dL High 70-100 [facility] Comment on above: Performed By: #### L [id number] #### [facility] ([facility]) [address] [place] [address] Potassium [Moles/Vol] 3.8 mmol/L Normal 3.5-5.1 [facility] Comment on above: Performed By: #### L [id number] #### [facility] ([facility]) [address] [place] [address] Sodium [Moles/Vol] 140 mmol/L Normal 136-145 [facility] Comment on above: Performed By: #### L [id number] #### [facility] ([facility]) [address] [place] [address] Urea nitrogen [Mass/Vol] 31 mg/dL High 7-25 [facility] Comment on above: Performed By: #### L [id number] #### [facility] ([facility]) [address] [place] [address] UREA NITROGEN/CREATININE (MASS RATIO) IN SER/PLAS 23.5 Normal [facility] Comment on above: Performed By: #### L [id number] #### [facility] ([facility]) [address] [place] [address] CBCon 02-06-2023 Erythrocyte distribution width (RBC) [Ratio] 14.1 % Normal 11.5-15.0 [facility] Comment on above: Performed By: #### L [id number] #### [facility] ([facility]) [address] [place] [address] ERYTHROCYTE MEAN CORPUSCULAR HEMOGLOBIN CONCENTRATION (G/DL) BY AUTOMATED 33.6 g/dL Normal 32.0-35.[address] [facility] Comment on above: Performed By: #### L [id number] #### [facility] [address] [place] [address] Hematocrit (Bld) [Volume fraction] 33.3 % Low 36.0-48.0 [facility] Comment on above: Performed By: #### L [id number] #### [facility] ([facility]) [address] [place] [address] Hemoglobin (Bld) [Mass/Vol] 11.2 g/dL Low 12.0-15.0 [facility] Comment on above: Performed By: #### L [id number] #### [facility] [address] [place] [address] MCH (RBC) [Entitic mass] 29.3 pg Normal 27.0-33.0 [facility] Comment on above: Performed By: #### L [id number] #### [facility] [address] [place] [address] MCV (RBC) [Entitic vol] 87.2 fL Normal 82.0-98.0 [facility] Comment on above: Performed By: #### L [id number] #### [facility] [address] [place] [address] PLATELETS (10*3/UL) IN BLOOD AUTOMATED COUNT 152 10*3/uL Normal 150-400 [facility] Comment on above: Performed By: #### L [id number] #### [facility] [address] [place] [address] RBC (Bld) [#/Vol] 3.82 10*6/uL Normal 3.80-5.00 [facility] Comment on above: Performed By: #### L [id number] #### [facility] (BEAKER) [address] [place] [address] WBC (Bld) [#/Vol] 6.44 10*3/uL Normal 4.00-10.60 [facility] Comment on above: Performed By: #### L [id number] #### [facility] (BEAKER) [address] [place] [address] CONSULTon 02-06-2023 CONSULT Inpatient consult to Cardiothoracic [...] per patient for which she saw her national dedicated truck driver Dr. Soto- medications were adjusted and pacemaker [...] 1 tablet by mouth in the morning. Wed,Thur,Sat,Sun Review of Systems Review of Systems: All [...] is not (more content not included)... Normal [facility] MAGNESIUMon 02-06-2023 Magnesium [Mass/Vol] 1.7 mg/dL Low 1.9-2.7 [facility] Comment on above: Performed By: #### L [id number] #### [facility] (BEAKER) [address] [place] [place] [address] 30on 02-05-2023 30 The patient is Moder [...] and maintained or improved Outcome: Progressing Normal [facility] 30 Daily Case Managemen t [...] PT Recommendations: OT Recommendations: New Consults: Normal [facility] 30 Problem: Pain - Adul [...] Flowsheets (Taken 02/05/2023745) Free from fall injury: Fossil fall precautions as indicated by assessment Educate [...] clinical goals for the shift include vss [facility] 30 The patient is Moder ately Stable - Low risk of patient condition declining or worsening The patient's goals for the shift include comfort The clinical goals for the shift include vss [facility] BASIC METABOLIC PANELon 07-0 Anion gap [Moles/Vol] 12 mmol/L Normal 7-20 [facility] Comment on above: Performed By: #### L [id number] #### [facility] (BEAKER) [address] [place] [address] Calcium [Mass/Vol] 8.8 mg/dL Normal 8.6-10.3 [facility] Comment on above: Performed By: #### L [id number] #### [facility] (BEAKER) [address] [place] [address] Chloride [Moles/Vol] 107 mmol/L Normal 98-107 [facility] Comment on above: Performed By: #### L [id number] #### [facility] (BEAKER) [address] [place] [address] CO2 [Moles/Vol] 25 mmol/L Normal 21-31 [facility] Comment on above: Performed By: #### L [id number] #### [facility] (BEAKER) [address] [place] [address] Creatinine [Mass/Vol] 1.18 mg/dL Normal 0.60-1.20 [facility] Comment on above: Performed By: #### L [id number] #### [facility] (BEAKER) [address] [place] [address] GLOMERULAR FILTRATION RATE ML/MIN/1.73 SQ M.PREDICTED 47.6 mL/min/1.73m*2 Low >60.[address] [facility] Comment on above: Result Comment: The [facility]???s estimated glomerular filtration rate (eGFR) [...] group of individuals. Performed By: #### L [id number] #### [facility] ([facility]) [address] [place] [address] Glucose [Mass/Vol] 99 mg/dL Normal 70-100 [facility] Comment on above: Performed By: #### L [id number] #### [facility] ([facility]) [address] [place] [address] Potassium [Moles/Vol] 3.8 mmol/L Normal 3.5-5.1 [facility] Comment on above: Performed By: #### L [id number] #### [facility] ([facility]) [address] [place] [address] Sodium [Moles/Vol] 140 mmol/L Normal 136-145 [facility] Comment on above: Performed By: #### L [id number] #### [facility] ([facility]) [address] [place] [address] Urea nitrogen [Mass/Vol] 28 mg/dL High 7-25 [facility] Comment on above: Performed By: #### L [id number] #### [facility] ([facility]) [address] [place] [address] UREA NITROGEN/CREATININE (MASS RATIO) IN SER/PLAS 23.7 Normal [facility] Comment on above: Performed By: #### L [id number] #### [facility] ([facility]) [address] [place] [address] Anion gap [Moles/Vol] 12 mmol/L Normal 7-20 [facility] Comment on above: Performed By: #### L [id number] #### [facility] ([facility]) [address] [place] [address] Calcium [Mass/Vol] 9.0 mg/dL Normal 8.6-10.3 [facility] Comment on above: Performed By: #### L [id number] #### [facility] ([facility]) [address] [place] [address] Chloride [Moles/Vol] 107 mmol/L Normal 98-107 [facility] Comment on above: Performed By: #### L [id number] #### [facility] ([facility]) [address] [place] [address] CO2 [Moles/Vol] 23 mmol/L Normal 21-31 [facility] Comment on above: Performed By: #### L [id number] #### [facility] ([facility]) [address] [place] [address] Creatinine [Mass/Vol] 1.12 mg/dL Normal 0.60-1.20 [facility] Comment on above: Performed By: #### L [id number] #### [facility] ([facility]) [address] [place] [address] GLOMERULAR FILTRATION RATE ML/MIN/1.73 SQ M.PREDICTED 50.6 mL/min/1.73m*2 Low >60.[address] [facility] Comment on above: Result Comment: The [facility]???s estimated glomerular filtration rate (eGFR) [...] of individuals. Performed By: #### L [id number] #### [facility] ([facility]) [address] [place] [address] Glucose [Mass/Vol] 121 mg/dL High 70-100 [facility] Comment on above: Performed By: #### L [id number] #### [facility] ([facility]) [address] [place] [address] Potassium [Moles/Vol] 3.8 mmol/L Normal 3.5-5.1 [facility] Comment on above: Performed By: #### L [id number] #### [facility] [address] [place] [address] Sodium [Moles/Vol] 138 mmol/L Normal 136-145 [facility] Comment on above: Performed By: #### L [id number] #### [facility] ([facility]) [address] [place] [address] Urea nitrogen [Mass/Vol] 28 mg/dL High 7-25 [facility] Comment on above: Performed By: #### L [id number] #### [facility] ([facility]) [address] [place] [address] UREA NITROGEN/CREATININE (MASS RATIO) IN SER/PLAS 25.0 Normal [facility] Comment on above: Performed By: #### L [id number] #### [facility] ([facility]) [address] [place] [address] CBC WITH AUTO DIFFERENTIALon 02-05-2023 Basophils (Bld) [#/Vol] 0.03 10*3/uL Normal 0.00-0.20 [facility] Comment on above: Performed By: #### L [id number] #### [facility] ([facility]) [address] [place] [address] Basophils/100 WBC (Bld) 0.4 % Normal 0.0-1.0 [facility] Comment on above: Performed By: #### L [id number] #### [facility] ([facility]) [address] [place] [address] Eosinophils (Bld) [#/Vol] 0.65 10*3/uL High 0.00-0.50 [facility] Comment on above: Performed By: #### L [id number] #### [facility] ([facility]) [address] [place] [address] Eosinophils/100 WBC (Bld) 8.6 % High 0.0-6.0 [facility] Comment on above: Performed By: #### L [id number] #### [facility] [address] [place] [address] Erythrocyte distribution width (RBC) [Ratio] 14.1 % Normal 11.5-15.0 [facility] Comment on above: Performed By: #### L [id number] #### [facility] (BEAKER) [address] [place] [address] ERYTHROCYTE MEAN CORPUSCULAR HEMOGLOBIN CONCENTRATION (G/DL) BY AUTOMATED 33.1 g/dL Normal 32.0-35.[address] [facility] Comment on above: Performed By: #### L [id number] #### [facility] (BEAKER) [address] [place] [address] Hematocrit (Bld) [Volume fraction] 37.5 % Normal 36.0-48.0 [facility] Comment on above: Performed By: #### L [id number] #### [facility] (BEAKER) [address] [place] [address] Hemoglobin (Bld) [Mass/Vol] 12.4 g/dL Normal 12.0-15.0 [facility] Comment on above: Performed By: #### L [id number] #### [facility] (BEAKER) [address] [place] [address] Immature granulocytes (Bld) [#/Vol] 0.02 10*3/uL Normal 0.00-0.20 [facility] Comment on above: Performed By: #### L [id number] #### [facility] (BEAKER) [address] [place] [address] Immature granulocytes/100 WBC (Bld) 0.3 % Normal 0.0-1.0 [facility] Comment on above: Performed By: #### L [id number] #### [facility] (BEAKER) [address] [place] [address] Lymphocytes (Bld) [#/Vol] 1.46 10*3/uL Normal 1.20-4.00 [facility] Comment on above: Performed By: #### L [id number] #### [facility] (BEAKER) [address] [place] [address] Lymphocytes/100 WBC (Bld) 19.3 % Low 20.0-45.0 [facility] Comment on above: Performed By: #### L [id number] #### [facility] ([facility]) [address] [place] [address] MCH (RBC) [Entitic mass] 28.8 pg Normal 27.0-33.0 [facility] Comment on above: Performed By: #### L [id number] #### [facility] ([facility]) [address] [place] [address] MCV (RBC) [Entitic vol] 87.0 fL Normal 82.0-98.0 [facility] Comment on above: Performed By: #### L [id number] #### [facility] ([facility]) [address] [place] [address] Monocytes (Bld) [#/Vol] 0.69 10*3/uL Normal 0.10-1.00 [facility] Comment on above: Performed By: #### L [id number] #### [facility] ([facility]) [address] [place] [address] Monocytes/100 WBC (Bld) 9.1 % Normal 5.0-12.0 [facility] Comment on above: Performed By: #### L [id number] #### [facility] ([facility]) [address] [place] [address] Neutrophils (Bld) [#/Vol] 4.73 10*3/uL Normal 1.60-7.60 [facility] Comment on above: Performed By: #### L [id number] #### [facility] [address] [place] [address] Neutrophils/100 WBC (Bld) 62.3 % Normal 40.0-72.0 [facility] Comment on above: Performed By: #### L [id number] #### [facility] (BEAKER) [address] [place] [address] NRBC (PER 100 WBCS) BY AUTOMATED COUNT 0.0 % Normal 0 [facility] Comment on above: Performed By: #### L [id number] #### [facility] (BEAKER) [address] [place] [address] PLATELETS (10*3/UL) IN BLOOD AUTOMATED COUNT 175 10*3/uL Normal 150-400 [facility] Comment on above: Performed By: #### L [id number] #### [facility] ([facility]) [address] [place] [address] RBC (Bld) [#/Vol] 4.31 10*6/uL Normal 3.80-5.00 [facility] Comment on above: Performed By: #### L [id number] #### [facility] ([facility]) [address] [place] [address] WBC (Bld) [#/Vol] 7.58 10*3/uL Normal 4.00-10.60 [facility] Comment on above: Performed By: #### L [id number] #### [facility] ([facility]) [address] [place] [address] CONSULTon 02-05-2023 CONSULT ----- ----- Attestation signed [...] The patient is very high risk. ----- [place] Cardiology Consult Note Reason for visit: near-syncope [...] (CMS/HCC) Coronary artery disease Hypertension Myocardial infarct ([facility]/HCC) Stroke ([facility]/HCC) PSH: Past Surgical History: Procedure Laterality [...] no lightheadedness, (more content not included)... Normal [facility] HEPATIC FUNCTION PANELon Albumin [Mass/Vol] 3.8 g/dL Normal 3.5-5.7 [facility] Comment on above: Performed By: #### L [id number] #### [facility] (BEAKER) [address] [place] [address] ALP [Catalytic activity/Vol] 92 U/L Normal 34-104 [facility] Comment on above: Performed By: #### L [id number] #### [facility] (BEAKER) [address] [place] [address] ALT [Catalytic activity/Vol] 11 U/L Normal 7-52 [facility] Comment on above: Performed By: #### L [id number] #### [facility] (BEAKER) [address] [place] [place] [address] AST [Catalytic activity/Vol] 23 U/L Normal 13-39 [facility] Comment on above: Performed By: #### L [id number] #### [facility] (BEAKER) [address] [place] [address] Bilirubin [Mass/Vol] 0.8 mg/dL Normal 0.3-1.0 [facility] Comment on above: Performed By: #### L [id number] #### [facility] (BEAKER) [address] [place] [address] Magnesium [Mass/Vol] 0.1 mg/dL Normal 0-0.2 [facility] Comment on above: Performed By: #### L [id number] #### [facility] (BEAKER) [address] [place] [address] Protein [Mass/Vol] 6.5 g/dL Normal 6.0-8.3 [facility] Comment on above: Performed By: #### L [id number] #### [facility] (BARBY) [place] [address] on 02-05-2023 H&P reviewed. The jordon mendez was examined and there are no changes to the H&P. [facility] H&P reviewed. The jordon mendez was examined and there are no changes to the H&P. [facility] HP ----- ----- Attestation signed by [...] The patient is very high risk. ----- [place] Cardiology Consult Note Reason for visit: near-syncope [...] no lightheadedness, (more content not included)... Normal [facility] MAGNESIUMon 02-05-2023 Magnesium [Mass/Vol] 1.4 mg/dL Low 1.9-2.7 [facility] Comment on above: Performed By: #### L [id number] ####[facility] (BEAKER)[address] [place] [address] TROPONIN Ion 07-03-2023 Troponin I.cardiac [Mass/Vol] 0.25 ng/mL Critically high 0.00-0.04 [facility] Comment on above: Result Comment: M-NC EVIOUS CRITICAL RESULT Previous result verified on 02/05/2023 0550 on specimen/case [id number] called with component Troponin I for procedure Troponin I with value 0.21 ng/mL. Performed By: #### L [id number] #### [facility] ([facility]) [address] [place] [address] Troponin I.cardiac [Mass/Vol] 0.21 ng/mL Critically high 0.00-0.04 [facility] Comment on above: Result Comment: M-NC EVIOUS CRITICAL RESULT Previous result verified on 02/05/2023 0053 on specimen/case [id number] called with component Troponin I for procedure Troponin I with value 0.27 ng/mL. Performed By: #### L [id number] #### [facility] ([facility]) [address] [place] [address] Troponin I.cardiac [Mass/Vol] 0.27 ng/mL Critically high 0.00-0.04 [facility] Comment on above: Result Comment: M-TR OPONIN INITIAL CRITICAL HIGH; RESPUN AND RETESTED Performed By: #### L [id number] #### [facility] ([facility]) [address] [place] [address] HPon 01-23-2023 [facility] Electrophysiology Consult Note Reason for visit: s/p PPM for AV block, AF s/p cryomaze HPI: Trisha Parish is a 77 y.o. 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 She was recently admitted to [facility] for weakness, suspected to have a stroke [...] stroke who presented with generalized weakness to [facility]. At [facility], EKG demonstarted a 2:1 AV block with prolonged NC interval 266. Chest x-ray demonstrated possible trace [...] heart rate 59. Patient was transferred to [facility] for further evaluation by cardiology. She was [...] (CMS/HCC) Coronary artery disease Hypertension Myocardial infarct ([facility]/HCC) Stroke ([facility]/HCC) PSH: Past Surgical History: Procedure Laterality [...] tablet anastrozole (more content not included)... Normal [facility] Office Visiton 01-23-2023 Follow-up visit [id number] Trisha Parish 1945 F Date Provider Department Center 01/23/2023 JasonJoaoMANDI SOTO [facility] No family history on file Level of Service:80873 [place] OFFICE/OUTPATIENT NEW MODERATE MDM 45-59 MINUTES Reason for Visit and Comments: Follow-up [604846] - 3 month follow up Normal [facility] Office Visiton 01-17-2023 Follow-up visit [id number] Trisha Parish 1945 F Date Provider Department Center 01/17/2023 CarlaZOHREHTOÑO [facility] No family history on file Level of Service:49553 [place] OFFICE/OUTPATIENT ESTABLISHED MOD MDM 30-39 MIN Reason for Visit and Comments: Valve Disorder [3372] Atrial Fibrillation [80] Coronary Artery Disease [187] Normal [facility] PTH INTACTon 10-07-2022 PTH, Intact 45 pg/mL Normal 15-65 [facility] Comment on above: Performed By: #### P T, PTT #### [facility] [address] [place] [address] Dr. Madisyn Bentley RENAL FUNCTION PANELon 10-06 Albumin [Mass/Vol] 3.3 g/dL Critically low 3.4-5.0 [facility] Comment on above: Performed By: #### R ENAL #### [facility] [address] [address] [address] Madisyn Bentley Calcium [Mass/Vol] 8.2 mg/dL Critically low 8.5-10.1 [facility] Comment on above: Performed By: #### R ENAL #### [facility] [address] [address] [address] Madisyn Bentley Chloride [Moles/Vol] 110 mmol/L Critically high 98-107 [facility] Comment on above: Performed By: #### R ENAL #### [facility] [address] [place] [address] Dr. Madisyn Bentley CO2 [Moles/Vol] 22.2 mmol/L Normal 21.0-32.0 [facility] Comment on above: Performed By: #### R ENAL #### [facility] [address] [address] [address] Madisyn Bentley Creatinine [Mass/Vol] 1.36 mg/dL Critically high 0.55-1.02 [facility] Comment on above: Performed By: #### R ENAL #### [facility] [address] [address] [address] Madisyn Bentley EGFR-AF TURKMEN 46 mL/min/1.73m2 Critically low >=60 [facility] Comment on above: Performed By: #### R ENAL #### [facility] [address] [address] [address] Madisyn Bentley EGFR-NON AF TURKMEN 38 mL/min/1.73m2 Critically low >=60 [facility] Comment on above: Performed By: #### R ENAL #### [facility] [address] [address] [address] Madisyn Bentley Glucose [Mass/Vol] 145 mg/dL Critically high 74-106 [facility] Comment on above: Performed By: #### R ENAL #### [facility] [address] [address] [address] Madisyn Bentley Phosphate [Mass/Vol] 2.7 mg/dL Normal 2.6-4.7 [facility] Comment on above: Performed By: #### R ENAL #### [facility] [address] [address] [address] Madisyn Bentley Potassium [Moles/Vol] 3.9 mmol/L Normal 3.5-5.1 [facility] Comment on above: Performed By: #### R ENAL #### [facility] [address] [address] [address] Madisyn Bentley Sodium [Moles/Vol] 143 mmol/L Normal 136-145 [facility] Comment on above: Performed By: #### R ENAL #### [facility] [address] [address] [address] Madisyn Bentley Urea nitrogen [Mass/Vol] 24.0 mg/dL Critically high 7.0-18.0 [facility] Comment on above: Performed By: #### R ENAL #### [facility] [address] [place] [address] Dr. Madisyn Bentley UA RANDOMon 10-06-2022 Bilirubin Ql (U) Negative Normal NEGATIVE [facility] Comment on above: Performed By: #### R ENAL #### [facility] [address] [place] [address] Dr. Madisyn Bentley Clarity (U) CLEAR Normal CLEAR [facility] Comment on above: Performed By: #### R ENAL #### [facility] [address] [place] [address] Dr. Madisyn Bentley Color (U) LT. YELLOW Normal YELLOW [facility] Comment on above: Performed By: #### R ENAL #### [facility] [address] [place] [address] Dr. Madisyn Bentley Glucose Ql (U) Negative Normal NEGATIVE [facility] Comment on above: Performed By: #### R ENAL #### [facility] [address] [place] [address] Dr. Madisyn Bentley Hemoglobin Ql (U) Negative Normal NEGATIVE [facility] Comment on above: Performed By: #### R ENAL #### [facility] [address] [place] [address] Dr. Madisyn Bentley Ketones Ql (U) Negative Normal NEGATIVE [facility] Comment on above: Performed By: #### R ENAL #### [facility] [address] [place] [address] Dr. Madisyn Bentley LEUKOCYTES SMALL Abnormal NEGATIVE [facility] Comment on above: Performed By: #### R ENAL #### [facility] [address] [place] [address] Dr. Madisyn Bentley Nitrite Ql (U) Negative Normal NEGATIVE [facility] Comment on above: Performed By: #### R ENAL #### [facility] [address] [place] [address] Dr. Madisyn Bentley pH (U) 5.5 [pH] Normal 5-9 [facility] Comment on above: Performed By: #### R ENAL #### [facility] [address] [place] [address] Dr. Madisyn Bentley SPEC GRAVITY 1.020 Normal 1.005-<=1.02 5 [facility] Comment on above: Performed By: #### R ENAL #### [facility] [address] [place] [address] Dr. Madisyn Bentley UA PROTEIN TRACE Normal NEGATIVE/ TRACE [facility] Comment on above: Performed By: #### R ENAL #### [facility] [address] [place] [address] Dr. Madisyn Bentley Urobilinogen Qn (U) 0.2 {Luis Eduardo'U}/dL Normal 0.2 - 1. 0 [facility] Comment on above: Performed By: #### R ENAL #### [facility] [address] [place] [address] Dr. Madisyn Bentley URINE T PROTEIN CREAT RATIOo n 10-06-2022 Protein (U) [Mass/Vol] 47.8 mg/dL Critically high <=12.0 [facility] Comment on above: Performed By: #### U RTPCR #### [facility] [address] [place] [address] Dr. Madisyn Bentley UR PROT CREAT RAT 0.26 Normal [facility] Comment on above: Performed By: #### U RTPCR #### [facility] [address] [place] [address] Dr. Madisyn Bentley URINE CREAT 186.22 mg/dL Normal 20.00-300.00 [facility] Comment on above: Performed By: #### U RTPCR #### [facility] [address] [place] [address] Dr. Madisyn Bentley BNPon 09-10-2022 Natriuretic peptide B (Bld) [Mass/Vol] 36210.0 pg/mL Critically high <=1,800.0 [facility] Comment on above: Performed By: #### B LINUX SYSTEM[employer] ADMINISTRATOR, HSTROPN #### [facility] [address] [place] [address] Dr. Madisyn Bentley CBC AUTO DIFFon 09-10-2022 BASO # 0.0 103/ul Normal 0.0-0.1 [facility] Comment on above: Performed By: #### R ENAL #### [facility] [address] [place] [address] Dr. Madisyn Bentley Basophils/100 WBC (Bld) 0.3 % Normal 0.2-2.0 [facility] Comment on above: Performed By: #### R ENAL #### [facility] [address] [place] [address] Dr. Madisyn Bentley EO # 0.3 103/ul Normal 0.0-0.7 [facility] Comment on above: Performed By: #### R ENAL #### [facility] [address] [place] [address] Dr. Madisyn Bentley Eosinophils/100 WBC (Bld) 2.4 % Normal 0.9-7.0 [facility] Comment on above: Performed By: #### R ENAL #### [facility] [address] [place] [address] Dr. Madisyn Bentley Erythrocyte distribution width (RBC) [Ratio] 13.3 % Normal 11.0-15.0 [facility] Comment on above: Performed By: #### R ENAL #### [facility] [address] [place] [address] Dr. Madisyn Bentley Hematocrit (Bld) [Volume fraction] 36.0 % Normal 36.0-48.0 [facility] Comment on above: Performed By: #### R ENAL #### [facility] [address] [place] [address] Dr. Madisyn Bentley Hemoglobin (Bld) [Mass/Vol] 11.2 g/dL Critically low 12.0-16.0 [facility] Comment on above: Performed By: #### R ENAL #### [facility] [address] [place] [address] Dr. Madisyn Bentley IG # 0.02 10e3/ul Normal 0.00-0.03 [facility] Comment on above: Performed By: #### R ENAL #### [facility] [address] [place] [address] Dr. Madisyn Bentley IG % 0.2 % Normal 0.0-0.5 [facility] Comment on above: Performed By: #### R ENAL #### [facility] [address] [place] [address] Dr. Madisyn Bentley LYMPH # 1.4 103/ul Normal 1.2-3.8 [facility] Comment on above: Performed By: #### R ENAL #### [facility] [address] [place] [address] Dr. Madisyn Bentley Lymphocytes/100 WBC (Bld) 13.3 % Critically low 20.5-60.0 [facility] Comment on above: Performed By: #### R ENAL #### [facility] [address] [place] [address] Dr. Madisyn Bentley MANUAL DIFF REQ NO Normal [facility] Comment on above: Performed By: #### R ENAL #### [facility] [address] [place] [address] Dr. Madisyn Bentley MCH (RBC) [Entitic mass] 28.9 pg Normal 26.7-34.0 [facility] Comment on above: Performed By: #### R ENAL #### [facility] [address] [place] [address] Dr. Madisyn Bentley MCHC (RBC) [Mass/Vol] 31.1 g/dL Normal 29.9-35.2 [facility] Comment on above: Performed By: #### R ENAL #### [facility] [address] [place] [address] Dr. Madisyn Bentley MCV (RBC) [Entitic vol] 92.8 fL Normal 81.0-99.0 [facility] Comment on above: Performed By: #### R ENAL #### [facility] [address] [place] [address] Dr. Madisyn Bentley MONO # 0.9 103/ul Critically high 0.3-0.8 [facility] Comment on above: Performed By: #### R ENAL #### [facility] [address] [place] [address] Dr. Madisyn Bentley Monocytes/100 WBC (Bld) 8.4 % Normal 1.7-12.0 [facility] Comment on above: Performed By: #### R ENAL #### [facility] [address] [place] [address] Dr. Madisyn Bentley NEUT # 8.1 103/ul Critically high 1.4-6.5 [facility] Comment on above: Performed By: #### R ENAL #### [facility] [address] [place] [address] Dr. Madisyn Bentley Neutrophils/100 WBC (Bld) 75.4 % Critically high 43.0-75.0 [facility] Comment on above: Performed By: #### R ENAL #### [facility] [address] [place] [address] Dr. Madisyn Bentley Platelet mean volume (Bld) [Entitic vol] 12.8 fL Normal 9.5-13.5 [facility] Comment on above: Performed By: #### R ENAL #### [facility] [address] [place] [address] Dr. Madisyn Bentley PLT 200 103/ul Normal 150-450 [facility] Comment on above: Performed By: #### R ENAL #### [facility] [address] [place] [address] Dr. Madisyn Bentley RBC 3.88 106/ul Critically low 4.20-5.40 [facility] Comment on above: Performed By: #### R ENAL #### [facility] [address] [place] [address] Dr. Madisyn Bentley WBC 10.8 103/ul Normal 4.0-11.0 [facility] Comment on above: Performed By: #### R ENAL #### [facility] [address] [place] [address] Dr. Madisyn Bentley Covid-19 PCR ([facility])on SARS-CoV-2 (COVID-19) RNA SUSAN+probe Ql (Unsp spec) Not detected Normal NOT DETECTED [facility] Comment on [...] for this test is supported by the [place] of [employer] and Human Service's declaration that [...] Performed By: #### P T, PTT #### [facility] [address] [place] [address] Dr. Madisyn Bentley PROF 14(COMP METB)on 023 Albumin [Mass/Vol] 3.0 g/dL Critically low 3.4-5.0 [facility] Comment on above: Performed By: #### R ENAL #### [facility] [address] [place] [address] Dr. Madisyn Bentley Albumin/Globulin [Mass ratio] 0.8 {ratio} Normal [facility] Comment on above: Performed By: #### R ENAL #### [facility] [address] [place] [address] Dr. Madisyn Bentley ALP [Catalytic activity/Vol] 113 U/L Normal 46-116 [facility] Comment on above: Performed By: #### R ENAL #### [facility] [address] [place] [address] Dr. Madisyn Bentley ALT [Catalytic activity/Vol] 15 U/L Normal 14-59 [facility] Comment on above: Performed By: #### R ENAL #### [facility] [address] [place] [address] Dr. Madisyn Bentley Anion gap [Moles/Vol] 16.4 mmol/L Normal [facility] Comment on above: Performed By: #### R ENAL #### [facility] [address] [address] [address] Madisyn Bentley AST [Catalytic activity/Vol] 15 U/L Normal 15-37 [facility] Comment on above: Performed By: #### R ENAL #### [facility] [address] [address] [address] Madisyn Bentley Bilirubin [Mass/Vol] 0.6 mg/dL Normal 0.2-1.0 [facility] Comment on above: Performed By: #### R ENAL #### [facility] [address] [address] [address] Madisyn Bentley Calcium [Mass/Vol] 8.6 mg/dL Normal 8.5-10.1 [facility] Comment on above: Performed By: #### R ENAL #### [facility] [address] [address] [address] Madisyn Bentley Chloride [Moles/Vol] 102 mmol/L Normal 98-107 [facility] Comment on above: Performed By: #### R ENAL #### [facility] [address] [address] [address] Madisyn Bentley CO2 [Moles/Vol] 18.9 mmol/L Critically low 21.0-32.0 [facility] Comment on above: Performed By: #### R ENAL #### [facility] [address] [address] [address] Madisyn Bentley Creatinine [Mass/Vol] 1.95 mg/dL Critically high 0.55-1.02 [facility] Comment on above: Performed By: #### R ENAL #### [facility] [address] [address] [address] Madisyn Bentley EGFR-AF TURKMEN 30 mL/min/1.73m2 Critically low >=60 [facility] Comment on above: Performed By: #### R ENAL #### [facility] [address] [address] [address] Madisyn Bentley EGFR-NON AF TURKMEN 25 mL/min/1.73m2 Critically low >=60 [facility] Comment on above: Performed By: #### R ENAL #### [facility] [address] [address] [address] Madisyn Bentley Globulin (S) [Mass/Vol] 3.7 g/dL Normal [facility] Comment on above: Performed By: #### R ENAL #### [facility] [address] [address] [address] Madisyn Bentley Glucose [Mass/Vol] 190 mg/dL Critically high 74-106 [facility] Comment on above: Performed By: #### R ENAL #### [facility] [address] [address] [address] Madisyn Bentley Potassium [Moles/Vol] 4.3 mmol/L Normal 3.5-5.1 [facility] Comment on above: Performed By: #### R ENAL #### [facility] [address] [address] [address] Madisyn Bentley Protein [Mass/Vol] 6.7 g/dL Normal 6.4-8.2 [facility] Comment on above: Performed By: #### R ENAL #### [facility] [address] [address] [address] Madisyn Bentley Sodium [Moles/Vol] 133 mmol/L Critically low 136-145 [facility] Comment on above: Performed By: #### R ENAL #### [facility] [address] [address] [address] Madisyn Bentley Urea nitrogen [Mass/Vol] 51.0 mg/dL Critically high 7.0-18.0 [facility] Comment on above: Performed By: #### R ENAL #### [facility] [address] [address] [address] Madisyn Bentley Urea nitrogen/Creatinine [Mass ratio] 26.2 mg/mg Normal [facility] Comment on above: Performed By: #### R ENAL #### [facility] [address] [address] [address] Madisyn Bentley PROTIMEon 09-10-2022 INR Coag (PPP) [Relative time] 1.20 {INR} Normal [facility] Comment on above: Performed By: #### P T, PTT #### [facility] [address] [place] [address] Dr. Madisyn Bentley INR GUIDELINES SEE BELOW Normal [facility] Comment on above: Result Comment: ROMY RED INR: 2.0 - 3.0 CONDITIONS NOT LISTED BELOW 2.5 - 3.5 FOR PROSTHETIC HEART VALVE REPLACEMENT 2.5 - 3.5 RECURRENT THROMBOSIS Performed By: #### P T, PTT #### [facility] [address] [address] [address] Madisyn Bentley PT Coag (PPP) [Time] 12.6 s Critically high 9.0-11.6 [facility] Comment on above: Performed By: #### P T, PTT #### [facility] [address] [place] [address] Dr. Madisyn Bentley PTTon 09-10-2022 aPTT Coag (Bld) [Time] 36.0 s Normal 22.3-36.2 [facility] Comment on above: Performed By: #### P T, PTT #### [facility] [address] [place] [address] Dr. Madisyn Bentley TROPONIN, HIGH SENSITIVITYon 09-10-2022 HSTROP 79.4 pg/mL Critically high 4.0-51.3 [facility] Comment on above: Result Comment: CUT- OFF POINTS HAVE BEEN ESTABLISHED BASED ON THE FOURTH UNIVERSAL DEFINITIONS OF MYOCARDIAL INFARCTION. THE UPPER REFERENCE LIMIT (URL) OF TROPONIN, DEFINED THE 99TH PERCENTILE OF cTnI DISTRIBUTION IN A REFERENCE POPULATION, HAS BEEN CONFIRMED THE DECISION THRESHOLD FOR NC DIAGNOSIS. Performed By: #### B LINUX SYSTEMS ADMINISTRATOR, HSTROPN #### [facility] [address] [place] [address] Dr. Madisyn Bentley XR CHEST 1 Von 09-10-2022 XR CHEST [...] Kelli FLANNERY Date: 2022-09-10 04:58 Normal [facility] GLYCOHEMOGLOBIN A1Con 2021 ADA RECOMMENDATION SEE BELOW Normal [facility] Comment on above: Result Comment: ADA RECOMMENDED LIMIT 4.0 - 6.0 ADA THERAPEUTIC TARGET < 7.0 ACTION SUGGESTED > 7.0 Performed By: #### P T, PTT #### [facility] [address] [place], [place] [address] Dr. Madisyn Bentley Glucose [Mass/Vol] 186 mg/dL Normal [facility] Comment on above: Performed By: #### P T, PTT #### [facility] [address] [place], [place] [address] Dr. Madisyn Bentley HbA1c (Bld) [Mass fraction] 8.1 % Critically high 4.5-6.2 [facility] Comment on above: Performed By: #### P T, PTT #### [facility] [address] [place], [place] [address] Dr. Madisyn Bentley US THYROIDon 05-24-2022 US [...] by: DIAMOND HILARIO Date: 2022-05-24 12:24 Normal [facility] MAMM SCREEN RT 3D CADon 1 MG MAMM SCREEN RT 3D CAD Patient: TRISHA PARISH Exam Date: 05/23/2022 : 1945 Gender:F Ordering : DR SANYA TINEO M.D. Admission #: [id number] Family : Order #: [id number] CLICK HERE TO VIEW EXAM RADIOLOGY REPORT [...] and chemotherapy Family Cancers None LOCATION: [facility] BREAST COMPOSITION: Scattered areas fibroglandular [...] Hilario M.D. on 05/23/2022 at 10:38 Normal [facility] XR DEXA BONE DENSITYon 05-23 [...] DIAMOND HILARIO Date: 2022-05-23 19:25 Normal [facility] CBC AUTO DIFFon 05-16-2022 BASO # 0.0 103/ul Normal 0.0-0.1 [facility] Comment on above: Performed By: #### C BC #### [facility] [address] [place] [address] Dr. Madisyn Bentley Basophils/100 WBC (Bld) 0.4 % Normal 0.2-2.0 [facility] Comment on above: Performed By: #### C BC #### [facility] [address] [place] [address] Dr. Madisyn Bentley EO # 0.3 103/ul Normal 0.0-0.7 [facility] Comment on above: Performed By: #### C BC #### [facility] [address] [place] [address] Dr. Madisyn Bentley Eosinophils/100 WBC (Bld) 4.5 % Normal 0.9-7.0 [facility] Comment on above: Performed By: #### C BC #### [facility] [address] [place] [address] Dr. Madisyn Bentley Erythrocyte distribution width (RBC) [Ratio] 13.1 % Normal 11.0-15.0 [facility] Comment on above: Performed By: #### C BC #### [facility] [address] [place] [address] Dr. Madisyn Bentley Hematocrit (Bld) [Volume fraction] 37.9 % Normal 36.0-48.0 [facility] Comment on above: Performed By: #### C BC #### [facility] [address] [address] [address] Madisyn Bentley Hemoglobin (Bld) [Mass/Vol] 12.4 g/dL Normal 12.0-16.0 [facility] Comment on above: Performed By: #### C BC #### [facility] [address] [address] [address] Madisyn Bentley IG # 0.02 10e3/ul Normal 0.00-0.03 [facility] Comment on above: Performed By: #### C BC #### [facility] [address] [place] [address] Dr. Madisyn Bentley IG % 0.3 % Normal 0.0-0.5 [facility] Comment on above: Performed By: #### C BC #### [facility] [address] [place] [address] Dr. Madisyn Bentley LYMPH # 1.6 103/ul Normal 1.2-3.8 [facility] Comment on above: Performed By: #### C BC #### [facility] [address] [place] [address] Dr. Madisyn Bentley Lymphocytes/100 WBC (Bld) 22.0 % Normal 20.5-60.0 [facility] Comment on above: Performed By: #### C BC #### [facility] [address] [place] [address] Dr. Madisyn Bentley MANUAL DIFF REQ NO Normal [facility] Comment on above: Performed By: #### C BC #### [facility] [address] [place] [address] Dr. Madisyn Bentley MCH (RBC) [Entitic mass] 29.4 pg Normal 26.7-34.0 [facility] Comment on above: Performed By: #### C BC #### [facility] [address] [place] [address] Dr. Madisyn Bentley MCHC (RBC) [Mass/Vol] 32.7 g/dL Normal 29.9-35.2 [facility] Comment on above: Performed By: #### C BC #### [facility] [address] [address] [address] Madisyn Bentley MCV (RBC) [Entitic vol] 89.8 fL Normal 81.0-99.0 [facility] Comment on above: Performed By: #### C BC #### [facility] [address] [address] [address] Madisyn Bentley MONO # 0.5 103/ul Normal 0.3-0.8 [facility] Comment on above: Performed By: #### C BC #### [facility] [address] [address] [address] Madisyn Bentley Monocytes/100 WBC (Bld) 7.3 % Normal 1.7-12.0 [facility] Comment on above: Performed By: #### C BC #### [facility] [address] [place] [address] Dr. Madisyn Bentley NEUT # 4.9 103/ul Normal 1.4-6.5 [facility] Comment on above: Performed By: #### C BC #### [facility] [address] [place] [address] Dr. Madisyn Bentley Neutrophils/100 WBC (Bld) 65.5 % Normal 43.0-75.0 [facility] Comment on above: Performed By: #### C BC #### [facility] [address] [place] [address] Dr. Madisyn Bentley Platelet mean volume (Bld) [Entitic vol] 12.1 fL Normal 9.5-13.5 [facility] Comment on above: Performed By: #### C BC #### [facility] [address] [place] [address] Dr. Madisyn Bentley PLT 171 103/ul Normal 150-450 [facility] Comment on above: Performed By: #### C BC #### [facility] [address] [address] [address] Madisyn Bentley RBC 4.22 106/ul Normal 4.20-5.40 [facility] Comment on above: Performed By: #### C BC #### [facility] [address] [address] [address] Madisyn Bentley WBC 7.4 103/ul Normal 4.0-11.0 [facility] Comment on above: Performed By: #### C BC #### [facility] [address] [address] [address] Madisyn Bentley LIPID PROFILEon 05-16-2022 CHOL-HDL RATIO NORM SEE BELOW Normal [facility] Comment on above: Result Comment: 3.3 - 4.4 LOW RISK 4.4 - 7.1 AVERAGE RISK 7.1 - 11.0 MODERATE RISK >11.0 HIGH RISK Performed By: #### P T, PTT #### [facility] [address] [address] [address] Madisyn Bentley Cholesterol [Mass/Vol] 132 mg/dL Normal <=200 [facility] Comment on above: Performed By: #### P T, PTT #### [facility] [address] [address] [address] Madisyn Bentley Cholesterol in HDL [Mass/Vol] 44 mg/dL Normal 40-60 [facility] Comment on above: Performed By: #### P T, PTT #### [facility] [address] [address] [address] Madisyn Bentley Cholesterol in LDL [Mass/Vol] 59.6 mg/dL Normal [facility] Comment on above: Performed By: #### P T, PTT #### [facility] [address] [address] [address] Madisyn Bentley Cholesterol.total/C holesterol in HDL [Mass ratio] 3.0 {ratio} Normal [facility] Comment on above: Performed By: #### P T, PTT #### [facility] [address] [address] [address] Madisyn Bentley HDL NORMAL > or = 60 mg/dl - LO W CARDIOVASCULAR RISK <40 mg/dl - HIGH CARDIOVASCULAR RISK Normal [facility] Comment on above: Performed By: #### P T, PTT #### [facility] [address] [address] [address] Madisyn Bentley LDL CALC NORMAL SEE BELOW Normal [facility] Comment on above: Result Comment: <100 mg/dl OPTIMAL 100 - 129 mg/dl NEAR OR ABOVE OPTIMAL 130 - 159 mg/dl BORDERLINE HIGH 160 - 189 mg/dl HIGH >190 mg/dl VERY HIGH Performed By: #### P T, PTT #### [facility] [address] [address] [address] Madisyn Bentley Triglyceride [Mass/Vol] 142 mg/dL Normal <=150 [facility] Comment on above: Performed By: #### P T, PTT #### [facility] [address] [address] [address] Madisyn Bentley VLDL CALC 28.4 mg/dL Normal [facility] Comment on above: Performed By: #### P T, PTT #### [facility] [address] [place] [address] Dr. Madisyn Bentley PROF 14(COMP METB)on 022 Albumin [Mass/Vol] 3.8 g/dL Normal 3.4-5.0 [facility] Comment on above: Performed By: #### P T, PTT #### [facility] [address] [place] [address] Dr. Madisyn Bentley Albumin/Globulin [Mass ratio] 1.1 {ratio} Normal [facility] Comment on above: Performed By: #### P T, PTT #### [facility] [address] [place] [address] Dr. Madisyn Bentley ALP [Catalytic activity/Vol] 158 U/L Critically high 46-116 [facility] Comment on above: Performed By: #### P T, PTT #### [facility] [address] [place] [address] Dr. Madisyn Bentley ALT [Catalytic activity/Vol] 24 U/L Normal 14-59 [facility] Comment on above: Performed By: #### P T, PTT #### [facility] [address] [place] [address] Dr. Madisyn Bentley Anion gap [Moles/Vol] 14.1 mmol/L Normal [facility] Comment on above: Performed By: #### P T, PTT #### [facility] [address] [address] [address] Madisyn Bentley AST [Catalytic activity/Vol] 12 U/L Critically low 15-37 [facility] Comment on above: Performed By: #### P T, PTT #### [facility] [address] [place] [address] Dr. Madisyn Bentley Bilirubin [Mass/Vol] 0.7 mg/dL Normal 0.2-1.0 [facility] Comment on above: Performed By: #### P T, PTT #### [facility] [address] [place] [address] Dr. Madisyn Bentley Calcium [Mass/Vol] 8.9 mg/dL Normal 8.5-10.1 [facility] Comment on above: Performed By: #### P T, PTT #### [facility] [address] [place] [address] Dr. Madisyn Bentley Chloride [Moles/Vol] 105 mmol/L Normal 98-107 [facility] Comment on above: Performed By: #### P T, PTT #### [facility] [address] [place] [address] Dr. Madisyn Bentley CO2 [Moles/Vol] 23.4 mmol/L Normal 21.0-32.0 [facility] Comment on above: Performed By: #### P T, PTT #### [facility] [address] [place] [address] Dr. Madisyn Bentley Creatinine [Mass/Vol] 1.64 mg/dL Critically high 0.55-1.02 [facility] Comment on above: Performed By: #### P T, PTT #### [facility] [address] [place] [address] Dr. Madisyn Bentley EGFR-AF TURKMEN 37 mL/min/1.73m2 Critically low >=60 [facility] Comment on above: Performed By: #### P T, PTT #### [facility] [address] [place] [address] Dr. Madisyn Bentley EGFR-NON AF TURKMEN 30 mL/min/1.73m2 Critically low >=60 [facility] Comment on above: Performed By: #### P T, PTT #### [facility] [address] [address] [address] Madisyn Bentley Globulin (S) [Mass/Vol] 3.5 g/dL Normal [facility] Comment on above: Performed By: #### P T, PTT #### [facility] [address] [address] [address] Madisyn Bentley Glucose [Mass/Vol] 222 mg/dL Critically high 74-106 [facility] Comment on above: Performed By: #### P T, PTT #### [facility] [address] [place] [address] Dr. Madisyn Bentley Potassium [Moles/Vol] 4.5 mmol/L Normal 3.5-5.1 [facility] Comment on above: Performed By: #### P T, PTT #### [facility] [address] [place] [address] Dr. Madisyn Bentley Protein [Mass/Vol] 7.3 g/dL Normal 6.4-8.2 [facility] Comment on above: Performed By: #### P T, PTT #### [facility] [address] [place] [address] Dr. Madisyn Bentley Sodium [Moles/Vol] 138 mmol/L Normal 136-145 [facility] Comment on above: Performed By: #### P T, PTT #### [facility] [address] [place] [address] Dr. Madisyn Bentley Urea nitrogen [Mass/Vol] 35.0 mg/dL Critically high 7.0-18.0 [facility] Comment on above: Performed By: #### P T, PTT #### [facility] [address] [place] [address] Dr. Madisyn Bentley Urea nitrogen/Creatinine [Mass ratio] 21.3 mg/mg Normal [facility] Comment on above: Performed By: #### P T, PTT #### [facility] [address] [place] [address] Dr. Madisyn Bentley RENAL FUNCTION PANELon 04-07 Albumin [Mass/Vol] 3.5 g/dL Normal 3.4-5.0 [facility] Comment on above: Performed By: #### R ENAL #### [facility] [address] [address] [address] Madisyn Bentley Calcium [Mass/Vol] 8.1 mg/dL Critically low 8.5-10.1 [facility] Comment on above: Performed By: #### R ENAL #### [facility] [address] [address] [address] Madisyn Bentley Chloride [Moles/Vol] 110 mmol/L Critically high 98-107 [facility] Comment on above: Performed By: #### R ENAL #### [facility] [address] [address] [address] Madisyn Bentley CO2 [Moles/Vol] 20.2 mmol/L Critically low 21.0-32.0 [facility] Comment on above: Performed By: #### R ENAL #### [facility] [address] [address] [address] Madisyn Bentley Creatinine [Mass/Vol] 1.89 mg/dL Critically high 0.55-1.02 [facility] Comment on above: Performed By: #### R ENAL #### [facility] [address] [place] [address] Dr. Madisyn Bentley EGFR-AF TURKMEN 31 mL/min/1.73m2 Critically low >=60 [facility] Comment on above: Performed By: #### R ENAL #### [facility] [address] [address] [address] Madisyn Bentley EGFR-NON AF TURKMEN 26 mL/min/1.73m2 Critically low >=60 [facility] Comment on above: Performed By: #### R ENAL #### [facility] [address] [address] [address] Madisyn Bentley Glucose [Mass/Vol] 149 mg/dL Critically high 74-106 [facility] Comment on above: Performed By: #### R ENAL #### [facility] [address] [address] [address] Madisyn Bentley Phosphate [Mass/Vol] 3.4 mg/dL Normal 2.6-4.7 [facility] Comment on above: Performed By: #### R ENAL #### [facility] [address] [place] [address] Dr. Madisyn Bentley Potassium [Moles/Vol] 4.5 mmol/L Normal 3.5-5.1 [facility] Comment on above: Performed By: #### R ENAL #### [facility] [address] [place] [address] Dr. Madisyn Bentley Sodium [Moles/Vol] 141 mmol/L Normal 136-145 [facility] Comment on above: Performed By: #### R ENAL #### [facility] [address] [place] [address] Dr. Madisyn Bentley Urea nitrogen [Mass/Vol] 34.0 mg/dL Critically high 7.0-18.0 [facility] Comment on above: Performed By: #### R ENAL #### [facility] [address] [place] [address] Dr. Madisyn Bentley UA RANDOMon 04-07-2022 Bilirubin Ql (U) Negative Normal NEGATIVE [facility] Comment on above: Performed By: #### U A #### [facility] [address] [place] [address] Dr. Madisyn Bentley Clarity (U) CLEAR Normal CLEAR [facility] Comment on above: Performed By: #### U A #### [facility] [address] [place] [address] Dr. Madisyn Bentley Color (U) LT. YELLOW Normal YELLOW [facility] Comment on above: Performed By: #### U A #### [facility] [address] [place] [address] Dr. Madisyn Bentley Glucose Ql (U) Negative Normal NEGATIVE [facility] Comment on above: Performed By: #### U A #### [facility] [address] [place] [address] Dr. Madisyn Bentley Hemoglobin Ql (U) Negative Normal NEGATIVE [facility] Comment on above: Performed By: #### U A #### [facility] [address] [place] [address] Dr. Madisyn Bentley Ketones Ql (U) Negative Normal NEGATIVE [facility] Comment on above: Performed By: #### U A #### [facility] [address] [place] [address] Dr. Madisyn Bentley LEUKOCYTES TRACE Abnormal NEGATIVE [facility] Comment on above: Performed By: #### U A #### [facility] [address] [place] [address] Dr. Madisyn Bentley Nitrite Ql (U) Negative Normal NEGATIVE [facility] Comment on above: Performed By: #### U A #### [facility] [address] [place] [address] Dr. Madisyn Bentley pH (U) 5.5 [pH] Normal 5-9 [facility] Comment on above: Performed By: #### U A #### [facility] [address] [place] [address] Dr. Madisyn Bentley SPEC GRAVITY 1.020 Normal 1.005-<=1.[address] [place] [address] Comment on above: Performed By: #### U A #### [facility] [address] [place] [address] Dr. Madisyn Bentley UA PROTEIN Negative Normal NEGATIVE/ TRACE [facility] Comment on above: Performed By: #### U A #### [facility] [address] [place] [address] Dr. Madisyn Bentley Urobilinogen Qn (U) 0.2 {Luis Eduardo'U}/dL Normal 0.2 - 1. 0 [facility] Comment on above: Performed By: #### U A #### [facility] [address] [place] [address] Dr. Madisyn Bentley URINE T PROTEIN CREAT RATIOo n 04-07-2022 Protein (U) [Mass/Vol] 25.7 mg/dL Critically high <=12.0 [facility] Comment on above: Performed By: #### P T, PTT #### [facility] [address] [place] [address] Dr. Madisyn Bentley UR PROT CREAT RAT 0.29 Normal [facility] Comment on above: Performed By: #### P T, PTT #### [facility] [address] [address] [address] Madisyn Bentley URINE CREAT 89.48 mg/dL Normal 20.00-300.00 [facility] Comment on above: Performed By: #### P T, PTT #### [facility] [address] [address] [address] Madisyn Bentley RENAL FUNCTION PANELon 11-25 Albumin [Mass/Vol] 3.7 g/dL Normal 3.4-5.0 [facility] Comment on above: Performed By: #### R ENAL #### [facility] [address] [address] [address] Madisyn Bentley Calcium [Mass/Vol] 8.6 mg/dL Normal 8.5-10.1 [facility] Comment on above: Performed By: #### R ENAL #### [facility] [address] [address] [address] Madisyn Bentley Chloride [Moles/Vol] 107 mmol/L Normal 98-107 [facility] Comment on above: Performed By: #### R ENAL #### [facility] [address] [address] [address] Madisyn Bentley CO2 [Moles/Vol] 23.3 mmol/L Normal 22.0-30.0 [facility] Comment on above: Performed By: #### R ENAL #### [facility] [address] [address] [address] Madisyn Bentley Creatinine [Mass/Vol] 1.56 mg/dL Critically high 0.55-1.02 [facility] Comment on above: Performed By: #### R ENAL #### [facility] [address] [address] [address] Madisyn Bentley EGFR-AF TURKMEN 39 mL/min/1.73m2 Critically low >=60 [facility] Comment on above: Performed By: #### R ENAL #### [facility] [address] [address] [address] Madisyn Bentley EGFR-NON AF TURKMEN 32 mL/min/1.73m2 Critically low >=60 [facility] Comment on above: Performed By: #### R ENAL #### [facility] [address] [address] [address] Madisyn Bentley Glucose [Mass/Vol] 106 mg/dL Normal 74-106 [facility] Comment on above: Performed By: #### R ENAL #### [facility] [address] [address] [address] Madisyn Bentley Phosphate [Mass/Vol] 3.8 mg/dL Normal 2.5-4.5 [facility] Comment on above: Performed By: #### R ENAL #### [facility] [address] [address] [address] Madisyn Bentley Potassium [Moles/Vol] 4.5 mmol/L Normal 3.4-5.0 [facility] Comment on above: Performed By: #### R ENAL #### [facility] [address] [address] [address] Madisyn Bentley Sodium [Moles/Vol] 141 mmol/L Normal 137-145 [facility] Comment on above: Performed By: #### R ENAL #### [facility] [address] [address] [address] Madisyn Bentley Urea nitrogen [Mass/Vol] 27.0 mg/dL Critically high 7.0-18.0 [facility] Comment on above: Performed By: #### R ENAL #### [facility] [address] [address] [address] Madisyn Bentley UA RANDOMon 11-25-2021 Bilirubin Ql (U) Negative Normal NEGATIVE [facility] Comment on above: Performed By: #### P T, PTT #### [facility] [address] [address] [address] Madisyn Bentley Clarity (U) CLEAR Normal CLEAR [facility] Comment on above: Performed By: #### P T, PTT #### [facility] [address] [address] [address] Madisyn Bentley Color (U) LT. YELLOW Normal YELLOW [facility] Comment on above: Performed By: #### P T, PTT #### [facility] [address] [address] [address] Madisyn Bentley Glucose Ql (U) Negative Normal NEGATIVE [facility] Comment on above: Performed By: #### P T, PTT #### [facility] [address] [address] [address] Madisyn Bentley Hemoglobin Ql (U) Negative Normal NEGATIVE [facility] Comment on above: Performed By: #### P T, PTT #### [facility] [address] [address] [address] Madisyn Bentley Ketones Ql (U) Negative Normal NEGATIVE [facility] Comment on above: Performed By: #### P T, PTT #### [facility] [address] [place] [address] Dr. Madisyn Bentley LEUKOCYTES Negative Normal NEGATIVE [facility] Comment on above: Performed By: #### P T, PTT #### [facility] [address] [place] [address] Dr. Madisyn Bentley Nitrite Ql (U) Negative Normal NEGATIVE [facility] Comment on above: Performed By: #### P T, PTT #### [facility] [address] [place] [address] Dr. Madisyn Bentley pH (U) 5.5 [pH] Normal 5-9 [facility] Comment on above: Performed By: #### P T, PTT #### [facility] [address] [place] [address] Dr. Madisyn Bentley SPEC GRAVITY 1.015 Normal 1.005-<=1.[address] [place] [address] Comment on above: Performed By: #### P T, PTT #### [facility] [address] [place] [address] Dr. Madisyn Bentley UA PROTEIN Negative Normal NEGATIVE/ TRACE [facility] Comment on above: Performed By: #### P T, PTT #### [facility] [address] [place] [address] Dr. Madisyn Bentley Urobilinogen Qn (U) 0.2 {Luis Eduardo'U}/dL Normal 0.2 - 1. 0 [facility] Comment on above: Performed By: #### P T, PTT #### [facility] [address] [place] [address] Dr. Madisyn Bentley URINE T PROTEIN CREAT RATIOo n 11-25-2021 Protein (U) [Mass/Vol] 20.5 mg/dL Critically high <=12.0 [facility] Comment on above: Performed By: #### U RTPCR #### [facility] [address] [place] [address] Dr. Madisyn Bentley UR PROT CREAT RAT 0.25 Normal [facility] Comment on above: Performed By: #### U RTPCR #### [facility] [address] [place] [address] Dr. Madisyn Bentley URINE CREAT 81.12 mg/dL Normal 20.00-300.00 [facility] Comment on above: Performed By: #### U RTPCR #### [facility] [address] [place] [address] Dr. Madisyn Bentley CYTOLOGYon 06-21-2021 CYTOLOGY Specimen #: [id number] Submitting Physician: ABNER WHEELER MD SPECIMEN [...] EYE, VITREOUS FINE NEEDLE ASPIRATE THIN PREP Non-Supervisor Shuttle Fitting Date of Report: 06/22/2021 Date of Procedure: 06/21/2021 Date of Receipt: 06/22/2021 Submitted by: ABNER WHEELER MD Location: Diagnostic interpretation performed at [facility], [address] [place] [address]. CLIA Number: [id number] Normal [facility] Comment on above: Performed By: #### C #### See report for performing lab information. CNOVSPon 04-15-2018 CNOVSP Visit (SP) Office ([facility]) TRISHA PARISH ([id number]) 1945 FDate Time Provider Department04/15/18 2:15 PM ROXANN ONEAL HEMACL During your visit today, we recorded the following information about you: Temperature Pulse Respiration Blood pressure 98.2 degrees 66/minute 16/minute 147/69 Weight Height 80.9 kg 1.626 mMINDY OLIVE ONEAL PA-C 04/15/2018 3:44 PM SignedPatient: Trisha Parish [facility] 1945 [facility]ending [facility]ician: Dr. Sadi Nolan: April [...] of lymph node dissection. The tumor was ER/NC positive,HER-2 positve. Ultimately the patient had to [...] questions or concernsJORDON SHAY-CReferring Provider: SADI WALLACE [[id number]]Allergies As of Date: 04/15/2018(No Known Allergies)Date Reviewed: 04/15/2018Reviewed by: Roxann Oneal - Fully AssessedReason for Visit: Breast Cancer [519] Cmt: follow upPrimary Visit Diagnosis:Malignant neoplasm of left breast in female, estrogen receptor positive, unspecified site of breast (HCC) [C50.912, Z17.0]Order(s):[facility] [[id number]] Order #: [id number] FUTUREDisposition: Return in about 1 year (around [...] Status:Closed by ROXANN ONEAL on 04/15/18 Normal [facility] PROGRESSon 04-15-2018 Protein mass conc HNO ID: [id number] thor: Roxann Smithervice: (none)Author Type: Physician AssistantType: Progress NotesFiled: 04/15/2018 3:44 PMNote Text:Patient: Trisha Parish Location: [facility]: 1945 Attending Physician: Dr. Sadi [...] time of lymph node dissection. The tumor wasER/NC positive, HER-2 positve. Ultimately the patient had [...] to contact the office with questions or concernsSONJADY OLIVE ONEAL PA-C Normal [facility] MAMM OUTSIDE DICOM IMPORT -N BNRon 04-05-2018 MAMM OUTSIDE DICOM IMPORT -NBNR Images were obtained outside of [facility] [id number] Normal [facility] Vital Signs Date Time Vital Sign Value Performing Clinician Facility 07-17-2023 11:00-0500 Body height 153.67 cm Sanya Tineo Other [facility] Other 07-17-2023 11:00-0500 Body mass index (BMI) [Ratio] 28.5 kg/m2 Sanya Tineo Other [facility] Other 07-17-2023 11:00-0500 Body weight 67.31 kg Sanya Tineo Other [facility] Other 07-17-2023 11:00-0500 Diastolic blood pressure 65 mm[Hg] Sanya Tineo Other [facility] Other 07-17-2023 11:00-0500 Systolic blood pressure 121 mm[Hg] Sanya Tineo Other [facility] Other 05-11-2023 11:30-0400 Body height 153.67 cm Sanya Tineo Other [facility] Other 05-11-2023 11:30-0400 Body mass index (BMI) [Ratio] 27.27 kg/m2 Sanya Tineo Other [facility] Other 05-11-2023 11:30-0400 Body weight 64.41 kg Sanya Tineo Other [facility] Other 05-11-2023 11:30-0400 Diastolic blood pressure 61 mm[Hg] Sanya Tineo Other [facility] Other 05-11-2023 11:30-0400 SaO2% (BldA) [Mass fraction] 97 % Sanya Tineo Other [facility] Other 05-11-2023 11:30-0400 Systolic blood pressure 107 mm[Hg] Sanya Tineo Other [facility] Other 04-17-2023 10:45-0400 Body height 153.67 cm Sanya Tineo Other [facility] Other 04-17-2023 10:45-0400 Body mass index (BMI) [Ratio] 27.89 kg/m2 Sanya Tineo Other [facility] Other 04-17-2023 10:45-0400 Body weight 65.86 kg Sanya Tineo Other [facility] Other 04-17-2023 10:45-0400 Diastolic blood pressure 72 mm[Hg] Sanya Tineo Other [facility] Other 09-12-2023 10:45-0400 Respiratory rate 12 /min Sanya Tineo Other [facility] Other 04-17-2023 10:45-0400 Systolic blood pressure 133 mm[Hg] Sanya Tineo Other [facility] Other 02-09-2023 11:00-0400 Body height 153.67 cm Sanya Tineo Other [facility] Other 02-09-2023 11:00-0400 Body mass index (BMI) [Ratio] 27.47 kg/m2 Sanya Tineo Other [facility] Other 02-09-2023 11:00-0400 Body weight 64.86 kg Sanya Tineo Other [facility] Other 02-09-2023 11:00-0400 Diastolic blood pressure 62 mm[Hg] Sanya Tineo Other [facility] Other 02-09-2023 11:00-0400 SaO2% (BldA) [Mass fraction] 98 % Sanya Tineo Other [facility] Other 02-09-2023 11:00-0400 Systolic blood pressure 125 mm[Hg] Sanya Tineo Other [facility] Other 09-08-2022 11:30-0500 Body height 153.67 cm Sanya Tineo Other [facility] Other 09-08-2022 11:30-0500 Body mass index (BMI) [Ratio] 29.77 kg/m2 Sanya Tineo Other [facility] Other 09-08-2022 11:30-0500 Body weight 70.31 kg Sanya Tineo Other [facility] Other 09-08-2022 11:30-0500 Diastolic blood pressure 58 mm[Hg] Sanya Tineo Other [facility] Other 09-08-2022 11:30-0500 SaO2% (BldA) [Mass fraction] 97 % Sanya Tineo Other [facility] Other 09-08-2022 11:30-0500 Systolic blood pressure 110 mm[Hg] Sanya Tineo Other [facility] Other Encounters Encounter Date Encounter Type Care Provider Facility Start: 11-30-2023 End: 11-30-2023 ambulatory [facility] Start: 10-19-2023 End: 10-19-2023 ambulatory DIRK ONEILL Not Available Start: 10-03-2023 End: 10-03-2023 ambulatory JENNIFER H TIMMIS Not Available Start: 08-28-2023 End: 08-28-2023 ambulatory DIRK ONEILL Not Available Start: 08-28-2023 End: 08-28-2023 Patient encounter procedure Dirk Oneill DO Work Phone: [facility] Comment on above: 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) Start: 08-21-2023 End: 08-21-2023 ambulatory DIRK ONEILL Not Available Start: 07-24-2023 End: 07-24-2023 ambulatory JENNIFER H TIMMIS Not Available Start: 07-17-2023 End: 07-17-2023 ambulatory Sanya Tineo Other [facility] Other Start: 07-17-2023 Patient encounter procedure Sanya wadsworth [facility] Start: 07-10-2023 End: 07-10-2023 ambulatory [facility] Start: 05-18-2023 End: 05-18-2023 ambulatory [facility] Start: 05-11-2023 End: 05-11-2023 ambulatory Sanya Rivka Other [facility] Other Start: 05-11-2023 Office outpatient vi sit 15 minutes Sanya Rivka [facility] Start: 05-09-2023 Telephone encounter Sanya Rivka [facility] Start: 05-09-2023 End: 05-10-2023 ambulatory MARGARET ALVAREZ [facility] Other Start: 05-08-2023 End: 05-08-2023 ambulatory Sanya Rivka Other [facility] Other Start: 05-08-2023 Telephone encounter Sanya Tineo [facility] Start: 04-17-2023 End: 04-17-2023 ambulatory Sanya Rivka Other [facility] Other Start: 04-17-2023 Office outpatient vi sit 15 minutes Sanya Rivka [facility] Start: 04-11-2023 End: 04-11-2023 ambulatory [facility] Start: 04-04-2023 Evaluation and manag ement of inpatient [facility] Start: 04-03-2023 End: 04-04-2023 Encounter for preprocedural cardiovascular examination [facility] Start: 04-03-2023 End: 04-04-2023 Evaluation and management of inpatient [facility] Start: 2023 End: 2023 ambulatory [facility] Start: 02-23-2023 End: 02-24-2023 ambulatory MARGARET ALVAREZ [facility] Start: 02-21-2023 End: 02-21-2023 ambulatory TAYLOR PIÑA [facility] Start: 02-18-2023 End: 02-20-2023 Evaluation and management of inpatient Jailene Quesada Facility:[facility] Start: 02-09-2023 End: 02-09-2023 ambulatory Sanya Tineo Other [facility] Other Start: 02-09-2023 Office outpatient vi sit 25 minutes Sanya Tineo [facility] Start: 02-07-2023 Evaluation and manag ement of inpatient MARGARET ALVAREZ [facility] Start: 02-05-2023 Evaluation and manag ement of inpatient [facility] Start: 02-05-2023 Evaluation and manag ement of inpatient ANDREA WU [facility] Start: 02-05-2023 End: 02-07-2023 Evaluation and management of inpatient [facility] Start: 01-23-2023 End: 01-23-2023 ambulatory MANDI SOTO [facility] Start: 01-17-2023 End: 01-17-2023 ambulatory [facility] Start: 12-05-2022 End: 12-05-2022 ambulatory Sanya Tineo Other [facility] Other Start: 12-05-2022 Telephone encounter Sanya Tineo [facility] Start: 12-04-2022 End: 12-04-2022 ambulatory Sanya Tineo Other [facility] Other Start: 12-04-2022 Telephone encounter Sanya Tineo [facility] Start: 10-06-2022 End: 10-07-2022 ambulatory SHARITA KHAN Facility:[facility] Start: 10-06-2022 Encounter for prepro cedural cardiovascular examination [facility] Start: 09-12-[address] SANYA TINEO Facil ity:[facility] Start: 09-10-2022 End: 09-10-[address] MICHELE GOLDSMITH . Facility:[facility] Start: 09-08-2022 End: 09-08-2022 ambulatory Sanya Tineo Other [facility] Other Start: 09-08-2022 Office outpatient vi sit 25 minutes Sanya Tineo [facility] Start: 06-03-2022 End: 06-04-[address] SANYA TINEO Facility:[facility]1 Start: 05-23-2022 End: 05-24-2022 ambulatory DIAMOND HILARIO Facility:[facility]1 Start: 05-16-2022 End: 05-17-[address] SANYA TINEO Facility:[facility] Start: 04-07-2022 End: 04-08-2022 ambulatory SHARITA GILBERTRANJEET Facility:[facility]1 Start: 11-25-2021 End: 11-26-2021 ambulatory SHARITA AKKINA Facility:[facility]1 Start: 07-08-2018 End: 07-09-2018 Patient encounter procedure DEFAULT PHYSICIAN Facility:[facility] Start: 04-15-2018 End: 04-16-2018 Patient encounter SAD[facility] Procedures Date Procedure Procedure Detail Performing Clinician Start: 08-28-2023 Intravitreal njx pharmacologic agt spx Dirk Oneill DO Work Phone: Start: 02-06-2023 End: 07-19-2023 History of coronary artery bypass grafting Hx of CABG Dirk Oneill DO Work Phone: Start: 01-23-2023 Follow-up visit Follow-up MANDI VELAZQUEZ Plan of Treatment Date Care Activity Detail Author Start: 10-03-2023 End: 10-03-2023 Patient encounter procedure 10/03/2023 11:10 AM EST Office Visit [facility] [address] [facility] [address] [place] [id number] Jennifer Morales MD [address] [facility] [address] [place] [address] [facility] Start: 06-01-2021 Pneumococcal Vaccine : 65+ Years (2 - PPSV23 or PCV20) Pneumococcal Vaccine: 65+ Years (2 - PPSV23 or PCV20) [facility] Immunizations Immunization Date Immunization Notes Care Provider Fa cility 06-28-2022 COVID-19 Pfizer (Pediatric) Sanya Tineo Other [employer] Other 06-16-2022 influenza virus vaccine, split virus (incl. purified surface antigen) Sanya Rivka Other [employer] Other 09-03-2020 COVID-19 Vaccine Moderna - Documentation Purposes Only Sanya Rivka Other [employer] Other 04-26-2020 influenza virus vaccine, split virus (incl. purified surface antigen) Sanya Rivka Other [employer] Other 06-20-2015 influenza virus vaccine, split virus (incl. purified surface antigen) Sanya Rivka Other [employer] Other 06-01-2015 pneumococcal conjuga te vaccine, 13 valent Sanya Rivka Other [employer] Other Payers Date Payer Category Payer Medicare [id number] 2023 Self-pay 2017 Medicare [facility] AD[facility]LY [facility] MEDICARE ADVANTAGE [id number] 2017-Present [address] [place] [address] [id number] 1959 Medicare [id number] 1945 Unknown [id number] 2.16.840.1.089694.3.579.2.647 1945 Unknown [id number] 2.16.840.1.514540.3.579.2.593 1945 Unknown [id number] 2.16.840.1.842015.3.579.2.593 1945 Unknown [id number] 2.16.840.1.810570.3.579.2.593 1945 Unknown [id number] 2.16.840.1.450442.3.579.2.593 1945 Unknown [id number] 2.16.840.1.979107.3.579.2.593 1945 Unknown [id number] 2.16.840.1.241290.3.579.2.593 1945 Unknown [id number] 2.16.840.1.907817.3.579.2.593 1945 Unknown [id number] 2.16.840.1.680340.3.579.2.593 1945 Unknown [id number] 2.16.840.1.530958.3.579.2.125 9 1945 Unknown [id number] 2.16.840.1.500289.3.579.2.125 9 1945 Unknown [id number] 2.16.840.1.733049.3.579.2.125 9 1945 Unknown [id number] 2.16.840.1.123582.3.579.2.125 9 1945 Unknown [id number] 2.16.840.1.485943.3.579.2.125 9 Unknown Unknown [id number] 2.16.840.1.524979.3.579.2.531 Social History Date Type Detail Facility Unknown if ever smoked [facility] [employer] Other Start: 07-24-2023 Sex Assigned At N [facility] [employer] Other Start: 07-24-2023 Tobacco smoking status TNIS Never smoked tobacco [facility] Start: 07-24-2023 Tobacco use and exposure Smokeless tobacco non-user [facility] Start: 08-28-2023 Alcohol intake Ex-drinker (finding) [facility] Start: 07-24-2023 History of Social function [facility] Start: 1945 Sex Assigned At Not on file N [facility] Clinical Notes 06-21-2021 to 11-30-2023 Dirk Oneill, DO - 08/28/2023 2:30 PM EST Note Date & Type Note Facility 11-30-2023 Note [place] Cardiology - [facility] Subjective Trisha Parish is a 78 y.o. year old female patient being seen for Follow-up (6 months) Patient Active Problem List Diagnosis Heart block [...] (CMS/HCC) Pre-operative cardiovascular examination, recent myocardial infarction Cardiac pacemaker in situ Postural dizziness with [...] In September 2022 she was admitted to [facility] with weakness. She was found to have [...] presented to the emergency room at the [facility] with dizziness and low blood [...] she was doing well at that time. Her last visit with me was on 05/18/2023. Since then she has been doing well. She has been free from any cardiac symptoms. She had a persistent cough which was ascribed to reflux disease and is being treated by famotidine. Otherwise no significant complaints. Review of Systems Cardiovascular: Negative for chest pain, claudication, cyanosis, dyspnea on exertion, irregular heartbeat, leg swelling, near-syncope, orthopnea, palpitations, paroxysmal nocturnal dyspnea and syncope. Objective Visit Vitals BP 118/60 (BP Location: Right arm, Patient Position: Sitting, BP Cuff Size: Adult) Pulse 74 Resp 16 Ht 1.626 m (5' 4 ) Wt 61.3 kg (135 lb 3.2 oz) SpO2 99% BMI 23.21 kg/m??? OB Status Postmenopausal Smoking Status Never BSA 1.66 m??? Physical Exam Constitutional: Appearance: She is [...] no abdominal tenderness. Musculoskeletal: General: No swelling. Cervi (more content not included)... [facility] 08-28-2023 Note Time Out 08/28/2023. 2:47 PM. Confirmed correct patient, procedure, site, and patient consented. Anesthesia Topical anesthesia was used. Anesthetic medications included Lidocaine 2%, Proparacaine 0.5%. Procedure Preparation included 5% betadine to ocular surface, eyelid speculum. Injection: 1.25 mg bevacizumab 100 MG/4ML Route: Intravitreal, Site: Left Eye [facility]: 47226-993-94, Lot: [id number], Expiration date: 10/24/2023, Waste: 0 mL Post-op [...] increased pain, redness, decreased vision or concerns. [facility] 08-28-2023 History of Present illness Narrative Images from the original note [...] 100 MG/4ML Route: Intravitreal, Site: Left Eye [facility]: [id number], Lot: [id number], Expiration date: 10/24/2023, Waste: 0 mL Post-op [...] vision or concerns. documented in this encounter [facility] 07-17-2023 Evaluation note Encounter Date Diagnosis Assessment [...] Z85.3) Handwrote rx for prothesis bra #3 [employer] Other 10-13-2023 NoteUT Cardiology - [facility] Subjective Trisha Parish is [...] In September 2022 she was admitted to [facility] with weakness. She was found to have [...] presented to the emergency room at the [facility] with dizziness and low blood [...] and dry. Neurological: General (more content not included)...[facility] 05-11-2023 Evaluation note* Encounter Date Diagnosis Assessment Notes Treatment Notes Treatment Clinical Notes May, Bronchitis (ICD-10 - J40) Complete course of antibiotics. Discussed steroids for dyspnea. was recently ill as well. ER if symptoms worsen or fevers begin over weekend. [employer] Other 10-03-2023 Evaluation note* Encounter Date Diagnosis Assessment Notes Treatment Notes Treatment Clinical Notes May, Cough, unspecified type (ICD-10 - R05.9) [facility] [employer] Other 09-12-2023 Evaluation note* Encounter Date Diagnosis Assessment Notes Treatment Notes Treatment Clinical Notes Apr, Other specified postprocedural states (ICD-10 - Z98.890) s/p Aortic valve repair - doing very well. Energy is improving. 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 She was found to have [...] presented to the emergency room at the [facility] with dizziness and low blood [...] Behavior: Behavior is cooperati (more content not included)...[facility]08-30-2023 NoteSubjective Patient lying in bed [...] CT surgery standpoint. Medical management per cardiology team.[facility]08-30-2023 Note04/04/23 1035 Admission Assessment Questions [...] Yes Would you like use our pharmacy [facility] to fill your new medications at the time of Discharge? Yes Does the patient have a rn case mgr assigned to them through their insurance? No Living Arrangement (Current/Prior to Hospitalization) Private residence (3 steps to enter) Does the patient have history of HHC or SNF? Yes (Hx of rehab placement in [place]) Assistive Device Grab bars Patient's goal for [...] link and activate MyChart? MyChart already active [facility]08-29-2023 NoteIndications; Mrs. Robbins is a [...] the right common femoral Utilizing 2 6 Cypriot ProGlide devices 6. Angio-Seal vascular closure in the right femoral, artery Station Cook; interventional paperback machine operator; Toño Balbuena MD Cardiac surgery paperback machine operator; Lina Lamas MD ; bloom conveyor operator Herve Mayorga MD ; Methods; Procedure was explained to the patient with risks and benefits. She signed informed consent. She was brought to the [facility] in a fasting state. The procedure was performed the [facility] under conscious sedation. Both groin areas were prepped and draped in usual fashion. Micropuncture technique and ultrasound guidance was used to access the right common femoral artery and inner cannula angiography was performed following by upsizing to a 6 Cypriot by 11 cm sheath. The same was done for for access in the left common femoral artery. Ultrasound guidance was used for micropuncture access in left common femoral vein and 6 Cypriot by 11 cm introducer sheath was secured in place. This time we proceeded with preclosure in the right common femoral artery using 2 crossing perclosure devices and the access was then upsized over wire to the 10 Cypriot sheath. Heparin was given intravenously and therapeutic ACT was confirmed during the rest of the procedure and additional heparin was given as needed. A 5 Cypriot balloontipped pacemaker wire was advanced through the femoral sheath into the right ventricular apex and adequate capture was confirmed. Right common femoral artery was accessed and upsized over an Amplatz extra-stiff wire to the 14 Cypriot Medtronic sheath. Through the left common femoral sheath an angled 6 Cypriot pigtail catheter was then advanced to the ascending aorta into the 9 coronary cusp. Aortic root angiography was performed and the cause overlap view as determined by prior CT scan measurements. A 6 Cypriot AL diagnostic catheter was advanced via the right femoral sheath and using a stiff Glidewire the aortic valve was crossed and the catheter was advanced into the left ventricular cavity and using exchange length J-wire a 6 Cypriot angled pigtail catheter was advanced to make [...] valve over the wire across the aortic tejon aortic valve and under pacing at 120 [...] and removed outside the body. The 14 Cypriot access sheath was placed across the right femoral and 6 Cypriot angled pigtail catheter was advanced across the [...] previous placed per (more content not included)... [facility]08-29-2023 NotePatient: Trisha Parish Procedure Information Date/Time: 04/03/23 1100 Procedure: TAVR Location: [facility] FIRE PROTECTION ENGINEERING TECHNICIAN 3 / [facility] (Cath) Providers: Toño [...] who consented to blood products. Additional [facility]23 Note [place] Cardiology [facility] Subjective Trisha Parish is a [...] In September 2022 she was admitted to [facility] with weakness. She was found to have [...] , Rfl: carvedilol (Co (more content not included)...[facility] 02-21-2023 NoteCardiology Clinic Note Subjective [...] renal failure syndrome (CMS/HCC) Anemia Atrial fibrillation ([facility]/HCC) Benign hypertensive renal disease Carotid artery stenosis Cerebrovascular accident (CMS/HCC) Coronary arteriosclerosis Essential hypertension Hypertensive disorder Hyperparathyroidism due to renal insufficiency (CMS/HCC) Breast CA (CMS/HCC) Malignant neoplasm of female breast (CMS/HCC) Proteinuria Stage 3 chronic kidney disease (CMS/HCC) Stage 4 chronic kidney disease (CMS/HCC) Type 2 diabetes mellitus (CMS/HCC) Vitamin D deficiency 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 Social History Tobacco Use Smoking status: Never Smokeless tobacco: Never Substance Use Topics Alcohol use: Never Drug use: Never Update: 02/21/2023 She was hospitalized at [facility] for 3 days after presenting with dizziness [...] other elevated She was hospitalized 02/04-02/07/23 at [facility] and underwent coronary angiography and right heart [...] Date WBC 6.44 02/06 (more content not included)...[facility] 02-09-2023 Evaluation note* Encounter Date Diagnosis Assessment Notes Treatment Notes Treatment Clinical Notes Feb, Nonrheumatic aortic valve stenosis (ICD-10 - I35.0) Discussed followup testing and likely procedure coming up at [facility] at length w pt and Feb, Chronic kidney disease, stage 3 unspecified (ICD-10 - N18.30) Reviewed labs - condition stable Feb, CAD in tejon artery (ICD-10 - I25.10) Further f/u w [facility] Cardiology Feb, Essential hypertension (ICD-10 - I10) Improved on present meds. [employer] Other 07-05-2023 NotePhysical Therapy Physical Therapy Evaluation [...] in front. During session, patient confided in sports book writer that they felt as though their balance had decreased during this admission and that they were worried about walking due to occasional and unpredictable losses of balance. Patient reported that they thought it could be related to neuropathy at their feet, but were unsure. Patient told sports book writer that they wished to address loss of balance issues sooner rather than later and they felt less confident walking. Patient Active Problem List Diagnosis Heart block Acute renal failure syndrome ([facility]) Anemia Atrial fibrillation ([facility]) Benign hypertensive renal disease Carotid artery stenosis Cerebrovascular accident ([facility]) Coronary arteriosclerosis Essential hypertension Hypertensive disorder Hyperparathyroidism due to renal insufficiency ([facility]/HCC) Breast CA ([facility]) Malignant neoplasm of female breast ([facility]) Proteinuria Stage 3 chronic kidney disease ([facility]/HCC) Stage 4 chronic kidney disease ([facility]/HCC) Type 2 diabetes mellitus ([facility]/HCC) Vitamin D deficiency 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 ([facility]) Pre-operative cardiovascular examination, recent myocardial infarction ([facility]) Cardiac pacemaker in situ Postural dizziness with presyncope NSTEMI (non-ST elevated myocardial infarction) ([facility]) Hx of CABG Severe aortic stenosis Past Medical History: Diagnosis Date A-fib ([facility]) Cancer ([facility]/HCC) Coronary artery disease Hypertension Myocardial infarct ([facility]) Stroke ([facility]) Past Surgical History: Procedure Laterality Date [...] Level of Function Prior Function Level of Fidelity: Independent with ADLs and functional transfers Prior [...] Standing Balance Dynamic Darwin (more content not included)...[facility] 02-07-2023 NoteHospital Medicine Discharge Summary [...] Medications These medications were [facility] to [facility] [address] [place] [address] [facility] [place] [address], [facility] [address] lisinopril 40 mg tablet NIFEdipine CC 60 [...] Normal activity as tolerate (more content not included)...[facility]07-04-2023 NoteHospital Medicine Daily Progress Note - 02/06/2023 1:29 PM; Room: [address] [place], [place] [id number] Admission: 02/04/2023 10:47 PM; Length of stay: 2 days THE HOSPITALIST TEAM PREFERS TO USE [employer] CHAT FOR COMMUNICATION 7AM-7PM. IF I DO NOT RESPOND WITHIN 15 MINUTES, PLEASE PAGE ME/CALL THROUGH THE PROM BURN OFF OPERATOR. FROM 7PM-7AM, PLEASE PAGE [phone](COVR) Code Status: Full Code Discharge Destination: home [...] Cardiac pacemaker in situ Anemia Atrial fibrillation ([facility]) Carotid artery stenosis Essential hypertension Hypertensive disorder Breast CA ([facility]) Type 2 diabetes mellitus ([facility]) Vitamin D deficiency Postural dizziness with presyncope Hx of CABG NSTEMI (non-ST elevated myocardial infarction) ([facility]) Assessment and Plan #Near-syncope #NSTEMI type I [...] Results Component Value D (more content not included)...[facility]07-04-2023 Note Attestation signed by Matilda [...] 02/06/23 0900 155/87 36.6 ???C (97.8 ???F) [facility] 65 12 -- -- 02/06/23 0550 157/71 36.6 ???C (97.8 ???F) [facility] 63 11 98 % 67.4 kg (148 [...] Value Ventricular Rate 72 Atrial Rate 72 NC Interval 162 QRS DURATION 150 QT Interval 464 QTC CALCULATION([place]ET[place]) [address] -[address] 103 Impression Atrial-sensed ventricular-paced rhythm Abnormal ECG When compared with ECG of 10-SEP-2022 13:04, Electronic ventricular pacemaker has replaced Sinus rhythm Confirmed by Cheryl VALENTIN, MATILDA Robles ([id number]) on 02/05/2023 8:39:37 AM Lab Results Component Value Date TROPONINI 0.25 (HH) 02/05/2023 Complete Echo (TTE) w/wo Imaging Agent, Strain, 3D, Bubble Study Result Date: 02/05/2023 1 1 [facility] Heart Station [address] [id number] [phone] (fax) Echocardiogram-[facility] Name: TRISHA PARISH Study Date: 02/05/2023 09:59 AM B/P: 136 mmHg/65 mmHg HR: 61 bpm Date of : 1945 Location: [facility] Height: 63 in. Age: 77 year(s) Patient [...] cm?? Aortic Va (more content not included)... [facility]07-04-2023 NoteCTA CHEST W AND/OR WO [...] 3 cusped view, anterior view and no ASSISTANT SIGNAL MAINTAINER-CAU view are obtained in 3-D volume rendered [...] diameter of 23 mm. Electronically signed: Fely Carrington.[facility] Comment on above:Order Comment: TAVR [id number] NoteCTA ABDOMEN PELVIS W AND/OR WO IV [...] spondylosis and levoconvex scoliosis. Electronically signed: Fely Carrington.[facility] 02-05-2023 NotePatient: Trisha Parish Procedure Information Date/Time: 02/05/23 1800 Procedures: Coronary angiography Right heart cath Valve assessment - Aortic valve Location: [facility] FIRE PROTECTION ENGINEERING TECHNICIAN 3 / [facility] (Cath) Providers: Herve Mayorga MD Clinical information reviewed: [facility] Meds Physical Exam Airway Mallampati: III Cardiovascular Rhythm: regular Dental Pulmonary Abdominal Anesthesia Plan ASA 3 other (Conscious sedation ) intravenous induction Anesthetic plan and risks discussed with patient. Use of blood products discussed with patient who. Additional [facility]sL[facility]07-[facility]-2023 Note Clinical Nutrition Assessment Name: [...] Goals: intake > 75% meals Alexander Chowdhury RDLakeHealth TriPoint Medical Center07-03-2023 NoteHospital Medicine Daily Progress Note - 02/05/2023 12:08 PM; Room: [facility] Admission: 02/04/2023 10:47 PM; Length of stay: 1 days THE HOSPITALIST TEAM PREFERS TO USE [employer] CHAT FOR COMMUNICATION 7AM-7PM. IF I DO NOT RESPOND WITHIN 15 MINUTES, PLEASE PAGE ME/CALL THROUGH THE PROM BURN OFF OPERATOR. FROM 7PM-7AM, PLEASE PAGE [phone](COVR) Code Status: Full Code Discharge Destination: home [...] 1.36 09/10/2022 Lab Results Component Value Date [id number] 177 (L) 09/10/2022 IRON 27 (L) 09/10/2022 TIBC 203 (L) 09/10/2022 Imaging ECG 12 lead Atrial-sensed ventricular-paced rhythm Abnormal ECG When compared with ECG of 10-SEP-2022 13:04, Electronic ventricular pacemaker has replaced Sinus rhythm Confirmed by Cheryl VALENTIN, MATILDA Robles ([id number]) on 02/05/2023 8:39:37 AM Discharge Planning Discharge Planning Has discharge transport been arranged?: No Signed Josr Ray NP Hospital Medicine 02/05/2023 12:08 PMLakeHealth TriPoint Medical Center07-03-2023 NoteHospital Medicine History and Physical 02/05/2023 12:23 AM THE HOSPITALIST TEAM PREFERS TO USE [employer] FOR COMMUNICATION 7AM-7PM. IF I DO NOT RESPOND WITHIN 15 MINUTES, PLEASE PAGE ME/CALL THROUGH THE PROM BURN OFF OPERATOR. FROM 7PM-7AM, PLEASE PAGE [phone](COVR) Chief Complaint Direct transfer History of Present Illness Trisha Parish is an 77 y.o. female who came from home with PMH of A-fib status post cryo maze and left atrial appendage clipping, CAD status post CABG, hypertension, recently placed PPM for 2-1 AV block, mitral valve regurgitation, carotid artery stenosis, CKD presents to hospital today as a direct admission from [facility] for near-syncope like event. Patient describes she [...] urgency which improved. Case was discussed by [facility] hospital with Dr. Wilks and patient [...] 02/05/2023 Pre-operative cardiovascular examination, recent myocardial infarction ([facility]) 10/06/2022 Atrial fibrillation ([facility]) 09/20/2022 Carotid artery stenosis 09/20/2022 Cerebrovascular accident ([facility]) 09/20/2022 Coronary arteriosclerosis 09/20/2022 Hypertensive disorder 09/20/2022 Heart block 09/10/2022 Hyperparathyroidism due to renal insufficiency ([facility]) 04/02/2019 Stage 4 chronic kidney disease ([facility]) 04/02/2019 Anemia 02/19/2017 Essential hypertension 02/19/2017 Malignant neoplasm of female breast ([facility]) 02/19/2017 Proteinuria 02/19/2017 Vitamin D deficiency 02/19/2017 Type 2 diabetes [place] 07[place]09/2014 Acute renal failure syndrome [place] 11/06/2013 Benign hypertensive renal disease 11/06/2013 Stage 3 chronic kidney disease ([facility] 11/06/2013 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 Past Medical History Past Medical History: Diagnosis Date A-fib (CMS/HCC) Cancer (CMS/HCC) Coronary artery disease Hypertension Myocardial infarct (CMS/HCC) Stroke (CMS/HCC) Past Surgical History Past Surgical History: Procedure Laterality Date BREAST SURGERY CHOLECYSTECTOMY CORONARY ARTERY BYPASS GRAFT HYSTERECTOMY Social History Social History Socioeconomic Histor (more content not included)...[facility]06-20-2023 NoteUT Electrophysiology Consult Note Reason [...] stenosis, CKD. She was recently admitted to [facility] for weakness, suspected to have a stroke [...] stroke who presented with generalized weakness to [facility]. At [facility], EKG demonstarted a 2:1 AV block with prolonged NC interval 266. Chest x-ray demonstrated possible trace [...] heart rate 59. Patient was transferred to [facility] for further evaluation by cardiology. She was [...] PMH: Past Medical History: Diagnosis Date A-fib ([facility]) Cancer ([facility]/HCC) Coronary artery disease Hypertension Myocardial infarct ([facility]) Stroke ([facility]) PSH: Past Surgical History: Procedure Laterality [...] mg chemo tablet anastrozole (more content not included)...[facility]06-14-2023 NoteUT Cardiology - [facility] Subjective Trisha Parish is [...] In September 2022 she was admitted to [facility] with weakness. She was found to have [...] (Pepcid) 20 mg tablet (more content not included)...[facility]02-03-2023 Evaluation note* Encounter Date Diagnosis [...] ultrasound thyroid from May 2022 with Trisha. [facility] Other 11-16-2021 NotePROCEDURE REPORT Specimen #: [id number] Submitting Physician: Abner Wheeler MD SPECIMEN SUBMITTED [...] developed and its performance characteristics determined by [facility] Pathology [facility] Laboratory Medicine [place] ([facility]). It has not been cleared or approved by the FDA. 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- Primary documented in this encounter [facility] HealthcareHistory general Narrative - Reported* Type Description Date Medical History CAD in tejon artery Medical History Diabetes mellitus ty pe 2, uncontrolled, without complications Medical History Chronic kidney disease, stage 3 unspecified Medical History Elevated glucose Medical History Right thyroid nodule Medical History Menopause Medical History Enlarged thyroid gland Medical History Anxiety, generalized Medical History Essential hypertension Surgical History CHOLECYSTECTOMY 2015 Surgical History LEFT BREAST MASTECTOMY Hospitalization History SEE SURGICAL HX [facility] Other History general Narrative - Reported* Type Description Date Medical History CAD in tejon artery Medical History Diabetes mellitus ty pe 2, uncontrolled, without complications Medical History Chronic kidney disease, stage 3 unspecified Medical History Elevated glucose Medical History Right thyroid nodule Medical History Menopause Medical History Enlarged thyroid gland Medical History Anxiety, generalized Medical History Essential hypertension Medical History Heart attack Surgical History CHOLECYSTECTOMY 2015 Surgical History LEFT BREAST MASTECTOMY Hospitalization History SEE SURGICAL HX [facility] Other Summary Purpose Family History No Family [...] 1 Post-nasal drip (R09 .82) Referral Organization [facility] Referring Provider First Name Sanya Referring Provider Last Name Rivka Referring Provider Specialty Family Medi cine Referred Organization [facility] Referred Address ,[place], [place],[address] Referred Provider Specialty Ear, Nose an d Throat Referral Priority Routine Additional Source Comments INFORMATION SOURCE (unrecogn ized section and content) DATE CREATED AUTHOR 05/01/2018 [facility] DATE CREATED AUTHOR AUTHOR'S ORGANIZ ATION 07/16/2018 [facility] DATE CREATED AUTHOR AUTHOR'S ORGANIZ ATION 06/23/2021 [facility] DATE CREATED AUTHOR AUTHOR'S ORGANIZ ATION 10/10/2022 [facility] DATE CREATED AUTHOR AUTHOR'S ORGANIZ ATION 03/09/2023 [facility] DATE CREATED AUTHOR AUTHOR'S ORGANIZ ATION 10/20/2023 [facility] EPIC DATE CREATED AUTHOR AUTHOR'S ORGANIZ ATION 12/02/2023 [facility] REASON FOR VISIT (unrecogniz ed section and content) Reason Comments Retinal Injection Care Teams (unrecognized sec tion and content) 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 [employer] provides no warranty or guarantee of the accuracy or completeness of information in this document.
--- NOTE | 2023-12-03 07:45 | US_ITS ---
The [address] [address] Patient Name: ELIJAH WELCH MRN: [id number] date: 1945 Sex: F Assigned Patient Location: [place] Current Patient Location: Accession/Order Number: [id number] Exam Date: 12/03/2023 07:46 Report Date: 12/04/2023 06:48 At the request of: CHEN ROSAS Procedure: US right upper quadrant EXAMINATION: US right upper quadrant HISTORY: Pancreatitis , epigastric pain COMPARISON: CT abdomen pelvis 11/24/2023 TECHNIQUE: Transabdominal evaluation of the right upper quadrant. FINDINGS: LIVER: Normal size and echotexture. Color Doppler demonstrates patent hepatic veins. PORTAL VEIN: Duplex Doppler demonstrates normal hepatopetal flow pattern with flow velocity averaging 40 cm/s. GALLBLADDER: Cholecystectomy. Echogenic foci within region of gallbladder fossa felt correspond to numerous surgical clips seen on prior CT study. BILIARY: No abnormal dilation or stones. Common bile duct diameter is within normal limits. PANCREASE: Heterogeneous poorly defined pancreas partly due to overlying bowel gas. Slightly echogenic areas within head of pancreas, but no corresponding calcifications on prior CT study. Small cyst versus area of dilated duct within tail. KIDNEY: No hydronephrosis. No visible mass or stones. Size: 10.1 x 5.2 x 4.0 cm US/US right upper quadrant IMPRESSION: 1. Suspect pancreatitis, but underlying mass cannot be excluded. Follow-up CT abdomen without and with IV contrast or MRI is recommended for further evaluation. Electronically authenticated by: DIAMOND HILARIO Date: 12/04/2023 06:48
== END 2023-12-03 07:40 | disposition home or self-care (01) ==
LOC: US 07:39
PROVIDERS: PCP Family Medicine; Visit Provider Personal Emergency Response Attendant
DX: K85.90 Acute pancreatitis without necrosis or infection, unspecified (principal)
CPT/HCPCS: 76705

== ENCOUNTER 2023-12-05 11:00 | Outpatient (OUT) | payer MEDICARE, SELFPAY ==
[2023-12-05 11:42] LABS: Basophils Percent Auto 0.5 % (0.2-2.0); Eosinophils Absolute Auto 0.3 10^3/uL (0.0-0.7); Eosinophils Percent Auto 4.4 % (0.9-7.0); Hematocrit 28.8 % (36.0-48.0); Hemoglobin 9.1 g/dL (12.0-16.0); Immature Granulocytes Abs Auto 0.01 10^3/uL (0.00-0.03); Immature Granulocytes Pct Auto 0.2 % (0.0-0.5); Lymphocytes Absolute Auto 0.9 10^3/uL (1.2-3.8); Lymphocytes Percent Auto 13.7 % (20.5-60.0); Mean Corpuscular HGB Conc 31.6 g/dL (29.9-35.2); Mean Corpuscular Hemoglobin 29.3 pg (26.7-34.0); Mean Corpuscular Volume 92.6 fL (81.0-99.0); Mean Platelet Volume 12.8 fL (9.5-13.5); Monocytes Absolute Auto 0.5 10^3/uL (0.3-0.8); Monocytes Percent Auto 8.3 % (1.7-12.0); Neutrophils Absolute Auto 4.7 10^3/uL (1.4-6.5); Neutrophils Percent Auto 72.9 % (43.0-75.0); Platelet Count 125 10^3/uL (150-450); Red Blood Count 3.11 10^6/uL (4.20-5.40); Red Cell Distribution Width 14.3 % (11.0-15.0); White Blood Count 6.4 10^3/uL (4.0-11.0)
[2023-12-05 13:13] LABS: Alanine Aminotransferase 39 U/L (14-59); Albumin Globulin Ratio 0.9; Albumin Level 3.1 g/dL (3.4-5.0); Alkaline Phosphatase 104 U/L (46-116); Anion Gap 14.3; Aspartate Amino Transferase 33 U/L (15-37); BUN Creatinine Ratio 23.1; Carbon Dioxide 22.1 mmol/L (21.0-32.0); Chloride 108 mmol/L (98-107); Estimated GFR (African America 30 (>=60); Estimated GFR (Non-African Ame 25 (>=60); Globulin 3.4 g/dL; Glucose 218 mg/dL (74-106); Potassium 4.4 mmol/L (3.5-5.1); Sodium 140 mmol/L (136-145); Total Protein 6.5 g/dL (6.4-8.2)
== END 2023-12-05 11:01 | disposition home or self-care (01) ==
LOC: LAB 11:02
PROVIDERS: PCP Family Medicine; Visit Provider Family Medicine
DX: D64.9 Anemia, unspecified (principal); N18.32 Chronic kidney disease, stage 3b; K85.90 Acute pancreatitis without necrosis or infection, unspecified; K86.89 Other specified diseases of pancreas
CPT/HCPCS: 36415; 80053; 83690; 85025

== ENCOUNTER 2024-01-01 14:03 | Outpatient (OUT) | payer MEDICARE, SELFPAY ==
[2024-01-02 04:07] LABS: CA 19-9 8452 U/mL (0-35); CEA 7.4 ng/mL (0.0-4.7)
== END 2024-01-01 14:04 | disposition home or self-care (01) ==
LOC: LAB 14:05
PROVIDERS: PCP Family Medicine
DX: C16.9 Malignant neoplasm of stomach, unspecified (principal); C25.8 Malignant neoplasm of overlapping sites of pancreas
CPT/HCPCS: 36415; 82378; 86301

== ENCOUNTER 2024-02-10 14:19 | Observation (INO) | payer MEDICARE, SELFPAY ==
[2024-02-10] VITALS (24 sets, daily range): BP systolic 151–214; BP diastolic 63–109; PULSE 69–91; TEMP 36.6–36.8; O2SAT 95–100; BMI 21.5; BMI 21.6
--- OUTSIDE RECORDS SUMMARY | 2024-02-10 14:28 | XMS_ITS | CCD ---
Author Organization [facility] Care Team Providers Care [employer] Superintendent Name Role Phone WALLACE, SADI P Unavailable [...] Care Unavailable AKKINA, SHARITA Consulting Unavailable AKKINA, HSARITA Consulting Unavailable AKKINA, SHARITA Admitting Unavailable RIVKA, [...] DR SANYA De La Torre Consulting Unavailable Sanya Tineo MD Primary Care Provider DIRK ONEILL Attending Unavailable ZOEY HERRING Referring Unavailable DIRK ONEILL Attending Unavailable JENNIFER MORALES Attending Unavailable SANYA TINEO Referring Unavailable TIMMIJENNIFER Lane Attending Unavailable DIRK ONEILL Attending Unavailable ALVAREZ, MARGARET Referring Unavailable ALVAREZ, MARGARET Referring Unavailable TIEN, TU Referring Unavailable ANDREA QUARLES Referring Unavailab le ALVAREZ, MARGARET Referring Unavailable MOUKARBEL, TOÑO Referring Unavailable BRITTANYMANDI Attending Unavailable MOUKARBEL, TOÑO Admitting Unavailable MOUKARBEL, TOÑO Attending Unavailable TIEN, TU Admitting Unavailable JOSR RAY Referring Unavailable BEBO MCNULTY Attending Unavailable ALVAREZ, MARGARET Referring Unavailable MOUKARBEL, TOÑO Referring Unavailable BRITTANY, MANDI Referring Unavailable MOUKARBEL, TOÑO Attending Unavailable TAYLOR PIÑA Attending Unavailable MOUKARBEL, TOÑO Attending Unavailable MOUKARBEL, TOÑO Attending Unavailable ANDREA QUARLES Referring Unavailab le MOUKARBEL, TOÑO Attending Unavailable TIEN, TU Referring Unavailable MOUKARBEL, TOÑO Referring Unavailable MOUKARBEL, TOÑO Attending Unavailable MOUKARBEL, TOÑO Referring Unavailable TIEN, TU Referring Unavailable Aman Capellan MD Unavailable Sanya Tineo MD Primary Care Provider [phone] Edwardo Hanna MD Unavailable SMOOTH COELHO Attending Unavailable AMAN CAPELLAN Referring Unavailable TINEO, SANYA E Primary Care Unavailable MAURICIO, SHANON J Referring Unavailable TINEO, SANYA E Primary Care Unavailable MAURICIO, SHANON J Referring Unavailable RIVKA, SANYA E Primary Care Unavailable MD Sanya Tineo Primary Care Provider MD Keyla Lua Attending Provider [phone] NON STAFF Referring Provider Unavailable EDWARDO HANNA Attending Unavailable TINEO, SANYA E Referring Unavailable TINEO, SANYA E Primary Care Unavailable RIVKA, SANYA E Primary Care Unavailable MD Sanya Tineo Primary Care Provider [phone] MD Keyla Lua Attending Provider [phone] NON STAFF Referring Provider Unavailable Keyla Lua Admitting Unavailable Tineo, Sanya E Primary Care Unavailable NON STAFF Referring Unavailable Keyla Lua Attending Unavailable Mikel Mir Attending Unavailable Jailene Quesada Admitting Unavailable Tineo, Sanya E Primary Care Unavailable Allergies Allergy Classification Reported Allergen(s) Allergy Type Date of Onset Reaction(s) Facility (2 sources) Meperidine Drug Allergy 06-16-2009 [facility] Repository (19 sources) Meperidine; Translations: [MEPERIDINE] Drug Allergy 09-10-2022 [facility] Work Phone: (1 source) Meperidine Drug Allergy 08-28-2023 [facility] (1 source) Meperidine Drug Allergy 01-28-2024 [facility] Repository Medications Current Medications Medication Drug Class(es) Dates Sig (Normalized) Sig (Original) amoxicillin 500 mg oral capsule (3 sources) [...] day Active atorvastatin 80 mg oral tablet (18 sources) HMG-CoA Reductase Inhibitor Start: 02-17-2023 take 80 mg by mouth once daily at bedtime Atorvastatin Active 80 MG PO Daily at bedtime February 17, 2023 12:00am azithromycin 250 mg oral tablet (2 sources) Macrolide Antimicrobial Start: 05-11-2023 Azithromycin 250 MG as directed Orally 2 tabs po today, then 1 tab daily x 4 more days for 5 May, Active carvedilol 25 mg oral tablet (20 sources) alpha-Adrenergic Martín, beta-Adrenergic Martín Start: 11-03-2023 take 1 tablet by mouth twice daily Carvedilol Active 0 .ROUTE .COMPLEX 180 November 03, 2023 9:19am TAKE 1 TABLET BY MOUTH TWICE A DAY Start: 02-17-2023 End: 11-03-2023 take 25 mg by mouth twice daily Carvedilol Discontinued 25 MG PO Twice daily 180 90 September 18, 2023 9:40am November 03, 2023 9:19am cholecalciferol 0.05 mg oral capsule (13 sources) Vitamin D Start: 04-29-2024 take 1 capsule by mouth once daily Cholecalciferol (Vitamin D3) Active 50 MCG PO Daily December 03, 2023 12:00am FreeTextSi capsule Orally Once a day; Note: Source Status: Taking; Provider: Rivka Haley ( ) Start: 02-17-2023 End: 12-05-2023 take 50 ug by mouth once daily Cholecalciferol (Vitami n D3) Discontinued 50 MCG PO Daily February 17, 2023 12:00am December 05, 2023 10:15am take 1 capsule by mo ut in the morning cholecalciferol (Vitamin D-3) 50 MCG (1999 UT) capsule Take 2,000 Units by mouth in the morning. 0 Active take 1 capsule by mo ut every twenty-four hours Vitamin D3 50 MCG (1999) 1 capsule Orally Once a day Active clopidogrel 75 mg oral tablet (18 sources) P2Y12 Platelet Inhibitor Start: 02-17-2023 take 75 mg by mouth once daily Clopidogrel Active 75 MG PO Daily February 17, 2023 12:00am Continuous Blood Gluc Sensor (FreeStyle Stephy 2 Sensor) misc (1 source) Continuous Blood Gluc Sensor (FreeStyle Stephy 2 Sensor) misc Flash Glucose Sensor (Freestyle Stephy 2 Sensor) kit (6 sources) Start: 01-14-2024 Flash Glucose Sensor (Freestyle Stephy 2 Sensor) kit Active 0 .ROUTE .COMPLEX 2 January 14, 2024 4:31pm USE DIRECTED Start: 01-14-2024 End: 01-14-2024 Flash Glucose Sensor (Freest yle Stephy 2 Sensor) kit Discontinued 0 .Route January 14, 2024 12:00am January 14, 2024 4:31pm As directed FreeStyle Stephy 14 Day [place] - (10 sources) FreeStyle Stephy 14 Day [place] - as directed Active FreeStyle Stephy 14 Day Sensor - (1 source) FreeStyle Stephy 14 Day Sensor - as directed Active FreeStyle Stephy 2 Sensor - (9 sources) FreeStyle Stephy 2 Sensor - USE DIRECTED for 28 Active hydrALAZINE hydrochloride 25 mg oral tablet (20 sources) Arteriolar Vasodilator Start: take 25 mg by mouth three times daily Hydralazine Active 25 MG PO Three times daily February 20, 2023 8:37am Start: 02-17-2023 End: 02-20-2023 take 25 mg by mouth twice daily Hydralazine Discontinued 25 MG PO Twice daily February 17, 2023 12:00am February 20, 2023 8:37am ketorolac tromethamine 5 mg/ml ophthalmic solution (1 source) Nonsteroidal Anti-inflammatory Drug, Cyclooxygenase Inhibitor Start: 08-21-2023 End: 09-20-2023 take 1 drop(s) into the eye(s) in the morning ketorolac (Acular) 0.5 % ophthalmic solution Indications: Age-related nuclear cataract of both eyes Administer 1 drop into affected eye(s) in the morning and 1 drop before bedtime. 5 mL 1 08/21/2023 09/20/2023 Active melatonin 3 mg oral tablet (9 sources) Start: 01-17-2024 take 3 mg by mouth once daily at bedtime Melatonin Active 3 MG PO Daily at bedtime January 17, 2024 12:00am take 1 tablet by kaleigh th every twenty-four hours Melatonin 3 MG 1 tablet at bedtime as needed Orally Once a day Active omeprazole 40 mg delayed release oral capsule (1 source) Proton Pump Inhibitor Start: 07-24-2023 End: 10-22-2023 take 1 capsule by mouth before mealtime omeprazole (PriLOSEC) [address] capsule Indications: LPRD (laryngopharyngeal reflux disease) Take 1 capsule (40 mg) by mouth in the morning. Take before meals. Do not crush or chew.. 90 capsule 0 07/24/2023 10/22/2023 Active oxyCODONE hydrochloride 5 mg oral tablet (1 source) Opioid Agonist Start: 01-28-2024 take 0.5-1 tablets by mouth every four to six hours as needed Oxycodone Active 0 PO EVERY 4-6 HOURS 40 January 28, 2024 0.5-1 tab orally every 4-6 hours PRN; predniSONE 20 mg oral tablet (2 sources) take 1 tablet by mouth every twenty-four hours predniSONE 20 MG 1 tablet Orally Once a day for 5 days Active sucralfate 1000 mg oral tablet (1 source) Aluminum Complex Start: 02-01-2024 take 1 g by mouth once before mealtime Sucralfate Active 1 GM PO 3x/Day before meals 90 February 01, 2024 12:00am Completed/Discontinued Medications Medication Drug Class(es) Dates Sig (Normalized) Sig (Original) ALPRAZolam 0.25 mg oral tablet (20 sources) Benzodiazepine Start: 07-17-2023 End: 01-28-2024 take 1 tablet by mouth twice daily as needed Alprazolam Discontinued 1 TAB PO Twice daily December 03, 2023 12:00am January 28, 2024 3:03pm FreeTextSi tablet Orally Twice a day prn; Note: Source Status: Refill; Provider: Rivka De La Torre 4 ml bevacizumab 25 mg/ml injection (2 sources) Vascular Endothelial Growth Factor Inhibitor Start: 08-28-2023 End: 08-28-2023 bevacizumab (Avastin) intravitreal chemo injection 1.25 mg calcitriol 0.89705 mg oral capsule (6 sources) Vitamin D3 Analog Start: 02-17-2023 End: 02-17-2023 Calcitriol Discontinued 0.25 MCG PO February 17, 2023 12:00am February 17, 2023 10:44pm take 1 capsule by [place] three times weekly Calcitriol 0.25 MCG 1 capsule Orally Thr ee times a Week Active docusate sodium 100 mg oral capsule (13 sources) Start: 02-17-2023 End: 12-05-2023 take 1 capsule by mouth once daily as needed Docusate Sodium Discontinued 100 MG PO Daily December 03, 2023 12:00am December 05, 2023 10:16am FreeTextSi capsule as needed Orally Once a day; Note: Source Status: Taking; Provider: Rivka Haley ( ) famotidine 20 mg oral tablet (4 sources) Histamine-2 Receptor Antagonist Start: 01-17-2024 End: 02-01-2024 take 20 mg by mouth once daily Famotidine Discontinued 20 MG PO Daily January 17, 2024 12:00am February 01, 2024 10:59am Start: 07-24-2023 End: 10-22-2023 take 1 tablet by mouth at bedtime famotidine (Pepcid) 20 MG tablet Indications: LPRD (laryngopharyngeal reflux disease) Take 1 tablet (20 mg) by mouth at bedtime 90 tablet 0 07/24/2023 10/22/2023 Active lisinopril 10 mg oral tablet (17 sources) Angiotensin Converting Enzyme Inhibitor Start: 02-20-2023 End: 12-05-2023 take 10 mg by mouth once daily Lisinopril Discontinued 10 MG PO Daily February 20, 2023 12:00am December 05, 2023 10:32am Start: 02-17-2023 End: 02-20-2023 take 40 mg by mouth once daily Lisinopril Discontinued 40 MG PO Daily February 17, 2023 12:00am February 20, 2023 8:34am take 1 tablet by kaleigh th every twenty-four hours Lisinopril 40 MG 1 tablet Orally Once a day Active take 1 tablet by kaleigh th every twenty-four hours Lisinopril 20 MG 1 tablet Orally Once a day Active 24 hr NIFEdipine 60 mg extended release oral tablet (20 sources) Dihydropyridine Calcium Channel Martín Start: 02-17-2023 End: 03-01-2024 take 1 tablet by mouth once daily Nifedipine Discontinued 60 MG PO Daily December 03, 2023 12:00am December 05, 2023 10:17am FreeTextSi tablet on an empty stomach Orally Once a day; Note: Source Status: Taking; Provider: Rivka Haley ( ) take 1 tablet by kaleigh th every twenty-four hours NIFEdipine ER 30 MG 1 tablet on an empty stomach Orally Once a day Active take 1 tablet by kaleigh th every twenty-four hours NIFEdipine ER 90 MG 1 tablet on an empty stomach Orally Once a day Active spironolactone 25 mg oral tablet (4 sources) Aldosterone Antagonist Start: 02-17-2023 End: 02-20-2023 take 25 mg by mouth once daily Spironolactone Discontinued 25 MG PO Daily February 17, 2023 12:00am February 20, 2023 8:34am take 1 tablet by kaleigh th every twenty-four hours Spironolactone 25 MG 1 tablet Orally Onc e a day Active Problems Active Problems Problem Classification Problem Date Documented Date Episodic/Chronic Abdominal pain (4 sources) Unspecified abdominal pain; Translations: [Abdominal pain] Onset: 4 Episodic Acute cerebrovascular disease (1 source) Cerebrovascular accident; Translations: [Cerebral infarction, unspecified] Onset: 3 07-19-2023 Chronic Acute myocardial infarction (5 sources) Myocardial infarction; Translations: [Non-ST elevation (NSTEMI) myocardial infarction] Onset: 3 07-19-2023 Chronic Administrative/socia l admission (7 sources) Patient encounter status; Translations: [Other specified counseling] 01-18-2024 Episodic Anal and rectal conditions (6 sources) Rectal mass; Translations: [Other specified diseases of anus and rectum] 12-05-2023 Episodic Anxiety disorders (13 sources) Generalized anxiety disorder; Translations: [Generalized anxiety disorder] Onset: 3 Chronic Cancer of breast (3 sources) Malignant neoplasm of overlapping sites of unspecified female breast; Translations: [Malignant tumor of breast ] Onset: 2 07-19-2023 Chronic Cancer of breast (8 sources) Personal history of malignant neoplasm of breast; Translations: [History of malignant neoplasm of breast] Onset: 2 Episodic Cancer of other GI organs; peritoneum (3 sources) Malignant neoplasm of gastrointestinal tract; Translations: [Malignant neoplasm of ill-defined sites within the digestive system] Onset: 4 01-03-2024 Chronic Cancer of pancreas (3 sources) Surgical pancreatic margin involved by malignant neoplasm; Translations: [Malignant neoplasm of pancreas, unspecified] Onset: 4 01-03-2024 Chronic Cancer of stomach (15 sources) Malignant tumor of body of stomach; Translations: [Malignant neoplasm of body of stomach] Onset: 4 01-03-2024 Chronic Cardiac dysrhythmias (4 sources) Unspecified atrial fibrillation; [...] not specified as acute or chronic Episodic Complications of surgical procedures or medical care (3 sources) Gastrointestinal complication of procedure; Translations: [Other postprocedural complications and disorders of digestive system] Onset: 4 01-03-2024 Episodic Conduction disorders (20 sources) Atrioventricular block, second degree; Translations: [Cardiac pacemaker in situ] Onset: 3 07-19-2023 Chronic Coronary atherosclerosis and other heart disease (20 sources) Atherosclerosis of coronary artery without angina pectoris; Translations: [Atherosclerotic heart disease of [place] coronary artery without angina pectoris] Onset: 3 Chronic Deficiency and other anemia (1 source) Anemia in chronic kidney disease; Translations: [ANEMIA IN CHRONIC KIDNEY DISEASE] Onset: 3 Chronic Deficiency and other anemia (4 sources) Anemia; Translations: [Anemia, unspecified] Onset: 7 07-19-2023 Episodic Deficiency and other anemia (3 sources) Anemia, unspecified; Translations: [Anemia, unspecified] 12-05-2023 Episodic Diabetes mellitus with complications (16 sources) Hyperglycemia due to type 2 diabetes mellitus; Translations: [Type 2 diabetes mellitus with hyperglycemia] Onset: 4 Chronic Diabetes mellitus without complication (6 sources) Type 2 diabetes mellitus; Translations: [Type 2 diabetes mellitus without complications] Onset: 3 07-19-2023 Chronic Diabetes mellitus without complication (11 sources) Hyperglycemia; Translations: [Other abnormal glucose] Onset: 2 Episodic Disorders of lipid metabolism (1 source) Pure hypercholesterolemia; Translations: [Pure hypercholesterolemia, unspecified] Onset: 3 07-19-2023 Chronic Esophageal disorders (1 source) Laryngopharyngeal reflux; Translations: [Gastro-esophageal reflux disease without esophagitis] Onset: 3 07-24-2023 Chronic Essential hypertension (20 sources) Essential hypertension; Translations: [Essential (primary) hypertension] Onset: 3 Chronic Heart valve disorders (20 sources) Aortic stenosis, non-rheumatic ; Translations: [Nonrheumatic [...] 3 Chronic Other aftercare (1 source) Other terminal superintendent (current) drug therapy; Translations: [OTH ALF CURRENT DRUG THERAPY] Onset: 3 Episodic Other aftercare (2 sources) Encounter for palliative care; Translations: [Encounter for palliative care] 01-28-2024 Episodic Other circulatory disease (1 source) Personal history of transient ischemic attack (TIA), and cerebral infarction without residual deficits; Translations: [PERS HX TIA AND CI NO RESID DEFICIT] Onset: 3 Episodic Other circulatory disease (2 sources) Personal history of other diseases of the circulatory system Episodic Other circulatory disease (3 sources) Low blood pressure; Translations: [Hypotension, unspecified] 12-05-2023 Episodic Other circulatory disease (3 sources) Hypotension, unspecified; Translations: [Hypotension, unspecified] 12-05-2023 Episodic Other diseases of kidney and ureters [...] left eye] Onset: 4 08-21-2023 Chronic Other liver diseases (1 source) High lipase level in serum; Translations: [Abnormal levels of other serum enzymes] 12-20-2023 Episodic Other liver diseases (2 sources) Abnormal levels of other serum enzymes; Translations: [Abnormal levels of other serum enzymes] Onset: 4 Episodic Other lower respiratory disease (1 source) Shortness of breath; Translations: [SHORTNESS OF BREATH] Onset: 3 Episodic Other lower respiratory disease (1 source) Chronic cough; Translations: [Chronic cough] Onset: 3 07-24-2023 Episodic Other nervous system disorders (2 sources) Pain due to neoplastic disease; Translations: [Neoplasm related pain (acute) (chronic)] 01-25-2024 Chronic Other nervous system disorders (2 sources) Neoplasm related pain (acute) (chronic); Translations: [Neoplasm related pain (acute) (chronic)] 01-28-2024 Chronic Other screening for suspected conditions (not mental disorders or infectious disease) (3 sources) Computed tomography result abnormal; Translations: [Abnormal findings on diagnostic imaging of other specified body structures] Onset: 4 12-20-2023 Chronic Other upper respiratory disease (1 source) Hoarse; Translations: [Dysphonia] Onset: 3 07-24-2023 Episodic Other upper respiratory infections (1 source) Postnasal drip Episodic Pancreatic disorders (not diabetes) (15 sources) Mass of pancreas; Translations: [Other specified diseases of pancreas] 12-05-2023 Episodic Residual codes; unclassified (11 sources) Asymptomatic [...] te Episodic/Chronic Acute and unspecified renal failure (5 sources) Acute renal failure syndrome; Translations: [Acute kidney failure, unspecified] Onset: 11-06-2013 07-19-2023 Episodic Conditions associated with dizziness or vertigo (3 sources) Postural dizziness; Translations: [Dizziness and giddiness] Onset: 02-05-2023 07-19-2023 Episodic Coronary atherosclerosis and other heart disease (3 sources) Presence of aortocoronary bypass graft; Translations: [PRESENCE AORTOCORONARY BYPASS GRAFT] Onset: 09-12-2022 Episodic Fluid and electrolyte disorders (4 sources) Hyperkalemia; Translations: [Hyperkalemia] Onset: 02-17-2023 07-18-2023 Episodic Genitourinary symptoms and ill-defined conditions (1 [...] Test Name Value Interpretation Reference Range Facility Capillary blood glucose cydney urement by glucometer (mass/volume)Ordered By: Keyla Lua on 01-30-2024 Glucose [Mass/Vol] 188 mg/dL Normal [facility] Comment on above: Random Glucose Refer ence Range is dependent on time and content of last meal. Glucose of more than 200 mg/dL in a nonstressed, ambulatory subject supports the diagnosis of Diabetes Mellitus. Result Comment: [place] om Glucose Reference Range is dependent on time and content of last meal. Glucose of more than 200 mg/dL in a nonstressed, ambulatory subject supports the diagnosis of Diabetes Mellitus. PERFORMED BY: [place] [address] PATHOLOGIST HABILITATION WORKER MELISSA QUINN M.D. Performed By: #### G LULS #### Point of Care testing , PET tumor init tx strat sb-m ton 01-30-2024 PET tumor init tx strat sb-mt [facility] [place] [address] Nuclear Medicine Report Signed Patient: Trisha Parish MR#: [id number] : 1945 Acct:[id number] Age/Sex: 78 / F ADM Date: 01/30/24 Loc: XT [facility]: [facility] Attending Dr: Keyla Lua MD Copies to: MD Alirio Johnston Jeffrey S DO Ordering Provider: Keyla Lua MD Date of Service: 01/30/24 PET/PET tumor init tx strat sb-mt: Staging gastric cancer PET/CT FUSION IMAGING CLINICAL INFORMATION: Gastric adenocarcinoma COMPARISON : CT abdomen and pelvis 12/02/2023 TECHNIQUE: Noncontrasted CT scan from the base of the skull to the upper thigh followed by PET imaging. Multiplanar PET/CT fusion images. The blood sugar is 188mg/dL. The F-18 FDG amount is 12.69mCi. FINDINGS: ORAL CAVITY: HYPERMETABOLISM: Physiologic hypermetabolism of the oral cavity is present. Although distribution may be major account representative of asymmetric physiologic uptake, if there is a continued clinical concern for hypermetabolic uptake secondary to malignancy, direct visualization recommended. ANTERIOR TWO THIRDS OF THE TONGUE: Unremarkable ROOF OF THE MOUTH: Unremarkable BUCCAL CAVITY: Unremarkable FLOOR OF THE MOUTH: Unremarkable DENTITION: Unremarkable TONSILS: Unremarkable PHARYNX: HYPERMETABOLISM: Physiologic uptake of the pharynx identified. Physiologic uptake can be asymmetrical. If there is continued clinical concern for a malignancy, direct visualization recommended. NASOPHARYNX: Unremarkable OROPHARYNX: Unremarkable TONGUE BASE: Unremarkable HYPOPHARYNX: Unremarkable EPIGLOTTIS: The epiglottis is normal. LARYNX: HYPERMETABOLISM: Physiologic uptake identified within the region of the larynx. This can be related to muscular activity. This may also be asymmetrical. There is continued clinical concern for malignancy, then direct visualization recommended. FALSE CORD: Unremarkable VESTIBULE: Unremarkable TRUE CORD: Unremarkable THYROID CARTILAGE: Unremarkable CRICOID CARTILAGE: Unremarkable NECK SPACES: HYPERMETABOLISM: There may be presence of mild hypermetabolism identified in the neck musculature which may be related to muscular activity. Some asymmetry may be present. Regions of concern which malignancy cannot be excluded are mentioned below. VISCERAL SPACE: Unremarkable CAROTID SPACE: Unremarkable RETROPHARYNGEAL SPACE: Unremarkable POSTERIOR CERVICAL SPACE: Unremarkable PREVERTEBRAL SPACE: Unremarkable CAROTID CIRCULATION AND JUGULAR VEINS No vascular abnormality identified. ADENOPATHY: HYPOMETABOLISM: There is mild hypermetabolism of cervical lymph nodes which are not pathologically enlarged. The SUV values are below 2.0 suggestive of a benign etiology. No significant adenopathy identified. The levels assessed include the submental and submandibular, upper jugular, mid jugular, lower jugular and medial supraclavicular, posterior triangle and supraclavicular, anterior cervical, retropharyngeal and retrostyloid, parotid, buccofacial, and retroauricular and occipital. SALIVARY GLANDS: HYPERMETABOLISM: There is appropriate hypermetabolism involving the salivary glands. There is no worrisome disproportionate uptake identified. There is no worrisome focal uptake identified. PAROTID GLANDS: Unremarkable SUBMANDIBULAR GLANDS: Unremarkable SUBLINGUAL GLANDS: Unremarkable THYROID GLAND: HYPERMETABOLISM: No abnormal increased hypermetabolism of the thyroid gland. Multiple thyroid nodules measuring up to 2 cm. AIRWAY: Central airway is patent. ESOPHAGUS: Esophagus normal course and caliber. HEART: Heart is not enlarged. Normal FDG uptake identified. PERICARDIAL EFFUSION: None CORONARY ARTERY CALCIFICATION: None MEDIASTINUM: Nonenlarged mediastinal lymph nodes identified. There is a mild amount of hypermetabolism of the mediastinal lymph nodes. The maximal SUV of the lymph nodes is below 2.0 suggestive of benign etiology. HILAR REGION: No hilar mass or adenopathy is seen. There is mild hypermetabolism of hilar lymph nodes. The maximal SUV value is less than 2.0 favoring benign etiology. THORACIC AORTA: No thoracic aortic aneurysm or dissection. No atherosclerosis LUNG INTERSTITIUM: No infiltrate or congestion identified. No worrisome regions of lung hypermetabolism identified. PLEURAL EFFUSION No pleural effusion identified. PNEUMOTHORAX: No pneumothorax seen. LUNG NODULE: No lung nodules identified. CHEST WALL: No chest wall abnormality seen. The bony chest intact. LIVER: No hepatic mass or intrahepatic biliary ductal dilatation is identified. Normal density of the liver parenchyma identified. The uptake of FDG throughout the liver is homogeneous without worrisome findings. GALLBLADDER: No gallbladder abnormalities identified. BILE DUCTS: No biliary duct dilatation identified. (more content not included)... Normal [facility] Cardiac device check - In Cl inicOrdered By: Shanon Martínez on 01-07-2024 [facility] Work Phone: Cardiac device check - In Cl inicon 01-07-2024 Radiology Study observation (narrative) [facility] Work Phone: XR CHEST 2 VIEWSon 4 XR CHEST 2 VIEWS Interpreted By: Chalino Jackson, STUDY: XR CHEST 2 VIEWS; 01/07/2024 1:47 pm INDICATION: Signs/Symptoms:MRI CLEARANCE. COMPARISON: No prior ACCESSION NUMBER(S): [id number] ORDERING CLINICIAN: SHANON MARTÍNEZ FINDINGS: Left-sided pacemaker in place. Mediastinal wires. CARDIOMEDIASTINAL SILHOUETTE: Cardiomediastinal silhouette is normal in size and configuration. LUNGS: Lungs are clear. There is no consolidation or effusion ABDOMEN: No remarkable upper abdominal findings. BONES: No acute osseous changes. IMPRESSION: 1. No evidence of acute cardiopulmonary process. MACRO: None Signed by: Chalino Whaley 01/08/2024 7:53 PM Dictation workstation: [id number] Normal [facility] [place] Amylaseon 01-03-2024 Amylase [Catalytic activity/Vol] 61 U/L 29 - 103 U/L [facility] Amylase [Catalytic activity/Vol] 61 U/L Normal 29-103 [facility] Comment on above: Performed By: #### 1 798-8 #### JENNYFER Brunson ([id number]) [facility] [address] [place] [address] Amylase [Catalytic activity/ Vol]on 01-03-2024 Interpretation and review of laboratory results Normal [facility] CBC W Auto Differential pane l (Bld)on 01-03-2024 Basophils (Bld) [#/Vol] 0.02 10*3/uL [facility] Basophils/100 WBC (Bld) 0.4 % 0.0 - 2.0 % [facility] Eosinophils (Bld) [#/Vol] 0.17 10*3/uL [facility] Eosinophils/100 WBC (Bld) 3.1 % 0.0 - 6.0 % [facility] Erythrocyte distribution width (RBC) [Ratio] 13.9 % 11.5 - 14.5 % [facility] Hematocrit (Bld) [Volume fraction] 32.2 % Low 36.0 - 46.0 % [facility] Hemoglobin (Bld) [Mass/Vol] 10.3 g/dL Low 12.0 - 16.0 g/dL [facility] Immature granulocytes (Bld) [#/Vol] 0.01 10*3/uL [facility] Immature granulocytes/100 WBC (Bld) 0.2 % 0.0 - 0.9 % [facility] Comment on above: Immature Granulocyte Count (IG) includes promyelocytes, myelocytes and metamyelocytes but does not include bands. Percent differential counts (%) should be interpreted in the context of the absolute cell counts (cells/UL). Interpretation and review of laboratory results Abnormal [facility] Lymphocytes (Bld) [#/Vol] 1.02 10*3/uL [facility] Lymphocytes/100 WBC (Bld) 18.8 % 13.0 - 44.0 % [facility] MCH (RBC) [Entitic mass] 29.3 pg 26.0 - 34.0 pg [facility] MCHC (RBC) [Mass/Vol] 32.0 g/dL 32.0 - 36.0 g/dL [facility] MCV (RBC) [Entitic vol] 92 fL 80 - 100 fL [facility] Monocytes (Bld) [#/Vol] 0.31 10*3/uL [facility] Monocytes/100 WBC (Bld) 5.7 % 2.0 - 10.0 % [facility] Neutrophils (Bld) [#/Vol] 3.90 10*3/uL [facility] Comment on above: Percent differential counts (%) should be interpreted in the context of the absolute cell counts (cells/uL). Neutrophils/100 WBC (Bld) 71.8 % 40.0 - 80.0 % [facility] Nucleated RBC/100 WBC (Bld) [Ratio] 0.0 % [facility] Platelets (Bld) [#/Vol] 145 10*3/uL Low [facility] RBC (Bld) [#/Vol] 3.52 10*6/uL [facility] WBC (Bld) [#/Vol] 5.4 10*3/uL [facility] Basophils (Bld) [#/Vol] 0.02 x10*3/uL Normal 0.00-0.10 [facility] Comment on above: Performed By: #### 5 7021-8 #### GENE ADKINS ([id number]) [facility]) [address] [place] [address] Basophils/100 WBC (Bld) 0.4 % Normal 0.0-2.0 [facility] Comment on above: Performed By: #### 5 7021-8 #### GENE ADKINS ([id number]) [facility]) [address] [place] [address] Eosinophils (Bld) [#/Vol] 0.17 x10*3/uL Normal 0.00-0.40 [facility] Comment on above: Performed By: #### 5 7021-8 #### GENE ADKINS ([id number]) [facility]) [address] [place] [address] Eosinophils/100 WBC (Bld) 3.1 % Normal 0.0-6.0 [facility] Comment on above: Performed By: #### 5 7021-8 #### GENE ADKINS ([id number]) [facility]) [address] [place] [address] Erythrocyte distribution width (RBC) [Ratio] 13.9 % Normal 11.5-14.5 [facility] Comment on above: Performed By: #### 5 7021-8 #### GENE ADKINS ([id number]) [facility]) [address] [place] [address] Hematocrit (Bld) [Volume fraction] 32.2 % Low 36.0-46.0 [facility] Comment on above: Performed By: #### 5 7021-8 #### GENE ADKINS ([id number]) [facility]) [address] [place] [address] Hemoglobin (Bld) [Mass/Vol] 10.3 g/dL Low 12.0-16.0 [facility] Comment on above: Performed By: #### 5 7021-8 #### GENE ADKINS ([id number]) [facility] [address] [place] [address] Immature granulocytes (Bld) [#/Vol] 0.01 x10*3/uL Normal 0.00-0.50 [facility] Comment on above: Performed By: #### 5 7021-8 #### GENE ADKINS ([id number]) [facility]) [address] [place] [address] Immature granulocytes/100 WBC (Bld) 0.2 % Normal 0.0-0.9 [facility] Comment on above: Result Comment: Chikis ture Granulocyte Count (IG) includes promyelocytes, myelocytes and metamyelocytes but does not include bands. Percent differential counts (%) should be interpreted in the context of the absolute cell counts (cells/UL). Performed By: #### 5 7021-8 #### GENE ADKINS ([id number]) [facility] [address] [place] [address] Lymphocytes (Bld) [#/Vol] 1.02 x10*3/uL Normal 0.80-3.00 [facility] Comment on above: Performed By: #### 5 7021-8 #### GENE ADKINS ([id number]) [facility] [address] [place] [address] Lymphocytes/100 WBC (Bld) 18.8 % Normal 13.0-44.0 [facility] Comment on above: Performed By: #### 5 7021-8 #### GENE ADKINS ([id number]) [facility] [address] [place] [address] MCH (RBC) [Entitic mass] 29.3 pg Normal 26.0-34.0 [facility] Comment on above: Performed By: #### 5 7021-8 #### GENE ADKINS ([id number]) [facility] [address] [place] [address] MCHC (RBC) [Mass/Vol] 32.0 g/dL Normal 32.0-36.0 [facility] Comment on above: Performed By: #### 5 7021-8 #### GENE You'TUNDE ([id number]) [facility] [address] [place] [address] MCV (RBC) [Entitic vol] 92 fL Normal 80-100 [facility] Comment on above: Performed By: #### 5 7021-8 #### GENE You'TUNDE ([id number]) [facility] [address] [place] [address] Monocytes (Bld) [#/Vol] 0.31 x10*3/uL Normal 0.05-0.80 [facility] Comment on above: Performed By: #### 5 7021-8 #### GENE You'TUNDE ([id number]) [facility] [address] [place] [address] Monocytes/100 WBC (Bld) 5.7 % Normal 2.0-10.0 [facility] Comment on above: Performed By: #### 5 7021-8 #### GENE You'TUNDE ([id number]) [facility] [address] [place] [address] Neutrophils (Bld) [#/Vol] 3.90 x10*3/uL Normal 1.60-5.50 [facility] Comment on above: Result Comment: Perc ent differential counts (%) should be interpreted in the context of the absolute cell counts (cells/uL). Performed By: #### 5 7021-8 #### GENE You'TUNDE ([id number]) [facility] [address] [place] [address] Neutrophils/100 WBC (Bld) 71.8 % Normal 40.0-80.0 [facility] Comment on above: Performed By: #### 5 7021-8 #### GENE You'TUNDE ([id number]) [facility] [address] [place] [address] Nucleated RBC/100 WBC (Bld) [Ratio] 0.0 /100 WBCs Normal 0.0-0.0 [facility] Comment on above: Performed By: #### 5 7021-8 #### GENE ADKINS ([id number]) [facility] [address] [place] [address] Platelets (Bld) [#/Vol] 145 x10*3/uL Low 150-450 [facility] Comment on above: Performed By: #### 5 7021-8 #### GENE ADKINS ([id number]) [facility] [address] [place] [address] RBC (Bld) [#/Vol] 3.52 x10*6/uL Low 4.00-5.20 [facility] Comment on above: Performed By: #### 5 7021-8 #### GENE ADKINS ([id number]) [facility] [address] [place] [address] WBC (Bld) [#/Vol] 5.4 x10*3/uL Normal 4.4-11.3 [facility] Comment on above: Performed By: #### 5 7021-8 #### GENE ADKINS ([id number]) [facility]) [address] [place] [address] Cancer Ag 19-9on 01-03-2024 Cancer Ag 19-9 Qn 8223.03 [arb'U]/mL High <35.00 [facility] Comment on above: Order Comment: CA 19 -9 testing is performed by chemiluminescent immunoassay using the [employer]. Values obtained with different analytic methods cannot be used interchangeably. Serum CA 19-9 measurement is indicated for the serial measurement of CA 19-9 to aid in the management of patients diagnosed with cancers of the exocrine pancreas. This assay is not intended for screening or diagnosis of cancer in the general population. The results must not be used as the sole means for clinical diagnosis or patient management decisions. Patients known to be genotypically negative for the Clifton blood group antigens will be unable to produce CA 19-9 antigen, even in malignant tissue. Phenotyping for the presence of the Clifton antigen may be insufficient to detect true Clifton antigen negative individuals. The results must not be used as the sole means for clinical diagnosis or patient management decisions. Performed By: #### 2 4108-3 #### JENNYFER Brunson ([id number]) [facility] [address] [place] [address] Cancer Ag 19-9 Qnon 01-03-20 24 Interpretation and review of laboratory results Abnormal [facility] CA 19-9 testing is performed by chemiluminescent immunoassay using the Siemens Atellica. Values obtained with different analytic methods cannot be used interchangeably. Serum CA 19-9 measurement is indicated for the serial measurement of CA 19-9 to aid in the management of patients diagnosed with cancers of the exocrine pancreas. This assay is not intended for screening or diagnosis of cancer in the general population. The results must not be used as the sole means for clinical diagnosis or patient management decisions. Patients known to be genotypically negative for the Clifton blood group antigens will be unable to produce CA 19-9 antigen, even in malignant tissue. Phenotyping for the presence of the Clifton antigen may be insufficient to detect true Clifton antigen negative individuals. The results must not be used as the sole means for clinical diagnosis or patient management decisions. [facility] Cancer Antigen 19-9on 2023 Cancer Ag 19-9 Qn 8223.03 [arb'U]/mL High NINF - 35.00 U/mL [facility] Carcinoembryonic Agon 2023 Carcinoembryonic Ag [Mass/Vol] 5.2 ug/L Normal [facility] Comment on above: Order Comment: REF V ALUES NONSMOKERS 0-2.5 SMOKERS 0-5.0 CEA testing is performed by chemiluminescent immunoassay using the Siemens Atellica. Values obtained with different analytic methods cannot be used interchangeably. Serum CEA measurement is intended for use as an aid in the management of patients previously treated for cancer. This assay is not intended for screening or diagnosis of cancer in the general population. The results must not be used as the sole means for clinical diagnosis or patient management decisions. Performed By: #### 2 039-6 #### JENNYFER Brunson ([id number]) [facility] [address] [place] [address] Coagulation tissue factor in ducedon 01-03-2024 PT Coag (PPP) [Time] 14.6 s High 9.8-12.8 [facility] Comment on above: Performed By: #### 5 902-2 #### JENNYFER Brunson ([id number]) [facility] [address] [place] [address] Comprehensive metabolic 2000 panelon 01-03-2024 Albumin BCP dye [Mass/Vol] 4.1 g/dL 3.4 - 5.0 g/dL [facility] ALP [Catalytic activity/Vol] 111 U/L 33 - 136 U/L [facility] ALT With P-5'-P [Catalytic activity/Vol] 37 U/L 7 - 45 U/L [facility] Comment on above: Patients treated wit h Sulfasalazine may generate falsely decreased results for ALT. Anion gap [Moles/Vol] 15 mmol/L 10 - 20 mmol/L [facility] AST With P-5'-P [Catalytic activity/Vol] 42 U/L High 9 - 39 U/L [facility] Bilirubin [Mass/Vol] 0.9 mg/dL 0.0 - 1.2 mg/dL [facility] Calcium [Mass/Vol] 9.3 mg/dL 8.6 - 10. 3 mg/dL [facility] Chloride [Moles/Vol] 106 mmol/L 98 - 107 mmol/L [facility] CO2 [Moles/Vol] 22 mmol/L 21 - 32 mmol/L [facility] Creatinine [Mass/Vol] 1.67 mg/dL High 0.50 - 1.05 mg/dL [facility] GFR/1.73 sq M.predicted among non-blacks MDRD (S/P/Bld) [Vol rate/Area] 31 mL/min/{1.73_m2} Low - PINF [facility] Comment on above: Calculations of love mated GFR are performed using the 2020 CKD-EPI Study Refit equation without the race variable for the IDMS-Traceable creatinine methods. https://jasn.asnjournals.org/content//ASN.48728226 88 Glucose [Mass/Vol] 177 mg/dL High 74 - 99 mg/dL [facility] Interpretation and review of laboratory results Abnormal [facility] Potassium [Moles/Vol] 4.3 mmol/L 3.5 - 5.3 mmol/L [facility] Protein [Mass/Vol] 6.8 g/dL 6.4 - 8.2 g/dL [facility] Sodium [Moles/Vol] 139 mmol/L 136 - 145 mmol/L [facility] Urea nitrogen [Mass/Vol] 31 mg/dL High 6 - 23 mg/dL [facility] Albumin BCP dye [Mass/Vol] 4.1 g/dL Normal 3.4-5.0 [facility] Comment on above: Performed By: #### 2 4323-8 #### GENE ADKINS ([id number]) [facility] [address] [place] [address] ALP [Catalytic activity/Vol] 111 U/L Normal 33-136 [facility] Comment on above: Performed By: #### 2 4323-8 #### GENE ADKINS ([id number]) [facility] [address] [place] [address] ALT With P-5'-P [Catalytic activity/Vol] 37 U/L Normal 7-45 [facility] Comment on above: Result Comment: Jnaice ents treated with Sulfasalazine may generate falsely decreased results for ALT. Performed By: #### 2 4323-8 #### GENE ADKINS ([id number]) [facility] [address] [place] [address] Anion gap [Moles/Vol] 15 mmol/L Normal 10-20 [facility] Comment on above: Performed By: #### 2 4323-8 #### GENE ADKINS ([id number]) [facility] [address] [place] [address] AST With P-5'-P [Catalytic activity/Vol] 42 U/L High 9-39 [facility] Comment on above: Performed By: #### 2 4323-8 #### GENE ADKINS ([id number]) [facility] [address] [place] [address] Bilirubin [Mass/Vol] 0.9 mg/dL Normal 0.0-1.2 [facility] Comment on above: Performed By: #### 2 4323-8 #### GENE You'TUNDE ([id number]) [facility] [address] [place] [address] Calcium [Mass/Vol] 9.3 mg/dL Normal 8.6-10.3 [facility] Comment on above: Performed By: #### 2 4323-8 #### GENE You'TUNDE ([id number]) [facility] [address] [place] [address] Chloride [Moles/Vol] 106 mmol/L Normal 98-107 [facility] Comment on above: Performed By: #### 2 4323-8 #### GENE ADKINS ([id number]) [facility] [address] [place] [address] CO2 [Moles/Vol] 22 mmol/L Normal 21-32 [facility] Comment on above: Performed By: #### 2 4323-8 #### GENE You'TUNDE ([id number]) [facility] [address] [place] [address] Creatinine [Mass/Vol] 1.67 mg/dL High 0.50-1.05 [facility] Comment on above: Performed By: #### 2 4323-8 #### GENE You'TUNDE ([id number]) [facility] [address] [place] [address] Glomerular filtration rate/1.73 sq M.predicted 31 mL/min/1.73m*2 Low >60 [facility] Comment on above: Result Comment: Calc ulations of estimated GFR are performed using the 2020 CKD-EPI Study Refit equation without the race variable for the IDMS-Traceable creatinine methods. https://jasn.asnjournals.org/content//ASN.33943763 88 Performed By: #### 2 4323-8 #### GENE You'TUNDE ([id number]) [facility] [address] [place] [address] Glucose [Mass/Vol] 177 mg/dL High 74-99 [facility] Comment on above: Performed By: #### 2 4323-8 #### GENE You'TUNDE ([id number]) [facility] [address] [place] [address] Potassium [Moles/Vol] 4.3 mmol/L Normal 3.5-5.3 [facility] Comment on above: Performed By: #### 2 4323-8 #### GENE You'TUNDE ([id number]) [facility] [address] [place] [address] Protein [Mass/Vol] 6.8 g/dL Normal 6.4-8.2 [facility] Comment on above: Performed By: #### 2 4323-8 #### GENE You'TUNDE ([id number]) [facility] [address] [place] [address] Sodium [Moles/Vol] 139 mmol/L Normal 136-145 [facility] Comment on above: Performed By: #### 2 4323-8 #### GENE You'TUNDE ([id number]) [facility] [address] [place] [address] Urea nitrogen [Mass/Vol] 31 mg/dL High 6-23 [facility] Comment on above: Performed By: #### 2 4323-8 #### GENE ADKINS ([id number]) [facility] [address] [place] [address] Lipaseon 01-03-2024 Lipase [Catalytic activity/Vol] 124 U/L High 9 - 82 U/L [facility] Lipase [Catalytic activity/V ol]on 01-03-2024 Interpretation and review of laboratory results Abnormal [facility] Venipuncture immedia tely after or during the administration of Metamizole may lead to falsely low results. Testing should be performed immediately prior to Metamizole dosing. [facility] PT Coag (PPP) [Time]on 01-02 INR Coag (PPP) [Relative time] 1.3 {INR} High 0.9 - 1.1 [facility] Interpretation and review of laboratory results Abnormal [facility] INR Coag (PPP) [Relative time] 1.3 High 0.9-1.1 [facility] Comment on above: Performed By: #### 5 902-2 #### JENNYFER Brunson ([id number]) [facility] [address] [place] [address] Protime-INRon 01-03-2024 PT Coag (PPP) [Time] 14.6 s High [facility] Triacylglycerol lipaseon Lipase [Catalytic activity/Vol] 124 U/L High 9-82 [facility] Comment on above: Order Comment: Venip uncture immediately after or during the administration of Metamizole may lead to falsely low results. Testing should be performed immediately prior to Metamizole dosing. Performed By: #### 3 040-3 #### JENNYFER Brunson ([id number]) [facility] [address] [place] [address] Serum or plasma cancer antig en 19-9 measurement (units/volume)on 01-01-2024 Cancer Ag 19-9 Qn 8452 [arb'U]/mL Abnormal 0-35 [facility] Comment on above: Results confirmed on dilution.[facility] Electrochemiluminescence Immunoassay(ECLIA)Values obtained with different assay methods or kits cannotbe used interchangeably. Results cannot be interpreted asabsolute evidence of the presence or absence of malignantdisease.Performed at: [facility] [id number] Director: Akash Nugent PhD, Phone: [phone] ENDOSCOPIC ULTRASOUND (UPPER )on 12-20-2023 ENDOSCOPIC ULTRASOUND (UPPER) Table formatting from the original result was not included. Impression The esophagus appeared normal. Irregular, ulcerated, homogeneous and hypoechoic T4 mass measuring 30 mm x 25 mm with poorly defined and irregular margins was visualized in the lesser curve of the stomach, originating in the mucosa and extending to the adventitia; performed cold forceps biopsy with partial removal; 2 fine needle aspiration passes were taken. An adequate sample of aspirate was obtained. The sample was sent for cytology and histology analysis; 2 fine needle biopsy passes were taken. An adequate sample was obtained. A sample was sent for histology analysis Stricture with length of 1 cm and diameter of 8 mm was visualized in the pylorus Moderate erythematous and granular mucosa in the major papilla; performed cold forceps biopsy The duodenal bulb appeared normal. The pancreas appeared atrophic. The parenchyma was visualized in the body of the pancreas and tail of the pancreas. The parenchyma was heterogeneous and had hyperechoic strands. Two oval, anechoic and unilocular cysts measuring 7 mm x 5 mm with connection with ducts and well-defined margins. The parenchyma was visualized in the left lobe and right lobe of the liver. The left kidney, spleen and left adrenal appeared normal. Findings The esophagus appeared normal. Irregular, ulcerated, homogeneous and hypoechoic T4 mass measuring 30 mm x 25 mm with poorly defined and irregular margins was visualized in the lesser curve of the stomach, observed with the scope at 50 cm from the GE junction, originating in the mucosa and extending to the adventitia; performed cold forceps biopsy with partial removal for sampling; 2 successful fine needle aspiration passes were taken with a 22 gauge needle using a transgastric approach guided by Doppler. An adequate sample of aspirate was obtained. The sample was sent for cytology and histology analysis. Onsite leadership recruiter was not present; 2 successful fine needle biopsy passes were taken with a 22 gauge needle guided by Doppler. An adequate sample was obtained. A sample was sent for histology analysis. Onsite leadership recruiter was not present Benign-appearing stricture (traversable) with length of 1 cm and diameter of 8 mm was visualized in the pylorus. J shape stomach both not traversable to endoscopic ultrasound scope and duodenal scope. Moderate, patchy erythematous and granular mucosa in the major papilla; performed cold forceps biopsy The duodenal bulb appeared normal. The pancreas appeared atrophic. The parenchyma was visualized in the body of the pancreas and tail of the pancreas. The parenchyma was heterogeneous and had hyperechoic strands. The pancreatic duct measured 2 mm at the body. 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 Pancreatic head was not evaluated Two oval, anechoic and unilocular cysts measuring 7 mm x 5 mm with connection with ducts and well-defined margins. The parenchyma was visualized in the left lobe and right lobe of the liver. Mild intrahepatic biliary duct dilation was noted The left kidney, spleen and left adrenal appeared normal. Recommendation Await pathology results Schedule for MRI/MRCP as outpatient Will discuss at multidisciplinary team meeting CEA, CA 19-9, LFTs Resume Plavix in [address] scan, Elevated lipase, Abdominal pain, unspecified abdominal location Staff Staff Role Smooth Coelho MD Proceduralist Medications See Anesthesia Record. Preprocedure A history and physical has been performed, and patient medication allergies have been reviewed. The patient's tolerance of previous anesthesia has been reviewed. The risks and benefits of the procedure and the sedation options and risks were discussed with the patient. All questions were answered and informed consent obtained. Details of the Procedure The patient underwent general anesthesia, which was administered by an anesthesia professional. The patient's blood pressure, heart rate, level of consciousness, oxygen, respirations, ECG and ETCO2 were monitored throughout the procedure. The radial scope was introduced through the mouth and advanced to the second part of the duodenum. The patient's estimated blood loss was minimal (<5 mL). The procedure was not difficult. The patient tolerated the procedure well. There were no apparent adverse events. Events Procedure Events Event Event Time ENDO SCOPE IN TIME 12/20/2023 12:27 PM ENDO SCOPE OUT TIME 12/20/2023 12:33 PM ENDO SCOPE IN TIME 12/20/2023 12:34 PM ENDO SCOPE OUT TIME 12/20/2023 12:56 PM ENDO SCOPE IN TIME 12/20/2023 12:58 PM ENDO SCOPE OUT TIME 12/20/2023 1:10 PM ENDO SCOPE IN TIME 12/20/2023 1:12 PM Specimens ID Type Source Tests Collected by Time 1 : ampulla biopsy Tissue DUODENUM SECOND PART BIOPSY SURGICAL PATHOLOGY EXAM Malik Quevedo 12/20/2023 1302 2 : lesser curvature Tissue STOMACH BODY/CORPUS BIOPSY SURGICAL PATHOLOGY EXAM [place] (more content not included)... [facility] Comment on above: Order Comment: EGD/E US Endoscopic Ultrasound (Upper )on 12-20-2023 Table formatting fro m the original result was not included. Impression The esophagus appeared normal. Irregular, ulcerated, homogeneous and hypoechoic T4 mass measuring 30 mm x 25 mm with poorly defined and irregular margins was visualized in the lesser curve of the stomach, originating in the mucosa and extending to the adventitia; performed cold forceps biopsy with partial removal; 2 fine needle aspiration passes were taken. An adequate sample of aspirate was obtained. The sample was sent for cytology and histology analysis; 2 fine needle biopsy passes were taken. An adequate sample was obtained. A sample was sent for histology analysis Stricture with length of 1 cm and diameter of 8 mm was visualized in the pylorus Moderate erythematous and granular mucosa in the major papilla; performed cold forceps biopsy The duodenal bulb appeared normal. The pancreas appeared atrophic. The parenchyma was visualized in the body of the pancreas and tail of the pancreas. The parenchyma was heterogeneous and had hyperechoic strands. Two oval, anechoic and unilocular cysts measuring 7 mm x 5 mm with connection with ducts and well-defined margins. The parenchyma was visualized in the left lobe and right lobe of the liver. The left kidney, spleen and left adrenal appeared normal. Findings The esophagus appeared normal. Irregular, ulcerated, homogeneous and hypoechoic T4 mass measuring 30 mm x 25 mm with poorly defined and irregular margins was visualized in the lesser curve of the stomach, observed with the scope at 50 cm from the GE junction, originating in the mucosa and extending to the adventitia; performed cold forceps biopsy with partial removal for sampling; 2 successful fine needle aspiration passes were taken with a 22 gauge needle using a transgastric approach guided by Doppler. An adequate sample of aspirate was obtained. The sample was sent for cytology and histology analysis. Onsite leadership recruiter was not present; 2 successful fine needle biopsy passes were taken with a 22 gauge needle guided by Doppler. An adequate sample was obtained. A sample was sent for histology analysis. Onsite leadership recruiter was not present Benign-appearing stricture (traversable) with length of 1 cm and diameter of 8 mm was visualized in the pylorus. J shape stomach both not traversable to endoscopic ultrasound scope and duodenal scope. Moderate, patchy erythematous and granular mucosa in the major papilla; performed cold forceps biopsy The duodenal bulb appeared normal. The pancreas appeared atrophic. The parenchyma was visualized in the body of the pancreas and tail of the pancreas. The parenchyma was heterogeneous and had hyperechoic strands. The pancreatic duct measured 2 mm at the body. 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 Pancreatic head was not evaluated Two oval, anechoic and unilocular cysts measuring 7 mm x 5 mm with connection with ducts and well-defined margins. The parenchyma was visualized in the left lobe and right lobe of the liver. Mild intrahepatic biliary duct dilation was noted The left kidney, spleen and left adrenal appeared normal. Recommendation Await pathology results Schedule for MRI/MRCP as outpatient Will discuss at multidisciplinary team meeting CEA, CA 19-9, LFTs Resume Plavix in [address] scan, Elevated lipase, Abdominal pain, unspecified abdominal location Staff Staff Role Smooth Coelho MD Proceduralist Medications See Anesthesia Record. Preprocedure A history and physical has been performed, and patient medication allergies have been reviewed. The patient's tolerance of previous anesthesia has been reviewed. The risks and benefits of the procedure and the sedation options and risks were discussed with the patient. All questions were answered and informed consent obtained. Details of the Procedure The patient underwent general anesthesia, which was administered by an anesthesia professional. The patient's blood pressure, heart rate, level of consciousness, oxygen, respirations, ECG and ETCO2 were monitored throughout the procedure. The radial scope was introduced through the mouth and advanced to the second part of the duodenum. The patient's estimated blood loss was minimal (<5 mL). The procedure was not difficult. The patient tolerated the procedure well. There were no apparent adverse events. Events Procedure Events Event Event Time ENDO SCOPE IN TIME 12/20/2023 12:27 PM ENDO SCOPE OUT TIME 12/20/2023 12:33 PM ENDO SCOPE IN TIME 12/20/2023 12:34 PM ENDO SCOPE OUT TIME 12/20/2023 12:56 PM ENDO SCOPE IN TIME 12/20/2023 12:58 PM ENDO SCOPE OUT TIME 12/20/2023 1:10 PM ENDO SCOPE IN TIME 12/20/2023 1:12 PM Specimens ID Type Source Tests Collected by Time 1 : ampulla biopsy Tissue DUODENUM SECOND PART BIOPSY SURGICAL PATH (more content not included)... [facility] Work Phone: [facility] Work Phone: Radiology Study observation (narrative) [facility] Work Phone: Glucose Test strip manual (B ld) [Mass/Vol]on 12-20-2023 Glucose [Mass/Vol] 177 mg/dL High 74-99 [facility] Comment on above: Performed By: #### 2 [id number] #### TOSHIA PORTILLO ([id number]) [facility] ([facility] [place]) [address] [place] [address] Glucose [Mass/Vol] 177 mg/dL High 74 - 99 mg/dL [facility] Interpretation and review of laboratory results Abnormal [facility] Non-forest fire lookout cytology studyon Non-gynecological cytology method study Pathology report.total SEE COMMENT Non-gynecologic Cytology Case: [id number] Authorizing Provider: Smooth Coelho MD Collected: 12/20/2023 1326 [place] [facility] [place]: 12/20/2023 1510 Pathologist: Meliza Roger MD Specimen: ABDOMINAL FINE NEEDLE ASPIRATION, latisha abdominal mass Path report.final diagnosis SEE COMMENT A. ABDOMINAL FINE NEEDLE ASPIRATION - latisha abdominal mass , CYTOLOGY AND CELL BLOCK: Satisfactory for evaluation No malignant cells identified. See [id number]. Laboratory comment SEE COMMENT Slide(s) initially screened by DOE Trejo at [facility] [address] [facility] [id number] By the signature on this report, the individual or group listed as making the Final Interpretation/Diagnosis certifies that they have reviewed this case. Path report.gross observation SEE COMMENT A. ABDOMINAL FINE NEEDLE ASPIRATION. Received 30 ml pink clear needle rinse in Cytolyt with particles. The specimen has been sent for cytological analysis to the cytology department at [facility]. Laboratory comment SEE COMMENT A1 Slides Only (No Block) A1-1 Pap Stain NGYN ThinPrep A2 Cell Block A2-1 H&E Normal Surgical pathology studyon 0 12-20-2023 Surgical pathology study Pathology report.total SEE COMMENT Surgical Pathology Case: [id number] Authorizing Provider: Smooth Coelho MD Collected: 12/20/2023 1302 [place] [facility] [place]ceived: 12/20/2023 1508 Pathologist: Cele Kraus MD Specimens: A) - DUODENUM SECOND PART BIOPSY, ampulla biopsy B) - STOMACH BODY/CORPUS BIOPSY, lesser curvature C) - STOMACH BODY/CORPUS BIOPSY, latisha abdominal mass fnb Path report.final diagnosis SEE COMMENT A. DUODENUM SECOND PART BIOPSY: -- Fragments of duodenal mucosa with chronic inflammation and mucosal prolapse features. B. 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 See note. Note: Immunohistochemical staining for mismatch repair protein has been ordered and the result will be issued as an addendum. This case was shared at the pathology gastrointestinal consensus Zoom conference on 12/28/2023. C. LATISHA ABDOMINAL MASS, FINE-NEEDLE BIOPSY: --Invasive adenocarcinoma involving cores of fibroconnective tissue and smooth muscle. Laboratory comment By the signature on this report, the individual or group listed as making the Final Interpretation/Diagnosis certifies that they have reviewed this case. Path report.addendum SEE COMMENT MISMATCH REPAIR PROTEIN EXPRESSION Protein: Result MLH-1: Expression Present PMS-2: Expression Present MSH-2: Expression Present MSH-6: Expression Present INTERPRETATION: Neoplasm with normal mismatch repair protein expression. The immunohistochemistry study of DNA mismatch repair protein expression reveals the normal presence of hMLH-1, hMSH2, hMSH6 and hPMS2 in the tumor (normal internal controls stain appropriately). Reference Range: A result is reported Expression Present if any tumor nuclei are stained positive. The findings do not exclude underlying Rushing Syndrome (HNPCC) because some mutation may result in intact protein expression. In addition, rare alterations can exist in other mismatch proteins, which have not been tested. In addition, some hereditary colorectal cancers are caused by alteration in other pathways unrelated to DNA Mismatch Repair. COMMENT: KEYTRUDA is indicated for the treatment of adult and pediatric patients with unresectable or metastatic microsatellite instability-high (MSI-H) or mismatch repair deficient (dMMR)solid tumors that have progressed following prior treatment and who have no satisfactory alternative treatment options, or colorectal cancer that has progressed following treatment with fluoropyrimidine, oxaliplatin, and irinotecan. This indication is approved under accelerated approval based on tumor response rate and durability of response. Continued approval for this indication may be contingent upon verification and description of clinical benefit in the confirmatory trials. The safety and effectiveness of KEYTRUDA in pediatric patients with MSI-H central nervous system cancers have not been established. References: Cipriano Coffey, et al. Phase 3, open-label, randomized study of first-line pembrolizumab (pembro) vs child support investigator-choice chemotherapy for mismatch repair-deficient (dMMR) or microsatellite instability-high (MSI-H) metastatic colorectal carcinoma (mCRC): KEYNOTE-177. (2017): [id number]. Lencho Ortiz, et al. KEYNOTE-164: Phase 2 study of pembrolizumab for patients with previously treated, microsatellite instability-high advanced colorectal carcinoma. (2016): [id number]. Deya Zee, et al. Safety and activity of pembrolizumab in patients with locally advanced or metastatic urothelial cancer (KEYNOTE-012): a non-randomized, open-label, phase 1b study. The Lancet Oncology (2017). Hal Brooke, et al. OA05. 01 Pembrolizumab in Patients with Extensive-Stage Small Cell Lung Cancer: Updated Survival Results from KEYNOTE-028. Journal of Thoracic Oncology 12.1 (2017): S259. Harley Truong, et al. Pembrolizumab for previously treated advanced cervical squamous cell cancer: Preliminary results from the phase 2 KEYNOTE-158 study. (2017): 5054-[address] Immunohistochemistry versus microsatellite instability testing for screening colorectal cancer patients at risk for Hereditary Nonpolyposis Colorectal Cancer Syndrome. Part1: The utility of immunohistochemistry. J Mol Diag 10(4):293-300, 2008. Nasra AM, Peter WL. Colorectal cancer due to deficiency in DNA mismatch repair function: a review. Adv. Malika Pathol 16: 405-17, 2009. NOTE: Immunohistochemical staining (IHC) is used to determine the presence or absence of protein expression MLH1, MSH2, MSH6 and PMS2. Lymphocytes and normal epithelial cells exhibit strong nuclear staining and serve as Expression Present internal controls for staining of these proteins. Infiltrating tumor cells exhibiting nuclear staining are considered: EXPRESSION PRESENT. MSI-H refers to instability in >30% of m (more content not included)... [facility] Basophils Auto (Bld) [#/Vol] on 12-05-2023 Basophils (Bld) [#/Vol] 0.0 10 3/uL 0.0-0.1 [facility] Basophils/100 WBC Auto (Bld) on 12-05-2023 Basophils/100 WBC (Bld) 0.5 % 0.2-2.0 [facility] Eosinophils/100 WBC Auto (Bl d)on 12-05-2023 Eosinophils/100 WBC (Bld) 4.4 % 0.9-7.0 [facility] Erythrocyte distribution wid th Auto (RBC) [Ratio]on 12-05-2023 Erythrocyte distribution width (RBC) [Ratio] 14.3 % 11.0-15.0 [facility] Estimated glomerular filtrat ion rate (GFR) non- Americanon 12-05-2023 GFR/1.73 sq M.predicted among non-blacks MDRD (S/P/Bld) [Vol rate/Area] 25 mL/min/{1.73_m2} Low >=60 [facility] Globulin Calc (S) [Mass/Vol] on 12-05-2023 Globulin (S) [Mass/Vol] 3.4 g/dL [facility] Hematocrit Auto (Bld) [Volum e fraction]on 12-05-2023 Hematocrit (Bld) [Volume fraction] 28.8 % Low 36.0-48.0 [facility] Hemoglobin [Mass/volume] in Bloodon 12-05-2023 Hemoglobin (Bld) [Mass/Vol] 9.1 g/dL Low 12.0-16.0 [facility] Laboratory - Chemistry and C hemistry - challengeon 12-05-2023 Albumin [Mass/Vol] 3.1 g/dL Low 3.4-5.0 [facility] ALP [Catalytic activity/Vol] 104 U/L 46-116 [facility] ALT [Catalytic activity/Vol] 39 U/L 14-59 [facility] AST [Catalytic activity/Vol] 33 U/L 15-37 [facility] Bilirubin [Mass/Vol] 1.0 mg/dL 0.2-1.0 [facility] Calcium [Mass/Vol] 9.0 mg/dL 8.5-10.1 [facility] Chloride [Moles/Vol] 108 mmol/L High 98-107 [facility] CO2 [Moles/Vol] 22.1 mmol/L 21.0-32.0 [facility] Creatinine [Mass/Vol] 1.95 mg/dL High 0.55-1.02 [facility] GFR/1.73 sq M.predicted MDRD (S/P/Bld) [Vol rate/Area] 30 mL/min/{1.73_m2} Low >=60 [facility] Glucose [Mass/Vol] 218 mg/dL High 74-106 [facility] Lipase [Catalytic activity/Vol] 124.0 U/L High 16.0-77.0 [facility] Potassium [Moles/Vol] 4.4 mmol/L 3.5-5.1 [facility] Protein [Mass/Vol] 6.5 g/dL 6.4-8.2 [facility] Sodium [Moles/Vol] 140 mmol/L 136-145 [facility] Urea nitrogen [Mass/Vol] 45.0 mg/dL High 7.0-18.0 [facility] Urea nitrogen/Creatinine [Mass ratio] 23.1 mg/mg [facility] Laboratory - Hematology and Cell countson 12-05-2023 Immature granulocytes/100 WBC (Bld) 0.2 % 0.0-0.5 [facility] Leukocytes [#/volume] correc sigifredo for nucleated erythrocytes in Blood by Automated counon 12-05-2023 WBC corrected for nucl RBC Auto (Bld) [#/Vol] 6.4 10 3/uL 4.0-11.0 [facility] Lymphocytes Auto (Bld) [#/Vo l]on 12-05-2023 Lymphocytes (Bld) [#/Vol] 0.9 10 3/uL Low 1.2-3.8 [facility] Lymphocytes/100 WBC Auto (Bl d)on 12-05-2023 Lymphocytes/100 WBC (Bld) 13.7 % Low 20.5-60.0 [facility] MCH Auto (RBC) [Entitic mass ]on 12-05-2023 MCH (RBC) [Entitic mass] 29.3 pg 26.7-34.0 [facility] MCHC Auto (RBC) [Mass/Vol]on 12-05-2023 MCHC (RBC) [Mass/Vol] 31.6 g/dL 29.9-35.2 [facility] MCV Auto (RBC) [Entitic vol] on 12-05-2023 MCV (RBC) [Entitic vol] 92.6 fL 81.0-99.0 [facility] Monocytes Auto (Bld) [#/Vol] on 12-05-2023 Monocytes (Bld) [#/Vol] 0.5 10 3/uL 0.3-0.8 [facility] Monocytes/100 WBC Auto (Bld) on 12-05-2023 Monocytes/100 WBC (Bld) 8.3 % 1.7-12.0 [facility] Neutrophils Auto (Bld) [#/Vo l]on 12-05-2023 Neutrophils (Bld) [#/Vol] 4.7 10 3/uL 1.4-6.5 [facility] Neutrophils/100 WBC Auto (Bl d)on 12-05-2023 Neutrophils/100 WBC (Bld) 72.9 % 43.0-75.0 [facility] No Panel Informationon 12-04 Eosinophils # (Auto) 0.3 10 3/uL 0.0-0.7 [facility] Immature Granulocyte # (Auto) 0.01 10 3/uL 0.00-0.03 [facility] Platelet mean volume Auto (B ld) [Entitic vol]on 12-05-2023 Platelet mean volume (Bld) [Entitic vol] 12.8 fL 9.5-13.5 [facility] Platelets Auto (Bld) [#/Vol] on 12-05-2023 Platelets (Bld) [#/Vol] 125 10 3/uL Low 150-450 [facility] RBC Auto (Bld) [#/Vol]on RBC (Bld) [#/Vol] 3.11 10 6/uL Low 4.20-5.40 [facility] Serum or plasma albumin/glob ulin mass ratioon 12-05-2023 Albumin/Globulin [Mass ratio] 0.9 {ratio} [facility] Serum or plasma anion gap de terminationon 12-05-2023 Anion gap [Moles/Vol] 14.3 mmol/L [facility] Activated partial thrombopla stin time (aPTT) in platelet poor plasma by coagulation aon 12-02-2023 aPTT Coag (PPP) [Time] 30.9 s 22.3-36.2 [facility] Basophils Auto (Bld) [#/Vol] on 12-02-2023 Basophils (Bld) [#/Vol] 0.0 10 3/uL 0.0-0.1 [facility] Basophils/100 WBC Auto (Bld) on 12-02-2023 Basophils/100 WBC (Bld) 0.3 % 0.2-2.0 [facility] Eosinophils/100 WBC Auto (Bl d)on 12-02-2023 Eosinophils/100 WBC (Bld) 3.7 % 0.9-7.0 [facility] Erythrocyte distribution wid th Auto (RBC) [Ratio]on 12-02-2023 Erythrocyte distribution width (RBC) [Ratio] 14.0 % 11.0-15.0 [facility] Estimated glomerular filtrat ion rate (GFR) non- Americanon 12-02-2023 GFR/1.73 sq M.predicted among non-blacks MDRD (S/P/Bld) [Vol rate/Area] 26 mL/min/{1.73_m2} Low >=60 [facility] Globulin Calc (S) [Mass/Vol] on 12-02-2023 Globulin (S) [Mass/Vol] 3.5 g/dL [facility] Hematocrit Auto (Bld) [Volum e fraction]on 12-02-2023 Hematocrit (Bld) [Volume fraction] 29.4 % Low 36.0-48.0 [facility] Hemoglobin [Mass/volume] in Bloodon 12-02-2023 Hemoglobin (Bld) [Mass/Vol] 9.7 g/dL Low 12.0-16.0 [facility] INR in Platelet poor plasma by Coagulation assayon 12-02-2023 INR Coag (PPP) [Relative time] 1.14 {INR} [facility] Comment on above: DESIRED INR:2.0-3.0 CONDITIONS NOT LISTED BELOW2.5-3.5 FOR PROSTHETIC HEART VALVE REPLACEMENT2.5-3.5 RECURRENT THROMBOSIS Laboratory - Chemistry and C hemistry - challengeon 12-02-2023 Albumin [Mass/Vol] 3.4 g/dL 3.4-5.0 [facility] ALP [Catalytic activity/Vol] 119 U/L High 46-116 [facility] ALT [Catalytic activity/Vol] 34 U/L 14-59 [facility] Amylase [Catalytic activity/Vol] 91 U/L 25-115 [facility] AST [Catalytic activity/Vol] 31 U/L 15-37 [facility] Bilirubin [Mass/Vol] 0.9 mg/dL 0.2-1.0 [facility] Calcium [Mass/Vol] 9.1 mg/dL 8.5-10.1 [facility] Chloride [Moles/Vol] 107 mmol/L 98-107 [facility] CO2 [Moles/Vol] 22.6 mmol/L 21.0-32.0 [facility] Creatinine [Mass/Vol] 1.85 mg/dL High 0.55-1.02 [facility] GFR/1.73 sq M.predicted MDRD (S/P/Bld) [Vol rate/Area] 32 mL/min/{1.73_m2} Low >=60 [facility] Glucose [Mass/Vol] 206 mg/dL High 74-106 [facility] Lactate [Moles/Vol] 1.2 mmol/L 0.4-2.0 [facility] Lipase [Catalytic activity/Vol] 179.0 U/L High 16.0-77.0 [facility] Potassium [Moles/Vol] 4.2 mmol/L 3.5-5.1 [facility] Protein [Mass/Vol] 6.9 g/dL 6.4-8.2 [facility] Sodium [Moles/Vol] 140 mmol/L 136-145 [facility] Urea nitrogen [Mass/Vol] 53.0 mg/dL High 7.0-18.0 [facility] Urea nitrogen/Creatinine [Mass ratio] 28.6 mg/mg [facility] Laboratory - Hematology and Cell countson 12-02-2023 Immature granulocytes/100 WBC (Bld) 0.3 % 0.0-0.5 [facility] Leukocytes [#/volume] correc sigifredo for nucleated erythrocytes in Blood by Automated counon 12-02-2023 WBC corrected for nucl RBC Auto (Bld) [#/Vol] 7.6 10 3/uL 4.0-11.0 [facility] Lymphocytes Auto (Bld) [#/Vo l]on 12-02-2023 Lymphocytes (Bld) [#/Vol] 0.9 10 3/uL Low 1.2-3.8 [facility] Lymphocytes/100 WBC Auto (Bl d)on 12-02-2023 Lymphocytes/100 WBC (Bld) 11.7 % Low 20.5-60.0 [facility] MCH Auto (RBC) [Entitic mass ]on 12-02-2023 MCH (RBC) [Entitic mass] 29.7 pg 26.7-34.0 [facility] MCHC Auto (RBC) [Mass/Vol]on 12-02-2023 MCHC (RBC) [Mass/Vol] 33.0 g/dL 29.9-35.2 [facility] MCV Auto (RBC) [Entitic vol] on 12-02-2023 MCV (RBC) [Entitic vol] 89.9 fL 81.0-99.0 [facility] Monocytes Auto (Bld) [#/Vol] on 12-02-2023 Monocytes (Bld) [#/Vol] 0.5 10 3/uL 0.3-0.8 [facility] Monocytes/100 WBC Auto (Bld) on 12-02-2023 Monocytes/100 WBC (Bld) 6.5 % 1.7-12.0 [facility] Neutrophils Auto (Bld) [#/Vo l]on 12-02-2023 Neutrophils (Bld) [#/Vol] 5.9 10 3/uL 1.4-6.5 [facility] Neutrophils/100 WBC Auto (Bl d)on 12-02-2023 Neutrophils/100 WBC (Bld) 77.5 % High 43.0-75.0 [facility] No Panel Informationon 12-01 Troponin I High Sensitivity 79.2 pg/mL High 4.0-51.3 [facility] Comment on above: RESULTS CALLED TO BIBIANA CHUNG RN @BY Teresa Payne [id number] POINTS HAVE BEEN ESTABLISHED BASED ON THE FOURTHIVERS DEFINITION OF MYOCARDIAL INFARCTION. THE UPPERREFERENCE LIMIT (URL) OF TROPONIN, DEFINED THE 99THPERCENTILE OF cTnI DISTRIBUTION IN A REFERENCE POPULATION,HAS BEEN CONFIRMED THE DECISION THRESHOLD FOR MIDIAGNOSIS.99TH PERCENTILE = 51.4 PG/MLNOTE: HIGH-SENSITIVITY TROPONIN ASSAY IS NOT INTENDED TO BEUSED IN ISOLATION BUT SHOULD BE INTERPRETED IN CONJUNCTIONWITH OTHER DIAGNOSTIC AND CLINICAL INFORMATION. Stool Occult Blood Negative [facility] Eosinophils # (Auto) 0.3 10 3/uL 0.0-0.7 [facility] Immature Granulocyte # (Auto) 0.02 10 3/uL 0.00-0.03 [facility] Platelet mean volume Auto (B ld) [Entitic vol]on 12-02-2023 Platelet mean volume (Bld) [Entitic vol] 12.9 fL 9.5-13.5 [facility] Platelets Auto (Bld) [#/Vol] on 12-02-2023 Platelets (Bld) [#/Vol] 124 10 3/uL Low 150-450 [facility] Prothrombin time (PT)on 11-05 PT Coag (PPP) [Time] 12.0 s High 9.0-11.6 [facility] RBC Auto (Bld) [#/Vol]on RBC (Bld) [#/Vol] 3.27 10 6/uL Low 4.20-5.40 [facility] Serum or plasma albumin/glob ulin mass ratioon 12-02-2023 Albumin/Globulin [Mass ratio] 1.0 {ratio} [facility] Serum or plasma anion gap de terminationon 12-02-2023 Anion gap [Moles/Vol] 14.6 mmol/L [facility] Office Visiton 11-30-2023 Follow-up visit [id number] Trisha Parish 1945 F Date Provider Department Center 11/30/2023 TOÑO SIMPSON HILTON [facility] No family history on file Level of Service:92670 [place] OFFICE/OUTPATIENT ESTABLISHED LOW MDM 20 MIN Reason for Visit and Comments: Follow-up [604943] - 6 months [facility] Left eye Ophthalmologic moira tmenton 08-28-2023 [facility] Radiology Study observation (narrative) [facility] Follow-Upon 05-18-2023 Follow-Up [id number] Trisha Parish 1945 Date Provider Department [place] 05/18/2023 TOÑO SIMPSON HILTON [facility] No family history on file Level of Service:22150 [place] OFFICE/OUTPATIENT ESTABLISHED LOW MDM 20-29 MIN Reason for Visit and Comments: Post-op TAVR [730] [facility] Office Visiton 04-11-2023 Follow-up visit [id number] Trisha Parish 1945 Date Provider Department [place] 04/11/2023 TOÑO SIMPSON HILTON [facility] No family history on file Level of Service:60156 [place] OFFICE/OUTPATIENT ESTABLISHED MOD MDM 30-39 MIN Reason for Visit and Comments: Follow-up [675730] - 1 week F/U [facility] Documentationon 04-05-2023 Documentation [id number] Trisha Parish 1945 F Date Provider Department [place] 04/05/2023 LINA GLORIA [facility] No family history on file Reason for Visit and Comments: Post-op [483] Normal [facility] 30on 04-04-2023 30 Daily Case Managemen [...] Score: PT Recommendations: OT Recommendations: New Consults: [facility] 30 The patient is Moder [...] and maintained or improved Outcome: Progressing Normal [facility] 30 The patient is Moder ately [...] and maintained or improved Outcome: Progressing Normal [facility] B-TYPE NATRIURETIC PEPTIDEon 04-04-2023 Natriuretic peptide B (Bld) [Mass/Vol] 213 pg/mL High 0-100 [facility] Comment on above: Performed By: #### L [id number] #### [facility] [address] [place] [address] BASIC METABOLIC PANELon 3 -2022 Anion gap [Moles/Vol] 11 mmol/L Normal 7-20 [facility] Comment on above: Performed By: #### L [id number] #### [facility] [address] [place] [address] Calcium [Mass/Vol] 8.7 mg/dL Normal 8.6-10.3 [facility] Comment on above: Performed By: #### L [id number] #### [facility] ([facility]) [address] [place] [address] Chloride [Moles/Vol] 109 mmol/L High 98-107 [facility] Comment on above: Performed By: #### L [id number] #### [facility] ([facility]) [address] [place] [address] CO2 [Moles/Vol] 20 mmol/L Low 21-31 [facility] Comment on above: Performed By: #### L [id number] #### [facility] ([facility]) [address] [place] [address] Creatinine [Mass/Vol] 1.58 mg/dL High 0.60-1.20 [facility] Comment on above: Performed By: #### L [id number] #### [facility] ([facility]) [address] [place] [address] GLOMERULAR FILTRATION RATE ML/MIN/1.73 SQ M.PREDICTED 33.3 mL/min/1.73m*2 Low >60.0 [facility] Comment on above: Result Comment: [facility]???s estimated glomerular filtration rate (eGFR) will [...] group of individuals. Performed By: #### L [id number] #### [facility] ([facility]) [address] [place] [address] Glucose [Mass/Vol] 140 mg/dL High 70-100 [facility] Comment on above: Performed By: #### L [id number] #### [facility] ([facility]) [address] [place] [address] Potassium [Moles/Vol] 4.1 mmol/L Normal 3.5-5.1 [facility] Comment on above: Performed By: #### L [id number] #### [facility] ([facility]) [address] [place] [address] Sodium [Moles/Vol] 136 mmol/L Normal 136-145 [facility] Comment on above: Performed By: #### L [id number] #### [facility] ([facility]) [address] [place] [address] Urea nitrogen [Mass/Vol] 33 mg/dL High 7-25 [facility] Comment on above: Performed By: #### L [id number] #### [facility] ([facility]) [address] [place] [address] UREA NITROGEN/CREATININE (MASS RATIO) IN SER/PLAS 20.9 Normal [facility] Comment on above: Performed By: #### L [id number] #### [facility] ([facility]) [address] [place] [address] Anion gap [Moles/Vol] 13 mmol/L Normal 7-20 [facility] Comment on above: Performed By: #### L [id number] #### [facility] ([facility]) [address] [place] [address] Calcium [Mass/Vol] 8.9 mg/dL Normal 8.6-10.3 [facility] Comment on above: Performed By: #### L [id number] #### [facility] ([facility] [address] [place] [address] Chloride [Moles/Vol] 110 mmol/L High 98-107 [facility] Comment on above: Performed By: #### L [id number] #### [facility] [address] [place] [address] CO2 [Moles/Vol] 19 mmol/L Low 21-31 [facility] Comment on above: Performed By: #### L [id number] #### [facility] [address] [place] [address] Creatinine [Mass/Vol] 1.61 mg/dL High 0.60-1.20 [facility] Comment on above: Performed By: #### L [id number] #### [facility] ([facility]) [address] [place] [address] GLOMERULAR FILTRATION RATE ML/MIN/1.73 SQ M.PREDICTED 32.6 mL/min/1.73m*2 Low >60.0 [facility] Comment on above: Result Comment: [facility]???s estimated glomerular filtration rate (eGFR) will [...] individuals. Performed By: #### L [id number] #### [facility] [address] [place] [address] Glucose [Mass/Vol] 95 mg/dL Normal 70-100 [facility] Comment on above: Performed By: #### L [id number] #### [facility] ([facility] [address] [place] [address] Potassium [Moles/Vol] 4.2 mmol/L Normal 3.5-5.1 [facility] Comment on above: Performed By: #### L [id number] #### [facility] [address] [place] [address] Sodium [Moles/Vol] 138 mmol/L Normal 136-145 [facility] Comment on above: Performed By: #### L [id number] #### [facility] ([facility]) [address] [place] [address] Urea nitrogen [Mass/Vol] 34 mg/dL High 7-25 [facility] Comment on above: Performed By: #### L [id number] #### [facility] ([facility]) [address] [place] [address] UREA NITROGEN/CREATININE (MASS RATIO) IN SER/PLAS 21.1 Normal [facility] Comment on above: Performed By: #### L [id number] #### [facility] ([facility]) [address] [place] [address] CBCon 04-04-2023 Erythrocyte distribution width (RBC) [Ratio] 14.6 % Normal 11.5-15.0 [facility] Comment on above: Performed By: #### L [id number] #### [facility] ([facility]) [address] [place] [address] ERYTHROCYTE MEAN CORPUSCULAR HEMOGLOBIN CONCENTRATION (G/DL) BY AUTOMATED 32.8 g/dL Normal 32.0-35.0 [facility] Comment on above: Performed By: #### L [id number] #### [facility] ([facility]) [address] [place] [address] Hematocrit (Bld) [Volume fraction] 30.8 % Low 36.0-48.0 [facility] Comment on above: Performed By: #### L [id number] #### [facility] [address] [place] [address] Hemoglobin (Bld) [Mass/Vol] 10.1 g/dL Low 12.0-15.0 [facility] Comment on above: Performed By: #### L [id number] #### [facility] ([facility]) [address] [place] [address] MCH (RBC) [Entitic mass] 29.3 pg Normal 27.0-33.0 [facility] Comment on above: Performed By: #### L [id number] #### [facility] ([facility]) [address] [place] [address] MCV (RBC) [Entitic vol] 89.3 fL Normal 82.0-98.0 [facility] Comment on above: Performed By: #### L [id number] #### [facility] ([facility]) [address] [place] [address] PLATELETS (10*3/UL) IN BLOOD AUTOMATED COUNT 126 10*3/uL Low 150-400 [facility] Comment on above: Performed By: #### L [id number] #### [facility] ([facility]) [address] [place] [address] RBC (Bld) [#/Vol] 3.45 10*6/uL Low 3.80-5.00 [facility] Comment on above: Performed By: #### L [id number] #### [facility] ([facility]) [address] [place] [address] WBC (Bld) [#/Vol] 5.60 10*3/uL Normal 4.00-10.60 [facility] Comment on above: Performed By: #### L [id number] #### [facility] ([facility]) [address] [place] [address] DSon 04-04-2023 DS ------- Attestation signed by Herve Mayorga MD at [...] spent 25 min on discharge day services Admission Admitted 04/03/2023 for Nonrheumatic aortic valve [...] Medications These medications were sent to [facility] [place], [place] - [address] [place] [address], [facility] [address] acetaminophen 325 mg tablet aspirin 81 mg [...] direct detection a (more content not included)... [facility] NURSNOTEon 04-04-2023 NURSNOTE Pt discharged home w ith by car [facility] 30on 04-03-2023 30 The patient is [...] monitored and maintained or improved Outcome: Progressing [facility] HPon 04-03-2023 HP H&P reviewed. The pa [...] she is brought today for the procedure. [facility] MRSA/MSSA DNA NASALon 2022 MRSA DNA Negative Normal Negative [facility] Comment on above: Order Comment: Testi [...] preclude nasal colonization. Performed By: #### L [id number] ####[facility] ([facility])[address] [place] [address] MSSA DNA Negative Normal Negative [facility] Comment on above: Order Comment: Testi [...] preclude nasal colonization. Performed By: #### L [id number] ####[facility] ([facility])[address] [place] [address] NURSNOTEon 04-03-2023 NURSNOTE Report called to Kameron hay RN. He denies questions/concerns. Normal [facility] TYPE AND SCREENon 04-03-2023 AB SCREEN Negative Normal [facility] Comment on above: Performed By: #### L [id number] #### [facility] ([facility]) [address] [place] [address] ABO group Nom (Bld) B Normal [facility] Comment on above: Performed By: #### L [id number] #### [facility] ([facility]) [address] [place] [address] RH TYPE IN BLOOD Positive Normal [facility] Comment on above: Performed By: #### L [id number] #### [facility] ([facility]) [address] [place] [address] Orders Onlyon 03-22-2023 Orders Only [id number] Trisha Parish 1945 F Date Provider Department Center 03/22/2023 [facility] [place] [facility] No family history on file Normal [facility] HPon 2023 [facility] Cardiology - [facility] Subjective Trisha Parish is a 78 [...] In September 2022 she was admitted to [facility] with weakness. She was found to [...] Rfl: carvedilol (Co (more content not included)... [facility] Office Visiton 2023 Follow-up visit [id number] Trisha Parish 1945 F Date Provider Department Center 2023 [facility] No family history on file Level of Service:[address] [place] OFFICE/OUTPATIENT ESTABLISHED HIGH MDM 40-54 MIN [facility] ANESon 02-23-2023 ANES ------- Attestation signed by Matilda Valentin MD at [...] be an additional personal documentation from me. Patient: Trisha Parish Procedure Information Date/Time: 02/23/23 1030 Procedure: TRANSESOPHAGEAL ECHO (ELENA) Location: [facility] V[facility] Vascular Lab [...] consented to blood products. Additional Equipment Requests [facility] HPon 02-23-2023 ------- Attestation signed by Matilda Valentin MD at [...] be an additional personal documentation from me. H&P reviewed. The patient was examined and there are no changes to the H&P. [facility] NURSNOTEon 02-23-2023 NURSNOTE Pt performed and pas sed bedside swallow study test. RN educated pt on d/c instructions. RN encouraged pt to voice any questions or concerns. Pt verbalizes no questions or concerns at this time. Pt was wheeled off of unit with all of belongings. 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 Social History Tobacco Use Smoking status: Never Smokeless tobacco: Never Substance Use Topics Alcohol use: Never Drug use: Never Update: 02/21/2023 She was hospitalized at [facility] for 3 days after presenting with dizziness [...] other elevated She was hospitalized 02/04-02/07/23 at [facility] and underwent coronary angiography and right [...] mouth in the morning., Disp: , Rfl: Decision Lens Stehpy 2 Sensor kit, , Disp: , Rfl: [...] Disp: 30 tablet, Rfl: 0 sennosides-docusate sodium (Latisha-Colace) 8.6-50 mg tablet, Take 1 tablet by [...] 6.44 02/06 (more content not included)... Normal [facility] Office Visiton 02-21-2023 Follow-up visit [id number] Trisha Parish E 1945 F Date Provider Department Center 02/21/2023 [id number]-OEPBFHEQGTAYLOR PIÑA [place] [facility] No family history on file Level of Service:55149 [place] OFFICE/OUTPATIENT ESTABLISHED MOD MDM 30-39 MIN Reason for Visit and Comments: Follow-up [895551] - Pt discharge from hospital 02/20/23 for high potassium , dizziness [facility] Basic Metabolic Panelon 02-03 Anion gap [Moles/Vol] 10.7 mmol/L Normal 6.0-15.0 [facility] Comment on above: Performed By: #### B MP #### [facility] [address] Calcium [Mass/Vol] 8.4 mg/dL Low 8.6-10.3 [facility] Comment on above: Performed By: #### B MP #### [facility] [address] Chloride [Moles/Vol] 109 mmol/L High 98-107 [facility] Comment on above: Performed By: #### B MP #### [facility] [address] [place] [id number] [place] CO2 [Moles/Vol] 22.7 mmol/L Normal 21.0-31.0 [facility] Comment on above: Performed By: #### B MP #### [facility] [address] [place] [id number] [place] Creatinine [Mass/Vol] 1.68 mg/dL High 0.60-1.20 [facility] Comment on above: Performed By: #### B MP #### [place] [address] [place] Creatinine Clr Calc Pharmacy 24.22 Normal [facility] Comment on above: Result Comment: PERF ORMED BY: [place] [address] PATHOLOGIST HABILITATION WORKER MELISSA QUINN M.D. Performed By: #### B MP #### [place] [address] [place] GFR/1.73 sq M.predicted MDRD (S/P/Bld) [Vol rate/Area] 31.134 mL/min/{1.73_m2} Normal [facility] Comment on above: Performed By: #### B MP #### [address] Glucose [Mass/Vol] 94 mg/dL Normal 70-100 [facility] Comment on above: Result Comment: [place] Glucose Reference Range is dependent on time and content of last meal. Glucose of more than 200 mg/dL in a nonstressed, ambulatory subject supports the diagnosis of Diabetes Mellitus. ADA recommended reference range Performed By: #### B MP #### [place] [address] [place] Potassium [Moles/Vol] 4.4 mmol/L Normal 3.5-5.1 [facility] Comment on above: Performed By: #### B MP #### [place] [address] [place] Sodium [Moles/Vol] 138 mmol/L Normal 136-145 [facility] Comment on above: Performed By: #### B MP #### [place] [address] [place] Urea nitrogen [Mass/Vol] 34 mg/dL High 7-25 [facility] Comment on above: Performed By: #### B MP #### [place] [address] [place] Glucose Poct Glucometerson 0 7-18-2023 Glucose [Mass/Vol] 92 mg/dL Normal [facility] Comment on above: Result Comment: [facility] Glucose Reference Range is dependent on time and content of last meal. Glucose of more than 200 mg/dL in a nonstressed, ambulatory subject supports the diagnosis of Diabetes Mellitus. PERFORMED BY: [place] [address] [place] [address] PATHOLOGIST HABILITATION WORKER MELISSA QUINN M.D. Performed By: #### G LULS #### Point of Care testing , Basic Metabolic Panelon 02-03 Anion gap [Moles/Vol] 9.8 mmol/L Normal 6.0-15.0 [facility] Comment on above: Performed By: #### G LULS #### Point of Care testing , Calcium [Mass/Vol] 8.4 mg/dL Low 8.6-10.3 [facility] Comment on above: Performed By: #### G LULS #### Point of Care testing , Chloride [Moles/Vol] 108 mmol/L High 98-107 [facility] Comment on above: Performed By: #### G LULS #### Point of Care testing , CO2 [Moles/Vol] 25.3 mmol/L Normal 21.0-31.0 [facility] Comment on above: Performed By: #### G LULS #### Point of Care testing , Creatinine [Mass/Vol] 1.62 mg/dL High 0.60-1.20 [facility] Comment on above: Performed By: #### G LULS #### Point of Care testing , Creatinine Clr Calc Pharmacy 25.11 Normal [facility] Comment on above: Result Comment: PERF ORMED BY: [facility] [address] [place] [address] PATHOLOGIST HABILITATION WORKER MELISSA QUINN M.D. Performed By: #### G LULS #### Point of Care testing , GFR/1.73 sq M.predicted MDRD (S/P/Bld) [Vol rate/Area] 32.523 mL/min/{1.73_m2} Normal [facility] Comment on above: Performed By: #### G LULS #### Point of Care testing , Glucose [Mass/Vol] 91 mg/dL Normal 70-100 [facility] Comment on above: Result Comment: [facility] Glucose Reference Range is dependent on time and content of last meal. Glucose of more than 200 mg/dL in a nonstressed, ambulatory subject supports the diagnosis of Diabetes Mellitus. ADA recommended reference range Performed By: #### G LULS #### Point of Care testing , Potassium [Moles/Vol] 4.1 mmol/L Normal 3.5-5.1 [facility] Comment on above: Performed By: #### G LULS #### Point of Care testing , Sodium [Moles/Vol] 139 mmol/L Normal 136-145 [facility] Comment on above: Performed By: #### G LULS #### Point of Care testing , Urea nitrogen [Mass/Vol] 34 mg/dL High 7-25 [facility] Comment on above: Performed By: #### G LULS #### Point of Care testing , Glucose Poct Glucometerson 0 02-19-2023 Glucose [Mass/Vol] 143 mg/dL Normal [facility] Comment on above: Result Comment: [facility] Glucose Reference Range is dependent on time and content of last meal. Glucose of more than 200 mg/dL in a nonstressed, ambulatory subject supports the diagnosis of Diabetes Mellitus. PERFORMED BY: [address] [address] PATHOLOGIST HABILITATION WORKER MELISSA QUINN M.D. Performed By: #### G LULS #### Point of Care testing , Glucose [Mass/Vol] 101 mg/dL Normal [facility] Comment on above: Result Comment: [facility] Glucose Reference Range is dependent on time and content of last meal. Glucose of more than 200 mg/dL in a nonstressed, ambulatory subject supports the diagnosis of Diabetes Mellitus. PERFORMED BY: [facility] [address] [facility] [place] [address] PATHOLOGIST HABILITATION WORKER MELISSA QUINN M.D. Performed By: #### G LULS #### Point of Care testing , US renal BIon 02-19-2023 US renal BI [facility] Main [place] [address] [place] [address] Ultrasound Report Signed Patient: Trisha Parish MR#: [id number] : 1945 Acct:[id number] Age/Sex: 77 / F ADM Date: 02/17/23 Loc: Room: [address] [place] [address] Type: ADM IN Attending Dr: Mikel Mir MD Ordering Provider: Mikel Mir MD Date of Service: 02/19/23 US/US renal BI: JASMIN r/o [place] or obstruction Copies to: Mikel Mir MD [...] Quintanilla Jr., D.O.02/19/2023 3:58 PM Dictation Location: [place] [address] Tech: Jenna Corado Transcribed By: LETITIA 02/19/23 1558 Dictated By: Baldo Quintanilla Jr, DO 02/19/23 1557 Signed By: 02/19/23 1558 Normal [facility] Coagulation Profileon 2022 aPTT Coag (Bld) [Time] 31.5 s Normal 25.1-36.5 [facility] Comment on above: Result Comment: PERF ORMED BY: [place] [address] PATHOLOGIST HABILITATION WORKER MELISSA QUINN M.D. Performed By: #### C MP, MG, PP, CBCNO #### [address] INR Coag (PPP) [Relative time] 1.3 {INR} Normal [facility] Comment on above: Result Comment: INR Therapeutic [...] #### C MP, MG, PP, CBCNO #### [address] PT Coag (PPP) [Time] 15.2 s High 9.0-12.9 [facility] Comment on above: Performed By: #### C MP, MG, PP, CBCNO #### [address] Comprehensive Metabolic Pane shima 02-18-2023 Albumin [Mass/Vol] 3.5 g/dL Normal 3.5-5.7 [facility] Comment on above: Performed By: #### C MP, MG, PP, CBCNO #### [address] Albumin/Globulin [Mass ratio] 1.3 {ratio} Normal [facility] Comment on above: Performed By: #### C MP, MG, PP, CBCNO #### [address] ALP [Catalytic activity/Vol] 83 U/L Normal 34-104 [facility] Comment on above: Performed By: #### C MP, MG, PP, CBCNO #### [address] ALT [Catalytic activity/Vol] 13 U/L Normal 7-52 [facility] Comment on above: Performed By: #### C MP, MG, PP, CBCNO #### [address] Anion gap [Moles/Vol] 11.0 mmol/L Normal 6.0-15.0 [facility] Comment on above: Performed By: #### C MP, MG, PP, CBCNO #### [place] [id number] [place] AST [Catalytic activity/Vol] 16 U/L Normal 13-39 [facility] Comment on above: Performed By: #### C MP, MG, PP, CBCNO #### [address] Bilirubin [Mass/Vol] 0.7 mg/dL Normal 0.3-1.0 [facility] Comment on above: Performed By: #### C MP, MG, PP, CBCNO #### [address] Calcium [Mass/Vol] 8.4 mg/dL Low 8.6-10.3 [facility] Comment on above: Performed By: #### C MP, MG, PP, CBCNO #### [address] Chloride [Moles/Vol] 108 mmol/L High 98-107 [facility] Comment on above: Performed By: #### C MP, MG, PP, CBCNO #### [address] CO2 [Moles/Vol] 24.4 mmol/L Normal 21.0-31.0 [facility] Comment on above: Performed By: #### C MP, MG, PP, CBCNO #### [address] Creatinine [Mass/Vol] 1.91 mg/dL High 0.60-1.20 [facility] Comment on above: Performed By: #### C MP, MG, PP, CBCNO #### [address] Creatinine Clr Calc Pharmacy 21.30 Normal [facility] Comment on above: Performed By: #### C MP, MG, PP, CBCNO #### [address] GFR/1.73 sq M.predicted MDRD (S/P/Bld) [Vol rate/Area] 26.691 mL/min/{1.73_m2} Normal [facility] Comment on above: Performed By: #### C MP, MG, PP, CBCNO #### [address] Globulin (S) [Mass/Vol] 2.7 g/dL Normal [facility] Comment on above: Performed By: #### C MP, MG, PP, CBCNO #### [address] Glucose [Mass/Vol] 92 mg/dL Normal 70-100 [facility] Comment on above: Result Comment: [facility] Glucose Reference Range is dependent on time and content of last meal. Glucose of more than 200 mg/dL in a nonstressed, ambulatory subject supports the diagnosis of Diabetes Mellitus. ADA recommended reference range Performed By: #### C MP, MG, PP, CBCNO #### [address] Potassium [Moles/Vol] 4.4 mmol/L Normal 3.5-5.1 [facility] Comment on above: Performed By: #### C MP, MG, PP, CBCNO #### [address] Protein [Mass/Vol] 6.2 g/dL Low 6.4-8.9 [facility] Comment on above: Performed By: #### C MP, MG, PP, CBCNO #### [address] Sodium [Moles/Vol] 139 mmol/L Normal 136-145 [facility] Comment on above: Performed By: #### C MP, MG, PP, CBCNO #### [address] Urea nitrogen [Mass/Vol] 35 mg/dL High 7-25 [facility] Comment on above: Performed By: #### C MP, MG, PP, CBCNO #### [place] [address] [place] Dipstick and Microscopicon 0 02-18-2023 Appearance (U) Clear Normal Clear [facility] Comment on above: Order Comment: Name Collection Type:: Clean-Voided Midstream Performed By: #### A DDONUAPLUS, CUU #### [place] [address] [place] Bacteria,Urine None Seen Normal None Seen [facility] Comment on above: Order Comment: Name Collection Type:: Clean-Voided Midstream Performed By: #### A DDONUAPLUS, CUU #### [place] [address] [place] Bilirubin,Urine Negative Normal Negative [facility] Comment on above: Order Comment: Name Collection Type:: Clean-Voided Midstream Performed By: #### A DDONUAPLUS, CUU #### [address] Color (U) Yellow Normal Yellow [facility] Comment on above: Order Comment: Name Collection Type:: Clean-Voided Midstream Performed By: #### A DDONUAPLUS, CUU #### [place] [address] [place] Glucose Ql (U) Normal Normal Normal [facility] Comment on above: Order Comment: Name Collection Type:: Clean-Voided Midstream Performed By: #### A DDONUAPLUS, CUU #### [place] [address] [place] Hyaline Casts,Urine None Seen Normal 0-8 [facility] Comment on above: Order Comment: Name Collection Type:: Clean-Voided Midstream Result Comment: PERF ORMED BY: [place] [address] PATHOLOGIST HABILITATION WORKER MELISSA QUINN M.D. Performed By: #### A DDONUAPLUS, CUU #### [place] [address] [place] Ketones Ql (U) Negative Normal Negative [facility] Comment on above: Order Comment: Name Collection Type:: Clean-Voided Midstream Performed By: #### A DDONUAPLUS, CUU #### [place] [address] [place] Leukocyte esterase Test strip Ql (U) 3+ High Negative [facility] Comment on above: Order Comment: Name Collection Type:: Clean-Voided Midstream Performed By: #### A DDONUAPLUS, CUU #### [place] [address] [place] Nitrite,Urine Negative Normal Negative [facility] Comment on above: Order Comment: Name Collection Type:: Clean-Voided Midstream Performed By: #### A DDONUAPLUS, CUU #### [address] Occult Blood,Urine Negative Normal Negative [facility] Comment on above: Order Comment: Name Collection Type:: Clean-Voided Midstream Result Comment: PERF ORMED BY: [place] [address] PATHOLOGIST HABILITATION WORKER MELISSA QUINN M.D. Performed By: #### A DDONUAPLUS, CUU #### [address] pH (U) 7.5 [pH] Normal 5.0-9.0 [facility] Comment on above: Order Comment: Name Collection Type:: Clean-Voided Midstream Performed By: #### A DDONUAPLUS, CUU #### [place] [address] [place] Protein,Urine Negative Normal Negative [facility] Comment on above: Order Comment: Name Collection Type:: Clean-Voided Midstream Performed By: #### A DDONUAPLUS, CUU #### [place] [address] [place] RBC LM.HPF (Urine sed) [#/Area] 0 /[HPF] Normal 0-4 [facility] Comment on above: Order Comment: Name Collection Type:: Clean-Voided Midstream Performed By: #### A DDONUAPLUS, CUU #### [address] Specificy [place],Urine 1.006 Normal 1.001-1.030 [facility] Comment on above: Order Comment: Name Collection Type:: Clean-Voided Midstream Performed By: #### A DDONUAPLUS, CUU #### [facility] [address] Squamous Epithelial Cell,Urine None Seen Normal 0-2 [facility] Comment on above: Order Comment: Name Collection Type:: Clean-Voided Midstream Performed By: #### A DDONUAPLUS, CUU #### [address] Urobilinogen,Urine Normal Normal Normal [facility] Comment on above: Order Comment: Name Collection Type:: Clean-Voided Midstream Performed By: #### A DDONUAPLUS, CUU #### [address] WBC,Urine 5-9 High 0-4 [facility] Comment on above: Order Comment: Name Collection Type:: Clean-Voided Midstream Performed By: #### A DDONUAPLUS, CUU #### [address] ECG 12 lead ECGon 02-18-2023 ECG 12 lead ECG [facility] [place] [address] Electrocardiograph Report Signed Patient: Trisha Parish MR#: [id number] : 1945 Acct:[id number] Age/Sex: 77 / F ADM Date: 02/17/23 Loc: Room: [address] [place] [address] Type: ADM IN Attending Dr: Kevin Mejia [...] ECG No previous ECGs available Confirmed by TRINIDAD TRAVIS, NESSA ([facility]) on 02/18/2023 10:47:09 AM Referred By: Electronically Signed By:NESSA ABDI MD Transcribed By: MUS Signed By Nessa Abdi MD 0 02/18/23 1047 Normal [facility] Glucose Poct Glucometerson 0 02-18-2023 Glucose [Mass/Vol] 94 mg/dL Normal [facility] Comment on above: Result Comment: [place] Glucose Reference Range is dependent on time and content of last meal. Glucose of more than 200 mg/dL in a nonstressed, ambulatory subject supports the diagnosis of Diabetes Mellitus. PERFORMED BY: [place] [address] PATHOLOGIST HABILITATION WORKER MELISSA QUINN M.D. Performed By: #### G LUMEHUL #### Point of Care testing , Glucose [Mass/Vol] 194 mg/dL Normal [facility] Comment on above: Result Comment: [facility] Glucose Reference Range is dependent on time and content of last meal. Glucose of more than 200 mg/dL in a nonstressed, ambulatory subject supports the diagnosis of Diabetes Mellitus. PERFORMED BY: [place] [id number] PATHOLOGIST HABILITATION WORKER MELISSA QUINN M.D. Performed By: #### G LUMEHUL #### Point of Care testing , Hemogram CBC Without Diffon 02-18-2023 Erythrocyte distribution width (RBC) [Ratio] 14.4 % Normal 11.9-15.3 [facility] Comment on above: Performed By: #### C MP, MG, PP, CBCNO #### [address] Hematocrit (Bld) [Volume fraction] 32.7 % Low 34.0-46.4 [facility] Comment on above: Performed By: #### C MP, MG, PP, CBCNO #### [address] Hemoglobin (Bld) [Mass/Vol] 10.8 g/dL Low 11.8-15.4 [facility] Comment on above: Performed By: #### C MP, MG, PP, CBCNO #### [address] MCH (RBC) [Entitic mass] 28.8 pg Normal 24.7-34.3 [facility] Comment on above: Performed By: #### C MP, MG, PP, CBCNO #### [address] MCV (RBC) [Entitic vol] 87.0 fL Normal 80-100 [facility] Comment on above: Performed By: #### C MP, MG, PP, CBCNO #### [address] Mean Corpuscular HGB Conc 33.1 g/dL Normal 32.0-35.0 [facility] Comment on above: Performed By: #### C MP, MG, PP, CBCNO #### [address] Platelet mean volume (Bld) [Entitic vol] 10.2 fL Normal 6.3-10.7 [facility] Comment on above: Result Comment: PERF ORMED BY: [place] [address] PATHOLOGIST HABILITATION WORKER MELISSA QUINN M.D. Performed By: #### C MP, MG, PP, CBCNO #### [address] Platelets (Bld) [#/Vol] 185 10*3/uL Normal 150-450 [facility] Comment on above: Performed By: #### C MP, MG, PP, CBCNO #### [address] RBC (Bld) [#/Vol] 3.76 10*6/uL Normal 3.60-5.00 [facility] Comment on above: Performed By: #### C MP, MG, PP, CBCNO #### [address] WBC (Bld) [#/Vol] 7.2 10*3/uL Normal 3.8-11.6 [facility] Comment on above: Performed By: #### C MP, MG, PP, CBCNO #### [place] [id number] [facility] Magnesiumon 02-18-2023 Magnesium [Mass/Vol] 1.9 mg/dL Normal 1.9-2.7 [facility] Comment on above: Result Comment: PERF ORMED BY: [place] [address] PATHOLOGIST HABILITATION WORKER MELISSA QUINN M.D. Performed By: #### C MP, MG, PP, CBCNO #### [facility] [address] [place] [address] Troponin I High Sensitivityo n 02-18-2023 Troponin I High Sensitivity 55.0 pg/mL Off scale high 0.0-15.0 [facility] Comment on above: Result Comment: Crit ical Result : Called to and read back by: ROYAL DAILY at: 02/18/2023 07:39:39 by:[id number] PERFORMED BY: [place] [address] PATHOLOGIST HABILITATION WORKER MELISSA QUINN M.D. Performed By: #### H S TROP #### [address] Urine Cultureon 02-18-2023 Bacteria identified Cx Nom (U) >100,000 colonies/ml mixed bacterial skin contaminants 2 Days PERFORMED BY: [place] [phone] PATHOLOGIST HABILITATION WORKER MELISSA QUINN M.D. Normal [facility] Comment on above: Performed By: #### G LULS #### Point of Care testing , Telephoneon 02-16-2023 Telephone [phone] Trisha Parish 1945 F Date Provider Department Center 02/16/2023 WILY [facility] No family history on file Normal [facility] Orders Onlyon 02-09-2023 Orders Only [id number] JemTrisha De La Torre 1945 F Date Provider Department Center 02/09/2023 MARGARET COLL[facility] C[facility] [place] [facility] No family history on file Normal [facility] 30on 02-07-2023 30 The patient is Moder ately Stable - Low risk of patient condition declining or worsening The patient's goals for the shift include comfort The clinical goals for the shift include VSS Over the shift, the patient did not make progress toward the following goals. Barriers to progression include . Recommendations to address these barriers include . Normal [facility] 30 The patient is Moder ately Stable - Low risk of patient condition declining or worsening The patient's goals for the shift include comfort, rest The clinical goals for the shift include stable Over the shift, the patient did not make progress toward the following goals. Barriers to progression include . Recommendations to address these barriers include . Normal [facility] BASIC METABOLIC PANELon 07 Anion gap [Moles/Vol] 10 mmol/L Normal - [facility] Comment on above: Performed By: #### L [id number] #### [facility] ([facility]) [address] [place] [address] Calcium [Mass/Vol] 8.6 mg/dL Normal 8.6-10.3 [facility] Comment on above: Performed By: #### L [id number] #### [facility] ([facility]) [address] [place] [address] Chloride [Moles/Vol] 109 mmol/L High 98-107 [facility] Comment on above: Performed By: #### L [id number] #### [facility] ([facility]) [address] [place] [address] CO2 [Moles/Vol] 25 mmol/L Normal 21-31 [facility] Comment on above: Performed By: #### L [id number] #### [facility] ([facility]) [address] [place] [address] Creatinine [Mass/Vol] 1.40 mg/dL High 0.60-1.20 [facility] Comment on above: Performed By: #### L [id number] #### [facility] ([facility]) [address] [facility] [place] [address] GLOMERULAR FILTRATION RATE ML/MIN/1.73 SQ M.PREDICTED 38.7 mL/min/1.73m*2 Low >60.0 [facility] Comment on above: Result Comment: [facility]???s estimated glomerular filtration rate (eGFR) will [...] individuals. Performed By: #### L [id number] #### [facility] ([facility]) [address] [place] [address] Glucose [Mass/Vol] 115 mg/dL High 70-100 [facility] Comment on above: Performed By: #### L [id number] #### [facility] ([facility]) [address] [place] [address] Potassium [Moles/Vol] 3.9 mmol/L Normal 3.5-5.1 [facility] Comment on above: Performed By: #### L [id number] #### [facility] ([facility]) [address] [place] [address] Sodium [Moles/Vol] 140 mmol/L Normal 136-145 [facility] Comment on above: Performed By: #### L [id number] #### [facility] ([facility]) [address] [place] [address] Urea nitrogen [Mass/Vol] 32 mg/dL High 7-25 [facility] Comment on above: Performed By: #### L [id number] #### [facility] ([facility]) [address] [place] [address] UREA NITROGEN/CREATININE (MASS RATIO) IN SER/PLAS 22.9 Normal [facility] Comment on above: Performed By: #### L [id number] #### [facility] [address] [place] [address] MAGNESIUMon 02-07-2023 Magnesium [Mass/Vol] 2.0 mg/dL Normal 1.9-2.7 [facility] Comment on above: Performed By: #### L [id number] #### [facility] [address] [place] [address] BASIC METABOLIC PANELon Anion gap [Moles/Vol] 10 mmol/L Normal 7-20 [facility] Comment on above: Performed By: #### L [id number] #### [facility] ([facility]) [address] [place] [address] Calcium [Mass/Vol] 8.6 mg/dL Normal 8.6-10.3 [facility] Comment on above: Performed By: #### L [id number] #### [facility] ([facility]) [address] [place] [address] Chloride [Moles/Vol] 109 mmol/L High 98-107 [facility] Comment on above: Performed By: #### L [id number] #### [facility] ([facility]) [address] [place] [address] CO2 [Moles/Vol] 25 mmol/L Normal 21-31 [facility] Comment on above: Performed By: #### L [id number] #### [facility] ([facility]) [address] [place] [address] Creatinine [Mass/Vol] 1.32 mg/dL High 0.60-1.20 [facility] Comment on above: Performed By: #### L [id number] #### [facility] ([facility]) [address] [place] [address] GLOMERULAR FILTRATION RATE ML/MIN/1.73 SQ M.PREDICTED 41.6 mL/min/1.73m*2 Low >60.0 [facility] Comment on above: Result Comment: [facility]???s estimated glomerular filtration rate (eGFR) will [...] group of individuals. Performed By: #### L [id number] #### [facility] ([facility]) [address] [place] [address] Glucose [Mass/Vol] 142 mg/dL High 70-100 [facility] Comment on above: Performed By: #### L [id number] #### [facility] ([facility]) [address] [place] [address] Potassium [Moles/Vol] 3.8 mmol/L Normal 3.5-5.1 [facility] Comment on above: Performed By: #### L [id number] #### [facility] ([facility]) [address] [place] [address] Sodium [Moles/Vol] 140 mmol/L Normal 136-145 [facility] Comment on above: Performed By: #### L [id number] #### [facility] ([facility]) [address] [place] [address] Urea nitrogen [Mass/Vol] 31 mg/dL High 7-25 [facility] Comment on above: Performed By: #### L [id number] #### [facility] ([facility]) [address] [place] [address] UREA NITROGEN/CREATININE (MASS RATIO) IN SER/PLAS 23.5 Normal [facility] Comment on above: Performed By: #### L [id number] #### [facility] ([facility]) [address] [place] [address] CBCon 02-06-2023 Erythrocyte distribution width (RBC) [Ratio] 14.1 % Normal 11.5-15.0 [facility] Comment on above: Performed By: #### L [id number] #### [facility] ([facility]) [address] [place] [address] ERYTHROCYTE MEAN CORPUSCULAR HEMOGLOBIN CONCENTRATION (G/DL) BY AUTOMATED 33.6 g/dL Normal 32.0-35.0 [facility] Comment on above: Performed By: #### L [id number] #### [facility] [address] [place] [address] Hematocrit (Bld) [Volume fraction] 33.3 % Low 36.0-48.0 [facility] Comment on above: Performed By: #### L [id number] #### [facility] ([facility]) [address] [place] [address] Hemoglobin (Bld) [Mass/Vol] 11.2 g/dL Low 12.0-15.0 [facility] Comment on above: Performed By: #### L [id number] #### [facility] [address] [place] [address] MCH (RBC) [Entitic mass] 29.3 pg Normal 27.0-33.0 [facility] Comment on above: Performed By: #### L [id number] #### [facility] [address] [place] [address] MCV (RBC) [Entitic vol] 87.2 fL Normal 82.0-98.0 [facility] Comment on above: Performed By: #### L [id number] #### [facility] [address] [place] [address] PLATELETS (10*3/UL) IN BLOOD AUTOMATED COUNT 152 10*3/uL Normal 150-400 [facility] Comment on above: Performed By: #### L [id number] #### [facility] [address] [place] [address] RBC (Bld) [#/Vol] 3.82 10*6/uL Normal 3.80-5.00 [facility] Comment on above: Performed By: #### L [id number] #### [facility] ([facility]) [address] [place] [address] WBC (Bld) [#/Vol] 6.44 10*3/uL Normal 4.00-10.60 [facility] Comment on above: Performed By: #### L [id number] #### [facility] ([facility]) [address] [facility] [facility] [place] [address] CONSULTon 02-06-2023 CONSULT Inpatient consult to Cardiothoracic [...] per patient for which she saw her feather shaper Dr. Soto- medications were adjusted and pacemaker [...] not crush, chew, or split. sennosides-docusate sodium (Latisha-Colace) 8.6-50 mg tablet Take 1 tablet by [...] is not (more content not included)... Normal [facility] MAGNESIUMon 02-06-2023 Magnesium [Mass/Vol] 1.7 mg/dL Low 1.9-2.7 [facility] Comment on above: Performed By: #### L [id number] #### [facility] ([facility]) [address] [place] [address] 30on 02-05-2023 30 The patient is Moder [...] and maintained or improved Outcome: Progressing Normal [facility] 30 Daily Case Managemen t Update [...] PT Recommendations: OT Recommendations: New Consults: Normal [facility] 30 Problem: Pain - Adul t [...] Flowsheets (Taken 02/05/2023745) Free from fall injury: [place] fall precautions as indicated by assessment Educate [...] clinical goals for the shift include vss [facility] 30 The patient is Moder ately Stable - Low risk of patient condition declining or worsening The patient's goals for the shift include comfort The clinical goals for the shift include vss [facility] BASIC METABOLIC PANELon 07-0 Anion gap [Moles/Vol] 12 mmol/L Normal 7-20 [facility] Comment on above: Performed By: #### L [id number] #### [facility] ([facility]) [address] [place] [address] Calcium [Mass/Vol] 8.8 mg/dL Normal 8.6-10.3 [facility] Comment on above: Performed By: #### L [id number] #### [facility] ([facility]) [address] [place] [address] Chloride [Moles/Vol] 107 mmol/L Normal 98-107 [facility] Comment on above: Performed By: #### L [id number] #### [facility] ([facility]) [address] [place] [address] CO2 [Moles/Vol] 25 mmol/L Normal 21-31 [facility] Comment on above: Performed By: #### L [id number] #### [facility] ([facility]) [address] [place] [address] Creatinine [Mass/Vol] 1.18 mg/dL Normal 0.60-1.20 [facility] Comment on above: Performed By: #### L [id number] #### [facility] ([facility]) [address] [place] [address] GLOMERULAR FILTRATION RATE ML/MIN/1.73 SQ M.PREDICTED 47.6 mL/min/1.73m*2 Low >60.0 [facility] Comment on above: Result Comment: [facility]???s estimated glomerular filtration rate (eGFR) will [...] group of individuals. Performed By: #### L [id number] #### [facility] [address] [place] [address] Glucose [Mass/Vol] 99 mg/dL Normal 70-100 [facility] Comment on above: Performed By: #### L [id number] #### [facility] ([facility]) [address] [place] [address] Potassium [Moles/Vol] 3.8 mmol/L Normal 3.5-5.1 [facility] Comment on above: Performed By: #### L [id number] #### [facility] ([facility]) [address] [place] [address] Sodium [Moles/Vol] 140 mmol/L Normal 136-145 [facility] Comment on above: Performed By: #### L [id number] #### [facility] ([facility]) [address] [place] [address] Urea nitrogen [Mass/Vol] 28 mg/dL High 7-25 [facility] Comment on above: Performed By: #### L [id number] #### [facility] ([facility]) [address] [place] [address] UREA NITROGEN/CREATININE (MASS RATIO) IN SER/PLAS 23.7 Normal [facility] Comment on above: Performed By: #### L [id number] #### [facility] [address] [place] [address] Anion gap [Moles/Vol] 12 mmol/L Normal 7-20 [facility] Comment on above: Performed By: #### L [id number] #### [facility] ([facility]) [address] [place] [address] Calcium [Mass/Vol] 9.0 mg/dL Normal 8.6-10.3 [facility] Comment on above: Performed By: #### L [id number] #### [facility] [address] [place] [address] Chloride [Moles/Vol] 107 mmol/L Normal 98-107 [facility] Comment on above: Performed By: #### L [id number] #### [facility] ([facility]) [address] [place] [address] CO2 [Moles/Vol] 23 mmol/L Normal 21-31 [facility] Comment on above: Performed By: #### L [id number] #### [facility] ([facility]) [address] [place] [address] Creatinine [Mass/Vol] 1.12 mg/dL Normal 0.60-1.20 [facility] Comment on above: Performed By: #### L [id number] #### [facility] ([facility]) [address] [address] GLOMERULAR FILTRATION RATE ML/MIN/1.73 SQ M.PREDICTED 50.6 mL/min/1.73m*2 Low >60.0 [facility] Comment on above: Result Comment: [facility]???s estimated glomerular filtration rate (eGFR) will [...] individuals. Performed By: #### L [id number] #### [facility] ([facility]) [address] [place] [address] Glucose [Mass/Vol] 121 mg/dL High 70-100 [facility] Comment on above: Performed By: #### L [id number] #### [facility] ([facility]) [address] [place] [address] Potassium [Moles/Vol] 3.8 mmol/L Normal 3.5-5.1 [facility] Comment on above: Performed By: #### L [id number] #### [facility] ([facility]) [address] [place] [address] Sodium [Moles/Vol] 138 mmol/L Normal 136-145 [facility] Comment on above: Performed By: #### L [id number] #### [facility] ([facility]) [address] [place] [address] Urea nitrogen [Mass/Vol] 28 mg/dL High 7-25 [facility] Comment on above: Performed By: #### L [id number] #### [facility] ([facility]) [address] [place] [address] UREA NITROGEN/CREATININE (MASS RATIO) IN SER/PLAS 25.0 Normal [facility] Comment on above: Performed By: #### L [id number] #### [facility] ([facility]) [address] [place] [address] CBC WITH AUTO DIFFERENTIALon 02-05-2023 Basophils (Bld) [#/Vol] 0.03 10*3/uL Normal 0.00-0.20 [facility] Comment on above: Performed By: #### L [id number] #### [facility] ([facility]) [address] [place] [address] Basophils/100 WBC (Bld) 0.4 % Normal 0.0-1.0 [facility] Comment on above: Performed By: #### L [id number] #### [facility] ([facility]) [address] [place] [address] Eosinophils (Bld) [#/Vol] 0.65 10*3/uL High 0.00-0.50 [facility] Comment on above: Performed By: #### L [id number] #### [facility] ([facility]) [address] [address] Eosinophils/100 WBC (Bld) 8.6 % High 0.0-6.0 [facility] Comment on above: Performed By: #### L [id number] #### [facility] ([facility]) [address] [place] [address] Erythrocyte distribution width (RBC) [Ratio] 14.1 % Normal 11.5-15.0 [facility] Comment on above: Performed By: #### L [id number] #### [facility] [address] [place] [address] ERYTHROCYTE MEAN CORPUSCULAR HEMOGLOBIN CONCENTRATION (G/DL) BY AUTOMATED 33.1 g/dL Normal 32.0-35.0 [facility] Comment on above: Performed By: #### L [id number] #### [facility] ([facility]) [address] [place] [address] Hematocrit (Bld) [Volume fraction] 37.5 % Normal 36.0-48.0 [facility] Comment on above: Performed By: #### L [id number] #### [facility] [address] [place] [address] Hemoglobin (Bld) [Mass/Vol] 12.4 g/dL Normal 12.0-15.0 [facility] Comment on above: Performed By: #### L [id number] #### [facility] ([facility]) [address] [place] [address] Immature granulocytes (Bld) [#/Vol] 0.02 10*3/uL Normal 0.00-0.20 [facility] Comment on above: Performed By: #### L [id number] #### [facility] ([facility]) [address] [place] [address] Immature granulocytes/100 WBC (Bld) 0.3 % Normal 0.0-1.0 [facility] Comment on above: Performed By: #### L [id number] #### [facility] ([facility]) [address] [place] [address] Lymphocytes (Bld) [#/Vol] 1.46 10*3/uL Normal 1.20-4.00 [facility] Comment on above: Performed By: #### L [id number] #### [facility] ([facility]) [address] [place] [address] Lymphocytes/100 WBC (Bld) 19.3 % Low 20.0-45.0 [facility] Comment on above: Performed By: #### L [id number] #### [facility] [address] [place] [address] MCH (RBC) [Entitic mass] 28.8 pg Normal 27.0-33.0 [facility] Comment on above: Performed By: #### L [id number] #### [facility] ([facility]) [address] [place] [address] MCV (RBC) [Entitic vol] 87.0 fL Normal 82.0-98.0 [facility] Comment on above: Performed By: #### L [id number] #### [facility] ([facility]) [address] [place] [address] Monocytes (Bld) [#/Vol] 0.69 10*3/uL Normal 0.10-1.00 [facility] Comment on above: Performed By: #### L [id number] #### [facility] [address] [place] [address] Monocytes/100 WBC (Bld) 9.1 % Normal 5.0-12.0 [facility] Comment on above: Performed By: #### L [id number] #### [facility] [address] [place] [address] Neutrophils (Bld) [#/Vol] 4.73 10*3/uL Normal 1.60-7.60 [facility] Comment on above: Performed By: #### L [id number] #### [facility] [address] [place] [address] Neutrophils/100 WBC (Bld) 62.3 % Normal 40.0-72.0 [facility] Comment on above: Performed By: #### L [id number] #### [facility] ([facility]) [address] [place] [address] NRBC (PER 100 WBCS) BY AUTOMATED COUNT 0.0 % Normal 0 [facility] Comment on above: Performed By: #### L [id number] #### [facility] [address] [place] [address] PLATELETS (10*3/UL) IN BLOOD AUTOMATED COUNT 175 10*3/uL Normal 150-400 [facility] Comment on above: Performed By: #### L [id number] #### [facility] ([facility]) [address] [place] [address] RBC (Bld) [#/Vol] 4.31 10*6/uL Normal 3.80-5.00 [facility] Comment on above: Performed By: #### L [id number] #### [facility] ([facility]) [address] [place] [address] WBC (Bld) [#/Vol] 7.58 10*3/uL Normal 4.00-10.60 [facility] Comment on above: Performed By: #### L [id number] #### [facility] ([facility]) [address] [place] [address] CONSULTon 02-05-2023 CONSULT ------- Attestation signed by Matilda Valentin MD at [...] stenosis. The patient is very high risk. [place] [facility] Consult Note Reason for visit: near-syncope [...] by mouth 4 (four) times a week. Sun,,Wed,Sun NIFEdipine CC (Adalat CC) 30 mg 24 hr tablet Take 30 mg by mouth before breakfast. Do not crush, chew, or split. sennosides-docusate sodium (Latisha-Colace) 8.6-50 mg tablet Take 1 tablet by mouth in the morning. Wed,,Sat,Sun ROS: Cardio Basic Cardiovascular Symptoms: no lightheadedness, (more content not included)... Normal [facility] HEPATIC FUNCTION PANELon Albumin [Mass/Vol] 3.8 g/dL Normal 3.5-5.7 [facility] Comment on above: Performed By: #### L [id number] #### [facility] ([facility]) [address] [place] [address] ALP [Catalytic activity/Vol] 92 U/L Normal 34-104 [facility] Comment on above: Performed By: #### L [id number] #### [facility] ([facility]) [address] [place] [address] ALT [Catalytic activity/Vol] 11 U/L Normal 7-52 [facility] Comment on above: Performed By: #### L [id number] #### [facility] ([facility]) [address] [place] [address] AST [Catalytic activity/Vol] 23 U/L Normal 13-39 [facility] Comment on above: Performed By: #### L [id number] #### [facility] ([facility]) [address] [place] [place] [address] Bilirubin [Mass/Vol] 0.8 mg/dL Normal 0.3-1.0 [facility] Comment on above: Performed By: #### L [id number] #### [facility] ([facility]) [address] [place] [address] Magnesium [Mass/Vol] 0.1 mg/dL Normal 0-0.2 [facility] Comment on above: Performed By: #### L [id number] #### [facility] ([facility]) [address] [place] [address] Protein [Mass/Vol] 6.5 g/dL Normal 6.0-8.3 [facility] Comment on above: Performed By: #### L [id number] #### [facility] ([facility]) [place] [address] on 02-05-2023 H&P reviewed. The jordon mendez was examined and there are no changes to the H&P. [facility] H&P reviewed. The jordon mendez was examined and there are no changes to the H&P. [facility] HP ------- Attestation signed by Matilda Valentin MD at [...] stenosis. The patient is very high risk. [place] [facility] Consult [place] Reason for visit: near-syncope [...] not crush, chew, or split. sennosides-docusate sodium (Latisha-Colace) 8.6-50 mg tablet Take 1 tablet by mouth in the morning. Sun,,Sun,Sun ROS: Cardio Basic Cardiovascular Symptoms: no lightheadedness, (more content not included)... Normal [facility] MAGNESIUMon 02-05-2023 Magnesium [Mass/Vol] 1.4 mg/dL Low 1.9-2.7 [facility] Comment on above: Performed By: #### L [id number] ####[facility] ([facility])[address] [place] [address] TROPONIN Ion 02-05-2023 Troponin I.cardiac [Mass/Vol] 0.25 ng/mL Critically high 0.00-0.04 [facility] Comment on above: Result Comment: M-[place] EVIOUS CRITICAL RESULT Previous result verified on 02/05/2023 0550 on specimen/case [id number] called with component Troponin I for procedure Troponin I with value 0.21 ng/mL. Performed By: #### L [id number] #### [facility] ([facility]) [address] [place] [address] Troponin I.cardiac [Mass/Vol] 0.21 ng/mL Critically high 0.00-0.04 [facility] Comment on above: Result Comment: M-[place] EVIOUS CRITICAL RESULT Previous result verified on 02/05/2023 0053 on specimen/case [id number] called with component Troponin I for procedure Troponin I with value 0.27 ng/mL. Performed By: #### L [id number] #### [facility] ([facility]) [address] [place] [address] Troponin I.cardiac [Mass/Vol] 0.27 ng/mL Critically high 0.00-0.04 [facility] Comment on above: Result Comment: M-TR OPONIN INITIAL CRITICAL HIGH; RESPUN AND RETESTED Performed By: #### L [id number] #### [facility] ([facility]) [address] [place] [address] HPon 01-23-2023 [facility] Electrophysiology Consult Note Reason for [...] stenosis, CKD. She was recently admitted to [facility] for weakness, suspected to have a [...] stroke who presented with generalized weakness to [facility]. At [facility], EKG demonstarted a 2:1 AV block with prolonged [place] interval 266. Chest x-ray demonstrated possible trace [...] heart rate 59. Patient was transferred to [facility] for further evaluation by cardiology. She [...] artery disease Hypertension Myocardial infarct (CMS/HCC) Stroke ([facility]/HCC) PSH: Past [...] tablet anastrozole (more content not included)... Normal [facility] Office Visiton 01-23-2023 Follow-up visit [id number] Trisha Parish 1945 F Date Provider Department Center 01/23/2023 MANDI FUENTSE [facility] No family history on file Level of Service:29883 [place] OFFICE/OUTPATIENT NEW MODERATE MDM 45-59 MINUTES Reason for Visit and Comments: Follow-up [986052] - 3 month follow up Normal [facility] Office Visiton 01-17-2023 Follow-up visit [id number] Trisha Parish 1945 F Date Provider Department Center 01/17/2023 TOÑO SIMPSON [facility] No family history on file Level of Service:57215 [place] OFFICE/OUTPATIENT ESTABLISHED MOD MDM 30-39 MIN Reason for Visit and Comments: Valve Disorder [3372] Atrial Fibrillation [80] Coronary Artery Disease [187] Normal [facility] PTH INTACTon 10-07-2022 PTH, Intact 45 pg/mL Normal 15-65 [facility] Comment on above: Performed By: #### P T, PTT #### [facility] [address] [place] [address] Dr. Madisyn Bentley RENAL FUNCTION PANELon 10-06 Albumin [Mass/Vol] 3.3 g/dL Critically low 3.4-5.0 [facility] Comment on above: Performed By: #### R ENAL #### [facility] [address] [address] [address] Madisyn Bentley Calcium [Mass/Vol] 8.2 mg/dL Critically low 8.5-10.1 [facility] Comment on above: Performed By: #### R ENAL #### [facility] [address] [address] [address] Madisyn Bentley Chloride [Moles/Vol] 110 mmol/L Critically high 98-107 [facility] Comment on above: Performed By: #### R ENAL #### [facility] [address] [address] [address] Madisyn Bentley CO2 [Moles/Vol] 22.2 mmol/L Normal 21.0-32.0 [facility] Comment on above: Performed By: #### R ENAL #### [facility] [address] [address] [address] Madisyn Bentley Creatinine [Mass/Vol] 1.36 mg/dL Critically high 0.55-1.02 [facility] Comment on above: Performed By: #### R ENAL #### [facility] [address] [address] [address] Madisyn Bentley EGFR-AF DJIBOUTIAN 46 mL/min/1.73m2 Critically low >=60 [facility] Comment on above: Performed By: #### R ENAL #### [facility] [address] [address] [address] Madisyn Bentley EGFR-NON AF DJIBOUTIAN 38 mL/min/1.73m2 Critically low >=60 [facility] Comment on above: Performed By: #### R ENAL #### [facility] [address] [address] [address] Madisyn Bentley Glucose [Mass/Vol] 145 mg/dL Critically high 74-106 [facility] Comment on above: Performed By: #### R ENAL #### [facility] [address] [address] [address] Madisyn Bentley Phosphate [Mass/Vol] 2.7 mg/dL Normal 2.6-4.7 [facility] Comment on above: Performed By: #### R ENAL #### [facility] [address] [address] [address] Madisyn Bentley Potassium [Moles/Vol] 3.9 mmol/L Normal 3.5-5.1 [facility] Comment on above: Performed By: #### R ENAL #### [facility] [address] [address] [address] Madisyn Bentley Sodium [Moles/Vol] 143 mmol/L Normal 136-145 [facility] Comment on above: Performed By: #### R ENAL #### [facility] [address] [address] [address] Madisyn Bentley Urea nitrogen [Mass/Vol] 24.0 mg/dL Critically high 7.0-18.0 [facility] Comment on above: Performed By: #### R ENAL #### [facility] [address] [place] [address] Dr. Madisyn Bentley UA RANDOMon 10-06-2022 Bilirubin Ql (U) Negative Normal NEGATIVE [facility] Comment on above: Performed By: #### R ENAL #### [facility] [address] [place] [address] Dr. Madisyn Bentley Clarity (U) CLEAR Normal CLEAR [facility] Comment on above: Performed By: #### R ENAL #### [facility] [address] [place] [address] Dr. Madisyn Bentley Color (U) LT. YELLOW Normal YELLOW [facility] Comment on above: Performed By: #### R ENAL #### [facility] [address] [place] [address] Dr. Madisyn Bentley Glucose Ql (U) Negative Normal NEGATIVE [facility] Comment on above: Performed By: #### R ENAL #### [facility] [address] [place] [address] Dr. Madisyn Bentley Hemoglobin Ql (U) Negative Normal NEGATIVE [facility] Comment on above: Performed By: #### R ENAL #### [facility] [address] [place] [address] Dr. Madisyn Bentley Ketones Ql (U) Negative Normal NEGATIVE [facility] Comment on above: Performed By: #### R ENAL #### [facility] [address] [place] [address] Dr. Madisyn Bentley LEUKOCYTES SMALL Abnormal NEGATIVE [facility] Comment on above: Performed By: #### R ENAL #### [facility] [address] [place] [address] Dr. Madisyn Bentley Nitrite Ql (U) Negative Normal NEGATIVE [facility] Comment on above: Performed By: #### R ENAL #### [facility] [address] [place] [address] Dr. Madisyn Bentley pH (U) 5.5 [pH] Normal 5-9 [facility] Comment on above: Performed By: #### R ENAL #### [facility] [address] [place] [address] Dr. Madisyn Bentley SPEC GRAVITY 1.020 Normal 1.005-<=1.0 25 [facility] Comment on above: Performed By: #### R ENAL #### [facility] [address] [place] [address] Dr. Madisyn Bentley UA PROTEIN TRACE Normal NEGATIVE/ TRACE [facility] Comment on above: Performed By: #### R ENAL #### [facility] [address] [place] [address] Dr. Madisyn Bentley Urobilinogen Qn (U) 0.2 {Luis Eduardo'U}/dL Normal 0.2 - 1. 0 [facility] Comment on above: Performed By: #### R ENAL #### [facility] [address] [place] [address] Dr. Madisyn Bentley URINE T PROTEIN CREAT RATIOo n 10-06-2022 Protein (U) [Mass/Vol] 47.8 mg/dL Critically high <=12.0 [facility] Comment on above: Performed By: #### U RTPCR #### [facility] [address] [place] [address] Dr. Madisyn Bentley UR PROT CREAT RAT 0.26 Normal [facility] Comment on above: Performed By: #### U RTPCR #### [facility] [address] [place] [address] Dr. Madisyn Bentley URINE CREAT 186.22 mg/dL Normal 20.00-300.0 0 [facility] Comment on above: Performed By: #### U RTPCR #### [facility] [address] [place] [address] Dr. Madisyn Bentley BNPon 09-10-2022 Natriuretic peptide B (Bld) [Mass/Vol] 53098.0 pg/mL Critically high <=1,800.0 [facility] Comment on above: Performed By: #### B WASTE HAND, HSTROPN #### [facility] [address] [place] [address] Dr. Madisyn Bentley CBC AUTO DIFFon 09-10-2022 BASO # 0.0 103/ul Normal 0.0-0.1 [facility] Comment on above: Performed By: #### R ENAL #### [facility] [address] [place] [address] Dr. Madisyn Bentley Basophils/100 WBC (Bld) 0.3 % Normal 0.2-2.0 [facility] Comment on above: Performed By: #### R ENAL #### [facility] [address] [place] [address] Dr. Madisyn Bentley EO # 0.3 103/ul Normal 0.0-0.7 [facility] Comment on above: Performed By: #### R ENAL #### [facility] [address] [place] [address] Dr. Madisyn Bentley Eosinophils/100 WBC (Bld) 2.4 % Normal 0.9-7.0 [facility] Comment on above: Performed By: #### R ENAL #### [facility] [address] [place] [address] Dr. Madisyn Bentley Erythrocyte distribution width (RBC) [Ratio] 13.3 % Normal 11.0-15.0 [facility] Comment on above: Performed By: #### R ENAL #### [facility] [address] [place] [address] Dr. Madisyn Bentley Hematocrit (Bld) [Volume fraction] 36.0 % Normal 36.0-48.0 [facility] Comment on above: Performed By: #### R ENAL #### [facility] [address] [place] [address] Dr. Madisyn Bentley Hemoglobin (Bld) [Mass/Vol] 11.2 g/dL Critically low 12.0-16.0 [facility] Comment on above: Performed By: #### R ENAL #### [facility] [address] [place] [address] Dr. Madisyn Bentley IG # 0.02 10e3/ul Normal 0.00-0.03 [facility] Comment on above: Performed By: #### R ENAL #### [facility] [address] [place] [address] Dr. Madisyn Bentley IG % 0.2 % Normal 0.0-0.5 [facility] Comment on above: Performed By: #### R ENAL #### [facility] [address] [place] [address] Dr. Madisyn Bentley LYMPH # 1.4 103/ul Normal 1.2-3.8 [facility] Comment on above: Performed By: #### R ENAL #### [facility] [address] [place] [address] Dr. Madisyn Bentley Lymphocytes/100 WBC (Bld) 13.3 % Critically low 20.5-60.0 [facility] Comment on above: Performed By: #### R ENAL #### [facility] [address] [place] [address] Dr. Madisyn Bentley MANUAL DIFF REQ NO Normal [facility] Comment on above: Performed By: #### R ENAL #### [facility] [address] [place] [address] Dr. Madisyn Bentley MCH (RBC) [Entitic mass] 28.9 pg Normal 26.7-34.0 [facility] Comment on above: Performed By: #### R ENAL #### [facility] [address] [place] [address] Dr. Madisyn Bentley MCHC (RBC) [Mass/Vol] 31.1 g/dL Normal 29.9-35.2 [facility] Comment on above: Performed By: #### R ENAL #### [facility] [address] [place] [address] Dr. Madisyn Bentley MCV (RBC) [Entitic vol] 92.8 fL Normal 81.0-99.0 [facility] Comment on above: Performed By: #### R ENAL #### [facility] [address] [place] [address] Dr. Madisyn Bentley MONO # 0.9 103/ul Critically high 0.3-0.[address] [facility] Comment on above: Performed By: #### R ENAL #### [facility] [address] [place] [address] Dr. Madisyn Bentley Monocytes/100 WBC (Bld) 8.4 % Normal 1.7-12.0 [facility] Comment on above: Performed By: #### R ENAL #### [facility] [address] [place] [address] Dr. Madisyn Bentley NEUT # 8.1 103/ul Critically high 1.4-6.[address] [facility] Comment on above: Performed By: #### R ENAL #### [facility] [address] [place] [address] Dr. Madisyn Bentley Neutrophils/100 WBC (Bld) 75.4 % Critically high 43.0-75.0 [facility] Comment on above: Performed By: #### R ENAL #### [facility] [address] [place] [address] Dr. Madisyn Bentley Platelet mean volume (Bld) [Entitic vol] 12.8 fL Normal 9.5-13.5 [facility] Comment on above: Performed By: #### R ENAL #### [facility] [address] [place] [address] Dr. Madisyn Bentley PLT 200 103/ul Normal 150-450 [facility] Comment on above: Performed By: #### R ENAL #### [facility] [address] [place] [address] Dr. Madisyn Bentley RBC 3.88 106/ul Critically low 4.20-5.[address] [facility] Comment on above: Performed By: #### R ENAL #### [facility] [address] [place] [address] Dr. Madisyn Bentley WBC 10.8 103/ul Normal 4.0-11.0 [facility] Comment on above: Performed By: #### R ENAL #### [facility] [address] [place] [address] Dr. Madisyn Bentley Covid-19 PCR ([facility])on SARS-CoV-2 (COVID-19) RNA SUSAN+probe Ql (Unsp spec) Not detected Normal NOT DETECTED [facility] Comment on above: Result Comment: When diagnostic [...] for this test is supported by the Drawer Hardware Worker of Health and Human Service's declaration that [...] Performed By: #### P T, PTT #### [facility] [address] [place] [address] Dr. Madisyn Bentley PROF 14(COMP METB)on 023 Albumin [Mass/Vol] 3.0 g/dL Critically low 3.4-5.0 Th e [facility] Comment on above: Performed By: #### R ENAL #### [facility] [address] [place] [address] Dr. Madisyn Bentley Albumin/Globulin [Mass ratio] 0.8 {ratio} Normal [facility] Comment on above: Performed By: #### R ENAL #### [facility] [address] [place] [address] Dr. Madisyn Bentley ALP [Catalytic activity/Vol] 113 U/L Normal 46-116 [facility] Comment on above: Performed By: #### R ENAL #### [facility] [address] [place] [address] Dr. Madisyn Bentley ALT [Catalytic activity/Vol] 15 U/L Normal 14-59 [facility] Comment on above: Performed By: #### R ENAL #### [facility] [address] [place] [address] Dr. Madisyn Bentley Anion gap [Moles/Vol] 16.4 mmol/L Normal [facility] Comment on above: Performed By: #### R ENAL #### [facility] [address] [address] [address] Madisyn Bentley AST [Catalytic activity/Vol] 15 U/L Normal 15-37 [facility] Comment on above: Performed By: #### R ENAL #### [facility] [address] [address] [address] Madisyn Bentley Bilirubin [Mass/Vol] 0.6 mg/dL Normal 0.2-1.0 [facility] Comment on above: Performed By: #### R ENAL #### [facility] [address] [address] [address] Madisyn Bentley Calcium [Mass/Vol] 8.6 mg/dL Normal 8.5-10.1 [facility] Comment on above: Performed By: #### R ENAL #### [facility] [address] [place] [address] Dr. Madisyn Bentley Chloride [Moles/Vol] 102 mmol/L Normal 98-107 [facility] Comment on above: Performed By: #### R ENAL #### [facility] [address] [place] [address] Dr. Madisyn Bentley CO2 [Moles/Vol] 18.9 mmol/L Critically low 21.0-32.0 [facility] Comment on above: Performed By: #### R ENAL #### [facility] [address] [place] [address] Dr. Madisyn Bentley Creatinine [Mass/Vol] 1.95 mg/dL Critically high 0.55-1.02 [facility] Comment on above: Performed By: #### R ENAL #### [facility] [address] [place] [address] Dr. Madisyn Bentley EGFR-AF DJIBOUTIAN 30 mL/min/1.73m2 Critically low >=60 [facility] Comment on above: Performed By: #### R ENAL #### [facility] [address] [address] [address] Madisyn Bentley EGFR-NON AF DJIBOUTIAN 25 mL/min/1.73m2 Critically low >=60 [facility] Comment on above: Performed By: #### R ENAL #### [facility] [address] [address] [address] Madisyn Bentley Globulin (S) [Mass/Vol] 3.7 g/dL Normal [facility] Comment on above: Performed By: #### R ENAL #### [facility] [address] [address] [address] Madisyn Bentley Glucose [Mass/Vol] 190 mg/dL Critically high 74-106 [facility] Comment on above: Performed By: #### R ENAL #### [facility] [address] [address] [address] Madisyn Bentley Potassium [Moles/Vol] 4.3 mmol/L Normal 3.5-5.1 [facility] Comment on above: Performed By: #### R ENAL #### [facility] [address] [address] [address] Madisyn Bentley Protein [Mass/Vol] 6.7 g/dL Normal 6.4-8.2 [facility] Comment on above: Performed By: #### R ENAL #### [facility] [address] [address] [address] Madisyn Bentley Sodium [Moles/Vol] 133 mmol/L Critically low 136-145 [facility] Comment on above: Performed By: #### R ENAL #### [facility] [address] [address] [address] Madisyn Bentley Urea nitrogen [Mass/Vol] 51.0 mg/dL Critically high 7.0-18.0 [facility] Comment on above: Performed By: #### R ENAL #### [facility] [address] [address] [address] Madisyn Bentley Urea nitrogen/Creatinine [Mass ratio] 26.2 mg/mg Normal [facility] Comment on above: Performed By: #### R ENAL #### [facility] [address] [address] [address] Madisyn Bentley PROTIMEon 09-10-2022 INR Coag (PPP) [Relative time] 1.20 {INR} Normal [facility] Comment on above: Performed By: #### P T, PTT #### [facility] [address] [address] [address] Madisyn Bentley INR GUIDELINES SEE BELOW Normal [facility] Comment on above: Result Comment: ROMY RED INR: 2.0 - 3.0 CONDITIONS NOT LISTED BELOW 2.5 - 3.5 FOR PROSTHETIC HEART VALVE REPLACEMENT 2.5 - 3.5 RECURRENT THROMBOSIS Performed By: #### P T, PTT #### [facility] [address] [address] [address] Madisyn Bentley PT Coag (PPP) [Time] 12.6 s Critically high 9.0-11.6 [facility] Comment on above: Performed By: #### P T, PTT #### [facility] [address] [place] [address] Dr. Madisyn Bentley PTTon 09-10-2022 aPTT Coag (Bld) [Time] 36.0 s Normal 22.3-36.2 [facility] Comment on above: Performed By: #### P T, PTT #### [facility] [address] [place] [address] Dr. Madisyn Bentley TROPONIN, HIGH SENSITIVITYon 09-10-2022 HSTROP 79.4 pg/mL Critically high 4.0-51.[address] [facility] Comment on above: Result Comment: CUT- OFF POINTS HAVE BEEN ESTABLISHED BASED ON THE FOURTH UNIVERSAL DEFINITIONS OF MYOCARDIAL INFARCTION. THE UPPER REFERENCE LIMIT (URL) OF TROPONIN, DEFINED THE 99TH PERCENTILE OF cTnI DISTRIBUTION IN A REFERENCE POPULATION, HAS BEEN CONFIRMED THE DECISION THRESHOLD FOR MS DIAGNOSIS. Performed By: #### B WASTE HAND, HSTROPN #### [facility] [address] [place] [address] Dr. Madisyn Bentley XR CHEST 1 Von [...] Kelli FLANNERY Date: 2022-09-10 04:58 Normal [facility] GLYCOHEMOGLOBIN A1Con 2021 ADA RECOMMENDATION SEE BELOW Normal [facility] Comment on above: Result Comment: ADA RECOMMENDED LIMIT 4.0 - 6.0 ADA THERAPEUTIC TARGET < 7.0 ACTION SUGGESTED > 7.0 Performed By: #### P T, PTT #### [facility] [address] [place], [place] [address] Dr. Madisyn Bentley Glucose [Mass/Vol] 186 mg/dL Normal [facility] Comment on above: Performed By: #### P T, PTT #### [facility] [address] [place], [place] [address] Dr. Madisyn Bentley HbA1c (Bld) [Mass fraction] 8.1 % Critically high 4.5-6.2 [facility] Comment on above: Performed By: #### P T, PTT #### [facility] [address] [place], [place] [address] Dr. Madisyn Bentley US THYROIDon 05-24-2022 US [...] by: DIAMOND HILARIO Date: 2022-05-24 12:24 Normal [facility] MG MAMM SCREEN RT 3D CADon 1 MG MAMM SCREEN RT 3D CAD Patient: TRISHA PARISH Exam Date: 05/23/2022 : 1945 Gender:F Ordering : DR SANYA TINEO M.D. Admission #: [id number] Family : Order #: [id number] CLICK HERE TO VIEW EXAM RADIOLOGY REPORT [...] and chemotherapy Family Cancers None LOCATION: [facility] BREAST COMPOSITION: Scattered areas fibroglandular density. FINDINGS: [...] Hilario M.D. on 05/23/2022 at 10:38 Normal [facility] XR DEXA BONE DENSITYon 05-23 [...] DIAMOND HILARIO Date: 2022-05-23 19:25 Normal [facility] CBC AUTO DIFFon 05-16-2022 BASO # 0.0 103/ul Normal 0.0-0.1 [facility] Comment on above: Performed By: #### C BC #### [facility] [address] [place] [address] Dr. Madisyn Bentley Basophils/100 WBC (Bld) 0.4 % Normal 0.2-2.0 [facility] Comment on above: Performed By: #### C BC #### [facility] [address] [address] [address] Madisyn Bentley EO # 0.3 103/ul Normal 0.0-0.7 [facility] Comment on above: Performed By: #### C BC #### [facility] [address] [address] [address] Madisyn Bentley Eosinophils/100 WBC (Bld) 4.5 % Normal 0.9-7.0 [facility] Comment on above: Performed By: #### C BC #### [facility] [address] [address] [address] Madisyn Bentley Erythrocyte distribution width (RBC) [Ratio] 13.1 % Normal 11.0-15.0 [facility] Comment on above: Performed By: #### C BC #### [facility] [address] [place] [address] Dr. Madisyn Bentley Hematocrit (Bld) [Volume fraction] 37.9 % Normal 36.0-48.0 [facility] Comment on above: Performed By: #### C BC #### [facility] [address] [address] [address] Madisyn Bentley Hemoglobin (Bld) [Mass/Vol] 12.4 g/dL Normal 12.0-16.0 [facility] Comment on above: Performed By: #### C BC #### [facility] [address] [address] [address] Madisyn Bentley IG # 0.02 10e3/ul Normal 0.00-0.03 [facility] Comment on above: Performed By: #### C BC #### [facility] [address] [place] [address] Dr. Mdaisyn Bentley IG % 0.3 % Normal 0.0-0.5 [facility] Comment on above: Performed By: #### C BC #### [facility] [address] [place] [address] Dr. Madisyn Bentley LYMPH # 1.6 103/ul Normal 1.2-3.8 [facility] Comment on above: Performed By: #### C BC #### [facility] [address] [place] [address] Dr. Madisyn Bentley Lymphocytes/100 WBC (Bld) 22.0 % Normal 20.5-60.0 [facility] Comment on above: Performed By: #### C BC #### [facility] [address] [place] [address] Dr. Madisyn Bentley MANUAL DIFF REQ NO Normal [facility] Comment on above: Performed By: #### C BC #### [facility] [address] [place] [address] Dr. Madisyn Bentley MCH (RBC) [Entitic mass] 29.4 pg Normal 26.7-34.0 [facility] Comment on above: Performed By: #### C BC #### [facility] [address] [place] [address] Dr. Madisyn Bentley MCHC (RBC) [Mass/Vol] 32.7 g/dL Normal 29.9-35.2 [facility] Comment on above: Performed By: #### C BC #### [facility] [address] [address] [address] Madisyn Bentley MCV (RBC) [Entitic vol] 89.8 fL Normal 81.0-99.0 [facility] Comment on above: Performed By: #### C BC #### [facility] [address] [address] [address] Madisyn Bentley MONO # 0.5 103/ul Normal 0.3-0.8 [facility] Comment on above: Performed By: #### C BC #### [facility] [address] [address] [address] Madisyn Bentley Monocytes/100 WBC (Bld) 7.3 % Normal 1.7-12.0 [facility] Comment on above: Performed By: #### C BC #### [facility] [address] [place] [address] Dr. Madisyn Bentley NEUT # 4.9 103/ul Normal 1.4-6.5 [facility] Comment on above: Performed By: #### C BC #### [facility] [address] [place] [address] Dr. Madisyn Bentley Neutrophils/100 WBC (Bld) 65.5 % Normal 43.0-75.0 [facility] Comment on above: Performed By: #### C BC #### [facility] [address] [place] [address] Dr. Madisyn Bentley Platelet mean volume (Bld) [Entitic vol] 12.1 fL Normal 9.5-13.5 [facility] Comment on above: Performed By: #### C BC #### [facility] [address] [place] [address] Dr. Madisyn Bentley PLT 171 103/ul Normal 150-450 [facility] Comment on above: Performed By: #### C BC #### [facility] [address] [place] [address] Dr. Madisyn Bentley RBC 4.22 106/ul Normal 4.20-5.40 [facility] Comment on above: Performed By: #### C BC #### [facility] [address] [address] [address] Madisyn Bentley WBC 7.4 103/ul Normal 4.0-11.0 [facility] Comment on above: Performed By: #### C BC #### [facility] [address] [address] [address] Madisyn Bentley LIPID PROFILEon 05-16-2022 CHOL-HDL RATIO NORM SEE BELOW Normal [facility] Comment on above: Result Comment: 3.3 - 4.4 LOW RISK 4.4 - 7.1 AVERAGE RISK 7.1 - 11.0 MODERATE RISK >11.0 HIGH RISK Performed By: #### P T, PTT #### [facility] [address] [address] [address] Madisyn Bentley Cholesterol [Mass/Vol] 132 mg/dL Normal <=200 [facility] Comment on above: Performed By: #### P T, PTT #### [facility] [address] [address] [address] Madisyn Bentley Cholesterol in HDL [Mass/Vol] 44 mg/dL Normal 40-60 [facility] Comment on above: Performed By: #### P T, PTT #### [facility] [address] [address] [address] Madisyn Bentley Cholesterol in LDL [Mass/Vol] 59.6 mg/dL Normal [facility] Comment on above: Performed By: #### P T, PTT #### [facility] [address] [address] [address] Madisyn Bentley Cholesterol.total/C holesterol in HDL [Mass ratio] 3.0 {ratio} Normal [facility] Comment on above: Performed By: #### P T, PTT #### [facility] [address] [address] [address] Madisyn Bentley HDL NORMAL > or = 60 mg/dl - LO W CARDIOVASCULAR RISK <40 mg/dl - HIGH CARDIOVASCULAR RISK Normal [facility] Comment on above: Performed By: #### P T, PTT #### [facility] [address] [address] [address] Madisyn Bentley LDL CALC NORMAL SEE BELOW Normal [facility] Comment on above: Result Comment: <100 mg/dl OPTIMAL 100 - 129 mg/dl NEAR OR ABOVE OPTIMAL 130 - 159 mg/dl BORDERLINE HIGH 160 - 189 mg/dl HIGH >190 mg/dl VERY HIGH Performed By: #### P T, PTT #### [facility] [address] [place] [address] Dr. Madisyn Bentley Triglyceride [Mass/Vol] 142 mg/dL Normal <=150 [facility] Comment on above: Performed By: #### P T, PTT #### [facility] [address] [place] [address] Dr. Madisyn Bentley VLDL CALC 28.4 mg/dL Normal [facility] Comment on above: Performed By: #### P T, PTT #### [facility] [address] [place] [address] Dr. Madisyn Bentley PROF 14(COMP METB)on 022 Albumin [Mass/Vol] 3.8 g/dL Normal 3.4-5.0 [facility] Comment on above: Performed By: #### P T, PTT #### [facility] [address] [place] [address] Dr. Madisyn Bentley Albumin/Globulin [Mass ratio] 1.1 {ratio} Normal [facility] Comment on above: Performed By: #### P T, PTT #### [facility] [address] [place] [address] Dr. Madisyn Bentley ALP [Catalytic activity/Vol] 158 U/L Critically high 46-116 [facility] Comment on above: Performed By: #### P T, PTT #### [facility] [address] [place] [address] Dr. Madisyn Bentley ALT [Catalytic activity/Vol] 24 U/L Normal 14-59 [facility] Comment on above: Performed By: #### P T, PTT #### [facility] [address] [place] [address] Dr. Madisyn Bentley Anion gap [Moles/Vol] 14.1 mmol/L Normal [facility] Comment on above: Performed By: #### P T, PTT #### [facility] [address] [place] [address] Dr. Madisyn Bentley AST [Catalytic activity/Vol] 12 U/L Critically low 15-37 [facility] Comment on above: Performed By: #### P T, PTT #### [facility] [address] [address] [address] Madisyn Bentley Bilirubin [Mass/Vol] 0.7 mg/dL Normal 0.2-1.0 [facility] Comment on above: Performed By: #### P T, PTT #### [facility] [address] [address] [address] Madisyn Bentley Calcium [Mass/Vol] 8.9 mg/dL Normal 8.5-10.1 [facility] Comment on above: Performed By: #### P T, PTT #### [facility] [address] [address] [address] Madisyn Bentley Chloride [Moles/Vol] 105 mmol/L Normal 98-107 [facility] Comment on above: Performed By: #### P T, PTT #### [facility] [address] [address] [address] Madisyn Bentley CO2 [Moles/Vol] 23.4 mmol/L Normal 21.0-32.0 [facility] Comment on above: Performed By: #### P T, PTT #### [facility] [address] [address] [address] Madisyn Bentley Creatinine [Mass/Vol] 1.64 mg/dL Critically high 0.55-1.02 [facility] Comment on above: Performed By: #### P T, PTT #### [facility] [address] [address] [address] Madisyn Bentley EGFR-AF DJIBOUTIAN 37 mL/min/1.73m2 Critically low >=60 [facility] Comment on above: Performed By: #### P T, PTT #### [facility] [address] [address] [address] Madisyn Bentley EGFR-NON AF DJIBOUTIAN 30 mL/min/1.73m2 Critically low >=60 [facility] Comment on above: Performed By: #### P T, PTT #### [facility] [address] [address] [address] Madisyn Bentley Globulin (S) [Mass/Vol] 3.5 g/dL Normal [facility] Comment on above: Performed By: #### P T, PTT #### [facility] [address] [address] [address] Madisyn Bentley Glucose [Mass/Vol] 222 mg/dL Critically high 74-106 [facility] Comment on above: Performed By: #### P T, PTT #### [facility] [address] [place] [address] Dr. Madisyn Bentley Potassium [Moles/Vol] 4.5 mmol/L Normal 3.5-5.1 [facility] Comment on above: Performed By: #### P T, PTT #### [facility] [address] [place] [address] Dr. Madisyn Bentley Protein [Mass/Vol] 7.3 g/dL Normal 6.4-8.2 [facility] Comment on above: Performed By: #### P T, PTT #### [facility] [address] [place] [address] Dr. Madisyn Bentley Sodium [Moles/Vol] 138 mmol/L Normal 136-145 [facility] Comment on above: Performed By: #### P T, PTT #### [facility] [address] [place] [address] Dr. Madisyn Bentley Urea nitrogen [Mass/Vol] 35.0 mg/dL Critically high 7.0-18.0 [facility] Comment on above: Performed By: #### P T, PTT #### [facility] [address] [place] [address] Dr. Madisyn Bentley Urea nitrogen/Creatinine [Mass ratio] 21.3 mg/mg Normal [facility] Comment on above: Performed By: #### P T, PTT #### [facility] [address] [place] [address] Dr. Madisyn Bentley RENAL FUNCTION PANELon 04-07 Albumin [Mass/Vol] 3.5 g/dL Normal 3.4-5.0 [facility] Comment on above: Performed By: #### R ENAL #### [facility] [address] [address] [address] Madisyn Bentley Calcium [Mass/Vol] 8.1 mg/dL Critically low 8.5-10.1 [facility] Comment on above: Performed By: #### R ENAL #### [facility] [address] [address] [address] Madisyn Bentley Chloride [Moles/Vol] 110 mmol/L Critically high 98-107 [facility] Comment on above: Performed By: #### R ENAL #### [facility] [address] [address] [address] Madisyn Bentley CO2 [Moles/Vol] 20.2 mmol/L Critically low 21.0-32.0 [facility] Comment on above: Performed By: #### R ENAL #### [facility] [address] [address] [address] Madisyn Bentley Creatinine [Mass/Vol] 1.89 mg/dL Critically high 0.55-1.02 [facility] Comment on above: Performed By: #### R ENAL #### [facility] [address] [address] [address] Madisyn Bentley EGFR-AF DJIBOUTIAN 31 mL/min/1.73m2 Critically low >=60 [facility] Comment on above: Performed By: #### R ENAL #### [facility] [address] [address] [address] Madisyn Bentley EGFR-NON AF DJIBOUTIAN 26 mL/min/1.73m2 Critically low >=60 [facility] Comment on above: Performed By: #### R ENAL #### [facility] [address] [address] [address] Madisyn Bentley Glucose [Mass/Vol] 149 mg/dL Critically high 74-106 [facility] Comment on above: Performed By: #### R ENAL #### [facility] [address] [address] [address] Madisyn Bentley Phosphate [Mass/Vol] 3.4 mg/dL Normal 2.6-4.7 [facility] Comment on above: Performed By: #### R ENAL #### [facility] [address] [place] [address] Dr. Madisyn Bentley Potassium [Moles/Vol] 4.5 mmol/L Normal 3.5-5.1 [facility] Comment on above: Performed By: #### R ENAL #### [facility] [address] [place] [address] Dr. Madisyn Bentley Sodium [Moles/Vol] 141 mmol/L Normal 136-145 [facility] Comment on above: Performed By: #### R ENAL #### [facility] [address] [place] [address] Dr. Madisyn Bentley Urea nitrogen [Mass/Vol] 34.0 mg/dL Critically high 7.0-18.0 [facility] Comment on above: Performed By: #### R ENAL #### [facility] [address] [place] [address] Dr. Madisyn Bentley UA RANDOMon 04-07-2022 Bilirubin Ql (U) Negative Normal NEGATIVE [facility] Comment on above: Performed By: #### U A #### [facility] [address] [place] [address] Dr. Madisyn Bentley Clarity (U) CLEAR Normal CLEAR [facility] Comment on above: Performed By: #### U A #### [facility] [address] [place] [address] Dr. Madisyn Bentley Color (U) LT. YELLOW Normal YELLOW [facility] Comment on above: Performed By: #### U A #### [facility] [address] [place] [address] Dr. Madisyn Bentley Glucose Ql (U) Negative Normal NEGATIVE [facility] Comment on above: Performed By: #### U A #### [facility] [address] [place] [address] Dr. Madisyn Bentley Hemoglobin Ql (U) Negative Normal NEGATIVE [facility] Comment on above: Performed By: #### U A #### [facility] [address] [place] [address] Dr. Madisyn Bentley Ketones Ql (U) Negative Normal NEGATIVE [facility] Comment on above: Performed By: #### U A #### [facility] [address] [place] [address] Dr. Madisyn Bentley LEUKOCYTES TRACE Abnormal NEGATIVE [facility] Comment on above: Performed By: #### U A #### [facility] [address] [place] [address] Dr. Madisyn Bentley Nitrite Ql (U) Negative Normal NEGATIVE [facility] Comment on above: Performed By: #### U A #### [facility] [address] [place] [address] Dr. Madisyn Bentley pH (U) 5.5 [pH] Normal 5-9 [facility] Comment on above: Performed By: #### U A #### [facility] [address] [place] [address] Dr. Madisyn Bentley SPEC GRAVITY 1.020 Normal 1.005-<=1.[address] [place] [address] Comment on above: Performed By: #### U A #### [facility] [address] [place] [address] Dr. Madisyn Bentley UA PROTEIN Negative Normal NEGATIVE/ TRACE The [facility] Comment on above: Performed By: #### U A #### [facility] [address] [place] [address] Dr. Madisyn Bentley Urobilinogen Qn (U) 0.2 {Luis Eduardo'U}/dL Normal 0.2 - 1. 0 [facility] Comment on above: Performed By: #### U A #### [facility] [address] [place] [address] Dr. Madisyn Bentley URINE T PROTEIN CREAT RATIOo n 04-07-2022 Protein (U) [Mass/Vol] 25.7 mg/dL Critically high <=12.0 [facility] Comment on above: Performed By: #### P T, PTT #### [facility] [address] [place] [address] Dr. Madisyn Bentley UR PROT CREAT RAT 0.29 Normal [facility] Comment on above: Performed By: #### P T, PTT #### [facility] [address] [address] [address] Madisyn Bentley URINE CREAT 89.48 mg/dL Normal 20.00-300.0 0 [facility] Comment on above: Performed By: #### P T, PTT #### [facility] [address] [address] [address] Madisyn Bentley RENAL FUNCTION PANELon 11-25 Albumin [Mass/Vol] 3.7 g/dL Normal 3.4-5.0 [facility] Comment on above: Performed By: #### R ENAL #### [facility] [address] [address] [address] Madisyn Bentley Calcium [Mass/Vol] 8.6 mg/dL Normal 8.5-10.1 [facility] Comment on above: Performed By: #### R ENAL #### [facility] [address] [address] [address] Madisyn Bentley Chloride [Moles/Vol] 107 mmol/L Normal 98-107 [facility] Comment on above: Performed By: #### R ENAL #### [facility] [address] [address] [address] Madisyn Bentley CO2 [Moles/Vol] 23.3 mmol/L Normal 22.0-30.0 [facility] Comment on above: Performed By: #### R ENAL #### [facility] [address] [address] [address] Madisyn Bentley Creatinine [Mass/Vol] 1.56 mg/dL Critically high 0.55-1.02 [facility] Comment on above: Performed By: #### R ENAL #### [facility] [address] [address] [address] Madisyn Bentley EGFR-AF DJIBOUTIAN 39 mL/min/1.73m2 Critically low >=60 [facility] Comment on above: Performed By: #### R ENAL #### [facility] [address] [address] [address] Madisyn Bentley EGFR-NON AF DJIBOUTIAN 32 mL/min/1.73m2 Critically low >=60 [facility] Comment on above: Performed By: #### R ENAL #### [facility] [address] [address] [address] Madisyn Bentley Glucose [Mass/Vol] 106 mg/dL Normal 74-106 [facility] Comment on above: Performed By: #### R ENAL #### [facility] [address] [address] [address] Madisyn Bentley Phosphate [Mass/Vol] 3.8 mg/dL Normal 2.5-4.5 [facility] Comment on above: Performed By: #### R ENAL #### [facility] [address] [address] [address] Madisyn Bentley Potassium [Moles/Vol] 4.5 mmol/L Normal 3.4-5.0 [facility] Comment on above: Performed By: #### R ENAL #### [facility] [address] [address] [address] Madisyn Bentley Sodium [Moles/Vol] 141 mmol/L Normal 137-145 [facility] Comment on above: Performed By: #### R ENAL #### [facility] [address] [address] [address] Madisyn Bentley Urea nitrogen [Mass/Vol] 27.0 mg/dL Critically high 7.0-18.0 [facility] Comment on above: Performed By: #### R ENAL #### [facility] [address] [address] [address] Madisyn Bentley UA RANDOMon 11-25-2021 Bilirubin Ql (U) Negative Normal NEGATIVE [facility] Comment on above: Performed By: #### P T, PTT #### [facility] [address] [address] [address] Madisyn Bentley Clarity (U) CLEAR Normal CLEAR [facility] Comment on above: Performed By: #### P T, PTT #### [facility] [address] [address] [address] Madisyn Bentley Color (U) LT. YELLOW Normal YELLOW [facility] Comment on above: Performed By: #### P T, PTT #### [facility] [address] [address] [address] Madisyn Bentley Glucose Ql (U) Negative Normal NEGATIVE [facility] Comment on above: Performed By: #### P T, PTT #### [facility] [address] [place] [address] Dr. Madisyn Bentley Hemoglobin Ql (U) Negative Normal NEGATIVE [facility] Comment on above: Performed By: #### P T, PTT #### [facility] [address] [address] [address] Madisyn Bentley Ketones Ql (U) Negative Normal NEGATIVE [facility] Comment on above: Performed By: #### P T, PTT #### [facility] [address] [place] [address] Dr. Madisyn Bentley LEUKOCYTES Negative Normal NEGATIVE [facility] Comment on above: Performed By: #### P T, PTT #### [facility] [address] [place] [address] Dr. Madisyn Bentley Nitrite Ql (U) Negative Normal NEGATIVE [facility] Comment on above: Performed By: #### P T, PTT #### [facility] [address] [place] [address] Dr. Madisyn Bentley pH (U) 5.5 [pH] Normal 5-9 [facility] Comment on above: Performed By: #### P T, PTT #### [facility] [address] [place] [address] Dr. Madisyn Bentley SPEC GRAVITY 1.015 Normal 1.005-<=1.0 25 [facility] Comment on above: Performed By: #### P T, PTT #### [facility] [address] [place] [address] Dr. Madisyn Bentley UA PROTEIN Negative Normal NEGATIVE/ TRACE [facility] Comment on above: Performed By: #### P T, PTT #### [facility] [address] [place] [address] Dr. Madisyn Bentley Urobilinogen Qn (U) 0.2 {Luis Eduardo'U}/dL Normal 0.2 - 1. 0 [facility] Comment on above: Performed By: #### P T, PTT #### [facility] [address] [place] [address] Dr. Madisyn Bentley URINE T PROTEIN CREAT RATIOo n 11-25-2021 Protein (U) [Mass/Vol] 20.5 mg/dL Critically high <=12.0 [facility] Comment on above: Performed By: #### U RTPCR #### [facility] [address] [place] [address] Dr. Madisyn Bentley UR PROT CREAT RAT 0.25 Normal [facility] Comment on above: Performed By: #### U RTPCR #### [facility] [address] [place] [address] Dr. Madisyn Bentley URINE CREAT 81.12 mg/dL Normal 20.00-300.0 0 [facility] Comment on above: Performed By: #### U RTPCR #### [facility] [address] [place] [address] Dr. 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 CLIA Number: [id number] Normal [facility] Comment on above: Performed By: #### C #### See report for performing lab information. CNOVSPon 04-15-2018 CNOVSP Visit (SP) Office (HEMACL) -------TRISHA PARISH ([id number]) 1945 FDate Time Provider Department04/15/18 2:15 PM ROXANN ONEAL HEMACL During your visit today, we recorded the following information about you: Temperature Pulse Respiration Blood pressure 98.2 degrees 66/minute 16/minute 147/69 Weight Height 80.9 kg 1.626 mMINDY OLIVE ONEAL PA-C 04/15/2018 3:44 PM SignedPatient: Trisha Parish [facility] 1945 Attending Physician: Dr. Sadi Sotoate: April [...] of lymph node dissection. The tumor was ER/[place] positive,HER-2 positve. Ultimately the patient had to [...] lipoma removed, chronic kidney disease, strokeCurrent Outpatient Prescriptions:atorvastatin (LIPITOR) 80 mg tablet Take 80 mg [...] questions or concernsJORDON SHAY-CReferring Provider: SADI WALLACE [[id number]]Allergies As of Date: 04/15/2018(No Known Allergies)Date Reviewed: 04/15/2018Reviewed by: Roxann Oneal - Fully AssessedReason for Visit: Breast Cancer [519] Cmt: follow upPrimary Visit Diagnosis:Malignant neoplasm of left breast in female, estrogen receptor positive, unspecified site of breast (HCC) [C50.912, Z17.0]Order(s):[facility] [[id number]] Order #: [id number] FUTUREDisposition: Return in about 1 year (around [...] Status:Closed by ROXANN ONEAL on 04/15/18 Normal [facility] PROGRESSon 04-15-2018 Protein mass conc HNO ID: [id number] thor: Roxann Smtihervice: (none)Author Type: Physician AssistantType: Progress NotesFiled: 04/15/2018 3:44 PMNote Text:Patient: Trisha Parish [facility] 1945 Attending Physician: Dr. Sadi Sotoate: April [...] time of lymph node dissection. The tumor wasER/[place] positive, HER-2 positve. Ultimately the patient had to move forwardwith left mastectomy ? this was done in December 2008. A residual 3 mm tumorwas found. Further lymph node examination noted no further nodes.Ultimately her staging was T1c, N1mi. Her adjuvant therapy was Taxotere,carboplatin and Herceptin followed by Herceptin for one year completed inJune of 2009. Her adjuvant hormonal therapy was [...] lipoma removed, chronic kidney disease, strokeCurrent Outpatient Prescriptions:atorvastatin (LIPITOR) 80 mg tablet Take 80 mg [...] with questions or concernsROXANN ONEAL PA-C Normal [facility] MAMM OUTSIDE DICOM IMPORT -N BNRon 04-05-2018 MAMM OUTSIDE DICOM IMPORT -NBNR Images were obtained outside of [facility] [id number] Normal [facility] Vital Signs Date Time Vital Sign Value Performing Clinician Talia lagos 02-01-2024 10:13040 Body height 152.4 cm MD Sanya Tineo Work Phone: [facility] 02-01-2024 10:13040 Body mass index (BMI) [Ratio] 24 kg/m2 MD Sanya Tnieo Work Phone: [facility] 02-01-2024 10:13040 Body temperature 97.6 [degF] MD Sanya Tineo Work Phone: [facility] 02-01-2024 10:13040 Body weight 55.79 kg MD Sanya Tineo Work Phone: [facility] 02-01-2024 10:13040 Diastolic blood pressure 39 mm[Hg] MD Sanya Tineo Work Phone: [facility] 02-01-2024 10:13040 Heart rate 78 /min MD Sanya Tineo Work Phone: [facility] 02-01-2024 10:13-0400 Respiratory rate 20 /min MD Sanya Tineo Work Phone: [facility] 02-01-2024 10:13-0400 SaO2% (BldA) [Mass fraction] 98 % MD Sanya Tineo Work Phone: [facility] 02-01-2024 10:13-0400 Systolic blood pressure 80 mm[Hg] MD Sanya Tineo Work Phone: [facility] 01-28-2024 14:58-0400 Body height 152.4 cm MD Sanya Tineo Work Phone: [facility] 01-28-2024 14:58-0400 Body mass index (BMI) [Ratio] 24 kg/m2 MD Sanya Tineo Work Phone: [facility] 01-28-2024 14:58-0400 Body temperature 97.9 [degF] MD Sanya Tineo Work Phone: [facility] 01-28-2024 14:58-0400 Body weight 56 kg MD Sanya Tineo Work Phone: [facility] 01-28-2024 14:58-0400 Diastolic blood pressure 68 mm[Hg] MD Sanya Tineo Work Phone: [facility] 01-28-2024 14:58-0400 Heart rate 74 /min MD Sanya Tineo Work Phone: [facility] 01-28-2024 14:58-0400 Systolic blood pressure 116 mm[Hg] MD Sanya Tineo Work Phone: [facility] 01-17-2024 14:18-0400 Body temperature 97.8 [degF] MD Sanya Tineo Work Phone: [facility] 01-17-2024 14:18-0400 Body weight 56.69 kg MD Sanya Tineo Work Phone: [facility] 01-17-2024 14:18-0400 Diastolic blood pressure 61 mm[Hg] MD Sanya Tineo Work Phone: [facility] 01-17-2024 14:18-0400 Heart rate 73 /min MD Sanya Tineo Work Phone: [facility] 01-17-2024 14:18-0400 Respiratory rate 16 /min MD Sanya Tineo Work Phone: [facility] 01-17-2024 14:18-0400 SaO2% (BldA) [Mass fraction] 98 % MD Sanya Tineo Work Phone: [facility] 01-17-2024 14:18-0400 Systolic blood pressure 106 mm[Hg] MD Sanya Tineo Work Phone: [facility] 01-03-2024 12:55-0400 Body height 157.5 cm Edwardo Hanna MD Work Phone: [facility] 01-03-2024 12:55-0400 Body mass index (BMI) [Ratio] 23.3 kg/m2 Edwardo Hanna MD Work Phone: [facility] 01-03-2024 12:55-0400 Body temperature 97 [degF] Edwardo Hanna MD Work Phone: [facility] 01-03-2024 12:55-0400 Body weight 57.8 kg Edwardo Hanna MD Work Phone: [facility] 01-03-2024 12:55-0400 Diastolic blood pressure 46 mm[Hg] Edwardo Hanna MD Work Phone: [facility] 01-03-2024 12:55-0400 Heart rate 69 /min Edwardo Hanna MD Work Phone: [facility] 01-03-2024 12:55-0400 Respiratory rate 20 /min Edwardo Hanna MD Work Phone: [facility] 01-03-2024 12:55-0400 SaO2% (BldA) [Mass fraction] 99 % Edwardo Hanna MD Work Phone: [facility] 01-03-2024 12:55-0400 Systolic blood pressure 108 mm[Hg] Edwardo Hanna MD Work Phone: [facility] 12-20-2023 15:09-0400 Body temperature 98.4 [degF] Smooth Coelho MD Work Phone: [facility] 12-20-2023 15:09-0400 Diastolic blood pressure 78 mm[Hg] Smooth Coelho MD Work Phone: [facility] 12-20-2023 15:09-0400 Heart rate 73 /min Smooth Coelho MD Work Phone: [facility] 12-20-2023 15:09-0400 Respiratory rate 18 /min Smooth Coelho MD Work Phone: [facility] 12-20-2023 15:09-0400 SaO2% (BldA) [Mass fraction] 97 % Smooth Coelho MD Work Phone: [facility] 12-20-2023 15:09-0400 Systolic blood pressure 142 mm[Hg] Smooth Coelho MD Work Phone: [facility] 12-20-2023 11:15-0400 Body height 162.6 cm Smooth Coelho MD Work Phone: [facility] 12-20-2023 11:15-0400 Body mass index (BMI) [Ratio] 24.03 kg/m2 Smooth Coelho MD Work Phone: [facility] 12-20-2023 11:15040 Body weight 63.5 kg Smooth Coelho MD Work Phone: [facility] 12-05-2023 10:04040 Body height 153.67 cm MD Sanya Tineo Work Phone: [facility] 12-05-2023 10:04-0400 Body mass index (BMI) [Ratio] 25.8 kg/m2 MD Sanya Tineo Work Phone: [facility] 12-05-2023 10:04-0400 Body weight 61 kg MD Sanya Tineo Work Phone: [facility] 12-05-2023 10:04-0400 Diastolic blood pressure 54 mm[Hg] MD Sanya Tineo Work Phone: [facility] 12-05-2023 10:04-0400 Heart rate 69 /min MD Sanya Tineo Work Phone: [facility] 12-05-2023 10:04-0400 Systolic blood pressure 89 mm[Hg] MD Sanya Tineo Work Phone: [facility] 07-17-2023 11:00-0500 Body height 153.67 cm Sanya Tineo Other [facility] [employer] Other 07-17-2023 11:00-0500 Body mass index (BMI) [Ratio] 28.5 kg/m2 Sanya Tieno Other [facility] [employer] Other 07-17-2023 11:00-0500 Body weight 67.31 kg Sanya Tineo Other [employer] Other 07-17-2023 11:00-0500 Diastolic blood pressure 65 mm[Hg] Sanya Tineo Other [employer] Other 07-17-2023 11:00-0500 Systolic blood pressure 121 mm[Hg] Sanya Tineo Other [employer] Other 05-11-2023 11:30-0400 Body height 153.67 cm Sanya Tineo Other [employer] Other 05-11-2023 11:30-0400 Body mass index (BMI) [Ratio] 27.27 kg/m2 Sanya Tineo Other [employer] Other 05-11-2023 11:30-0400 Body weight 64.41 kg Sanya Tineo Other [employer] Other 05-11-2023 11:30-0400 Diastolic blood pressure 61 mm[Hg] Sanya Tineo Other [employer] Other 05-11-2023 11:30-0400 SaO2% (BldA) [Mass fraction] 97 % Sanya Tineo Other [employer] Other 05-11-2023 11:30-0400 Systolic blood pressure 107 mm[Hg] Sanya Tineo Other [employer] Other 04-17-2023 10:45-0400 Body height 153.67 cm Sanya Tineo Other [employer] Other 04-17-2023 10:45-0400 Body mass index (BMI) [Ratio] 27.89 kg/m2 Sanya Tineo Other [employer] Other 04-17-2023 10:45-0400 Body weight 65.86 kg Sanya Tineo Other [employer] Other 04-17-2023 10:45-0400 Diastolic blood pressure 72 mm[Hg] Sanya Tineo Other [employer] Other 04-17-2023 10:45-0400 Respiratory rate 12 /min Sanya Tineo Other [employer] Other 04-17-2023 10:45-0400 Systolic blood pressure 133 mm[Hg] Sanya Tineo Other [employer] Other 02-09-2023 11:00-0400 Body height 153.67 cm Sanya Tineo Other [employer] Other 02-09-2023 11:00-0400 Body mass index (BMI) [Ratio] 27.47 kg/m2 Sanya Tineo Other [employer] Other 02-09-2023 11:00-0400 Body weight 64.86 kg Sanya Tineo Other [employer] Other 02-09-2023 11:00-0400 Diastolic blood pressure 62 mm[Hg] Sanya Tineo Other [employer] Other 02-09-2023 11:00-0400 SaO2% (BldA) [Mass fraction] 98 % Sanya Tineo Other [employer] Other 02-09-2023 11:00-0400 Systolic blood pressure 125 mm[Hg] Sanya Tineo Other [employer] Other 09-08-2022 11:30-0500 Body height 153.67 cm Sanya Tineo Other [employer] Other 09-08-2022 11:30-0500 Body mass index (BMI) [Ratio] 29.77 kg/m2 Sanya Tineo Other [employer] Other 09-08-2022 11:30-0500 Body weight 70.31 kg Sanya Tineo Other [employer] Other 09-08-2022 11:30-0500 Diastolic blood pressure 58 mm[Hg] Sanya Tineo Other [employer] Other 09-08-2022 11:30-0500 SaO2% (BldA) [Mass fraction] 97 % Sanya Tineo Other [facility] [employer] Other 09-08-2022 11:30-0500 Systolic blood pressure 110 mm[Hg] Sanya Tineo Other [facility] [employer] Other Encounters Encounter Date Encounter Type Care Provider Facility Start: 02-01-2024 Registered Recurring MD Sanya Tineo Work Phone: [facility] Work Phone: Start: 02-01-2024 End: 02-01-2024 ambulatory MD Sanya Tieno Work Phone: [facility] Work Phone: Start: 02-01-2024 End: 02-01-2024 Patient encounter procedure MD Sanya Tineo Work Phone: [facility] Work Phone: Start: 01-28-2024 End: 01-28-2024 ambulatory MD Sanya Tineo Work Phone: [facility] Work Phone: Start: 01-28-2024 End: 01-28-2024 Patient encounter procedure MD Sanya Tineo Work Phone: [facility] Work Phone: Start: 01-17-2024 End: 01-17-2024 ambulatory MD Sanya Tineo Work Phone: [facility] Work Phone: Start: 01-17-2024 End: 01-17-2024 Patient encounter procedure MD Sanya Tineo Work Phone: [facility] Work Phone: Start: 01-17-2024 Registered Recurring MD Sanya Tineo Work Phone: [facility] Work Phone: Start: 01-14-2024 Non-patient / Non-visit MD Geno Tineo Work Phone: [facility] Work Phone: Start: 01-07-2024 End: 01-07-2024 Subsequent hospital visit by physician [facility] Comment on above: Cardiac pacemaker in situ; Atrioventricular block, second degree Start: 01-07-2024 End: 01-07-2024 ambulatory SHANON J MAURICIO [facility] Start: 01-03-2024 End: 01-03-2024 ambulatory SANYA TINEO [facility] Start: 01-03-2024 End: 01-03-2024 Office outpatient new 60 minutes Edwardo Hanna MD Work Phone: [facility] Comment on above: 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 (Multi) (Primary Dx); GI cancer (Multi); 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); Gastrointestinal complication of procedure Start: 01-03-2024 End: 01-03-20[facility] Start: 01-01-2024 Non-patient / Non-visit MD Geno Tineo Work Phone: [facility] Work Phone: Start: 12-20-2023 End: 12-21-2023 ambulatory [facility] Start: 12-20-2023 End: 12-20-2023 Subsequent hospital visit by physician Smooth Coelho MD Work Phone: [facility] Comment on above: Abdominal pain, unsp ecified abdominal location (Primary Dx); Abnormal CT scan; Elevated lipase Start: 12-06-2023 Non-patient / Non-visit MD Geno Tineo Work Phone: [facility] Work Phone: Start: 12-05-2023 End: 12-05-2023 Patient encounter procedure MD Sanya Tineo Work Phone: [facility] Work Phone: Start: 12-02-2023 Non-patient / Non-visit MD Geno Tineo Work Phone: [facility] [employer] Work Phone: Start: 11-30-2023 End: 11-30-2023 ambulatory [facility] Start: 10-19-2023 End: 10-19-2023 ambulatory DIRK CHINER Not Available Start: 10-03-2023 End: 10-03-2023 ambulatory JENNIFER H TIMMIS Not Available Start: 08-28-2023 End: 08-28-2023 ambulatory DIRK D CHRISTOPHEHLER Not Available Start: 08-28-2023 End: 08-28-2023 Patient encounter procedure Dirk Oneill DO Work Phone: [facility] Comment on above: 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) Start: 08-21-2023 End: 08-21-2023 ambulatory DIRK Ruelas CHRISTOPHELIUER Not Available Start: 07-24-2023 End: 07-24-2023 ambulatory JENNIFER H TIMMIS Not Available Start: 07-17-2023 End: 07-17-2023 ambulatory Sanya Tineo Other [facility] [employer] Other Start: 07-17-2023 Patient encounter procedure Sanya Tineo [facility] Start: 07-10-2023 End: 07-10-2023 ambulatory [facility] Start: 05-18-2023 End: 05-18-2023 ambulatory [facility] Start: 05-11-2023 End: 05-11-2023 ambulatory Sanya Tineo Other [facility] [employer] Other Start: 05-11-2023 Office outpatient vi sit 15 minutes Sanya Tineo [facility] Start: 05-09-2023 Telephone encounter Sanya Tineo [facility] Start: 05-09-2023 End: 05-10-2023 ambulatory MARGARET ALVAREZ [employer] Other Start: 05-08-2023 End: 05-08-2023 ambulatory Sanya Rivka Other [employer] Other Start: 05-08-2023 Telephone encounter Sanya Rivka [facility] Start: 04-17-2023 End: 04-17-2023 ambulatory Sanya Tineo Other [employer] Other Start: 04-17-2023 Office outpatient vi sit 15 minutes Sanya Tineo [facility] Start: 04-11-2023 End: 04-11-2023 ambulatory [facility] Start: 04-04-2023 Evaluation and manag ement of inpatient [facility] Start: 04-03-2023 End: 04-04-2023 Encounter for preprocedural cardiovascular examination [facility] Start: 04-03-2023 End: 04-04-2023 Evaluation and management of inpatient [facility] Start: 2023 End: 2023 ambulatory [facility] Start: 02-23-2023 End: 02-24-2023 ambulatory [facility] Start: 02-21-2023 End: 02-21-2023 [facility] Start: 02-17-2023 End: 02-20-2023 Evaluation and management of inpatient Mikel Mir Facility:[facility] Start: 02-09-2023 End: 02-09-2023 ambulatory Sanya Tineo Other [employer] Other Start: 02-09-2023 Office outpatient vi sit 25 minutes Sanya Tineo [facility] Start: 02-07-2023 Evaluation and manag ement of inpatient [facility] Start: 02-05-2023 Evaluation and manag ement of inpatient [facility] Start: 02-05-2023 Evaluation [facility] e[facility] Start: 02-05-2023 End: 02-07-2023 Evaluation and management of inpatient [facility] Start: 01-23-2023 End: 01-23[facility]20[facility] Start: 01-17-2023 End: 01-17-2023 ambulatory [facility] Start: 12-05-2022 End: 12-05-2022 ambulatory Sanya Tineo Other [employer] Other Start: 12-05-2022 Telephone encounter Sanya [facility] Start: 12-04-2022 End: 12-04-2022 ambulatory Sanya Tineo Other [employer] Other Start: 12-04-2022 Telephone encounter Sanya Tineo [facility] Start: 10-06-2022 End: 10-07-2022 ambulatory SHARITA AKDALTONA Facility:[facility]1 Start: 10-06-2022 Encounter for preprocedural cardiovascular examination [facility] Start: 09-12-[address] SANYA TINEO Facil ity:[facility]1 Start: 09-10-2022 End: 09-10-[address] MICHELE GOLDSMITH . Facility:[facility] Start: 09-08-2022 End: 09-08-2022 ambulatory Sanya Tineo Other [employer] Other Start: 09-08-2022 Office outpatient vi sit 25 minutes Sanya Tineo [facility] Start: 06-03-2022 End: 06-04-[address] SANYA TINEO Facility:[facility] Start: 05-23-2022 End: 05-24-2022 ambulatory DIAMOND HILARIO Facility:[facility] Start: 05-16-2022 End: 05-17-[address] SANYA TINEO Facility:[facility] Start: 04-07-2022 End: 04-08-2022 ambulatory SHARITA AKKINA Facility:[facility] Start: 11-25-2021 End: 11-26-2021 ambulatory SHARITA AKKINA Facility:[facility] Start: 07-08-2018 End: 07-09-2018 Patient encounter procedure DEFAULT PHYSICIAN Facility:[facility] Start: 04-15-2018 End: 04-16-2018 Patient encounter SADI WALLACE [facility] Procedures Date Procedure Procedure Detail Performing Clinician Start: 01-30-2024 Positron emission tomography with computed tomography MD Sanya Tineo Work Phone: Start: 01-07-2024 Program eval implantable in persn dual ld pacer Shanon Martínez MD Work Phone: Start: 01-01-2024 Carcinoembryonic antigen cea MD Sanya wadsworth Work Phone: Comment on above: Nonsmokers <3.9 Smokers <5.6Roche [employer] st[employer] Electrochemiluminescence Immunoassay(ECLIA)Values obtained with different assay methods or kitscannot be used interchangeably. Results cannot beinterpreted as absolute evidence of the presence orabsence of malignant disease. Start: 12-20-2023 DISCHARGE PATIENT [facility] Start: 12-20-2023 ENDOSCOPIC ULTRASOUND (UPPER) FANICHO CATRACHITA RY Start: 12-20-2023 Esophagogastroduodenoscopy [facility] Start: 12-20-2023 CYTOLOGY CONSULTATION (NON-GYNECOLOGIC) [facility] Start: 12-20-2023 SURGICAL PATHOLOGY EXAM [facility] Start: 12-20-2023 Egd intrmural needle aspir/biop altered anatomy Smooth Coelho MD Work Phone: Start: 12-20-2023 Glucose [Mass/volume] in Serum or Plasma [facility] Start: 12-20-2023 PLACE IN OUTPATIENT/HOSPITAL AMBULATORY SURGERY [facility] Start: 12-20-2023 PULSE OXIMETRY, SPOT [facility] Start: 12-20-2023 Glucose quantitative blood xcpt reagent strip Smooth Coelho MD Work Phone: Start: 12-20-2023 PULSE OXIMETRY, SPOT Smooth Coelho MD Work Phone: Start: 01-23-2024 Intravitreal njx pharmacologic agt spx Dirk D Zahler DO Work Phone: Start: 02-06-2023 End: 07-19-2023 History of coronary artery bypass grafting Hx of CABG Dirk Oneill DO Work Phone: Start: 01-23-2023 Follow-up visit Follow-up MANDI SOTO Plan of Treatment Date Care Activity Detail Author Start: 12-19-2024 Diabetes mellitus screening Diabetes Screening [facility] Start: 01-17-2024 Patient referral [facility] Work Phone: Start: 01-07-2024 End: 01-07-2024 Patient encounter procedure 01/07/2024 1:20 PM EDT Appointment [place] [address] [place] [facility] [place] [address] [facility] Start: 01-03-2024 End: 01-02-2025 Guardant 360; Other-indicate in comment; Guardant - Miscellaneous Test [facility] Service Area Work Phone: Comment on above: Expected: 01/03/2024 (Approximate), Expi res: 01/02/2025 Start: 01-03-2024 End: 01-02-2025 Research Collection: 10mL Red Clot Activator - Clinical Collect [facility] Work Phone: Comment on above: Expected: 01/03/2024 (Approximate), Expi res: 01/02/2025 Start: 10-28-2023 COVID-19 Vaccine ( season) COVID-19 Vaccine () [facility] Start: 10-03-2023 End: 10-03-2023 Patient encounter procedure 10/03/2023 11:10 AM EST Office Visit [facility] [address] [facility] [address] [place] [id number] Jennifer Morales MD [address] [facility] [address] [place] [address] [facility] Start: 06-01-2021 Pneumococcal Vaccine: 65+ Years (2 - PPSV23 or PCV20) Pneumococcal Vaccine: 65+ Years (2 - PPSV23 or PCV20) [facility] Start: 06-01-2021 Pneumococcal Vaccine: 65+ Years (2 of 2 - PPSV23 or PCV20) Pneumococcal Vaccine: 65+ Years (2 of 2 - PPSV23 or PCV20) [facility] Start: 1995 Zoster Vaccines (1 of 2) Zoster Vaccines (1 of 2) [facility] Start: 1967 DTaP/Tdap/Td Vaccines (1 - Tdap) DTaP/Tdap/Td Vaccines (1 - Tdap) [facility] Start: 1963 Hepatitis C screening Hepatitis C Screening [facility] Start: 1945 Lipid panel Lipid Panel [facility] Start: 1945 Medicare Annual Wellness Visit Medicare Annual Wellness Visit (AWV) [facility] Start: 1945 Screening for osteoporosis Bone Density Scan [facility] End: 12-20-2023 Cancer Ag 19-9 [Units/volume] in Serum or Plasma Cancer Antigen 19-9 Lab Routine Once (Lab) for 1 Occurrences starting 12/20/2023 until 12/20/2023 [facility] Work Phone: Comment on above: Once (Lab) for 1 Occurrences starting until 12/20/2023 End: 12-20-2023 Carcinoembryonic Ag [Mass/volume] in Serum or Plasma Carcinoembryonic Antigen Lab Routine Once (Lab) for 1 Occurrences starting 12/20/2023 until 12/20/2023 [facility] Work Phone: Comment on above: Once (Lab) for 1 Occurrences starting until 12/20/2023 End: 12-20-2023 CBC panel - Blood by Automated count CBC Lab Routine Once (Lab) for 1 Occurrences starting 12/20/2023 until 12/20/2023 [facility] Work Phone: Comment on above: Once (Lab) for 1 Occurrences starting until 12/20/2023 End: 12-20-2023 Comprehensive metabolic 2000 panel - Serum or Plasma Comprehensive metabolic panel Lab Routine Once (Lab) for 1 Occurrences starting 12/20/2023 until 12/20/2023 [facility] Work Phone: Comment on above: Once (Lab) for 1 Occurrences starting until 12/20/2023 Comprehensive metabo lic 2000 panel - Serum or Plasma [facility] End: 12-20-[address] [facility] Service Area Work Phone: Comment on above: Once for 1 Occurrences starting 12/20/19 until 12/20/2023 Magnetic resonance cholangiopancreatography [facility] End: 12-20-2023 Moderate Sedation Moderate Sedation Procedures Routine Once for 1 Occurrences starting 12/20/2023 until 12/20/2023 [facility] Work Phone: Comment on above: Once for 1 Occurrences starting 12/20/19 until 12/20/2023 Non-gynecological cy tology method study [facility] Work Phone: Comment on above: Release Upon Ordering for 1 Occurrences starting 12/20/2023, 1 completed Patient referral [facility] Work Phone: Surgical pathology study [facility] Work Phone: Comment on above: Release Upon Ordering for 1 Occurrences starting 12/20/2023, 1 completed End: 01-07-2024 XR Chest 2 Views [facility] Work Phone: Comment on above: Once for 1 Occurrences starting 01/07/20 until 01/07/2024 [facility] Immunizations Immunization Date Immunization Notes Care Provider Fa cility 06-28-2022 COVID-19 Pfizer (Pediatric) Sanya Tineo Other [facility] 06-16-2022 influenza virus vaccine, split virus (incl. purified surface antigen) Sanya Tineo Other [employer] Other 06-16-2022 influenza virus vaccine, unspecified formulation MD Sanya Tineo Work Phone: [facility] 09-03-2020 COVID-19 Vaccine Moderna - Documentation Purposes Only Sanay Tineo Other [facility] 04-26-2020 influenza virus vaccine, split virus (incl. purified surface antigen) Sanya Tineo Other [facility] [employer] Other 04-26-2020 influenza virus vaccine, unspecified formulation MD Sanya Tineo Work Phone: [facility] 06-20-2015 influenza virus vaccine, split virus (incl. purified surface antigen) Sanya Tineo Other [employer] Other 06-20-2015 influenza virus vaccine, unspecified formulation MD Sanya Tineo Work Phone: [facility] 06-01-2015 pneumococcal conjuga te vaccine, 13 valent Sanya Tineo Other [facility] Payers Date Payer Category Payer Medicare [id number] 2023 Self-pay 2017 Medicare [id number] 1959 Medicare [id number] 2. [id number] 1945 Unknown [id number] 2.16.8 40.1.900223.3.579.2.647 1945 Unknown [id number] 2.16.84 0.1.022880.3.579.2.593 1945 Unknown [id number] 2.16.84 0.1.974686.3.579.2.593 1945 Unknown [id number] 2.16.84 0.1.738578.3.579.2.593 1945 Unknown [id number] 2.16.84 0.1.850559.3.579.2.593 1945 Unknown [id number] 2.16.84 0.1.229564.3.579.2.593 1945 Unknown [id number] 2.16.84 0.1.866310.3.579.2.593 1945 Unknown [id number] 2.16.84 0.1.433033.3.579.2.593 1945 Unknown [id number] 2.16.84 0.1.990596.3.579.2.593 1945 Unknown [id number] 2.16.84 0.1.168236.3.579.2.1259 1945 Unknown [id number] 2.16.84 0.1.887760.3.579.2.1259 1945 Unknown [id number] 2.16.84 0.1.597999.3.579.2.1259 1945 Unknown [id number] 2.16.84 0.1.071327.3.579.2.1259 1945 Unknown [id number] 2.16.840 .1.643195.3.579.2.1259 1945 Unknown [id number] 2.16.8 40.1.654948.3.579.2.1243 1945 Unknown [id number] 2.16.84 0.1.127730.3.579.2.1246 1945 Unknown [id number] 2.16.84 0.1.967415.3.579.2.1246 1945 Unknown [id number] 2.16.8 40.1.561433.3.579.2.1245 1945 Unknown [id number] 2.16.8 40.1.554907.3.579.2.1245 Unknown Unknown [id number] 2.16.8 40.1.409159.3.579.2.531 Unknown [id number] 2.16.8 40.1.468548.3.579.2.531 Social History Date Type Detail Facility Unknown if ever smoked [facility] [employer] Other Start: 07-24-2023 End: 01-03-2024 Sex Assigned At [employer] Other Start: 07-24-2023 End: 01-17-2024 Tobacco smoking status NHIS Never smoked tobacco [facility] Start: 07-24-2023 End: 12-20-2023 Tobacco use and exposure Smokeless tobacco non-user [facility] Start: 08-28-2023 Alcohol intake Ex-drinker (finding) [facility] Start: 07-24-2023 End: 01-03-2024 History of Social function [facility] Start: 1945 Sex Assigned At Not on file [facility] Start: 12-20-2023 End: 01-03-2024 Alcoholic beverage intake Lifetime non-drinker (finding) [facility] Work Phone: Start: 12-20-2023 Sexual orientation Heterosexual (finding) [facility] Work Phone: Start: 12-10-2023 End: 01-07-2024 Exposure to SARS-CoV-2 (event) Not sure [facility] Work Phone: Start: 1945 Sex Assigned At Female [facility] Clinical Notes 06-21-2021 to 01-03-2024 Edwardo Hanna MD - 01/03/2024 1:00 PM EDTDischarge InstructionsPre-Sedation Documentation - Smooth Coelho MD - 12/20/2023 12:10 PM Radha Oneill DO - 08/28/2023 2:30 PM EST Note Date & Type Note Facility 01-03-2024 History of Present illness Narrative Patient ID: Trisha Parish is a 78 y.o. female. Diagnoses: gastric adenocarcinoma pending staging Genomic profile: MMR, HER 2 pending Assessment and Plan: Trisha Parish is 78 yo with extensive cardiac history who is recently diagnosed with gastric cancer pending staging. Follow up plan- - Referral placed to Keyla Lua MD at [facility] - Labs today including CBC, CMP, CEA, CA 19-9, lipase, amylase, [id number] I have placed all orders as outlined above. I advised the patient to schedule the tests and follow-up appointment as discussed by contacting the computer processing scheduler on the way out or calling by phone. Providers: Surgeon: - MedOnc: to be decided RadOnc: - HPI: ONCOLOGIC HISTORY- Trisha Parish is 78 yo with extensive cardiac history (CAD s/p CABG, AF s/p MAZE, PARISH ligation, aortic stenosis s/p TAVR, second degree AVB s/p PM), hx of stroke from Afib, hx of breast cancer in 2008 s/p L mastectomy with chemo and anti E who is recently diagnosed with gastric adenocarcinoma. She had 1 episode of melena at the end of November [address] AP and RUQ USG were completed and showed possible pancreatitis. Eventually patient was referred to GI at [facility] s/p EGD 12/20/23 that revealed gastric mass in lesser curve of stomach extending into adventitia. MRI abdomen was ordered by GI; however due to her pacemaker it was not completed yet. Today she presented with her . She reports 50 Ib weight loss for the past year but she thinks it's likely due to her heart issues last year. Denies having any more melena. Has a good appetite but hesitates to eat due to her diabetes. Reports mild epigastric discomfort with food intake. Also reports intermittent back pain. Continues to perform all her ADLs. Does not use any ambulatory tool. Continues to be physically active. Past Medical History: Past Medical History: No date: Anemia No date: Anxiety No date: Arrhythmia No date: CKD (chronic kidney disease) No date: GERD (gastroesophageal reflux disease) No date: Hyperlipidemia No date: Hypertension No date: Myocardial infarction (Multi) No date: Pacemaker No date: PONV (postoperative nausea and vomiting) Surgical History: As HPI Family History: Half brother- CRC Half brother- heme malignacy Family Oncology History: Cancer-related family history is not on file. 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 Allergies Allergies Allergen Reactions Demerol [Meperidine] Psychosis Medications Current Outpatient Medications Medication Instructions ALPRAZolam (XANAX) 0.25 mg, oral, Nightly PRN atorvastatin (LIPITOR) 80 mg, oral, Daily carvedilol (COREG) 25 mg, oral, 2 times daily (morning and late afternoon) clopidogrel (PLAVIX) 75 mg, oral, Daily hydrALAZINE (APRESOLINE) 25 mg, oral, 2 times daily NIFEdipine ER (ADALAT CC) 60 mg, oral, Daily before breakfast, Do not crush, chew, or split. Objective VS: BP (!) 108/46 (BP Location: Right arm, Patient Position: Sitting, BP Cuff Size: Adult) Pulse 69 Temp 36.1 C (97 F) (Temporal) Resp 20 Ht (S) 1.575 m (5' 2.01 ) Wt 57.8 kg (127 lb 6.8 oz) SpO2 99% BMI 23.30 kg/m Weight: Vitals: 01/03/24 1255 Weight: 57.8 kg (127 lb 6.8 oz) PHYSICAL EXAMINATION ECOG performance status- VS: BP (!) 108/46 (BP Location: Right arm, Patient Position: Sitting, BP Cuff Size: Adult) Pulse 69 Temp 36.1 C (97 F) (Temporal) Resp 20 Ht (S) 1.575 m (5' 2.01 ) Wt 57.8 kg (127 lb 6.8 oz) SpO2 99% BMI 23.30 kg/m Weight: Vitals: 01/03/24 1255 Weight: 57.8 kg (127 lb 6.8 oz) BSA: 1.59 meters squared Constitutional: Awake/alert/oriented x3, cooperative and answers questions appropriately. Eyes: No pallor, conjunctival injection, clear sclera. Mouth: No ulceration. No thrush. Musculoskeletal: No joint swelling, redness. Extremities: normal extremities, no cyanosis edema, contusions or wounds, no clubbing. Skin: Warm and dry, no lesions, no rashes. Labs: being completed today including Guardant Image CT AP without contrast completed at [facility] Seen and discussed with Dr. Hanna. Arabella Draper MD Hem Onc, PGY-5 documented in this encounter [facility] Work Phone: 12-20-2023 Hospital Discharge instructions Smooth Coelho MD - 12/20/2023 1:54 PM EDT Patient Instructions after an endoscopy or colonoscopy The anesthetics, sedatives or narcotics which were given to you today will be acting in your body for the next 24 hours, so you might feel a little sleepy or groggy. This feeling should slowly wear off. Carefully read and follow the instructions. You received sedation today: - Do not drive or operate any machinery or power tools of any kind. - No alcoholic beverages today, not even beer or wine. - Do not make any important decisions or sign any legal documents. - No over the counter medications that contain alcohol or that may cause drowsiness. - Do not make any important decisions or sign any legal documents. While it is common to experience mild to moderate abdominal distention, gas, or belching after your procedure, if any of these symptoms occur following discharge from the GI Lab or within one week of having your procedure, call the [facility] to be advised whether a visit to your nearest Urgent Care or Emergency Department is indicated. Take this paper with you if you go. - If you develop an allergic reaction to the medications that were given during your procedure such as difficulty breathing, rash, hives, severe nausea, vomiting or lightheadedness.- If you experience chest pain, shortness of breath, severe abdominal pain, fevers and chills. -If you develop signs and symptoms of bleeding such as blood in your spit, if your stools turn black, tarry, or bloody - If you have not urinated within 8 hours following your procedure.- If your IV site becomes painful, red, inflamed, or looks infected. documented in this encounter [facility] Work Phone: 12-20-2023 Miscellaneous Notes Patient: Trisha Parish Pre-sedation Evaluation: Sedation necessary for: Immobility and Analgesia Requesting service: GI SERVICE History of Present Illness: ACUTE PANCREATITIS, ELEVATED LFTS No past medical history on file. Principle problems: There are no problems to display for this patient. Allergies: Allergies Allergen Reactions Demerol [Meperidine] Psychosis JOURNEYMAN GLAZIER/Current Medications: (Not in a hospital admission) Current Outpatient Medications Medication Sig Dispense Refill atorvastatin (Lipitor) 80 mg tablet Take 1 tablet (80 mg) by mouth once daily. carvedilol (Coreg) 25 mg tablet Take 1 tablet (25 mg) by mouth 2 times daily (morning and late afternoon). clopidogrel (Plavix) 75 mg tablet Take 1 tablet (75 mg) by mouth once daily. hydrALAZINE (Apresoline) 25 mg tablet Take 1 tablet (25 mg) by mouth 2 times a day. NIFEdipine ER (Adalat CC) 60 mg 24 hr tablet Take 1 tablet (60 mg) by mouth once daily in the morning. Take before meals. Do not crush, chew, or split. ALPRAZolam (Xanax) 0.25 mg tablet Take 1 tablet (0.25 mg) by mouth as needed at bedtime for anxiety. Current Facility-Administered Medications Medication Dose Route Frequency Provider Last Rate Last Admin lactated Ringer's infusion 20 mL/hr intravenous Continuous Smooth Coelho MD Past Surgical History: has no past surgical history on file. Recent sedation/surgery (24 hours) No Review of Systems: Please check all that apply: No significant medical history test completed prior to procedure on any menstruating female: none NPO guidelines met: Yes Physical Exam Airway Mallampati: II Cardiovascular - normal exam Rhythm: regular Rate: normal Dental Pulmonary - normal exam Breath sounds clear to auscultation Plan ASA 3 Moderate documented in this encounter [facility] Work Phone: 12-20-2023 Note Formatting of this n ote is different from the original. Patient: Trisha Parish Pre-sedation Evaluation: Sedation necessary for: Immobility and Analgesia Requesting service: GI SERVICE History of Present Illness: ACUTE PANCREATITIS, ELEVATED LFTS No past medical history on file. Principle problems: There are no problems to display for this patient. Allergies: Allergies Allergen Reactions Demerol [Meperidine] Psychosis JOURNEYMAN GLAZIER/Current Medications: (Not in a hospital admission) Current Outpatient Medications Medication Sig Dispense Refill atorvastatin (Lipitor) 80 mg tablet Take 1 tablet (80 mg) by mouth once daily. carvedilol (Coreg) 25 mg tablet Take 1 tablet (25 mg) by mouth 2 times daily (morning and late afternoon). clopidogrel (Plavix) 75 mg tablet Take 1 tablet (75 mg) by mouth once daily. hydrALAZINE (Apresoline) 25 mg tablet Take 1 tablet (25 mg) by mouth 2 times a day. NIFEdipine ER (Adalat CC) 60 mg 24 hr tablet Take 1 tablet (60 mg) by mouth once daily in the morning. Take before meals. Do not crush, chew, or split. ALPRAZolam (Xanax) 0.25 mg tablet Take 1 tablet (0.25 mg) by mouth as needed at bedtime for anxiety. Current Facility-Administered Medications Medication Dose Route Frequency Provider Last Rate Last Admin lactated Ringer's infusion 20 mL/hr intravenous Continuous Smooth Coelho MD Past Surgical History: has no past surgical history on file. Recent sedation/surgery (24 hours) No Review of Systems: Please check all that apply: No significant medical history test completed prior to procedure on any menstruating female: none NPO guidelines met: Yes Physical Exam Airway Mallampati: II Cardiovascular - normal exam Rhythm: regular Rate: normal Dental Pulmonary - normal exam Breath sounds clear to auscultation Plan ASA 3 [facility] Work Phone: 11-30-2023 Note [place] [facility] Subjective Trisha Parish is a 78 [...] In September 2022 she was admitted to [facility] with weakness. She was found to [...] presented to the emergency room at the [facility] with dizziness and low blood pressure. She [...] No swelling. Cervi (more content not included)... [facility] 08-28-2023 Note Time Out 08/28/2023. 2:47 PM. Confirmed correct patient, procedure, site, and patient consented. Anesthesia Topical anesthesia was used. Anesthetic medications included Lidocaine 2%, Proparacaine 0.5%. Procedure Preparation included 5% betadine to ocular surface, eyelid speculum. Injection: 1.25 mg bevacizumab 100 MG/4ML Route: Intravitreal, Site: Left Eye [facility]: 57593-647-85, Lot: [id number], Expiration date: 10/24/2023, Waste: 0 mL Post-op [...] increased pain, redness, decreased vision or concerns. [facility] 08-28-2023 History of Present illness Narrative Images [...] MG/4ML Route: Intravitreal, Site: Left Eye [facility]: [id number], Lot: [id number], Expiration date: 10/24/2023, Waste: 0 mL Post-op [...] vision or concerns. documented in this encounter [facility] 07-17-2023 Evaluation note Encounter Date Diagnosis [...] Z85.3) Handwrote rx for prothesis bra #3 [employer] Other 10-13-2023 [place] Cardiology - [facility] Subjective Trisha Parish is a 78 [...] (non-ST elevated myocardial infarction) ([facility]) Hx of CABG Severe aortic [...] In September 2022 she was admitted to [facility] with weakness. She was found to [...] presented to the emergency room at the [facility] with dizziness and low blood pressure. She [...] and dry. Neurological: General (more content not included)...[facility] 05-11-2023 Evaluation note* Encounter Date Diagnosis Assessment Notes Treatment Notes Treatment Clinical Notes May, Bronchitis (ICD-10 - J40) Complete course of antibiotics. Discussed steroids for dyspnea. was recently ill as well. ER if symptoms worsen or fevers begin over weekend. [employer] Other 10-03-2023 Evaluation note* Encounter Date Diagnosis Assessment Notes Treatment Notes Treatment Clinical Notes May, Cough, unspecified type (ICD-10 - R05.9) [employer] Other 09-12-2023 Evaluation note* Encounter Date Diagnosis Assessment Notes Treatment Notes Treatment Clinical Notes Apr, Other specified postprocedural states (ICD-10 - Z98.890) s/p Aortic valve repair - doing very well. Energy is improving. 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 She was found to [...] presented to the emergency room at the [facility] with dizziness and low blood pressure. She [...] Behavior: Behavior is cooperati (more content not included)...[facility] NoteSubjective Patient lying in bed without complaints. Denies chest pain or palpitations. V pacing on ECG monitor. Denies shortness of breath. No supplemental oxygen requirements. Denies numbness, tingling, and weakness to bilateral upper and lower extremities. Afebrile. Objective Patient Vitals for the past 24 hrs: BP Temp Temp src Pulse Resp SpO2 Height Weight 04/04/23 1337 151/58 36.4 ???C (97.5 ???F) [facility] 60 12 -- 1.626 m (5' [...] CT surgery standpoint. Medical management per cardiology team.[facility]08-30-2023 Note04/04/23 1035 Admission Assessment Questions Verify [...] Discharge? Yes Does the patient have a keycase assembler assigned to them through their insurance? No Living Arrangement (Current/Prior to Hospitalization) Private residence (3 steps to enter) Does the patient have history of HHC or SNF? Yes (Hx of rehab placement in [place]) Assistive Device Grab bars Patient's goal for [...] link and activate MyChart? MyChart already active [facility]08-29-2023 NoteIndications; Mrs. Robbins is a 78-year-old [...] the right common femoral Utilizing 2 6 [place] ProGlide devices 6. Angio-Seal vascular closure in the right femoral, artery Inspector Aligning; interventional labeling machine operator; Toño Balbuena MD Cardiac surgery labeling machine operator; Lina Lamas MD ; tool grinder operator surface Herve Mayorga MD ; Methods; Procedure was explained to the patient with risks and benefits. She signed informed consent. She was brought to the [facility] in a fasting state. The procedure was performed the [facility] under conscious sedation. Both groin areas were prepped and draped in usual fashion. Micropuncture technique and ultrasound guidance was used to access the right common femoral artery and inner cannula angiography was performed following by upsizing to a 6 [place]an by 11 cm sheath. The same was done for for access in the left common femoral artery. Ultrasound guidance was used for micropuncture access in left common femoral vein and 6 [place] by 11 cm introducer sheath was secured in place. This time we proceeded with preclosure in the right common femoral artery using 2 crossing perclosure devices and the access was then upsized over wire to the 10 [place]an sheath. Heparin was given intravenously and therapeutic ACT was confirmed during the rest of the procedure and additional heparin was given as needed. A 5 [place]an balloontipped pacemaker wire was advanced through the femoral sheath into the right ventricular apex and adequate capture was confirmed. Right common femoral artery was accessed and upsized over an Amplatz extra-stiff wire to the 14 [place] Medtronic sheath. Through the left common femoral sheath an angled 6 [place]an pigtail catheter was then advanced to the ascending aorta into the 9 coronary cusp. Aortic root angiography was performed and the cause overlap view as determined by prior CT scan measurements. A 6 [place]an AL diagnostic catheter was advanced via the right femoral sheath and using a stiff Glidewire the aortic valve was crossed and the catheter was advanced into the left ventricular cavity and using exchange length J-wire a 6 [place] angled pigtail catheter was advanced to make [...] valve over the wire across the aortic emmonak aortic valve and under pacing at 120 [...] and removed outside the body. The 14 [place]an access sheath was placed across the right femoral and 6 [place] angled pigtail catheter was advanced across the [...] previous placed per (more content not included)... [facility]08-29-2023 NotePatient: Trisha Parish Procedure Information Date/Time: 04/03/23 1100 Procedure: TAVR Location: [facility] 3 / [facility] (Cath) Providers: Toño [...] to blood products. [facility] Note [place] [facility] - [facility] Subjective Trisha Parish is a 78 [...] (CMS/HCC) Pre-operative cardiovascular examination, recent myocardial infarction ([facility]) Cardiac pacemaker in situ Postural dizziness with presyncope NSTEMI (non-ST elevated myocardial infarction) ([facility]) Hx of CABG Severe aortic stenosis No [...] In September 2022 she was admitted to [facility] with weakness. She was found to [...] , Rfl: carvedilol (Co (more content not included)...[facility] 02-21-2023 NoteCardiology Clinic Note Subjective Trisha [...] artery stenosis Cerebrovascular accident ([facility]/HCC) Coronary arteriosclerosis Essential hypertension Hypertensive disorder Hyperparathyroidism due to renal insufficiency ([facility]/HCC) Breast CA ([facility]) Malignant neoplasm of female breast ([facility]) Proteinuria Stage 3 chronic kidney disease ([facility]/HCC) Stage 4 chronic kidney disease ([facility]/HCC) Type 2 diabetes mellitus ([facility]) Vitamin D deficiency 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 Social History Tobacco Use Smoking status: Never Smokeless tobacco: Never Substance Use Topics Alcohol use: Never Drug use: Never Update: 02/21/2023 She was hospitalized at [facility] for 3 days after presenting with dizziness [...] other elevated She was hospitalized 02/04-02/07/23 at [facility] and underwent coronary angiography and right [...] Disp: 30 tablet, Rfl: 0 sennosides-docusate sodium (Latisha-Colace) 8.6-50 mg tablet, Take 1 tablet by [...] Date WBC 6.44 02/06 (more content not included)...[facility] 02-09-2023 Evaluation note* Encounter Date Diagnosis Assessment Notes Treatment Notes Treatment Clinical Notes Feb, Nonrheumatic aortic valve stenosis (ICD-10 - I35.0) Discussed followup testing and likely procedure coming up at [facility] at length w pt and Feb, Chronic kidney disease, stage 3 unspecified (ICD-10 - N18.30) Reviewed labs - condition stable Feb, CAD in [place] artery (ICD-10 - I25.10) Further f/u w [facility] Cardiology Feb, Essential hypertension (ICD-10 - I10) Improved on present meds. [facility] Other 07-05-2023 NotePhysical Therapy Physical Therapy Evaluation [...] in front. During session, patient confided in sql report writer that they felt as though their balance had decreased during this admission and that they were worried about walking due to occasional and unpredictable losses of balance. Patient reported that they thought it could be related to neuropathy at their feet, but were unsure. Patient told sql report writer that they wished to address loss of balance issues sooner rather than later and they felt less confident walking. Patient Active Problem List Diagnosis Heart block Acute renal failure syndrome ([facility]/HCC) Anemia Atrial fibrillation ([facility]/HCC) Benign hypertensive renal disease Carotid artery stenosis Cerebrovascular accident ([facility]/HCC) Coronary arteriosclerosis Essential hypertension Hypertensive disorder Hyperparathyroidism due to renal insufficiency (CMS/HCC) Breast CA ([facility]) Malignant neoplasm of female breast ([facility]) Proteinuria Stage 3 chronic kidney disease ([facility]/HCC) Stage 4 chronic kidney disease ([facility]/HCC) Type 2 diabetes mellitus ([facility]) Vitamin D deficiency 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 ([facility]/HCC) Pre-operative cardiovascular examination, recent myocardial infarction ([facility]) Cardiac pacemaker in situ Postural dizziness with presyncope NSTEMI (non-ST elevated myocardial infarction) ([facility]) Hx of CABG Severe aortic stenosis Past Medical History: Diagnosis Date A-fib ([facility]) Cancer ([facility] Coronary artery disease Hypertension Myocardial infarct ([facility]) Stroke ([facility]) Past Surgical History: Procedure Laterality Date BREAST [...] Level of Function Prior Function Level of [place]: Independent with ADLs and functional transfers Prior [...] Standing Balance Dynamic Darwin (more content not included)...[facility] 02-07-2023 NoteHospital Medicine Discharge Summary Final [...] sodium 8.6-50 mg tablet Commonly known as: Latisha-Colace STOP taking these medications calcitriol 0.25 mcg capsule Commonly known as: Rocaltrol Where to Get Your Medications These medications were sent to [facility] - [place], [place] - [address], [facility] [address] lisinopril 40 mg tablet NIFEdipine CC 60 [...] Normal activity as tolerate (more content not included)...[facility]07-04-2023 NoteHospital Medicine Daily Progress Note - 02/06/2023 1:29 PM; Room: [facility]3122-01 Admission: 02/04/2023 10:47 PM; Length of stay: 2 days THE HOSPITALIST TEAM PREFERS TO USE [employer] CHAT FOR COMMUNICATION 7AM-7PM. IF I DO NOT RESPOND WITHIN 15 MINUTES, PLEASE PAGE ME/CALL THROUGH THE INSECTICIDE MIXER. FROM 7PM-7AM, PLEASE PAGE [phone](COVR) Code Status: Full Code Discharge Destination: home [...] Cardiac pacemaker in situ Anemia Atrial fibrillation ([facility]) Carotid artery stenosis Essential hypertension Hypertensive disorder Breast CA ([facility]) Type 2 diabetes mellitus ([facility]) Vitamin D deficiency Postural dizziness with presyncope Hx of CABG NSTEMI (non-ST elevated myocardial infarction) ([facility]) Assessment and Plan #Near-syncope #NSTEMI type I versus type II #History of atrial fibrillation s/p cryo maze and left atrial appendage clipping. #Coronary artery disease s/p CABG in 2015 #Primary hypertension #History of second-degreeAV block s/p [...] Results Component Value D (more content not included)...[facility]07-04-2023 Note Attestation signed by Matilda Valentin [...] Value Ventricular Rate 72 Atrial Rate 72 [place] Interval 162 QRS DURATION 150 QT Interval 464 QTC CALCULATION(BAZETT) 508 P Peebles 70 R-Peebles -40 T Wave Peebles 103 Impression Atrial-sensed ventricular-paced rhythm Abnormal ECG When compared with ECG of 10-SEP-2022 13:04, Electronic ventricular pacemaker has replaced Sinus rhythm Confirmed by Cheryl VALENTIN, MATILDA Robles ([id number]) on 02/05/2023 8:39:37 AM Lab Results Component Value Date TROPONINI 0.25 (HH) 02/05/2023 Complete Echo (TTE) w/wo Imaging Agent, Strain, 3D, Bubble Study Result Date: 02/05/2023 1 1 [facility] Heart Station [address] [place] [address] [phone] (fax) Echocardiogram-[facility] Name: TRISHA PARISH Study Date: 02/05/2023 09:59 AM B/P: 136 mmHg/65 mmHg HR: 61 bpm Date of : 1945 Location: [facility] Height: 63 in. Age: 77 year(s) [...] cm?? Aortic Va (more content not included)... [facility]07-04-2023 NoteCTA CHEST W AND/OR WO IV [...] 3 cusped view, anterior view and no BUSINESS ANALYTICS MANAGER-CAU view are obtained in 3-D volume [...] diameter of 23 mm. Electronically signed: Fely Carrington.[facility] Comment on above:Order Comment: TAVR [id number] NoteCTA ABDOMEN PELVIS W AND/OR WO IV [...] spondylosis and levoconvex scoliosis. Electronically signed: Fely Carrington.[facility] 02-05-2023 NotePatient: Trisha Parish Procedure Information Date/Time: 02/05/23 1800 Procedures: Coronary angiography Right heart cath Valve assessment - Aortic valve Location: [facility] [facility] [facility] / [facility] (Cath) Providers: Herve Mayorga MD Clinical information reviewed: Allergies Meds Physical Exam Airway Mallampati: III Cardiovascular Rhythm: regular Dental Pulmonary Abdominal Anesthesia Plan ASA 3 other (Conscious sedation ) intravenous induction Anesthetic plan and risks discussed with patient. Use of blood products discussed with patient who. Additional [facility]sWay[facility]07-[facility]-2023 Note Clinical Nutrition Assessment Name: Trisha [...] Daily MELATONIN ORAL oral, 4 times weekly, Sun,,Wed,Fri NIFEdipine CC (ADALAT CC) 30 mg, oral, Daily before breakfast, Do not crush, chew, or split. sennosides-docusate sodium (Latisha-Colace) 8.6-50 mg tablet 1 tablet, oral, Daily, [...] Goals: intake > 75% meals Alexander Chowdhury RDWayne Hospital07-03-2023 NoteHospital Medicine Daily Progress Note - 02/05/2023 12:08 PM; Room: [address] [place] [address] Admission: 02/04/2023 10:47 PM; Length of stay: 1 days THE HOSPITALIST TEAM PREFERS TO USE [employer] CHAT FOR COMMUNICATION 7AM-7PM. IF I DO NOT RESPOND WITHIN 15 MINUTES, PLEASE PAGE ME/CALL THROUGH THE INSECTICIDE MIXER. FROM 7PM-7AM, PLEASE PAGE [phone](COVR) Code Status: Full Code Discharge Destination: home [...] Daily heparin (porcine), 5,000 Units, subcutaneous, q12h [facility] kit prep Tc 99m-sestamibi no.1, 10 millicurie, [...] 1.36 09/10/2022 Lab Results Component Value Date [id number] 177 (L) 09/10/2022 IRON 27 (L) 09/10/2022 TIBC 203 (L) 09/10/2022 Imaging ECG 12 lead Atrial-sensed ventricular-paced rhythm Abnormal ECG When compared with ECG of 10-SEP-2022 13:04, Electronic ventricular pacemaker has replaced Sinus rhythm Confirmed by Cheryl VALENTIN, MATILDA Robles (57) on 02/05/2023 8:39:37 AM Discharge Planning Discharge Planning Has discharge transport been arranged?: No Signed Josr Ray NP [facility] Medicine 02/05/2023 12:08 PMWay[facility]07-[facility]-2023 NoteHospital Medicine History and Physical 02/05/2023 12:23 AM THE HOSPITALIST TEAM PREFERS TO USE [employer] CHAT FOR COMMUNICATION 7AM-7PM. IF I DO NOT RESPOND WITHIN 15 MINUTES, PLEASE PAGE ME/CALL THROUGH THE INSECTICIDE MIXER. FROM 7PM-7AM, PLEASE PAGE [phone](COVR) Chief Complaint Direct transfer History of Present [...] urgency which improved. Case was discussed by [facility] hospital with Dr. Wilks and patient [...] examination, recent myocardial infarction ([facility]) 10/06/2022 Atrial fibrillation ([facility]) 09/20/2022 Carotid artery stenosis 09/20/2022 Cerebrovascular accident ([facility]) 09/20/2022 Coronary arteriosclerosis 09/20/2022 Hypertensive disorder 09/20/2022 Heart block 09/10/2022 Hyperparathyroidism due to renal insufficiency ([facility]) 04/02/2019 Stage 4 chronic kidney disease ([facility]) 04/02/2019 Anemia 02/19/2017 Essential hypertension 02/19/2017 Malignant neoplasm of female breast ([facility]) 02/19/2017 Proteinuria 02/19/2017 Vitamin D deficiency 02/19/2017 Type 2 diabetes mellitus ([facility]) 07/09/2014 Acute renal failure syndrome ([facility]) 11/06/2013 Benign hypertensive renal disease 11/06/2013 Stage 3 chronic kidney disease ([facility]) 11/06/2013 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) 06/21/2012 Assessment and Plan Pre-syncope- [...] this hospital stay by a member of [facility] Medicine. Past Medical History Past Medical History: Diagnosis Date A-fib ([facility]) Cancer ([facility]) Coronary artery disease Hypertension Myocardial infarct ([facility]) Stroke ([facility]) Past Surgical History Past Surgical History: Procedure Laterality Date BREAST SURGERY CHOLECYSTECTOMY CORONARY ARTERY BYPASS GRAFT HYSTERECTOMY Social History Social History Socioeconomic Histor (more content not included)...[facility]06-20-2023 NoteUT Electrophysiology Consult Note Reason for [...] stenosis, CKD. She was recently admitted to [facility] for weakness, suspected to have a [...] stroke who presented with generalized weakness to [facility]. At [facility], EKG demonstarted a 2:1 AV block with prolonged [place] interval 266. Chest x-ray demonstrated possible trace [...] heart rate 59. Patient was transferred to [facility] for further evaluation by cardiology. She [...] PMH: Past Medical History: Diagnosis Date A-fib ([facility]) Cancer ([facility] Coronary artery disease Hypertension Myocardial infarct ([facility]) Stroke ([facility]) PSH: Past Surgical History: Procedure [...] mg chemo tablet anastrozole (more content not included)...[facility]06-14-2023 NoteUT Cardiology - [facility] Subjective Trisha Parish is a 77 [...] In September 2022 she was admitted to [facility] with weakness. She was found to [...] (Pepcid) 20 mg tablet (more content not included)...[facility]-03-2023 Evaluation note* Encounter Date Diagnosis Assessment [...] ultrasound thyroid from May 2022 with Trisha. [facility] Other 11-16-2021 NotePROCEDURE REPORT Specimen #: [id number] Submitting Physician: Abner Wheeler MD SPECIMEN SUBMITTED [...] developed and its performance characteristics determined by [facility] [place] ([facility]). It has not been cleared or approved by the FDA. 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- Primary documented [facility]* Diagnosis Abdominal pain, unspecified abdominal location- Primary Abnormal CT scan Other nonspecific (abnormal) findings on radiological and other examinations of body structure Elevated lipase documented in this encounter [facility] Work Phone: Evaluation note* Diagnosis Malignant neoplasm of body of stomach (Multi)- Primary Malignant neoplasm of body of stomach GI cancer (Multi) Malignant neoplasm of ill-defined sites of digestive organs and peritoneum 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) Gastrointestinal complication of procedure documented in this encounter [facility] Work Phone: Evaluation note* Diagnosis Cardiac pacemaker in situ Atrioventricular block, second degree documented in this encounter [facility] Work Phone: Evaluation note* Diagnosis Cardiac pacemaker in situ Atrioventricular block, second degree documented in this encounter [facility] Work Phone: Evaluation note* Diagnosis Onset Date Resolution Status Anemia acute Hypotension acute Mass of pancreas acute Pancreatitis acute Rectal mass acute Stage 3b chronic kidney disease acute Gastric carcinoma acute [facility] Work Phone: Evaluation note* Diagnosis Onset Date Resolution Status Anemia acute Hypotension acute Mass of pancreas acute Pancreatitis acute Rectal mass acute Stage 3b chronic kidney disease acute CAD in [place] artery acute Encounter for coordination of complex care acute Gastric carcinoma acute History of left breast cancer acute History of transcatheter aortic valve replacement (TAV R) acute Mass of pancreas acute Pacemaker acute Stage 3b chronic kidney disease acute Type II diabetes mellitus ac [place] Cancer associated pain acute Encounter for palliative care acute Gastric carcinoma acute [facility] Work Phone: Evaluation note* Diagnosis Onset Date Resolution Status Anemia acute Hypotension acute Mass of pancreas acute Pancreatitis acute Rectal mass acute Stage 3b chronic kidney disease acute CAD in [place] artery acute Encounter for coordination of complex care acute Gastric carcinoma acute History of left breast cancer acute History of transcatheter aortic valve replacement (TAV R) acute Mass of pancreas acute Pacemaker acute Stage 3b chronic kidney disease acute Type II diabetes mellitus ac [place] Cancer associated pain acute Encounter for palliative care acute Gastric carcinoma acute CAD in [place] artery acute Encounter for coordination of complex care acute Gastric carcinoma acute History of left breast cancer acute History of transcatheter aortic valve replacement (TAV R) acute Mass of pancreas acute Pacemaker acute Stage 3b chronic kidney disease acute Type II diabetes mellitus ac [facility] Work Phone: History general Narrative - Reported* Type Description Date Medical History CAD in [place] artery Medical History Diabetes mellitus ty pe 2, uncontrolled, without complications Medical History Chronic kidney disease, stage 3 unspecified Medical History Elevated glucose Medical History Right thyroid nodule Medical History Menopause Medical History Enlarged thyroid gland Medical History Anxiety, generalized Medical History Essential hypertension Surgical History CHOLECYSTECTOMY 2015 Surgical History LEFT BREAST MASTECTOMY Hospitalization History SEE SURGICAL HX [facility] Other History general Narrative - Reported* Type Description Date Medical History CAD in [place] artery Medical History Diabetes mellitus ty pe 2, uncontrolled, without complications Medical History Chronic kidney disease, stage 3 unspecified Medical History Elevated glucose Medical History Right thyroid nodule Medical History Menopause Medical History Enlarged thyroid gland Medical History Anxiety, generalized Medical History Essential hypertension Medical History Heart attack Surgical History CHOLECYSTECTOMY 2014 Surgical History LEFT BREAST MASTECTOMY Hospitalization History SEE SURGICAL HX [facility] Other Hospital Discharge instructionsAmbulatory Orders* Referral to Palliative Medicine Location: None Selected [facility] Work Phone: Summary Purpose Family History No Family History Records Found Relationship Condition Age at Onset Recorded Date/T bailey Not Specified Diabetes mellitus Unknown Not Specified Myocardial infarction Unknown father Unknown Not Specified Unknown Relationship Condition Age at Onset Recorded Date/T bailey Not Specified Diabetes mellitus Unknown mother Myocardial infarction Unknown father Unknown mother Unknown Advance Directives No Advanced Directives Records Found Advance Directive Response Recorded Date/ Time Advance Directives No February 17 8:16pm Reason for Referral Specialty Diagnoses / Procedures Referred By Nnamdi carlson Referred To Contact Radiology Diagnoses Cardiac pacemaker in situ Atrioventricular block, second degree Procedures XR chest 2 views Shanon Martínez MD [address] [facility], [address] [address] Referral ID Status Reason Start Date Expiration Date Visits Requested Visits Authorized [id number] Authorized Perform Procedure 01/03/2024 01/02/2025 1 1 Specialty Diagnoses / Procedures Referred By Nnamdi carlson Referred To Contact Cardiology Diagnoses Cardiac pacemaker in situ Atrioventricular block, second degree Procedures Cardiac device check - In Clinic Shanon Martínez MD [address] [facility], [address] [address] Referral ID Status Reason Start Date Expiration Date Visits Requested Visits Authorized [id number] Pending Review Perform Procedure 01/03/2024 01/02/2025 1 1 Specialty Diagnoses / Procedures Referred By Contac t Referred To Contact Hematology and Oncology Diagnoses Malignant neoplasm of body of stomach (Multi) [place] [address] [place] [address] Keyla Lua MD [address] [place] [address] Referral ID Status Reason Start Date Expiration Date Visits Requested Visits Authorized [id number] Authorized Specialty Services Required 01/03/2024 01/02/2025 1 1 Specialty Diagnoses / Procedures Referred By Omidac t Referred To Contact Gastroenterology Diagnoses Abdominal pain, unspecified abdominal location Abnormal CT scan Elevated lipase Procedures Endoscopic Ultrasound (Upper) [place] ESOPHAGOSCOPY FLEXIBLE TRANSORAL ULTRASOUND EXAM [place] ESOPHAGOSCOPY INTRA/TRANSMURAL NEEDLE ASPIRAT/BX Aman Capellan MD [address] [address] Referral ID Status Reason Start Date Expiration Date V isits Requested Visits Authorized [id number] Authorized 12/07/2023 12/06/2024 1 1 Specialty Diagnoses / Procedures Referred By Contact Referred To Contact Gastroenterology Diagnoses Abdominal pain, unspecified abdominal location Abnormal CT scan Elevated lipase Procedures EGD [place] ESOPHAGOGASTRODUODENOSCOPY TRANSORAL DIAGNOSTIC [place] EGD TRANSORAL BIOPSY SINGLE/MULTIPLE Aman Capellan MD [address] [address] Referral ID Status Reason Start Date Expiration Date V isits Requested Visits Authorized [id number] Authorized 12/07/2023 12/06/[address] Morales in [place] - chronic PND Diagnosis 1 Post-nasal drip (R09 .82) Referral Organization [facility] john Referring Provider First Name Sanya Referring Provider Last Name Rivka Referring Provider Specialty Family [facility] Referred Organization [facility] Referred Address ,[place], [place],[address] Referred Provider Specialty Ear, Nose an d Throat Referral Priority Routine Chief Complaint and Reason for Visit Chief Complaint [facility] er follow up Amb Documentation Amb Documentation Gastric Adenocarcinoma NEW gastric adenocarinoma Reason for Visit Anemia Hypotension Mass of pancreas Pancreatitis Rectal mass 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 Chief Complaint tb er follow up Amb Documentation Amb Documentation Gastric Adenocarcinoma NEW gastric adenocarinoma Reason for Visit Anemia Hypotension Mass of pancreas Pancreatitis Rectal mass Stage 3b chronic kidney disease CAD in [place] artery Encounter for coordination of complex care Gastric carcinoma History of left breast cancer History of transcatheter aortic valve replacement (TAVR) Mass of pancreas Pacemaker Stage 3b chronic kidney disease Type II diabetes mellitus Cancer associated pain Encounter for palliative care Gastric carcinoma Chief Complaint [facility] er follow up Amb Documentation Amb Documentation NEW gastric adenocarinoma Follow Up PET Gastric Adenocarcinoma Reason for Visit Anemia Hypotension Mass of pancreas Pancreatitis Rectal mass Stage 3b chronic kidney disease CAD in [place] artery Encounter for coordination of complex care Gastric carcinoma History of left breast cancer History of transcatheter aortic valve replacement (TAVR) Mass of pancreas Pacemaker Stage 3b chronic kidney disease Type II diabetes mellitus Cancer associated pain Encounter for palliative care Gastric carcinoma CAD in [place] artery Encounter for coordination of complex care Gastric carcinoma History of left breast cancer History of transcatheter aortic valve replacement (TAVR) Mass of pancreas Pacemaker Stage 3b chronic kidney disease Type II diabetes mellitus Additional Source Comments INFORMATION SOURCE (unrecogn ized section and content) DATE CREATED AUTHOR 05/01/2018 [facility] DATE CREATED AUTHOR AUTHOR'S ORGANIZ ATION 07/16/2018 [facility] DATE CREATED AUTHOR AUTHOR'S ORGANIZ ATION 06/23/2021 [facility] DATE CREATED AUTHOR AUTHOR'S ORGANIZ ATION 10/10/2022 [facility] DATE CREATED AUTHOR AUTHOR'S ORGANIZ ATION 10/20/2023 [facility] EP[facility] DATE CREATED AUTHOR AUTHOR'S ORGANIZ ATION 12/02/2023 [facility] DATE CREATED AUTHOR AUTHOR'S ORGANIZ ATION 01/04/2024 [facility] DATE CREATED AUTHOR AUTHOR'S ORGANIZ ATION 01/12/2024 [facility] DATE CREATED AUTHOR AUTHOR'S ORGANIZ ATION 01/19/2024 [facility] DATE CREATED AUTHOR AUTHOR'S ORGANIZ ATION 02/02/2024 [facility] REASON FOR VISIT (unrecogniz ed section and content) Reason Comments Retinal Injection Specialty Diagnoses / Procedures Referred By Contac t Referred To Contact Gastroenterology Diagnoses Abdominal pain, unspecified abdominal location Abnormal CT scan Elevated lipase Procedures Endoscopic Ultrasound (Upper) [place] ESOPHAGOSCOPY FLEXIBLE TRANSORAL ULTRASOUND EXAM [place] ESOPHAGOSCOPY INTRA/TRANSMURAL NEEDLE ASPIRAT/BX Aman Capellan MD [address] [address] Referral ID Status Reason Start Date Expiration Date V isits Requested Visits Authorized [id number] Authorized 12/07/2023 12/06/2024 1 1 Reason Comments New Patient Visit Specialty Diagnoses / Procedures Referred By Contac t Referred To Contact Oncology Diagnoses GI cancer (Multi) Sanya Tineo MD [address] [place] [address] Referral ID Status Reason Start Date Expiration Date Visits Requested Visits Authorized [id number] Authorized Specialty Services Required 01/01/2024 12/31/2024 1 1 Specialty Diagnoses / Procedures Referred By Contac t Referred To Contact Cardiology Diagnoses Cardiac pacemaker in situ Atrioventricular block, second degree Procedures Cardiac device check - In Clinic Shanon Martínez MD [address] [address] Referral ID Status Reason Start Date Expiration Date Visits Requested Visits Authorized [id number] Pending Review Perform Procedure 01/03/2024 01/02/2025 1 1 Specialty Diagnoses / Procedures Referred By Contac t Referred To Contact Radiology Diagnoses Cardiac pacemaker in situ Atrioventricular block, second degree Procedures XR chest 2 views Shanon Martínez MD [address] [facility], [facility] [address] [place] [address] Referral ID Status Reason Start Date Expiration Date Visits Requested Visits Authorized [id number] Authorized Perform Procedure 01/03/2024 01/02/2025 1 1 Care Teams (unrecognized sec tion and content) [employer] Relationship Specialty Start Date End Date Sanya Tineo MD [address] [place] [address] PCP - General Family Medicine 02/20/23 [employer] Superintendent Relationship Specialty Start Date End Date Sanya Tineo MD [address] [place] [address] PCP - General Family Medicine 12/07/23 Aman Capellan MD [address] [place] [address] Referring Physician Gastroenterology 12/07/23 [employer] Superintendent Relationship Specialty Start Date End Date Sanya Tineo MD [address] [place] [address] PCP - General Family Medicine 12/07/23 Aman Capellan MD [address] [place] [address] Referring Physician Gastroenterology 12/07/23 [place] [address] [place] [address] Consulting Physician Hematology and Oncology 01/03/24 [employer] Superintendent Relationship Specialty Start Date End Date Sanya Tineo MD [address] [place] [address] PCP - General Family Medicine 12/07/23 Aman Capellan MD [address] [place] [address] Referring Physician Gastroenterology 12/07/23 [place] [address] [place] [address] Consulting Physician Hematology and Oncology 01/03/24 [employer] Superintendent Relationship Specialty Start Date End Date Sanya Tineo MD [address] [place] [address] PCP - General Family Medicine 12/07/23 Aman Capellan MD [address] [address] Referring Physician Gastroenterology 12/07/23 [place] [address] [place] [address] Consulting Physician Hematology and Oncology 01/03/24 Team Status: Active Member Role Status Dates Sanya Tineo MD Primary Care Provider Active Team Status: Active Member Role Status Dates Sanya Tineo MD Primary Care Provider Active Start: December 02, 2023 Kyle Chung PA-C Attending Provider Active S tart: December 02, 2023 Team Status: Inactive Member Role Status Dates Sanya Tineo MD Primary Care Provide r, Attending Provider Active Start: December 05, 2023 End: December 05, 2023 Team Status: Active Member Role Status Dates Sanya Tineo MD Primary Care Provider Active Start: December 06, 2023 Geri Gonzales Attending Provider Active Start: Mi thomas 2023 Team Status: Active Member Role Status Dates Sanya Tineo MD Primary Care Provide r, Attending Provider Active Start: January 01, 2024 Team Status: Active Member Role Status Dates Sanya Tineo MD Primary Care Provider Active Start: January 14, 2024 Chey Amezcua LPN Attending Provider Active St art: January 14, 2024 Team Status: Active Member Role Status Dates Sanya Tineo MD Primary Care Provider Active Start: January 17, 2024 Keyla Lua MD Attending Provider Active Start: January 17, 2024 NON STAFF Referring Provider Active Start: Naomi 2023 Team Status: Inactive Member Role Status Dates Sanya Tineo MD Primary Care Provider Active Start: January 17, 2024 End: January 17, 2024 Keyla Lua MD Attending Provider Active Start: January 17, 2024 End: January 17, 2024 NON STAFF Referring Provider Active Start: Naomi 2023 End: January 17, 2024 Team Status: Inactive Member Role Status Dates Sanya Tineo MD Primary Care Provider Active Start: January 28, 2024 End: January 28, 2024 Ngozi Caputo APRN Attending Provider Active Start: January 28, 2024 End: January 28, 2024 Team Status: Inactive Member Role Status Dates Sanya Tineo MD Primary Care Provider Active Start: February 01, 2024 End: February 01, 2024 Keyla Lua MD Attending Provider Active Start: February 01, 2024 End: February 01, 2024 Team Status: Active Member Role Status Dates Sanya Tineo MD Primary Care Provider Active Start: February 01, 2024 Keyla Lua MD Attending Provider Active Start: February 01, 2024 NON STAFF Referring Provider Active Start: Naomi piña 2023 Goals (unrecognized section and content) Goals may be documented in a n alternate section FOR RECORDS PERTAINING TO PATIENTS WHO ARE [...] BE BASED ON THE PRIMARY CLINICAL RECORDS. [employer] provides no warranty or guarantee of the accuracy or completeness of information in this document.
--- NOTE | 2024-02-10 15:06 | CT_ITS ---
[address] [address] Patient Name: ELIJAH WELCH MRN: [id number] date: 1945 Sex: F Assigned Patient Location: ER Current Patient Location: Accession/Order Number: [id number] Exam Date: 02/10/2024 16:05 Report Date: 02/10/2024 16:57 At the request of: PIERRE OCHOA Procedure: CT abdomen pelvis wo con EXAM: CT abdomen pelvis wo con HISTORY: sbo COMPARISON: 12/02/2023 TECHNIQUE: Axial CT imaging was performed through the abdomen and pelvis without intravenous contrast. Multiplanar reformats were performed. Dose reduction techniques were achieved by using automated exposure control and/or adjustment of mA and/or kV according to patient size and/or use of iterative reconstruction technique. FINDINGS: Lung bases: Lung bases are clear. No pleural effusion. GI upper: Unremarkable. Liver: Normal size and contour. Gallbladder: Cholecystectomy. Biliary system: intra or extrahepatic biliary ductal dilatation. Spleen: Normal size. Pancreas: Redemonstration of enlarged pancreatic head and uncinate process with main pancreatic ductal dilatation of the pancreatic body and tail, suspicious for pancreatic neoplasm. MRI or CT of the abdomen (pancreatic protocol) with contrast, including diffusion weighted images is recommended for better evaluation. Adrenal glands: Normal adrenal glands. Kidneys/ureters: Atrophic left kidney. Normal contours. No hydronephrosis. No nephrolithiasis or ureterolithiasis. Vessels: No aneurysm. Lymph Nodes: No lymphadenopathy. Small bowel: No wall thickening or dilatation. Colon: No wall thickening or dilatation. Dilated rectum, containing stool, representing fecal impaction. Appendix: No findings of appendicitis. Peritoneal cavity: No free fluid or pneumoperitoneum. Lower : Unremarkable. Bones: No acute bony abnormality. Degenerative changes of lumbar spine.. Levoscoliosis at the thoracolumbar junction. Soft tissues: No acute finding. Additional findings: None. CT/CT abdomen pelvis wo con IMPRESSION: Enlarged pancreatic head, resulting in intra and extrahepatic ductal dilatation and pancreatic body and tail ductal dilatation, suspicious for pancreatic neoplasm.MRI or CT of the abdomen (pancreatic protocol) with contrast, including diffusion weighted images is recommended for better evaluation. Fecal impaction. Electronically authenticated by: CON MONTEZ Date: 02/10/2024 16:57
[2024-02-10] MEDS: 0.9 % SODIUM CHLORIDE 1,000 ML 500 ML IV (15:21)
[2024-02-10 15:26] LABS: Basophils Percent Auto 0.4 % (0.2-2.0); Eosinophils Absolute Auto 0.1 10^3/uL (0.0-0.7); Eosinophils Percent Auto 1.3 % (0.9-7.0); Hematocrit 33.1 % (36.0-48.0); Hemoglobin 10.7 g/dL (12.0-16.0); Immature Granulocytes Abs Auto 0.01 10^3/uL (0.00-0.03); Immature Granulocytes Pct Auto 0.1 % (0.0-0.5); Lymphocytes Absolute Auto 0.6 10^3/uL (1.2-3.8); Lymphocytes Percent Auto 8.5 % (20.5-60.0); Mean Corpuscular HGB Conc 32.3 g/dL (29.9-35.2); Mean Corpuscular Hemoglobin 29.2 pg (26.7-34.0); Mean Corpuscular Volume 90.2 fL (81.0-99.0); Mean Platelet Volume 11.8 fL (9.5-13.5); Monocytes Absolute Auto 0.4 10^3/uL (0.3-0.8); Monocytes Percent Auto 5.9 % (1.7-12.0); Neutrophils Absolute Auto 5.6 10^3/uL (1.4-6.5); Neutrophils Percent Auto 83.8 % (43.0-75.0); Platelet Count 191 10^3/uL (150-450); Red Blood Count 3.67 10^6/uL (4.20-5.40); Red Cell Distribution Width 13.4 % (11.0-15.0); White Blood Count 6.7 10^3/uL (4.0-11.0)
--- NOTE | 2024-02-10 15:37 | ED_ITS ---
HPI - Weakness General Chief complaint: Weakness Stated complaint: weakness and constipation Time Seen by Provider: 02/10/24 15:05 Source: patient and family Mode of arrival: Wheelchair Limitations: no limitations History of Present Illness HPI Narrative: Patient is a 78-year-old female with a history of stomach cancer who presents to the emergency department for a 1 week history of constipation, decreased oral i ntake. She is concerned she may be dehydrated. She states that she is taking medication prescribed by her palliative specialist and was told that it may constipate her. She has been trying to take [id number] medications to help with her constipation, but she is unable to pass a bowel movement. She has had no objective fevers, vomiting. Her oncologist is at the [facility] in [facility]. She is not currently taking any chemotherapy or radiation, she is due for additional testing for her pancreas before she is started on any treatment plans for the cancer. She denies urinary symptoms. Related Data Home Medications ?Medication ?Instructions ?Recorded ?Confirmed atorvastatin 80 mg tablet 80 mg PO .qhs 02/02/23 11/05/23 carvedilol 25 mg tablet 25 mg PO Q12H 02/02/23 11/05/23 cholecalciferol (vitamin D3) 2,000 unit PO DAILY 02/02/23 11/05/23 clopidogrel 75 mg tablet 75 mg PO DAILY 02/02/23 11/05/23 docusate sodium 100 mg capsule 100 mg PO .sunday and 02/02/23 11/05/23 (Stool Softener) flash glucose scanning reader 02/02/23 11/05/23 (FreeStyle Stephy 2 [place]) flash glucose sensor (FreeStyle 02/02/23 11/05/23 Stephy 2 Sensor kit) hydralazine 25 mg tablet 25 mg PO Q12H 02/02/23 11/05/23 lisinopril 20 mg tablet 20 mg PO DAILY hypertension 02/02/23 11/05/23 nifedipine 30 mg tablet,extended 60 mg PO DAILY 02/02/23 11/05/23 release calcitriol 0.25 mcg capsule 0.25 mcg PO Q12H 02/17/23 11/05/23 famotidine 20 mg tablet (Acid 20 mg PO DAILY 11/05/23 11/05/23 Controller) Allergies Allergy/AdvReac Type Severity Reaction Status Date / Time meperidine [From Demerol] AdvReac Mild Unknown Verified 02/10/24 14:34 Review of Systems ROS Constitutional Denies: fever or chills Ears, nose, mouth, and throat Denies: throat pain or nasal congestion Cardiovascular Denies: chest pain Respiratory Denies: shortness of breath Gastrointestinal Reports: abdominal pain and constipation; Denies: nausea, vomiting or diarrhea Musculoskeletal Denies: back pain Integumentary/Breast Denies: rash Hematologic/Lymphatic Denies: easy bruising or easy bleeding PFSH PFSH Medical History (Updated 02/10/24 @ 17:38 by JORDON Aparicio) Retinal vascular occlusion, left eye ?H34.9 - Unspecified retinal vascular occlusion (ICD-10) Cataracts, bilateral ?H26.9 - Unspecified cataract (ICD-10) H/O TIA (transient ischemic attack) and stroke ?Z86.73 - Personal history of transient ischemic attack (TIA), and cerebral infarction without residual deficits (ICD-10) Afib ?I48.91 - Unspecified atrial fibrillation (ICD-10) HLD (hyperlipidemia) ?E78.5 - Hyperlipidemia, unspecified (ICD-10) CKD stage 3 due to type 2 diabetes mellitus ?E11.22 - Type 2 diabetes mellitus with diabetic chronic kidney disease (ICD- 10) ?N18.30 - Chronic kidney disease, stage 3 unspecified (ICD-10) CAD (coronary artery disease) ?I25.10 - Atherosclerotic heart disease of [place] coronary artery without angina pectoris (ICD-10) FH: mastectomy ?Z84.89 - Family history of other specified conditions (ICD-10) Pacemaker ?Z95.0 - Presence of cardiac pacemaker (ICD-10) History of breast cancer ?Z85.3 - Personal history of malignant neoplasm of breast (ICD-10) Hypertension ?I10 - Essential (primary) hypertension (ICD-10) Diabetes 1.5, managed as type 2 ?E13.9 - Other specified diabetes mellitus without complications (ICD-10) Surgical History (Updated 09/04/23 @ 13:08 by Sirisha Macias RN) Hx of cholecystectomy ?Z90.49 - Acquired absence of other specified parts of digestive tract (ICD- 10) H/O: hysterectomy ?Z90.710 - Acquired absence of both cervix and uterus (ICD-10) History of open heart surgery ?Z98.890 - Other specified postprocedural states (ICD-10) Family History Mother Family history of diabetes mellitus Family history of hypertension Family history of myocardial infarction Social History Within the past year, how often did you have a drink containing alcohol: never Score interpretation: A score less than 3 is consistent with normal alcohol consumption. Smoking status: Never smoker Second hand tobacco smoke exposure: Yes Non-prescribed substance use: denies use Previous occupational history: Retired- [employer] Known occupational exposures/hazards: No Highest level of school completed/degree received: Bachelor's degree Do you want help with school or training: No Exam Narrative Exam Narrative: Gen.: Awake, alert, in no distress Head: Normocephalic, atraumatic ENT: Moist mucous membranes Respiratory: No respiratory distress, lungs clear bilaterally Cardio: Regular rate and rhythm Gastrointestinal: Abdomen is Firm but not rigid, diffusely mildly tender to palpation with no guarding or rebound Extremities: Moves extremities equally Psych: Normal mood and affect Neuro: No focal neuro deficit Skin: Warm, dry, intact Constitutional Vital Signs, click to edit/add: Last Vital Signs Temp 98.2 F 02/10/24 14:28 Pulse 82 02/10/24 17:10 Resp 18 02/10/24 16:30 BP 158/70 H 02/10/24 17:00 Pulse Ox 98 02/10/24 17:10 O2 Del Method Room Air 02/10/24 14:28 Course Vital Signs Vital signs: Vital Signs Temperature 98.2 F 02/10/24 14:28 Pulse Rate 69 02/10/24 14:28 Respiratory Rate 20 02/10/24 14:28 Blood Pressure 173/92 H 02/10/24 14:28 Pulse Oximetry 100 02/10/24 14:28 Oxygen Delivery Method Room Air 02/10/24 14:28 Temperature 98.2 F 02/10/24 14:28 Pulse Rate 82 02/10/24 17:10 Respiratory Rate 18 02/10/24 16:30 Blood Pressure 158/70 H 02/10/24 17:00 Pulse Oximetry 98 02/10/24 17:10 Oxygen Delivery Method Room Air 02/10/24 14:28 MDM - Weakness MDM Narrative Medical decision making narrative: Patient medicated with IV fluids, Dilaudid, Zofran. Abdomen is without rigidity in the ER. EKG is unremarkable, lab studies are stable although the patient is noted to have an elevated troponin that she has had in the past. Troponin was repeated and has decreased. She has no active chest pain, no new EKG changes. CT shows the patient has fecal impaction and likely pancreatic cancer which is already being evaluated by her oncologist. It was recommended that the patient be admitted for IV fluids and for a bowel regimen to help with her constipation. She is stable at time of admission to the hospitalist. SHARED APC VISIT, PHYSICIAN ATTESTATION: [id number] I performed a substantive part of the MDM during the patient?s E/M visit. I personally evaluated and examined the patient. I personally made or approved the documented management plan and acknowledge its risk of complications. Medical Records Attestation: I reviewed the patient's medical records. Lab Data Attestation: I reviewed the patient's lab results. Labs: Lab Results 02/10/24 02/10/24 Range/Units 15:15 16:52 WBC 6.7 (4.0-11.0) 10^3/uL RBC 3.67 L (4.20-5.40) 10^6/uL Hgb 10.7 L (12.0-16.0) g/dL Hct 33.1 L (36.0-48.0) % MCV 90.2 (81.0-99.0) fL MCH 29.2 (26.7-34.0) pg MCHC 32.3 (29.9-35.2) g/dL RDW 13.4 (11.0-15.0) % Plt Count 191 (150-450) 10^3/uL MPV 11.8 (9.5-13.5) fL Neut % (Auto) 83.8 H (43.0-75.0) % Lymph % (Auto) 8.5 L (20.5-60.0) % Pierce % (Auto) 5.9 (1.7-12.0) % Eos % (Auto) 1.3 (0.9-7.0) % Baso % (Auto) 0.4 (0.2-2.0) % Neut # (Auto) 5.6 (1.4-6.5) 10^3/uL Lymph # (Auto) 0.6 L (1.2-3.8) 10^3/uL Pierce # (Auto) 0.4 (0.3-0.8) 10^3/uL Eos # (Auto) 0.1 (0.0-0.7) 10^3/uL Baso # (Auto) 0.0 (0.0-0.1) 10^3/uL Abs Immat Gran (auto) 0.01 (0.00-0.03) 10^3/uL Imm/Tot Granulo (auto) 0.1 (0.0-0.5) % Sodium 137 (136-145) mmol/L Potassium 4.0 (3.5-5.1) mmol/L Chloride 104 (98-107) mmol/L Carbon Dioxide 20.9 L (21.0-32.0) mmol/L Anion Gap 16.1 BUN 28.0 H (7.0-18.0) mg/dL Creatinine 1.69 H (0.55-1.02) mg/dL Est GFR ( Amer) 35 L (>=60) Est GFR (Non-Af Amer) 29 L (>=60) BUN/Creatinine Ratio 16.6 Glucose 173 H (74-106) mg/dL Lactate 1.5 (0.4-2.0) mmol/L Calcium 9.1 (8.5-10.1) mg/dL Magnesium 1.9 (1.8-2.4) mg/dL Total Bilirubin 1.1 H (0.2-1.0) mg/dL AST 80 H (15-37) U/L ALT 91 H (14-59) U/L Alkaline Phosphatase 396 H (46-116) U/L Troponin I High Sens 134.0 H* 120.8 H* (4.0-51.3) pg/mL Total Protein 7.2 (6.4-8.2) g/dL Albumin 3.0 L (3.4-5.0) g/dL Globulin 4.2 g/dL Albumin/Globulin Ratio 0.7 Lipase 78.0 H (16.0-77.0) U/L Imaging Data Chest x-ray: Attestation: I have reviewed the pertinent imaging results. Radiologist's impression: ITS Impressions Abdomen/Pelvis CT 02/10/24 15:06 IMPRESSION: Enlarged pancreatic head, resulting in intra and extrahepatic ductal dilatation and pancreatic body and tail ductal dilatation, suspicious for pancreatic neoplasm.MRI or CT of the abdomen (pancreatic protocol) with contrast, including diffusion weighted images is recommended for better evaluation. Fecal impaction. Electronically authenticated by: CON MONTEZ Date: 02/10/2024 16:57 Chest X-Ray 02/10/24 16:04 IMPRESSION: Stable chest x-ray, no acute findings. Clear lungs. Electronically authenticated by: ABBEY LADD Date: 02/10/2024 17:29 ECG Data Attestation: I personally reviewed and interpreted this ECG as follows: (Normal sinus rhythm at a rate of 73, first-degree AV block, no acute ST elevation or ectopy) Discharge Plan Discharge Chief Complaint: Weakness Clinical Impression: Constipation, Elevated troponin, Weakness generalized, Dehydration Patient Disposition: Admitted as Observation Time of Disposition Decision: 17:37 Prescriptions / Home Meds: No Action calcitriol 0.25 mcg capsule 0.25 mcg PO Q12H famotidine [Acid Controller] 20 mg tablet 20 mg PO DAILY atorvastatin 80 mg tablet 80 mg PO .qhs carvedilol 25 mg tablet 25 mg PO Q12H lisinopril 20 mg tablet 20 mg PO DAILY hydralazine 25 mg tablet 25 mg PO Q12H nifedipine 30 mg tablet extended release 60 mg PO DAILY clopidogrel 75 mg tablet 75 mg PO DAILY (DME) FreeStyle Stephy 2 Sensor Kit MISCELLANEOUS (DME) FreeStyle Stephy 2 [place] Misc MISCELLANEOUS docusate sodium [Stool Softener] 100 mg capsule 100 mg PO .sunday and Rx Instructions: patient only takes on sunday and cholecalciferol (vitamin D3) [Vitamin D3] 2,000 unit PO DAILY Patient Comments: vitamin D deficiency Print Language: Chadian Referrals: Sudha Lubin MD [Primary Care Provider] - 1 week
--- NOTE | 2024-02-10 15:37 | ECG_ITS ---
[facility] Test Date: 2024-02-10 Pat Name: ELIJAH WELCH Department: Room: - Gender: Female [employer]: : 1945 Requested By: SANYA TINEO Order Number: [id number] Reading MD: CARLA SHANKAR Measurements Intervals [place] Rate: 73 P: 90 NH: 220 QRS: 18 QRSD: 82 T: 26 QT: 408 QTc: 434 Interpretive Statements 1100 Sinus rhythm 2231 First degree AV block 3134 Anterior myocardial infarction, age undetermined Nonspecific ST/T wave changes 9150 abnormal ECG Electronically Signed On 02-11-2024 6:59:32 EDT by CARLA SHANKAR
[2024-02-10 15:44] LABS: Alanine Aminotransferase 91 U/L (14-59); Albumin Globulin Ratio 0.7; Alkaline Phosphatase 396 U/L (46-116); Anion Gap 16.1; Aspartate Amino Transferase 80 U/L (15-37); BUN Creatinine Ratio 16.6; Bilirubin Total 1.1 mg/dL (0.2-1.0); Calcium 9.1 mg/dL (8.5-10.1); Carbon Dioxide 20.9 mmol/L (21.0-32.0); Chloride 104 mmol/L (98-107); Estimated GFR (African America 35 (>=60); Estimated GFR (Non-African Ame 29 (>=60); Globulin 4.2 g/dL; Glucose 173 mg/dL (74-106); Magnesium 1.9 mg/dL (1.8-2.4); Sodium 137 mmol/L (136-145); Total Protein 7.2 g/dL (6.4-8.2)
[2024-02-10 15:46] LABS: Lactate/Lactic Acid 1.5 mmol/L (0.4-2.0)
[2024-02-10] MEDS: HYDROMORPHONE HCL 0.5 MG/0.5 ML SYRINGE IV (15:53)
[2024-02-10] MEDS: ONDANSETRON PF 4 MG/2 ML VIAL IV (15:53)
--- NOTE | 2024-02-10 16:04 | XR_ITS ---
The [address] [address] Patient Name: ELIJAH WELCH MRN: [id number] date: 1945 Sex: F Assigned Patient Location: ER Current Patient Location: ER Accession/Order Number: [id number] Exam Date: 02/10/2024 16:10 Report Date: 02/10/2024 17:29 At the request of: JANEEN PARKS Procedure: XR chest 1V EXAM: XR chest 1V HISTORY: Weakness COMPARISON: 04/06/2023 and earlier TECHNIQUE: AP upright chest x-ray 02/10/2024 FINDINGS: Lungs are clear and unchanged, no infiltrate or edema. Heart size normal for technique stable. Sternotomy wires pacemaker leads unchanged. No pleural effusion or pneumothorax. Slight elevation left diaphragm, left lung base clear. XR/XR chest 1V IMPRESSION: Stable chest x-ray, no acute findings. Clear lungs. Electronically authenticated by: ABBEY LADD Date: 02/10/2024 17:29
[2024-02-10] MEDS: HYDRALAZINE HCL 20 MG/ML VIAL IVP (16:17)
[2024-02-10] MEDS: 0.9 % SODIUM CHLORIDE 1,000 ML 1000 ML IV (17:02)
[2024-02-10 17:18] LABS: Troponin I High Sensitivity 120.8 pg/mL (4.0-51.3)
--- OUTSIDE RECORDS SUMMARY | 2024-02-10 18:08 | XMS_ITS ---
Patient Summarization (C-CDA 2.1 CCD) Created on: February 10, 2024 Trisha Parish E : 1945 Sex: Female Author Organization Sample organization Care Team Providers Care Nursing Home Administrator Name Role Phone WALLACE, SADI P Unavailable [...] Unavailable HAY ., DR BAUTISTA Attending Unavailable TINEO, DR SANYA De La Torre Primary Care Unavailable FLANNERY, MONTEZ Consulting Unavailable DIAB ., PIERRE Consulting Unavailable RIVKA, DR SANYA De La Torre Admitting Unavailable RIVKA, DR SANYA De La Torre Primary Care Unavailable RIVKA, DR SANYA De La Torre Attending Unavailable RIVKA, DR SANYA De La Torre Consulting Unavailable Sanya Tineo MD Primary Care Provider [phone] DIRK ONEILL Attending Unavailable ZOEY HERRING Referring Unavailable DIRK ONEILL Attending Unavailable JENNIFER MORALES Attending Unavailable SANYA TINEO Referring Unavailable JENNIFER MORALES Attending Unavailable DIRK ONEILL Attending Unavailable ALVAREZ, [...] TOÑO Attending Unavailable MOUKARBEL, TOÑO Attending Unavailable GANGTRAYNI, ANDREA WU Referring Unavailab le MOUKARBEL, TOÑO Attending Unavailable TIEN, TU Referring Unavailable MOUKARBEL, TOÑO Referring Unavailable MOUKARBEL, TOÑO Attending Unavailable MOUKARBEL, TOÑO Referring Unavailable TIEN, UT Referring Unavailable Aman Capellan MD Unavailable [phone] Sanya Tineo MD Primary Care Provider [phone] Edwardo Hanna MD Unavailable [phone] SMOOTH COELHO Attending Unavailable AMAN CAPELLAN Referring Unavailable TINEO, SANYA E Primary Care Unavailable MAURICIO, SHANON J Referring Unavailable TINEO, SANYA E Primary Care Unavailable MAURICIO, SHANON J Referring Unavailable TINEO, SANYA E Primary Care Unavailable MD Sanya Tineo Primary Care Provider MD Keyla Lua Attending Provider NON STAFF Referring Provider Unavailable EDWARDO HANNA Attending Unavailable TINEO, SANYA E Referring Unavailable TINEO, SANYA E Primary Care Unavailable TINEO, SANYA E Primary Care Unavailable MD Sanya Tineo Primary Care Provider MD Keyla Lua Attending Provider [phone] NON STAFF Referring Provider Unavailable Keyla Lua Admitting Unavailable Tineo, Sanya E Primary Care Unavailable NON STAFF Referring Unavailable Keyla Lua Attending Unavailable Mikel Mir Attending Unavailable Jailene Quesada Admitting Unavailable Tineo, Sanya E Primary Care Unavailable Allergies Allergy Classification Reported Allergen(s) Allergy Type Date of Onset Reaction(s) Facility (2 sources) Meperidine Drug Allergy 06-16-2009 [facility] Repository (19 sources) Meperidine; Translations: [MEPERIDINE] Drug Allergy 09-10-2022 Psychosis [facility] Work Phone: (1 source) Meperidine Drug Allergy 08-28-2023 [facility] (1 source) Meperidine Drug Allergy 01-28-2024 [facility] Repository Encounters Encounter Date Encounter Type Care Provider Facility Start: 02-01-2024 Registered Recurring MD Sanya Tineo Work Phone: [facility] Acute Work Phone: Start: 02-01-2024 End: 02-01-2024 ambulatory MD Sanya Tineo Work Phone: [facility] Work Phone: Start: 02-01-2024 End: 02-01-2024 Patient encounter procedure MD Sanya Tineo Work Phone: [facility] Work Phone: Start: 01-28-2024 End: 01-28-2024 ambulatory MD Sanya Tineo Work Phone: [facility] Work Phone: Start: 01-28-2024 End: 01-28-2024 Patient encounter procedure MD Sanya Tineo Work Phone: [facility] Work Phone: Start: 01-17-2024 End: 01-17-2024 ambulatory MD Sanya Tineo Work Phone: [facility] Work Phone: Start: 01-17-2024 End: 01-17-2024 Patient encounter procedure MD Sanya Tineo Work Phone: [facility] Work Phone: Start: 01-17-2024 Registered Recurring MD Sanya Tineo [facility] Phone: [facility] Work Phone: Start: 01-14-2024 Non-patient / Non-visit MD Geno Tineo Work Phone: [facility] Work Phone: Start: 01-07-2024 End: 01-07-2024 Subsequent hospital visit by physician [facility] Comment on above: Cardiac pacemaker in situ; Atrioventricular block, second degree Start: 01-07-2024 End: 01-07-2024 ambulatory SHANON Kanika MARTÍNEZ [facility] Start: 01-03-2024 End: 01-03-2024 ambulatory SANYA TINEO [facility] Start: 01-03-2024 End: 01-03-2024 Office outpatient new 60 minutes Edwardo Hanna MD Work Phone: [facility] Comment on above: 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 (Multi) (Primary Dx); GI cancer (Multi); 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); Gastrointestinal complication of procedure Start: 01-03-2024 End: 01-03-2024 [facility] Start: 01-01-2024 Non-patient / Non-visit MD Geno Tineo Work Phone: [facility] Work Phone: Start: 12-20-2023 End: 12-21-2023 ambulatory SMOOTH COELHO [facility] Start: 12-20-2023 End: 12-20-2023 Subsequent hospital visit by physician Smooth Coelho MD Work Phone: [facility] Comment on above: Abdominal pain, unsp ecified abdominal location (Primary Dx); Abnormal CT scan; Elevated lipase Start: 12-06-2023 Non-patient / Non-visit MD Geno Tineo Work Phone: [facility] Work Phone: Start: 12-05-2023 End: 12-05-2023 Patient encounter procedure MD Snaya Tineo Work Phone: [facility] Work Phone: Start: 12-02-2023 Non-patient / Non-visit MD Geno Tineo Work Phone: [facility] Work Phone: Start: 11-30-2023 End: 11-30-2023 ambulatory [facility] Start: 10-19-2023 End: 10-19-2023 ambulatory DIRK CHINER Not Available Start: 10-03-2023 End: 10-03-2023 ambulatory JENNIFER H TIMMIS Not Available Start: 08-28-2023 End: 08-28-2023 ambulatory DIRK CHINER Not Available Start: 08-28-2023 End: 08-28-2023 Patient encounter procedure Dirk Oneill DO Work Phone: [facility] Comment on above: 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 Start: 07-10-2023 End: 07-10-2023 ambulatory [facility] Start: 05-18-2023 End: 05-18-2023 ambulatory [facility] Start: 05-11-2023 End: 05-11-2023 ambulatory Sanya Tineo Other [facility] [employer] Other Start: 05-11-2023 Office outpatient vi sit 15 minutes Sanya Tineo [facility] Start: 05-09-2023 Telephone encounter Sanya Tineo [facility] Start: 05-09-2023 End: 05-10-2023 ambulatory MARGARET ALVAREZ [employer] Other Start: 05-08-2023 End: 05-08-2023 ambulatory Sanya Tineo Other [employer] Other Start: 05-08-2023 Telephone encounter Sanya Tineo [facility] Start: 04-17-2023 End: 04-17-2023 ambulatory Sanya Tineo Other [employer] Other Start: 04-17-2023 Office outpatient vi sit 15 minutes Sanya Rivka [facility] Start: 04-11-2023 End: 04-11-2023 ambulatory [facility] Start: 04-04-2023 Evaluation and manag ement of inpatient [facility] Start: 04-03-2023 End: 04-04-2023 Encounter for preprocedural cardiovascular examination [facility] Start: 04-03-2023 End: 04-04-2023 Evaluation and management of inpatient [facility] Start: 2023 End: 2023 ambulatory [facility] Start: 02-23-2023 End: 02-24-2023 ambulatory MARGARET ALVAREZ [facility] Start: 02-21-2023 End: 02-21-2023 [facility] Start: 02-17-2023 End: 02-20-2023 Evaluation and management of inpatient Mikel Lundbergdk Facility:[facility] Start: 02-09-2023 End: 02-09-2023 ambulatory Sanya Rivka Other [employer] Other Start: 02-09-2023 Office outpatient vi sit 25 minutes Sanya Tineo [facility] Start: 02-07-2023 Evaluation and manag ement of inpatient MARGARET ALVAREZ [facility] Start: 02-05-2023 Evaluation and manag ement of inpatient [facility] Start: 02-05-2023 Evaluation and manag ement of [facility] Start: 02-05-2023 End: 02-07-2023 Evaluation and management of inpatient [facility] Start: 01-23-2023 End: 01-23-2023 ambulatory MANDI SOTO [facility] Start: 01-17-2023 End: 01-17-2023 ambulatory [facility] Start: 12-05-2022 End: 12-05-2022 ambulatory Sanya Tineo Other [employer] Other Start: 12-05-2022 Telephone encounter Sanya Tineo [facility] Start: 12-04-2022 End: 12-04-2022 ambulatory Sanya Tineo Other [employer] Other Start: 12-04-2022 Telephone encounter Sanya Tineo [facility] Start: 10-06-2022 End: 10-07-2022 ambulatory SHARITA KHAN Facility:[facility] Start: 10-06-2022 Encounter for preprocedural cardiovascular examination [facility] Start: 09-12-[address] SANYA TINEO Facil ity:[facility] Start: 09-10-2022 End: 09-10-[address] MICHELE GOLDSMITH . Facility:[facility] Start: 09-08-2022 End: 09-08-2022 ambulatory Sanya Tineo Other [employer] Other Start: 09-08-2022 Office outpatient vi sit 25 minutes Sanya Tineo [facility] Start: 06-03-2022 End: 06-04-[address] SANYA TINEO Facility:[facility] Start: 05-23-2022 End: 05-24-2022 ambulatory DIAMOND HILARIO Facility:[facility] Start: 05-16-2022 End: 05-17-[address] SANYA TINEO Facility:[facility] Start: 04-07-2022 End: 04-08-2022 ambulatory SHARITA KHAN Facility:[facility] Start: 11-25-2021 End: 11-26-2021 ambulatory SHARITA OFELIARANJEET Facility:[facility] Start: 07-08-2018 End: 07-09-2018 Patient encounter procedure DEFAULT PHYSICIAN Facility:[facility] Start: 04-15-2018 End: 04-16-2018 Patient encounter SADI Georgiana MANZOWALLACE [facility] Immunizations Immunization Date Immunization Notes Care Provider Fa cility 06-28-2022 COVID-19 Pfizer (Pediatric) Sanya Tineo Other [facility] 06-16-2022 influenza virus vaccine, split virus (incl. purified surface antigen) Sanya Tineo Other [employer] Other 06-16-2022 influenza virus vaccine, unspecified formulation MD Sanya Tineo Work Phone: [facility] 09-03-2020 COVID-19 Vaccine Moderna - Documentation Purposes Only Sanya Tineo Other [facility] 04-26-2020 influenza virus vaccine, split virus (incl. purified surface antigen) Sanya Tineo Other [employer] Other 04-26-2020 influenza virus vaccine, unspecified formulation MD Sanya Tineo Work Phone: [facility] 06-20-2015 influenza virus vaccine, split virus (incl. purified surface antigen) Sanya Tineo Other [facility] [employer] Other 06-20-2015 influenza virus vaccine, unspecified formulation MD Sanya Tineo Work Phone: [facility] 06-01-2015 pneumococcal conjuga te vaccine, 13 valent Sanya Tineo Other [facility] Medications Current Medications Medication Drug Class(es) Dates [...] oral capsule (13 sources) Vitamin D Start: 12-03-2023 take 1 capsule by mouth once daily [...] 4:31pm As directed FreeStyle Stephy 14 Day Vaughan - (10 sources) FreeStyle Stephy 14 Day Vaughan - as directed Active FreeStyle Stephy 14 [...] Active 25 MG PO Three times daily 90 February 20, 2023 8:37am Start: 02-17-2023 End: [...] 1 GM PO 3x/Day before meals 90 30 February 01, 2024 12:00am Completed/Discontinued Medications Medication [...] (Avastin) intravitreal chemo injection 1.25 mg calcitriol 0.94559 mg oral capsule (6 sources) Vitamin D3 Analog Start: 02-17-2023 End: 02-17-2023 Calcitriol Discontinued 0.25 MCG PO February 17, 2023 12:00am February 17, 2023 10:44pm take 1 capsule by mo uth three times weekly Calcitriol 0.25 MCG 1 [...] tablet Orally Onc e a day Active Payers Date Payer Category Payer Medicare [id number] 2023 Self-pay 2017 Medicare [id number] 1959 Medicare [id number] 2. [id number] 1945 Unknown [id number] 2.16.8 40.1.708423.3.579.2.647 1945 Unknown [id number] 2.16.84 0.1.174439.3.579.2.593 1945 Unknown [id number] 2.16.84 0.1.647111.3.579.2.593 1945 Unknown [id number] 2.16.84 0.1.855119.3.579.2.593 1945 Unknown [id number] 2.16.84 0.1.949078.3.579.2.593 1945 Unknown [id number] 2.16.84 0.1.721902.3.579.2.593 1945 Unknown [id number] 2.16.84 0.1.129212.3.579.2.593 1945 Unknown [id number] 2.16.84 0.1.735268.3.579.2.593 1945 Unknown [id number] 2.16.84 0.1.971332.3.579.2.593 1945 Unknown [id number] 2.16.84 0.1.996720.3.579.2.1259 1945 Unknown [id number] 2.16.84 0.1.913199.3.579.2.1259 1945 Unknown [id number] 2.16.84 0.1.778680.3.579.2.1259 1945 Unknown [id number] 2.16.84 0.1.459043.3.579.2.1259 1945 Unknown [id number] 2.16.840 .1.308752.3.579.2.1259 1945 Unknown [id number] 2.16.8 40.1.030170.3.579.2.1243 1945 Unknown [id number] 2.16.84 0.1.188898.3.579.2.1246 1945 Unknown [id number] 2.16.84 0.1.035419.3.579.2.1246 1945 Unknown [id number] 2.16.8 40.1.835870.3.579.2.1245 1945 Unknown [id number] 2.16.8 40.1.281217.3.579.2.1245 Unknown Unknown [id number] 2.16.8 40.1.958844.3.579.2.531 Unknown [id number] 2.16.8 40.1.900934.3.579.2.531 Plan of Treatment Date Care Activity Detail Author Start: 12-19-2024 Diabetes mellitus screening Diabetes Screening [facility] Start: 01-17-2024 Patient referral [facility] Work Phone: Start: 01-07-2024 End: 01-07-2024 Patient encounter procedure 01/07/2024 1:20 PM EDT Appointment [facility] [address] [facility] [place] [address] [facility] Start: 01-03-2024 End: 01-02-2025 Guardant 360; Other-indicate in comment; Guardant - Miscellaneous Test [facility] Service Area Work Phone: Comment on above: Expected: 01/03/2024 (Approximate), Expi res: 01/02/2025 Start: 01-03-2024 End: 01-02-2025 Research Collection: 10mL Red Clot Activator - Clinical Collect [facility] Work Phone: Comment on above: Expected: 01/03/2024 (Approximate), Expi res: 01/02/2025 Start: 10-28-2023 COVID-19 Vaccine ( season) COVID-19 Vaccine ( season) [facility] Start: 10-03-2023 End: 10-03-2023 Patient encounter procedure 10/03/2023 11:10 AM EST Office Visit [facility] [address] [facility] [address] [place] [address] Jennifer Morales MD [address] [facility] [address] [place], [place] [id number] [facility] Start: 06-01-2021 Pneumococcal Vaccine: 65+ Years (2 - PPSV23 or PCV20) Pneumococcal Vaccine: 65+ Years (2 - PPSV23 or PCV20) [facility] Start: 10-27-2021 Pneumococcal Vaccine: 65+ Years (2 of 2 - PPSV23 or PCV20) Pneumococcal Vaccine: 65+ Years (2 of 2 - PPSV23 or PCV20) [facility] Start: 1995 Zoster Vaccines (1 of 2) Zoster Vaccines (1 of 2) [facility] Start: 1967 DTaP/Tdap/Td Vaccines (1 - Tdap) DTaP/Tdap/Td Vaccines (1 - Tdap) [facility] Start: 1963 Hepatitis C screening Hepatitis C Screening [facility] Start: 1945 Lipid panel Lipid Panel [facility] Start: 1945 Medicare Annual Wellness Visit Medicare Annual Wellness Visit (AWV) [facility] Start: 1945 Screening for osteoporosis Bone Density Scan [facility] End: 12-20-2023 Cancer Ag 19-9 [Units/volume] in Serum or Plasma Cancer Antigen 19-9 Lab Routine Once (Lab) for 1 Occurrences starting 12/20/2023 until 12/20/2023 [facility] Work Phone: Comment on above: Once (Lab) for 1 Occurrences starting until 12/20/2023 End: 12-20-2023 Carcinoembryonic Ag [Mass/volume] in Serum or Plasma Carcinoembryonic Antigen Lab Routine Once (Lab) for 1 Occurrences starting 12/20/2023 until 12/20/2023 [facility] Work Phone: Comment on above: Once (Lab) for 1 Occurrences starting until 12/20/2023 End: 12-20-2023 CBC panel - Blood by Automated count CBC Lab Routine Once (Lab) for 1 Occurrences starting 12/20/2023 until 12/20/2023 [facility] Work Phone: Comment on above: Once (Lab) for 1 Occurrences starting until 12/20/2023 End: 12-20-2023 Comprehensive metabolic 2000 panel - Serum or Plasma Comprehensive metabolic panel Lab Routine Once (Lab) for 1 Occurrences starting 12/20/2023 until 12/20/2023 [facility] Work Phone: Comment on above: Once (Lab) for 1 Occurrences starting until 12/20/2023 Comprehensive metabo lic 2000 panel - Serum or Plasma [facility] End: 12-20-2023 Esophagogastroduodenoscopy [facility] Area Work Phone: Comment on above: Once for 1 Occurrences starting 12/20/19 until 12/20/2023 Magnetic resonance cholangiopancreatography [facility] End: 12-20-2023 Moderate Sedation Moderate Sedation Procedures Routine Once for 1 Occurrences starting 12/20/2023 until 12/20/2023 [facility] Work Phone: Comment on above: Once for 1 Occurrences starting 12/20/19 until 12/20/2023 Non-gynecological cy tology method study [facility] Work Phone: Comment on above: Release Upon Ordering for 1 Occurrences starting 12/20/2023, 1 completed Patient referral [facility] Work Phone: Surgical pathology study [facility] Work Phone: Comment on above: Release Upon Ordering for 1 Occurrences starting 12/20/2023, 1 completed End: 01-07-2024 XR Chest 2 Views [facility] Work Phone: Comment on above: Once for 1 Occurrences starting 01/07/20 until 01/07/2024 [facility] Problems Active Problems Problem Classification Problem Date [...] angina pectoris; Translations: [Atherosclerotic heart disease of [place] coronary artery without angina pectoris] Onset: 3 [...] 3 Chronic Other aftercare (1 source) Other mcfp (current) drug therapy; Translations: [OTH 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 Start: 12-20-2023 DISCHARGE PATIENT [facility] Start: 12-20-2023 ENDOSCOPIC ULTRASOUND (UPPER) SMOOTH CATRACHITA RY Start: 12-20-2023 [facility] Start: 12-20-2023 CYTOLOGY CONSULTATION (NON-GYNECOLOGIC) [facility] Start: 12-20-2023 SURGICAL PATHOLOGY EXAM [facility] Start: 12-20-2023 Egd intrmural needle aspir/biop altered anatomy Smooth Coelho MD Work Phone: Start: 12-20-2023 Glucose [Mass/volume] in Serum or [facility] Start: 12-20-2023 PLACE IN OUTPATIENT/HOSPITAL AMBULATORY SURGERY SMOOTH COELHO Start: 12-20-2023 PULSE OXIMETRY, SPOT SMOOTH COELHO Start: 12-20-2023 Glucose quantitative blood xcpt reagent strip Smooth Coelho MD Work Phone: Start: 12-20-2023 PULSE OXIMETRY, SPOT Smooth Coelho MD Work Phone: Start: 08-28-2023 Intravitreal njx pharmacologic agt spx Dirk Oneill DO Work Phone: Start: 02-06-2023 End: 07-19-2023 History of coronary artery bypass grafting Hx of CABG Dirk Oneill DO Work Phone: Start: 01-23-2023 Follow-up visit Follow-up MANDI BELCHERCKO Results Test Name Value Interpretation Reference Range Facility Capillary blood glucose cydney urement by glucometer (mass/volume)Ordered By: Keyla Lua on 01-30-2024 Glucose [Mass/Vol] 188 mg/dL Normal [facility] Comment on above: Random Glucose Refer ence Range is dependent on time and content of last meal. Glucose of more than 200 mg/dL in a nonstressed, ambulatory subject supports the diagnosis of Diabetes Mellitus. Result Comment: [place] om Glucose Reference Range is dependent on time and content of last meal. Glucose of more than 200 mg/dL in a nonstressed, ambulatory subject supports the diagnosis of Diabetes Mellitus. PERFORMED BY: [place] [address] PATHOLOGIST LOGGING SUPERVISOR MELISSA QUINN M.D. Performed By: #### G LULS #### Point of Care testing , PET tumor init tx strat sb-m ton 01-30-2024 PET tumor init tx strat sb-mt [facility] [place] [place] [address] Nuclear Medicine Report Signed Patient: Trisha Parish MR#: [id number] : 1945 Acct:[id number] Age/Sex: 78 / F ADM Date: 01/30/24 Loc: Room: Type: [facility] Attending Dr: Keyla Lua MD Copies to: [...] cavity is present. Although distribution may be logistics service representative of asymmetric physiologic uptake, if there [...] identified. (more content not included)... Normal [facility] Cardiac device check - In Cl inicon 01-07-2024 Radiology Study observation (narrative) [facility] Work Phone: Cardiac device check - In Cl inicOrdered By: Shanon Martínez on 01-07-2024 [facility] Work Phone: XR CHEST 2 VIEWSon 4 XR CHEST 2 VIEWS Interpreted By: Chalino Jackson, STUDY: XR CHEST 2 VIEWS; 01/07/2024 1:47 pm INDICATION: Signs/Symptoms:MRI CLEARANCE. COMPARISON: No prior ACCESSION NUMBER(S): [id number] ORDERING CLINICIAN: SHANON MARTÍNEZ FINDINGS: Left-sided pacemaker in place. Mediastinal wires. CARDIOMEDIASTINAL SILHOUETTE: Cardiomediastinal silhouette is normal in size and configuration. LUNGS: Lungs are clear. There is no consolidation or effusion ABDOMEN: No remarkable upper abdominal findings. BONES: No acute osseous changes. IMPRESSION: 1. No evidence of acute cardiopulmonary process. MACRO: None Signed by: Chalino Whaley 01/08/2024 7:53 PM Dictation workstation: [id number] Normal [facility] Amylaseon 01-03-2024 Amylase [Catalytic activity/Vol] 61 U/L Normal -103 [facility] Comment on above: Performed By: #### 1 [id number] #### JENNYFER Brunson ([id number]) [facility] ([facility]) [id number] [place] [address] Amylase [Catalytic activity/Vol] 61 U/L 29 - 103 U/L [facility] Amylase [Catalytic activity/ Vol]on 01-03-2024 Interpretation and review of laboratory results Normal [facility] CBC W Auto Differential pane l (Bld)on 01-03-2024 Basophils (Bld) [#/Vol] 0.02 x10*3/uL Normal 0.00-0.10 [facility] Comment on above: Performed By: #### 5 7021-8 #### GENE ADKINS ([id number]) [facility] ([facility]) [address] [place] [address] Basophils (Bld) [#/Vol] 0.02 10*3/uL [facility] Basophils/100 WBC (Bld) 0.4 % Normal 0.0-2.0 [facility] Comment on above: Performed By: #### 5 7021-8 #### GENE ADKINS ([id number]) [facility] ([facility]) [address] [place] [address] Eosinophils (Bld) [#/Vol] 0.17 x10*3/uL Normal 0.00-0.40 [facility] Comment on above: Performed By: #### 5 7021-8 #### GENE ADKINS ([id number]) [facility] ([facility]) [address] [place] [address] Eosinophils (Bld) [#/Vol] 0.17 10*3/uL [facility] Eosinophils/100 WBC (Bld) 3.1 % Normal 0.0-6.0 [facility] Comment on above: Performed By: #### 5 7021-8 #### GENE ADKINS ([id number]) [facility] ([place]) [address] [place] [address] Erythrocyte distribution width (RBC) [Ratio] 13.9 % Normal 11.5-14.5 [facility] Comment on above: Performed By: #### 5 7021-8 #### GENE ADKINS ([id number]) [facility] ([facility]) [address] [place] [address] Hematocrit (Bld) [Volume fraction] 32.2 % Low 36.0-46.0 [facility] Comment on above: Performed By: #### 5 7021-8 #### GENE ADKINS ([id number]) [facility] [address] [place] [address] Hemoglobin (Bld) [Mass/Vol] 10.3 g/dL Low 12.0-16.0 [facility] Comment on above: Performed By: #### 5 7021-8 #### GENE ADKINS ([id number]) [facility] [address] [place] [address] Immature granulocytes (Bld) [#/Vol] 0.01 x10*3/uL Normal 0.00-0.50 [facility] Comment on above: Performed By: #### 5 7021-8 #### GENE ADKINS ([id number]) [facility] [address] [place] [address] Immature granulocytes (Bld) [#/Vol] 0.01 10*3/uL [facility] Immature granulocytes/100 WBC (Bld) 0.2 % Normal 0.0-0.9 [facility] Comment on above: Immature Granulocyte Count (IG) includes promyelocytes, myelocytes and metamyelocytes but does not include bands. Percent differential counts (%) should be interpreted in the context of the absolute cell counts (cells/UL). Result Comment: Chikis ture Granulocyte Count (IG) includes promyelocytes, myelocytes and metamyelocytes but does not include bands. Percent differential counts (%) should be interpreted in the context of the absolute cell counts (cells/UL). Performed By: #### 5 7021-8 #### GENE ADKINS ([id number]) [facility] [address] [place] [address] Lymphocytes (Bld) [#/Vol] 1.02 x10*3/uL Normal 0.80-3.00 [facility] Comment on above: Performed By: #### 5 7021-8 #### GENE ADKINS ([id number]) [facility] [address] [place] [address] Lymphocytes (Bld) [#/Vol] 1.02 10*3/uL [facility] Lymphocytes/100 WBC (Bld) 18.8 % Normal 13.0-44.0 [facility] Comment on above: Performed By: #### 5 7021-8 #### GENE ADKINS ([id number]) [facility] [address] [place] [address] MCH (RBC) [Entitic mass] 29.3 pg Normal 26.0-34.0 [facility] Comment on above: Performed By: #### 5 7021-8 #### GENE ADKINS ([id number]) [facility] [address] [place] [address] MCHC (RBC) [Mass/Vol] 32.0 g/dL Normal 32.0-36.0 [facility] Comment on above: Performed By: #### 5 7021-8 #### GENE ADKINS ([id number]) [facility] [address] [place] [address] MCV (RBC) [Entitic vol] 92 fL Normal 80-100 [facility] Comment on above: Performed By: #### 5 7021-8 #### GENE ADKINS ([id number]) [facility] [address] [place] [address] Monocytes (Bld) [#/Vol] 0.31 x10*3/uL Normal 0.05-0.80 [facility] Comment on above: Performed By: #### 5 7021-8 #### GENE ADKINS ([id number]) [facility] [address] [place] [address] Monocytes (Bld) [#/Vol] 0.31 10*3/uL [facility] Monocytes/100 WBC (Bld) 5.7 % Normal 2.0-10.0 [facility] Comment on above: Performed By: #### 5 7021-8 #### GENE ADKINS ([id number]) [facility] [address] [place] [address] Neutrophils (Bld) [#/Vol] 3.90 x10*3/uL Normal 1.60-5.50 [facility] Comment on above: Result Comment: Perc ent differential counts (%) should be interpreted in the context of the absolute cell counts (cells/uL). Performed By: #### 5 7021-8 #### GENE ADKINS ([id number]) [facility] [address] [place] [address] Neutrophils (Bld) [#/Vol] 3.90 10*3/uL [facility] Comment on above: Percent differential counts (%) should be interpreted in the context of the absolute cell counts (cells/uL). Neutrophils/100 WBC (Bld) 71.8 % Normal 40.0-80.0 [facility] Comment on above: Performed By: #### 5 7021-8 #### GENE ADKINS ([id number]) [facility] [address] [place] [address] Nucleated RBC/100 WBC (Bld) [Ratio] 0.0 /100 WBCs Normal 0.0-0.0 [facility] Comment on above: Performed By: #### 5 7021-8 #### GENE ADKINS ([id number]) [facility] [address] [place] [address] Nucleated RBC/100 WBC (Bld) [Ratio] 0.0 % [facility] Platelets (Bld) [#/Vol] 145 x10*3/uL Low 150-450 [facility] Comment on above: Performed By: #### 5 7021-8 #### GENE ADKINS ([id number]) [facility] [address] [place] [address] Platelets (Bld) [#/Vol] 145 10*3/uL Low [facility] RBC (Bld) [#/Vol] 3.52 x10*6/uL Low 4.00-5.20 [facility] Comment on above: Performed By: #### 5 7021-8 #### GENE ADKINS ([id number]) [facility] [address] [place] [address] RBC (Bld) [#/Vol] 3.52 10*6/uL Low [facility] WBC (Bld) [#/Vol] 5.4 x10*3/uL Normal 4.4-11.3 [facility] Comment on above: Performed By: #### 5 7021-8 #### GENE ADKINS ([id number]) [facility] [address] [place] [address] WBC (Bld) [#/Vol] 5.4 10*3/uL [facility] Cancer Ag 19-9on 01-03-2024 Cancer Ag 19-9 Qn 8223.03 [arb'U]/mL High <35.00 [facility] Comment on above: Order Comment: CA 19 -9 testing is performed by chemiluminescent immunoassay using the [employer]. Values obtained with different analytic methods cannot [...] By: #### 2 4108-3 #### JENNYFER Brunson ([id number]) [facility] ([facility]) [address] [place] [address] Cancer Ag 19-9 Qnon 01-03-20 24 CA 19-9 testing is performed by chemiluminescent immunoassay using the Siemens nprogressllTrekkSoft. Values obtained with different analytic methods cannot [...] for clinical diagnosis or patient management decisions. [facility] Cancer Antigen 19-9on 2023 Cancer Ag 19-9 Qn 8223.03 [arb'U]/mL High NINF - 35.00 U/mL [facility] Carcinoembryonic Agon 2023 Carcinoembryonic Ag [Mass/Vol] 5.2 ug/L Normal [facility] Comment on above: Order Comment: REF V ALUES NONSMOKERS 0-2.5 SMOKERS 0-5.0 CEA testing is performed by chemiluminescent immunoassay using the Siemens AtellTrekkSoft. Values obtained with different analytic methods cannot [...] By: #### 2 039-6 #### JENNYFER Brunson ([id number]) [facility] ([facility]) [address] [place] [address] Coagulation tissue factor in ducedon 01-03-2024 PT Coag (PPP) [Time] 14.6 s High 9.8-12.8 [facility] Comment on above: Performed By: #### 5 902-2 #### JENNYFER Burnson ([id number]) [facility] ([facility]) [address] [place] [address] Comprehensive metabolic [facility] panelon 01-03-2024 Albumin BCP dye [Mass/Vol] 4.1 g/dL Normal 3.4-5.0 [facility] Comment on above: Performed By: #### 2 4323-8 #### GENE ADKINS ([id number]) [facility] [address] [place] [address] ALP [Catalytic activity/Vol] 111 U/L Normal 33-136 [facility] Comment on above: Performed By: #### 2 4323-8 #### GENE ADKINS ([id number]) [facility] [address] [place] [address] ALT With P-5'-P [Catalytic activity/Vol] 37 U/L Normal 7-45 [facility] Comment on above: Patients treated wit h Sulfasalazine may generate falsely decreased results for ALT. Result Comment: Janice ents treated with Sulfasalazine may generate falsely decreased results for ALT. Performed By: #### 2 4323-8 #### GENE ADKINS ([id number]) [facility] [address] [place] [address] Anion gap [Moles/Vol] 15 mmol/L Normal 10-20 [facility] Comment on above: Performed By: #### 2 4323-8 #### GENE You'TUNDE ([id number]) [facility] [address] [place] [address] AST With P-5'-P [Catalytic activity/Vol] 42 U/L High 9-39 [facility] Comment on above: Performed By: #### 2 4323-8 #### GENE O'TUNDE ([id number]) [facility] [address] [place] [address] Bilirubin [Mass/Vol] 0.9 mg/dL Normal 0.0-1.2 [facility] Comment on above: Performed By: #### 2 4323-8 #### GENE You'TUNDE ([id number]) [facility] [address] [place] [address] Calcium [Mass/Vol] 9.3 mg/dL Normal 8.6-10.3 [facility] Comment on above: Performed By: #### 2 4323-8 #### GENE You'TUNDE ([id number]) [facility] ([facility]) [address] [place] [address] Chloride [Moles/Vol] 106 mmol/L Normal 98-107 [facility] Comment on above: Performed By: #### 2 4323-8 #### GENE You'TUNDE ([id number]) [facility] [address] [place] [address] CO2 [Moles/Vol] 22 mmol/L Normal 21-32 [facility] Comment on above: Performed By: #### 2 4323-8 #### GENE You'TUNDE ([id number]) [facility] [address] [place] [address] Creatinine [Mass/Vol] 1.67 mg/dL High 0.50-1.05 [facility] Comment on above: Performed By: #### 2 4323-8 #### GENE You'TUNDE ([id number]) [facility] [address] [place] [address] GFR/1.73 sq M.predicted among non-blacks MDRD (S/P/Bld) [Vol rate/Area] 31 mL/min/{1.73_m2} Low - PINF [facility] Comment on above: Calculations of love mated GFR are performed using the 2020 CKD-EPI Study Refit equation without the race variable for the IDMS-Traceable creatinine methods. https://jasn.asnjournals.org/content/early/ASN.97233576 88 Glomerular filtration rate/1.73 sq M.predicted 31 mL/min/1.73m*2 Low >60 [facility] Comment on above: Result Comment: Calc ulations of estimated GFR are performed using the 2020 CKD-EPI Study Refit equation without the race variable for the IDMS-Traceable creatinine methods. https://jasn.asnjournals.org/content/early/ASN.14512807 88 Performed By: #### 2 4323-8 #### GENE ADKINS ([id number]) [facility] [address] [place] [address] Glucose [Mass/Vol] 177 mg/dL High 74-99 [facility] Comment on above: Performed By: #### 2 4323-8 #### GENE ADKINS ([id number]) [facility] [address] [place] [address] Potassium [Moles/Vol] 4.3 mmol/L Normal 3.5-5.3 [facility] Comment on above: Performed By: #### 2 4323-8 #### GENE ADKINS ([id number]) [facility] [address] [place] [address] Protein [Mass/Vol] 6.8 g/dL Normal 6.4-8.2 [facility] Comment on above: Performed By: #### 2 4323-8 #### GENE You'TUNDE ([id number]) [facility] [address] [place] [address] Sodium [Moles/Vol] 139 mmol/L Normal 136-145 [facility] Comment on above: Performed By: #### 2 4323-8 #### GENE You'TUNDE ([id number]) [facility] [address] [place] [address] Urea nitrogen [Mass/Vol] 31 mg/dL High 6-23 [facility] Comment on above: Performed By: #### 2 4323-8 #### GENE You'TUNDE ([id number]) [facility] [address] [place] [address] Lipaseon 01-03-2024 Lipase [Catalytic activity/Vol] 124 U/L High 9 - 82 U/L [facility] Lipase [Catalytic activity/V ol]on 01-03-2024 Venipuncture immedia tely after or during the administration of Metamizole may lead to falsely low results. Testing should be performed immediately prior to Metamizole dosing. [facility] No Panel Informationon 01-02 Interpretation and review of laboratory results Abnormal [facility] Interpretation and review of laboratory results Abnormal [facility] PT Coag (PPP) [Time]on 01-02 INR Coag (PPP) [Relative time] 1.3 High 0.9-1.1 [facility] Comment on above: Performed By: #### 5 902-2 #### JENNYFER Brunson ([id number]) [facility] ([facility]) [address] [place] [address] INR Coag (PPP) [Relative time] 1.3 {INR} High 0.9 - 1.1 [facility] Protime-INRon 01-03-2024 PT Coag (PPP) [Time] 14.6 s High [facility] Triacylglycerol lipaseon Lipase [Catalytic activity/Vol] 124 U/L High 9-82 [facility] Comment on above: Order Comment: Venip uncture immediately after or during the administration of Metamizole may lead to falsely low results. Testing should be performed immediately prior to Metamizole dosing. Performed By: #### 3 040-3 #### JENNYFER Brunson ([id number]) [facility] ([facility]) [address] [place] [address] Serum or plasma cancer antig en 19-9 measurement (units/volume)on 01-01-2024 Cancer Ag 19-9 Qn 8452 [arb'U]/mL Abnormal 0-35 [facility] Comment on above: Results confirmed on dilution.[facility] Electrochemiluminescence Immunoassay(ECLIA)Values obtained with different assay methods or kits cannotbe used interchangeably. Results cannot be interpreted asabsolute evidence of the presence or absence of malignantdisease.Performed at: [employer] [address] [id number] Director: Akash Nugent PhD, Phone: [phone] ENDOSCOPIC ULTRASOUND (UPPER )on 12-20-2023 ENDOSCOPIC ULTRASOUND [...] sent for cytology and histology analysis. Onsite plycor operator was not present; 2 successful fine needle biopsy passes were taken with a 22 gauge needle guided by Doppler. An adequate sample was obtained. A sample was sent for histology analysis. Onsite plycor operator was not present Benign-appearing stricture (traversable) with [...] SECOND PART BIOPSY SURGICAL PATHOLOGY EXAM Malik Emy 12/20/2023 1302 2 : lesser curvature Tissue STOMACH BODY/CORPUS BIOPSY SURGICAL PATHOLOGY EXAM [place] (more content not included)... Normal [facility] Comment on above: Order Comment: EGD/E US Endoscopic Ultrasound (Upper )on 12-20-2023 Radiology Study observation (narrative) [facility] Work Phone: Table formatting fro m the original result [...] sent for cytology and histology analysis. Onsite plycor operator was not present; 2 successful fine needle biopsy passes were taken with a 22 gauge needle guided by Doppler. An adequate sample was obtained. A sample was sent for histology analysis. Onsite plycor operator was not present Benign-appearing stricture (traversable) with [...] BIOPSY SURGICAL PATH (more content not included)... [facility] Work Phone: [facility] Work Phone: Glucose Test strip manual (B ld) [Mass/Vol]on 12-20-2023 Glucose [Mass/Vol] 177 mg/dL High 74 - 99 mg/dL [facility] Glucose [Mass/Vol] 177 mg/dL High 74-99 [facility] Comment on above: Performed By: #### 2 341-6 #### TOSHIA PORTILLO ([id number]) [facility] ([facility]) [address] [place] [address] Interpretation and review of laboratory results Abnormal [facility] Non-can sorter cytology studyon Non-gynecological cytology method study Pathology report.total SEE COMMENT Non-gynecologic Cytology Case: [id number] Authorizing Provider: Smooth Coelho MD Collected: 12/20/2023 1326 Ordering Location: [facility] Received: 12/20/2023 1510 Pathologist: Meliza Roger MD Specimen: ABDOMINAL FINE NEEDLE ASPIRATION, latisha abdominal mass Path report.final diagnosis SEE COMMENT A. ABDOMINAL FINE NEEDLE ASPIRATION - latisha abdominal mass , CYTOLOGY AND CELL BLOCK: Satisfactory for evaluation No malignant cells identified. See [id number]. Laboratory comment SEE COMMENT Slide(s) initially screened by DOE Trejo at [facility] [address] [facility] [id number] By the signature on this report, the individual or group listed as making the Final Interpretation/Diagnosis certifies that they have reviewed this case. Path report.gross observation SEE COMMENT A. ABDOMINAL FINE NEEDLE ASPIRATION. Received 30 ml pink clear needle rinse in Cytolyt with particles. The specimen has been sent for cytological analysis to the cytology department at [facility]. Laboratory comment SEE COMMENT A1 Slides Only (No Block) A1-1 Pap Stain NGYN ThinPrep A2 Cell Block A2-1 H&E Normal [facility] Surgical pathology studyon 0 12-20-2023 Surgical pathology study Pathology report.total SEE COMMENT Surgical Pathology Case: [id number] Authorizing Provider: Smooth Coelho MD Collected: 12/20/2023 1302 Ordering Location: [facility] [place] [facility] Received: 12/20/2023 1506 Pathologist: Cele Kraus MD Specimens: A) - [...] randomized study of first-line pembrolizumab (pembro) vs complaint investigator-choice chemotherapy for mismatch repair-deficient (dMMR) or microsatellite instability-high (MSI-H) metastatic colorectal carcinoma (mCRC): KEYNOTE-177. (2017): [id number]. Lencho Ortiz, et al. KEYNOTE-164: Phase 2 study of pembrolizumab for patients with previously treated, microsatellite instability-high advanced colorectal carcinoma. (2016): [id number]. Deya Zee, et al. Safety and activity [...] from the phase 2 KEYNOTE-158 study. (2017): 1280-[address]61. [address]. Immunohistochemistry versus microsatellite instability testing for screening colorectal cancer patients at risk for Hereditary Nonpolyposis Colorectal Cancer Syndrome. Part1: The utility of immunohistochemistry. J Mol Diag 10(4):293-300, 2007. LUIGI Hammonds, Peter BOOTH. Colorectal cancer due to deficiency in DNA mismatch repair function: a review. Adv. Malika Pathol 16: 405-17, 2008. NOTE: Immunohistochemical staining (IHC) is used to determine the presence or absence of protein expression MLH1, MSH2, MSH6 and PMS2. Lymphocytes and normal epithelial cells exhibit strong nuclear staining and serve as Expression Present internal controls for staining of these proteins. Infiltrating tumor cells exhibiting nuclear staining are considered: EXPRESSION PRESENT. MSI-H refers to instability in >30% of m (more content not included)... [facility] Basophils Auto (Bld) [#/Vol] on 12-05-2023 Basophils (Bld) [#/Vol] 0.0 10 3/uL 0.0-0.1 [facility] Basophils/100 WBC Auto (Bld) on 12-05-2023 Basophils/100 WBC (Bld) 0.5 % 0.2-2.0 [facility] Eosinophils/100 WBC Auto (Bl d)on 12-05-2023 Eosinophils/100 WBC (Bld) 4.4 % 0.9-7.0 [facility] Erythrocyte distribution wid th Auto (RBC) [Ratio]on 12-05-2023 Erythrocyte distribution width (RBC) [Ratio] 14.3 % 11.0-15.0 [facility] Estimated glomerular filtrat ion rate (GFR) non- Americanon 12-05-2023 GFR/1.73 sq M.predicted among non-blacks MDRD (S/P/Bld) [Vol rate/Area] 25 mL/min/{1.73_m2} Low >=60 [facility] Globulin Calc (S) [Mass/Vol] on 12-05-2023 Globulin (S) [Mass/Vol] 3.4 g/dL [facility] Hematocrit Auto (Bld) [Volum e fraction]on 12-05-2023 Hematocrit (Bld) [Volume fraction] 28.8 % Low 36.0-48.0 [facility] Hemoglobin [Mass/volume] in Bloodon 12-05-2023 Hemoglobin (Bld) [Mass/Vol] 9.1 g/dL Low 12.0-16.0 [facility] Laboratory - Chemistry and C hemistry - challengeon 12-05-2023 Albumin [Mass/Vol] 3.1 g/dL Low 3.4-5.0 [facility] ALP [Catalytic activity/Vol] 104 U/L 46-116 [facility] ALT [Catalytic activity/Vol] 39 U/L 14-59 [facility] AST [Catalytic activity/Vol] 33 U/L 15-37 [facility] Bilirubin [Mass/Vol] 1.0 mg/dL 0.2-1.0 [facility] Calcium [Mass/Vol] 9.0 mg/dL 8.5-10.1 [facility] Chloride [Moles/Vol] 108 mmol/L High 98-107 [facility] CO2 [Moles/Vol] 22.1 mmol/L 21.0-32.0 [facility] Creatinine [Mass/Vol] 1.95 mg/dL High 0.55-1.02 [facility] GFR/1.73 sq M.predicted MDRD (S/P/Bld) [Vol rate/Area] 30 mL/min/{1.73_m2} Low >=60 [facility] Glucose [Mass/Vol] 218 mg/dL High 74-106 [facility] Lipase [Catalytic activity/Vol] 124.0 U/L High 16.0-77.0 [facility] Potassium [Moles/Vol] 4.4 mmol/L 3.5-5.1 [facility] Protein [Mass/Vol] 6.5 g/dL 6.4-8.2 [facility] Sodium [Moles/Vol] 140 mmol/L 136-145 [facility] Urea nitrogen [Mass/Vol] 45.0 mg/dL High 7.0-18.0 [facility] Urea nitrogen/Creatinine [Mass ratio] 23.1 mg/mg [facility] - Hematology and Cell countson 12-05-2023 Immature granulocytes/100 WBC (Bld) 0.2 % 0.0-0.5 [facility] Leukocytes [#/volume] correc sigifredo for nucleated erythrocytes in Blood by Automated counon 12-05-2023 WBC corrected for nucl RBC Auto (Bld) [#/Vol] 6.4 10 3/uL 4.0-11.0 [facility] Lymphocytes Auto (Bld) [#/Vo l]on 12-05-2023 Lymphocytes (Bld) [#/Vol] 0.9 10 3/uL Low 1.2-3.8 [facility] Lymphocytes/100 WBC Auto (Bl d)on 12-05-2023 Lymphocytes/100 WBC (Bld) 13.7 % Low 20.5-60.0 [facility] MCH Auto (RBC) [Entitic mass ]on 12-05-2023 MCH (RBC) [Entitic mass] 29.3 pg 26.7-34.0 [facility] MCHC Auto (RBC) [Mass/Vol]on 12-05-2023 MCHC (RBC) [Mass/Vol] 31.6 g/dL 29.9-35.2 [facility] MCV Auto (RBC) [Entitic vol] on 12-05-2023 MCV (RBC) [Entitic vol] 92.6 fL 81.0-99.0 [facility] Monocytes Auto (Bld) [#/Vol] on 12-05-2023 Monocytes (Bld) [#/Vol] 0.5 10 3/uL 0.3-0.8 [facility] Monocytes/100 WBC Auto (Bld) on 12-05-2023 Monocytes/100 WBC (Bld) 8.3 % 1.7-12.0 [facility] Neutrophils Auto (Bld) [#/Vo l]on 12-05-2023 Neutrophils (Bld) [#/Vol] 4.7 10 3/uL 1.4-6.5 [facility] Neutrophils/100 WBC Auto (Bl d)on 12-05-2023 Neutrophils/100 WBC (Bld) 72.9 % 43.0-75.0 [facility] No Panel Informationon 12-04 Eosinophils # (Auto) 0.3 10 3/uL 0.0-0.7 [facility] Immature Granulocyte # (Auto) 0.01 10 3/uL 0.00-0.03 [facility] Platelet mean volume Auto (B ld) [Entitic vol]on 12-05-2023 Platelet mean volume (Bld) [Entitic vol] 12.8 fL 9.5-13.5 [facility] Platelets Auto (Bld) [#/Vol] on 12-05-2023 Platelets (Bld) [#/Vol] 125 10 3/uL Low 150-450 [facility] RBC Auto (Bld) [#/Vol]on RBC (Bld) [#/Vol] 3.11 10 6/uL Low 4.20-5.40 [facility] Serum or plasma albumin/glob ulin mass ratioon 12-05-2023 Albumin/Globulin [Mass ratio] 0.9 {ratio} [facility] Serum or plasma anion gap de terminationon 12-05-2023 Anion gap [Moles/Vol] 14.3 mmol/L [facility] Activated partial thrombopla stin time (aPTT) in platelet poor plasma by coagulation aon 12-02-2023 aPTT Coag (PPP) [Time] 30.9 s 22.3-36.2 [facility] Basophils Auto (Bld) [#/Vol] on 12-02-2023 Basophils (Bld) [#/Vol] 0.0 10 3/uL 0.0-0.1 [facility] Basophils/100 WBC Auto (Bld) on 12-02-2023 Basophils/100 WBC (Bld) 0.3 % 0.2-2.0 [facility] Eosinophils/100 WBC Auto (Bl d)on 12-02-2023 Eosinophils/100 WBC (Bld) 3.7 % 0.9-7.0 [facility] Erythrocyte distribution wid th Auto (RBC) [Ratio]on 12-02-2023 Erythrocyte distribution width (RBC) [Ratio] 14.0 % 11.0-15.0 [facility] Estimated glomerular filtrat ion rate (GFR) non- Americanon 12-02-2023 GFR/1.73 sq M.predicted among non-blacks MDRD (S/P/Bld) [Vol rate/Area] 26 mL/min/{1.73_m2} Low >=60 [facility] Globulin Calc (S) [Mass/Vol] on 12-02-2023 Globulin (S) [Mass/Vol] 3.5 g/dL [facility] Hematocrit Auto (Bld) [Volum e fraction]on 12-02-2023 Hematocrit (Bld) [Volume fraction] 29.4 % Low 36.0-48.0 [facility] Hemoglobin [Mass/volume] in Bloodon 12-02-2023 Hemoglobin (Bld) [Mass/Vol] 9.7 g/dL Low 12.0-16.0 [facility] INR in Platelet poor plasma by Coagulation assayon 12-02-2023 INR Coag (PPP) [Relative time] 1.14 {INR} [facility] Comment on above: DESIRED INR:2.0-3.0 CONDITIONS NOT LISTED BELOW2.5-3.5 FOR PROSTHETIC HEART VALVE REPLACEMENT2.5-3.5 RECURRENT THROMBOSIS Laboratory - Chemistry and C hemistry - challengeon 12-02-2023 Albumin [Mass/Vol] 3.4 g/dL 3.4-5.0 [facility] ALP [Catalytic activity/Vol] 119 U/L High 46-116 [facility] ALT [Catalytic activity/Vol] 34 U/L 14-59 [facility] Amylase [Catalytic activity/Vol] 91 U/L 25-115 [facility] AST [Catalytic activity/Vol] 31 U/L 15-37 [facility] Bilirubin [Mass/Vol] 0.9 mg/dL 0.2-1.0 [facility] Calcium [Mass/Vol] 9.1 mg/dL 8.5-10.1 [facility] Chloride [Moles/Vol] 107 mmol/L 98-107 [facility] CO2 [Moles/Vol] 22.6 mmol/L 21.0-32.0 [facility] Creatinine [Mass/Vol] 1.85 mg/dL High 0.55-1.02 [facility] GFR/1.73 sq M.predicted MDRD (S/P/Bld) [Vol rate/Area] 32 mL/min/{1.73_m2} Low >=60 [facility] [place] Glucose [Mass/Vol] 206 mg/dL High 74-106 [facility] [place] Lactate [Moles/Vol] 1.2 mmol/L 0.4-2.0 [facility] Lipase [Catalytic activity/Vol] 179.0 U/L High 16.0-77.0 [facility] [place] Potassium [Moles/Vol] 4.2 mmol/L 3.5-5.1 [facility] [place] Protein [Mass/Vol] 6.9 g/dL 6.4-8.2 [facility] [place] Sodium [Moles/Vol] 140 mmol/L 136-145 [facility] [place] Urea nitrogen [Mass/Vol] 53.0 mg/dL High 7.0-18.0 [facility] [place] Urea nitrogen/Creatinine [Mass ratio] 28.6 mg/mg [facility] [place] Laboratory - Hematology and Cell countson 12-02-2023 Immature granulocytes/100 WBC (Bld) 0.3 % 0.0-0.5 [facility] [place] Leukocytes [#/volume] correc sigifredo for nucleated erythrocytes in Blood by Automated counon 12-02-2023 WBC corrected for nucl RBC Auto (Bld) [#/Vol] 7.6 10 3/uL 4.0-11.0 [facility] [place] Lymphocytes Auto (Bld) [#/Vo l]on 12-02-2023 Lymphocytes (Bld) [#/Vol] 0.9 10 3/uL Low 1.2-3.8 [facility] [place] Lymphocytes/100 WBC Auto (Bl d)on 12-02-2023 Lymphocytes/100 WBC (Bld) 11.7 % Low 20.5-60.0 [facility] [place] MCH Auto (RBC) [Entitic mass ]on 12-02-2023 MCH (RBC) [Entitic mass] 29.7 pg 26.7-34.0 [facility] [place] MCHC Auto (RBC) [Mass/Vol]on 12-02-2023 MCHC (RBC) [Mass/Vol] 33.0 g/dL 29.9-35.2 [facility] [place] MCV Auto (RBC) [Entitic vol] on 12-02-2023 MCV (RBC) [Entitic vol] 89.9 fL 81.0-99.0 [facility] [place] Monocytes Auto (Bld) [#/Vol] on 12-02-2023 Monocytes (Bld) [#/Vol] 0.5 10 3/uL 0.3-0.8 [facility] [place] Monocytes/100 WBC Auto (Bld) on 12-02-2023 Monocytes/100 WBC (Bld) 6.5 % 1.7-12.0 [facility] [place] Neutrophils Auto (Bld) [#/Vo l]on 12-02-2023 Neutrophils (Bld) [#/Vol] 5.9 10 3/uL 1.4-6.5 [facility] [place] Neutrophils/100 WBC Auto (Bl d)on 12-02-2023 Neutrophils/100 WBC (Bld) 77.5 % High 43.0-75.0 [facility] [place] No Panel Informationon 12-01 Eosinophils # (Auto) 0.3 10 3/uL 0.0-0.7 [facility] [place] Immature Granulocyte # (Auto) 0.02 10 3/uL 0.00-0.03 [facility] [place] Stool Occult Blood Negative [facility] [place] Troponin I High Sensitivity 79.2 pg/mL High 4.0-51.3 [facility] [place] Comment on above: RESULTS CALLED TO BIBIANA CHUNG RN @BY Teresa Payne [id number] POINTS HAVE BEEN ESTABLISHED BASED ON THE FOURTHUNIVERSAL DEFINITION OF MYOCARDIAL INFARCTION. THE UPPERREFERENCE LIMIT (URL) OF TROPONIN, DEFINED THE 99THPERCENTILE OF cTnI DISTRIBUTION IN A REFERENCE POPULATION,HAS BEEN CONFIRMED THE DECISION THRESHOLD FOR MIDIAGNOSIS.99TH PERCENTILE = 51.4 PG/MLNOTE: HIGH-SENSITIVITY TROPONIN ASSAY IS NOT INTENDED TO BEUSED IN ISOLATION BUT SHOULD BE INTERPRETED IN CONJUNCTIONWITH OTHER DIAGNOSTIC AND CLINICAL INFORMATION. Platelet mean volume Auto (B ld) [Entitic vol]on 12-02-2023 Platelet mean volume (Bld) [Entitic vol] 12.9 fL 9.5-13.5 [facility] [place] Platelets Auto (Bld) [#/Vol] on 12-02-2023 Platelets (Bld) [#/Vol] 124 10 3/uL Low 150-450 [facility] [place] Prothrombin time (PT)on 11-05 PT Coag (PPP) [Time] 12.0 s High 9.0-11.6 [facility] [place] RBC Auto (Bld) [#/Vol]on RBC (Bld) [#/Vol] 3.27 10 6/uL Low 4.20-5.40 [facility] Serum or plasma albumin/glob ulin mass ratioon 12-02-2023 Albumin/Globulin [Mass ratio] 1.0 {ratio} [facility] [place] Serum or plasma anion gap de terminationon 12-02-2023 Anion gap [Moles/Vol] 14.6 mmol/L [facility] [place] Office Visiton 11-30-2023 Follow-up visit [id number] Trisha Parish 1945 Date Provider Department Center 11/30/2023 TOÑO SIMPSON HILTON Gallego [facility] No family history on file Level of Service:[id number] MD OFFICE/OUTPATIENT ESTABLISHED LOW MDM 20 MIN Reason for Visit and Comments: Follow-up [201936] - 6 months Normal [facility] Left eye Ophthalmologic moira tmenton 08-28-2023 Radiology Study observation (narrative) [facility] Follow-Upon 05-18-2023 Follow-Up [id number] Trisha Parish 1945 Date Provider Department Center 05/18/2023 TOÑO SIMPSON [facility] No family history on file Level of Service:07016 MD OFFICE/OUTPATIENT ESTABLISHED LOW MDM 20-29 MIN Reason for Visit and Comments: Post-op TAVR [730] Normal [facility] Office Visiton 04-11-2023 Follow-up visit [id number] Trisha Parish 1945 F Date Provider Department Center 04/11/2023 Carla-TOÑO BALBUENA CARD [facility] No family history on file Level of Service:56005 MD OFFICE/OUTPATIENT ESTABLISHED MOD MDM 30-39 MIN Reason for Visit and Comments: Follow-up [172200] - 1 week F/U Normal [facility] Documentationon 04-05-2023 Documentation [id number] Trisha Parish 1945 F Date Provider Department Center 04/05/2023 389-LINA LAMAS HVCVASENDO [facility] No family history on file Reason for Visit and Comments: Post-op [483] [facility] 30on 04-04-2023 30 The patient is Moder ately Stable [...] and maintained or improved Outcome: Progressing Normal [facility] 30 The patient is Moder ately [...] and maintained or improved Outcome: Progressing Normal [facility] 30 Daily Case Managemen t Update [...] PT Recommendations: OT Recommendations: New Consults: Normal [facility] B-TYPE NATRIURETIC PEPTIDEon 04-04-2023 Natriuretic peptide B (Bld) [Mass/Vol] 213 pg/mL High 0-100 [facility] Comment on above: Performed By: #### L [id number] #### [facility] [address] [place] [address] BASIC METABOLIC PANELon 03-08 Anion gap [Moles/Vol] 13 mmol/L Normal 7-20 [facility] Comment on above: Performed By: #### L [id number] #### [facility] ([facility]) [address] [place] [address] Anion gap [Moles/Vol] 11 mmol/L Normal 7-20 [facility] Comment on above: Performed By: #### L [id number] #### [facility] ([facility]) [address] [place] [address] Calcium [Mass/Vol] 8.9 mg/dL Normal 8.6-10.3 [facility] Comment on above: Performed By: #### L [id number] #### [facility] ([facility]) [address] [place] [address] Calcium [Mass/Vol] 8.7 mg/dL Normal 8.6-10.3 [facility] Comment on above: Performed By: #### L [id number] #### [facility] ([facility]) [address] [place] [address] Chloride [Moles/Vol] 110 mmol/L High 98-107 [facility] Comment on above: Performed By: #### L [id number] #### [facility] ([facility]) [address] [place] [address] Chloride [Moles/Vol] 109 mmol/L High 98-107 [facility] Comment on above: Performed By: #### L [id number] #### [facility] ([facility]) [address] [place] [address] CO2 [Moles/Vol] 19 mmol/L Low 21-31 [facility] Comment on above: Performed By: #### L [id number] #### [facility] ([facility] [address] [place] [address] CO2 [Moles/Vol] 20 mmol/L Low 21-31 [facility] Comment on above: Performed By: #### L [id number] #### [facility] ([facility]) [address] [place] [address] Creatinine [Mass/Vol] 1.61 mg/dL High 0.60-1.20 [facility] Comment on above: Performed By: #### L [id number] #### [facility] ([facility]) [address] [place] [address] Creatinine [Mass/Vol] 1.58 mg/dL High 0.60-1.20 [facility] Comment on above: Performed By: #### L [id number] #### [facility] ([facility]) [address] [place] [address] GLOMERULAR FILTRATION RATE ML/MIN/1.73 SQ M.PREDICTED 32.6 mL/min/1.73m*2 Low >60.0 [facility] Comment on above: Result Comment: [facility]???s estimated glomerular filtration rate (eGFR) will [...] individuals. Performed By: #### L [id number] #### [facility] ([facility]) [address] [place] [address] GLOMERULAR FILTRATION RATE ML/MIN/1.73 SQ M.PREDICTED 33.3 mL/min/1.73m*2 Low >60.0 [facility] Comment on above: Result Comment: [facility]???s estimated glomerular filtration rate (eGFR) will [...] group of individuals. Performed By: #### L [id number] #### [facility] ([facility]) [address] [place] [address] Glucose [Mass/Vol] 95 mg/dL Normal 70-100 [facility] Comment on above: Performed By: #### L [id number] #### [facility] ([facility]) [address] [place] [address] Glucose [Mass/Vol] 140 mg/dL High 70-100 [facility] Comment on above: Performed By: #### L [id number] #### [facility] ([facility]) [address] [place] [address] Potassium [Moles/Vol] 4.2 mmol/L Normal 3.5-5.1 [facility] Comment on above: Performed By: #### L [id number] #### [facility] ([facility]) [address] [place] [address] Potassium [Moles/Vol] 4.1 mmol/L Normal 3.5-5.1 [facility] Comment on above: Performed By: #### L [id number] #### [facility] ([facility]) [address] [place] [address] Sodium [Moles/Vol] 138 mmol/L Normal 136-145 [facility] Comment on above: Performed By: #### L [id number] #### [facility] ([facility]) [address] [place] [address] Sodium [Moles/Vol] 136 mmol/L Normal 136-145 [facility] Comment on above: Performed By: #### L [id number] #### [facility] ([facility]) [address] [place] [address] Urea nitrogen [Mass/Vol] 34 mg/dL High 7-25 [facility] Comment on above: Performed By: #### L [id number] #### [facility] ([facility]) [address] [place] [address] Urea nitrogen [Mass/Vol] 33 mg/dL High 7-25 [facility] Comment on above: Performed By: #### L [id number] #### [facility] ([facility]) [address] [place] [address] UREA NITROGEN/CREATININE (MASS RATIO) IN SER/PLAS 21.1 Normal [facility] Comment on above: Performed By: #### L [id number] #### [facility] ([facility]) [address] [place] [address] UREA NITROGEN/CREATININE (MASS RATIO) IN SER/PLAS 20.9 Normal [facility] Comment on above: Performed By: #### L [id number] #### [facility] ([facility]) [address] [place] [address] CBCon 04-04-2023 Erythrocyte distribution width (RBC) [Ratio] 14.6 % Normal 11.5-15.0 [facility] Comment on above: Performed By: #### L [id number] #### [facility] ([facility]) [address] [place] [address] ERYTHROCYTE MEAN CORPUSCULAR HEMOGLOBIN CONCENTRATION (G/DL) BY AUTOMATED 32.8 g/dL Normal 32.0-35.0 [facility] Comment on above: Performed By: #### L [id number] #### [facility] ([facility]) [address] [place] [address] Hematocrit (Bld) [Volume fraction] 30.8 % Low 36.0-48.0 [facility] Comment on above: Performed By: #### L [id number] #### [facility] ([facility]) [address] [place] [address] Hemoglobin (Bld) [Mass/Vol] 10.1 g/dL Low 12.0-15.0 [facility] Comment on above: Performed By: #### L [id number] #### [facility] ([facility]) [address] [place] [address] MCH (RBC) [Entitic mass] 29.3 pg Normal 27.0-33.0 [facility] Comment on above: Performed By: #### L [id number] #### [facility] ([facility]) [address] [place] [address] MCV (RBC) [Entitic vol] 89.3 fL Normal 82.0-98.0 [facility] Comment on above: Performed By: #### L [id number] #### [facility] ([facility]) [address] [place] [address] PLATELETS (10*3/UL) IN BLOOD AUTOMATED COUNT 126 10*3/uL Low 150-400 [facility] Comment on above: Performed By: #### L [id number] #### [facility] ([facility]) [address] [place] [address] RBC (Bld) [#/Vol] 3.45 10*6/uL Low 3.80-5.00 [facility] Comment on above: Performed By: #### L [id number] #### [facility] ([facility]) [address] [place] [address] WBC (Bld) [#/Vol] 5.60 10*3/uL Normal 4.00-10.60 [facility] Comment on above: Performed By: #### L [id number] #### [facility] ([facility]) [address] [place] [address] DSon 04-04-2023 DS ------- Attestation signed by [...] Medications These medications were sent to [facility] - [address] [place] [address] [address] [facility] [place] [address], [facility] [address] acetaminophen 325 mg tablet aspirin 81 mg [...] a (more content not included)... [facility] NURSNOTEon 04-04-2023 NURSNOTE Pt discharged home w ith by car [facility] 04-03-2023 30 The patient is Moder [...] monitored and maintained or improved Outcome: Progressing [facility] HPon 04-03-2023 HP H&P reviewed. The [...] is brought today for the procedure. Normal [facility] MRSA/MSSA DNA NASALon 2022 MRSA DNA Negative Normal Negative [facility] Comment on above: Order Comment: Testi [...] preclude nasal colonization. Performed By: #### L [id number] ####[facility] ([facility])[address] [place] [address] MSSA DNA Negative Normal Negative [facility] Comment on above: Order Comment: Testi [...] preclude nasal colonization. Performed By: #### L [id number] ####[facility] ([facility])[address] [place] [address] NURSNOTEon 04-03-2023 NURSNOTE Report called to Kameron hay RN. He denies questions/concerns. Normal [facility] TYPE AND SCREENon 04-03-2023 AB SCREEN Negative Normal [facility] Comment on above: Performed By: #### L [id number] #### [facility] ([facility]) [address] [place] [address] ABO group Nom (Bld) B Normal [facility] Comment on above: Performed By: #### L [id number] #### [facility] ([facility]) [address] [place] [address] RH TYPE IN BLOOD Positive Normal [facility] Comment on above: Performed By: #### L [id number] #### [facility] ([facility]) [address] [place] [address] Orders Onlyon 03-22-2023 Orders Only [id number] Trisha Parish 1945 F Date Provider Department Center 03/22/2023 [facility]ARG[facility] No family history on file Normal [facility] HPon 2023 [facility] Cardiology - [facility] Subjective Trisha Parish is [...] In September 2022 she was admitted to [facility] with weakness. She was found [...] carvedilol (Co (more content not included)... Normal [facility] Office Visiton 2023 Follow-up visit [id number] Trisha Parish 1945 F Date Provider Department Center 2023 TOÑ[facility] SIMPSON [facility] No family history on file Level of Service:[id number] MD OFFICE/OUTPATIENT ESTABLISHED HIGH MDM 40-54 MIN Normal [facility] [place] 02-23-2023 ANES ------- Attestation signed by Matilda [...] 02/23/23 1030 Procedure: TRANSESOPHAGEAL ECHO (ELENA) Location: [facility] Vascular [...] consented to blood products. Additional Equipment Requests [facility] HPon 02-23-2023 HP ------- Attestation signed by Matilda Valentin [...] changes to the H&P. [facility] NURSNOTEon 02-23-2023 NURSNOTE Pt performed and pas sed bedside swallow study test. RN educated pt on d/c instructions. RN encouraged pt to voice any questions or concerns. Pt verbalizes no questions or concerns at this time. Pt was wheeled off of unit with all of belongings. [facility] HPon 02-21-2023 Cardiology Clinic No te [...] Never Update: 02/21/2023 She was hospitalized at [facility] for 3 days after presenting with [...] other elevated She was hospitalized 02/04-02/07/23 at [facility] and underwent coronary angiography and [...] in the morning., Disp: , Rfl: FreeStyle Tsephy 2 Sensor kit, , Disp: , Rfl: [...] 6.44 02/06 (more content not included)... Normal [facility] Office Visiton 02-21-2023 Follow-up visit [id number] Trisha Parish 1945 F Date Provider Department Center 02/21/2023 [id number] PIÑA CARD [facility] No family history on file Level of Service:83478 MD OFFICE/OUTPATIENT ESTABLISHED MOD MDM 30-39 MIN Reason for Visit and Comments: Follow-up [[id number]] - Pt discharge from hospital 02/20/23 for high potassium , dizziness Normal [facility] Basic Metabolic Panelon 02-03 Anion gap [Moles/Vol] 10.7 mmol/L Normal 6.0-15.0 [facility] Comment on above: Performed By: #### B MP #### [address] Calcium [Mass/Vol] 8.4 mg/dL Low 8.6-10.3 [facility] Comment on above: Performed By: #### B MP #### [address] Chloride [Moles/Vol] 109 mmol/L High 98-107 [facility] Comment on above: Performed By: #### B MP #### [address] CO2 [Moles/Vol] 22.7 mmol/L Normal 21.0-31.0 [facility] Comment on above: Performed By: #### B MP #### [address] Creatinine [Mass/Vol] 1.68 mg/dL High 0.60-1.20 [facility] Comment on above: Performed By: #### B MP #### [address] Creatinine Clr Calc Pharmacy 24.22 Normal [facility] Comment on above: Result Comment: PERF ORMED BY: [place] [address] PATHOLOGIST LOGGING SUPERVISOR MELISSA QUINN M.D. Performed By: #### B MP #### [address] GFR/1.73 sq M.predicted MDRD (S/P/Bld) [Vol rate/Area] 31.134 mL/min/{1.73_m2} Normal [facility] Comment on above: Performed By: #### B MP #### [address] Glucose [Mass/Vol] 94 mg/dL Normal 70-100 [facility] Comment on above: Result Comment: [place] Glucose Reference Range is dependent on time and content of last meal. Glucose of more than 200 mg/dL in a nonstressed, ambulatory subject supports the diagnosis of Diabetes Mellitus. ADA recommended reference range Performed By: #### B MP #### [address] Potassium [Moles/Vol] 4.4 mmol/L Normal 3.5-5.1 [facility] Comment on above: Performed By: #### B MP #### [address] Sodium [Moles/Vol] 138 mmol/L Normal 136-145 [facility] Comment on above: Performed By: #### B MP #### [address] Urea nitrogen [Mass/Vol] 34 mg/dL High 7-25 [facility] Comment on above: Performed By: #### B MP #### [address] Glucose Poct Glucometerson 0 02-20-2023 Glucose [Mass/Vol] 92 mg/dL Normal [facility] Comment on above: Result Comment: [facility] Glucose Reference Range is dependent on time and content of last meal. Glucose of more than 200 mg/dL in a nonstressed, ambulatory subject supports the diagnosis of Diabetes Mellitus. PERFORMED BY: [place] [address] PATHOLOGIST LOGGING SUPERVISOR MELISSA QUINN M.D. Performed By: #### G LORENZO #### Point of Care testing , Basic Metabolic Panelon 07- Anion gap [Moles/Vol] 9.8 mmol/L Normal 6.0-15.0 [facility] Comment on above: Performed By: #### G DLLS #### Point of Care testing , Calcium [Mass/Vol] 8.4 mg/dL Low 8.6-10.3 [facility] Comment on above: Performed By: #### G DLLS #### Point of Care testing , Chloride [Moles/Vol] 108 mmol/L High 98-107 [facility] Comment on above: Performed By: #### G LULS #### Point of Care testing , CO2 [Moles/Vol] 25.3 mmol/L Normal 21.0-31.0 [facility] Comment on above: Performed By: #### G LULS #### Point of Care testing , Creatinine [Mass/Vol] 1.62 mg/dL High 0.60-1.20 [facility] Comment on above: Performed By: #### G LULS #### Point of Care testing , Creatinine Clr Calc Pharmacy 25.11 Normal [facility] Comment on above: Result Comment: PERF ORMED BY: [facility] [place] [address] PATHOLOGIST LOGGING SUPERVISOR MELISSA QUINN M.D. Performed By: #### G LULS #### Point of Care testing , GFR/1.73 sq M.predicted MDRD (S/P/Bld) [Vol rate/Area] 32.523 mL/min/{1.73_m2} Normal [facility] Comment on above: Performed By: #### G LULS #### Point of Care testing , Glucose [Mass/Vol] 91 mg/dL Normal 70-100 [facility] Comment on above: Result Comment: [place] Glucose Reference Range is dependent on time and content of last meal. Glucose of more than 200 mg/dL in a nonstressed, ambulatory subject supports the diagnosis of Diabetes Mellitus. ADA recommended reference range Performed By: #### G LULS #### Point of Care testing , Potassium [Moles/Vol] 4.1 mmol/L Normal 3.5-5.1 [facility] Comment on above: Performed By: #### G LULS #### Point of Care testing , Sodium [Moles/Vol] 139 mmol/L Normal 136-145 [facility] Comment on above: Performed By: #### G LULS #### Point of Care testing , Urea nitrogen [Mass/Vol] 34 mg/dL High 7-25 [facility] Comment on above: Performed By: #### G LULS #### Point of Care testing , Glucose Poct Glucometerson 0 02-19-2023 Glucose [Mass/Vol] 101 mg/dL Normal [facility] Comment on above: Result Comment: [facility] Glucose Reference Range is dependent on time and content of last meal. Glucose of more than 200 mg/dL in a nonstressed, ambulatory subject supports the diagnosis of Diabetes Mellitus. PERFORMED BY: [facility] [address] [place] [address] PATHOLOGIST LOGGING SUPERVISOR MELISSA QUINN M.D. Performed By: #### G LULS #### Point of Care testing , Glucose [Mass/Vol] 143 mg/dL Normal [facility] Comment on above: Result Comment: [place] Glucose Reference Range is dependent on time and content of last meal. Glucose of more than 200 mg/dL in a nonstressed, ambulatory subject supports the diagnosis of Diabetes Mellitus. PERFORMED BY: [place] [address] PATHOLOGIST LOGGING SUPERVISOR MELISSA QUINN M.D. Performed By: #### G LULS #### Point of Care testing , US renal BIon 02-19-2023 US renal BI [facility] [place] [address] [place] [address] Ultrasound Report Signed Patient: Trisha Parish MR#: [id number] : 1945 Acct:[id number] Age/Sex: 77 / F ADM Date: 02/17/23 Loc: Room: [address] [place] [address] Type: ADM IN Attending Dr: Mikel Mir MD Ordering Provider: Mikel Mir MD Date of Service: 02/19/23 US/US renal BI: JASMIN r/o [place] or obstruction Copies to: Mikel Mir MD [...] Quintanilla Jr., D.ORobert02/19/2023 3:58 PM Dictation Location: [place] [address] Tech: Jenna Corado Transcribed By: [facility] 02/19/23 1558 Dictated By: Baldo Quintanilla Jr, DO 02/19/23 1557 Signed By: 02/19/23 1558 Normal [facility] Coagulation Profileon 2022 aPTT Coag (Bld) [Time] 31.5 s Normal 25.1-36.5 [facility] Comment on above: Result Comment: PERF ORMED BY: [place] [address] PATHOLOGIST LOGGING SUPERVISOR MELISSA QUINN M.D. Performed By: #### C MP, MG, PP, CBCNO #### [address] INR Coag (PPP) [Relative time] 1.3 {INR} Normal [facility] Comment on above: Result Comment: [...] C MP, MG, PP, CBCNO #### [address] PT Coag (PPP) [Time] 15.2 s High 9.0-12.9 [facility] Comment on above: Performed By: #### C MP, MG, PP, CBCNO #### [address] Comprehensive Metabolic Pane shima 02-18-2023 Albumin [Mass/Vol] 3.5 g/dL Normal 3.5-5.7 [facility] Comment on above: Performed By: #### C MP, MG, PP, CBCNO #### [address] Albumin/Globulin [Mass ratio] 1.3 {ratio} Normal [facility] Comment on above: Performed By: #### C MP, MG, PP, CBCNO #### [address] ALP [Catalytic activity/Vol] 83 U/L Normal 34-104 [facility] Comment on above: Performed By: #### C MP, MG, PP, CBCNO #### [address] ALT [Catalytic activity/Vol] 13 U/L Normal 7-52 [facility] Comment on above: Performed By: #### C MP, MG, PP, CBCNO #### [address] Anion gap [Moles/Vol] 11.0 mmol/L Normal 6.0-15.0 [facility] Comment on above: Performed By: #### C MP, MG, PP, CBCNO #### [address] AST [Catalytic activity/Vol] 16 U/L Normal 13-39 [facility] Comment on above: Performed By: #### C MP, MG, PP, CBCNO #### [address] Bilirubin [Mass/Vol] 0.7 mg/dL Normal 0.3-1.0 [facility] Comment on above: Performed By: #### C MP, MG, PP, CBCNO #### [address] Calcium [Mass/Vol] 8.4 mg/dL Low 8.6-10.3 [facility] Comment on above: Performed By: #### C MP, MG, PP, CBCNO #### [place] [address] [place] Chloride [Moles/Vol] 108 mmol/L High 98-107 [facility] Comment on above: Performed By: #### C MP, MG, PP, CBCNO #### [address] CO2 [Moles/Vol] 24.4 mmol/L Normal 21.0-31.0 [facility] Comment on above: Performed By: #### C MP, MG, PP, CBCNO #### [address] Creatinine [Mass/Vol] 1.91 mg/dL High 0.60-1.20 [facility] Comment on above: Performed By: #### C MP, MG, PP, CBCNO #### [facility] [address] Creatinine Clr Calc Pharmacy 21.30 Normal [facility] Comment on above: Performed By: #### C MP, MG, PP, CBCNO #### [address] GFR/1.73 sq M.predicted MDRD (S/P/Bld) [Vol rate/Area] 26.691 mL/min/{1.73_m2} Normal [facility] Comment on above: Performed By: #### C MP, MG, PP, CBCNO #### [address] Globulin (S) [Mass/Vol] 2.7 g/dL Normal [facility] Comment on above: Performed By: #### C MP, MG, PP, CBCNO #### [address] Glucose [Mass/Vol] 92 mg/dL Normal 70-100 [facility] Comment on above: Result Comment: [facility] Glucose Reference Range is dependent on time and content of last meal. Glucose of more than 200 mg/dL in a nonstressed, ambulatory subject supports the diagnosis of Diabetes Mellitus. ADA recommended reference range Performed By: #### C MP, MG, PP, CBCNO #### [address] Potassium [Moles/Vol] 4.4 mmol/L Normal 3.5-5.1 [facility] Comment on above: Performed By: #### C MP, MG, PP, CBCNO #### [address] Protein [Mass/Vol] 6.2 g/dL Low 6.4-8.9 [facility] Comment on above: Performed By: #### C MP, MG, PP, CBCNO #### [address] Sodium [Moles/Vol] 139 mmol/L Normal 136-145 [facility] Comment on above: Performed By: #### C MP, MG, PP, CBCNO #### [address] Urea nitrogen [Mass/Vol] 35 mg/dL High 7- [facility] Comment on above: Performed By: #### C MP, MG, PP, CBCNO #### [place] [address] [place] Dipstick and Microscopicon 0 02-18-2023 Appearance (U) Clear Normal Clear [facility] Comment on above: Order Comment: Name Collection Type:: Clean-Voided Midstream Performed By: #### A DDONUAPLUS, CUU #### [address] Bacteria,Urine None Seen Normal None Seen [facility] Comment on above: Order Comment: Name Collection Type:: Clean-Voided Midstream Performed By: #### A DDONUAPLUS, CUU #### [place] [address] [place] Bilirubin,Urine Negative Normal Negative [facility] Comment on above: Order Comment: Name Collection Type:: Clean-Voided Midstream Performed By: #### A DDONUAPLUS, CUU #### [address] Color (U) Yellow Normal Yellow [facility] Comment on above: Order Comment: Name Collection Type:: Clean-Voided Midstream Performed By: #### A DDONUAPLUS, CUU #### [address] Glucose Ql (U) Normal Normal Normal [facility] Comment on above: Order Comment: Name Collection Type:: Clean-Voided Midstream Performed By: #### A DDONUAPLUS, CUU #### [place] [address] [place] Hyaline Casts,Urine None Seen Normal 0-8 [facility] Comment on above: Order Comment: Name Collection Type:: Clean-Voided Midstream Result Comment: PERF ORMED BY: [place] [address] PATHOLOGIST LOGGING SUPERVISOR MELISSA QUINN M.D. Performed By: #### A DDONUAPLUS, CUU #### [address] Ketones Ql (U) Negative Normal Negative [facility] Comment on above: Order Comment: Name Collection Type:: Clean-Voided Midstream Performed By: #### A DDONUAPLUS, CUU #### [address] Leukocyte esterase Test strip Ql (U) 3+ High Negative [facility] Comment on above: Order Comment: Name Collection Type:: Clean-Voided Midstream Performed By: #### A DDONUAPLUS, CUU #### [place] [address] [place] Nitrite,Urine Negative Normal Negative [facility] Comment on above: Order Comment: Name Collection Type:: Clean-Voided Midstream Performed By: #### A DDONUAPLUS, CUU #### [place] [address] [place] Occult Blood,Urine Negative Normal Negative [facility] Comment on above: Order Comment: Name Collection Type:: Clean-Voided Midstream Result Comment: PERF ORMED BY: [place] [address] PATHOLOGIST LOGGING SUPERVISOR MELISSA QUINN M.D. Performed By: #### A DDONUAPLUS, CUU #### [place] [address] [place] pH (U) 7.5 [pH] Normal 5.0-9.0 [facility] Comment on above: Order Comment: Name Collection Type:: Clean-Voided Midstream Performed By: #### A DDONUAPLUS, CUU #### [place] [address] [place] Protein,Urine Negative Normal Negative [facility] Comment on above: Order Comment: Name Collection Type:: Clean-Voided Midstream Performed By: #### A DDONUAPLUS, CUU #### [place] [address] [place] RBC LM.HPF (Urine sed) [#/Area] 0 /[HPF] Normal 0-4 [facility] Comment on above: Order Comment: Name Collection Type:: Clean-Voided Midstream Performed By: #### A DDONUAPLUS, CUU #### [address] Specificy [place],Urine 1.006 Normal 1.001-1.030 [facility] Comment on above: Order Comment: Name Collection Type:: Clean-Voided Midstream Performed By: #### A DDONUAPLUS, CUU #### [address] Squamous Epithelial Cell,Urine None Seen Normal 0-2 [facility] Comment on above: Order Comment: Name Collection Type:: Clean-Voided Midstream Performed By: #### A DDONUAPLUS, CUU #### [address] Urobilinogen,Urine Normal Normal Normal [facility] Comment on above: Order Comment: Name Collection Type:: Clean-Voided Midstream Performed By: #### A DDONUAPLUS, CUU #### [address] WBC,Urine 5-9 High 0-4 [facility] Comment on above: Order Comment: Name Collection Type:: Clean-Voided Midstream Performed By: #### A DDONUAPLUS, CUU #### [address] ECG 12 lead ECGon 02-18-2023 ECG 12 lead ECG [facility] [place] [address] [place] [address] Electrocardiograph Report Signed Patient: Trisha Parish MR#: [id number] : 1945 Acct:[id number] Age/Sex: 77 / F ADM Date: 02/17/23 Loc: Room: [address] [place] [address] Type: ADM IN Attending Dr: Kevin Mejia [...] Abdi MD 0 02/18/23 1047 Normal [facility] Glucose Poct Glucometerson 0 02-18-2023 Glucose [Mass/Vol] 194 mg/dL Normal [facility] Comment on above: Result Comment: [facility] Glucose Reference Range is dependent on time and content of last meal. Glucose of more than 200 mg/dL in a nonstressed, ambulatory subject supports the diagnosis of Diabetes Mellitus. PERFORMED BY: [address] [address] PATHOLOGIST LOGGING SUPERVISOR MELISSA QUINN M.D. Performed By: #### G LULS #### Point of Care testing , Glucose [Mass/Vol] 94 mg/dL Normal [facility] Comment on above: Result Comment: [facility] Glucose Reference Range is dependent on time and content of last meal. Glucose of more than 200 mg/dL in a nonstressed, ambulatory subject supports the diagnosis of Diabetes Mellitus. PERFORMED BY: [address] [address] PATHOLOGIST LOGGING SUPERVISOR MELISSA QUINN M.D. Performed By: #### G LULS #### Point of Care testing , Hemogram CBC Without Diffon 02-18-2023 Erythrocyte distribution width (RBC) [Ratio] 14.4 % Normal 11.9-15.3 [facility] Comment on above: Performed By: #### C MP, MG, PP, CBCNO #### [address] Hematocrit (Bld) [Volume fraction] 32.7 % Low 34.0-46.4 [facility] Comment on above: Performed By: #### C MP, MG, PP, CBCNO #### [address] Hemoglobin (Bld) [Mass/Vol] 10.8 g/dL Low 11.8-15.4 [facility] Comment on above: Performed By: #### C MP, MG, PP, CBCNO #### [address] MCH (RBC) [Entitic mass] 28.8 pg Normal 24.7-34.3 [facility] Comment on above: Performed By: #### C MP, MG, PP, CBCNO #### [address] MCV (RBC) [Entitic vol] 87.0 fL Normal 80-100 [facility] Comment on above: Performed By: #### C MP, MG, PP, CBCNO #### [address] Mean Corpuscular HGB Conc 33.1 g/dL Normal 32.0-35.0 [facility] Comment on above: Performed By: #### C MP, MG, PP, CBCNO #### [address] Platelet mean volume (Bld) [Entitic vol] 10.2 fL Normal 6.3-10.7 [facility] Comment on above: Result Comment: PERF ORMED BY: [place] [address] PATHOLOGIST LOGGING SUPERVISOR MELISSA QUINN M.D. Performed By: #### C MP, MG, PP, CBCNO #### [address] Platelets (Bld) [#/Vol] 185 10*3/uL Normal 150-450 [facility] Comment on above: Performed By: #### C MP, MG, PP, CBCNO #### [address] RBC (Bld) [#/Vol] 3.76 10*6/uL Normal 3.60-5.00 [facility] Comment on above: Performed By: #### C MP, MG, PP, CBCNO #### [address] WBC (Bld) [#/Vol] 7.2 10*3/uL Normal 3.8-11.6 [facility] Comment on above: Performed By: #### C MP, MG, PP, CBCNO #### [address] Magnesiumon 02-18-2023 Magnesium [Mass/Vol] 1.9 mg/dL Normal 1.9-2.7 [facility] Comment on above: Result Comment: PERF ORMED BY: [place] [address] PATHOLOGIST LOGGING SUPERVISOR MELISSA QUINN M.D. Performed By: #### C MP, MG, PP, CBCNO #### [address] Troponin I High Sensitivityo n 02-18-2023 Troponin I High Sensitivity 55.0 pg/mL Off scale high 0.0-15.0 [facility] Comment on above: Result Comment: Crit ical Result : Called to and read back by: ROYAL DAILY at: 02/18/2023 07:39:39 by:[id number] PERFORMED BY: [place] [address] PATHOLOGIST LOGGING SUPERVISOR MELISSA QUINN M.D. Performed By: #### H S TROP #### [address] Urine Cultureon 02-18-2023 Bacteria identified Cx Nom (U) >100,000 colonies/ml mixed bacterial skin contaminants 2 Days PERFORMED BY: [address] [address] PATHOLOGIST LOGGING SUPERVISOR MELISSA QUINN M.D. Normal [facility] Comment on above: Performed By: #### G LORENZO #### Point of Care testing , Telephoneon 02-16-2023 Telephone [id number] Trisha Parish 1945 F Date Provider Department Center 02/16/2023 Cristobal-WILY [facility] No family history on file Normal [facility] Orders Onlyon 02-09-2023 Orders Only [id number] Trisha Parish 1945 F Date Provider Department Center 02/09/2023 144-MARGARET ALVAREZ [facility] No family history on file Normal [facility] 30on 02-07-2023 30 The patient is Moder ately Stable - Low risk of patient condition declining or worsening The patient's goals for the shift include comfort, rest The clinical goals for the shift include stable Over the shift, the patient did not make progress toward the following goals. Barriers to progression include . Recommendations to address these barriers include . Normal [facility] 30 The patient is Moder ately Stable - Low risk of patient condition declining or worsening The patient's goals for the shift include comfort The clinical goals for the shift include VSS Over the shift, the patient did not make progress toward the following goals. Barriers to progression include . Recommendations to address these barriers include . Normal [facility] BASIC METABOLIC PANELon 07 Anion gap [Moles/Vol] 10 mmol/L Normal 7-20 [facility] Comment on above: Performed By: #### L [id number] #### [facility] ([facility]) [address] [place] [address] Calcium [Mass/Vol] 8.6 mg/dL Normal 8.6-10.3 [facility] Comment on above: Performed By: #### L [id number] #### [facility] ([facility]) [address] [place] [address] Chloride [Moles/Vol] 109 mmol/L High 98-107 [facility] Comment on above: Performed By: #### L [id number] #### [facility] ([facility]) [address] [place] [address] CO2 [Moles/Vol] 25 mmol/L Normal 21-31 [facility] Comment on above: Performed By: #### L [id number] #### [facility] [address] [place] [address] Creatinine [Mass/Vol] 1.40 mg/dL High 0.60-1.20 [facility] Comment on above: Performed By: #### L [id number] #### [facility] ([facility]) [address] [place] [address] GLOMERULAR FILTRATION RATE ML/MIN/1.73 SQ M.PREDICTED 38.7 mL/min/1.73m*2 Low >60.0 [facility] Comment on above: Result Comment: [facility]???s estimated glomerular filtration rate (eGFR) will [...] individuals. Performed By: #### L [id number] #### [facility] ([facility] [address] [place] [address] Glucose [Mass/Vol] 115 mg/dL High 70-100 [facility] Comment on above: Performed By: #### L [id number] #### [facility] ([facility] [address] [place] [address] Potassium [Moles/Vol] 3.9 mmol/L Normal 3.5-5.1 [facility] Comment on above: Performed By: #### L [id number] #### [facility] ([facility] [address] [place] [address] Sodium [Moles/Vol] 140 mmol/L Normal 136-145 [facility] Comment on above: Performed By: #### L [id number] #### [facility] ([facility]) [address] [place] [address] Urea nitrogen [Mass/Vol] 32 mg/dL High 7-25 [facility] Comment on above: Performed By: #### L [id number] #### [facility] ([facility]) [address] [place] [address] UREA NITROGEN/CREATININE (MASS RATIO) IN SER/PLAS 22.9 Normal [facility] Comment on above: Performed By: #### L [id number] #### [facility] ([facility]) [address] [place] [address] MAGNESIUMon 02-07-2023 Magnesium [Mass/Vol] 2.0 mg/dL Normal 1.9-2.7 [facility] Comment on above: Performed By: #### L [id number] #### [facility] ([facility]) [address] [place] [address] BASIC METABOLIC PANELon 07-0 Anion gap [Moles/Vol] 10 mmol/L Normal 7-20 [facility] Comment on above: Performed By: #### L [id number] #### [facility] ([facility]) [address] [place] [address] Calcium [Mass/Vol] 8.6 mg/dL Normal 8.6-10.3 [facility] Comment on above: Performed By: #### L [id number] #### [facility] ([facility] [address] [place] [address] Chloride [Moles/Vol] 109 mmol/L High 98-107 [facility] Comment on above: Performed By: #### L [id number] #### [facility] ([facility] [address] [place] [address] CO2 [Moles/Vol] 25 mmol/L Normal 21-31 [facility] Comment on above: Performed By: #### L [id number] #### [facility] ([facility]) [address] [place] [address] Creatinine [Mass/Vol] 1.32 mg/dL High 0.60-1.20 [facility] Comment on above: Performed By: #### L [id number] #### [facility] ([facility]) [address] [place] [address] GLOMERULAR FILTRATION RATE ML/MIN/1.73 SQ M.PREDICTED 41.6 mL/min/1.73m*2 Low >60.0 [facility] Comment on above: Result Comment: [facility]???s estimated glomerular filtration rate (eGFR) will [...] group of individuals. Performed By: #### L [id number] #### [facility] ([facility]) [address] [place] [address] Glucose [Mass/Vol] 142 mg/dL High 70-100 [facility] Comment on above: Performed By: #### L [id number] #### [facility] ([facility]) [address] [place] [address] Potassium [Moles/Vol] 3.8 mmol/L Normal 3.5-5.1 [facility] Comment on above: Performed By: #### L [id number] #### [facility] ([facility]) [address] [place] [address] Sodium [Moles/Vol] 140 mmol/L Normal 136-145 [facility] Comment on above: Performed By: #### L [id number] #### [facility] ([facility]) [address] [place] [address] Urea nitrogen [Mass/Vol] 31 mg/dL High 7-25 [facility] Comment on above: Performed By: #### L [id number] #### [facility] ([facility]) [address] [place] [address] UREA NITROGEN/CREATININE (MASS RATIO) IN SER/PLAS 23.5 Normal [facility] Comment on above: Performed By: #### L [id number] #### [facility] ([facility]) [address] [place] [address] CBCon 02-06-2023 Erythrocyte distribution width (RBC) [Ratio] 14.1 % Normal 11.5-15.0 [facility] Comment on above: Performed By: #### L [id number] #### [facility] ([facility]) [address] [place] [address] ERYTHROCYTE MEAN CORPUSCULAR HEMOGLOBIN CONCENTRATION (G/DL) BY AUTOMATED 33.6 g/dL Normal 32.0-35.0 [facility] Comment on above: Performed By: #### L [id number] #### [facility] ([facility]) [address] [place] [address] Hematocrit (Bld) [Volume fraction] 33.3 % Low 36.0-48.0 [facility] Comment on above: Performed By: #### L [id number] #### [facility] ([facility] [address] [place] [address] Hemoglobin (Bld) [Mass/Vol] 11.2 g/dL Low 12.0-15.0 [facility] Comment on above: Performed By: #### L [id number] #### [facility] ([facility] [address] [place] [address] MCH (RBC) [Entitic mass] 29.3 pg Normal 27.0-33.0 [facility] Comment on above: Performed By: #### L [id number] #### [facility] ([facility] [address] [place] [address] MCV (RBC) [Entitic vol] 87.2 fL Normal 82.0-98.0 [facility] Comment on above: Performed By: #### L [id number] #### [facility] ([facility]) [address] [place] [address] PLATELETS (10*3/UL) IN BLOOD AUTOMATED COUNT 152 10*3/uL Normal 150-400 [facility] Comment on above: Performed By: #### L [id number] #### [facility] ([facility]) [address] [place] [address] RBC (Bld) [#/Vol] 3.82 10*6/uL Normal 3.80-5.00 [facility] Comment on above: Performed By: #### L [id number] #### [facility] ([facility]) [address] [place] [address] WBC (Bld) [#/Vol] 6.44 10*3/uL Normal 4.00-10.60 [facility] Comment on above: Performed By: #### L [id number] #### [facility] ([facility]) [address] [place] [address] CONSULTon 02-06-2023 CONSULT Inpatient consult to Cardiothoracic [...] per patient for which she saw her turn out Dr. Soto- medications were adjusted and pacemaker [...] has a past medical history of A-fib ([facility]), Cancer ([facility]), Coronary artery disease, Hypertension, Myocardial infarct ([facility]), and Stroke ([facility]). Surgical History She has a past [...] is not (more content not included)... Normal [facility] MAGNESIUMon 02-06-2023 Magnesium [Mass/Vol] 1.7 mg/dL Low 1.9-2.7 [facility] Comment on above: Performed By: #### L [id number] #### [facility] ([facility]) [address] [place] [address] 30on 02-05-2023 30 The patient is Moder ately Stable - Low risk of patient condition declining or worsening The patient's goals for the shift include comfort The clinical goals for the shift include vss Normal [facility] 30 Problem: Pain - Adul t [...] Flowsheets (Taken 02/05/2023745) Free from fall injury: [place] fall precautions as indicated by assessment Educate [...] goals for the shift include vss Normal [facility] [facility] 30 Daily Case Managemen t Update [...] PT Recommendations: OT Recommendations: New Consults: Normal [facility] 30 The patient is Moder ately [...] and maintained or improved Outcome: Progressing Normal [facility] BASIC METABOLIC PANELon 07-0 Anion gap [Moles/Vol] 12 mmol/L Normal - [facility] Comment on above: Performed By: #### L [id number] #### [facility] (AKER) [address] [facility] [place] [address] Anion gap [Moles/Vol] 12 mmol/L Normal 7-20 [facility] Comment on above: Performed By: #### L [id number] #### [facility] (BEAKER) [address] [place] [address] Calcium [Mass/Vol] 9.0 mg/dL Normal 8.6-10.3 [facility] Comment on above: Performed By: #### L [id number] #### [facility] (BEAKER) [address] [place] [address] Calcium [Mass/Vol] 8.8 mg/dL Normal 8.6-10.3 [facility] Comment on above: Performed By: #### L [id number] #### [facility] (BEAKER) [address] [place] [address] Chloride [Moles/Vol] 107 mmol/L Normal 98-107 [facility] Comment on above: Performed By: #### L [id number] #### [facility] (BEAKER) [address] [place] [address] Chloride [Moles/Vol] 107 mmol/L Normal 98-107 [facility] Comment on above: Performed By: #### L [id number] #### [facility] ([facility]) [address] [place] [address] CO2 [Moles/Vol] 23 mmol/L Normal 21-31 [facility] Comment on above: Performed By: #### L [id number] #### [facility] ([facility]) [address] [place] [address] CO2 [Moles/Vol] 25 mmol/L Normal 21-31 [facility] Comment on above: Performed By: #### L [id number] #### [facility] ([facility]) [address] [place] [address] Creatinine [Mass/Vol] 1.12 mg/dL Normal 0.60-1.20 [facility] Comment on above: Performed By: #### L [id number] #### [facility] ([facility]) [address] [place] [address] Creatinine [Mass/Vol] 1.18 mg/dL Normal 0.60-1.20 [facility] Comment on above: Performed By: #### L [id number] #### [facility] ([facility]) [address] [place] [address] GLOMERULAR FILTRATION RATE ML/MIN/1.73 SQ M.PREDICTED 50.6 mL/min/1.73m*2 Low >60.0 [facility] Comment on above: Result Comment: The [facility]???s estimated glomerular filtration rate (eGFR) will [...] individuals. Performed By: #### L [id number] #### [facility] ([facility]) [address] [facility] [place] [address] GLOMERULAR FILTRATION RATE ML/MIN/1.73 SQ M.PREDICTED 47.6 mL/min/1.73m*2 Low >60.0 [facility] Comment on above: Result Comment: The [facility]???s estimated glomerular filtration rate (eGFR) will [...] group of individuals. Performed By: #### L [id number] #### [facility] ([facility]) [address] [place] [address] Glucose [Mass/Vol] 121 mg/dL High 70-100 [facility] Comment on above: Performed By: #### L [id number] #### [facility] ([facility]) [address] [place] [address] Glucose [Mass/Vol] 99 mg/dL Normal 70-100 [facility] Comment on above: Performed By: #### L [id number] #### [facility] ([facility]) [address] [place] [address] Potassium [Moles/Vol] 3.8 mmol/L Normal 3.5-5.1 [facility] Comment on above: Performed By: #### L [id number] #### [facility] ([facility]) [address] [place] [address] Potassium [Moles/Vol] 3.8 mmol/L Normal 3.5-5.1 [facility] Comment on above: Performed By: #### L [id number] #### [facility] ([facility]) [address] [place] [address] Sodium [Moles/Vol] 138 mmol/L Normal 136-145 [facility] Comment on above: Performed By: #### L [id number] #### [facility] (BEAKER) [address] [place] [address] Sodium [Moles/Vol] 140 mmol/L Normal 136-145 [facility] Comment on above: Performed By: #### L [id number] #### [facility] ([facility]) [address] [place] [address] Urea nitrogen [Mass/Vol] 28 mg/dL High 7-25 [facility] Comment on above: Performed By: #### L [id number] #### [facility] ([facility]) [address] [place] [address] Urea nitrogen [Mass/Vol] 28 mg/dL High -25 [facility] Comment on above: Performed By: #### L [id number] #### [facility] ([facility]) [address] [place] [address] UREA NITROGEN/CREATININE (MASS RATIO) IN SER/PLAS 25.[address] [facility] Comment on above: Performed By: #### L [id number] #### [facility] ([facility]) [address] [place] [address] UREA NITROGEN/CREATININE (MASS RATIO) IN SER/PLAS 23.7 Normal [facility] Comment on above: Performed By: #### L [id number] #### [facility] ([facility]) [address] [place] [address] CBC WITH AUTO DIFFERENTIALon 02-05-2023 Basophils (Bld) [#/Vol] 0.03 10*3/uL Normal 0.00-0.20 [facility] Comment on above: Performed By: #### L [id number] #### [facility] ([facility]) [address] [place] [address] Basophils/100 WBC (Bld) 0.4 % Normal 0.0-1.0 [facility] Comment on above: Performed By: #### L [id number] #### [facility] ([facility]) [address] [place] [address] Eosinophils (Bld) [#/Vol] 0.65 10*3/uL High 0.00-0.50 [facility] Comment on above: Performed By: #### L [id number] #### [facility] (BEAKER) [address] [place] [address] Eosinophils/100 WBC (Bld) 8.6 % High 0.0-6.0 [facility] Comment on above: Performed By: #### L [id number] #### [facility] ([facility]) [address] [place] [address] Erythrocyte distribution width (RBC) [Ratio] 14.1 % Normal 11.5-15.0 [facility] Comment on above: Performed By: #### L [id number] #### [facility] ([facility]) [address] [place] [address] ERYTHROCYTE MEAN CORPUSCULAR HEMOGLOBIN CONCENTRATION (G/DL) BY AUTOMATED 33.1 g/dL Normal 32.0-35.0 [facility] Comment on above: Performed By: #### L [id number] #### [facility] ([facility]) [address] [place] [address] Hematocrit (Bld) [Volume fraction] 37.5 % Normal 36.0-48.0 [facility] Comment on above: Performed By: #### L [id number] #### [facility] ([facility]) [address] [place] [address] Hemoglobin (Bld) [Mass/Vol] 12.4 g/dL Normal 12.0-15.0 [facility] Comment on above: Performed By: #### L [id number] #### [facility] (BEAKER) [address] [place] [address] Immature granulocytes (Bld) [#/Vol] 0.02 10*3/uL Normal 0.00-0.20 [facility] Comment on above: Performed By: #### L [id number] #### [facility] (BEAKER) [address] [place] [address] Immature granulocytes/100 WBC (Bld) 0.3 % Normal 0.0-1.0 [facility] Comment on above: Performed By: #### L [id number] #### [facility] ([facility]) [address] [place] [address] Lymphocytes (Bld) [#/Vol] 1.46 10*3/uL Normal 1.20-4.00 [facility] Comment on above: Performed By: #### L [id number] #### [facility] ([facility]) [address] [place] [address] Lymphocytes/100 WBC (Bld) 19.3 % Low 20.0-45.0 [facility] Comment on above: Performed By: #### L [id number] #### [facility] ([facility]) [address] [place] [address] MCH (RBC) [Entitic mass] 28.8 pg Normal 27.0-33.0 [facility] Comment on above: Performed By: #### L [id number] #### [facility] ([facility]) [address] [place] [address] MCV (RBC) [Entitic vol] 87.0 fL Normal 82.0-98.0 [facility] Comment on above: Performed By: #### L [id number] #### [facility] ([facility]) [address] [place] [address] Monocytes (Bld) [#/Vol] 0.69 10*3/uL Normal 0.10-1.00 [facility] Comment on above: Performed By: #### L [id number] #### [facility] ([facility]) [address] [place] [address] Monocytes/100 WBC (Bld) 9.1 % Normal 5.0-12.0 [facility] Comment on above: Performed By: #### L [id number] #### [facility] (BEAKER) [address] [place] [address] Neutrophils (Bld) [#/Vol] 4.73 10*3/uL Normal 1.60-7.60 [facility] Comment on above: Performed By: #### L [id number] #### [facility] ([facility]) [address] [place] [address] Neutrophils/100 WBC (Bld) 62.3 % Normal 40.0-72.0 [facility] Comment on above: Performed By: #### L [id number] #### [facility] ([facility]) [address] [place] [address] NRBC (PER 100 WBCS) BY AUTOMATED COUNT 0.0 % Normal 0 [facility] Comment on above: Performed By: #### L [id number] #### [facility] ([facility]) [address] [place] [address] PLATELETS (10*3/UL) IN BLOOD AUTOMATED COUNT 175 10*3/uL Normal 150-400 [facility] Comment on above: Performed By: #### L [id number] #### [facility] ([facility]) [address] [place] [address] RBC (Bld) [#/Vol] 4.31 10*6/uL Normal 3.80-5.00 [facility] Comment on above: Performed By: #### L [id number] #### [facility] ([facility]) [address] [place] [address] WBC (Bld) [#/Vol] 7.58 10*3/uL Normal 4.00-10.60 [facility] Comment on above: Performed By: #### L [id number] #### [facility] ([facility]) [address] [place] [address] CONSULTon 02-05-2023 CONSULT ------- Attestation signed by Samer J Rosangela, MD at 02/05/2023 4:03 PM I personally [...] stenosis. The patient is very high risk. [place] [facility] Consult Note Reason for visit: near-syncope [...] no lightheadedness, (more content not included)... Normal [facility] HEPATIC FUNCTION PANELon Albumin [Mass/Vol] 3.8 g/dL Normal 3.5-5.7 [facility] Comment on above: Performed By: #### L [id number] #### [facility] ([facility]) [address] [place] [address] ALP [Catalytic activity/Vol] 92 U/L Normal 34-104 [facility] Comment on above: Performed By: #### L [id number] #### [facility] ([facility]) [address] [place] [address] ALT [Catalytic activity/Vol] 11 U/L Normal 7-52 [facility] Comment on above: Performed By: #### L [id number] #### [facility] ([facility]) [address] [place] [address] AST [Catalytic activity/Vol] 23 U/L Normal 13-39 [facility] Comment on above: Performed By: #### L [id number] #### [facility] ([facility]) [address] [place] [address] Bilirubin [Mass/Vol] 0.8 mg/dL Normal 0.3-1.0 [facility] Comment on above: Performed By: #### L [id number] #### [facility] (BEAKER) [address] [place] [address] Magnesium [Mass/Vol] 0.1 mg/dL Normal 0-0.2 [facility] Comment on above: Performed By: #### L [id number] #### [facility] (BEAKER) [address] [place] [address] Protein [Mass/Vol] 6.5 g/dL Normal 6.0-8.3 [facility] Comment on above: Performed By: #### L [id number] #### [facility] ([facility]) [address] [place] [address] HPon 02-05-2023 HP ------- Attestation signed by Matilda Valentin [...] stenosis. The patient is very high risk. [place] [facility] Consult Note Reason for visit: near-syncope [...] no lightheadedness, (more content not included)... Normal [facility] HP H&P reviewed. The jordon mendez was examined and there are no changes to the H&P. Normal [facility] MAGNESIUMon 02-05-2023 Magnesium [Mass/Vol] 1.4 mg/dL Low 1.9-2.7 [facility] Comment on above: Performed By: #### L [id number] ####[facility] ([facility])[address] [place] [address] TROPONIN Ion 02-05-2023 Troponin I.cardiac [Mass/Vol] 0.27 ng/mL Critically high 0.00-0.04 [facility] Comment on above: Result Comment: M-TR OPONIN INITIAL CRITICAL HIGH; RESPUN AND RETESTED Performed By: #### L [id number] #### [facility] ([facility]) [address] [place] [address] Troponin I.cardiac [Mass/Vol] 0.21 ng/mL Critically high 0.00-0.04 [facility] Comment on above: Result Comment: M-MD EVIOUS CRITICAL RESULT Previous result verified on 02/05/2023 0053 on specimen/case [id number] called with component Troponin I for procedure Troponin I with value 0.27 ng/mL. Performed By: #### L [id number] #### [facility] ([facility]) [address] [place] [address] Troponin I.cardiac [Mass/Vol] 0.25 ng/mL Critically high 0.00-0.04 [facility] Comment on above: Result Comment: M-MD EVIOUS CRITICAL RESULT Previous result verified on 02/05/2023 0550 on specimen/case [id number] called with component Troponin I for procedure Troponin I with value 0.21 ng/mL. Performed By: #### L [id number] #### [facility] ([facility]) [address] [place] [address] HPon 01-23-2023 [facility] Electrophysiology Consult Note Reason for visit: s/p PPM for AV block, AF s/p cryomaze HPI: Vandana Jem is a 77 y.o. 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 She was recently admitted to [facility] for weakness, suspected to have [...] stroke who presented with generalized weakness to [facility]. At [facility], EKG demonstarted a 2:1 AV block with prolonged MD interval 266. Chest x-ray demonstrated possible trace [...] heart rate 59. Patient was transferred to [facility] for further evaluation by cardiology. [...] PMH: Past Medical History: Diagnosis Date A-fib ([facility]) [place] Coronary artery disease Hypertension Myocardial infarct [place] PSH: Past Surgical History: Procedure Laterality Date [...] tablet anastrozole (more content not included)... Normal [facility] Office Visiton 01-23-2023 Follow-up visit [id number] Trisha Parish 1945 Date Provider Department Center 01/23/2023 MANDI FUENTES [facility] No family history on file Level of Service:31833 MD OFFICE/OUTPATIENT NEW MODERATE MDM 45-59 MINUTES Reason for Visit and Comments: Follow-up [060414] - 3 month follow up Normal [facility] Office Visiton 01-17-2023 Follow-up visit [id number] Trisha Parish 1945 Date Provider Department Center 01/17/2023 TOÑO SIMPSON [facility] No family history on file Level of Service:85203 MD OFFICE/OUTPATIENT ESTABLISHED MOD MDM 30-39 MIN Reason for Visit and Comments: Valve Disorder [3372] Atrial Fibrillation [80] Coronary Artery Disease [187] Normal [facility] PTH INTACTon 10-07-2022 PTH, Intact 45 pg/mL Normal 15-65 [facility] Comment on above: Performed By: #### P T, PTT #### [facility] [address] [address] [address] Madisyn Bentley RENAL FUNCTION PANELon 10-06 Albumin [Mass/Vol] 3.3 g/dL Critically low 3.4-5.0 [facility] Comment on above: Performed By: #### R ENAL #### [facility] [address] [address] [address] Madisyn Bentley Calcium [Mass/Vol] 8.2 mg/dL Critically low 8.5-10.1 [facility] Comment on above: Performed By: #### R ENAL #### [facility] [address] [address] [address] Madisyn Bentley Chloride [Moles/Vol] 110 mmol/L Critically high 98-107 [facility] Comment on above: Performed By: #### R ENAL #### [facility] [address] [address] [address] Madisyn Bentley CO2 [Moles/Vol] 22.2 mmol/L Normal 21.0-32.0 [facility] Comment on above: Performed By: #### R ENAL #### [facility] [address] [address] [address] Madisyn Bentley Creatinine [Mass/Vol] 1.36 mg/dL Critically high 0.55-1.02 [facility] Comment on above: Performed By: #### R ENAL #### [facility] [address] [address] [address] Madisyn Bentley EGFR-AF CHINESE 46 mL/min/1.73m2 Critically low >=60 [facility] Comment on above: Performed By: #### R ENAL #### [facility] [address] [address] [address] Madisyn Bentley EGFR-NON AF CHINESE 38 mL/min/1.73m2 Critically low >=60 [facility] Comment on above: Performed By: #### R ENAL #### [facility] [address] [address] [address] Madisyn Bentley Glucose [Mass/Vol] 145 mg/dL Critically high 74-106 [facility] Comment on above: Performed By: #### R ENAL #### [facility] [address] [address] [address] Madisyn Bentley Phosphate [Mass/Vol] 2.7 mg/dL Normal 2.6-4.7 [facility] Comment on above: Performed By: #### R ENAL #### [facility] [address] [address] [address] Madisyn Bentley Potassium [Moles/Vol] 3.9 mmol/L Normal 3.5-5.1 [facility] Comment on above: Performed By: #### R ENAL #### [facility] [address] [address] [address] Madisyn Bentley Sodium [Moles/Vol] 143 mmol/L Normal 136-145 [facility] Comment on above: Performed By: #### R ENAL #### [facility] [address] [place] [address] Dr. Madisyn Bentley Urea nitrogen [Mass/Vol] 24.0 mg/dL Critically high 7.0-18.0 [facility] Comment on above: Performed By: #### R ENAL #### [facility] [address] [address] [address] Madisyn Bentley UA RANDOMon 10-06-2022 Bilirubin Ql (U) Negative Normal NEGATIVE [facility] Comment on above: Performed By: #### R ENAL #### [facility] [address] [place] [address] Dr. Madisyn Bentley Clarity (U) CLEAR Normal CLEAR [facility] Comment on above: Performed By: #### R ENAL #### [facility] [address] [place] [address] Dr. Madisyn Bentley Color (U) LT. YELLOW Normal YELLOW [facility] Comment on above: Performed By: #### R ENAL #### [facility] [address] [place] [address] Dr. Madisyn Bentley Glucose Ql (U) Negative Normal NEGATIVE [facility] Comment on above: Performed By: #### R ENAL #### [facility] [address] [place] [address] Dr. Madisyn Bentley Hemoglobin Ql (U) Negative Normal NEGATIVE [facility] Comment on above: Performed By: #### R ENAL #### [facility] [address] [place] [address] Dr. Madisyn Bentley Ketones Ql (U) Negative Normal NEGATIVE [facility] Comment on above: Performed By: #### R ENAL #### [facility] [address] [place] [address] Dr. Madisyn Bentley LEUKOCYTES SMALL Abnormal NEGATIVE [facility] Comment on above: Performed By: #### R ENAL #### [facility] [address] [place] [address] Dr. Madisyn Bentley Nitrite Ql (U) Negative Normal NEGATIVE [facility] Comment on above: Performed By: #### R ENAL #### [facility] [address] [place] [address] Dr. Madisyn Bentley pH (U) 5.5 [pH] Normal 5-9 [facility] Comment on above: Performed By: #### R ENAL #### [facility] [address] [place] [address] Dr. Madisyn Bentley SPEC GRAVITY 1.020 Normal 1.005-<=1.0 25 [facility] Comment on above: Performed By: #### R ENAL #### [facility] [address] [place] [address] Dr. Madisyn Bentley UA PROTEIN TRACE Normal NEGATIVE/ TRACE [facility] Comment on above: Performed By: #### R ENAL #### [facility] [address] [place] [address] Dr. Madisyn Bentley Urobilinogen Qn (U) 0.2 {Luis Eduardo'U}/dL Normal 0.2 - 1. 0 [facility] Comment on above: Performed By: #### R ENAL #### [facility] [address] [place] [address] Dr. Madisyn Bentley URINE T PROTEIN CREAT RATIOo n 10-06-2022 Protein (U) [Mass/Vol] 47.8 mg/dL Critically high <=12.0 [facility] Comment on above: Performed By: #### U RTPCR #### [facility] [address] [place] [address] Dr. Madisyn Bentley UR PROT CREAT RAT 0.26 Normal [facility] Comment on above: Performed By: #### U RTPCR #### [facility] [address] [place] [address] Dr. Madisyn Betnley URINE CREAT 186.22 mg/dL Normal 20.00-300.0 0 [facility] Comment on above: Performed By: #### U RTPCR #### [facility] [address] [place] [address] Dr. Madisyn Bentley BNPon 09-10-2022 Natriuretic peptide B (Bld) [Mass/Vol] 92414.0 pg/mL Critically high <=1,800.0 [facility] Comment on above: Performed By: #### B SECURITY INTELLIGENCE ANALYST, HSTROPN #### [facility] [address] [place] [address] Dr. Madisyn Bentley CBC AUTO DIFFon 09-10-2022 BASO # 0.0 103/ul Normal 0.0-0.1 [facility] Comment on above: Performed By: #### R ENAL #### [facility] [address] [place] [address] Dr. Madisyn Bentley Basophils/100 WBC (Bld) 0.3 % Normal 0.2-2.0 [facility] Comment on above: Performed By: #### R ENAL #### [facility] [address] [place] [address] Dr. Madisyn Bentley EO # 0.3 103/ul Normal 0.0-0.7 [facility] Comment on above: Performed By: #### R ENAL #### [facility] [address] [place] [address] Dr. Madisyn Bentley Eosinophils/100 WBC (Bld) 2.4 % Normal 0.9-7.0 [facility] Comment on above: Performed By: #### R ENAL #### [facility] [address] [place] [address] Dr. Madisyn Bentley Erythrocyte distribution width (RBC) [Ratio] 13.3 % Normal 11.0-15.0 [facility] Comment on above: Performed By: #### R ENAL #### [facility] [address] [place] [address] Dr. Madisyn Bentley Hematocrit (Bld) [Volume fraction] 36.0 % Normal 36.0-48.0 [facility] Comment on above: Performed By: #### R ENAL #### [facility] [address] [place] [address] Dr. Madisyn Bentley Hemoglobin (Bld) [Mass/Vol] 11.2 g/dL Critically low 12.0-16.0 [facility] Comment on above: Performed By: #### R ENAL #### [facility] [address] [place] [address] Dr. Madisyn Bentley IG # 0.02 10e3/ul Normal 0.00-0.03 [facility] Comment on above: Performed By: #### R ENAL #### [facility] [address] [place] [address] Dr. Madisyn Bentley IG % 0.2 % Normal 0.0-0.5 [facility] Comment on above: Performed By: #### R ENAL #### [facility] [address] [place] [address] Dr. Madisyn Bentley LYMPH # 1.4 103/ul Normal 1.2-3.8 [facility] Comment on above: Performed By: #### R ENAL #### [facility] [address] [place] [address] Dr. Madisyn Bentley Lymphocytes/100 WBC (Bld) 13.3 % Critically low 20.5-60.0 [facility] Comment on above: Performed By: #### R ENAL #### [facility] [address] [place] [address] Dr. Madisyn Bentley MANUAL DIFF REQ NO Normal [facility] Comment on above: Performed By: #### R ENAL #### [facility] [address] [place] [address] Dr. Madisyn Bentley MCH (RBC) [Entitic mass] 28.9 pg Normal 26.7-34.0 [facility] Comment on above: Performed By: #### R ENAL #### [facility] [address] [place] [address] Dr. Madisyn Bentley MCHC (RBC) [Mass/Vol] 31.1 g/dL Normal 29.9-35.2 [facility] Comment on above: Performed By: #### R ENAL #### [facility] [address] [place] [address] Dr. Madisyn Bentley MCV (RBC) [Entitic vol] 92.8 fL Normal 81.0-99.0 [facility] Comment on above: Performed By: #### R ENAL #### [facility] [address] [place] [address] Dr. Madisyn Bentley MONO # 0.9 103/ul Critically high 0.3-0.8 [facility] Comment on above: Performed By: #### R ENAL #### [facility] [address] [place] [address] Dr. Madisyn Bentley Monocytes/100 WBC (Bld) 8.4 % Normal 1.7-12.0 [facility] Comment on above: Performed By: #### R ENAL #### [facility] [address] [place] [address] Dr. Madisyn Bentley NEUT # 8.1 103/ul Critically high 1.4-6.5 [facility] Comment on above: Performed By: #### R ENAL #### [facility] [address] [place] [address] Dr. Madisyn Bentley Neutrophils/100 WBC (Bld) 75.4 % Critically high 43.0-75.0 [facility] Comment on above: Performed By: #### R ENAL #### [facility] [address] [place] [address] Dr. Madisyn Bentley Platelet mean volume (Bld) [Entitic vol] 12.8 fL Normal 9.5-13.5 [facility] Comment on above: Performed By: #### R ENAL #### [facility] [address] [place] [address] Dr. Madisyn Bentley PLT 200 103/ul Normal 150-450 [facility] Comment on above: Performed By: #### R ENAL #### [facility] [address] [place] [address] Dr. Madisyn Bentley RBC 3.88 106/ul Critically low 4.20-5.40 [facility] Comment on above: Performed By: #### R ENAL #### [facility] [address] [place] [address] Dr. Madisyn Bentley WBC 10.8 103/ul Normal 4.0-11.0 [facility] Comment on above: Performed By: #### R ENAL #### [facility] [address] [place] [address] Dr. Madisyn Bentley Covid-19 PCR ([facility])on SARS-CoV-2 (COVID-19) RNA SUSAN+probe Ql (Unsp spec) Not detected Normal NOT DETECTED [facility] Comment on above: Result Comment: When [...] for this test is supported by the [place] of Health and Human Service's declaration that [...] Performed By: #### P T, PTT #### [facility] [address] [place] [address] Dr. Madisyn Bentley PROF 14(COMP METB)on 023 Albumin [Mass/Vol] 3.0 g/dL Critically low 3.4-5.0 [facility] Comment on above: Performed By: #### R ENAL #### [facility] [address] [place] [address] Dr. Madisyn Bentley Albumin/Globulin [Mass ratio] 0.8 {ratio} Normal [facility] Comment on above: Performed By: #### R ENAL #### [facility] [address] [place] [address] Dr. Madisyn Bentley ALP [Catalytic activity/Vol] 113 U/L Normal 46-116 [facility] Comment on above: Performed By: #### R ENAL #### [facility] [address] [address] [address] Madisyn Bentley ALT [Catalytic activity/Vol] 15 U/L Normal 14-59 [facility] Comment on above: Performed By: #### R ENAL #### [facility] [address] [address] [address] Madisyn Bentley Anion gap [Moles/Vol] 16.4 mmol/L Normal [facility] Comment on above: Performed By: #### R ENAL #### [facility] [address] [address] [address] Madisyn Bentley AST [Catalytic activity/Vol] 15 U/L Normal 15-37 [facility] Comment on above: Performed By: #### R ENAL #### [facility] [address] [place] [address] Dr. Madisyn Bentley Bilirubin [Mass/Vol] 0.6 mg/dL Normal 0.2-1.0 [facility] Comment on above: Performed By: #### R ENAL #### [facility] [address] [place] [address] Dr. Madisyn Bentley Calcium [Mass/Vol] 8.6 mg/dL Normal 8.5-10.1 [facility] Comment on above: Performed By: #### R ENAL #### [facility] [address] [place] [address] Dr. Madisyn Bentley Chloride [Moles/Vol] 102 mmol/L Normal 98-107 [facility] Comment on above: Performed By: #### R ENAL #### [facility] [address] [address] [address] Madisyn Bentley CO2 [Moles/Vol] 18.9 mmol/L Critically low 21.0-32.0 [facility] Comment on above: Performed By: #### R ENAL #### [facility] [address] [address] [address] Madisyn Bentley Creatinine [Mass/Vol] 1.95 mg/dL Critically high 0.55-1.02 [facility] Comment on above: Performed By: #### R ENAL #### [facility] [address] [address] [address] Madisyn Bentley EGFR-AF CHINESE 30 mL/min/1.73m2 Critically low >=60 [facility] Comment on above: Performed By: #### R ENAL #### [facility] [address] [address] [address] Madisyn Bentley EGFR-NON AF CHINESE 25 mL/min/1.73m2 Critically low >=60 [facility] Comment on above: Performed By: #### R ENAL #### [facility] [address] [address] [address] Madisyn Bentley Globulin (S) [Mass/Vol] 3.7 g/dL Normal [facility] Comment on above: Performed By: #### R ENAL #### [facility] [address] [address] [address] Madisyn Bentley Glucose [Mass/Vol] 190 mg/dL Critically high 74-106 [facility] Comment on above: Performed By: #### R ENAL #### [facility] [address] [address] [address] Madisyn Bentley Potassium [Moles/Vol] 4.3 mmol/L Normal 3.5-5.1 [facility] Comment on above: Performed By: #### R ENAL #### [facility] [address] [address] [address] Madisyn Bentley Protein [Mass/Vol] 6.7 g/dL Normal 6.4-8.2 [facility] Comment on above: Performed By: #### R ENAL #### [facility] [address] [address] [address] Madisyn Bentley Sodium [Moles/Vol] 133 mmol/L Critically low 136-145 [facility] Comment on above: Performed By: #### R ENAL #### [facility] [address] [address] [address] Madisyn Bentley Urea nitrogen [Mass/Vol] 51.0 mg/dL Critically high 7.0-18.0 [facility] Comment on above: Performed By: #### R ENAL #### [facility] [address] [place] [address] Dr. Madisyn Bentley Urea nitrogen/Creatinine [Mass ratio] 26.2 mg/mg Normal [facility] Comment on above: Performed By: #### R ENAL #### [facility] [address] [place] [address] Dr. Madisyn Bentley PROTIMEon 09-10-2022 INR Coag (PPP) [Relative time] 1.20 {INR} Normal [facility] Comment on above: Performed By: #### P T, PTT #### [facility] [address] [place] [address] Dr. Madisyn Bentley INR GUIDELINES SEE BELOW Normal [facility] Comment on above: Result Comment: ROMY RED INR: 2.0 - 3.0 CONDITIONS NOT LISTED BELOW 2.5 - 3.5 FOR PROSTHETIC HEART VALVE REPLACEMENT 2.5 - 3.5 RECURRENT THROMBOSIS Performed By: #### P T, PTT #### [facility] [address] [place] [address] Dr. Madisyn Bentley PT Coag (PPP) [Time] 12.6 s Critically high 9.0-11.6 [facility] Comment on above: Performed By: #### P T, PTT #### [facility] [address] [place] [address] Dr. Madisyn Bentley PTTon 09-10-2022 aPTT Coag (Bld) [Time] 36.0 s Normal 22.3-36.2 [facility] Comment on above: Performed By: #### P T, PTT #### [facility] [address] [place] [address] Dr. Madisyn Bentley TROPONIN, HIGH SENSITIVITYon 09-10-2022 HSTROP 79.4 pg/mL Critically high 4.0-51.3 [facility] Comment on above: Result Comment: CUT- OFF POINTS HAVE BEEN ESTABLISHED BASED ON THE FOURTH UNIVERSAL DEFINITIONS OF MYOCARDIAL INFARCTION. THE UPPER REFERENCE LIMIT (URL) OF TROPONIN, DEFINED THE 99TH PERCENTILE OF cTnI DISTRIBUTION IN A REFERENCE POPULATION, HAS BEEN CONFIRMED THE DECISION THRESHOLD FOR ND DIAGNOSIS. Performed By: #### B SECURITY INTELLIGENCE ANALYST, HSTROPN #### [facility] [address] [address] [address] Madisyn Bentley XR CHEST 1 Von [...] Kelli FLANNERY Date: 2022-09-10 04:58 Normal [facility] GLYCOHEMOGLOBIN A1Con 2021 ADA RECOMMENDATION SEE BELOW Normal [facility] Comment on above: Result Comment: ADA RECOMMENDED LIMIT 4.0 - 6.0 ADA THERAPEUTIC TARGET < 7.0 ACTION SUGGESTED > 7.0 Performed By: #### P T, PTT #### [facility] [address] [address] [address] Madisyn Bentley Glucose [Mass/Vol] 186 mg/dL Normal [facility] Comment on above: Performed By: #### P T, PTT #### [facility] [address] [address] [address] Madisyn Bentley HbA1c (Bld) [Mass fraction] 8.1 % Critically high 4.5-6.2 [facility] Comment on above: Performed By: #### P T, PTT #### [facility] [address] [address] [address] Madisyn Bentley US THYROIDon 05-24-2022 US [...] by: DIAMOND HILARIO Date: 2022-05-24 12:24 Normal [facility] MAMM SCREEN RT 3D CADon 1 MG MAMM SCREEN RT 3D CAD Patient: TRISHA PARISH Exam Date: 05/23/2022 : 1945 Gender:F Ordering : DR SANYA TINEO M.D. Admission #: [id number] Family : Order #: [id number] CLICK HERE TO VIEW EXAM RADIOLOGY REPORT [...] mastectomy and chemotherapy Family Cancers None LOCATION: [facility] BREAST COMPOSITION: Scattered areas fibroglandular density. [...] Hilario M.D. on 05/23/2022 at 10:38 Normal [facility] XR DEXA BONE DENSITYon 05-23 XR [...] by: DIAMOND HILARIO Date: 2022-05-23 19:25 Normal [facility] CBC AUTO DIFFon 05-16-2022 BASO # 0.0 103/ul Normal 0.0-0.1 [facility] Comment on above: Performed By: #### C BC #### [facility] [address] [address] [address] Madisyn Bentley Basophils/100 WBC (Bld) 0.4 % Normal 0.2-2.0 [facility] Comment on above: Performed By: #### C BC #### [facility] [address] [address] [address] Madisyn Bentley EO # 0.3 103/ul Normal 0.0-0.7 [facility] Comment on above: Performed By: #### C BC #### [facility] [address] [address] [address] Madisyn Bentley Eosinophils/100 WBC (Bld) 4.5 % Normal 0.9-7.0 [facility] Comment on above: Performed By: #### C BC #### [facility] [address] [place] [address] Dr. Madisyn Bentley Erythrocyte distribution width (RBC) [Ratio] 13.1 % Normal 11.0-15.0 [facility] Comment on above: Performed By: #### C BC #### [facility] [address] [place] [address] Dr. Madisyn Bentley Hematocrit (Bld) [Volume fraction] 37.9 % Normal 36.0-48.0 [facility] Comment on above: Performed By: #### C BC #### [facility] [address] [place] [address] Dr. Madisyn Bentley Hemoglobin (Bld) [Mass/Vol] 12.4 g/dL Normal 12.0-16.0 [facility] Comment on above: Performed By: #### C BC #### [facility] [address] [place] [address] Dr. Madisyn Bentley IG # 0.02 10e3/ul Normal 0.00-0.03 [facility] Comment on above: Performed By: #### C BC #### [facility] [address] [place] [address] Dr. Madisyn Bentley IG % 0.3 % Normal 0.0-0.5 [facility] Comment on above: Performed By: #### C BC #### [facility] [address] [place] [address] Dr. Madisyn Bentley LYMPH # 1.6 103/ul Normal 1.2-3.8 [facility] Comment on above: Performed By: #### C BC #### [facility] [address] [place] [address] Dr. Madisyn Bentley Lymphocytes/100 WBC (Bld) 22.0 % Normal 20.5-60.0 [facility] Comment on above: Performed By: #### C BC #### [facility] [address] [place] [address] Dr. Madisyn Bentley MANUAL DIFF REQ NO Normal [facility] Comment on above: Performed By: #### C BC #### [facility] [address] [address] [address] Madisyn Bentley MCH (RBC) [Entitic mass] 29.4 pg Normal 26.7-34.0 [facility] Comment on above: Performed By: #### C BC #### [facility] [address] [place] [address] Dr. Madisyn Bentley MCHC (RBC) [Mass/Vol] 32.7 g/dL Normal 29.9-35.2 [facility] Comment on above: Performed By: #### C BC #### [facility] [address] [place] [address] Dr. Madisyn Bentley MCV (RBC) [Entitic vol] 89.8 fL Normal 81.0-99.0 [facility] Comment on above: Performed By: #### C BC #### [facility] [address] [place] [address] Dr. Madisyn Bentley MONO # 0.5 103/ul Normal 0.3-0.8 [facility] Comment on above: Performed By: #### C BC #### [facility] [address] [place] [address] Dr. Madisyn Bentley Monocytes/100 WBC (Bld) 7.3 % Normal 1.7-12.0 [facility] Comment on above: Performed By: #### C BC #### [facility] [address] [place] [address] Dr. Madisyn Bentley NEUT # 4.9 103/ul Normal 1.4-6.5 [facility] Comment on above: Performed By: #### C BC #### [facility] [address] [place] [address] Dr. Madisyn Bentley Neutrophils/100 WBC (Bld) 65.5 % Normal 43.0-75.0 [facility] Comment on above: Performed By: #### C BC #### [facility] [address] [place] [address] Dr. Madisyn Bentley Platelet mean volume (Bld) [Entitic vol] 12.1 fL Normal 9.5-13.5 [facility] Comment on above: Performed By: #### C BC #### [facility] [address] [address] [address] Madisyn Bentley PLT 171 103/ul Normal 150-450 [facility] Comment on above: Performed By: #### C BC #### [facility] [address] [place] [address] Dr. Madisyn Bentley RBC 4.22 106/ul Normal 4.20-5.40 [facility] Comment on above: Performed By: #### C BC #### [facility] [address] [address] [address] Madisyn Bentley WBC 7.4 103/ul Normal 4.0-11.0 [facility] Comment on above: Performed By: #### C BC #### [facility] [address] [place] [address] Dr. Madisyn Bentley LIPID PROFILEon 05-16-2022 CHOL-HDL RATIO NORM SEE BELOW Normal [facility] Comment on above: Result Comment: 3.3 - 4.4 LOW RISK 4.4 - 7.1 AVERAGE RISK 7.1 - 11.0 MODERATE RISK >11.0 HIGH RISK Performed By: #### P T, PTT #### [facility] [address] [place] [address] Dr. Madisyn Bentley Cholesterol [Mass/Vol] 132 mg/dL Normal <=200 [facility] Comment on above: Performed By: #### P T, PTT #### [facility] [address] [place] [address] Dr. Madisyn Bentley Cholesterol in HDL [Mass/Vol] 44 mg/dL Normal 40-60 [facility] Comment on above: Performed By: #### P T, PTT #### [facility] [address] [place] [address] Dr. Madisyn Bentley Cholesterol in LDL [Mass/Vol] 59.6 mg/dL Normal [facility] Comment on above: Performed By: #### P T, PTT #### [facility] [address] [place] [address] Dr. Madisyn Bentley Cholesterol.total/C holesterol in HDL [Mass ratio] 3.0 {ratio} Normal [facility] Comment on above: Performed By: #### P T, PTT #### [facility] [address] [address] [address] Madisyn Bentley HDL NORMAL > or = 60 mg/dl - LO W CARDIOVASCULAR RISK <40 mg/dl - HIGH CARDIOVASCULAR RISK Normal [facility] Comment on above: Performed By: #### P T, PTT #### [facility] [address] [address] [address] Madisyn Bentley LDL CALC NORMAL SEE BELOW Normal [facility] Comment on above: Result Comment: <100 mg/dl OPTIMAL 100 - 129 mg/dl NEAR OR ABOVE OPTIMAL 130 - 159 mg/dl BORDERLINE HIGH 160 - 189 mg/dl HIGH >190 mg/dl VERY HIGH Performed By: #### P T, PTT #### [facility] [address] [place] [address] Dr. Madisyn Bentley Triglyceride [Mass/Vol] 142 mg/dL Normal <=150 [facility] Comment on above: Performed By: #### P T, PTT #### [facility] [address] [place] [address] Dr. Madisyn Bentley VLDL CALC 28.4 mg/dL Normal [facility] Comment on above: Performed By: #### P T, PTT #### [facility] [address] [place] [address] Dr. Madisyn Bentley PROF 14(COMP METB)on 022 Albumin [Mass/Vol] 3.8 g/dL Normal 3.4-5.0 [facility] Comment on above: Performed By: #### P T, PTT #### [facility] [address] [place] [address] Dr. Madisyn Bentley Albumin/Globulin [Mass ratio] 1.1 {ratio} Normal [facility] Comment on above: Performed By: #### P T, PTT #### [facility] [address] [place] [address] Dr. Madisyn Bentley ALP [Catalytic activity/Vol] 158 U/L Critically high 46-116 [facility] Comment on above: Performed By: #### P T, PTT #### [facility] [address] [place] [address] Dr. Madisyn Bentley ALT [Catalytic activity/Vol] 24 U/L Normal 14-59 [facility] Comment on above: Performed By: #### P T, PTT #### [facility] [address] [address] [address] Madisyn Bentley Anion gap [Moles/Vol] 14.1 mmol/L Normal [facility] Comment on above: Performed By: #### P T, PTT #### [facility] [address] [address] [address] Madisyn Bentley AST [Catalytic activity/Vol] 12 U/L Critically low 15-37 [facility] Comment on above: Performed By: #### P T, PTT #### [facility] [address] [place] [address] Dr. Madisyn Bentley Bilirubin [Mass/Vol] 0.7 mg/dL Normal 0.2-1.0 [facility] Comment on above: Performed By: #### P T, PTT #### [facility] [address] [place] [address] Dr. Madisyn Bentley Calcium [Mass/Vol] 8.9 mg/dL Normal 8.5-10.1 [facility] Comment on above: Performed By: #### P T, PTT #### [facility] [address] [place] [address] Dr. Madisyn Bentley Chloride [Moles/Vol] 105 mmol/L Normal 98-107 [facility] Comment on above: Performed By: #### P T, PTT #### [facility] [address] [place] [address] Dr. Madisyn Bentley CO2 [Moles/Vol] 23.4 mmol/L Normal 21.0-32.0 [facility] Comment on above: Performed By: #### P T, PTT #### [facility] [address] [address] [address] Madisyn Bentley Creatinine [Mass/Vol] 1.64 mg/dL Critically high 0.55-1.02 [facility] Comment on above: Performed By: #### P T, PTT #### [facility] [address] [address] [address] Madisyn Bentley EGFR-AF CHINESE 37 mL/min/1.73m2 Critically low >=60 [facility] Comment on above: Performed By: #### P T, PTT #### [facility] [address] [address] [address] Madisyn Bentley EGFR-NON AF CHINESE 30 mL/min/1.73m2 Critically low >=60 [facility] Comment on above: Performed By: #### P T, PTT #### [facility] [address] [address] [address] Madisyn Bentley Globulin (S) [Mass/Vol] 3.5 g/dL Normal [facility] Comment on above: Performed By: #### P T, PTT #### [facility] [address] [place] [address] Dr. Madisyn Bentley Glucose [Mass/Vol] 222 mg/dL Critically high 74-106 [facility] Comment on above: Performed By: #### P T, PTT #### [facility] [address] [place] [address] Dr. Madisyn Bentley Potassium [Moles/Vol] 4.5 mmol/L Normal 3.5-5.1 [facility] Comment on above: Performed By: #### P T, PTT #### [facility] [address] [place] [address] Dr. Madisyn Bentley Protein [Mass/Vol] 7.3 g/dL Normal 6.4-8.2 [facility] Comment on above: Performed By: #### P T, PTT #### [facility] [address] [place] [address] Dr. Madisyn Bentley Sodium [Moles/Vol] 138 mmol/L Normal 136-145 [facility] Comment on above: Performed By: #### P T, PTT #### [facility] [address] [place] [address] Dr. Madisyn Bentley Urea nitrogen [Mass/Vol] 35.0 mg/dL Critically high 7.0-18.0 [facility] Comment on above: Performed By: #### P T, PTT #### [facility] [address] [address] [address] Madisyn Bentley Urea nitrogen/Creatinine [Mass ratio] 21.3 mg/mg Normal [facility] Comment on above: Performed By: #### P T, PTT #### [facility] [address] [address] [address] Madisyn Bentley RENAL FUNCTION PANELon 04-07 Albumin [Mass/Vol] 3.5 g/dL Normal 3.4-5.0 [facility] Comment on above: Performed By: #### R ENAL #### [facility] [address] [address] [address] Madisyn Bentley Calcium [Mass/Vol] 8.1 mg/dL Critically low 8.5-10.1 [facility] Comment on above: Performed By: #### R ENAL #### [facility] [address] [address] [address] Madisyn Bentley Chloride [Moles/Vol] 110 mmol/L Critically high 98-107 [facility] Comment on above: Performed By: #### R ENAL #### [facility] [address] [address] [address] Madisyn Bentley CO2 [Moles/Vol] 20.2 mmol/L Critically low 21.0-32.0 [facility] Comment on above: Performed By: #### R ENAL #### [facility] [address] [address] [address] Madisyn Bentley Creatinine [Mass/Vol] 1.89 mg/dL Critically high 0.55-1.02 [facility] Comment on above: Performed By: #### R ENAL #### [facility] [address] [address] [address] Madisyn Bentley EGFR-AF CHINESE 31 mL/min/1.73m2 Critically low >=60 [facility] Comment on above: Performed By: #### R ENAL #### [facility] [address] [address] [address] Madisyn Bentley EGFR-NON AF CHINESE 26 mL/min/1.73m2 Critically low >=60 [facility] Comment on above: Performed By: #### R ENAL #### [facility] [address] [address] [address] Madisyn Bentley Glucose [Mass/Vol] 149 mg/dL Critically high 74-106 [facility] Comment on above: Performed By: #### R ENAL #### [facility] [address] [address] [address] Madisyn Bentley Phosphate [Mass/Vol] 3.4 mg/dL Normal 2.6-4.7 [facility] Comment on above: Performed By: #### R ENAL #### [facility] [address] [address] [address] Madisyn Bentley Potassium [Moles/Vol] 4.5 mmol/L Normal 3.5-5.1 [facility] Comment on above: Performed By: #### R ENAL #### [facility] [address] [address] [address] Madisyn Bentley Sodium [Moles/Vol] 141 mmol/L Normal 136-145 [facility] Comment on above: Performed By: #### R ENAL #### [facility] [address] [address] [address] Madisyn Bentley Urea nitrogen [Mass/Vol] 34.0 mg/dL Critically high 7.0-18.0 [facility] Comment on above: Performed By: #### R ENAL #### [facility] [address] [address] [address] Madisyn Bentley UA RANDOMon 04-07-2022 Bilirubin Ql (U) Negative Normal NEGATIVE [facility] Comment on above: Performed By: #### U A #### [facility] [address] [address] [address] Madisyn Bentley Clarity (U) CLEAR Normal CLEAR [facility] Comment on above: Performed By: #### U A #### [facility] [address] [place] [address] Dr. Madisyn Bentley Color (U) LT. YELLOW Normal YELLOW [facility] Comment on above: Performed By: #### U A #### [facility] [address] [place] [address] Dr. Madisyn Bentley Glucose Ql (U) Negative Normal NEGATIVE [facility] Comment on above: Performed By: #### U A #### [facility] [address] [address] [address] Madisyn Bentley Hemoglobin Ql (U) Negative Normal NEGATIVE [facility] Comment on above: Performed By: #### U A #### [facility] [address] [place] [address] Dr. Madisyn Bentley Ketones Ql (U) Negative Normal NEGATIVE [facility] Comment on above: Performed By: #### U A #### [facility] [address] [place] [address] Dr. Madisyn Bentley LEUKOCYTES TRACE Abnormal NEGATIVE [facility] Comment on above: Performed By: #### U A #### [facility] [address] [place] [address] Dr. Madisyn Bentley Nitrite Ql (U) Negative Normal NEGATIVE [facility] Comment on above: Performed By: #### U A #### [facility] [address] [place] [address] Dr. Madisyn Bentley pH (U) 5.5 [pH] Normal 5-9 [facility] Comment on above: Performed By: #### U A #### [facility] [address] [place] [address] Dr. Madisyn Bentley SPEC GRAVITY 1.020 Normal 1.005-<=1.[address] [place] [address] Comment on above: Performed By: #### U A #### [facility] [address] [place] [address] Dr. Madisyn Bentley UA PROTEIN Negative Normal NEGATIVE/ TRACE [facility] Comment on above: Performed By: #### U A #### [facility] [address] [place] [address] Dr. Madisyn Bentley Urobilinogen Qn (U) 0.2 {Luis Eduardo'U}/dL Normal 0.2 - 1. 0 [facility] Comment on above: Performed By: #### U A #### [facility] [address] [place] [address] Dr. Madisyn Bentley URINE T PROTEIN CREAT RATIOo n 04-07-2022 Protein (U) [Mass/Vol] 25.7 mg/dL Critically high <=12.0 [facility] Comment on above: Performed By: #### P T, PTT #### [facility] [address] [address] [address] Madisyn Bentley UR PROT CREAT RAT 0.29 Normal [facility] Comment on above: Performed By: #### P T, PTT #### [facility] [address] [address] [address] Madisyn Bentley URINE CREAT 89.48 mg/dL Normal 20.00-300.0 0 [facility] Comment on above: Performed By: #### P T, PTT #### [facility] [address] [place] [address] Dr. Madisyn Bentley RENAL FUNCTION PANELon 11-25 Albumin [Mass/Vol] 3.7 g/dL Normal 3.4-5.0 [facility] Comment on above: Performed By: #### R ENAL #### [facility] [address] [place] [address] Dr. Madisyn Bentley Calcium [Mass/Vol] 8.6 mg/dL Normal 8.5-10.1 [facility] Comment on above: Performed By: #### R ENAL #### [facility] [address] [place] [address] Dr. Madisyn Bentley Chloride [Moles/Vol] 107 mmol/L Normal 98-107 [facility] Comment on above: Performed By: #### R ENAL #### [facility] [address] [place] [address] Dr. Madisyn Bentley CO2 [Moles/Vol] 23.3 mmol/L Normal 22.0-30.0 [facility] Comment on above: Performed By: #### R ENAL #### [facility] [address] [place] [address] Dr. Madisyn Bentley Creatinine [Mass/Vol] 1.56 mg/dL Critically high 0.55-1.02 [facility] Comment on above: Performed By: #### R ENAL #### [facility] [address] [address] [address] Madisyn Bentley EGFR-AF CHINESE 39 mL/min/1.73m2 Critically low >=60 [facility] Comment on above: Performed By: #### R ENAL #### [facility] [address] [address] [address] Madisyn Bentley EGFR-NON AF CHINESE 32 mL/min/1.73m2 Critically low >=60 [facility] Comment on above: Performed By: #### R ENAL #### [facility] [address] [address] [address] Madisyn Bentley Glucose [Mass/Vol] 106 mg/dL Normal 74-106 [facility] Comment on above: Performed By: #### R ENAL #### [facility] [address] [address] [address] Madisyn Bentley Phosphate [Mass/Vol] 3.8 mg/dL Normal 2.5-4.5 [facility] Comment on above: Performed By: #### R ENAL #### [facility] [address] [address] [address] Madisyn Bentley Potassium [Moles/Vol] 4.5 mmol/L Normal 3.4-5.0 [facility] Comment on above: Performed By: #### R ENAL #### [facility] [address] [address] [address] Madisyn Bentley Sodium [Moles/Vol] 141 mmol/L Normal 137-145 [facility] Comment on above: Performed By: #### R ENAL #### [facility] [address] [address] [address] Madisyn Bentley Urea nitrogen [Mass/Vol] 27.0 mg/dL Critically high 7.0-18.0 [facility] Comment on above: Performed By: #### R ENAL #### [facility] [address] [address] [address] Madisyn Bentley UA RANDOMon 11-25-2021 Bilirubin Ql (U) Negative Normal NEGATIVE [facility] Comment on above: Performed By: #### P T, PTT #### [facility] [address] [place] [address] Dr. Madisyn Bentley Clarity (U) CLEAR Normal CLEAR [facility] Comment on above: Performed By: #### P T, PTT #### [facility] [address] [place] [address] Dr. Madisyn Bentley Color (U) LT. YELLOW Normal YELLOW [facility] Comment on above: Performed By: #### P T, PTT #### [facility] [address] [place] [address] Dr. Madisyn Bentley Glucose Ql (U) Negative Normal NEGATIVE [facility] Comment on above: Performed By: #### P T, PTT #### [facility] [address] [place] [address] Dr. Madisyn Bentley Hemoglobin Ql (U) Negative Normal NEGATIVE [facility] Comment on above: Performed By: #### P T, PTT #### [facility] [address] [place] [address] Dr. Madisyn Bentley Ketones Ql (U) Negative Normal NEGATIVE [facility] Comment on above: Performed By: #### P T, PTT #### [facility] [address] [place] [address] Dr. Madisyn Bentley LEUKOCYTES Negative Normal NEGATIVE [facility] Comment on above: Performed By: #### P T, PTT #### [facility] [address] [place] [address] Dr. Madisyn Bentley Nitrite Ql (U) Negative Normal NEGATIVE [facility] Comment on above: Performed By: #### P T, PTT #### [facility] [address] [place] [address] Dr. Madisyn Bentley pH (U) 5.5 [pH] Normal 5-9 [facility] Comment on above: Performed By: #### P T, PTT #### [facility] [address] [place] [address] Dr. Madisyn Bentley SPEC GRAVITY 1.015 Normal 1.005-<=1.0 25 [facility] Comment on above: Performed By: #### P T, PTT #### [facility] [address] [place] [address] Dr. Madisyn Bentley UA PROTEIN Negative Normal NEGATIVE/ TRACE [facility] Comment on above: Performed By: #### P T, PTT #### [facility] [address] [place] [address] Dr. Madisyn Bentley Urobilinogen Qn (U) 0.2 {Luis Eduardo'U}/dL Normal 0.2 - 1. 0 [facility] Comment on above: Performed By: #### P T, PTT #### [facility] [address] [place] [address] Dr. Madisyn Bentley URINE T PROTEIN CREAT RATIOo n 11-25-2021 Protein (U) [Mass/Vol] 20.5 mg/dL Critically high <=12.0 [facility] Comment on above: Performed By: #### U RTPCR #### [facility] [address] [place] [address] Dr. Madisyn Bentley UR PROT CREAT RAT 0.25 Normal [facility] Comment on above: Performed By: #### U RTPCR #### [facility] [address] [place] [address] Dr. Madisyn Bentley URINE CREAT 81.12 mg/dL Normal 20.00-300.0 0 [facility] Comment on above: Performed By: #### U RTPCR #### [facility] [address] [place] [address] Dr. Madisyn Bentley CYTOLOGYon 06-21-2021 CYTOLOGY Specimen #: [id number] Submitting Physician: ABNER WHEELER MD SPECIMEN [...] EYE, VITREOUS FINE NEEDLE ASPIRATE THIN PREP Non-English Adjunct Faculty Date of Report: 06/22/2021 Date of Procedure: 06/21/2021 Date of Receipt: 06/22/2021 Submitted by: ABNER WHEELER MD Location: Diagnostic interpretation performed at [facility], [address] [place] [address]. CLIA Number: [id number] Normal [facility] Comment on above: Performed By: #### C #### See report for performing lab information. CNOVSPon 04-15-2018 CNOVSP Visit (SP) Office ([facility]) -------JEMTRISHA ([id number]) 1945 FDate Time Provider Department04/15/18 2:15 PM ROXANN ONEAL HEMACL During your visit today, we recorded the following information about you: Temperature Pulse Respiration Blood pressure 98.2 degrees 66/minute 16/minute 147/69 Weight Height 80.9 kg 1.626 mMINDY OLIVE ONEAL PA-C 04/15/2018 3:44 PM SignedPatient: Trisha Parish [facility] 1945 Attending Physician: Dr. Sadi Nolan: April [...] of lymph node dissection. The tumor was ER/MD positive,HER-2 positve. Ultimately the patient had to [...] questions or concernsJORDON SHAY-CReferring Provider: SADI WALLACE [[id number]]Allergies As of Date: 04/15/2018(No Known Allergies)Date Reviewed: 04/15/2018Reviewed by: Roxann Oneal - Fully AssessedReason for Visit: Breast Cancer [519] Cmt: follow upPrimary Visit Diagnosis:Malignant neoplasm of left breast in female, estrogen receptor positive, unspecified site of breast (HCC) [C50.912, Z17.0]Order(s):[facility] [[id number]] Order #: [id number] FUTUREDisposition: Return in about 1 year (around [...] Status:Closed by ROXANN ONEAL on 04/15/18 Normal [facility] PROGRESSon 04-15-2018 Protein mass conc HNO ID: [id number] thor: Roxann Smithervice: (none)Author Type: Physician AssistantType: Progress NotesFiled: 04/15/2018 3:44 PMNote Text:Patient: Trisha Parish [facility] 1945 Attending Physician: Dr. Sadi Sotoate: April [...] time of lymph node dissection. The tumor wasER/MD positive, HER-2 positve. Ultimately the patient had [...] with questions or concernsROXANN ONEAL PA-C Normal [facility] MAMM OUTSIDE DICOM IMPORT -N BNRon 04-05-2018 MAMM OUTSIDE DICOM IMPORT -NBNR Images were obtained outside of [facility] [id number] Normal [facility] Social History Date Type Detail Facility Start: 12-20-2023 End: 01-03-2024 Alcoholic beverage intake Lifetime non-drinker (finding) [facility] Work Phone: Start: 12-20-2023 Sexual orientation Heterosexual (finding) [facility] Work Phone: Start: 12-10-2023 End: 01-07-2024 Exposure to SARS-CoV-2 (event) Not sure [facility] Work Phone: Start: 08-28-2023 Alcohol intake Ex-drinker (finding) [facility] Start: 07-24-2023 End: 01-03-2024 Sex Assigned At [facility] Other Start: 07-24-2023 End: 01-17-2024 Tobacco smoking status NHIS Never smoked tobacco [facility] Start: 07-24-2023 End: 12-20-2023 Tobacco use and exposure Smokeless tobacco non-user [facility] Start: 07-24-2023 End: 01-03-2024 History of Social function [facility] Start: 1945 Sex Assigned At Not on file [facility] Start: 1945 Sex Assigned At Female [facility] Unknown if ever smoked [facility] [place] Other Vital Signs Date Time Vital Sign Value Performing Clinician Faci lity 02-01-2024 10:13-0400 Body height 152.4 cm MD Sanya Tineo Work Phone: [facility] 02-01-2024 10:13-0400 Body mass index (BMI) [Ratio] 24 kg/m2 MD Sanya Tineo Work Phone: [facility] 02-01-2024 10:13-0400 Body temperature 97.6 [degF] MD Sanya Tineo Work Phone: [facility] 02-01-2024 10:13-0400 Body weight 55.79 kg MD Sanya Tineo Work Phone: [facility] 02-01-2024 10:13-0400 Diastolic blood pressure 39 mm[Hg] MD Sanya Tineo Work Phone: [facility] 02-01-2024 10:13-0400 Heart rate 78 /min MD Sanya Tineo Work Phone: [facility] 02-01-2024 10:13-0400 Respiratory rate 20 /min MD Sanya Tineo Work Phone: [facility] 02-01-2024 10:13-0400 SaO2% (BldA) [Mass fraction] 98 % MD Sanya Tineo Work Phone: [facility] 02-01-2024 10:13-0400 Systolic blood pressure 80 mm[Hg] MD Sanya Tineo Work Phone: [facility] 01-28-2024 14:58-0400 Body height 152.4 cm MD Sanya Tineo Work Phone: [facility] 01-28-2024 14:58-0400 Body mass index (BMI) [Ratio] 24 kg/m2 MD Sanya Tineo Work Phone: [facility] 01-28-2024 14:58-0400 Body temperature 97.9 [degF] MD Sanya Tineo Work Phone: [facility] 01-28-2024 14:58-0400 Body weight 56 kg MD Sanya Tineo Work Phone: [facility] 01-28-2024 14:58-0400 Diastolic blood pressure 68 mm[Hg] MD Sanya Tineo Work Phone: [facility] 01-28-2024 14:58-0400 Heart rate 74 /min MD Sanya Tineo Work Phone: [facility] 01-28-2024 14:58-0400 Systolic blood pressure 116 mm[Hg] MD Sanya Tineo Work Phone: [facility] 01-17-2024 14:18-0400 Body temperature 97.8 [degF] MD Sanya Tineo Work Phone: [facility] 01-17-2024 14:18-0400 Body weight 56.69 kg MD Sanya Tineo Work Phone: [facility] 01-17-2024 14:18-0400 Diastolic blood pressure 61 mm[Hg] MD Sanya Tineo Work Phone: [facility] 01-17-2024 14:18-0400 Heart rate 73 /min MD Sanya Tineo Work Phone: [facility] 01-17-2024 14:18-0400 Respiratory rate 16 /min MD Sanya Tineo Work Phone: [facility] 01-17-2024 14:18-0400 SaO2% (BldA) [Mass fraction] 98 % MD Sanya Tineo Work Phone: [facility] 01-17-2024 14:18-0400 Systolic blood pressure 106 mm[Hg] MD Sanya Tineo Work Phone: [facility] 01-03-2024 12:55-0400 Body height 157.5 cm Edwardo Hanna MD Work Phone: [facility] 01-03-2024 12:55-0400 Body mass index (BMI) [Ratio] 23.3 kg/m2 Edwardo Hanna MD Work Phone: [facility] 01-03-2024 12:55-0400 Body temperature 97 [degF] Edwardo Hanna MD Work Phone: [facility] 01-03-2024 12:55-0400 Body weight 57.8 kg Edwardo Hanna MD Work Phone: [facility] 01-03-2024 12:55-0400 Diastolic blood pressure 46 mm[Hg] Edwardo Hanna MD Work Phone: [facility] 01-03-2024 12:55-0400 Heart rate 69 /min Edwardo Hanna MD Work Phone: [facility] 01-03-2024 12:55-0400 Respiratory rate 20 /min Edwardo Hanna MD Work Phone: [facility] 01-03-2024 12:55-0400 SaO2% (BldA) [Mass fraction] 99 % Edwardo Hanna MD Work Phone: [facility] 01-03-2024 12:55-0400 Systolic blood pressure 108 mm[Hg] Edwardo Hanna MD Work Phone: [facility] 12-20-2023 15:09-0400 Body temperature 98.4 [degF] Smooth Coelho MD Work Phone: [facility] 12-20-2023 15:09-0400 Diastolic blood pressure 78 mm[Hg] Smooth Coelho MD Work Phone: [facility] 12-20-2023 15:09-0400 Heart rate 73 /min Smooth Coelho MD Work Phone: [facility] 12-20-2023 15:09-0400 Respiratory rate 18 /min Smooth Coelho MD Work Phone: [facility] 12-20-2023 15:09-0400 SaO2% (BldA) [Mass fraction] 97 % Smooth Coelho MD Work Phone: [facility] 12-20-2023 15:09-0400 Systolic blood pressure 142 mm[Hg] Smooth Coelho MD Work Phone: [facility] 12-20-2023 11:15-0400 Body height 162.6 cm Smooth Coelho MD Work Phone: [facility] 12-20-2023 11:15-0400 Body mass index (BMI) [Ratio] 24.03 kg/m2 Smooth Coelho MD Work Phone: [facility] 12-20-2023 11:15-0400 Body weight 63.5 kg Smooth Coelho MD Work Phone: [facility] 12-05-2023 10:040400 Body height 153.67 cm MD Sanya Tineo Work Phone: [facility] 12-05-2023 10:04-0400 Body mass index (BMI) [Ratio] 25.8 kg/m2 MD Sanya Tineo Work Phone: [facility] 12-05-2023 10:04-0400 Body weight 61 kg MD Sanya Tineo Work Phone: [facility] 12-05-2023 10:04-0400 Diastolic blood pressure 54 mm[Hg] MD Sanya Tineo Work Phone: [facility] 12-05-2023 10:04-0400 Heart rate 69 /min MD Sanya Tinoe Work Phone: [facility] 12-05-2023 10:04-0400 Systolic blood pressure 89 mm[Hg] MD Sanya Tineo Work Phone: [facility] 07-17-2023 11:00-0500 Body height 153.67 cm Sanya Tineo Other [facility] Other 07-17-2023 11:00-0500 Body mass index (BMI) [Ratio] 28.5 kg/m2 Sanya Tineo Other [employer] Other 07-17-2023 11:00-0500 Body weight 67.31 kg Sanya Tineo Other [employer] Other 07-17-2023 11:00-0500 Diastolic blood pressure 65 mm[Hg] Sanya Tineo Other [employer] Other 07-17-2023 11:00-0500 Systolic blood pressure 121 mm[Hg] Sanya Tineo Other [employer] Other 05-11-2023 11:30-0400 Body height 153.67 cm Sanya Tineo Other [employer] Other 05-11-2023 11:30-0400 Body mass index (BMI) [Ratio] 27.27 kg/m2 Sanya Tineo Other [employer] Other 05-11-2023 11:30-0400 Body weight 64.41 kg Sanya Tineo Other [employer] Other 05-11-2023 11:30-0400 Diastolic blood pressure 61 mm[Hg] Sanya Tineo Other [employer] Other 05-11-2023 11:30-0400 SaO2% (BldA) [Mass fraction] 97 % Sanya Tineo Other [employer] Other 05-11-2023 11:30-0400 Systolic blood pressure 107 mm[Hg] Sanya Tineo Other [employer] Other 04-17-2023 10:45-0400 Body height 153.67 cm Sanya Tineo Other [employer] Other 04-17-2023 10:45-0400 Body mass index (BMI) [Ratio] 27.89 kg/m2 Sanya Tineo Other [employer] Other 04-17-2023 10:45-0400 Body weight 65.86 kg Sanya Tineo Other [employer] Other 04-17-2023 10:45-0400 Diastolic blood pressure 72 mm[Hg] Sanya Tineo Other [employer] Other 04-17-2023 10:45-0400 Respiratory rate 12 /min Sanya Tineo Other [employer] Other 04-17-2023 10:45-0400 Systolic blood pressure 133 mm[Hg] Sanya Tineo Other [employer] Other 02-09-2023 11:00-0400 Body height 153.67 cm Sanya Tineo Other [employer] Other 02-09-2023 11:00-0400 Body mass index (BMI) [Ratio] 27.47 kg/m2 Sanya Tineo Other [employer] Other 02-09-2023 11:00-0400 Body weight 64.86 kg Sanya Tineo Other [employer] Other 02-09-2023 11:00-0400 Diastolic blood pressure 62 mm[Hg] Sanya Tineo Other [employer] Other 02-09-2023 11:00-0400 SaO2% (BldA) [Mass fraction] 98 % Sanya Tineo Other [employer] Other 02-09-2023 11:00-0400 Systolic blood pressure 125 mm[Hg] Sanya Tineo Other [employer] Other 09-08-2022 11:30-0500 Body height 153.67 cm Sanya Tineo Other [employer] Other 09-08-2022 11:30-0500 Body mass index (BMI) [Ratio] 29.77 kg/m2 Sanya Tineo Other [employer] Other 09-08-2022 11:30-0500 Body weight 70.31 kg Sanya Tineo Other [employer] Other 09-08-2022 11:30-0500 Diastolic blood pressure 58 mm[Hg] Sanya Tineo Other [employer] Other 09-08-2022 11:30-0500 SaO2% (BldA) [Mass fraction] 97 % Sanya Tineo Other [employer] Other 09-08-2022 11:30-0500 Systolic blood pressure 110 mm[Hg] Sanya Tineo Other [facility] Other Clinical Notes 06-21-2021 to 01-03-2024 Edwardo Hanna [...] Referral placed to Keyla Lua MD at [place] - Labs today including CBC, CMP, CEA, CA 19-9, lipase, amylase, [id number] I have placed all orders as outlined above. I advised the patient to schedule the tests and follow-up appointment as discussed by contacting the community outreach specialist on the way out or calling by [...] Eventually patient was referred to GI at [facility] s/p EGD 12/20/23 that revealed [...] Image CT AP without contrast completed at [facility] Seen and discussed with Dr. Hanna. Arabella Draper MD Hem Onc, PGY-5 documented in this encounter [facility] Work Phone: 12-20-2023 Hospital Discharge instructions Smooth [...] having your procedure, call the [facility] to be advised whether a visit to [...] or looks infected. documented in this encounter [facility] Work Phone: 12-20-2023 Miscellaneous Notes Patient: Trisha Parish Pre-sedation Evaluation: Sedation necessary for: Immobility and Analgesia Requesting service: GI SERVICE History of Present Illness: ACUTE PANCREATITIS, ELEVATED LFTS No past medical history on file. Principle problems: There are no problems to display for this patient. Allergies: Allergies Allergen Reactions Demerol [Meperidine] Psychosis MOLD CHECKER/Current Medications: (Not in a hospital admission) Current [...] ASA 3 Moderate documented in this encounter [facility] Work Phone: 12-20-2023 Note Formatting of this n ote is different from the original. Patient: Trisha Parish Pre-sedation Evaluation: Sedation necessary for: Immobility and Analgesia Requesting service: GI SERVICE History of Present Illness: ACUTE PANCREATITIS, ELEVATED LFTS No past medical history on file. Principle problems: There are no problems to display for this patient. Allergies: Allergies Allergen Reactions Demerol [Meperidine] Psychosis MOLD CHECKER/Current Medications: (Not in a hospital admission) Current [...] clear to auscultation Plan ASA 3 Moderate [facility] Work Phone: 11-30-2023 Note [place] Cardiology - [facility] Subjective Trisha Parish is [...] In September 2022 she was admitted to [facility] with weakness. She was found [...] presented to the emergency room at the [facility] with dizziness and low blood [...] No swelling. Cervi (more content not included)... [facility] 08-28-2023 Note Time Out 08/28/2023. 2:47 PM. Confirmed correct patient, procedure, site, and patient consented. Anesthesia Topical anesthesia was used. Anesthetic medications included Lidocaine 2%, Proparacaine 0.5%. Procedure Preparation included 5% betadine to ocular surface, eyelid speculum. Injection: 1.25 mg bevacizumab 100 MG/4ML Route: Intravitreal, Site: Left Eye [facility]: 94500-499-22, Lot: [id number], Expiration date: 10/24/2023, Waste: 0 mL Post-op [...] increased pain, redness, decreased vision or concerns. [facility] 08-28-2023 History of Present illness Narrative Images [...] 100 MG/4ML Route: Intravitreal, Site: Left Eye [facility]: 74210-190-70, Lot: [id number], Expiration date: 10/24/2023, Waste: 0 mL Post-op [...] vision or concerns. documented in this encounter [facility] 07-17-2023 Evaluation note Encounter Date Diagnosis [...] Z85.3) Handwrote rx for prothesis bra #3 [employer] Other 10-13-2023 NoteUT Cardiology - [facility] Clinic Subjective Trisha Parish is [...] In September 2022 she was admitted to [facility] with weakness. She was found [...] presented to the emergency room at the [facility] with dizziness and low blood [...] and dry. Neurological: General (more content not included)...[facility] 05-11-2023 Evaluation note* Encounter Date Diagnosis Assessment Notes Treatment Notes Treatment Clinical Notes May, Bronchitis (ICD-10 - J40) Complete course of antibiotics. Discussed steroids for dyspnea. was recently ill as well. ER if symptoms worsen or fevers begin over weekend. [facility] Other 10-03-2023 Evaluation note* Encounter Date Diagnosis Assessment Notes Treatment Notes Treatment Clinical Notes May, Cough, unspecified type (ICD-10 - R05.9) [facility] Other 09-12-2023 Evaluation note* Encounter Date Diagnosis Assessment Notes Treatment Notes Treatment Clinical Notes Apr, Other specified postprocedural states (ICD-10 - Z98.890) s/p Aortic valve repair - doing very well. Energy is improving. 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 She was found [...] presented to the emergency room at the [facility] with dizziness and low blood [...] Behavior: Behavior is cooperati (more content not included)...[facility]08-30-2023 NoteSubjective Patient lying in bed without complaints. Denies chest pain or palpitations. V pacing on ECG monitor. Denies shortness of breath. No supplemental oxygen requirements. Denies numbness, tingling, and weakness to bilateral upper and lower extremities. Afebrile. Objective Patient Vitals for the past 24 hrs: BP Temp Temp src Pulse Resp SpO2 Height Weight 04/04/23 1337 151/58 36.4 ???C (97.5 ???F) 60 12 -- 1.626 m (5' 4.02 [...] 04/03/23 1615 120/51 36.4 ???C (97.5 ???F) 16 98 % -- -- Physical Exam [...] CT surgery standpoint. Medical management per cardiology team.[facility]08-30-2023 Note04/04/23 1035 Admission Assessment Questions Verify [...] Discharge? Yes Does the patient have a medical case manager assigned to them through their insurance? No Living Arrangement (Current/Prior to Hospitalization) Private residence (3 steps to enter) Does the patient have history of HHC or SNF? Yes (Hx of rehab placement in [place]) Assistive Device Grab bars Patient's goal for [...] link and activate MyChart? MyChart already active [facility]08-29-2023 NoteIndications; Mrs. Robbins is a 78-year-old [...] the right common femoral Utilizing 2 6 Ukrainian ProGlide devices 6. Angio-Seal vascular closure in the right femoral, artery X Ray Developing Machine Operator; interventional hoop riveting machine operator helper; Toño Balbuena MD Cardiac surgery hoop riveting machine operator helper; Lina Lamas MD ; building operator Herve Mayorga MD ; Methods; Procedure was explained to the patient with risks and benefits. She signed informed consent. She was brought to the Manager Pe in a fasting state. The procedure was performed the [facility] under conscious sedation. Both groin areas were prepped and draped in usual fashion. Micropuncture technique and ultrasound guidance was used to access the right common femoral artery and inner cannula angiography was performed following by upsizing to a 6 Ukrainian by 11 cm sheath. The same was done for for access in the left common femoral artery. Ultrasound guidance was used for micropuncture access in left common femoral vein and 6 Ukrainian by 11 cm introducer sheath was secured in place. This time we proceeded with preclosure in the right common femoral artery using 2 crossing perclosure devices and the access was then upsized over wire to the 10 Ukrainian sheath. Heparin was given intravenously and therapeutic ACT was confirmed during the rest of the procedure and additional heparin was given as needed. A 5 Ukrainian balloontipped pacemaker wire was advanced through the femoral sheath into the right ventricular apex and adequate capture was confirmed. Right common femoral artery was accessed and upsized over an Amplatz extra-stiff wire to the 14 Ukrainian Medtronic sheath. Through the left common femoral sheath an angled 6 Ukrainian pigtail catheter was then advanced to the ascending aorta into the 9 coronary cusp. Aortic root angiography was performed and the cause overlap view as determined by prior CT scan measurements. A 6 Ukrainian AL diagnostic catheter was advanced via the right femoral sheath and using a stiff Glidewire the aortic valve was crossed and the catheter was advanced into the left ventricular cavity and using exchange length J-wire a 6 Ukrainian angled pigtail catheter was advanced to make [...] valve over the wire across the aortic seneca-cayuga aortic valve and under pacing at 120 [...] and removed outside the body. The 14 Ukrainian access sheath was placed across the right femoral and 6 Ukrainian angled pigtail catheter was advanced across the [...] previous placed per (more content not included)... [facility]08-29-2023 NotePatient: Trisha Parish Procedure Information Date/Time: 04/03/23 1100 Procedure: TAVR Location: [facility] DEVELOPMENTAL THERAPIST 3 / [facility] (Cath) Providers: Toño Balbuena MD Clinical information reviewed: Allergies Meds OB Status Physical Exam Airway Mallampati: II TM distance: >3 FB Neck ROM: full Cardiovascular Rhythm: regular Rate: normal Dental Pulmonary Abdominal Anesthesia Plan ASA 3 other (Moderate sedation) Anesthetic plan and risks discussed with patient. Use of blood products discussed with patient who consented to blood products. [facility]23 Note [place] [facility] - [facility] Subjective Trisha Parish is [...] (CMS/HCC) Pre-operative cardiovascular examination, recent myocardial infarction ([facility]/HCC) Cardiac pacemaker in situ Postural dizziness with presyncope NSTEMI (non-ST elevated myocardial infarction) ([facility]/HCC) Hx of CABG Severe aortic stenosis [...] In September 2022 she was admitted to [facility] with weakness. She was found [...] , Rfl: carvedilol (Co (more content not included)...[facility] 02-21-2023 NoteCardiology Clinic Note Subjective Trisha [...] Never Update: 02/21/2023 She was hospitalized at [facility] for 3 days after presenting with [...] other elevated She was hospitalized 02/04-02/07/23 at [facility] and underwent coronary angiography and [...] 1 tablet by mouth in the morning. Sun,ur,Sat,Sun, Disp: , Rfl: anastrozole (Arimidex) 1 mg [...] Date WBC 6.44 02/06 (more content not included)...[facility] 02-09-2023 Evaluation note* Encounter Date Diagnosis Assessment Notes Treatment Notes Treatment Clinical Notes Feb, Nonrheumatic aortic valve stenosis (ICD-10 - I35.0) Discussed followup testing and likely procedure coming up at [facility] at length w pt and Feb, Chronic kidney disease, stage 3 unspecified (ICD-10 - N18.30) Reviewed labs - condition stable Feb, CAD in seneca-cayuga artery (ICD-10 - I25.10) Further f/u w [facility] Cardiology Feb, Essential hypertension (ICD-10 - I10) Improved on present meds. [employer] Other 07-05-2023 NotePhysical Therapy Physical Therapy Evaluation [...] in front. During session, patient confided in technical writer and editor that they felt as though their balance had decreased during this admission and that they were worried about walking due to occasional and unpredictable losses of balance. Patient reported that they thought it could be related to neuropathy at their feet, but were unsure. Patient told technical writer and editor that they wished to address loss of balance issues sooner rather than later and they felt less confident walking. Patient Active Problem List Diagnosis Heart block Acute renal failure syndrome ([facility]/HCC) Anemia Atrial fibrillation ([facility]) Benign hypertensive renal disease Carotid artery stenosis Cerebrovascular accident ([facility]/HCC) Coronary arteriosclerosis Essential hypertension Hypertensive disorder Hyperparathyroidism due to renal insufficiency ([facility]/HCC) Breast CA ([facility]) Malignant neoplasm of female breast ([facility]) Proteinuria Stage 3 chronic kidney disease ([facility]/HCC) Stage 4 chronic kidney disease ([facility]/HCC) Type 2 diabetes mellitus ([facility]/HCC) Vitamin D deficiency 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 ([facility]) Pre-operative cardiovascular examination, recent myocardial infarction ([facility]) Cardiac pacemaker in situ Postural dizziness with presyncope NSTEMI (non-ST elevated myocardial infarction) ([facility]) Hx of CABG Severe aortic stenosis Past Medical History: Diagnosis Date A-fib ([facility]) Cancer ([facility]/HCC) Coronary artery disease Hypertension Myocardial infarct ([facility]/HCC) Stroke ([facility]) Past Surgical History: Procedure Laterality Date [...] Level of Function Prior Function Level of [place]: Independent with ADLs and functional transfers Prior [...] Standing Balance Dynamic Darwin (more content not included)...[facility] 02-07-2023 NoteHospital Medicine Discharge Summary Final [...] Medications These medications were sent to [facility] - [address] [place] [address] [address] [facility] [place] [address], [facility] [address] lisinopril 40 mg tablet NIFEdipine CC 60 [...] Normal activity as tolerate (more content not included)...[facility]07-04-2023 NoteHospital Medicine Daily Progress Note - 02/06/2023 1:29 PM; Room: [address] [place] [address] Admission: 02/04/2023 10:47 PM; Length of stay: 2 days THE HOSPITALIST TEAM PREFERS TO USE [employer] CHAT FOR COMMUNICATION 7AM-7PM. IF I DO NOT RESPOND WITHIN 15 MINUTES, PLEASE PAGE ME/CALL THROUGH THE BLIND CLEANER. FROM 7PM-7AM, PLEASE PAGE [phone](COVR) Code Status: Full Code Discharge Destination: home [...] Cardiac pacemaker in situ Anemia Atrial fibrillation ([facility]) Carotid artery stenosis Essential hypertension Hypertensive disorder Breast CA ([facility]) Type 2 diabetes mellitus ([facility]) Vitamin D deficiency Postural dizziness with presyncope Hx of CABG NSTEMI (non-ST elevated myocardial infarction) ([facility]) Assessment and Plan #Near-syncope #NSTEMI type [...] Results Component Value D (more content not included)...[facility]07-04-2023 Note Attestation signed by Matilda Valentin [...] 155/87 36.6 ???C (97.8 ???F) [facility] 12 -- -- 02/06/23 0550 157/71 [...] Value Ventricular Rate 72 Atrial Rate 72 MD Interval 162 QRS DURATION 150 QT Interval 464 QTC CALCULATION(BAZETT) 508 P Scott 70 R-Scott -40 T Wave Scott 103 Impression Atrial-sensed ventricular-paced rhythm Abnormal ECG When compared with ECG of 10-SEP-2022 13:04, Electronic ventricular pacemaker has replaced Sinus rhythm Confirmed by Cheryl VALENTIN, MATILDA Robles ([id number]) on 02/05/2023 8:39:37 AM Lab Results Component Value Date TROPONINI 0.25 (HH) 02/05/2023 Complete Echo (TTE) w/wo Imaging Agent, Strain, 3D, Bubble Study Result Date: 02/05/2023 1 1 [facility] Heart Station [address] [place] [address] [phone] (fax) Echocardiogram-[facility] Name: TRISHA PARISH Study Date: 02/05/2023 09:59 AM B/P: 136 mmHg/65 mmHg HR: 61 bpm Date of : 1945 Location: [facility] Height: 63 in. Age: 77 [...] cm?? Aortic Va (more content not included)... [facility]07-04-2023 NoteCTA CHEST W AND/OR WO IV [...] 3 cusped view, anterior view and no APPRENTICE LINEMAN THIRD STEP-CAU view are obtained in 3-D volume rendered [...] diameter of 23 mm. Electronically signed: Fely Carrington.[facility] Comment on above:Order Comment: TAVR [id number] NoteCTA ABDOMEN PELVIS W AND/OR WO IV [...] spondylosis and levoconvex scoliosis. Electronically signed: Fely Carrington.[facility] 02-05-2023 NotePatient: Trisha Parish Procedure Information Date/Time: 02/05/23 1800 Procedures: Coronary angiography Right heart cath Valve assessment - Aortic valve Location: [facility] DEVELOPMENTAL THERAPIST 3 / [facility] (Cath) Providers: Herve Mayorga MD Clinical information reviewed: Allergies Meds Physical Exam Airway Mallampati: III Cardiovascular Rhythm: regular Dental Pulmonary Abdominal Anesthesia Plan ASA 3 other (Conscious sedation ) intravenous induction Anesthetic plan and risks discussed with patient. Use of blood products discussed with patient who. Additional Equipment [facility]Un[facility]07-03-2023 Note Clinical Nutrition Assessment [...] Nutrition Goals: intake > 75% meals Alexander Cohwdhury RDEast [facility]07-03-2023 NoteHoital Medicine Daily Progress Note - 02/05/2023 12:08 PM; Room: [address] [place] [address] Admission: 02/04/2023 10:47 PM; Length of stay: 1 days THE HOSPITALIST TEAM PREFERS TO USE [employer] CHAT FOR COMMUNICATION 7AM-7PM. IF I DO NOT RESPOND WITHIN 15 MINUTES, PLEASE PAGE ME/CALL THROUGH THE BLIND CLEANER. FROM 7PM-7AM, PLEASE PAGE [phone](COVR) Code Status: Full Code Discharge Destination: home [...] 1.36 09/10/2022 Lab Results Component Value Date [id number] 177 (L) 09/10/2022 IRON 27 (L) 09/10/2022 TIBC 203 (L) 09/10/2022 Imaging ECG 12 lead Atrial-sensed ventricular-paced rhythm Abnormal ECG When compared with ECG of 10-SEP-2022 13:04, Electronic ventricular pacemaker has replaced Sinus rhythm Confirmed by Cheryl VALENTIN, MATILDA Robles ([id number]) on 02/05/2023 8:39:37 AM Discharge Planning Discharge Planning Has discharge transport been arranged?: No Signed Josr Ray NP Hospital Medicine 02/05/2023 12:08 PMEast [facility]07-03-2023 NoteHospital Medicine History and Physical 02/05/2023 12:23 AM THE HOSPITALIST TEAM PREFERS TO USE [employer] CHAT FOR COMMUNICATION 7AM-7PM. IF I DO NOT RESPOND WITHIN 15 MINUTES, PLEASE PAGE ME/CALL THROUGH THE BLIND CLEANER. FROM 7PM-7AM, PLEASE PAGE [phone](COVR) Chief Complaint Direct transfer History of Present [...] Pre-operative cardiovascular examination, recent myocardial infarction ([facility] 10/06/2022 Atrial fibrillation ([facility]) 09/20/2022 Carotid artery stenosis 09/20/2022 Cerebrovascular accident ([facility]) 09/20/2022 Coronary arteriosclerosis 09/20/2022 Hypertensive disorder 09/20/2022 Heart block 09/10/2022 Hyperparathyroidism due to renal insufficiency ([facility]) 04/02/2019 Stage 4 chronic kidney disease ([facility]) 04/02/2019 Anemia 02/19/2017 Essential hypertension 02/19/2017 Malignant neoplasm of female breast ([facility]) 02/19/2017 Proteinuria 02/19/2017 Vitamin D deficiency 02/19/2017 Type 2 diabetes mellitus ([facility]) 07/09/2014 Acute renal failure syndrome ([facility]) 11/06/2013 Benign hypertensive renal disease 11/06/2013 Stage 3 chronic kidney disease ([facility]) 11/06/2013 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 Past Medical History Past Medical History: Diagnosis Date A-fib ([facility]/HCC) Cancer ([facility]/HCC) Coronary artery disease Hypertension Myocardial infarct (CMS/HCC) Stroke ([facility]/HCC) Past Surgical History Past Surgical History: Procedure Laterality Date BREAST SURGERY CHOLECYSTECTOMY CORONARY ARTERY BYPASS GRAFT HYSTERECTOMY Social History Social History Socioeconomic Histor (more content not included)...[facility]06-20-2023 NoteUT Electrophysiology Consult Note Reason for [...] stenosis, CKD. She was recently admitted to [facility] for weakness, suspected to have [...] stroke who presented with generalized weakness to [facility]. At [facility], EKG demonstarted a 2:1 AV block with prolonged MD interval 266. Chest x-ray demonstrated possible trace [...] heart rate 59. Patient was transferred to [facility] for further evaluation by cardiology. [...] PMH: Past Medical History: Diagnosis Date A-fib ([facility]) Cancer ([facility] [facility]) Coronary artery disease Hypertension Myocardial infarct ([facility]) Stroke ([facility]) PSH: Past Surgical History: Procedure Laterality [...] mg chemo tablet anastrozole (more content not included)...[facility]06-14-2023 NoteUT Cardiology - [facility] Subjective Trisha Parish is [...] In September 2022 she was admitted to [facility] with weakness. She was found [...] (Pepcid) 20 mg tablet (more content not included)...[facility]02-03-2023 Evaluation note* Encounter Date Diagnosis Assessment [...] ultrasound thyroid from May 2022 with Trisha. [employer] Other 11-16-2021 NotePROCEDURE REPORT Specimen #: [id number] Submitting Physician: Abner Wheeler MD SPECIMEN SUBMITTED [...] developed and its performance characteristics determined by [facility] [place] [facility] It has not been cleared or approved by the FDA. 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- Primary documented in this encounter [facility] HealthcareEvaluation note* Diagnosis Abdominal pain, unspecified abdominal location- Primary Abnormal CT scan Other nonspecific (abnormal) findings on radiological and other examinations of body structure Elevated lipase documented in this encounter [facility] Work Phone: Evaluation note* Diagnosis Malignant neoplasm of body of stomach (Multi)- Primary Malignant neoplasm of body of stomach GI cancer (Multi) Malignant neoplasm of ill-defined sites of digestive organs and peritoneum 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) Gastrointestinal complication of procedure documented in this encounter [facility] Work Phone: Evaluation note* Diagnosis Cardiac pacemaker in situ Atrioventricular block, second degree documented in this encounter [facility] Work Phone: Evaluation note* Diagnosis Cardiac pacemaker in situ Atrioventricular block, second degree documented in this encounter [facility] Work Phone: Evaluation note* Diagnosis Onset Date Resolution Status Anemia acute Hypotension acute Mass of pancreas acute Pancreatitis acute Rectal mass acute Stage 3b chronic kidney disease acute Gastric carcinoma acute [facility] Work Phone: Evaluation note* Diagnosis Onset Date Resolution Status Anemia acute Hypotension acute Mass of pancreas acute Pancreatitis acute Rectal mass acute Stage 3b chronic kidney disease acute CAD in [place] artery acute Encounter for coordination of complex care acute Gastric carcinoma acute History of left breast cancer acute History of transcatheter aortic valve replacement (TAV R) acute Mass of pancreas acute Pacemaker acute Stage 3b chronic kidney disease acute Type II diabetes mellitus ac [place] Cancer associated pain acute Encounter for palliative care acute Gastric carcinoma acute [facility] Work Phone: Evaluation note* Diagnosis Onset Date Resolution Status Anemia acute Hypotension acute Mass of pancreas acute Pancreatitis acute Rectal mass acute Stage 3b chronic kidney disease acute CAD in [place] artery acute Encounter for coordination of complex care acute Gastric carcinoma acute History of left breast cancer acute History of transcatheter aortic valve replacement (TAV R) acute Mass of pancreas acute Pacemaker acute Stage 3b chronic kidney disease acute Type II diabetes mellitus ac [place] Cancer associated pain acute Encounter for palliative care acute Gastric carcinoma acute CAD in [place] artery acute Encounter for coordination of complex care acute Gastric carcinoma acute History of left breast cancer acute History of transcatheter aortic valve replacement (TAV R) acute Mass of pancreas acute Pacemaker acute Stage 3b chronic kidney disease acute Type II diabetes mellitus ac [facility] Work Phone: History general Narrative - Reported* Type Description Date Medical History CAD in [place] artery Medical History Diabetes mellitus ty pe 2, uncontrolled, without complications Medical History Chronic kidney disease, stage 3 unspecified Medical History Elevated glucose Medical History Right thyroid nodule Medical History Menopause Medical History Enlarged thyroid gland Medical History Anxiety, generalized Medical History Essential hypertension Surgical History CHOLECYSTECTOMY 2014 Surgical History LEFT BREAST MASTECTOMY Hospitalization History SEE SURGICAL [employer] Other Hiskcqg general Narrative - Reported* Type Description Date Medical History CAD in [place] artery Medical History Diabetes mellitus ty pe 2, uncontrolled, without complications Medical History Chronic kidney disease, stage 3 unspecified Medical History Elevated glucose Medical History Right thyroid nodule Medical History Menopause Medical History Enlarged thyroid gland Medical History Anxiety, generalized Medical History Essential hypertension Medical History Heart attack Surgical History CHOLECYSTECTOMY 2014 Surgical History LEFT BREAST MASTECTOMY Hospitalization History SEE SURGICAL [employer] Other Hospital Discharge instructionsAmbulatory Orders* Referral to Palliative Medicine Location: None Selected [facility] Work Phone: Summary Purpose Family History No [...] Referral Specialty Diagnoses / Procedures Referred By Contac t Referred To Contact Radiology Diagnoses Cardiac pacemaker in situ Atrioventricular block, second degree Procedures XR chest 2 views Shanon Martínez MD [address], [address] [address] Referral ID Status Reason Start Date Expiration Date Visits Requested Visits Authorized [id number] Authorized Perform Procedure 01/03/2024 01/02/2025 1 1 Specialty Diagnoses / Procedures Referred By Contac t Referred To Contact Cardiology Diagnoses Cardiac pacemaker in situ Atrioventricular block, second degree Procedures Cardiac device check - In Clinic Shanon Martínez MD [address], [address] [address] Referral ID Status Reason Start Date Expiration Date Visits Requested Visits Authorized [id number] Pending Review Perform Procedure 01/03/2024 01/02/2025 1 1 Specialty Diagnoses / Procedures Referred By Contac t Referred To Contact Hematology and Oncology Diagnoses Malignant neoplasm of body of stomach ([place]) [place] [address] [place] [address] Keyla Lua MD [address] [place] [address] Referral ID Status Reason Start Date Expiration Date Visits Requested Visits Authorized [id number] Authorized Specialty Services Required 01/03/2024 01/02/2025 1 1 Specialty Diagnoses / Procedures Referred By Contac t Referred To Contact Gastroenterology Diagnoses Abdominal pain, unspecified abdominal location Abnormal CT scan Elevated lipase Procedures Endoscopic Ultrasound (Upper) MD ESOPHAGOSCOPY FLEXIBLE TRANSORAL ULTRASOUND EXAM MD ESOPHAGOSCOPY INTRA/TRANSMURAL NEEDLE ASPIRAT/BX Aman Capellan MD [address] [address] Referral ID Status Reason Start Date Expiration Date V isits Requested Visits Authorized [id number] Authorized 12/07/2023 12/06/2024 1 1 Specialty Diagnoses / Procedures Referred By Contact Referred To Contact Gastroenterology Diagnoses Abdominal pain, unspecified abdominal location Abnormal CT scan Elevated lipase Procedures EGD MD ESOPHAGOGASTRODUODENOSCOPY TRANSORAL DIAGNOSTIC MD EGD TRANSORAL BIOPSY SINGLE/MULTIPLE Aman Capellan MD [address] [facility] [address] [place] [address] Referral ID Status Reason Start Date Expiration Date V isits Requested Visits Authorized [id number] Authorized 12/07/2023 12/06/[address] Morales in [place] - chronic PND Diagnosis 1 Post-nasal drip (R09 .82) Referral Organization [facility] john Referring Provider First Name Sanya Referring Provider Last Name Rivka Referring Provider Specialty Family [facility] Referred Organization [facility] Referred Address ,[place], [place],[address] Referred Provider Specialty Ear, Nose an d Throat Referral Priority Routine Chief Complaint and Reason for Visit Chief Complaint tb er follow up Amb [...] Stage 3b chronic kidney disease CAD in [place] artery Encounter for coordination of complex care Gastric carcinoma History of left breast cancer History of transcatheter aortic valve replacement (TAVR) Mass of pancreas Pacemaker Stage 3b chronic kidney disease Type II diabetes mellitus Cancer associated pain Encounter for palliative care Gastric carcinoma Chief Complaint tb er follow up Amb Documentation Amb Documentation NEW gastric adenocarinoma Follow Up PET Gastric Adenocarcinoma Reason for Visit Anemia Hypotension Mass of pancreas Pancreatitis Rectal mass Stage 3b chronic kidney disease CAD in [place] artery Encounter for coordination of complex care Gastric carcinoma History of left breast cancer History of transcatheter aortic valve replacement (TAVR) Mass of pancreas Pacemaker Stage 3b chronic kidney disease Type II diabetes mellitus Cancer associated pain Encounter for palliative care Gastric carcinoma CAD in [place] artery Encounter for coordination of complex care Gastric carcinoma History of left breast cancer History of transcatheter aortic valve replacement (TAVR) Mass of pancreas Pacemaker Stage 3b chronic kidney disease Type II diabetes mellitus Additional Source Comments INFORMATION SOURCE (unrecogn ized section and content) DATE CREATED AUTHOR 05/01/2018 [facility] DATE CREATED AUTHOR AUTHOR'S ORGANIZ ATION 07/16/2018 [facility] DATE CREATED AUTHOR AUTHOR'S ORGANIZ ATION 06/23/2021 [facility] DATE CREATED AUTHOR AUTHOR'S ORGANIZ ATION 10/10/2022 [facility] DATE CREATED AUTHOR AUTHOR'S ORGANIZ ATION 10/20/2023 [facility] EPIC DATE CREATED AUTHOR AUTHOR'S ORGANIZ ATION 12/02/2023 [facility] DATE CREATED AUTHOR AUTHOR'S ORGANIZ ATION 01/04/2024 [facility] DATE CREATED AUTHOR AUTHOR'S ORGANIZ ATION 01/12/2024 [facility] DATE CREATED AUTHOR AUTHOR'S ORGANIZ ATION 01/19/2024 [facility] DATE CREATED AUTHOR AUTHOR'S ORGANIZ ATION 02/02/2024 [facility] REASON FOR VISIT (unrecogniz ed section and content) Reason Comments Retinal Injection Specialty Diagnoses / Procedures Referred By Contac t Referred To Contact Gastroenterology Diagnoses Abdominal pain, unspecified abdominal location Abnormal CT scan Elevated lipase Procedures Endoscopic Ultrasound (Upper) MD ESOPHAGOSCOPY FLEXIBLE TRANSORAL ULTRASOUND EXAM MD ESOPHAGOSCOPY INTRA/TRANSMURAL NEEDLE ASPIRAT/BX Aman Capellan MD [address] [facility] [address] [place] [address] Referral ID Status Reason Start Date Expiration Date V isits Requested Visits Authorized [id number] Authorized 12/07/2023 12/06/2024 1 1 Reason Comments New Patient Visit Specialty Diagnoses / Procedures Referred By Contac t Referred To Contact Oncology Diagnoses GI cancer (Multi) Sanya Tineo MD [facility] [place] [address] [place] [address] Referral ID Status Reason Start Date Expiration Date Visits Requested Visits Authorized [id number] Authorized Specialty Services Required 01/01/2024 12/31/2024 1 1 Specialty Diagnoses / Procedures Referred By Contac t Referred To Contact Cardiology Diagnoses Cardiac pacemaker in situ Atrioventricular block, second degree Procedures Cardiac device check - In Clinic Shanon Martínez MD [address] [facility] [place] [address] Referral ID Status Reason Start Date Expiration Date Visits Requested Visits Authorized [id number] Pending Review Perform Procedure 01/03/2024 01/02/2025 1 1 Specialty Diagnoses / Procedures Referred By Nnamdi carlson Referred To Contact Radiology Diagnoses Cardiac pacemaker in situ Atrioventricular block, second degree Procedures XR chest 2 views Shanon Martínez MD [address] [facility] [address] [place] [address] Referral ID Status Reason Start Date Expiration Date Visits Requested Visits Authorized [id number] Authorized Perform Procedure 01/03/2024 01/02/2025 1 1 Care Teams (unrecognized sec tion and content) Nursing Home Administrator Relationship Specialty Start Date End Date Sanya Tineo MD [address] [place] [id number] PCP - General Family Medicine 02/20/23 Nursing Home Administrator Relationship Specialty Start Date End Date Sanya Tineo MD [address] [place] [address] PCP - General Family Medicine 12/07/23 Aman Capellan MD [address] [address] Referring Physician Gastroenterology 12/07/23 Nursing Home Administrator Relationship Specialty Start Date End Date Sanya Tineo MD [address] [place] [address] PCP - General Family Medicine 12/07/23 Aman Capellan MD [address] [address] Referring Physician Gastroenterology 12/07/23 [place] [address] [place] [address] Consulting Physician Hematology and Oncology 01/03/24 Nursing Home Administrator Relationship Specialty Start Date End Date Sanya Tineo MD [address] [place] [address] PCP - General Family Medicine 12/07/23 Aman Capellan MD [address] [place] [address] Referring Physician Gastroenterology 12/07/23 [place] [address] [place] [address] Consulting Physician Hematology and Oncology 01/03/24 Nursing Home Administrator Relationship Specialty Start Date End Date Sanya Tineo MD [address] [place] [address] PCP - General Family Medicine 12/07/23 Aman Capellan MD [address] [place] [address] Referring Physician Gastroenterology 12/07/23 [place] [address] [place] [address] Consulting Physician Hematology and Oncology 01/03/24 Team [...] 2023 Geri Gonzales Attending Provider Active Start: Bibiana guzman 2023 Team Status: Active Member Role Status Dates Sanya Tineo MD Primary Care Provide jessica, Attending Provider Active Start: January 01, 2024 Team Status: Active Member Role Status Monica Tineo MD Primary Care Provider Active Start: January 14, 2024 Chey Amezcua LPN Attending Provider Active St art: January 14, 2024 Team Status: Active Member Role Status Dates Sanya Tineo MD Primary Care Provider Active Start: January 17, 2024 Keyla Lua MD Attending Provider Active Start: January 17, 2024 NON STAFF Referring Provider Active Start: [facility] 2023 Team Status: Inactive Member Role Status Monica Tineo MD Primary Care Provider Active Start: January 17, 2024 End: January 17, 2024 Kelya Lua MD Attending Provider Active Start: January 17, 2024 End: January 17, 2024 NON STAFF Referring Provider Active Start: 2023 End: January 17, 2024 Team Status: Inactive Member Role Status Monica Tineo MD Primary Care Provider Active Start: January 28, 2024 End: January 28, 2024 Ngozi Caputo APRN Attending Provider Active Start: January 28, 2024 End: January 28, 2024 Team Status: Inactive Member Role Status Monica Tineo MD Primary Care Provider Active Start: February 01, 2024 End: February 01, 2024 Keyla Lua MD Attending Provider Active Start: February 01, 2024 End: February 01, 2024 Team Status: Active Member Role Status Monica Tineo MD Primary Care Provider Active Start: February 01, 2024 Keyla Lua MD Attending Provider Active Start: February 01, 2024 NON STAFF Referring Provider Active Start: 2023 Goals (unrecognized section and content) Goals [...] BE BASED ON THE PRIMARY CLINICAL RECORDS. [facility] [employer] [facility] provides no warranty or guarantee of the accuracy or completeness of information in this document.
[2024-02-10] MEDS: POLYETHYLENE GLYCOL 3350 17 GM POWDER PACKET PO (18:48)
[2024-02-10] MEDS: SENNOSIDES 8.6 MG TABLET 17.2 MG PO (21:18)
[2024-02-10] MEDS: DOCUSATE SODIUM 100 MG CAPSULE PO (21:18)
[2024-02-10] MEDS: ACETAMINOPHEN 500 MG TABLET 1000 MG PO (23:04)
[2024-02-11] VITALS (19 sets, daily range): BP systolic 121–171; BP diastolic 60–84; PULSE 63–84; TEMP 36.6–37.1; O2SAT 93–97
[2024-02-11] MEDS: 0.9 % SODIUM CHLORIDE 1,000 ML 100 ML IV ×2 (04:45→15:42)
[2024-02-11 05:01] LABS: Basophils Percent Auto 0.5 % (0.2-2.0); Eosinophils Absolute Auto 0.1 10^3/uL (0.0-0.7); Eosinophils Percent Auto 1.7 % (0.9-7.0); Hematocrit 29.8 % (36.0-48.0); Hemoglobin 9.5 g/dL (12.0-16.0); Immature Granulocytes Abs Auto 0.01 10^3/uL (0.00-0.03); Immature Granulocytes Pct Auto 0.2 % (0.0-0.5); Mean Corpuscular HGB Conc 31.9 g/dL (29.9-35.2); Mean Corpuscular Hemoglobin 28.7 pg (26.7-34.0); Mean Platelet Volume 11.9 fL (9.5-13.5); Monocytes Absolute Auto 0.5 10^3/uL (0.3-0.8); Monocytes Percent Auto 7.9 % (1.7-12.0); Neutrophils Absolute Auto 4.3 10^3/uL (1.4-6.5); Neutrophils Percent Auto 72.7 % (43.0-75.0); Platelet Count 160 10^3/uL (150-450); Red Blood Count 3.31 10^6/uL (4.20-5.40); Red Cell Distribution Width 13.6 % (11.0-15.0); White Blood Count 5.9 10^3/uL (4.0-11.0)
[2024-02-11 05:21] LABS: Alanine Aminotransferase 73 U/L (14-59); Albumin Globulin Ratio 0.6; Albumin Level 2.4 g/dL (3.4-5.0); Alkaline Phosphatase 342 U/L (46-116); Anion Gap 11.6; Aspartate Amino Transferase 68 U/L (15-37); Bilirubin Total 0.7 mg/dL (0.2-1.0); Calcium 8.1 mg/dL (8.5-10.1); Carbon Dioxide 21.4 mmol/L (21.0-32.0); Chloride 109 mmol/L (98-107); Estimated GFR (African America 40 (>=60); Estimated GFR (Non-African Ame 33 (>=60); Globulin 3.7 g/dL; Glucose 126 mg/dL (74-106); Sodium 138 mmol/L (136-145); Total Protein 6.1 g/dL (6.4-8.2)
[2024-02-11 05:32] LABS: Bilirubin Urine NEGATIVE (NEGATIVE); Blood Urine LARGE (NEGATIVE); Clarity Urine CLEAR (CLEAR); Color Urine YELLOW (YELLOW); Glucose Urine UA NEGATIVE (NEGATIVE); Ketones Urine TRACE mg/dL (NEGATIVE); Leukocyte Esterase Urine SMALL (NEGATIVE); Nitrite Urine NEGATIVE (NEGATIVE); Protein Urine TRACE mg/dL (NEG/TRACE); Specific Gravity Urine 1.025 (1.005-1.025); Urobilinogen Urine 0.2 EU/dL (0.2-1.0); pH Urine 5.5 (5.0-9.0)
[2024-02-11 05:37] LABS: Urine Microscopic Indicated YES
[2024-02-11 05:43] LABS: Bacteria Urine SMALL #/HPF (NONE SEEN); Mucus Urine SMALL (NONE SEEN)
[2024-02-11 05:44] LABS: Amorphous Sediment Urine MANY; Cast Seen? NONE SEEN #/LPF (NONE SEEN); Crystals Seen? None Seen #/HPF (None Seen); Squamous Epithelial Cell Urine FEW #/LPF (NONE/RARE); Urine Culture Indicated YES
[2024-02-11] MEDS: ONDANSETRON PF 4 MG/2 ML VIAL IV ×2 (08:51→14:06)
[2024-02-11] MEDS: CHOLECALCIFEROL (VITAMIN D3) 25 MCG/1,000 UNITS TABLET 50 MCG PO (08:52)
[2024-02-11] MEDS: POLYETHYLENE GLYCOL 3350 17 GM POWDER PACKET PO ×2 (08:52→14:06)
[2024-02-11] MEDS: LISINOPRIL 10 MG TABLET PO (08:52)
[2024-02-11] MEDS: NIFEdipine 30 MG TAB.ER.24 60 MG PO (08:55)
[2024-02-11] MEDS: CARVEDILOL 25 MG TABLET PO ×2 (08:55→21:07)
[2024-02-11] MEDS: DOCUSATE SODIUM 100 MG CAPSULE PO ×2 (08:56→21:07)
[2024-02-11] MEDS: FAMOTIDINE 20 MG TABLET PO ×2 (08:56→21:07)
[2024-02-11] MEDS: ACETAMINOPHEN 500 MG TABLET 1000 MG PO (08:56)
[2024-02-11] MEDS: CLOPIDOGREL BISULFATE 75 MG TABLET PO (08:57)
[2024-02-11] MEDS: HYDRALAZINE HCL 25 MG TABLET PO ×2 (08:57→21:06)
[2024-02-11] MEDS: ENSURE CLEAR 237 ML LIQUID PO (09:03)
[2024-02-11] MEDS: ENOXAPARIN SODIUM 40 MG/0.4 ML SYRINGE SUBQ (10:15)
[2024-02-11] MEDS: HYDROCORTISONE ACETATE 25 MG RECTAL SUPPOSITORY PR (10:18)
[2024-02-11] MEDS: CEFTRIAXONE 1,000 MG in 0.9 % SODIUM CHLORIDE 50 ML 100 MG IV (10:18)
[2024-02-11] MEDS: GLYCERIN/WITCH HAZEL PADS 1 PAD TOPICAL (10:19)
--- NOTE | 2024-02-11 12:03 | P.HP_ITS ---
<Statement entered by David Whelan MD - 02/11/24 19:34> Patient seen and examined, agree with assessment and plan below. History of gastric cancer and suspected pancreatic cancer. To ER with weakness and constipation. CT with fecal impaction and medication added. Strength improved with IV fluids. Diagnosis: 1. Dehydration 2. Opiate induced constipation 3. Weakness 4. Gastric cancer 5. Pancreatic cancer 6. Elevated troponin 7. Afib 8. CAD HPI H&P: HPI History of Present Illness Chief complaint: CONSTIPATION/DEHYDRATION Narrative: 02/11/24 0940 This is a 78-year-old female patient with a past medical history as outlined below including CAD, hypertension, GERD, remote history of breast cancer with lymph involvement, and current diagnosis of gastric cancer and concern for pancreatic lesion; who presented to the ED yesterday complaining of severe constipation (2 weeks) and dehydration. She reports starting oxycodone recently due to her cancer pain. Her appetite is suppressed and she is not drinking well and reports early satiety due to her gastric tumor. She had been taking stool softeners for the last few days attempting to resolve her constipation without effect. Workup in the ED revealed stable CKD 3B, elevated troponins (134, 120.8) but trending down from prior history in the 500s, elevated lipase (78) but also trending down from previous labs, positive UTI on UA. CT of the abdomen revealed an enlarged pancreatic head and associated intra and extrahepatic ductal dilatation suspicous for pancreatic cancer, and fecal impaction of the rectum. Chest x-ray was unremarkable. An EKG revealed sinus rhythm with first-degree AV block and anterior MD of indeterminate age. She was admitted in observation to the hospitalist service last night for constipation and clinical dehydration. At the time of my exam this morning the patient is resting in bed. She is somewhat distressed over her constipation but otherwise denies acute complaints. She has persistent diffuse abdominal pain and primary gastric pain. We discuss ed attempting very frequent small meals to increase her caloric and fluid oral intake. She is being treated with stool softeners multiple times a day and IV fluids for hydration. Discharge is possible later today if she is able to mobilize her fecal impaction. Opioid HPI Opioid Management Most Recent Pain and Opioid Data: Last Pain Scale 3 02/11/24 10:15 Last Pain Assessment 02/11/24 11:00 Last ED Pain Assessment 02/10/24 15:37 Last MAR Pain Assessment 02/11/24 10:15 Last ORT Total Score 1 02/10/24 18:11 Last ORT Risk Category Low Risk 02/10/24 18:11 Review of Systems ROS Status of ROS 10 or more systems reviewed and unremark able except as noted in history and below [facility] Medical History (Updated 02/11/24 @ 12:34 by Isha Church NP) Afib ?I48.91 - Unspecified atrial fibrillation (ICD-10) CAD (coronary artery disease) ?I25.10 - Atherosclerotic heart disease of [place] coronary artery without angina pectoris (ICD-10) Elevated troponin I level ?R77.8 - Other specified abnormalities of plasma proteins (ICD-10) Dizziness ?R42 - Dizziness and giddiness (ICD-10) Anemia ?D64.9 - Anemia, unspecified (ICD-10) Chronic kidney disease (CKD) ?N18.9 - Chronic kidney disease, unspecified (ICD-10) Pancreatitis ?K85.90 - Acute pancreatitis without necrosis or infection, unspecified (ICD- 10) Retinal vascular occlusion, left eye ?H34.9 - Unspecified retinal vascular occlusion (ICD-10) Cataracts, bilateral ?H26.9 - Unspecified cataract (ICD-10) H/O TIA (transient ischemic attack) and stroke ?Z86.73 - Personal history of transient ischemic attack (TIA), and cerebral infarction without residual deficits (ICD-10) HLD (hyperlipidemia) ?E78.5 - Hyperlipidemia, unspecified (ICD-10) CKD stage 3 due to type 2 diabetes mellitus ?E11.22 - Type 2 diabetes mellitus with diabetic chronic kidney disease (ICD- 10) ?N18.30 - Chronic kidney disease, stage 3 unspecified (ICD-10) FH: mastectomy ?Z84.89 - Family history of other specified conditions (ICD-10) Pacemaker ?Z95.0 - Presence of cardiac pacemaker (ICD-10) History of breast cancer ?Z85.3 - Personal history of malignant neoplasm of breast (ICD-10) Hypertension ?I10 - Essential (primary) hypertension (ICD-10) Diabetes 1.5, managed as type 2 ?E13.9 - Other specified diabetes mellitus without complications (ICD-10) Surgical History (Updated 09/04/23 @ 13:08 by Sirisha Macias RN) Hx of cholecystectomy ?Z90.49 - Acquired absence of other specified parts of digestive tract (ICD- 10) H/O: hysterectomy ?Z90.710 - Acquired absence of both cervix and uterus (ICD-10) History of open heart surgery ?Z98.890 - Other specified postprocedural states (ICD-10) Family History Mother Family history of diabetes mellitus Family history of hypertension Family history of myocardial infarction Social History Within the past year, how often did you have a drink containing alcohol: never Score interpretation: A score less than 3 is consistent with normal alcohol consumption. Smoking status: Never smoker Second hand tobacco smoke exposure: Yes Non-prescribed substance use: denies use Previous occupational history: Retired- [employer] Known occupational exposures/hazards: No Highest level of school completed/degree received: Bachelor's degree Do you want help with school or training: No Meds Home Medications and Allergies Home Medications ?Medication ?Instructions ?Recorded ?Confirmed ?Type atorvastatin 80 mg tablet 80 mg PO .qhs 02/02/23 02/10/24 History carvedilol 25 mg tablet 25 mg PO Q12H 02/02/23 02/10/24 History cholecalciferol (vitamin D3) 2,000 unit PO DAILY 02/02/23 02/10/24 History clopidogrel 75 mg tablet 75 mg PO DAILY 02/02/23 02/10/24 History docusate sodium 100 mg capsule 100 mg PO .sunday and 02/02/23 02/11/24 History (Stool Softener) flash glucose scanning reader 02/02/23 02/10/24 History (FreeStyle Stephy 2 [place]) flash glucose sensor (FreeStyle 02/02/23 02/10/24 History Stephy 2 Sensor kit) hydralazine 25 mg tablet 25 mg PO Q12H 02/02/23 02/10/24 History nifedipine 30 mg tablet,extended 60 mg PO DAILY 02/02/23 02/10/24 History release famotidine 20 mg tablet (Acid 20 mg PO Q12H 11/05/23 02/11/24 History Controller) sucralfate 1 gram tablet 1 g PO TID 02/10/24 02/10/24 History lisinopril 10 mg tablet 10 mg PO .qd 02/11/24 02/11/24 History Allergies Allergy/AdvReac Type Severity Reaction Status Date / Time meperidine [From Demerol] AdvReac Mild Unknown Verified 02/10/24 14:34 Exam Constitutional Vital Signs, click to edit/add: Last Vital Signs Temp 98.0 F 02/11/24 07:38 Pulse 65 02/11/24 10:00 Resp 16 02/11/24 07:45 BP 170/66 H 02/11/24 08:57 Pulse Ox 97 02/11/24 07:38 O2 Del Method Room Air 02/11/24 07:38 Common normals: no apparent distress, oriented x3 and alert General appearance: cooperative Nutritional appearance: underweight Orientation/consciousness: Yes awake HENMT Common normals: normocephalic, head/scalp atraumatic, hearing grossly normal bilaterally, external nose normal and moist oral mucous membranes Eye Common normals: PERRL, EOMs intact bilaterally, conjunctivae normal and no scleral icterus Alignment: alignment normal Eyelid: eyelids normal Neck & C-Spine Common normals: full ROM, supple and no JVD Chest Common normals: inspection of chest normal Chest: symmetrical chest wall rise Respiratory Common normals: normal respiratory effort, no retractions, no use of accessory muscles and clear to auscultation bilaterally Effort & inspection: able to speak in complete sentences Cardio Common normals: no JVD, regular rate, regular rhythm, S1 normal heart sound, S2 normal heart sound, no gallops, no clicks, no rub and peripheral pulses 2+ throughout Heart sounds: murmur (HSM 3/6) GI Common normals: Normal to inspection, nondistended, normoactive bowel sounds present, soft to palpation, no hepatosplenomegaly, no masses and no bruits Palpation: tender (Diffuse. Greatest at epigastric area) Bladder/kidney exam: bladder normal to palpation Back & Pelvis Common normals: thoracic and lumbar spine normal to inspection Extremity Common normals: normal capillary refill and no pedal edema General: normal exam except as noted; no clubbing and no cyanosis Neuro [place] Coma Scale: GCS not evaluated Common normals: CN's II-XII intact bilaterally, moves all extremities, no focal motor deficits and no sensory deficits noted Speech: speech normal Motor exam: strength 5/5 throughout Psych Common normals: mental status grossly normal, thought process normal, affect normal and activity/motor behavior normal Results Labs Labs: Short CBC 02/10/24 02/11/24 Range/Units 15:15 04:47 WBC 6.7 5.9 (4.0-11.0) 10^3/uL Hgb 10.7 L 9.5 L (12.0-16.0) g/dL Hct 33.1 L 29.8 L (36.0-48.0) % Plt Count 191 160 (150-450) 10^3/uL BMP 02/10/24 02/11/24 15:15 04:47 Sodium 137 138 Potassium 4.0 4.0 Chloride 104 109 H Carbon Dioxide 20.9 L 21.4 BUN 28.0 H 26.0 H Creatinine 1.69 H 1.53 H Glucose 173 H 126 H Calcium 9.1 8.1 L Liver Function 02/10/24 02/11/24 Range/Units 15:15 04:47 Total Bilirubin 1.1 H 0.7 (0.2-1.0) mg/dL AST 80 H 68 H (15-37) U/L ALT 91 H 73 H (14-59) U/L Alkaline Phosphatase 396 H 342 H (46-116) U/L Albumin 3.0 L 2.4 L (3.4-5.0) g/dL Urine 02/11/24 Range/Units 03:30 Urine Color Yellow (YELLOW) Urine Clarity Clear (CLEAR) Urine pH 5.5 (5.0-9.0) Ur Specific [place] 1.025 (1.005-1.025) Urine Protein Trace (NEG/TRACE) mg/dL Urine Glucose (UA) Negative (NEGATIVE) mg/dL Pulse Oximetry Attestation: I have reviewed the pertinent pulse oximetry results. Imaging CT scan - abdomen: Attestation: I have reviewed the pertinent imaging results. Radiologist's impression: IMPRESSION: Enlarged pancreatic head, resulting in intra and extrahepatic ductal dilatation and pancreatic body and tail ductal dilatation, suspicious for pancreatic neoplasm.MRI or CT of the abdomen (pancreatic protocol) with contrast, including diffusion weighted images is recommended for better evaluation. Fecal impaction. Assessment and Plan Assessment and Plan (1) Constipation: Assessment and Plan: Acute * Adm observation * Scheduled Miralax, Senna and Colace * IVF for hydration - see below * Anucort suppositories for associated hemorrhoids * Nursing to ambulate frequently * Encourage PO fluid intake * Likely d/c later today once stool is produced vs in AM pending clinical course (2) Dehydration: Assessment and Plan: Acute * 2/2 poor oral intake in setting of gastric cancer * Encouraged very frequent small meals interspersed with fluid intake throughout the day * NS IVF at 100/hr (3) Weakness generalized: Assessment and Plan: Acute * 2/2 to cancer and poor dietary intake * Encourage frequent PO intake, focused on Protein * Ensure BID * Frequent ambulation (4) Elevated troponin: Assessment and Plan: Chronic * Trop 138, 120 in ED * Trending down and significantly improved from previous (>500) * Pt denies CP/SOB * Unremarkable EKG - old anterior infarct finding only (5) Gastric cancer: Assessment and Plan: Chronic * Follows outpatient with oncology - defer to oncology management (6) Pancreatic cancer: Assessment and Plan: Chronic * Suspected * Outpatient oncologist is currently pursuing a work up for suspected pancreatic CA - defer to oncology management (7) Afib: Assessment and Plan: Chronic * Continue home Coreg & Nifedipine for rate control * Not currently on Anticoagulation (but is on antiplatelet therapy) Qualifiers: Atrial fibrillation type: paroxysmal Qualified Code(s): I48.0 - Paroxysmal atrial fibrillation (8) CAD (coronary artery disease): Assessment and Plan: Chronic * Continue home ASA, Plavix, BB, ACEi and Statin Qualifiers: Coronary Disease-Associated Artery/Lesion type: [place] artery [place] vs. transplanted heart: [place] heart Associated angina: without angina Qualified Code(s): I25.10 - Atherosclerotic heart disease of [place] coronary artery without angina pectoris (9) Chronic kidney disease (CKD): Assessment and Plan: Chronic * Stable at baseline CKD3b * CMP daily (10) Diabetes 1.5, managed as type 2: Assessment and Plan: Chronic * Not on oral antidiabetic meds at home * ACHS glucometer checks * Med SSI for glucose correction (11) Hypertension: Assessment and Plan: Chronic * Continue home coreg, nifedipine, lisinopril, and hydralazine
--- NOTE | 2024-02-11 12:26 | CM.NOTE ---
Rounds made with Dr. Whelan. Discussed plan of care with Trisha and that if Trisha has BM and feels better could possible discharge later today
--- NOTE | 2024-02-11 13:37 | SWNOTE1 ---
SW met with pt to discuss dc needs. Pt has no concerns about discharge once she is medically stable and has a BM. She does not feel well now due to not having a BM for a few days. Pt lives at home with her . Medicare Outpatient Observation Notice reviewed and discussed with patient. Pt. verbalized understanding and signed the form. Original given to patient and copy placed in patient?s chart.
[2024-02-11] MEDS: SUCRALFATE 1 GM TABLET PO ×2 (14:06→22:00)
[2024-02-11] MEDS: ALPRAZOLAM 0.25 MG TABLET PO ×2 (14:06→21:06)
[2024-02-11] MEDS: INSULIN ASPART 300 UNIT/3 ML PEN SUBQ ×2 (17:03→22:06)
[2024-02-11] MEDS: OXYCODONE HCL 5 MG TABLET PO (17:25)
[2024-02-11] MEDS: SENNOSIDES 8.6 MG TABLET 17.2 MG PO (22:00)
[2024-02-11] MEDS: ATORVASTATIN CALCIUM 40 MG TABLET 80 MG PO (22:01)
[2024-02-12] VITALS (12 sets, daily range): BP systolic 131–133; BP diastolic 50–54; PULSE 60–69; TEMP 36.8; O2SAT 94
[2024-02-12] MEDS: 0.9 % SODIUM CHLORIDE 1,000 ML 100 ML IV (02:09)
[2024-02-12 05:21] LABS: Basophils Percent Auto 0.4 % (0.2-2.0); Eosinophils Absolute Auto 0.1 10^3/uL (0.0-0.7); Eosinophils Percent Auto 1.8 % (0.9-7.0); Hematocrit 26.6 % (36.0-48.0); Hemoglobin 8.4 g/dL (12.0-16.0); Immature Granulocytes Abs Auto 0.02 10^3/uL (0.00-0.03); Immature Granulocytes Pct Auto 0.4 % (0.0-0.5); Lymphocytes Absolute Auto 0.7 10^3/uL (1.2-3.8); Lymphocytes Percent Auto 14.7 % (20.5-60.0); Mean Corpuscular HGB Conc 31.6 g/dL (29.9-35.2); Mean Corpuscular Hemoglobin 28.9 pg (26.7-34.0); Mean Corpuscular Volume 91.4 fL (81.0-99.0); Mean Platelet Volume 12.3 fL (9.5-13.5); Monocytes Absolute Auto 0.5 10^3/uL (0.3-0.8); Monocytes Percent Auto 8.9 % (1.7-12.0); Neutrophils Absolute Auto 3.7 10^3/uL (1.4-6.5); Neutrophils Percent Auto 73.8 % (43.0-75.0); Platelet Count 135 10^3/uL (150-450); Red Blood Count 2.91 10^6/uL (4.20-5.40); Red Cell Distribution Width 13.7 % (11.0-15.0)
--- NOTE | 2024-02-12 06:00 | XR_ITS ---
The [address] [address] Patient Name: ELIJAH WELCH MRN: [id number] date: 1945 Sex: F Assigned Patient Location: [place] Current Patient Location: [place] Accession/Order Number: [id number] Exam Date: 02/12/2024 06:21 Report Date: 02/12/2024 09:12 At the request of: ONEAL IRVIN Procedure: XR acute abdomen series EXAMINATION: XR acute abdomen series HISTORY: Fecal impaction, monitor for resolution COMPARISON: 02/10/2024 FINDINGS: LUNGS: The right lung is clear. Moderate left basilar infiltrate partially obscuring the hemidiaphragm MEDIASTINUM: No abnormal widening. Left pacemaker. Median sternotomy wires BOWEL GAS PATTERN: Non-obstructed. Large amount of stool in the sigmoid colonr and rectum. The rectum measures 7.9 cm transversely FREE AIR: None. CALCIFICATIONS: None significant. BONES: Rotatory levoscoliosis with moderate degenerative changes OTHER: Negative. XR/XR acute abdomen series IMPRESSION: Left basilar infiltrate Large amount of stool in the sigmoid colon and rectum Electronically authenticated by: SILVANA CLAY Date: 02/12/2024 09:12
[2024-02-12 06:02] LABS: Alanine Aminotransferase 58 U/L (14-59); Albumin Globulin Ratio 0.6; Albumin Level 2.1 g/dL (3.4-5.0); Alkaline Phosphatase 282 U/L (46-116); Anion Gap 11.6; Aspartate Amino Transferase 47 U/L (15-37); BUN Creatinine Ratio 15.4; Bilirubin Total 0.5 mg/dL (0.2-1.0); Calcium 7.8 mg/dL (8.5-10.1); Chloride 110 mmol/L (98-107); Estimated GFR (African America 39 (>=60); Estimated GFR (Non-African Ame 32 (>=60); Globulin 3.4 g/dL; Glucose 193 mg/dL (74-106); Potassium 3.6 mmol/L (3.5-5.1); Sodium 139 mmol/L (136-145); Total Protein 5.5 g/dL (6.4-8.2)
[2024-02-12] MEDS: SUCRALFATE 1 GM TABLET PO ×2 (06:08→15:29)
[2024-02-12] MEDS: NIFEdipine 30 MG TAB.ER.24 60 MG PO (08:49)
[2024-02-12] MEDS: ENOXAPARIN SODIUM 40 MG/0.4 ML SYRINGE SUBQ (08:50)
[2024-02-12] MEDS: LISINOPRIL 10 MG TABLET PO (08:50)
[2024-02-12] MEDS: CHOLECALCIFEROL (VITAMIN D3) 25 MCG/1,000 UNITS TABLET 50 MCG PO (08:50)
[2024-02-12] MEDS: CARVEDILOL 25 MG TABLET PO (08:50)
[2024-02-12] MEDS: DOCUSATE SODIUM 100 MG CAPSULE PO (08:50)
[2024-02-12] MEDS: CLOPIDOGREL BISULFATE 75 MG TABLET PO (08:50)
[2024-02-12] MEDS: FAMOTIDINE 20 MG TABLET PO (08:50)
[2024-02-12] MEDS: POLYETHYLENE GLYCOL 3350 17 GM POWDER PACKET PO ×2 (08:50→15:29)
[2024-02-12] MEDS: HYDROCORTISONE ACETATE 25 MG RECTAL SUPPOSITORY PR (08:52)
[2024-02-12] MEDS: INSULIN ASPART 300 UNIT/3 ML PEN SUBQ (08:52)
--- NOTE | 2024-02-12 10:45 | P.DS_ITS ---
<Statement entered by David Whelan MD - 02/12/24 19:03> Patient seen and examined, agree with assessment and plan below. History of gastric cancer and suspected pancreatic cancer. To ER with weakness and constipation. CT with fecal impaction and medication added. Strength improved with IV fluids. Started bowel regimen and had a few BM. Abdomen not as distended. Discharged in stable condition. Diagnosis: 1. Dehydration 2. Opiate induced constipation 3. Weakness 4. Gastric cancer 5. Pancreatic cancer 6. Elevated troponin 7. Afib 8. CAD DS: Providers Provider Date of admission: 02/10/24 17:59 Primary care physician: Sudha Lubin MD Consults: 02/11/24 Occupational Therapy Eval and Treat Routine Reason for consultation: weakness, mobility, inability to dress Physical Therapy Eval and Treat Routine Reason for consultation: Weakness, mobility Discharging clinician: Isha Church DS: Diagnosis Discharge Diagnosis (1) Constipation: (2) Dehydration: (3) Weakness generalized: (4) Elevated troponin: (5) Gastric cancer: (6) Pancreatic cancer: (7) Anemia: Assessment and plan: Acute on chronic (8) Afib: Qualifiers: Atrial fibrillation type: paroxysmal Qualified Code(s): I48.0 - Paroxysmal atrial fibrillation (9) CAD (coronary artery disease): Qualifiers: Associated angina: without angina Coronary Disease-Associated Artery/Lesion type: [place] artery [place] vs. transplanted heart: [place] heart Qualified Code(s): I25.10 - Atherosclerotic heart disease of [place] coronary artery without angina pectoris (10) Chronic kidney disease (CKD): (11) Diabetes 1.5, managed as type 2: (12) Hypertension: DS: Summary Hospital Course Hospital Course: The patient was admitted to observation with opiate-induced constipation/fecal impaction, dehydration, and weakness. She was treated with IV fluids for dehydration and multi agent stool softeners were prescribed throughout the day. Her weakness improved with IV fluids. After 24 hours she was finally able to produce a large bowel movement and then again the following morning. An abdomin al x-ray confirms persistence of a large stool burden in the sigmoid and rectum, but the patient is not experiencing discomfort at this time. She will be given Levsin for any colicky abdominal discomfort that she experiences and has been encouraged to continue with frequent stool softener administration until she has fully emptied her colon. In addition she is encouraged to take a prophylactic d ose of stool softener daily at least, and up to 3 times daily if needed, while she is taking opioids. In addition to the above, the patient was noted to have a UTI on admission and was treated with Rocephin during her hospitalization. She is being discharged on cefdinir for 5 more days to complete treatment. An x-ray obtained on the day of discharge noted left lower lobe infiltrate, but we clinically suspect atelectasis as the patient has no clinical signs of pneumonia; denies pleuritic pain, shortness of breath, and no evidence of hypoxia, leukocytosis, or fever. The patient is being discharged home in stable condition. She should follow-up with her PCP within 5 to 7 days and with her oncologist as previously scheduled for continued workup of possible pancreatic cancer in addition to her gastric cancer. Time Spent with Patient Time attestation: Total time spent providing and/or coordinating discharge services: Time spent: greater than 30 minutes Specific discharge activities: Physical exam, discussion of discharge plan, questions answered. Exam Constitutional Vital Signs, click to edit/add: Last Vital Signs Temp 98.3 F 02/12/24 04:46 Pulse 62 02/12/24 10:00 Resp 18 02/12/24 04:46 BP 133/50 02/12/24 08:56 Pulse Ox 94 L 02/12/24 04:46 O2 Del Method Room Air 02/12/24 04:46 Common normals: no apparent distress, oriented x3 and alert General appearance: cooperative Orientation/consciousness: Yes awake HENMT Common normals: normocephalic and head/scalp atraumatic Eye Common normals: PERRL, EOMs intact bilaterally, conjunctivae normal and no scleral icterus Neck & C-Spine Common normals: no JVD Respiratory Common normals: normal respiratory effort, no use of accessory muscles and clear to auscultation bilaterally Effort & inspection: able to speak in complete sentences and symmetric chest movement Cardio Common normals: no JVD, regular rate, regular rhythm, S1 normal heart sound, S2 normal heart sound and peripheral pulses 2+ throughout Heart sounds: murmur (HSM 4/6) GI Common normals: Normal to inspection, nondistended, normoactive bowel sounds present and soft to palpation Palpation: tender (Mild, diffuse. Greatest at RUQ); no guarding and no rebound tenderness present Bladder/kidney exam: bladder normal to palpation Extremity Common normals: normal to inspection, full ROM, normal capillary refill and no pedal edema General: no clubbing and no cyanosis Neuro Common normals: moves all extremities, no focal motor deficits and no sensory deficits noted Speech: speech normal Psych Common normals: mental status grossly normal and activity/motor behavior normal DS: Data Data Completed and Pending Labs on day of discharge: Labs from last 24 hours 02/12/24 04:44 WBC 5.0 RBC 2.91 L Hgb 8.4 L Hct 26.6 L MCV 91.4 MCH 28.9 MCHC 31.6 RDW 13.7 Plt Count 135 L MPV 12.3 Neut % (Auto) 73.8 Lymph % (Auto) 14.7 L [place] % (Auto) 8.9 Eos % (Auto) 1.8 Baso % (Auto) 0.4 Neut # (Auto) 3.7 Lymph # (Auto) 0.7 L [place] # (Auto) 0.5 Eos # (Auto) 0.1 Baso # (Auto) 0.0 Abs Immat Gran (auto) 0.02 Imm/Tot Granulo (auto) 0.4 Sodium 139 Potassium 3.6 Chloride 110 H Carbon Dioxide 21.0 Anion Gap 11.6 BUN 24.0 H Creatinine 1.56 H Est GFR ( Amer) 39 L Est GFR (Non-Af Amer) 32 L BUN/Creatinine Ratio 15.4 Glucose 193 H Calcium 7.8 L Total Bilirubin 0.5 AST 47 H ALT 58 Alkaline Phosphatase 282 H Total Protein 5.5 L Albumin 2.1 L Globulin 3.4 Albumin/Globulin Ratio 0.6 Preliminary micro results at discharge 02/11/24 03:30 Urine Culture - Preliminary Urine,Clean Catch Imaging Acute abdomen x-ray: Attestation: I have reviewed the pertinent imaging results. Radiologist's impression: IMPRESSION: Left basilar infiltrate Large amount of stool in the sigmoid colon and rectum Discharge Plan Discharge Disposition: Home, Self-Care Discharge Medications: New oxycodone 5 mg Tablet 5 mg PO Q4H PRN (Reason: pain) Qty: 30 0RF polyethylene glycol 3350 [Miralax] 17 gram/dose powder 17 g PO BID PRN (Reason: constipation) Qty: 119 0RF cefdinir 300 mg capsule 300 mg PO BID 5 Days Qty: 10 0RF hyoscyamine sulfate 0.125 mg tablet, sublingual 0.125 mg PO Q6H PRN (Reason: abdominal discomfort) Qty: 20 0RF Continued famotidine [Acid Controller] 20 mg tablet 20 mg PO Q12H atorvastatin 80 mg tablet 80 mg PO .qhs carvedilol 25 mg tablet 25 mg PO Q12H hydralazine 25 mg tablet 25 mg PO Q12H nifedipine 30 mg tablet extended release 60 mg PO DAILY clopidogrel 75 mg tablet 75 mg PO DAILY (DME) FreeStyle Stephy 2 Sensor Kit MISCELLANEOUS (DME) FreeStyle Stephy 2 [place] Misc MISCELLANEOUS cholecalciferol (vitamin D3) [Vitamin D3] 2,000 unit PO DAILY Patient Comments: vitamin D deficiency sucralfate 1 gram tablet 1 g PO TID lisinopril 10 mg tablet 10 mg PO .qd alprazolam 0.25 mg tablet 0.25 mg PO BID PRN (Reason: anxiety) Changed docusate sodium [Stool Softener] 100 mg capsule 100 mg PO DAILY PRN (Reason: constipation) Qty: 0 0RF Rx Instructions: May take up to three times daily Activity: increase activity as tolerated Diet: advance to your usual diet Diet Detail: Eat several small meals througout the day, focusing on protein intake. Drink fluids between meals Print Language: [place]og[place] Patient Instructions: Constipation (DC) Activity Restrictions/Additional Instructions: - Start Cefdinir on 02/13/24 - Follow up with Oncology as previously scheduled - Take Colace and Miralax as needed to treat constipation, especially if taking oxycodone. Forms: Portal Instructions Follow Up Appointments: February 17 @ 10:45am with Dr. Lubin [phone]
[2024-02-12] MEDS: CEFTRIAXONE 1,000 MG in 0.9 % SODIUM CHLORIDE 50 ML 100 MG IV (11:01)
--- NOTE | 2024-02-12 12:25 | CM.NOTE ---
02/12/24 10:[address] Whelan discussed the importance of keeping the bowels moving and ways to help with that. Trisha verbalized understanding. Plan is for discharge today.
[2024-02-12] MEDS: HYOSCYAMINE SULFATE 0.125 MG TAB.SUBL SL (12:48)
--- NOTE | 2024-02-13 15:38 | CM.DCFOLLOWU ---
1st attempt 02/13/24
--- NOTE | 2024-02-14 15:33 | CM.DCFOLLOWU ---
Person spoke with:patient How are you feeling? fine How is your pain? none Did you understand your discharge instructions? yes Do you have any questions about your discharge instructions? no Were you given any prescriptions at discharge? yes Were you able to get your prescriptions filled? yes Do you understand how to take your medications as ordered? yes Do you have any questions about your follow up appointment and do you plan to keep your follow up appointment? none, reviewed follow up Is there anything else that you would like to discuss? no Questions/Comments/Concerns/Other: no
== END 2024-02-12 15:59 | disposition home or self-care (01) ==
LOC: ER 17:38 → MS 18:03
PROVIDERS: Physician Assistant; Admitting Provider Family Medicine; Emergency Provider Emergency Medicine; PCP Family Medicine; Visit Provider Family Medicine
DX: E86.0 Dehydration (principal); K59.03 Drug induced constipation; T40.605A Adverse effect of unspecified narcotics, initial encounter; R53.1 Weakness; C16.9 Malignant neoplasm of stomach, unspecified; R79.89 Other specified abnormal findings of blood chemistry; I48.0 Paroxysmal atrial fibrillation; I25.10 Atherosclerotic heart disease of native coronary artery without angina pectoris; K21.9 Gastro-esophageal reflux disease without esophagitis; N39.0 Urinary tract infection, site not specified; I12.9 Hypertensive chronic kidney disease with stage 1 through stage 4 chronic kidney disease, or unspecified chronic kidney disease; N18.32 Chronic kidney disease, stage 3b; Z85.3 Personal history of malignant neoplasm of breast; B96.20 Unspecified Escherichia coli [E. coli] as the cause of diseases classified elsewhere; B95.1 Streptococcus, group B, as the cause of diseases classified elsewhere; Z79.899 Other long term (current) drug therapy; Z79.82 Long term (current) use of aspirin; Z79.02 Long term (current) use of antithrombotics/antiplatelets; Z95.0 Presence of cardiac pacemaker
CPT/HCPCS: 36415; 71045; 74022; 74176; 80053; 81001; 83605; 83690; 83735; 84484; 85025; 87086; 87150; 87186; 93005; 96361; 96365; 96366; 96372; 96375; 96376; 97165; 99285; G0328; G0378; J0360; J0696; J1170; J1650; J2405

== ENCOUNTER 2024-03-05 15:27 | Outpatient (OUT) | payer MEDICARE, SELFPAY ==
--- OUTSIDE RECORDS SUMMARY | 2024-03-05 15:40 | XMS_ITS | CCD ---
Author Organization [facility] Care Team Providers Care Patient Support Associate Name Role Phone WALLACE, SADI P Unavailable [...] DR SANYA De La Torre Admitting Unavailable RIKVA, DR SANYA De La Torre Attending Unavailable [...] Unavailable FLANNERY MONTEZ Consulting Unavailable DIAB ., MARLY Consulting Unavailable RIVKA, DR SANYA De La Torre Admitting Unavailable RIVKA, DR SANYA De La Torre Primary Care Unavailable RIVKA, DR SANYA De La Torre Attending Unavailable RIVKA, DR SANYA De La Torre Consulting Unavailable Sanya Tineo MD Primary Care Provider DIRK ONEILL Attending Unavailable ZOEY HERRING Referring Unavailable DIRK ONEILL Attending Unavailable JENNIFER MORALES Attending Unavailable SANYA TINEO Referring Unavailable TIMMISJENNIFER Attending Unavailable DIRK ONEILL Attending Unavailable ALVAREZ, MARGARET Referring Unavailable ALVAREZ, MARGARET Referring Unavailable TIEN, TU Referring Unavailable ANDREA QUARLES Referring Unavailab le ALVAREZ, MARGARET Referring Unavailable MOUKARBEL, TOÑO Referring Unavailable BRITTANYMANDI Attending Unavailable MOUKARBEL, TOÑO Admitting Unavailable MOUKARBEL, TOÑO Attending Unavailable TIEN, TU Admitting Unavailable DG, JOSR Referring Unavailable BEBO MCNULTY Attending Unavailable ALVAREZ, MARGARET Referring Unavailable MOUKARBEL, TOÑO Referring Unavailable BRITTANY, MANDI Referring Unavailable MOUKARBEL, TOÑO Attending Unavailable TAYLOR PIÑA Attending Unavailable MOUKARBEL, TOÑO Attending Unavailable MOUKARBEL, TOÑO Attending Unavailable GANGJACKSON, ANDREA WU Referring Unavailab le MOUKARBEL, TOÑO Attending Unavailable TIEN, TU Referring Unavailable MOUKARBEL, TOÑO Referring Unavailable MOUKARBEL, TOÑO Attending Unavailable MOUKARBEL, TOÑO Referring Unavailable TIEN, TU Referring Unavailable Aman Capellan MD Unavailable Sanya Tineo MD Primary Care Provider Edwardo Hanna MD Unavailable MD Sanya Tineo Primary Care Provider [phone] MD Keyla Lua Attending Provider [phone] NON STAFF Referring Provider Unavailable EDWARDO HANNA Attending Unavailable SANYA TINEO Referring Unavailable SANYA TINEO E Primary Care Unavailable SANYA TINEO E Primary Care Unavailable MD Sanya Tineo Primary Care Provider MD Keyla Lua Attending Provider [phone] NON STAFF Referring Provider Unavailable MD Sanya Tineo Primary Care Provider [phone] MD Keyla Lua Attending Provider [phone] NON STAFF Referring Provider Unavailable MAURICIO, SHANON J Referring Unavailable TINEO, SANYA E Primary Care Unavailable MAURICIO, SHANON J Referring Unavailable TINEO SANYA E Primary Care Unavailable SMOOTH COELHO Attending Unavailable AMAN CAPELLAN Referring Unavailable TINEO, SANYA E Primary Care Unavailable SMOOTH COELHO Attending Unavailable SMOOTH COELHO Referring Unavailable SANYA TINEO Primary Care Unavailable MD Sanya Tineo Primary Care Provider [phone] MD Keyla Lua Attending Provider [phone] NON STAFF Referring Provider Unavailable Keyla Lua Admitting Unavailable Keyla Lua Attending Unavailable NON STAFF Referring Unavailable Sanya Tineo Primary Care Unavailable MD Sanya Tineo Primary Care Provider [phone] MD Keyla Lua Attending Provider NON STAFF Referring Provider Unavailable Allergies Allergy Classification Reported Allergen(s) Allergy Type Date of Onset Reaction(s) Facility (2 sources) Meperidine Drug Allergy 06-16-2009 [facility] Repository (19 sources) Meperidine; Translations: [MEPERIDINE] Drug Allergy 09-10-2022 Psychosis [facility] Healthcare Work Phone: (1 source) Meperidine Drug Allergy 08-28-2023 [facility] (1 source) Meperidine Drug Allergy 02-29-2024 [facility] Repository Medications Current Medications Medication Drug [...] day Active atorvastatin 80 mg oral tablet (20 sources) HMG-CoA Reductase Inhibitor Start: 02-17-2023 take [...] 2023 9:19am cholecalciferol 0.05 mg oral capsule (19 sources) Vitamin D Start: 12-03-2023 take 1 [...] day Active clopidogrel 75 mg oral tablet (20 sources) P2Y12 Platelet Inhibitor Start: 02-17-2023 take 75 mg by mouth once daily Clopidogrel Active 75 MG PO Daily February 17, 2023 12:00am Continuous Blood Gluc Sensor (FreeStyle [place]phy 2 Sensor[place] [facility] [place] Continuous Blood Gluc Sensor (FreeStyle Stephy 2 Sensor[place] [facility] [place] Flash Glucose Sensor (Freestyle Stephy 2 Sensor) kit (12 sources) Start: 01-14-2024 Flash Glucose Sensor (Freestyle Stephy 2 Sensor) kit Active 0 .ROUTE .COMPLEX 2 January 14, 2024 4:31pm USE DIRECTED Start: 01-14-2024 End: 01-14-2024 Flash Glucose Sensor (Freest yle Stephy 2 Sensor) kit Discontinued 0 .Route January 14, 2024 12:00am January 14, 2024 4:31pm As directed FreeStyle Stephy 14 Day [place] - (10 sources) FreeStyle Stephy 14 Day [place] - as directed Active FreeStyle Stephy 14 [...] 17, 2023 12:00am February 20, 2023 8:37am hyoscyamine sulfate 0.125 mg oral tablet (3 sources) Start: 02-18-2024 Hyoscyamine Sulfate Active 0.125 MG PO 2-4 TIMES PER DAY February 18, 2024 12:00am ketorolac tromethamine 5 mg/ml ophthalmic solution (1 [...] 09/20/2023 Active melatonin 3 mg oral tablet (12 sources) Start: 01-17-2024 take 3 mg by [...] Active oxyCODONE hydrochloride 5 mg oral tablet (4 sources) Opioid Agonist Start: 01-28-2024 take 0.5-1 tablets by mouth every four to six hours as needed Oxycodone Active 0 PO EVERY 4-6 HOURS 40 January 28, 2024 0.5-1 tab orally every 4-6 hours PRN; polyethylene glycol 3350 83810 mg powder for oral solution (3 sources) Osmotic Laxative Start: 02-18-2024 Polyethylene Glycol 3350 (Miralax) 17 gram powder in packet Active 17 GM PO Twice daily February 18, 2024 12:00am predniSONE 20 mg oral tablet (2 sources) take 1 tablet by mouth every twenty-four hours predniSONE 20 MG 1 tablet Orally Once a day for 5 days Active promethazine hydrochloride 25 mg oral tablet (2 sources) Phenothiazine Start: 02-19-2024 take 25 mg by mouth every six hours Promethazine Active 25 MG PO Every 6 hours 30 February 19, 2024 12:00am Sennosides (3 sources) Start: 02-18-2024 take 12 mg by mouth once daily at bedtime Sennosides Active 12 MG PO Daily at bedtime February 18, 2024 12:00am sucralfate 1000 mg oral tablet (4 sources) Aluminum Complex Start: 02-01-2024 take 1 g [...] (Avastin) intravitreal chemo injection 1.25 mg calcitriol 0.66247 mg oral capsule (9 sources) Vitamin D3 Analog Start: 02-17-2023 End: 02-17-2023 Calcitriol Discontinued 0.25 MCG PO February 17, 2023 12:00am February 17, 2023 10:44pm take [address] [facility] three times weekly Calcitriol 0.25 MCG 1 capsule [address] Thr ee times a Week Active docusate sodium 100 mg oral capsule (19 sources) Start: 02-17-2023 End: 12-05-2023 take 1 capsule by mouth once daily as needed Docusate Sodium Discontinued 100 MG PO Daily December 03, 2023 12:00am December 05, 2023 10:16am FreeTextSi capsule as needed Orally Once a day; Note: Source Status: Taking; Provider: Rivka Haley ( ) famotidine 20 mg oral tablet (7 sources) Histamine-2 Receptor Antagonist Start: 01-17-2024 End: [...] 10/22/2023 Active lisinopril 10 mg oral tablet (20 sources) Angiotensin Converting Enzyme Inhibitor Start: 02-20-2023 [...] day Active spironolactone 25 mg oral tablet (7 sources) Aldosterone Antagonist Start: 02-17-2023 End: 02-20-2023 [...] Translations: [Abdominal pain] Onset: 4 Episodic Acute and unspecified renal failure (7 sources) Acute renal failure syndrome; Translations: [Acute kidney failure, unspecified] Onset: 4 07-19-2023 Episodic Acute cerebrovascular disease (1 source) Cerebrovascular accident; Translations: [Cerebral infarction, unspecified] Onset: 3 07-19-2023 Chronic Acute myocardial infarction (5 sources) Myocardial infarction; Translations: [Non-ST elevation (NSTEMI) myocardial infarction] Onset: 3 07-19-2023 Chronic Administrative/social admission (20 sources) Patient encounter status; Translations: [Other specified counseling] 01-18-2024 Episodic Anal and rectal conditions (12 sources) Rectal mass; Translations: [Other specified diseases of anus and rectum] 12-05-2023 Episodic Anxiety disorders (13 sources) Generalized anxiety disorder; Translations: [Generalized anxiety disorder] Onset: 3 Chronic Cancer of breast (3 sources) Malignant neoplasm of overlapping sites of unspecified female breast; Translations: [Malignant tumor of breast ] Onset: 2 07-19-2023 Chronic Cancer of breast (19 sources) Personal history of malignant neoplasm of breast; Translations: [History of malignant neoplasm of breast] Onset: 2 Episodic Cancer of other GI organs; peritoneum (3 sources) Malignant neoplasm of gastrointestinal tract; Translations: [Malignant neoplasm of ill-defined sites within the digestive system] Onset: 4 01-03-2024 Chronic Cancer of pancreas (8 sources) Surgical pancreatic margin involved by malignant neoplasm; Translations: [Malignant neoplasm of pancreas, unspecified] Onset: 4 01-03-2024 Chronic Cancer of stomach (20 sources) Malignant tumor of body of stomach; [...] angina pectoris; Translations: [Atherosclerotic heart disease of [place] coronary artery without angina pectoris] Onset: 3 Chronic Deficiency and other anemia (1 source) Anemia in chronic kidney disease; Translations: [ANEMIA IN CHRONIC KIDNEY DISEASE] Onset: 3 Chronic Deficiency and other anemia (7 sources) Anemia; Translations: [Anemia, unspecified] Onset: 7 07-19-2023 Episodic Deficiency and other anemia (7 sources) Anemia, unspecified; Translations: [Anemia, unspecified] Onset: 4 12-05-2023 Episodic Diabetes mellitus with complications (16 sources) Hyperglycemia due to type 2 diabetes mellitus; Translations: [Type 2 diabetes mellitus with hyperglycemia] Onset: 4 Chronic Diabetes mellitus without complication (17 sources) Type 2 diabetes mellitus; Translations: [Type [...] Onset: 3 Chronic Fluid and electrolyte disorders (16 sources) Hyperkalemia; Translations: [Hyperkalemia] 07-18-2023 Episodic Heart valve disorders (20 sources) Aortic stenosis, [...] (1 source) Localized enlarged lymph nodes Episodic Maintenance chemotherapy; radiotherapy (2 sources) Patient encounter status; Translations: [Encounter for antineoplastic chemotherapy] 02-29-2024 Chronic Malaise and fatigue (3 sources) Weakness; Translations: [...] Chronic Other aftercare (1 source) 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; Translations: [OTH SENIOR LIVING CURRENT DRUG THERAPY] Onset: 3 Episodic Other aftercare (5 sources) Encounter for palliative care; Translations: [Encounter for palliative care] 01-28-2024 Episodic Other circulatory disease (1 source) Personal history of transient ischemic attack (TIA), and cerebral infarction without residual deficits; Translations: [PERS HX TIA AND CI NO RESID DEFICIT] Onset: 3 Episodic Other circulatory disease (2 sources) Personal history of other diseases of the circulatory system Episodic Other circulatory disease (6 sources) Low blood pressure; Translations: [Hypotension, unspecified] 12-05-2023 Episodic Other circulatory disease (6 sources) Hypotension, unspecified; Translations: [Hypotension, unspecified] 12-05-2023 [...] left eye] Onset: 4 08-21-2023 Chronic Other gastrointestinal disorders (2 sources) Therapeutic opioid induced constipation; Translations: [Drug induced constipation] 02-27-2024 Episodic Other gastrointestinal disorders (2 sources) Drug induced constipation; Translations: [Other constipation] 02-18-2024 Episodic Other liver diseases (1 source) High lipase [...] 3 07-24-2023 Episodic Other nervous system disorders (5 sources) Pain due to neoplastic disease; Translations: [Neoplasm related pain (acute) (chronic)] 01-25-2024 Chronic Other nervous system disorders (5 sources) Neoplasm related pain (acute) (chronic); Translations: [...] Postnasal drip Episodic Pancreatic disorders (not diabetes) (20 sources) Mass of pancreas; Translations: [Other specified diseases of pancreas] Onset: 4 12-05-2023 Episodic Residual codes; unclassified (11 sources) [...] KIDNEY DISEASE STG 3 UNSP] Onset: 2 Unclassified (1 source) Esophagitis, unspecified without bleeding; Translations: [Esophagitis, unspecified without bleeding] Onset: 4 Past or Other Problems Problem Classification Problem Date Documented Da te Episodic/Chronic Conditions associated with dizziness or vertigo (3 sources) Postural dizziness; Translations: [Dizziness and giddiness] Onset: 02-05-2023 07-19-2023 Episodic Coronary atherosclerosis and other heart disease (3 sources) Presence of aortocoronary bypass graft; Translations: [PRESENCE AORTOCORONARY BYPASS GRAFT] Onset: 09-12-2022 Episodic Genitourinary symptoms and ill-defined conditions (1 [...] Unclassified (1 source) Cough, unspecified type R05.9 Unclassified (1 source) Esophagitis, unspecified without bleeding; Translations: [Esophagitis, unspecified without bleeding] Onset: 02-20-2024 Results Test Name Value Interpretation Reference Range Facility Albumin [Mass/volume] in Ser um or Plasma by Bromocresol green (BCG) dye binding methoOrdered By: Keyla Lua on 02-29-2024 Albumin BCG dye [Mass/Vol] 3.2 g/dL Low 3.5-5.7 [facility] Carbohydrate Antigen 19-9on 02-29-2024 Carbohydrate Antigen 19-9 8655 High 0-35 [facility] Comment on above: Result Comment: Resu lts confirmed on dilution. [facility] Electrochemiluminescence Immunoassay (ECLIA) Values obtained with different assay methods or kits cannot be used interchangeably. Results cannot be interpreted as absolute evidence of the presence or absence of malignant disease. Performed at: [facility] [place] [id number] Superintendent Refuse Disposal: Akash Nugent PhD, Phone: [phone] PERFORMED BY: [place] [address] PATHOLOGIST APPRAISAL MANAGER MELISSA QUINN M.D. Performed By: #### C A19 #### [facility] , #### CMP, TYLER, FE and TIBC, CBC, [id number] #### [address] Complete Blood Count Auto Di ffOrdered By: Keyla Lua on 02-29-2024 Basophils (Bld) [#/Vol] 0.1 10*3/uL 0.0-0.2 [facility] Comment on above: Result Comment: PERF ORMED BY: [place] [address] PATHOLOGIST APPRAISAL MANAGER MELISSA QUINN M.D. Performed By: #### C A19 #### [facility] , #### CMP, TYLER, FE and TIBC, CBC, [id number] #### [address] Basophils/100 WBC (Bld) 1.1 % . [facility] Comment on above: Performed By: #### C A19 #### [facility] , #### CMP, TYLER, FE and TIBC, CBC, [id number] #### [address] Eosinophils (Bld) [#/Vol] 0.1 10*3/uL 0.0-0.45 [facility] Comment on above: Performed By: #### C A19 #### [facility] , #### CMP, TYLER, FE and TIBC, CBC, [id number] #### [address] Eosinophils/100 WBC (Bld) 2.4 % . [facility] Comment on above: Performed By: #### C A19 #### [facility] , #### CMP, TYLER, FE and TIBC, CBC, [id number] #### [address] Erythrocyte distribution width (RBC) [Ratio] 15.2 % 11.9-15.3 [facility] Comment on above: Performed By: #### C A19 #### [facility] , #### CMP, TYLER, FE and TIBC, CBC, [id number] #### [address] Hematocrit (Bld) [Volume fraction] 29.6 % Low 34.0-46.4 [facility] Comment on above: Performed By: #### C A19 #### [facility] , #### CMP, TYLER, FE and TIBC, CBC, [id number] #### [address] Hemoglobin (Bld) [Mass/Vol] 9.8 g/dL Low 11.8-15.4 [facility] Comment on above: Performed By: #### C A19 #### [facility] , #### CMP, TYLER, FE and TIBC, CBC, [id number] #### [address] Lymphocytes (Bld) [#/Vol] 0.9 10*3/uL Low 1.00-4.8 [facility] Comment on above: Performed By: #### C A19 #### [facility] , #### CMP, TYLER, FE and TIBC, CBC, [id number] #### [address] Lymphocytes/100 WBC (Bld) 18.3 % . [facility] Comment on above: Performed By: #### C A19 #### [facility] , #### CMP, TYLER, FE and TIBC, CBC, [id number] #### [address] MCH (RBC) [Entitic mass] 28.8 pg 24.7-34.3 [facility] Comment on above: Performed By: #### C A19 #### [facility] , #### CMP, TYLER, FE and TIBC, CBC, [id number] #### [address] MCV (RBC) [Entitic vol] 87.0 fL 80-100 [facility] Comment on above: Performed By: #### C A19 #### [facility] , #### CMP, TYLER, FE and TIBC, CBC, [id number] #### [address] Monocytes (Bld) [#/Vol] 0.4 10*3/uL 0.0-0.8 [facility] Comment on above: Performed By: #### C A19 #### [facility] , #### CMP, TYLER, FE and TIBC, CBC, [id number] #### [facility] [address] [place] [address] [place] Monocytes/100 WBC (Bld) 8.7 % . [facility] Comment on above: Performed By: #### C A19 #### [facility] , #### CMP, TYLER, FE and TIBC, CBC, [id number] #### [facility] [address] [place] [address] [place] Neutrophils (Bld) [#/Vol] 3.4 10*3/uL 1.8-7.7 [facility] Comment on above: Performed By: #### C A19 #### [facility] , #### CMP, TYLER, FE and TIBC, CBC, [id number] #### [address] Neutrophils/100 WBC (Bld) 69.5 % . [facility] Comment on above: Performed By: #### C A19 #### [facility] , #### CMP, TYLER, FE and TIBC, CBC, [id number] #### [facility] [address] [place] [address] [place] Platelet mean volume (Bld) [Entitic vol] 10.1 fL 6.3-10.7 [facility] Comment on above: Performed By: #### C A19 #### [facility] , #### CMP, TYLER, FE and TIBC, CBC, [id number] #### [facility] [address] [place] [address] [place] Platelets (Bld) [#/Vol] 178 10*3/uL 150-450 [facility] Comment on above: Performed By: #### C A19 #### [facility] , #### CMP, TYLER, FE and TIBC, CBC, [id number] #### [facility] [address] [place] [address] RBC (Bld) [#/Vol] 3.40 10*6/uL Low 3.60-5.00 [facility] Comment on above: Performed By: #### C A19 #### [facility] , #### CMP, TYLER, FE and TIBC, CBC, [id number] #### [address] WBC (Bld) [#/Vol] 4.9 10*3/uL 3.8-11.6 [facility] Comment on above: Performed By: #### C A19 #### [facility] , #### CMP, TYLER, FE and TIBC, CBC, [id number] #### [address] Complete Blood Count Auto Di ffon 02-29-2024 Mean Corpuscular HGB Conc 33.1 g/dL Normal 32.0-35.0 [facility] Comment on above: Performed By: #### C A19 #### [facility] , #### CMP, TYLER, FE and TIBC, CBC, [id number] #### [address] NRBC% 0.1 /100{WBC} Normal 0-0.5 [facility] Comment on above: Performed By: #### C A19 #### [facility] , #### CMP, TYLER, FE and TIBC, CBC, [id number] #### [address] Comprehensive Metabolic Pane shima 02-29-2024 Albumin [Mass/Vol] 3.2 g/dL Low 3.5-5.7 [facility] Comment on above: Performed By: #### C A19 #### [facility] , #### CMP, TYLER, FE and TIBC, CBC, [id number] #### [address] Creatinine Clr Calc Pharmacy 23.52 Normal [facility] Comment on above: Performed By: #### C A19 #### [facility] , #### CMP, TYLER, FE and TIBC, CBC, [id number] #### [address] GFR/1.73 sq M.predicted MDRD (S/P/Bld) [Vol rate/Area] 34.081 mL/min/{1.73_m2} Normal [facility] Comment on above: Performed By: #### C A19 #### [facility] , #### CMP, TYLER, FE and TIBC, CBC, [id number] #### [address] Comprehensive Metabolic Pane lOrdered By: Keyla Lua on 02-29-2024 Albumin/Globulin [Mass ratio] 1.1 {ratio} [facility] Comment on above: Performed By: #### C A19 #### [facility] , #### CMP, TYLER, FE and TIBC, CBC, [id number] #### [address] ALP [Catalytic activity/Vol] 310 U/L High 34-104 [facility] Comment on above: Performed By: #### C A19 #### [facility] , #### CMP, TYLER, FE and TIBC, CBC, [id number] #### [facility] [address] [place] [address] ALT [Catalytic activity/Vol] 40 U/L 7- [facility] Comment on above: Performed By: #### C A19 #### [facility] , #### CMP, TYLER, FE and TIBC, CBC, [id number] #### [address] Anion gap [Moles/Vol] 18.8 mmol/L High 6.0-15.0 [facility] Comment on above: Performed By: #### C A19 #### [facility] , #### CMP, TYLER, FE and TIBC, CBC, [id number] #### [address] AST [Catalytic activity/Vol] 54 U/L High 13-39 [facility] Comment on above: Performed By: #### C A19 #### [facility] , #### CMP, TYLER, FE and TIBC, CBC, [id number] #### [address] Bilirubin [Mass/Vol] 1.0 mg/dL 0.3-1.0 [facility] Comment on above: Performed By: #### C A19 #### [facility] , #### CMP, TYLER, FE and TIBC, CBC, [id number] #### [address] Calcium [Mass/Vol] 9.2 mg/dL 8.6-10.3 [facility] Comment on above: Performed By: #### C A19 #### [facility] , #### CMP, TYLER, FE and TIBC, CBC, [id number] #### [place] [address] [place] Chloride [Moles/Vol] 103 mmol/L 98-107 [facility] Comment on above: Performed By: #### C A19 #### [facility] , #### CMP, TYLER, FE and TIBC, CBC, [id number] #### [facility] [address] [place] [address] [place] CO2 [Moles/Vol] 22.5 mmol/L 21.0-31.0 [facility] Comment on above: Performed By: #### C A19 #### [facility] , #### CMP, TYLER, FE and TIBC, CBC, [id number] #### [facility] [address] Creatinine [Mass/Vol] 1.55 mg/dL High 0.60-1.20 [facility] Comment on above: Performed By: #### C A19 #### [facility] , #### CMP, TYLER, FE and TIBC, CBC, [id number] #### [facility] [address] Globulin (S) [Mass/Vol] 2.8 g/dL [facility] Comment on above: Performed By: #### C A19 #### [facility] , #### CMP, TYLER, FE and TIBC, CBC, [id number] #### [address] Glucose [Mass/Vol] 182 mg/dL High 70-100 [facility] Comment on above: Result Comment: [place] om Glucose Reference Range is dependent on time and content of last meal. Glucose of more than 200 mg/dL in a nonstressed, ambulatory subject supports the diagnosis of Diabetes Mellitus. ADA recommended reference range Performed By: #### C A19 #### [facility] , #### CMP, TYLER, FE and TIBC, CBC, [id number] #### [address] ADA recommended refe rence rangeRandom Glucose Reference Range is dependent on time and content of last meal. Glucose of more than 200 mg/dL in a nonstressed, ambulatory subject supports the diagnosis of Diabetes Mellitus. Potassium [Moles/Vol] 4.3 mmol/L 3.5-5.1 [facility] Comment on above: Performed By: #### C A19 #### [facility] , #### CMP, TYLER, FE and TIBC, CBC, [id number] #### [facility] [address] [place] [address] Protein [Mass/Vol] 6.0 g/dL Low 6.4-8.9 [facility] Comment on above: Performed By: #### C A19 #### [facility] , #### CMP, TYLER, FE and TIBC, CBC, [id number] #### [facility] [address] [place] [address] Sodium [Moles/Vol] 140 mmol/L 136-145 [facility] Comment on above: Performed By: #### C A19 #### [facility] , #### CMP, TYLER, FE and TIBC, CBC, [id number] #### [facility] [address] [place] [address] Urea nitrogen [Mass/Vol] 36 mg/dL High 7-25 [facility] Comment on above: Performed By: #### C A19 #### [facility] , #### CMP, TYLER, FE and TIBC, CBC, [id number] #### [address] FerritinOrdered By: Keyla de la torre on 02-29-2024 Ferritin [Mass/Vol] 38.9 ng/mL 11.0-306.8 [facility] Comment on above: Performed By: #### C A19 #### [facility] , #### CMP, TYLER, FE and TIBC, CBC, [id number] #### [address] Folate [Mass/volume] in Seru m or PlasmaOrdered By: Keyla Lua on 02-29-2024 Folate [Mass/Vol] 16.1 ng/mL >5.9 [facility] Comment on above: Folate reference ran ge: >5.9 ng/mlThe WHO technical consultation on folate and vitamin [id number] has determined that folate concentrations lessthan 4 ng/ml are considered deficient. Iron and TIBC Profileon 02-04 % Iron Saturation 13.1 % Low 20-50 [facility] Comment on above: Performed By: #### C A19 #### [facility] , #### CMP, TYLER, FE and TIBC, CBC, [id number] #### [facility] [address] Total Iron Binding Capacity 251 ug/dL Low 255-450 [facility] Comment on above: Performed By: #### C A19 #### [facility] , #### CMP, TYLER, FE and TIBC, CBC, [id number] #### [facility] [address] [place] [address] Iron and TIBC ProfileOrdered By: Keyla Lua on 02-29-2024 Iron [Mass/Vol] 33 ug/dL Low 50-212 [facility] Comment on above: Performed By: #### C A19 #### [facility] , #### CMP, TYLER, FE and TIBC, CBC, [id number] #### [facility] [address] [place] [address] Transferrin [Mass/Vol] 179 mg/dL Low 203-362 [facility] Comment on above: Performed By: #### C A19 #### [facility] , #### CMP, TYLER, FE and TIBC, CBC, [id number] #### [facility] [address] [place] [address] Iron binding capacity [Mass/ volume] in Serum or PlasmaOrdered By: Keyla Lua on 02-29-2024 Iron binding capacity [Mass/Vol] 251 ug/dL Low 255-450 [facility] Iron saturation [Mass Fracti on] in Serum or PlasmaOrdered By: Keyla Lua on 02-29-2024 Iron saturation [Mass fraction] 13.1 % Low 20-50 [facility] Leukocytes [#/volume] correc sigifredo for nucleated erythrocytes in Blood by Automated counOrdered By: Keyla Lua on 02-29-2024 WBC corrected for nucl RBC Auto (Bld) [#/Vol] 4.9 10*3/uL 3.8-11.6 [facility] MCHC Auto (RBC) [Mass/Vol]Or dered By: Keyla Lua on 02-29-2024 MCHC (RBC) [Mass/Vol] 33.1 g/dL 32.0-35.0 [facility] No Panel InformationOrdered By: Keyla Lua on 02-29-2024 Estimated GFR (CKD-EPI) 34.081 mL/Min [facility] Creatinine Clearance (Chem 23.52 [facility] Nucleated erythrocytes [Pres ence] in Blood by Automated countOrdered By: Keyla Lua on 02-29-2024 Nucleated RBC Auto Ql (Bld) 0.1 /100{WBC} 0-0.5 [facility] Serum or plasma cancer antig en 19-9 measurement (units/volume)Ordered By: Keyla Lua on 02-29-2024 Cancer Ag 19-9 Qn 8655 [arb'U]/mL High 0-35 [facility] Comment on above: Results confirmed on dilution.[facility] [employer] Electrochemiluminescence Immunoassay(ECLIA)Values obtained with different assay methods or kits cannotbe used interchangeably. Results cannot be interpreted asabsolute evidence of the presence or absence of malignantdisease.Performed at: [facility] [place] [id number] Director: Akash Nugent PhD, Phone: [phone] Vit. B12/Folate ProfileOrder ed By: Keyla Lua on 02-29-2024 Cobalamin (Vitamin B12) [Mass/Vol] 1080 pg/mL High 180-724 [facility] Comment on above: Performed By: #### C A19 #### [facility] , #### CMP, TYLER, FE and TIBC, CBC, [id number] #### [facility] [address] [place] [address] Vit. B12/Folate Profileon Folate 16.1 ng/mL Normal >5.9 [facility] Comment on above: Result Comment: Yeimi te reference range: >5.9 ng/ml The WHO technical consultation on folate and vitamin b12 deficiencies has determined that folate concentrations less than 4 ng/ml are considered deficient. PERFORMED BY: [facility] [address] [place] [address] PATHOLOGIST APPRAISAL MANAGER MELISSA QUINN M.D. Performed By: #### C A19 #### [facility] , #### CMP, TYLER, FE and TIBC, CBC, [id number] #### [facility] [address] [facility] Esophagogastroduodenosco py Table formatting from the original result was not included. Impression Grade D esophagitis in the middle third of the esophagus and lower third of the esophagus Single malignant-appearing ulcer in the body of the stomach and incisura with oozing hemorrhage (Silverio IB) Large amount of the food inside the stomach. 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 Dilation caused improved passage of the scope The duodenal bulb and 2nd part of the duodenum appeared normal. Findings Severe, generalized grade D esophagitis with multiple mucosal breaks measuring 5 mm or more, continuous between folds, covering 75% or more of the circumference in the middle third of the esophagus and lower third of the esophagus Single 35 mm x 20 mm large, cratered, malignant-appearing ulcer in the body of the stomach and incisura with oozing hemorrhage (Silverio IB) Large amount of the food inside the stomach. Multiple irrigation and suction was performed Benign-appearing intrinsic stricture (traversable after dilation) in the pylorus; dilated with dilator using guidewire from 10 mm starting size to 13.5 mm end size with step size of 1 mm. Dilation caused improved passage of the scope The duodenal bulb and 2nd part of the duodenum appeared normal. Recommendation Proceed to EUS Indication Pancreatic mass ([facility]) Staff Staff Role Smooth Coelho MD Proceduralist [...] an anesthesia professional. The patient's blood pressure, ECG, ETCO2, heart rate, level of consciousness, respirations and oxygen were monitored throughout the procedure. The scope was introduced through the mouth and advanced to the second part of the duodenum. Retroflexion was performed in the cardia. Prior to the procedure, the patient's H. Pylori status was unknown. The patient experienced no blood loss. The procedure was not difficult. The patient tolerated the procedure well. There were no apparent adverse events. Events Procedure Events Event Event Time ENDO SCOPE IN TIME 02/20/2024 10:58 AM Specimens ID Type Source Tests Collected by Time 1 : pancreatic head mass fna Tissue PANCREAS BIOPSY SURGICAL PATHOLOGY EXAM Margaret Hickey 02/20/2024 1129 2 : pancreatic head mass fna Non-Gynecologic Cytology PANCREAS CYST FINE NEEDLE ASPIRATION CYTOLOGY CONSULTATION (NON-GYNECOLOGIC) Margaret Hickey 02/20/2024 1130 Procedure Location Formerly [facility] [address] [facility] [id number] Referring Provider Smooth Coelho MD Procedure Provider Smooth Coelho MD [facility] ENDOSCOPIC ULTRASOUND (UPPER )on 02-20-2024 ENDOSCOPIC ULTRASOUND (UPPER) Table formatting from the original result was not included. Impression Single homogeneous, hypoechoic and oval mass measuring 40 mm x 30 mm with well-defined margins was visualized in the head of the pancreas. Apparent abutment of the portal vein; 2 fine needle aspiration passes were taken. An adequate sample of aspirate was obtained; 4 fine needle biopsy passes were taken. An adequate sample was obtained Large amount of solid food inside the stomach, unable to perform full EUS evaluation Findings Single homogeneous, hypoechoic and oval mass measuring 40 mm x 30 mm with well-defined margins was visualized in the head of the pancreas. Apparent abutment of the portal vein; 2 successful fine needle aspiration passes were taken with a 19 gauge EZ shot needle using a transduodenal approach guided by Doppler. An adequate sample of aspirate was obtained. Onsite fur cutter was not present; 4 successful fine needle biopsy passes were taken with a 19 gauge EZ shot needle guided by Doppler. An adequate sample was obtained. Onsite fur cutter was not present Large amount of solid food inside the stomach, unable to perform full EUS evaluation Recommendation Await pathology results Follow up with Dr Keyla Lua as OUTPATIENT Indication Pancreatic mass ([facility]) Staff Staff Role Smooth Coelho MD Proceduralist [...] ETCO2 were monitored throughout the procedure. The linear scope and radial scope were introduced through the mouth and advanced to the second part of the duodenum. The patient experienced no blood loss. The procedure was not difficult. The patient tolerated the procedure well. There were no apparent adverse events. Events Procedure Events Event Event Time ENDO SCOPE IN TIME 02/20/2024 10:58 AM Specimens ID Type Source Tests Collected by Time 1 : pancreatic head mass fna Tissue PANCREAS BIOPSY SURGICAL PATHOLOGY EXAM Margaret Ruperto 02/20/2024 1129 2 : pancreatic head mass fna Non-Gynecologic Cytology PANCREAS CYST FINE NEEDLE ASPIRATION CYTOLOGY CONSULTATION (NON-GYNECOLOGIC) Margaret Hickey 02/20/2024 1130 Procedure Location Formerly [facility] [id number] [place] [id number] Referring Provider Smooth Coelho MD Procedure Provider Smooth Coelho MD [facility] Non-abap developer cytology studyon Non-gynecological cytology method study Pathology report.total SEE COMMENT Non-gynecologic Cytology Case: [id number] Authorizing Provider: Smooth Coelho MD Collected: 02/20/2024 1130 Ordering Location: [facility] Received: 02/20/2024 1255 Pathologist: Sj Vivas MD Specimen: PANCREAS CYST FINE NEEDLE ASPIRATION, pancreatic head mass fna Path report.final diagnosis SEE COMMENT A. PANCREAS CYST FINE NEEDLE ASPIRATION - pancreatic head mass fna No malignant cells identified Macrophages and reactive ductal cells present Laboratory comment SEE COMMENT Slide(s) initially screened by DOE Stroud at [facility] [address] [facility] [phone] By the signature on this report, the individual or group listed as making the Final Interpretation/Diagnosis certifies that they have reviewed this case. Path report.gross observation SEE COMMENT A. PANCREAS CYST FINE NEEDLE ASPIRATION. Received 30 ml pink clear needle rinse in Cytolyt with particles. The specimen has been sent for cytological analysis to the cytology department at [facility]. Laboratory comment SEE COMMENT A1 Slides Only (No Block) A1-1 Pap Stain NGYN ThinPrep A2 Cell Block A2-1 H&E Normal [facility] Basophils Auto (Bld) [#/Vol] on 02-12-2024 Basophils (Bld) [#/Vol] 0.0 10 3/uL 0.0-0.1 [facility] Basophils/100 WBC Auto (Bld) on 02-12-2024 Basophils/100 WBC (Bld) 0.4 % 0.2-2.0 [facility] Eosinophils/100 WBC Auto (Bl d)on 02-12-2024 Eosinophils/100 WBC (Bld) 1.8 % 0.9-7.0 [facility] Erythrocyte distribution wid th Auto (RBC) [Ratio]on 02-12-2024 Erythrocyte distribution width (RBC) [Ratio] 13.7 % 11.0-15.0 [facility] Estimated glomerular filtrat ion rate (GFR) non- Americanon 02-12-2024 GFR/1.73 sq M.predicted among non-blacks MDRD (S/P/Bld) [Vol rate/Area] 32 mL/min/{1.73_m2} Low >=60 [facility] Globulin Calc (S) [Mass/Vol] on 02-12-2024 Globulin (S) [Mass/Vol] 3.4 g/dL [facility] Hematocrit Auto (Bld) [Volum e fraction]on 02-12-2024 Hematocrit (Bld) [Volume fraction] 26.6 % Low 36.0-48.0 [facility] Hemoglobin [Mass/volume] in Bloodon 02-12-2024 Hemoglobin (Bld) [Mass/Vol] 8.4 g/dL Low 12.0-16.0 [facility] Laboratory - Chemistry and C hemistry - challengeon 02-12-2024 Albumin [Mass/Vol] 2.1 g/dL Low 3.4-5.0 [facility] ALP [Catalytic activity/Vol] 282 U/L High 46-116 [facility] ALT [Catalytic activity/Vol] 58 U/L 14-59 [facility] AST [Catalytic activity/Vol] 47 U/L High 15-37 [facility] Bilirubin [Mass/Vol] 0.5 mg/dL 0.2-1.0 [facility] Calcium [Mass/Vol] 7.8 mg/dL Low 8.5-10.1 [facility] Chloride [Moles/Vol] 110 mmol/L High 98-107 [facility] CO2 [Moles/Vol] 21.0 mmol/L 21.0-32.0 [facility] Creatinine [Mass/Vol] 1.56 mg/dL High 0.55-1.02 [facility] GFR/1.73 sq M.predicted MDRD (S/P/Bld) [Vol rate/Area] 39 mL/min/{1.73_m2} Low >=60 [facility] Glucose [Mass/Vol] 193 mg/dL High 74-106 [facility] Potassium [Moles/Vol] 3.6 mmol/L 3.5-5.1 [facility] Protein [Mass/Vol] 5.5 g/dL Low 6.4-8.2 [facility] Sodium [Moles/Vol] 139 mmol/L 136-145 [facility] Urea nitrogen [Mass/Vol] 24.0 mg/dL High 7.0-18.0 [facility] Urea nitrogen/Creatinine [Mass ratio] 15.4 mg/mg [facility] Laboratory - Hematology and Cell countson 02-12-2024 Immature granulocytes/100 WBC (Bld) 0.4 % 0.0-0.5 [facility] Leukocytes [#/volume] correc sigifredo for nucleated erythrocytes in Blood by Automated counon 02-12-2024 WBC corrected for nucl RBC Auto (Bld) [#/Vol] 5.0 10 3/uL 4.0-11.0 [facility] Lymphocytes Auto (Bld) [#/Vo l]on 02-12-2024 Lymphocytes (Bld) [#/Vol] 0.7 10 3/uL Low 1.2-3.8 [facility] Lymphocytes/100 WBC Auto (Bl d)on 02-12-2024 Lymphocytes/100 WBC (Bld) 14.7 % Low 20.5-60.0 [facility] MCH Auto (RBC) [Entitic mass ]on 02-12-2024 MCH (RBC) [Entitic mass] 28.9 pg 26.7-34.0 [facility] MCHC Auto (RBC) [Mass/Vol]on 02-12-2024 MCHC (RBC) [Mass/Vol] 31.6 g/dL 29.9-35.2 [facility] MCV Auto (RBC) [Entitic vol] on 02-12-2024 MCV (RBC) [Entitic vol] 91.4 fL 81.0-99.0 [facility] Monocytes Auto (Bld) [#/Vol] on 02-12-2024 Monocytes (Bld) [#/Vol] 0.5 10 3/uL 0.3-0.8 [facility] Monocytes/100 WBC Auto (Bld) on 02-12-2024 Monocytes/100 WBC (Bld) 8.9 % 1.7-12.0 [facility] Neutrophils Auto (Bld) [#/Vo l]on 02-12-2024 Neutrophils (Bld) [#/Vol] 3.7 10 3/uL 1.4-6.5 [facility] Neutrophils/100 WBC Auto (Bl d)on 02-12-2024 Neutrophils/100 WBC (Bld) 73.8 % 43.0-75.0 [facility] No Panel Informationon 02-11 Eosinophils # (Auto) 0.1 10 3/uL 0.0-0.7 [facility] Immature Granulocyte # (Auto) 0.02 10 3/uL 0.00-0.03 [facility] Platelet mean volume Auto (B ld) [Entitic vol]on 02-12-2024 Platelet mean volume (Bld) [Entitic vol] 12.3 fL 9.5-13.5 [facility] Platelets Auto (Bld) [#/Vol] on 02-12-2024 Platelets (Bld) [#/Vol] 135 10 3/uL Low 150-450 [facility] RBC Auto (Bld) [#/Vol]on RBC (Bld) [#/Vol] 2.91 10 6/uL Low 4.20-5.40 [facility] Serum or plasma albumin/glob ulin mass ratioon 02-12-2024 Albumin/Globulin [Mass ratio] 0.6 {ratio} [facility] Serum or plasma anion gap de terminationon 02-12-2024 Anion gap [Moles/Vol] 11.6 mmol/L [facility] Basophils Auto (Bld) [#/Vol] on 02-11-2024 Basophils (Bld) [#/Vol] 0.0 10 3/uL 0.0-0.1 [facility] Basophils/100 WBC Auto (Bld) on 02-11-2024 Basophils/100 WBC (Bld) 0.5 % 0.2-2.0 [facility] Eosinophils/100 WBC Auto (Bl d)on 02-11-2024 Eosinophils/100 WBC (Bld) 1.7 % 0.9-7.0 [facility] Erythrocyte distribution wid th Auto (RBC) [Ratio]on 02-11-2024 Erythrocyte distribution width (RBC) [Ratio] 13.6 % 11.0-15.0 [facility] Estimated glomerular filtrat ion rate (GFR) non- Americanon 02-11-2024 GFR/1.73 sq M.predicted among non-blacks MDRD (S/P/Bld) [Vol rate/Area] 33 mL/min/{1.73_m2} Low >=60 [facility] Globulin Calc (S) [Mass/Vol] on 02-11-2024 Globulin (S) [Mass/Vol] 3.7 g/dL [facility] Hematocrit Auto (Bld) [Volum e fraction]on 02-11-2024 Hematocrit (Bld) [Volume fraction] 29.8 % Low 36.0-48.0 [facility] Hemoglobin [Mass/volume] in Bloodon 02-11-2024 Hemoglobin (Bld) [Mass/Vol] 9.5 g/dL Low 12.0-16.0 [facility] Laboratory - Chemistry and C hemistry - challengeon 02-11-2024 Albumin [Mass/Vol] 2.4 g/dL Low 3.4-5.0 [facility] ALP [Catalytic activity/Vol] 342 U/L High 46-116 [facility] ALT [Catalytic activity/Vol] 73 U/L High 14-59 [facility] AST [Catalytic activity/Vol] 68 U/L High 15-37 [facility] Bilirubin [Mass/Vol] 0.7 mg/dL 0.2-1.0 [facility] Calcium [Mass/Vol] 8.1 mg/dL Low 8.5-10.1 [facility] Chloride [Moles/Vol] 109 mmol/L High 98-107 [facility] CO2 [Moles/Vol] 21.4 mmol/L 21.0-32.0 [facility] Creatinine [Mass/Vol] 1.53 mg/dL High 0.55-1.02 [facility] GFR/1.73 sq M.predicted MDRD (S/P/Bld) [Vol rate/Area] 40 mL/min/{1.73_m2} Low >=60 [facility] Glucose [Mass/Vol] 126 mg/dL High 74-106 [facility] Potassium [Moles/Vol] 4.0 mmol/L 3.5-5.1 [facility] Protein [Mass/Vol] 6.1 g/dL Low 6.4-8.2 [facility] Sodium [Moles/Vol] 138 mmol/L 136-145 [facility] Urea nitrogen [Mass/Vol] 26.0 mg/dL High 7.0-18.0 [facility] Urea nitrogen/Creatinine [Mass ratio] 17.0 mg/mg [facility] Bilirubin Ql (U) Negative NEGATIVE [facility] Glucose (U) [Mass/Vol] Negative NEGATIVE [facility] Ketones Ql (U) TRACE mg/dL Abnormal NEGATIVE [facility] pH (U) 5.5 [pH] 5.0-9.0 [facility] Specific gravity (U) [Rel density] 1.025 1.005-1.02 5 [facility] Urobilinogen Qn (U) 0.2 {Luis Eduardo'U}/dL 0.2-1.0 [facility] Laboratory - Hematology and Cell countson 02-11-2024 Immature granulocytes/100 WBC (Bld) 0.2 % 0.0-0.5 [facility] - Microbiology an d Antimicrobial susceptibilityOrdered By: Yumiko Urbina on 02-11-2024 Bacteria identified Cx Nom (U) [facility] - Specimen inform ationon 02-11-2024 Appearance (U) CLEAR CLEAR [facility] Color (U) YELLOW YELLOW [facility] Laboratory - Urinalysison Amorphous sediment LM Ql (Urine sed) MANY [facility] Leukocyte esterase Test strip Ql (U) SMALL Abnormal NEGATIVE [facility] Mucus Ql (Urine sed) SMALL Abnormal NONE SEEN [facility] Nitrite Ql (U) Negative NEGATIVE [facility] Protein Ql (U) TRACE mg/dL NEG/TRACE [facility] Leukocytes [#/volume] correc sigifredo for nucleated erythrocytes in Blood by Automated counon 02-11-2024 WBC corrected for nucl RBC Auto (Bld) [#/Vol] 5.9 10 3/uL 4.0-11.0 [facility] Lymphocytes Auto (Bld) [#/Vo l]on 02-11-2024 Lymphocytes (Bld) [#/Vol] 1.0 10 3/uL Low 1.2-3.8 [facility] Lymphocytes/100 WBC Auto (Bl d)on 02-11-2024 Lymphocytes/100 WBC (Bld) 17.0 % Low 20.5-60.0 [facility] MCH Auto (RBC) [Entitic mass ]on 02-11-2024 MCH (RBC) [Entitic mass] 28.7 pg 26.7-34.0 [facility] MCHC Auto (RBC) [Mass/Vol]on 02-11-2024 MCHC (RBC) [Mass/Vol] 31.9 g/dL 29.9-35.2 [facility] MCV Auto (RBC) [Entitic vol] on 02-11-2024 MCV (RBC) [Entitic vol] 90.0 fL 81.0-99.0 [facility] Monocytes Auto (Bld) [#/Vol] on 02-11-2024 Monocytes (Bld) [#/Vol] 0.5 10 3/uL 0.3-0.8 [facility] Monocytes/100 WBC Auto (Bld) on 02-11-2024 Monocytes/100 WBC (Bld) 7.9 % 1.7-12.0 [facility] Neutrophils Auto (Bld) [#/Vo l]on 02-11-2024 Neutrophils (Bld) [#/Vol] 4.3 10 3/uL 1.4-6.5 [facility] Neutrophils/100 WBC Auto (Bl d)on 02-11-2024 Neutrophils/100 WBC (Bld) 72.7 % 43.0-75.0 [facility] No Panel Informationon 02-10 Eosinophils # (Auto) 0.1 10 3/uL 0.0-0.7 [facility] Immature Granulocyte # (Auto) 0.01 10 3/uL 0.00-0.03 [facility] Urine Bacteria SMALL #/HPF Abnormal NONE SEEN [facility] Urine Culture Reflexed YES [facility] Urine Microscopic Review YES [facility] Urine Occult Blood LARGE Abnormal NEGATIVE [facility] Urine Other Casts NONE SEEN #/LPF NONE SEEN [facility] Urine Other Crystals None Seen #/HPF None Seen [facility] Urine RBC 2-5 #/HPF Abnormal 0-2 [facility] Urine Squamous Epithelial Cells FEW #/LPF Abnormal NONE/RARE [facility] Urine WBC 5-10 #/HPF Abnormal NONE SEEN [facility] Platelet mean volume Auto (B ld) [Entitic vol]on 02-11-2024 Platelet mean volume (Bld) [Entitic vol] 11.9 fL 9.5-13.5 [facility] Platelets Auto (Bld) [#/Vol] on 02-11-2024 Platelets (Bld) [#/Vol] 160 10 3/uL 150-450 [facility] RBC Auto (Bld) [#/Vol]on RBC (Bld) [#/Vol] 3.31 10 6/uL Low 4.20-5.40 [facility] Serum or plasma albumin/glob ulin mass ratioon 02-11-2024 Albumin/Globulin [Mass ratio] 0.6 {ratio} [facility] Serum or plasma anion gap de terminationon 02-11-2024 Anion gap [Moles/Vol] 11.6 mmol/L [facility] Basophils Auto (Bld) [#/Vol] on 02-10-2024 Basophils (Bld) [#/Vol] 0.0 10 3/uL 0.0-0.1 [facility] Basophils/100 WBC Auto (Bld) on 02-10-2024 Basophils/100 WBC (Bld) 0.4 % 0.2-2.0 [facility] Eosinophils/100 WBC Auto (Bl d)on 02-10-2024 Eosinophils/100 WBC (Bld) 1.3 % 0.9-7.0 [facility] Erythrocyte distribution wid th Auto (RBC) [Ratio]on 02-10-2024 Erythrocyte distribution width (RBC) [Ratio] 13.4 % 11.0-15.0 [facility] Estimated glomerular filtrat ion rate (GFR) non- Americanon 02-10-2024 GFR/1.73 sq M.predicted among non-blacks MDRD (S/P/Bld) [Vol rate/Area] 29 mL/min/{1.73_m2} Low >=60 [facility] Globulin Calc (S) [Mass/Vol] on 02-10-2024 Globulin (S) [Mass/Vol] 4.2 g/dL [facility] Hematocrit Auto (Bld) [Volum e fraction]on 02-10-2024 Hematocrit (Bld) [Volume fraction] 33.1 % Low 36.0-48.0 [facility] Hemoglobin [Mass/volume] in Bloodon 02-10-2024 Hemoglobin (Bld) [Mass/Vol] 10.7 g/dL Low 12.0-16.0 [facility] Laboratory - Chemistry and C hemistry - challengeon 02-10-2024 Albumin [Mass/Vol] 3.0 g/dL Low 3.4-5.0 [facility] ALP [Catalytic activity/Vol] 396 U/L High 46-116 [facility] ALT [Catalytic activity/Vol] 91 U/L High 14-59 [facility] AST [Catalytic activity/Vol] 80 U/L High 15-37 [facility] Bilirubin [Mass/Vol] 1.1 mg/dL High 0.2-1.0 [facility] Calcium [Mass/Vol] 9.1 mg/dL 8.5-10.1 [facility] Chloride [Moles/Vol] 104 mmol/L 98-107 [facility] CO2 [Moles/Vol] 20.9 mmol/L Low 21.0-32.0 [facility] Creatinine [Mass/Vol] 1.69 mg/dL High 0.55-1.02 [facility] GFR/1.73 sq M.predicted MDRD (S/P/Bld) [Vol rate/Area] 35 mL/min/{1.73_m2} Low >=60 [facility] Glucose [Mass/Vol] 173 mg/dL High 74-106 [facility] Lactate [Moles/Vol] 1.5 mmol/L 0.4-2.0 [facility] Lipase [Catalytic activity/Vol] 78.0 U/L High 16.0-77.0 [facility] Magnesium [Mass/Vol] 1.9 mg/dL 1.8-2.4 [facility] Potassium [Moles/Vol] 4.0 mmol/L 3.5-5.1 [facility] Protein [Mass/Vol] 7.2 g/dL 6.4-8.2 [facility] Sodium [Moles/Vol] 137 mmol/L 136-145 [facility] Urea nitrogen [Mass/Vol] 28.0 mg/dL High 7.0-18.0 [facility] Urea nitrogen/Creatinine [Mass ratio] 16.6 mg/mg [facility] Laboratory - Hematology and Cell countson 02-10-2024 Immature granulocytes/100 WBC (Bld) 0.1 % 0.0-0.5 [facility] Leukocytes [#/volume] correc sigifredo for nucleated erythrocytes in Blood by Automated counon 02-10-2024 WBC corrected for nucl RBC Auto (Bld) [#/Vol] 6.7 10 3/uL 4.0-11.0 [facility] Lymphocytes Auto (Bld) [#/Vo l]on 02-10-2024 Lymphocytes (Bld) [#/Vol] 0.6 10 3/uL Low 1.2-3.8 [facility] Lymphocytes/100 WBC Auto (Bl d)on 02-10-2024 Lymphocytes/100 WBC (Bld) 8.5 % Low 20.5-60.0 [facility] MCH Auto (RBC) [Entitic mass ]on 02-10-2024 MCH (RBC) [Entitic mass] 29.2 pg 26.7-34.0 [facility] MCHC Auto (RBC) [Mass/Vol]on 02-10-2024 MCHC (RBC) [Mass/Vol] 32.3 g/dL 29.9-35.2 [facility] MCV Auto (RBC) [Entitic vol] on 02-10-2024 MCV (RBC) [Entitic vol] 90.2 fL 81.0-99.0 [facility] Monocytes Auto (Bld) [#/Vol] on 02-10-2024 Monocytes (Bld) [#/Vol] 0.4 10 3/uL 0.3-0.8 [facility] Monocytes/100 WBC Auto (Bld) on 02-10-2024 Monocytes/100 WBC (Bld) 5.9 % 1.7-12.0 [facility] Neutrophils Auto (Bld) [#/Vo l]on 02-10-2024 Neutrophils (Bld) [#/Vol] 5.6 10 3/uL 1.4-6.5 [facility] Neutrophils/100 WBC Auto (Bl d)on 02-10-2024 Neutrophils/100 WBC (Bld) 83.8 % High 43.0-75.0 [facility] No Panel Informationon 02-09 Troponin I High Sensitivity 120.8 pg/mL High 4.0-51.3 [facility] Comment on above: RESULTS CALLED TO NAOMI GALLARDO RNCUT-OFF POINTS HAVE BEEN ESTABLISHED BASED ON THE FOURTHUNIVERSAL DEFINITION OF MYOCARDIAL INFARCTION. THE UPPERREFERENCE LIMIT (URL) OF TROPONIN, DEFINED THE 99THPERCENTILE OF cTnI DISTRIBUTION IN A REFERENCE POPULATION,HAS BEEN CONFIRMED THE DECISION THRESHOLD FOR MIDIAGNOSIS.99TH PERCENTILE = 51.4 PG/MLNOTE: HIGH-SENSITIVITY TROPONIN ASSAY IS NOT INTENDED TO BEUSED IN ISOLATION BUT SHOULD BE INTERPRETED IN CONJUNCTIONWITH OTHER DIAGNOSTIC AND CLINICAL INFORMATION. Eosinophils # (Auto) 0.1 10 3/uL 0.0-0.7 [facility] Immature Granulocyte # (Auto) 0.01 10 3/uL 0.00-0.03 [facility] Platelet mean volume Auto (B ld) [Entitic vol]on 02-10-2024 Platelet mean volume (Bld) [Entitic vol] 11.8 fL 9.5-13.5 [facility] Platelets Auto (Bld) [#/Vol] on 02-10-2024 Platelets (Bld) [#/Vol] 191 10 3/uL 150-450 [facility] RBC Auto (Bld) [#/Vol]on RBC (Bld) [#/Vol] 3.67 10 6/uL Low 4.20-5.40 [facility] Serum or plasma albumin/glob ulin mass ratioon 02-10-2024 Albumin/Globulin [Mass ratio] 0.7 {ratio} [facility] Serum or plasma anion gap de terminationon 02-10-2024 Anion gap [Moles/Vol] 16.1 mmol/L [facility] Capillary blood glucose cydney urement by glucometer (mass/volume)Ordered By: Keyla Lua on 01-30-2024 Glucose [Mass/Vol] 188 mg/dL [facility] Comment on above: Random Glucose Refer ence Range is dependent on time and content of last meal. Glucose of more than 200 mg/dL in a nonstressed, ambulatory subject supports the diagnosis of Diabetes Mellitus. Result Comment: [place] om Glucose Reference Range is dependent on time and content of last meal. Glucose of more than 200 mg/dL in a nonstressed, ambulatory subject supports the diagnosis of Diabetes Mellitus. PERFORMED BY: [place] [id number] PATHOLOGIST APPRAISAL MANAGER MELISSA QUINN M.D. Performed By: #### G LULS #### Point of Care testing , PET tumor init tx strat sb-m [facility] 01-30-2024 PET tumor init tx strat sb-mt [facility] Main [place] [address] [place], [place] [id number] Nuclear Medicine Report Signed Patient: Trisha Parish MR#: [id number] : 1945 Acct:[id number] Age/Sex: 78 / F ADM Date: 01/30/24 Loc: Room: [facility] Att[facility] Dr: Keyla Lua MD Copies to: [...] cavity is present. Although distribution may be appeals representative of asymmetric physiologic uptake, if there [...] identified. (more content not included)... Normal [facility] Cardiac device check - In Cl inicOrdered By: Shanon Martínez on 01-07-2024 [facility] Work Phone: Cardiac device check - In Cl inicon 01-07-2024 Radiology Study observation (narrative) [facility] Work Phone: XR CHEST 2 VIEWSon 4 XR CHEST 2 VIEWS Interpreted By: Chalino Jackson, STUDY: XR CHEST 2 VIEWS; 01/07/2024 1:47 pm INDICATION: Signs/Symptoms:MRI CLEARANCE. 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 Mediastinal wires. CARDIOMEDIASTINAL SILHOUETTE: Cardiomediastinal silhouette is normal in size and configuration. LUNGS: Lungs are clear. There is no consolidation or effusion ABDOMEN: No remarkable upper abdominal findings. BONES: No acute osseous changes. IMPRESSION: 1. No evidence of acute cardiopulmonary process. MACRO: None Signed by: Chalino Whaley 01/08/2024 7:53 PM Dictation workstation: [id number] Normal [facility] Amylaseon 01-03-2024 Amylase [Catalytic activity/Vol] 61 U/L 29 - 103 U/L [facility] Amylase [Catalytic activity/Vol] 61 U/L Normal 29-103 [facility] Comment on above: Performed By: #### 1 798-8 #### JENNYFER Brunson ([id number]) [facility] ([facility]) [address] [place] [address] Amylase [Catalytic activity/ Vol]on 01-03-2024 Interpretation and review of laboratory results Normal [facility] CBC W Auto Differential pane l (Bld)on 01-03-2024 Basophils (Bld) [#/Vol] 0.02 10*3/uL [facility] Basophils/100 WBC (Bld) 0.4 % 0.0 - 2.0 % [facility] Eosinophils (Bld) [#/Vol] 0.17 10*3/uL [facility] Eosinophils/100 WBC (Bld) 3.1 % 0.0 - 6.0 % [facility] Erythrocyte distribution width (RBC) [Ratio] 13.9 % 11.5 - 14.5 % [facility] Hematocrit (Bld) [Volume fraction] 32.2 % Low 36.0 - 46.0 % [facility] Hemoglobin (Bld) [Mass/Vol] 10.3 g/dL Low 12.0 - 16.0 g/dL [facility] Immature granulocytes (Bld) [#/Vol] 0.01 10*3/uL [facility] Immature granulocytes/100 WBC (Bld) 0.2 % 0.0 - 0.9 % [facility] Comment on above: Immature Granulocyte Count (IG) includes promyelocytes, myelocytes and metamyelocytes but does not include bands. Percent differential counts (%) should be interpreted in the context of the absolute cell counts (cells/UL). Interpretation and review of laboratory results Abnormal [facility] Lymphocytes (Bld) [#/Vol] 1.02 10*3/uL [facility] Lymphocytes/100 WBC (Bld) 18.8 % 13.0 - 44.0 % [facility] MCH (RBC) [Entitic mass] 29.3 pg 26. 0 - 34.0 pg [facility] MCHC (RBC) [Mass/Vol] 32.0 g/dL 32.0 - 36.0 g/dL [facility] MCV (RBC) [Entitic vol] 92 fL 80 - 100 fL [facility] Monocytes (Bld) [#/Vol] 0.31 10*3/uL [facility] Monocytes/100 WBC (Bld) 5.7 % 2.0 - 10.0 % [facility] Neutrophils (Bld) [#/Vol] 3.90 10*3/uL [facility] Comment on above: Percent differential counts (%) should be interpreted in the context of the absolute cell counts (cells/uL). Neutrophils/100 WBC (Bld) 71.8 % 40.0 - 80.0 % [facility] Nucleated RBC/100 WBC (Bld) [Ratio] 0.0 % [facility] Platelets (Bld) [#/Vol] 145 10*3/uL Low [facility] RBC (Bld) [#/Vol] 3.52 10*6/uL [facility] WBC (Bld) [#/Vol] 5.4 10*3/uL [facility] Basophils (Bld) [#/Vol] 0.02 x10*3/uL Normal 0.00-0.10 [facility] Comment on above: Performed By: #### 5 7021-8 #### GENE ADKINS ([id number]) [facility] ([place]) [address] [place] [address] Basophils/100 WBC (Bld) 0.4 % Normal 0.0-2.0 [facility] Comment on above: Performed By: #### 5 7021-8 #### GENE ADKINS ([id number]) [facility] ([place]) [address] [place] [address] Eosinophils (Bld) [#/Vol] 0.17 x10*3/uL Normal 0.00-0.40 [facility] Comment on above: Performed By: #### 5 7021-8 #### GENE ADKINS ([id number]) [facility] ([place]) [address] [place] [address] Eosinophils/100 WBC (Bld) 3.1 % Normal 0.0-6.0 [facility] Comment on above: Performed By: #### 5 7021-8 #### GENE ADKINS ([id number]) [facility] ([place]) [address] [place] [address] Erythrocyte distribution width (RBC) [Ratio] 13.9 % Normal 11.5-14.5 [facility] Comment on above: Performed By: #### 5 7021-8 #### GENE ADKINS ([id number]) [facility] ([place]) [address] [place] [address] Hematocrit (Bld) [Volume fraction] 32.2 % Low 36.0-46.0 [facility] Comment on above: Performed By: #### 5 7021-8 #### GENE ADKINS ([id number]) [facility] ([place]) [address] [place] [address] Hemoglobin (Bld) [Mass/Vol] 10.3 g/dL Low 12.0-16.0 [facility] Comment on above: Performed By: #### 5 7021-8 #### GENE ADKINS ([id number]) [facility] ([place]) [address] [place] [address] Immature granulocytes (Bld) [#/Vol] 0.01 x10*3/uL Normal 0.00-0.50 [facility] Comment on above: Performed By: #### 5 7021-8 #### GENE ADKINS ([id number]) [facility] ([place]) [address] [place] [address] Immature granulocytes/100 WBC (Bld) 0.2 % Normal 0.0-0.9 [facility] Comment on above: Result Comment: [place] ture Granulocyte Count (IG) includes promyelocytes, myelocytes and metamyelocytes but does not include bands. Percent differential counts (%) should be interpreted in the context of the absolute cell counts (cells/UL). Performed By: #### 5 7021-8 #### GENE ADKINS ([id number]) [facility] ([place]) [address] [place] [address] Lymphocytes (Bld) [#/Vol] 1.02 x10*3/uL Normal 0.80-3.00 [facility] Comment on above: Performed By: #### 5 7021-8 #### GENE ADKINS ([id number]) [facility] ([place]) [address] [place] [address] Lymphocytes/100 WBC (Bld) 18.8 % Normal 13.0-44.0 [facility] Comment on above: Performed By: #### 5 7021-8 #### GENE ADKINS ([id number]) [facility]) [address] [place] [address] MCH (RBC) [Entitic mass] 29.3 pg Normal 26.0-34.0 [facility] Comment on above: Performed By: #### 5 7021-8 #### GENE ADKINS ([id number]) [facility] [address] [place] [address] MCHC (RBC) [Mass/Vol] 32.0 g/dL Normal 32.0-36.0 [facility] Comment on above: Performed By: #### 5 7021-8 #### GENE ADKINS ([id number]) [facility]) [address] [place] [address] MCV (RBC) [Entitic vol] 92 fL Normal 80-100 [facility] Comment on above: Performed By: #### 5 7021-8 #### GENE ADKINS ([id number]) [facility]) [address] [place] [address] Monocytes (Bld) [#/Vol] 0.31 x10*3/uL Normal 0.05-0.80 [facility] Comment on above: Performed By: #### 5 7021-8 #### GENE ADKINS ([id number]) [facility] ([place]) [address] [place] [address] Monocytes/100 WBC (Bld) 5.7 % Normal 2.0-10.0 [facility] Comment on above: Performed By: #### 5 7021-8 #### GENE ADKINS ([id number]) [facility]) [address] [place] [address] Neutrophils (Bld) [#/Vol] 3.90 x10*3/uL Normal 1.60-5.50 [facility] Comment on above: Result Comment: Perc ent differential counts (%) should be interpreted in the context of the absolute cell counts (cells/uL). Performed By: #### 5 7021-8 #### GENE ADKINS ([id number]) [facility]) [address] [place] [address] Neutrophils/100 WBC (Bld) 71.8 % Normal 40.0-80.0 [facility] Comment on above: Performed By: #### 5 7021-8 #### GENE ADKINS ([id number]) [facility] ([place]) [address] [place] [address] Nucleated RBC/100 WBC (Bld) [Ratio] 0.0 /100 WBCs Normal 0.0-0.0 [facility] Comment on above: Performed By: #### 5 7021-8 #### GENE ADKINS ([id number]) [facility] ([place]) [address] [place] [address] Platelets (Bld) [#/Vol] 145 x10*3/uL Low 150-450 [facility] Comment on above: Performed By: #### 5 7021-8 #### GENE ADKINS ([id number]) [facility]) [address] [facility] [place] [address] RBC (Bld) [#/Vol] 3.52 x10*6/uL Low 4.00-5.20 [facility] Comment on above: Performed By: #### 5 7021-8 #### GENE You'TUNDE ([id number]) [facility] ([place]) [address] [place] [address] WBC (Bld) [#/Vol] 5.4 x10*3/uL Normal 4.4-11.3 [facility] Comment on above: Performed By: #### 5 7021-8 #### GENE You'TUNDE ([id number]) [facility] ([place]) [address] [place] [address] Cancer Ag 19-9on 01-03-2024 Cancer Ag 19-9 Qn 8223.03 [arb'U]/mL High <35.00 [facility] Comment on above: Order Comment: CA 19 [...] By: #### 2 4108-3 #### JENNYFER Brunson ([id number]) [facility] ([facility]) [address] [place] [address] Cancer Ag 19-9 Qnon 01-03-20 24 Interpretation and review of laboratory results Abnormal [facility] CA 19-9 testing is performed by chemiluminescent [...] for clinical diagnosis or patient management decisions. [facility] Cancer Antigen 19-9on 2023 Cancer Ag 19-9 Qn 8223.03 [arb'U]/mL High NINF - 35.00 U/mL [facility] Carcinoembryonic Agon 2023 Carcinoembryonic Ag [Mass/Vol] 5.2 ug/L Normal [facility] Comment on above: Order Comment: REF V ALUES NONSMOKERS 0-2.5 SMOKERS 0-5.0 CEA testing is performed by chemiluminescent immunoassay using the Ensa. Values obtained with different analytic methods cannot [...] By: #### 2 039-6 #### JENNYFER Brunson ([id number]) [facility] ([facility]) [address] [place], [place] [id number] Coagulation tissue factor in ducedon 01-03-2024 PT Coag (PPP) [Time] 14.6 s High 9.8-12.8 [facility] Comment on above: Performed By: #### 5 902-2 #### JENNYFER Brunson ([id number]) [facility] ([facility]) [address] [place] [address] Comprehensive metabolic 2000 panelon 01-03-2024 Albumin BCP dye [Mass/Vol] 4.1 g/dL 3.4 - 5.0 g/dL [facility] ALP [Catalytic activity/Vol] 111 U/L 33 - 136 U/L [facility] ALT With P-5'-P [Catalytic activity/Vol] 37 U/L 7 - 45 U/L [facility] Comment on above: Patients treated wit h Sulfasalazine may generate falsely decreased results for ALT. Anion gap [Moles/Vol] 15 mmol/L 10 - 2 0 mmol/L [facility] AST With P-5'-P [Catalytic activity/Vol] 42 U/L High 9 - 39 U/L [facility] Bilirubin [Mass/Vol] 0.9 mg/dL 0.0 - 1 .2 mg/dL [facility] Calcium [Mass/Vol] 9.3 mg/dL 8.6 - 10. 3 mg/dL [facility] Chloride [Moles/Vol] 106 mmol/L 98 - 10 7 mmol/L [facility] CO2 [Moles/Vol] 22 mmol/L 21 - 32 mmol/L [facility] Creatinine [Mass/Vol] 1.67 mg/dL High 0.50 - 1.05 mg/dL [facility] GFR/1.73 sq M.predicted among non-blacks MDRD (S/P/Bld) [Vol rate/Area] 31 mL/min/{1.73_m2} Low - PINF [facility] Comment on above: Calculations of love mated GFR are performed using the 2020 CKD-EPI Study Refit equation without the race variable for the IDMS-Traceable creatinine methods. https://jasn.asnjournals.org/content//ASN.076 6406860 Glucose [Mass/Vol] 177 mg/dL High 74 - 99 mg/dL [facility] Interpretation and review of laboratory results Abnormal [facility] Potassium [Moles/Vol] 4.3 mmol/L 3.5 - 5.3 mmol/L [facility] Protein [Mass/Vol] 6.8 g/dL 6.4 - 8.2 g/dL [facility] Sodium [Moles/Vol] 139 mmol/L 136 - 145 mmol/L [facility] Urea nitrogen [Mass/Vol] 31 mg/dL High 6 - 23 mg/dL [facility] Albumin BCP dye [Mass/Vol] 4.1 g/dL Normal 3.4-5.0 [facility] Comment on above: Performed By: #### 2 4323-8 #### GENE ADKINS ([id number]) [facility] ([place]) [address] [place] [address] ALP [Catalytic activity/Vol] 111 U/L Normal 33-136 [facility] Comment on above: Performed By: #### 2 4323-8 #### GENE ADKINS ([id number]) [facility]) [address] [place] [address] ALT With P-5'-P [Catalytic activity/Vol] 37 U/L Normal 7-45 [facility] Comment on above: Result Comment: Janice ents treated with Sulfasalazine may generate falsely decreased results for ALT. Performed By: #### 2 4323-8 #### GENE ADKINS ([id number]) [facility]) [address] [place] [address] Anion gap [Moles/Vol] 15 mmol/L Normal 10-20 [facility] Comment on above: Performed By: #### 2 4323-8 #### GENE ADKINS ([id number]) [facility] ([place]) [address] [place] [address] AST With P-5'-P [Catalytic activity/Vol] 42 U/L High 9-39 [facility] Comment on above: Performed By: #### 2 4323-8 #### GENE ADKINS ([id number]) [facility] ([place]) [address] [place] [address] Bilirubin [Mass/Vol] 0.9 mg/dL Normal 0.0-1.2 [facility] Comment on above: Performed By: #### 2 4323-8 #### GENE O'TUNDE ([id number]) [facility] ([place]) [address] [place] [address] Calcium [Mass/Vol] 9.3 mg/dL Normal 8.6-10.3 [facility] Comment on above: Performed By: #### 2 4323-8 #### GENE O'TUNDE ([id number]) [facility] ([place]) [address] [place] [address] Chloride [Moles/Vol] 106 mmol/L Normal 98-107 [facility] Comment on above: Performed By: #### 2 4323-8 #### GENE O'TUNDE ([id number]) [facility] ([place]) [address] [place] [address] CO2 [Moles/Vol] 22 mmol/L Normal 21-32 [facility] Comment on above: Performed By: #### 2 4323-8 #### GENE O'TUNDE ([id number]) [facility] ([place]) [address] [place] [address] Creatinine [Mass/Vol] 1.67 mg/dL High 0.50-1.05 [facility] Comment on above: Performed By: #### 2 4323-8 #### GENE O'TUNDE ([id number]) [facility] ([place]) [address] [place] [address] Glomerular filtration rate/1.73 sq M.predicted 31 mL/min/1.73m*2 Low >60 [facility] Comment on above: Result Comment: Calc ulations of estimated GFR are performed using the 2020 CKD-EPI Study Refit equation without the race variable for the IDMS-Traceable creatinine methods. https://jasn.asnjournals.org/content/early//ASN.701 4060447 Performed By: #### 2 4323-8 #### GENE You'TUNDE ([id number]) [facility] ([place]) [address] [place] [address] Glucose [Mass/Vol] 177 mg/dL High 74-99 [facility] Comment on above: Performed By: #### 2 4323-8 #### GENE You'TUNDE ([id number]) [facility] ([place]) [address] [place] [address] Potassium [Moles/Vol] 4.3 mmol/L Normal 3.5-5.3 [facility] Comment on above: Performed By: #### 2 4323-8 #### GENE You'TUNDE ([id number]) [facility] ([place]) [address] [place] [address] Protein [Mass/Vol] 6.8 g/dL Normal 6.4-8.2 [facility] Comment on above: Performed By: #### 2 4323-8 #### GENE You'TUNDE ([id number]) [facility]) [address] [place] [address] Sodium [Moles/Vol] 139 mmol/L Normal 136-145 [facility] Comment on above: Performed By: #### 2 4323-8 #### GENE You'TUNDE ([id number]) [facility] ([place]) [address] [place] [address] Urea nitrogen [Mass/Vol] 31 mg/dL High 6-23 [facility] Comment on above: Performed By: #### 2 4323-8 #### GENE You'TUNDE ([id number]) [facility] ([place]) [address] [place] [address] Lipaseon 01-03-2024 Lipase [Catalytic activity/Vol] 124 U/L High 9 - 82 U/L [facility] Lipase [Catalytic activity/V ol]on 01-03-2024 Interpretation and review of laboratory results Abnormal [facility] Venipuncture immedia tely after or during the administration of Metamizole may lead to falsely low results. Testing should be performed immediately prior to Metamizole dosing. [facility] PT Coag (PPP) [Time]on 01-02 INR Coag (PPP) [Relative time] 1.3 {INR} High 0.9 - 1.1 [facility] Interpretation and review of laboratory results Abnormal [facility] INR Coag (PPP) [Relative time] 1.3 High 0.9-1.1 [facility] Comment on above: Performed By: #### 5 902-2 #### JENNYFER Brunson ([id number]) [facility] ([facility]) [address] [place], [place] [id number] Protime-INRon 01-03-2024 PT Coag (PPP) [Time] 14.6 s High [facility] Triacylglycerol lipaseon Lipase [Catalytic activity/Vol] 124 U/L High 9-82 [facility] Comment on above: Order Comment: Venip uncture immediately after or during the administration of Metamizole may lead to falsely low results. Testing should be performed immediately prior to Metamizole dosing. Performed By: #### 3 040-3 #### JENNYFER Brunson ([id number]) [facility] ([facility]) [address] [place] [address] Serum or plasma cancer antig en 19-9 measurement (units/volume)on 01-01-2024 Cancer Ag 19-9 Qn 8452 [arb'U]/mL Abnormal 0-35 [facility] Comment on above: Results confirmed on dilution.[facility] Electrochemiluminescence Immunoassay(ECLIA)Values obtained with different assay methods or kits cannotbe used interchangeably. Results cannot be interpreted asabsolute evidence of the presence or absence of malignantdisease.Performed at: [facility] [id number] Director: Akash Nugent PhD, Phone: [phone] Cancer related large scale g hema targeted mutation analysis Molgen Doc (Bld/Tiss)on 12-20-2023 FOCUSED SOLID TUMOR DNA RESULTS SEE COMMENT [facility] Comment on above: Result Comment: [place] Solid Tumor DNA NGS Panel testing [id number] is CANCELLED on [id number] part C1, collected on 12/20/23, as the source block C1 has been exhausted (no tissue remains). For questions, or to arrange testing on an alternate sample, please contact the [facility]: [phone] Performed By: #### 7 3977-1 #### LISSETTE SAENZ ([id number]) [facility] ([facility]) [facility] [place] [id number] FOCUSED SOLID TUMOR DNA/RNA RESULTS SEE COMMENT [facility] Comment on above: Result Comment[facility] Panel testing [id number] is CANCELLED on [id number] part B1 collected on 12/20/23 due to insufficient tumor cellularity in the submitted sample. For questions, or to arrange testing on an alternate sample, please contact the [facility]: [phone] Performed By: #### 7 3977-1 #### LISSETTE SAENZ ([id number]) [facility] ([facility]) [facility] [place] [phone] ENDOSCOPIC ULTRASOUND (UPPER )on 12-20-2023 ENDOSCOPIC ULTRASOUND [...] sent for cytology and histology analysis. Onsite fur cutter was not present; 2 successful fine needle biopsy passes were taken with a 22 gauge needle guided by Doppler. An adequate sample was obtained. A sample was sent for histology analysis. Onsite fur cutter was not present Benign-appearing stricture (traversable) with [...] PATHOLOGY EXAM [place] (more content not included)... [facility] Comment on above: Order Comment: EGD/E [...] sent for cytology and histology analysis. Onsite fur cutter was not present; 2 successful fine needle biopsy passes were taken with a 22 gauge needle guided by Doppler. An adequate sample was obtained. A sample was sent for histology analysis. Onsite fur cutter was not present Benign-appearing stricture (traversable) with [...] BIOPSY SURGICAL PATH (more content not included)... [facility] Work Phone: [facility] Work Phone: Radiology Study observation (narrative) [facility] Work Phone: Glucose Test strip manual (B ld) [Mass/Vol]on 12-20-2023 Glucose [Mass/Vol] 177 mg/dL High 74 - 99 mg/dL [facility] Interpretation and review of laboratory results Abnormal [facility] Glucose [Mass/Vol] 177 mg/dL High 74-99 [facility] Comment on above: Performed By: #### 2 341-6 #### TOSHIA PORTILLO ([id number]) [facility] ([facility] [place] [place]) [address] [place] [address] Non-abap developer cytology studyon Non-gynecological cytology method study Pathology report.total SEE COMMENT Non-gynecologic Cytology Case: [id number] Authorizing Provider: Smooth Coelho MD Collected: 12/20/2023 1326 Ordering Location: [facility] Received: 12/20/2023 1510 Pathologist: Meliza Roger MD Specimen: ABDOMINAL FINE NEEDLE ASPIRATION, latisha abdominal mass Path report.final diagnosis SEE COMMENT A. ABDOMINAL FINE NEEDLE ASPIRATION - latisha abdominal mass , CYTOLOGY AND CELL BLOCK: Satisfactory for evaluation No malignant cells identified. See [id number]. Laboratory comment SEE COMMENT Slide(s) initially screened by DOE Trejo at [facility] [address] [facility] [id number] By the signature on this report, the individual or group listed as making the Final Interpretation/Diagnosis certifies that they have reviewed this case. Path report.gross observation SEE COMMENT A. ABDOMINAL FINE NEEDLE ASPIRATION. Received 30 ml pink clear needle rinse in Cytolyt with particles. The specimen has been sent for cytological analysis to the cytology department at [facility]. Laboratory comment SEE COMMENT A1 Slides Only (No Block) A1-1 Pap Stain NGYN ThinPrep A2 Cell Block A2-1 H&E Normal [facility] Surgical pathology studyon 0 12-20-2023 Surgical pathology study Pathology repor t.total SEE COMMENT Surgical Pathology Case: [id number] Authorizing Provider: Smooth Coelho MD Collected: 12/20/2023 1302 Ordering Location: [facility] Received: 12/20/2023 1506 Pathologist: Cele Kraus MD [...] cancers have not been established. References: Cipriano Coffey., et al. Phase 3, open-label, randomized study of first-line pembrolizumab (pembro) vs accident investigator-choice chemotherapy for mismatch repair-deficient (dMMR) or microsatellite instability-high (MSI-H) metastatic colorectal carcinoma (mCRC): KEYNOTE-177. (2017): [id number]. Lencho Ortiz, et al. KEYNOTE-164: Phase 2 study of pembrolizumab for patients with previously treated, microsatellite instability-high advanced colorectal carcinoma. (2016): [id number]. Deya Zee et al. Safety and activity of pembrolizumab in patients with locally advanced or metastatic urothelial cancer (KEYNOTE-012): a non-randomized, open-label, phase 1b study. The Lancet Oncology (2017). Hal Brooke et al. OA05. 01 Pembrolizumab in Patients with Extensive-Stage Small Cell Lung Cancer: Updated Survival Results from KEYNOTE-028. Journal of Thoracic Oncology 12.1 (2017): S259. Harley Truong, et al. Pembrolizumab for previously treated advanced cervical squamous cell cancer: Preliminary results from the phase 2 KEYNOTE-158 study. (2017): 9035-[address]71. [address]. Immunohistochemistry versus microsatellite instability testing for screening colorectal cancer patients at risk for Hereditary Nonpolyposis Colorectal Cancer Syndrome. Part1: The utility of immunohistochemistry. J Mol Diag 10(4):293-300, 2008. LUIGI Hammonds, Peter BOOTH. Colorectal cancer due [...] >30% of m (more content not included)... [facility] Basophils Auto (Bld) [#/Vol] on 12-05-2023 Basophils (Bld) [#/Vol] 0.0 10 3/uL 0.0-0.1 [facility] Basophils/100 WBC Auto (Bld) on 12-05-2023 Basophils/100 WBC (Bld) 0.5 % 0.2-2.0 [facility] Eosinophils/100 WBC Auto (Bl d)on 12-05-2023 Eosinophils/100 WBC (Bld) 4.4 % 0.9-7.0 [facility] Erythrocyte distribution wid th Auto (RBC) [Ratio]on 12-05-2023 Erythrocyte distribution width (RBC) [Ratio] 14.3 % 11.0-15.0 [facility] Estimated glomerular filtrat ion rate (GFR) non- Americanon 12-05-2023 GFR/1.73 sq M.predicted among non-blacks MDRD (S/P/Bld) [Vol rate/Area] 25 mL/min/{1.73_m2} Low >=60 [facility] Globulin Calc (S) [Mass/Vol] on 12-05-2023 Globulin (S) [Mass/Vol] 3.4 g/dL [facility] Hematocrit Auto (Bld) [Volum e fraction]on 12-05-2023 Hematocrit (Bld) [Volume fraction] 28.8 % Low 36.0-48.0 [facility] Hemoglobin [Mass/volume] in Bloodon 12-05-2023 Hemoglobin (Bld) [Mass/Vol] 9.1 g/dL Low 12.0-16.0 [facility] Laboratory - Chemistry and C hemistry - challengeon 12-05-2023 Albumin [Mass/Vol] 3.1 g/dL Low 3.4-5.0 [facility] ALP [Catalytic activity/Vol] 104 U/L 46-116 [facility] ALT [Catalytic activity/Vol] 39 U/L 14-59 [facility] AST [Catalytic activity/Vol] 33 U/L 15-37 [facility] Bilirubin [Mass/Vol] 1.0 mg/dL 0.2-1.0 [facility] Calcium [Mass/Vol] 9.0 mg/dL 8.5-10.1 [facility] Chloride [Moles/Vol] 108 mmol/L High 98-107 [facility] CO2 [Moles/Vol] 22.1 mmol/L 21.0-32.0 [facility] Creatinine [Mass/Vol] 1.95 mg/dL High 0.55-1.02 [facility] GFR/1.73 sq M.predicted MDRD (S/P/Bld) [Vol rate/Area] 30 mL/min/{1.73_m2} Low >=60 [facility] Glucose [Mass/Vol] 218 mg/dL High 74-106 [facility] Lipase [Catalytic activity/Vol] 124.0 U/L High 16.0-77.0 [facility] Potassium [Moles/Vol] 4.4 mmol/L 3.5-5.1 [facility] Protein [Mass/Vol] 6.5 g/dL 6.4-8.2 [facility] Sodium [Moles/Vol] 140 mmol/L 136-145 [facility] Urea nitrogen [Mass/Vol] 45.0 mg/dL High 7.0-18.0 [facility] Urea nitrogen/Creatinine [Mass ratio] 23.1 mg/mg [facility] Laboratory - Hematology and Cell countson 12-05-2023 Immature granulocytes/100 WBC (Bld) 0.2 % 0.0-0.5 [facility] Leukocytes [#/volume] correc sigifredo for nucleated erythrocytes in Blood by Automated counon 12-05-2023 WBC corrected for nucl RBC Auto (Bld) [#/Vol] 6.4 10 3/uL 4.0-11.0 [facility] Lymphocytes Auto (Bld) [#/Vo l]on 12-05-2023 Lymphocytes (Bld) [#/Vol] 0.9 10 3/uL Low 1.2-3.8 [facility] Lymphocytes/100 WBC Auto (Bl d)on 12-05-2023 Lymphocytes/100 WBC (Bld) 13.7 % Low 20.5-60.0 [facility] MCH Auto (RBC) [Entitic mass ]on 12-05-2023 MCH (RBC) [Entitic mass] 29.3 pg 26.7-34.0 [facility] MCHC Auto (RBC) [Mass/Vol]on 12-05-2023 MCHC (RBC) [Mass/Vol] 31.6 g/dL 29.9-35.2 [facility] MCV Auto (RBC) [Entitic vol] on 12-05-2023 MCV (RBC) [Entitic vol] 92.6 fL 81.0-99.0 [facility] Monocytes Auto (Bld) [#/Vol] on 12-05-2023 Monocytes (Bld) [#/Vol] 0.5 10 3/uL 0.3-0.8 [facility] Monocytes/100 WBC Auto (Bld) on 12-05-2023 Monocytes/100 WBC (Bld) 8.3 % 1.7-12.0 [facility] Neutrophils Auto (Bld) [#/Vo l]on 12-05-2023 Neutrophils (Bld) [#/Vol] 4.7 10 3/uL 1.4-6.5 [facility] Neutrophils/100 WBC Auto (Bl d)on 12-05-2023 Neutrophils/100 WBC (Bld) 72.9 % 43.0-75.0 [facility] No Panel Informationon 12-04 Eosinophils # (Auto) 0.3 10 3/uL 0.0-0.7 [facility] Immature Granulocyte # (Auto) 0.01 10 3/uL 0.00-0.03 [facility] Platelet mean volume Auto (B ld) [Entitic vol]on 12-05-2023 Platelet mean volume (Bld) [Entitic vol] 12.8 fL 9.5-13.5 [facility] Platelets Auto (Bld) [#/Vol] on 12-05-2023 Platelets (Bld) [#/Vol] 125 10 3/uL Low 150-450 [facility] RBC Auto (Bld) [#/Vol]on RBC (Bld) [#/Vol] 3.11 10 6/uL Low 4.20-5.40 [facility] Serum or plasma albumin/glob ulin mass ratioon 12-05-2023 Albumin/Globulin [Mass ratio] 0.9 {ratio} [facility] Serum or plasma anion gap de terminationon 12-05-2023 Anion gap [Moles/Vol] 14.3 mmol/L [facility] Activated partial thrombopla stin time (aPTT) in platelet poor plasma by coagulation aon 12-02-2023 aPTT Coag (PPP) [Time] 30.9 s 22.3-36.2 [facility] Basophils Auto (Bld) [#/Vol] on 12-02-2023 Basophils (Bld) [#/Vol] 0.0 10 3/uL 0.0-0.1 [facility] Basophils/100 WBC Auto (Bld) on 12-02-2023 Basophils/100 WBC (Bld) 0.3 % 0.2-2.0 [facility] Eosinophils/100 WBC Auto (Bl d)on 12-02-2023 Eosinophils/100 WBC (Bld) 3.7 % 0.9-7.0 [facility] Erythrocyte distribution wid th Auto (RBC) [Ratio]on 12-02-2023 Erythrocyte distribution width (RBC) [Ratio] 14.0 % 11.0-15.0 [facility] Estimated glomerular filtrat ion rate (GFR) non- Americanon 12-02-2023 GFR/1.73 sq M.predicted among non-blacks MDRD (S/P/Bld) [Vol rate/Area] 26 mL/min/{1.73_m2} Low >=60 [facility] Globulin Calc (S) [Mass/Vol] on 12-02-2023 Globulin (S) [Mass/Vol] 3.5 g/dL [facility] Hematocrit Auto (Bld) [Volum e fraction]on 12-02-2023 Hematocrit (Bld) [Volume fraction] 29.4 % Low 36.0-48.0 [facility] Hemoglobin [Mass/volume] in Bloodon 12-02-2023 Hemoglobin (Bld) [Mass/Vol] 9.7 g/dL Low 12.0-16.0 [facility] INR in Platelet poor plasma by Coagulation assayon 12-02-2023 INR Coag (PPP) [Relative time] 1.14 {INR} [facility] Comment on above: DESIRED INR:2.0-3.0 CONDITIONS NOT LISTED BELOW2.5-3.5 FOR PROSTHETIC HEART VALVE REPLACEMENT2.5-3.5 RECURRENT THROMBOSIS Laboratory - Chemistry and C hemistry - challengeon 12-02-2023 Albumin [Mass/Vol] 3.4 g/dL 3.4-5.0 [facility] ALP [Catalytic activity/Vol] 119 U/L High 46-116 [facility] ALT [Catalytic activity/Vol] 34 U/L 14-59 [facility] Amylase [Catalytic activity/Vol] 91 U/L 25-115 [facility] AST [Catalytic activity/Vol] 31 U/L 15-37 [facility] Bilirubin [Mass/Vol] 0.9 mg/dL 0.2-1.0 [facility] Calcium [Mass/Vol] 9.1 mg/dL 8.5-10.1 [facility] Chloride [Moles/Vol] 107 mmol/L 98-107 [facility] CO2 [Moles/Vol] 22.6 mmol/L 21.0-32.0 [facility] Creatinine [Mass/Vol] 1.85 mg/dL High 0.55-1.02 [facility] GFR/1.73 sq M.predicted MDRD (S/P/Bld) [Vol rate/Area] 32 mL/min/{1.73_m2} Low >=60 [facility] Glucose [Mass/Vol] 206 mg/dL High 74-106 [facility] Lactate [Moles/Vol] 1.2 mmol/L 0.4-2.0 [facility] Lipase [Catalytic activity/Vol] 179.0 U/L High 16.0-77.0 [facility] Potassium [Moles/Vol] 4.2 mmol/L 3.5-5.1 [facility] Protein [Mass/Vol] 6.9 g/dL 6.4-8.2 [facility] Sodium [Moles/Vol] 140 mmol/L 136-145 [facility] Urea nitrogen [Mass/Vol] 53.0 mg/dL High 7.0-18.0 [facility] Urea nitrogen/Creatinine [Mass ratio] 28.6 mg/mg [facility] Laboratory - Hematology and Cell countson 12-02-2023 Immature granulocytes/100 WBC (Bld) 0.3 % 0.0-0.5 [facility] Leukocytes [#/volume] correc sigifredo for nucleated erythrocytes in Blood by Automated counon 12-02-2023 WBC corrected for nucl RBC Auto (Bld) [#/Vol] 7.6 10 3/uL 4.0-11.0 [facility] Lymphocytes Auto (Bld) [#/Vo l]on 12-02-2023 Lymphocytes (Bld) [#/Vol] 0.9 10 3/uL Low 1.2-3.8 [facility] Lymphocytes/100 WBC Auto (Bl d)on 12-02-2023 Lymphocytes/100 WBC (Bld) 11.7 % Low 20.5-60.0 [facility] MCH Auto (RBC) [Entitic mass ]on 12-02-2023 MCH (RBC) [Entitic mass] 29.7 pg 26.7-34.0 [facility] MCHC Auto (RBC) [Mass/Vol]on 12-02-2023 MCHC (RBC) [Mass/Vol] 33.0 g/dL 29.9-35.2 [facility] MCV Auto (RBC) [Entitic vol] on 12-02-2023 MCV (RBC) [Entitic vol] 89.9 fL 81.0-99.0 [facility] Monocytes Auto (Bld) [#/Vol] on 12-02-2023 Monocytes (Bld) [#/Vol] 0.5 10 3/uL 0.3-0.8 [facility] Monocytes/100 WBC Auto (Bld) on 12-02-2023 Monocytes/100 WBC (Bld) 6.5 % 1.7-12.0 [facility] Neutrophils Auto (Bld) [#/Vo l]on 12-02-2023 Neutrophils (Bld) [#/Vol] 5.9 10 3/uL 1.4-6.5 [facility] Neutrophils/100 WBC Auto (Bl d)on 12-02-2023 Neutrophils/100 WBC (Bld) 77.5 % High 43.0-75.0 [facility] No Panel Informationon 12-01 Troponin I High Sensitivity 79.2 pg/mL High 4.0-51.3 [facility] Comment on above: RESULTS CALLED TO BIBIANA CHUNG RN @BY Teresa Payne [id number] POINTS HAVE BEEN ESTABLISHED BASED ON THE [...] AND CLINICAL INFORMATION. Stool Occult Blood Negative [facility] Eosinophils # (Auto) 0.3 10 3/uL 0.0-0.7 [facility] Immature Granulocyte # (Auto) 0.02 10 3/uL 0.00-0.03 [facility] Platelet mean volume Auto (B ld) [Entitic vol]on 12-02-2023 Platelet mean volume (Bld) [Entitic vol] 12.9 fL 9.5-13.5 [facility] Platelets Auto (Bld) [#/Vol] on 12-02-2023 Platelets (Bld) [#/Vol] 124 10 3/uL Low 150-450 [facility] Prothrombin time (PT)on 11-05 PT Coag (PPP) [Time] 12.0 s High 9.0-11.6 [facility] RBC Auto (Bld) [#/Vol]on RBC (Bld) [#/Vol] 3.27 10 6/uL Low 4.20-5.40 [facility] Serum or plasma albumin/glob ulin mass ratioon 12-02-2023 Albumin/Globulin [Mass ratio] 1.0 {ratio} [facility] Serum or plasma anion gap de terminationon 12-02-2023 Anion gap [Moles/Vol] 14.6 mmol/L [facility] Office Visiton 11-30-2023 Follow-up visit [id number] Trisha Parish 1945 Date Provider Department Center 11/30/2023 TOÑO SIMPSON CARD [facility] No family history on file Level of Service:47389 [place] OFFICE/OUTPATIENT ESTABLISHED LOW MDM 20 MIN Reason for Visit and Comments: Follow-up [640987] - 6 months Normal [facility] Left eye Ophthalmologic moira tmenton 08-28-2023 [facility] Radiology Study observation (narrative) [facility] Follow-Upon 05-18-2023 Follow-Up [id number] Trisha Parish 1945 F Date Provider Department Center 05/18/2023 LUCASNORMATOÑO HILTNO Galleg[facility] No family history on file Level of Service:46905 MT OFFICE/OUTPATIENT ESTABLISHED LOW MDM 20-29 MIN Reason for Visit and Comments: Post-op TAVR [730] [facility] Office Visiton 04-11-2023 Follow-up visit [id number] Trisha Parish 1945 F Date Provider Department Center 04/11/2023 MONICOESMETOÑO GREEN HILTON Galleg[facility] No family history on file Level of Service:61670 [place] OFFICE/OUTPATIENT ESTABLISHED MOD MDM 30-39 MIN Reason for Visit and Comments: Follow-up [847869] - 1 week F/U [facility] Documentationon 04-05-2023 Documentation [id number] Trisha Parish 1945 F Date Provider Department Center 04/05/2023 389-LINA LAMAS HVCVASENDO [facility] No family history on file Reason for Visit and Comments: Post-op [483] [facility] 30on 04-04-2023 30 Daily Case Managemen t [...] Recommendations: OT Recommendations: New Consults: [facility] 30 The patient is Moder ately Stable [...] and maintained or improved Outcome: Progressing Normal [facility] 30 The patient is Moder ately Stable [...] and maintained or improved Outcome: Progressing Normal [facility] B-TYPE NATRIURETIC PEPTIDEon 04-04-2023 Natriuretic peptide B (Bld) [Mass/Vol] 213 pg/mL High 0-100 [facility] Comment on above: Performed By: #### L [id number] #### [facility] ([facility]) [address] [place] [address] BASIC METABOLIC PANELon 03-08 Anion gap [Moles/Vol] 11 mmol/L Normal 7-20 [facility] Comment on above: Performed By: #### L [id number] #### [facility] ([facility]) [address] [place] [address] Calcium [Mass/Vol] 8.7 mg/dL Normal 8.6-10.3 [facility] Comment on above: Performed By: #### L [id number] #### [facility] ([facility]) [address] [place] [address] Chloride [Moles/Vol] 109 mmol/L High 98-107 [facility] Comment on above: Performed By: #### L [id number] #### [facility] ([facility]) [address] [place] [address] CO2 [Moles/Vol] 20 mmol/L Low 21-31 [facility] Comment on above: Performed By: #### L [id number] #### [facility] [address] [place] [address] Creatinine [Mass/Vol] 1.58 mg/dL High 0.60-1.20 [facility] Comment on above: Performed By: #### L [id number] #### [facility] ([facility]) [address] [place] [address] GLOMERULAR FILTRATION RATE ML/MIN/1.73 SQ M.PREDICTED 33.3 mL/min/1.73m*2 Low >60.0 [facility] Comment on above: Result Comment: [facility]???s estimated glomerular filtration rate (eGFR) will no [...] group of individuals. Performed By: #### L [id number] #### [facility] ([facility]) [address] [place] [address] Glucose [Mass/Vol] 140 mg/dL High 70-100 [facility] Comment on above: Performed By: #### L [id number] #### [facility] ([facility]) [address] [place] [address] Potassium [Moles/Vol] 4.1 mmol/L Normal 3.5-5.1 [facility] Comment on above: Performed By: #### L [id number] #### [facility] ([facility]) [address] [place] [address] Sodium [Moles/Vol] 136 mmol/L Normal 136-145 [facility] Comment on above: Performed By: #### L [id number] #### [facility] ([facility]) [address] [place] [address] Urea nitrogen [Mass/Vol] 33 mg/dL High 7-25 [facility] Comment on above: Performed By: #### L [id number] #### [facility] ([facility]) [address] [place] [address] UREA NITROGEN/CREATININE (MASS RATIO) IN SER/PLAS 20.9 Normal [facility] Comment on above: Performed By: #### L [id number] #### [facility] ([facility]) [address] [place] [address] Anion gap [Moles/Vol] 13 mmol/L Normal 7-20 [facility] Comment on above: Performed By: #### L [id number] #### [facility] ([facility]) [address] [place] [address] Calcium [Mass/Vol] 8.9 mg/dL Normal 8.6-10.3 [facility] Comment on above: Performed By: #### L [id number] #### [facility] ([facility]) [address] [place] [address] Chloride [Moles/Vol] 110 mmol/L High 98-107 [facility] Comment on above: Performed By: #### L [id number] #### [facility] ([facility]) [address] [place] [address] CO2 [Moles/Vol] 19 mmol/L Low 21-31 [facility] Comment on above: Performed By: #### L [id number] #### [facility] ([facility]) [address] [place] [address] Creatinine [Mass/Vol] 1.61 mg/dL High 0.60-1.20 [facility] Comment on above: Performed By: #### L [id number] #### [facility] ([facility]) [address] [place] [address] GLOMERULAR FILTRATION RATE ML/MIN/1.73 SQ M.PREDICTED 32.6 mL/min/1.73m*2 Low >60.0 [facility] Comment on above: Result Comment: [facility]???s estimated glomerular filtration rate (eGFR) will no [...] individuals. Performed By: #### L [id number] #### [facility] ([facility]) [address] [place] [address] Glucose [Mass/Vol] 95 mg/dL Normal 70-100 [facility] Comment on above: Performed By: #### L [id number] #### [facility] ([facility]) [address] [place] [address] Potassium [Moles/Vol] 4.2 mmol/L Normal 3.5-5.1 [facility] Comment on above: Performed By: #### L [id number] #### [facility] ([facility]) [address] [place] [address] Sodium [Moles/Vol] 138 mmol/L Normal 136-145 [facility] Comment on above: Performed By: #### L [id number] #### [facility] ([facility]) [address] [place] [address] Urea nitrogen [Mass/Vol] 34 mg/dL High 7-25 [facility] Comment on above: Performed By: #### L [id number] #### [facility] [address] [place] [address] UREA NITROGEN/CREATININE (MASS RATIO) IN SER/PLAS 21.1 Normal [facility] Comment on above: Performed By: #### L [id number] #### [facility] [address] [place] [address] CBCon 04-04-2023 Erythrocyte distribution width (RBC) [Ratio] 14.6 % Normal 11.5-15.0 [facility] Comment on above: Performed By: #### L [id number] #### [facility] [address] [place] [address] ERYTHROCYTE MEAN CORPUSCULAR HEMOGLOBIN CONCENTRATION (G/DL) BY AUTOMATED 32.8 g/dL Normal 32.0-35.0 [facility] Comment on above: Performed By: #### L [id number] #### [facility] ([facility]) [address] [place] [address] Hematocrit (Bld) [Volume fraction] 30.8 % Low 36.0-48.0 [facility] Comment on above: Performed By: #### L [id number] #### [facility] ([facility]) [address] [place] [address] Hemoglobin (Bld) [Mass/Vol] 10.1 g/dL Low 12.0-15.0 [facility] Comment on above: Performed By: #### L [id number] #### [facility] ([facility]) [address] [place] [address] MCH (RBC) [Entitic mass] 29.3 pg Normal 27.0-33.0 [facility] Comment on above: Performed By: #### L [id number] #### [facility] [address] [place] [address] MCV (RBC) [Entitic vol] 89.3 fL Normal 82.0-98.[address] [facility] Comment on above: Performed By: #### L [id number] #### [facility] [address] [place] [address] PLATELETS (10*3/UL) IN BLOOD AUTOMATED COUNT 126 10*3/uL Low 150-400 [facility] Comment on above: Performed By: #### L [id number] #### [facility] [address] [place] [address] RBC (Bld) [#/Vol] 3.45 10*6/uL Low 3.80-5.00 [facility] Comment on above: Performed By: #### L [id number] #### [facility] ([facility]) [address] [place] [address] WBC (Bld) [#/Vol] 5.60 10*3/uL Normal 4.00-10.60 [facility] Comment on above: Performed By: #### L [id number] #### [facility] ([facility]) [address] [place] [address] DSon 04-04-2023 DS ----- ----- Attestation signed [...] Medications These medications were sent to [facility] - [address] [place] [address] [address] [facility] [place] [address], [facility] [address] acetaminophen 325 mg tablet aspirin 81 mg [...] a (more content not included)... [facility] NURSNOTEon 04-04-2023 NURSNOTE Pt discharged home w ith by car [facility] 04-03-2023 30 The patient is Moder ately [...] and maintained or improved Outcome: Progressing Normal [facility] HPon 04-03-2023 HP H&P reviewed. The pa [...] brought today for the procedure. [facility] MRSA/MSSA DNA NASALon 2022 MRSA DNA Negative Normal Negative [facility] Comment on above: Order Comment: Testi ng [...] preclude nasal colonization. Performed By: #### L [id number] ####[facility] ([facility])[address] [place] [address] MSSA DNA Negative Normal Negative [facility] Comment on above: Order Comment: Testi ng [...] preclude nasal colonization. Performed By: #### L [id number] ####[facility] ([place])[address] [place] [address] NURSNOTEon 04-03-2023 NURSNOTE Report called to Kameron hay RN. He denies questions/concerns. [facility] TYPE AND SCREENon 04-03-2023 AB SCREEN Negative [facility] Comment on above: Performed By: #### L [id number] #### [facility] (BEAKER) [address] [place] [address] ABO group Nom (Bld) B Normal [facility] Comment on above: Performed By: #### L [id number] #### [facility] (BEAKER) [address] [place] [address] RH TYPE IN BLOOD Positive Normal [facility] Comment on above: Performed By: #### L [id number] #### [facility] [address] [place] [address] Orders Onlyon 03-22-2023 Orders Only [id number] Trisha Parish 1945 F Date Provider Department Center 03/22/2023 MARGARET COLLINS [facility] CARD IN HeartVAS No family history on file Normal [facility] HPon 2023 [facility] Cardiology - [facility] Subjective Trisha Parish is a [...] In September 2022 she was admitted to [facility] with weakness. She was found to [...] carvedilol (Co (more content not included)... Normal [facility] Office Visiton 2023 Follow-up visit [id number] JemVandana 1945 F Date Provider Department Center 2023 TOÑO SIMPSON [facility] No family history on file Level of Service:02339 MT OFFICE/OUTPATIENT ESTABLISHED HIGH MDM 40-54 MIN Normal [facility] Martin 02-23-2023 ANES ----- ----- Attestation signed by [...] 02/23/23 1030 Procedure: TRANSESOPHAGEAL ECHO (ELENA) Location: [facility] V[facility] Vascular Lab [...] to blood products. Additional Equipment Requests Normal [facility] HPon 02-23-2023 ----- ----- Attestation signed by [...] no changes to the H&P. [facility] NURSNOTEon 02-23-2023 NURSNOTE Pt performed and pas sed bedside swallow study test. RN educated pt on d/c instructions. RN encouraged pt to voice any questions or concerns. Pt verbalizes no questions or concerns at this time. Pt was wheeled off of unit with all of belongings. [facility] HPon 02-21-2023 Cardiology Clinic No te Subjective [...] Never Update: 02/21/2023 She was hospitalized at [facility] for 3 days after presenting [...] other elevated She was hospitalized 02/04-02/07/23 at [facility] and underwent coronary angiography and right [...] WBC 6.44 02/06 (more content not included)... [facility] Office Visiton 02-21-2023 Follow-up visit [id number] Trisha Parish 1945 F Date Provider Department Center 02/21/2023 [id number] PIÑA CARD [facility] No family history on file Level of Service:05056 MT OFFICE/OUTPATIENT ESTABLISHED MOD MDM 30-39 MIN Reason for Visit and Comments: Follow-up [237233] - Pt discharge from hospital 02/20/23 for high potassium , dizziness [facility] Telephoneon 02-16-2023 Telephone [id number] Trisha Parish 1945 F Date Provider Department Center 02/16/2023 Cristobal-WILY CORDOVA [facility] VASC LAB IN HeartVAS No family history on file Normal [facility] Orders Onlyon 02-09-2023 Orders Only [id number] Trisha Parish 1945 F Date Provider Department [place] 02/09/2023 Jazlyn-MARGARET ALVAREZ [facility] CARD IN HeartVAS No family history on file Normal [facility] 30on 02-07-2023 30 The patient is Moder ately Stable - Low risk of patient condition declining or worsening The patient's goals for the shift include comfort The clinical goals for the shift include VSS Over the shift, the patient did not make progress toward the following goals. Barriers to progression include . Recommendations to address these barriers include . Normal [facility] 30 The patient is Moder ately Stable - Low risk of patient condition declining or worsening The patient's goals for the shift include comfort, rest The clinical goals for the shift include stable Over the shift, the patient did not make progress toward the following goals. Barriers to progression include . Recommendations to address these barriers include . Normal [facility] BASIC METABOLIC PANELon 07-0 Anion gap [Moles/Vol] 10 mmol/L Normal 7-20 [facility] Comment on above: Performed By: #### L [id number] #### [facility] (BEAKER) [address] [place] [address] Calcium [Mass/Vol] 8.6 mg/dL Normal 8.6-10.3 [facility] Comment on above: Performed By: #### L [id number] #### [facility] ([facility]ER) [address] [place] [address] Chloride [Moles/Vol] 109 mmol/L High 98-107 [facility] Comment on above: Performed By: #### L [id number] #### [facility] ([facility]) [address] [place] [address] CO2 [Moles/Vol] 25 mmol/L Normal 21-31 [facility] Comment on above: Performed By: #### L [id number] #### [facility] (BEAKER) [address] [place] [address] Creatinine [Mass/Vol] 1.40 mg/dL High 0.60-1.20 [facility] Comment on above: Performed By: #### L [id number] #### [facility] ([facility]) [address] [place] [address] GLOMERULAR FILTRATION RATE ML/MIN/1.73 SQ M.PREDICTED 38.7 mL/min/1.73m*2 Low >60.0 [facility] Comment on above: Result Comment: The [facility]???s estimated glomerular filtration rate (eGFR) will no [...] individuals. Performed By: #### L [id number] #### [facility] ([facility]) [address] [place] [address] Glucose [Mass/Vol] 115 mg/dL High 70-100 [facility] Comment on above: Performed By: #### L [id number] #### [facility] ([facility]) [address] [place] [address] Potassium [Moles/Vol] 3.9 mmol/L Normal 3.5-5.1 [facility] Comment on above: Performed By: #### L [id number] #### [facility] ([facility]) [address] [place] [address] Sodium [Moles/Vol] 140 mmol/L Normal 136-145 [facility] Comment on above: Performed By: #### L [id number] #### [facility] ([facility]) [address] [place] [address] Urea nitrogen [Mass/Vol] 32 mg/dL High 7-25 [facility] Comment on above: Performed By: #### L [id number] #### [facility] ([facility]) [address] [place] [address] UREA NITROGEN/CREATININE (MASS RATIO) IN SER/PLAS 22.9 Normal [facility] Comment on above: Performed By: #### L [id number] #### [facility] ([facility]) [address] [place] [address] MAGNESIUMon 02-07-2023 Magnesium [Mass/Vol] 2.0 mg/dL Normal 1.9-2.7 [facility] Comment on above: Performed By: #### L [id number] #### [facility] ([facility]) [address] [place] [address] BASIC METABOLIC PANELon Anion gap [Moles/Vol] 10 mmol/L Normal 7-20 [facility] Comment on above: Performed By: #### L [id number] #### [facility] ([facility]) [address] [place] [address] Calcium [Mass/Vol] 8.6 mg/dL Normal 8.6-10.3 [facility] Comment on above: Performed By: #### L [id number] #### [facility] ([facility]) [address] [place] [address] Chloride [Moles/Vol] 109 mmol/L High 98-107 [facility] Comment on above: Performed By: #### L [id number] #### [facility] ([facility]) [address] [place] [address] CO2 [Moles/Vol] 25 mmol/L Normal 21-31 [facility] Comment on above: Performed By: #### L [id number] #### [facility] [address] [place] [address] Creatinine [Mass/Vol] 1.32 mg/dL High 0.60-1.20 [facility] Comment on above: Performed By: #### L [id number] #### [facility] ([facility]) [address] [place] [address] GLOMERULAR FILTRATION RATE ML/MIN/1.73 SQ M.PREDICTED 41.6 mL/min/1.73m*2 Low >60.0 [facility] Comment on above: Result Comment: The [facility]???s estimated glomerular filtration rate (eGFR) will no [...] group of individuals. Performed By: #### L [id number] #### [facility] ([facility]) [address] [place] [address] Glucose [Mass/Vol] 142 mg/dL High 70-100 [facility] Comment on above: Performed By: #### L [id number] #### [facility] ([facility]) [address] [place] [address] Potassium [Moles/Vol] 3.8 mmol/L Normal 3.5-5.1 [facility] Comment on above: Performed By: #### L [id number] #### [facility] ([facility]) [address] [place] [address] Sodium [Moles/Vol] 140 mmol/L Normal 136-145 [facility] Comment on above: Performed By: #### L [id number] #### [facility] ([facility]) [address] [place] [address] Urea nitrogen [Mass/Vol] 31 mg/dL High 7-25 [facility] Comment on above: Performed By: #### L [id number] #### [facility] ([facility]) [address] [place] [address] UREA NITROGEN/CREATININE (MASS RATIO) IN SER/PLAS 23.5 Normal [facility] Comment on above: Performed By: #### L [id number] #### [facility] [address] [place] [address] CBCon 02-06-2023 Erythrocyte distribution width (RBC) [Ratio] 14.1 % Normal 11.5-15.0 [facility] Comment on above: Performed By: #### L [id number] #### [facility] [address] [place] [address] ERYTHROCYTE MEAN CORPUSCULAR HEMOGLOBIN CONCENTRATION (G/DL) BY AUTOMATED 33.6 g/dL Normal 32.0-35.0 [facility] Comment on above: Performed By: #### L [id number] #### [facility] [address] [place] [address] Hematocrit (Bld) [Volume fraction] 33.3 % Low 36.0-48.0 [facility] Comment on above: Performed By: #### L [id number] #### [facility] [address] [place] [address] Hemoglobin (Bld) [Mass/Vol] 11.2 g/dL Low 12.0-15.0 [facility] Comment on above: Performed By: #### L [id number] #### [facility] (BEAKER) [address] [place] [address] MCH (RBC) [Entitic mass] 29.3 pg Normal 27.0-33.0 [facility] Comment on above: Performed By: #### L [id number] #### [facility] (BEAKER) [address] [place] [address] MCV (RBC) [Entitic vol] 87.2 fL Normal 82.0-98.[address] [facility] Comment on above: Performed By: #### L [id number] #### [facility] (BEAKER) [address] [place] [address] PLATELETS (10*3/UL) IN BLOOD AUTOMATED COUNT 152 10*3/uL Normal 150-400 [facility] Comment on above: Performed By: #### L [id number] #### [facility] ([facility]) [address] [place] [address] RBC (Bld) [#/Vol] 3.82 10*6/uL Normal 3.80-5.00 [facility] Comment on above: Performed By: #### L [id number] #### [facility] ([facility]) [address] [place] [address] WBC (Bld) [#/Vol] 6.44 10*3/uL Normal 4.00-10.60 [facility] Comment on above: Performed By: #### L [id number] #### [facility] ([facility]) [address] [place] [address] CONSULTon 02-06-2023 CONSULT Inpatient consult to Cardiothoracic [...] per patient for which she saw her provisioning analyst Dr. Soto- medications were adjusted and pacemaker [...] has a past medical history of A-fib ([facility] Cancer ([facility]), Coronary artery [...] is not (more content not included)... Normal [facility] MAGNESIUMon 02-06-2023 Magnesium [Mass/Vol] 1.7 mg/dL Low 1.9-2.7 [facility] Comment on above: Performed By: #### L [id number] #### [facility] ([facility]ER) [address] [place] [address] 30on 02-05-2023 30 The patient is Moder [...] maintained or improved Outcome: Progressing [facility] 30 Daily Case Managemen t Update Multidisciplinary [...] Recommendations: OT Recommendations: New Consults: [facility] 30 Problem: Pain - Adul t Goal: [...] Flowsheets (Taken 02/05/2023745) Free from fall injury: [place] fall precautions as indicated by assessment Educate [...] goals for the shift include vss Normal [facility] 30 The patient is Moder ately Stable - Low risk of patient condition declining or worsening The patient's goals for the shift include comfort The clinical goals for the shift include vss Normal [facility] BASIC METABOLIC PANELon 07-0 Anion gap [Moles/Vol] 12 mmol/L Normal 7-20 [facility] Comment on above: Performed By: #### L [id number] #### [facility] ([facility]) [address] [place] [address] Calcium [Mass/Vol] 8.8 mg/dL Normal 8.6-10.3 [facility] Comment on above: Performed By: #### L [id number] #### [facility] ([facility]) [address] [place] [address] Chloride [Moles/Vol] 107 mmol/L Normal 98-107 [facility] Comment on above: Performed By: #### L [id number] #### [facility] ([facility]) [address] [place] [address] CO2 [Moles/Vol] 25 mmol/L Normal 21-31 [facility] Comment on above: Performed By: #### L [id number] #### [facility] ([facility]) [address] [place] [address] Creatinine [Mass/Vol] 1.18 mg/dL Normal 0.60-1.20 [facility] Comment on above: Performed By: #### L [id number] #### [facility] ([facility]) [address] [place] [address] GLOMERULAR FILTRATION RATE ML/MIN/1.73 SQ M.PREDICTED 47.6 mL/min/1.73m*2 Low >60.0 [facility] Comment on above: Result Comment: [facility]???s estimated glomerular filtration rate (eGFR) [...] group of individuals. Performed By: #### L [id number] #### [facility] [address] [place] [address] Glucose [Mass/Vol] 99 mg/dL Normal 70-100 [facility] Comment on above: Performed By: #### L [id number] #### [facility] ([facility]) [address] [place] [address] Potassium [Moles/Vol] 3.8 mmol/L Normal 3.5-5.1 [facility] Comment on above: Performed By: #### L [id number] #### [facility] [address] [place] [address] Sodium [Moles/Vol] 140 mmol/L Normal 136-145 [facility] Comment on above: Performed By: #### L [id number] #### [facility] (BEAKER) [address] [place] [address] Urea nitrogen [Mass/Vol] 28 mg/dL High 7-25 [facility] Comment on above: Performed By: #### L [id number] #### [facility] [address] [place] [address] UREA NITROGEN/CREATININE (MASS RATIO) IN SER/PLAS 23.7 Normal [facility] Comment on above: Performed By: #### L [id number] #### [facility] (BEAKER) [address] [place] [address] Anion gap [Moles/Vol] 12 mmol/L Normal 7-20 [facility] Comment on above: Performed By: #### L [id number] #### [facility] [address] [place] [address] Calcium [Mass/Vol] 9.0 mg/dL Normal 8.6-10.3 [facility] Comment on above: Performed By: #### L [id number] #### [facility] [address] [place] [address] Chloride [Moles/Vol] 107 mmol/L Normal 98-107 [facility] Comment on above: Performed By: #### L [id number] #### [facility] [address] [place] [address] CO2 [Moles/Vol] 23 mmol/L Normal 21-31 [facility] Comment on above: Performed By: #### L [id number] #### [facility] ([facility]) [address] [place] [address] Creatinine [Mass/Vol] 1.12 mg/dL Normal 0.60-1.20 [facility] Comment on above: Performed By: #### L [id number] #### [facility] ([facility]) [address] [place] [address] GLOMERULAR FILTRATION RATE ML/MIN/1.73 SQ M.PREDICTED 50.6 mL/min/1.73m*2 Low >60.0 [facility] Comment on above: Result Comment: [facility]???s estimated glomerular filtration rate (eGFR) will no [...] individuals. Performed By: #### L [id number] #### [facility] ([facility]) [address] [place] [address] Glucose [Mass/Vol] 121 mg/dL High 70-100 [facility] Comment on above: Performed By: #### L [id number] #### [facility] ([facility]) [address] [place] [address] Potassium [Moles/Vol] 3.8 mmol/L Normal 3.5-5.1 [facility] Comment on above: Performed By: #### L [id number] #### [facility] ([facility]) [address] [facility] [place] [address] Sodium [Moles/Vol] 138 mmol/L Normal 136-145 [facility] Comment on above: Performed By: #### L [id number] #### [facility] ([facility]) [address] [place] [address] Urea nitrogen [Mass/Vol] 28 mg/dL High 7-25 [facility] Comment on above: Performed By: #### L [id number] #### [facility] ([facility]) [address] [place] [address] UREA NITROGEN/CREATININE (MASS RATIO) IN SER/PLAS 25.0 Normal [facility] Comment on above: Performed By: #### L [id number] #### [facility] ([facility]) [address] [place] [place] [address] CBC WITH AUTO DIFFERENTIALon 02-05-2023 Basophils (Bld) [#/Vol] 0.03 10*3/uL Normal 0.00-0.20 [facility] Comment on above: Performed By: #### L [id number] #### [facility] ([facility]) [address] [place] [address] Basophils/100 WBC (Bld) 0.4 % Normal 0.0-1.[address] [facility] Comment on above: Performed By: #### L [id number] #### [facility] ([facility]) [address] [place] [address] Eosinophils (Bld) [#/Vol] 0.65 10*3/uL High 0.00-0.50 [facility] Comment on above: Performed By: #### L [id number] #### [facility] [address] [place] [address] Eosinophils/100 WBC (Bld) 8.6 % High 0.0-6.0 [facility] Comment on above: Performed By: #### L [id number] #### [facility] ([facility]) [address] [place] [address] Erythrocyte distribution width (RBC) [Ratio] 14.1 % Normal 11.5-15.0 [facility] Comment on above: Performed By: #### L [id number] #### [facility] ([facility]) [address] [place] [address] ERYTHROCYTE MEAN CORPUSCULAR HEMOGLOBIN CONCENTRATION (G/DL) BY AUTOMATED 33.1 g/dL Normal 32.0-35.0 [facility] Comment on above: Performed By: #### L [id number] #### [facility] ([facility]) [address] [place] [address] Hematocrit (Bld) [Volume fraction] 37.5 % Normal 36.0-48.0 [facility] Comment on above: Performed By: #### L [id number] #### [facility] (BEAKER) [address] [place] [address] Hemoglobin (Bld) [Mass/Vol] 12.4 g/dL Normal 12.0-15.0 [facility] Comment on above: Performed By: #### L [id number] #### [facility] [address] [place] [address] Immature granulocytes (Bld) [#/Vol] 0.02 10*3/uL Normal 0.00-0.20 [facility] Comment on above: Performed By: #### L [id number] #### [facility] (BEAKER) [address] [place] [address] Immature granulocytes/100 WBC (Bld) 0.3 % Normal 0.0-1.0 [facility] Comment on above: Performed By: #### L [id number] #### [facility] ([facility]) [address] [place] [address] Lymphocytes (Bld) [#/Vol] 1.46 10*3/uL Normal 1.20-4.00 [facility] Comment on above: Performed By: #### L [id number] #### [facility] ([facility]) [address] [place] [address] Lymphocytes/100 WBC (Bld) 19.3 % Low 20.0-45.0 [facility] Comment on above: Performed By: #### L [id number] #### [facility] ([facility]) [address] [place] [address] MCH (RBC) [Entitic mass] 28.8 pg Normal 27.0-33.0 [facility] Comment on above: Performed By: #### L [id number] #### [facility] ([facility]) [address] [place] [address] MCV (RBC) [Entitic vol] 87.0 fL Normal 82.0-98.[address] [facility] Comment on above: Performed By: #### L [id number] #### [facility] ([facility]) [address] [place] [address] Monocytes (Bld) [#/Vol] 0.69 10*3/uL Normal 0.10-1.00 [facility] Comment on above: Performed By: #### L [id number] #### [facility] ([facility]) [address] [place] [address] Monocytes/100 WBC (Bld) 9.1 % Normal 5.0-12.[address] [facility] Comment on above: Performed By: #### L [id number] #### [facility] [address] [place] [address] Neutrophils (Bld) [#/Vol] 4.73 10*3/uL Normal 1.60-7.60 [facility] Comment on above: Performed By: #### L [id number] #### [facility] [address] [place] [address] Neutrophils/100 WBC (Bld) 62.3 % Normal 40.0-72.0 [facility] Comment on above: Performed By: #### L [id number] #### [facility] ([facility]) [address] [place] [address] NRBC (PER 100 WBCS) BY AUTOMATED COUNT 0.0 % Normal 0 [facility] Comment on above: Performed By: #### L [id number] #### [facility] ([facility]) [address] [place] [address] PLATELETS (10*3/UL) IN BLOOD AUTOMATED COUNT 175 10*3/uL Normal 150-400 [facility] Comment on above: Performed By: #### L [id number] #### [facility] ([facility]) [address] [place] [address] RBC (Bld) [#/Vol] 4.31 10*6/uL Normal 3.80-5.00 [facility] Comment on above: Performed By: #### L [id number] #### [facility] ([facility]) [address] [place] [address] WBC (Bld) [#/Vol] 7.58 10*3/uL Normal 4.00-10.60 [facility] Comment on above: Performed By: #### L [id number] #### [facility] ([facility]) [address] [place] [address] CONSULTon 02-05-2023 CONSULT ----- ----- Attestation signed [...] The patient is very high risk. ----- [place] Cardiology Consult Note Reason for visit: near-syncope [...] no lightheadedness, (more content not included)... Normal [facility] HEPATIC FUNCTION PANELon Albumin [Mass/Vol] 3.8 g/dL Normal 3.5-5.7 [facility] Comment on above: Performed By: #### L [id number] #### [facility] ([facility]) [address] [place] [address] ALP [Catalytic activity/Vol] 92 U/L Normal 34-104 [facility] Comment on above: Performed By: #### L [id number] #### [facility] ([facility]) [address] [place] [address] ALT [Catalytic activity/Vol] 11 U/L Normal 7-52 [facility] Comment on above: Performed By: #### L [id number] #### [facility] ([facility]) [address] [place] [address] AST [Catalytic activity/Vol] 23 U/L Normal 13-39 [facility] Comment on above: Performed By: #### L [id number] #### [facility] ([facility]) [address] [place] [address] Bilirubin [Mass/Vol] 0.8 mg/dL Normal 0.3-1.0 [facility] Comment on above: Performed By: #### L [id number] #### [facility] ([facility]) [address] [place] [address] Magnesium [Mass/Vol] 0.1 mg/dL Normal 0-0.2 [facility] Comment on above: Performed By: #### L [id number] #### [facility] [address] [facility] [place] [address] Protein [Mass/Vol] 6.5 g/dL Normal 6.0-8.3 [facility] Comment on above: Performed By: #### L [id number] #### [facility] [address] [facility] [address] HPon 02-05-2023 HP H&P reviewed. The pa tient was examined and there are no changes to the H&P. [facility] HP H&P reviewed. The pa tient was examined and there are no changes to the H&P. [facility] HP ----- ----- Attestation signed by Matilda [...] The patient is very high risk. ----- [place] Cardiology Consult Note Reason for visit: near-syncope [...] PMH: Past Medical History: Diagnosis Date A-fib ([facility]) Cancer ([facility]/HCC) Coronary artery disease Hypertension Myocardial infarct ([facility]/HCC) Stroke ([facility]) PSH: Past [...] by mouth 4 (four) times a week. Sun,,Wed,Fri NIFEdipine CC (Adalat CC) 30 mg 24 hr tablet Take 30 mg by mouth before breakfast. Do not crush, chew, or split. sennosides-docusate sodium (Latisha-Colace) 8.6-50 mg tablet Take 1 tablet by mouth in the morning. Wed,Thur,Sat,Sun ROS: Cardio Basic Cardiovascular Symptoms: no lightheadedness, (more content not included)... Normal [facility] MAGNESIUMon 02-05-2023 Magnesium [Mass/Vol] 1.4 mg/dL Low 1.9-2.7 [facility] Comment on above: Performed By: #### L [id number] ####[facility] ([facility])[address] [place] [address] TROPONIN Ion 02-05-2023 Troponin I.cardiac [Mass/Vol] 0.25 ng/mL Critically high 0.00-0.04 [facility] Comment on above: Result Comment: M-MT EVIOUS CRITICAL RESULT Previous result verified on 02/05/2023 0550 on specimen/case [id number] called with component Troponin I for procedure Troponin I with value 0.21 ng/mL. Performed By: #### L [id number] #### [facility] ([facility]) [address] [place] [address] Troponin I.cardiac [Mass/Vol] 0.21 ng/mL Critically high 0.00-0.04 [facility] Comment on above: Result Comment: M-MT EVIOUS CRITICAL RESULT Previous result verified on 02/05/2023 0053 on specimen/case [id number] called with component Troponin I for procedure Troponin I with value 0.27 ng/mL. Performed By: #### L [id number] #### [facility] ([facility]) [address] [place] [address] Troponin I.cardiac [Mass/Vol] 0.27 ng/mL Critically high 0.00-0.04 [facility] Comment on above: Result Comment: M-TR OPONIN INITIAL CRITICAL HIGH; RESPUN AND RETESTED Performed By: #### L [id number] #### [facility] ([facility]) [address] [place] [address] HPon 01-23-2023 [facility] Electrophysiology Consult Note Reason for visit: s/p PPM for AV block, AF s/p cryomaze HPI: Trisha Parish is a 77 y.o. 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 She was recently admitted to [facility] for weakness, suspected to have a [...] stroke who presented with generalized weakness to [facility]. At [facility], EKG demonstarted a 2:1 AV block with prolonged MT interval 266. Chest x-ray demonstrated possible trace [...] heart rate 59. Patient was transferred to [facility] for further evaluation by cardiology. She [...] PMH: Past Medical History: Diagnosis Date A-fib ([facility]) Cancer ([facility]) Coronary artery disease Hypertension Myocardial infarct ([facility]) Stroke ([facility]) PSH: Past [...] tablet anastrozole (more content not included)... Normal [facility] Office Visiton 01-23-2023 Follow-up visit [id number] Trisha Parish 1945 [facility] Provider Department Center 01/23/2023 MANDI FUENTES [facility] No family history on file Level of Service:07226 MT OFFICE/OUTPATIENT NEW MODERATE MDM 45-59 MINUTES Reason for Visit and Comments: Follow-up [010973] - 3 month follow up [facility] Office Visiton 01-17-2023 Follow-up visit [id number] Trisha Parish E 1945 Date Provider Department Center 01/17/2023 TOÑO SIMPSON [facility] No family history on file Level of Service:35470 MT OFFICE/OUTPATIENT ESTABLISHED MOD MDM 30-39 MIN Reason for Visit and Comments: Valve Disorder [3372] Atrial Fibrillation [80] Coronary Artery Disease [187] Normal [facility] PTH INTACTon 10-07-2022 PTH, Intact 45 pg/mL Normal 15-65 [facility] Comment on above: Performed By: #### P T, PTT #### [facility] [address] [address] [address] Madisyn Bentley RENAL FUNCTION PANELon 10-06 Albumin [Mass/Vol] 3.3 g/dL Critically low 3.4-5.0 [facility] Comment on above: Performed By: #### R ENAL #### [facility] [address] [address] [address] Madisyn Bentley Calcium [Mass/Vol] 8.2 mg/dL Critically low 8.5-10.1 [facility] Comment on above: Performed By: #### R ENAL #### [facility] [address] [place] [address] Dr. Madisyn Bentley Chloride [Moles/Vol] 110 mmol/L Critically high 98-107 [facility] Comment on above: Performed By: #### R ENAL #### [facility] [address] [place] [address] Dr. Madisyn Bentley CO2 [Moles/Vol] 22.2 mmol/L Normal 21.0-32.0 [facility] Comment on above: Performed By: #### R ENAL #### [facility] [address] [place] [address] Dr. Madisyn Bentley Creatinine [Mass/Vol] 1.36 mg/dL Critically high 0.55-1.02 [facility] Comment on above: Performed By: #### R ENAL #### [facility] [address] [place] [address] Dr. Madisyn Bentley EGFR-AF URUGUAYAN 46 mL/min/1.73m2 Critically low >=60 [facility] Comment on above: Performed By: #### R ENAL #### [facility] [address] [place] [address] Dr. Madisyn Bentley EGFR-NON AF URUGUAYAN 38 mL/min/1.73m2 Critically low >=60 [facility] Comment on above: Performed By: #### R ENAL #### [facility] [address] [place] [address] Dr. Madisyn Bentley Glucose [Mass/Vol] 145 mg/dL Critically high 74-106 [facility] Comment on above: Performed By: #### R ENAL #### [facility] [address] [place] [address] Dr. Madisyn Bentley Phosphate [Mass/Vol] 2.7 mg/dL Normal 2.6-4.7 [facility] Comment on above: Performed By: #### R ENAL #### [facility] [address] [place] [address] Dr. Madisyn Bentley Potassium [Moles/Vol] 3.9 mmol/L Normal 3.5-5.1 [facility] Comment on above: Performed By: #### R ENAL #### [facility] [address] [place] [address] Dr. Madisyn Bentley Sodium [Moles/Vol] 143 mmol/L Normal 136-145 [facility] Comment on above: Performed By: #### R ENAL #### [facility] [address] [place] [address] Dr. Madisyn Bentley Urea nitrogen [Mass/Vol] 24.0 mg/dL Critically high 7.0-18 .0 [facility] Comment on above: Performed By: #### R ENAL #### [facility] [address] [place] [address] Dr. Madisyn Bentley UA RANDOMon 10-06-2022 Bilirubin Ql (U) Negative Normal NEGATIVE [facility] Comment on above: Performed By: #### R ENAL #### [facility] [address] [place] [address] Dr. Madisyn Bentley Clarity (U) CLEAR Normal CLEAR [facility] Comment on above: Performed By: #### R ENAL #### [facility] [address] [place] [address] Dr. Madisyn Bentley Color (U) LT. YELLOW Normal YELLOW [facility] Comment on above: Performed By: #### R ENAL #### [facility] [address] [place] [address] Dr. Madisyn Bentley Glucose Ql (U) Negative Normal NEGATIVE [facility] Comment on above: Performed By: #### R ENAL #### [facility] [address] [place] [address] Dr. Madisyn Bentley Hemoglobin Ql (U) Negative Normal NEGATIVE [facility] Comment on above: Performed By: #### R ENAL #### [facility] [address] [place] [address] Dr. Madisyn Bentley Ketones Ql (U) Negative Normal NEGATIVE [facility] Comment on above: Performed By: #### R ENAL #### [facility] [address] [place] [address] Dr. Madisyn Bentley LEUKOCYTES SMALL Abnormal NEGATIVE [facility] Comment on above: Performed By: #### R ENAL #### [facility] [address] [place] [address] Dr. Madisyn Bentley Nitrite Ql (U) Negative Normal NEGATIVE [facility] Comment on above: Performed By: #### R ENAL #### [facility] [address] [place] [address] Dr. Madisyn Bentley pH (U) 5.5 [pH] Normal 5-9 [facility] Comment on above: Performed By: #### R ENAL #### [facility] [address] [place] [address] Dr. Madisyn Bentley SPEC GRAVITY 1.020 Normal 1.005-<=1. 025 [facility] Comment on above: Performed By: #### R ENAL #### [facility] [address] [place] [address] Dr. Madisyn Bentley UA PROTEIN TRACE Normal NEGATIVE/ TRACE [facility] Comment on above: Performed By: #### R ENAL #### [facility] [address] [place] [address] Dr. Madisyn Bentley Urobilinogen Qn (U) 0.2 {Luis Eduardo'U}/dL Normal 0.2 - 1. 0 [facility] Comment on above: Performed By: #### R ENAL #### [facility] [address] [place] [address] Dr. Madisyn Bentley URINE T PROTEIN CREAT RATIOo n 10-06-2022 Protein (U) [Mass/Vol] 47.8 mg/dL Critically high <=12.0 [facility] Comment on above: Performed By: #### U RTPCR #### [facility] [address] [place] [address] Dr. Madisyn Bentley UR PROT CREAT RAT 0.26 Normal [facility] Comment on above: Performed By: #### U RTPCR #### [facility] [address] [place] [address] Dr. Madisyn Bentley URINE CREAT 186.22 mg/dL Normal 20.00-300. 00 [facility] Comment on above: Performed By: #### U RTPCR #### [facility] [address] [place] [address] Dr. Madisyn Bentley BNPon 09-10-2022 Natriuretic peptide B (Bld) [Mass/Vol] 34112.0 pg/mL Critically high <=1,800.0 [facility] Comment on above: Performed By: #### B ROOFER HELPER, HSTROPN #### [facility] [address] [place] [address] Dr. Madisyn Bentley CBC AUTO DIFFon 09-10-2022 BASO # 0.0 103/ul Normal 0.0-0.1 [facility] Comment on above: Performed By: #### R ENAL #### [facility] [address] [place] [address] Dr. Madisyn Bentley Basophils/100 WBC (Bld) 0.3 % Normal 0.2-2.0 [facility] Comment on above: Performed By: #### R ENAL #### [facility] [address] [place] [address] Dr. Madisyn Bentley EO # 0.3 103/ul Normal 0.0-0.7 [facility] Comment on above: Performed By: #### R ENAL #### [facility] [address] [place] [address] Dr. Madisyn Bentley Eosinophils/100 WBC (Bld) 2.4 % Normal 0.9-7.0 [facility] Comment on above: Performed By: #### R ENAL #### [facility] [address] [place] [address] Dr. Madisyn Bentley Erythrocyte distribution width (RBC) [Ratio] 13.3 % Normal 11.0-15.0 [facility] Comment on above: Performed By: #### R ENAL #### [facility] [address] [place] [address] Dr. Madisyn Bentley Hematocrit (Bld) [Volume fraction] 36.0 % Normal 36.0-48.0 [facility] Comment on above: Performed By: #### R ENAL #### [facility] [address] [place], [place] [id number] Dr. Madisyn Bentley Hemoglobin (Bld) [Mass/Vol] 11.2 g/dL Critically low 12.0-16.0 [facility] Comment on above: Performed By: #### R ENAL #### [facility] [address] [place] [address] Dr. Madisyn Bentley IG # 0.02 10e3/ul Normal 0.00-0.03 [facility] Comment on above: Performed By: #### R ENAL #### [facility] [address] [place] [address] Dr. Madisyn Bentley IG % 0.2 % Normal 0.0-0.5 [facility] Comment on above: Performed By: #### R ENAL #### [facility] [address] [place] [address] Dr. Madisyn Bentley LYMPH # 1.4 103/ul Normal 1.2-3.8 [facility] Comment on above: Performed By: #### R ENAL #### [facility] [address] [place] [address] Dr. Madisyn Bentley Lymphocytes/100 WBC (Bld) 13.3 % Critically low 20.5-60.0 [facility] Comment on above: Performed By: #### R ENAL #### [facility] [address] [place] [address] Dr. Madisyn Bentley MANUAL DIFF REQ NO Normal [facility] Comment on above: Performed By: #### R ENAL #### [facility] [address] [place] [address] Dr. Madisyn Bentley MCH (RBC) [Entitic mass] 28.9 pg Normal 26.7-34.0 [facility] Comment on above: Performed By: #### R ENAL #### [facility] [address] [place] [address] Dr. Madisyn Bentley MCHC (RBC) [Mass/Vol] 31.1 g/dL Normal 29.9-35.2 [facility] Comment on above: Performed By: #### R ENAL #### [facility] [address] [place] [address] Dr. Madisyn Bentley MCV (RBC) [Entitic vol] 92.8 fL Normal 81.0-99.0 [facility] Comment on above: Performed By: #### R ENAL #### [facility] [address] [place] [address] Dr. Madisyn Bentley MONO # 0.9 103/ul Critically high 0.3-0.8 [facility] Comment on above: Performed By: #### R ENAL #### [facility] [address] [place] [address] Dr. Madisyn Bentley Monocytes/100 WBC (Bld) 8.4 % Normal 1.7-12.0 [facility] Comment on above: Performed By: #### R ENAL #### [facility] [address] [place] [address] Dr. Madisyn Bentley NEUT # 8.1 103/ul Critically high 1.4-6.5 [facility] Comment on above: Performed By: #### R ENAL #### [facility] [address] [place] [address] Dr. Madisyn Bentley Neutrophils/100 WBC (Bld) 75.4 % Critically high 43.0-75.0 [facility] Comment on above: Performed By: #### R ENAL #### [facility] [address] [place] [address] Dr. Madisyn Bentley Platelet mean volume (Bld) [Entitic vol] 12.8 fL Normal 9.5-13.5 [facility] Comment on above: Performed By: #### R ENAL #### [facility] [address] [place] [address] Dr. Madisyn Bentley PLT 200 103/ul Normal 150-450 [facility] Comment on above: Performed By: #### R ENAL #### [facility] [address] [place] [address] Dr. Madisyn Bentley RBC 3.88 106/ul Critically low 4.20-5.40 [facility] Comment on above: Performed By: #### R ENAL #### [facility] [address] [place] [address] Dr. Madisyn Bentley WBC 10.8 103/ul Normal 4.0-11.0 [facility] Comment on above: Performed By: #### R ENAL #### [facility] [address] [place] [address] Dr. Madisyn Bentley Covid-19 PCR ([facility])on SARS-CoV-2 (COVID-19) RNA SUSAN+probe Ql (Unsp spec) Not detected Normal NOT DETECTED [facility] Comment on above: Result Comment: When [...] for this test is supported by the [place] of Health and Human Service's declaration that [...] Performed By: #### P T, PTT #### [facility] [address] [place] [address] Dr. Madisyn Bentley PROF 14(COMP METB)on 023 Albumin [Mass/Vol] 3.0 g/dL Critically low 3.4-5.0 Th e [facility] Comment on above: Performed By: #### R ENAL #### [facility] [address] [place] [address] Dr. Madisyn Bentley Albumin/Globulin [Mass ratio] 0.8 {ratio} Normal [facility] Comment on above: Performed By: #### R ENAL #### [facility] [address] [place] [address] Dr. Madisyn Bentley ALP [Catalytic activity/Vol] 113 U/L Normal 46-116 [facility] Comment on above: Performed By: #### R ENAL #### [facility] [address] [address] [address] Madisyn Bentley ALT [Catalytic activity/Vol] 15 U/L Normal 14-59 [facility] Comment on above: Performed By: #### R ENAL #### [facility] [address] [address] [address] Madisyn Bentley Anion gap [Moles/Vol] 16.4 mmol/L Normal Th e [facility] Comment on above: Performed By: #### R ENAL #### [facility] [address] [address] [address] Madisyn Bentley AST [Catalytic activity/Vol] 15 U/L Normal 15-37 [facility] Comment on above: Performed By: #### R ENAL #### [facility] [address] [address] [address] Madisyn Bentley Bilirubin [Mass/Vol] 0.6 mg/dL Normal 0.2-1.0 [facility] Comment on above: Performed By: #### R ENAL #### [facility] [address] [address] [address] Madisyn Bentley Calcium [Mass/Vol] 8.6 mg/dL Normal 8.5-10.1 [facility] Comment on above: Performed By: #### R ENAL #### [facility] [address] [address] [address] Madisyn Bentley Chloride [Moles/Vol] 102 mmol/L Normal 98-107 [facility] Comment on above: Performed By: #### R ENAL #### [facility] [address] [address] [address] Madisyn Bentley CO2 [Moles/Vol] 18.9 mmol/L Critically low 21.0-32.0 [facility] Comment on above: Performed By: #### R ENAL #### [facility] [address] [address] [address] Madisyn Bentley Creatinine [Mass/Vol] 1.95 mg/dL Critically high 0.55-1.02 [facility] Comment on above: Performed By: #### R ENAL #### [facility] [address] [address] [address] Madisyn Bentley EGFR-AF URUGUAYAN 30 mL/min/1.73m2 Critically low >=60 [facility] Comment on above: Performed By: #### R ENAL #### [facility] [address] [address] [address] Madisyn Bentley EGFR-NON AF URUGUAYAN 25 mL/min/1.73m2 Critically low >=60 [facility] Comment on above: Performed By: #### R ENAL #### [facility] [address] [address] [address] Madisyn Bentley Globulin (S) [Mass/Vol] 3.7 g/dL Normal [facility] Comment on above: Performed By: #### R ENAL #### [facility] [address] [address] [address] Madisyn Bentley Glucose [Mass/Vol] 190 mg/dL Critically high 74-106 [facility] Comment on above: Performed By: #### R ENAL #### [facility] [address] [address] [address] Madisyn Bentley Potassium [Moles/Vol] 4.3 mmol/L Normal 3.5-5.1 [facility] Comment on above: Performed By: #### R ENAL #### [facility] [address] [address] [address] Madisyn Bentley Protein [Mass/Vol] 6.7 g/dL Normal 6.4-8.2 [facility] Comment on above: Performed By: #### R ENAL #### [facility] [address] [address] [address] Madisyn Bentley Sodium [Moles/Vol] 133 mmol/L Critically low 136-145 [facility] Comment on above: Performed By: #### R ENAL #### [facility] [address] [address] [address] Madisyn Bentley Urea nitrogen [Mass/Vol] 51.0 mg/dL Critically high 7.0-18 .0 [facility] Comment on above: Performed By: #### R ENAL #### [facility] [address] [place] [address] Dr. Madisyn Bentley Urea nitrogen/Creatinine [Mass ratio] 26.2 mg/mg Normal [facility] Comment on above: Performed By: #### R ENAL #### [facility] [address] [place] [address] Dr. Madisyn Bentley PROTIMEon 09-10-2022 INR Coag (PPP) [Relative time] 1.20 {INR} Normal [facility] Comment on above: Performed By: #### P T, PTT #### [facility] [address] [place] [address] Dr. Madisyn Bnetley INR GUIDELINES SEE BELOW Normal [facility] Comment on above: Result Comment: ROMY RED INR: 2.0 - 3.0 CONDITIONS NOT LISTED BELOW 2.5 - 3.5 FOR PROSTHETIC HEART VALVE REPLACEMENT 2.5 - 3.5 RECURRENT THROMBOSIS Performed By: #### P T, PTT #### [facility] [address] [place] [address] Dr. Madisyn Bentley PT Coag (PPP) [Time] 12.6 s Critically high 9.0-11.6 [facility] Comment on above: Performed By: #### P T, PTT #### [facility] [address] [place] [address] Dr. Madisyn Bentley PTTon 09-10-2022 aPTT Coag (Bld) [Time] 36.0 s Normal 22.3-36.2 [facility] Comment on above: Performed By: #### P T, PTT #### [facility] [address] [place] [address] Dr. Madisyn Bentley TROPONIN, HIGH SENSITIVITYon 09-10-2022 HSTROP 79.4 pg/mL Critically high 4.0-51.3 [facility] Comment on above: Result Comment: CUT- OFF POINTS HAVE BEEN ESTABLISHED BASED ON THE FOURTH UNIVERSAL DEFINITIONS OF MYOCARDIAL INFARCTION. THE UPPER REFERENCE LIMIT (URL) OF TROPONIN, DEFINED THE 99TH PERCENTILE OF cTnI DISTRIBUTION IN A REFERENCE POPULATION, HAS BEEN CONFIRMED THE DECISION THRESHOLD FOR WI DIAGNOSIS. Performed By: #### B ROOFER HELPER, HSTROPN #### [facility] [id number] Madisyn Bentley XR CHEST 1 Von [...] Kelli FLANNERY Date: 2022-09-10 04:58 Normal [facility] GLYCOHEMOGLOBIN A1Con 2021 ADA RECOMMENDATION SEE BELOW Normal [facility] Comment on above: Result Comment: ADA RECOMMENDED LIMIT 4.0 - 6.0 ADA THERAPEUTIC TARGET < 7.0 ACTION SUGGESTED > 7.0 Performed By: #### P T, PTT #### [facility] [address] [address] [address] Madisyn Bentley Glucose [Mass/Vol] 186 mg/dL Normal [facility] Comment on above: Performed By: #### P T, PTT #### [facility] [address] [address] [address] Madisyn Bentley HbA1c (Bld) [Mass fraction] 8.1 % Critically high 4.5-6.2 [facility] Comment on above: Performed By: #### P T, PTT #### [facility] [address] [address] [address] Madisyn Bentley US THYROIDon 05-24-2022 US [...] by: DIAMOND HILARIO Date: 2022-05-24 12:24 Normal [facility] MAMM SCREEN RT 3D CADon 1 MG MAMM SCREEN RT 3D CAD Patient: TRISHA PARISH Exam Date: 05/23/2022 : 1945 Gender:F Ordering : DR SANYA TINEO M.D. Admission #: [id number] Family : Order #: [id number] CLICK HERE TO VIEW EXAM RADIOLOGY REPORT [...] mastectomy and chemotherapy Family Cancers None LOCATION: [facility] BREAST COMPOSITION: Scattered areas fibroglandular density. [...] Hilario M.D. on 05/23/2022 at 10:38 Normal [facility] XR DEXA BONE DENSITYon 05-23 XR DEXA BONE DENSITY EXAMINATION: XR DEX A BONE DENSITY, 05/23/2022 8:54 AM EDT HISTORY: [...] by: DIAMOND HILARIO Date: 2022-05-23 19:25 Normal [facility] CBC AUTO DIFFon 05-16-2022 BASO # 0.0 103/ul Normal 0.0-0.1 [facility] Comment on above: Performed By: #### C BC #### [facility] [address] [address] [address] Madisyn Bentley Basophils/100 WBC (Bld) 0.4 % Normal 0.2-2.0 [facility] Comment on above: Performed By: #### C BC #### [facility] [address] [address] [address] Madisyn Bentley EO # 0.3 103/ul Normal 0.0-0.7 [facility] Comment on above: Performed By: #### C BC #### [facility] [address] [address] [address] Madisyn Bentley Eosinophils/100 WBC (Bld) 4.5 % Normal 0.9-7.0 [facility] Comment on above: Performed By: #### C BC #### [facility] [address] [place] [address] Dr. Madisyn Bentley Erythrocyte distribution width (RBC) [Ratio] 13.1 % Normal 11.0-15.0 [facility] Comment on above: Performed By: #### C BC #### [facility] [address] [place] [address] Dr. Madisyn Bentley Hematocrit (Bld) [Volume fraction] 37.9 % Normal 36.0-48.0 [facility] Comment on above: Performed By: #### C BC #### [facility] [address] [place] [address] Dr. Madisyn Bentley Hemoglobin (Bld) [Mass/Vol] 12.4 g/dL Normal 12.0-16.0 [facility] Comment on above: Performed By: #### C BC #### [facility] [address] [place] [address] Dr. Madisyn Bentley IG # 0.02 10e3/ul Normal 0.00-0.03 [facility] Comment on above: Performed By: #### C BC #### [facility] [address] [place] [address] Dr. Madisyn Bentley IG % 0.3 % Normal 0.0-0.5 [facility] Comment on above: Performed By: #### C BC #### [facility] [address] [place] [address] Dr. Madisyn Bentley LYMPH # 1.6 103/ul Normal 1.2-3.8 [facility] Comment on above: Performed By: #### C BC #### [facility] [address] [place] [address] Dr. Madisyn Bentley Lymphocytes/100 WBC (Bld) 22.0 % Normal 20.5-60.0 [facility] Comment on above: Performed By: #### C BC #### [facility] [address] [place] [address] Dr. Madisyn Bentley MANUAL DIFF REQ NO Normal [facility] Comment on above: Performed By: #### C BC #### [facility] [address] [place] [address] Dr. Madisyn Bentley MCH (RBC) [Entitic mass] 29.4 pg Normal 26.7-34.0 [facility] Comment on above: Performed By: #### C BC #### [facility] [address] [place] [address] Dr. Madisyn Bentley MCHC (RBC) [Mass/Vol] 32.7 g/dL Normal 29.9-35.2 [facility] Comment on above: Performed By: #### C BC #### [facility] [address] [place] [address] Dr. Madisyn Bentley MCV (RBC) [Entitic vol] 89.8 fL Normal 81.0-99.0 [facility] Comment on above: Performed By: #### C BC #### [facility] [address] [place] [address] Dr. Madisny Bentley MONO # 0.5 103/ul Normal 0.3-0.8 [facility] Comment on above: Performed By: #### C BC #### [facility] [address] [place] [address] Dr. Madisyn Bentley Monocytes/100 WBC (Bld) 7.3 % Normal 1.7-12.0 [facility] Comment on above: Performed By: #### C BC #### [facility] [address] [place] [address] Dr. Madisyn Bentley NEUT # 4.9 103/ul Normal 1.4-6.5 [facility] Comment on above: Performed By: #### C BC #### [facility] [address] [place] [address] Dr. Madisyn Bentley Neutrophils/100 WBC (Bld) 65.5 % Normal 43.0-75.0 [facility] Comment on above: Performed By: #### C BC #### [facility] [address] [place] [address] Dr. Madisyn Bentley Platelet mean volume (Bld) [Entitic vol] 12.1 fL Normal 9.5-13.5 [facility] Comment on above: Performed By: #### C BC #### [facility] [address] [address] [address] Madisyn Bentley PLT 171 103/ul Normal 150-450 [facility] Comment on above: Performed By: #### C BC #### [facility] [address] [address] [address] Madisyn Bentley RBC 4.22 106/ul Normal 4.20-5.40 [facility] Comment on above: Performed By: #### C BC #### [facility] [address] [place] [address] Dr. Madisyn Bentley WBC 7.4 103/ul Normal 4.0-11.0 [facility] Comment on above: Performed By: #### C BC #### [facility] [address] [place] [address] Dr. Madisyn Bentley LIPID PROFILEon 05-16-2022 CHOL-HDL RATIO NORM SEE BELOW Normal [facility] Comment on above: Result Comment: 3.3 - 4.4 LOW RISK 4.4 - 7.1 AVERAGE RISK 7.1 - 11.0 MODERATE RISK >11.0 HIGH RISK Performed By: #### P T, PTT #### [facility] [address] [place] [address] Dr. Madisyn Bentley Cholesterol [Mass/Vol] 132 mg/dL Normal <=200 [facility] Comment on above: Performed By: #### P T, PTT #### [facility] [address] [place] [address] Dr. Madisyn Bentley Cholesterol in HDL [Mass/Vol] 44 mg/dL Normal 40-60 [facility] Comment on above: Performed By: #### P T, PTT #### [facility] [address] [place] [address] Dr. Madisyn Bentley Cholesterol in LDL [Mass/Vol] 59.6 mg/dL Normal [facility] Comment on above: Performed By: #### P T, PTT #### [facility] [address] [place] [address] Dr. Madisyn Bentley Cholesterol.total/Choles terol in HDL [Mass ratio] 3.0 {ratio} Normal [facility] Comment on above: Performed By: #### P T, PTT #### [facility] [address] [address] [address] Madisyn Bentley HDL NORMAL > or = 60 mg/dl - LO W CARDIOVASCULAR RISK <40 mg/dl - HIGH CARDIOVASCULAR RISK Normal [facility] Comment on above: Performed By: #### P T, PTT #### [facility] [address] [address] [address] Madisyn Bentley LDL CALC NORMAL SEE BELOW Normal [facility] Comment on above: Result Comment: <100 mg/dl OPTIMAL 100 - 129 mg/dl NEAR OR ABOVE OPTIMAL 130 - 159 mg/dl BORDERLINE HIGH 160 - 189 mg/dl HIGH >190 mg/dl VERY HIGH Performed By: #### P T, PTT #### [facility] [address] [place] [address] Dr. Madisyn Bentley Triglyceride [Mass/Vol] 142 mg/dL Normal <=150 T [facility] Comment on above: Performed By: #### P T, PTT #### [facility] [address] [place] [address] Dr. Madisyn Bentley VLDL CALC 28.4 mg/dL Normal [facility] Comment on above: Performed By: #### P T, PTT #### [facility] [address] [place] [address] Dr. Madisyn Bentley PROF 14(COMP METB)on 022 Albumin [Mass/Vol] 3.8 g/dL Normal 3.4-5.0 [facility] Comment on above: Performed By: #### P T, PTT #### [facility] [address] [place] [address] Dr. Madisyn Bentley Albumin/Globulin [Mass ratio] 1.1 {ratio} Normal [facility] Comment on above: Performed By: #### P T, PTT #### [facility] [address] [place] [address] Dr. Madisyn Bentley ALP [Catalytic activity/Vol] 158 U/L Critically high 46-116 [facility] Comment on above: Performed By: #### P T, PTT #### [facility] [address] [address] [address] Madisyn Bentley ALT [Catalytic activity/Vol] 24 U/L Normal 14-59 [facility] Comment on above: Performed By: #### P T, PTT #### [facility] [address] [place] [address] Dr. Madisyn Bentley Anion gap [Moles/Vol] 14.1 mmol/L Normal Th e [facility] Comment on above: Performed By: #### P T, PTT #### [facility] [address] [address] [address] Madisyn Bentley AST [Catalytic activity/Vol] 12 U/L Critically low 15-37 [facility] Comment on above: Performed By: #### P T, PTT #### [facility] [address] [place] [address] Dr. Madisyn Bentley Bilirubin [Mass/Vol] 0.7 mg/dL Normal 0.2-1.0 [facility] Comment on above: Performed By: #### P T, PTT #### [facility] [address] [place] [address] Dr. Madisyn Bentley Calcium [Mass/Vol] 8.9 mg/dL Normal 8.5-10.1 [facility] Comment on above: Performed By: #### P T, PTT #### [facility] [address] [place] [address] Dr. Madisyn Bentley Chloride [Moles/Vol] 105 mmol/L Normal 98-107 [facility] Comment on above: Performed By: #### P T, PTT #### [facility] [address] [place] [address] Dr. Madisyn Bentley CO2 [Moles/Vol] 23.4 mmol/L Normal 21.0-32.0 [facility] Comment on above: Performed By: #### P T, PTT #### [facility] [address] [place] [address] Dr. Madisyn Bentley Creatinine [Mass/Vol] 1.64 mg/dL Critically high 0.55-1.02 [facility] Comment on above: Performed By: #### P T, PTT #### [facility] [address] [address] [address] Madisyn Bentley EGFR-AF URUGUAYAN 37 mL/min/1.73m2 Critically low >=60 [facility] Comment on above: Performed By: #### P T, PTT #### [facility] [address] [address] [address] Madisyn Bentley EGFR-NON AF URUGUAYAN 30 mL/min/1.73m2 Critically low >=60 [facility] Comment on above: Performed By: #### P T, PTT #### [facility] [address] [address] [address] Madisyn Bentley Globulin (S) [Mass/Vol] 3.5 g/dL Normal [facility] Comment on above: Performed By: #### P T, PTT #### [facility] [address] [place] [address] Dr. Madisyn Bentley Glucose [Mass/Vol] 222 mg/dL Critically high 74-106 T [facility] Comment on above: Performed By: #### P T, PTT #### [facility] [address] [place] [address] Dr. Madisyn Bentley Potassium [Moles/Vol] 4.5 mmol/L Normal 3.5-5.1 [facility] Comment on above: Performed By: #### P T, PTT #### [facility] [address] [place] [address] Dr. Madisyn Bentley Protein [Mass/Vol] 7.3 g/dL Normal 6.4-8.2 [facility] Comment on above: Performed By: #### P T, PTT #### [facility] [address] [place] [address] Dr. Madisyn Bentley Sodium [Moles/Vol] 138 mmol/L Normal 136-145 [facility] Comment on above: Performed By: #### P T, PTT #### [facility] [address] [place] [address] Dr. Madisyn Bentley Urea nitrogen [Mass/Vol] 35.0 mg/dL Critically high 7.0-18 .0 [facility] Comment on above: Performed By: #### P T, PTT #### [facility] [address] [address] [address] Madisyn Bentley Urea nitrogen/Creatinine [Mass ratio] 21.3 mg/mg Normal [facility] Comment on above: Performed By: #### P T, PTT #### [facility] [address] [address] [address] Madisyn Bentley RENAL FUNCTION PANELon 04-07 Albumin [Mass/Vol] 3.5 g/dL Normal 3.4-5.0 [facility] Comment on above: Performed By: #### R ENAL #### [facility] [address] [address] [address] Madisyn Bentley Calcium [Mass/Vol] 8.1 mg/dL Critically low 8.5-10.1 [facility] Comment on above: Performed By: #### R ENAL #### [facility] [address] [address] [address] Madisyn Bentley Chloride [Moles/Vol] 110 mmol/L Critically high 98-107 [facility] Comment on above: Performed By: #### R ENAL #### [facility] [address] [address] [address] Madisyn Bentley CO2 [Moles/Vol] 20.2 mmol/L Critically low 21.0-32.0 [facility] Comment on above: Performed By: #### R ENAL #### [facility] [address] [address] [address] Madisyn Bentley Creatinine [Mass/Vol] 1.89 mg/dL Critically high 0.55-1.02 [facility] Comment on above: Performed By: #### R ENAL #### [facility] [address] [address] [address] Madisyn Bentley EGFR-AF URUGUAYAN 31 mL/min/1.73m2 Critically low >=60 [facility] Comment on above: Performed By: #### R ENAL #### [facility] [address] [address] [address] Madisyn Bentley EGFR-NON AF URUGUAYAN 26 mL/min/1.73m2 Critically low >=60 [facility] Comment on above: Performed By: #### R ENAL #### [facility] [address] [address] [address] Madisyn Bentley Glucose [Mass/Vol] 149 mg/dL Critically high 74-106 T [facility] Comment on above: Performed By: #### R ENAL #### [facility] [address] [address] [address] Madisyn Bentley Phosphate [Mass/Vol] 3.4 mg/dL Normal 2.6-4.7 [facility] Comment on above: Performed By: #### R ENAL #### [facility] [address] [address] [address] Madisyn Bentley Potassium [Moles/Vol] 4.5 mmol/L Normal 3.5-5.1 [facility] Comment on above: Performed By: #### R ENAL #### [facility] [address] [place] [address] Dr. Madisyn Bentley Sodium [Moles/Vol] 141 mmol/L Normal 136-145 [facility] Comment on above: Performed By: #### R ENAL #### [facility] [address] [address] [address] Madisyn Bentley Urea nitrogen [Mass/Vol] 34.0 mg/dL Critically high 7.0-18 .0 [facility] Comment on above: Performed By: #### R ENAL #### [facility] [address] [place] [address] Dr. Madisyn Bentley UA RANDOMon 04-07-2022 Bilirubin Ql (U) Negative Normal NEGATIVE [facility] Comment on above: Performed By: #### U A #### [facility] [address] [address] [address] Madisyn Bentley Clarity (U) CLEAR Normal CLEAR [facility] Comment on above: Performed By: #### U A #### [facility] [address] [place] [address] Dr. Madisyn Bentley Color (U) LT. YELLOW Normal YELLOW [facility] Comment on above: Performed By: #### U A #### [facility] [address] [place] [address] Dr. Madisyn Bentley Glucose Ql (U) Negative Normal NEGATIVE [facility] Comment on above: Performed By: #### U A #### [facility] [address] [place] [address] Dr. Madisyn Bentley Hemoglobin Ql (U) Negative Normal NEGATIVE [facility] Comment on above: Performed By: #### U A #### [facility] [address] [place] [address] Dr. Madisyn Bentley Ketones Ql (U) Negative Normal NEGATIVE [facility] Comment on above: Performed By: #### U A #### [facility] [address] [place] [address] Dr. Madisyn Bentley LEUKOCYTES TRACE Abnormal NEGATIVE [facility] Comment on above: Performed By: #### U A #### [facility] [address] [place] [address] Dr. Madisyn Bentley Nitrite Ql (U) Negative Normal NEGATIVE [facility] Comment on above: Performed By: #### U A #### [facility] [address] [place] [address] Dr. Madisyn Bentley pH (U) 5.5 [pH] Normal 5-9 [facility] Comment on above: Performed By: #### U A #### [facility] [address] [place] [address] Dr. Madisyn Bentley SPEC GRAVITY 1.020 Normal 1.005-<=1. 025 [facility] Comment on above: Performed By: #### U A #### [facility] [address] [place] [address] Dr. Madisyn Bentley UA PROTEIN Negative Normal NEGATIVE/ TRACE [facility] Comment on above: Performed By: #### U A #### [facility] [address] [place] [address] Dr. Madisyn Bentley Urobilinogen Qn (U) 0.2 {Luis Eduardo'U}/dL Normal 0.2 - 1. 0 [facility] Comment on above: Performed By: #### U A #### [facility] [address] [place] [address] Dr. Madisyn Bentley URINE T PROTEIN CREAT RATIOo n 04-07-2022 Protein (U) [Mass/Vol] 25.7 mg/dL Critically high <=12.0 [facility] Comment on above: Performed By: #### P T, PTT #### [facility] [address] [place] [address] Dr. Madisyn Bentley UR PROT CREAT RAT 0.29 Normal [facility] Comment on above: Performed By: #### P T, PTT #### [facility] [address] [place] [address] Dr. Madisyn Bentley URINE CREAT 89.48 mg/dL Normal 20.00-300. 00 [facility] Comment on above: Performed By: #### P T, PTT #### [facility] [address] [place] [address] Dr. Madisyn Bentley RENAL FUNCTION PANELon 11-25 Albumin [Mass/Vol] 3.7 g/dL Normal 3.4-5.0 [facility] Comment on above: Performed By: #### R ENAL #### [facility] [address] [place] [address] Dr. Madisyn Bentley Calcium [Mass/Vol] 8.6 mg/dL Normal 8.5-10.1 [facility] Comment on above: Performed By: #### R ENAL #### [facility] [address] [place] [address] Dr. Madisyn Bentley Chloride [Moles/Vol] 107 mmol/L Normal 98-107 [facility] Comment on above: Performed By: #### R ENAL #### [facility] [address] [place] [address] Dr. Madisyn Bentley CO2 [Moles/Vol] 23.3 mmol/L Normal 22.0-30.0 [facility] Comment on above: Performed By: #### R ENAL #### [facility] [address] [place] [address] Dr. Mdaisyn Bentley Creatinine [Mass/Vol] 1.56 mg/dL Critically high 0.55-1.02 [facility] Comment on above: Performed By: #### R ENAL #### [facility] [address] [address] [address] Madisyn Bentley EGFR-AF URUGUAYAN 39 mL/min/1.73m2 Critically low >=60 [facility] Comment on above: Performed By: #### R ENAL #### [facility] [address] [address] [address] Madisyn Bentley EGFR-NON AF URUGUAYAN 32 mL/min/1.73m2 Critically low >=60 [facility] Comment on above: Performed By: #### R ENAL #### [facility] [address] [address] [address] Madisyn Bentley Glucose [Mass/Vol] 106 mg/dL Normal 74-106 [facility] Comment on above: Performed By: #### R ENAL #### [facility] [address] [address] [address] Madisyn Bentley Phosphate [Mass/Vol] 3.8 mg/dL Normal 2.5-4.5 [facility] Comment on above: Performed By: #### R ENAL #### [facility] [address] [address] [address] Madisyn Bentley Potassium [Moles/Vol] 4.5 mmol/L Normal 3.4-5.0 [facility] Comment on above: Performed By: #### R ENAL #### [facility] [address] [place] [address] Dr. Madisyn Bentley Sodium [Moles/Vol] 141 mmol/L Normal 137-145 [facility] Comment on above: Performed By: #### R ENAL #### [facility] [address] [address] [address] Madisyn Bentley Urea nitrogen [Mass/Vol] 27.0 mg/dL Critically high 7.0-18 .0 [facility] Comment on above: Performed By: #### R ENAL #### [facility] [address] [address] [address] Madisyn Bentley UA RANDOMon 11-25-2021 Bilirubin Ql (U) Negative Normal NEGATIVE [facility] Comment on above: Performed By: #### P T, PTT #### [facility] [address] [place] [address] Dr. Madisyn Bentley Clarity (U) CLEAR Normal CLEAR [facility] Comment on above: Performed By: #### P T, PTT #### [facility] [address] [place] [address] Dr. Madisyn Bentley Color (U) LT. YELLOW Normal YELLOW [facility] Comment on above: Performed By: #### P T, PTT #### [facility] [address] [place] [address] Dr. Madisyn Bentley Glucose Ql (U) Negative Normal NEGATIVE [facility] Comment on above: Performed By: #### P T, PTT #### [facility] [address] [place] [address] Dr. Madisyn Bentley Hemoglobin Ql (U) Negative Normal NEGATIVE [facility] Comment on above: Performed By: #### P T, PTT #### [facility] [address] [place] [address] Dr. Madisyn Bentley Ketones Ql (U) Negative Normal NEGATIVE [facility] Comment on above: Performed By: #### P T, PTT #### [facility] [address] [place] [address] Dr. Madisyn Bentley LEUKOCYTES Negative Normal NEGATIVE [facility] Comment on above: Performed By: #### P T, PTT #### [facility] [address] [place] [address] Dr. Madisyn Bentley Nitrite Ql (U) Negative Normal NEGATIVE [facility] Comment on above: Performed By: #### P T, PTT #### [facility] [address] [place] [address] Dr. Madisyn Bentley pH (U) 5.5 [pH] Normal 5-9 [facility] Comment on above: Performed By: #### P T, PTT #### [facility] [address] [place] [address] Dr. Madisyn Bentlye SPEC GRAVITY 1.015 Normal 1.005-<=1. 025 [facility] Comment on above: Performed By: #### P T, PTT #### [facility] [address] [place] [address] Dr. Madisyn Bentley UA PROTEIN Negative Normal NEGATIVE/ TRACE [facility] Comment on above: Performed By: #### P T, PTT #### [facility] [address] [place] [address] Dr. Madisyn Bentley Urobilinogen Qn (U) 0.2 {Luis Eduardo'U}/dL Normal 0.2 - 1. 0 [facility] Comment on above: Performed By: #### P T, PTT #### [facility] [address] [place] [address] Dr. Madisyn Bentley URINE T PROTEIN CREAT RATIOo n 11-25-2021 Protein (U) [Mass/Vol] 20.5 mg/dL Critically high <=12.0 [facility] Comment on above: Performed By: #### U RTPCR #### [facility] [address] [place] [address] Dr. Madisyn Bentley UR PROT CREAT RAT 0.25 Normal [facility] Comment on above: Performed By: #### U RTPCR #### [facility] [address] [place] [address] Dr. Madisyn Bentley URINE CREAT 81.12 mg/dL Normal 20.00-300. 00 [facility] Comment on above: Performed By: #### U RTPCR #### [facility] [address] [place] [address] Dr. Madisyn Bentley CYTOLOGYon 06-21-2021 CYTOLOGY Specimen #: [id number] Submitting Physician: ABNER WHEELER MD SPECIMEN [...] EYE, VITREOUS FINE NEEDLE ASPIRATE THIN PREP Non-Engineering Drawings Checker Date of Report: 06/22/2021 Date of Procedure: 06/21/2021 Date of Receipt: 06/22/2021 Submitted by: ABNER WHEELER MD Location: Diagnostic interpretation performed at [facility], [address] [place] [address]. CLIA Number: [id number] Normal [facility] Comment on above: Performed By: #### C #### See report for performing lab information. CNOVSPon 04-15-2018 CNOVSP Visit (SP) Office (HEMACL) JEMTRISHA ([id number]) 1945 [facility] Time Provider Department04/15/18 2:15 PM ROXANN ONEAL HEMACL During your visit today, we recorded the following information about you: Temperature Pulse Respiration Blood pressure 98.2 degrees 66/minute 16/minute 147/69 Weight Height 80.9 kg 1.626 mMINDY OLIVE ONEAL PA-C 04/15/2018 3:44 PM SignedPatient: Trisha Parish [facility] 1945 Attending Physician: Dr. Sadi Nolan: April [...] of lymph node dissection. 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 Ultimately the patient had to [...] questions or concernsJORDON SHAY-CReferring Provider: SADI WALLACE [[id number]]Allergies As of Date: 04/15/2018(No Known Allergies)Date Reviewed: 04/15/2018Reviewed by: Roxann Oneal - Fully AssessedReason for Visit: Breast Cancer [519] Cmt: follow upPrimary Visit Diagnosis:Malignant neoplasm of left breast in female, estrogen receptor positive, unspecified site of breast (HCC) [C50.912, Z17.0]Order(s):[facility] RT [[id number]] Order #: [id number] FUTUREDisposition: Return in about 1 year (around [...] Status:Closed by ROXANN ONEAL on 04/15/18 Normal [facility] PROGRESSon 04-15-2018 Protein mass conc HNO ID: [id number] thor: Roxann Smithervice: (none)Author Type: Physician AssistantType: Progress NotesFiled: 04/15/2018 3:44 PMNote Text:Patient: Trisha Parish [facility] 1945 [facility]ending [facility]: Dr. Sadi Sotoate: [...] time of lymph node dissection. The tumor wasER/MT positive, HER-2 positve. Ultimately the patient had [...] with questions or concernsROXANN ONEAL PA-C Normal [facility] MAMM OUTSIDE DICOM IMPORT -N BNRon 04-05-2018 MAMM OUTSIDE DICOM IMPORT -NBNR Images were obtained outside of [facility] [id number] Normal [facility] Vital Signs Date Time Vital Sign Value Performing Clinician Faci ellay 02-29-2024 11:03-0400 Body temperature 97.9 [degF] MD Sanya Tineo Work Phone: [facility] 02-29-2024 11:03-0400 Body weight 56.24 kg MD Sanya Tineo Work Phone: [facility] 02-29-2024 11:03-0400 Diastolic blood pressure 73 mm[Hg] MD Sanya Tineo Work Phone: [facility] 02-29-2024 11:03-0400 Heart rate 75 /min MD Sanya Tineo Work Phone: [facility] 02-29-2024 11:03-0400 Respiratory rate 16 /min MD Sanya Tineo Work Phone: [facility] 02-29-2024 11:03-0400 SaO2% (BldA) [Mass fraction] 99 % MD Sanya Tineo Work Phone: [facility] 02-29-2024 11:03-0400 Systolic blood pressure 132 mm[Hg] MD Sanya Tineo Work Phone: [facility] 02-18-2024 11:00-0400 Body height 152.4 cm MD Sanya Tineo Work Phone: [facility] 02-18-2024 11:00-0400 Body mass index (BMI) [Ratio] 25.4 kg/m2 MD Sanya Tineo Work Phone: [facility] 02-18-2024 11:00-0400 Body weight 58.96 kg MD Sanya Tineo Work Phone: [facility] 02-18-2024 11:00-0400 Diastolic blood pressure 62 mm[Hg] MD Sanya Tineo Work Phone: [facility] 02-18-2024 11:00-0400 Heart rate 72 /min MD Sanya Tineo Work Phone: [facility] 02-18-2024 11:00-0400 Systolic blood pressure 122 mm[Hg] MD Sanya Tineo Work Phone: [facility] 02-01-2024 10:13-0400 Body height 152.4 cm MD Sanya Tineo Work Phone: [facility] 02-01-2024 10:13-0400 Body mass index (BMI) [Ratio] 24 kg/m2 MD Sanya Tineo Work Phone: [facility] 02-01-2024 10:13-0400 Body temperature 97.6 [degF] MD Sanya Tineo Work Phone: [facility] 02-01-2024 10:130400 Body weight 55.79 kg MD Sanya Tineo Work Phone: [facility] 02-01-2024 10:13-0400 Diastolic blood pressure 39 mm[Hg] MD Sanya Tineo Work Phone: [facility] 02-01-2024 10:13-0400 Heart rate 78 /min MD Sanya Tineo Work Phone: [facility] 02-01-2024 10:13-0400 Respiratory rate 20 /min MD Sanya Tineo Work Phone: [facility] 02-01-2024 10:13-0400 SaO2% (BldA) [Mass fraction] 98 % MD Sanya Tineo Work Phone: [facility] 02-01-2024 10:13-0400 Systolic blood pressure 80 mm[Hg] MD Sanya Tineo Work Phone: [facility] 01-28-2024 14:58-0400 Body height 152.4 cm MD Sanya Tineo Work Phone: [facility] 01-28-2024 14:58-0400 Body mass index (BMI) [Ratio] 24 kg/m2 MD Sanya Tineo Work Phone: [facility] 01-28-2024 14:58-0400 Body temperature 97.9 [degF] MD Sanya Tineo Work Phone: [facility] 01-28-2024 14:58-0400 Body weight 56 kg MD Sanya Tineo Work Phone: [facility] 01-28-2024 14:58-0400 Diastolic blood pressure 68 mm[Hg] MD Sanya Tineo Work Phone: [facility] 01-28-2024 14:58-0400 Heart rate 74 /min MD Snaya Tineo Work Phone: [facility] 01-28-2024 14:58-0400 Systolic blood pressure 116 mm[Hg] MD Sanya Tineo Work Phone: [facility] 01-17-2024 14:18-0400 Body temperature 97.8 [degF] MD Sanya Tineo Work Phone: [facility] 01-17-2024 14:18-0400 Body weight 56.69 kg MD Sanya Tineo Work Phone: [facility] 01-17-2024 14:18-0400 Diastolic blood pressure 61 mm[Hg] MD Sanya Tineo Work Phone: [facility] 01-17-2024 14:18-0400 Heart rate 73 /min MD Sanya Tineo Work Phone: [facility] 01-17-2024 14:18-0400 Respiratory rate 16 /min MD Sanya Tineo Work Phone: [facility] 01-17-2024 14:18-0400 SaO2% (BldA) [Mass fraction] 98 % MD Sanya Tineo Work Phone: [facility] 01-17-2024 14:18-0400 Systolic blood pressure 106 mm[Hg] MD Sanya Tineo Work Phone: [facility] 01-03-2024 12:55-0400 Body height 157.5 cm Edwardo Hanna MD Work Phone: [facility] 01-03-2024 12:55-0400 Body mass index (BMI) [Ratio] 23.3 kg/m2 Edwardo Hanna MD Work Phone: [facility] 01-03-2024 12:55-0400 Body temperature 97 [degF] Edwardo Hanna MD Work Phone: [facility] 01-03-2024 12:55-0400 Body weight 57.8 kg Edwardo Hanna MD Work Phone: [facility] 01-03-2024 12:55-0400 Diastolic blood pressure 46 mm[Hg] Edwardo Hanna MD Work Phone: [facility] 01-03-2024 12:55-0400 Heart rate 69 /min Edwardo Hanna MD Work Phone: [facility] 01-03-2024 12:55-0400 Respiratory rate 20 /min Edwardo Hanna MD Work Phone: [facility] 01-03-2024 12:55-0400 SaO2% (BldA) [Mass fraction] 99 % Edwardo Hanna MD Work Phone: [facility] 01-03-2024 12:55-0400 Systolic blood pressure 108 mm[Hg] Edwardo Hanna MD Work Phone: [facility] 12-20-2023 15:09-0400 Body temperature 98.4 [degF] Smooth Coelho MD Work Phone: [facility] 12-20-2023 15:09-0400 Diastolic blood pressure 78 mm[Hg] Smooth Coelho MD Work Phone: [facility] 12-20-2023 15:09-0400 Heart rate 73 /min Smooth Coelho MD Work Phone: [facility] 12-20-2023 15:09-0400 Respiratory rate 18 /min Smooth Coelho MD Work Phone: [facility] 12-20-2023 15:09-0400 SaO2% (BldA) [Mass fraction] 97 % Smooth Coelho MD Work Phone: [facility] 12-20-2023 15:09-0400 Systolic blood pressure 142 mm[Hg] Smooth Coelho MD Work Phone: [facility] 12-20-2023 11:15-0400 Body height 162.6 cm Smooth Coelho MD Work Phone: [facility] 12-20-2023 11:15-0400 Body mass index (BMI) [Ratio] 24.03 kg/m2 Smooth Coelho MD Work Phone: [facility] 12-20-2023 11:15-0400 Body weight 63.5 kg Smooth Coelho MD Work Phone: [facility] 12-05-2023 10:04-0400 Body height 153.67 cm MD Sanya Tineo Work Phone: [facility] 12-05-2023 10:04-0400 Body mass index (BMI) [Ratio] 25.8 kg/m2 MD Sanya Tineo Work Phone: [facility] 12-05-2023 10:04-0400 Body weight 61 kg MD Sanya Tineo Work Phone: [facility] 12-05-2023 10:04-0400 Diastolic blood pressure 54 mm[Hg] MD Sanya Tineo Work Phone: [facility] 12-05-2023 10:04-0400 Heart rate 69 /min MD Sanya Tineo Work Phone: [facility] 12-05-2023 10:04-0400 Systolic blood pressure 89 mm[Hg] MD Sanya Tnieo Work Phone: [facility] 07-17-2023 11:00-0500 Body height 153.67 cm Sanya Tineo Other [facility] [employer] Other 07-17-2023 11:00-0500 Body mass index (BMI) [Ratio] 28.5 kg/m2 Sanya Tineo Other [facility] [employer] Other 07-17-2023 11:00-0500 Body weight 67.31 kg Sanya Tineo Other [facility] [employer] Other 07-17-2023 11:00-0500 Diastolic blood pressure 65 mm[Hg] Sanya Tineo Other [employer] Other 07-17-2023 11:00-0500 Systolic blood pressure 121 mm[Hg] Sanya Tineo Other [employer] Other 05-11-2023 11:30-0400 Body height 153.67 cm Sanya Tineo Other [employer] Other 05-11-2023 11:30-0400 Body mass index (BMI) [Ratio] 27.27 kg/m2 Sanya Tineo Other [employer] Other 05-11-2023 11:30-0400 Body weight 64.41 kg Sanya Tineo Other [employer] Other 05-11-2023 11:30-0400 Diastolic blood pressure 61 mm[Hg] Sanya Tineo Other [employer] Other 05-11-2023 11:30-0400 SaO2% (BldA) [Mass fraction] 97 % Sanya Tineo Other [employer] Other 05-11-2023 11:30-0400 Systolic blood pressure 107 mm[Hg] Sanya Tineo Other [employer] Other 04-17-2023 10:45-0400 Body height 153.67 cm Sanya Tineo Other [employer] Other 04-17-2023 10:45-0400 Body mass index (BMI) [Ratio] 27.89 kg/m2 Sanya Tineo Other [employer] Other 04-17-2023 10:45-0400 Body weight 65.86 kg Sanya Tineo Other [employer] Other 04-17-2023 10:45-0400 Diastolic blood pressure 72 mm[Hg] Sanya Tineo Other [employer] Other 04-17-2023 10:45-0400 Respiratory rate 12 /min Sanya Tineo Other [employer] Other 04-17-2023 10:45-0400 Systolic blood pressure 133 mm[Hg] Sanya Tineo Other [employer] Other 02-09-2023 11:00-0400 Body height 153.67 cm Sanya Tineo Other [employer] Other 02-09-2023 11:00-0400 Body mass index (BMI) [Ratio] 27.47 kg/m2 Sanya Tineo Other [employer] Other 02-09-2023 11:00-0400 Body weight 64.86 kg Sanya Tineo Other [employer] Other 02-09-2023 11:00-0400 Diastolic blood pressure 62 mm[Hg] Sanya Tineo Other [employer] Other 02-09-2023 11:00-0400 SaO2% (BldA) [Mass fraction] 98 % Sanya Tineo Other [employer] Other 02-09-2023 11:00-0400 Systolic blood pressure 125 mm[Hg] Sanya Tineo Other [employer] Other 09-08-2022 11:30-0500 Body height 153.67 cm Sanya Tineo Other [employer] Other 09-08-2022 11:30-0500 Body mass index (BMI) [Ratio] 29.77 kg/m2 Sanya Tineo Other [employer] [facility] [employer] Other 09-08-2022 11:30-0500 Body weight 70.31 kg Sanya Tineo Other [employer] Other 09-08-2022 11:30-0500 Diastolic blood pressure 58 mm[Hg] Sanya Tineo Other [employer] Other 09-08-2022 11:30-0500 SaO2% (BldA) [Mass fraction] 97 % Sanya Tineo Other [employer] Other 09-08-2022 11:30-0500 Systolic blood pressure 110 mm[Hg] Sanya Tineo Other [facility] [employer] Other Encounters Encounter Date Encounter Type Care Provider Facility Start: 03-04-2024 End: 03-04-2024 ambulatory MD Sanya Tineo Work Phone: [facility] Work Phone: Start: 03-04-2024 End: 03-04-2024 Patient encounter procedure MD Sanya Tineo Work Phone: [facility] Work Phone: Start: 02-29-2024 ambulatory Keyla Lua Facility:[facility] Start: 02-29-2024 Registered Recurring MD Sanya Tineo Work Phone: [facility] Work Phone: Start: 02-29-2024 End: 02-29-2024 ambulatory MD Sanya Tineo Work Phone: [facility] Work Phone: Start: 02-29-2024 End: 02-29-2024 Patient encounter procedure MD Sanya Tineo Work Phone: [facility] Work Phone: Start: 02-29-2024 Registered Recurring MD [facility] Work [facility] Start: 02-20-2024 End: 02-20-2024 ambulatory [facility] Start: 02-18-2024 End: 02-18-2024 ambulatory MD Sanya Tineo Work Phone: [facility] Work Phone: Start: 02-18-2024 End: 02-18-2024 Patient encounter procedure MD Sanya Tineo Work Phone: [facility] Work Phone: Start: 02-12-2024 Non-patient / Non-visit MD Geno Tineo Work Phone: [facility] Work Phone: Start: 02-11-2024 Non-patient / Non-visit MD Geno Tineo Work Phone: [facility] Work Phone: Start: 02-10-2024 Non-patient / Non-visit MD Geno Tineo Work Phone: [facility] Work Phone: Start: 02-01-2024 Registered Recurring MD Sanya Tinoe [facility] Work [facility]: Start: 02-01-2024 End: 02-01-2024 ambulatory MD Sanya Tineo Work Phone: [facility] Work Phone: Start: 02-01-2024 End: 02-01-2024 Patient encounter procedure MD Sanya Tineo Work Phone: [facility] Work Phone: Start: 01-28-2024 End: 01-28-2024 ambulatory MD Sanya Tineo Work Phone: [facility] Work Phone: Start: 01-28-2024 End: 01-28-2024 Patient encounter procedure MD Sanya Tineo Work Phone: [facility] Physician [facility] Work Phone: Start: 01-17-2024 End: 01-17-2024 ambulatory MD Sanya Tineo Work Phone: [facility] Work Phone: Start: 01-17-2024 End: 01-17-2024 Patient encounter procedure MD Sanya Tineo Work Phone: [facility] Work Phone: Start: 01-17-2024 Registered Recurring MD Sanya Tineo Work Phone: [facility] Work Phone: Start: 01-14-2024 Non-patient / Non-visit MD Geno Tineo Work Phone: [facility] Work Phone: Start: 01-07-2024 End: 01-07-2024 Subsequent hospital visit by physician [facility] Comment on above: Cardiac pacemaker in situ; Atrioventricular block, second degree Start: 01-07-2024 End: 01-07-2024 ambulatory SHANON MARTÍNEZ [facility] Start: 01-03-2024 End: 01-03-2024 ambulatory SANYA TINEO [facility] Start: 01-03-2024 End: 01-03-2024 Office outpatient new 60 minutes Edwardo Hanna MD Work Phone: [facility] Comment on above: 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 (Multi) (Primary Dx); GI cancer (Multi); 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); Gastrointestinal complication of procedure Start: 01-03-2024 End: 01-03-2024 ambulatory [facility] Start: 01-01-2024 Non-patient / Non-visit MD Geno Tineo Work Phone: [facility] Work Phone: Start: 12-20-2023 End: 12-20-2023 Subsequent hospital visit by physician Smooth Coelho MD Work Phone: [facility] Comment on above: Abdominal pain, unsp ecified abdominal location (Primary Dx); Abnormal CT scan; Elevated lipase Start: 12-20-2023 End: 12-20-2023 ambulatory SMOOTH COELHO [facility] Start: 12-06-2023 Non-patient / Non-visit MD Geno Tineo Work Phone: [facility] Work Phone: Start: 12-05-2023 End: 12-05-2023 Patient encounter procedure MD Sanya Tineo Work Phone: [facility] Work Phone: Start: 12-02-2023 Non-patient / Non-visit MD Geno Tineo Work Phone: [facility] Work Phone: Start: 11-30-2023 End: 11-30-2023 ambulatory [facility] Start: 10-19-2023 End: 10-19-2023 ambulatory DIRK ONEILL Not Available Start: 10-03-2023 End: 10-03-2023 ambulatory JENNIFER Jhon NATALIEASHLEYAriana Not Available Start: 08-28-2023 End: 08-28-2023 ambulatory DIRK ONEILL Not Available Start: 08-28-2023 End: 08-28-2023 Patient encounter procedure Dirk Oneill DO Work Phone: [facility] Comment on above: 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 Other Start: 07-17-2023 Patient encounter procedure Sanyakyle Tineo [facility] Start: 07-10-2023 End: 07-10-2023 [facility] Start: 05-18-2023 End: 05-18-2023 ambulatory [facility] Start: 05-11-2023 End: 05-11-2023 ambulatory Sanya Tineo Other [employer] Other Start: 05-11-2023 Office outpatient vi sit 15 minutes Sanya Tineo [facility] Start: 05-09-2023 Telephone encounter Sanya Rivka [facility] Start: 05-09-2023 End: 05-10-2023 ambulatory MARGARET ALVAREZ [employer] Other Start: 05-08-2023 End: 05-08-2023 ambulatory Sanya Tineo Other [employer] Other Start: 05-08-2023 Telephone encounter Sanya Rivka [facility] Start: 04-17-2023 End: 04-17-2023 ambulatory Sanya Tineo Other [employer] Other Start: 04-17-2023 Office outpatient vi sit 15 minutes Sanya Tineo [facility] Start: 04-11-2023 End: 04-11-2023 ambulatory [facility] Start: 04-04-2023 Evaluation and manag ement of inpatient [facility] Start: 04-03-2023 End: 04-04-2023 Encounter for preprocedural cardiovascular examination [facility] Start: 04-03-2023 End: 04-04-2023 Evaluation and management of inpatient [facility] Start: 2023 End: 2023 ambulatory [facility] Start: 02-23-2023 End: 02-24-2023 ambulatory MARGARET [facility] Start: 02-21-2023 End: 02-21-20[facility] Start: 02-09-2023 End: 02-09-2023 ambulatory Sanya Tineo Other [employer] Other Start: 02-09-2023 Office outpatient vi sit 25 minutes Sanya Tineo [facility] Start: 02-07-2023 Evaluation and manag ement of inpatient MARGARET [facility] Start: 02-05-2023 Evaluation and manag ement of inpatient [facility] Start: 02-05-2023 Evaluation and manag ement of inpatient ANDREA [facility] Start: 02-05-2023 End: 02-07-2023 Evaluation and management of inpatient [facility] Start: 01-23-2023 End: 01-23-2023 ambulatory MANDI BRITTANY [facility] Start: 01-17-2023 End: 01-17-2023 ambulatory [facility] Start: 12-05-2022 End: 12-05-2022 ambulatory Sanya Tineo Other [employer] Other Start: 12-05-2022 Telephone encounter Sanya Tineo [facility] Start: 12-04-2022 End: 12-04-2022 ambulatory Sanya Tineo Other [employer] Other Start: 12-04-2022 Telephone encounter Sanya Tineo [facility] Start: 10-06-2022 End: 10-07-2022 ambulatory SHARITA AKDALTONA Facility: Start: 10-06-2022 Encounter for preprocedural cardiovascular examination [facility] Start: 09-12-[address] SANYA TINEO Facil ity:[facility] Start: 09-10-2022 End: 09-10-[address] MICHELE GOLDSMITH . Facility:[facility] Start: 09-08-2022 End: 09-08-2022 ambulatory Sanya Tineo Other [employer] Other Start: 09-08-2022 Office outpatient vi sit 25 minutes Sanya Tineo [facility] Start: 06-03-2022 End: 06-04-[address] SANYA TINEO Facility:[facility] Start: 05-23-2022 End: 05-24-2022 ambulatory DIAMOND HILARIO Facility:[facility] Start: 05-16-2022 End: 05-17-[address] SANYA TINEO Facility:[facility] Start: 04-07-2022 End: 04-08-2022 ambulatory SHARITA AKKINJosé Luis Facility:[facility] Start: 11-25-2021 End: 11-26-2021 ambulatory SHARITA AKKINA Facility:[facility] Start: 07-08-2018 End: 07-09-2018 Patient encounter procedure DEFAULT PHYSICIAN Facility:[facility] Start: 04-15-2018 End: 04-16-2018 Patient encounter SADI WALLACE [facility] Procedures Date Procedure Procedure Detail Performing Clinician Start: 02-11-2024 Bacteria identified in Urine by Culture MD Sanya Tineo Work Phone: Start: 01-30-2024 Positron emission tomography with computed [...] of malignant disease. Start: 12-20-2023 DISCHARGE PATIENT SMOOTH COELHO Start: 12-20-2023 ENDOSCOPIC ULTRASOUND (UPPER) SMOOTH PEREZA RY Start: 12-20-2023 Esophagogastroduodenoscopy SMOOTH PEREZARY Start: 12-20-2023 CYTOLOGY CONSULTATION (NON-GYNECOLOGIC) [facility] Start: 12-20-2023 SURGICAL PATHOLOGY EXAM SMOOTH [facility] Start: 12-20-2023 Egd intrmural needle aspir/biop altered anatomy Smooth Coelho MD Work Phone: Start: 12-20-2023 Glucose [Mass/volume] in Serum or Plasma SMOOTH COELHO Start: 12-20-2023 PLACE IN OUTPATIENT/HOSPITAL AMBULATORY SURGERY [...] Start: 12-19-2024 Diabetes mellitus screening Diabetes Screening [facility] Start: 02-29-2024 Patient referral [facility] Work Phone: Start: 01-17-2024 Patient referral [facility] Work Phone: Start: 01-07-2024 End: 01-07-2024 Patient encounter procedure 01/07/2024 1:20 PM EDT Appointment [address] [id number] [facility] Start: 01-03-2024 End: 01-02-2025 Guardant 360; Other-indicate in comment; Guardant - Miscellaneous Test [facility] Service Area Work Phone: Comment on above: Expected: 01/03/2024 (Approximate), Expi res: 01/02/2025 Start: 01-03-2024 End: 01-02-2025 Research Collection: 10mL Red Clot Activator - Clinical Collect [facility] Work Phone: Comment on above: Expected: 01/03/2024 (Approximate), Expi res: 01/02/2025 Start: 10-28-2023 COVID-19 Vaccine ( season) COVID-19 Vaccine () [facility] Start: 10-03-2023 End: 10-03-2023 Patient encounter procedure 10/03/2023 11:10 AM EST Office Visit [facility] [address] [facility] [address] [place] [id number] Jennifer Morales MD [address] [facility] [address] [place], [place] [id number] [facility] Start: 06-01-2021 Pneumococcal Vaccine: 65+ Years (2 - PPSV23 or PCV20) Pneumococcal Vaccine: 65+ Years (2 - PPSV23 or PCV20) [facility] Start: 06-01-2021 Pneumococcal Vaccine: 65+ Years (2 of 2 - PPSV23 or PCV20) Pneumococcal Vaccine: 65+ Years (2 of 2 - PPSV23 or PCV20) [facility] Start: 1995 Zoster Vaccines (1 of 2) Zoster Vaccines (1 of 2) [facility] Start: 1967 DTaP/Tdap/Td Vaccines (1 - Tdap) DTaP/Tdap/Td Vaccines (1 - Tdap) [facility] Start: 1963 Hepatitis C screening Hepatitis C Screening [facility] Start: 1945 Lipid panel Lipid Panel [facility] Start: 1945 Medicare Annual Wellness Visit Medicare Annual Wellness Visit (AWV) [facility] Start: 1945 Screening for osteoporosis Bone Density Scan [facility] End: 12-20-2023 Cancer Ag 19-9 [Units/volume] in Serum or Plasma Cancer Antigen 19-9 Lab Routine Once (Lab) for 1 Occurrences starting 12/20/2023 until 12/20/2023 [facility] Work Phone: Comment on above: Once (Lab) for 1 Occurrences starting until 12/20/2023 Cancer Ag 19-9 [Unit s/volume] in Serum or Plasma [facility] End: 12-20-2023 Carcinoembryonic Ag [Mass/volume] in Serum or Plasma Carcinoembryonic Antigen Lab Routine Once (Lab) for 1 Occurrences starting 12/20/2023 until 12/20/2023 [facility] Work Phone: Comment on above: Once (Lab) for 1 Occurrences starting until 12/20/2023 End: 12-20-2023 CBC panel - Blood by Automated count CBC Lab Routine Once (Lab) for 1 Occurrences starting 12/20/2023 until 12/20/2023 [facility] Work Phone: Comment on above: Once (Lab) for 1 Occurrences starting until 12/20/2023 End: 12-20-2023 Comprehensive metabolic 2000 panel - Serum or Plasma Comprehensive metabolic panel Lab Routine Once (Lab) for 1 Occurrences starting 12/20/2023 until 12/20/2023 [facility] Work Phone: Comment on above: Once (Lab) for 1 Occurrences starting until 12/20/2023 Comprehensive metabo lic 2000 panel - Serum or Plasma [facility] Comprehensive metabo lic 2000 panel - Serum or Plasma [facility] End: 12-20-2023 Esophagogastroduodenoscopy [facility] Service Area Work Phone: Comment on above: Once for 1 Occurrences starting 12/20/19 until 12/20/2023 Magnetic resonance cholangiopancreatography [facility] End: 12-20-2023 Moderate Sedation Moderate Sedation Procedures Routine Once for 1 Occurrences starting 12/20/2023 until 12/20/2023 [facility] Service Area Work Phone: Comment on above: Once for 1 Occurrences starting 12/20/19 24 until 12/20/2023 Non-gynecological cy tology method study [facility] Work Phone: Comment on above: Release Upon Ordering for 1 Occurrences starting 12/20/2023, 1 completed Patient Education Fluorouracil (Systemic) Leucovorin Calcium Oxaliplatin [facility] Work Phone: Patient referral [facility] Work Phone: Surgical pathology study [facility] Work Phone: Comment on above: Release Upon Ordering for 1 Occurrences starting 12/20/2023, 1 completed End: 01-07-2024 XR Chest 2 Views [facility] Service Area Work Phone: Comment on above: Once for 1 Occurrences starting 01/07/20 24 until 01/07/2024 [facility] Immunizations Immunization Date Immunization Notes Care Provider [facility] 06-28-2022 COVID-19 Pfizer (Pediatric) Sanya Tineo Other [facility] 06-16-2022 influenza virus vaccine, split virus (incl. purified surface antigen) Sanya Tineo Other [employer] Other 06-16-2022 influenza virus vaccine, unspecified formulation MD Sanya Tineo Work Phone: [facility] 09-03-2020 COVID-19 Vaccine Moderna - Documentation Purposes Only Sanya Tineo Other [facility] 04-26-2020 influenza virus vaccine, split virus (incl. purified surface antigen) Sanya Tineo Other [employer] Other 04-26-2020 influenza virus vaccine, unspecified formulation MD Sanya Tineo Work Phone: [facility] 06-20-2015 influenza virus vaccine, split virus (incl. purified surface antigen) Sanya Tineo Other [employer] Other 06-20-2015 influenza virus vaccine, unspecified formulation MD Sanya Tineo Work Phone: [facility] 06-01-2015 pneumococcal conjuga te vaccine, 13 valmallory Tineo Other [facility] Payers Date Payer Category Payer Self-pay 2017 Medicare [id number] 1959 Medicare [id number] 2. [id number] 1945 Unknown [id number] 2.16.8 40.1.434623.3.579.2.647 1945 Unknown [id number] 2.16.84 0.1.191188.3.579.2.593 1945 Unknown [id number] 2.16.84 0.1.891103.3.579.2.593 1945 Unknown [id number] 2.16.84 0.1.227974.3.579.2.593 1945 Unknown [id number] 2.16.84 0.1.441232.3.579.2.593 1945 Unknown [id number] 2.16.84 0.1.096911.3.579.2.593 1945 Unknown [id number] 2.16.84 0.1.109397.3.579.2.593 1945 Unknown [id number] 2.16.84 0.1.622847.3.579.2.593 1945 Unknown [id number] 2.16.84 0.1.094863.3.579.2.593 1945 Unknown [id number] 2.16.84 0.1.078214.3.579.2.1259 1945 Unknown [id number] 2.16.84 0.1.326540.3.579.2.1259 1945 Unknown [id number] 2.16.84 0.1.793440.3.579.2.1259 1945 Unknown [id number] 2.16.84 0.1.918877.3.579.2.1259 1945 Unknown [id number] 2.16.840 .1.180413.3.579.2.1259 1945 Unknown [id number] 2.16.8 40.1.385879.3.579.2.1245 1945 Unknown [id number] 2.16.8 40.1.922703.3.579.2.1245 1945 Unknown [id number] 2.16.8 40.1.778621.3.579.2.1246 1945 Unknown [id number] 2.16.84 0.1.520961.3.579.2.1246 1945 Unknown [id number] 2.16.8 40.1.763569.3.579.2.1243 1945 Unknown [id number] 2.16.8 40.1.943635.3.579.2.1243 Medicare Medicare [id number] Unknown Unknown [id number] 2.16.8 40.1.497978.3.579.2.531 Social History Date Type Detail Facility Unknown if ever smoked [facility] Other Start: 07-24-2023 End: 01-03-2024 Sex Assigned At [employer] Other Start: 07-24-2023 End: 02-12-2024 Tobacco smoking status NHIS Never smoked tobacco [facility] Start: 07-24-2023 End: 12-20-2023 Tobacco use and exposure Smokeless tobacco non-user [facility] Start: 08-28-2023 Alcohol intake Ex-drinker (finding) [facility] Start: 07-24-2023 End: 01-03-2024 History of Social function [facility] Start: 1945 Sex Assigned At Not on file [facility] Start: 12-20-2023 End: 01-03-2024 Alcoholic beverage intake Lifetime non-drinker (finding) [facility] Work Phone: Start: 12-20-2023 Sexual orientation Heterosexual (finding) [facility] Work Phone: Start: 12-10-2023 End: 01-07-2024 Exposure to SARS-CoV-2 (event) Not sure [facility] Work Phone: Start: 1945 Sex Assigned At Female [facility] Clinical Notes 06-21-2021 to 01-03-2024 Edwardo Hanna MD - 01/03/2024 1:00 PM EDTDischarge InstructionsPre-Sedation Documentation - Smooth Coelho MD - 12/20/2023 12:10 PM REJITDirk Oneill DO - 08/28/2023 2:30 PM EST [...] Referral placed to Keyla Lua MD at [facility] - Labs today including CBC, CMP, CEA, CA 19-9, lipase, amylase, [id number] I have placed all orders as outlined above. I advised the patient to schedule the tests and follow-up appointment as discussed by contacting the museum service scheduler on the way out or calling [...] Eventually patient was referred to GI at [facility] s/p EGD 12/20/23 that revealed [...] Image CT AP without contrast completed at [facility] Seen and discussed with Dr. Hanna. Arabella Draper MD Hem Onc, PGY-5 documented in this encounter [facility] Work Phone: 12-20-2023 Hospital Discharge instructions Smooth [...] week of having your procedure, call the [facility] to be advised whether a visit to [...] or looks infected. documented in this encounter [facility] Work Phone: 12-20-2023 Miscellaneous Notes Patient: Trisha Parish Pre-sedation Evaluation: Sedation necessary for: Immobility and Analgesia Requesting service: GI SERVICE History of Present Illness: ACUTE PANCREATITIS, ELEVATED LFTS No past medical history on file. Principle problems: There are no problems to display for this patient. Allergies: Allergies Allergen Reactions Demerol [Meperidine] Psychosis GROUP LEADER SEMICONDUCTOR TESTING/Current Medications: (Not in a hospital admission) Current [...] ASA 3 Moderate documented in this encounter [facility] Work Phone: 12-20-2023 Note Formatting of this n ote is different from the original. Patient: Trisha Parish Pre-sedation Evaluation: Sedation necessary for: Immobility and Analgesia Requesting service: GI SERVICE History of Present Illness: ACUTE PANCREATITIS, ELEVATED LFTS No past medical history on file. Principle problems: There are no problems to display for this patient. Allergies: Allergies Allergen Reactions Demerol [Meperidine] Psychosis GROUP LEADER SEMICONDUCTOR TESTING/Current Medications: (Not in a hospital admission) Current [...] clear to auscultation Plan ASA 3 Moderate [facility] Work Phone: 11-30-2023 Note IN Cardiology - [facility] Subjective Trisha Parish is a [...] In September 2022 she was admitted to [facility] with weakness. She was found to [...] presented to the emergency room at the [facility] with dizziness and low blood pressure. [...] No swelling. Cervi (more content not included)... [facility] 08-28-2023 Note Time Out 08/28/2023. 2:47 PM. Confirmed correct patient, procedure, site, and patient consented. Anesthesia Topical anesthesia was used. Anesthetic medications included Lidocaine 2%, Proparacaine 0.5%. Procedure Preparation included 5% betadine to ocular surface, eyelid speculum. Injection: 1.25 mg bevacizumab 100 MG/4ML Route: Intravitreal, Site: Left Eye [facility]: 58145-946-14, Lot: [id number], Expiration date: 10/24/2023, Waste: 0 mL Post-op [...] increased pain, redness, decreased vision or concerns. [facility] 08-28-2023 History of Present illness Narrative Images [...] 100 MG/4ML Route: Intravitreal, Site: Left Eye [facility]: 46409-474-46, Lot: [id number], Expiration date: 10/24/2023, Waste: 0 mL Post-op [...] vision or concerns. documented in this encounter [facility] 07-17-2023 Evaluation note Encounter Date Diagnosis Assessment [...] Z85.3) Handwrote rx for prothesis bra #3 [facility] Other 10-13-2023 NoteUT Cardiology - [facility] Subjective Trisha Parish is a 78 y.o. [...] In September 2022 she was admitted to [facility] with weakness. She was found to [...] presented to the emergency room at the [facility] with dizziness and low blood pressure. [...] and dry. Neurological: General (more content not included)...[facility] 05-11-2023 Evaluation note* Encounter Date Diagnosis Assessment Notes Treatment Notes Treatment Clinical Notes May, Bronchitis (ICD-10 - J40) Complete course of antibiotics. Discussed steroids for dyspnea. was recently ill as well. ER if symptoms worsen or fevers begin over weekend. [facility] Other 10-03-2023 Evaluation note* Encounter Date Diagnosis Assessment Notes Treatment Notes Treatment Clinical Notes May, Cough, unspecified type (ICD-10 - R05.9) [facility] Other 09-12-2023 Evaluation note* Encounter Date Diagnosis Assessment Notes Treatment Notes Treatment Clinical Notes Apr, Other specified postprocedural states (ICD-10 - Z98.890) s/p Aortic valve repair - doing very well. Energy is improving. 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 Other 09-06-2023 NoteUT Cardiology - [facility] Subjective Trisha Parish is a [...] In September 2022 she was admitted to [facility] with weakness. She was found to [...] presented to the emergency room at the [facility] with dizziness and low blood pressure. [...] Behavior: Behavior is cooperati (more content not included)...[facility]08-30-2023 NoteSubjective Patient lying in bed without complaints. Denies chest pain or palpitations. V pacing on ECG monitor. Denies shortness of breath. No supplemental oxygen requirements. Denies numbness, tingling, and weakness to bilateral upper and lower extremities. Afebrile. Objective Patient Vitals for the past 24 hrs: BP Temp Temp src Pulse Resp SpO2 Height Weight 04/04/23 1337 151/58 36.4 ???C (97.5 ???F) [facility] 12 -- 1.626 m (5' 4.02 [...] CT surgery standpoint. Medical management per cardiology team.[facility]08-30-2023 Note04/04/23 1035 Admission Assessment Questions Verify insurance [...] Discharge? Yes Does the patient have a complex case manager assigned to them through their insurance? No Living Arrangement (Current/Prior to Hospitalization) Private residence (3 steps to enter) Does the patient have history of HHC or SNF? Yes (Hx of rehab placement in [place]) Assistive Device Grab bars Patient's goal for [...] link and activate MyChart? MyChart already active [facility]08-29-2023 NoteIndications; Mrs. Robbins is a 78-year-old female [...] the right common femoral Utilizing 2 6 Nicaraguan ProGlide devices 6. Angio-Seal vascular closure in the right femoral, artery Ocean Freight Forwarder; interventional billing machine operator; Toño Balbuena MD Cardiac surgery billing machine operator; Lina Lamas MD ; grapple operator Herve Mayorga MD ; Methods; Procedure was explained to the patient with risks and benefits. She signed informed consent. She was brought to the Nursing Information Systems Coordinator in a fasting state. The procedure was performed the Nursing Information Systems Coordinator under conscious sedation. Both groin areas were prepped and draped in usual fashion. Micropuncture technique and ultrasound guidance was used to access the right common femoral artery and inner cannula angiography was performed following by upsizing to a 6 Nicaraguan by 11 cm sheath. The same was done for for access in the left common femoral artery. Ultrasound guidance was used for micropuncture access in left common femoral vein and 6 Nicaraguan by 11 cm introducer sheath was secured in place. This time we proceeded with preclosure in the right common femoral artery using 2 crossing perclosure devices and the access was then upsized over wire to the 10 Nicaraguan sheath. Heparin was given intravenously and therapeutic ACT was confirmed during the rest of the procedure and additional heparin was given as needed. A 5 Nicaraguan balloontipped pacemaker wire was advanced through the femoral sheath into the right ventricular apex and adequate capture was confirmed. Right common femoral artery was accessed and upsized over an Amplatz extra-stiff wire to the 14 Nicaraguan Medtronic sheath. Through the left common femoral sheath an angled 6 Nicaraguan pigtail catheter was then advanced to the ascending aorta into the 9 coronary cusp. Aortic root angiography was performed and the cause overlap view as determined by prior CT scan measurements. A 6 Nicaraguan AL diagnostic catheter was advanced via the right femoral sheath and using a stiff Glidewire the aortic valve was crossed and the catheter was advanced into the left ventricular cavity and using exchange length J-wire a 6 Nicaraguan angled pigtail catheter was advanced to make [...] valve over the wire across the aortic shinnecock aortic valve and under pacing at 120 [...] and removed outside the body. The 14 Nicaraguan access sheath was placed across the right femoral and 6 Nicaraguan angled pigtail catheter was advanced across the [...] previous placed per (more content not included)... [facility]08-29-2023 NotePatient: Trisha Parish Procedure Information Date/Time: 04/03/23 1100 Procedure: TAVR Location: [facility] PSYCH ASSISTANT 3 / [facility] (Cath) Providers: Tooñ Balbuena MD Clinical information reviewed: Allergies Meds OB Status Physical Exam Airway Mallampati: II TM distance: >3 FB Neck ROM: full Cardiovascular Rhythm: regular Rate: normal Dental Pulmonary Abdominal Anesthesia Plan ASA 3 other (Moderate sedation) Anesthetic plan and risks discussed with patient. Use of blood products discussed with patient who consented to blood products. Additional [facility]-2023 Note IN Cardiology [facility] Subjective Trisha Parish is a [...] In September 2022 she was admitted to [facility] with weakness. She was found to [...] , Rfl: carvedilol (Co (more content not included)...[facility] 02-21-2023 NoteCardiology Clinic Note Subjective Trisha Parish [...] Never Update: 02/21/2023 She was hospitalized at [facility] for 3 days after presenting [...] other elevated She was hospitalized 02/04-02/07/23 at [facility] and underwent coronary angiography and right [...] Date WBC 6.44 02/06 (more content not included)...[facility] 02-09-2023 Evaluation note* Encounter Date Diagnosis Assessment Notes Treatment Notes Treatment Clinical Notes Feb, Nonrheumatic aortic valve stenosis (ICD-10 - I35.0) Discussed followup testing and likely procedure coming up at [facility] at length w pt and Feb, Chronic kidney disease, stage 3 unspecified (ICD-10 - N18.30) Reviewed labs - condition stable Feb, CAD in shinnecock artery (ICD-10 - I25.10) Further f/u w [facility] Cardiology Feb, Essential hypertension (ICD-10 - I10) Improved on present meds. [facility] Other 07-05-2023 NotePhysical Therapy Physical Therapy Evaluation [...] in front. During session, patient confided in tech writer that they felt as though their balance had decreased during this admission and that they were worried about walking due to occasional and unpredictable losses of balance. Patient reported that they thought it could be related to neuropathy at their feet, but were unsure. Patient told tech writer that they wished to address loss [...] with presyncope NSTEMI (non-ST elevated myocardial infarction) ([facility]) Hx of CABG Severe aortic stenosis Past Medical History: Diagnosis Date A-fib ([facility]) Cancer ([facility]) Coronary artery disease Hypertension Myocardial infarct ([facility]) Stroke ([facility]) Past Surgical History: Procedure Laterality Date [...] Level of Function Prior Function Level of [place]: Independent with ADLs and functional transfers Prior [...] Standing Balance Dynamic Darwin (more content not included)...[facility] 02-07-2023 NoteHospital Medicine Discharge Summary Final Discharge [...] Medications These medications were sent to [facility] - [place], [place] - [address], [facility] [address] lisinopril 40 mg tablet NIFEdipine CC 60 [...] Normal activity as tolerate (more content not included)...[facility]07-04-2023 NoteHospital Medicine Daily Progress Note - 02/06/2023 1:29 PM; Room: [address] [place] [address] Admission: 02/04/2023 10:47 PM; Length of stay: 2 days THE HOSPITALIST TEAM PREFERS TO USE [employer] CHAT FOR COMMUNICATION 7AM-7PM. IF I DO NOT RESPOND WITHIN 15 MINUTES, PLEASE PAGE ME/CALL THROUGH THE EXHAUST AND MUFFLER FITTER. FROM 7PM-7AM, PLEASE PAGE [phone](COVR) Code Status: Full Code Discharge Destination: home [...] Cardiac pacemaker in situ Anemia Atrial fibrillation ([facility]) Carotid artery stenosis Essential hypertension Hypertensive disorder Breast CA ([facility]) Type 2 diabetes mellitus ([facility]) Vitamin D deficiency Postural dizziness with presyncope Hx of CABG NSTEMI (non-ST elevated myocardial infarction) ([facility]) Assessment and [...] Results Component Value D (more content not included)...[facility]07-04-2023 Note Attestation signed by Matilda Valentin MD [...] Value Ventricular Rate 72 Atrial Rate 72 MT Interval 162 QRS DURATION 150 QT Interval 464 QTC CALCULATION(BAZETT) 508 P [place] 70 R-[place] -40 T Wave [place] 103 Impression Atrial-sensed ventricular-paced rhythm Abnormal ECG When compared with ECG of 10-SEP-2022 13:04, Electronic ventricular pacemaker has replaced Sinus rhythm Confirmed by Cheryl VALENTIN, MATILDA Robles ([id number]) on 02/05/2023 8:39:37 AM Lab Results Component Value Date TROPONINI 0.25 (HH) 02/05/2023 Complete Echo (TTE) w/wo Imaging Agent, Strain, 3D, Bubble Study Result Date: 02/05/2023 1 1 [facility] [address] [place] [address] [phone] (fax) Echocardiogram-[facility] Name: TRISHA PARISH Study Date: 02/05/2023 09:59 AM B/P: 136 mmHg/65 mmHg HR: 61 bpm Date of : 1945 Location: [facility] Height: 63 in. Age: 77 year(s) [...] cm?? Aortic Va (more content not included)... [facility]07-04-2023 NoteCTA CHEST W AND/OR WO IV CONTRAST [...] 3 cusped view, anterior view and no CRATE BUILDER-CAU view are obtained in 3-D volume rendered [...] diameter of 23 mm. Electronically signed: Fely Carrington.[facility] Comment on above:Order Comment: TAVR [id number] NoteCTA ABDOMEN PELVIS W AND/OR WO IV [...] spondylosis and levoconvex scoliosis. Electronically signed: Fely Carrington.[facility] 02-05-2023 NotePatient: Trisha Parish Procedure Information Date/Time: 02/05/23 1800 Procedures: Coronary angiography Right heart cath Valve assessment - Aortic valve Location: [facility] PSYCH ASSISTANT 3 / [facility] (Cath) Providers: Herve Mayorga MD Clinical information reviewed: Allergies Meds Physical Exam Airway Mallampati: III Cardiovascular Rhythm: regular Dental Pulmonary Abdominal Anesthesia Plan ASA 3 other (Conscious sedation ) intravenous induction Anesthetic plan and risks discussed with patient. Use of blood products discussed with patient who. [facility] [id number] Note Clinical Nutrition Assessment Name: Trisha Parish [...] Goals: intake > 75% meals Alexander Chowdhury RDRegency [facility]07-03-2023 NoteHospital Medicine Daily Progress Note - 02/05/2023 12:08 PM; Room: [address] [place] [address] Admission: 02/04/2023 10:47 PM; Length of stay: 1 days THE HOSPITALIST TEAM PREFERS TO USE [employer] CHAT FOR COMMUNICATION 7AM-7PM. IF I DO NOT RESPOND WITHIN 15 MINUTES, PLEASE PAGE ME/CALL THROUGH THE EXHAUST AND MUFFLER FITTER. FROM 7PM-7AM, PLEASE PAGE [phone](COVR) Code Status: Full Code Discharge Destination: home [...] 1.36 09/10/2022 Lab Results Component Value Date [id number] 177 (L) 09/10/2022 IRON 27 (L) 09/10/2022 TIBC 203 (L) 09/10/2022 Imaging ECG 12 lead Atrial-sensed ventricular-paced rhythm Abnormal ECG When compared with ECG of 10-SEP-2022 13:04, Electronic ventricular pacemaker has replaced Sinus rhythm Confirmed by Cheryl VALENTIN, MATILDA Robles ([id number]) on 02/05/2023 8:39:37 AM Discharge Planning Discharge Planning Has discharge transport been arranged?: No Signed Josr Ray NP Hospital Medicine 02/05/2023 12:08 PMReg[facility]07-03-2023 NoteHospital Medicine History and Physical 02/05/2023 12:23 AM THE HOSPITALIST TEAM PREFERS TO USE [employer] CHAT FOR COMMUNICATION 7AM-7PM. IF I DO NOT RESPOND WITHIN 15 MINUTES, PLEASE PAGE ME/CALL THROUGH THE EXHAUST AND MUFFLER FITTER. FROM 7PM-7AM, PLEASE PAGE [phone](COVR) Chief Complaint Direct transfer History of Present [...] urgency which improved. [facility] with [facility]. Wilks and patient was [...] 02/05/2023 Pre-operative cardiovascular examination, recent myocardial infarction ([facility]) 10/06/2022 Atrial fibrillation ([facility]) 09/20/2022 Carotid artery stenosis 09/20/2022 Cerebrovascular accident ([facility]) 09/20/2022 Coronary arteriosclerosis 09/20/2022 Hypertensive disorder 09/20/2022 Heart block 09/10/2022 Hyperparathyroidism due to renal insufficiency ([facility]) 04/02/2019 Stage 4 chronic kidney disease ([facility]) 04/02/2019 Anemia 02/19/2017 Essential hypertension 02/19/2017 Malignant neoplasm of female breast ([facility]) 02/19/2017 Proteinuria 02/19/2017 Vitamin D deficiency 02/19/2017 Type 2 diabetes mellitus ([facility]) 07/09/2014 Acute renal failure syndrome ([facility]) 11/06/2013 Benign hypertensive renal disease 11/06/2013 Stage 3 chronic kidney disease ([facility]) 11/06/2013 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 Past Medical History Past Medical History: Diagnosis Date A-fib (CMS/HCC) Cancer (CMS/HCC) Coronary artery disease Hypertension Myocardial infarct (CMS/HCC) Stroke (CMS/HCC) Past Surgical History Past Surgical History: Procedure Laterality Date BREAST SURGERY CHOLECYSTECTOMY CORONARY ARTERY BYPASS GRAFT HYSTERECTOMY Social History Social History Socioeconomic Histor (more content not included)...[facility]06-20-2023 NoteUT Electrophysiology Consult Note Reason for visit: s/p PPM for AV block, AF s/p cryomaze HPI: Trisha Parish is a 77 y.o. 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 She was recently admitted to [facility] for weakness, suspected to have a [...] stroke who presented with generalized weakness to [facility]. At [facility], EKG demonstarted a 2:1 AV block with prolonged MT interval 266. Chest x-ray demonstrated possible trace [...] heart rate 59. Patient was transferred to [facility] for further evaluation by cardiology. She [...] mg chemo tablet anastrozole (more content not included)...[facility]06-14-2023 NoteUT Cardiology - [facility] Subjective Trisha Parish is a [...] In September 2022 she was admitted to [facility] with weakness. She was found to [...] capsule in the morning., Disp: , Rfl: [employer] Aestheticsyle Stephy 2 Sensor kit, , Disp: , [...] (Pepcid) 20 mg tablet (more content not included)...[facility]02-03-2023 Evaluation note* Encounter Date Diagnosis Assessment Notes [...] ultrasound thyroid from May 2022 with Trisha. [employer] Other 11-16-2021 NotePROCEDURE REPORT Specimen #: [id number] Submitting Physician: Abner Wheeler MD SPECIMEN SUBMITTED [...] and its performance characteristics determined by [facility] Pathology and Laboratory Medicine [place] ([facility] It has not been cleared or approved by the FDA. 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- Primary documented [facility] encounter [facility]* Diagnosis Abdominal pain, unspecified abdominal location- Primary Abnormal CT scan Other nonspecific (abnormal) findings on radiological and other examinations of body structure Elevated lipase documented in this encounter [facility] Work Phone: Evaluation note* Diagnosis Malignant neoplasm of body of stomach (Multi)- Primary Malignant neoplasm of body of stomach GI cancer (Multi) Malignant neoplasm of ill-defined sites of digestive organs and peritoneum 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) Gastrointestinal complication of procedure documented in this encounter [facility] Work Phone: Evaluation note* Diagnosis Cardiac pacemaker in situ Atrioventricular block, second degree documented in this encounter [facility] Work Phone: Evaluation note* Diagnosis Cardiac pacemaker in situ Atrioventricular block, second degree documented in this encounter [facility] Work Phone: Evaluation note* Diagnosis Onset Date Resolution Status Anemia acute Hypotension acute Mass of pancreas acute Pancreatitis acute Rectal mass acute Stage 3b chronic kidney disease acute Gastric carcinoma acute [facility] Work Phone: Evaluation note* Diagnosis Onset Date Resolution Status Anemia acute Hypotension acute Mass of pancreas acute Pancreatitis acute Rectal mass acute Stage 3b chronic kidney disease acute CAD in [place] artery acute Encounter for coordination of complex care acute Gastric carcinoma acute History of left breast cancer acute History of transcatheter aortic valve replacement (TAV R) acute Mass of pancreas acute Pacemaker acute Stage 3b chronic kidney disease acute Type II diabetes mellitus ac [place] Cancer associated pain acute Encounter for palliative care acute Gastric carcinoma acute [facility] Work Phone: Evaluation note* Diagnosis Onset Date Resolution Status Anemia acute Hypotension acute Mass of pancreas acute Pancreatitis acute Rectal mass acute Stage 3b chronic kidney disease acute CAD in [place] artery acute Encounter for coordination of complex care acute Gastric carcinoma acute History of left breast cancer acute History of transcatheter aortic valve replacement (TAV R) acute Mass of pancreas acute Pacemaker acute Stage 3b chronic kidney disease acute Type II diabetes mellitus ac [place] Cancer associated pain acute Encounter for palliative care acute Gastric carcinoma acute CAD in [place] artery acute Encounter for coordination of complex care acute Gastric carcinoma acute History of left breast cancer acute History of transcatheter aortic valve replacement (TAV R) acute Mass of pancreas acute Pacemaker acute Stage 3b chronic kidney disease acute Type II diabetes mellitus [facility] Work Phone: Evaluation note* Diagnosis Onset Date Resolution Status Anemia acute Hypotension acute Mass of pancreas acute Pancreatitis acute Rectal mass acute Stage 3b chronic kidney disease acute CAD in [place] artery acute Encounter for coordination of complex care acute Gastric carcinoma acute History of left breast cancer acute History of transcatheter aortic valve replacement (TAV R) acute Mass of pancreas acute Pacemaker acute Stage 3b chronic kidney disease acute Type II diabetes mellitus ac [place] Cancer associated pain acute Encounter for palliative care acute Gastric carcinoma acute CAD in [place] artery acute Encounter for coordination of complex care acute Gastric carcinoma acute History of left breast cancer acute History of transcatheter aortic valve replacement (TAV R) acute Hypotension due to hypovolemia acute Mass of pancreas acute Pacemaker acute Stage 3b chronic kidney disease acute Type II diabetes mellitus [place] [facility] Work Phone: Evaluation note* Diagnosis Onset Date Resolution Status Anemia acute Hypotension acute Mass of pancreas acute Pancreatitis acute Rectal mass acute Stage 3b chronic kidney disease acute CAD in [place] artery acute Encounter for coordination of complex care acute Gastric carcinoma acute History of left breast cancer acute History of transcatheter aortic valve replacement (TAV R) acute Mass of pancreas acute Pacemaker acute Stage 3b chronic kidney disease acute Type II diabetes mellitus ac [place] Cancer associated pain acute Encounter for palliative care acute Gastric carcinoma acute CAD in [place] artery acute Encounter for coordination of complex care acute Gastric carcinoma acute History of left breast cancer acute History of transcatheter aortic valve replacement (TAV R) acute Hypotension due to hypovolemia acute Mass of pancreas acute Pacemaker acute Stage 3b chronic kidney disease acute Type II diabetes mellitus [facility] Constipation due to opioid therapy acute Gastric adenocarcinoma acute Hypotension due to hypovolemia acute CAD in [place] artery acute Encounter for coordination of complex care acute Gastric carcinoma acute History of left breast cancer acute History of transcatheter aortic valve replacement (TAV R) acute Hypotension due to hypovolemia acute Mass of pancreas acute Pacemaker acute Pancreatic adenocarcinoma ac [place] Stage 3b chronic kidney disease acute Type II diabetes mellitus [facility] Work Phone: Evaluation note* Diagnosis Onset Date Resolution Status Anemia acute Hypotension acute Mass of pancreas acute Pancreatitis acute Rectal mass acute Stage 3b chronic kidney disease acute CAD in [place] artery acute Encounter for coordination of complex care acute Gastric carcinoma acute History of left breast cancer acute History of transcatheter aortic valve replacement (TAV R) acute Mass of pancreas acute Pacemaker acute Stage 3b chronic kidney disease acute Type II diabetes mellitus ac [place] Cancer associated pain acute Encounter for palliative care acute Gastric carcinoma acute CAD in [place] artery acute Encounter for coordination of complex care acute Gastric carcinoma acute History of left breast cancer acute History of transcatheter aortic valve replacement (TAV R) acute Hypotension due to hypovolemia acute Mass of pancreas acute Pacemaker acute Stage 3b chronic kidney disease acute Type II diabetes mellitus ac [place] Constipation due to opioid therapy acute Gastric adenocarcinoma acute Hypotension due to hypovolemia acute CAD in [place] artery acute Encounter for chemotherapy management acute Gastric carcinoma acute History of left breast cancer acute History of transcatheter aortic valve replacement (TAV R) acute Hypotension due to hypovolemia acute Pacemaker acute Pancreatic adenocarcinoma ac [place] Stage 3b chronic kidney disease acute Type II diabetes mellitus [facility] Work Phone: History general Narrative - Reported* Type Description Date Medical History CAD in [place] artery Medical History Diabetes mellitus ty pe 2, uncontrolled, without complications Medical History Chronic kidney disease, stage 3 unspecified Medical History Elevated glucose Medical History Right thyroid nodule Medical History Menopause Medical History Enlarged thyroid gland Medical History Anxiety, generalized Medical History Essential hypertension Surgical History CHOLECYSTECTOMY 2015 Surgical History LEFT BREAST MASTECTOMY Hospitalization History SEE SURGICAL HX [employer] Other [employer] general Narrative - Reported* Type Description Date Medical History CAD in [place] artery Medical History Diabetes mellitus ty pe 2, uncontrolled, without complications Medical History Chronic kidney disease, stage 3 unspecified Medical History Elevated glucose Medical History Right thyroid nodule Medical History Menopause Medical History Enlarged thyroid gland Medical History Anxiety, generalized Medical History Essential hypertension Medical History Heart attack Surgical History CHOLECYSTECTOMY 2014 Surgical History LEFT BREAST MASTECTOMY Hospitalization History SEE SURGICAL HX [employer] Other Hospital Discharge instructionsAmbulatory Orders* Referral to Palliative Medicine Location: None Selected [facility] Work Phone: Hospital Discharge instructionsAmbulatory Orders* Oncology Histology Time Frame: 1 Day, Location: Determined By Patient [facility] Work Phone: Summary Purpose Family History Relationship Condition Age at Onset Recorded Date/T bailey Not Specified Diabetes mellitus Unknown Not Specified Myocardial infarction Unknown father Unknown Not Specified Unknown Relationship Condition Age at Onset Recorded Date/T bailey Not Specified Diabetes mellitus Unknown mother Myocardial infarction Unknown father Unknown mother Unknown Advance Directives Advance Directive Response Recorded Date/ Time Advance Directives No February 17 8:16pm Advance Directive Response Recorded Date/ Time Advance Directives No February 11 10:48am Reason for Referral Specialty Diagnoses / Procedures Referred By Nnamdi carlson Referred To Contact Radiology Diagnoses Cardiac pacemaker in situ Atrioventricular block, second degree Procedures XR chest 2 views Shanon Martínez MD [address] [facility], [address] [address] Referral ID Status Reason Start Date Expiration Date Visits Requested Visits Authorized [id number] Authorized Perform Procedure 01/03/2024 01/02/2025 1 1 Specialty Diagnoses / Procedures Referred By Nnamdi carlson Referred To Contact Cardiology Diagnoses Cardiac pacemaker in situ Atrioventricular block, second degree Procedures Cardiac device check - In Clinic Shanon Martínez MD [address] [facility], [address] [place] [address] Referral ID Status Reason Start Date Expiration Date Visits Requested Visits Authorized [id number] Pending Review Perform Procedure 01/03/2024 01/02/2025 1 1 Specialty Diagnoses / Procedures Referred By Contac t Referred To Contact Hematology and Oncology Diagnoses Malignant neoplasm of body of stomach (Multi) [place] [address] [place] [address] Keyla Lua MD [address] [place] [address] Referral ID Status Reason Start Date Expiration Date Visits Requested Visits Authorized [id number] Authorized Specialty Services Required 01/03/2024 01/02/2025 1 1 Specialty Diagnoses / Procedures Referred By Contac t Referred To Contact Gastroenterology Diagnoses Abdominal pain, unspecified abdominal location Abnormal CT scan Elevated lipase Procedures Endoscopic Ultrasound (Upper) MT ESOPHAGOSCOPY FLEXIBLE TRANSORAL ULTRASOUND EXAM MT ESOPHAGOSCOPY INTRA/TRANSMURAL NEEDLE ASPIRAT/BX Aman Capellan MD [address] [place] [id number] Referral ID Status Reason Start Date Expiration Date V isits Requested Visits Authorized [id number] Authorized 12/07/2023 12/06/2024 1 1 Specialty Diagnoses / Procedures Referred By Contact Referred To Contact Gastroenterology Diagnoses Abdominal pain, unspecified abdominal location Abnormal CT scan Elevated lipase Procedures EGD MT ESOPHAGOGASTRODUODENOSCOPY TRANSORAL DIAGNOSTIC MT EGD TRANSORAL BIOPSY SINGLE/MULTIPLE Aman Capellan MD [address] [place] [id number] Referral ID Status Reason Start Date Expiration Date V isits Requested Visits Authorized [id number] Authorized 12/07/2023 12/06/[address] Morales [place] - chronic PND Diagnosis 1 Post-nasal drip (R09 .82) Referral Organization [facility] john Referring Provider First Name Sanya Referring Provider Last Name Rivka Referring Provider Specialty Family [facility] Referred Organization [facility] Referred Address ,[place], [place],[address] Referred Provider Specialty Ear, Nose an d Throat Referral Priority Routine Chief Complaint and Reason for Visit Chief Complaint tbh er follow up Amb Documentation Amb Documentation Gastric Adenocarcinoma NEW gastric adenocarinoma Reason for Visit Anemia Hypotension Mass of pancreas Pancreatitis Rectal mass 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 Chief Complaint tbh er follow up Amb Documentation Amb Documentation Gastric Adenocarcinoma NEW gastric adenocarinoma Reason for Visit Anemia Hypotension Mass of pancreas Pancreatitis Rectal mass 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 Encounter for coordination of complex care Gastric carcinoma History of left breast cancer History of transcatheter aortic valve replacement (TAVR) Mass of pancreas Pacemaker Stage 3b chronic kidney disease Type II diabetes mellitus Cancer associated pain Encounter for palliative care Gastric carcinoma Chief Complaint tbh er follow up Amb Documentation Amb Documentation NEW gastric adenocarinoma Follow Up PET Gastric Adenocarcinoma Reason for Visit Anemia Hypotension Mass of pancreas Pancreatitis Rectal mass 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 Encounter for coordination of complex care Gastric carcinoma History of left breast cancer History of transcatheter aortic valve replacement (TAVR) Mass of pancreas Pacemaker Stage 3b chronic kidney disease Type II diabetes mellitus Cancer associated pain Encounter for palliative care Gastric carcinoma CAD in [place] artery Encounter for coordination of complex care Gastric carcinoma History of left breast cancer History of transcatheter aortic valve replacement (TAVR) Mass of pancreas Pacemaker Stage 3b chronic kidney disease Type II diabetes mellitus Chief Complaint tbh er follow up Amb Documentation Amb Documentation NEW gastric adenocarinoma Follow Up PET Gastric Adenocarcinoma hospital f/u Reason for Visit Anemia Hypotension Mass of pancreas Pancreatitis Rectal mass 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 Encounter for coordination of complex care Gastric carcinoma History of left breast cancer History of transcatheter aortic valve replacement (TAVR) Mass of pancreas Pacemaker Stage 3b chronic kidney disease Type II diabetes mellitus Cancer associated pain Encounter for palliative care Gastric carcinoma CAD in [place] artery Encounter for coordination of complex care Gastric carcinoma History of left breast cancer History of transcatheter aortic valve replacement (TAVR) Hypotension due to hypovolemia Mass of pancreas Pacemaker Stage 3b chronic kidney disease Type II diabetes mellitus Chief Complaint tbh er follow up Amb Documentation Amb Documentation NEW gastric adenocarinoma Follow Up PET hospital f/u Gastric Adenocarcinoma Follow Up Reason for Visit Anemia Hypotension Mass of pancreas Pancreatitis Rectal mass 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 Encounter for coordination of complex care Gastric carcinoma History of left breast cancer History of transcatheter aortic valve replacement (TAVR) Mass of pancreas Pacemaker Stage 3b chronic kidney disease Type II diabetes mellitus Cancer associated pain Encounter for palliative care Gastric carcinoma CAD in [place] artery Encounter for coordination of complex care Gastric carcinoma History of left breast cancer History of transcatheter aortic valve replacement (TAVR) Hypotension due to hypovolemia Mass of pancreas Pacemaker Stage 3b chronic kidney disease Type II diabetes mellitus Constipation due to opioid therapy Gastric adenocarcinoma Hypotension due to hypovolemia CAD in [place] artery Encounter for coordination of complex care Gastric carcinoma History of left breast cancer History of transcatheter aortic valve replacement (TAVR) Hypotension due to hypovolemia Mass of pancreas Pacemaker Pancreatic adenocarcinoma Stage 3b chronic kidney disease Type II diabetes mellitus Chief Complaint tbh er follow up Amb Documentation Amb Documentation NEW gastric adenocarinoma Follow Up PET hospital f/u Follow Up Gastric Adenocarcinoma Reason for Visit Anemia Hypotension Mass of pancreas Pancreatitis Rectal mass 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 Encounter for coordination of complex care Gastric carcinoma History of left breast cancer History of transcatheter aortic valve replacement (TAVR) Mass of pancreas Pacemaker Stage 3b chronic kidney disease Type II diabetes mellitus Cancer associated pain Encounter for palliative care Gastric carcinoma CAD in [place] artery Encounter for coordination of complex care Gastric carcinoma History of left breast cancer History of transcatheter aortic valve replacement (TAVR) Hypotension due to hypovolemia Mass of pancreas Pacemaker Stage 3b chronic kidney disease Type II diabetes mellitus Constipation due to opioid therapy Gastric adenocarcinoma Hypotension due to hypovolemia CAD in [place] artery Encounter for chemotherapy management Gastric carcinoma History of left breast cancer History of transcatheter aortic valve replacement (TAVR) Hypotension due to hypovolemia Pacemaker Pancreatic adenocarcinoma Stage 3b chronic kidney disease Type II diabetes mellitus Additional Source Comments INFORMATION SOURCE (unrecogn ized section and content) DATE CREATED AUTHOR 05/01/2018 [facility] DATE CREATED AUTHOR AUTHOR'S ORGANIZ ATION 07/16/2018 [facility] DATE CREATED AUTHOR AUTHOR'S ORGANIZ ATION 06/23/2021 [facility] DATE CREATED AUTHOR AUTHOR'S ORGANIZ ATION 10/10/2022 [facility] DATE CREATED AUTHOR AUTHOR'S ORGANIZ ATION [facility]/20/2023 [facility] DATE CREATED AUTHOR AUTHOR'S ORGANIZ ATION 12/02/2023 [facility] DATE CREATED AUTHOR AUTHOR'S ORGANIZ ATION 01/19/2024 [facility] DATE CREATED AUTHOR AUTHOR'S ORGANIZ ATION 02/21/2024 [facility] DATE CREATED AUTHOR AUTHOR'S ORGANIZ ATION 02/26/2024 [facility] DATE CREATED AUTHOR AUTHOR'S ORGANIZ ATION 03/01/2024 [facility] REASON FOR VISIT (unrecogniz ed section and content) Reason Comments Retinal Injection Specialty Diagnoses / Procedures Referred By Contac t Referred To Contact Gastroenterology Diagnoses Abdominal pain, unspecified abdominal location Abnormal CT scan Elevated lipase Procedures Endoscopic Ultrasound (Upper) MT ESOPHAGOSCOPY FLEXIBLE TRANSORAL ULTRASOUND EXAM MT ESOPHAGOSCOPY INTRA/TRANSMURAL NEEDLE ASPIRAT/BX Aman Capellan MD [address] [address] Referral ID Status Reason Start Date Expiration Date V isits Requested Visits Authorized [id number] Authorized 12/07/2023 12/06/2024 1 1 Reason Comments New Patient Visit Specialty Diagnoses / Procedures Referred By Contac t Referred To Contact Oncology Diagnoses GI cancer (Multi) Sanya Tineo MD [address] [place] [id number] Referral ID Status Reason Start Date Expiration Date Visits Requested Visits Authorized [id number] Authorized Specialty Services Required 01/01/2024 12/31/2024 1 1 Specialty Diagnoses / Procedures Referred By Contac t Referred To Contact Cardiology Diagnoses Cardiac pacemaker in situ Atrioventricular block, second degree Procedures Cardiac device check - In Clinic Shanon Martínez MD [address] [facility], [address] [place] [address] Referral ID Status Reason Start Date Expiration Date Visits Requested Visits Authorized [id number] Pending Review Perform Procedure 01/03/2024 01/02/2025 1 1 Specialty Diagnoses / Procedures Referred By Contac t Referred To Contact Radiology Diagnoses Cardiac pacemaker in situ Atrioventricular block, second degree Procedures XR chest 2 views Shanon Martínez MD [address] [employer] [facility], [address] [address] Referral ID Status Reason Start Date Expiration Date Visits Requested Visits Authorized [id number] Authorized Perform Procedure 01/03/2024 01/02/2025 1 1 Care Teams (unrecognized sec tion and content) Team Status: Active Member Role Status Dates Sanya Tineo MD Primary Care Provider Active Team Status: Inactive Member Role Status Dates Sanya Tineo MD Primary Care Provide r, Attending Provider Active Start: December 05, 2023 End: December 05, 2023 Team Status: Active Member Role Status Dates Sanya Tineo MD Primary Care Provider Active Start: December 06, 2023 Geri Gonzales Attending Provider Active Start: thomas 2023 Team Status: Active Member Role Status Dates Sanya Tineo MD Primary Care Provide r, Attending Provider Active Start: January 01, 2024 Team Status: Active Member Role Status Dates Sanya Tineo MD Primary Care Provider Active Start: January 14, 2024 Chey Amezcua LPN Attending Provider Active St art: January 14, 2024 Team Status: Inactive Member Role Status [...] MD Primary Care Provider Active Start: February 10, 2024 Marly Castillo MD Attending Provider Active Sta rt: February 10, 2024 Team Status: Active Member Role Status Dates Sanya Tineo MD Primary Care Provider Active Start: February 11, 2024 David Whelan MD Attending Provider Active Star t: February 11, 2024 Team Status: Active Member Role Status Dates Sanya Tineo MD Primary Care Provider Active Start: February 12, 2024 David Whelan MD Attending Provider Active Star t: February 12, 2024 Team Status: Inactive Member Role Status Dates Sanya Tineo MD Primary Care Provide r, Attending Provider Active Start: February 18, 2024 End: February 18, 2024 Team Status: Inactive Member Role Status Dates Sanya Tineo MD Primary Care Provider Active Start: February 29, 2024 End: February 29, 2024 Keyla Lua MD Attending Provider Active Start: February 29, 2024 End: February 29, 2024 Team Status: Active Member Role Status Dates Sanya Tineo MD Primary Care Provider Active Start: February 29, 2024 Keyla Lua MD Attending Provider Active Start: February 29, 2024 NON STAFF Referring Provider Active Start: 2023 Team Status: Inactive Member Role Status Dates Sanya Tineo MD Primary Care Provider Active Start: March 04, 2024 End: March 04, 2024 Shannon Fagan RN Attending Provider Active Start : March 04, 2024 End: March 04, 2024 Patient Support Associate Relationship Specialty Start Date End Date Sanya Tineo MD [address] [facility] [place] [address] PCP - General Family Medicine 02/20/23 Patient Support Associate Relationship Specialty Start Date End Date Sanya Tineo MD [address] [place] [address] PCP - General Family Medicine 12/07/23 Aman Capellan MD [address] [place] [id number] Referring Physician Gastroenterology 12/07/23 Patient Support Associate Relationship Specialty Start Date End Date Sanya Tineo MD [address] [place] [address] PCP - General Family Medicine 12/07/23 Aman Capellan MD [address] [address] Referring Physician Gastroenterology 12/07/23 [place] [address] [place] [address] Consulting Physician Hematology and Oncology 01/03/24 Patient Support Associate Relationship Specialty Start Date End Date Sanya Tineo MD [address] [place] [address] PCP - General Family Medicine 12/07/23 Aman Capellan MD [address] [place] [id number] Referring Physician Gastroenterology 12/07/23 [place] [address] [place] [address] Consulting Physician Hematology and Oncology 01/03/24 Patient Support Associate Relationship Specialty Start Date End Date Sanya Tineo MD [address] [place] [address] PCP - General Family Medicine 12/07/23 Aman Capellan MD [address] [address] Referring Physician Gastroenterology 12/07/23 [place] [address] [place] [address] Consulting Physician Hematology and Oncology 01/03/24 Team [...] 2023 Geri Gonzales Attending Provider Active Start: Ca 2023 Team Status: Active Member Role Status [...] NON STAFF Referring Provider Active Start: 2023 Team Status: Inactive Member Role Status [...] Provider Active Start: Naomi 2023 Team Status: Active Member Role Status Dates Sanya Tineo MD Primary Care Provider Active Start: February 10, 2024 Marly Castillo MD Attending Provider Active Sta rt: February 10, 2024 Team Status: Active Member Role Status Dates Sanya Tineo MD Primary Care Provider Active Start: February 11, 2024 David Whelan MD Attending Provider Active Star t: February 11, 2024 Team Status: Active Member Role Status Dates Sanya Tineo MD Primary Care Provider Active Start: February 12, 2024 David Whelan MD Attending Provider Active Star t: February 12, 2024 Team Status: Inactive Member Role Status Dates Sanya Tineo MD Primary Care Provide r, Attending Provider Active Start: February 18, 2024 End: February 18, 2024 Team Status: Active Member Role Status Dates Sanya Tineo MD Primary Care Provider Active Start: February 29, 2024 Keyla Lua MD Attending Provider Active Start: February 29, 2024 NON STAFF Referring Provider Active Start: Naomi 2023 Team Status: Inactive Member Role Status Dates Sanya Tineo MD Primary Care Provider Active Start: February 29, 2024 End: February 29, 2024 Keyla Lua MD Attending Provider Active Start: February 29, 2024 End: February 29, 2024 Team Status: Inactive Member Role Status Dates Sanya Tineo MD Primary Care Provider Active Start: March 04, 2024 End: March 04, 2024 Shannon Fagan RN Attending Provider Active Start : March 04, 2024 End: March 04, 2024 Goals (unrecognized section and content) Goals may [...] BE BASED ON THE PRIMARY CLINICAL RECORDS. [employer] provides no warranty or guarantee of the accuracy or completeness of information in this document.
--- NOTE | 2024-03-05 15:45 | XR_ITS ---
The [address] [address] Patient Name: ELIJAH WELCH MRN: [id number] date: 1945 Sex: F Assigned Patient Location: [facility] Current Patient Location: [facility] Accession/Order Number: [id number] Exam Date: 03/05/2024 15:30 Report Date: 03/05/2024 16:24 At the request of: EBONY PEDERSON Procedure: XR acute abdomen series EXAM: XR acute abdomen series HISTORY: Adenocarcinoma Pancreas, Constipation Due To Opioid Therapy COMPARISON: 02/12/2024 TECHNIQUE: Chest X-ray AP, 1 view FINDINGS: Support devices: Left-sided pacemaker, median sternotomy wires and aortic valve prosthesis are unchanged in position. Lungs/pleura: No consolidation, effusion, or pneumothorax. Heart and mediastinum: Normal contours. Bones: No acute abnormality identified. Degenerative changes of lumbar spine. Bowel: Moderate to large volume colonic stool is demonstrated. No bowel dilatation. XR/XR acute abdomen series IMPRESSION: Constipation. Electronically authenticated by: CON MONTEZ Date: 03/05/2024 16:24
== END 2024-03-05 15:28 | disposition home or self-care (01) ==
LOC: RAD 15:27
PROVIDERS: PCP Family Medicine
DX: C25.9 Malignant neoplasm of pancreas, unspecified (principal); K59.03 Drug induced constipation; T40.2X5A Adverse effect of other opioids, initial encounter
CPT/HCPCS: 74022